=== PATIENT | male | born 1950 | race American Indian/Alaskan Native ===

== ENCOUNTER 2017-01-20 11:28 | Observation (INO) | payer MEDICARE, OTHER ==
--- NOTE | 2017-01-20 12:01 | ED PDOC ---
Arrival/HPI - General Chief Complaint: Abnormal Labs Time Seen by Provider: 01/20/17 11:30 Historian: Patient - History of Present Illness Narrative History of Present Illness (Text): 01/20/17 11:52 A 66 year old male whose past medical history includes, anemia, renal transplant , and blood transfusions, presents to the emergency department for medical clearance by his PMD for anemia. 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 The patient states that he is "mildly fatigued". The patient denies fevers, chills, headache, dizziness, cough, chest pain, abdominal pain, shortness, of breath, hematochezia, nausea, vomiting, diarrhea, or any other complaints. refuses rectal exam. 01/20/17 15:01 Time/Duration: Prior to Arrival Symptom Onset: Sudden Symptom Course: Unchanged Activities at Onset: Rest, Light Context: Home Past Medical History - Provider Review Nursing Documentation Reviewed: Yes - Cardiac Hx Cardiac Disorders: Yes Hx Hypertension: Yes - Pulmonary Hx Respiratory Disorders: No - Neurological Hx Neurological Disorder: No - HEENT Hx HEENT Disorder: Yes (wears glasses) - Renal Hx Renal Disorder: Yes Hx Dialysis: Yes (left arm fistula) Type of Dialysis Access: left arm fistula Date of Last Dialysis Treatment: 10/08/06 Other/Comment: Kidney transplant - Endocrine/Metabolic Hx Endocrine Disorders: Yes Hx Diabetes Mellitus Type 2: Yes - Hematological/Oncological Hx Blood Disorders: Yes Hx Anemia: Yes - Integumentary Hx Dermatological Disorder: No - Musculoskeletal/Rheumatological Hx Musculoskeletal Disorders: No - Gastrointestinal Hx Gastrointestinal Disorders: No - Genitourinary/Gynecological Hx Genitourinary Disorders: Yes Other/Comment: bilateral inguinal hernias (repaired) - Psychiatric Hx Psychophysiologic Disorder: No Hx Substance Use: No - Surgical History Hx Kidney Transplant: Yes Other/Comment: Aortic valve replacement Family/Social History - Physician Review Nursing Documentation Reviewed: Yes Family/Social History: No Known Family HX Smoking Status: Former Smoker Hx Alcohol Use: No Hx Substance Use: No Allergies/Home Meds Allergies/Adverse Reactions: Allergies No Known Allergies Allergy (Verified 01/20/17 11:38) Home Medications: Home Meds Medication Instructions Recorded Confirmed Cinacalcet [Sensipar] 30 mg PO DAILY 11/20/16 01/20/17 Clonidine HCl [Catapres] 0.3 mg PO BID 11/20/16 01/20/17 Cyanocobalamin (Vitamin B-12) 1,000 mcg PO DAILY 11/20/16 01/20/17 [Vitamin B-12] Epoetin Wilmar [Procrit] 40,000 units SQ Q30D 11/20/16 01/20/17 Ezetimibe [Zetia] 10 mg PO DAILY 11/20/16 01/20/17 Furosemide [Lasix] 40 mg PO BID 11/20/16 01/20/17 Glimepiride [amaRYL] 2 mg PO DAILY 11/20/16 01/20/17 Hydralazine HCl [Hydralazine HCl] 25 mg PO BID 11/20/16 01/20/17 Metoprolol Tartrate [Lopressor] 100 mg PO BID 11/20/16 01/20/17 Mycophenolate [Cellcept Cap] 500 mg PO BID 11/20/16 01/20/17 Pravastatin Sodium [Pravachol] 40 mg PO DAILY 11/20/16 01/20/17 Prednisone [Nga] 5 mg PO DAILY 11/20/16 01/20/17 Sulfamethoxazole/Trimethoprim 1 tab PO MWF 11/20/16 01/20/17 [Bactrim DS Tab] Tacrolimus [Prograf Cap] 1 mg PO QPM 11/20/16 01/20/17 Tacrolimus [Prograf Cap] 2 mg PO QAM 11/20/16 01/20/17 amLODIPine [Norvasc] 10 mg PO BID 11/20/16 01/20/17 humALOG 20 units SQ DAILY 11/20/16 01/20/17 Ferrous Gluconate [Fergon] 324 mg PO BID 01/20/17 01/20/17 Review of Systems - Physician Review All systems were reviewed & negative as marked: Yes - Review of Systems Constitutional: absent: Fevers, Night Sweats Respiratory: absent: SOB, Cough Cardiovascular: absent: Chest Pain Gastrointestinal: absent: Abdominal Pain, Diarrhea, Nausea, Vomiting, Hematochezia Neurological: absent: Headache, Dizziness Physical Exam Vital Signs Reviewed: Yes Vital Signs Temp Pulse Resp BP Pulse Ox 01/20/17 11:37 98.9 F 60 16 128/69 99 Temperature: Afebrile Blood Pressure: Normal Pulse: Regular Respiratory Rate: Normal Appearance: Positive for: Well-Appearing, Non-Toxic, Comfortable Pain Distress: None Mental Status: Positive for: Alert and Oriented X 3 - Systems Exam Head: Present: Atraumatic, Normocephalic Pupils: Present: PERRL Extroacular Muscles: Present: EOMI Conjunctiva: Present: Other (mild conjuctival pallor) Mouth: Present: Moist Mucous Membranes Neck: Present: Normal Range of Motion Respiratory/Chest: Present: Clear to Auscultation, Good Air Exchange. No: Respiratory Distress, Accessory Muscle Use Cardiovascular: Present: Regular Rate and Rhythm, Normal S1, S2. No: Murmurs Abdomen: Present: Normal Bowel Sounds. No: Tenderness, Distention, Peritoneal Signs Back: Present: Normal Inspection Upper Extremity: Present: Normal Inspection. No: Cyanosis, Edema Lower Extremity: Present: Normal Inspection. No: Edema Neurological: Present: GCS=15, CN II-XII Intact, Speech Normal Skin: No: Normal Color (mildy pale appearing skin) Psychiatric: Present: Alert, Oriented x 3, Normal Insight, Normal Concentration Medical Decision Making ED Course and Treatment: 01/20/17 12:03 Impression: A 66 year old male advised to come in by PMD for anemia and medical clearance. Plan: -- EKG -- Labs -- Reassess and disposition Prior Visits: Notes and results from previous visits were reviewed. Progress Notes: 01/20/17 12:06: EKG: Ordered, reviewed, and independently interpreted the EKG. Rate : 57 BPM Rhythm : Bradycardic Interpretation : Lateral T/Q- waves Comparison : No previous EKG for comparison. 01/20/17 15:[address] rebollar aware. rquest 2 units. pt declines rectal exam. ekg no previous. trop neg. stable for floor - Lab Interpretations Lab Results: 01/20/17 12:00 01/20/17 12:00 Lab Results 01/20/17 12:00: Blood Type O POSITIVE, Antibody Screen Negative, Crossmatch See Detail, BBK History Checked No verified bt 01/20/17 12:00: Sodium 142, Potassium 4.6, Chloride 103, Carbon Dioxide 24, Anion Gap 20, BUN 68 H, Creatinine 4.5 H, Est GFR ( Amer) 16, Est GFR ( Non-Af Amer) 13, Random Glucose 272 H, Calcium 8.2 L, Total Bilirubin 0.4, AST 44, ALT 24, Alkaline Phosphatase 88, Lactate Dehydrogenase 1612 H, Total Creatine Kinase 141, Troponin I 0.03, Total Protein 6.5, Albumin 4.3, Globulin 2.2, Albumin/Globulin Ratio 2.0 H 01/20/17 12:00: PT 11.3, INR 1.05, APTT 28.4 01/20/17 12:00: WBC 6.8, RBC 2.84 L, Hgb 6.9 L*, Hct 23.9 L, MCV 84.2, MCH 24.3 L, MCHC 28.9 L, RDW 19.7 H, Plt Count 179, Gran % 87.5 H, Lymph % (Auto) 7.7 L, [place] % (Auto) 4.3, Eos % (Auto) 0.4 L, Baso % (Auto) 0.1, Gran # 5.91, Lymph # 0.5 L, [place] # 0.3, Eos # 0.0, Baso # 0.01 I have reviewed the lab results: Yes - EKG Interpretation Interpreted by ED Physician: Yes Type: 12 lead EKG - Medication Orders Current Medication Orders: Amlodipine Besylate (Norvasc) 10 mg PO BID [place] Atorvastatin Calcium (Lipitor) 10 mg PO DIN [place] Cinacalcet (Sensipar) 30 mg PO DAILY [place] Clonidine HCl (Catapres) 0.3 mg PO BID [facility]1983 Cyanocobalamin (Vitamin B12 1000 Mcg Tab) 1,000 mcg PO DAILY [place] Darbepoetin Wilmar (Aranesp) 40,000 mcg SC Q30D [place] Ezetimibe (Zetia) 10 mg PO DAILY [place] Ferrous Gluconate (Fergon) 324 mg PO BID [place] Furosemide (Lasix) 40 mg PO BID [facility] Home Med (Home Med) 0 unit SC DAILY [place] Hydralazine HCl (Apresoline) 25 mg PO BID [place] Metoprolol Tartrate (Lopressor) 100 mg PO BID [place] Mycophenolate Mofetil (Cellcept Cap) 500 mg PO BID [place] Pantoprazole Sodium (Protonix Ec Tab) 20 mg PO 0600,1600 [place] Prednisone (Prednisone Tab) 5 mg PO DAILY [place] Tacrolimus (Prograf Cap) 1 mg PO QPM [place] Tacrolimus (Prograf Cap) 2 mg PO QAM [place] - Scribe Statement The provider has reviewed the documentation as recorded by the Scribe Natalie Foote Provider Scribe Attestation: All medical record entries made by the [place] were at my direction and personally dictated by me. I have reviewed the chart and agree that the record accurately reflects my personal performance of the history, physical exam, medical decision making, and the department course for this patient. I have also personally directed, reviewed, and agree with the discharge instructions and disposition. Disposition/Present on Arrival - Present on Arrival Any Indicators Present on Arrival: No History of DVT/PE: No History of Uncontrolled Diabetes: No Urinary Catheter: No History of Decub. Ulcer: No History Surgical Site Infection Following: None - Disposition Have Diagnosis and Disposition been Completed?: Yes Diagnosis: Anemia Disposition: HOSPITALIZED Disposition Time: 01:30 Condition: STABLE
[2017-01-20 12:07] LABS: ADD MANUAL DIFF? NO
[2017-01-20 12:13] LABS: BASO # 0.01 K/mm3 (0.0-2.0); BASO % 0.1 % (0.0-3.0); EOS % 0.4 % (1.5-5.0); GRAN # 5.91 (1.4-6.5); GRAN % 87.5 % (50.0-68.0); LYMPH # 0.5 (1.2-3.4); LYMPH % 7.7 % (22.0-35.0); MEAN CELL VOLUME 84.2 fl (80.0-105.0); MEAN CORPUSCULAR HEMOGLOBIN 24.3 pg (25.0-35.0); MEAN CORPUSCULAR HGB CONC 28.9 g/dl (31.0-37.0); MONO # 0.3 (0.1-0.6); MONO % 4.3 % (1.0-6.0); PLATELET COUNT 179 10^3/uL (120.0-450.0); RED CELL DISTRIBUTION WIDTH 19.7 % (11.5-14.5)
[2017-01-20 12:20] LABS: BILIRUBIN,TOTAL 0.4 mg/dL (0.2-1.3); CALCIUM 8.2 mg/dL (8.4-10.5); HEMATOCRIT 23.9 % (42.0-52.0); POTASSIUM 4.6 mmol/L (3.6-5.0); TOTAL PROTEIN 6.5 g/dL (5.8-8.3); WHITE BLOOD COUNT 6.8 10^3/ul (4.5-11.0)
[2017-01-20 12:25] LABS: INR 1.05 (0.93-1.08); PARTIAL THROMBOPLASTIN TIME 28.4 Seconds (23.7-30.8)
[2017-01-20 12:31] LABS: TROPONIN I 0.03 ng/mL
[2017-01-20 13:27] LABS: IRON 92 ug/dL (45-180)
[2017-01-20 13:39] VITALS: BMI 18.0
--- NOTE | 2017-01-20 14:02 | CARD ---
APPROVED REPORT EKG Measurement Heart [id number] VT 150P-11 [id number] <Conclusion> Sinus bradycardia Minimal voltage criteria for LVH, may be normal variant Possible Inferior infarct, age undetermined T wave abnormality, consider lateral ischemia Abnormal ECG
[2017-01-20] MEDS: Pantoprazole 20 mg EC Tab PO SCH (15:45)
[2017-01-20] MEDS ORDERED: Insulin Lispro (humaLOG) LOW Coverage SC SCH ×2 (16:30)
[2017-01-20 17:00] LABS: FOLATE 15.2 ng/mL
--- NOTE | 2017-01-21 04:47 | HP ---
HISTORY OF PRESENT ILLNESS: The patient is a 66-year-old male who has been followed up at [facility] in [place]. The patient had blood work done on 01/16/2017. The patient was notified on 01/17/2017 by the patient's doctor at [facility] of a low hemoglobin. The patient was advised to go to the emergency room or hospital for possible admission for blood transfusion. The patient waited until today to come to the hospital due to his 's illness. The patient states that he is asymptomatic without any complaints. The patient came to the emergency room as a walk-in. REVIEW OF SYSTEMS: The patient's 13-system review is negative for chest pain. Negative for shortness of breath. Negative for nausea, vomiting, or diarrhea. Positive for melena secondary to iron tablets. CODE STATUS: FULL CODE. LIVING WILL AND ADVANCE DIRECTIVE: None. ALLERGIES: NONE. HEIGHT: 5 feet 9 inches. WEIGHT: 120. BMI: 18. HOME MEDICATIONS: Ferrous gluconate 324 mg twice a day; Norvasc 10 mg twice a day; Prograf 2 mg in the morning and 1 mg in the night; Bactrim DS 1 tablet Saturday, Saturday, and Saturday; prednisone 5 mg daily; Pravachol 40 mg daily; CellCept 500 mg twice a day; metoprolol 100 mg twice a day; hydralazine 25 mg twice a day; Humalog 20 units subcutaneously daily via the insulin pump; Amaryl 2 mg daily; Lasix 40 mg twice a day; Zetia 10 mg daily; Procrit 40,000 units monthly; vitamin B12 1000 mcg p.o. daily; clonidine 0.3 mg twice a day; and Sensipar 30 mg daily. SOCIAL HISTORY: Former smoker. Negative for substance abuse. Negative for alcohol. FAMILY HISTORY: Not available. OCCUPATIONAL HISTORY: Disabled. PAST MEDICAL AND SURGICAL HISTORY: History of end-stage renal disease, history of renal dialysis dependent, history of renal transplant, history of aortic valve replacement, history of median sternotomy, history of iron deficiency, status post IV Venofer treatment, history of hypertension, history of dyslipidemia, history of insulin-requiring diabetes mellitus, history of vitamin B12 deficiency, and history of secondary hyperparathyroidism. Past medical history is also significant for history of anemia, history of multiple blood transfusion and IV Venofer infusion, history of left upper extremity AV fistula, history of renal transplant 10 years ago, and history of inguinal hernia surgery. The patient's past medical history is significant for anemia of chronic disease. Past medical history is also significant for chronic kidney disease stage IV, history of uncontrolled diabetes mellitus with hemoglobin A1c of 8.3 in September, history of iron deficiency, history of dyslipidemia, history of proteinuria, microscopic hematuria, history of bilateral lower extremity venous stasis, history of left upper extremity AV fistula, and history of right lower quadrant renal transplant. The patient's past medical history is significant for polycystic kidney disease, history of cholangitis, history of questionable diabetic ketoacidosis, status post renal transplant, history of autosomal dominant polycystic kidney disease, history of hyperosmolar nonketotic syndrome, history of hyperkalemia, history of bovine aortic valve replacement, history of cadaveric renal transplant 10 years ago, history of increase anion gap metabolic acidosis, history of hyponatremia, history of hyperkalemia, history of descending aortic aneurysm, history of post renal transplant diabetes mellitus, and history of possible noncompliance, history of intrahepatic biliary duct dilatation, history of hepatic cyst, history of descending thoracic aorta aneurysm dilatation and aneurysm dilatation of the infrarenal abdominal aorta, history of dissecting thoracic abdominal aneurysm, history of prostatomegaly, history of early dilated common bile duct, 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 PHYSICAL EXAMINATION: GENERAL: The patient is seen and examined in room 374, bed 1. The patient is seen lying in the bed. VITAL SIGNS: T-max 98.9, heart rate 57 to 60, blood pressure 128/69, respirations 18, and O2 sat 99% to 100% on room air. HEENT: Head is normocephalic and atraumatic. HEENT examination shows pale conjunctivae. Dry oral mucosa. NECK: No neck rigidity. CHEST: Kyphosis. Positive median sternotomy surgical scar noted. CARDIOVASCULAR: S1 and S2. Positive systolic murmur, left sternal border, right second intercostal space. ABDOMEN: Soft. Positive bowel sounds,Positive mid abdominal pulsation noted. GENITALIA: Male. RECTAL: Deferred. EXTREMITIES: Show 1+ pitting edema of the lower extremities. No calf tenderness. No Homans sign. VASCULAR: Unable to palpate lower extremity pulses. MUSCULOSKELETAL: Shows a body mass index of 18. Cranial nerves II-XII limited. Motor strength appears to be 5/5. Gait examination is not tested. PSYCHIATRIC: Negative. DIAGNOSTIC DATA: EKG shows sinus rhythm, Q-wave in III, and T-wave inversion in aVL, lead I, V5, and V6. The chest x-ray report is pending. CBC shows a hemoglobin and hematocrit 6.9 and 24, platelet 179, granulocytes of 87% segs. PT and PTT 11.3 and 28.4. Chemistry significant for BUN 68, creatinine 4.5, GFR 16, random glucose 272, calcium 8.2, iron 92, TIBC 302, saturation 30. LDH 1612. Troponin is negative at 0.03. Blood type O positive. The patient was seen in the emergency room by Dr. Willard. The patient was typed and cross matched. The patient was ordered transfusion of PRBC. The patient was seen in the emergency room. The patient was advised by the ER physician for need for hospitalization for packed red blood cell transfusion, which he agreed to. IMPRESSION: 1. Recurrent persistent anemia, microcytic to normocytic anemia, status post IV Venofer treatment. 2. Granulocytosis. 3. Chronic kidney disease stage IV. 4. Insulin-requiring diabetes mellitus with hyperglycemia. 5. Sinus bradycardia with age-indeterminate inferior infarct and lateral coronary ischemic changes. 6. History of descending aortic aneurysm and abdominal aortic aneurysm, status post aortic valve replacement. 7. Mild fatigue. 8. Anemia of chronic kidney disease, etiology undetermined. 9. History of insulin-dependent diabetes mellitus, history of hypertension, history of status post cadaveric renal transplant, history of dyslipidemia, history of hypertension, and history of secondary hyperparathyroidism. PLAN: At this time, the patient was admitted to [facility]. The patient has been ordered iron studies, B12, folate, serial labs ordered, tacrolimus level ordered, consultation with gastroenterology Dr. Cordova and nephrology Dr. Sandoval ordered, transfusion of 2 units of PRBC ordered. The patient has resumed on most of his home medications including hydralazine 25 mg twice a day, Aranesp 40 mcg monthly, clonidine 0.3 mg twice a day, CellCept or mycophenolate 500 mg twice a day, and ferrous gluconate 324 mg twice a day. The patient is to be continued on the insulin pump, which he is using from home and as the patient stated that the insulin pump has been run out until tomorrow morning, then the patient will be started on subcutaneous Humalog 20 units with breakfast and the patient will be started on low-dose sliding scale Humalog. Also, the patient's p.o. Lasix was changed to Lasix 40 IV daily, Lipitor 10 mg daily, Lopressor 100 mg twice a day, Norvasc 10 mg twice a day, prednisone 5 mg daily, Prograf 1 mg in the evening and 2 mg a.m., Protonix 20 twice a day, Sensipar 30 mg daily, vitamin B12 1000 mcg p.o. daily, and Zetia 10 mg daily. Chest x-ray report pending. The patient is on renal diet. The patient has been ordered fingerstick blood sugar. Stool for occult blood ordered. The patient will be ordered KRYSTAL stockings for DVT prophylaxis. The patient has been explained about the details of his medical condition, need for further diagnostic therapeutic interventions was explained and discussed with the patient in layman's language. All questions and concerns were answered to his satisfaction. The patient was advised need for gastroenterology evaluation, upper and lower endoscopy, and further investigation about the causes of anemia. At this time, the patient appears to be a little resistant to the diagnostic data which is explained to him and the clinical scenario which is explained to him and the patient has stated to the nurses and me that he is reluctant to stay beyond tomorrow. I have explained to the patient that his hospitalization may be extended until after tomorrow depending upon the patient's clinical condition, hemodynamic status, and recommendation from all the physicians involved in the care of the patient. Dictated and electronically signed, not read. Mart Knox MD [place]
[2017-01-21] MEDS: Pantoprazole 20 mg EC Tab PO SCH (06:25)
[2017-01-21] MEDS ORDERED: Insulin Lispro (humaLOG) LOW Coverage SC SCH (07:00)
[2017-01-21 07:09] LABS: ADD MANUAL DIFF? NO
[2017-01-21 07:18] LABS: BASO # 0.01 K/mm3 (0.0-2.0); BASO % 0.1 % (0.0-3.0); EOS # 0.1 (0.0-0.7); EOS % 1.5 % (1.5-5.0); GRAN # 5.24 (1.4-6.5); GRAN % 76.2 % (50.0-68.0); HEMATOCRIT 30.5 % (42.0-52.0); MEAN CORPUSCULAR HEMOGLOBIN 25.1 pg (25.0-35.0); MEAN CORPUSCULAR HGB CONC 29.5 g/dl (31.0-37.0); MONO # 0.6 (0.1-0.6); MONO % 8.2 % (1.0-6.0); PLATELET COUNT 155 10^3/uL (120.0-450.0); RED CELL DISTRIBUTION WIDTH 17.4 % (11.5-14.5); WHITE BLOOD COUNT 6.9 10^3/ul (4.5-11.0)
[2017-01-21] MEDS ORDERED: Insulin Lispro 1 UNITS/0.01 ML SC SCH ×2 (07:30→10:00)
[2017-01-21] MEDS: Insulin Lispro (humaLOG) LOW Coverage SC SCH ×2 (07:30→13:13)
[2017-01-21 07:41] LABS: ALB/GLOB RATIO 1.5 (1.1-1.8); BILIRUBIN,DIRECT 0.4 mg/dL (0.0-0.4); BILIRUBIN,TOTAL 0.4 mg/dL (0.2-1.3); CALCIUM 8.4 mg/dL (8.4-10.5); MAGNESIUM 1.7 mg/dL (1.7-2.2); POTASSIUM 3.8 mmol/L (3.6-5.0); TOTAL PROTEIN 5.8 g/dL (5.8-8.3)
--- NOTE | 2017-01-21 08:08 | RAD ---
HISTORY: HTN/AVR COMPARISON: No prior. TECHNIQUE: Chest PA and lateral FINDINGS: LUNGS: No active pulmonary disease. PLEURA: No significant pleural effusion identified. No pneumothorax apparent. CARDIOVASCULAR: No radiographic findings to suggest acute or significant cardiovascular disease. Incidental Finding(s): Postoperative changes related to sternotomy. aortic valve prosthesis identified. Normal. OSSEOUS STRUCTURES: No significant abnormalities. VISUALIZED UPPER ABDOMEN: Normal. OTHER FINDINGS: None. IMPRESSION: No active disease.
[2017-01-21 09:22] VITALS: PULSE 67; RESP 19; TEMP 99; O2SAT 98
[2017-01-21] MEDS ORDERED: INSULIN PUMP SC SCH (10:00)
--- NOTE | 2017-01-21 11:24 | CP.PCM.DIS ---
<IrmaLaine - Last Filed: 01/21/17 12:05> Provider - Provider Date of Admission: 01/20/17 12:44 Attending physician: Mart Knox MD Primary care physician: Dr. Knox Consults: GI: Dr. Garrido Nephro: Dr. Wheeler Time Spent in preparation of Discharge (in minutes): 35 Hospital Course - Lab Results Lab Results: Most Recent Lab Values WBC 6.9 10^3/ul (4.5-11.0) 01/21/17 07:07 RBC 3.59 10^6/uL (3.5-6.1) 01/21/17 07:07 Hgb 9.0 g/dL (14.0-18.0) L D 01/21/17 07:07 Hct 30.5 % (42.0-52.0) L 01/21/17 07:07 MCV 85.0 fl (80.0-105.0) 01/21/17 07:07 MCH 25.1 pg (25.0-35.0) 01/21/17 07:07 MCHC 29.5 g/dl (31.0-37.0) L 01/21/17 07:07 RDW 17.4 % (11.5-14.5) H 01/21/17 07:07 Plt Count 155 10^3/uL (120.0-450.0) 01/21/17 07:07 Gran % 76.2 % (50.0-68.0) H 01/21/17 07:07 Lymph % (Auto) 14.0 % (22.0-35.0) L 01/21/17 07:07 [place] % (Auto) 8.2 % (1.0-6.0) H 01/21/17 07:07 Eos % (Auto) 1.5 % (1.5-5.0) 01/21/17 07:07 Baso % (Auto) 0.1 % (0.0-3.0) 01/21/17 07:07 Gran # 5.24 (1.4-6.5) 01/21/17 07:07 Lymph # 1.0 (1.2-3.4) L 01/21/17 07:07 [place] # 0.6 (0.1-0.6) 01/21/17 07:07 Eos # 0.1 (0.0-0.7) 01/21/17 07:07 Baso # 0.01 K/mm3 (0.0-2.0) 01/21/17 07:07 PT 11.3 Seconds (9.9-11.8) 01/20/17 12:00 INR 1.05 (0.93-1.08) 01/20/17 12:00 APTT 28.4 Seconds (23.7-30.8) 01/20/17 12:00 Sodium 143 mmol/L (132-148) 01/21/17 07:07 Potassium 3.8 mmol/L (3.6-5.0) 01/21/17 07:07 Chloride 108 mmol/L (95-110) 01/21/17 07:07 Carbon Dioxide 22 mmol/L (21-33) 01/21/17 07:07 Anion Gap 17 (10-20) 01/21/17 07:07 BUN 64 mg/dL (7-21) H 01/21/17 07:07 Creatinine 4.0 mg/dL (0.5-1.4) H 01/21/17 07:07 Est GFR ( Amer) 18 01/21/17 07:07 Est GFR (Non-Af Amer) 15 01/21/17 07:07 POC Glucose (mg/dL) 64 mg/dL (65-110) L 01/21/17 07:16 Random Glucose 53 mg/dL (70-110) L 01/21/17 07:07 Calcium 8.4 mg/dL (8.4-10.5) 01/21/17 07:07 Magnesium 1.7 mg/dL (1.7-2.2) 01/21/17 07:07 Iron 92 ug/dL (45-180) 01/20/17 12:59 TIBC 302 ug/dL (261-462) 01/20/17 12:59 % Saturation 30 % (20-55) 01/20/17 12:59 Erythropoietin 67.1 mIU/mL (2.6-18.5) H 01/20/17 12:59 Ferritin 103.0 ng/mL 01/20/17 12:59 Total Bilirubin 0.4 mg/dL (0.2-1.3) 01/21/17 07:07 Direct Bilirubin 0.4 mg/dL (0.0-0.4) 01/21/17 07:07 AST 27 U/L (15-59) 01/21/17 07:07 ALT 23 U/L (7-56) 01/21/17 07:07 Alkaline Phosphatase 61 U/L (38-133) 01/21/17 07:07 Lactate Dehydrogenase 1612 U/L (333-699) H 01/20/17 12:00 Total Creatine Kinase 141 U/L (35-230) 01/20/17 12:00 Troponin I 0.03 ng/mL 01/20/17 12:00 Total Protein 5.8 g/dL (5.8-8.3) 01/21/17 07:07 Albumin 3.5 g/dL (3.0-4.8) 01/21/17 07:07 Globulin 2.3 gm/dL 01/21/17 07:07 Albumin/Globulin Ratio 1.5 (1.1-1.8) 01/21/17 07:07 Vitamin B12 > 1000 pg/mL (239-931) H 01/20/17 12:59 Folate 15.2 ng/mL 01/20/17 12:59 Blood Type O POSITIVE 01/20/17 12:00 Blood Type Confirm O POSITIVE 01/20/17 12:58 Antibody Screen Negative 01/20/17 12:00 Crossmatch See Detail 01/20/17 12:00 BBK History Checked No verified bt 01/20/17 12:00 - Hospital Course Hospital Course: This is a 66Y M with PMH HTN, Autosomal dominant polycystic kidney disease, prior ESRD (not on HD anymore), renal transplant, DM, anemia, aortic valve replacement admitted for anemia. Patient has had multiple blood transfusions as well as iron infusions in the past. He has not had a colonoscopy for more than 10 yrs. Patient had 2U PRBC transfused. Hgb became stable. Nephrology was consulted for CKD. GI was consulted for anemia. Patient refused inpatient colonoscopy as well as rectal exam and will follow up as outpatient. He will follow up with Dr. Cordova (GI), Dr. Wheeler (Nephrology) as well as Dr. Knox, PMD. As per GI, patient will have a colonoscopy this week with Dr. Cordova. Medications as per AUG. - Date & Time of H&P Date of H&P: 01/21/17 Time of H&P: 11:25 Discharge Exam - Head Exam Head Exam: NORMAL INSPECTION - Eye Exam Eye Exam: EOMI, Normal appearance, PERRL Pupil Exam: NORMAL ACCOMODATION - ENT Exam ENT Exam: Mucous Membranes Moist - Respiratory Exam Respiratory Exam: Clear to PA & Lateral, NORMAL BREATHING PATTERN, UNREMARKABLE. absent: Rales, Rhonchi, Wheezes - Cardiovascular Exam Cardiovascular Exam: REGULAR RHYTHM, +S1, +S2. absent: Gallop, Rubs, Systolic Murmur - GI/Abdominal Exam GI & Abdominal Exam: Normal Bowel Sounds, Soft, Unremarkable. absent: Firm, Mass, Rebound, Rigid - Rectal Exam Rectal Exam: Deferred (pt refused) - Extremities Exam Extremities exam: normal inspection - Neurological Exam Neurological exam: Alert, CN II-XII Intact, Oriented x3 - Psychiatric Exam Psychiatric exam: Normal Affect, Normal Mood - Skin Skin Exam: Dry, Intact, Normal Color, Warm Discharge Plan - Discharge Medications Prescriptions: Furosemide [Lasix] 20 mg PO BID #30 tab Furosemide [Lasix] 20 mg PO BID #30 tab - Follow Up Plan Condition: STABLE Disposition: HOME/ ROUTINE Instructions: Anemia (DC), Anemia (GEN) Additional Instructions: 1. Continue Home medications 2. Follow up colonoscopy with Dr. Cordova this week 3. Follow up with Dr. Wheeler (Nurse Examiner) this week 4. Follow up with Dr. Knox in 1 week. DISCHARGE HOME CLEARED BY GI AND NEPHROLOGY. FOLLOW UP < AND WITHIN 1 WEEK RESUME ALL HOME MEDS COPY OF RENAL NON DIALYSIS, MODERATE CARB DIET TO PATIENT UPON DISCHARGE. Referrals: Mart Knox MD [Family Provider] - 1 Week (DISCHARGE HOME CLEARED BY GI AND NEPHROLOGY. FOLLOW UP < AND WITHIN 1 WEEK RESUME ALL HOME MEDS COPY OF RENAL NON DIALYSIS, MODERATE CARB DIET TO PATIENT UPON DISCHARGE.) Dandy Wheeler MD [Staff Provider] - 1 Week (DISCHARGE HOME CLEARED BY GI AND NEPHROLOGY. FOLLOW UP < AND DR.MARIZA WITHIN 1 WEEK RESUME ALL HOME MEDS COPY OF RENAL NON DIALYSIS, MODERATE CARB DIET TO PATIENT UPON DISCHARGE.) Mac Cordova MD [Medical Doctor] - 1 Week (DISCHARGE HOME CLEARED BY GI AND NEPHROLOGY. FOLLOW UP < AND WITHIN 1 WEEK RESUME ALL HOME MEDS COPY OF RENAL NON DIALYSIS, MODERATE CARB DIET TO PATIENT UPON DISCHARGE.) <Mart Knox - Last Filed: 02/27/17 20:29> Provider - Provider Date of Admission: 01/20/17 12:44 Attending physician: Mart Knox MD Hospital Course - Lab Results Lab Results: Most Recent Lab Values WBC 6.9 10^3/ul (4.5-11.0) 01/21/17 07:07 RBC 3.59 10^6/uL (3.5-6.1) 01/21/17 07:07 Hgb 9.0 g/dL (14.0-18.0) L D 01/21/17 07:07 Hct 30.5 % (42.0-52.0) L 01/21/17 07:07 MCV 85.0 fl (80.0-105.0) 01/21/17 07:07 MCH 25.1 pg (25.0-35.0) 01/21/17 07:07 MCHC 29.5 g/dl (31.0-37.0) L 01/21/17 07:07 RDW 17.4 % (11.5-14.5) H 01/21/17 07:07 Plt Count 155 10^3/uL (120.0-450.0) 01/21/17 07:07 Gran % 76.2 % (50.0-68.0) H 01/21/17 07:07 Lymph % (Auto) 14.0 % (22.0-35.0) L 01/21/17 07:07 [place] % (Auto) 8.2 % (1.0-6.0) H 01/21/17 07:07 Eos % (Auto) 1.5 % (1.5-5.0) 01/21/17 07:07 Baso % (Auto) 0.1 % (0.0-3.0) 01/21/17 07:07 Gran # 5.24 (1.4-6.5) 01/21/17 07:07 Lymph # 1.0 (1.2-3.4) L 01/21/17 07:07 [place] # 0.6 (0.1-0.6) 01/21/17 07:07 Eos # 0.1 (0.0-0.7) 01/21/17 07:07 Baso # 0.01 K/mm3 (0.0-2.0) 01/21/17 07:07 PT 11.3 Seconds (9.9-11.8) 01/20/17 12:00 INR 1.05 (0.93-1.08) 01/20/17 12:00 APTT 28.4 Seconds (23.7-30.8) 01/20/17 12:00 Sodium 143 mmol/L (132-148) 01/21/17 07:07 Potassium 3.8 mmol/L (3.6-5.0) 01/21/17 07:07 Chloride 108 mmol/L (95-110) 01/21/17 07:07 Carbon Dioxide 22 mmol/L (21-33) 01/21/17 07:07 Anion Gap 17 (10-20) 01/21/17 07:07 BUN 64 mg/dL (7-21) H 01/21/17 07:07 Creatinine 4.0 mg/dL (0.5-1.4) H 01/21/17 07:07 Est GFR ( Amer) 18 01/21/17 07:07 Est GFR (Non-Af Amer) 15 01/21/17 07:07 POC Glucose (mg/dL) 64 mg/dL (65-110) L 01/21/17 07:16 Random Glucose 53 mg/dL (70-110) L 01/21/17 07:07 Calcium 8.4 mg/dL (8.4-10.5) 01/21/17 07:07 Magnesium 1.7 mg/dL (1.7-2.2) 01/21/17 07:07 Iron 92 ug/dL (45-180) 01/20/17 12:59 TIBC 302 ug/dL (261-462) 01/20/17 12:59 % Saturation 30 % (20-55) 01/20/17 12:59 Erythropoietin 67.1 mIU/mL (2.6-18.5) H 01/20/17 12:59 Ferritin 103.0 ng/mL 01/20/17 12:59 Total Bilirubin 0.4 mg/dL (0.2-1.3) 01/21/17 07:07 Direct Bilirubin 0.4 mg/dL (0.0-0.4) 01/21/17 07:07 AST 27 U/L (15-59) 01/21/17 07:07 ALT 23 U/L (7-56) 01/21/17 07:07 Alkaline Phosphatase 61 U/L (38-133) 01/21/17 07:07 Lactate Dehydrogenase 1612 U/L (333-699) H 01/20/17 12:00 Total Creatine Kinase 141 U/L (35-230) 01/20/17 12:00 Troponin I 0.03 ng/mL 01/20/17 12:00 Total Protein 5.8 g/dL (5.8-8.3) 01/21/17 07:07 Albumin 3.5 g/dL (3.0-4.8) 01/21/17 07:07 Globulin 2.3 gm/dL 01/21/17 07:07 Albumin/Globulin Ratio 1.5 (1.1-1.8) 01/21/17 07:07 Vitamin B12 > 1000 pg/mL (239-931) H 01/20/17 12:59 Folate 15.2 ng/mL 01/20/17 12:59 Tacrolimus (LC/MS/MS) 2.5 mcg/L (5.0-20.0) L 01/20/17 12:59 Blood Type O POSITIVE 01/20/17 12:00 Blood Type Confirm O POSITIVE 01/20/17 12:58 Antibody Screen Negative 01/20/17 12:00 Crossmatch See Detail 01/20/17 12:00 BBK History Checked No verified bt 01/20/17 12:00 Attending/Attestation - Attestation I have personally seen and examined this patient.: Yes I have fully participated in the care of the patient.: Yes I have reviewed all pertinent clinical information, including history, physical exam and plan: Yes
[2017-01-21] MEDS ORDERED: Darbepoetin Alfa 100 mcg/ml Inj SC ONE (11:58)
[2017-01-21 13:14] VITALS: BP 130/78
--- NOTE | 2017-01-21 13:47 | CP.PCM.CON ---
<Delores So - Last Filed: 01/21/17 13:47> History of Present Illness - History of Present Illness History of Present Illness: Seen and examined at the bedside earlier this morning. The chart was reviewed. Request for GI consult: Anemia , aortic valve replacement HPI: This is a 66-year-old male with a past medical history of polycystic kidney status post kidney transplant, chronic renal disease, aortic valve replacement, iron deficiency anemia, patient had outpatient blood work done on January 16, 2017 and notified of abnormal labs and advised to go to the ER by his primary doctor regarding further evaluation of low hemoglobin. the patient did not go for evaluation right away as his was in the hospital. The patient denies any nausea, vomiting, or abdominal pain. No reports of any melena or bright red blood per rectum. His last colonoscopy was greater than 10 years ago prior to his kidney transplant. No complaints of any acid reflux, shortness of breath or chest pain. On admission he came with hemoglobin of 6.9 , status post 2 units of packed RBCs. He did report having outpatient iron infusions. Past medical history: Aortic valve replacement, polycystic kidney, status post kidney transplant, chronic renal disease, iron deficiency anemia diabetes mellitus, dyslipidemia,abdominal aortic aneurysm with aortic dissection Surgical history: Kidney transplant, aortic valve replacement, bilateral inguinal hernia repair, last colonoscopy greater than 10 years ago Family history: Noncontributory at this time Allergies: No known drug allergies Social history: Former smoker, denies EtOH or substance abuse Medications: Reviewed as per MAR ROS: Systems reviewed with positive findings see HPI Past Patient History - Past Social History Smoking Status: Former Smoker - CARDIAC Hx Cardiac Disorders: Yes Hx Hypertension: Yes - PULMONARY Hx Respiratory Disorders: No - NEUROLOGICAL Hx Neurological Disorder: No - HEENT Hx HEENT Problems: Yes (wears glasses) - RENAL Hx Chronic Kidney Disease: Yes Hx Dialysis: Yes (left arm fistula) Type of Dialysis Access: left arm fistula Date of Last Dialysis Treatment: 10/08/06 Other/Comment: Kidney transplant - ENDOCRINE/METABOLIC Hx Endocrine Disorders: Yes Hx Diabetes Mellitus Type 2: Yes - HEMATOLOGICAL/ONCOLOGICAL Hx Blood Disorders: Yes Hx Anemia: Yes - INTEGUMENTARY Hx Dermatological Problems: No - MUSCULOSKELETAL/RHEUMATOLOGICAL Hx Musculoskeletal Disorders: No - GASTROINTESTINAL Hx Gastrointestinal Disorders: No - GENITOURINARY/GYNECOLOGICAL Hx Genitourinary Disorders: Yes Other/Comment: bilateral inguinal hernias (repaired) - PSYCHIATRIC Hx Psychophysiologic Disorder: No Hx Substance Use: No - SURGICAL HISTORY Hx Kidney Transplant: Yes Other/Comment: Aortic valve replacement Meds Home Medications: Home Medication List Medication Instructions Recorded Confirmed Type Cyanocobalamin [Vitamin B12 1000 1,000 mcg PO DAILY tab 01/21/17 Rx mcg Tab] Furosemide [Lasix] 20 mg PO BID #30 tab 01/21/17 Rx Furosemide [Lasix] 20 mg PO BID #30 tab 01/21/17 Rx Allergies/Adverse Reactions: Allergies Allergy/AdvReac Type Severity Reaction Status Date / Time No Known Allergies Allergy Verified 01/20/17 11:38 - Medications Medications: Current Medications Amlodipine Besylate (Norvasc) 10 mg PO BID [facility] Last Admin: 01/21/17 10:26 Dose: 10 mg Atorvastatin Calcium (Lipitor) 10 mg PO DIN [facility] Cinacalcet (Sensipar) 30 mg PO DAILY [facility] Last Admin: 01/21/17 10:27 Dose: 30 mg Clonidine HCl (Catapres) 0.3 mg PO BID [facility] Last Admin: 01/21/17 10:23 Dose: 0.3 mg Cyanocobalamin (Vitamin B12 1000 Mcg Tab) 1,000 mcg PO DAILY [facility] Last Admin: 01/21/17 10:27 Dose: 1,000 mcg Darbepoetin [place] (Aranesp) 40,000 mcg SC Q30D [facility] Ezetimibe (Zetia) 10 mg PO DAILY [facility] Last Admin: 01/21/17 10:27 Dose: 10 mg Ferrous Gluconate (Fergon) 324 mg PO BID [facility] Last Admin: 01/21/17 10:24 Dose: 324 mg Furosemide (Lasix) 20 mg PO BID [facility] Home Med (Home Med) 0 unit SC DAILY [facility] Hydralazine HCl (Apresoline) 25 mg PO BID [facility] Last Admin: 01/21/17 10:22 Dose: 25 mg Insulin Human Lispro (Humalog) 20 units SC ACB [facility] Insulin Human Lispro (Humalog Low) 0 units SC ACHS [facility] Metoprolol Tartrate (Lopressor) 100 mg PO BID [facility] Last Admin: 01/21/17 10:25 Dose: 100 mg Mycophenolate Mofetil (Cellcept Cap) 500 mg PO BID [facility] Last Admin: 01/21/17 10:24 Dose: 500 mg Pantoprazole Sodium (Protonix Ec Tab) 20 mg PO 0600,1600 [facility] Last Admin: 01/21/17 06:25 Dose: 20 mg Prednisone (Prednisone Tab) 5 mg PO DAILY [facility] Last Admin: 01/21/17 10:26 Dose: 5 mg Tacrolimus (Prograf Cap) 1 mg PO QPM [facility] Last Admin: 01/20/17 18:27 Dose: 1 mg Tacrolimus (Prograf Cap) 2 mg PO QAM [facility] Last Admin: 01/21/17 10:27 Dose: 2 mg Physical Exam - Constitutional Appears: No Acute Distress - Head Exam Head Exam: NORMOCEPHALIC - Eye Exam Eye Exam: Normal appearance. absent: Scleral icterus - ENT Exam ENT Exam: Mucous Membranes Moist - Neck Exam Neck exam: Positive for: Normal Inspection - Respiratory Exam Respiratory Exam: Clear to Auscultation Bilateral, NORMAL BREATHING PATTERN. absent: Respiratory Distress - Cardiovascular Exam Cardiovascular Exam: +S1, +S2 - GI/Abdominal Exam GI & Abdominal Exam: Normal Bowel Sounds, Soft. absent: Tenderness Additional comments: LUQ insulin pump - Rectal Exam Additional comments: refused - Extremities Exam Extremities exam: Positive for: pedal pulses present. Negative for: calf tenderness, pedal edema - Neurological Exam Neurological exam: Alert, Oriented x3 - Skin Skin Exam: Dry, Warm Results - Vital Signs Recent Vital Signs: Last Vital Signs Temp 99 F 01/21/17 08:00 Pulse 67 01/21/17 10:22 Resp 19 01/21/17 08:00 BP 138/71 01/21/17 10:26 Pulse Ox 98 01/21/17 08:00 - Labs Result Diagrams: 01/21/17 07:07 01/21/17 07:07 Labs: Laboratory Results - last 24 hr 01/20/17 01/20/17 01/20/17 12:58 12:59 12:59 WBC RBC Hgb Hct MCV MCH MCHC RDW Plt Count Gran % Lymph % (Auto) [place] % (Auto) Eos % (Auto) Baso % (Auto) Gran # Lymph # [place] # Eos # Baso # Sodium Potassium Chloride Carbon Dioxide Anion Gap BUN Creatinine Est GFR ( Amer) Est GFR (Non-Af Amer) POC Glucose (mg/dL) Random Glucose Calcium Magnesium Iron TIBC % Saturation Erythropoietin 67.1 H Ferritin 103.0 Total Bilirubin Direct Bilirubin AST ALT Alkaline Phosphatase Total Protein Albumin Globulin Albumin/Globulin Ratio Vitamin B12 > 1000 H Folate 15.2 Blood Type Confirm O POSITIVE 01/20/17 01/20/17 01/20/17 12:59 16:26 21:42 WBC RBC Hgb Hct MCV MCH MCHC RDW Plt Count Gran % Lymph % (Auto) [place] % (Auto) Eos % (Auto) Baso % (Auto) Gran # Lymph # [place] # Eos # Baso # Sodium Potassium Chloride Carbon Dioxide Anion Gap BUN Creatinine Est GFR ( Amer) Est GFR (Non-Af Amer) POC Glucose (mg/dL) 162 H 128 H Random Glucose Calcium Magnesium Iron 92 TIBC 302 % Saturation 30 Erythropoietin Ferritin Total Bilirubin Direct Bilirubin AST ALT Alkaline Phosphatase Total Protein Albumin Globulin Albumin/Globulin Ratio Vitamin B12 Folate Blood Type Confirm 01/21/17 01/21/17 01/21/17 07:07 07:07 07:16 WBC 6.9 RBC 3.59 Hgb 9.0 L D Hct 30.5 L MCV 85.0 MCH 25.1 MCHC 29.5 L RDW 17.4 H Plt Count 155 Gran % 76.2 H Lymph % (Auto) 14.0 L [place] % (Auto) 8.2 H Eos % (Auto) 1.5 Baso % (Auto) 0.1 Gran # 5.24 Lymph # 1.0 L [place] # 0.6 Eos # 0.1 Baso # 0.01 Sodium 143 Potassium 3.8 Chloride 108 Carbon Dioxide 22 Anion Gap 17 BUN 64 H Creatinine 4.0 H Est GFR ( Amer) 18 Est GFR (Non-Af Amer) 15 POC Glucose (mg/dL) 64 L Random Glucose 53 L Calcium 8.4 Magnesium 1.7 Iron TIBC % Saturation Erythropoietin Ferritin Total Bilirubin 0.4 Direct Bilirubin 0.4 AST 27 ALT 23 Alkaline Phosphatase 61 Total Protein 5.8 Albumin 3.5 Globulin 2.3 Albumin/Globulin Ratio 1.5 Vitamin B12 Folate Blood Type Confirm Assessment & Plan - Assessment and Plan (Free Text) Assessment: Assessment: Anemia,history of iron deficiency Chronic kidney disease History of polycystic kidney disease status post kidney transplant History of aortic valve replacement history of Abdominal aortic aneurysm Plan: Patient is on iron supplements and B12 supplement continue PPI he is on Protonix 20 twice a day Monitor H&H and for overt GI bleed Detailed discussion with patient regarding having GI workup for anemia done as inpt vs outpt, patient is adamant about having EGD and colonoscopy as an outpatient, his was just recently released from the hospital. Dr. Solis was present during the discussion. Will give patient outpatient date for EGD and colonoscopy. discussed with patient regarding history of abdominal aortic aneurysm, the patient states that in May 2016 he saw a doctor at the hospital by the name of Dr. Dewitt, he gave the number of [phone], he states he was supposed to follow up outpatient but multiple events occurred and he has not followed through yet. Thank you for this consult and for allowing us to participate in your patient's care, we will give further recommendations based upon clinical course. Seen and discussed with Dr. Cordova. <Mac Cordova V - Last Filed: 01/21/17 22:36> Results - Vital Signs Recent Vital Signs: Last Vital Signs Temp 99 F 01/21/17 08:00 Pulse 67 01/21/17 10:22 Resp 19 01/21/17 08:00 BP 130/78 01/21/17 10:30 Pulse Ox 98 01/21/17 08:00 - Labs Result Diagrams: 01/21/17 07:07 01/21/17 07:07 Labs: Laboratory Results - last 24 hr 01/20/17 01/20/17 01/21/17 12:59 12:59 07:07 WBC 6.9 RBC 3.59 Hgb 9.0 L D Hct 30.5 L MCV 85.0 MCH 25.1 MCHC 29.5 L RDW 17.4 H Plt Count 155 Gran % 76.2 H Lymph % (Auto) 14.0 L [place] % (Auto) 8.2 H Eos % (Auto) 1.5 Baso % (Auto) 0.1 Gran # 5.24 Lymph # 1.0 L [place] # 0.6 Eos # 0.1 Baso # 0.01 Sodium Potassium Chloride Carbon Dioxide Anion Gap BUN Creatinine Est GFR ( Amer) Est GFR (Non-Af Amer) POC Glucose (mg/dL) Random Glucose Calcium Magnesium Erythropoietin 67.1 H Total Bilirubin Direct Bilirubin AST ALT Alkaline Phosphatase Total Protein Albumin Globulin Albumin/Globulin Ratio Tacrolimus (LC/MS/MS) 2.5 L 01/21/17 01/21/17 07:07 07:16 WBC RBC Hgb Hct MCV MCH MCHC RDW Plt Count Gran % Lymph % (Auto) [place] % (Auto) Eos % (Auto) Baso % (Auto) Gran # Lymph # [place] # Eos # Baso # Sodium 143 Potassium 3.8 Chloride 108 Carbon Dioxide 22 Anion Gap 17 BUN 64 H Creatinine 4.0 H Est GFR ( Amer) 18 Est GFR (Non-Af Amer) 15 POC Glucose (mg/dL) 64 L Random Glucose 53 L Calcium 8.4 Magnesium 1.7 Erythropoietin Total Bilirubin 0.4 Direct Bilirubin 0.4 AST 27 ALT 23 Alkaline Phosphatase 61 Total Protein 5.8 Albumin 3.5 Globulin 2.3 Albumin/Globulin Ratio 1.5 Tacrolimus (LC/MS/MS) Attending/Attestation - Attestation I have personally seen and examined this patient.: Yes I have fully participated in the care of the patient.: Yes I have reviewed all pertinent clinical information: Yes Notes (Text): This patient was seen and evaluated here earlier, discussed with the resident. This 66-year-old patient with history of polycystic kidney status post renal transplant,, renal insufficiency. Past multifactorial anemia history of iron deficiency pattern has multiple infusions I and also on Procrit. Patient was admitted with severe anemia status post transfusion J consult was requested for evaluation for endocrine deficiency anemia. Patient also has history of abdominal aortic aneurysm patient was evaluated by Dr. Dewitt, vascular surgeon in the past. On examination abdomen soft transplant kidney palpable there is a pulsatile mass. I have discussed with the fish egg packer. He is trying to get his previous records regarding aneurysm. Patient would clearly benefit from endoscopy and colonoscopy however important to know the status of the abdominal aortic aneurysm prior o the colonoscopic evaluation. Would consider repeating imaging studies ultrasound to evaluate aneurysm if needed after reviewing the previous workup before the colonoscopy We'll also discuss with the Dr. Knox regarding this patient
--- NOTE | 2017-01-21 20:51 | CON ---
DATE: 01/21/2017 NEPHROLOGY CONSULTATION HISTORY OF PRESENT ILLNESS: A 66-year-old male with past medical history of hypertension, CKD stage IV/V, status post renal allograft (2006), post transplant diabetes, anemia, aortic valve replacement (2002), and abnormal aortic aneurysm presented after being found to have severe anemia by transplant baseball glove stuffer and referred to the ER. Nephrology service is being consulted for advanced CKD management. The patient has been receiving Aranesp 100 mcg monthly and has been loaded with IV iron recently; however, the patient was still found to have low hemoglobin. Denies any overt blood in stool, although, has not had a colonoscopy recently. The patient reports feeling lethargic. The patient was transfused 2 units PRBC yesterday and this morning reports energy level is improved on ambulation. The patient otherwise reports feeling well, tolerating diet. PAST MEDICAL HISTORY: As above. PAST SURGICAL HISTORY: Aortic valve replacement. FAMILY HISTORY: SOCIAL HISTORY: REVIEW OF SYSTEMS: CONSTITUTIONAL: Appetite well. HEENT: No change in vision. No difficulty swallowing. RESPIRATORY: No cough. No difficulty breathing. CARDIOVASCULAR: No chest pain, occasional palpitations present. GI: No nausea, vomiting or diarrhea. : Slow urinary stream, on Flomax. MUSCULOSKELETAL: No back pain. No knee pains. SKIN: No itching or rashes. HEMATOLOGIC: No bruising. PSYCHIATRIC: No depression. PHYSICAL EXAMINATION VITAL SIGNS: This morning, blood pressure 138/71, heart rate 67, respirations 19, temperature 99, O2 sat 98% on room air. GENERAL: No distress. Speaking comfortably in full sentences. Alert and oriented x3. HEENT: Moist mucus membranes. Nonicteric. No cervical lymphadenopathy. RESPIRATORY: Lungs clear to auscultation bilaterally. No rales. No rhonchi. No wheezes. CARDIOVASCULAR: Loud systolic murmur present. Regular rate and rhythm. GI: Abdomen soft. Large pulsatile mass palpated. : No bladder distention. NEUROLOGIC: No asterixis. SKIN: Warm. No cyanosis. EXTREMITIES: Moderate bilateral lower leg edema, unchanged. PSYCHIATRIC: Normal mood, normal affect. LABORATORY DATA: This morning, WBC 6.9, hemoglobin 9.0, hematocrit 30.5, platelets 155. Chemistry panel; sodium 143, potassium 3.8, chloride 108, bicarbonate 22, BUN 64, creatinine 4.0, glucose 53, calcium 8.4, magnesium 1.7, albumin 3.5. Iron studies from yesterday; iron saturation 30%, iron 92, PRBC 302. Chest x-ray from yesterday; clear, no overt infiltrate. ASSESSMENT AND PLAN: 1. Chronic kidney disease, stage IV/V, advanced renal insufficiency of transplanted kidney. Renal function is relatively stable of late. No indication to start dialysis at this point. Stable electrolyte and volume status. We will follow up as outpatient, avoiding excess diuretics in order to preserve renal function. 2. Status post renal allograft. The patient has been on immunosuppressive agents, tacrolimus 2 mg in a.m. and 1 mg in p.m., CellCept 500 mg twice daily, and prednisone 5 mg daily. We will continue the same. 3. Hypertension. Currently normotensive on amlodipine 10 mg b.i.d., clonidine 0.3 mg b.i.d., hydralazine 25 mg b.i.d., and metoprolol 100 mg b.i.d. On Lasix 20 mg b.i.d. at home. We will continue the same medications avoiding excessive diuresis as mentioned above. 4. Chronic kidney disease, mineral bone disease. On Sensipar 30 mg daily. Continue the same. 5. Anemia secondary to advanced chronic kidney disease as well as being iron deficient from iron studies seen previously. The patient needs colonoscopy; however, in the setting of having a large abdominal aortic aneurysm, which per outside records is 7.2 cm, we will discuss with patient's vascular surgeon as to whether this is safe colonoscopy to be done as outpatient. 6. Abdominal aortic aneurysm. The patient has a large pulsatile abdominal mass. We are supposed to have followup of the abdominal aortic aneurysm but have not done so. We will discuss with vascular surgeon. Dandy Wheeler MD
--- NOTE | 2017-01-22 12:00 | DS ---
LOCATION: The patient was seen in room 374, bed 1. HISTORY OF PRESENT ILLNESS: The patient is seen lying in the bed. The patient denies any chest pain and denies shortness of breath. Denies nausea, vomiting, diarrhea or constipation. Denies hemoptysis, hematemesis or melena. The patient received packed red blood cell transfusion which ordered without any adverse events. PHYSICAL EXAMINATION: VITAL SIGNS: The patient is afebrile in the last 24 hours. Heart rate is *------*. Blood pressure is 118/61, 129/74 and 138/71, respirations are 18, and O2 saturation is 98%. HEAD: Normocephalic and atraumatic. HEENT: Examination shows pinkish conjunctivae and anicteric sclerae. No oropharyngeal lesion. NECK: No neck rigidity. CHEST: Kyphosis. Positive medial sternotomy surgical scar. CARDIOVASCULAR: S1 and S2, positive systolic murmur in the left sternal border, right second intercostal space. LUNGS: Examination shows no rales, crackles or wheezing. ABDOMEN: Soft. Positive bowel sounds. No epigastric tenderness. No periumbilical tenderness. No guarding. No rigidity. No rebound tenderness. No costovertebral tenderness. GENITALIA: Male. RECTAL: Examination is deferred. EXTREMITIES: Shows trace positive swelling of the lower extremity right more than the left. VASCULAR: Palpable pulses. NEUROLOGIC: The patient is alert, awake, and oriented x3. MUSCULOSKELETAL: Shows a body mass index of 18. Cranial II through XII limited. Gait examination not tested. DIAGNOSTIC DATA: On 01/21/2017, WBC of 6.9, hemoglobin and hematocrit of 9 and 30.5, and platelets of 155 with granulocytes of 76%. Sodium of 143, potassium of 3.8, chloride of 108, CO2 of 22, and anion gap is 17. BUN is 64, creatinine is 4.0, and GFR is 18. Random glucose of 128 and 162. Iron is 92, TIBC is 302, saturation is 30, and erythropoietin is 67. Iron saturation is low and ferritin is 103. B12 is greater than 1000 and folate is 15.2. Chest x-ray shows postoperative changes of median sternotomy, aortic valve prosthesis noted. EKG done and shows sinus bradycardia, inferior wall MA age indeterminate, lateral coronary ischemic changes. FINAL IMPRESSION, PLAN AND DISCHARGE DIAGNOSES: 1. Recurrent, persistent microcytic to normocytic anemia. 2. Status post intravenous Venofer treatment as an outpatient. 3. Status post packed red blood cells transfusion x2. 4. Hypertension. 5. Granulocytosis. 6. Chronic kidney disease stage IV, status post cadaveric renal transplant. 7. Sinus bradycardia with left ventricular hypertrophy and hypertensive cardiovascular disease with age indeterminate inferior infarct and lateral coronary ischemic changes. 8. Status post bovine aortic valve replacement and prosthesis. 9. History of iron deficiency anemia. 10. Hypertension. 11. Status post renal transplant. 12. Dyslipidemia. 1. Recurrent persistent anemia, microcytic to normocytic anemia, status post IV Venofer treatment. 2. Granulocytosis. 3. Chronic kidney disease stage IV. 4. Insulin-requiring diabetes mellitus with hyperglycemia. 5. Sinus bradycardia with age-indeterminate inferior infarct and lateral coronary ischemic changes. 6. History of descending aortic aneurysm and abdominal aortic aneurysm, status post aortic valve replacement. 7. Mild fatigue. 8. Anemia of chronic kidney disease, etiology undetermined. 9. History of insulin-dependent diabetes mellitus, history of hypertension, history of status post cadaveric renal transplant, history of dyslipidemia, history of hypertension, and history of secondary hyperparathyroidism. PLAN: At this time, the patient is awaiting for gastroenterology and nephrology evaluation. The patient will be considered for discharge after cleared by GI and nephrology. The patient has been advised to followup with Dr. Knox, Dr. Wheeler, and Dr. Schulz within 1 week. The patient is advised to resume all home medications. The patient has been extensively explained about his diagnosis, need for outpatient close followup, need for complete and full gastroenterology workup including endoscopy, colonoscopy, and further diagnostic therapeutic intervention for investigation of the cause of anemia. The patient was also advised about outpatient cardiology followup to schedule elective noninvasive cardiac testing which was explained to him at the time of admission because of abnormal EKG. The patient's current medications are as follows; hydralazine 25 mg twice a day, Aranesp *------* once a month, clonidine 0.3 mg twice a day, Cellcept 500 mg twice a day, Fergon (ferrous gluconate) 324 mg twice a day, insulin pump which the patient takes everyday, Lasix decreased to 20 mg twice a day by Dr. Wheeler, Lipitor 10 mg daily, Lopressor 100 mg twice day, Norvasc 10 mg twice a day, prednisone 5 mg daily, Prograf 2 mg a.m. and 1 mg p.m., Protonix 20 mg twice a day, Sensipar 30 mg daily, vitamin B12 1000 mcg daily which I would recommend to hold, and Zetia 10 mg daily. In addition, the patient is to resume his Norvasc 10 mg twice day, Sensipar 30 mg daily, clonidine 0.3 twice a day, vitamin B12 1000 mcg was recommended to be held, Procrit [id number] monthly, Zetia 10 mg daily, Lasix decreased to 20 mg twice a day by Dr. Wheeler. Procrit [id number] subcutaneously monthly, Zetia 10 mg daily, Amaryl 2 mg daily, Humalog pump 20 units subcutaneously daily, hydralazine 25 twice a day, Lopressor 100 mg twice a day, Cellcept 500 mg twice a day, Pravachol 40 mg daily, prednisone 5 mg daily, Bactrim DS 1 tablet Saturday, Saturday and Saturday, and Prograf 2 mg morning and 1 mg p.m. The patient will be discharged home on above dictated medicines. The patient's discharge medications are as per updated ambulatory orders. The patient is to resume his Pravachol 40 mg daily, prednisone 5 mg daily, Prograf (tacrolimus) 1 mg p.m. and 2 mg a.m. Amaryl 2 mg daily and Humalog 20 units via the insulin pump. Time spent in the entire discharge process is more than 45 minutes. Dictated and electronically signed, not read. Mart Knox MD MTDD
[2017-02-19] MEDS ORDERED: Darbepoetin Alfa 100 mcg/ml Inj SC SCH (10:00)
== END 2017-01-21 13:15 | disposition home or self-care (01) ==
LOC: ED 11:28 → ERH 12:44 → 3RSO 13:53
PROVIDERS: ADMIT Internal Medicine; ATTEND Internal Medicine
DX: D50.9 Iron deficiency anemia, unspecified (principal); D63.1 Anemia in chronic kidney disease; E11.22 Type 2 diabetes mellitus with diabetic chronic kidney disease; E11.65 Type 2 diabetes mellitus with hyperglycemia; E78.5 Hyperlipidemia, unspecified; Q61.2 Polycystic kidney, adult type; N18.4 Chronic kidney disease, stage 4 (severe); I12.9 Hypertensive chronic kidney disease with stage 1 through stage 4 chronic kidney disease, or unspecified chronic kidney disease; Z94.0 Kidney transplant status; I87.8 Other specified disorders of veins; N25.81 Secondary hyperparathyroidism of renal origin; Z79.4 Long term (current) use of insulin; Z79.84 Long term (current) use of oral hypoglycemic drugs; Z79.899 Other long term (current) drug therapy; Z86.79 Personal history of other diseases of the circulatory system; Z87.891 Personal history of nicotine dependence; Z95.2 Presence of prosthetic heart valve; Z95.3 Presence of xenogenic heart valve; Z96.41 Presence of insulin pump (external) (internal); R00.1 Bradycardia, unspecified; I51.7 Cardiomegaly
CPT/HCPCS: 36415; 36430; 71020; 80053; 80197; 82248; 82550; 82607; 82668; 82728; 82746; 82948; 83540; 83550; 83615; 83735; 84484; 85025; 85610; 85730; 86850; 86900; 86920; 93005; 96372; 96374; 99283; G0378; J0881; J1940; J7507; J7517; P9016

== ENCOUNTER 2017-02-27 06:10 | Inpatient (IN) | payer MEDICARE, OTHER ==
[2017-02-27 06:19] VITALS: BMI 26.4
--- NOTE | 2017-02-27 06:24 | EDPD ---
HPI Stroke - General Time Seen by Provider: 02/27/17 06:11 Historian: EMS - History of Present Illness Narrative History of Present Illness (Free Text): 02/27/17 06:21 Pt. to ED BIBA for possible CVA.Pt. as per collateral information last seen by family last night before bed.Pt. was his normal self.This am upon awakening pt. was noted to be confused,non verbal with questionable right sided weakness.Pt. with significant PMHX, ESRD,renal transplant,anemia,HTN,Aortic aneurysm.Pt. upon arrival with noted aphasia,right sided hemiparesis.Code stroke was called. Onset:: Yesterday Timing: Persistent rTPA Inclusion/Exclusion - Refusal of Treatment Patient Refused Treatment: No - Inclusion Criteria for Altepase Patient is 18 years or Older: Yes The Clinical Diagnosis of Ischemic Stroke That is Causing a Potentially Disabling Neurological Deficit: Yes Time of Onset is Well Established to be Less Than 270 Minute Before Treatment Would Begin: No Risk/Benefit Discussed With Patient/Family Member Present: No - Exclusion Criteria for Altepase Uncontrolled Hypertension at Time of Treatment (Systolic BP above 185 or Diastolic BP above 110 mmHg): No Active Internal Bleeding: No Known Bleeding Diathesis Including but Not Limited to: Platelets Below 100,000/ mm,PTT Above 40 sec After Heparin Use, Current Use of Oral Anitcoagulant With INR Greater Than 1.7 or PT Greater Than 15 secs: No Evidence of an Intracranial Hemorrhage: No Evidence of Major Acute Infarct With Signs Greater Than 1/3 MCA Territory: No Suspicion of Subarachnoid Hemorrhage on Pretreatment Evaluation Even if CT Head Negative For Hemorrhage: No - Warning to TPA With Conditions Following Conditions Weighed Against Anticipated Benefit: No Past Medical History - Provider Review Nursing Documentation Reviewed: Yes - Cardiac Hx Cardiac Disorders: Yes Hx Hypertension: Yes - Pulmonary Hx Respiratory Disorders: No - Neurological Hx Neurological Disorder: No - HEENT Hx HEENT Disorder: Yes (wears glasses) - Renal Hx Renal Disorder: Yes Hx Dialysis: Yes (left arm fistula) Date of Last Dialysis Treatment: 10/08/06 Other/Comment: Kidney transplant - Endocrine/Metabolic Hx Endocrine Disorders: Yes Hx Diabetes Mellitus Type 2: Yes - Hematological/Oncological Hx Blood Disorders: Yes Hx Anemia: Yes - Integumentary Hx Dermatological Disorder: No - Musculoskeletal/Rheumatological Hx Musculoskeletal Disorders: No - Gastrointestinal Hx Gastrointestinal Disorders: No - Genitourinary/Gynecological Hx Genitourinary Disorders: Yes Other/Comment: bilateral inguinal hernias (repaired) - Psychiatric Hx Psychophysiologic Disorder: No Hx Substance Use: No - Surgical History Hx Kidney Transplant: Yes Other/Comment: Aortic valve replacement Family/Social History - Family/Social History Family History: Diabetes, Hypertension Allergies/Home Meds Allergies/Adverse Reactions: Allergies No Known Allergies Allergy (Verified 01/20/17 11:38) Home Medications: Home Meds Medication Instructions Recorded Confirmed Cinacalcet [Sensipar] 30 mg PO DAILY 11/20/16 01/20/17 Clonidine HCl [Catapres] 0.3 mg PO BID 11/20/16 01/20/17 Epoetin [place] [Procrit] 40,000 units SQ Q30D 11/20/16 01/20/17 Ezetimibe [Zetia] 10 mg PO DAILY 11/20/16 01/20/17 Glimepiride [amaRYL] 2 mg PO DAILY 11/20/16 01/20/17 Hydralazine HCl 25 mg PO BID 11/20/16 01/20/17 Metoprolol Tartrate [Lopressor] 100 mg PO BID 11/20/16 01/20/17 Mycophenolate [Cellcept Cap] 500 mg PO BID 11/20/16 01/20/17 Pravastatin Sodium [Pravachol] 40 mg PO DAILY 11/20/16 01/20/17 Prednisone [Nga] 5 mg PO DAILY 11/20/16 01/20/17 Sulfamethoxazole/Trimethoprim 1 tab PO MWF 11/20/16 01/20/17 [Bactrim DS Tab] Tacrolimus [Prograf Cap] 1 mg PO QPM 11/20/16 01/20/17 Tacrolimus [Prograf Cap] 2 mg PO QAM 11/20/16 01/20/17 amLODIPine [Norvasc] 10 mg PO BID 11/20/16 01/20/17 humALOG 20 units SQ DAILY 11/20/16 01/20/17 Ferrous Gluconate [Fergon] 324 mg PO BID 01/20/17 01/20/17 Review of Systems - Review of Systems Systems not reviewed;Unavailable: Altered Mental Status ED Stroke Physical Exam Vital Signs Reviewed: Yes Mental Status: Positive for: Confused - Systems Exam Head: Present: Atraumatic, Normocephalic Pupils: Present: PERRL Conjunctiva: Present: Normal Ears: Present: Normal Mouth: Present: Moist Mucous Membranes Pharnyx: Present: Normal Neck: Present: Normal Range of Motion Respiratory/Chest: Present: Clear to Auscultation Cardiovascular: Present: Regular Rate and Rhythm Abdomen: Present: Normal Bowel Sounds. No: Tenderness, Distention, Peritoneal Signs Upper Extremity: No: Cyanosis, Edema Neurologic: Present: Facial Droop, Other (aphasia/right hemiparesis) Skin: Present: Warm, Dry, Normal Color. No: Rashes Medical Decision Making ED Course and Treatment: 02/27/17 06:45 Pt. with noted low BS.D50 was administered with increased responsiveness.Pt.now more alert ,verbally responsive,able to move all extremities.Symptoms now appear a result of hypoglycemia.CT head was normal.Case was d/w .Pt. not a candidate for TPA. 02/27/17 06:59 Case endorsed to pending labs/CXR/reassess/final disposition - RAD Interpretation Radiology Orders: 02/27/17 06:19 HEAD W/O (CODE STROKE) [CT] Stat - Transfer of Care Patient signed out to Dr:: Jaki Pending Labs:: labs/CXR/reassess/final disposition NIHSS Scale([place]) 2 Time Performed: 06:50 - How Severe is the Stoke Baseline Level of Consciousness: 0=Alert LOC to Questions: 0=Both comments correct LOC to commands: 0=Obeys both correctly Best Gaze: 0=Normal Visual: 0=No visual loss Facial: 0=Normal Motor Arm - Left: 0=No drift Motor Arm - Right: 0=No drift Motor Leg - Left: 0=No drift Motor Leg - Right: 0=No drift Limb Ataxia: 0=Absent Sensory: 0=Normal Best Language: 0=No aphasia Dysarthia: 0=Normal articulation Extinction & Inattention (Neglect): 0=Normal, no object Score: 0 Risk Level: No Stroke Risk NIHSS Scale ([place]) Time Performed: 06:15 - How Severe is the Stoke Baseline Level of Consciousness: 0=Alert LOC to Questions: 2=Neither correct LOC to commands: 2=Neither correct Best Gaze: 0=Normal Visual: 0=No visual loss Facial: 0=Normal Motor Arm - Left: 1=Drift noted before 10 sec Motor Arm - Right: 1=Drift noted before 10 sec Motor Leg - Left: 1=Drift before 5 sec Motor Leg - Right: 1=Drift before 5 sec Limb Ataxia: 0=Absent Sensory: 0=Normal Best Language: 1=Mild to moderate aphasia Dysarthia: 2=Severe, near unintelligible or worse Extinction & Inattention (Neglect): 0=Normal, no object Score: 11 Risk Level: Mod Stroke Risk Disposition/Present on Arrival - Present on Arrival Any Indicators Present on Arrival: No History of DVT/PE: No History of Uncontrolled Diabetes: No Urinary Catheter: No History Surgical Site Infection Following: None - Disposition Have Diagnosis and Disposition been Completed?: No Diagnosis: Hypoglycemia Disposition Time: 07:00 Condition: STABLE
[2017-02-27] MEDS ORDERED: Dextrose 50% SYRINGE Inj (50 ml) IVP ONE (06:36)
--- NOTE | 2017-02-27 06:36 | CT ---
EXAM: CT Head Without Intravenous Contrast EXAM DATE/TIME: 02/27/2017 6:19 AM CLINICAL HISTORY: 66 years old, male; Signs and symptoms; Speech disturbance; Additional info: Possible CVA TECHNIQUE: Axial computed tomography images of the head/brain without intravenous contrast. All CT scans at this facility use one or more dose reduction techniques, viz.: automated exposure control; ma/kV adjustment per patient size (including targeted exams where dose is matched to indication; i.e. head); or iterative reconstruction technique. COMPARISON: No relevant prior studies available. FINDINGS: Brain: Mild cerebral atrophy. No hemorrhage. No significant white matter disease. No edema. Ventricles: Unremarkable. No ventriculomegaly. Bones/joints: Unremarkable. No acute fracture. Soft tissues: Unremarkable. Sinuses: Opacification left sphenoid sinus with some increased attenuation suggesting inspissated mucus. Small amount of fluid as well. Mastoid air cells: Unremarkable as visualized. No mastoid effusion. IMPRESSION: No evidence of acute cerebral hemorrhage or edema.
[2017-02-27 07:26] LABS: ALB/GLOB RATIO 1.2 (1.1-1.8); ALKALINE PHOSPHATASE 91 U/L (38-126); ALT/SGPT 61 U/L (7-56); AST/SGOT 111 U/L (17-59); BILIRUBIN,TOTAL 0.5 mg/dL (0.2-1.3); BLOOD UREA NITROGEN 115 mg/dL (7-21); CARBON DIOXIDE 15 mmol/L (21-33); CHLORIDE 103 mmol/L (98-107); CHOLESTEROL 85 mg/dL (130-200); GFR AFRICAN-AMERICAN 13; GLUCOSE,RANDOM 143 mg/dL (70-110); SODIUM 137 mmol/L (132-148); TOTAL PROTEIN 5.8 g/dL (5.8-8.3)
[2017-02-27 07:35] LABS: CALCIUM 6.3 mg/dL (8.4-10.5)
[2017-02-27 07:36] LABS: TROPONIN I 0.07 ng/mL
--- NOTE | 2017-02-27 07:37 | ED PDOC ---
Physical Exam Vital Signs Reviewed: Yes Vital Signs Temp Pulse Resp BP Pulse Ox 02/27/17 07:07 97.6 F 63 16 105/60 98 Temperature: Afebrile Blood Pressure: Normal Pulse: Regular Respiratory Rate: Normal Appearance: Positive for: Well-Appearing, Non-Toxic, Comfortable Pain Distress: None Mental Status: Positive for: Alert and Oriented X 3 Finger Stick Blood Glucose: 36 Medical Decision Making ED Course and Treatment: 02/27/17 07:34 Case signed out to me from Dr. Rocha pending chest xray, labs, reassessment and final disposition. Possible acute stroke. Patient is hypoglycemic, right now in no distress. No other complaints after given D 50. On reevaluation, no focal neurological deficits. Patient thinks he may have "overdone it on the pump yesterday." 02/27/17 08:04 Hemoglobin 6.4. Patient agrees to blood transfusion. 02/27/17 08:[address] Wheeler, who agrees for patient to be admitted to telemetry, under his service. 02/27/17 08:[address] Wheeler again, who states he will be on consult and asked patient to be admitted to hospitalist service. 02/27/17 08:[address] Goodson, who accepts patient to be admitted to telemetry. 02/27/17 08:[address] Goodson again, who states to admit patient to Dr. Knox's service. 02/27/17 08:[address] Knox in detail, who accepts patient to his service. I have discussed the results and plan with the patient, who expresses understanding. Patient given the opportunity to ask question, all questions were answered and there is agreement with the plan to be admitted to the hospital. - Critical Care Critical Care Minutes: 30 minutes - Lab Interpretations Lab Results: 02/27/17 07:26 02/27/17 07:00 Lab Results 02/27/17 07:26: WBC 16.2 H D, RBC 2.78 L, Hgb 6.4 L* D, Hct 21.0 L, MCV 75.5 L D , MCH 23.0 L, MCHC 30.5 L, RDW 17.5 H, Plt Count 233, Gran % 97.6 H, Lymph % ( Auto) 1.5 L, [place] % (Auto) 0.9 L, Eos % (Auto) 0.0 L, Baso % (Auto) 0.0, Gran # 15.85 H, Lymph # 0.2 L, [place] # 0.2, Eos # 0.0, Baso # 0.00, Neutrophils % ( Manual) 96 H, Lymphocytes % (Manual) 4 L, Monocytes % (Manual) TEST NOT PERFORMED, Toxic Granulation 1+, Platelet Evaluation Normal, Large Platelets Present, Polychromasia Slight, Hypochromasia 3+, Poikilocytosis (manual 1+, Anisocytosis (manual) 2+, Microcytosis (manual) 1+, Tear Drop Cells Slight, Ovalocytes Slight, Neva Cells 1+, Acanthocytes (Spur) Slight, Schistocytes Slight 02/27/17 07:26: Blood Type O POSITIVE, Antibody Screen Negative, BBK History Checked Patient has bt 02/27/17 07:26: PT 12.8 H, INR 1.19 H, APTT 38.7 H 02/27/17 07:00: Sodium 137, Potassium 4.0, Chloride 103, Carbon Dioxide 15 L, Anion Gap 23 H, BUN 115 H, Creatinine 5.4 H, Est GFR ( Amer) 13, Est GFR (Non-Af Amer) 11, Random Glucose 143 H, Calcium 6.3 L*, Total Bilirubin 0.5, AST 111 H, ALT 61 H, Alkaline Phosphatase 91, Troponin I 0.07 D, Total Protein 5.8, Albumin 3.1, Globulin 2.6, Albumin/Globulin Ratio 1.2, Triglycerides 69, Cholesterol 85 L, LDL Cholesterol Direct < 30, HDL Cholesterol 28 L 02/27/17 06:35: POC Glucose (mg/dL) 36 L* I have reviewed the lab results: Yes - RAD Interpretation Radiology Orders: 02/27/17 06:19 HEAD W/O (CODE STROKE) [CT] Stat 02/27/17 06:28 CHEST PORTABLE [RAD] Stat - Medication Orders Current Medication Orders: Cinacalcet (Sensipar) 30 mg PO DAILY [place] Cyanocobalamin (Vitamin B12 1000 Mcg Tab) 1,000 mcg PO DAILY [place] Dextrose (Dextrose 50% Inj) 50 ml IVP PRN PRN PRN Reason: Low blood sugar Ezetimibe (Zetia) 10 mg PO DAILY [place] Dextrose (Dextrose 10% In Water) 500 mls @ 100 mls/hr IV .Q5H [place] Last Admin: 02/27/17 07:10 Dose: 100 mls/hr eMAR Start Stop Document 02/27/17 07:10 STEPHAN (Rec: 02/27/17 07:10 [facility] [id number]) Intravenous Solution Start Date 02/27/17 Start Time 07:10 Insulin Human Lispro (Humalog Low) 0 units SC AC [place] PRN Reason: Protocol Mycophenolate Mofetil (Cellcept Cap) 500 mg PO BID [place] Pantoprazole Sodium (Protonix Ec Tab) 40 mg PO 0600,1600 [place] Last Admin: 02/27/17 09:20 Dose: 40 mg Prednisone (Prednisone Tab) 5 mg PO DAILY [place] Tacrolimus (Prograf Cap) 1 mg PO QPM [place] Tacrolimus (Prograf Cap) 2 mg PO QAM [place] Trimethoprim/Sulfamethoxazole (Bactrim Ds Tab) 1 tab PO Q48H [place] PRN Reason: Protocol Last Admin: 02/27/17 09:20 Dose: 1 tab Discontinued Medications Dextrose (Dextrose 50% Inj) 50 ml IVP ONCE ONE Stop: 02/27/17 06:37 Last Admin: 02/27/17 07:10 Dose: 50 ml IVP Administration Document 02/27/17 07:10 STEPHAN (Rec: 02/27/17 07:10 [facility] [id number]) Charges for Administration # of IVP Administrations 1 - Scribe Statement The provider has reviewed the documentation as recorded by the Lisa Long Provider Scribe Attestation: All medical record entries made by the Scribiliana were at my direction and personally dictated by me. I have reviewed the chart and agree that the record accurately reflects my personal performance of the history, physical exam, medical decision making, and the department course for this patient. I have also personally directed, reviewed, and agree with the discharge instructions and disposition. Disposition/Present on Arrival - Present on Arrival Any Indicators Present on Arrival: No History of DVT/PE: No History of Uncontrolled Diabetes: No Urinary Catheter: No History of Decub. Ulcer: No History Surgical Site Infection Following: None - Disposition Have Diagnosis and Disposition been Completed?: Yes Diagnosis: Hypoglycemia, Anemia Disposition: HOSPITALIZED Disposition Time: 08:30 Patient Plan: Admission Patient Problems: Current Active Problems Problem Status Onset Hypoglycemia Acute Condition: STABLE
[2017-02-27 07:43] LABS: GRAN # 15.85 (1.4-6.5); GRAN % 97.6 % (50.0-68.0); LYMPH # 0.2 (1.2-3.4); LYMPH % 1.5 % (22.0-35.0); MEAN CELL VOLUME 75.5 fl (80.0-105.0); MEAN CORPUSCULAR HGB CONC 30.5 g/dl (31.0-37.0); MONO # 0.2 (0.1-0.6); MONO % 0.9 % (1.0-6.0); PLATELET COUNT 233 10^3/uL (120.0-450.0); RED CELL DISTRIBUTION WIDTH 17.5 % (11.5-14.5); WHITE BLOOD COUNT 16.2 10^3/ul (4.5-11.0)
[2017-02-27 07:52] LABS: INR 1.19 (0.93-1.08); PARTIAL THROMBOPLASTIN TIME 38.7 Seconds (23.7-30.8)
[2017-02-27] MEDS ORDERED: Dextrose 50% SYRINGE Inj (50 ml) IVP PRN (08:58)
[2017-02-27] MEDS ORDERED: Tmp-Smz 800 mg-160 mg DS Tab PO SCH (09:00)
[2017-02-27 09:14] LABS: ANISOCYTOSIS 2+; HYPOCHROMIA 3+; MICROCYTOSIS 1+; NEUTROPHIL 96 % (50.0-70.0); PLATELET ESTIMATE NORMAL (NORMAL); POIKILOCYTOSIS 1+; POLYCHROMASIA SLIGHT
[2017-02-27 09:15] LABS: OVALOCYTES SLIGHT; TEAR DROP CELLS SLIGHT
[2017-02-27 09:16] LABS: BURR CELLS 1+; LARGE PLATELETS PRESENT; TOXIC GRANULATION 1+
[2017-02-27] MEDS: Pantoprazole 40 mg EC Tab PO SCH ×2 (09:20→16:11)
[2017-02-27 09:27] LABS: RETIC% 0.74 % (0.5-1.5)
--- NOTE | 2017-02-27 09:38 | RAD ---
HISTORY: POSSIBLE CVA COMPARISON: No prior. FINDINGS: LUNGS: No active pulmonary disease. PLEURA: No significant pleural effusion identified, no pneumothorax apparent. CARDIOVASCULAR: The descending thoracic aorta is markedly prominent as before -descending thoracic aortic aneurysm and/or marked tortuosity/ectasia considerations. . Aortic valvular prosthesis - similar appearing Intact sternotomy wires. Cardiomegaly-unchanged OSSEOUS STRUCTURES: Postop as above VISUALIZED UPPER ABDOMEN: Normal. OTHER FINDINGS: None. IMPRESSION: Markedly prominent descending thoracic aorta -unchanged. Descending thoracic aortic aneurysmand/or marked tortuosity/ectasia considerations -considerations. Cardiomegaly. All findings are similar appearing since 01/20/2017. If not already known, consider CT chest for further evaluation Postop changes -similar No interval change appreciated
[2017-02-27 11:08] LABS: IRON 12 ug/dL (45-180)
[2017-02-27] MEDS ORDERED: Barium Sulfate Susp 2.1% w/v, 2.0% w/w 450 mL Bottle PO ONE (11:44)
--- NOTE | 2017-02-27 11:54 | CP.PCM.CON ---
<Delores So - Last Filed: 02/27/17 11:35> History of Present Illness - History of Present Illness History of Present Illness: Seen and examined at the bedside this morning in the emergency room, the chart was reviewed. Request for GI consult is for anemia. HPI: This is a 66-year-old male with a past medical history of polycystic kidney disease status post kidney transplant, chronic renal failure, iron deficiency anemia on iron supplements, abdominal aortic aneurysm with aortic dissection, and aortic valve replacement was brought to the emergency room by EMS, the patient was found to beconfused upon awaking this morning, nonverbal and have right-sided weakness. In the ER "stroke was called. The patient did have a CAT scan of the head and there was no evidence of acute hemorrhage or edema. The patient is currently laying in bed with his son at the bedside reported that he recalls falling off the couch having his grandson assist him to pick him up. He ate a candy bar and gave himself some insulin, he states that he may have overmedicated himself. In the ER the insulin pump was removed. In review of his labs on admission, he was found to have a hemoglobin of 6.7. The patient denies any adriel bleeding, he states that his stool is already dark/black because he is on iron pills. He does endorse feeling tired. An reports that he has lower extremity edema. He was seen by our service in January/2017 for anemia as well the patient at that time was concerned about his who was just recently released from the hospital and adamant about having GI evaluation/EGD/colon as an outpatient. Patient reported that a week after his hospitalization he was having lower extremity swelling was sent by his implementation analyst for outpatient CT scan of abdomen and pelvis but did not make the appointment as he was having difficulty with walking. He has had no further follow-up since he was discharged. Denies any nausea, vomiting, or abdominal pain. Occasionally he may get acid reflux depending upon dietary intake, no change in bowel habits. His weight has been the same. Past medical history: Polycystic kidney disease, status post kidney transplant, aortic valve replacement, chronic renal disease, iron deficiency anemia, diabetes mellitus, abdominal aortic aneurysm with aortic dissection, dyslipidemia Surgical history: Kidney transplant, aortic valve replacement, bilateral inguinal hernia repair, colonoscopy more than 10 years ago Social history: Former smoker, denies EtOH or substance abuse Family history: Noncontributory to this time Allergies: No known drug allergies Medications: Reviewed as per MAR. ROS: Systems reviewed with positive findings see HPI Past Patient History - Infectious Disease Hx of Infectious Diseases: None - Past Social History Smoking Status: Former Smoker - CARDIAC Hx Cardiac Disorders: Yes Hx Hypertension: Yes - PULMONARY Hx Respiratory Disorders: No - NEUROLOGICAL Hx Neurological Disorder: No - HEENT Hx HEENT Problems: Yes (wears glasses) - RENAL Hx Chronic Kidney Disease: Yes Hx Dialysis: Yes (left arm fistula) Date of Last Dialysis Treatment: 10/08/06 Other/Comment: Kidney transplant - ENDOCRINE/METABOLIC Hx Endocrine Disorders: Yes Hx Diabetes Mellitus Type 2: Yes - HEMATOLOGICAL/ONCOLOGICAL Hx Blood Disorders: Yes Hx Anemia: Yes - INTEGUMENTARY Hx Dermatological Problems: No - MUSCULOSKELETAL/RHEUMATOLOGICAL Hx Musculoskeletal Disorders: No - GASTROINTESTINAL Hx Gastrointestinal Disorders: No - GENITOURINARY/GYNECOLOGICAL Hx Genitourinary Disorders: Yes Other/Comment: bilateral inguinal hernias (repaired) - PSYCHIATRIC Hx Psychophysiologic Disorder: No Hx Substance Use: No - SURGICAL HISTORY Hx Kidney Transplant: Yes Other/Comment: Aortic valve replacement - ANESTHESIA Hx Anesthesia: Yes Hx Anesthesia Reactions: No Hx Malignant Hyperthermia: No Meds Allergies/Adverse Reactions: Allergies Allergy/AdvReac Type Severity Reaction Status Date / Time No Known Allergies Allergy Verified 01/20/17 11:38 - Medications Medications: Current Medications Cinacalcet (Sensipar) 30 mg PO DAILY [facility] Cyanocobalamin (Vitamin B12 1000 Mcg Tab) 1,000 mcg PO DAILY [facility] Dextrose (Dextrose 50% Inj) 50 ml IVP PRN PRN PRN Reason: Low blood sugar Ezetimibe (Zetia) 10 mg PO DAILY [facility] Dextrose (Dextrose 10% In Water) 500 mls @ 100 mls/hr IV .Q5H [facility] Last Admin: 02/27/17 07:10 Dose: 100 mls/hr Insulin Human Lispro (Humalog Low) 0 units SC AC [facility] PRN Reason: Protocol Mycophenolate Mofetil (Cellcept Cap) 500 mg PO BID [facility] Pantoprazole Sodium (Protonix Ec Tab) 40 mg PO 0600,1600 [facility] Last Admin: 02/27/17 09:20 Dose: 40 mg Prednisone (Prednisone Tab) 5 mg PO DAILY [facility] Tacrolimus (Prograf Cap) 1 mg PO QPM [facility] Tacrolimus (Prograf Cap) 2 mg PO QAM [facility] Trimethoprim/Sulfamethoxazole (Bactrim Ds Tab) 1 tab PO Q48H [facility] PRN Reason: Protocol Last Admin: 02/27/17 09:20 Dose: 1 tab Physical Exam - Constitutional Appears: No Acute Distress, Cachectic - Head Exam Head Exam: NORMOCEPHALIC - Eye Exam Eye Exam: Normal appearance. absent: Scleral icterus - ENT Exam ENT Exam: Mucous Membranes Moist - Neck Exam Neck exam: Positive for: Normal Inspection - Respiratory Exam Respiratory Exam: Decreased Breath Sounds, NORMAL BREATHING PATTERN. absent: Rales, Wheezes, Respiratory Distress - Cardiovascular Exam Cardiovascular Exam: +S2 - GI/Abdominal Exam GI & Abdominal Exam: Distended, Normal Bowel Sounds, Soft. absent: Organomegaly , Pulsatile Mass, Tenderness - Extremities Exam Extremities exam: Positive for: pedal edema, pedal pulses present. Negative for : calf tenderness - Neurological Exam Neurological exam: Alert, Oriented x3 - Skin Skin Exam: Dry, Warm Results - Vital Signs Recent Vital Signs: Last Vital Signs Temp 97.6 F 02/27/17 07:07 Pulse 63 02/27/17 07:07 Resp 16 02/27/17 07:07 BP 105/60 02/27/17 07:07 Pulse Ox 98 02/27/17 07:07 - Labs Result Diagrams: 02/27/17 07:26 02/27/17 07:00 Labs: Laboratory Results - last 24 hr 02/27/17 02/27/17 02/27/17 08:33 08:54 10:20 POC Glucose (mg/dL) 80 Uric Acid 13.0 H Iron 12 L TIBC 237 L % Saturation 5 L Assessment & Plan - Assessment and Plan (Free Text) Assessment: Assessment: Anemia History of polycystic kidney, status post kidney transplant, Chronic kidney disease Iron deficiency anemia Aortic valve replacement Abdominal aortic aneurysm with aortic dissection Diabetes mellitus, hypoglycemic episode Plan: Pending blood transfusion follow-up iron studies, B12, folate, ferritin trend H& H and monitor for overt GI bleed continue Protonix twice a day Request for CT scan of abdomen and pelvis with only oral contrast Patient is on his Prograf On prednisone Spoke to the patient and his son at the bedside the patient would benefit from GI workup in view of acute anemia, patient would also benefit from vascular evaluation in view of abdominal aortic aneurysm with aortic dissection, patient saw vascular doctor in [facility], Dr. Dewitt. The patient has failed to follow-up, before undergoing procedures. Thank you for this consult and for allowing us to participate in your patient's care, further recommendations based upon clinical course. Seen and discussed with Dr. Cordova. <Mac Cordova V - Last Filed: 02/27/17 22:08> Meds - Medications Medications: Current Medications Cinacalcet (Sensipar) 30 mg PO DAILY [facility] Last Admin: 02/27/17 17:16 Dose: Not Given Cyanocobalamin (Vitamin B12 1000 Mcg Tab) 1,000 mcg PO DAILY [facility] Last Admin: 02/27/17 19:00 Dose: 1,000 mcg Dextrose (Dextrose 50% Inj) 50 ml IVP PRN PRN PRN Reason: Low blood sugar Ezetimibe (Zetia) 10 mg PO DAILY [facility] Last Admin: 02/27/17 19:00 Dose: 10 mg Dextrose/Sodium Chloride (Dextrose 5%/0.9% Ns 1000 Ml) 1,000 mls @ 100 mls/hr IV .Q10H [facility] Last Admin: 02/27/17 16:08 Dose: 100 mls/hr Insulin Human Lispro (Humalog Low) 0 units SC AC [facility] PRN Reason: Protocol Last Admin: 02/27/17 17:16 Dose: Not Given Metoprolol Tartrate (Lopressor) 25 mg PO BID [facility] Last Admin: 02/27/17 17:45 Dose: Not Given Mycophenolate Mofetil (Cellcept Cap) 500 mg PO BID [facility] Last Admin: 02/27/17 18:08 Dose: 500 mg Pantoprazole Sodium (Protonix Ec Tab) 40 mg PO 0600,1600 [facility] Last Admin: 02/27/17 16:11 Dose: 40 mg Prednisone (Prednisone Tab) 5 mg PO DAILY [facility] Last Admin: 02/27/17 16:11 Dose: 5 mg Tacrolimus (Prograf Cap) 1 mg PO QPM [facility] Last Admin: 02/27/17 18:09 Dose: 1 mg Tacrolimus (Prograf Cap) 2 mg PO QAM [facility] Last Admin: 02/27/17 16:11 Dose: Not Given Trimethoprim/Sulfamethoxazole (Bactrim Ds Tab) 1 tab PO Q48H [facility] PRN Reason: Protocol Last Admin: 02/27/17 09:20 Dose: 1 tab Results - Vital Signs Recent Vital Signs: Last Vital Signs Temp 101.4 F H 02/27/17 21:39 Pulse 60 02/27/17 17:45 Resp 20 02/27/17 16:00 BP 107/55 L 02/27/17 16:00 Pulse Ox 100 02/27/17 13:04 - Labs Result Diagrams: 02/27/17 20:30 02/27/17 07:00 Labs: Laboratory Results - last 24 hr 02/27/17 02/27/17 02/27/17 08:33 08:54 10:20 WBC RBC Hgb Hct MCV MCH MCHC RDW Plt Count Gran % Lymph % (Auto) Kane % (Auto) Eos % (Auto) Baso % (Auto) Gran # Lymph # Kane # Eos # Baso # pO2 VBG pH VBG pCO2 VBG HCO3 VBG Total CO2 VBG O2 Sat (Calc) VBG Base Excess VBG Potassium Sodium Chloride Glucose Lactate FiO2 POC Glucose (mg/dL) 80 Uric Acid 13.0 H Iron 12 L TIBC 237 L % Saturation 5 L Ferritin 302.0 Vitamin B12 > 1000 H Folate 15.2 Venous Blood Potassium 02/27/17 02/27/17 02/27/17 16:48 17:38 20:30 WBC 8.8 D RBC 2.48 L Hgb 6.0 L* Hct 18.6 L* MCV 75.0 L MCH 24.2 L MCHC 32.3 RDW 16.3 H Plt Count 174 Gran % 96.9 H Lymph % (Auto) 1.6 L Kane % (Auto) 1.5 Eos % (Auto) 0.0 L Baso % (Auto) 0.0 Gran # 8.51 H Lymph # 0.1 L Kane # 0.1 Eos # 0.0 Baso # 0.00 pO2 VBG pH VBG pCO2 VBG HCO3 VBG Total CO2 VBG O2 Sat (Calc) VBG Base Excess VBG Potassium Sodium Chloride Glucose Lactate FiO2 POC Glucose (mg/dL) 96 132 H Uric Acid Iron TIBC % Saturation Ferritin Vitamin B12 Folate Venous Blood Potassium 02/27/17 02/27/17 20:30 21:48 WBC RBC Hgb Hct MCV MCH MCHC RDW Plt Count Gran % Lymph % (Auto) Kane % (Auto) Eos % (Auto) Baso % (Auto) Gran # Lymph # Kane # Eos # Baso # pO2 47 VBG pH 7.38 VBG pCO2 25.0 L VBG HCO3 14.8 L VBG Total CO2 15.6 L VBG O2 Sat (Calc) 86.9 H VBG Base Excess -8.5 L VBG Potassium 3.4 L Sodium 131.0 L Chloride 104.0 Glucose 138 H Lactate 1.4 FiO2 21.0 POC Glucose (mg/dL) 145 H Uric Acid Iron TIBC % Saturation Ferritin Vitamin B12 Folate Venous Blood Potassium 3.4 L Attending/Attestation - Attestation I have personally seen and examined this patient.: Yes I have fully participated in the care of the patient.: Yes I have reviewed all pertinent clinical information: Yes Notes (Text): This is an addendum to GI progress report dictated by Delores So APN.The patient was seen and examined earlier. Medical records, lab studies, imagings were reviewed. Last 24 hours events reviewed. Agreed with the above treatment plan as outlined in Delores So APN's notes the with the addition of the following on examination comfortable , patient's sister was at bedside No complaints of abdominal pain abdomen soft no tenderness Will discuss with the vascular perior to considering any endoscopy evaluation extending follow-up of the hemoglobin and hematocrit
--- NOTE | 2017-02-27 12:04 | CP.PCM.HP ---
<Mook Mckeon - Last Filed: 02/27/17 13:51> History of Present Illness - History of Present Illness History of Present Illness: H&P. Dr. Knox Hx obtained from patient and previous chart review. 66yo M with PMHx including polycystic kidney disease s/p Renal transplant, HTN, CKD, Iron-deficiency Anemia, AAA w/ aortic dissection, here for evaluation of AMS. As per reports, patient was last seen normal by family last night. This morning he awoke with confusion and questionable right sided weakness. He was brought in by EMS for further evaluation. In the ED, he was hypoglycemic and upon correction, patient's clinical status improved. He states that he may have "taken too much insulin" at home. CT head in the ED negative for any acute intracranial hemorrhage. Patient reports that he was being evaluated for anemia in January and was recommended GI workup, however, patient needed to leave to take care of his who was recently discharged from another hospital around that time. Patient has not been able to follow up as out-patient with any of the referrals (GI/Vasc surgery or any out-patient imaging) since January. He states that he is willing to have all work-up completed during this hospital stay. He states that he had right leg swelling a few weeks ago, gradually getting worse and now reports bilateral LE swelling. He does report dark stools but attributes this to his oral iron intake, denies any new characteristics of his stool output. He states that he may have had some weight loss since he was last seen in the hospital, however, he is unable to quantify. He reports a hx of AAA for which he was seeing a vascular surgeon (Dr. Dewitt, May 2016) however, he has not followed up with him. He states that hde would like to be evaluated by a vascular surgeon during this hospital admission. He denies any adriel blood loss. Denies any N/V/D. No Abd pain. no CP/SOB. No Headaches. PMHx: Polycystic Kidney disease, HTN, DM, Chronic renal disease, Abdominal Aortic Aneurysm, HLD PSHx: Renal Transplant, Aortic Valve Replacement, Bilateral Inguinal Hernia Repair Family Hx: Denies Social Hx: Denies ETOH use, Denies illicit drugs, Former Tobacco use NKDA Present on Admission - Present on Admission Any Indicators Present on Admission: No Review of Systems - Review of Systems All systems: reviewed and no additional remarkable complaints except - Constitutional Constitutional: absent: Chills, Fever - Cardiovascular Cardiovascular: Leg Edema. absent: Chest Pain, Dyspnea - Respiratory Respiratory: absent: Dyspnea - Gastrointestinal Gastrointestinal: absent: Abdominal Pain, Constipation, Diarrhea, Hematemesis, Hematochezia, Nausea Past Patient History - Infectious Disease Hx of Infectious Diseases: None - Past Medical History & Family History Past Medical History?: Yes Past Family History: Reviewed and not pertinent - Past Social History Smoking Status: Former Smoker Alcohol: None Drugs: Denies - CARDIAC Hx Cardiac Disorders: Yes Hx Hypertension: Yes - PULMONARY Hx Respiratory Disorders: No - NEUROLOGICAL Hx Neurological Disorder: No - HEENT Hx HEENT Problems: Yes (wears glasses) - RENAL Hx Chronic Kidney Disease: Yes Hx Dialysis: Yes (left arm fistula) Date of Last Dialysis Treatment: 10/08/06 Other/Comment: Kidney transplant - ENDOCRINE/METABOLIC Hx Endocrine Disorders: Yes Hx Diabetes Mellitus Type 2: Yes - HEMATOLOGICAL/ONCOLOGICAL Hx Blood Disorders: Yes Hx Anemia: Yes - INTEGUMENTARY Hx Dermatological Problems: No - MUSCULOSKELETAL/RHEUMATOLOGICAL Hx Musculoskeletal Disorders: No - GASTROINTESTINAL Hx Gastrointestinal Disorders: No - GENITOURINARY/GYNECOLOGICAL Hx Genitourinary Disorders: Yes Other/Comment: bilateral inguinal hernias (repaired) - PSYCHIATRIC Hx Psychophysiologic Disorder: No Hx Substance Use: No - SURGICAL HISTORY Hx Kidney Transplant: Yes Other/Comment: Aortic valve replacement - ANESTHESIA Hx Anesthesia: Yes Hx Anesthesia Reactions: No Hx Malignant Hyperthermia: No Meds Allergies/Adverse Reactions: Allergies Allergy/AdvReac Type Severity Reaction Status Date / Time No Known Allergies Allergy Verified 01/20/17 11:38 Physical Exam - Constitutional Appears: No Acute Distress, Cachectic, Chronically Ill - Head Exam Head Exam: ATRAUMATIC, NORMAL INSPECTION, NORMOCEPHALIC - Eye Exam Eye Exam: EOMI, Scleral icterus - ENT Exam ENT Exam: Mucous Membranes Moist - Respiratory Exam Respiratory Exam: Clear to Auscultation Bilateral, NORMAL BREATHING PATTERN. absent: Respiratory Distress - Cardiovascular Exam Cardiovascular Exam: RRR. absent: JVD - GI/Abdominal Exam GI & Abdominal Exam: Soft. absent: Distended, Firm, Guarding, Tenderness - Extremities Exam Extremities exam: Positive for: pedal edema. Negative for: calf tenderness - Neurological Exam Neurological exam: Alert, CN II-XII Intact, Oriented x3 - Psychiatric Exam Psychiatric exam: Normal Affect, Normal Mood - Skin Skin Exam: Dry, Intact, Normal Color, Warm Results - Vital Signs Recent Vital Signs: Last Vital Signs Temp 97.6 F 02/27/17 07:07 Pulse 76 02/27/17 11:46 Resp 18 02/27/17 11:46 BP 107/65 02/27/17 11:46 Pulse Ox 100 02/27/17 11:46 - Labs Result Diagrams: 02/27/17 07:26 02/27/17 07:00 Labs: Laboratory Results - last 24 hr 02/27/17 02/27/17 02/27/17 08:33 08:54 10:20 POC Glucose (mg/dL) 80 Uric Acid 13.0 H Iron 12 L TIBC 237 L % Saturation 5 L Assessment & Plan - Assessment and Plan (Free Text) Assessment: 66yo M with PMHx of Chronic Iron deficiency Anemia, Polycystic Kidney Disease, AAA w/ dissection, HLD, DM, HTN, here with AMS. Found to be hypoglycemic, improved mentation after D50 given. Pt with Hb of 6.4, will transfuse. 1. Altered Mental Status likely secondary to hypoglycemia improved after D50 CT head - negative for acute intracranial process 2. Anemia hx of multiple blood transfusions and Venofer IV administrations Hb 6.4 Transfuse 2U pRBCs repeat CBC Vitals stable currently f/u CT Abd/Pelvis w/PO contrast f/u Iron studies GI consulted, Dr. Cordova, appreciate recs 3. Hx of AAA w/ dissection Aortic/Iliacs Duplex US - Chronic large aortic dissection involving the mesenteric vessels. Infra-renal Aorta is 6.9cm Pt with a hx of noncompliance with follow up with his out-patient vascular surgeon Vascular Surgery, Dr. Mcmullen consulted. Appreciate recs Differed CTA due to renal disease 4. Lower extremity swelling LE Duplex - Negative DVT study continue to monitor 5. Hx of CKD s/p renal transplant ~10 years ago Nephrology following, appreciate recs Creat 5.4 D5NS @60 Prograf Cellcept Prednisone Bactrim q48hrs continue to monitor 6. Hx of HLD continue home meds Zetia 7. Hx of IDDM Accuchecks ISS low dose HbA1c - 6.5 8. PPx Protonix SCDs Further recs as per Dr. Lisette Mckeon PGY1 <Mart Knox U - Last Filed: 02/27/17 20:30> Results - Vital Signs Recent Vital Signs: Last Vital Signs Temp 98 F 02/27/17 18:08 Pulse 77 02/27/17 16:00 Resp 20 02/27/17 16:00 BP 107/55 L 02/27/17 16:00 Pulse Ox 100 02/27/17 13:04 - Labs Result Diagrams: 02/27/17 07:26 02/27/17 07:00 Labs: Laboratory Results - last 24 hr 02/27/17 02/27/17 02/27/17 08:33 08:54 10:20 POC Glucose (mg/dL) 80 Uric Acid 13.0 H Iron 12 L TIBC 237 L % Saturation 5 L Ferritin 302.0 Vitamin B12 > 1000 H Folate 15.2 02/27/17 02/27/17 16:48 17:38 POC Glucose (mg/dL) 96 132 H Uric Acid Iron TIBC % Saturation Ferritin Vitamin B12 Folate Attending/Attestation - Attestation I have personally seen and examined this patient.: Yes I have fully participated in the care of the patient.: Yes I have reviewed all pertinent clinical information: Yes
[2017-02-27] MEDS ORDERED: Sodium Chloride 0.9% 1,000 ML IV SCH (12:15)
[2017-02-27] MEDS ORDERED: Dextrose 5%/0.9% NS 1,000 ML IV SCH (12:15)
--- NOTE | 2017-02-27 14:10 | US ---
PROCEDURE: 1. Duplex ultrasound of the abdominal aorta. HISTORY: Abdominal aortic aneurysm. PHYSICIAN(S): Carlos Fulton MD. FINDINGS: There is a large chronic thoracoabdominal dissection with aneurysmal dilatation present. The dissection involves the mesenteric vessels. The dilated infrarenal abdominal aorta measures up to 6.9 cm. IMPRESSION: 1. Large, chronic thoracoabdominal dissection with aneurysmal dilatation. The infrarenal abdominal aorta measures 6.9 cm in greatest sagittal dimension.
--- NOTE | 2017-02-27 14:11 | US ---
HISTORY: Leg pain and swelling. Evaluate for DVT PHYSICIAN(S): Carlos Fulton MD. TECHNIQUE: Duplex sonography and color-flow Doppler with graded compression were used to evaluate the deep venous systems of both lower extremities. FINDINGS: The visualized deep venous systems of both lower extremities are sonographically normal and compressible. Normal wave forms and augmentation are seen. There is no sonographic evidence for deep venous thrombosis in the visualized segments of both lower extremities. IMPRESSION: No sonographic evidence for deep venous thrombosis in the visualized segments of both lower extremities.
[2017-02-27] MEDS: Insulin Lispro (humaLOG) LOW Coverage SC SCH ×2 (15:51→17:16)
[2017-02-27] MEDS: Dextrose 5%/0.9% NS 1,000 ML IV SCH (16:08)
--- NOTE | 2017-02-27 16:18 | CP.PCM.CON ---
History of Present Illness - History of Present Illness History of Present Illness: 66 yo M w/ pmh of htn, CKD stage IV/V, s/p renal allograft (2006), post- transplant DM, recurrent anemia, s/p aortic valve replacement (2002) and unrepaired abdominal aortic aneurysm, sent to ED after being found to be confused at home; found to be hypoglycemic and severely anemic; nephrology service being consulted for advanced CKD management; Patient reports having been mostly non-ambulatory for the past 2 weeks due to severe leg pains, first starting in R lower leg and with associated increased swelling, and more recently involving L lower leg; he reports decreased energy level and inability to keep up with his medical f/u for this reason; Patient was admitted last month with symptomatic anemia and transfused; GI was consulted at the time and plan was to perform colonoscopy for possible AVM; however, extent of patient's unrepaired large AAA (~7 cm) came to light and so colonoscopy was considered to be relatively unsafe until more info could be obtained from patient's vascular surgeon (who he had not seen since 05/2016); Patient was seen in our office after d/c and given script for repeat CT abdomen to assess AAA and was told to make appointment with his vascular surgeon but now says that his above condition precluded him from doing either; Patient has been on aranesp 100 mcg monthly; he reports black stools but thinks this may be attributed to iron pills; otherwise, patient continued to take all the rest of his home meds including anti-htn meds/diuretics; Review of Systems - Constitutional Constitutional: Chills - EENT Eyes: Blurred Vision Nose/Mouth/Throat: absent: Nasal Discharge, Sore Throat - Cardiovascular Cardiovascular: Leg Edema. absent: Chest Pain, Palpitations - Respiratory Respiratory: absent: Cough - Gastrointestinal Gastrointestinal: absent: Diarrhea, Nausea, Vomiting - Genitourinary Genitourinary: absent: Difficulty Urinating - Musculoskeletal Musculoskeletal: As Per HPI - Neurological Neurological: absent: Dizziness Past Patient History - Infectious Disease Hx of Infectious Diseases: None - Past Medical History & Family History Past Medical History?: Yes Pertinent Family History: ADPKD - Past Social History Smoking Status: Former Smoker Alcohol: None Drugs: Denies - CARDIAC Hx Cardiac Disorders: Yes Hx Hypertension: Yes - PULMONARY Hx Respiratory Disorders: No - NEUROLOGICAL Hx Neurological Disorder: No - HEENT Hx HEENT Problems: Yes (wears glasses) - RENAL Hx Chronic Kidney Disease: Yes Hx Dialysis: Yes (left arm fistula) Date of Last Dialysis Treatment: 10/08/06 Other/Comment: Kidney transplant - ENDOCRINE/METABOLIC Hx Endocrine Disorders: Yes Hx Diabetes Mellitus Type 2: Yes - HEMATOLOGICAL/ONCOLOGICAL Hx Blood Disorders: Yes Hx Anemia: Yes - INTEGUMENTARY Hx Dermatological Problems: No - MUSCULOSKELETAL/RHEUMATOLOGICAL Hx Musculoskeletal Disorders: No - GASTROINTESTINAL Hx Gastrointestinal Disorders: No - GENITOURINARY/GYNECOLOGICAL Hx Genitourinary Disorders: Yes Other/Comment: bilateral inguinal hernias (repaired) - PSYCHIATRIC Hx Psychophysiologic Disorder: No Hx Substance Use: No - SURGICAL HISTORY Hx Kidney Transplant: Yes Other/Comment: Aortic valve replacement - ANESTHESIA Hx Anesthesia: Yes Hx Anesthesia Reactions: No Hx Malignant Hyperthermia: No Meds Allergies/Adverse Reactions: Allergies Allergy/AdvReac Type Severity Reaction Status Date / Time No Known Allergies Allergy Verified 01/20/17 11:38 - Medications Medications: Current Medications Cinacalcet (Sensipar) 30 mg PO DAILY [facility] Cyanocobalamin (Vitamin B12 1000 Mcg Tab) 1,000 mcg PO DAILY [facility] Dextrose (Dextrose 50% Inj) 50 ml IVP PRN PRN PRN Reason: Low blood sugar Ezetimibe (Zetia) 10 mg PO DAILY [facility] Dextrose/Sodium Chloride (Dextrose 5%/0.9% Ns 1000 Ml) 1,000 mls @ 100 mls/hr IV .Q10H [facility] Insulin Human Lispro (Humalog Low) 0 units SC AC [place] PRN Reason: Protocol Last Admin: 02/27/17 15:51 Dose: Not Given Mycophenolate Mofetil (Cellcept Cap) 500 mg PO BID [facility] Pantoprazole Sodium (Protonix Ec Tab) 40 mg PO 0600,1600 [facility] Last Admin: 02/27/17 09:20 Dose: 40 mg Prednisone (Prednisone Tab) 5 mg PO DAILY [facility] Tacrolimus (Prograf Cap) 1 mg PO QPM [place] Tacrolimus (Prograf Cap) 2 mg PO QAM [place] Trimethoprim/Sulfamethoxazole (Bactrim Ds Tab) 1 tab PO Q48H [facility] PRN Reason: Protocol Last Admin: 02/27/17 09:20 Dose: 1 tab Physical Exam - Constitutional Appears: Non-toxic, No Acute Distress - Head Exam Head Exam: NORMAL INSPECTION, NORMOCEPHALIC - Eye Exam Eye Exam: absent: Scleral icterus - ENT Exam ENT Exam: Mucous Membranes Moist - Neck Exam Neck exam: Negative for: Lymphadenopathy - Respiratory Exam Respiratory Exam: Clear to Auscultation Bilateral, NORMAL BREATHING PATTERN. absent: Rales, Rhonchi, Wheezes, Respiratory Distress - Cardiovascular Exam Cardiovascular Exam: RRR Additional comments: Loud systolic murmur, S2 click; - GI/Abdominal Exam GI & Abdominal Exam: Distended, Soft. absent: Tenderness Additional comments: Lower abd palpable pulsating mass just L of midline; - Extremities Exam Additional comments: Marked bilateral lower leg edema; - Neurological Exam Neurological exam: Alert, Oriented x3 - Psychiatric Exam Psychiatric exam: Normal Affect, Normal Mood - Skin Skin Exam: Normal Color, Warm Results - Vital Signs Recent Vital Signs: Last Vital Signs Temp 100.5 F H 02/27/17 15:36 Pulse 77 02/27/17 15:36 Resp 20 02/27/17 15:36 BP 93/47 L 02/27/17 15:36 Pulse Ox 100 02/27/17 13:04 - Labs Result Diagrams: 02/27/17 07:26 02/27/17 07:00 Labs: Laboratory Results - last 24 hr 02/27/17 02/27/17 02/27/17 08:33 08:54 10:20 POC Glucose (mg/dL) 80 Uric Acid 13.0 H Iron 12 L TIBC 237 L % Saturation 5 L - Imaging and Cardiology Chest x-ray Status: Image reviewed by me Additional comment: Lungs clear Assessment & Plan (1) Symptomatic anemia Assessment and Plan: Severely iron deficient, likely GI losses; also anemia of CKD; needs endoscopy but presence of large AAA confers increased risk and needs to be assessed; -Agree with prbc transfusion -Getting aranesp 100 mcg monthly; will give dose if not received recently -GI getting CT abd w/ PO contrast, will f/u Status: Acute (2) Renal transplant, status post Assessment and Plan: Allograft function progressively declining; should continue with same immunosuppression for now; -continue tacrolimus 2 mg in am, 1 mg in pm -continue cellcept 500 mg bid -continue prednisone 5 mg daily -on prophylaxis with DS bactrim 1 tab qMWF, continue -checking tacrolimus level Status: Acute (3) Chronic kidney disease (CKD), stage IV (severe) Assessment and Plan: Worsening renal function although current increase in serum creat from ~4 to 5 is likely hemodynamically mediated and should correct with volume repletion ( via prbc, IVF); significant increased anion gap metabolic acidosis not explained by CKD; -NS at 100 cc/hr -avoid nephrotoxic agents Status: Acute (4) Chronic kidney disease-mineral and bone disorder Assessment and Plan: Tertiary hyperparathyroidism post transplant, on cinacalcet; however, Ca now low ; PTH increased recently to >300 and was started on calcitriol 0.25 mcg qMWF; -Increase calcitriol to 0.25 mcg daily -Hold cinacalcet (can cause hypocalcemia) Status: Acute (5) AAA (abdominal aortic aneurysm) Assessment and Plan: As mentioned above, needs vascular eval as soon as possible; 7.[address] from 05/2016; Status: Acute (6) Hypertensive chronic kidney disease Assessment and Plan: Currently hypotensive in setting in setting of symptomatic anemia; -continue low dose metoprolol 25 mg bid to avoid B-fe withdrawal (was on 100 mg bid at home) -hold rest of anti-htn meds including diuretics -IVF as above -checking lactate level Status: Chronic (7) Hypoglycemia Assessment and Plan: Reports taking extra dose of humalog though effect shouldn't last all night; worsening renal function contributory; -continue dextrose containing IVF Status: Acute
[2017-02-27] MEDS ORDERED: DiphenhydrAMINE 50 mg/ml Inj IVP STA (16:32)
--- NOTE | 2017-02-27 17:04 | CT ---
PROCEDURE: CT Chest, Abdomen and Pelvis without intravenous contrast HISTORY: ANEMIA/WT.LOSS/AAA--PO CONTRAST ONLY COMPARISON: None. TECHNIQUE: Helical CT of the chest, abdomen and pelvis was performed following oral contrast administration only. Intravenous contrast not administered as per referring physician request. Radiation dose: Total exam DLP = 358.58 mGy-cm. This CT exam was performed using one or more of the following dose reduction techniques: Automated exposure control, adjustment of the mA and/or kV according to patient size, and/or use of iterative reconstruction technique. FINDINGS: CT CHEST WITHOUT CONTRAST: LUNGS: A 1.7 cm non solid, hazy but inhomogeneous nodule is appreciated abutting the pleura at the right upper lobe and image 52 series 4 with no additional potential pulmonary nodule identified bilaterally. Consider tissue diagnosis to confirm benign histology or possibly PET scan for additional characterization. The central airways are clear and trace bilateral basilar dependent atelectasis identified. MEDIASTINUM: Patient status post median sternotomy for aortic valve replacement and potential proximal ascending thoracic aortic procedure. There is a borderline ascending thoracic aortic aneurysm measuring 3.9 cm at the distal ascending segment with the thoracic aorta measuring 3.6 cm at the posterior portion of the arch. The proximal descending segment measures 3.5 cm greatest diameter with the distal descending segment measuring 4.3 cm. At the abdominal hiatus, the thoracic aorta measures 4.2 cm. The upper abdominal aorta reaches normal caliber of 3.0 cm. Cardiomegaly is noted. LYMPH NODES: Unremarkable. PLEURA: Unremarkable. No pneumothorax. No pleural or pericardial fluid. BONES: Unremarkable. OTHER FINDINGS: None. CT ABDOMEN AND PELVIS: LIVER: Lack images contrast limits the evaluation significantly. Multiple lucencies are suspected scattered throughout the liver which are quite small. The largest seen at the medial anterior dome measure 1.9 cm greatest dimension and 3 Hounsfield units compatible with a cyst. This may be related to the patient's polycystic kidney pattern. GALLBLADDER AND BILE DUCTS: Gallbladder appears distended but is otherwise unremarkable. PANCREAS: Unremarkable. No gross lesion or ductal dilatation. SPLEEN: Unremarkable. ADRENALS: Unremarkable. No mass. KIDNEYS AND URETERS: Innumerable cysts enlarged the bilateral kidneys suggesting polycystic kidney disease. No prominent obstructive uropathy. Note is made of a likely transplant kidney at the right hemipelvis which appears hydronephrotic moderately. VASCULATURE: A large infrarenal abdominal aortic aneurysm is identified measuring 8.1 x 7.8 x 12.1 cm (transverse by anteroposterior by superoinferior dimensions). Partially calcified associated mural plaque is favored over potential chronic dissection. Greatest aneurysm terminates immediately proximal bifurcation with aneurysmal bilateral common iliac arteries measure 1.5 cm greatest transverse dimension the right and 1.4 cm in the left. Internal and external iliac arteries are atherosclerotic but non aneurysmal. BOWEL: Scattered colonic diverticulosis is appreciate without definite diverticulitis. The pattern is most contrary at the sigmoid and proximal ascending/cecal segments. Opacified stomach and small bowel appear unremarkable grossly. APPENDIX: Not clearly identified. PERITONEUM: Unremarkable. No free fluid. No free air. LYMPH NODES: Unremarkable. No enlarged lymph nodes. BLADDER: Distended but otherwise unremarkable. REPRODUCTIVE: Unremarkable. BONES: No acute fracture. OTHER FINDINGS: Hazy density of the intraperitoneal as well as extrarenal fat may indicate anasarca. Cachectic body habitus is suggested as well. IMPRESSION: 1. 1.7 cm non solid nodule seen at the right upper lobe, pleural-based, potentially malignant. No significant lymphadenopathy lymphadenopathy. No pleural effusions or additional nodule/mass. Consider tissue diagnosis utilized CT-guided biopsy or potential PET-CT. 2. No acute infiltrate identified bilaterally. 3. Few small lucencies are scattered throughout the liver potentially related to apparent polycystic kidney disease. Lack images contrast limits evaluation. 4. Enlarged cystic kidneys identified bilateral suggesting polycystic kidney disease with the right pelvic transplant kidney identified which appears mildly hydronephrotic. 5. A descending thoracic aortic aneurysms appreciated measuring up to 4.2 cm greatest dimension terminating at the upper abdominal aorta. An infrarenal abdominal aortic aneurysm measures 8.7 x 7.8 x 12.1 cm terminating immediately proximal to the bifurcation. Calcified prominent intramural plaque is favored over dissection related to the abdominal aorta aneurysmal segment. Moderate bilateral common iliac artery aneurysms are identified. 6. Other lesser findings as discussed above.
[2017-02-27 17:29] LABS: FOLATE 15.2 ng/mL
[2017-02-27] MEDS ORDERED: DiphenhydrAMINE 50 mg/ml Inj ONE (18:56)
--- NOTE | 2017-02-27 19:09 | CP.PCM.CON ---
History of Present Illness - History of Present Illness History of Present Illness: 66M w/ PMHx of HTN, polycystic kidney disease, AAA, anemia, presented to the ED w/ altered mental status. Patient was found to be hypoglycemic on presentation. Patient's Hgb was found to be 6.7, 2 units of PRBcs were ordered and administered. Vascular surgery was consulted for abdominal ultrasound finding of AAA measuring 6.9cm. As per patient he has been aware of this finding but has not had the chance to follow up. Patient states he would like to be transferred over to [facility] once medically stable, as he will like to follow up with his vascular surgeon, Dr. Dewitt. The patient's family expressed the same feeling. At time of examination patient only complained of some left lower leg tenderness which he has been experiencing for a couple of weeks. Duplex U/S of lower extremity demonstrated no evidence of DVTs. Currently patient denies, headahces, chest pain/SOB, n/v/d, abdominal pain. PMHx:as stated above PSHx: Renal Transplant, Aortic Valve Replacement, Bilateral Inguinal Hernia Repair Social Hx: Denies ETOH use, Denies illicit drugs, Former Tobacco use Allergies: NKDA Review of Systems - Review of Systems Review of Systems: 12 pt ROS unremarkable, except as stated in HPI. Past Patient History - Infectious Disease Hx of Infectious Diseases: None - Past Medical History & Family History Past Medical History?: Yes - Past Social History Smoking Status: Former Smoker Alcohol: None Drugs: Denies - CARDIAC Hx Cardiac Disorders: Yes Hx Hypertension: Yes - PULMONARY Hx Respiratory Disorders: No - NEUROLOGICAL Hx Neurological Disorder: No - HEENT Hx HEENT Problems: Yes (wears glasses) - RENAL Hx Chronic Kidney Disease: Yes Hx Dialysis: Yes (left arm fistula) Date of Last Dialysis Treatment: 10/08/06 Other/Comment: Kidney transplant - ENDOCRINE/METABOLIC Hx Endocrine Disorders: Yes Hx Diabetes Mellitus Type 2: Yes - HEMATOLOGICAL/ONCOLOGICAL Hx Blood Disorders: Yes Hx Anemia: Yes - INTEGUMENTARY Hx Dermatological Problems: No - MUSCULOSKELETAL/RHEUMATOLOGICAL Hx Musculoskeletal Disorders: No - GASTROINTESTINAL Hx Gastrointestinal Disorders: No - GENITOURINARY/GYNECOLOGICAL Hx Genitourinary Disorders: Yes Other/Comment: bilateral inguinal hernias (repaired) - PSYCHIATRIC Hx Psychophysiologic Disorder: No Hx Substance Use: No - SURGICAL HISTORY Hx Kidney Transplant: Yes Other/Comment: Aortic valve replacement - ANESTHESIA Hx Anesthesia: Yes Hx Anesthesia Reactions: No Hx Malignant Hyperthermia: No Meds Allergies/Adverse Reactions: Allergies Allergy/AdvReac Type Severity Reaction Status Date / Time No Known Allergies Allergy Verified 01/20/17 11:38 - Medications Medications: Current Medications Cinacalcet (Sensipar) 30 mg PO DAILY [facility] Last Admin: 02/27/17 17:16 Dose: Not Given Cyanocobalamin (Vitamin B12 1000 Mcg Tab) 1,000 mcg PO DAILY [facility] Last Admin: 02/27/17 19:00 Dose: 1,000 mcg Dextrose (Dextrose 50% Inj) 50 ml IVP PRN PRN PRN Reason: Low blood sugar Ezetimibe (Zetia) 10 mg PO DAILY [facility] Last Admin: 02/27/17 19:00 Dose: 10 mg Dextrose/Sodium Chloride (Dextrose 5%/0.9% Ns 1000 Ml) 1,000 mls @ 100 mls/hr IV .Q10H [facility] Last Admin: 02/27/17 16:08 Dose: 100 mls/hr Insulin Human Lispro (Humalog Low) 0 units SC AC [facility] PRN Reason: Protocol Last Admin: 02/27/17 17:16 Dose: Not Given Mycophenolate Mofetil (Cellcept Cap) 500 mg PO BID [facility] Last Admin: 02/27/17 18:08 Dose: 500 mg Pantoprazole Sodium (Protonix Ec Tab) 40 mg PO 0600,1600 [facility] Last Admin: 02/27/17 16:11 Dose: 40 mg Prednisone (Prednisone Tab) 5 mg PO DAILY [facility] Last Admin: 02/27/17 16:11 Dose: 5 mg Tacrolimus (Prograf Cap) 1 mg PO QPM [facility] Last Admin: 02/27/17 18:09 Dose: 1 mg Tacrolimus (Prograf Cap) 2 mg PO QAM [facility] Last Admin: 02/27/17 16:11 Dose: Not Given Trimethoprim/Sulfamethoxazole (Bactrim Ds Tab) 1 tab PO Q48H [facility] PRN Reason: Protocol Last Admin: 02/27/17 09:20 Dose: 1 tab Physical Exam - Constitutional Appears: No Acute Distress - Head Exam Head Exam: NORMOCEPHALIC - Eye Exam Eye Exam: Normal appearance - ENT Exam ENT Exam: Mucous Membranes Moist - Respiratory Exam Respiratory Exam: NORMAL BREATHING PATTERN - Cardiovascular Exam Cardiovascular Exam: +S1, +S2 - GI/Abdominal Exam GI & Abdominal Exam: Pulsatile Mass, Soft. absent: Distended, Firm, Guarding, Rebound, Rigid, Tenderness - Extremities Exam Extremities exam: Positive for: pedal edema, tenderness, pedal pulses present Additional comments: +femoral pulses b/l +popliteal pulses b/l +Doppler PT/DP b/l - Neurological Exam Neurological exam: Alert - Psychiatric Exam Psychiatric exam: Normal Mood - Skin Skin Exam: Dry, Intact, Warm Results - Vital Signs Recent Vital Signs: Last Vital Signs Temp 98 F 02/27/17 18:08 Pulse 77 02/27/17 16:00 Resp 20 02/27/17 16:00 BP 107/55 L 02/27/17 16:00 Pulse Ox 100 02/27/17 13:04 - Labs Result Diagrams: 02/27/17 07:26 02/27/17 07:00 Labs: Laboratory Results - last 24 hr 02/27/17 02/27/17 02/27/17 08:33 08:54 10:20 POC Glucose (mg/dL) 80 Uric Acid 13.0 H Iron 12 L TIBC 237 L % Saturation 5 L Ferritin 302.0 Vitamin B12 > 1000 H Folate 15.2 02/27/17 02/27/17 16:48 17:38 POC Glucose (mg/dL) 96 132 H Uric Acid Iron TIBC % Saturation Ferritin Vitamin B12 Folate Assessment & Plan - Assessment and Plan (Free Text) Assessment: 66M w/ large, 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 However patient and patient's family have agreed that they will like the patient to be transferred to [facility] once medically stable. Patient states there he sees vascular surgeon, Dr. Dewitt, who is aware of his condition. -Monitor vitals -Further recs per Dr. Benedict Nye PGY-[address] Mcmullen
[2017-02-27 20:34] LABS: GRAN # 8.51 (1.4-6.5); GRAN % 96.9 % (50.0-68.0); LYMPH # 0.1 (1.2-3.4); LYMPH % 1.6 % (22.0-35.0); MEAN CORPUSCULAR HEMOGLOBIN 24.2 pg (25.0-35.0); MEAN CORPUSCULAR HGB CONC 32.3 g/dl (31.0-37.0); MONO # 0.1 (0.1-0.6); MONO % 1.5 % (1.0-6.0); PLATELET COUNT 174 10^3/uL (120.0-450.0); RED CELL DISTRIBUTION WIDTH 16.3 % (11.5-14.5); WHITE BLOOD COUNT 8.8 10^3/ul (4.5-11.0)
[2017-02-27 20:35] LABS: VENOUS BLOOD GAS BASE EXCESS -8.5 mmol/L (0.0-2.0); VENOUS BLOOD PH 7.38 (7.32-7.43)
[2017-02-27 20:53] LABS: HEMATOCRIT 18.6 % (42.0-52.0)
[2017-02-27] MEDS ORDERED: Cefepime IV 2 gm in NS 2 GM/100 ML BAG IVPB STA (20:56)
--- NOTE | 2017-02-27 23:14 | CARD ---
APPROVED REPORT EKG Measurement Heart [id number] <Conclusion> Normal sinus rhythm Left ventricular hypertrophy with QRS widening Nonspecific ST and T wave abnormality Abnormal ECG
[2017-02-27] MEDS ORDERED: Vancomycin 1gm in NS 250ml 1 GM/250 ML BAG IVPB STA (23:25)
[2017-02-28] MEDS: Pantoprazole 40 mg EC Tab PO SCH ×2 (06:04→19:32)
[2017-02-28] MEDS: Dextrose 5%/0.9% NS 1,000 ML IV SCH (06:06)
--- NOTE | 2017-02-28 06:56 | HP ---
HISTORY OF PRESENT ILLNESS: The patient is a 66-year-old male who was admitted under my service in 01/2017, came to the [facility] Emergency Room by [facility]. The patient presented with complaint of and neurological deafness. The patient's family called 911. The patient's BLS [facility] arrived at the patient's scene. The patient was found by the family lying on the floor with slurred speech and weakness. The patient came to the emergency room with above. According to the ER physician evaluation note, the patient was initially presented as a code stroke. The patient was brought into the [facility] for above. The patient was found to be hypoglycemic and required D50 dextrose treatment for hypoglycemia. CODE STATUS: Full code. LIVING WILL AND ADVANCED DIRECTIVE: None. ALLERGIES: NONE. HEIGHT: 6 feet 1 inch. WEIGHT: 200 pounds. BMI: 26.4. HOME MEDICATIONS: Norvasc 10 mg twice a day, Prograf 2 mg a.m., 1 mg p.m. Bactrim DS 1 tablet Saturday, Saturday, and Saturday, prednisone 5 mg daily, Pravachol 40 mg daily, CellCept 500 mg twice a day, Lopressor 100 mg twice a day, hydralazine 25 mg twice a day, Humalog 20 units subcu daily, Amaryl 2 mg daily, Lasix 20 mg twice a day, ferrous gluconate 324 mg twice a day, Zetia 10 mg daily, Procrit 40,000 monthly subcu, vitamin B12 1000 mcg daily, Catapres 0.3 mg twice a day, Sensipar 30 mg daily. SOCIAL HISTORY: Positive for former smoker. Denies alcohol. Denies substance abuse. FAMILY HISTORY: Not available. OCCUPATIONAL HISTORY: Not available. PAST MEDICAL HISTORY: The patient's past medical history is significant for insulin-requiring diabetes mellitus, history of chronic refractory recurrent anemia, history of polycystic kidney disease, history of renal transplant, history of dialysis, end-stage renal disease, hemodialysis treatment, status post renal transplant, history of hypertension, history of chronic kidney disease, history of polycystic kidney disease, history of iron deficiency anemia, history of abdominal aortic aneurysm with aortic dissection. The patient's past medical history is also significant for poor compliance, history of recurrent persistent normocytic to microcytic anemia, history of multiple IV Venofer treatment, history of packed red blood cell transfusion, history of chronic kidney disease stage IV, history of cadaveric renal transplant, history of bradycardia, history of left ventricular hypertrophy, hypertensive cardiovascular disease and age indeterminate inferior infarct and lateral coronary ischemic changes, history of bovine aortic valve replacement and prosthesis, history of iron deficiency anemia, history of hypertension, history of renal transplant, history of recurrent persistent microcytic to normocytic anemia, history of insulin-requiring diabetes mellitus, history of descending aortic aneurysm and abdominal aortic aneurysm, status post aortic valve replacement, history of secondary hyperparathyroidism. The patient's past medical history is significant for end-stage renal disease, history of renal dialysis dependent, history of renal transplant, history of aortic valve replacement, history of vitamin B12 deficiency, history of secondary hyperparathyroidism, history of anemia, history of multiple recurrent blood transfusions, history of left upper extremity AV fistula placement, history of inguinal herniorrhaphy, history of anemia of chronic disease, history of uncontrolled diabetes mellitus with hypo and hyperglycemia, history of iron deficiency, history of bilateral lower extremity venous stasis, history of polycystic kidney disease, history of autosomal dominant polycystic kidney disease, history of hyperkalemia, history of hyperosmolar nonketotic coma, history of cadaveric renal transplant, history of possible noncompliance, history of intrahepatic biliary and ductal dilatation, history of hepatic cyst, history of descending thoracic aortic aneurysm and dilatation and aneurysm dilatation of the infrarenal abdominal aorta, history of dissecting thoracic abdominal aneurysm, history of prostatomegaly, history of type B aortic dissection involving the descending aorta in 2007, history of hydropic gallbladder, history of distal abdominal aortic aneurysm with aortic dissection. The patient is seen in stretcher #[id number] in the emergency room. The patient is seen lying in the bed. PHYSICAL EXAMINATION GENERAL: The patient is seen lying in the bed. The patient appears to be chronically ill appearing. VITAL SIGNS: T-max is 97.8-99.5, heart rate 63 to 76 to 71, blood pressure is 111/53, 105/60, 107/65. HEENT: Head examination normocephalic and atraumatic. HEENT examination shows pale conjunctivae. Anicteric sclerae. No oropharyngeal lesion. No neck rigidity. CHEST: Examination showed median sternotomy surgical scar. LUNGS: Examination shows occasional rhonchi. CARDIOVASCULAR: S1, S2. Positive systolic murmur at the right second intercostal space, left second intercostal space, and left sternal border. ABDOMEN: Soft. Positive bowel sounds. GENITALIA: Male. RECTAL: Deferred. EXTREMITIES: Extremity shows 1+ to 2+ pitting edema of the lower extremity, questionable bilateral calf tenderness. MUSCULOSKELETAL: Examination shows a body mass index of 26.4. NEUROLOGIC: Cranial nerves II-XII limited. Gait examination is not tested. PSYCHIATRIC: Examination is negative for auditory or visual hallucination. Negative for anxiety and depression. Negative for suicidal or homicidal ideation. DIAGNOSTICS: WBC 6.2, hemoglobin and hematocrit 6.4 and 21, MCV 75, platelet 233, granulocytes 97% segs, reticulocyte count 0.74. PT/PTT 12.8/38.7, INR 1.19, lactic acid 1.4. Sodium 137, potassium 4.0, chloride 103, CO2 15, anion gap 23, BUN 15, creatinine 5.4, GFR 13, glucose 143, hemoglobin A1c 6.5, calcium 6.3, uric acid 13, AST 111, ALT 61, troponin 0.07, cholesterol 85, HDL 28, B12 greater than 1000, folate 15.2, iron 12, TIBC 237, saturation 5. The patient was seen in the emergency room with the medical staff services manager. Since the patient arrived via the [facility] ambulance, the patient was initially treated, was taken as a code stroke, for which the patient had a CT scan of the head, but later on, the patient was found to be hypoglycemic and patient was treated for hypoglycemia. The patient's CT scan of the head was reviewed. The patient's chest x-ray was reviewed. The patient's abdominal examination shows a midline pulsatile aorta. The patient's chest x-ray, which was done, was reviewed. The patient had an abdominal Doppler done, which was reviewed, had a venous Doppler of the lower extremity done, which was reviewed. The patient had a CAT scan of the abdomen and pelvis and chest done, which was reviewed. The patient's EKG done in the emergency room shows sinus rhythm, left ventricular hypertrophy, Q-wave in 3, S wave in V4, V5, V6. IMPRESSION: 1. Severe symptomatic hypoglycemia, mistaken as code stroke. 2. Episodic confusion. 3. Transient right-sided weakness. 4. Questionable dysarthria. 5. Weakness. 6. Hypotension. 7. Leukocytosis with granulocytosis. 8. Microcytic anemia. 9. Severe symptomatic anemia. 10. Increased anion gap metabolic acidosis. 11. History of end-stage renal disease, hemodialysis dependent, and polycystic kidney disease with chronic kidney disease stage IV. 12. History of insulin dependent requiring diabetes mellitus with hypoglycemia. 13. Uncontrolled insulin-requiring diabetes mellitus with hypoglycemia and hemoglobin A1c of 6.5. 14. Hypocalcemia. 15. Hyperuricemia. 16. Possible iron deficiency. 17. Transaminitis. 18. Cerebral cortical atrophy of the brain. 19. Left sphenoid sinus opacification suggestive emancipated mucus. 20. Cerebral cortical atrophy of the brain. 21. Aortic valve prosthesis. 22. Median sternotomy. 23. Cardiomegaly. 24. Moderately prominent descending thoracic aorta and descending thoracic aortic aneurysm. 25. Cardiomegaly. 26. Large chronic thoracoabdominal dissection with aneurysmal dilatation with dissection involving the mesenteric vessel and dilated infrarenal abdominal aortic aneurysm measuring 6.9 cm. 27. Bilateral lower extremity venous stasis. 28. Right upper lobe 1.7-cm inhomogeneous pulmonary nodule. 29. Bibasilar atelectasis. 30. Median sternotomy. 31. Status post aortic valve replacement. 32. Ascending thoracic aortic aneurysm measuring 3.9 cm and distal ascending thoracic and aortic aneurysm 3.7 cm in the posterior portion of the arch. 33. 3.5 cm proximal descending segment. 34. Thoracic aortic aneurysm 4.2 cm at abdominal hiatus. 35. Cardiomegaly. 36. Hepatic cyst. 37. Polycystic kidney. 38. Distended gallbladder. 39. Right hemipelvis cadaveric renal transplant with morbid hydronephrosis. 40. Large infrarenal abdominal aortic aneurysm measuring 8.1 x 7.8 x 12.1 cm with partially calcified mural plaque. 41. Colonic diverticulosis. 42. Anasarca. 43. Cachexia. 44. Hypertensive cardiovascular disease. 45. Severe symptomatic anemia. 46. Severe symptomatic hypoglycemia with transient dysarthria and confusion. 47. Large chronic thoracoabdominal aortic aneurysm dilatation and dissection and infrarenal abdominal aortic aneurysm. 48. Chronic kidney disease stage IV/V. 49. Status post renal allograft. 50. Post transplant diabetes. 51. Severe symptomatic microcytic anemia. 52. History of hypertension, history of dyslipidemia, history of iron deficiency, history of secondary hyperparathyroidism. PLAN: The patient is to be admitted to telemetry. The patient has been ordered serial lab, transfusion of PRBC ordered, blood cultures ordered. The patient's consultation is Gastroenterology, Nephrology, and Vascular Surgery. Current medications are Tylenol p.r.n. for fever, Sensipar 30 mg daily, vitamin B12 1000 mcg daily, the patient is on D5 normal saline at 100 cc an hour. The patient was given 2 IV push dextrose. The patient was started on Zetia 10 mg daily, Humalog low dose sliding scale coverage. The patient is on Lopressor. The patient is on CellCept 500 mg twice a day, Protonix 40 mg twice a day, prednisone 5 mg daily, Bactrim 1 tablet every 48 hours, Prograf 1 mg p.m. and 2 mg a.m. The patient has been ordered EKG. The patient has been ordered consistent carbohydrate diet. Transfusion of 2 units of PRBC has been ordered. At present, the patient and the patient's family and next of kin was explained about the overall the patient's [id number] prognosis secondary to multiple comorbidities above, was also explained to the patient by Nephrology, Vascular Surgery, and Gastroenterology. At present, the patient will be given blood transfusion till patient stabilize and then the patient has expressed his wishes to be transferred to [facility] for further management of his medical issues including abdominal aortic and thoracic aneurysm. Overall, the patient's prognosis is [id number]. CONDITION: Serious. Dictated and electronically signed, not read. Mart Knox MD
[2017-02-28 07:13] LABS: BASO # 0.01 K/mm3 (0.0-2.0); BASO % 0.1 % (0.0-3.0); GRAN # 10.35 (1.4-6.5); GRAN % 95.8 % (50.0-68.0); LYMPH # 0.2 (1.2-3.4); LYMPH % 1.6 % (22.0-35.0); MEAN CELL VOLUME 75.8 fl (80.0-105.0); MEAN CORPUSCULAR HEMOGLOBIN 23.2 pg (25.0-35.0); MEAN CORPUSCULAR HGB CONC 30.6 g/dl (31.0-37.0); MONO # 0.3 (0.1-0.6); MONO % 2.5 % (1.0-6.0); PLATELET COUNT 181 10^3/uL (120.0-450.0); RED CELL DISTRIBUTION WIDTH 17.2 % (11.5-14.5); WHITE BLOOD COUNT 10.8 10^3/ul (4.5-11.0)
[2017-02-28 07:37] LABS: HEMATOCRIT 22.2 % (42.0-52.0)
--- NOTE | 2017-02-28 07:44 | RAD ---
HISTORY: fever COMPARISON: Portable chest 02/27/2017. TECHNIQUE: Chest PA and lateral FINDINGS: LUNGS: Linear atelectasis identified at the right base. No definite infiltrate bilaterally. PLEURA: No significant pleural effusion identified. No pneumothorax apparent. CARDIOVASCULAR: Sternotomy wires and prosthetic cardiac valve again identified. Density posterior the heart again reflects descending thoracic aortic aneurysm better seen in separate chest abdomen and pelvis CT 02/27/2017. Cardiomegaly is stable. No pulmonary venous congestion. OSSEOUS STRUCTURES: No significant abnormalities. VISUALIZED UPPER ABDOMEN: Normal. OTHER FINDINGS: None. IMPRESSION: Limited linear atelectasis right lung base with descending thoracic aortic aneurysmal dilatation again appreciated. Cardiomegaly appears stable. No interval infiltrate or pleural effusion bilaterally.
[2017-02-28 08:22] LABS: ALB/GLOB RATIO 1.1 (1.1-1.8); BILIRUBIN,DIRECT 0.6 mg/dL (0.0-0.4); BILIRUBIN,TOTAL 0.6 mg/dL (0.2-1.3); MAGNESIUM 1.4 mg/dL (1.7-2.2); PHOSPHOROUS 6.4 mg/dL (2.5-4.5); TOTAL PROTEIN 5.6 g/dL (5.8-8.3)
[2017-02-28 08:32] LABS: CALCIUM 6.3 mg/dL (8.4-10.5)
[2017-02-28] MEDS ORDERED: Magnesium Sulfate 2 GM in Sodium Chloride 0.9% 100 ML IVPB ONE (08:40)
[2017-02-28] MEDS: Sodium Bicarbonate 8.4% 150 MEQ in Dextrose 5% In Water 1,000 ML IV SCH ×2 (08:45→19:29)
[2017-02-28] MEDS ORDERED: Cefepime IV 2 gm in NS 2 GM/100 ML BAG IVPB SCH (10:00)
[2017-02-28] MEDS: Insulin Lispro (humaLOG) LOW Coverage SC SCH ×3 (10:06→17:27)
[2017-02-28] MEDS ORDERED: Meropenem 500 MG in Sodium Chloride 0.9% 100 ML IVPB SCH (13:15)
--- NOTE | 2017-02-28 13:16 | CP.PCM.CON ---
History of Present Illness - History of Present Illness History of Present Illness: 66 year old male with PMH of polycystic kidney disease S/P renal transplant about 10 years ago, HTN, abdominal aortic aneurysm with history of aortic dissection, S/P aortic valve replacement, dyslipidemia, S/P bilateral inguinal hernia repair, came in to [facility] because he was found by his family confused and weak. In the ED, he was found to have hypoglycemia which was corrected with improved clinical picture. The patient states that he has been having chills and body aches for 2-3 days now, no rhinorrhea, no cough, no sore throat, no abdominal pain, no headache or dizziness, no chest pain, no SOB , no diarrhea. Rapid flu test is positive and blood cx are showing gram negative bacilli. Infectious Diseases consult is requested to further evaluate and manage. Review of Systems - Review of Systems All systems: reviewed and no additional remarkable complaints except (as per HPI ) Past Patient History - Infectious Disease Hx of Infectious Diseases: None - Past Medical History & Family History Past Medical History?: Yes - Past Social History Smoking Status: Former Smoker Alcohol: None Drugs: Denies - CARDIAC Hx Cardiac Disorders: Yes Hx Hypertension: Yes - PULMONARY Hx Respiratory Disorders: No - NEUROLOGICAL Hx Neurological Disorder: No - HEENT Hx HEENT Problems: Yes (wears glasses) - RENAL Hx Chronic Kidney Disease: Yes Hx Dialysis: Yes (left arm fistula) Date of Last Dialysis Treatment: 10/08/06 Other/Comment: Kidney transplant - ENDOCRINE/METABOLIC Hx Endocrine Disorders: Yes Hx Diabetes Mellitus Type 2: Yes - HEMATOLOGICAL/ONCOLOGICAL Hx Blood Disorders: Yes Hx Anemia: Yes - INTEGUMENTARY Hx Dermatological Problems: No - MUSCULOSKELETAL/RHEUMATOLOGICAL Hx Musculoskeletal Disorders: No - GASTROINTESTINAL Hx Gastrointestinal Disorders: No - GENITOURINARY/GYNECOLOGICAL Hx Genitourinary Disorders: Yes Other/Comment: bilateral inguinal hernias (repaired) - PSYCHIATRIC Hx Psychophysiologic Disorder: No Hx Substance Use: No - SURGICAL HISTORY Hx Kidney Transplant: Yes Other/Comment: Aortic valve replacement - ANESTHESIA Hx Anesthesia: Yes Hx Anesthesia Reactions: No Hx Malignant Hyperthermia: No Meds Allergies/Adverse Reactions: Allergies Allergy/AdvReac Type Severity Reaction Status Date / Time No Known Allergies Allergy Verified 01/20/17 11:38 - Medications Medications: Current Medications Cinacalcet (Sensipar) 30 mg PO DAILY [place] Last Admin: 02/27/17 17:16 Dose: Not Given Cyanocobalamin (Vitamin B12 1000 Mcg Tab) 1,000 mcg PO DAILY [facility] Last Admin: 02/27/17 19:00 Dose: 1,000 mcg Dextrose (Dextrose 50% Inj) 50 ml IVP PRN PRN PRN Reason: Low blood sugar Ezetimibe (Zetia) 10 mg PO DAILY [facility] Last Admin: 02/27/17 19:00 Dose: 10 mg Dextrose/Sodium Chloride (Dextrose 5%/0.9% Ns 1000 Ml) 1,000 mls @ 100 mls/hr IV .Q10H [facility] Last Admin: 02/27/17 16:08 Dose: 100 mls/hr Insulin Human Lispro (Humalog Low) 0 units SC AC [facility] PRN Reason: Protocol Last Admin: 02/27/17 17:16 Dose: Not Given Metoprolol Tartrate (Lopressor) 25 mg PO BID [facility] Last Admin: 02/27/17 17:45 Dose: Not Given Mycophenolate Mofetil (Cellcept Cap) 500 mg PO BID [facility] Last Admin: 02/27/17 18:08 Dose: 500 mg Pantoprazole Sodium (Protonix Ec Tab) 40 mg PO 0600,1600 [facility] Last Admin: 02/27/17 16:11 Dose: 40 mg Prednisone (Prednisone Tab) 5 mg PO DAILY [facility] Last Admin: 02/27/17 16:11 Dose: 5 mg Tacrolimus (Prograf Cap) 1 mg PO QPM [facility] Last Admin: 02/27/17 18:09 Dose: 1 mg Tacrolimus (Prograf Cap) 2 mg PO QAM [facility] Last Admin: 02/27/17 16:11 Dose: Not Given Trimethoprim/Sulfamethoxazole (Bactrim Ds Tab) 1 tab PO Q48H [facility] PRN Reason: Protocol Last Admin: 02/27/17 09:20 Dose: 1 tab Physical Exam - Constitutional Appears: Non-toxic, No Acute Distress - Head Exam Head Exam: NORMAL INSPECTION - Neck Exam Neck exam: Negative for: Lymphadenopathy, Meningismus - Respiratory Exam Respiratory Exam: Decreased Breath Sounds - Cardiovascular Exam Cardiovascular Exam: +S1, +S2 - GI/Abdominal Exam GI & Abdominal Exam: Soft. absent: Tenderness Results - Vital Signs Recent Vital Signs: Last Vital Signs Temp 101.4 F H 02/27/17 21:39 Pulse 60 02/27/17 17:45 Resp 20 02/27/17 16:00 BP 107/55 L 02/27/17 16:00 Pulse Ox 100 02/27/17 13:04 - Labs Result Diagrams: 02/28/17 06:55 02/28/17 06:55 Labs: Laboratory Results - last 24 hr 02/27/17 02/27/17 02/27/17 08:33 08:54 10:20 WBC RBC Hgb Hct MCV MCH MCHC RDW Plt Count Gran % Lymph % (Auto) [place] % (Auto) Eos % (Auto) Baso % (Auto) Gran # Lymph # [place] # Eos # Baso # pO2 VBG pH VBG pCO2 VBG HCO3 VBG Total CO2 VBG O2 Sat (Calc) VBG Base Excess VBG Potassium Sodium Chloride Glucose Lactate FiO2 POC Glucose (mg/dL) 80 Uric Acid 13.0 H Iron 12 L TIBC 237 L % Saturation 5 L Ferritin 302.0 Vitamin B12 > 1000 H Folate 15.2 Venous Blood Potassium 02/27/17 02/27/17 02/27/17 16:48 17:38 20:30 WBC 8.8 D RBC 2.48 L Hgb 6.0 L* Hct 18.6 L* MCV 75.0 L MCH 24.2 L MCHC 32.3 RDW 16.3 H Plt Count 174 Gran % 96.9 H Lymph % (Auto) 1.6 L [place] % (Auto) 1.5 Eos % (Auto) 0.0 L Baso % (Auto) 0.0 Gran # 8.51 H Lymph # 0.1 L [place] # 0.1 Eos # 0.0 Baso # 0.00 pO2 VBG pH VBG pCO2 VBG HCO3 VBG Total CO2 VBG O2 Sat (Calc) VBG Base Excess VBG Potassium Sodium Chloride Glucose Lactate FiO2 POC Glucose (mg/dL) 96 132 H Uric Acid Iron TIBC % Saturation Ferritin Vitamin B12 Folate Venous Blood Potassium 02/27/17 02/27/17 20:30 21:48 WBC RBC Hgb Hct MCV MCH MCHC RDW Plt Count Gran % Lymph % (Auto) [place] % (Auto) Eos % (Auto) Baso % (Auto) Gran # Lymph # [place] # Eos # Baso # pO2 47 VBG pH 7.38 VBG pCO2 25.0 L VBG HCO3 14.8 L VBG Total CO2 15.6 L VBG O2 Sat (Calc) 86.9 H VBG Base Excess -8.5 L VBG Potassium 3.4 L Sodium 131.0 L Chloride 104.0 Glucose 138 H Lactate 1.4 FiO2 21.0 POC Glucose (mg/dL) 145 H Uric Acid Iron TIBC % Saturation Ferritin Vitamin B12 Folate Venous Blood Potassium 3.4 L Assessment & Plan - Assessment and Plan (Free Text) Plan: Assessment Sepsis due to gram negative bacilli bacteremia, source to be determined, on top of systemic viral illness with Influenza polycystic kidney disease S/P renal transplant about 10 years ago HTN abdominal aortic aneurysm with history of aortic dissection S/P aortic valve replacement dyslipidemia S/P bilateral inguinal hernia repair Plan Started patient on Merrem and Tamiflu (renally-adjusted) pending identification and sensitivities of the gram negative bacilli in the blood; follow up urine cx ; reviewed CT scan of the abdomen and pelvis which showed distended gallbladder but Alk Phos is normal CT chest is showing right upper lobe mass - should get CT-guided biopsy when feasible Rapid flu test is positive will monitor clinically
--- NOTE | 2017-02-28 15:06 | CON ---
DATE: REASON FOR CONSULTATION: Abdominal aortic aneurysm. HISTORY OF PRESENT ILLNESS: The patient is a 66-year-old man, who was admitted for bilateral swollen leg to the point that he cannot walk. While in the emergency room, he was found to have a hemoglobin of 6, creatinine of 5.4, and BUN over 100. He was admitted. Of note in his past history, he was dialysis dependant since . He had received a cadaver kidney transplant in 2006, which according to him had been functioning until his leg started swelling. Also, he has type 1 aortic dissection in 2002 that was treated with an aortic valve graft. Since then his aorta has dilated up to the point that surgery was recommended in May. Dr. Wilkinson had been following the patient. Currently, the CAT scan in the emergency room showed aneurysm of 6.9 to 7.3 cm. PAST MEDICAL HISTORY: The patient has severe hypertension. He has medically induced diabetes after his kidney transplant. His renal failure was on the basis of hypertension. PHYSICAL EXAMINATION GENERAL: Cachectic black male in mild short of breath. HEENT: Negative. CHEST: Median sternotomy incision. ABDOMEN: Soft ,tender in the epigastrium on palpation and there is a pulsatile mass in the epigastrium. EXTREMITIES: He has 4+ pitting edema of his entire lower extremities bilaterally. Femoral pulses only palpable bilaterally. There is no palpable distal pulse. LABORATORY DATA: CAT scan show an aortic dissection with the thoracic aorta diameter 5 to 6 cm and the infrarenal portion at 6.9 to 7.3. It was performed without contrast due to the patient's creatinine. IMPRESSION: Aortic dissection, abdominal aortic aneurysm, symptomatic. The patient was discussed with Dr. Rashaun Wilkinson at [facility] and he has accepted the patient in transfer to [facility]. This was also discussed with Dr. Knox. Uzma Mcmullen MD
--- NOTE | 2017-02-28 15:34 | CP.PCM.PN ---
Subjective - Date & Time of Evaluation Date of Evaluation: 02/28/17 Time of Evaluation: 10:00 - Subjective Subjective: Vascular Surgery Progress note for Dr. Mcmullen PT S&E at bedside. Patient is on droplet precautions for influenza A. Patient has positive gram neg rods in the blood culture. Patient had a temperature of 103 F overnight. No other acute events overnight. Objective - Vital Signs/Intake and Output Vital Signs (last 24 hours): Temp Pulse Resp BP Pulse Ox 98.7 F 88 18 113/67 100 02/28/17 13:13 02/28/17 13:13 02/28/17 13:13 02/28/17 13:13 02/28/17 06:00 Intake and Output: 02/28/17 02/28/17 06:59 18:59 Intake Total 50 1775 Output Total 400 Balance -350 1775 - Medications Medications: Current Medications Acetaminophen (Tylenol 325 Mg Supp) 325 mg RC Q6H PRN PRN Reason: TEMP>=99.5F Acetaminophen (Tylenol 325mg Tab) 650 mg PO Q6H PRN PRN Reason: TEMP>=99.5F Last Admin: 02/28/17 08:22 Dose: 650 mg Calcitriol (Rocaltrol) 0.25 mcg PO DAILY [facility] Last Admin: 02/28/17 09:55 Dose: 0.25 mcg Calcium Carbonate (Caltrate) 1,200 mg PO BID [facility] Last Admin: 02/28/17 09:54 Dose: 1,200 mg Cinacalcet (Sensipar) 30 mg PO DAILY [facility] Last Admin: 02/27/17 17:16 Dose: Not Given Cyanocobalamin (Vitamin B12 1000 Mcg Tab) 1,000 mcg PO DAILY [facility] Last Admin: 02/28/17 09:55 Dose: 1,000 mcg Dextrose (Dextrose 50% Inj) 50 ml IVP PRN PRN PRN Reason: Low blood sugar Ezetimibe (Zetia) 10 mg PO DAILY [facility] Last Admin: 02/28/17 09:55 Dose: 10 mg Sodium Bicarbonate 150 meq/ (Dextrose) 1,150 mls @ 100 mls/hr IV .[id number] [facility] Last Admin: 02/28/17 08:45 Dose: 100 mls/hr Meropenem 500 mg/ Sodium (Chloride) 100 mls @ 100 mls/hr IVPB Q12 [facility] PRN Reason: Protocol Stop: 03/07/17 13:16 Last Admin: 02/28/17 14:26 Dose: 100 mls/hr Insulin Human Lispro (Humalog Low) 0 units SC AC [facility] PRN Reason: Protocol Last Admin: 02/28/17 11:08 Dose: 3 units Metoprolol Tartrate (Lopressor) 25 mg PO BID [facility] Last Admin: 02/28/17 10:00 Dose: Not Given Mycophenolate Mofetil (Cellcept Cap) 500 mg PO BID [facility] Last Admin: 02/28/17 09:54 Dose: 500 mg Ondansetron HCl (Zofran Inj) 4 mg IVP Q6H PRN PRN Reason: Nausea/Vomiting Oseltamivir Phosphate (Tamiflu Susp) 30 mg PO DAILY [facility] Stop: 03/05/17 10:01 Pantoprazole Sodium (Protonix Ec Tab) 40 mg PO 0600,1600 [facility] Last Admin: 02/28/17 06:04 Dose: 40 mg Prednisone (Prednisone Tab) 5 mg PO DAILY [facility] Last Admin: 02/28/17 09:55 Dose: 5 mg Tacrolimus (Prograf Cap) 1 mg PO QPM [facility] Last Admin: 02/27/17 18:09 Dose: 1 mg Tacrolimus (Prograf Cap) 2 mg PO QAM [facility] Last Admin: 02/28/17 09:54 Dose: 2 mg Trimethoprim/Sulfamethoxazole (Bactrim Ds Tab) 1 tab PO Q48H [facility] PRN Reason: Protocol Last Admin: 02/27/17 09:20 Dose: 1 tab - Labs Labs: 02/28/17 06:55 02/28/17 06:55 PT 12.8 Seconds (9.9-11.8) H 02/27/17 07:26 INR 1.19 (0.93-1.08) H 02/27/17 07:26 APTT 38.7 Seconds (23.7-30.8) H 02/27/17 07:26 - Constitutional Appears: Non-toxic, No Acute Distress - Head Exam Head Exam: NORMAL INSPECTION - Eye Exam Eye Exam: EOMI, Normal appearance - ENT Exam ENT Exam: Mucous Membranes Moist - Neck Exam Neck Exam: Full ROM, Normal Inspection - Respiratory Exam Respiratory Exam: Clear to Ausculation Bilateral, NORMAL BREATHING PATTERN. absent: Accessory Muscle Use, Respiratory Distress - Cardiovascular Exam Cardiovascular Exam: REGULAR RHYTHM. absent: Bradycardia, Tachycardia - GI/Abdominal Exam GI & Abdominal Exam: Soft, Pulsatile Mass. 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 Dewitt's service -F/u EKG -Transfuse PRBCs prn -BP control -Patient may require surgical intervention to repair AAA, endovascular vs open AAA. However patient and patient's family have agreed that they will like the patient to be transferred to [facility] once medically stable. Patient states there he sees vascular surgeon, Dr. Dewitt, who is aware of his condition. -Monitor vitals -Further recs per Dr. Benedict Esquivel, DO PGY1
--- NOTE | 2017-02-28 15:35 | CP.PCM.DIS ---
Provider - Provider Date of Admission: 02/27/17 08:30 Attending physician: Mart Knox MD Consults: GI: Art Nephrology: Liam Vascular Surgery: Bennie Mcmullen Time Spent in preparation of Discharge (in minutes): 45 Hospital Course - Lab Results Lab Results: Micro Results 02/27/17 09:55 Blood-Venous Blood Culture - Preliminary 02/27/17 10:15 Blood-Venous Blood Culture - Preliminary Gram Negative Brad 02/27/17 10:15 Blood-Venous Gram Stain - Final Most Recent Lab Values WBC 10.8 10^3/ul (4.5-11.0) D 02/28/17 06:55 RBC 2.93 10^6/uL (3.5-6.1) L 02/28/17 06:55 Hgb 6.8 g/dL (14.0-18.0) L* 02/28/17 06:55 Hct 22.2 % (42.0-52.0) L 02/28/17 06:55 MCV 75.8 fl (80.0-105.0) L 02/28/17 06:55 MCH 23.2 pg (25.0-35.0) L 02/28/17 06:55 MCHC 30.6 g/dl (31.0-37.0) L 02/28/17 06:55 RDW 17.2 % (11.5-14.5) H 02/28/17 06:55 Plt Count 181 10^3/uL (120.0-450.0) 02/28/17 06:55 Gran % 95.8 % (50.0-68.0) H 02/28/17 06:55 Lymph % (Auto) 1.6 % (22.0-35.0) L 02/28/17 06:55 [place]kin % (Auto) 2.5 % (1.0-6.0) 02/28/17 06:55 Eos % (Auto) 0.0 % (1.5-5.0) L 02/28/17 06:55 Baso % (Auto) 0.1 % (0.0-3.0) 02/28/17 06:55 Gran # 10.35 (1.4-6.5) H 02/28/17 06:55 Lymph # 0.2 (1.2-3.4) L 02/28/17 06:55 [place]kin # 0.3 (0.1-0.6) 02/28/17 06:55 Eos # 0.0 (0.0-0.7) 02/28/17 06:55 Baso # 0.01 K/mm3 (0.0-2.0) 02/28/17 06:55 Neutrophils % (Manual) 96 % (50.0-70.0) H 02/27/17 07:26 Lymphocytes % (Manual) 4 % (22.0-35.0) L 02/27/17 07:26 Monocytes % (Manual) TEST NOT PERFORMED 02/27/17 07:26 Toxic Granulation 1+ 02/27/17 07:26 Platelet Evaluation Normal (NORMAL) 02/27/17 07:26 Large Platelets Present 02/27/17 07:26 Polychromasia Slight 02/27/17 07:26 Hypochromasia 3+ 02/27/17 07:26 Poikilocytosis (manual 1+ 02/27/17 07:26 Anisocytosis (manual) 2+ 02/27/17 07:26 Microcytosis (manual) 1+ 02/27/17 07:26 Tear Drop Cells Slight 02/27/17 07:26 Ovalocytes Slight 02/27/17 07:26 Neva Cells 1+ 02/27/17 07:26 Acanthocytes (Spur) Slight 02/27/17 07:26 Schistocytes Slight 02/27/17 07:26 Retic Count 0.74 % (0.5-1.5) 02/27/17 08:30 PT 12.8 Seconds (9.9-11.8) H 02/27/17 07:26 INR 1.19 (0.93-1.08) H 02/27/17 07:26 APTT 38.7 Seconds (23.7-30.8) H 02/27/17 07:26 pO2 47 mm/Hg (30-55) 02/27/17 20:30 VBG pH 7.38 (7.32-7.43) 02/27/17 20:30 VBG pCO2 25.0 (40-60) L 02/27/17 20:30 VBG HCO3 14.8 mmol/l (21-28) L 02/27/17 20:30 VBG Total CO2 15.6 mmol.L (22-28) L 02/27/17 20:30 VBG O2 Sat (Calc) 86.9 % (40-65) H 02/27/17 20:30 VBG Base Excess -8.5 mmol/L (0.0-2.0) L 02/27/17 20:30 VBG Potassium 3.4 mmol/L (3.6-5.2) L 02/27/17 20:30 Sodium 131.0 mmol/L (132-148) L 02/27/17 20:30 Chloride 104.0 mmol/L (98-107) 02/27/17 20:30 Glucose 138 mg/dl (75-110) H 02/27/17 20:30 Lactate 1.4 mmol/L (0.7-2.1) 02/27/17 20:30 FiO2 21.0 % 02/27/17 20:30 Sodium 138 mmol/L (132-148) 02/28/17 06:55 Potassium 4.0 mmol/L (3.6-5.0) 02/28/17 06:55 Chloride 104 mmol/L (98-107) 02/28/17 06:55 Carbon Dioxide 14 mmol/L (21-33) L 02/28/17 06:55 Anion Gap 24 (10-20) H 02/28/17 06:55 BUN 104 mg/dL (7-21) H 02/28/17 06:55 Creatinine 5.3 mg/dL (0.5-1.4) H 02/28/17 06:55 Est GFR ( Amer) 13 02/28/17 06:55 Est GFR (Non-Af Amer) 11 02/28/17 06:55 POC Glucose (mg/dL) 268 mg/dL (65-110) H 02/28/17 11:05 Random Glucose 178 mg/dL (70-110) H 02/28/17 06:55 Hemoglobin A1c 6.5 % (4.2-6.5) D 02/27/17 07:26 Fructosamine 296 umol/L (190-270) H 02/27/17 10:20 Uric Acid 13.0 mg/dL (3.5-8.5) H 02/27/17 08:54 Calcium 6.3 mg/dL (8.4-10.5) L* 02/28/17 06:55 Phosphorus 6.4 mg/dL (2.5-4.5) H 02/28/17 06:55 Magnesium 1.4 mg/dL (1.7-2.2) L 02/28/17 06:55 Iron 12 ug/dL (45-180) L 02/27/17 10:20 TIBC 237 ug/dL (261-462) L 02/27/17 10:20 % Saturation 5 % (20-55) L 02/27/17 10:20 Erythropoietin 32.7 mIU/mL (2.6-18.5) H 02/27/17 10:20 Ferritin 302.0 ng/mL 02/27/17 08:54 Total Bilirubin 0.6 mg/dL (0.2-1.3) 02/28/17 06:55 Direct Bilirubin 0.6 mg/dL (0.0-0.4) H 02/28/17 06:55 AST 61 U/L (17-59) H D 02/28/17 06:55 ALT 51 U/L (7-56) 02/28/17 06:55 Alkaline Phosphatase 93 U/L (38-126) 02/28/17 06:55 Troponin I 0.07 ng/mL D 02/27/17 07:00 Total Protein 5.6 g/dL (5.8-8.3) L 02/28/17 06:55 Albumin 2.9 g/dL (3.0-4.8) L 02/28/17 06:55 Globulin 2.7 gm/dL 02/28/17 06:55 Albumin/Globulin Ratio 1.1 (1.1-1.8) 02/28/17 06:55 Triglycerides 69 mg/dL (35-160) 02/27/17 07:00 Cholesterol 85 mg/dL (130-200) L 02/27/17 07:00 LDL Cholesterol Direct < 30 mg/dL (0-129) 02/27/17 07:00 HDL Cholesterol 28 mg/dL (29-60) L 02/27/17 07:00 Vitamin B12 > 1000 pg/mL (239-931) H 02/27/17 08:54 Folate 15.2 ng/mL 02/27/17 08:54 Procalcitonin > 200.00 NG/ML (0.19-0.49) H 02/28/17 06:55 PTH Intact Whole Molec 796 pg/mL (14-64) H 02/27/17 10:20 Venous Blood Potassium 3.4 mmol/L (3.6-5.2) L 02/27/17 20:30 Influenza Typ A,B (EIA) Pos for influenza a (NEGATIVE) H 02/28/17 01:00 Blood Type O POSITIVE 02/27/17 07:26 Antibody Screen Negative 02/27/17 07:26 Crossmatch See Detail 02/27/17 07:26 BBK History Checked Patient has bt 02/27/17 07:26 - Hospital Course Hospital Course: 66yo M with PMHx of Polycystic kidney disease s/p renal transplant, HTN, CKD, Iron-deficiency anemia, AAA w/ aortic dissection here for evaluation of AMS. Patient was found to be hypoglycemic and his mentation improved after D50. It was noted that the patient was in the hospital one month ago with severe anemia , however patient left prior to completing work-up. He returns this admission with anemia with Hb of 6.4. PRBC transfusions were initiated. Patient became febrile, patient was found to positive for influenza and was placed on droplet precautions and oseltamavir started. Patient has a history of Renal transplant, creatinine elevated. Nephrology consulted. GI consult obtained, however, Colonoscopy with increased risk as patient has a history of AAA. Patient states that he was followed by Dr. Rashaun Dewitt, however, he has not followed up with him in over a year . Vascular surgery consult obtained. Aortic US - evidence of 6.9cm infrarenal aorta with evidence of chronic dissection involving the mesenteric vessels. Dr. Mcmullen initiated transfer of care to Dr. Rashaun Dewitt at [facility]. Discussed plan and findings with the patient who understands and agrees with plan. All questions and concerns addressed. Discharge Exam - Head Exam Head Exam: ATRAUMATIC, NORMAL INSPECTION, NORMOCEPHALIC - Eye Exam Eye Exam: EOMI, Scleral icterus - ENT Exam ENT Exam: Mucous Membranes Moist - Respiratory Exam Respiratory Exam: NORMAL BREATHING PATTERN. absent: Rales, Rhonchi, Wheezes, Respiratory Distress - Cardiovascular Exam Cardiovascular Exam: RRR. absent: JVD - GI/Abdominal Exam GI & Abdominal Exam: Soft. absent: Distended, Firm, Guarding, Rebound, Rigid - Neurological Exam Neurological exam: Alert, Oriented x3 - Skin Skin Exam: Dry, Pallor, Warm Discharge Plan - Follow Up Plan Condition: STABLE Disposition: OTHER INSTITUTION Additional Instructions: Patient transfer arranged by Dr. Bennie Mcmullen to [facility] under the care of Dr. Rashaun Dewitt: [phone] Patient to be transferred with CD of our imaging studies Transfer when bed available with nursing monitor Please send copy of Medical Record Chart with the patient
[2017-02-28] MEDS ORDERED: Oxycodone/Acetaminophen 5/325 mg Tab PO STA (15:59)
--- NOTE | 2017-02-28 16:23 | CP.PCM.PN ---
<Delores So - Last Filed: 02/28/17 16:28> Subjective - Date & Time of Evaluation Date of Evaluation: 02/28/17 Time of Evaluation: 11:25 - Subjective Subjective: Seen and examined at the bedside earlier this morning. Patient is on droplet precaution for influenza, he had fever of 103. The patient appears lethargic and weak but is awake. So far he has received 2 units of blood and his hemoglobin remains less than 7. Blood cultures positive gram rods. Ct scan chest/ A&P , aortic US and ext US reports reviewed. Objective - Vital Signs/Intake and Output Vital Signs (last 24 hours): Temp Pulse Resp BP Pulse Ox 98.6 F 88 18 113/67 100 02/28/17 15:20 02/28/17 15:20 02/28/17 15:20 02/28/17 15:20 02/28/17 06:00 Intake and Output: 02/28/17 02/28/17 06:59 18:59 Intake Total 50 1775 Output Total 400 Balance -350 1775 - Medications Medications: Current Medications Acetaminophen (Tylenol 325 Mg Supp) 325 mg RC Q6H PRN PRN Reason: TEMP>=99.5F Acetaminophen (Tylenol 325mg Tab) 650 mg PO Q6H PRN PRN Reason: TEMP>=99.5F Last Admin: 02/28/17 08:22 Dose: 650 mg Calcitriol (Rocaltrol) 0.25 mcg PO DAILY [facility] Last Admin: 02/28/17 09:55 Dose: 0.25 mcg Calcium Carbonate (Caltrate) 1,200 mg PO BID [facility] Last Admin: 02/28/17 09:54 Dose: 1,200 mg Cinacalcet (Sensipar) 30 mg PO DAILY [facility] Last Admin: 02/27/17 17:16 Dose: Not Given Cyanocobalamin (Vitamin B12 1000 Mcg Tab) 1,000 mcg PO DAILY [facility] Last Admin: 02/28/17 09:55 Dose: 1,000 mcg Dextrose (Dextrose 50% Inj) 50 ml IVP PRN PRN PRN Reason: Low blood sugar Ezetimibe (Zetia) 10 mg PO DAILY [facility] Last Admin: 02/28/17 09:55 Dose: 10 mg Sodium Bicarbonate 150 meq/ (Dextrose) 1,150 mls @ 100 mls/hr IV .[id number] [facility] Last Admin: 02/28/17 08:45 Dose: 100 mls/hr Meropenem 500 mg/ Sodium (Chloride) 100 mls @ 100 mls/hr IVPB Q12 [facility] PRN Reason: Protocol Stop: 03/07/17 13:16 Last Admin: 02/28/17 14:26 Dose: 100 mls/hr Insulin Human Lispro (Humalog Low) 0 units SC AC [facility] PRN Reason: Protocol Last Admin: 02/28/17 11:08 Dose: 3 units Metoprolol Tartrate (Lopressor) 25 mg PO BID [facility] Last Admin: 02/28/17 10:00 Dose: Not Given Mycophenolate Mofetil (Cellcept Cap) 500 mg PO BID [facility] Last Admin: 02/28/17 09:54 Dose: 500 mg Ondansetron HCl (Zofran Inj) 4 mg IVP Q6H PRN PRN Reason: Nausea/Vomiting Oseltamivir Phosphate (Tamiflu Susp) 30 mg PO DAILY [facility] Stop: 03/05/17 10:01 Oxycodone/Acetaminophen (Percocet 5/325 Mg Tab) 1 tab PO STAT [facility] Stop: 02/28/17 16:00 Pantoprazole Sodium (Protonix Ec Tab) 40 mg PO 0600,1600 [facility] Last Admin: 02/28/17 06:04 Dose: 40 mg Prednisone (Prednisone Tab) 5 mg PO DAILY [facility] Last Admin: 02/28/17 09:55 Dose: 5 mg Tacrolimus (Prograf Cap) 1 mg PO QPM [facility] Last Admin: 02/27/17 18:09 Dose: 1 mg Tacrolimus (Prograf Cap) 2 mg PO QAM [facility] Last Admin: 02/28/17 09:54 Dose: 2 mg Trimethoprim/Sulfamethoxazole (Bactrim Ds Tab) 1 tab PO Q48H [facility] PRN Reason: Protocol Last Admin: 02/27/17 09:20 Dose: 1 tab - Labs Labs: 02/28/17 06:55 02/28/17 06:55 PT 12.8 Seconds (9.9-11.8) H 02/27/17 07:26 INR 1.19 (0.93-1.08) H 02/27/17 07:26 APTT 38.7 Seconds (23.7-30.8) H 02/27/17 07:26 - Constitutional Appears: No Acute Distress, Cachectic - Eye Exam Eye Exam: Normal appearance. absent: Scleral icterus - ENT Exam ENT Exam: Mucous Membranes Moist - Neck Exam Neck Exam: Normal Inspection - Respiratory Exam Respiratory Exam: Decreased Breath Sounds, Rales, Rhonchi, NORMAL BREATHING PATTERN. absent: Respiratory Distress - Cardiovascular Exam Cardiovascular Exam: +S1, +S2 - GI/Abdominal Exam GI & Abdominal Exam: Distended, Soft, Tenderness, Normal Bowel Sounds. absent: Guarding, Pulsatile Mass, Rebound - Extremities Exam Extremities Exam: Pedal Edema. absent: Calf Tenderness - Neurological Exam Neurological Exam: Awake, Oriented x3 - Skin Skin Exam: Dry, Warm Assessment and Plan - Assessment and Plan (Free Text) Assessment: Assessment: Anemia Influenza History of polycystic kidney, status post kidney transplant, Chronic kidney disease Iron deficiency anemia Aortic valve replacement Abdominal aortic aneurysm with aortic dissection Diabetes mellitus, hypoglycemic episode Plan: monitor H&H and transfuse as necessary IV antibiotics as per ID On droplet precautions continueProtonix twice a day continue Prograf On prednisone diet as tolerated Patient was seen by vascular service, patient and family request transfer to [facility] for further evaluation by Dr. Dewitt. Seen and discussed with Dr. Cordova. <Mac Cordova V - Last Filed: 02/28/17 23:37> Objective - Vital Signs/Intake and Output Vital Signs (last 24 hours): Temp Pulse Resp BP Pulse Ox 98.7 F 90 18 112/57 L 98 02/28/17 17:52 02/28/17 17:52 02/28/17 17:52 02/28/17 17:52 02/28/17 17:06 Intake and Output: 02/28/17 03/01/17 18:59 06:59 Intake Total 2100 Balance 2100 - Medications Medications: Current Medications Acetaminophen (Tylenol 325 Mg Supp) 325 mg RC Q6H PRN PRN Reason: TEMP>=99.5F Acetaminophen (Tylenol 325mg Tab) 650 mg PO Q6H PRN PRN Reason: TEMP>=99.5F Last Admin: 02/28/17 08:22 Dose: 650 mg Calcitriol (Rocaltrol) 0.25 mcg PO DAILY [facility] Last Admin: 02/28/17 09:55 Dose: 0.25 mcg Calcium Carbonate (Caltrate) 1,200 mg PO BID [facility] Last Admin: 02/28/17 19:32 Dose: 1,200 mg Cinacalcet (Sensipar) 30 mg PO DAILY [facility] Last Admin: 02/27/17 17:16 Dose: Not Given Cyanocobalamin (Vitamin B12 1000 Mcg Tab) 1,000 mcg PO DAILY [facility] Last Admin: 02/28/17 09:55 Dose: 1,000 mcg Dextrose (Dextrose 50% Inj) 50 ml IVP PRN PRN PRN Reason: Low blood sugar Ezetimibe (Zetia) 10 mg PO DAILY [facility] Last Admin: 02/28/17 09:55 Dose: 10 mg Sodium Bicarbonate 150 meq/ (Dextrose) 1,150 mls @ 100 mls/hr IV .[id number] [facility] Last Admin: 02/28/17 19:29 Dose: 100 mls/hr Meropenem 500 mg/ Sodium (Chloride) 100 mls @ 100 mls/hr IVPB Q12 [facility] PRN Reason: Protocol Stop: 03/07/17 13:16 Last Admin: 02/28/17 14:26 Dose: 100 mls/hr Insulin Human Lispro (Humalog Low) 0 units SC ACHS [facility] PRN Reason: Protocol Last Admin: 02/28/17 22:28 Dose: 2 units Metoprolol Tartrate (Lopressor) 25 mg PO BID [facility] Last Admin: 02/28/17 19:32 Dose: 25 mg Mycophenolate Mofetil (Cellcept Cap) 500 mg PO BID [facility] Last Admin: 02/28/17 19:33 Dose: 500 mg Ondansetron HCl (Zofran Inj) 4 mg IVP Q6H PRN PRN Reason: Nausea/Vomiting Oseltamivir Phosphate (Tamiflu Susp) 30 mg PO DAILY [facility] Stop: 03/05/17 10:01 Pantoprazole Sodium (Protonix Ec Tab) 40 mg PO 0600,1600 [facility] Last Admin: 02/28/17 19:32 Dose: 40 mg Prednisone (Prednisone Tab) 5 mg PO DAILY [facility] Last Admin: 02/28/17 09:55 Dose: 5 mg Tacrolimus (Prograf Cap) 1 mg PO QPM [facility] Last Admin: 02/28/17 19:32 Dose: 1 mg Tacrolimus (Prograf Cap) 2 mg PO QAM [facility] Last Admin: 02/28/17 09:54 Dose: 2 mg Trimethoprim/Sulfamethoxazole (Bactrim Ds Tab) 1 tab PO Q48H [facility] PRN Reason: Protocol Last Admin: 02/27/17 09:20 Dose: 1 tab - Labs Labs: 02/28/17 06:55 02/28/17 06:55 PT 12.8 Seconds (9.9-11.8) H 02/27/17 07:26 INR 1.19 (0.93-1.08) H 02/27/17 07:26 APTT 38.7 Seconds (23.7-30.8) H 02/27/17 07:26 Attending/Attestation - Attestation I have personally seen and examined this patient.: Yes I have fully participated in the care of the patient.: Yes I have reviewed all pertinent clinical information, including history, physical exam and plan: Yes Notes (Text): This is an addendum to GI progress report dictated by Delores So APN.The patient was seen and examined earlier. Medical records, lab studies, imagings were reviewed. Last 24 hours events reviewed. Agreed with the above treatment plan as outlined in Delores So APN's notes the with the addition of the following On examination abdomen soft no tenderness Patient is due for transfer to his [facility]. Patient has a large infrarenal abdominal aortic aneurysm. Would need GI workup to further evaluate the anemia 02/28/17 17:35
--- NOTE | 2017-02-28 16:30 | PN ---
DATE: 02/28/2017 SUBJECTIVE: The patient is seen in room 271, bed 1. The patient is on droplet isolation because of influenza positive. Overnight nurses notes were reviewed. The patient developed fever and persisted to have fever of above 101. The patient's blood transfusion could not be given, second unit could not be given. PHYSICAL EXAMINATION VITAL SIGNS: Today morning, the patient's T-max is 101.4 down to 99.2 to 98.6. Telemetry shows sinus rhythm, sinus tachycardia. Blood pressure is 111/69, 90/55, 107/55, 96/51; respiration 18 to 20 and O2 sat 100%. HEAD: Normocephalic, atraumatic. HEENT: Examination shows pale conjunctivae. Anicteric sclerae. No oropharyngeal lesion. No neck rigidity. CHEST: Kyphosis. Positive median sternotomy surgical scar noted. CARDIOVASCULAR: S1, S2, regular rhythm. Positive systolic murmur, left sternal border, right second intercostal space. ABDOMEN: Soft. Positive midline pulsation, abdominal pulsation noted. GENITALIA: Male. RECTAL: Deferred. EXTREMITIES: Still show swelling and pitting edema of the lower extremities. KRYSTAL stockings are missing despite our orders. MUSCULOSKELETAL: Shows an elevated body mass index of 16.5. Gait examination could not be tested. DIAGNOSTICS: WBC is 10.8, hemoglobin and hematocrit 6.8 and 22.2, platelet 181. Sodium 138, potassium 4.0, chloride 104, CO2 of 14, anion gap 24, BUN 104, creatinine 5.3, GFR 13, glucose 242, 178, 145; calcium is 6.3, phosphorous 6.4, magnesium 1.4, AST 61, total protein 5.6, albumin 2.9, uric acid 13.0. Influenza A and B serologies are positive for influenza A. Blood cultures are negative. Chest x-ray and EKG reviewed. IMPRESSION: 1. High-grade fever. 2. Hypotension. 3. Tachycardia. 4. Positive influenza A. 5. Leukocytosis with granulocytosis. 6. Severe symptomatic microcytic anemia. 7. Hypertension. 8. Granulocytosis. 9. Acute kidney injury with underlying chronic kidney disease, stage 4/5. 10. Increased anion gap metabolic acidosis. 11. Uncontrolled type 1 insulin-requiring diabetes mellitus with hyperglycemia and hypoglycemia. 12. Hyperuricemia. 13. Hypocalcemia. 14. Hyperphosphatemia. 15. Hypomagnesemia. 16. Iron deficiency. 17. Transaminitis. 18. Protein malnutrition with hypoalbuminemia. 19. Secondary hyperparathyroidism with elevated PTH. 20. Status post packed red blood cell transfusion x1. 21. Descending thoracic aortic aneurysm. 22. Cardiomegaly. 23. Polycystic kidney disease. 24. Bilateral lower extremity venous stasis. 25. Left ventricular hypertrophy. 26. Questionable systemic inflammatory response syndrome versus sepsis. PLAN: At this time since the patient's fever has come down, the patient will be ordered transfusion of PRBC for a goal hemoglobin of around 9 to 10. Serial labs have been ordered. Blood cultures have been ordered. Current consultation gastroenterology. The patient has been consulted with hematology, nephrology, infectious disease, and vascular surgery. Procalcitonin level ordered. The patient is presently on Bactrim DS one tab q. 48; calcium gluconate 1000 mg x1 IV piggyback rider. The patient is started on Caltrate, calcium carbonate 1200 mg twice a day. The patient is on CellCept 500 twice a day. The patient is on D5W with 150 mEq of sodium bicarb at 100 mL an hour. The patient is on Humalog low-dose sliding scale coverage. The patient is on Lopressor 25 twice a day. The patient has been ordered magnesium sulfate, tried x1. The patient was given cefepime 2 g IV yesterday. The patient was on prednisone 5 mg daily, Prograf 2 mg in a.m. and 1 mg in p.m., Protonix 40 daily. The patient is on Rocaltrol 0.25 mcg p.o. daily; Sensipar 30 mg daily; Tamiflu 75 mg twice a day; Tylenol suppository p.o. p.r.n. for temperature greater than or equal to 99. The patient was given a dose of vancomycin 1 g yesterday. The patient is on vitamin B12, 1000 mcg daily; Zetia 10 mg daily; Zofran 4 mg IV q. 6 p.r.n. The patient has been ordered Aquino catheter insertion. The patient has been ordered KRYSTAL stockings. The patient has been ordered physical therapy, ambulation therapy, gait training. The patient has been ordered physical therapy out of bed. At present, the patient was explained about his situation with aneurysm and his overall guarded to poor prognosis which he acknowledged and understand. The patient also acknowledged and understand that his overall prognosis is guarded to poor and he is at high risk for surgical situation, and he is a high-risk surgical candidate. At present, the recommendation is to stabilize the patient's hemoglobin, hematocrit and the patient would like to follow up with Dr. Wilkinson [facility]. Dictated and electronically signed, not read. Signing off Mart Knox MD
[2017-02-28 17:06] VITALS: O2SAT 98
[2017-02-28] MEDS ORDERED: Darbepoetin Alfa 100 mcg/ml Inj SC ONE (17:08)
[2017-02-28 17:48] VITALS: BP 112/57
[2017-02-28 17:53] VITALS: PULSE 90; RESP 18; TEMP 98.7
--- NOTE | 2017-02-28 18:08 | PN ---
NEPHROLOGY FOLLOWUP NOTE SUBJECTIVE: A 66-year-old male with past medical history of polycystic kidney disease, status post donor kidney transplant (2006), now CKD stage IV/V, hypertension, post transplant diabetes, persistent anemia, admitted yesterday for symptomatic anemia and hypoglycemia. Nephrology following for advanced CKD care. The patient received 1 unit PRBC yesterday, found to have influenza positive, has not been eating well, still feels lethargic. PHYSICAL EXAMINATION: VITAL SIGNS: This morning blood pressure 98/51, heart rate 98, respirations 18, O2 sat 98.6. GENERAL: No distress, conversing coherently in full sentences. HEENT: Moist mucous membranes. Nonicteric. RESPIRATORY: Lungs clear to auscultation bilaterally. No rales, no rhonchi, no wheezes. HEART: Loud systolic murmur present. Regular rate and rhythm. No gallops. GASTROINTESTINAL: Abdomen soft, nontender, palpable pulsating mass present. GENITOURINARY: Aquino in place. EXTREMITIES: 2+ bilateral lower leg edema. SKIN: Warm. No cyanosis. PSYCHIATRIC: Normal mood. Normal affect. LABORATORY DATA: Today, CBC: WBC 10.8, hemoglobin 6.8, hematocrit 22.2, platelets 181. Chemistry panel: Sodium 138, potassium 4.0, chloride 104, bicarb 14, BUN 104, creatinine 5.3, glucose 178, calcium 6.3, phosphorus 6.4, magnesium 1.4, albumin 2.9. ABG last night, pH 7.38, PCO2 of 25, bicarb 14.8. CAT scan of abdomen, pelvis, and chest done yesterday revealing distended bladder and hydronephrosis of transplanted kidney. ASSESSMENT AND PLAN: 1. Acute kidney injury likely prerenal etiology secondary to chronic blood loss as well as mild hypotension; may also have a component of obstructive uropathy with hydronephrosis of transplanted kidney seen and distended bladder; Aquino placed last night and the patient has been on IV fluids since yesterday with mild improvement in renal function. Continue isotonic IV fluids. We will change to bicarb drip with D5W with 150 mEq of sodium bicarb running at 100 mL per hour. We will obtain ultrasound of transplanted kidney to look for improvement in hydronephrosis. 2. Status post renal allograft - the patient with advanced acute kidney injury of allograft, currently at late stage IV/V disease which is the natural course of renal transplant after 10 years; the patient has been on stable transplant immunosuppression regimen of tacrolimus 10 mg in a.m. and 1 mg in p.m., CellCept 500 mg b.i.d., and prednisone 5 mg daily. We will continue the same awaiting tacrolimus level. 3. Anemia, severe, symptomatic. Anemia is secondary to iron deficiency likely from GI losses as well as advanced chronic kidney disease. The patient has been on Aranesp 100 mcg monthly. We will give extra dose today. The patient getting PRBC transfusion second unit today. We will go for EGD tomorrow, should ideally have a colonoscopy; however, has a relative contraindication due to presence of large abdominal aortic aneurysm. 4. Metabolic acidosis. High anion gap acidosis likely due to advanced chronic kidney disease with lactic acidosis ruled out; the patient is having adequate respiratory compensation; we will start on bicarb drip as noted above before changing over to p.o. sodium bicarb tablets. 5. Chronic kidney disease mineral bone disease. The patient with hypocalcemia and hyperphosphatemia, has known tertiary hyperparathyroidism and has been Sensipar just currently on hold due to hypocalcemia. 6. This patient is mildly hypotensive. We are giving 1 g of IV calcium gluconate (should generally be avoided in the setting of hyperphosphatemia due to diuretic concern for calcium and phosphate complexing and deposition in soft tissue). We will also start on calcium carbonate 1200 mg b.i.d. and have increased home dose of calcitriol to 0.25 mcg daily. 7. Hypotension. The patient with influenza positive. Blood culture showing gram-negative tenisha in 1 bottle. Currently, is only on Tamiflu. We will speak to ID about giving gram-negative coverage, should be dosed for creatinine clearance less than 20 mL per minute. Dandy Wheeler MD
[2017-02-28] MEDS ORDERED: Insulin Lispro (humaLOG) LOW Coverage SC SCH (22:00)
[2017-03-01] MEDS ORDERED: Oseltamivir 6 MG/ML PO SCH ×2 (10:00)
[2017-03-01 19:20] LABS: GLYCOMARK(R) 6.3 mcg/mL (7.3-36.6)
--- NOTE | 2017-03-04 00:29 | DS ---
The patient was transferred and discharged to [facility] on 03/01/2017. The patient was seen and evaluated on 02/28/[address] Uzma Mcmullen, her recommendation was that the patient has an aortic dissection, abdominal aortic aneurysm symptomatic. The patient's case was discussed by Dr. Uzma Mcmullen with Dr. Rashaun Wilkinson at [facility], [place], who accepted the patient for transfer to [facility]. The patient's history was reviewed by Dr. Uzma Mcmullen. Extensively, the patient agreed for the transfer to [facility] and all details, all paperwork, all prerequisite for the transfers was completed by Dr. Mcmullen and medical record coder. FINAL IMPRESSION, PLAN AND DISCHARGE DIAGNOSES: 1. Aortic dissection with abdominal aortic aneurysm symptomatic. 2. Severe symptomatic anemia. 3. Bilateral lower extremity venous stasis. 4. Severe symptomatic anemia. 5. Acute kidney injury with underlying chronic kidney disease stage IV. 6. Status post cadaveric kidney transplant. 7. History of type 1 aortic dissection in 2002, treated with aortic valve graft. 8. Influenza. 9. History of polycystic kidney disease. 10. Abdominal aortic aneurysm with aortic dissection. 11. Uncontrolled insulin-requiring diabetes mellitus with hypoglycemia. 12. Sepsis secondary to gram-negative bacilli bacteremia, source undetermined. 13. Systemic viral illness with influenza. 14. Febrile illness and high-grade fever. 15. Leukocytosis with granulocytosis. 16. Refractory microcytic anemia. 17. Uncontrolled insulin-requiring diabetes mellitus with hypo and hyperglycemia. 18. Chronic kidney disease stage IV. 19. Hypocalcemia and hyperphosphatemia and hypomagnesemia. 20. Transaminitis. 21. Hyperprolactinemia with procalcitonin level of greater than 200. 22. Well-controlled insulin-requiring diabetes mellitus with hemoglobin A1c of 6.5. 23. Iron-deficiency anemia with decreased iron saturation. 24. Secondary hyperparathyroidism with elevated PTH of 796. 25. Escherichia coli bacteremia and sepsis. 26. Status post aortic valve replacement. 27. Descending thoracic aortic aneurysm. 28. Cardiomegaly. 29. Right upper lobe 1.7 cm nonsolid and homogeneous nodule. 30. Bibasilar atelectasis. 31. Aortic valve replacement with median sternotomy. 32. A 3.9 cm ascending thoracic aortic aneurysm at the distal ascending segment with 3.6 cm thoracic aorta. 33. Hepatic cyst with polycystic kidney disease. 34. Distended gallbladder. 35. Polycystic kidney disease. 36. 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 37. Large infrarenal abdominal aortic aneurysm measuring 8.1 x 7.8 x 12.1 cm with partially calcified mural plaque with possible chronic dissection. 38. Colonic diverticulosis. 39. Anasarca. 40. Cachexia. 41. Deconditioning. 42. Gait dysfunction. 43. Large chronic thoracoabdominal dissection with aneurysmal dilatation. 44. Status post renal allograft. 45. Severe symptomatic anemia. 46. Metabolic acidosis. 47. Status post hypotension. Plan at this time, the patient is being transferred to [facility] under Dr. Rashaun Wilkinson Service. The patient will continue on the medications as per the AUG. DISCHARGE MEDICATIONS: Bactrim DS 1 tablet Saturday, Saturday, Saturday, prednisone 5 mg daily, CellCept 500 mg twice a day, Prograf 1 mg in p.m. and 2 mg a.m., Norvasc 10 mg twice a day has been held, Pravachol 40 mg daily, Lopressor 100 mg twice a day, hydralazine 25 mg b.i.d. The patient is also being discharged on IV antibiotic as per infectious disease. The patient is on meropenem 500 mg IV q. 12. The patient has been on Tamiflu 30 mg daily as per infectious disease. The patient is on Zofran 4 IV q. 6 hours p.r.n., Caltrate 1200 mg twice a day, Rocaltrol 0.25 mcg daily, Tamiflu was changed from 75 b.i.d. to 30 mg daily, the patient has been given cefepime 2 g IV q. 24 hours. The patient is on D5W with bicarb 100 mL an hour. The patient was given magnesium supplementation. The patient was given vancomycin one dose. The patient's Lopressor was decreased to 25 mg twice a day. The patient is on insulin sliding scale, Zetia 10 mg, Sensipar 30 mg, Prograf 2 mg a.m., 1 mg p.m., prednisone 5 mg daily, CellCept 500 mg twice a day, Protonix 40 mg twice a day, Bactrim DS 1 tablet q. 48 hours. Time spent in the entire discharge process more than 40- minutes. The patient was transferred to [facility] under Dr. Rashaun Wilkinson service, arranged by Dr. Uzma Mcmullen. All medical records, all series of the images were sent with the patient. Dictated and electronically signed, not read. Signing off, Mart Knox MD
== END 2017-03-01 02:18 | disposition short-term general hospital (02) | DRG 871 ==
LOC: ED 06:10 → ERH 08:30 → 2RSO 17:04
PROVIDERS: ADMIT Internal Medicine; ATTEND Internal Medicine
PROC: 30233N1 Transfusion of Nonautologous Red Blood Cells into Peripheral Vein, Percutaneous Approach (ICD-10-PCS; principal; 2017-02-27)
DX: A41.51 Sepsis due to Escherichia coli [E. coli] (principal); I71.00 Dissection of unspecified site of aorta; R64 Cachexia; E46 Unspecified protein-calorie malnutrition; E87.2 Acidosis; N17.9 Acute kidney failure, unspecified; N18.4 Chronic kidney disease, stage 4 (severe); Q61.2 Polycystic kidney, adult type; J98.11 Atelectasis; Z94.0 Kidney transplant status; Z68.1 Body mass index [BMI] 19.9 or less, adult; N25.81 Secondary hyperparathyroidism of renal origin; E11.649 Type 2 diabetes mellitus with hypoglycemia without coma; D50.9 Iron deficiency anemia, unspecified; Z79.4 Long term (current) use of insulin; K57.30 Diverticulosis of large intestine without perforation or abscess without bleeding; I71.4 Abdominal aortic aneurysm, without rupture; I87.8 Other specified disorders of veins; I12.9 Hypertensive chronic kidney disease with stage 1 through stage 4 chronic kidney disease, or unspecified chronic kidney disease; E11.22 Type 2 diabetes mellitus with diabetic chronic kidney disease; J10.1 Influenza due to other identified influenza virus with other respiratory manifestations; I71.2 Thoracic aortic aneurysm, without rupture; E78.5 Hyperlipidemia, unspecified; E83.51 Hypocalcemia; E11.65 Type 2 diabetes mellitus with hyperglycemia; E83.39 Other disorders of phosphorus metabolism; E83.42 Hypomagnesemia; Z87.891 Personal history of nicotine dependence; Z95.3 Presence of xenogenic heart valve

== ENCOUNTER 2017-03-17 10:37 | Emergency (ER) | payer MEDICARE, OTHER ==
[2017-03-17 10:38] VITALS: BMI 26.4
[2017-03-17 10:44] VITALS: TEMP 98.1; O2SAT 100
--- NOTE | 2017-03-17 10:55 | ED PDOC ---
Arrival/HPI - General Chief Complaint: Altered Mental Status Time Seen by Provider: 03/17/17 10:41 Historian: Patient, EMS - History of Present Illness Narrative History of Present Illness (Text): 03/17/17 10:50 A 66 year old male, whose past medical history includes anemia, hypoglycemia, renal transplant, abdominal aortic aneurysm, diabetes mellitus, and hypertensive chronic kidney disease, presents to the emergency department via EMS after his partner called them because he found the patient confused and his blood sugar was at 51. The patient took oral tube of liquid glucose and no longer felt confused. The patient denies any fever, trauma, abdominal pain, or any other complaints at this time. Time/Duration: Prior to Arrival Symptom Onset: Sudden Symptom Course: Improving Activities at Onset: Rest, Light Context: Home Associated Symptoms (Text): 03/17/17 11:52 Patient with an altered mental status and confused this morning. Found in bed by his partner that way. He was diaphoretic. He was given a tube of oral glucose prior to arrival and has improved somewhat. He denies chest pain palpitations or dyspnea. He has an insulin pump. He reports that last night before he went to bed he was eating some cinnamon sugar alaina crackers. No abdominal pain nausea or vomiting. Past Medical History - Provider Review Nursing Documentation Reviewed: Yes - Infectious Disease Hx of Infectious Diseases: None - Cardiac Hx Cardiac Disorders: Yes Hx Hypertension: Yes - Pulmonary Hx Respiratory Disorders: No - Neurological Hx Neurological Disorder: No - HEENT Hx HEENT Disorder: Yes (wears glasses) - Renal Hx Renal Disorder: Yes Hx Dialysis: Yes (left arm fistula) Date of Last Dialysis Treatment: 10/08/06 Other/Comment: Kidney transplant - Endocrine/Metabolic Hx Endocrine Disorders: Yes Hx Diabetes Mellitus Type 2: Yes Other/Comment: PT has insulin pump left abdomen - Hematological/Oncological Hx Blood Disorders: Yes Hx Anemia: Yes - Integumentary Hx Dermatological Disorder: No - Musculoskeletal/Rheumatological Hx Musculoskeletal Disorders: No - Gastrointestinal Hx Gastrointestinal Disorders: No - Genitourinary/Gynecological Hx Genitourinary Disorders: Yes Other/Comment: bilateral inguinal hernias (repaired) - Psychiatric Hx Psychophysiologic Disorder: No Hx Substance Use: No - Surgical History Hx Kidney Transplant: Yes Other/Comment: Aortic valve replacement - Anesthesia Hx Anesthesia: Yes Hx Anesthesia Reactions: No Hx Malignant Hyperthermia: No Family/Social History - Physician Review Nursing Documentation Reviewed: Yes Family/Social History: Unknown Family HX Smoking Status: Former Smoker Hx Alcohol Use: No Hx Substance Use: No Allergies/Home Meds Allergies/Adverse Reactions: Allergies No Known Allergies Allergy (Verified 03/17/17 10:44) Home Medications: Home Meds Medication Instructions Recorded Confirmed Cinacalcet [Sensipar] 30 mg PO DAILY 11/20/16 03/17/17 Clonidine HCl [Catapres] 0.3 mg PO BID 11/20/16 03/17/17 Epoetin Wilmar [Procrit] 40,000 units SQ Q30D 11/20/16 03/17/17 Ezetimibe [Zetia] 10 mg PO DAILY 11/20/16 03/17/17 Glimepiride [amaRYL] 2 mg PO DAILY 11/20/16 03/17/17 Hydralazine HCl 25 mg PO BID 11/20/16 03/17/17 Metoprolol Tartrate [Lopressor] 100 mg PO BID 11/20/16 03/17/17 Mycophenolate [Cellcept Cap] 500 mg PO BID 11/20/16 03/17/17 Pravastatin Sodium [Pravachol] 40 mg PO DAILY 11/20/16 03/17/17 Prednisone [Nga] 5 mg PO DAILY 11/20/16 03/17/17 Sulfamethoxazole/Trimethoprim 1 tab PO MWF 11/20/16 03/17/17 [Bactrim DS Tab] Tacrolimus [Prograf Cap] 1 mg PO QPM 11/20/16 03/17/17 Tacrolimus [Prograf Cap] 2 mg PO QAM 11/20/16 03/17/17 amLODIPine [Norvasc] 10 mg PO BID 11/20/16 03/17/17 humALOG 20 units SQ DAILY 11/20/16 03/17/17 Ferrous Gluconate [Fergon] 324 mg PO BID 01/20/17 03/17/17 Review of Systems - Physician Review All systems were reviewed & negative as marked: Yes - Review of Systems Constitutional: Other (low blood sugar). absent: Fatigue, Fevers Respiratory: absent: SOB, Cough, Wheezing Cardiovascular: absent: Chest Pain, Palpitations, Syncope Gastrointestinal: absent: Abdominal Pain, Nausea, Vomiting Neurological: absent: Headache, Dizziness, Focal Weakness Physical Exam Vital Signs Reviewed: Yes Vital Signs Temp Pulse Resp BP Pulse Ox 03/17/17 10:59 98.1 F 65 16 110/65 100 03/17/17 10:39 98.1 F 61 20 100 Temperature: Afebrile Blood Pressure: Normal Pulse: Regular Respiratory Rate: Normal Appearance: Positive for: Non-Toxic, Ill-Appearing (chronically ill appearing), Cachectic Pain Distress: None Mental Status: Positive for: Alert and Oriented X 3 - Systems Exam Head: Present: Atraumatic, Normocephalic Pupils: Present: PERRL Extroacular Muscles: Present: EOMI Conjunctiva: Present: Normal Mouth: Present: Moist Mucous Membranes Pharnyx: No: ERYTHEMA, EXUDATE, TONSILS ENLARGED Neck: Present: Normal Range of Motion Respiratory/Chest: Present: Clear to Auscultation, Good Air Exchange. No: Respiratory Distress, Accessory Muscle Use Cardiovascular: Present: Murmurs (3/6 systolic ejection murmur) Abdomen: Present: Normal Bowel Sounds. No: Tenderness, Distention, Peritoneal Signs Upper Extremity: Present: Normal Inspection. No: Cyanosis, Edema Lower Extremity: Present: Edema (1+ bilaterally ) Neurological: Present: GCS=15, CN II-XII Intact, Speech Normal, Motor Func Grossly Intact Skin: Present: Warm, Dry, Normal Color. No: Rashes Psychiatric: Present: Alert, Oriented x 3, Normal Insight, Normal Concentration Medical Decision Making ED Course and Treatment: 03/17/17 10:50 Impression: A 66 year old male with low blood sugar Differential Diagnosis included but are not limited to: Plan: -- EKG -- Labs -- Diet as tolerated -- Reassess and disposition Progress Notes: 03/17/17 11:54 EKG shows normal sinus rhythm rate approximately 65 with poor R waves and Q waves inferiorly and no acute ST or T-wave changes 03/17/17 11:55 Son is here and reports that the patient is in his normal mental state. He is awake and alert. He ate a turkey sandwich. His repeat blood sugar is 91. He will be discharged home accompanied by son to follow up with his PMD. He already has an appointment scheduled in 2 days. - Lab Interpretations Lab Results: 03/17/17 10:55 03/17/17 10:55 Lab Results 03/17/17 10:55: Sodium 139, Potassium 5.1 H, Chloride 105, Carbon Dioxide 23, Anion Gap 16, BUN 44 H, Creatinine 3.0 H, Est GFR ( Amer) 26, Est GFR ( Non-Af Amer) 21, Random Glucose 47 L* D, Calcium 7.6 L, Total Bilirubin 0.4, AST 50, ALT 55, Alkaline Phosphatase 106, Lactate Dehydrogenase 1212 H, Total Creatine Kinase 60, Troponin I 0.01 D, Total Protein 6.0, Albumin 3.0, Globulin 2.9, Albumin/Globulin Ratio 1.0 L 03/17/17 10:55: WBC 7.0 D, RBC 3.30 L, Hgb 8.1 L, Hct 26.5 L, MCV 80.3 D, MCH 24.5 L, MCHC 30.6 L, RDW 16.4 H, Plt Count 271, MPV 9.7, Gran % 77.2 H, Lymph % (Auto) 11.0 L, [place] % (Auto) 11.2 H, Eos % (Auto) 0.3 L, Baso % (Auto) 0.3, Gran # 5.43, Lymph # 0.8 L, [place] # 0.8 H, Eos # 0.0, Baso # 0.02 - Scribe Statement The provider has reviewed the documentation as recorded by the Lisa Tavera Provider Scribe Attestation: All medical record entries made by the Scribe were at my direction and personally dictated by me. I have reviewed the chart and agree that the record accurately reflects my personal performance of the history, physical exam, medical decision making, and the department course for this patient. I have also personally directed, reviewed, and agree with the discharge instructions and disposition. Disposition/Present on Arrival - Present on Arrival Any Indicators Present on Arrival: No History of DVT/PE: No History of Uncontrolled Diabetes: Yes Urinary Catheter: Yes History of Decub. Ulcer: No History Surgical Site Infection Following: None - Disposition Have Diagnosis and Disposition been Completed?: Yes Diagnosis: Hypoglycemia, Anemia Disposition: HOME/ ROUTINE Disposition Time: 11:56 Patient Plan: Discharge Condition: IMPROVED Discharge Instructions (ExitCare): Diabetic Hypoglycemia (ED) Additional Instructions: Keep appointment already scheduled with PMD in 2 days. Follow up in the ER as needed. Take your meals as prescribed. Forms: [employer] (Armenian)
[2017-03-17 11:01] VITALS: BP 110/65; PULSE 65; RESP 16
[2017-03-17 11:05] LABS: BASO # 0.02 K/mm3 (0.0-2.0); BASO % 0.3 % (0.0-3.0); EOS % 0.3 % (1.5-5.0); GRAN # 5.43 (1.4-6.5); GRAN % 77.2 % (50.0-68.0); HEMATOCRIT 26.5 % (42.0-52.0); LYMPH # 0.8 (1.2-3.4); MEAN CELL VOLUME 80.3 fl (80.0-105.0); MEAN CORPUSCULAR HEMOGLOBIN 24.5 pg (25.0-35.0); MEAN CORPUSCULAR HGB CONC 30.6 g/dl (31.0-37.0); MEAN PLATELET VOLUME 9.7 fl (7.0-11.0); MONO # 0.8 (0.1-0.6); MONO % 11.2 % (1.0-6.0); RED CELL DISTRIBUTION WIDTH 16.4 % (11.5-14.5)
[2017-03-17 11:14] LABS: BILIRUBIN,TOTAL 0.4 mg/dL (0.2-1.3); CALCIUM 7.6 mg/dL (8.4-10.5); POTASSIUM 5.1 mmol/L (3.6-5.0)
[2017-03-17 11:32] LABS: TROPONIN I 0.01 ng/mL
--- NOTE | 2017-03-17 19:23 | CARD ---
APPROVED REPORT EKG Measurement Heart [id number] <Conclusion> Sinus rhythm with fusion complexes Possible Left atrial enlargement Rightward axis Septal infarct, age undetermined Inferior infarct, age undetermined Abnormal ECG
== END 2017-03-17 12:05 | disposition home or self-care (01) ==
LOC: ED 10:37
DX: E11.649 Type 2 diabetes mellitus with hypoglycemia without coma (principal); D64.9 Anemia, unspecified; I10 Essential (primary) hypertension; Z87.891 Personal history of nicotine dependence

== ENCOUNTER 2017-08-02 11:32 | Inpatient (IN) | payer MEDICARE ==
[2017-08-02 11:39] VITALS: BMI 19.2
--- NOTE | 2017-08-02 12:10 | ED PDOC ---
Arrival/HPI - General Chief Complaint: Abnormal Labs Time Seen by Provider: 08/02/17 11:53 Historian: Patient - History of Present Illness Narrative History of Present Illness (Text): 08/02/17 12:06 66 year old male, with past medical history of chronic iron deficiency anemia, hypoglycemia, renal transplant, abdominal aortic aneurysm, aortic valve replacement, diabetes and hypertensive chronic kidney disease, presents to the Emergency department complaining of low hemoglobin since yesterday. Patient reports blood work done s/p transplant check up yesterday, when he was reported to have low hemoglobin count and referred to the Emergency department for blood transfusion. Patient informs having transfusion in the past, last one being in February 2017. Patient inforsm fatugye and mild shortness of breath on exertion. Patient denies any blood thinners, dialysis, chest pain, fever, chills , nausea, vomiting, diarrhea, abdominal pain or any other complaints. Time/Duration: 24 hours Symptom Onset: Gradual Symptom Course: Unchanged Activities at Onset: Light Context: Home Past Medical History - Provider Review Nursing Documentation Reviewed: Yes - Infectious Disease Hx of Infectious Diseases: None - Cardiac Hx Cardiac Disorders: Yes Hx Hypertension: Yes - Pulmonary Hx Respiratory Disorders: No - Neurological Hx Neurological Disorder: No - HEENT Hx HEENT Disorder: Yes (wears glasses) - Renal Hx Renal Disorder: Yes Hx Dialysis: Yes (left arm fistula) Date of Last Dialysis Treatment: 10/08/06 Other/Comment: Kidney transplant - Endocrine/Metabolic Hx Endocrine Disorders: Yes Hx Diabetes Mellitus Type 1: Yes Hx Diabetes Mellitus Type 2: Yes Other/Comment: PT has insulin pump left abdomen - Hematological/Oncological Hx Blood Disorders: Yes Hx Anemia: Yes Hx Blood Transfusions: Yes - Integumentary Hx Dermatological Disorder: No - Musculoskeletal/Rheumatological Hx Musculoskeletal Disorders: No - Gastrointestinal Other/Comment: AAA - Genitourinary/Gynecological Hx Genitourinary Disorders: Yes Other/Comment: bilateral inguinal hernias (repaired) - Psychiatric Hx Psychophysiologic Disorder: No Hx Substance Use: No - Surgical History Hx Kidney Transplant: Yes Other/Comment: Aortic valve replacement - Anesthesia Hx Anesthesia: Yes Hx Anesthesia Reactions: No Hx Malignant Hyperthermia: No Family/Social History - Physician Review Nursing Documentation Reviewed: Yes Family/Social History: No Known Family HX Smoking Status: Former Smoker Hx Alcohol Use: No Hx Substance Use: No Allergies/Home Meds Allergies/Adverse Reactions: Allergies No Known Allergies Allergy (Verified 03/17/17 10:44) Home Medications: Home Meds Medication Instructions Recorded Confirmed Cinacalcet [Sensipar] 30 mg PO DAILY 11/20/16 08/02/17 Clonidine HCl [Catapres] 0.3 mg PO BID 11/20/16 08/02/17 Ezetimibe [Zetia] 10 mg PO DAILY 11/20/16 08/02/17 Glimepiride [amaRYL] 2 mg PO DAILY 11/20/16 08/02/17 Hydralazine HCl 25 mg PO BID 11/20/16 08/02/17 Metoprolol Tartrate [Lopressor] 100 mg PO BID 11/20/16 08/02/17 Mycophenolate [Cellcept Cap] 500 mg PO BID 11/20/16 08/02/17 Pravastatin Sodium [Pravachol] 40 mg PO DAILY 11/20/16 08/02/17 Prednisone [Nga] 5 mg PO DAILY 11/20/16 08/02/17 Sulfamethoxazole/Trimethoprim 1 tab PO MWF 11/20/16 08/02/17 [Bactrim DS Tab] Tacrolimus [Prograf Cap] 1 mg PO QPM 11/20/16 08/02/17 Tacrolimus [Prograf Cap] 2 mg PO QAM 11/20/16 08/02/17 amLODIPine [Norvasc] 10 mg PO BID 11/20/16 08/02/17 humALOG 20 units SQ DAILY 11/20/16 08/02/17 Ferrous Gluconate [Fergon] 324 mg PO BID 01/20/17 08/02/17 Review of Systems - Physician Review All systems were reviewed & negative as marked: Yes - Review of Systems Constitutional: Fatigue. absent: Fevers Eyes: Normal ENT: Normal Respiratory: SOB Cardiovascular: Normal. absent: Chest Pain Gastrointestinal: Normal. absent: Abdominal Pain, Diarrhea, Nausea, Vomiting Genitourinary Male: Normal Musculoskeletal: Normal Skin: Normal Neurological: Normal Endocrine: Normal Hemo/Lymphatic: Normal Psychiatric: Normal Physical Exam Vital Signs Reviewed: Yes Vital Signs Temp Pulse Resp BP Pulse Ox 08/02/17 15:56 97.8 F 68 16 151/87 H 08/02/17 15:11 97.6 F 68 22 141/80 08/02/17 14:51 97.7 F 73 18 134/76 08/02/17 14:46 97.7 F 73 16 137/77 98 08/02/17 13:40 68 18 137/71 100 08/02/17 11:42 98.0 F 72 18 139/75 100 Temperature: Afebrile Blood Pressure: Normal Pulse: Regular Respiratory Rate: Normal Appearance: Positive for: Non-Toxic, Comfortable, Other (frail) Pain Distress: None Mental Status: Positive for: Alert and Oriented X 3 - Systems Exam Head: Present: Atraumatic, Normocephalic Pupils: Present: PERRL Extroacular Muscles: Present: EOMI Conjunctiva: Present: Normal Mouth: Present: Moist Mucous Membranes Neck: Present: Normal Range of Motion. No: JVD Respiratory/Chest: Present: Clear to Auscultation, Good Air Exchange. No: Respiratory Distress, Accessory Muscle Use Cardiovascular: Present: Regular Rate and Rhythm (with loud systolic murmur), Normal S1, S2. No: Murmurs Abdomen: Present: Normal Bowel Sounds, Mass/Organomegaly (soft palpable mass on left lower quadrant). No: Tenderness, Distention, Peritoneal Signs Genitourinary Male: Present: Other (multiple GI evaluation in the past, all inconclusive.) Back: Present: Normal Inspection Upper Extremity: Present: Normal Inspection. No: Cyanosis, Edema Lower Extremity: Present: Normal Inspection. No: Edema Neurological: Present: GCS=15, CN II-XII Intact, Speech Normal Skin: Present: Warm, Dry, Normal Color. No: Rashes Psychiatric: Present: Alert, Oriented x 3, Normal Insight, Normal Concentration Medical Decision Making ED Course and Treatment: 08/02/17 12:12 Impression: 66 year old male presents to the Emergency department for low hemoglobin. Plan: -- EKG -- Labs -- Reassess and disposition Prior Visits: Notes and results from previous visits were reviewed. On 03/27/17 patient presented to the Emergency department for hypoglycemia. Patient was discharged home after treatment. Progress Notes: 08/02/17 12:13 - Lab Interpretations Lab Results: 08/02/17 12:10 08/02/17 12:10 Lab Results 08/02/17 12:50: Blood Type O POSITIVE, Antibody Screen Negative, Crossmatch See Detail, BBK History Checked Patient has bt 08/02/17 12:10: Sodium 144, Potassium 4.7, Chloride 110 H, Carbon Dioxide 19 L, Anion Gap 19, BUN 41 H, Creatinine 3.0 H, Est GFR ( Amer) 26, Est GFR ( Non-Af Amer) 21, Random Glucose 103, Calcium 8.3 L, Total Bilirubin 0.2, AST 31 , ALT 21, Alkaline Phosphatase 71, Total Protein 6.6, Albumin 4.0, Globulin 2.7 , Albumin/Globulin Ratio 1.5 08/02/17 12:10: PT 11.1, INR 0.97 08/02/17 12:10: WBC 3.7 L D, RBC 2.40 L, Hgb 5.5 L* D, Hct 19.4 L*, MCV 80.8, MCH 22.9 L, MCHC 28.4 L, RDW 22.3 H, Plt Count 222, Gran % 64.3, Lymph % (Auto) 22.1, [place] % (Auto) 10.9 H, Eos % (Auto) 2.2, Baso % (Auto) 0.5, Gran # 2.35, Lymph # (Auto) 0.8 L, [place] # (Auto) 0.4, Eos # (Auto) 0.1, Baso # (Auto) 0.02 - Medication Orders Current Medication Orders: Acetaminophen (Tylenol 325mg Tab) 650 mg PO Q6 PRN PRN Reason: Fever >100.4 F Amlodipine Besylate (Norvasc) 5 mg PO BID [facility] Atorvastatin Calcium (Lipitor) 20 mg PO DIN [facility] Cinacalcet (Sensipar) 30 mg PO DAILY [facility] Clonidine HCl (Catapres) 0.3 mg PO BID [facility] Ezetimibe (Zetia) 10 mg PO DAILY [facility] Ferrous Gluconate (Fergon) 324 mg PO BID [facility] Insulin Human Regular (Humulin R Low) 0 units SC ACHS [facility] PRN Reason: Protocol Metoprolol Tartrate (Lopressor) 100 mg PO BID [place] Mycophenolate Mofetil (Cellcept Cap) 500 mg PO BID [place] Pantoprazole Sodium (Protonix Ec Tab) 40 mg PO DAILY [facility] Tacrolimus (Prograf Cap) 1 mg PO QPM [place] Tacrolimus (Prograf Cap) 2 mg PO QAM [place] Discontinued Medications Amlodipine Besylate (Norvasc) 5 mg PO BID [facility] Non-Formulary Medication (Metoprolol Tartrate [Lopressor]) 100 mg PO BID [facility] Non-Formulary Medication (Pravastatin Sodium [Pravachol]) 40 mg PO DAILY [facility] - Scribe Statement The provider has reviewed the documentation as recorded by the Lisa Estrella. All medical record entries made by the Hankibe were at my direction and personally dictated by me. I have reviewed the chart and agree that the record accurately reflects my personal performance of the history, physical exam, medical decision making, and the department course for this patient. I have also personally directed, reviewed, and agree with the discharge instructions and disposition. Disposition/Present on Arrival - Present on Arrival Any Indicators Present on Arrival: No History of DVT/PE: No History of Uncontrolled Diabetes: Yes Urinary Catheter: Yes History of Decub. Ulcer: No History Surgical Site Infection Following: None - Disposition Have Diagnosis and Disposition been Completed?: Yes Diagnosis: Symptomatic anemia, Renal transplant, status post Disposition: HOSPITALIZED Disposition Time: 14:10 Patient Plan: Observation Patient Problems: Current Active Problems Problem Status Onset Renal transplant, status post Acute Symptomatic anemia Acute Condition: STABLE
[2017-08-02 12:31] LABS: BASO # 0.02 K/mm3 (0.0-2.0); BASO % 0.5 % (0.0-3.0); EOS # 0.1 (0.0-0.7); EOS % 2.2 % (1.5-5.0); GRAN # 2.35 (1.4-6.5); GRAN % 64.3 % (50.0-68.0); LYMPH # 0.8 (1.2-3.4); LYMPH % 22.1 % (22.0-35.0); MEAN CELL VOLUME 80.8 fl (80.0-105.0); MEAN CORPUSCULAR HEMOGLOBIN 22.9 pg (25.0-35.0); MEAN CORPUSCULAR HGB CONC 28.4 g/dl (31.0-37.0); MONO # 0.4 (0.1-0.6); MONO % 10.9 % (1.0-6.0); PLATELET COUNT 222 10^3/uL (120.0-450.0); RED CELL DISTRIBUTION WIDTH 22.3 % (11.5-14.5); WHITE BLOOD COUNT 3.7 10^3/ul (4.5-11.0)
[2017-08-02 12:35] LABS: ALB/GLOB RATIO 1.5 (1.1-1.8); CALCIUM 8.3 mg/dL (8.4-10.5); HEMOGLOBIN 5.5 g/dL (14.0-18.0)
[2017-08-02 12:38] LABS: INR 0.97 (0.93-1.08); PROTHROMBIN TIME 11.1 SECONDS (9.4-12.5)
--- NOTE | 2017-08-02 14:35 | CP.PCM.HP ---
<Mook Mckeon - Last Filed: 08/02/17 14:52> History of Present Illness - History of Present Illness History of Present Illness: Medicine H&P. Dr. Knox 66yo M with PMHx of Iron Deficiency Anemia, CKD s/p Renal Transplant in 2006, Abdominal Aortic Aneurysm, Aortic Valve Replacement, DM, HTN here for evaluation of anemia. Patient states that he was seen at a follow up renal transplant visit and obtained routine blood-work. He was asked to be evaluated in the ED when results returned and he was found to be anemic. Patient reports that he has been feeling fatigued for the past year and a half and he becomes short of breath with exertion. He denies any sings of bleeding, no hemetemesis, no melena, no hematochezia. He reports he has been evaluated by GI, in February 2017 for similar complaints, however, colonoscopy was deferred until he has AAA repair by Dr. Dewitt. He states that AAA repair is scheduled for August 28, 2017 at [facility]. He denies any CP or resting SOB. No Cough. No N/V /D. No Headaches. No F/C. Vascular Surgeon: Dr. Dewitt: [facility] Nephrology: Dr. Wheeler/ Dr. Unger Renal Transplant: Dr. Musa, [facility] PMHx: Iron Deficiency Anemia, Hx of Polycystic kidney disease, AAA, DM, HTN, ESRD PSHx: Renal Transplant 2006, Bilateral inguinal hernia repair, Left forearm AVF , Aortic Valve replacement Family Hx: denies Social Hx: Lives with family; Former light smoker; Denies ETOH, Denies illcit drugs NKDA Present on Admission - Present on Admission Any Indicators Present on Admission: No Review of Systems - Review of Systems All systems: reviewed and no additional remarkable complaints except - Constitutional Constitutional: Fatigue. absent: Chills, Fever - Cardiovascular Cardiovascular: absent: Chest Pain, Dyspnea - Respiratory Respiratory: Dyspnea on Exertion. absent: Dyspnea, Chest Congestion - Gastrointestinal Gastrointestinal: absent: Abdominal Pain, Hematemesis, Hematochezia, Melena, Nausea, Vomiting - Genitourinary Genitourinary: Hx /Renal Surgery. absent: Dysuria, Hematuria - Neurological Neurological: absent: Headaches Past Patient History - Infectious Disease Hx of Infectious Diseases: None - Past Medical History & Family History Past Medical History?: Yes - Past Social History Smoking Status: Former Smoker - CARDIAC Hx Cardiac Disorders: Yes Hx Hypertension: Yes - PULMONARY Hx Respiratory Disorders: No - NEUROLOGICAL Hx Neurological Disorder: No - HEENT Hx HEENT Problems: Yes (wears glasses) - RENAL Hx Chronic Kidney Disease: Yes Hx Dialysis: Yes (left arm fistula) Date of Last Dialysis Treatment: 10/08/06 Other/Comment: Kidney transplant - ENDOCRINE/METABOLIC Hx Endocrine Disorders: Yes Hx Diabetes Mellitus Type 1: Yes Hx Diabetes Mellitus Type 2: Yes Other/Comment: PT has insulin pump left abdomen - HEMATOLOGICAL/ONCOLOGICAL Hx Blood Disorders: Yes Hx Anemia: Yes Hx Blood Transfusions: Yes - INTEGUMENTARY Hx Dermatological Problems: No - MUSCULOSKELETAL/RHEUMATOLOGICAL Hx Musculoskeletal Disorders: No - GASTROINTESTINAL Other/Comment: AAA - GENITOURINARY/GYNECOLOGICAL Hx Genitourinary Disorders: Yes Other/Comment: bilateral inguinal hernias (repaired) - PSYCHIATRIC Hx Psychophysiologic Disorder: No Hx Substance Use: No - SURGICAL HISTORY Hx Kidney Transplant: Yes Other/Comment: Aortic valve replacement - ANESTHESIA Hx Anesthesia: Yes Hx Anesthesia Reactions: No Hx Malignant Hyperthermia: No Meds Allergies/Adverse Reactions: Allergies Allergy/AdvReac Type Severity Reaction Status Date / Time No Known Allergies Allergy Verified 03/17/17 10:44 Physical Exam - Constitutional Appears: Non-toxic, No Acute Distress, Older Than Stated Age, Chronically Ill - Head Exam Head Exam: ATRAUMATIC, NORMAL INSPECTION, NORMOCEPHALIC - Eye Exam Eye Exam: EOMI, Normal appearance. absent: Scleral icterus - ENT Exam ENT Exam: Mucous Membranes Moist - Respiratory Exam Respiratory Exam: Clear to Auscultation Bilateral, NORMAL BREATHING PATTERN. absent: Accessory Muscle Use, Wheezes - Cardiovascular Exam Cardiovascular Exam: Systolic Murmur. absent: JVD Additional comments: loud systolic murmur heard best at left upper sternum - GI/Abdominal Exam GI & Abdominal Exam: Distended, Guarding (voluntary guarding), Soft. absent: Firm, Rebound, Tenderness Additional comments: midline pulsitile mass palpated - Extremities Exam Extremities exam: Negative for: calf tenderness Additional comments: bilateral pitting pretibial edema - Neurological Exam Neurological exam: Alert, Oriented x3 - Psychiatric Exam Psychiatric exam: Normal Affect, Normal Mood - Skin Skin Exam: Dry, Intact, Pallor (slightly pale), Warm Results - Vital Signs Recent Vital Signs: Last Vital Signs Temp 98.0 F 08/02/17 11:42 Pulse 68 08/02/17 13:40 Resp 18 08/02/17 13:40 BP 137/71 08/02/17 13:40 Pulse Ox 100 08/02/17 13:40 - Labs Result Diagrams: 08/02/17 12:10 08/02/17 12:10 Assessment & Plan - Assessment and Plan (Free Text) Assessment: 66yo M with PMHx of Iron Deficiency Anemia, CKD s/p Renal Transplant in 2006, Abdominal Aortic Aneurysm, Aortic Valve Replacement, DM, HTN here for symptomatic anemia 1. Chronic Anemia - Hb 5.5 - Repeat Iron studies - Transfuse 2U PRBCs - f/u AM labs - Gastroenterology consult, Dr. Cordova - Hematology consult, Dr. Leigh 2. Hx of CKD s/p Renal Transplant - continue home meds - continue immunosuppressants - Nephrology consult, Dr. Wheeler 3. Hx of HTN - continue home meds 4. Hx of AAA, (Type B) - Pending repair by Dr. Dewitt, [facility] - BP control 5. Hx of DM - Accuchecks - Hold oral hypoglycemics - ISS 6. PPx - SCDs - Protonix Further recs as per Dr. Lisette Mckeon PGY1 <Ruddy Knox U - Last Filed: 08/03/17 09:16> Results - Vital Signs Recent Vital Signs: Last Vital Signs Temp 98.6 F 08/03/17 08:15 Pulse 74 08/03/17 08:15 Resp 20 08/03/17 08:15 BP 152/93 H 08/03/17 08:15 Pulse Ox 97 08/03/17 03:13 - Labs Result Diagrams: 08/02/17 12:10 08/02/17 12:10 Labs: Laboratory Results - last 24 hr 08/02/17 08/02/17 08/03/17 20:50 21:29 03:54 POC Glucose (mg/dL) 131 H 61 L Urine Color Yellow Urine Appearance Clear Urine pH 5.5 Ur Specific [place] 1.020 Urine Protein 100 H Urine Glucose (UA) Negative Urine Ketones Negative Urine Blood Trace-intact H Urine Nitrate Negative Urine Bilirubin Negative Urine Urobilinogen 0.2 Ur Leukocyte Esterase Negative Urine RBC 0 - 2 Urine WBC 0 - 2 Ur Epithelial Cells None Urine Bacteria Few 08/03/17 07:17 POC Glucose (mg/dL) 80 Urine Color Urine Appearance Urine pH Ur Specific [place] Urine Protein Urine Glucose (UA) Urine Ketones Urine Blood Urine Nitrate Urine Bilirubin Urine Urobilinogen Ur Leukocyte Esterase Urine RBC Urine WBC Ur Epithelial Cells Urine Bacteria Assessment & Plan - Assessment and Plan (Free Text) Assessment: Patient seen and examined vital signs lab data imaging studies all reports reviewed the history and physical examination above done by the resident reviewed. Assessment and Plan: Severe symptomatic anemia Leukopenia. 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 Severe symptomatic anemia History of multiple packed red blood cell transfusion Descending thoracic aortic aneurysm Left ventricular hypertrophy History of end-stage renal disease hemodialysis dependent secondary to polycystic kidney disease and chronic kidney disease stage IV 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 Hyperuricemia History of median sternotomy Descending thoracic aortic and descending thoracic aortic aneurysm Large chronic thoracoabdominal dissection with aneurysmal dilatation with dissection involving the mesenteric vessel and dilated infrarenal abdominal aortic aneurysm measuring 6.9 cm Right upper lobe 1.7 cm pulmonary nodule Ascending thoracic aortic aneurysm 3.9 cm and distal ascending thoracic aortic aneurysm 3.7 cm 3.5 cm proximal descending aneurysm Thoracic aortic aneurysm 4.2 cm at abdominal hiatus Right hemipelvis cadaveric renal transplant with moderate to severe hydronephrosis Large infrarenal abdominal aortic aneurysm measuring 8.1 x 7.8 x 12.1 cm with partially calcified pleural plaque Anasarca Hypertensive cardiovascular disease Gait dysfunction History of poor compliance History of polycystic kidney disease leading to end-stage renal disease hemodialysis dependent Left upper extremity AV fistula Coronary ischemic changes on the EKG Bovine aortic valve replacement and prosthesis Secondary hyperparathyroidism History of vitamin B12 deficiency History of hyperal hyper and hypoglycemia History of full polycystic kidney disease History of thoracic aortic and abdominal aortic aneurysm History of hydrops gallbladder Plan: Admit Type and crossmatch for PRBC Transfuse PRBC to a goal hemoglobin of about 9-10 g Nephrology consultation Hematology consultation Gastroenterology consultation Medications as per the [employer] C. Orders Out of bed to chair Physical therapy occupational therapy Ambulation therapy DVT prophylaxis GI prophylaxis Transitional care unit evaluation Patient further management dependent upon the patient's hemodynamic and clinical status and as per patient's diagnostic and therapeutic intervention and as per recommendations by gastroenterology and nephrology and hematology Patient explained of all above IN LAYMAN'S language all questions concerns answered. Patient advised close follow-up as an outpatient on a very close and regular basis for lab data monitoring which patient acknowledges understanding. The patient explained all risks, consequences secondary to his multiple comorbidities and medical condition and patient was explained that he has extremely high likelihood of developing more complication and which can seriously jeopardize his health DICTATED AND ELECTRONICALLY SIGNED NOT READ. RUDDY KONX MD
[2017-08-02 16:55] LABS: IRON 28 ug/dL (45-180)
[2017-08-02] MEDS ORDERED: Darbepoetin Alfa 100 mcg/ml Inj SC ONE (17:02)
[2017-08-02 17:04] LABS: % IRON SATURATION 8 % (20-55); TOTAL IRON BINDING CAPACITY 341 ug/dL (261-462)
[2017-08-02] MEDS ORDERED: Pneumococcal 23-Valent Vaccine IM ONE (18:30)
[2017-08-02] MEDS ORDERED: Influenza Vaccine 60 mcg/0.5 mL SYR (4YR UP) IM ONE (18:30)
--- NOTE | 2017-08-02 22:23 | CP.PCM.CON ---
History of Present Illness - History of Present Illness History of Present Illness: 66 yo M w/ pmh of htn, CKD stage IV, s/p renal allograft (2006), post- transplant DM, recurrent anemia, s/p aortic valve replacement (2002) and unrepaired abdominal aortic aneurysm, sent to ED by transplant line erector after being found to have profound anemia (hgb in 5's); nephrology service being consulted for advanced CKD management; Patient has not followed up with us since being admitted in 02/2017 with failure to thrive/lethargy; at that time, patient was transferred to [facility] for repair of large AAA (~8 cm at that time); however, per patient, procedure was never done due to his overall cachectic condition; he now reports having procedure date set for late next month; Patient during this period has remained mostly home bound; ability to ambulate has improved only slightly; he does report increased appetite and having gained a few pounds; Patient denies any overt blood per rectum/in stool, gets some black stool that he attributes to PO iron; colonoscopy was previously deferred due to large AAA; Review of Systems - Constitutional Constitutional: Lethargy. absent: Chills - EENT Eyes: absent: Change in Vision - Cardiovascular Cardiovascular: absent: Chest Pain, Palpitations - Respiratory Respiratory: absent: Cough, Dyspnea - Gastrointestinal Gastrointestinal: absent: Diarrhea, Nausea, Vomiting - Genitourinary Genitourinary: absent: Difficulty Urinating, Dysuria, Urinary Frequency - Musculoskeletal Musculoskeletal: absent: Arthralgias, Back Pain - Neurological Neurological: absent: Dizziness, Headaches - Psychiatric Psychiatric: absent: Abnormal Sleep Pattern Past Patient History - Infectious Disease Hx of Infectious Diseases: None - Past Medical History & Family History Past Medical History?: Yes - Past Social History Smoking Status: Former Smoker - CARDIAC Hx Cardiac Disorders: Yes Hx Hypertension: Yes Hx Peripheral Edema: Yes (ble +2 pitting) Other/Comment: aortic valve replacement 2002, pt has aaa pmd "watching it", is scheduled for a procedure at [facility] withini the next few months to "encase" aneurysm with dr culver, aneurysm "got larger" - PULMONARY Hx Respiratory Disorders: No - NEUROLOGICAL Hx Neurological Disorder: No - HEENT Hx HEENT Problems: Yes (wears glasses) - RENAL Hx Chronic Kidney Disease: Yes Hx Dialysis: Yes (left arm fistula) Other/Comment: Kidney transplant , last dialysis oct 08 2006 - ENDOCRINE/METABOLIC Hx Endocrine Disorders: Yes Hx Diabetes Mellitus Type 1: Yes Hx Diabetes Mellitus Type 2: Yes Other/Comment: PT has insulin pump left abdomen, pt developed diabetes about 1 or 2 years after kidney transplant, transplant was done 2007, from taking prednisone every day, pt has an insulin pump in left abd - HEMATOLOGICAL/ONCOLOGICAL Hx Blood Disorders: Yes (blood transfusions) Hx Anemia: Yes (iron deficiency) - INTEGUMENTARY Hx Dermatological Problems: Yes Other/Comment: multiple skin discolorations ble - MUSCULOSKELETAL/RHEUMATOLOGICAL Hx Falls: No - GASTROINTESTINAL Other/Comment: AAA - GENITOURINARY/GYNECOLOGICAL Hx Genitourinary Disorders: Yes Other/Comment: bilateral inguinal hernias (repaired) - PSYCHIATRIC Hx Substance Use: No - SURGICAL HISTORY Hx Kidney Transplant: Yes (last hd oct 08 2006) Other/Comment: Aortic valve replacement, left forearm fistula not is use since october 08, 2006 - ANESTHESIA Hx Anesthesia: Yes Hx Anesthesia Reactions: No Hx Malignant Hyperthermia: No Meds Allergies/Adverse Reactions: Allergies Allergy/AdvReac Type Severity Reaction Status Date / Time No Known Allergies Allergy Verified 03/17/17 10:44 - Medications Medications: Current Medications Acetaminophen (Tylenol 325mg Tab) 650 mg PO Q6 PRN PRN Reason: Fever >100.4 F Last Admin: 08/02/17 21:14 Dose: 650 mg Amlodipine Besylate (Norvasc) 5 mg PO BID [facility] Last Admin: 08/02/17 18:48 Dose: 5 mg Atorvastatin Calcium (Lipitor) 20 mg PO DIN [facility] Last Admin: 08/02/17 18:49 Dose: 20 mg Cinacalcet (Sensipar) 30 mg PO DAILY [facility] Clonidine HCl (Catapres) 0.3 mg PO BID [facility] Last Admin: 08/02/17 18:56 Dose: Not Given Ezetimibe (Zetia) 10 mg PO DAILY [facility] Insulin Human Regular (Humulin R Low) 0 units SC [facility] PRN Reason: Protocol Metoprolol Tartrate (Lopressor) 100 mg PO BID [facility] Last Admin: 08/02/17 18:49 Dose: 100 mg Mycophenolate Mofetil (Cellcept Cap) 500 mg PO BID [facility] Last Admin: 08/02/17 18:49 Dose: 500 mg Pantoprazole Sodium (Protonix Ec Tab) 40 mg PO DAILY [facility] Prednisone (Prednisone Tab) 5 mg PO DAILY [facility] Tacrolimus (Prograf Cap) 1 mg PO QPM [facility] Last Admin: 08/02/17 18:49 Dose: 1 mg Tacrolimus (Prograf Cap) 2 mg PO QAM [facility] Trimethoprim/Sulfamethoxazole (Bactrim Ds Tab) 1 tab PO MWF [facility] PRN Reason: Protocol Physical Exam - Constitutional Appears: Non-toxic, No Acute Distress - Eye Exam Eye Exam: absent: Scleral icterus - ENT Exam ENT Exam: Mucous Membranes Moist - Neck Exam Neck exam: Negative for: Lymphadenopathy - Respiratory Exam Respiratory Exam: Clear to Auscultation Bilateral. absent: Respiratory Distress - Cardiovascular Exam Cardiovascular Exam: RRR Additional comments: loud systolic murmur - GI/Abdominal Exam GI & Abdominal Exam: Pulsatile Mass, Soft. absent: Distended, Tenderness - Exam Exam: absent: Bladder Distension - Extremities Exam Additional comments: 2+ b/l lower leg edema - Neurological Exam Neurological exam: Alert, Oriented x3 - Psychiatric Exam Psychiatric exam: Normal Affect, Normal Mood - Skin Skin Exam: Normal Color, Warm Results - Vital Signs Recent Vital Signs: Last Vital Signs Temp 100.5 F H 08/02/17 21:14 Pulse 70 08/02/17 21:04 Resp 20 08/02/17 21:04 BP 139/81 08/02/17 21:04 Pulse Ox 98 08/02/17 14:46 - Labs Result Diagrams: 08/02/17 12:10 08/02/17 12:10 Labs: Laboratory Results - last 24 hr 08/02/17 21:29 POC Glucose (mg/dL) 131 H Assessment & Plan (1) Chronic kidney disease (CKD), stage IV (severe) Assessment and Plan: Serum creatinine actually the lowest it's been in several years (mid-4's last year, now 3.0); one possible explanation is severe muscle wasting rather than actual improvement in renal function; otherwise, relatively stable electrolyte and volume status but need to monitor carefully; -checking 24 hr urine for creatinine clearance; -start sodium bicarb 650 mg bid Status: Chronic (2) Renal transplant, status post Assessment and Plan: Relatively stable allograft function; has been on a stable regimen of tacrolimus 2 mg in am/1 mg in pm, cellcept 500 mg q12h and prednisone 5 mg daily ; continue same; checking tacrolimus trough level in am; Status: Chronic (3) Symptomatic anemia Assessment and Plan: Patient in need of colonoscopy but being deferred due to large AAA; getting prbc transfusion currently; patient should have been on EPO as outpatient CKD management but lost f/u; -giving dose of aranesp 100 mcg today; Status: Acute (4) AAA (abdominal aortic aneurysm) Assessment and Plan: ~8 cm per imaging last year; asymptomatic; to f/u with vascular surgery on d/c; Status: Acute (5) Chronic kidney disease-mineral and bone disorder Assessment and Plan: Secondary hyperparathyroidism; on sensipar 30 mg daily; continue; repeating PTH and vitamin D 25-OH levels; continue cholecalciferol for now; Status: Acute (6) Hypertensive chronic kidney disease Assessment and Plan: BP elevated; continue home meds for now; diuretics prn for now; Status: Chronic
--- NOTE | 2017-08-02 22:26 | CARD ---
APPROVED REPORT EKG Measurement Heart [id number] <Conclusion> Normal sinus rhythm Possible Left atrial enlargement Left ventricular hypertrophy with repolarization abnormality Cannot rule out Inferior infarct, age undetermined Abnormal ECG
[2017-08-02] MEDS: Insulin Reg-LOW-Coverage SC SCH (22:40)
[2017-08-02 22:41] LABS: PH,URINE 5.5 (4.7-8.0); URINE BILIRUBIN NEGATIVE (NEGATIVE); URINE BLOOD TRACE-INTACT (NEGATIVE); URINE GLUCOSE (UA) NEGATIVE (NEGATIVE); URINE LEUKOCYTE ESTERASE NEGATIVE Leu/uL (NEGATIVE); URINE NITRATE NEGATIVE (NEGATIVE); URINE PROTEIN 100 mg/dL (<30 mg/dL); URINE UROBILINOGEN 0.2 E.U./dL (<1 E.U./dL)
[2017-08-02 22:53] LABS: URINE APPEARANCE CLEAR (CLEAR); URINE COLOR YELLOW (YELLOW)
[2017-08-02 23:03] LABS: URINE BACTERIA FEW (NEG); URINE RBC 0 - 2 /hpf (0-2); URINE WBC 0 - 2 /hpf (0-6)
[2017-08-03] MEDS: Insulin Reg-LOW-Coverage SC SCH ×4 (08:06→21:38)
--- NOTE | 2017-08-03 08:59 | RAD ---
HISTORY: r/o CHF COMPARISON: 02/27/2017 FINDINGS: LUNGS: There is moderate pulmonary venous congestion. PLEURA: Question of small right pleural effusion, no pneumothorax apparent. CARDIOVASCULAR: The heart is normal in size. There is unfolding of the aorta. Status post CABG and aortic valve replacement. OSSEOUS STRUCTURES: No significant abnormalities. VISUALIZED UPPER ABDOMEN: Normal. OTHER FINDINGS: None. IMPRESSION: Moderate pulmonary venous congestion and suspect small right pleural effusion.
[2017-08-03] MEDS: Pantoprazole 40 mg EC Tab PO SCH (10:05)
[2017-08-03 13:06] LABS: BASO # 0.01 K/mm3 (0.0-2.0); BASO % 0.3 % (0.0-3.0); EOS # 0.1 (0.0-0.7); EOS % 3.7 % (1.5-5.0); GRAN # 2.55 (1.4-6.5); GRAN % 73.1 % (50.0-68.0); LYMPH # 0.5 (1.2-3.4); LYMPH % 13.2 % (22.0-35.0); MEAN CELL VOLUME 81.8 fl (80.0-105.0); MEAN CORPUSCULAR HEMOGLOBIN 25.2 pg (25.0-35.0); MEAN CORPUSCULAR HGB CONC 30.8 g/dl (31.0-37.0); MONO # 0.3 (0.1-0.6); MONO % 9.7 % (1.0-6.0); PLATELET COUNT 149 10^3/uL (120.0-450.0); RBC 4.24 10^6/uL (3.5-6.1); RED CELL DISTRIBUTION WIDTH 18.5 % (11.5-14.5); WHITE BLOOD COUNT 3.5 10^3/ul (4.5-11.0)
[2017-08-03 13:10] LABS: ALB/GLOB RATIO 1.5 (1.1-1.8); ALBUMIN 4.1 g/dL (3.0-4.8); BILIRUBIN,DIRECT 0.4 mg/dL (0.0-0.4); MAGNESIUM 1.7 mg/dL (1.7-2.2)
[2017-08-03 13:23] LABS: HEMOGLOBIN 10.7 g/dL (14.0-18.0)
--- NOTE | 2017-08-03 13:50 | PN ---
DATE: 08/03/2017 LOCATION: Patient is seen in room 574, bed 2. SUBJECTIVE: Patient is lying in the bed in the process of getting chest x-ray. PHYSICAL EXAMINATION: VITAL SIGNS: T-max 100.5, down to 98.2, blood pressure averaging 130 systolic, 140 systolic, 150 systolic and 143/83 today, respirations 20, O2 sat is 97-100%. INTAKE/OUTPUT: Reviewed. HEENT: Head: Normocephalic, atraumatic. HEENT examination shows pale conjunctivae. Patient appears to be chronically ill appearing with positive facial muscle wasting and cachectic appearing. Questionable soft carotid bruit. CHEST: Kyphosis. Positive median sternotomy surgical scar. Positive systolic murmur, left sternal border, left second intercostal space, left sternal border, right second intercostal space. ABDOMEN: Soft. Positive bowel sounds. Positive palpable mid abdominal pulsation. Positive right-sided surgical scar of cadaveric kidney transplant. Hepatosplenomegaly not appreciated. No guarding. No rigidity. No rebound tenderness. Positive midline pulsation noted. EXTREMITIES: Shows 2 to 3+ pitting edema of the ankles and the legs. Positive SCDs. VASCULAR: Vascular examination could not be palpated. MUSCULOSKELETAL: Shows a body mass index of 19. NEUROLOGICAL: Patient is alert, awake, responsive. He is able to move upper and lower extremity without assistance. Gait examination could not be tested because the patient is . DIAGNOSTIC DATA: From today is pending. Fingerstick blood sugar 80, 61, 130. Patient's chest x-ray and EKG reviewed. IMPRESSION AND PLAN: 1. Severe symptomatic anemia. 2. Severe chronic kidney disease stage IV. 3. Status post allograft renal transplant. 4. Abdominal aortic aneurysm. 5. Hypertensive chronic kidney disease. 6. Low grade fever. 7. Hypertension. 8. History of poor compliance. 9. Leukopenia and severely symptomatic anemia. 10. Chronic kidney disease stage IV. 11. Questionable iron deficiency. 12. Proteinuria, microscopic hematuria, bacteriuria. 13. Status post 4 units of packed red blood cells transfusion. 14. Systolic murmur. 15. History of aortic valve surgery. 16. Pleural effusion. 17. Median sternotomy surgical scar. 18. Aortic valve replacement. 19. Pulmonary vascular congestion and congestive heart failure with bilateral pleural effusion. 20. Hypertensive cardiovascular disease. 21. Status post renal allograft. 22. Post renal transplant diabetes mellitus. 23. History of aortic valve replacement. 24. Unrepaired large abdominal aortic aneurysm. 25. Recurrent symptomatic anemia. 26. Cachexia and failure to thrive. 27. History of hypertension, history of insulin-requiring diabetes mellitus. PLAN AT THIS TIME: Patient has been ordered serial labs. Patient has been ordered lipid panel, hemoglobin A1c, vitamin D 25-hydroxy level. Repeat CBC ordered. Gastroenterology consultation, Hematology consultation, Nephrology consultation ordered. Transitional Care Unit evaluation ordered. Diabetic education evaluation ordered. Patient was given Aranesp 100 mcg subcu x1 yesterday. Patient is on Bactrim DS 1 tablet Saturday, Saturday and Saturday. Patient is on clonidine 0.3 mg twice a day, CellCept, mycophenolate 500 mg twice a day, insulin regular low-dose sliding scale coverage a.c. and h.s. Patient received Lasix 20 mg prior to PRBC, Lipitor 20 mg daily, Lopressor 100 mg twice a day, Norvasc 5 mg daily, prednisone 5 mg daily, Prograf 1 mg p.m. and Prograf 2 mg a.m., Protonix 40 mg daily, Sensipar 30 mg daily, Tylenol 650 q.6 p.r.n., Zetia 10 mg daily. I have ordered an echo with Doppler for evaluation of CHF and murmur. Patient is on renal diet. Patient has been ordered out of bed, KRYSTAL stockings, SCDs. Occupational therapy, physical therapy ordered. We are awaiting for the repeat lab work from today. At present, we are awaiting Hematology/Oncology and Gastroenterology evaluation and Nephrology evaluation noted. ADDENDUM TO IMPRESSION: Secondary hyperparathyroidism. At present, the patient was also advised that the patient should have a close followup on a very regular basis, possibly once or twice a month in the office. According to the patient's history, the patient has not seen any doctor since the patient's last discharge from [facility], where the patient's aneurysm surgery was canceled due to overall patient's malnourished and deconditioned state and the patient has not seen any doctors in the last 5 months and 4 months and the patient just recently had his repeat blood work done with the transplant supervisor case loading. So, there appears to be an element of noncompliance, but the patient was reinforced about close outpatient followup on a regular basis. Patient was also explained extensively about the risk and consequences of not caring for himself which he acknowledged and understand. Patient was also explained about the consequences and complication of his underlying medical condition if not been addressed on a regular basis. Dictated and electronically signed, not read. Mart Knox MD
--- NOTE | 2017-08-03 18:06 | CARD ---
APPROVED REPORT EXAM: Two-dimensional and M-mode echocardiogram with Doppler and color Doppler. INDICATION Congestive Heart Failure 2D DIMENSIONS Left Atrium (2D)5.3 (1.6-4.0cm)IVSd2.0 (0.7-1.1cm) LVDd4.4 (3.9-5.9cm)PWd1.6 (0.7-1.1cm) LVDs2.9 (2.5-4.0cm)FS (%) 33.9 % LVEF (%)62.9 (>50%) M-Mode DIMENSIONS Aortic Root2.20 (2.2-3.7cm) Aortic Valve AoV Peak Qmhdtiho947.0cm/Graham Peak GR.60mmHg Mitral Valve MV E Fdzhnqmm748.0cm/sMV A Vakijhcj148.0cm/sE/A ratio0.9 TDI E/Lateral E'0.0E/Medial E'0.0 Tricuspid Valve TR Peak Mfidvoae791ml/sRAP [id number] Peak Gr.30mmHg [id number] LEFT VENTRICLE The left ventricle is normal size. There is moderate to severe concentric left ventricular hypertrophy. The left ventricular function is normal. The left ventricular ejection fraction is within the normal range. There is normal LV segmental wall motion. Transmitral Doppler flow pattern is Grade I-abnormal relaxation pattern. RIGHT VENTRICLE The right ventricle is normal size. There is normal right ventricular wall thickness. The right ventricular systolic function is normal. ATRIA The left atrium is moderately dilated. The right atrium is mildly dilated. AORTIC VALVE The aortic valve is not well visualized. No aortic regurgitation is present. There is moderate valvular aortic stenosis. MITRAL VALVE The mitral valve is mildly thickened. Mitral regurgitation is mild. There is no mitral valve stenosis. TRICUSPID VALVE There is mild tricuspid regurgitation. There is mild pulmonary hypertension. GREAT VESSELS The aortic root is normal in size. The IVC is normal in size and collapses >50% with inspiration. PERICARDIAL EFFUSION There is a trace circumferential pericardial effusion. <Conclusion> There is moderate to severe concentric left ventricular hypertrophy. The left ventricular function is normal. The left ventricular ejection fraction is within the normal range. There is normal LV segmental wall motion. Transmitral Doppler flow pattern is Grade I-abnormal relaxation pattern. There is moderate valvular aortic stenosis. Mitral regurgitation is mild. There is mild tricuspid regurgitation. There is mild pulmonary hypertension.
--- NOTE | 2017-08-03 20:28 | CP.PCM.PN ---
Subjective - Date & Time of Evaluation Date of Evaluation: 08/03/17 Time of Evaluation: 14:00 - Subjective Subjective: Reports feeling well; ambulating short distances; energy level improved; Objective - Vital Signs/Intake and Output Vital Signs (last 24 hours): Temp Pulse Resp BP Pulse Ox 97.9 F 70 18 140/82 98 08/03/17 15:57 08/03/17 17:18 08/03/17 15:57 08/03/17 17:18 08/03/17 15:57 Intake and Output: 08/03/17 08/04/17 18:59 06:59 Intake Total 520 Balance 520 - Medications Medications: Current Medications Acetaminophen (Tylenol 325mg Tab) 650 mg PO Q6 PRN PRN Reason: Fever >100.4 F Last Admin: 08/03/17 17:16 Dose: 650 mg Amlodipine Besylate (Norvasc) 5 mg PO BID [facility] Last Admin: 08/03/17 17:18 Dose: 5 mg Atorvastatin Calcium (Lipitor) 20 mg PO DIN [facility] Last Admin: 08/03/17 17:18 Dose: 20 mg Cinacalcet (Sensipar) 30 mg PO DAILY [facility] Last Admin: 08/03/17 10:05 Dose: 30 mg Clonidine HCl (Catapres) 0.3 mg PO BID [facility] Last Admin: 08/03/17 17:18 Dose: 0.3 mg Docusate Sodium (Colace) 100 mg PO TID [facility] Ezetimibe (Zetia) 10 mg PO DAILY [facility] Last Admin: 08/03/17 10:04 Dose: 10 mg Insulin Human Regular (Humulin R Low) 0 units SC [facility] PRN Reason: Protocol Last Admin: 08/03/17 17:19 Dose: Not Given Metoprolol Tartrate (Lopressor) 100 mg PO BID [facility] Last Admin: 08/03/17 17:17 Dose: 100 mg Mycophenolate Mofetil (Cellcept Cap) 500 mg PO BID [facility] Last Admin: 08/03/17 17:15 Dose: 500 mg Pantoprazole Sodium (Protonix Ec Tab) 40 mg PO DAILY [facility] Last Admin: 08/03/17 10:05 Dose: 40 mg Prednisone (Prednisone Tab) 5 mg PO DAILY [facility] Last Admin: 08/03/17 10:05 Dose: 5 mg Tacrolimus (Prograf Cap) 1 mg PO QPM [facility] Last Admin: 08/03/17 17:16 Dose: 1 mg Tacrolimus (Prograf Cap) 2 mg PO QAM [facility] Last Admin: 08/03/17 10:04 Dose: 2 mg Trimethoprim/Sulfamethoxazole (Bactrim Ds Tab) 1 tab PO MWF [facility] PRN Reason: Protocol - Labs Labs: 08/03/17 12:15 08/03/17 12:15 PT 11.1 SECONDS (9.4-12.5) 08/02/17 12:10 INR 0.97 (0.93-1.08) 08/02/17 12:10 - Constitutional Appears: Non-toxic, No Acute Distress - Eye Exam Eye Exam: absent: Scleral icterus - ENT Exam ENT Exam: Mucous Membranes Moist - Respiratory Exam Respiratory Exam: absent: Respiratory Distress Additional comments: mild basilar rales; - Cardiovascular Exam Cardiovascular Exam: RRR Additional comments: loud systolic murmur - Extremities Exam Additional comments: moderate lower leg edema; - Neurological Exam Neurological Exam: Alert, Awake - Psychiatric Exam Psychiatric exam: Normal Affect, Normal Mood. absent: Agitated - Skin Skin Exam: Warm. absent: Cyanosis Assessment and Plan (1) Chronic kidney disease (CKD), stage IV (severe) Assessment & Plan: Stable renal function; much improved albumin since last admission goes against protein calorie malnutrition from uremia; currently with relatively stable electrolyte status; has volume excess on exam and CXR but asymptomatic; -awaiting 24 hr urine collection for CrCl and protein; -lasix prn; Status: Chronic (2) Renal transplant, status post Assessment & Plan: Stable allograft function on long time regimen of tacrolimus 2 mg in am/1 mg in pm, MMF 500 mg bid and prednisone 5 mg daily; continue same; repeat tacrolimus level (needs to be drawn as trough level before getting am dose); Status: Chronic (3) Symptomatic anemia Assessment & Plan: Now s/p 4 u prbc; monitor; f/u with heme and GI; should continue with aranesp as outpatient; Status: Acute (4) AAA (abdominal aortic aneurysm) Status: Acute (5) Chronic kidney disease-mineral and bone disorder Assessment & Plan: Vit D 25-OH level replete; awaiting PTH level; continue sensipar 30 mg daily and cholecalciferol for now; Status: Acute (6) Hypertensive chronic kidney disease Assessment & Plan: BP improved after IV lasix dose earlier today; continue current regimen; Status: Chronic
--- NOTE | 2017-08-03 20:31 | CP.PCM.CON ---
History of Present Illness - History of Present Illness History of Present Illness: 66 year old male with a history of of polycystic kidney disease complicated by ESRD s/p renal transplant, CKD, AAA awaiting repair, chronic anemia on intermittent iron, admitted with anemia. The patient was found to have a low hgb and told to report to the hospital. His hgb was found to be 5.5 and he is s /p PRBC transfusion. He notes to chronic fatigue which has been slowly increasing. He does admit to black stools but notes this may be from his iron supplementation. He is awaiting colonoscopy once he completes his AAA repair. Past medical history: polycystic kidney disease, renal transplant, CKD, AAA, anemia Past surgical history: Renal transplant, Aortic valve replacement Family history: Denies hematologic and oncologic problems Social history: Denies tobacco, alcohol, and illicit drug use. Allergies: NKA Review of systems: All remaining review of systems including HEENT, cardiovascular, respiratory, gastrointestinal, genitourinary, musculoskeletal, dermatologic, neurologic, and psychiatric are negative unless mentioned in the HPI. Past Patient History - Infectious Disease Hx of Infectious Diseases: None - Past Medical History & Family History Past Medical History?: Yes - Past Social History Smoking Status: Former Smoker - CARDIAC Hx Cardiac Disorders: Yes Hx Hypertension: Yes Hx Peripheral Edema: Yes (ble +2 pitting) Other/Comment: aortic valve replacement 2002, pt has [facility] pmd "watching it", is scheduled for a procedure at [facility] withini the next few months to "encase" aneurysm with dr culver, aneurysm "got larger" - PULMONARY Hx Respiratory Disorders: No - NEUROLOGICAL Hx Neurological Disorder: No - HEENT Hx HEENT Problems: Yes (wears glasses) - RENAL Hx Chronic Kidney Disease: Yes Hx Dialysis: Yes (left arm fistula) Other/Comment: Kidney transplant , last dialysis oct 08 2006 - ENDOCRINE/METABOLIC Hx Endocrine Disorders: Yes Hx Diabetes Mellitus Type 1: Yes Hx Diabetes Mellitus Type 2: Yes Other/Comment: PT has insulin pump left abdomen, pt developed diabetes about 1 or 2 years after kidney transplant, transplant was done 2007, from taking prednisone every day, pt has an insulin pump in left abd - HEMATOLOGICAL/ONCOLOGICAL Hx Blood Disorders: Yes (blood transfusions) Hx Anemia: Yes (iron deficiency) - INTEGUMENTARY Hx Dermatological Problems: Yes Other/Comment: multiple skin discolorations ble - MUSCULOSKELETAL/RHEUMATOLOGICAL Hx Falls: No - GASTROINTESTINAL Other/Comment: AAA - GENITOURINARY/GYNECOLOGICAL Hx Genitourinary Disorders: Yes Other/Comment: bilateral inguinal hernias (repaired) - PSYCHIATRIC Hx Substance Use: No - SURGICAL HISTORY Hx Kidney Transplant: Yes (last hd oct 08 2006) Other/Comment: Aortic valve replacement, left forearm fistula not is use since october 08, 2006 - ANESTHESIA Hx Anesthesia: Yes Hx Anesthesia Reactions: No Hx Malignant Hyperthermia: No Meds Allergies/Adverse Reactions: Allergies Allergy/AdvReac Type Severity Reaction Status Date / Time No Known Allergies Allergy Verified 03/17/17 10:44 - Medications Medications: Current Medications Acetaminophen (Tylenol 325mg Tab) 650 mg PO Q6 PRN PRN Reason: Fever >100.4 F Last Admin: 08/03/17 17:16 Dose: 650 mg Amlodipine Besylate (Norvasc) 5 mg PO BID [facility] Last Admin: 08/03/17 17:18 Dose: 5 mg Atorvastatin Calcium (Lipitor) 20 mg PO DIN [facility] Last Admin: 08/03/17 17:18 Dose: 20 mg Cinacalcet (Sensipar) 30 mg PO DAILY [facility] Last Admin: 08/03/17 10:05 Dose: 30 mg Clonidine HCl (Catapres) 0.3 mg PO BID [facility] Last Admin: 08/03/17 17:18 Dose: 0.3 mg Docusate Sodium (Colace) 100 mg PO TID [facility] Ezetimibe (Zetia) 10 mg PO DAILY [facility] Last Admin: 08/03/17 10:04 Dose: 10 mg Insulin Human Regular (Humulin R Low) 0 units SC ACHS [facility] PRN Reason: Protocol Last Admin: 08/03/17 17:19 Dose: Not Given Metoprolol Tartrate (Lopressor) 100 mg PO BID [facility] Last Admin: 08/03/17 17:17 Dose: 100 mg Mycophenolate Mofetil (Cellcept Cap) 500 mg PO BID [facility] Last Admin: 08/03/17 17:15 Dose: 500 mg Pantoprazole Sodium (Protonix Ec Tab) 40 mg PO DAILY [facility] Last Admin: 08/03/17 10:05 Dose: 40 mg Prednisone (Prednisone Tab) 5 mg PO DAILY [facility] Last Admin: 08/03/17 10:05 Dose: 5 mg Tacrolimus (Prograf Cap) 1 mg PO QPM [facility] Last Admin: 08/03/17 17:16 Dose: 1 mg Tacrolimus (Prograf Cap) 2 mg PO QAM [facility] Last Admin: 08/03/17 10:04 Dose: 2 mg Trimethoprim/Sulfamethoxazole (Bactrim Ds Tab) 1 tab PO [facility] [place] PRN Reason: Protocol Physical Exam - Head Exam Head Exam: ATRAUMATIC - Eye Exam Eye Exam: Normal appearance - ENT Exam ENT Exam: Mucous Membranes Dry - Respiratory Exam Respiratory Exam: NORMAL BREATHING PATTERN - Cardiovascular Exam Cardiovascular Exam: +S1, +S2 - GI/Abdominal Exam GI & Abdominal Exam: Normal Bowel Sounds - Extremities Exam Extremities exam: Positive for: normal inspection - Neurological Exam Neurological exam: Oriented x3 - Psychiatric Exam Psychiatric exam: Normal Affect, Normal Mood - Skin Skin Exam: Warm Results - Vital Signs Recent Vital Signs: Last Vital Signs Temp 97.9 F 08/03/17 15:57 Pulse 70 08/03/17 17:18 Resp 18 08/03/17 15:57 BP 140/82 08/03/17 17:18 Pulse Ox 98 08/03/17 15:57 - Labs Result Diagrams: 08/03/17 12:15 08/03/17 12:15 Labs: Laboratory Results - last 24 hr 08/03/17 08/03/17 08/03/17 11:51 12:15 12:15 WBC 3.5 L RBC 4.24 Hgb 10.7 L D Hct 34.7 L MCV 81.8 MCH 25.2 MCHC 30.8 L RDW 18.5 H Plt Count 149 Gran % 73.1 H Lymph % (Auto) 13.2 L Bonner % (Auto) 9.7 H Eos % (Auto) 3.7 Baso % (Auto) 0.3 Gran # 2.55 Lymph # (Auto) 0.5 L Bonner # (Auto) 0.3 Eos # (Auto) 0.1 Baso # (Auto) 0.01 Sodium Potassium Chloride Carbon Dioxide Anion Gap BUN Creatinine Est GFR ( Amer) Est GFR (Non-Af Amer) POC Glucose (mg/dL) 72 Random Glucose Calcium Magnesium Total Bilirubin Direct Bilirubin AST ALT Alkaline Phosphatase Total Protein Albumin Globulin Albumin/Globulin Ratio 25-OH Vitamin D Total 41.7 08/03/17 08/03/17 12:15 16:04 WBC RBC Hgb Hct MCV MCH MCHC RDW Plt Count Gran % Lymph % (Auto) Bonner % (Auto) Eos % (Auto) Baso % (Auto) Gran # Lymph # (Auto) Bonner # (Auto) Eos # (Auto) Baso # (Auto) Sodium 146 Potassium 4.7 Chloride 112 H Carbon Dioxide 22 Anion Gap 17 BUN 39 H Creatinine 2.8 H Est GFR ( Amer) 28 Est GFR (Non-Af Amer) 23 POC Glucose (mg/dL) 192 H Random Glucose 82 Calcium 9.0 Magnesium 1.7 Total Bilirubin 0.4 Direct Bilirubin 0.4 AST 46 ALT 28 Alkaline Phosphatase 82 Total Protein 6.9 Albumin 4.1 Globulin 2.8 Albumin/Globulin Ratio 1.5 25-OH Vitamin D Total Assessment & Plan (1) Symptomatic anemia Assessment and Plan: iron deficiency anemia and anemia of CKD element of bone marrow suppression from immunosuppression s/p PRBC transfusion and Aranesp will start Venofer for GI w/u once AAA repaired Status: Acute (2) Leukopenia Assessment and Plan: secondary to immunosuppression no neutropenia Thank you for this interesting consult. Status: Acute
[2017-08-04 07:17] LABS: BASO # 0.03 K/mm3 (0.0-2.0); BASO % 0.9 % (0.0-3.0); EOS # 0.1 (0.0-0.7); GRAN # 2.01 (1.4-6.5); GRAN % 62.3 % (50.0-68.0); HEMOGLOBIN 10.2 g/dL (14.0-18.0); LYMPH # 0.5 (1.2-3.4); LYMPH % 16.7 % (22.0-35.0); MEAN CELL VOLUME 82.9 fl (80.0-105.0); MEAN CORPUSCULAR HEMOGLOBIN 24.9 pg (25.0-35.0); MEAN CORPUSCULAR HGB CONC 30.1 g/dl (31.0-37.0); MONO # 0.5 (0.1-0.6); MONO % 16.1 % (1.0-6.0); PLATELET COUNT 157 10^3/uL (120.0-450.0); RBC 4.09 10^6/uL (3.5-6.1); RED CELL DISTRIBUTION WIDTH 18.4 % (11.5-14.5); WHITE BLOOD COUNT 3.2 10^3/ul (4.5-11.0)
[2017-08-04 07:32] LABS: CALCIUM 9.1 mg/dL (8.4-10.5); MAGNESIUM 1.6 mg/dL (1.7-2.2)
[2017-08-04 07:33] LABS: ALB/GLOB RATIO 1.3 (1.1-1.8); ALBUMIN 3.5 g/dL (3.0-4.8); BILIRUBIN,DIRECT 0.4 mg/dL (0.0-0.4)
[2017-08-04 08:21] VITALS: RESP 16; TEMP 99.8; O2SAT 98
[2017-08-04] MEDS: Insulin Reg-LOW-Coverage SC SCH ×2 (08:25→11:42)
[2017-08-04] MEDS ORDERED: Magnesium Sulfate 2 GM in Sodium Chloride 0.9% 100 ML IVPB ONE (08:25)
[2017-08-04 08:40] LABS: FREE T4 0.96 ng/dL (0.78-2.19)
[2017-08-04 09:06] LABS: T4 7.6 ug/dL (5.5-11.0)
[2017-08-04] MEDS: Pantoprazole 40 mg EC Tab PO SCH (09:40)
[2017-08-04 10:09] VITALS: PULSE 67
[2017-08-04 12:19] LABS: HEPATITIS B SURFACE AG Negative (NEGATIVE)
[2017-08-04 12:26] LABS: HEPATITIS A IGM NEGATIVE (NEGATIVE); HEPATITIS B CORE AB NEGATIVE (NEGATIVE)
[2017-08-04 12:36] LABS: HEPATITIS C ANTIBODY NEGATIVE (NEGATIVE)
--- NOTE | 2017-08-04 15:03 | CP.PCM.PN ---
Subjective - Date & Time of Evaluation Date of Evaluation: 08/04/17 Time of Evaluation: 11:30 - Subjective Subjective: Patient reports feeling much more energetic; denies shortness of breath; Objective - Vital Signs/Intake and Output Vital Signs (last 24 hours): Temp Pulse Resp BP Pulse Ox 99.8 F H 67 16 164/94 H 98 08/04/17 08:20 08/04/17 10:02 08/04/17 08:20 08/04/17 11:54 08/04/17 08:20 Intake and Output: 08/04/17 08/04/17 06:59 18:59 Intake Total 900 Output Total 500 Balance 400 - Medications Medications: Current Medications Acetaminophen (Tylenol 325mg Tab) 650 mg PO Q6 PRN PRN Reason: Fever >100.4 F Last Admin: 08/03/17 17:16 Dose: 650 mg Amlodipine Besylate (Norvasc) 5 mg PO BID [facility] Last Admin: 08/04/17 10:02 Dose: 5 mg Atorvastatin Calcium (Lipitor) 20 mg PO DIN [facility] Last Admin: 08/03/17 17:18 Dose: 20 mg Cinacalcet (Sensipar) 30 mg PO DAILY [facility] Last Admin: 08/04/17 09:40 Dose: 30 mg Clonidine HCl (Catapres) 0.3 mg PO BID [facility] Last Admin: 08/04/17 10:02 Dose: 0.3 mg Docusate Sodium (Colace) 100 mg PO TID [facility] Last Admin: 08/04/17 13:29 Dose: Not Given Ezetimibe (Zetia) 10 mg PO DAILY [facility] Last Admin: 08/04/17 09:40 Dose: 10 mg Furosemide (Lasix) 40 mg PO DAILY [facility] Last Admin: 08/04/17 11:54 Dose: 40 mg Iron Sucrose 200 mg/ Sodium (Chloride) 110 mls @ 110 mls/hr IVPB DAILY [facility] Stop: 08/08/17 21:01 Last Admin: 08/04/17 11:41 Dose: 110 mls/hr Insulin Human Regular (Humulin R Low) 0 units SC ACHS [facility] PRN Reason: Protocol Last Admin: 08/04/17 11:42 Dose: 2 units Metoprolol Tartrate (Lopressor) 100 mg PO BID [facility] Last Admin: 08/04/17 10:02 Dose: 100 mg Mycophenolate Mofetil (Cellcept Cap) 500 mg PO BID [facility] Last Admin: 08/04/17 09:39 Dose: 500 mg Pantoprazole Sodium (Protonix Ec Tab) 40 mg PO DAILY [facility] Last Admin: 08/04/17 09:40 Dose: 40 mg Prednisone (Prednisone Tab) 5 mg PO DAILY [facility] Last Admin: 08/04/17 09:39 Dose: 5 mg Tacrolimus (Prograf Cap) 1 mg PO QPM [facility] Last Admin: 08/03/17 17:16 Dose: 1 mg Tacrolimus (Prograf Cap) 2 mg PO QAM [facility] Last Admin: 08/04/17 09:39 Dose: 2 mg Trimethoprim/Sulfamethoxazole (Bactrim Ds Tab) 1 tab PO MWF [facility] PRN Reason: Protocol - Labs Labs: 08/04/17 06:30 08/04/17 06:30 PT 11.1 SECONDS (9.4-12.5) 08/02/17 12:10 INR 0.97 (0.93-1.08) 08/02/17 12:10 - Constitutional Appears: Non-toxic, No Acute Distress - Eye Exam Eye Exam: absent: Scleral icterus - ENT Exam ENT Exam: Mucous Membranes Moist - Respiratory Exam Respiratory Exam: Clear to Ausculation Bilateral. absent: Respiratory Distress - Cardiovascular Exam Cardiovascular Exam: RRR Additional comments: loud systolic murmur - GI/Abdominal Exam GI & Abdominal Exam: Soft, Pulsatile Mass. absent: Distended, Tenderness - Extremities Exam Additional comments: moderate b/l lower leg edema; - Neurological Exam Neurological Exam: Alert, Awake - Psychiatric Exam Psychiatric exam: Normal Affect, Normal Mood. absent: Agitated - Skin Skin Exam: Warm. absent: Cyanosis Assessment and Plan (1) Chronic kidney disease (CKD), stage IV (severe) Assessment & Plan: Stable renal function; 24 hr urine sent for CrCl and protein, will f/u as outpatient; patient counseled for need for close f/u with PMD and nephro; I told him clearly that his severe anemia along with ensuing lethargy and deconditioning may have been avoided with adequate f/u; Status: Chronic (2) Renal transplant, status post Assessment & Plan: Stable allograft status; continuing same immunosuppression; will f/u tacrolimus trough level as outpatient; Status: Chronic (3) Symptomatic anemia Assessment & Plan: s/p aranesp, blood transfusion and IV iron, will f/u with heme; Status: Acute (4) AAA (abdominal aortic aneurysm) Status: Acute (5) Chronic kidney disease-mineral and bone disorder Assessment & Plan: Will f/u PTH level; continue same dose of sensipar and cholecalciferol for now; Status: Acute (6) Hypertensive chronic kidney disease Assessment & Plan: BP elevated; may benefit from standing diuretic dose; giving lasix 40 mg PO once today; told him to monitor home BP readings and report to us; Status: Chronic
[2017-08-04 15:09] VITALS: BP 160/90
[2017-08-04 17:31] LABS: URINE CREATININE 33.3 mg/dL
[2017-08-05] MEDS ORDERED: Tmp-Smz 800 mg-160 mg DS Tab PO SCH (10:00)
--- NOTE | 2017-08-05 12:19 | DS ---
LOCATION: The patient was seen lying in the bed in room 574, bed 2. Overnight nurses' notes were reviewed. The patient did not have any adverse events documented. The patient underwent echocardiogram. PHYSICAL EXAMINATION VITAL SIGNS: T-max is 98.8; pulse 67; blood pressure 164/94, 159/91, 152/94, 136/78; respirations are 16-20, O2 saturation is 98% to 96%. Output, only 500 mL. HEENT: Head examination: Normocephalic, atraumatic. HEENT examination shows pinkish pale conjunctivae. Anicteric sclerae. No oropharyngeal lesion. No jugular venous distention. CHEST: Kyphosis. Positive median sternotomy surgical scar. CARDIOVASCULAR: S1, S2. Regular rhythm. Positive systolic murmur, left sternal border, right second intercostal space and left second intercostal space. ABDOMEN: Soft. Positive midline pulsation. GENITALIA: Male. RECTAL: Deferred. EXTREMITIES: Show still pitting edema of the lower extremity and the ankle edema noted. The patient is refusing to wear KRYSTAL stockings and SCDs at all, but the patient refused to wear KRYSTAL stockings. MUSCULOSKELETAL: Examination shows a body mass index of 17.9. Gait examination not tested. VASCULAR: Unable to palpate lower extremity pulses. Positive AV fistula, left upper extremity. Positive thrill. DIAGNOSTICS: August 04, 2017: WBC 3.2, hemoglobin and hematocrit 10.2 and 34, platelet 157,000. Sodium 144, potassium 5.0, chloride 111, CO2 22, anion gap 16, BUN 38, creatinine 2.6, GFR 30. Fingerstick blood sugar 238, 172, 187, 306; calcium 9.1, phosphorus 3.4, magnesium 1.6. LFTs are normal. Thyroid panel: TSH 2.78, T4 of 7.6. Vitamin D 25-hydroxy 41. Cholesterol 139, triglycerides 130, LDL 68, HDL 40. RPR is negative. Hepatitis A, B, C serologies negative. The patient received four units of O+ blood type during this hospitalization. Echocardiogram report was reviewed and explained to the patient. FINAL IMPRESSION, PLAN AND DISCHARGE DIAGNOSES: 1. Severe symptomatic anemia, etiology undetermined, probably bone marrow failure. 2. Status post four units of O+ blood transfusion. 3. Hypertension. 4. Poor compliance and noncompliance. 5. Bilateral lower extremity venous stasis and pitting edema. 6. Anemia. 7. Transient granulocytosis. 8. Severe chronic kidney disease stage IV. 9. Insulin-requiring diabetes mellitus with hyperglycemia. 10. Hypomagnesemia. 11. Iron deficiency. 12. Proteinuria. 13. Microscopic hematuria. 14. Left upper extremity arteriovenous fistula. 15. Small right pleural effusion. 16. Status post median sternotomy and aortic valve replacement. 17. Pulmonary vascular congestion. 18. Left ventricular ejection fraction of 62%. 19. [id number] left ventricular hypertrophy with hypertensive cardiovascular disease. 20. Pulmonary arterial hypertension with right ventricular systolic pressure of 40 mmHg. 21. Grade 1 abnormal relaxation pattern. 22. Moderately dilated left atrium. 23. Moderate valvular aortic stenosis with peak aortic valve gradient of 60 mmHg and velocity of 387. 24. Mildly thickened mitral valve with mild mitral regurgitation. 25. Mild tricuspid regurgitation. 26. History of polycystic kidney disease. 27. History of end-stage renal disease, hemodialysis dependent in the past. 28. Severe symptomatic anemia with iron deficiency and anemia of chronic kidney disease with element of bone marrow suppression from immunosuppression. 29. Leukopenia secondary to immunosuppression. 30. Hypoalbuminemia. 31. Congestive heart failure. 32. Status post allograft renal transplant, on Prograf, prednisone and CellCept. 33. Thoracic and abdominal aortic aneurysm. 34. Hypertensive cardiovascular/kidney disease. 35. Hyperlipidemia. 36. Constipation. PLAN: At this time, recommendation from Hematology/Oncology and Nephrology were noted. The patient's hemoglobin and hematocrit has been stable for the last 48 hours. The patient will be considered for discharge home today. The patient will be discharged home with discharge followup with Dr. Knox within one week, Dr. Leigh within one week, Dr. Dandy Wheeler within one week, Dr. Cordova within one week. The patient will complete 24-hour urine collection at 03:00 p.m. today and after that, the patient will be discharged home. The patient has been given magnesium sulfate riders. The patient's current medications as of today are Bactrim DS 1 tablet Saturday, Saturday and Saturday; clonidine 0.3 mg twice a day; CellCept 500 mg twice a day; Colace 100 mg three times a day; Nexium; low-dose sliding scale coverage before meals and at bedtime; Venofer 200 mg IV daily, the patient has already received three doses; Lasix started by Dr. Wheeler with Lasix 40 mg p.o. daily; Lipitor 20 mg daily; Lopressor 100 mg twice a day; magnesium sulfate 2 g x1 dose; Norvasc 5 mg twice a day; prednisone 5 mg daily; Prograf 1 mg p.m. and Prograf 2 mg a.m.; Protonix 40 mg daily; Sensipar 30 mg daily; Tylenol 650 q.6 h. p.r.n.; Zetia 10 mg daily. The patient is on renal diet, out of bed, KRYSTAL stockings, SCDs, occupational therapy, physical therapy. The patient was seen by physical therapist. The patient is to be discharged today. DISCHARGE MEDICATIONS 1. Norvasc 5 mg twice a day or 10 mg once a day. 2. Sensipar 30 mg daily. 3. Clonidine 0.3 mg twice a day. 4. Colace 100 mg three times a day. 5. Zetia 10 mg daily. 6. Iron supplements 324 mg twice a day. 7. Lasix 40 mg p.o. daily. 8. Amaryl 2 mg daily. 9. Humalog 20 daily. 10. Hydralazine 25 mg twice a day. 11. Lopressor 100 mg twice a day. 12. CellCept 500 mg twice a day. 13. Protonix 40 mg daily. 14. Pravachol 40 mg daily. 15. Prednisone 5 mg daily. 16. Bactrim DS 1 tablet Saturday, Saturday and Saturday. 17. Prograf 1 mg p.m. and 2 mg a.m. The patient is to be discharged home with discharge followup with Dr. Knox within one week, Dr. Wheeler within one week, Dr. Leigh within one week, Dr. Cordova , within one week. The patient is also advised to follow up with Dr. Rashaun Wilkinson, vascular surgeon, within 1 week and transplant preform plate maker within one week. The patient was advised to be given a copy of the heart healthy, renal diet to the patient upon discharge. During this hospitalization, the patient was explained about the diagnostic test results and recommendation by all the physicians involved in the care of the patient on a daily basis. Time spent in the entire discharge process was more than 45 minutes. Dictated and electronically signed, not read. Mart MD [facility] # [id number]
== END 2017-08-04 16:55 | disposition home or self-care (01) | DRG 811 ==
LOC: ED 11:32 → ERH 14:08 → 5RSO 17:21 → OBSVTOIN 08-03 10:48
PROVIDERS: ADMIT Internal Medicine; ATTEND Internal Medicine
PROC: 30233N1 Transfusion of Nonautologous Red Blood Cells into Peripheral Vein, Percutaneous Approach (ICD-10-PCS; principal; 2017-08-02)
DX: D50.9 Iron deficiency anemia, unspecified (principal); N18.6 End stage renal disease; I13.0 Hypertensive heart and chronic kidney disease with heart failure and stage 1 through stage 4 chronic kidney disease, or unspecified chronic kidney disease; Q61.3 Polycystic kidney, unspecified; Z94.0 Kidney transplant status; N18.4 Chronic kidney disease, stage 4 (severe); N25.81 Secondary hyperparathyroidism of renal origin; R64 Cachexia; Z68.1 Body mass index [BMI] 19.9 or less, adult; D63.1 Anemia in chronic kidney disease; I50.9 Heart failure, unspecified; E11.22 Type 2 diabetes mellitus with diabetic chronic kidney disease; I08.1 Rheumatic disorders of both mitral and tricuspid valves; E88.09 Other disorders of plasma-protein metabolism, not elsewhere classified; I71.4 Abdominal aortic aneurysm, without rupture; E78.5 Hyperlipidemia, unspecified; D72.819 Decreased white blood cell count, unspecified; R31.29 Other microscopic hematuria; K57.30 Diverticulosis of large intestine without perforation or abscess without bleeding; E53.8 Deficiency of other specified B group vitamins; K59.00 Constipation, unspecified; Z87.891 Personal history of nicotine dependence; Z95.3 Presence of xenogenic heart valve; Z79.84 Long term (current) use of oral hypoglycemic drugs; Z79.899 Other long term (current) drug therapy; Z91.19 Patient's noncompliance with other medical treatment and regimen

== ENCOUNTER 2017-09-11 15:29 | Inpatient (IN) | payer MEDICARE, OTHER ==
--- NOTE | 2017-09-11 16:50 | ED PDOC ---
Arrival/HPI - General Chief Complaint: Abnormal Labs Time Seen by Provider: 09/11/17 15:52 Historian: Patient - History of Present Illness Narrative History of Present Illness (Text): 09/11/17 16:44 A 66 year old male, whose past medical history includes polycystic kidney disease s/p renal transplant, hypertension, CKD, iron-deficiency anemia, AAA w/ aortic dissection, sent into the emergency department by PMD for a low hemoglobin count. Patient had blood work done yesterday which showed a hemoglobin of 6. Patient was instructed to present to the emergency room for a blood transfusion. Patient has a history of 3 transfusions in the past. Patient notes mild fatigue and shortness of breath, which feel like his usual symptoms associated with a low hemoglobin. Patient denies any fever, chills, nausea, vomiting, diarrhea, constipation, abdominal pain, chest pain, cough, headache, dizziness or any other complaints. Patient reports 8 cm triple A will be incased next week at [facility] on 09/20/17. PMD: Dr. Knox Past Medical History - Provider Review Nursing Documentation Reviewed: Yes - Infectious Disease Hx of Infectious Diseases: None - Cardiac Hx Cardiac Disorders: Yes (CAD) Hx Hypertension: Yes Other/Comment: Aortic Valve Replacement, aortic abdominal aneurysm - Pulmonary Hx Respiratory Disorders: No - Neurological Hx Neurological Disorder: No - HEENT Hx HEENT Disorder: Yes (wears glasses) - Renal Hx Renal Disorder: Yes Hx Dialysis: Yes (left arm fistula) Other/Comment: Kidney transplant , last dialysis oct 08 2006 - Endocrine/Metabolic Hx Endocrine Disorders: Yes Hx Diabetes Mellitus Type 2: Yes - Hematological/Oncological Hx Blood Disorders: Yes (blood transfusions) Hx Anemia: Yes (iron deficiency) - Integumentary Hx Dermatological Disorder: Yes Other/Comment: multiple skin discolorations ble - Musculoskeletal/Rheumatological Hx Musculoskeletal Disorders: No - Gastrointestinal Hx Gastrointestinal Disorders: Yes Other/Comment: AAA - Genitourinary/Gynecological Hx Genitourinary Disorders: Yes Other/Comment: bilateral inguinal hernias (repaired) - Psychiatric Hx Psychophysiologic Disorder: No Hx Substance Use: No - Surgical History Hx Kidney Transplant: Yes (last hd oct 08 2006) Other/Comment: Aortic valve replacement, left forearm fistula not is use since october 08, 2006 - Anesthesia Hx Anesthesia: Yes Hx Anesthesia Reactions: No Hx Malignant Hyperthermia: No Family/Social History - Physician Review Nursing Documentation Reviewed: Yes Family/Social History: No Known Family HX Smoking Status: Former Smoker Hx Alcohol Use: No Hx Substance Use: No Allergies/Home Meds Allergies/Adverse Reactions: Allergies No Known Allergies Allergy (Verified 09/11/17 16:07) Review of Systems - Physician Review All systems were reviewed & negative as marked: Yes - Review of Systems Constitutional: Fatigue. absent: Fevers, Night Sweats Respiratory: SOB. absent: Cough Cardiovascular: absent: Chest Pain Gastrointestinal: absent: Abdominal Pain, Constipation, Diarrhea, Nausea, Vomiting Neurological: absent: Headache, Dizziness Physical Exam Vital Signs Reviewed: Yes Vital Signs Temp Pulse Resp BP Pulse Ox 09/11/17 21:15 98.1 F 63 17 140/61 09/11/17 20:45 98.4 F 62 17 136/73 09/11/17 20:15 98.5 F 63 17 134/74 09/11/17 19:36 98.6 F 65 18 140/76 09/11/17 19:18 98.2 F 66 17 128/71 09/11/17 19:16 98.2 F 66 17 100 09/11/17 18:11 68 18 137/69 99 09/11/17 16:06 97.9 F 70 18 139/68 99 Temperature: Afebrile Blood Pressure: Normal Pulse: Regular Respiratory Rate: Normal Appearance: Positive for: Well-Appearing, Non-Toxic, Comfortable Pain Distress: None Mental Status: Positive for: Alert and Oriented X 3 - Systems Exam Head: Present: Atraumatic, Normocephalic Pupils: Present: PERRL Extroacular Muscles: Present: EOMI Conjunctiva: Present: Normal Mouth: Present: Moist Mucous Membranes Neck: Present: Normal Range of Motion Respiratory/Chest: Present: Clear to Auscultation, Good Air Exchange. No: Respiratory Distress, Accessory Muscle Use Cardiovascular: Present: Murmurs (aortic murmur), Normal S1, S2 Abdomen: No: Tenderness, Distention, Peritoneal Signs, Mass/Organomegaly, Other (bruits) Back: Present: Normal Inspection Upper Extremity: Present: Normal Inspection. No: Cyanosis, Edema Lower Extremity: Present: Normal Inspection. No: Edema Neurological: Present: GCS=15, CN II-XII Intact, Speech Normal Skin: Present: Warm, Dry, Normal Color. No: Rashes Psychiatric: Present: Alert, Oriented x 3, Normal Insight, Normal Concentration Medical Decision Making ED Course and Treatment: 09/11/17 16:44 Impression: A 66 year old male with a hemoglobin level of 6. Patient sent in by PMD for blood transfusion. Plan: -- Labs -- Reassess and disposition Progress Notes: 09/11/17 18:42 Dr. Jaiver johnson, awaiting call back. - Lab Interpretations Lab Results: 09/11/17 17:15 09/11/17 17:15 Lab Results 09/11/17 18:38: POC Glucose (mg/dL) 100 09/11/17 17:50: POC Glucose (mg/dL) 60 L 09/11/17 17:15: Iron 54, TIBC 306, % Saturation 18 L 09/11/17 17:15: PT 11.2, INR 0.98 09/11/17 17:15: Blood Type O POSITIVE, Antibody Screen Negative, Crossmatch See Detail, BBK History Checked Patient has bt 09/11/17 17:15: Sodium 145, Potassium 4.3, Chloride 111 H, Carbon Dioxide 20 L, Anion Gap 18, BUN 49 H, Creatinine 3.4 H, Est GFR ( Amer) 22, Est GFR ( Non-Af Amer) 18, Random Glucose 62 L, Calcium 9.0, Total Bilirubin 0.2, AST 31, ALT 27, Alkaline Phosphatase 92, Total Protein 7.0, Albumin 4.0, Globulin 3.1, Albumin/Globulin Ratio 1.3 09/11/17 17:15: WBC 4.6 D, RBC 2.95 L, Hgb 7.1 L D, Hct 23.7 L, MCV 80.3, MCH 24.1 L, MCHC 30.0 L, RDW 17.5 H, Plt Count 201, Gran % 73.0 H, Lymph % (Auto) 17.1 L, [place] % (Auto) 6.6 H, Eos % (Auto) 2.9, Baso % (Auto) 0.4, Gran # 3.33, Lymph # (Auto) 0.8 L, [place] # (Auto) 0.3, Eos # (Auto) 0.1, Baso # (Auto) 0.02 - Medication Orders Current Medication Orders: Amlodipine Besylate (Norvasc) 10 mg PO DAILY [facility] Last Admin: 09/12/17 10:25 Dose: 10 mg MAR Blood Pressure Document 09/12/17 10:25 CANDIDO (Rec: 09/12/17 10:25 [id number] Blood Pressure Blood Pressure (100/60-150/90) 150/69 Atorvastatin Calcium (Lipitor) 10 mg PO DIN [facility] Last Admin: 09/12/17 18:02 Dose: 10 mg Cinacalcet (Sensipar) 30 mg PO DAILY [facility] Last Admin: 09/12/17 10:25 Dose: 30 mg Clonidine HCl (Catapres) 0.3 mg PO BID [facility] Last Admin: 09/12/17 18:03 Dose: 0.3 mg Docusate Sodium (Colace) 100 mg PO TID [facility] Last Admin: 09/12/17 18:03 Dose: Not Given Non-Admin Reason: Patient Refused Ezetimibe (Zetia) 10 mg PO DAILY [facility] Last Admin: 09/12/17 10:26 Dose: 10 mg Ferrous Gluconate (Fergon) 324 mg PO TID [facility] Last Admin: 09/12/17 18:03 Dose: 324 mg Furosemide (Lasix) 40 mg PO DAILY [facility] Last Admin: 09/12/17 10:26 Dose: 40 mg MAR Blood Pressure Document 09/12/17 10:26 CANDIDO (Rec: 09/12/17 10:26 [id number] Blood Pressure Blood Pressure (100/60-150/90) 150/69 Glimepiride (Amaryl) 2 mg PO BRK [facility] Last Admin: 09/12/17 12:37 Dose: Not Given Non-Admin Reason: Blood Sugar Parameter Iron Sucrose 200 mg/ Sodium (Chloride) 110 mls @ 110 mls/hr IVPB DAILY [facility] Stop: 09/17/17 10:01 Last Admin: 09/12/17 10:06 Dose: 110 mls/hr eMAR Start Stop Document 09/12/17 10:06 CANDIDO (Rec: 09/12/17 10:06 [id number]) Intravenous Solution Start Date 09/12/17 Start Time 10:06 Mycophenolate Mofetil (Cellcept Cap) 500 mg PO BID [facility] Last Admin: 09/12/17 18:02 Dose: 500 mg Pantoprazole Sodium (Protonix Ec Tab) 40 mg PO 0600 [facility] Last Admin: 09/12/17 14:34 Dose: 40 mg Prednisone (Prednisone Tab) 5 mg PO DAILY [facility] Last Admin: 09/12/17 10:25 Dose: 5 mg Tacrolimus (Prograf Cap) 1 mg PO QPM [facility] Last Admin: 09/12/17 18:03 Dose: 1 mg Tacrolimus (Prograf Cap) 2 mg PO QAM [facility] Last Admin: 09/12/17 10:26 Dose: 2 mg Discontinued Medications Darbepoetin Wilmar (Aranesp) 40 mcg SC ONCE ONE Stop: 09/12/17 18:02 Dextrose (Dextrose 50% Inj) 50 ml IVP ONCE ONE Stop: 09/11/17 22:49 Last Admin: 09/11/17 22:58 Dose: 50 ml IVP Administration Document 09/11/17 22:58 MAD (Rec: 09/11/17 22:58 [id number]) Charges for Administration # of IVP Administrations 1 Dextrose (Dextrose 50% Inj) 50 ml IVP STAT STA Stop: 09/12/17 05:58 Last Admin: 09/12/17 06:08 Dose: 50 ml Comments: fbg 49, 130 post infusion IVP Administration Document 09/12/17 06:08 MAD (Rec: 09/12/17 06:09 MAD [id number]) Charges for Administration # of IVP Administrations 1 - Scribe Statement The provider has reviewed the documentation as recorded by the Lisa Wright Provider Scribe Attestation: All medical record entries made by the Scribe were at my direction and personally dictated by me. I have reviewed the chart and agree that the record accurately reflects my personal performance of the history, physical exam, medical decision making, and the department course for this patient. I have also personally directed, reviewed, and agree with the discharge instructions and disposition. Disposition/Present on Arrival - Present on Arrival Any Indicators Present on Arrival: No History of DVT/PE: No History of Uncontrolled Diabetes: No Urinary Catheter: No History of Decub. Ulcer: No History Surgical Site Infection Following: None - Disposition Have Diagnosis and Disposition been Completed?: Yes Diagnosis: Symptomatic anemia Disposition: HOSPITALIZED Disposition Time: 22:00 Patient Plan: Admission Patient Problems: Current Active Problems Problem Status Onset Anemia Acute Condition: GOOD
[2017-09-11 17:33] LABS: BASO # 0.02 K/mm3 (0.0-2.0); BASO % 0.4 % (0.0-3.0); EOS # 0.1 (0.0-0.7); EOS % 2.9 % (1.5-5.0); GRAN # 3.33 (1.4-6.5); HEMOGLOBIN 7.1 g/dL (14.0-18.0); LYMPH # 0.8 (1.2-3.4); LYMPH % 17.1 % (22.0-35.0); MEAN CELL VOLUME 80.3 fl (80.0-105.0); MEAN CORPUSCULAR HEMOGLOBIN 24.1 pg (25.0-35.0); MONO # 0.3 (0.1-0.6); MONO % 6.6 % (1.0-6.0); PLATELET COUNT 201 10^3/uL (120.0-450.0); RBC 2.95 10^6/uL (3.5-6.1); RED CELL DISTRIBUTION WIDTH 17.5 % (11.5-14.5); WHITE BLOOD COUNT 4.6 10^3/ul (4.5-11.0)
[2017-09-11 17:40] LABS: INR 0.98 (0.93-1.08); PROTHROMBIN TIME 11.2 SECONDS (9.4-12.5)
[2017-09-11 17:46] LABS: ALB/GLOB RATIO 1.3 (1.1-1.8)
--- NOTE | 2017-09-11 21:44 | CP.PCM.HP ---
History of Present Illness - History of Present Illness History of Present Illness: (covering for Dr. Knox) 66 year old male with history of polycystic kidney disease s/p renal transplant in 2006, secondary diabetes, aortic valve replacement and abdominal aortic aneurysm who had bloodwork done by Dr. Knox. The blood work showed hemoglobin of 6.7. Patient says he is scheduled for AAA repair next week. Present on Admission - Present on Admission Any Indicators Present on Admission: No History of DVT/PE: No History of Uncontrolled Diabetes: No Urinary Catheter: No Decubitus Ulcer Present: No Review of Systems - Constitutional Constitutional: absent: Chills, Fever Past Patient History - Infectious Disease Hx of Infectious Diseases: None - Past Medical History & Family History Past Medical History?: Yes - Past Social History Smoking Status: Former Smoker - CARDIAC Hx Cardiac Disorders: Yes (CAD) Hx Hypertension: Yes Other/Comment: Aortic Valve Replacement, aortic abdominal aneurysm - PULMONARY Hx Respiratory Disorders: No - NEUROLOGICAL Hx Neurological Disorder: No - HEENT Hx HEENT Problems: Yes (wears glasses) - RENAL Hx Chronic Kidney Disease: Yes Hx Dialysis: Yes (left arm fistula) Other/Comment: Kidney transplant , last dialysis oct 08 2006 - ENDOCRINE/METABOLIC Hx Endocrine Disorders: Yes Hx Diabetes Mellitus Type 2: Yes - HEMATOLOGICAL/ONCOLOGICAL Hx Blood Disorders: Yes (blood transfusions) Hx Anemia: Yes (iron deficiency) - INTEGUMENTARY Hx Dermatological Problems: Yes Other/Comment: multiple skin discolorations ble - MUSCULOSKELETAL/RHEUMATOLOGICAL Hx Musculoskeletal Disorders: No - GASTROINTESTINAL Hx Gastrointestinal Disorders: Yes Other/Comment: AAA - GENITOURINARY/GYNECOLOGICAL Hx Genitourinary Disorders: Yes Other/Comment: bilateral inguinal hernias (repaired) - PSYCHIATRIC Hx Psychophysiologic Disorder: No Hx Substance Use: No - SURGICAL HISTORY Hx Kidney Transplant: Yes (last hd oct 08 2006) Other/Comment: Aortic valve replacement, left forearm fistula not is use since october 08, 2006 - ANESTHESIA Hx Anesthesia: Yes Hx Anesthesia Reactions: No Hx Malignant Hyperthermia: No Meds Allergies/Adverse Reactions: Allergies Allergy/AdvReac Type Severity Reaction Status Date / Time No Known Allergies Allergy Verified 09/11/17 16:07 Results - Vital Signs Recent Vital Signs: Last Vital Signs Temp 98.1 F 09/11/17 21:15 Pulse 63 09/11/17 21:15 Resp 17 09/11/17 21:15 BP 140/61 09/11/17 21:15 Pulse Ox 100 09/11/17 19:16 - Labs Result Diagrams: 09/11/17 17:15 09/11/17 17:15 Assessment & Plan - Assessment and Plan (Free Text) Assessment: Anemia Chronic kidney disease Polycystic kidney disease s/p renal transplant 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 Type and cross and transfuse packed red blood cells. continue to monitor hemoglobin and hematocrit. Check iron levels and TIBC. Will consult Dr. Leigh for anemia and thrombocytopenia. Review of previous admission shows that patient's platelet level was normal about one month ago.
[2017-09-11 22:47] LABS: IRON 54 ug/dL (45-180)
[2017-09-11] MEDS ORDERED: Dextrose 50% SYRINGE Inj (50 ml) IVP ONE (22:48)
[2017-09-11 22:57] LABS: % IRON SATURATION 18 % (20-55); TOTAL IRON BINDING CAPACITY 306 ug/dL (261-462)
--- NOTE | 2017-09-12 02:50 | CP.PCM.PN ---
Subjective - Date & Time of Evaluation Date of Evaluation: 09/12/17 Time of Evaluation: 02:49 - Subjective Subjective: Patient was seen at bedside. Because of FSBS of 55 mg %. One ampoule of 50 % D50 was given. FSBS was 177 mg % at 11:10PM . FSBS was 49 mg% at 5:50 AM, another ampoule of 50% D50 was given. FSBS wsa 130 mg % at 6.15AM. He is asymptomatic. Medical record was reviewed. 66 year old male is scheduled for AAA repair next week. Has PMH of polycystic kidney, AVR,anemia, DM ,S/P renal transplant, S/P AV fistula placement , AAA. Objective - Vital Signs/Intake and Output Vital Signs (last 24 hours): Temp Pulse Resp BP Pulse Ox 98.8 F 65 18 139/82 100 09/12/17 02:10 09/12/17 02:10 09/12/17 02:10 09/12/17 02:10 09/11/17 19:16 Intake and Output: 09/11/17 09/12/17 18:59 06:59 Intake Total 0 Balance 0 - Medications Medications: Current Medications Amlodipine Besylate (Norvasc) 10 mg PO DAILY [facility] Atorvastatin Calcium (Lipitor) 10 mg PO DIN [facility] Cinacalcet (Sensipar) 30 mg PO DAILY [facility] Clonidine HCl (Catapres) 0.3 mg PO BID [facility] Docusate Sodium (Colace) 100 mg PO TID [facility] Ezetimibe (Zetia) 10 mg PO DAILY [facility] Ferrous Gluconate (Fergon) 324 mg PO TID [facility] Furosemide (Lasix) 40 mg PO DAILY [facility] Glimepiride (Amaryl) 2 mg PO BRK [facility] Iron Sucrose 200 mg/ Sodium (Chloride) 110 mls @ 110 mls/hr IVPB DAILY [facility] Stop: 09/17/17 10:01 Mycophenolate Mofetil (Cellcept Cap) 500 mg PO BID [facility] Pantoprazole Sodium (Protonix Ec Tab) 40 mg PO 0600 [facility] Prednisone (Prednisone Tab) 5 mg PO DAILY [facility] Tacrolimus (Prograf Cap) 1 mg PO QPM [facility] Tacrolimus (Prograf Cap) 2 mg PO QAM [facility] - Labs Labs: PT 11.2 SECONDS (9.4-12.5) 09/11/17 17:15 INR 0.98 (0.93-1.08) 09/11/17 17:15 - Constitutional Appears: Well, No Acute Distress - Head Exam Head Exam: ATRAUMATIC, NORMAL INSPECTION, NORMOCEPHALIC - Eye Exam Eye Exam: Normal appearance - ENT Exam ENT Exam: Normal External Ear Exam - Neck Exam Neck Exam: Normal Inspection - Respiratory Exam Respiratory Exam: NORMAL BREATHING PATTERN - Cardiovascular Exam Cardiovascular Exam: absent: JVD - GI/Abdominal Exam GI & Abdominal Exam: absent: Distended - Rectal Exam Rectal Exam: Deferred - Exam Additional comments: Deferred. - Extremities Exam Extremities Exam: Normal Inspection - Back Exam Back Exam: NORMAL INSPECTION - Neurological Exam Neurological Exam: Alert, Awake - Psychiatric Exam Psychiatric exam: Normal Affect, Normal Mood - Skin Skin Exam: Normal Color Assessment and Plan - Assessment and Plan (Free Text) Assessment: Hypoglycemia. DM II. A/P AVR. Anemia. Polycystic kidney. S/P renal transplant.
[2017-09-12] MEDS ORDERED: Dextrose 50% SYRINGE Inj (50 ml) IVP STA (05:57)
[2017-09-12 07:12] LABS: BASO # 0.02 K/mm3 (0.0-2.0); BASO % 0.4 % (0.0-3.0); EOS # 0.2 (0.0-0.7); EOS % 4.7 % (1.5-5.0); GRAN # 3.55 (1.4-6.5); GRAN % 68.7 % (50.0-68.0); HEMOGLOBIN 7.9 g/dL (14.0-18.0); LYMPH # 0.7 (1.2-3.4); LYMPH % 13.4 % (22.0-35.0); MEAN CELL VOLUME 80.8 fl (80.0-105.0); MEAN CORPUSCULAR HEMOGLOBIN 24.8 pg (25.0-35.0); MEAN CORPUSCULAR HGB CONC 30.7 g/dl (31.0-37.0); MEAN PLATELET VOLUME 10.5 fl (7.0-11.0); MONO # 0.7 (0.1-0.6); MONO % 12.8 % (1.0-6.0); RBC 3.18 10^6/uL (3.5-6.1); WHITE BLOOD COUNT 5.2 10^3/ul (4.5-11.0)
[2017-09-12 07:19] LABS: ALB/GLOB RATIO 1.2 (1.1-1.8); ALBUMIN 3.2 g/dL (3.0-4.8); CALCIUM 8.1 mg/dL (8.4-10.5)
[2017-09-12 08:36] LABS: RED CELL DISTRIBUTION WIDTH 16.8 % (11.5-14.5)
[2017-09-12 12:50] LABS: FERRITIN 63.1 ng/mL
[2017-09-12 13:21] LABS: FOLATE 6.7 ng/mL
--- NOTE | 2017-09-12 13:52 | PN ---
DATE: LOCALOCATION: The patient is [facility] in [place]. SUBJECTIVE: The patient was admitted to the hospital for low hemoglobin. The patient had no acute symptoms; however, the patient is chronic renal patient with history of past renal transplant. The patient also has a history of aortic valve disease, has had aortic valve replaced in the past. The patient has history of abdominal aortic aneurysm, which is pending surgery next week. The patient's past history also consists of diabetes mellitus. He states that the diabetes after the patient was put on steroids for immunosuppression with left renal transplant. PHYSICAL EXAMINATION: VITAL SIGNS: The patient's vital signs this morning, the pulse is 66, blood pressure 140/83, respirations are 18, O2 sat is 97% on room air. HEENT: The patient's head is normocephalic. LUNGS: Clear. HEART: Normal sinus rhythm. S1, S2 present. ABDOMEN: Soft. No masses. CENTRAL NERVOUS SYSTEM: He is conscious, rational, and oriented. No focal deficits. LABORATORY DATA: The patient's lab work shows that hemoglobin is 7.9 today after 2 units of blood yesterday. The patient's chemistry shows that his blood sugar is 130 to 100. His other chemical parameters seem to be abnormal as far as the kidney functions are concerned. BUN is 49, creatinine is 3.3, GFR is above 23. The patient will receive 2 more units of blood and then the patient can be discharged. The patient will have to follow up with the surgeon who is pending to do the abdominal aortic aneurysm next Saturday. The patient's blood work will be reviewed after the second set of transfusion. MEDICATIONS: Consists of Amaryl 2 mg daily. The patient is on clonidine 0.3 mg b.i.d. for blood pressure. The patient is on mofetil. The patient is on Colace, ferrous gluconate. The patient is on Lasix 40 mg daily, Lipitor 10 mg daily, amlodipine 10 mg daily, prednisone 5 mg daily. The patient is on (tacrolimus) Prograf 2 mg p.o. daily once in the morning and 1 mg p.o. daily in the evening. The patient also is getting pantoprazole 40 mg daily. The patient gets Sensipar for renal insufficiency with hyperphosphatemia, Zetia 10 mg daily also. The patient is on a renal diet. He seemed to be comfortable after the transfusions are completed. The patient will be evaluated with CBC and then the patient will be discharged and he is advised to follow up with his physician at [facility] for the established date for his surgery. Sally Herrera MD
[2017-09-12] MEDS: Pantoprazole 40 mg EC Tab PO SCH (14:34)
[2017-09-12 17:03] VITALS: O2SAT 98
--- NOTE | 2017-09-12 17:11 | CP.PCM.CON ---
History of Present Illness - History of Present Illness History of Present Illness: 66 year old male with a history of of polycystic kidney disease complicated by ESRD s/p renal transplant, CKD, AAA for surgical repair next week, chronic anemia on intermittent iron, admitted with anemia. The patient was found to have a hgb of 6 and told to report to the hospital. In the ER, his hgb was found to be 7.1 and he is s/p PRBC transfusion. He notes to chronic fatigue which has been slowly increasing. He does admit to black stools but notes this may be from his iron supplementation. He is awaiting endoscopy once he completes his AAA repair. Past medical history: polycystic kidney disease, renal transplant, CKD, AAA, anemia Past surgical history: Renal transplant, Aortic valve replacement Family history: Denies hematologic and oncologic problems Social history: Denies tobacco, alcohol, and illicit drug use. Allergies: NKA Review of systems: All remaining review of systems including HEENT, cardiovascular, respiratory, gastrointestinal, genitourinary, musculoskeletal, dermatologic, neurologic, and psychiatric are negative unless mentioned in the HPI. Past Patient History - Infectious Disease Hx of Infectious Diseases: None - Past Medical History & Family History Past Medical History?: Yes - Past Social History Smoking Status: Former Smoker - CARDIAC Hx Cardiac Disorders: Yes (CAD) Hx Hypertension: Yes Other/Comment: Aortic Valve Replacement, aortic abdominal aneurysm - PULMONARY Hx Respiratory Disorders: No - NEUROLOGICAL Hx Neurological Disorder: No - HEENT Hx HEENT Problems: Yes (wears glasses) - RENAL Hx Chronic Kidney Disease: Yes Hx Dialysis: Yes (left arm fistula) Other/Comment: Kidney transplant , last dialysis oct 08 2006 - ENDOCRINE/METABOLIC Hx Endocrine Disorders: Yes Hx Diabetes Mellitus Type 2: Yes - HEMATOLOGICAL/ONCOLOGICAL Hx Blood Disorders: Yes (blood transfusions) Hx Anemia: Yes (iron deficiency) - INTEGUMENTARY Hx Dermatological Problems: Yes Other/Comment: multiple skin discolorations ble - MUSCULOSKELETAL/RHEUMATOLOGICAL Hx Musculoskeletal Disorders: No Hx Falls: No - GASTROINTESTINAL Hx Gastrointestinal Disorders: Yes Other/Comment: AAA - GENITOURINARY/GYNECOLOGICAL Hx Genitourinary Disorders: Yes Other/Comment: bilateral inguinal hernias (repaired) - PSYCHIATRIC Hx Psychophysiologic Disorder: No - SURGICAL HISTORY Hx Kidney Transplant: Yes (last hd oct 08 2006) Other/Comment: Aortic valve replacement, left forearm fistula not is use since october 08, 2006 - ANESTHESIA Hx Anesthesia: Yes Hx Anesthesia Reactions: No Hx Malignant Hyperthermia: No Meds Allergies/Adverse Reactions: Allergies Allergy/AdvReac Type Severity Reaction Status Date / Time No Known Allergies Allergy Verified 09/11/17 16:07 - Medications Medications: Current Medications Amlodipine Besylate (Norvasc) 10 mg PO DAILY [facility] Last Admin: 09/12/17 10:25 Dose: 10 mg Atorvastatin Calcium (Lipitor) 10 mg PO DIN [facility] Cinacalcet (Sensipar) 30 mg PO DAILY [facility] Last Admin: 09/12/17 10:25 Dose: 30 mg Clonidine HCl (Catapres) 0.3 mg PO BID [facility] Last Admin: 09/12/17 10:25 Dose: 0.3 mg Docusate Sodium (Colace) 100 mg PO TID [facility] Last Admin: 09/12/17 14:32 Dose: Not Given Ezetimibe (Zetia) 10 mg PO DAILY [facility] Last Admin: 09/12/17 10:26 Dose: 10 mg Ferrous Gluconate (Fergon) 324 mg PO TID [facility] Last Admin: 09/12/17 14:33 Dose: 324 mg Furosemide (Lasix) 40 mg PO DAILY [facility] Last Admin: 09/12/17 10:26 Dose: 40 mg Glimepiride (Amaryl) 2 mg PO BRK [facility] Last Admin: 09/12/17 12:37 Dose: Not Given Iron Sucrose 200 mg/ Sodium (Chloride) 110 mls @ 110 mls/hr IVPB DAILY [facility] Stop: 09/17/17 10:01 Last Admin: 09/12/17 10:06 Dose: 110 mls/hr Mycophenolate Mofetil (Cellcept Cap) 500 mg PO BID [facility] Last Admin: 09/12/17 10:26 Dose: 500 mg Pantoprazole Sodium (Protonix Ec Tab) 40 mg PO 0600 [facility] Last Admin: 09/12/17 14:34 Dose: 40 mg Prednisone (Prednisone Tab) 5 mg PO DAILY [facility] Last Admin: 09/12/17 10:25 Dose: 5 mg Tacrolimus (Prograf Cap) 1 mg PO QPM [facility] Tacrolimus (Prograf Cap) 2 mg PO QAM [facility] Last Admin: 09/12/17 10:26 Dose: 2 mg Physical Exam - Head Exam Head Exam: ATRAUMATIC - Eye Exam Eye Exam: Normal appearance - ENT Exam ENT Exam: Mucous Membranes Dry - Respiratory Exam Respiratory Exam: NORMAL BREATHING PATTERN - Cardiovascular Exam Cardiovascular Exam: +S1, +S2 - GI/Abdominal Exam GI & Abdominal Exam: Normal Bowel Sounds - Extremities Exam Extremities exam: Positive for: normal inspection - Neurological Exam Neurological exam: Oriented x3 - Psychiatric Exam Psychiatric exam: Normal Affect, Normal Mood - Skin Skin Exam: Warm Results - Vital Signs Recent Vital Signs: Last Vital Signs Temp 98.7 F 09/12/17 16:09 Pulse 68 09/12/17 16:09 Resp 18 09/12/17 16:09 BP 143/83 09/12/17 16:09 Pulse Ox 97 09/12/17 06:00 - Labs Result Diagrams: 09/12/17 06:30 09/12/17 06:30 Labs: Laboratory Results - last 24 hr 09/11/17 09/11/17 09/12/17 22:35 23:09 05:51 WBC RBC Hgb Hct MCV MCH MCHC RDW Plt Count MPV Gran % Lymph % (Auto) Petroleum % (Auto) Eos % (Auto) Baso % (Auto) Gran # Lymph # (Auto) Petroleum # (Auto) Eos # (Auto) Baso # (Auto) Retic Count Sodium Potassium Chloride Carbon Dioxide Anion Gap BUN Creatinine Est GFR ( Amer) Est GFR (Non-Af Amer) POC Glucose (mg/dL) 55 L 177 H 49 L Random Glucose Calcium Ferritin Total Bilirubin AST ALT Alkaline Phosphatase Total Protein Albumin Globulin Albumin/Globulin Ratio Vitamin B12 Folate 09/12/17 09/12/17 09/12/17 06:06 06:30 06:30 WBC 5.2 RBC 3.18 L Hgb 7.9 L Hct 25.7 L MCV 80.8 MCH 24.8 L MCHC 30.7 L RDW 16.8 H Plt Count 167 MPV 10.5 Gran % 68.7 H Lymph % (Auto) 13.4 L Petroleum % (Auto) 12.8 H Eos % (Auto) 4.7 Baso % (Auto) 0.4 Gran # 3.55 Lymph # (Auto) 0.7 L Petroleum # (Auto) 0.7 H Eos # (Auto) 0.2 Baso # (Auto) 0.02 Retic Count Sodium 143 Potassium 4.9 Chloride 112 H Carbon Dioxide 21 Anion Gap 14 BUN 49 H Creatinine 3.3 H Est GFR ( Amer) 23 Est GFR (Non-Af Amer) 19 POC Glucose (mg/dL) 130 H Random Glucose 103 Calcium 8.1 L Ferritin 63.1 Total Bilirubin 0.2 AST 42 ALT 33 Alkaline Phosphatase 74 Total Protein 5.9 Albumin 3.2 Globulin 2.7 Albumin/Globulin Ratio 1.2 Vitamin B12 749 Folate 6.7 09/12/17 09/12/17 09/12/17 06:30 06:54 11:20 WBC RBC Hgb Hct MCV MCH MCHC RDW Plt Count MPV Gran % Lymph % (Auto) Petroleum % (Auto) Eos % (Auto) Baso % (Auto) Gran # Lymph # (Auto) Petroleum # (Auto) Eos # (Auto) Baso # (Auto) Retic Count 2.25 H Sodium Potassium Chloride Carbon Dioxide Anion Gap BUN Creatinine Est GFR ( Amer) Est GFR (Non-Af Amer) POC Glucose (mg/dL) 100 68 Random Glucose Calcium Ferritin Total Bilirubin AST ALT Alkaline Phosphatase Total Protein Albumin Globulin Albumin/Globulin Ratio Vitamin B12 Folate 09/12/17 16:20 WBC RBC Hgb Hct MCV MCH MCHC RDW Plt Count MPV Gran % Lymph % (Auto) Petroleum % (Auto) Eos % (Auto) Baso % (Auto) Gran # Lymph # (Auto) Petroleum # (Auto) Eos # (Auto) Baso # (Auto) Retic Count Sodium Potassium Chloride Carbon Dioxide Anion Gap BUN Creatinine Est GFR ( Amer) Est GFR (Non-Af Amer) POC Glucose (mg/dL) 68 Random Glucose Calcium Ferritin Total Bilirubin AST ALT Alkaline Phosphatase Total Protein Albumin Globulin Albumin/Globulin Ratio Vitamin B12 Folate Assessment & Plan (1) Anemia Assessment and Plan: iron deficiency anemia and anemia of CKD element of bone marrow suppression from immunosuppresion medication agree with transfusion support will start on IV iron and give a dose of erythropoietin Thank you for this interesting consult. Status: Acute
[2017-09-12] MEDS ORDERED: Darbepoetin Alfa 40 mcg/ml Inj SC ONE (18:01)
[2017-09-13 06:53] VITALS: PULSE 82
[2017-09-13 07:25] LABS: BASO # 0.02 K/mm3 (0.0-2.0); BASO % 0.4 % (0.0-3.0); EOS # 0.2 (0.0-0.7); EOS % 3.4 % (1.5-5.0); GRAN # 3.89 (1.4-6.5); GRAN % 73.9 % (50.0-68.0); HEMOGLOBIN 10.9 g/dL (14.0-18.0); LYMPH # 0.5 (1.2-3.4); LYMPH % 9.9 % (22.0-35.0); MEAN CELL VOLUME 81.8 fl (80.0-105.0); MEAN CORPUSCULAR HEMOGLOBIN 25.7 pg (25.0-35.0); MEAN CORPUSCULAR HGB CONC 31.4 g/dl (31.0-37.0); MONO # 0.7 (0.1-0.6); MONO % 12.4 % (1.0-6.0); PLATELET COUNT 129 10^3/uL (120.0-450.0); RBC 4.24 10^6/uL (3.5-6.1); RED CELL DISTRIBUTION WIDTH 16.6 % (11.5-14.5); WHITE BLOOD COUNT 5.3 10^3/ul (4.5-11.0)
[2017-09-13 07:45] LABS: ALB/GLOB RATIO 1.2 (1.1-1.8); ALBUMIN 3.4 g/dL (3.0-4.8); CALCIUM 8.7 mg/dL (8.4-10.5)
--- NOTE | 2017-09-13 08:06 | CP.PCM.PN ---
Subjective - Date & Time of Evaluation Date of Evaluation: 09/13/17 Time of Evaluation: 07:30 - Subjective Subjective: (covering for Dr. Knox) Patient is seen this morning. He is feeling much better. Objective - Vital Signs/Intake and Output Vital Signs (last 24 hours): Temp Pulse Resp BP Pulse Ox 98.1 F 82 18 168/93 H 98 09/12/17 22:00 09/13/17 06:52 09/12/17 22:00 09/13/17 06:52 09/12/17 22:00 Intake and Output: 09/13/17 09/13/17 06:59 18:59 Intake Total 1775 Output Total 351 Balance 1424 - Medications Medications: Current Medications Amlodipine Besylate (Norvasc) 10 mg PO DAILY [facility] Last Admin: 09/12/17 10:25 Dose: 10 mg Atorvastatin Calcium (Lipitor) 10 mg PO DIN [facility] Last Admin: 09/12/17 18:02 Dose: 10 mg Cinacalcet (Sensipar) 30 mg PO DAILY [facility] Last Admin: 09/12/17 10:25 Dose: 30 mg Clonidine HCl (Catapres) 0.3 mg PO BID [facility] Last Admin: 09/13/17 06:52 Dose: 0.3 mg Docusate Sodium (Colace) 100 mg PO TID [facility] Last Admin: 09/12/17 18:03 Dose: Not Given Ezetimibe (Zetia) 10 mg PO DAILY [facility] Last Admin: 09/12/17 10:26 Dose: 10 mg Ferrous Gluconate (Fergon) 324 mg PO TID [facility] Last Admin: 09/12/17 18:03 Dose: 324 mg Furosemide (Lasix) 40 mg PO DAILY [facility] Last Admin: 09/12/17 10:26 Dose: 40 mg Glimepiride (Amaryl) 2 mg PO BRK [facility] Last Admin: 09/12/17 12:37 Dose: Not Given Iron Sucrose 200 mg/ Sodium (Chloride) 110 mls @ 110 mls/hr IVPB DAILY [facility] Stop: 09/17/17 10:01 Last Admin: 09/12/17 10:06 Dose: 110 mls/hr Mycophenolate Mofetil (Cellcept Cap) 500 mg PO BID [facility] Last Admin: 09/12/17 18:02 Dose: 500 mg Pantoprazole Sodium (Protonix Ec Tab) 40 mg PO 0600 [facility] Last Admin: 09/12/17 14:34 Dose: 40 mg Prednisone (Prednisone Tab) 5 mg PO DAILY [facility] Last Admin: 09/12/17 10:25 Dose: 5 mg Tacrolimus (Prograf Cap) 1 mg PO QPM [facility] Last Admin: 09/12/17 18:03 Dose: 1 mg Tacrolimus (Prograf Cap) 2 mg PO QAM [facility] Last Admin: 09/12/17 10:26 Dose: 2 mg - Labs Labs: 09/13/17 06:30 09/13/17 06:30 PT 11.2 SECONDS (9.4-12.5) 09/11/17 17:15 INR 0.98 (0.93-1.08) 09/11/17 17:15 - Constitutional Appears: No Acute Distress - Head Exam Head Exam: ATRAUMATIC, NORMOCEPHALIC - Respiratory Exam Respiratory Exam: Clear to Ausculation Bilateral, NORMAL BREATHING PATTERN - Cardiovascular Exam Cardiovascular Exam: +S1, +S2 - GI/Abdominal Exam GI & Abdominal Exam: Soft, Normal Bowel Sounds. absent: Tenderness - Neurological Exam Neurological Exam: Alert, Awake, Oriented x3 Assessment and Plan - Assessment and Plan (Free Text) Assessment: Symptomatic Anemia Polycystic kidney disease s/p renal transplant H/O AVR Abdominal Aortic Aneurysm Secondary Diabetes Plan: Patient is seen this morning and he is feeling better. His hemoglobin is now 10.9 after 4 units red blood cell transfusion. He has been seen by hematology, Dr. Leigh and given a dose of Aranesp and an iron infusion yesterday. Today, he will have another iron infusion. After iron infusion, he will go home. He will continue his home medications. Patient is scheduled for AAA repair next week at [facility]. After surgery, he will have endoscopy/colonoscopy. He will followup with Dr. Knox.
[2017-09-13 08:37] VITALS: RESP 16; TEMP 97.2
[2017-09-13] MEDS: Pantoprazole 40 mg EC Tab PO SCH (09:53)
[2017-09-13 10:02] VITALS: BP 149/86
--- NOTE | 2017-09-13 11:57 | CP.PCM.PN ---
Subjective - Date & Time of Evaluation Date of Evaluation: 09/13/17 Time of Evaluation: 11:30 - Subjective Subjective: No complaints. Objective - Vital Signs/Intake and Output Vital Signs (last 24 hours): Temp Pulse Resp BP Pulse Ox 97.2 F L 82 16 149/86 98 09/13/17 06:00 09/13/17 06:52 09/13/17 06:00 09/13/17 09:53 09/13/17 06:00 Intake and Output: 09/13/17 09/13/17 06:59 18:59 Intake Total 1775 Output Total 351 Balance 1424 - Medications Medications: Current Medications Amlodipine Besylate (Norvasc) 10 mg PO DAILY [facility] Last Admin: 09/13/17 09:53 Dose: 10 mg Atorvastatin Calcium (Lipitor) 10 mg PO DIN [facility] Last Admin: 09/12/17 18:02 Dose: 10 mg Cinacalcet (Sensipar) 30 mg PO DAILY [facility] Last Admin: 09/13/17 09:52 Dose: 30 mg Clonidine HCl (Catapres) 0.3 mg PO BID [facility] Last Admin: 09/13/17 10:02 Dose: Not Given Docusate Sodium (Colace) 100 mg PO TID [facility] Last Admin: 09/12/17 18:03 Dose: Not Given Ezetimibe (Zetia) 10 mg PO DAILY [facility] Last Admin: 09/13/17 09:53 Dose: 10 mg Ferrous Gluconate (Fergon) 324 mg PO TID [facility] Last Admin: 09/13/17 09:53 Dose: 324 mg Furosemide (Lasix) 40 mg PO DAILY [facility] Last Admin: 09/13/17 09:53 Dose: 40 mg Glimepiride (Amaryl) 2 mg PO BRK [facility] Last Admin: 09/13/17 11:25 Dose: Not Given Iron Sucrose 200 mg/ Sodium (Chloride) 110 mls @ 110 mls/hr IVPB DAILY [facility] Stop: 09/17/17 10:01 Last Admin: 09/13/17 09:52 Dose: 110 mls/hr Mycophenolate Mofetil (Cellcept Cap) 500 mg PO BID [facility] Last Admin: 09/13/17 09:52 Dose: 500 mg Pantoprazole Sodium (Protonix Ec Tab) 40 mg PO 0600 [facility] Last Admin: 09/13/17 09:53 Dose: 40 mg Prednisone (Prednisone Tab) 5 mg PO DAILY [facility] Last Admin: 09/13/17 09:53 Dose: 5 mg Tacrolimus (Prograf Cap) 1 mg PO QPM [facility] Last Admin: 09/12/17 18:03 Dose: 1 mg Tacrolimus (Prograf Cap) 2 mg PO QAM [facility] Last Admin: 09/13/17 09:52 Dose: 2 mg - Labs Labs: 09/13/17 06:30 09/13/17 06:30 PT 11.2 SECONDS (9.4-12.5) 09/11/17 17:15 INR 0.98 (0.93-1.08) 09/11/17 17:15 - Head Exam Head Exam: ATRAUMATIC - Eye Exam Eye Exam: Normal appearance - ENT Exam ENT Exam: Mucous Membranes Dry - Respiratory Exam Respiratory Exam: NORMAL BREATHING PATTERN - Cardiovascular Exam Cardiovascular Exam: +S1, +S2 - GI/Abdominal Exam GI & Abdominal Exam: Normal Bowel Sounds Assessment and Plan (1) Anemia Assessment & Plan: iron deficiency anemia, anemia of CKD on IV iron, s/p 1 dose of Aranesp element of bone marrow suppression from immunosuppression s/p PRBC transfusion Status: Acute (2) Thrombocytopenia Assessment & Plan: mild may be dilutional effect from transfusions bone marrow suppression from immunosuppression Status: Acute
--- NOTE | 2017-09-13 12:48 | PN ---
DATE: SUBJECTIVE: The patient is in [facility] in [place], room 565, bed 2. The patient was admitted to the hospital via the Emergency Room for very low hemoglobin level. The patient has significant past history of aortic valve surgery, coronary artery disease. The patient has a history of diabetes mellitus, hypertension, had renal transplant done some years ago. The patient is currently waiting to have AAA repaired, which measures about 8 cm, it is significantly enlarged in the abdominal site. PHYSICAL EXAMINATION VITAL SIGNS: This morning, the pulse is 82, blood pressure 168/93, the patient's respirations are 18, temperature 98.1. HEENT: Head is normocephalic. LUNGS: Clear. HEART: Normal sinus rhythm. S1 and S2 present. The patient has murmur, but his aortic valve has been replaced in the past. ABDOMEN: Soft. Liver and spleen not palpable. The patient has evidence of previous surgery to the kidney. CENTRAL NERVOUS SYSTEM: He is conscious, rational, and oriented and he is well aware of the fact that he is going to have surgery next Saturday on his aorta. LABORATORY DATA: His hemoglobin was low and the patient got four units of blood in the last two days and his current blood hemoglobin level today is 10.9. The patient's white count is within normal limits, platelet count 129,000. The patient's chemistry is within normal range, blood sugar is 93. The patient will be discharged today and will follow up at [facility] where the patient is going to have the care for his aneurysm of the aorta. This patient is Dr. Knox's patient and I am covering for him. We will send a copy of this information to Dr. Knox's service; when he returns, he will able to . Sally Herrera MD
[2017-09-16 19:06] LABS: ALBUMIN (PEP) 3.3 g/dL (3.8-4.8); ALPHA-1-GLOBULIN (PEP) 0.5 g/dL (0.2-0.3)
== END 2017-09-13 15:39 | disposition home or self-care (01) | DRG 812 ==
LOC: ED 15:29 → ERH 18:49 → 5RNO 21:45
PROVIDERS: ADMIT Internal Medicine; ATTEND Internal Medicine
PROC: 30233N1 Transfusion of Nonautologous Red Blood Cells into Peripheral Vein, Percutaneous Approach (ICD-10-PCS; principal; 2017-09-11)
DX: D50.9 Iron deficiency anemia, unspecified (principal); Q61.3 Polycystic kidney, unspecified; Z94.0 Kidney transplant status; I71.4 Abdominal aortic aneurysm, without rupture; D63.1 Anemia in chronic kidney disease; I12.9 Hypertensive chronic kidney disease with stage 1 through stage 4 chronic kidney disease, or unspecified chronic kidney disease; N18.9 Chronic kidney disease, unspecified; E09.649 Drug or chemical induced diabetes mellitus with hypoglycemia without coma; T38.0X5A Adverse effect of glucocorticoids and synthetic analogues, initial encounter; D69.6 Thrombocytopenia, unspecified; I25.10 Atherosclerotic heart disease of native coronary artery without angina pectoris; Z79.4 Long term (current) use of insulin; Z95.2 Presence of prosthetic heart valve; Z79.899 Other long term (current) drug therapy; Z87.891 Personal history of nicotine dependence

== ENCOUNTER 2018-03-03 08:48 | Inpatient (IN) | payer MEDICARE, OTHER ==
[2018-03-03 09:26] VITALS: BMI 16.2
--- NOTE | 2018-03-03 09:28 | ED PDOC ---
Arrival/HPI - General Time Seen by Provider: 03/03/18 09:13 Historian: Patient - History of Present Illness Narrative History of Present Illness (Text): 03/03/18 09:19 67yo male with pmhx of PCKD, anemia who present with complaint of generalized malaise, BURNS, decreased appetite for the past one week. States this symptoms are his usually symptoms when he becomes symptomatic from his anemia. Reports that his last blood transfusion was 3weeks ago (2units). He gets iron transfusion and Procrit from Dr. Leigh. States he has been dealing with anemia for the past two years and have had numerous test to find the cause,but couldn't get Colonoscopy because he have Aortic aneurysm. He denies chest pain, abdominal pain, nausea, vomiting, dizziness, any other complaint. Past Medical History - Provider Review Nursing Documentation Reviewed: Yes - Infectious Disease Hx of Infectious Diseases: None - Cardiac Hx Cardiac Disorders: Yes (CAD) Hx Hypertension: Yes Other/Comment: Aortic Valve Replacement, aortic abdominal aneurysm - Pulmonary Hx Respiratory Disorders: No - Neurological Hx Neurological Disorder: No - HEENT Hx HEENT Disorder: Yes (wears glasses) - Renal Hx Renal Disorder: Yes Hx Dialysis: Yes (left arm fistula) Other/Comment: Kidney transplant , last dialysis oct 08 2006 - Endocrine/Metabolic Hx Endocrine Disorders: Yes Hx Diabetes Mellitus Type 2: Yes - Hematological/Oncological Hx Blood Disorders: Yes (blood transfusions) Hx Anemia: Yes (iron deficiency) - Integumentary Hx Dermatological Disorder: Yes Other/Comment: multiple skin discolorations ble - Musculoskeletal/Rheumatological Hx Musculoskeletal Disorders: No - Gastrointestinal Hx Gastrointestinal Disorders: Yes Other/Comment: AAA - Genitourinary/Gynecological Hx Genitourinary Disorders: Yes Other/Comment: bilateral inguinal hernias (repaired) - Psychiatric Hx Psychophysiologic Disorder: No Hx Substance Use: No - Surgical History Hx Kidney Transplant: Yes (last hd oct 08 2006) Other/Comment: Aortic valve replacement, left forearm fistula not is use since october 08, 2006 - Anesthesia Hx Anesthesia: Yes Hx Anesthesia Reactions: No Hx Malignant Hyperthermia: No Family/Social History - Physician Review Nursing Documentation Reviewed: Yes Family/Social History: Unknown Family HX Smoking Status: Former Smoker Hx Alcohol Use: No Hx Substance Use: No Allergies/Home Meds Allergies/Adverse Reactions: Allergies No Known Allergies Allergy (Verified 03/03/18 09:25) Home Medications: Home Meds Medication Instructions Recorded Confirmed Cyproheptadine [Periactin] 4 mg PO BID 03/03/18 03/03/18 amLODIPine [Norvasc] 10 mg PO BID 03/03/18 03/03/18 Review of Systems - Physician Review All systems were reviewed & negative as marked: Yes - Review of Systems Constitutional: Fatigue Eyes: Normal ENT: Normal Respiratory: SOB Cardiovascular: Normal Gastrointestinal: Appetite Changes. absent: Abdominal Pain, Constipation, D iarrhea, Nausea, Vomiting Genitourinary Male: Normal Musculoskeletal: Normal Skin: Normal Neurological: Normal Endocrine: Normal Hemo/Lymphatic: Normal Psychiatric: Normal Physical Exam Vital Signs Reviewed: Yes Vital Signs Temp Pulse Pulse Resp BP Pulse Ox 03/03/18 19:10 90 46 H 100 03/03/18 19:00 89 42 H 79/53 L 100 03/03/18 18:50 91 H 29 H 100 03/03/18 18:40 89 49 H 100 03/03/18 18:30 89 36 H 100 03/03/18 18:20 92 H 32 H 100 03/03/18 18:14 92 H 47 H 88/55 L 100 03/03/18 18:12 100 03/03/18 18:09 97.7 F 90 90 22 91/57 L 03/03/18 18:00 76 18 86/57 L 100 03/03/18 17:59 90 18 89/55 L 100 03/03/18 16:34 78 18 84/52 L 100 03/03/18 15:33 87 18 82/51 L 100 03/03/18 13:02 90 18 91/57 L 100 03/03/18 12:40 76 18 97/58 L 99 03/03/18 11:01 78 18 91/56 L 99 03/03/18 09:25 97.7 F 83 20 83/59 L 99 Temperature: Afebrile Blood Pressure: Hypotensive Pulse: Regular Respiratory Rate: Normal Appearance: Positive for: Non-Toxic, Comfortable, Cachectic, Other (Appears older than the stated age) Pain Distress: None Mental Status: Positive for: Alert and Oriented X 3 - Systems Exam Head: Present: Atraumatic, Normocephalic Pupils: Present: PERRL Extroacular Muscles: Present: EOMI Conjunctiva: Present: Normal Mouth: Present: Moist Mucous Membranes Neck: Present: Normal Range of Motion Respiratory/Chest: Present: Clear to Auscultation, Good Air Exchange, Decreased Breath Sounds (at the bases), Other. No: Respiratory Distress, Accessory Muscle Use, Wheezes, Rales, Retracting, Rhonchi Cardiovascular: Present: Regular Rate and Rhythm, Normal S1, S2. No: Murmurs Abdomen: No: Tenderness, Distention, Peritoneal Signs Back: Present: Normal Inspection Upper Extremity: Present: Normal Inspection, Other (Fistula noted on left arm. Pt states is not used. He is currently not on dialysis.). No: Cyanosis, Edema Lower Extremity: Present: Normal Inspection. No: Edema Neurological: Present: GCS=15, CN II-XII Intact, Speech Normal Skin: Present: Warm, Dry, Normal Color. No: Rashes Psychiatric: Present: Alert, Oriented x 3, Normal Insight, Normal Concentration Medical Decision Making ED Course and Treatment: 03/03/18 09:56 67yo male in ED for malaise, BURNS, decreased appetite x one week. Labs Type and screen EKG CXR will reassess 03/03/18 11:08 EKG NSR @85bpm. NSTEMI 03/03/18 11:11 PT's lab reviewed and h/h 8.8 was noted. His last hg was 10.9. Pt is hyponatremic, hyperkalemic and BUN/Cr is prominently elevated. His Kidney function is worse than it has been. PT will need emergent dialysis. This is probably causing the pt current symptom. Case was BRODIE Knox and he accepted pt to his service. He requested Dr. Durham, pt's automation architect consult and he was paged. All result and plan was DW the pt and he agreed. 03/03/18 20:10 IMPRESSION: Stable findings with respect to thoracic aorta. New small bilateral pleural effusions with associated compressive atelectasis. Stable infiltrate right upper lobe. Stable infrarenal abdominal aortic aneurysm. Mean axial diameter 8.3 cm. Cephalocaudal dimension 13.1 cm. 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 Stable polycystic kidney disease. Additional benign and/or incidental findings described above. Secondary to the CT finding, lab culture was ordered and pt was started on Rocephin and Doxy for CAP Result was BRODIE Knox and he was made aware. He requested that pt be admitted to ICU secondary to his hypotension. Case was DW the quality improvement specialist Dr. Murray. He saw pt in ED and accepted pt to the unit. - Critical Care Critical Care Minutes: 45 minutes - Lab Interpretations Lab Results: 03/03/18 10:20 03/03/18 10:20 Lab Results 03/03/18 11:00: Blood Type O POSITIVE, Antibody Screen Negative, BBK History Checked Patient has bt 03/03/18 10:20: NT-Pro-B Natriuret Pep [id number] H 03/03/18 10:20: Sodium 129 L, Potassium 5.3 H, Chloride 95 L, Carbon Dioxide 14 L, Anion Gap 25 H, BUN 115 H, Creatinine 7.4 H* D, Est GFR ( Amer) 9, Est GFR (Non-Af Amer) 7, Random Glucose 291 H, Calcium 6.5 L*, Magnesium 1.8, Total Bilirubin 0.3, AST 21, ALT 17, Alkaline Phosphatase 78, Total Protein 5.7 L, Albumin 3.1, Globulin 2.6, Albumin/Globulin Ratio 1.2 03/03/18 10:20: PT 12.8 H, INR 1.11, APTT 27.9 03/03/18 10:20: WBC 6.3, RBC 3.86, Hgb 8.8 L D, Hct 27.3 L, MCV 70.7 L D, MCH 22.8 L, MCHC 32.2, RDW 19.2 H, Plt Count 207, Gran % 84.3 H, Lymph % (Auto) 12.1 L, [place] % (Auto) 3.0, Eos % (Auto) 0.6 L, Baso % (Auto) 0.0, Gran # 5.30, Lymph # (Auto) 0.8 L, [place] # (Auto) 0.2, Eos # (Auto) 0.0, Baso # (Auto) 0.00, Neutrophils % (Manual) 85 H, Band Neutrophils % 1, Lymphocytes % (Manual) 9 L, Monocytes % (Manual) 3, Eosinophils % (Manual) 2, Platelet Evaluation Normal, Poikilocytosis (manual 2+, Anisocytosis (manual) 1+, Microcytosis (manual) 1+, [place] Cells Slight, Acanthocytes (Spur) Slight, Schistocytes Moderate - RAD Interpretation Radiology Orders: 03/03/18 11:11 CHEST PORTABLE [RAD] Stat - Medication Orders Current Medication Orders: Acetaminophen (Tylenol 325mg Tab) 650 mg PO Q6 PRN PRN Reason: TEMP>=99.5F Acetaminophen (Tylenol 650 Mg Supp) 650 mg RC Q6H PRN PRN Reason: TEMP>=99.5F Acetaminophen (Tylenol 650 Mg Supp) 650 mg RC Q6H PRN PRN Reason: Headache Acetaminophen (Tylenol 325mg Tab) 650 mg PO Q6H PRN PRN Reason: Headache Atorvastatin Calcium (Lipitor) 20 mg PO DIN [facility] Last Admin: 03/03/18 17:58 Dose: 20 mg Benzonatate (Tessalon Perles) 200 mg PO TID [facility] Calcitriol (Rocaltrol) 0.5 mcg PO DAILY [facility] Last Admin: 03/03/18 19:11 Dose: 0.5 mcg Calcium Carbonate (Oscal) 1,000 mg PO Q6 [facility] Last Admin: 03/03/18 19:11 Dose: 1,000 mg Cinacalcet (Sensipar) 30 mg PO DAILY [facility] Docusate Sodium (Colace) 100 mg PO TID [facility] Ezetimibe (Zetia) 10 mg PO DAILY [facility] Ferrous Gluconate (Fergon) 324 mg PO BID [facility] Last Admin: 03/03/18 19:12 Dose: 324 mg Hydrocortisone Sodium Succinate (Solu-Cortef) 50 mg IVP Q6H [facility] Sodium Bicarbonate 75 meq/ (Sodium Chloride) 1,075 mls @ 75 mls/hr IV .[id number] [facility] Stop: 03/04/18 16:24 Last Admin: 03/03/18 15:42 Dose: 75 mls/hr eMAR Start Stop Document 03/03/18 15:42 EQ (Rec: 03/03/18 15:42 EQ [id number]) Intravenous Solution Start Date 03/03/18 Start Time 15:42 Vancomycin HCl (Vancomycin 1gm) 1 gm in 250 mls @ 167 mls/hr IVPB Q12H [place] PRN Reason: Protocol Last Admin: 03/03/18 19:08 Dose: 167 mls/hr eMAR Start Stop Document 03/03/18 19:08 MDU (Rec: 09/24/18 19:08 [place] [facility] [id number] Intravenous Solution Start Date 03/03/18 Start Time 19:08 End Date 03/03/18 End time 20:38 Total Infusion Time 90 Piperacillin Sod/Tazobactam Sod (Zosyn 3.375 In Ns 100ml) 100 mls @ 200 mls/hr IVPB Q8 [place] PRN Reason: Protocol Stop: 03/04/18 06:29 Doxycycline Hyclate 100 mg/ (Sodium Chloride) 100 mls @ 100 mls/hr IVPB Q12 [place] PRN Reason: Protocol Insulin Human Lispro (Humalog Med) 0 units SC AC [place] PRN Reason: Protocol Last Admin: 03/03/18 17:58 Dose: 5 unit MAR Blood Glucose Document 03/03/18 17:58 EQ (Rec: 03/03/18 17:58 EQ [id number]) Blood Glucose Finger Stick Blood Glucose (70-120) 259 Subcutaneous Administrations Document 03/03/18 17:58 EQ (Rec: 03/03/18 17:58 EQ [id number]) Injection Site MAR Injection Site Right Deltoid Charges for Administration # of Subcutaneous Administrations 1 Levalbuterol HCl (Xopenex) 0.63 mg IH [id number] [place] Ondansetron HCl (Zofran Inj) 4 mg IVP Q4H PRN PRN Reason: Nausea/Vomiting Pantoprazole Sodium (Protonix Ec Tab) 40 mg PO DAILY [place] Pantoprazole Sodium (Protonix Ec Tab) 40 mg PO 0600 [facility] Polyethylene Glycol (Miralax) 17 gm PO BID [place] Tacrolimus (Prograf Cap) 1 mg PO QPM [place] Last Admin: 03/03/18 19:12 Dose: 1 mg Tacrolimus (Prograf Cap) 2 mg PO QAM [facility] Discontinued Medications Hydrocortisone Sodium Succinate (Solu-Cortef) 100 mg IVP STAT STA Stop: 03/03/18 18:11 Last Admin: 03/03/18 18:59 Dose: 100 mg IVP Administration Document 03/03/18 18:59 MDU (Rec: 03/03/18 18:59 [place] [facility] [id number] Charges for Administration # of IVP Administrations 1 Doxycycline Hyclate 100 mg/ (Sodium Chloride) 100 mls @ 100 mls/hr IVPB Q12 STA PRN Reason: Protocol Stop: 03/03/18 14:37 Last Admin: 03/03/18 15:42 Dose: 100 mls/hr eMAR Start Stop Document 03/03/18 15:42 EQ (Rec: 03/03/18 15:42 EQ [id number]) Intravenous Solution Start Date 03/03/18 Start Time 15:42 Ceftriaxone Sodium (Rocephin 1 Gram Ivpb) 1 gm in 100 mls @ 200 mls/hr IVPB STAT STA PRN Reason: Protocol Stop: 03/03/18 14:04 Last Admin: 03/03/18 14:37 Dose: 200 mls/hr eMAR Start Stop Document 03/03/18 14:37 EQ (Rec: 03/03/18 14:37 EQ [id number]) Intravenous Solution Start Date 03/03/18 Start Time 14:37 Sodium Chloride (Sodium Chloride 0.9%) 500 mls @ 999 mls/hr IV .Q31M STA Stop: 03/03/18 19:10 Morphine Sulfate (Morphine) 1 mg IVP ONCE ONE Stop: 03/03/18 18:51 Non-Formulary Medication (Humalog) 20 units SQ DAILY [place] Non-Formulary Medication (Pravastatin Sodium [Pravachol]) 40 mg PO DAILY [place] Non-Formulary Medication (Prednisone [Nga]) 5 mg PO DAILY [place] Pneumococcal Polyvalent Vaccine (Pneumovax 23 Vaccine) 0.5 ml IM .ONCE ONE Stop: 03/03/18 18:31 Disposition/Present on Arrival - Present on Arrival Any Indicators Present on Arrival: No History of DVT/PE: No History of Uncontrolled Diabetes: No Urinary Catheter: No History Surgical Site Infection Following: None - Disposition Have Diagnosis and Disposition been Completed?: Yes Diagnosis: Anemia, Chronic kidney disease (CKD), stage IV (severe), Hyponatremia, Acute hyperkalemia, Pneumonia, Pleural effusion Disposition: HOSPITALIZED Disposition Time: 11:05 Patient Plan: Admission Patient Problems: Current Active Problems Problem Status Onset Acute hyperkalemia Acute Anemia Acute Hyponatremia Acute Pleural effusion Acute Pneumonia Acute Chronic kidney disease (CKD), stage IV (severe) Chronic Condition: GUARDED
[2018-03-03 10:38] LABS: EOS % 0.6 % (1.5-5.0); GRAN % 84.3 % (50.0-68.0); HEMOGLOBIN 8.8 g/dL (14.0-18.0); LYMPH # 0.8 (1.2-3.4); LYMPH % 12.1 % (22.0-35.0); MEAN CELL VOLUME 70.7 fl (80.0-105.0); MEAN CORPUSCULAR HEMOGLOBIN 22.8 pg (25.0-35.0); MEAN CORPUSCULAR HGB CONC 32.2 g/dl (31.0-37.0); MONO # 0.2 (0.1-0.6); PLATELET COUNT 207 10^3/uL (120.0-450.0); RBC 3.86 10^6/uL (3.5-6.1); RED CELL DISTRIBUTION WIDTH 19.2 % (11.5-14.5); WHITE BLOOD COUNT 6.3 10^3/ul (4.5-11.0)
[2018-03-03 10:46] LABS: INR 1.11; PARTIAL THROMBOPLASTIN TIME 27.9 Seconds (25.1-36.5); PROTHROMBIN TIME 12.8 SECONDS (9.4-12.5)
[2018-03-03 10:57] LABS: ALB/GLOB RATIO 1.2 (1.1-1.8); ALBUMIN 3.1 g/dL (3.0-4.8); CALCIUM 6.5 mg/dL (8.4-10.5)
[2018-03-03 11:44] LABS: BAND 1 % (0-2); EOSINOPHIL 2 % (0.0-3.0); LYMPHOCYTE 9 % (22.0-35.0); MONOCYTE 3 % (1.0-6.0); NEUTROPHIL 85 % (50.0-70.0)
[2018-03-03 11:45] LABS: ACANTHROCYTES SLIGHT; ANISOCYTOSIS 1+; BURR CELLS SLIGHT; MICROCYTOSIS 1+; PLATELET ESTIMATE NORMAL (NORMAL); POIKILOCYTOSIS 2+
[2018-03-03 11:46] LABS: SCHISTOCYTES MODERATE
[2018-03-03] MEDS ORDERED: Iohexol 240 (50 ml) ONE (12:12)
--- NOTE | 2018-03-03 12:41 | RAD ---
Date of service: 03/03/2018 HISTORY: admission COMPARISON: 08/03/2017 FINDINGS: LUNGS: New left lower lobe infiltrate. PLEURA: Bilateral pleural effusions left larger than right. CARDIOVASCULAR: No radiographic findings to suggest acute or significant cardiovascular disease. Incidental Finding(s): Postoperative changes related to sternotomy. OSSEOUS STRUCTURES: No significant abnormalities. VISUALIZED UPPER ABDOMEN: Normal. OTHER FINDINGS: None. IMPRESSION: New, large left lower lobe infiltrate. Bilateral pleural effusions left larger than right.
--- NOTE | 2018-03-03 13:02 | CARD ---
APPROVED REPORT Date of service: 03/03/2018 EKG Measurement Heart [id number] <Conclusion> Normal sinus rhythm Left atrial enlargement Low voltage QRS limb leads Possible Inferior infarct, old Improved repolarization changes c/w prior ECG 08/02/17
[2018-03-03] MEDS ORDERED: cefTRIAXone 1 gm 1 GM/100 ML BAG IVPB STA (13:35)
--- NOTE | 2018-03-03 13:51 | US ---
Date of service: 03/03/2018 PROCEDURE: Ultrasound of the Kidneys HISTORY: tranplanted kidney failing COMPARISON: 02/16/2014.. TECHNIQUE: Sonogram of the kidneys. FINDINGS: RIGHT KIDNEY: Measures: 6.6 x 13.7 cm. Enlarged kidney, multiple cysts. No stone, solid mass lesion or hydronephrosis visualized. LEFT KIDNEY: Measures: 7.7 x 15.0 cm. Enlarged left kidney multiple cysts No stone, solid mass lesion or hydronephrosis visualized. TRANSPLANTED KIDNEY: Moderate hydronephrosis, new finding compared to the prior study. Transplant kidney measures 7.1 x 10.6 cm. IMPRESSION: New hydronephrosis transplanted kidney. Otherwise unremarkable. [place] kidneys display findings consistent with polycystic kidney disease. Similar findings identified the prior study
--- NOTE | 2018-03-03 14:30 | CT ---
Date of service: 03/03/2018 PROCEDURE: CT Chest, Abdomen and Pelvis without intravenous contrast HISTORY: h/o aortic aneurysm COMPARISON: 02/27/2017 CT thorax abdomen and pelvis. TECHNIQUE: Radiation dose: Total exam DLP = 297.98 mGy-cm. This CT exam was performed using one or more of the following dose reduction techniques: Automated exposure control, adjustment of the mA and/or kV according to patient size, and/or use of iterative reconstruction technique. FINDINGS: CT CHEST WITHOUT CONTRAST: LUNGS: Persistent infiltrate anterior segment right upper lobe the area of interest measures 1.6 x 1.8 cm not significantly changed. No additional pulmonary nodules or masses. Compressive atelectasis both lower lobes related to new small bilateral pleural effusions. MEDIASTINUM: Top-normal ascending thoracic aorta. Findings related to aortic valve replacement and proximal graft identified. These are stable. Stable dilatation of the descending aorta maximum diameter 3.9 x 4.3 cm. LYMPH NODES: Unremarkable. PLEURA: New, small bilateral pleural effusions left larger than right. BONES: Unremarkable. OTHER FINDINGS: Dilated fluid-filled thoracic esophagus. CT ABDOMEN AND PELVIS: LIVER: Stable hepatic cysts/masses. GALLBLADDER AND BILE DUCTS: Distended gallbladder without gallstones. PANCREAS: Unremarkable. No gross lesion or ductal dilatation. SPLEEN: Unremarkable. ADRENALS: Unremarkable. No mass. KIDNEYS AND URETERS: Stable findings consistent with polycystic kidney disease. VASCULATURE: Stable appearance, configuration of infrarenal abdominal aortic aneurysm 8.3 cm in diameter. 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 BOWEL: Diverticulosis without an acute inflammatory component or other associated pathologic process. APPENDIX: Normal appendix. PERITONEUM: Unremarkable. No free fluid. No free air. LYMPH NODES: Unremarkable. No enlarged lymph nodes. BLADDER: Unremarkable. REPRODUCTIVE: Unremarkable. BONES: No acute fracture. OTHER FINDINGS: Hydronephrosis affecting the transplanted kidney in the right renal fossa similar finding identified on the prior study. IMPRESSION: Stable findings with respect to thoracic aorta. New small bilateral pleural effusions with associated compressive atelectasis. Stable infiltrate right upper lobe. Stable infrarenal abdominal aortic aneurysm. Mean axial diameter 8.3 cm. Cephalocaudal dimension 13.1 cm. 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 Stable polycystic kidney disease. Additional benign and/or incidental findings described above.
[2018-03-03 14:31] LABS: VENOUS BLOOD GAS BASE EXCESS -11.1 mmol/L (0.0-2.0); VENOUS BLOOD GAS PO2 45 mm/Hg (30-55); VENOUS BLOOD PH 7.22 (7.32-7.43)
--- NOTE | 2018-03-03 16:24 | HP ---
CHIEF COMPLAINT: Presented with increased weakness. HISTORY OF PRESENT ILLNESS: The patient is a 67-year-old male, presented to the emergency room complaining of increased weakness, decreased p.o. intake with some shortness of breath. The patient apparently had a transfusion of PRBC done on 02/20/[address] Leigh. The patient presented to the emergency room with the above complaints. According to the ER medical staff, the patient complained of generalized weakness, fatigue, dyspnea on exertion, poor appetite for last 1 week. The patient states that despite his transfusion, his symptoms are getting worse. REVIEW OF SYSTEMS: The patient's 13-system review was pertinent positive for above. CODE STATUS: Full code. LIVING WILL ADVANCE DIRECTIVE: None. ALLERGIES: NONE. HEIGHT: 5 feet 9. WEIGHT: 110. BMI: 16. HOME MEDICATIONS: Prograf 2 mg a.m. and 1 mg p.m.; Bactrim DS Saturday, Saturday and Saturday; prednisone 5 mg daily; Pravachol 40 mg daily; Protonix 40 mg daily; CellCept 500 mg twice a day; metoprolol 100 mg twice a day; hydralazine 25 mg twice a day; Humalog 20 units daily with continuous pump; ferrous sulfate 324 twice a day; Zetia 10 mg daily; clonidine 0.3 twice a day; Sensipar 30 mg daily; Norvasc 5 mg b.i.d.; Lasix 40 mg daily. SOCIAL HISTORY: Former smoker. Denies drug use. Denies communicable transmissible disease. Denies any alcohol or substance abuse. FAMILY HISTORY: Not available at present. PAST MEDICAL HISTORY: The patient's past medical history is significant for aortic valve replacement, history of chronic anemia, history of arteriovenous malformation, history of chronic gastrointestinal bleeding, history of thoracic and abdominal aortic aneurysm, history of renal transplant, history of hyperlipidemia, history of hypertension, history of insulin-requiring diabetes mellitus, history of secondary hyperparathyroidism, history of prolonged iron-deficiency anemia, history of questionable poor compliance, history of multiple hospitalization to 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, history of multiple packed red blood cell transfusion, history of bilateral lower extremity venous stasis, history of chronic kidney disease, history of iron deficiency, history of left upper extremity AV fistula, history of hypertensive cardiovascular disease, history of pulmonary hypertension with right ventricular systolic pressure of 40 mmHg, history of moderate valvular aortic stenosis, history of mild tricuspid regurgitation, history of polycystic kidney disease, history of previously requiring hemodialysis, end-stage renal disease, history of congestive heart failure, history of allograft renal transplant, history of constipation,history of cachexia, history of failure to thrive. The patient's past medical history is also significant for poor compliance, history of aortic dissection, history of cadaveric kidney transplant, history of sepsis secondary to gram-negative bacilli bacteremia, history of systemic viral influenza, history of E. 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 PHYSICAL EXAMINATION: GENERAL: The patient was seen in stretcher #13. The patient is seen lying in the bed. The patient is comfortable, awake, responsive. Does not appear to be any distress. VITAL SIGNS: T-max 97; telemetry shows heart rate 78 and 83; blood pressure 83/59, 91/56; respirations 18; O2 sat 99%. The patient is seen lying in the stretcher. HEENT: Head examination normocephalic, atraumatic. HEENT examination shows pale conjunctivae. Anicteric sclerae. No oropharyngeal lesion. No neck rigidity. CHEST: Median sternotomy surgical scar. LUNGS: Shows decreased breath sound. No audible rales, crackles or wheezing. CARDIOVASCULAR: S1, S2. Positive systolic murmur, left sternal border, left second intercostal space, right second intercostal space. ABDOMEN: Shows slightly protuberant. Positive midline abdominal pulsation. GENITALIA: Male. EXTREMITY: Shows positive pitting edema of the lower extremity. Positive ankle swelling. MUSCULOSKELETAL: Shows a body mass index of 16.2. Gait examination is not tested. PSYCHIATRIC: Not applicable. DIAGNOSTIC DATA: Reviewed. EKG shows sinus rhythm with artifact low voltage in the limb leads. Chest x-ray was reviewed, which shows median sternotomy surgical scar. The patient was seen and evaluated in the emergency room by and the patient was advised to be admitted. The patient was immediately consulted with the cloud engagement partner, Dr. Wheeler by the ER staff for worsening renal failure and hypotension. IMPRESSION AND PLAN: 1. Severe symptomatic hypotension. 2. Severe symptomatic anemia with symptoms of fatigue, tiredness, shortness of breath and dyspnea on exertion. 3. Worsening renal failure with worsening chronic kidney disease. 4. Hyponatremia. 5. Hyperkalemia. 6. Anemia of chronic kidney disease with iron-deficiency anemia. 7. Granulocytosis. 8. Lymphocytopenia. 9. Hyponatremia. 10. Non-hemolyzed hyperkalemia. 11. Increased anion gap metabolic acidosis. 12. History of end-stage renal disease, hemodialysis dependent in the past with status post renal transplant. 13. Insulin-requiring diabetes mellitus with hyperglycemia. 14. Hypocalcemia. Plan at this time, the patient will be admitted to telemetry. The patient has been ordered repeat CMP, phosphorus, vitamin D, PTH, CBC in a.m. The patient has been ordered VBG. Consultation, Nephrology, Gastroenterology, Hematology/Oncology, TCU evaluation ordered. The patient is started on half normal saline with bicarb 75 mEq at 75 mL an hour. The patient's antihypertensive medicines have been stopped. The patient is resumed on CellCept 500 mg twice a day, [place] 324 twice a day, Humalog 20 units subcu daily, Lipitor 20 mg daily, prednisone 5 mg daily, tacrolimus 1 mg p.m. and 2 mg a.m., Protonix 40 mg daily. Insulin 20 units will be discontinued. The patient will be put on sliding scale coverage. The patient has been ordered gastrointestinal, deep venous thrombosis prophylaxis, Protonix 40 daily, Sensipar 30 mg daily, Zetia 10 mg daily. Renal ultrasound ordered by Nephrology. The patient is awaiting for a CAT scan of abdomen and pelvis p.o. contrast only. The patient has been ordered elevation of the lower extremity affected area, fingerstick blood sugar before meals and at bedtime. The patient will be started on sliding scale insulin coverage at low-dose Humalog. The patient was explained about the details of his medical condition, need for hospitalization, need for further diagnostic therapeutic intervention. The patient was also extensively explained about overall guarded prognosis because of the patient's worsening clinical condition and decompensated state. In addition, the patient has also not been able to schedule his aneurysm surgery with Dr. Rashaun Wilkinson for almost a year, which I have advised to him on multiple occasions. At present, the patient was seen in the emergency room in the bed #13. The patient is awaiting further evaluation and recommendation by all the subspecialty. The patient's further management will be dependent upon the patient's clinical condition, hemodynamic status and as per the patient's response to therapeutic intervention, as per the patient's diagnostic test results and as per recommendation by all the physicians involved in the care of the patient. Dictated and electronically signed, not read. Mart Knox MD
[2018-03-03] MEDS ORDERED: Insulin Regular 1 UNITS/0.01 ML ML ONE (17:58)
[2018-03-03] MEDS: Insulin Lispro (humaLOG) MEDIUM Coverage SC SCH (17:58)
[2018-03-03] MEDS ORDERED: Vancomycin 1gm in NS 250ml 1 GM/250 ML BAG IVPB SCH (18:00)
--- NOTE | 2018-03-03 18:27 | CP.PCM.CON ---
<Yamilka Lowery - Last Filed: 03/03/18 18:41> History of Present Illness - History of Present Illness History of Present Illness: Yamilka Lowery, PGY-1, CCU Consult Note for Dr. Murray CC: weakness and shortness of breath HPI: 67 year old male with past medical history of aortic valve replacement, anemia, renal transplant in 2006, hyperlipidemia, hypertension, insulin dependent diabetes, secondary hyperparathyroidism, polycystic kidney disease, chronic kidney disease, pulmonary hypertension, diastolic congestive heart failure with last EF of 62.9%, cachexia, and aortic dissection is a poor historian and presents with weakness and shortness of the breath for 3 weeks. Patient reports that he was last transfused 2 units of PRBCs on 02/20, but has continued to feel symptoms of weakness and shortness of breath. Patient reports feeling short of breath even with walking less than 10 steps. Patient also reports back pain, chest soreness, lack of appetite for the last 3 weeks as well. Patient reports back pain as a dull pain that does not radiate. Patient reports chest pain as a soreness that does not radiate. Patient reports black stool since being started on iron on 01/20. Patient denies headache, dizziness, fever, heart palpitations, wheezing, cough, nausea, vomiting, constipation, diarrhea, dysuria, hematuria. [id number] is negative except for what was listed above. PMH: as listed above PSH: aortic valve replacement, renal transplant in 2006, AAA repair Allergies: NKDA SHx: former smoker and drinker. Patient reports smoking and drinking at age 16. Smoked 1-2 cigarettes a day for 30 years. Patient is unsure how much alcohol he had for 30 years. Patient denies recreational drug use. Review of Systems - Constitutional Constitutional: absent: Anorexia, Chills, Fever, Headache - EENT Eyes: absent: Blurred Vision Ears: absent: Decreased Hearing Nose/Mouth/Throat: absent: Sore Throat - Cardiovascular Cardiovascular: Chest Pain (soreness), Edema. absent: Diaphoresis, Palpitations - Respiratory Respiratory: Dyspnea. absent: Cough, Wheezing - Gastrointestinal Gastrointestinal: absent: Abdominal Pain, Constipation, Diarrhea, Nausea, Vomiting - Genitourinary Genitourinary: absent: Dysuria, Nocturia - Musculoskeletal Musculoskeletal: Muscle Weakness - Integumentary Integumentary: absent: Rash - Neurological Neurological: absent: Abnormal Gait, Headaches Past Patient History - Infectious Disease Hx of Infectious Diseases: None - Past Medical History & Family History Past Medical History?: Yes - Past Social History Smoking Status: Former Smoker - CARDIAC Hx Cardiac Disorders: Yes (CAD) Hx Hypertension: Yes Hx Peripheral Edema: Yes (+1 pitting ble) Other/Comment: Aortic Valve Replacement at [facility], aortic abdominal aneurysm unable to do sx at present time - PULMONARY Hx Respiratory Disorders: No - NEUROLOGICAL Hx Neurological Disorder: No - HEENT Hx HEENT Problems: Yes (wears glasses) - RENAL Hx Chronic Kidney Disease: Yes (stage iv) Hx Dialysis: Yes (left arm fistula) Other/Comment: Kidney transplant at [facility] in [facility], [place], last dialysis oct 08 2006, hypertensive chronic kidney disease - ENDOCRINE/METABOLIC Hx Endocrine Disorders: Yes Hx Diabetes Mellitus Type 2: Yes - HEMATOLOGICAL/ONCOLOGICAL Hx Blood Disorders: Yes (blood transfusions most recent 3 wks ago) Hx Anemia: Yes (iron deficiency) Other/Comment: dx with anemia 2 yrs ago unable to get a colonoscopy due to aaa, may try new procedure in [place] as per pt, receives iron infusions from pt's dr, dr scales in [place] - INTEGUMENTARY Hx Dermatological Problems: Yes Other/Comment: multiple skin discolorations ble, pt refusing for me to removd his anti embolism stockings/shoes and socks to assess feet, pt stated "I'm embarrassed. I plan to see foot dr within a few weeks but I have had other health problems." pt stated. - MUSCULOSKELETAL/RHEUMATOLOGICAL Hx Musculoskeletal Disorders: Yes Hx Unsteady Gait: Yes - GASTROINTESTINAL Hx Gastrointestinal Disorders: Yes (poor appetite weight loss) Other/Comment: AAA, chronic hiccups - GENITOURINARY/GYNECOLOGICAL Hx Genitourinary Disorders: Yes Other/Comment: bilateral inguinal hernias (repaired) - PSYCHIATRIC Hx Psychophysiologic Disorder: No - SURGICAL HISTORY Hx Surgeries: Yes Hx Kidney Transplant: Yes (last hd oct 08 2006) Other/Comment: Aortic valve replacement, left forearm fistula not is use since october 08, 2006 - ANESTHESIA Hx Anesthesia: Yes Hx Anesthesia Reactions: No Hx Malignant Hyperthermia: No Meds Allergies/Adverse Reactions: Allergies Allergy/AdvReac Type Severity Reaction Status Date / Time No Known Allergies Allergy Verified 03/03/18 09:25 - Medications Medications: Current Medications Atorvastatin Calcium (Lipitor) 20 mg PO DIN [facility] Last Admin: 03/03/18 17:58 Dose: 20 mg Calcitriol (Rocaltrol) 0.5 mcg PO DAILY [facility] Cinacalcet (Sensipar) 30 mg PO DAILY [facility] Ezetimibe (Zetia) 10 mg PO DAILY [facility] Ferrous Gluconate (Fergon) 324 mg PO BID [facility] Hydrocortisone Sodium Succinate (Solu-Cortef) 50 mg IVP Q6H [facility] Sodium Bicarbonate 75 meq/ (Sodium Chloride) 1,075 mls @ 75 mls/hr IV .[id number] [facility] Stop: 03/04/18 16:24 Last Admin: 03/03/18 15:42 Dose: 75 mls/hr Vancomycin HCl (Vancomycin 1gm) 1 gm in 250 mls @ 167 mls/hr IVPB Q12H [facility] PRN Reason: Protocol Piperacillin Sod/Tazobactam Sod (Zosyn 3.375 In Ns 100ml) 100 mls @ 200 mls/hr IVPB Q8 [place] PRN Reason: Protocol Stop: 03/04/18 06:29 Insulin Human Lispro (Humalog Med) 0 units SC AC [facility] PRN Reason: Protocol Last Admin: 03/03/18 17:58 Dose: 5 unit Pantoprazole Sodium (Protonix Ec Tab) 40 mg PO DAILY [facility] Tacrolimus (Prograf Cap) 1 mg PO QPM [facility] Tacrolimus (Prograf Cap) 2 mg PO QAM [facility] Physical Exam - Constitutional Appears: Well, No Acute Distress, Unkempt, Cachectic - Head Exam Head Exam: ATRAUMATIC, NORMAL INSPECTION, NORMOCEPHALIC - Eye Exam Eye Exam: EOMI, PERRL - Neck Exam Neck exam: Positive for: Normal Inspection. Negative for: Lymphadenopathy - Respiratory Exam Respiratory Exam: Clear to Auscultation Bilateral, NORMAL BREATHING PATTERN - Cardiovascular Exam Cardiovascular Exam: REGULAR RHYTHM, RRR, Systolic Murmur - GI/Abdominal Exam GI & Abdominal Exam: Distended, Firm, Hypoactive Bowel Sounds - Extremities Exam Extremities exam: Positive for: full ROM, normal inspection, pedal edema (+2) Additional comments: AV fistula in left arm - Back Exam Back exam: absent: CVA tenderness (L) (pain noted in this area but not true CVA tenderness), CVA tenderness (R) (pain noted in this area but not true CVA tenderness) - Neurological Exam Neurological exam: Alert, CN II-XII Intact, Oriented x3 - Skin Skin Exam: Dry, Intact, Normal Color Results - Vital Signs Recent Vital Signs: Last Vital Signs Temp 97.7 F 03/03/18 09:25 Pulse 76 03/03/18 18:00 Resp 18 03/03/18 18:00 BP 86/57 L 03/03/18 18:00 Pulse Ox 100 03/03/18 18:00 - Labs Result Diagrams: 03/03/18 10:20 03/03/18 10:20 Labs: Laboratory Results - last 24 hr 03/03/18 03/03/18 14:25 17:28 pO2 45 VBG pH 7.22 L VBG pCO2 39.0 L VBG HCO3 16.0 L VBG Total CO2 17.2 L VBG O2 Sat (Calc) 81.1 H VBG Base Excess -11.1 L VBG Potassium 4.7 Sodium 126.0 L Chloride 95.0 L Glucose 296 H Lactate 2.3 H FiO2 21.0 POC Glucose (mg/dL) 269 H Venous Blood Potassium 4.7 - Impressions Impression: Normal sinus rhythm, left atrial enlargement HR: 85 QRS: 174 QRS: 104 QTc: 456 Assessment & Plan - Assessment and Plan (Free Text) Assessment: 67 year old male with past medical history of aortic valve replacement, anemia, renal transplant in 2006, hyperlipidemia, hypertension, insulin dependent diabetes, secondary hyperparathyroidism, polycystic kidney disease, chronic kidney disease, pulmonary hypertension, diastolic congestive heart failure with last EF of 62.9%, cachexia, and aortic dissection is a poor historian and presents with weakness and shortness of the breath for 3 weeks. Plan: Neuro: -AAOx3, no FND, moving extremities past midline. -Monitor neuro status. -Reorient patient as necessary. Cardio: -Patient with history of diastolic CHF, aortic valve replacement, hypertension, hyperlipidemia, anemia -RRR, hypotensive at 86/57 from 91/57, +2 pitting edema in bilateral lower ext remities -Meza CT: infrarenal abdominal aortic aneurysm stable -EKG: normal sinus rhythm with HR: 85 -Hgb: 8.8. Patient last had 2 U of PRBC transfused on 02/20/18. Continue to monitor. -Obtain FOBT. -Ferrous gluconate 324 mg TID -NS with bicarbonate drip started at 75 mL/hr. 500 cc bolus of NS given. -Consider midodrine if blood pressure does not improve. -Maintain MAP>65. -Monitor for S/S, HD compromise. Pulm: -Patient is short of breath on minimal exertion. CTA B/L -CXR: large left lower lobe infiltrate. Bilateral pleural effusions with left larger than right. -Patient started on vancomycin and zosyn due to suspicion of possible pneumonia. -Patient is stating well on nasal cannula. -Maintain O2 saturation>95%. -Continue O2 NC PRN GI: -Diabetic consistent carbohydrate diet started -Protonix 40 daily /Nephro: -Patient has history of renal transplant -BUN/Cr: 115/7.4 -Renal transplant: hydronephrosis of right transplant kidney, stable PCKD -UA and UC ordered -Patient is currently on tacrolimus and hydrocortisone for immunosuppression. Cellcept held. -Calcitriol and calcium carbonate for hypocalcemia, NS 500 cc bolus and NS with bicarbonate for hyponatremia, NS with bicarbonate for low bicarbonate level. -CMP, Mg, PO4 at 22:00. CMP, Mg, PO4 Q8 after 22:00 to monitor electrolytes. -Dr. Wheeler, consulted for nephrology. Follow recommendations. -As per nephrology, there is no need for hemodialysis at this time. Endocrinology: -Last random glucose level: 291 -Patient started on medium dose sliding scale insulin. -Obtain and maintain euglycemia. Heme/Onc: -Patient anemia at 8.8. -FOBT ordered. -Continue monitoring H/H -Ferrous gluconate started ID: -Afebrile, no leukocytosis -CXR: large left lower lobe infiltrate. Bilateral pleural effusions with left la rger than right. -Last VBG lactate: 2.3 -BCx -UCx -Procalcitonin -Continue to monitor lactate. -Patient started empirically with vancomycin and zosyn. -Monitor for signs and symptoms of infection. DVT prophylaxis: SCD GI prophylaxis: pantoprazole 40 mg daily - Date & Time Date: 03/03/18 Time: 18:33 <Serenity Murray - Last Filed: 03/04/18 16:59> Meds - Medications Medications: Current Medications Acetaminophen (Tylenol 325mg Tab) 650 mg PO Q6 PRN PRN Reason: TEMP>=99.5F Acetaminophen (Tylenol 650 Mg Supp) 650 mg RC Q6H PRN PRN Reason: TEMP>=99.5F Acetaminophen (Tylenol 650 Mg Supp) 650 mg RC Q6H PRN PRN Reason: Headache Acetaminophen (Tylenol 325mg Tab) 650 mg PO Q6H PRN PRN Reason: Headache Atorvastatin Calcium (Lipitor) 20 mg PO DIN [facility] Last Admin: 03/03/18 17:58 Dose: 20 mg Benzonatate (Tessalon Perles) 200 mg PO TID [facility] Last Admin: 03/04/18 13:52 Dose: 200 mg Calcitriol (Rocaltrol) 0.5 mcg PO DAILY [facility] Last Admin: 03/04/18 14:10 Dose: 0.5 mcg Calcium Acetate (Phoslo) 667 mg PO WM [facility] Last Admin: 03/04/18 14:21 Dose: 667 mg Calcium Carbonate (Oscal) 500 mg PO BID [facility] Cinacalcet (Sensipar) 30 mg PO DAILY [facility] Docusate Sodium (Colace) 100 mg PO TID [facility] Last Admin: 03/04/18 14:23 Dose: 100 mg Ezetimibe (Zetia) 10 mg PO DAILY [facility] Last Admin: 03/04/18 14:04 Dose: 10 mg Ferrous Gluconate (Fergon) 324 mg PO BID [facility] Last Admin: 03/04/18 14:22 Dose: 324 mg Hydrocortisone Sodium Succinate (Solu-Cortef) 50 mg IVP Q6H [facility] Last Admin: 03/04/18 13:50 Dose: 50 mg Doxycycline Hyclate 100 mg/ (Sodium Chloride) 100 mls @ 100 mls/hr IVPB Q12 [facility]; Protocol Last Admin: 03/04/18 13:40 Dose: 100 mls/hr Meropenem 500 mg/ Sodium (Chloride) 50 mls @ 100 mls/hr IVPB Q24H [facility]; Protocol Stop: 03/10/18 22:46 Last Admin: 03/03/18 23:19 Dose: 100 mls/hr Insulin Human Lispro (Humalog High) 0 units SC ACHS [facility]; Protocol Last Admin: 03/04/18 13:38 Dose: 2 u Levalbuterol HCl (Xopenex) 0.63 mg IH [id number] [facility] Last Admin: 03/04/18 13:12 Dose: 0.63 mg Midodrine (Proamatine) 5 mg PO TID [facility] Last Admin: 03/04/18 14:20 Dose: 5 mg Ondansetron HCl (Zofran Inj) 4 mg IVP Q4H PRN PRN Reason: Nausea/Vomiting Pantoprazole Sodium (Protonix Ec Tab) 40 mg PO 0600 [facility] Last Admin: 03/04/18 06:38 Dose: 40 mg Polyethylene Glycol (Miralax) 17 gm PO BID [facility] Last Admin: 03/04/18 14:33 Dose: Not Given Tacrolimus (Prograf Cap) 1 mg PO QPM [facility] Last Admin: 03/03/18 19:12 Dose: 1 mg Tacrolimus (Prograf Cap) 2 mg PO QAM [facility] Last Admin: 03/04/18 14:19 Dose: 2 mg Results - Vital Signs Recent Vital Signs: Last Vital Signs Temp 97.8 F 03/04/18 06:00 Pulse 94 H 03/04/18 14:00 Resp 41 H 03/04/18 07:40 BP 109/49 L 03/04/18 07:00 Pulse Ox 100 03/04/18 07:40 - Labs Result Diagrams: 03/04/18 06:40 03/04/18 10:00 Labs: Laboratory Results - last 24 hr 03/03/18 03/03/18 03/03/18 10:20 10:30 10:30 WBC RBC Hgb Hct MCV MCH MCHC RDW Plt Count Gran % Lymph % (Auto) Calvert % (Auto) Eos % (Auto) Baso % (Auto) Gran # Lymph # (Auto) Calvert # (Auto) Eos # (Auto) Baso # (Auto) pCO2 pO2 HCO3 ABG pH ABG Total CO2 ABG O2 Saturation ABG O2 Content ABG Base Excess ABG Hemoglobin ABG Carboxyhemoglobin POC ABG HHb (Measured) ABG Methemoglobin ABG O2 Capacity VBG pH VBG pCO2 VBG HCO3 VBG Total CO2 VBG O2 Sat (Calc) VBG Base Excess VBG Potassium Hgb O2 Saturation Sodium Chloride Glucose Lactate FiO2 Potassium Carbon Dioxide Anion Gap BUN Creatinine Est GFR ( Amer) Est GFR (Non-Af Amer) POC Glucose (mg/dL) Random Glucose Hemoglobin A1c Lactic Acid Calcium Phosphorus Magnesium Total Bilirubin Direct Bilirubin AST ALT Alkaline Phosphatase NT-Pro-B Natriuret Pep 05906 H Total Protein Albumin Globulin Albumin/Globulin Ratio 25-OH Vitamin D Total Procalcitonin PTH Intact Whole Molec 469 H Venous Blood Potassium Random Vancomycin Tacrolimus (LC/MS/MS) 15.5 Hep Bs Antigen Hep B Core IgM Ab 03/03/18 03/03/18 03/03/18 17:28 20:13 20:13 WBC RBC Hgb Hct MCV MCH MCHC RDW Plt Count Gran % Lymph % (Auto) Calvert % (Auto) Eos % (Auto) Baso % (Auto) Gran # Lymph # (Auto) Calvert # (Auto) Eos # (Auto) Baso # (Auto) pCO2 pO2 36 HCO3 ABG pH ABG Total CO2 ABG O2 Saturation ABG O2 Content ABG Base Excess ABG Hemoglobin ABG Carboxyhemoglobin POC ABG HHb (Measured) ABG Methemoglobin ABG O2 Capacity VBG pH 7.27 L VBG pCO2 32.0 L VBG HCO3 14.7 L VBG Total CO2 15.7 L VBG O2 Sat (Calc) 76.6 H VBG Base Excess -11.0 L VBG Potassium 4.2 Hgb O2 Saturation Sodium 129.0 L 129 L Chloride 99.0 98 Glucose 168 H Lactate 1.6 FiO2 21.0 Potassium 4.1 Carbon Dioxide 14 L Anion Gap 22 H BUN 113 H Creatinine 6.9 H Est GFR ( Amer) 10 Est GFR (Non-Af Amer) 8 POC Glucose (mg/dL) 269 H Random Glucose 156 H Hemoglobin A1c Lactic Acid Calcium 6.1 L* Phosphorus 5.8 H Magnesium 1.6 L Total Bilirubin 0.1 L Direct Bilirubin AST 17 ALT 17 Alkaline Phosphatase 70 NT-Pro-B Natriuret Pep Total Protein 5.0 L Albumin 2.6 L Globulin 2.4 Albumin/Globulin Ratio 1.1 25-OH Vitamin D Total Procalcitonin PTH Intact Whole Molec Venous Blood Potassium 4.2 Random Vancomycin Tacrolimus (LC/MS/MS) Hep Bs Antigen Hep B Core IgM Ab 03/03/18 03/03/18 03/04/18 20:13 20:13 02:30 WBC RBC Hgb Hct MCV MCH MCHC RDW Plt Count Gran % Lymph % (Auto) Calvert % (Auto) Eos % (Auto) Baso % (Auto) Gran # Lymph # (Auto) Calvert # (Auto) Eos # (Auto) Baso # (Auto) pCO2 pO2 HCO3 ABG pH ABG Total CO2 ABG O2 Saturation ABG O2 Content ABG Base Excess ABG Hemoglobin ABG Carboxyhemoglobin POC ABG HHb (Measured) ABG Methemoglobin ABG O2 Capacity VBG pH VBG pCO2 VBG HCO3 VBG Total CO2 VBG O2 Sat (Calc) VBG Base Excess VBG Potassium Hgb O2 Saturation Sodium Chloride Glucose Lactate FiO2 Potassium Carbon Dioxide Anion Gap BUN Creatinine Est GFR ( Amer) Est GFR (Non-Af Amer) POC Glucose (mg/dL) 284 H Random Glucose Hemoglobin A1c Lactic Acid Calcium Phosphorus Magnesium Total Bilirubin Direct Bilirubin AST ALT Alkaline Phosphatase NT-Pro-B Natriuret Pep Total Protein Albumin Globulin Albumin/Globulin Ratio 25-OH Vitamin D Total Procalcitonin 150.03 H PTH Intact Whole Molec Venous Blood Potassium Random Vancomycin 24.4 Tacrolimus (LC/MS/MS) Hep Bs Antigen Hep B Core IgM Ab 03/04/18 03/04/18 03/04/18 06:30 06:40 06:40 WBC 4.3 L D RBC 3.80 Hgb 8.7 L Hct 27.1 L MCV 71.3 L MCH 22.9 L MCHC 32.1 RDW 19.3 H Plt Count 147 Gran % 95.6 H Lymph % (Auto) 3.0 L Calvert % (Auto) 1.4 Eos % (Auto) 0.0 L Baso % (Auto) 0.0 Gran # 4.13 Lymph # (Auto) 0.1 L Calvert # (Auto) 0.1 Eos # (Auto) 0.0 Baso # (Auto) 0.00 pCO2 pO2 HCO3 ABG pH ABG Total CO2 ABG O2 Saturation ABG O2 Content ABG Base Excess ABG Hemoglobin ABG Carboxyhemoglobin POC ABG HHb (Measured) ABG Methemoglobin ABG O2 Capacity VBG pH VBG pCO2 VBG HCO3 VBG Total CO2 VBG O2 Sat (Calc) VBG Base Excess VBG Potassium Hgb O2 Saturation Sodium 131 L Chloride 94 L Glucose Lactate FiO2 Potassium 5.3 H Carbon Dioxide 11 L Anion Gap 31 H BUN 119 H Creatinine 6.6 H Est GFR ( Amer) 10 Est GFR (Non-Af Amer) 8 POC Glucose (mg/dL) Random Glucose 288 H Hemoglobin A1c Lactic Acid Calcium 7.5 L Phosphorus 6.9 H Magnesium 2.1 Total Bilirubin 0.4 Direct Bilirubin 0.4 AST 26 ALT 13 Alkaline Phosphatase 87 NT-Pro-B Natriuret Pep Total Protein 5.9 Albumin 3.5 Globulin 2.4 Albumin/Globulin Ratio 1.5 25-OH Vitamin D Total Procalcitonin PTH Intact Whole Molec Venous Blood Potassium Random Vancomycin Tacrolimus (LC/MS/MS) Hep Bs Antigen Negative Hep B Core IgM Ab Negative 03/04/18 03/04/18 03/04/18 06:40 06:40 08:05 WBC RBC Hgb Hct MCV MCH MCHC RDW Plt Count Gran % Lymph % (Auto) Calvert % (Auto) Eos % (Auto) Baso % (Auto) Gran # Lymph # (Auto) Calvert # (Auto) Eos # (Auto) Baso # (Auto) pCO2 19 L* pO2 120.0 H HCO3 9.1 L* ABG pH 7.29 L ABG Total CO2 9.7 L ABG O2 Saturation 98.0 ABG O2 Content 10.8 L ABG Base Excess -15.8 L ABG Hemoglobin 7.8 L ABG Carboxyhemoglobin 0.7 POC ABG HHb (Measured) 2.0 ABG Methemoglobin 1.1 ABG O2 Capacity 11.0 L VBG pH VBG pCO2 VBG HCO3 VBG Total CO2 VBG O2 Sat (Calc) VBG Base Excess VBG Potassium Hgb O2 Saturation 96.1 Sodium Chloride Glucose Lactate FiO2 28.0 Potassium Carbon Dioxide Anion Gap BUN Creatinine Est GFR ( Amer) Est GFR (Non-Af Amer) POC Glucose (mg/dL) Random Glucose Hemoglobin A1c 10.4 H D Lactic Acid Calcium Phosphorus Magnesium Total Bilirubin Direct Bilirubin AST ALT Alkaline Phosphatase NT-Pro-B Natriuret Pep Total Protein Albumin Globulin Albumin/Globulin Ratio 25-OH Vitamin D Total 35.6 Procalcitonin PTH Intact Whole Molec Venous Blood Potassium Random Vancomycin Tacrolimus (LC/MS/MS) Hep Bs Antigen Hep B Core IgM Ab 03/04/18 03/04/18 03/04/18 08:05 10:00 12:32 WBC RBC Hgb Hct MCV MCH MCHC RDW Plt Count Gran % Lymph % (Auto) Calvert % (Auto) Eos % (Auto) Baso % (Auto) Gran # Lymph # (Auto) Calvert # (Auto) Eos # (Auto) Baso # (Auto) pCO2 pO2 HCO3 ABG pH ABG Total CO2 ABG O2 Saturation ABG O2 Content ABG Base Excess ABG Hemoglobin ABG Carboxyhemoglobin POC ABG HHb (Measured) ABG Methemoglobin ABG O2 Capacity VBG pH VBG pCO2 VBG HCO3 VBG Total CO2 VBG O2 Sat (Calc) VBG Base Excess VBG Potassium Hgb O2 Saturation Sodium 132 Chloride 94 L Glucose Lactate FiO2 Potassium 4.2 Carbon Dioxide 10 L Anion Gap 32 H BUN 116 H Creatinine 7.1 H Est GFR ( Amer) 9 Est GFR (Non-Af Amer) 8 POC Glucose (mg/dL) 332 H 159 H Random Glucose 304 H* Hemoglobin A1c Lactic Acid Calcium 7.5 L Phosphorus 6.9 H Magnesium 2.0 Total Bilirubin Direct Bilirubin AST ALT Alkaline Phosphatase NT-Pro-B Natriuret Pep Total Protein Albumin Globulin Albumin/Globulin Ratio 25-OH Vitamin D Total Procalcitonin PTH Intact Whole Molec Venous Blood Potassium Random Vancomycin Tacrolimus (LC/MS/MS) Hep Bs Antigen Hep B Core IgM Ab 03/04/18 12:45 WBC RBC Hgb Hct MCV MCH MCHC RDW Plt Count Gran % Lymph % (Auto) Calvert % (Auto) Eos % (Auto) Baso % (Auto) Gran # Lymph # (Auto) Calvert # (Auto) Eos # (Auto) Baso # (Auto) pCO2 pO2 HCO3 ABG pH ABG Total CO2 ABG O2 Saturation ABG O2 Content ABG Base Excess ABG Hemoglobin ABG Carboxyhemoglobin POC ABG HHb (Measured) ABG Methemoglobin ABG O2 Capacity VBG pH VBG pCO2 VBG HCO3 VBG Total CO2 VBG O2 Sat (Calc) VBG Base Excess VBG Potassium Hgb O2 Saturation Sodium Chloride Glucose Lactate FiO2 Potassium Carbon Dioxide Anion Gap BUN Creatinine Est GFR ( Amer) Est GFR (Non-Af Amer) POC Glucose (mg/dL) Random Glucose Hemoglobin A1c Lactic Acid 0.7 Calcium Phosphorus Magnesium Total Bilirubin Direct Bilirubin AST ALT Alkaline Phosphatase NT-Pro-B Natriuret Pep Total Protein Albumin Globulin Albumin/Globulin Ratio 25-OH Vitamin D Total Procalcitonin PTH Intact Whole Molec Venous Blood Potassium Random Vancomycin Tacrolimus (LC/MS/MS) Hep Bs Antigen Hep B Core IgM Ab Addendum Addendum: 03/03/18 17:59 ICU Attending Addendum: Patient seen and examined. Case reviewed on round with housestaff. Agree with resident note above with the following additions/exceptions: 67M with CKD, PCKD s/p renal transplant admitted with hypotension. He has PCKD s/p right renal transplant about 10 years ago however transplant has been failing and planning to start HD soon. Has AV fistula in place which has not been used. C/o lethargy, weakness and poor PO intake. Cough but no sputum. No fevers at home except one episode of chill 4 days ago. Given his hypotension in the ED and poor PO intake as well as hypoNa, I suspect he is dehydrated. Volume resuscitation as per [place] who has already ordered fluids for him. Will monitor for volume overload given his CKD. Strickt I&O and monitor for any urine output. Other causes include sepsis possible from PNA. He is on bactrim m/w/f at home as well as pred. There may be a component of relative adrenal insufficiency. Abx given in ED, broaded to vanc/zosyn, order ID consult. Will give stress dose steroids as well (HC 100 IV stat then 50 Q6h) f/u blood sputum and urine cultures f/u chem given hypoNa and elevated K hold home anti-hypertensives repeat Chem - trend K, if elevated tx with insulin/gluc and calcium if needed rest of care above Serenity Murray MD Crime Scene Technician Crtical Care TIme: 31 mins
[2018-03-03] MEDS ORDERED: Influenza Vaccine 60 mcg/0.5 mL SYR (4YR UP) IM ONE (18:30)
[2018-03-03] MEDS ORDERED: Pneumococcal 23-Valent Vaccine IM ONE (18:30)
[2018-03-03] MEDS ORDERED: Sodium Chloride 0.9% 500 ML IV STA (18:40)
[2018-03-03] MEDS ORDERED: Morphine 2 mg/ml ISec IVP ONE ×2 (18:50→22:45)
--- NOTE | 2018-03-03 20:09 | CP.PCM.HP ---
<Rafael Faye Manny - Last Filed: 03/03/18 21:01> History of Present Illness - History of Present Illness History of Present Illness: PGY-[address] Knox Mr Goodwin is a 67 year old male with a PMHx of polycystic kidney disease s/p kidney transplant in 2006, insulin dependent diabetes, aortic valve replacement, anemia, hyperlipidemia, hypertension, secondary hyperparathyroidism, chronic kidney disease, pulmonary hypertension, diastolic congestive heart failure, cachexia, and abdominal aortic aneurysm, who presents for fatigue and weakness for the past 7 days. Patient also reports back pain, chest soreness, lack of appetite for the last 3 weeks as well. Patient reports black stool since being started on iron. He has had multiple blood transfusions in the past for anemia. He was scheduled for a repair of his AAA (Dr Dewitt) in 09/2017 however the surgery was cancelled due to abnormal lab values. He was supposed to get a colonoscopy after the repair of his AAA however the AAA repair was cancelled. He follows up with heme/onc Dr Leigh outpatient and food and beverage lead Dr Wall. PMD: Dr Knox Heme/Onc: Dr Leigh Creel Selector: Dr Wheeler Vascular Surgeon: Dr. Dewitt: [facility] PMHx: polycystic kidney disease s/p kidney transplant in 2006, insulin dependent diabetes, aortic valve replacement, anemia, hyperlipidemia, hypertension, secondary hyperparathyroidism, chronic kidney disease, pulmonary hypertension, diastolic congestive heart failure, cachexia, and abdominal aortic aneurysm PMHx: aortic valve replacement, renal transplant in 2006, Bilateral inguinal hernia repair, Left forearm AVF All: NKA Home Meds: as EMR SocialHx: 2 pack year smoking hx - quit 35 years ago; denies alcohol or illicit drug use FamHx: Mother with Polycystic Kidney Disease, Grandfather with Polycystic Kidney Disease, Sister with Polycystic Kidney Disease Present on Admission - Present on Admission Any Indicators Present on Admission: No Review of Systems - Constitutional Constitutional: absent: Chills, Fever - EENT Eyes: absent: Blurred Vision - Cardiovascular Cardiovascular: Chest Pain, Dyspnea on Exertion, Lightheadedness. absent: Chest Pain with Activity, Diaphoresis, Palpitations - Respiratory Respiratory: absent: Cough - Gastrointestinal Gastrointestinal: absent: Abdominal Pain - Genitourinary Genitourinary: absent: Dysuria - Hematologic/Lymphatic Hematologic: absent: Easy Bleeding Past Patient History - Infectious Disease Hx of Infectious Diseases: None - Past Medical History & Family History Past Medical History?: Yes - Past Social History Smoking Status: Former Smoker - CARDIAC Hx Cardiac Disorders: Yes (CAD) Hx Hypertension: Yes Hx Peripheral Edema: Yes (+1 pitting ble) Other/Comment: Aortic Valve Replacement at [facility], aortic abdominal aneurysm unable to do sx at present time - PULMONARY Hx Respiratory Disorders: No - NEUROLOGICAL Hx Neurological Disorder: No - HEENT Hx HEENT Problems: Yes (wears glasses) - RENAL Hx Chronic Kidney Disease: Yes (stage iv) Hx Dialysis: Yes (left arm fistula) Other/Comment: Kidney transplant at [facility] in [place] [facility], last dialysis oct 08 2006, hypertensive chronic kidney disease - ENDOCRINE/METABOLIC Hx Endocrine Disorders: Yes Hx Diabetes Mellitus Type 2: Yes - HEMATOLOGICAL/ONCOLOGICAL Hx Blood Disorders: Yes (blood transfusions most recent 3 wks ago) Hx Anemia: Yes (iron deficiency) Other/Comment: dx with anemia 2 yrs ago unable to get a colonoscopy due to aaa, may try new procedure in [place] as per pt, receives iron infusions from pt's dr, dr leigh in [place] - INTEGUMENTARY Hx Dermatological Problems: Yes Other/Comment: multiple skin discolorations ble, pt refusing for me to removd his anti embolism stockings/shoes and socks to assess feet, pt stated "I'm embarrassed. I plan to see foot dr within a few weeks but I have had other he alth problems." pt stated. - MUSCULOSKELETAL/RHEUMATOLOGICAL Hx Musculoskeletal Disorders: Yes Hx Unsteady Gait: Yes - GASTROINTESTINAL Hx Gastrointestinal Disorders: Yes (poor appetite weight loss) Other/Comment: AAA, chronic hiccups - GENITOURINARY/GYNECOLOGICAL Hx Genitourinary Disorders: Yes Other/Comment: bilateral inguinal hernias (repaired) - PSYCHIATRIC Hx Psychophysiologic Disorder: No - SURGICAL HISTORY Hx Surgeries: Yes Hx Kidney Transplant: Yes (last hd oct 08 2006) Other/Comment: Aortic valve replacement, left forearm fistula not is use since october 08, 2006 - ANESTHESIA Hx Anesthesia: Yes Hx Anesthesia Reactions: No Hx Malignant Hyperthermia: No Meds Allergies/Adverse Reactions: Allergies Allergy/AdvReac Type Severity Reaction Status Date / Time No Known Allergies Allergy Verified 03/03/18 09:25 Physical Exam - Constitutional Appears: Cachectic - Head Exam Head Exam: ATRAUMATIC, NORMAL INSPECTION - Eye Exam Eye Exam: EOMI, Normal appearance, PERRL. absent: Scleral icterus - ENT Exam ENT Exam: Mucous Membranes Moist - Respiratory Exam Respiratory Exam: Chest Wall Tenderness, Clear to Auscultation Bilateral. absent: Rales, Rhonchi, Wheezes - Cardiovascular Exam Cardiovascular Exam: REGULAR RHYTHM, +S1, +S2, Systolic Murmur. absent: Tachycardia - GI/Abdominal Exam GI & Abdominal Exam: Normal Bowel Sounds, Soft. absent: Distended, Firm, Guarding, Tenderness - Extremities Exam Extremities exam: Positive for: full ROM, normal inspection. Negative for: calf tenderness - Neurological Exam Neurological exam: Alert, CN II-XII Intact, Oriented x3, Reflexes Normal - Skin Skin Exam: Normal Color, Warm Results - Vital Signs Recent Vital Signs: Last Vital Signs Temp 97.7 F 03/03/18 18:09 Pulse 90 03/03/18 19:10 Resp 46 H 03/03/18 19:10 BP 79/53 L 03/03/18 19:00 Pulse Ox 100 03/03/18 19:10 - Labs Result Diagrams: 03/03/18 10:20 03/03/18 20:13 Labs: Laboratory Results - last 24 hr 03/03/18 03/03/18 14:25 17:28 pO2 45 VBG pH 7.22 L VBG pCO2 39.0 L VBG HCO3 16.0 L VBG Total CO2 17.2 L VBG O2 Sat (Calc) 81.1 H VBG Base Excess -11.1 L VBG Potassium 4.7 Sodium 126.0 L Chloride 95.0 L Glucose 296 H Lactate 2.3 H FiO2 21.0 POC Glucose (mg/dL) 269 H Venous Blood Potassium 4.7 Assessment & Plan - Assessment and Plan (Free Text) Plan: Mr Goodwin is a 67 year old male with a PMHx of polycystic kidney disease s/p kidney transplant in 2006, insulin dependent diabetes, aortic valve replacement, anemia, hyperlipidemia, hypertension, secondary hyperparathyroidism, chronic kidney disease, pulmonary hypertension, diastolic congestive heart failure, cachexia, and abdominal aortic aneurysm, who presents for fatigue and weakness for the past 7 days: Chronic Kidney Disease Stage V -Nephrology consult, Dr Wheeler * No need for emergent hemodialysis at this time -Renal Ultrasound: * New hydronephrosis transplanted kidney. Otherwise unremarkable. [place] kidneys display findings consistent with polycystic kidney disease. Addendum: Although the hydronephrosis within the transplant kidney is a new finding compared to the prior ultrasound performed 02/16/2014 it was present with similar degree on the prior CT scan 02/27/2017 compared to the current CT scan. Therefore I do not believe this represents acute obstructive uropathy. Hypotension -Monitor in ICU -1/2NS with sodium bicarb 75meq @ 75mls/hr -Hold all home antihypertensives Symptomatic Anemia -Hgb 8.8 on admission -Consult GI, Dr Cordova * GI bleed vs anemia of CKD vs both -Type and screen -Ferrous Gluconate 324mg po bid (home med) -F/U FOBT Status Post Renal Transplant -Heme/Onc consult, Dr Leigh -F/U tacrolimus level -Tacrolimus 2mg po Qam, 1mg po Qpm Hydronephrotic Transplanted Kidney -CT chest/abd/pelvis: * Hydronephrotic transplanted kidney in the right hemipelvis. Stable polycystic kidney disease. Chronic Kidney Disease - Mineral and Bone Disorder -F/U PTH intact -Calcitriol 0.5mcg po qd -Calcium carbonate 1000mg po q6h Small Bilateral Pleural Effusions -CT chest/abd/pelvis w/o contrast: * New small bilateral pleural effusions with associated compressive atelectasis. -Possibly 2/2 acute on chronic CHF Stable Infiltrate Right Upper Lobe -CT chest/abd/pelvis w/o contrast: * Stable infiltrate right upper lobe. -Infectious Disease consult, Dr Squires -F/U Blood Cx, Urine Cx, F/U Procalcitonin -CPT, incentive spirometer q2h, nasal cannula 2L prn -Benzonatate 200mg po tid -Doxycycline 100mg ivpb q12h -Vancomycin 1g ivpb q12h -Zosyn 3.375g ivpb q8h -Levalbuterol 0.63mg IH Q6H Acute on Chronic CHF -ProBNP -Echo 07/2017 showed LVH, grade 1 abnormal relaxation patter, normal EF -Will not give diuretics 2/2 to hypotension -Is/Os, maintain head of bed 30 degrees, daily weights Abdominal Aortic Aneurysm -CT chest/abd/pelvis w/o contrast: * Stable infrarenal abdominal aortic aneurysm. Mean axial diameter 8.3 cm. Cephalocaudal dimension 13.1 cm. -Patient was to have repair this past year which was cancelled due to lab abnormalities - it seems patient never followed-up Metabolic Acidosis -Ph 7.27 on vbg on admission -1/2NS with sodium bicarb 75meq @ 75mls/hr Elevated Lactate on VBG, Resolved -F/U Blood Cx, Urine Cx IDDM2 -RISS medium dose SC AC -Accuchecks ACHS HLD -Atorvastatin 20mg po din -Ezetimibe 10mg po qd (home med) Prophylaxis -Protonix 40mg po qd -Consistent carb diet -SCDs -OT, PT, ST <Lisette,Mart U - Last Filed: 03/11/18 22:14> Results - Vital Signs Recent Vital Signs: Last Vital Signs Temp 98.9 F 03/10/18 08:00 Pulse 81 03/10/18 16:00 Resp 32 H 03/10/18 16:00 BP 120/72 03/10/18 16:00 Pulse Ox 92 L 03/10/18 16:00 - Labs Result Diagrams: 03/10/18 06:50 03/10/18 06:50 Labs: Laboratory Results - last 24 hr 03/10/18 06:50 PTH w/Ion &Tot Calcium 256 H Attending/Attestation - Attestation I have personally seen and examined this patient.: Yes I have fully participated in the care of the patient.: Yes I have reviewed all pertinent clinical information: Yes Notes (Text): Please see/read my dictated notes.
[2018-03-03 20:17] LABS: VENOUS BLOOD GAS PO2 36 mm/Hg (30-55); VENOUS BLOOD PH 7.27 (7.32-7.43)
[2018-03-03] MEDS: Levalbuterol 0.63 MG/3 ML Inhal Soln UD IH SCH (20:22)
[2018-03-03 20:39] LABS: ALB/GLOB RATIO 1.1 (1.1-1.8); ALBUMIN 2.6 g/dL (3.0-4.8); CALCIUM 6.1 mg/dL (8.4-10.5)
[2018-03-03] MEDS ORDERED: Piperacillin/Tazobact 3.375 gm 100 ML IVPB SCH (22:00)
[2018-03-03] MEDS ORDERED: Magnesium Sulfate 1 gm in D5W 1 GM/100 ML BAG IVPB ONE (23:03)
[2018-03-03] MEDS: Meropenem 500 MG in Sodium Chloride 0.9% 50 ML IVPB SCH (23:19)
[2018-03-04] MEDS: Albumin Human 25% (25 gm/100 ml) IV SCH ×3 (00:26→18:17)
[2018-03-04] MEDS: Levalbuterol 0.63 MG/3 ML Inhal Soln UD IH SCH ×4 (01:47→19:50)
--- NOTE | 2018-03-04 05:33 | CON ---
DATE: 03/03/2018 LOCATION: [facility]. NEPHROLOGY CONSULTATION HISTORY OF PRESENT ILLNESS: A 67-year-old male with past medical history of hypertension, CKD stage IV, status post renal allograft (2006), post-transplant, diabetes mellitus, recurrent anemia, status post aortic valve replacement (2002), an unrepaired abdominal aortic aneurysm, presented to ED with worsening lethargy. Nephrology is being consulted for acute renal failure. The patient again has not followed up with us since his previous admission in 07/2017 with symptomatic anemia. 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 The patient reports that for the past 1 plus week, he has been having decreased appetite with some nausea and bland taste in mouth. The patient denies any pruritus; has some shortness of breath. Denies any leg swelling. The patient has been urinating less lately. The patient was supposed to follow up with Vascular Surgery as well for repair of his large 8-cm abdominal aortic aneurysm. He says that the procedure was put off due to the patient's uncontrolled blood sugar. Colonoscopy was previously deferred as well due to large AAA. PAST MEDICAL HISTORY: As above. SOCIAL HISTORY: Former smoker. FAMILY HISTORY: Polycystic kidney disease, autosomal dominant. REVIEW OF SYSTEMS: CONSTITUTIONAL: As per HPI. HEENT: Denies any dysphagia or odynophagia. RESPIRATORY: Some dyspnea. CARDIOVASCULAR: Denies any overt chest pain, but reports some soreness of his chest and back. GI: The patient with nausea, reports spitting up, but no overt vomiting. : No diarrhea, but has been having soft stools. EXTREMITIES: Denies leg swelling. SKIN: Denies any pruritus. NEURO: Has been feeling lethargic, increased weakness. PHYSICAL EXAMINATION: VITAL SIGNS: Blood pressure 86/57, heart rate 76, respirations 18, temperature 97.7, O2 sat of 100% on 2 liters via nasal cannula. GENERAL: No distress. Conversing coherently in full sentences. HEENT: Moist mucous membranes. Nonicteric. RESPIRATORY: Decreased breath sounds at bases, otherwise clear to auscultation bilaterally. No rales or rhonchi. No wheezes. CARDIOVASCULAR: Heart sounds: Loud systolic murmur. Regular rate and rhythm. No rubs, no gallops. GI: Abdomen soft, large palpable mass present. : No bladder distention. SKIN: Warm. No cyanosis. MUSCULOSKELETAL: Left arm AV fistula with good thrill. PSYCHIATRIC: Normal mood, normal affect. NEURO: Slight tremor of outstretched hands noted. No overt asterixis. LABORATORY DATA: CBC: WBC 6.3, hemoglobin 8.8, hematocrit 27.3, platelets 207. Chemistry panel: Sodium 129, potassium 5.3, chloride 95, bicarb 14, BUN 115, creatinine 7.4, glucose 291, calcium 6.5, magnesium 1.8, albumin 3.1. ProBNP 20,300. ABG: pH 7.22, pCO2 of 39, lactate 2.3. Chest x-ray directly visualized showing right-sided pleural effusion. Renal ultrasound images reviewed showing some hydronephrosis of transplanted kidney. ASSESSMENT AND PLAN: 1. Acute renal failure, acute kidney injury, on chronic kidney disease for patient with failing transplanted renal allograft; however, baseline serum creatinine was approximately 4.0 just 3 months ago; suspect prerenal etiology of acute kidney injury likely in the setting of severe sepsis with patient mildly hypotensive. The patient with marked electrolyte abnormalities with mild hyperkalemia and increased anion gap metabolic acidosis; however, no urgent indication to initiate hemodialysis at this time, especially since aggressive dialysis may cause dialysis disequilibrium in a chronically uremic patient. For now, we will place the patient on gentle IV fluids with half normal saline with 75 mEq of sodium bicarb running at 75 mL per hour. Repeat chemistry panel this evening. Avoid nephrotoxic agents. If no improvement by tomorrow, We will initiate hemodialysis. 2. Transplanted kidney, hydronephrosis. Discussed with radiologist today. Findings are relatively stable when compared to previous imaging studies, does not explain worsening renal function. We will obtain Urology consult, so that the patient can follow up as outpatient. 3. Hypocalcemia in the setting of worsening renal function. QTC is not particularly prolonged. We will give p.o. calcitriol 0.5 mcg daily as well as supplement p.o. calcium carbonate. We will hold cinacalcet as this contributes to hypocalcemia. Check phos. 4. Sepsis. The patient with possible pneumonia, currently hypotensive, just started getting intravenous fluids. So, we will see how he responds. The patient is being given vancomycin and Zosyn; should dose vancomycin 1 g daily, but check random level tomorrow morning before re-dosing. Zosyn dose should be 2.25 g every 8 hours for creatinine clearance less than 20. 5. Immunosuppression. The patient is on tacrolimus 2 mg in a.m. and 1 mg in p.m. as well as CellCept and prednisone. We will hold CellCept for now in the setting of severe sepsis. Checking tacrolimus level. 6. Abdominal aortic aneurysm of over 8 cm, unclear whether the patient has been regularly following up with vascular surgery. He is in impending surgical emergency, but imaging today shows that the size of aneurysm is stable, needs close followup with vascular surgery. 7. Anemia, likely due to chronic kidney disease, has been getting intravenous iron and EPO. We will check iron studies. Thank you for this referral. We will be following up closely. Dandy Wheeler MD
[2018-03-04] MEDS: Pantoprazole 40 mg EC Tab PO SCH (06:38)
[2018-03-04 07:39] LABS: GRAN # 4.13 (1.4-6.5); GRAN % 95.6 % (50.0-68.0); HEMOGLOBIN 8.7 g/dL (14.0-18.0); LYMPH # 0.1 (1.2-3.4); MEAN CELL VOLUME 71.3 fl (80.0-105.0); MEAN CORPUSCULAR HEMOGLOBIN 22.9 pg (25.0-35.0); MEAN CORPUSCULAR HGB CONC 32.1 g/dl (31.0-37.0); MONO # 0.1 (0.1-0.6); MONO % 1.4 % (1.0-6.0); PLATELET COUNT 147 10^3/uL (120.0-450.0); RED CELL DISTRIBUTION WIDTH 19.3 % (11.5-14.5); WHITE BLOOD COUNT 4.3 10^3/ul (4.5-11.0)
--- NOTE | 2018-03-04 07:45 | CP.PCM.CON ---
<MooknellyDave - Last Filed: 03/04/18 17:38> History of Present Illness - History of Present Illness History of Present Illness: GI Fellow PGY4, consult note. Carlo Goodwin is a 67M with extensive medical history presenting with hypotension. We were consulted for chronic anemia. Patient has not had AAA procedure and therefore could not have colonoscopy. He denies black stool, vomiting, bleeding, abdominal pain. He admits some weight loss but cannot quantify. 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 Denies EtOH. 12pt ROS completed and neg except for above. Past Patient History - Infectious Disease Hx of Infectious Diseases: None - Past Medical History & Family History Past Medical History?: Yes - Past Social History Smoking Status: Former Smoker - CARDIAC Hx Cardiac Disorders: Yes (CAD) Hx Hypertension: Yes Hx Peripheral Edema: Yes (+1 pitting ble) Other/Comment: Aortic Valve Replacement at [facility], aortic abdominal aneurysm unable to do sx at present time - PULMONARY Hx Respiratory Disorders: No - NEUROLOGICAL Hx Neurological Disorder: No - HEENT Hx HEENT Problems: Yes (wears glasses) - RENAL Hx Chronic Kidney Disease: Yes (stage iv) Hx Dialysis: Yes (left arm fistula) Other/Comment: Kidney transplant at [facility] in [facility], last dialysis oct 08 2006, hypertensive chronic kidney disease - ENDOCRINE/METABOLIC Hx Endocrine Disorders: Yes Hx Diabetes Mellitus Type 2: Yes - HEMATOLOGICAL/ONCOLOGICAL Hx Blood Disorders: Yes (blood transfusions most recent 3 wks ago) Hx Anemia: Yes (iron deficiency) Other/Comment: dx with anemia 2 yrs ago unable to get a colonoscopy due to aaa, may try new procedure in [place] as per pt, receives iron infusions from pt's , dr scales in [place] - INTEGUMENTARY Hx Dermatological Problems: Yes Other/Comment: multiple skin discolorations ble, pt refusing for me to removd his anti embolism stockings/shoes and socks to assess feet, pt stated "I'm embarrassed. I plan to see foot dr within a few weeks but I have had other health problems." pt stated. - MUSCULOSKELETAL/RHEUMATOLOGICAL Hx Musculoskeletal Disorders: Yes Hx Unsteady Gait: Yes - GASTROINTESTINAL Hx Gastrointestinal Disorders: Yes (poor appetite weight loss) Other/Comment: AAA, chronic hiccups - GENITOURINARY/GYNECOLOGICAL Hx Genitourinary Disorders: Yes Other/Comment: bilateral inguinal hernias (repaired) - PSYCHIATRIC Hx Psychophysiologic Disorder: No - SURGICAL HISTORY Hx Surgeries: Yes Hx Kidney Transplant: Yes (last hd oct 08 2006) Other/Comment: Aortic valve replacement, left forearm fistula not is use since m 2006 - ANESTHESIA Hx Anesthesia: Yes Hx Anesthesia Reactions: No Hx Malignant Hyperthermia: No Meds Allergies/Adverse Reactions: Allergies Allergy/AdvReac Type Severity Reaction Status Date / Time No Known Allergies Allergy Verified 03/03/18 09:25 - Medications Medications: Current Medications Acetaminophen (Tylenol 325mg Tab) 650 mg PO Q6 PRN PRN Reason: TEMP>=99.5F Acetaminophen (Tylenol 650 Mg Supp) 650 mg RC Q6H PRN PRN Reason: TEMP>=99.5F Acetaminophen (Tylenol 650 Mg Supp) 650 mg RC Q6H PRN PRN Reason: Headache Acetaminophen (Tylenol 325mg Tab) 650 mg PO Q6H PRN PRN Reason: Headache Albumin Human (Albumin Human 25% (25 Gm/100 Ml)) 25 gm IV Q8H [facility] Stop: 03/04/18 15:46 Last Admin: 03/04/18 00:26 Dose: 25 gm Atorvastatin Calcium (Lipitor) 20 mg PO DIN [facility] Last Admin: 03/03/18 17:58 Dose: 20 mg Benzonatate (Tessalon Perles) 200 mg PO TID [facility] Calcitriol (Rocaltrol) 0.5 mcg PO DAILY [facility] Last Admin: 03/03/18 19:11 Dose: 0.5 mcg Calcium Carbonate (Oscal) 1,000 mg PO Q6 [facility] Last Admin: 03/04/18 06:38 Dose: 1,000 mg Cinacalcet (Sensipar) 30 mg PO DAILY [facility] Docusate Sodium (Colace) 100 mg PO TID [facility] Ezetimibe (Zetia) 10 mg PO DAILY [facility] Ferrous Gluconate (Fergon) 324 mg PO BID [facility] Last Admin: 03/03/18 19:12 Dose: 324 mg Hydrocortisone Sodium Succinate (Solu-Cortef) 50 mg IVP Q6H [facility] Last Admin: 03/04/18 06:37 Dose: 50 mg Sodium Bicarbonate 75 meq/ (Sodium Chloride) 1,075 mls @ 75 mls/hr IV .[id number] [facility] Stop: 03/04/18 16:24 Last Admin: 03/04/18 06:38 Dose: 75 mls/hr Doxycycline Hyclate 100 mg/ (Sodium Chloride) 100 mls @ 100 mls/hr IVPB Q12 [facility]; Protocol Last Admin: 03/03/18 22:58 Dose: 100 mls/hr Meropenem 500 mg/ Sodium (Chloride) 50 mls @ 100 mls/hr IVPB Q24H [facility]; Protocol Stop: 03/10/18 22:46 Last Admin: 03/03/18 23:19 Dose: 100 mls/hr Insulin Human Lispro (Humalog Med) 0 units SC AC [facility]; Protocol Last Admin: 03/03/18 17:58 Dose: 5 unit Levalbuterol HCl (Xopenex) 0.63 mg IH [id number] [facility] Last Admin: 03/04/18 07:02 Dose: 0.63 mg Midodrine (Proamatine) 5 mg PO TID [facility] Last Admin: 03/04/18 01:38 Dose: 5 mg Ondansetron HCl (Zofran Inj) 4 mg IVP Q4H PRN PRN Reason: Nausea/Vomiting Pantoprazole Sodium (Protonix Ec Tab) 40 mg PO DAILY [facility] Pantoprazole Sodium (Protonix Ec Tab) 40 mg PO 0600 [facility] Last Admin: 03/04/18 06:38 Dose: 40 mg Polyethylene Glycol (Miralax) 17 gm PO BID [facility] Tacrolimus (Prograf Cap) 1 mg PO QPM [facility] Last Admin: 03/03/18 19:12 Dose: 1 mg Tacrolimus (Prograf Cap) 2 mg PO QAM [facility] Physical Exam - Constitutional Appears: No Acute Distress, Cachectic, Chronically Ill - Head Exam Head Exam: NORMAL INSPECTION - Eye Exam Eye Exam: EOMI, Normal appearance - ENT Exam ENT Exam: Mucous Membranes Moist - Respiratory Exam Respiratory Exam: Clear to Auscultation Bilateral, NORMAL BREATHING PATTERN - Cardiovascular Exam Cardiovascular Exam: REGULAR RHYTHM, +S1, +S2 - GI/Abdominal Exam GI & Abdominal Exam: Distended, Normal Bowel Sounds, Soft. absent: Organomegaly, Tenderness - Rectal Exam Rectal Exam: NORMAL INSPECTION. absent: Black Stool, Bloody Stool - Neurological Exam Neurological exam: Alert, Oriented x3 - Psychiatric Exam Psychiatric exam: Normal Affect, Normal Mood - Skin Skin Exam: Dry, Normal Color Results - Vital Signs Recent Vital Signs: Last Vital Signs Temp 97.8 F 03/04/18 06:00 Pulse 93 H 03/04/18 06:20 Resp 30 H 03/04/18 06:20 BP 99/57 L 03/04/18 06:00 Pulse Ox 100 03/04/18 06:20 - Labs Result Diagrams: 03/04/18 06:40 03/04/18 10:00 Labs: Laboratory Results - last 24 hr 03/03/18 03/03/18 03/03/18 10:20 10:20 10:20 WBC 6.3 RBC 3.86 Hgb 8.8 L D Hct 27.3 L MCV 70.7 L D MCH 22.8 L MCHC 32.2 RDW 19.2 H Plt Count 207 Gran % 84.3 H Lymph % (Auto) 12.1 L [place] % (Auto) 3.0 Eos % (Auto) 0.6 L Baso % (Auto) 0.0 Gran # 5.30 Lymph # (Auto) 0.8 L [place] # (Auto) 0.2 Eos # (Auto) 0.0 Baso # (Auto) 0.00 Neutrophils % (Manual) 85 H Band Neutrophils % 1 Lymphocytes % (Manual) 9 L Monocytes % (Manual) 3 Eosinophils % (Manual) 2 Platelet Evaluation Normal Poikilocytosis (manual 2+ Anisocytosis (manual) 1+ Microcytosis (manual) 1+ [place] Cells Slight Acanthocytes (Spur) Slight Schistocytes Moderate PT 12.8 H INR 1.11 APTT 27.9 pO2 VBG pH VBG pCO2 VBG HCO3 VBG Total CO2 VBG O2 Sat (Calc) VBG Base Excess VBG Potassium Glucose Lactate FiO2 Sodium 129 L Potassium 5.3 H Chloride 95 L Carbon Dioxide 14 L Anion Gap 25 H BUN 115 H Creatinine 7.4 H* D Est GFR ( Amer) 9 Est GFR (Non-Af Amer) 7 POC Glucose (mg/dL) Random Glucose 291 H Calcium 6.5 L* Phosphorus Magnesium 1.8 Total Bilirubin 0.3 AST 21 ALT 17 Alkaline Phosphatase 78 NT-Pro-B Natriuret Pep Total Protein 5.7 L Albumin 3.1 Globulin 2.6 Albumin/Globulin Ratio 1.2 Venous Blood Potassium Random Vancomycin Blood Type Antibody Screen BBK History Checked 03/03/18 03/03/18 03/03/18 10:20 11:00 14:25 WBC RBC Hgb Hct MCV MCH MCHC RDW Plt Count Gran % Lymph % (Auto) [place] % (Auto) Eos % (Auto) Baso % (Auto) Gran # Lymph # (Auto) [place] # (Auto) Eos # (Auto) Baso # (Auto) Neutrophils % (Manual) Band Neutrophils % Lymphocytes % (Manual) Monocytes % (Manual) Eosinophils % (Manual) Platelet Evaluation Poikilocytosis (manual Anisocytosis (manual) Microcytosis (manual) [place] Cells Acanthocytes (Spur) Schistocytes PT INR APTT pO2 45 VBG pH 7.22 L VBG pCO2 39.0 L VBG HCO3 16.0 L VBG Total CO2 17.2 L VBG O2 Sat (Calc) 81.1 H VBG Base Excess -11.1 L VBG Potassium 4.7 Glucose 296 H Lactate 2.3 H FiO2 21.0 Sodium 126.0 L Potassium Chloride 95.0 L Carbon Dioxide Anion Gap BUN Creatinine Est GFR ( Amer) Est GFR (Non-Af Amer) POC Glucose (mg/dL) Random Glucose Calcium Phosphorus Magnesium Total Bilirubin AST ALT Alkaline Phosphatase NT-Pro-B Natriuret Pep 97741 H Total Protein Albumin Globulin Albumin/Globulin Ratio Venous Blood Potassium 4.7 Random Vancomycin Blood Type O POSITIVE Antibody Screen Negative BBK History Checked Patient has bt 03/03/18 03/03/18 03/03/18 17:28 20:13 20:13 WBC RBC Hgb Hct MCV MCH MCHC RDW Plt Count Gran % Lymph % (Auto) [place] % (Auto) Eos % (Auto) Baso % (Auto) Gran # Lymph # (Auto) [place] # (Auto) Eos # (Auto) Baso # (Auto) Neutrophils % (Manual) Band Neutrophils % Lymphocytes % (Manual) Monocytes % (Manual) Eosinophils % (Manual) Platelet Evaluation Poikilocytosis (manual Anisocytosis (manual) Microcytosis (manual) [place] Cells Acanthocytes (Spur) Schistocytes PT INR APTT pO2 36 VBG pH 7.27 L VBG pCO2 32.0 L VBG HCO3 14.7 L VBG Total CO2 15.7 L VBG O2 Sat (Calc) 76.6 H VBG Base Excess -11.0 L VBG Potassium 4.2 Glucose 168 H Lactate 1.6 FiO2 21.0 Sodium 129.0 L 129 L Potassium 4.1 Chloride 99.0 98 Carbon Dioxide 14 L Anion Gap 22 H BUN 113 H Creatinine 6.9 H Est GFR ( Amer) 10 Est GFR (Non-Af Amer) 8 POC Glucose (mg/dL) 269 H Random Glucose 156 H Calcium 6.1 L* Phosphorus 5.8 H Magnesium 1.6 L Total Bilirubin 0.1 L AST 17 ALT 17 Alkaline Phosphatase 70 NT-Pro-B Natriuret Pep Total Protein 5.0 L Albumin 2.6 L Globulin 2.4 Albumin/Globulin Ratio 1.1 Venous Blood Potassium 4.2 Random Vancomycin Blood Type Antibody Screen BBK History Checked 03/03/18 03/04/18 20:13 06:40 WBC 4.3 L D RBC 3.80 Hgb 8.7 L Hct 27.1 L MCV 71.3 L MCH 22.9 L MCHC 32.1 RDW 19.3 H Plt Count 147 Gran % 95.6 H Lymph % (Auto) 3.0 L [place] % (Auto) 1.4 Eos % (Auto) 0.0 L Baso % (Auto) 0.0 Gran # 4.13 Lymph # (Auto) 0.1 L [place] # (Auto) 0.1 Eos # (Auto) 0.0 Baso # (Auto) 0.00 Neutrophils % (Manual) Band Neutrophils % Lymphocytes % (Manual) Monocytes % (Manual) Eosinophils % (Manual) Platelet Evaluation Poikilocytosis (manual Anisocytosis (manual) Microcytosis (manual) [place] Cells Acanthocytes (Spur) Schistocytes PT INR APTT pO2 VBG pH VBG pCO2 VBG HCO3 VBG Total CO2 VBG O2 Sat (Calc) VBG Base Excess VBG Potassium Glucose Lactate FiO2 Sodium Potassium Chloride Carbon Dioxide Anion Gap BUN Creatinine Est GFR ( Amer) Est GFR (Non-Af Amer) POC Glucose (mg/dL) Random Glucose Calcium Phosphorus Magnesium Total Bilirubin AST ALT Alkaline Phosphatase NT-Pro-B Natriuret Pep Total Protein Albumin Globulin Albumin/Globulin Ratio Venous Blood Potassium Random Vancomycin 24.4 Blood Type Antibody Screen BBK History Checked Assessment & Plan - Assessment and Plan (Free Text) Assessment: #Chronic Anemia #Hypotension #PCKD s/p transplant 2016 #AAA ~8cm #T2DM #AVR #HTN #Pulmonary HTN #CHF PLAN: -Continue care per ICU -Now on Dialysis -No signs of GI bleeding -Recommend Colonoscopy as outpatient after AAA addressed -Request records regarding last colonscopy - Date & Time Date: 03/04/18 Time: 17:38 <Mac Cordova V - Last Filed: 03/04/18 22:08> Meds - Medications Medications: Current Medications Acetaminophen (Tylenol 325mg Tab) 650 mg PO Q6 PRN PRN Reason: TEMP>=99.5F Acetaminophen (Tylenol 650 Mg Supp) 650 mg RC Q6H PRN PRN Reason: TEMP>=99.5F Acetaminophen (Tylenol 650 Mg Supp) 650 mg RC Q6H PRN PRN Reason: Headache Acetaminophen (Tylenol 325mg Tab) 650 mg PO Q6H PRN PRN Reason: Headache Atorvastatin Calcium (Lipitor) 20 mg PO DIN [facility] Last Admin: 03/04/18 18:30 Dose: 20 mg Benzonatate (Tessalon Perles) 200 mg PO TID [facility] Last Admin: 03/04/18 18:41 Dose: 200 mg Calcitriol (Rocaltrol) 0.5 mcg PO DAILY [facility] Last Admin: 03/04/18 14:10 Dose: 0.5 mcg Calcium Acetate (Phoslo) 667 mg PO WM [facility] Last Admin: 03/04/18 18:31 Dose: 667 mg Calcium Carbonate (Oscal) 500 mg PO BID [facility] Last Admin: 03/04/18 18:31 Dose: 500 mg Cinacalcet (Sensipar) 30 mg PO DAILY [facility] Docusate Sodium (Colace) 100 mg PO TID [facility] Last Admin: 03/04/18 18:27 Dose: 100 mg Ezetimibe (Zetia) 10 mg PO DAILY [facility] Last Admin: 03/04/18 14:04 Dose: 10 mg Ferrous Gluconate (Fergon) 324 mg PO BID [facility] Last Admin: 03/04/18 18:28 Dose: 324 mg Hydrocortisone Sodium Succinate (Solu-Cortef) 50 mg IVP Q6H [facility] Last Admin: 03/04/18 18:39 Dose: 50 mg Doxycycline Hyclate 100 mg/ (Sodium Chloride) 100 mls @ 100 mls/hr IVPB Q12 [facility]; Protocol Last Admin: 03/04/18 21:03 Dose: 100 mls/hr Meropenem 500 mg/ Sodium (Chloride) 50 mls @ 100 mls/hr IVPB Q24H [facility]; Protocol Stop: 03/10/18 22:46 Last Admin: 03/03/18 23:19 Dose: 100 mls/hr Insulin Human Lispro (Humalog High) 0 units SC ACHS [facility]; Protocol Last Admin: 03/04/18 21:46 Dose: Not Given Levalbuterol HCl (Xopenex) 0.63 mg IH [id number] [facility] Last Admin: 03/04/18 19:50 Dose: 0.63 mg Midodrine (Proamatine) 5 mg PO TID [facility] Last Admin: 03/04/18 18:32 Dose: 5 mg Ondansetron HCl (Zofran Inj) 4 mg IVP Q4H PRN PRN Reason: Nausea/Vomiting Pantoprazole Sodium (Protonix Ec Tab) 40 mg PO 0600 [facility] Last Admin: 03/04/18 06:38 Dose: 40 mg Polyethylene Glycol (Miralax) 17 gm PO BID [facility] Last Admin: 03/04/18 14:33 Dose: Not Given Tacrolimus (Prograf Cap) 1 mg PO QPM [facility] Last Admin: 03/04/18 18:33 Dose: 1 mg Tacrolimus (Prograf Cap) 2 mg PO QAM [facility] Last Admin: 03/04/18 14:19 Dose: 2 mg Results - Vital Signs Recent Vital Signs: Last Vital Signs Temp 97.8 F 03/04/18 06:00 Pulse 98 H 03/04/18 19:00 Resp 41 H 03/04/18 07:40 BP 109/49 L 03/04/18 07:00 Pulse Ox 100 03/04/18 07:40 - Labs Result Diagrams: 03/04/18 06:40 03/04/18 10:00 Labs: Laboratory Results - last 24 hr 03/03/18 03/03/18 03/03/18 10:30 10:30 20:13 WBC RBC Hgb Hct MCV MCH MCHC RDW Plt Count Gran % Lymph % (Auto) [place] % (Auto) Eos % (Auto) Baso % (Auto) Gran # Lymph # (Auto) [place] # (Auto) Eos # (Auto) Baso # (Auto) pCO2 pO2 HCO3 ABG pH ABG Total CO2 ABG O2 Saturation ABG O2 Content ABG Base Excess ABG Hemoglobin ABG Carboxyhemoglobin POC ABG HHb (Measured) ABG Methemoglobin ABG O2 Capacity Hgb O2 Saturation FiO2 Sodium Potassium Chloride Carbon Dioxide Anion Gap BUN Creatinine Est GFR ( Amer) Est GFR (Non-Af Amer) POC Glucose (mg/dL) Random Glucose Hemoglobin A1c Lactic Acid Calcium Phosphorus Magnesium Total Bilirubin Direct Bilirubin AST ALT Alkaline Phosphatase Total Protein Albumin Globulin Albumin/Globulin Ratio 25-OH Vitamin D Total Procalcitonin 150.03 H PTH Intact Whole Molec 469 H Tacrolimus (LC/MS/MS) 15.5 Hep Bs Antigen Hep Bs Antibody Hep B Core IgM Ab 03/04/18 03/04/18 03/04/18 02:30 06:30 06:40 WBC 4.3 L D RBC 3.80 Hgb 8.7 L Hct 27.1 L MCV 71.3 L MCH 22.9 L MCHC 32.1 RDW 19.3 H Plt Count 147 Gran % 95.6 H Lymph % (Auto) 3.0 L [place] % (Auto) 1.4 Eos % (Auto) 0.0 L Baso % (Auto) 0.0 Gran # 4.13 Lymph # (Auto) 0.1 L [place] # (Auto) 0.1 Eos # (Auto) 0.0 Baso # (Auto) 0.00 pCO2 pO2 HCO3 ABG pH ABG Total CO2 ABG O2 Saturation ABG O2 Content ABG Base Excess ABG Hemoglobin ABG Carboxyhemoglobin POC ABG HHb (Measured) ABG Methemoglobin ABG O2 Capacity Hgb O2 Saturation FiO2 Sodium Potassium Chloride Carbon Dioxide Anion Gap BUN Creatinine Est GFR ( Amer) Est GFR (Non-Af Amer) POC Glucose (mg/dL) 284 H Random Glucose Hemoglobin A1c Lactic Acid Calcium Phosphorus Magnesium Total Bilirubin Direct Bilirubin AST ALT Alkaline Phosphatase Total Protein Albumin Globulin Albumin/Globulin Ratio 25-OH Vitamin D Total Procalcitonin PTH Intact Whole Molec Tacrolimus (LC/MS/MS) Hep Bs Antigen Negative Hep Bs Antibody Hep B Core IgM Ab Negative 03/04/18 03/04/18 03/04/18 06:40 06:40 06:40 WBC RBC Hgb Hct MCV MCH MCHC RDW Plt Count Gran % Lymph % (Auto) [place] % (Auto) Eos % (Auto) Baso % (Auto) Gran # Lymph # (Auto) [place] # (Auto) Eos # (Auto) Baso # (Auto) pCO2 pO2 HCO3 ABG pH ABG Total CO2 ABG O2 Saturation ABG O2 Content ABG Base Excess ABG Hemoglobin ABG Carboxyhemoglobin POC ABG HHb (Measured) ABG Methemoglobin ABG O2 Capacity Hgb O2 Saturation FiO2 Sodium 131 L Potassium 5.3 H Chloride 94 L Carbon Dioxide 11 L Anion Gap 31 H BUN 119 H Creatinine 6.6 H Est GFR ( Amer) 10 Est GFR (Non-Af Amer) 8 POC Glucose (mg/dL) Random Glucose 288 H Hemoglobin A1c 10.4 H D Lactic Acid Calcium 7.5 L Phosphorus 6.9 H Magnesium 2.1 Total Bilirubin 0.4 Direct Bilirubin 0.4 AST 26 ALT 13 Alkaline Phosphatase 87 Total Protein 5.9 Albumin 3.5 Globulin 2.4 Albumin/Globulin Ratio 1.5 25-OH Vitamin D Total 35.6 Procalcitonin PTH Intact Whole Molec Tacrolimus (LC/MS/MS) Hep Bs Antigen Hep Bs Antibody Hep B Core IgM Ab 03/04/18 03/04/18 03/04/18 08:05 08:05 08:30 WBC RBC Hgb Hct MCV MCH MCHC RDW Plt Count Gran % Lymph % (Auto) [place] % (Auto) Eos % (Auto) Baso % (Auto) Gran # Lymph # (Auto) [place] # (Auto) Eos # (Auto) Baso # (Auto) pCO2 19 L* pO2 120.0 H HCO3 9.1 L* ABG pH 7.29 L ABG Total CO2 9.7 L ABG O2 Saturation 98.0 ABG O2 Content 10.8 L ABG Base Excess -15.8 L ABG Hemoglobin 7.8 L ABG Carboxyhemoglobin 0.7 POC ABG HHb (Measured) 2.0 ABG Methemoglobin 1.1 ABG O2 Capacity 11.0 L Hgb O2 Saturation 96.1 FiO2 28.0 Sodium Potassium Chloride Carbon Dioxide Anion Gap BUN Creatinine Est GFR ( Amer) Est GFR (Non-Af Amer) POC Glucose (mg/dL) 332 H Random Glucose Hemoglobin A1c Lactic Acid Calcium Phosphorus Magnesium Total Bilirubin Direct Bilirubin AST ALT Alkaline Phosphatase Total Protein Albumin Globulin Albumin/Globulin Ratio 25-OH Vitamin D Total Procalcitonin PTH Intact Whole Molec Tacrolimus (LC/MS/MS) Hep Bs Antigen Hep Bs Antibody Indeterminate Hep B Core IgM Ab 03/04/18 03/04/18 03/04/18 10:00 12:32 12:45 WBC RBC Hgb Hct MCV MCH MCHC RDW Plt Count Gran % Lymph % (Auto) [place] % (Auto) Eos % (Auto) Baso % (Auto) Gran # Lymph # (Auto) [place] # (Auto) Eos # (Auto) Baso # (Auto) pCO2 pO2 HCO3 ABG pH ABG Total CO2 ABG O2 Saturation ABG O2 Content ABG Base Excess ABG Hemoglobin ABG Carboxyhemoglobin POC ABG HHb (Measured) ABG Methemoglobin ABG O2 Capacity Hgb O2 Saturation FiO2 Sodium 132 Potassium 4.2 Chloride 94 L Carbon Dioxide 10 L Anion Gap 32 H BUN 116 H Creatinine 7.1 H Est GFR ( Amer) 9 Est GFR (Non-Af Amer) 8 POC Glucose (mg/dL) 159 H Random Glucose 304 H* Hemoglobin A1c Lactic Acid 0.7 Calcium 7.5 L Phosphorus 6.9 H Magnesium 2.0 Total Bilirubin Direct Bilirubin AST ALT Alkaline Phosphatase Total Protein Albumin Globulin Albumin/Globulin Ratio 25-OH Vitamin D Total Procalcitonin PTH Intact Whole Molec Tacrolimus (LC/MS/MS) Hep Bs Antigen Hep Bs Antibody Hep B Core IgM Ab 03/04/18 03/04/18 17:16 21:33 WBC RBC Hgb Hct MCV MCH MCHC RDW Plt Count Gran % Lymph % (Auto) [place] % (Auto) Eos % (Auto) Baso % (Auto) Gran # Lymph # (Auto) [place] # (Auto) Eos # (Auto) Baso # (Auto) pCO2 pO2 HCO3 ABG pH ABG Total CO2 ABG O2 Saturation ABG O2 Content ABG Base Excess ABG Hemoglobin ABG Carboxyhemoglobin POC ABG HHb (Measured) ABG Methemoglobin ABG O2 Capacity Hgb O2 Saturation FiO2 Sodium Potassium Chloride Carbon Dioxide Anion Gap BUN Creatinine Est GFR ( Amer) Est GFR (Non-Af Amer) POC Glucose (mg/dL) 220 H 185 H Random Glucose Hemoglobin A1c Lactic Acid Calcium Phosphorus Magnesium Total Bilirubin Direct Bilirubin AST ALT Alkaline Phosphatase Total Protein Albumin Globulin Albumin/Globulin Ratio 25-OH Vitamin D Total Procalcitonin PTH Intact Whole Molec Tacrolimus (LC/MS/MS) Hep Bs Antigen Hep Bs Antibody Hep B Core IgM Ab Attending/Attestation - Attestation I have personally seen and examined this patient.: Yes I have fully participated in the care of the patient.: Yes I have reviewed all pertinent clinical information: Yes Notes (Text): This is an addendum to GI consult report dictated by the GI Fellow.The patient was seen and examined earlier. Medical records, lab studies, imagings were reviewed. Last 24 hours events reviewed. Agreed with the above treatment plan as outlined in GI Fellow 's notes with the addition of the following This patient has a large AAA being evaluated by IR/Vascular surgery Very high risk for colonoscopy in view of this very large AAA measuring 8.3 cm History of anemia probably multi factorial Chronic kidney disease Patient had EGD done in March 2017 in [facility] Recommend 1. To get copies of his previous EGD reports 2. Empiric PPI therapy - consider reducing the dose to 20mg in view of renal failure 3. Followup HCT 4. Virtual colonoscopy, but patient was given detailed information to have the test done as an outpatient patient did not comply with recommendation 5. In view of this large aneurism, even if the polyp is found, therapeutic intervention will be a challenge and involve a high risk for AAA rupture Discussed with ICU team 03/04/18 22:01
[2018-03-04 07:53] LABS: ALB/GLOB RATIO 1.5 (1.1-1.8); ALBUMIN 3.5 g/dL (3.0-4.8); BILIRUBIN,DIRECT 0.4 mg/dL (0.0-0.4); CALCIUM 7.5 mg/dL (8.4-10.5)
[2018-03-04 08:21] LABS: ARTERIAL BLOOD GAS HEMOGLOBIN 7.8 g/dL (11.7-17.4); ARTERIAL BLOOD GAS O2 CONTENT 10.8 ML/dl (15-23); ARTERIAL BLOOD GAS PH 7.29 (7.35-7.45); ARTERIAL BLOOD GAS TCO2 9.7 mmol.L (22-28)
[2018-03-04 08:23] LABS: ARTERIAL BLOOD GAS HCO3 9.1 mmol/L (21-28); ARTERIAL BLOOD GAS PCO2 19 mm/Hg (35-45)
[2018-03-04] MEDS: Insulin Lispro (humaLOG) MEDIUM Coverage SC SCH (08:32)
--- NOTE | 2018-03-04 09:22 | CP.CCUPN ---
<Yamilka Lowery - Last Filed: 03/04/18 11:11> CCU Subjective - Physician Review Events Since Last Encounter (Free Text): 0 03/04/18 09:19 Subjective (Free Text): Yamilka Lowery, PGY-1, CCU Progress Note for Dr. Murray Patient seen and examined at bedside. No overnight events reported. Patient reports weakness and improved shortness of breath with xopenex treatment. Patient denies, headache, dizziness, fever, chest pain, back pain, heart palpitations, wheezing, cough, nausea, vomiting, constipation, diarrhea, dysuria, hematuria. Critical Care Time Spent (in minutes): 60 CCU Objective - Vital Signs / Intake & Output Vital Signs (Last 4 hours): Vital Signs Temp Pulse Resp BP Pulse Ox 03/04/18 07:40 94 H 41 H 100 03/04/18 07:30 97 H 30 H 100 03/04/18 07:20 95 H 27 H 100 03/04/18 07:10 95 H 28 H 100 03/04/18 07:00 95 H 41 H 109/49 L 100 03/04/18 06:50 96 H 36 H 100 03/04/18 06:40 95 H 30 H 100 03/04/18 06:30 97 H 27 H 100 03/04/18 06:20 93 H 30 H 100 03/04/18 06:10 94 H 33 H 100 03/04/18 06:00 97.8 F 92 H 27 H 99/57 L 100 03/04/18 05:50 96 H 36 H 100 03/04/18 05:40 99 H 34 H 100 03/04/18 05:30 96 H 32 H 100 03/04/18 05:20 93 H 28 H 100 Intake and Output (Last 8hrs): Intake & Output 03/03/18 03/04/18 03/04/18 22:59 06:59 14:59 Intake Total 1750 Output Total 0 Balance 1750 Weight 110 lb 111 lb 9.6 oz Intake: IV 1650 Right Forearm 750 Right Wrist 900 Oral 100 Output: Urine 0 Urine, Voided 0 Other: Voiding Method Urinal # Voids Urine, Voided 1 # Bowel Movements 1 - Physical Exam Head: Positive for: Atraumatic, Normocephalic Pupils: Positive for: PERRL Extroacular Muscles: Positive for: EOMI Conjunctiva: Positive for: Normal Mouth: Positive for: Moist Mucous Membranes Neck: Positive for: Normal Range of Motion Respiratory/Chest: Positive for: Clear to Auscultation, Good Air Exchange, Respiratory Distress, Decreased Breath Sounds (at the bases), Other. Negative for: Accessory Muscle Use, Wheezes, Rales, Retracting, Rhonchi Cardiovascular: Positive for: Regular Rate and Rhythm, Murmurs (systolic ejection murmur), Normal S1, S2 Abdomen: Positive for: Distention (firm). 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 Pt states is not used. He is currently not on dialysis.). Negative for: Cyanosis, Edema Lower Extremity: Positive for: Normal Inspection. Negative for: Edema Neurological: Positive for: GCS=15, CN II-XII Intact, Speech Normal, Motor Func Grossly Intact, Other (MSK +3/5 throughout) Skin: Positive for: Warm, Dry, Normal Color. Negative for: Rashes Psychiatric: Positive for: Alert, Oriented x 3, Normal Insight, Normal Concentration - Medications Active Medications: Active Medications Generic Name Dose Route Start Last Admin Trade Name Freq PRN Reason Stop Dose Admin Acetaminophen 650 mg 03/03/18 19:21 Tylenol 325mg Tab PO Q6 PRN TEMP>=99.5F Acetaminophen 650 mg 03/03/18 19:21 Tylenol 650 Mg Supp RC Q6H PRN TEMP>=99.5F Acetaminophen 650 mg 03/03/18 19:28 Tylenol 650 Mg Supp RC Q6H PRN Headache Acetaminophen 650 mg 03/03/18 19:29 Tylenol 325mg Tab PO Q6H PRN Headache Albumin Human 25 gm 03/03/18 23:45 03/04/18 00:26 Albumin Human 25% (25 Gm/100 Ml) IV 03/04/18 15:46 25 gm Q8H [place] Administration Atorvastatin Calcium 20 mg 03/03/18 17:00 03/03/18 17:58 Lipitor PO 20 mg DIN [place] Administration Benzonatate 200 mg 03/04/18 10:00 Tessalon Perles PO TID [place] Calcitriol 0.5 mcg 03/03/18 15:30 03/03/18 19:11 Rocaltrol PO 0.5 mcg DAILY [place] Administration Calcium Carbonate 1,000 mg 03/03/18 18:45 03/04/18 06:38 Oscal PO 1,000 mg Q6 [place] Administration Cinacalcet 30 mg 03/04/18 10:00 Sensipar PO DAILY [facility] Docusate Sodium 100 mg 03/04/18 10:00 Colace PO TID [place] Ezetimibe 10 mg 03/04/18 10:00 Zetia PO DAILY [facility] Ferrous Gluconate 324 mg 03/03/18 18:00 03/03/18 19:12 Fergon PO 324 mg BID [place] Administration Hydrocortisone Sodium Succinate 50 mg 03/03/18 18:15 03/04/18 06:37 Solu-Cortef IVP 50 mg Q6H [place] Administration Sodium Bicarbonate 75 meq/ 1,075 mls @ 75 mls/hr 03/03/18 11:45 03/04/18 06:38 Sodium Chloride IV 03/04/18 16:24 75 mls/hr .[id number] [place] Administration Doxycycline Hyclate 100 mg/ 100 mls @ 100 mls/hr 03/03/18 22:00 03/03/18 22:58 Sodium Chloride IVPB 100 mls/hr Q12 [place] Administration Protocol Meropenem 500 mg/ Sodium 50 mls @ 100 mls/hr 03/03/18 22:45 03/03/18 23:19 Chloride IVPB 03/10/18 22:46 100 mls/hr Q24H [place] Administration Protocol Insulin Human Lispro 0 units 03/04/18 11:30 Humalog High SC ACHS [facility] Protocol Levalbuterol HCl 0.63 mg 03/03/18 20:00 03/04/18 07:02 Xopenex IH 0.63 mg [id number] [place] Administration Midodrine 5 mg 03/03/18 23:45 03/04/18 01:38 Proamatine PO 5 mg TID [place] Administration Ondansetron HCl 4 mg 03/03/18 19:21 Zofran Inj IVP Q4H PRN Nausea/Vomiting Pantoprazole Sodium 40 mg 03/04/18 06:00 03/04/18 06:38 Protonix Ec Tab PO 40 mg 0600 [place] Administration Polyethylene Glycol 17 gm 03/04/18 10:00 Miralax PO BID [place] Tacrolimus 1 mg 03/03/18 18:00 03/03/18 19:12 Prograf Cap PO 1 mg QPM [place] Administration Tacrolimus 2 mg 03/04/18 10:00 Prograf Cap PO QAM [place] - Patient Studies Lab Studies: Lab Studies 03/04/18 03/04/18 03/04/18 Range/Units 08:05 08:05 06:40 WBC (4.5-11.0) 10^3/ul RBC (3.5-6.1) 10^6/uL Hgb (14.0-18.0) g/dL Hct (42.0-52.0) % MCV (80.0-105.0) fl MCH (25.0-35.0) pg MCHC (31.0-37.0) g/dl RDW (11.5-14.5) % Plt Count (120.0-450.0) 10^3/uL Gran % (50.0-68.0) % Lymph % (Auto) (22.0-35.0) % [place] % (Auto) (1.0-6.0) % Eos % (Auto) (1.5-5.0) % Baso % (Auto) (0.0-3.0) % Gran # (1.4-6.5) Lymph # (Auto) (1.2-3.4) [place] # (Auto) (0.1-0.6) Eos # (Auto) (0.0-0.7) Baso # (Auto) (0.0-2.0) K/mm3 Neutrophils % (Manual) (50.0-70.0) % Band Neutrophils % (0-2) % Lymphocytes % (Manual) (22.0-35.0) % Monocytes % (Manual) (1.0-6.0) % Eosinophils % (Manual) (0.0-3.0) % Platelet Evaluation (NORMAL) Poikilocytosis (manual Anisocytosis (manual) Microcytosis (manual) [place] Cells Acanthocytes (Spur) Schistocytes PT (9.4-12.5) SECONDS INR APTT (25.1-36.5) Seconds pCO2 19 L* (35-45) mm/Hg pO2 120.0 H (30-55) mm/Hg HCO3 9.1 L* (21-28) mmol/L ABG pH 7.29 L (7.35-7.45) ABG Total CO2 9.7 L (22-28) mmol.L ABG O2 Saturation 98.0 (95-98) % ABG O2 Content 10.8 L (15-23) ML/dl ABG Base Excess -15.8 L (-2.0-3.0) mmol/L ABG Hemoglobin 7.8 L (11.7-17.4) g/dL ABG Carboxyhemoglobin 0.7 (0.5-1.5) % POC ABG HHb (Measured) 2.0 (0-5) % ABG Methemoglobin 1.1 (0.0-3.0) % ABG O2 Capacity 11.0 L (16-24) mL/dl VBG pH (7.32-7.43) VBG pCO2 (40-60) VBG HCO3 (21-28) mmol/l VBG Total CO2 (22-28) mmol.L VBG O2 Sat (Calc) (40-65) % VBG Base Excess (0.0-2.0) mmol/L VBG Potassium (3.6-5.2) mmol/L Hgb O2 Saturation 96.1 (95.0-98.0) % Glucose (75-110) mg/dl Lactate (0.7-2.1) mmol/L FiO2 28.0 % Sodium 131 L (132-148) mmol/L Potassium 5.3 H (3.6-5.0) mmol/L Chloride 94 L (98-107) mmol/L Carbon Dioxide 11 L (21-33) mmol/L Anion Gap 31 H (10-20) BUN 119 H (7-21) mg/dL Creatinine 6.6 H (0.8-1.5) mg/dl Est GFR ( Amer) 10 Est GFR (Non-Af Amer) 8 POC Glucose (mg/dL) 332 H (65-110) mg/dL Random Glucose 288 H (70-110) mg/dL Calcium 7.5 L (8.4-10.5) mg/dL Phosphorus 6.9 H (2.5-4.5) mg/dL Magnesium 2.1 (1.7-2.2) mg/dL Total Bilirubin 0.4 (0.2-1.3) mg/dL Direct Bilirubin 0.4 (0.0-0.4) mg/dL AST 26 (17-59) U/L ALT 13 (7-56) U/L Alkaline Phosphatase 87 (38-126) U/L NT-Pro-B Natriuret Pep (0-450) pg/mL Total Protein 5.9 (5.8-8.3) g/dL Albumin 3.5 (3.0-4.8) g/dL Globulin 2.4 gm/dL Albumin/Globulin Ratio 1.5 (1.1-1.8) Venous Blood Potassium (3.6-5.2) mmol/L Random Vancomycin (20-40) ug/mL Blood Type Antibody Screen BBK History Checked 03/04/18 03/04/18 03/03/18 Range/Units 06:40 02:30 20:13 WBC 4.3 L D (4.5-11.0) 10^3/ul RBC 3.80 (3.5-6.1) 10^6/uL Hgb 8.7 L (14.0-18.0) g/dL Hct 27.1 L (42.0-52.0) % MCV 71.3 L (80.0-105.0) fl MCH 22.9 L (25.0-35.0) pg MCHC 32.1 (31.0-37.0) g/dl RDW 19.3 H (11.5-14.5) % Plt Count 147 (120.0-450.0) 10^3/uL Gran % 95.6 H (50.0-68.0) % Lymph % (Auto) 3.0 L (22.0-35.0) % [place] % (Auto) 1.4 (1.0-6.0) % Eos % (Auto) 0.0 L (1.5-5.0) % Baso % (Auto) 0.0 (0.0-3.0) % Gran # 4.13 (1.4-6.5) Lymph # (Auto) 0.1 L (1.2-3.4) [place] # (Auto) 0.1 (0.1-0.6) Eos # (Auto) 0.0 (0.0-0.7) Baso # (Auto) 0.00 (0.0-2.0) K/mm3 Neutrophils % (Manual) (50.0-70.0) % Band Neutrophils % (0-2) % Lymphocytes % (Manual) (22.0-35.0) % Monocytes % (Manual) (1.0-6.0) % Eosinophils % (Manual) (0.0-3.0) % Platelet Evaluation (NORMAL) Poikilocytosis (manual Anisocytosis (manual) Microcytosis (manual) [place] Cells Acanthocytes (Spur) Schistocytes PT (9.4-12.5) SECONDS INR APTT (25.1-36.5) Seconds pCO2 (35-45) mm/Hg pO2 (30-55) mm/Hg HCO3 (21-28) mmol/L ABG pH (7.35-7.45) ABG Total CO2 (22-28) mmol.L ABG O2 Saturation (95-98) % ABG O2 Content (15-23) ML/dl ABG Base Excess (-2.0-3.0) mmol/L ABG Hemoglobin (11.7-17.4) g/dL ABG Carboxyhemoglobin (0.5-1.5) % POC ABG HHb (Measured) (0-5) % ABG Methemoglobin (0.0-3.0) % ABG O2 Capacity (16-24) mL/dl VBG pH (7.32-7.43) VBG pCO2 (40-60) VBG HCO3 (21-28) mmol/l VBG Total CO2 (22-28) mmol.L VBG O2 Sat (Calc) (40-65) % VBG Base Excess (0.0-2.0) mmol/L VBG Potassium (3.6-5.2) mmol/L Hgb O2 Saturation (95.0-98.0) % Glucose (75-110) mg/dl Lactate (0.7-2.1) mmol/L FiO2 % Sodium (132-148) mmol/L Potassium (3.6-5.0) mmol/L Chloride (98-107) mmol/L Carbon Dioxide (21-33) mmol/L Anion Gap (10-20) BUN (7-21) mg/dL Creatinine (0.8-1.5) mg/dl Est GFR ( Amer) Est GFR (Non-Af Amer) POC Glucose (mg/dL) 284 H (65-110) mg/dL Random Glucose (70-110) mg/dL Calcium (8.4-10.5) mg/dL Phosphorus (2.5-4.5) mg/dL Magnesium (1.7-2.2) mg/dL Total Bilirubin (0.2-1.3) mg/dL Direct Bilirubin (0.0-0.4) mg/dL AST (17-59) U/L ALT (7-56) U/L Alkaline Phosphatase (38-126) U/L NT-Pro-B Natriuret Pep (0-450) pg/mL Total Protein (5.8-8.3) g/dL Albumin (3.0-4.8) g/dL Globulin gm/dL Albumin/Globulin Ratio (1.1-1.8) Venous Blood Potassium (3.6-5.2) mmol/L Random Vancomycin 24.4 (20-40) ug/mL Blood Type Antibody Screen BBK History Checked 03/03/18 03/03/18 03/03/18 Range/Units 20:13 20:13 17:28 WBC (4.5-11.0) 10^3/ul RBC (3.5-6.1) 10^6/uL Hgb (14.0-18.0) g/dL Hct (42.0-52.0) % MCV (80.0-105.0) fl MCH (25.0-35.0) pg MCHC (31.0-37.0) g/dl RDW (11.5-14.5) % Plt Count (120.0-450.0) 10^3/uL Gran % (50.0-68.0) % Lymph % (Auto) (22.0-35.0) % [place] % (Auto) (1.0-6.0) % Eos % (Auto) (1.5-5.0) % Baso % (Auto) (0.0-3.0) % Gran # (1.4-6.5) Lymph # (Auto) (1.2-3.4) [place] # (Auto) (0.1-0.6) Eos # (Auto) (0.0-0.7) Baso # (Auto) (0.0-2.0) K/mm3 Neutrophils % (Manual) (50.0-70.0) % Band Neutrophils % (0-2) % Lymphocytes % (Manual) (22.0-35.0) % Monocytes % (Manual) (1.0-6.0) % Eosinophils % (Manual) (0.0-3.0) % Platelet Evaluation (NORMAL) Poikilocytosis (manual Anisocytosis (manual) Microcytosis (manual) [place] Cells Acanthocytes (Spur) Schistocytes PT (9.4-12.5) SECONDS INR APTT (25.1-36.5) Seconds pCO2 (35-45) mm/Hg pO2 36 (30-55) mm/Hg HCO3 (21-28) mmol/L ABG pH (7.35-7.45) ABG Total CO2 (22-28) mmol.L ABG O2 Saturation (95-98) % ABG O2 Content (15-23) ML/dl ABG Base Excess (-2.0-3.0) mmol/L ABG Hemoglobin (11.7-17.4) g/dL ABG Carboxyhemoglobin (0.5-1.5) % POC ABG HHb (Measured) (0-5) % ABG Methemoglobin (0.0-3.0) % ABG O2 Capacity (16-24) mL/dl VBG pH 7.27 L (7.32-7.43) VBG pCO2 32.0 L (40-60) VBG HCO3 14.7 L (21-28) mmol/l VBG Total CO2 15.7 L (22-28) mmol.L VBG O2 Sat (Calc) 76.6 H (40-65) % VBG Base Excess -11.0 L (0.0-2.0) mmol/L VBG Potassium 4.2 (3.6-5.2) mmol/L Hgb O2 Saturation (95.0-98.0) % Glucose 168 H (75-110) mg/dl Lactate 1.6 (0.7-2.1) mmol/L FiO2 21.0 % Sodium 129 L 129.0 L (132-148) mmol/L Potassium 4.1 (3.6-5.0) mmol/L Chloride 98 99.0 (98-107) mmol/L Carbon Dioxide 14 L (21-33) mmol/L Anion Gap 22 H (10-20) BUN 113 H (7-21) mg/dL Creatinine 6.9 H (0.8-1.5) mg/dl Est GFR ( Amer) 10 Est GFR (Non-Af Amer) 8 POC Glucose (mg/dL) 269 H (65-110) mg/dL Random Glucose 156 H (70-110) mg/dL Calcium 6.1 L* (8.4-10.5) mg/dL Phosphorus 5.8 H (2.5-4.5) mg/dL Magnesium 1.6 L (1.7-2.2) mg/dL Total Bilirubin 0.1 L (0.2-1.3) mg/dL Direct Bilirubin (0.0-0.4) mg/dL AST 17 (17-59) U/L ALT 17 (7-56) U/L Alkaline Phosphatase 70 (38-126) U/L NT-Pro-B Natriuret Pep (0-450) pg/mL Total Protein 5.0 L (5.8-8.3) g/dL Albumin 2.6 L (3.0-4.8) g/dL Globulin 2.4 gm/dL Albumin/Globulin Ratio 1.1 (1.1-1.8) Venous Blood Potassium 4.2 (3.6-5.2) mmol/L Random Vancomycin (20-40) ug/mL Blood Type Antibody Screen BBK History Checked 03/03/18 03/03/18 03/03/18 Range/Units 14:25 11:00 10:20 WBC (4.5-11.0) 10^3/ul RBC (3.5-6.1) 10^6/uL Hgb (14.0-18.0) g/dL Hct (42.0-52.0) % MCV (80.0-105.0) fl MCH (25.0-35.0) pg MCHC (31.0-37.0) g/dl RDW (11.5-14.5) % Plt Count (120.0-450.0) 10^3/uL Gran % (50.0-68.0) % Lymph % (Auto) (22.0-35.0) % [place] % (Auto) (1.0-6.0) % Eos % (Auto) (1.5-5.0) % Baso % (Auto) (0.0-3.0) % Gran # (1.4-6.5) Lymph # (Auto) (1.2-3.4) [place] # (Auto) (0.1-0.6) Eos # (Auto) (0.0-0.7) Baso # (Auto) (0.0-2.0) K/mm3 Neutrophils % (Manual) (50.0-70.0) % Band Neutrophils % (0-2) % Lymphocytes % (Manual) (22.0-35.0) % Monocytes % (Manual) (1.0-6.0) % Eosinophils % (Manual) (0.0-3.0) % Platelet Evaluation (NORMAL) Poikilocytosis (manual Anisocytosis (manual) Microcytosis (manual) [place] Cells Acanthocytes (Spur) Schistocytes PT (9.4-12.5) SECONDS INR APTT (25.1-36.5) Seconds pCO2 (35-45) mm/Hg pO2 45 (30-55) mm/Hg HCO3 (21-28) mmol/L ABG pH (7.35-7.45) ABG Total CO2 (22-28) mmol.L ABG O2 Saturation (95-98) % ABG O2 Content (15-23) ML/dl ABG Base Excess (-2.0-3.0) mmol/L ABG Hemoglobin (11.7-17.4) g/dL ABG Carboxyhemoglobin (0.5-1.5) % POC ABG HHb (Measured) (0-5) % ABG Methemoglobin (0.0-3.0) % ABG O2 Capacity (16-24) mL/dl VBG pH 7.22 L (7.32-7.43) VBG pCO2 39.0 L (40-60) VBG HCO3 16.0 L (21-28) mmol/l VBG Total CO2 17.2 L (22-28) mmol.L VBG O2 Sat (Calc) 81.1 H (40-65) % VBG Base Excess -11.1 L (0.0-2.0) mmol/L VBG Potassium 4.7 (3.6-5.2) mmol/L Hgb O2 Saturation (95.0-98.0) % Glucose 296 H (75-110) mg/dl Lactate 2.3 H (0.7-2.1) mmol/L FiO2 21.0 % Sodium 126.0 L (132-148) mmol/L Potassium (3.6-5.0) mmol/L Chloride 95.0 L (98-107) mmol/L Carbon Dioxide (21-33) mmol/L Anion Gap (10-20) BUN (7-21) mg/dL Creatinine (0.8-1.5) mg/dl Est GFR ( Amer) Est GFR (Non-Af Amer) POC Glucose (mg/dL) (65-110) mg/dL Random Glucose (70-110) mg/dL Calcium (8.4-10.5) mg/dL Phosphorus (2.5-4.5) mg/dL Magnesium (1.7-2.2) mg/dL Total Bilirubin (0.2-1.3) mg/dL Direct Bilirubin (0.0-0.4) mg/dL AST (17-59) U/L ALT (7-56) U/L Alkaline Phosphatase (38-126) U/L NT-Pro-B Natriuret Pep 52821 H (0-450) pg/mL Total Protein (5.8-8.3) g/dL Albumin (3.0-4.8) g/dL Globulin gm/dL Albumin/Globulin Ratio (1.1-1.8) Venous Blood Potassium 4.7 (3.6-5.2) mmol/L Random Vancomycin (20-40) ug/mL Blood Type O POSITIVE Antibody Screen Negative BBK History Checked Patient has bt 03/03/18 03/03/18 03/03/18 Range/Units 10:20 10:20 10:20 WBC 6.3 (4.5-11.0) 10^3/ul RBC 3.86 (3.5-6.1) 10^6/uL Hgb 8.8 L D (14.0-18.0) g/dL Hct 27.3 L (42.0-52.0) % MCV 70.7 L D (80.0-105.0) fl MCH 22.8 L (25.0-35.0) pg MCHC 32.2 (31.0-37.0) g/dl RDW 19.2 H (11.5-14.5) % Plt Count 207 (120.0-450.0) 10^3/uL Gran % 84.3 H (50.0-68.0) % Lymph % (Auto) 12.1 L (22.0-35.0) % [place] % (Auto) 3.0 (1.0-6.0) % Eos % (Auto) 0.6 L (1.5-5.0) % Baso % (Auto) 0.0 (0.0-3.0) % Gran # 5.30 (1.4-6.5) Lymph # (Auto) 0.8 L (1.2-3.4) [place] # (Auto) 0.2 (0.1-0.6) Eos # (Auto) 0.0 (0.0-0.7) Baso # (Auto) 0.00 (0.0-2.0) K/mm3 Neutrophils % (Manual) 85 H (50.0-70.0) % Band Neutrophils % 1 (0-2) % Lymphocytes % (Manual) 9 L (22.0-35.0) % Monocytes % (Manual) 3 (1.0-6.0) % Eosinophils % (Manual) 2 (0.0-3.0) % Platelet Evaluation Normal (NORMAL) Poikilocytosis (manual 2+ Anisocytosis (manual) 1+ Microcytosis (manual) 1+ [place] Cells Slight Acanthocytes (Spur) Slight Schistocytes Moderate PT 12.8 H (9.4-12.5) SECONDS INR 1.11 APTT 27.9 (25.1-36.5) Seconds pCO2 (35-45) mm/Hg pO2 (30-55) mm/Hg HCO3 (21-28) mmol/L ABG pH (7.35-7.45) ABG Total CO2 (22-28) mmol.L ABG O2 Saturation (95-98) % ABG O2 Content (15-23) ML/dl ABG Base Excess (-2.0-3.0) mmol/L ABG Hemoglobin (11.7-17.4) g/dL ABG Carboxyhemoglobin (0.5-1.5) % POC ABG HHb (Measured) (0-5) % ABG Methemoglobin (0.0-3.0) % ABG O2 Capacity (16-24) mL/dl VBG pH (7.32-7.43) VBG pCO2 (40-60) VBG HCO3 (21-28) mmol/l VBG Total CO2 (22-28) mmol.L VBG O2 Sat (Calc) (40-65) % VBG Base Excess (0.0-2.0) mmol/L VBG Potassium (3.6-5.2) mmol/L Hgb O2 Saturation (95.0-98.0) % Glucose (75-110) mg/dl Lactate (0.7-2.1) mmol/L FiO2 % Sodium 129 L (132-148) mmol/L Potassium 5.3 H (3.6-5.0) mmol/L Chloride 95 L (98-107) mmol/L Carbon Dioxide 14 L (21-33) mmol/L Anion Gap 25 H (10-20) BUN 115 H (7-21) mg/dL Creatinine 7.4 H* D (0.8-1.5) mg/dl Est GFR ( Amer) 9 Est GFR (Non-Af Amer) 7 POC Glucose (mg/dL) (65-110) mg/dL Random Glucose 291 H (70-110) mg/dL Calcium 6.5 L* (8.4-10.5) mg/dL Phosphorus (2.5-4.5) mg/dL Magnesium 1.8 (1.7-2.2) mg/dL Total Bilirubin 0.3 (0.2-1.3) mg/dL Direct Bilirubin (0.0-0.4) mg/dL AST 21 (17-59) U/L ALT 17 (7-56) U/L Alkaline Phosphatase 78 (38-126) U/L NT-Pro-B Natriuret Pep (0-450) pg/mL Total Protein 5.7 L (5.8-8.3) g/dL Albumin 3.1 (3.0-4.8) g/dL Globulin 2.6 gm/dL Albumin/Globulin Ratio 1.2 (1.1-1.8) Venous Blood Potassium (3.6-5.2) mmol/L Random Vancomycin (20-40) ug/mL Blood Type Antibody Screen BBK History Checked Laboratory Results - last 24 hr 03/03/18 03/03/18 03/03/18 10:20 10:20 10:20 WBC 6.3 RBC 3.86 Hgb 8.8 L D Hct 27.3 L MCV 70.7 L D MCH 22.8 L MCHC 32.2 RDW 19.2 H Plt Count 207 Gran % 84.3 H Lymph % (Auto) 12.1 L [place] % (Auto) 3.0 Eos % (Auto) 0.6 L Baso % (Auto) 0.0 Gran # 5.30 Lymph # (Auto) 0.8 L [place] # (Auto) 0.2 Eos # (Auto) 0.0 Baso # (Auto) 0.00 Neutrophils % (Manual) 85 H Band Neutrophils % 1 Lymphocytes % (Manual) 9 L Monocytes % (Manual) 3 Eosinophils % (Manual) 2 Platelet Evaluation Normal Poikilocytosis (manual 2+ Anisocytosis (manual) 1+ Microcytosis (manual) 1+ [place] Cells Slight Acanthocytes (Spur) Slight Schistocytes Moderate PT 12.8 H INR 1.11 APTT 27.9 pCO2 pO2 HCO3 ABG pH ABG Total CO2 ABG O2 Saturation ABG O2 Content ABG Base Excess ABG Hemoglobin ABG Carboxyhemoglobin POC ABG HHb (Measured) ABG Methemoglobin ABG O2 Capacity VBG pH VBG pCO2 VBG HCO3 VBG Total CO2 VBG O2 Sat (Calc) VBG Base Excess VBG Potassium Hgb O2 Saturation Glucose Lactate FiO2 Sodium 129 L Potassium 5.3 H Chloride 95 L Carbon Dioxide 14 L Anion Gap 25 H BUN 115 H Creatinine 7.4 H* D Est GFR ( Amer) 9 Est GFR (Non-Af Amer) 7 POC Glucose (mg/dL) Random Glucose 291 H Calcium 6.5 L* Phosphorus Magnesium 1.8 Total Bilirubin 0.3 Direct Bilirubin AST 21 ALT 17 Alkaline Phosphatase 78 NT-Pro-B Natriuret Pep Total Protein 5.7 L Albumin 3.1 Globulin 2.6 Albumin/Globulin Ratio 1.2 Venous Blood Potassium Random Vancomycin Blood Type Antibody Screen BBK History Checked 03/03/18 03/03/18 03/03/18 10:20 11:00 14:25 WBC RBC Hgb Hct MCV MCH MCHC RDW Plt Count Gran % Lymph % (Auto) [place] % (Auto) Eos % (Auto) Baso % (Auto) Gran # Lymph # (Auto) [place] # (Auto) Eos # (Auto) Baso # (Auto) Neutrophils % (Manual) Band Neutrophils % Lymphocytes % (Manual) Monocytes % (Manual) Eosinophils % (Manual) Platelet Evaluation Poikilocytosis (manual Anisocytosis (manual) Microcytosis (manual) [place] Cells Acanthocytes (Spur) Schistocytes PT INR APTT pCO2 pO2 45 HCO3 ABG pH ABG Total CO2 ABG O2 Saturation ABG O2 Content ABG Base Excess ABG Hemoglobin ABG Carboxyhemoglobin POC ABG HHb (Measured) ABG Methemoglobin ABG O2 Capacity VBG pH 7.22 L VBG pCO2 39.0 L VBG HCO3 16.0 L VBG Total CO2 17.2 L VBG O2 Sat (Calc) 81.1 H VBG Base Excess -11.1 L VBG Potassium 4.7 Hgb O2 Saturation Glucose 296 H Lactate 2.3 H FiO2 21.0 Sodium 126.0 L Potassium Chloride 95.0 L Carbon Dioxide Anion Gap BUN Creatinine Est GFR ( Amer) Est GFR (Non-Af Amer) POC Glucose (mg/dL) Random Glucose Calcium Phosphorus Magnesium Total Bilirubin Direct Bilirubin AST ALT Alkaline Phosphatase NT-Pro-B Natriuret Pep 87270 H Total Protein Albumin Globulin Albumin/Globulin Ratio Venous Blood Potassium 4.7 Random Vancomycin Blood Type O POSITIVE Antibody Screen Negative BBK History Checked Patient has bt 03/03/18 03/03/18 03/03/18 17:28 20:13 20:13 WBC RBC Hgb Hct MCV MCH MCHC RDW Plt Count Gran % Lymph % (Auto) [place] % (Auto) Eos % (Auto) Baso % (Auto) Gran # Lymph # (Auto) [place] # (Auto) Eos # (Auto) Baso # (Auto) Neutrophils % (Manual) Band Neutrophils % Lymphocytes % (Manual) Monocytes % (Manual) Eosinophils % (Manual) Platelet Evaluation Poikilocytosis (manual Anisocytosis (manual) Microcytosis (manual) [place] Cells Acanthocytes (Spur) Schistocytes PT INR APTT pCO2 pO2 36 HCO3 ABG pH ABG Total CO2 ABG O2 Saturation ABG O2 Content ABG Base Excess ABG Hemoglobin ABG Carboxyhemoglobin POC ABG HHb (Measured) ABG Methemoglobin ABG O2 Capacity VBG pH 7.27 L VBG pCO2 32.0 L VBG HCO3 14.7 L VBG Total CO2 15.7 L VBG O2 Sat (Calc) 76.6 H VBG Base Excess -11.0 L VBG Potassium 4.2 Hgb O2 Saturation Glucose 168 H Lactate 1.6 FiO2 21.0 Sodium 129.0 L 129 L Potassium 4.1 Chloride 99.0 98 Carbon Dioxide 14 L Anion Gap 22 H BUN 113 H Creatinine 6.9 H Est GFR ( Amer) 10 Est GFR (Non-Af Amer) 8 POC Glucose (mg/dL) 269 H Random Glucose 156 H Calcium 6.1 L* Phosphorus 5.8 H Magnesium 1.6 L Total Bilirubin 0.1 L Direct Bilirubin AST 17 ALT 17 Alkaline Phosphatase 70 NT-Pro-B Natriuret Pep Total Protein 5.0 L Albumin 2.6 L Globulin 2.4 Albumin/Globulin Ratio 1.1 Venous Blood Potassium 4.2 Random Vancomycin Blood Type Antibody Screen BBK History Checked 03/03/18 03/04/18 03/04/18 20:13 02:30 06:40 WBC 4.3 L D RBC 3.80 Hgb 8.7 L Hct 27.1 L MCV 71.3 L MCH 22.9 L MCHC 32.1 RDW 19.3 H Plt Count 147 Gran % 95.6 H Lymph % (Auto) 3.0 L [place] % (Auto) 1.4 Eos % (Auto) 0.0 L Baso % (Auto) 0.0 Gran # 4.13 Lymph # (Auto) 0.1 L [place] # (Auto) 0.1 Eos # (Auto) 0.0 Baso # (Auto) 0.00 Neutrophils % (Manual) Band Neutrophils % Lymphocytes % (Manual) Monocytes % (Manual) Eosinophils % (Manual) Platelet Evaluation Poikilocytosis (manual Anisocytosis (manual) Microcytosis (manual) [place] Cells Acanthocytes (Spur) Schistocytes PT INR APTT pCO2 pO2 HCO3 ABG pH ABG Total CO2 ABG O2 Saturation ABG O2 Content ABG Base Excess ABG Hemoglobin ABG Carboxyhemoglobin POC ABG HHb (Measured) ABG Methemoglobin ABG O2 Capacity VBG pH VBG pCO2 VBG HCO3 VBG Total CO2 VBG O2 Sat (Calc) VBG Base Excess VBG Potassium Hgb O2 Saturation Glucose Lactate FiO2 Sodium Potassium Chloride Carbon Dioxide Anion Gap BUN Creatinine Est GFR ( Amer) Est GFR (Non-Af Amer) POC Glucose (mg/dL) 284 H Random Glucose Calcium Phosphorus Magnesium Total Bilirubin Direct Bilirubin AST ALT Alkaline Phosphatase NT-Pro-B Natriuret Pep Total Protein Albumin Globulin Albumin/Globulin Ratio Venous Blood Potassium Random Vancomycin 24.4 Blood Type Antibody Screen BBK History Checked 03/04/18 03/04/18 03/04/18 06:40 08:05 08:05 WBC RBC Hgb Hct MCV MCH MCHC RDW Plt Count Gran % Lymph % (Auto) [place] % (Auto) Eos % (Auto) Baso % (Auto) Gran # Lymph # (Auto) [place] # (Auto) Eos # (Auto) Baso # (Auto) Neutrophils % (Manual) Band Neutrophils % Lymphocytes % (Manual) Monocytes % (Manual) Eosinophils % (Manual) Platelet Evaluation Poikilocytosis (manual Anisocytosis (manual) Microcytosis (manual) [place] Cells Acanthocytes (Sp[place]) Schistocytes PT INR APTT pCO2 19 L* pO2 120.0 H HCO3 9.1 L* ABG pH 7.29 L ABG Total CO2 9.7 L ABG O2 Saturation 98.0 ABG O2 Content 10.8 L ABG Base Excess -15.8 L ABG Hemoglobin 7.8 L ABG Carboxyhemoglobin 0.7 POC ABG HHb (Measured) 2.0 ABG Methemoglobin 1.1 ABG O2 Capacity 11.0 L VBG pH VBG pCO2 VBG HCO3 VBG Total CO2 VBG O2 Sat (Calc) VBG Base Excess VBG Potassium Hgb O2 Saturation 96.1 Glucose Lactate FiO2 28.0 Sodium 131 L Potassium 5.3 H Chloride 94 L Carbon Dioxide 11 L Anion Gap 31 H BUN 119 H Creatinine 6.6 H Est GFR ( Amer) 10 Est GFR (Non-Af Amer) 8 POC Glucose (mg/dL) 332 H Random Glucose 288 H Calcium 7.5 L Phosphorus 6.9 H Magnesium 2.1 Total Bilirubin 0.4 Direct Bilirubin 0.4 AST 26 ALT 13 Alkaline Phosphatase 87 NT-Pro-B Natriuret Pep Total Protein 5.9 Albumin 3.5 Globulin 2.4 Albumin/Globulin Ratio 1.5 Venous Blood Potassium Random Vancomycin Blood Type Antibody Screen BBK History Checked EKG/Cardiology Studies: Cardiology / EKG Studies 03/03/18 09:57 EKG [ELECTROCARDIOGRAM] Stat Comment: Reason For Exam: r/o dysrythmia 03/04/18 08:00 EKG [ELECTROCARDIOGRAM] Routine Comment: Reason For Exam: hyperK; r/o dysarythmia Fingerstick Blood Sugar Results: 332 Review of Systems - Constitutional Constitutional: absent: Fever, Chills - EENT Eyes: absent: Blurred Vision Ears: absent: Decreased Hearing Nose/Mouth/Throat: absent: Epistaxis, Sore Throat - Cardiovascular Cardiovascular: Dyspnea on Exertion. absent: Chest Pain, Palpitations - Respiratory Respiratory: Dyspnea. absent: Cough, Wheezing - Gastrointestinal Gastrointestinal: absent: Abdominal Pain, Constipation, Diarrhea, Nausea, Vomiting - Genitourinary Genitourinary: absent: Change in Urinary Stream, Difficulty Urinating, Dysuria, Hematuria - Musculoskeletal Musculoskeletal: Muscle Weakness - Integumentary Integumentary: absent: Rash - Neurological Neurological: Weakness. absent: Dizziness, Headaches, Vertigo - Psychiatric Psychiatric: absent: Anxiety, Depression Critical Care Progress Note - Ventilator Checklist Head of Bed 30 Degrees: Yes - Extremities/Vascular Does the Patient have a Central Venous Catheter?: No Does the Patient have a Aquino Catheter?: No - Prophylaxis GI Prophylaxis GI: PPI - Prophylaxis DVT Prophylaxis DVT: SCDs - Nutrition Nutrition: Nutrition Category Date Time Status Diabetic [Consistent Carbohydrate] [DIET] Diets 03/03/18 Dinner Ordered Assessment/Plan - Assessment and Plan (Free Text) Assessment: 67 year old male with past medical history of aortic valve replacement, anemia, renal transplant in 2006, hyperlipidemia, hypertension, insulin dependent diabetes, secondary hyperparathyroidism, polycystic kidney disease, chronic kidney disease, pulmonary hypertension, diastolic congestive heart failure with last EF of 62.9%, cachexia, and aortic dissection is a poor historian and presents with weakness and shortness of the breath for 3 weeks. Plan: Neuro: -AAOx3, no FND, moving extremities past midline. -Monitor neuro status. -Reorient patient as necessary. Cardio: -RRR, hypotensive, systolic ejection murmur, tachypneic, firm and distended abdomen, +2 pitting edema in bilateral lower extremities -Patient's hypotension likely due to hypovolemia but cannot rule out cardiogenic or septic causes. -MAP: 72 -CXR from 03/03: shows bilateral pleural effusion more on the left than on the right -Midodrine 5 mg TID -500 cc NS given last night, NS with bicarbonate given at 75 cc/hr. One more 500 cc NS bolus will be given. -Continue vancomycin and zosyn. -Maintain MAP>65. -Monitor for S/S, HD compromise. Pulm: -Patient tachypneic and in mild respiratory distress. CTA B/L -Patient is stating well on 2L NC. -ABG: pH: 7.29, pCO2: 19, pO2: 120, lactate: 1.3. -Tachypneia likely due to compensation for metabolic acidosis from severe uremia. -Xopenex treatments given Q6 as needed. Patient received one treatment last night. -Repeat CXR for reevaluation of bilateral lower lobe infiltrates -Maintain O2 saturation>95%. GI: -Tolerating diabetic diet well. -Protonix 40 mg daily /Nephro: -BUN/Cr: 119/6.6. Creatinine improved from 7.4 yesterday. BUN worsened from 115 yesterday. -UA -As per nephrology, patient for dialysis today and tomorrow. -Na: 131 from 129. Patient is to receive 500 cc bolus of NS. Patient is receiving NS with bicarbonate at 75 cc/hr. Recheck after dialysis. -K: 5.3. Recheck after dialysis. Patient had no EKG changes yesterday. Continue to monitor. -HCO3: 11 from 14 yesterday. Uremia is worsening due to CKD. Patient is receiv ing NS with bicarbonate at 75 cc/hr. Recheck after dialysis. -Calcium improved with calcitriol and calcium carbonate to 7.5 from 6.5 yesterday. Recheck after dialysis. -Phosphate increased to 6.9 from 5.8. Recheck after dialysis. Consider restarting cinacalet after dialysis. -Continue to renally dose vancomycin. Random vancomycin level was 24.4. Recheck vancomycin level tomorrow in the AM. -Patient currently on immunosuppresion with tacrolimus, hydrocortisone for renal transplant. Cellcept held. -Maintain euvolemia. -Strict I and Os. Check daily weights -Dr. Wheeler, nephrology consulted for further recommendations. Endocrinology: -Random glucose at 288. Glucose elevated likely due to hydrocortisone. -Patient changed to high dose sliding scale insulin. -Maintain euglycemia. Heme/Onc: -Anemic: 8.7 from 8.8 with MCV of 71.3 -FOBT -Continue ferrous gluconate 324 mg BID. -Continue monitoring H/H ID: -Afebrile, mild leukopenia -Lactate: 1.3 from 2.3 yesterday -BCx -UCx -Procalcitonin -Monitor for signs and symptoms of infection. DVT ppx: SCD GI ppx: protonix Patient seen and examined with Dr. Murray. - Date & Time Date: 03/04/18 Time: 09:28 <Serenity Murray - Last Filed: 03/04/18 17:05> CCU Objective - Vital Signs / Intake & Output Vital Signs (Last 4 hours): Vital Signs Pulse 03/04/18 14:00 94 H Intake and Output (Last 8hrs): Intake & Output 03/04/18 03/04/18 03/04/18 06:59 14:59 22:59 Intake Total 1750 Output Total 0 Balance 1750 Weight 50.621 kg Intake: IV 1650 Right Forearm 750 Right Wrist 900 Oral 100 Output: Urine 0 Urine, Voided 0 Other: # Voids Urine, Voided 1 # Bowel Movements 1 - Medications Active Medications: Active Medications Generic Name Dose Route Start Last Admin Trade Name Freq PRN Reason Stop Dose Admin Acetaminophen 650 mg 03/03/18 19:21 Tylenol 325mg Tab PO Q6 PRN TEMP>=99.5F Acetaminophen 650 mg 03/03/18 19:21 Tylenol 650 Mg Supp RC Q6H PRN TEMP>=99.5F Acetaminophen 650 mg 03/03/18 19:28 Tylenol 650 Mg Supp RC Q6H PRN Headache Acetaminophen 650 mg 03/03/18 19:29 Tylenol 325mg Tab PO Q6H PRN Headache Atorvastatin Calcium 20 mg 03/03/18 17:00 03/03/18 17:58 Lipitor PO 20 mg DIN TAWANA Administration Benzonatate 200 mg 03/04/18 10:00 03/04/18 13:52 Tessalon Perles PO 200 mg TID TAWANA Administration Calcitriol 0.5 mcg 03/03/18 15:30 03/04/18 14:10 Rocaltrol PO 0.5 mcg DAILY TAWANA Administration Calcium Acetate 667 mg 03/04/18 12:00 03/04/18 14:21 Phoslo PO 667 mg WM TAWANA Administration Calcium Carbonate 500 mg 03/04/18 18:00 Oscal PO BID TAWANA Cinacalcet 30 mg 03/04/18 10:00 Sensipar PO DAILY TAWANA Docusate Sodium 100 mg 03/04/18 10:00 03/04/18 14:23 Colace PO 100 mg TID TAWANA Administration Ezetimibe 10 mg 03/04/18 10:00 03/04/18 14:04 Zetia PO 10 mg DAILY TAWANA Administration Ferrous Gluconate 324 mg 03/03/18 18:00 03/04/18 14:22 Fergon PO 324 mg BID TAWANA Administration Hydrocortisone Sodium Succinate 50 mg 03/03/18 18:15 03/04/18 13:50 Solu-Cortef IVP 50 mg Q6H TAWANA Administration Doxycycline Hyclate 100 mg/ 100 mls @ 100 mls/hr 03/03/18 22:00 03/04/18 13:40 Sodium Chloride IVPB 100 mls/hr Q12 TAWANA Administration Protocol Meropenem 500 mg/ Sodium 50 mls @ 100 mls/hr 03/03/18 22:45 03/03/18 23:19 Chloride IVPB 03/10/18 22:46 100 mls/hr Q24H TAWANA Administration Protocol Insulin Human Lispro 0 units 03/04/18 11:30 03/04/18 13:38 Humalog High SC 2 u ACHS TAWANA Administration Protocol Levalbuterol HCl 0.63 mg 03/03/18 20:00 03/04/18 13:12 Xopenex IH 0.63 mg [id number] TAWANA Administration Midodrine 5 mg 03/03/18 23:45 03/04/18 14:20 Proamatine PO 5 mg TID TAWANA Administration Ondansetron HCl 4 mg 03/03/18 19:21 Zofran Inj IVP Q4H PRN Nausea/Vomiting Pantoprazole Sodium 40 mg 03/04/18 06:00 03/04/18 06:38 Protonix Ec Tab PO 40 mg 0600 TAWANA Administration Polyethylene Glycol 17 gm 03/04/18 10:00 03/04/18 14:33 Miralax PO Not Given BID TAWANA Tacrolimus 1 mg 03/03/18 18:00 03/03/18 19:12 Prograf Cap PO 1 mg QPM TAWANA Administration Tacrolimus 2 mg 03/04/18 10:00 03/04/18 14:19 Prograf Cap PO 2 mg QAM TAWANA Administration - Patient Studies Lab Studies: Microbiology Studies 03/03/18 15:25 Blood Culture - Preliminary Blood-Venous NO GROWTH AFTER 24 HOURS 03/03/18 14:27 Blood Culture - Preliminary Blood-Venous NO GROWTH AFTER 24 HOURS Lab Studies 03/04/18 03/04/18 03/04/18 Range/Units 12:45 12:32 10:00 WBC (4.5-11.0) 10^3/ul RBC (3.5-6.1) 10^6/uL Hgb (14.0-18.0) g/dL Hct (42.0-52.0) % MCV (80.0-105.0) fl MCH (25.0-35.0) pg MCHC (31.0-37.0) g/dl RDW (11.5-14.5) % Plt Count (120.0-450.0) 10^3/uL Gran % (50.0-68.0) % Lymph % (Auto) (22.0-35.0) % [place] % (Auto) (1.0-6.0) % Eos % (Auto) (1.5-5.0) % Baso % (Auto) (0.0-3.0) % Gran # (1.4-6.5) Lymph # (Auto) (1.2-3.4) [place] # (Auto) (0.1-0.6) Eos # (Auto) (0.0-0.7) Baso # (Auto) (0.0-2.0) K/mm3 pCO2 (35-45) mm/Hg pO2 (30-55) mm/Hg HCO3 (21-28) mmol/L ABG pH (7.35-7.45) ABG Total CO2 (22-28) mmol.L ABG O2 Saturation (95-98) % ABG O2 Content (15-23) ML/dl ABG Base Excess (-2.0-3.0) mmol/L ABG Hemoglobin (11.7-17.4) g/dL ABG Carboxyhemoglobin (0.5-1.5) % POC ABG HHb (Measured) (0-5) % ABG Methemoglobin (0.0-3.0) % ABG O2 Capacity (16-24) mL/dl VBG pH (7.32-7.43) VBG pCO2 (40-60) VBG HCO3 (21-28) mmol/l VBG Total CO2 (22-28) mmol.L VBG O2 Sat (Calc) (40-65) % VBG Base Excess (0.0-2.0) mmol/L VBG Potassium (3.6-5.2) mmol/L Hgb O2 Saturation (95.0-98.0) % Sodium 132 (132-148) mmol/L Chloride 94 L (98-107) mmol/L Glucose (75-110) mg/dl Lactate (0.7-2.1) mmol/L FiO2 % Potassium 4.2 (3.6-5.0) mmol/L Carbon Dioxide 10 L (21-33) mmol/L Anion Gap 32 H (10-20) BUN 116 H (7-21) mg/dL Creatinine 7.1 H (0.8-1.5) mg/dl Est GFR ( Amer) 9 Est GFR (Non-Af Amer) 8 POC Glucose (mg/dL) 159 H (65-110) mg/dL Random Glucose 304 H* (70-110) mg/dL Hemoglobin A1c (4.2-6.5) % Lactic Acid 0.7 (0.7-2.1) mmol/L Calcium 7.5 L (8.4-10.5) mg/dL Phosphorus 6.9 H (2.5-4.5) mg/dL Magnesium 2.0 (1.7-2.2) mg/dL Total Bilirubin (0.2-1.3) mg/dL Direct Bilirubin (0.0-0.4) mg/dL AST (17-59) U/L ALT (7-56) U/L Alkaline Phosphatase (38-126) U/L NT-Pro-B Natriuret Pep (0-450) pg/mL Total Protein (5.8-8.3) g/dL Albumin (3.0-4.8) g/dL Globulin gm/dL Albumin/Globulin Ratio (1.1-1.8) 25-OH Vitamin D Total (30.0-100.0) NG/ML Procalcitonin (0.19-0.49) NG/ML PTH Intact Whole Molec (14-64) pg/mL Venous Blood Potassium (3.6-5.2) mmol/L Random Vancomycin (20-40) ug/mL Tacrolimus (LC/MS/MS) (5.0-20.0) mcg/L Hep Bs Antigen (NEGATIVE) Hep B Core IgM Ab (NEGATIVE) 03/04/18 03/04/18 03/04/18 Range/Units 08:05 08:05 06:40 WBC (4.5-11.0) 10^3/ul RBC (3.5-6.1) 10^6/uL Hgb (14.0-18.0) g/dL Hct (42.0-52.0) % MCV (80.0-105.0) fl MCH (25.0-35.0) pg MCHC (31.0-37.0) g/dl RDW (11.5-14.5) % Plt Count (120.0-450.0) 10^3/uL Gran % (50.0-68.0) % Lymph % (Auto) (22.0-35.0) % [place] % (Auto) (1.0-6.0) % Eos % (Auto) (1.5-5.0) % Baso % (Auto) (0.0-3.0) % Gran # (1.4-6.5) Lymph # (Auto) (1.2-3.4) [place] # (Auto) (0.1-0.6) Eos # (Auto) (0.0-0.7) Baso # (Auto) (0.0-2.0) K/mm3 pCO2 19 L* (35-45) mm/Hg pO2 120.0 H (30-55) mm/Hg HCO3 9.1 L* (21-28) mmol/L ABG pH 7.29 L (7.35-7.45) ABG Total CO2 9.7 L (22-28) mmol.L ABG O2 Saturation 98.0 (95-98) % ABG O2 Content 10.8 L (15-23) ML/dl ABG Base Excess -15.8 L (-2.0-3.0) mmol/L ABG Hemoglobin 7.8 L (11.7-17.4) g/dL ABG Carboxyhemoglobin 0.7 (0.5-1.5) % POC ABG HHb (Measured) 2.0 (0-5) % ABG Methemoglobin 1.1 (0.0-3.0) % ABG O2 Capacity 11.0 L (16-24) mL/dl VBG pH (7.32-7.43) VBG pCO2 (40-60) VBG HCO3 (21-28) mmol/l VBG Total CO2 (22-28) mmol.L VBG O2 Sat (Calc) (40-65) % VBG Base Excess (0.0-2.0) mmol/L VBG Potassium (3.6-5.2) mmol/L Hgb O2 Saturation 96.1 (95.0-98.0) % Sodium (132-148) mmol/L Chloride (98-107) mmol/L Glucose (75-110) mg/dl Lactate (0.7-2.1) mmol/L FiO2 28.0 % Potassium (3.6-5.0) mmol/L Carbon Dioxide (21-33) mmol/L Anion Gap (10-20) BUN (7-21) mg/dL Creatinine (0.8-1.5) mg/dl Est GFR ( Amer) Est GFR (Non-Af Amer) POC Glucose (mg/dL) 332 H (65-110) mg/dL Random Glucose (70-110) mg/dL Hemoglobin A1c (4.2-6.5) % Lactic Acid (0.7-2.1) mmol/L Calcium (8.4-10.5) mg/dL Phosphorus (2.5-4.5) mg/dL Magnesium (1.7-2.2) mg/dL Total Bilirubin (0.2-1.3) mg/dL Direct Bilirubin (0.0-0.4) mg/dL AST (17-59) U/L ALT (7-56) U/L Alkaline Phosphatase (38-126) U/L NT-Pro-B Natriuret Pep (0-450) pg/mL Total Protein (5.8-8.3) g/dL Albumin (3.0-4.8) g/dL Globulin gm/dL Albumin/Globulin Ratio (1.1-1.8) 25-OH Vitamin D Total 35.6 (30.0-100.0) NG/ML Procalcitonin (0.19-0.49) NG/ML PTH Intact Whole Molec (14-64) pg/mL Venous Blood Potassium (3.6-5.2) mmol/L Random Vancomycin (20-40) ug/mL Tacrolimus (LC/MS/MS) (5.0-20.0) mcg/L Hep Bs Antigen (NEGATIVE) Hep B Core IgM Ab (NEGATIVE) 03/04/18 03/04/18 03/04/18 Range/Units 06:40 06:40 06:40 WBC 4.3 L D (4.5-11.0) 10^3/ul RBC 3.80 (3.5-6.1) 10^6/uL Hgb 8.7 L (14.0-18.0) g/dL Hct 27.1 L (42.0-52.0) % MCV 71.3 L (80.0-105.0) fl MCH 22.9 L (25.0-35.0) pg MCHC 32.1 (31.0-37.0) g/dl RDW 19.3 H (11.5-14.5) % Plt Count 147 (120.0-450.0) 10^3/uL Gran % 95.6 H (50.0-68.0) % Lymph % (Auto) 3.0 L (22.0-35.0) % [place] % (Auto) 1.4 (1.0-6.0) % Eos % (Auto) 0.0 L (1.5-5.0) % Baso % (Auto) 0.0 (0.0-3.0) % Gran # 4.13 (1.4-6.5) Lymph # (Auto) 0.1 L (1.2-3.4) [place] # (Auto) 0.1 (0.1-0.6) Eos # (Auto) 0.0 (0.0-0.7) Baso # (Auto) 0.00 (0.0-2.0) K/mm3 pCO2 (35-45) mm/Hg pO2 (30-55) mm/Hg HCO3 (21-28) mmol/L ABG pH (7.35-7.45) ABG Total CO2 (22-28) mmol.L ABG O2 Saturation (95-98) % ABG O2 Content (15-23) ML/dl ABG Base Excess (-2.0-3.0) mmol/L ABG Hemoglobin (11.7-17.4) g/dL ABG Carboxyhemoglobin (0.5-1.5) % POC ABG HHb (Measured) (0-5) % ABG Methemoglobin (0.0-3.0) % ABG O2 Capacity (16-24) mL/dl VBG pH (7.32-7.43) VBG pCO2 (40-60) VBG HCO3 (21-28) mmol/l VBG Total CO2 (22-28) mmol.L VBG O2 Sat (Calc) (40-65) % VBG Base Excess (0.0-2.0) mmol/L VBG Potassium (3.6-5.2) mmol/L Hgb O2 Saturation (95.0-98.0) % Sodium 131 L (132-148) mmol/L Chloride 94 L (98-107) mmol/L Glucose (75-110) mg/dl Lactate (0.7-2.1) mmol/L FiO2 % Potassium 5.3 H (3.6-5.0) mmol/L Carbon Dioxide 11 L (21-33) mmol/L Anion Gap 31 H (10-20) BUN 119 H (7-21) mg/dL Creatinine 6.6 H (0.8-1.5) mg/dl Est GFR ( Amer) 10 Est GFR (Non-Af Amer) 8 POC Glucose (mg/dL) (65-110) mg/dL Random Glucose 288 H (70-110) mg/dL Hemoglobin A1c 10.4 H D (4.2-6.5) % Lactic Acid (0.7-2.1) mmol/L Calcium 7.5 L (8.4-10.5) mg/dL Phosphorus 6.9 H (2.5-4.5) mg/dL Magnesium 2.1 (1.7-2.2) mg/dL Total Bilirubin 0.4 (0.2-1.3) mg/dL Direct Bilirubin 0.4 (0.0-0.4) mg/dL AST 26 (17-59) U/L ALT 13 (7-56) U/L Alkaline Phosphatase 87 (38-126) U/L NT-Pro-B Natriuret Pep (0-450) pg/mL Total Protein 5.9 (5.8-8.3) g/dL Albumin 3.5 (3.0-4.8) g/dL Globulin 2.4 gm/dL Albumin/Globulin Ratio 1.5 (1.1-1.8) 25-OH Vitamin D Total (30.0-100.0) NG/ML Procalcitonin (0.19-0.49) NG/ML PTH Intact Whole Molec (14-64) pg/mL Venous Blood Potassium (3.6-5.2) mmol/L Random Vancomycin (20-40) ug/mL Tacrolimus (LC/MS/MS) (5.0-20.0) mcg/L Hep Bs Antigen (NEGATIVE) Hep B Core IgM Ab (NEGATIVE) 03/04/18 03/04/18 03/03/18 Range/Units 06:30 02:30 20:13 WBC (4.5-11.0) 10^3/ul RBC (3.5-6.1) 10^6/uL Hgb (14.0-18.0) g/dL Hct (42.0-52.0) % MCV (80.0-105.0) fl MCH (25.0-35.0) pg MCHC (31.0-37.0) g/dl RDW (11.5-14.5) % Plt Count (120.0-450.0) 10^3/uL Gran % (50.0-68.0) % Lymph % (Auto) (22.0-35.0) % [place] % (Auto) (1.0-6.0) % Eos % (Auto) (1.5-5.0) % Baso % (Auto) (0.0-3.0) % Gran # (1.4-6.5) Lymph # (Auto) (1.2-3.4) [place] # (Auto) (0.1-0.6) Eos # (Auto) (0.0-0.7) Baso # (Auto) (0.0-2.0) K/mm3 pCO2 (35-45) mm/Hg pO2 (30-55) mm/Hg HCO3 (21-28) mmol/L ABG pH (7.35-7.45) ABG Total CO2 (22-28) mmol.L ABG O2 Saturation (95-98) % ABG O2 Content (15-23) ML/dl ABG Base Excess (-2.0-3.0) mmol/L ABG Hemoglobin (11.7-17.4) g/dL ABG Carboxyhemoglobin (0.5-1.5) % POC ABG HHb (Measured) (0-5) % ABG Methemoglobin (0.0-3.0) % ABG O2 Capacity (16-24) mL/dl VBG pH (7.32-7.43) VBG pCO2 (40-60) VBG HCO3 (21-28) mmol/l VBG Total CO2 (22-28) mmol.L VBG O2 Sat (Calc) (40-65) % VBG Base Excess (0.0-2.0) mmol/L VBG Potassium (3.6-5.2) mmol/L Hgb O2 Saturation (95.0-98.0) % Sodium (132-148) mmol/L Chloride (98-107) mmol/L Glucose (75-110) mg/dl Lactate (0.7-2.1) mmol/L FiO2 % Potassium (3.6-5.0) mmol/L Carbon Dioxide (21-33) mmol/L Anion Gap (10-20) BUN (7-21) mg/dL Creatinine (0.8-1.5) mg/dl Est GFR ( Amer) Est GFR (Non-Af Amer) POC Glucose (mg/dL) 284 H (65-110) mg/dL Random Glucose (70-110) mg/dL Hemoglobin A1c (4.2-6.5) % Lactic Acid (0.7-2.1) mmol/L Calcium (8.4-10.5) mg/dL Phosphorus (2.5-4.5) mg/dL Magnesium (1.7-2.2) mg/dL Total Bilirubin (0.2-1.3) mg/dL Direct Bilirubin (0.0-0.4) mg/dL AST (17-59) U/L ALT (7-56) U/L Alkaline Phosphatase (38-126) U/L NT-Pro-B Natriuret Pep (0-450) pg/mL Total Protein (5.8-8.3) g/dL Albumin (3.0-4.8) g/dL Globulin gm/dL Albumin/Globulin Ratio (1.1-1.8) 25-OH Vitamin D Total (30.0-100.0) NG/ML Procalcitonin (0.19-0.49) NG/ML PTH Intact Whole Molec (14-64) pg/mL Venous Blood Potassium (3.6-5.2) mmol/L Random Vancomycin 24.4 (20-40) ug/mL Tacrolimus (LC/MS/MS) (5.0-20.0) mcg/L Hep Bs Antigen Negative (NEGATIVE) Hep B Core IgM Ab Negative (NEGATIVE) 03/03/18 03/03/18 03/03/18 Range/Units 20:13 20:13 20:13 WBC (4.5-11.0) 10^3/ul RBC (3.5-6.1) 10^6/uL Hgb (14.0-18.0) g/dL Hct (42.0-52.0) % MCV (80.0-105.0) fl MCH (25.0-35.0) pg MCHC (31.0-37.0) g/dl RDW (11.5-14.5) % Plt Count (120.0-450.0) 10^3/uL Gran % (50.0-68.0) % Lymph % (Auto) (22.0-35.0) % [place] % (Auto) (1.0-6.0) % Eos % (Auto) (1.5-5.0) % Baso % (Auto) (0.0-3.0) % Gran # (1.4-6.5) Lymph # (Auto) (1.2-3.4) [place] # (Auto) (0.1-0.6) Eos # (Auto) (0.0-0.7) Baso # (Auto) (0.0-2.0) K/mm3 pCO2 (35-45) mm/Hg pO2 36 (30-55) mm/Hg HCO3 (21-28) mmol/L ABG pH (7.35-7.45) ABG Total CO2 (22-28) mmol.L ABG O2 Saturation (95-98) % ABG O2 Content (15-23) ML/dl ABG Base Excess (-2.0-3.0) mmol/L ABG Hemoglobin (11.7-17.4) g/dL ABG Carboxyhemoglobin (0.5-1.5) % POC ABG HHb (Measured) (0-5) % ABG Methemoglobin (0.0-3.0) % ABG O2 Capacity (16-24) mL/dl VBG pH 7.27 L (7.32-7.43) VBG pCO2 32.0 L (40-60) VBG HCO3 14.7 L (21-28) mmol/l VBG Total CO2 15.7 L (22-28) mmol.L VBG O2 Sat (Calc) 76.6 H (40-65) % VBG Base Excess -11.0 L (0.0-2.0) mmol/L VBG Potassium 4.2 (3.6-5.2) mmol/L Hgb O2 Saturation (95.0-98.0) % Sodium 129 L 129.0 L (132-148) mmol/L Chloride 98 99.0 (98-107) mmol/L Glucose 168 H (75-110) mg/dl Lactate 1.6 (0.7-2.1) mmol/L FiO2 21.0 % Potassium 4.1 (3.6-5.0) mmol/L Carbon Dioxide 14 L (21-33) mmol/L Anion Gap 22 H (10-20) BUN 113 H (7-21) mg/dL Creatinine 6.9 H (0.8-1.5) mg/dl Est GFR ( Amer) 10 Est GFR (Non-Af Amer) 8 POC Glucose (mg/dL) (65-110) mg/dL Random Glucose 156 H (70-110) mg/dL Hemoglobin A1c (4.2-6.5) % Lactic Acid (0.7-2.1) mmol/L Calcium 6.1 L* (8.4-10.5) mg/dL Phosphorus 5.8 H (2.5-4.5) mg/dL Magnesium 1.6 L (1.7-2.2) mg/dL Total Bilirubin 0.1 L (0.2-1.3) mg/dL Direct Bilirubin (0.0-0.4) mg/dL AST 17 (17-59) U/L ALT 17 (7-56) U/L Alkaline Phosphatase 70 (38-126) U/L NT-Pro-B Natriuret Pep (0-450) pg/mL Total Protein 5.0 L (5.8-8.3) g/dL Albumin 2.6 L (3.0-4.8) g/dL Globulin 2.4 gm/dL Albumin/Globulin Ratio 1.1 (1.1-1.8) 25-OH Vitamin D Total (30.0-100.0) NG/ML Procalcitonin 150.03 H (0.19-0.49) NG/ML PTH Intact Whole Molec (14-64) pg/mL Venous Blood Potassium 4.2 (3.6-5.2) mmol/L Random Vancomycin (20-40) ug/mL Tacrolimus (LC/MS/MS) (5.0-20.0) mcg/L Hep Bs Antigen (NEGATIVE) Hep B Core IgM Ab (NEGATIVE) 03/03/18 03/03/18 03/03/18 Range/Units 17:28 10:30 10:30 WBC (4.5-11.0) 10^3/ul RBC (3.5-6.1) 10^6/uL Hgb (14.0-18.0) g/dL Hct (42.0-52.0) % MCV (80.0-105.0) fl MCH (25.0-35.0) pg MCHC (31.0-37.0) g/dl RDW (11.5-14.5) % Plt Count (120.0-450.0) 10^3/uL Gran % (50.0-68.0) % Lymph % (Auto) (22.0-35.0) % [place] % (Auto) (1.0-6.0) % Eos % (Auto) (1.5-5.0) % Baso % (Auto) (0.0-3.0) % Gran # (1.4-6.5) Lymph # (Auto) (1.2-3.4) [place] # (Auto) (0.1-0.6) Eos # (Auto) (0.0-0.7) Baso # (Auto) (0.0-2.0) K/mm3 pCO2 (35-45) mm/Hg pO2 (30-55) mm/Hg HCO3 (21-28) mmol/L ABG pH (7.35-7.45) ABG Total CO2 (22-28) mmol.L ABG O2 Saturation (95-98) % ABG O2 Content (15-23) ML/dl ABG Base Excess (-2.0-3.0) mmol/L ABG Hemoglobin (11.7-17.4) g/dL ABG Carboxyhemoglobin (0.5-1.5) % POC ABG HHb (Measured) (0-5) % ABG Methemoglobin (0.0-3.0) % ABG O2 Capacity (16-24) mL/dl VBG pH (7.32-7.43) VBG pCO2 (40-60) VBG HCO3 (21-28) mmol/l VBG Total CO2 (22-28) mmol.L VBG O2 Sat (Calc) (40-65) % VBG Base Excess (0.0-2.0) mmol/L VBG Potassium (3.6-5.2) mmol/L Hgb O2 Saturation (95.0-98.0) % Sodium (132-148) mmol/L Chloride (98-107) mmol/L Glucose (75-110) mg/dl Lactate (0.7-2.1) mmol/L FiO2 % Potassium (3.6-5.0) mmol/L Carbon Dioxide (21-33) mmol/L Anion Gap (10-20) BUN (7-21) mg/dL Creatinine (0.8-1.5) mg/dl Est GFR ( Amer) Est GFR (Non-Af Amer) POC Glucose (mg/dL) 269 H (65-110) mg/dL Random Glucose (70-110) mg/dL Hemoglobin A1c (4.2-6.5) % Lactic Acid (0.7-2.1) mmol/L Calcium (8.4-10.5) mg/dL Phosphorus (2.5-4.5) mg/dL Magnesium (1.7-2.2) mg/dL Total Bilirubin (0.2-1.3) mg/dL Direct Bilirubin (0.0-0.4) mg/dL AST (17-59) U/L ALT (7-56) U/L Alkaline Phosphatase (38-126) U/L NT-Pro-B Natriuret Pep (0-450) pg/mL Total Protein (5.8-8.3) g/dL Albumin (3.0-4.8) g/dL Globulin gm/dL Albumin/Globulin Ratio (1.1-1.8) 25-OH Vitamin D Total (30.0-100.0) NG/ML Procalcitonin (0.19-0.49) NG/ML PTH Intact Whole Molec 469 H (14-64) pg/mL Venous Blood Potassium (3.6-5.2) mmol/L Random Vancomycin (20-40) ug/mL Tacrolimus (LC/MS/MS) 15.5 (5.0-20.0) mcg/L Hep Bs Antigen (NEGATIVE) Hep B Core IgM Ab (NEGATIVE) 03/03/18 Range/Units 10:20 WBC (4.5-11.0) 10^3/ul RBC (3.5-6.1) 10^6/uL Hgb (14.0-18.0) g/dL Hct (42.0-52.0) % MCV (80.0-105.0) fl MCH (25.0-35.0) pg MCHC (31.0-37.0) g/dl RDW (11.5-14.5) % Plt Count (120.0-450.0) 10^3/uL Gran % (50.0-68.0) % Lymph % (Auto) (22.0-35.0) % [place] % (Auto) (1.0-6.0) % Eos % (Auto) (1.5-5.0) % Baso % (Auto) (0.0-3.0) % Gran # (1.4-6.5) Lymph # (Auto) (1.2-3.4) [place] # (Auto) (0.1-0.6) Eos # (Auto) (0.0-0.7) Baso # (Auto) (0.0-2.0) K/mm3 pCO2 (35-45) mm/Hg pO2 (30-55) mm/Hg HCO3 (21-28) mmol/L ABG pH (7.35-7.45) ABG Total CO2 (22-28) mmol.L ABG O2 Saturation (95-98) % ABG O2 Content (15-23) ML/dl ABG Base Excess (-2.0-3.0) mmol/L ABG Hemoglobin (11.7-17.4) g/dL ABG Carboxyhemoglobin (0.5-1.5) % POC ABG HHb (Measured) (0-5) % ABG Methemoglobin (0.0-3.0) % ABG O2 Capacity (16-24) mL/dl VBG pH (7.32-7.43) VBG pCO2 (40-60) VBG HCO3 (21-28) mmol/l VBG Total CO2 (22-28) mmol.L VBG O2 Sat (Calc) (40-65) % VBG Base Excess (0.0-2.0) mmol/L VBG Potassium (3.6-5.2) mmol/L Hgb O2 Saturation (95.0-98.0) % Sodium (132-148) mmol/L Chloride (98-107) mmol/L Glucose (75-110) mg/dl Lactate (0.7-2.1) mmol/L FiO2 % Potassium (3.6-5.0) mmol/L Carbon Dioxide (21-33) mmol/L Anion Gap (10-20) BUN (7-21) mg/dL Creatinine (0.8-1.5) mg/dl Est GFR ( Amer) Est GFR (Non-Af Amer) POC Glucose (mg/dL) (65-110) mg/dL Random Glucose (70-110) mg/dL Hemoglobin A1c (4.2-6.5) % Lactic Acid (0.7-2.1) mmol/L Calcium (8.4-10.5) mg/dL Phosphorus (2.5-4.5) mg/dL Magnesium (1.7-2.2) mg/dL Total Bilirubin (0.2-1.3) mg/dL Direct Bilirubin (0.0-0.4) mg/dL AST (17-59) U/L ALT (7-56) U/L Alkaline Phosphatase (38-126) U/L NT-Pro-B Natriuret Pep [id number] H (0-450) pg/mL Total Protein (5.8-8.3) g/dL Albumin (3.0-4.8) g/dL Globulin gm/dL Albumin/Globulin Ratio (1.1-1.8) 25-OH Vitamin D Total (30.0-100.0) NG/ML Procalcitonin (0.19-0.49) NG/ML PTH Intact Whole Molec (14-64) pg/mL Venous Blood Potassium (3.6-5.2) mmol/L Random Vancomycin (20-40) ug/mL Tacrolimus (LC/MS/MS) (5.0-20.0) mcg/L Hep Bs Antigen (NEGATIVE) Hep B Core IgM Ab (NEGATIVE) Laboratory Results - last 24 hr 03/03/18 03/03/18 03/03/18 10:20 10:30 10:30 WBC RBC Hgb Hct MCV MCH MCHC RDW Plt Count Gran % Lymph % (Auto) [place] % (Auto) Eos % (Auto) Baso % (Auto) Gran # Lymph # (Auto) [place] # (Auto) Eos # (Auto) Baso # (Auto) pCO2 pO2 HCO3 ABG pH ABG Total CO2 ABG O2 Saturation ABG O2 Content ABG Base Excess ABG Hemoglobin ABG Carboxyhemoglobin POC ABG HHb (Measured) ABG Methemoglobin ABG O2 Capacity VBG pH VBG pCO2 VBG HCO3 VBG Total CO2 VBG O2 Sat (Calc) VBG Base Excess VBG Potassium Hgb O2 Saturation Sodium Chloride Glucose Lactate FiO2 Potassium Carbon Dioxide Anion Gap BUN Creatinine Est GFR ( Amer) Est GFR (Non-Af Amer) POC Glucose (mg/dL) Random Glucose Hemoglobin A1c Lactic Acid Calcium Phosphorus Magnesium Total Bilirubin Direct Bilirubin AST ALT Alkaline Phosphatase NT-Pro-B Natriuret Pep [id number] H Total Protein Albumin Globulin Albumin/Globulin Ratio 25-OH Vitamin D Total Procalcitonin PTH Intact Whole [facility] 469 H Venous Blood Potassium Random Vancomycin Tacrolimus (LC/MS/MS) 15.5 Hep Bs Antigen Hep B Core IgM Ab 03/03/18 03/03/18 03/03/18 17:28 20:13 20:13 WBC RBC Hgb Hct MCV MCH MCHC RDW Plt Count Gran % Lymph % (Auto) [place] % (Auto) Eos % (Auto) Baso % (Auto) Gran # Lymph # (Auto) [place] # (Auto) Eos # (Auto) Baso # (Auto) pCO2 pO2 36 HCO3 ABG pH ABG Total CO2 ABG O2 Saturation ABG O2 Content ABG Base Excess ABG Hemoglobin ABG Carboxyhemoglobin POC ABG HHb (Measured) ABG Methemoglobin ABG O2 Capacity VBG pH 7.27 L VBG pCO2 32.0 L VBG HCO3 14.7 L VBG Total CO2 15.7 L VBG O2 Sat (Calc) 76.6 H VBG Base Excess -11.0 L VBG Potassium 4.2 Hgb O2 Saturation Sodium 129.0 L 129 L Chloride 99.0 98 Glucose 168 H Lactate 1.6 FiO2 21.0 Potassium 4.1 Carbon Dioxide 14 L Anion Gap 22 H BUN 113 H Creatinine 6.9 H Est GFR ( Amer) 10 Est GFR (Non-Af Amer) 8 POC Glucose (mg/dL) 269 H Random Glucose 156 H Hemoglobin A1c Lactic Acid Calcium 6.1 L* Phosphorus 5.8 H Magnesium 1.6 L Total Bilirubin 0.1 L Direct Bilirubin AST 17 ALT 17 Alkaline Phosphatase 70 NT-Pro-B Natriuret Pep Total Protein 5.0 L Albumin 2.6 L Globulin 2.4 Albumin/Globulin Ratio 1.1 25-OH Vitamin D Total Procalcitonin PTH Intact Whole Molec Venous Blood Potassium 4.2 Random Vancomycin Tacrolimus (LC/MS/MS) Hep Bs Antigen Hep B Core IgM Ab 03/03/18 03/03/18 03/04/18 20:13 20:13 02:30 WBC RBC Hgb Hct MCV MCH MCHC RDW Plt Count Gran % Lymph % (Auto) [place] % (Auto) Eos % (Auto) Baso % (Auto) Gran # Lymph # (Auto) [place] # (Auto) Eos # (Auto) Baso # (Auto) pCO2 pO2 HCO3 ABG pH ABG Total CO2 ABG O2 Saturation ABG O2 Content ABG Base Excess ABG Hemoglobin ABG Carboxyhemoglobin POC ABG HHb (Measured) ABG Methemoglobin ABG O2 Capacity VBG pH VBG pCO2 VBG HCO3 VBG Total CO2 VBG O2 Sat (Calc) VBG Base Excess VBG Potassium Hgb O2 Saturation Sodium Chloride Glucose Lactate FiO2 Potassium Carbon Dioxide Anion Gap BUN Creatinine Est GFR ( Amer) Est GFR (Non-Af Amer) POC Glucose (mg/dL) 284 H Random Glucose Hemoglobin A1c Lactic Acid Calcium Phosphorus Magnesium Total Bilirubin Direct Bilirubin AST ALT Alkaline Phosphatase NT-Pro-B Natriuret Pep Total Protein Albumin Globulin Albumin/Globulin Ratio 25-OH Vitamin D Total Procalcitonin 150.03 H PTH Intact Whole Molec Venous Blood Potassium Random Vancomycin 24.4 Tacrolimus (LC/MS/MS) Hep Bs Antigen Hep B Core IgM Ab 03/04/18 03/04/18 03/04/18 06:30 06:40 06:40 WBC 4.3 L D RBC 3.80 Hgb 8.7 L Hct 27.1 L MCV 71.3 L MCH 22.9 L MCHC 32.1 RDW 19.3 H Plt Count 147 Gran % 95.6 H Lymph % (Auto) 3.0 L [place] % (Auto) 1.4 Eos % (Auto) 0.0 L Baso % (Auto) 0.0 Gran # 4.13 Lymph # (Auto) 0.1 L [place] # (Auto) 0.1 Eos # (Auto) 0.0 Baso # (Auto) 0.00 pCO2 pO2 HCO3 ABG pH ABG Total CO2 ABG O2 Saturation ABG O2 Content ABG Base Excess ABG Hemoglobin ABG Carboxyhemoglobin POC ABG HHb (Measured) ABG Methemoglobin ABG O2 Capacity VBG pH VBG pCO2 VBG HCO3 VBG Total CO2 VBG O2 Sat (Calc) VBG Base Excess VBG Potassium Hgb O2 Saturation Sodium 131 L Chloride 94 L Glucose Lactate FiO2 Potassium 5.3 H Carbon Dioxide 11 L Anion Gap 31 H BUN 119 H Creatinine 6.6 H Est GFR ( Amer) 10 Est GFR (Non-Af Amer) 8 POC Glucose (mg/dL) Random Glucose 288 H Hemoglobin A1c Lactic Acid Calcium 7.5 L Phosphorus 6.9 H Magnesium 2.1 Total Bilirubin 0.4 Direct Bilirubin 0.4 AST 26 ALT 13 Alkaline Phosphatase 87 NT-Pro-B Natriuret Pep Total Protein 5.9 Albumin 3.5 Globulin 2.4 Albumin/Globulin Ratio 1.5 25-OH Vitamin D Total Procalcitonin PTH Intact Whole Molec Venous Blood Potassium Random Vancomycin Tacrolimus (LC/MS/MS) Hep Bs Antigen Negative Hep B Core IgM Ab Negative 03/04/18 03/04/18 03/04/18 06:40 06:40 08:05 WBC RBC Hgb Hct MCV MCH MCHC RDW Plt Count Gran % Lymph % (Auto) [place] % (Auto) Eos % (Auto) Baso % (Auto) Gran # Lymph # (Auto) [place] # (Auto) Eos # (Auto) Baso # (Auto) pCO2 19 L* pO2 120.0 H HCO3 9.1 L* ABG pH 7.29 L ABG Total CO2 9.7 L ABG O2 Saturation 98.0 ABG O2 Content 10.8 L ABG Base Excess -15.8 L ABG Hemoglobin 7.8 L ABG Carboxyhemoglobin 0.7 POC ABG HHb (Measured) 2.0 ABG Methemoglobin 1.1 ABG O2 Capacity 11.0 L VBG pH VBG pCO2 VBG HCO3 VBG Total CO2 VBG O2 Sat (Calc) VBG Base Excess VBG Potassium Hgb O2 Saturation 96.1 Sodium Chloride Glucose Lactate FiO2 28.0 Potassium Carbon Dioxide Anion Gap BUN Creatinine Est GFR ( Amer) Est GFR (Non-Af Amer) POC Glucose (mg/dL) Random Glucose Hemoglobin A1c 10.4 H D Lactic Acid Calcium Phosphorus Magnesium Total Bilirubin Direct Bilirubin AST ALT Alkaline Phosphatase NT-Pro-B Natriuret Pep Total Protein Albumin Globulin Albumin/Globulin Ratio 25-OH Vitamin D Total 35.6 Procalcitonin PTH Intact Whole Molec Venous Blood Potassium Random Vancomycin Tacrolimus (LC/MS/MS) Hep Bs Antigen Hep B Core IgM Ab 03/04/18 03/04/18 03/04/18 08:05 10:00 12:32 WBC RBC Hgb Hct MCV MCH MCHC RDW Plt Count Gran % Lymph % (Auto) [place] % (Auto) Eos % (Auto) Baso % (Auto) Gran # Lymph # (Auto) [place] # (Auto) Eos # (Auto) Baso # (Auto) pCO2 pO2 HCO3 ABG pH ABG Total CO2 ABG O2 Saturation ABG O2 Content ABG Base Excess ABG Hemoglobin ABG Carboxyhemoglobin POC ABG HHb (Measured) ABG Methemoglobin ABG O2 Capacity VBG pH VBG pCO2 VBG HCO3 VBG Total CO2 VBG O2 Sat (Calc) VBG Base Excess VBG Potassium Hgb O2 Saturation Sodium 132 Chloride 94 L Glucose Lactate FiO2 Potassium 4.2 Carbon Dioxide 10 L Anion Gap 32 H BUN 116 H Creatinine 7.1 H Est GFR ( Amer) 9 Est GFR (Non-Af Amer) 8 POC Glucose (mg/dL) 332 H 159 H Random Glucose 304 H* Hemoglobin A1c Lactic Acid Calcium 7.5 L Phosphorus 6.9 H Magnesium 2.0 Total Bilirubin Direct Bilirubin AST ALT Alkaline Phosphatase NT-Pro-B Natriuret Pep Total Protein Albumin Globulin Albumin/Globulin Ratio 25-OH Vitamin D Total Procalcitonin PTH Intact Whole [place] Venous Blood Potassium Random Vancomycin Tacrolimus (LC/MS/MS) Hep Bs Antigen Hep B Core IgM Ab 03/04/18 12:45 WBC RBC Hgb Hct MCV MCH MCHC RDW Plt Count Gran % Lymph % (Auto) [place] % (Auto) Eos % (Auto) Baso % (Auto) Gran # Lymph # (Auto) [place] # (Auto) Eos # (Auto) Baso # (Auto) pCO2 pO2 HCO3 ABG pH ABG Total CO2 ABG O2 Saturation ABG O2 Content ABG Base Excess ABG Hemoglobin ABG Carboxyhemoglobin POC ABG HHb (Measured) ABG Methemoglobin ABG O2 Capacity VBG pH VBG pCO2 VBG HCO3 VBG Total CO2 VBG O2 Sat (Calc) VBG Base Excess VBG Potassium Hgb O2 Saturation Sodium Chloride Glucose Lactate FiO2 Potassium Carbon Dioxide Anion Gap BUN Creatinine Est GFR ( Amer) Est GFR (Non-Af Amer) POC Glucose (mg/dL) Random Glucose Hemoglobin A1c Lactic Acid 0.7 Calcium Phosphorus Magnesium Total Bilirubin Direct Bilirubin AST ALT Alkaline Phosphatase NT-Pro-B Natriuret Pep Total Protein Albumin Globulin Albumin/Globulin Ratio 25-OH Vitamin D Total Procalcitonin PTH Intact Whole Molec Venous Blood Potassium Random Vancomycin Tacrolimus (LC/MS/MS) Hep Bs Antigen Hep B Core IgM Ab EKG/Cardiology Studies: Cardiology / EKG Studies 03/04/18 08:00 EKG [ELECTROCARDIOGRAM] Routine Comment: Reason For Exam: hyperK; r/o dysarythmia Critical Care Progress Note - Nutrition Nutrition: Nutrition Category Date Time Status Diabetic [Consistent Carbohydrate] [DIET] Diets 03/03/18 Dinner Ordered Addendum Addendum: 03/04/18 17:00 ICU Attending Addendum: Patient seen and examined. Case reviewed on round with housestaff. Agree with resident note above with the following additions/exceptions: 67M with CKD, PCKD s/p renal transplant admitted with hypotension dehydratoin vs sepsis Clinically improved with gentle fluid resusciation yesterday still acidemic likely from renal failure plan for HD today via fistula for the first time for acedemia keep fluid even f/u lytes post HD nephro on board Can taper steroids tomorrow, given stress dose (on Pred 5mg daily at home) Abx as per ID on merrem and doxy f/u blood sputum and urine cultures hold home anti-hypertensives CT shows large 8.3 infrarenal AAA which is chronic. He also has hx of aortic dissection. Reviewed imaging with Dr. Fulton (IR) who was familiar with this patient and will contact vascular surgeon from [facility] to help arrange f ollow-up to address AAA. In addition, now that he is on HD, less obstacles to imaging/contrast procedure. rest of care above Serenity Murray MD Customer Experience Analyst Crtical Care TIme: 30 mins
[2018-03-04] MEDS ORDERED: Pantoprazole 40 mg EC Tab PO SCH (10:00)
[2018-03-04] MEDS ORDERED: HUMALOG SQ SCH (10:00)
[2018-03-04] MEDS ORDERED: Insulin Lispro 1 UNITS/0.01 ML SC SCH (10:00)
--- NOTE | 2018-03-04 10:02 | CARD ---
APPROVED REPORT Date of service: 03/04/2018 EKG Measurement Heart [id number] <Conclusion> Normal sinus rhythm LAE Low voltage limb leads LAD Possible IMI, old STTW changes c/w ischemia
[2018-03-04 10:47] LABS: CALCIUM 7.5 mg/dL (8.4-10.5)
[2018-03-04] MEDS ORDERED: Sodium Chloride 0.9% 500 ML IV STA (11:06)
[2018-03-04] MEDS: Insulin Lispro (HUMAlog) HIGH Coverage SC SCH ×3 (13:38→21:46)
[2018-03-04] MEDS: POLYETHYLENE GLYCOL 3350 17 GM/Dose PACKET PO SCH ×2 (14:33→18:30)
[2018-03-04 16:07] LABS: HEPATITIS B SURFACE AG Negative (NEGATIVE)
[2018-03-04 16:12] LABS: HEPATITIS B CORE AB NEGATIVE (NEGATIVE)
--- NOTE | 2018-03-04 18:09 | CP.PCM.CON ---
History of Present Illness - History of Present Illness History of Present Illness: 67 year old male with PMH of polycystic kidney disease with chronic renal failure S/P renal transplant in 2006, DM, S/P aortic valve replacement, chronic anemia, dyslipidemia, HTN, chronic renal failure, pulmonary HTN, abdominal aortic aneurysm, came in to [facility] complaining of nausea and increasing fatigue for the past week. He feels weak and tired, denies fever or chills, has some nausea but no vomiting, no abdominal pain, no headache or dizziness, has dry cough, no colds, no diarrhea, no dysuria. CT C/A/P is showing is showing persistent right upper lobe infiltrate. Infectious Diseases consult is requested to further evaluate and manage. Review of Systems - Review of Systems All systems: reviewed and no additional remarkable complaints except (as per HPI) Past Patient History - Infectious Disease Hx of Infectious Diseases: None - Past Medical History & Family History Past Medical History?: Yes - Past Social History Smoking Status: Former Smoker - CARDIAC Hx Cardiac Disorders: Yes (CAD) Hx Hypertension: Yes Hx Peripheral Edema: Yes (+1 pitting ble) Other/Comment: Aortic Valve Replacement at [facility], aortic abdominal aneurysm unable to do sx at present time - PULMONARY Hx Respiratory Disorders: No - NEUROLOGICAL Hx Neurological Disorder: No - HEENT Hx HEENT Problems: Yes (wears glasses) - RENAL Hx Chronic Kidney Disease: Yes (stage iv) Hx Dialysis: Yes (left arm fistula) Other/Comment: Kidney transplant at [facility] in [facility], last dialysis oct 08 2006, hypertensive chronic kidney disease - ENDOCRINE/METABOLIC Hx Endocrine Disorders: Yes Hx Diabetes Mellitus Type 2: Yes - HEMATOLOGICAL/ONCOLOGICAL Hx Blood Disorders: Yes (blood transfusions most recent 3 wks ago) Hx Anemia: Yes (iron deficiency) Other/Comment: dx with anemia 2 yrs ago unable to get a colonoscopy due to aaa, may try new procedure in [place] as per pt, receives iron infusions from pt's dr yordy pope in [place] - INTEGUMENTARY Hx Dermatological Problems: Yes Other/Comment: multiple skin discolorations ble, pt refusing for me to removd his anti embolism stockings/shoes and socks to assess feet, pt stated "I'm embarrassed. I plan to see foot dr within a few weeks but I have had other health problems." pt stated. - MUSCULOSKELETAL/RHEUMATOLOGICAL Hx Musculoskeletal Disorders: Yes Hx Unsteady Gait: Yes - GASTROINTESTINAL Hx Gastrointestinal Disorders: Yes (poor appetite weight loss) Other/Comment: AAA, chronic hiccups - GENITOURINARY/GYNECOLOGICAL Hx Genitourinary Disorders: Yes Other/Comment: bilateral inguinal hernias (repaired) - PSYCHIATRIC Hx Psychophysiologic Disorder: No - SURGICAL HISTORY Hx Surgeries: Yes Hx Kidney Transplant: Yes (last hd oct 08 2006) Other/Comment: Aortic valve replacement, left forearm fistula not is use since october 08, 2006 - ANESTHESIA Hx Anesthesia: Yes Hx Anesthesia Reactions: No Hx Malignant Hyperthermia: No Meds Allergies/Adverse Reactions: Allergies Allergy/AdvReac Type Severity Reaction Status Date / Time No Known Allergies Allergy Verified 03/03/18 09:25 - Medications Medications: Current Medications Acetaminophen (Tylenol 325mg Tab) 650 mg PO Q6 PRN PRN Reason: TEMP>=99.5F Acetaminophen (Tylenol 650 Mg Supp) 650 mg RC Q6H PRN PRN Reason: TEMP>=99.5F Acetaminophen (Tylenol 650 Mg Supp) 650 mg RC Q6H PRN PRN Reason: Headache Acetaminophen (Tylenol 325mg Tab) 650 mg PO Q6H PRN PRN Reason: Headache Atorvastatin Calcium (Lipitor) 20 mg PO DIN [facility] Last Admin: 03/03/18 17:58 Dose: 20 mg Benzonatate (Tessalon Perles) 200 mg PO TID [facility] Calcitriol (Rocaltrol) 0.5 mcg PO DAILY [facility] Last Admin: 03/03/18 19:11 Dose: 0.5 mcg Calcium Carbonate (Oscal) 1,000 mg PO Q6 [facility] Last Admin: 03/03/18 19:11 Dose: 1,000 mg Cinacalcet (Sensipar) 30 mg PO DAILY [facility] Docusate Sodium (Colace) 100 mg PO TID [facility] Ezetimibe (Zetia) 10 mg PO DAILY [facility] Ferrous Gluconate (Fergon) 324 mg PO BID [facility] Last Admin: 03/03/18 19:12 Dose: 324 mg Hydrocortisone Sodium Succinate (Solu-Cortef) 50 mg IVP Q6H [facility] Sodium Bicarbonate 75 meq/ (Sodium Chloride) 1,075 mls @ 75 mls/hr IV [id number] [facility] Stop: 03/04/18 16:24 Last Admin: 03/03/18 15:42 Dose: 75 mls/hr Doxycycline Hyclate 100 mg/ (Sodium Chloride) 100 mls @ 100 mls/hr IVPB Q12 [place] PRN Reason: Protocol Meropenem 500 mg/ Sodium (Chloride) 50 mls @ 100 mls/hr IVPB Q24H [place] PRN Reason: Protocol Stop: 03/10/18 22:46 Insulin Human Lispro (Humalog Med) 0 units SC AC [place] PRN Reason: Protocol Last Admin: 03/03/18 17:58 Dose: 5 unit Levalbuterol HCl (Xopenex) 0.63 mg IH [id number] [facility] Last Admin: 03/03/18 20:22 Dose: 0.63 mg Ondansetron HCl (Zofran Inj) 4 mg IVP Q4H PRN PRN Reason: Nausea/Vomiting Pantoprazole Sodium (Protonix Ec Tab) 40 mg PO DAILY [facility] Pantoprazole Sodium (Protonix Ec Tab) 40 mg PO 0600 [facility] Polyethylene Glycol (Miralax) 17 gm PO BID [facility] Tacrolimus (Prograf Cap) 1 mg PO QPM [facility] Last Admin: 03/03/18 19:12 Dose: 1 mg Tacrolimus (Prograf Cap) 2 mg PO QAM [facility] Physical Exam - Constitutional Appears: Cachectic, Chronically Ill - Head Exam Head Exam: NORMAL INSPECTION - Neck Exam Neck exam: Negative for: Meningismus - Respiratory Exam Respiratory Exam: Decreased Breath Sounds - Cardiovascular Exam Cardiovascular Exam: +S1, +S2 - GI/Abdominal Exam GI & Abdominal Exam: Soft. absent: Tenderness Results - Vital Signs Recent Vital Signs: Last Vital Signs Temp 97.7 F 03/03/18 18:09 Pulse 87 03/03/18 20:17 Resp 46 H 03/03/18 19:10 BP 79/53 L 03/03/18 19:00 Pulse Ox 100 03/03/18 19:10 - Labs Result Diagrams: 03/04/18 06:40 03/04/18 10:00 Labs: Laboratory Results - last 24 hr 03/03/18 03/03/18 03/03/18 14:25 17:28 20:13 pO2 45 36 VBG pH 7.22 L 7.27 L VBG pCO2 39.0 L 32.0 L VBG HCO3 16.0 L 14.7 L VBG Total CO2 17.2 L 15.7 L VBG O2 Sat (Calc) 81.1 H 76.6 H VBG Base Excess -11.1 L -11.0 L VBG Potassium 4.7 4.2 Sodium 126.0 L 129.0 L Chloride 95.0 L 99.0 Glucose 296 H 168 H Lactate 2.3 H 1.6 FiO2 21.0 21.0 Potassium Carbon Dioxide Anion Gap BUN Creatinine Est GFR ( Amer) Est GFR (Non-Af Amer) POC Glucose (mg/dL) 269 H Random Glucose Calcium Phosphorus Magnesium Total Bilirubin AST ALT Alkaline Phosphatase Total Protein Albumin Globulin Albumin/Globulin Ratio Venous Blood Potassium 4.7 4.2 Random Vancomycin 03/03/18 03/03/18 20:13 20:13 pO2 VBG pH VBG pCO2 VBG HCO3 VBG Total CO2 VBG O2 Sat (Calc) VBG Base Excess VBG Potassium Sodium 129 L Chloride 98 Glucose Lactate FiO2 Potassium 4.1 Carbon Dioxide 14 L Anion Gap 22 H BUN 113 H Creatinine 6.9 H Est GFR ( Amer) 10 Est GFR (Non-Af Amer) 8 POC Glucose (mg/dL) Random Glucose 156 H Calcium 6.1 L* Phosphorus 5.8 H Magnesium 1.6 L Total Bilirubin 0.1 L AST 17 ALT 17 Alkaline Phosphatase 70 Total Protein 5.0 L Albumin 2.6 L Globulin 2.4 Albumin/Globulin Ratio 1.1 Venous Blood Potassium Random Vancomycin 24.4 Assessment & Plan - Assessment and Plan (Free Text) Plan: Assessment systemic inflammatory response syndrome, consider due to worsening renal failure with uremia, R/O sepsis due to right sided HCAP history of sepsis due to gram negative bacilli bacteremia on top of systemic viral illness with Influenza polycystic kidney disease S/P renal transplant in 2006 HTN abdominal aortic aneurysm with history of aortic dissection S/P aortic valve replacement dyslipidemia S/P bilateral inguinal hernia repair Plan Started patient on Merrem and Doxycycline pending blood, sputum cx, PCT; reviewed CT C/A/P showing right sided infiltrate patient will probably need dialysis will monitor clinically
--- NOTE | 2018-03-04 19:44 | CP.PCM.PN ---
Subjective - Date & Time of Evaluation Date of Evaluation: 03/04/18 Time of Evaluation: 10:00 - Subjective Subjective: Patient with dyspnea overnight; feeling cold; tolerating diet without nausea; Objective - Vital Signs/Intake and Output Vital Signs (last 24 hours): Temp Pulse Resp BP Pulse Ox 97.8 F 94 H 41 H 109/49 L 100 03/04/18 06:00 03/04/18 14:00 03/04/18 07:40 03/04/18 07:00 03/04/18 07:40 - Medications Medications: Current Medications Acetaminophen (Tylenol 325mg Tab) 650 mg PO Q6 PRN PRN Reason: TEMP>=99.5F Acetaminophen (Tylenol 650 Mg Supp) 650 mg RC Q6H PRN PRN Reason: TEMP>=99.5F Acetaminophen (Tylenol 650 Mg Supp) 650 mg RC Q6H PRN PRN Reason: Headache Acetaminophen (Tylenol 325mg Tab) 650 mg PO Q6H PRN PRN Reason: Headache Atorvastatin Calcium (Lipitor) 20 mg PO DIN [facility] Last Admin: 03/04/18 18:30 Dose: 20 mg Benzonatate (Tessalon Perles) 200 mg PO TID [facility] Last Admin: 03/04/18 18:41 Dose: 200 mg Calcitriol (Rocaltrol) 0.5 mcg PO DAILY [facility] Last Admin: 03/04/18 14:10 Dose: 0.5 mcg Calcium Acetate (Phoslo) 667 mg PO WM [facility] Last Admin: 03/04/18 18:31 Dose: 667 mg Calcium Carbonate (Oscal) 500 mg PO BID [facility] Last Admin: 03/04/18 18:31 Dose: 500 mg Cinacalcet (Sensipar) 30 mg PO DAILY [facility] Docusate Sodium (Colace) 100 mg PO TID [facility] Last Admin: 03/04/18 18:27 Dose: 100 mg Ezetimibe (Zetia) 10 mg PO DAILY [facility] Last Admin: 03/04/18 14:04 Dose: 10 mg Ferrous Gluconate (Fergon) 324 mg PO BID [facility] Last Admin: 03/04/18 18:28 Dose: 324 mg Hydrocortisone Sodium Succinate (Solu-Cortef) 50 mg IVP Q6H [facility] Last Admin: 03/04/18 18:39 Dose: 50 mg Doxycycline Hyclate 100 mg/ (Sodium Chloride) 100 mls @ 100 mls/hr IVPB Q12 [facility]; Protocol Last Admin: 03/04/18 13:40 Dose: 100 mls/hr Meropenem 500 mg/ Sodium (Chloride) 50 mls @ 100 mls/hr IVPB Q24H [facility]; Protocol Stop: 03/10/18 22:46 Last Admin: 03/03/18 23:19 Dose: 100 mls/hr Insulin Human Lispro (Humalog High) 0 units SC ACHS [facility]; Protocol Last Admin: 03/04/18 18:29 Dose: 2 u Levalbuterol HCl (Xopenex) 0.63 mg IH [id number] [facility] Last Admin: 03/04/18 13:12 Dose: 0.63 mg Midodrine (Proamatine) 5 mg PO TID [facility] Last Admin: 03/04/18 18:32 Dose: 5 mg Ondansetron HCl (Zofran Inj) 4 mg IVP Q4H PRN PRN Reason: Nausea/Vomiting Pantoprazole Sodium (Protonix Ec Tab) 40 mg PO 0600 [facility] Last Admin: 03/04/18 06:38 Dose: 40 mg Polyethylene Glycol (Miralax) 17 gm PO BID [facility] Last Admin: 03/04/18 14:33 Dose: Not Given Tacrolimus (Prograf Cap) 1 mg PO QPM [facility] Last Admin: 03/04/18 18:33 Dose: 1 mg Tacrolimus (Prograf Cap) 2 mg PO QAM [facility] Last Admin: 03/04/18 14:19 Dose: 2 mg - Labs Labs: 03/04/18 06:40 03/04/18 10:00 PT 12.8 SECONDS (9.4-12.5) H 03/03/18 10:20 INR 1.11 03/03/18 10:20 APTT 27.9 Seconds (25.1-36.5) 03/03/18 10:20 - Constitutional Appears: Non-toxic, No Acute Distress - Eye Exam Eye Exam: absent: Scleral icterus - Respiratory Exam Respiratory Exam: absent: Respiratory Distress Additional comments: rales present; - Cardiovascular Exam Cardiovascular Exam: RRR, Murmur. absent: Gallop, Rubs - GI/Abdominal Exam GI & Abdominal Exam: Distended, Soft. absent: Tenderness - Extremities Exam Additional comments: moderate bilateral leg edema; - Neurological Exam Neurological Exam: Alert, Awake - Psychiatric Exam Psychiatric exam: Normal Mood. absent: Agitated - Skin Skin Exam: Warm. absent: Cyanosis Assessment and Plan (1) Acute kidney injury Assessment & Plan: MYRNA on CKD IV; likely ATN in the setting of severe sepsis; no improvement with volume expansion; initiating HD today in the setting of worsening metabolic acidosis with tachypnea and impending need for intubation as well as persistent mild hyperkalemia; -2hr HD session using low blood flow to prevent dialysis dysequilibrium, high bicarb dialysate, keeping positive net fluid balance; next HD session for tomorrow; Status: Acute (2) Severe sepsis Assessment & Plan: Likely due to PNA; still mildly hypotensive; on meropenem dosed for HD and doxycycline; not removing volume on HD; Status: Acute (3) Anemia of renal disease Assessment & Plan: Hgb relatively stable; continue EPO per hematology; Status: Acute (4) Immunosuppression Assessment & Plan: On tacrolimus 2 mg in am and 1 mg in pm as well as prednisone 5 mg daily, continue; holding MMF in the setting of severe sepsis, will restart once improved; Status: Acute (5) Chronic kidney disease (CKD), stage IV (severe) Assessment & Plan: Failing renal allograft; baseline serum creatinine 3-4, however, may not recover to baseline following current ATN insult; will continue on HD (as MYRNA rather then ESRD) until signs of renal recovery; avoid nephrotoxic agents; Status: Chronic (6) AAA (abdominal aortic aneurysm) Assessment & Plan: Stable but concern for spontaneous rupture, f/u as outpatient; Status: Chronic (7) Chronic kidney disease-mineral and bone disorder Status: Acute (8) Renal transplant, status post Status: Chronic - Assessment and Plan (Free Text) Assessment: Thank you for this referral, we will be following up closely.
--- NOTE | 2018-03-04 21:26 | CP.PCM.PN ---
<Rafael Faye R - Last Filed: 03/04/18 21:23> Subjective - Date & Time of Evaluation Date of Evaluation: 03/04/18 Time of Evaluation: 09:00 - Subjective Subjective: PGY-[address] Knox No acute events noted overnight. Patient was seen being dialyzed. He was comfortable, he stated he felt better since arriving to the hospital. He denied headache, dizziness, fever, chest pain, back pain, heart palpitations, wheezing, cough, nausea, vomiting, constipation, diarrhea, dysuria, hematuria. Objective - Vital Signs/Intake and Output Vital Signs (last 24 hours): Temp Pulse Resp BP Pulse Ox 97.8 F 98 H 41 H 109/49 L 100 03/04/18 06:00 03/04/18 19:00 03/04/18 07:40 03/04/18 07:00 03/04/18 07:40 Intake and Output: 03/04/18 03/05/18 18:59 06:59 Output Total 300 Balance -300 - Medications Medications: Current Medications Acetaminophen (Tylenol 325mg Tab) 650 mg PO Q6 PRN PRN Reason: TEMP>=99.5F Acetaminophen (Tylenol 650 Mg Supp) 650 mg RC Q6H PRN PRN Reason: TEMP>=99.5F Acetaminophen (Tylenol 650 Mg Supp) 650 mg RC Q6H PRN PRN Reason: Headache Acetaminophen (Tylenol 325mg Tab) 650 mg PO Q6H PRN PRN Reason: Headache Atorvastatin Calcium (Lipitor) 20 mg PO DIN [facility] Last Admin: 03/04/18 18:30 Dose: 20 mg Benzonatate (Tessalon Perles) 200 mg PO TID [facility] Last Admin: 03/04/18 18:41 Dose: 200 mg Calcitriol (Rocaltrol) 0.5 mcg PO DAILY [facility] Last Admin: 03/04/18 14:10 Dose: 0.5 mcg Calcium Acetate (Phoslo) 667 mg PO WM [facility] Last Admin: 03/04/18 18:31 Dose: 667 mg Calcium Carbonate (Oscal) 500 mg PO BID [facility] Last Admin: 03/04/18 18:31 Dose: 500 mg Cinacalcet (Sensipar) 30 mg PO DAILY [facility] Docusate Sodium (Colace) 100 mg PO TID [facility] Last Admin: 03/04/18 18:27 Dose: 100 mg Ezetimibe (Zetia) 10 mg PO DAILY [facility] Last Admin: 03/04/18 14:04 Dose: 10 mg Ferrous Gluconate (Fergon) 324 mg PO BID [facility] Last Admin: 03/04/18 18:28 Dose: 324 mg Hydrocortisone Sodium Succinate (Solu-Cortef) 50 mg IVP Q6H [facility] Last Admin: 03/04/18 18:39 Dose: 50 mg Doxycycline Hyclate 100 mg/ (Sodium Chloride) 100 mls @ 100 mls/hr IVPB Q12 [facility]; Protocol Last Admin: 03/04/18 21:03 Dose: 100 mls/hr Meropenem 500 mg/ Sodium (Chloride) 50 mls @ 100 mls/hr IVPB Q24H [facility]; Protocol Stop: 03/10/18 22:46 Last Admin: 03/03/18 23:19 Dose: 100 mls/hr Insulin Human Lispro (Humalog High) 0 units SC ACHS [facility]; Protocol Last Admin: 03/04/18 18:29 Dose: 2 u Levalbuterol HCl (Xopenex) 0.63 mg IH [id number] [facility] Last Admin: 03/04/18 19:50 Dose: 0.63 mg Midodrine (Proamatine) 5 mg PO TID [facility] Last Admin: 03/04/18 18:32 Dose: 5 mg Ondansetron HCl (Zofran Inj) 4 mg IVP Q4H PRN PRN Reason: Nausea/Vomiting Pantoprazole Sodium (Protonix Ec Tab) 40 mg PO 0600 [facility] Last Admin: 03/04/18 06:38 Dose: 40 mg Polyethylene Glycol (Miralax) 17 gm PO BID [facility] Last Admin: 03/04/18 14:33 Dose: Not Given Tacrolimus (Prograf Cap) 1 mg PO QPM [facility] Last Admin: 03/04/18 18:33 Dose: 1 mg Tacrolimus (Prograf Cap) 2 mg PO QAM [facility] Last Admin: 03/04/18 14:19 Dose: 2 mg - Labs Labs: 03/04/18 06:40 03/04/18 10:00 PT 12.8 SECONDS (9.4-12.5) H 03/03/18 10:20 INR 1.11 03/03/18 10:20 APTT 27.9 Seconds (25.1-36.5) 03/03/18 10:20 - Additional Findings Additional findings: - Constitutional Appears: Cachectic - Head Exam Head Exam: ATRAUMATIC, NORMAL INSPECTION - Eye Exam Eye Exam: EOMI, Normal appearance, PERRL. absent: Scleral icterus - ENT Exam ENT Exam: Mucous Membranes Moist - Respiratory Exam Respiratory Exam: Chest Wall Tenderness, Clear to Auscultation Bilateral. absen t: Rales, Rhonchi, Wheezes - Cardiovascular Exam Cardiovascular Exam: REGULAR RHYTHM, +S1, +S2, Systolic Murmur. absent: Tachycardia - GI/Abdominal Exam GI & Abdominal Exam: Normal Bowel Sounds, Soft. absent: Distended, Firm, Guarding, Tenderness - Extremities Exam Extremities exam: Positive for: full ROM, normal inspection. Negative for: calf tenderness - Neurological Exam Neurological exam: Alert, CN II-XII Intact, Oriented x3, Reflexes Normal - Skin Skin Exam: Normal Color, Warm Assessment and Plan - Assessment and Plan (Free Text) Plan: Mr Goodwin is a 67 year old male with a PMHx of polycystic kidney disease s/p kidney transplant in 2006, insulin dependent diabetes, aortic valve replacement, anemia, hyperlipidemia, hypertension, secondary hyperparathyroidism, chronic kidney disease, pulmonary hypertension, diastolic congestive heart failure, cachexia, and abdominal aortic aneurysm, who presents for fatigue and weakness for the past 7 days: Chronic Kidney Disease Stage V -Failing transplanted kidney -Nephrology consult, Dr Wheeler * Patient dialyzed today - filtration only, no fluid was taken off as patient hypotensive -Renal Ultrasound: * Although the hydronephrosis within the transplant kidney is a new finding compared to the prior ultrasound performed 02/16/2014 it was present with s imilar degree on the prior CT scan 02/27/2017 compared to the current CT scan. Therefore I do not believe this represents acute obstructive uropathy. Severe Sepsis Stable Infiltrate Right Upper Lobe -Suspecting pneumonia at this point -CT chest/abd/pelvis w/o contrast: * Stable infiltrate right upper lobe. -Procalcitonin 150 -Infectious Disease consult, Dr Squires -Blood Cx 03/03 negative to date -F/U Urine Cx -CPT, incentive spirometer q2h, nasal cannula 2L prn -Benzonatate 200mg po tid -Doxycycline 100mg ivpb q12h -Meropenem 500mg ivpb q24h -Levalbuterol 0.63mg IH Q6H Hypotension -2/2 to severe sepsis -Monitor in ICU -1/2NS with sodium bicarb 75meq @ 75mls/hr -Midodrine 5mg po tid -Hold all home antihypertensives Symptomatic Anemia -Hgb 8.8 on admission -GI bleed vs anemia of CKD -Consult GI, Dr Cordova, for questionable GI bleed * Recommend Colonoscopy as outpatient after AAA addressed -Type and screen -Ferrous Gluconate 324mg po bid (home med) -F/U FOBT Status Post Renal Transplant -Heme/Onc consult, Dr Leigh -Tacrolimus level 15.5 -Tacrolimus 2mg po Qam, 1mg po Qpm Hydronephrotic Transplanted Kidney -CT chest/abd/pelvis: * 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 Stable polycystic kidney disease. Chronic Kidney Disease - Mineral and Bone Disorder -PTH intact 469 -Calcitriol 0.5mcg po qd -Calcium carbonate 1000mg po q6h -Phoslo 667mg po wm -Cinacalcet 30mg po qd Small Bilateral Pleural Effusions -CT chest/abd/pelvis w/o contrast: * New small bilateral pleural effusions with associated compressive atelectasis. -Possibly 2/2 acute on chronic CHF Acute on Chronic CHF -ProBNP -Echo 07/2017 showed LVH, grade 1 abnormal relaxation patter, normal EF -Will not give diuretics 2/2 to hypotension -Is/Os, maintain head of bed 30 degrees, daily weights Abdominal Aortic Aneurysm -CT chest/abd/pelvis w/o contrast: * Stable infrarenal abdominal aortic aneurysm. Mean axial diameter 8.3 cm. Cephalocaudal dimension 13.1 cm. -Patient was to have repair this past year which was cancelled due to lab abnormalities - it seems patient never followed-up Metabolic Acidosis -2/2 uremia -Ph 7.27 on vbg on admission -1/2NS with sodium bicarb 75meq @ 75mls/hr Elevated Lactate on VBG, Resolved -F/U Urine Cx -Blood Cx 03/03 negative to date IDDM2 -HgbA1c 10.4 -RISS high dose SC AC; high dose necessary due to being on steroids -Accuchecks ACHS -Podiatry consult, Dr Aragon, for diabetic foot care HLD -Atorvastatin 20mg po din -Ezetimibe 10mg po qd (home med) Prophylaxis -Protonix 40mg po qd -Consistent carb diet -SCDs -OT, PT, ST <Mart Knox U - Last Filed: 03/11/18 22:14> Objective - Vital Signs/Intake and Output Vital Signs (last 24 hours): Temp Pulse Resp BP Pulse Ox 98.9 F 81 32 H 120/72 92 L 03/10/18 08:00 03/10/18 16:00 03/10/18 16:00 03/10/18 16:00 03/10/18 16:00 - Labs Labs: 03/10/18 06:50 03/10/18 06:50 PT 12.8 SECONDS (9.4-12.5) H 03/03/18 10:20 INR 1.11 03/03/18 10:20 APTT 27.9 Seconds (25.1-36.5) 03/03/18 10:20 Attending/Attestation - Attestation I have personally seen and examined this patient.: Yes I have fully participated in the care of the patient.: Yes I have reviewed all pertinent clinical information, including history, physical exam and plan: Yes Notes (Text): Please see/read my dictated notes.
[2018-03-04] MEDS: Meropenem 500 MG in Sodium Chloride 0.9% 50 ML IVPB SCH (22:00)
[2018-03-05 00:47] LABS: PH,URINE 5.5 (4.7-8.0); URINE BILIRUBIN NEGATIVE (NEGATIVE); URINE BLOOD NEGATIVE (NEGATIVE); URINE GLUCOSE (UA) NEGATIVE (NEGATIVE); URINE LEUKOCYTE ESTERASE NEGATIVE Leu/uL (NEGATIVE); URINE PROTEIN 30 mg/dL (<30 mg/dL); URINE UROBILINOGEN 0.2 E.U./dL (<1 E.U./dL)
[2018-03-05 01:00] LABS: URINE APPEARANCE CLEAR (CLEAR); URINE COLOR YELLOW (YELLOW)
[2018-03-05 01:47] LABS: URINE AMORPHOUS SEDIMENT FEW; URINE BACTERIA SMALL (NEG); URINE EPITHELIAL CELLS 0 - 2 /hpf (0-5); URINE RBC 0 - 2 /hpf (0-2); URINE WBC 0 - 2 /hpf (0-6)
[2018-03-05] MEDS: Levalbuterol 0.63 MG/3 ML Inhal Soln UD IH SCH ×4 (02:40→20:05)
[2018-03-05] MEDS: Pantoprazole 40 mg EC Tab PO SCH (05:14)
[2018-03-05 06:41] LABS: GRAN # 5.33 (1.4-6.5); GRAN % 95.2 % (50.0-68.0); LYMPH # 0.2 (1.2-3.4); LYMPH % 3.4 % (22.0-35.0); MEAN CELL VOLUME 70.5 fl (80.0-105.0); MEAN CORPUSCULAR HEMOGLOBIN 22.8 pg (25.0-35.0); MEAN CORPUSCULAR HGB CONC 32.3 g/dl (31.0-37.0); MONO # 0.1 (0.1-0.6); MONO % 1.4 % (1.0-6.0); PLATELET COUNT 219 10^3/uL (120.0-450.0); RBC 2.81 10^6/uL (3.5-6.1); RED CELL DISTRIBUTION WIDTH 19.6 % (11.5-14.5); WHITE BLOOD COUNT 5.6 10^3/ul (4.5-11.0)
[2018-03-05 06:44] LABS: ALB/GLOB RATIO 1.6 (1.1-1.8); ALBUMIN 3.3 g/dL (3.0-4.8); BILIRUBIN,DIRECT 0.3 mg/dL (0.0-0.4); CALCIUM 7.8 mg/dL (8.4-10.5)
[2018-03-05 06:55] LABS: HEMOGLOBIN 6.4 g/dL (14.0-18.0)
[2018-03-05 07:48] LABS: MEAN CELL VOLUME 70.6 fl (80.0-105.0); MEAN CORPUSCULAR HEMOGLOBIN 22.9 pg (25.0-35.0); MEAN CORPUSCULAR HGB CONC 32.4 g/dl (31.0-37.0); PLATELET COUNT 202 10^3/uL (120.0-450.0); RBC 3.06 10^6/uL (3.5-6.1); RED CELL DISTRIBUTION WIDTH 19.7 % (11.5-14.5); WHITE BLOOD COUNT 6.1 10^3/ul (4.5-11.0)
--- NOTE | 2018-03-05 07:50 | CP.CCUPN ---
<Yamilka Lowery - Last Filed: 03/05/18 08:38> CCU Subjective - Physician Review Subjective (Free Text): Yamilka Lowery, PGY-1, CCU Progress Note for Dr. Flores Patient seen and examined at bedside. No overnight events reported. Patient reports improved weakness, worsening shortness of breath, and constipation. Patient denies headache, dizziness, fever, chest pain, back pain, heart palpitations, wheezing, cough, nausea, vomiting, diarrhea, dysuria, hematuria, numbness, and tingling. Critical Care Time Spent (in minutes): 60 CCU Objective - Vital Signs / Intake & Output Vital Signs (Last 4 hours): Vital Signs Pulse Resp BP Pulse Ox 03/05/18 06:30 102 H 57 H 03/05/18 06:20 98 H 62 H 03/05/18 06:10 99 H 67 H 03/05/18 06:00 100 H 38 H 129/63 03/05/18 05:50 99 H 32 H 03/05/18 05:41 111 H 49 H 03/05/18 05:40 109 H 95 H 03/05/18 05:30 102 H 32 H 129/67 100 03/05/18 05:20 105 H 65 H 100 03/05/18 05:15 102 H 36 H 122/68 100 03/05/18 05:10 101 H 29 H 100 03/05/18 05:00 101 H 53 H 129/70 100 03/05/18 04:50 100 H 31 H 100 03/05/18 04:45 102 H 28 H 130/71 100 03/05/18 04:40 100 H 26 H 100 03/05/18 04:30 102 H 132/75 100 03/05/18 04:20 101 H 30 H 100 03/05/18 04:15 101 H 26 H 128/63 100 03/05/18 04:10 101 H 32 H 100 03/05/18 04:00 102 H 27 H 129/69 100 03/05/18 03:50 101 H 28 H 100 Intake and Output (Last 8hrs): Intake & Output 03/04/18 03/05/18 03/05/18 22:59 06:59 14:59 Intake Total 400 Output Total 300 500 Balance -300 -100 Intake: IV 250 Right Upper arm 250 Oral 150 Output: Urine 300 500 Urine, Voided 300 500 Other 0 Other: # Voids Urine, Voided 1 3 - Physical Exam Head: Positive for: Atraumatic, Normocephalic Pupils: Positive for: PERRL Extroacular Muscles: Positive for: EOMI Conjunctiva: Positive for: Normal Mouth: Positive for: Moist Mucous Membranes Neck: Positive for: Normal Range of Motion Respiratory/Chest: Positive for: Clear to Auscultation, Good Air Exchange, Respiratory Distress, Decreased Breath Sounds (at the bases), Other. Negative for: Accessory Muscle Use, Wheezes, Rales, Retracting, Rhonchi Cardiovascular: Positive for: Regular Rate and Rhythm, Murmurs (3/5 systolic ej ection murmur in RUSB), Normal S1, S2 Abdomen: Positive for: Distention (firm). 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 Pt states is not used. He is currently not on dialysis.). Negative for: Cyanosis, Edema Lower Extremity: Positive for: Normal Inspection. Negative for: Edema Neurological: Positive for: GCS=15, CN II-XII Intact, Speech Normal, Motor Func Grossly Intact, Other (MSK +4/5 throughout) Skin: Positive for: Warm, Dry, Pale. Negative for: Rashes Psychiatric: Positive for: Alert, Oriented x 3, Normal Insight, Normal Concentration - Medications Active Medications: Active Medications Generic Name Dose Route Start Last Admin Trade Name Freq PRN Reason Stop Dose Admin Acetaminophen 650 mg 03/03/18 19:21 Tylenol 325mg Tab PO Q6 PRN TEMP>=99.5F Acetaminophen 650 mg 03/03/18 19:21 Tylenol 650 Mg Supp RC Q6H PRN TEMP>=99.5F Acetaminophen 650 mg 03/03/18 19:28 Tylenol 650 Mg Supp RC Q6H PRN Headache Acetaminophen 650 mg 03/03/18 19:29 Tylenol 325mg Tab PO Q6H PRN Headache Atorvastatin Calcium 20 mg 03/03/18 17:00 03/04/18 18:30 Lipitor PO 20 mg DIN TA[place]NA Administration Benzonatate 200 mg 03/04/18 10:00 03/04/18 18:41 Tessalon Perles PO 200 mg TID TA[place]NA Administration Calcitriol 0.5 mcg 03/03/18 15:30 03/04/18 14:10 Rocaltrol PO 0.5 mcg DAILY TA[place] Administration Calcium Acetate 667 mg 03/04/18 12:00 03/04/18 18:31 Phoslo PO 667 mg WM [place] Administration Calcium Carbonate 500 mg 03/04/18 18:00 03/04/18 18:31 Oscal PO 500 mg BID TA[place]NA Administration Cinacalcet 30 mg 03/04/18 10:00 Sensipar PO DAILY [place] Docusate Sodium 100 mg 03/04/18 10:00 03/04/18 18:27 Colace PO 100 mg TID [place] Administration Ezetimibe 10 mg 03/04/18 10:00 03/04/18 14:04 Zetia PO 10 mg DAILY TA[place]NA Administration Ferrous Gluconate 324 mg 03/03/18 18:00 03/04/18 18:28 Fergon PO 324 mg BID TA[place]NA Administration Hydrocortisone Sodium Succinate 50 mg 03/03/18 18:15 03/05/18 05:14 Solu-Cortef IVP 50 mg Q6H TA[place]NA Administration Doxycycline Hyclate 100 mg/ 100 mls @ 100 mls/hr 03/03/18 22:00 03/04/18 21:03 Sodium Chloride IVPB 100 mls/hr Q12 TA[place]NA Administration Protocol Meropenem 500 mg/ Sodium 50 mls @ 100 mls/hr 03/03/18 22:45 03/04/18 22:00 Chloride IVPB 03/10/18 22:46 100 mls/hr Q24H [place]NA Administration Protocol Insulin Human Lispro 0 units 03/04/18 11:30 03/04/18 21:46 Humalog High SC Not Given ACHS TA[place]NA Protocol Levalbuterol HCl 0.63 mg 03/03/18 20:00 03/05/18 07:00 Xopenex IH 0.63 mg [id number] [place]NA Administration Midodrine 5 mg 03/03/18 23:45 03/04/18 18:32 Proamatine PO 5 mg TID [place] Administration Ondansetron HCl 4 mg 03/03/18 19:21 Zofran Inj IVP Q4H PRN Nausea/Vomiting Pantoprazole Sodium 40 mg 03/04/18 06:00 03/05/18 05:14 Protonix Ec Tab PO 40 mg 0600 TA[place]NA Administration Polyethylene Glycol 17 gm 03/04/18 10:00 03/04/18 14:33 Miralax PO Not Given BID TA[place]NA Tacrolimus 1 mg 03/03/18 18:00 03/04/18 18:33 Prograf Cap PO 1 mg QPM TA[place] Administration Tacrolimus 2 mg 03/04/18 10:00 03/04/18 14:19 Prograf Cap PO 2 mg QAM TA[place]NA Administration - Patient Studies Lab Studies: Microbiology Studies 03/03/18 20:18 Blood Culture - Preliminary Blood NO GROWTH AFTER 24 HOURS 03/03/18 20:18 Blood Culture - Preliminary Blood NO GROWTH AFTER 24 HOURS 03/03/18 15:25 Blood Culture - Preliminary Blood-Venous NO GROWTH AFTER 24 HOURS 03/03/18 14:27 Blood Culture - Preliminary Blood-Venous NO GROWTH AFTER 24 HOURS Lab Studies 03/05/18 03/05/18 03/05/18 Range/Units 05:50 05:50 05:30 WBC 5.6 D (4.5-11.0) 10^3/ul RBC 2.81 L (3.5-6.1) 10^6/uL Hgb 6.4 L* D (14.0-18.0) g/dL Hct 19.8 L* (42.0-52.0) % MCV 70.5 L (80.0-105.0) fl MCH 22.8 L (25.0-35.0) pg MCHC 32.3 (31.0-37.0) g/dl RDW 19.6 H (11.5-14.5) % Plt Count 219 (120.0-450.0) 10^3/uL Gran % 95.2 H (50.0-68.0) % Lymph % (Auto) 3.4 L (22.0-35.0) % [place] % (Auto) 1.4 (1.0-6.0) % Eos % (Auto) 0.0 L (1.5-5.0) % Baso % (Auto) 0.0 (0.0-3.0) % Gran # 5.33 (1.4-6.5) Lymph # (Auto) 0.2 L (1.2-3.4) [place] # (Auto) 0.1 (0.1-0.6) Eos # (Auto) 0.0 (0.0-0.7) Baso # (Auto) 0.00 (0.0-2.0) K/mm3 pCO2 (35-45) mm/Hg pO2 (80-100) mm/Hg HCO3 (21-28) mmol/L ABG pH (7.35-7.45) ABG Total CO2 (22-28) mmol.L ABG O2 Saturation (95-98) % ABG O2 Content (15-23) ML/dl ABG Base Excess (-2.0-3.0) mmol/L ABG Hemoglobin (11.7-17.4) g/dL ABG Carboxyhemoglobin (0.5-1.5) % POC ABG HHb (Measured) (0-5) % ABG Methemoglobin (0.0-3.0) % ABG O2 Capacity (16-24) mL/dl Hgb O2 Saturation (95.0-98.0) % FiO2 % Sodium 136 (132-148) mmol/L Potassium 4.5 (3.6-5.0) mmol/L Chloride 96 L (98-107) mmol/L Carbon Dioxide 13 L (21-33) mmol/L Anion Gap 31 H (10-20) BUN 87 H (7-21) mg/dL Creatinine 5.2 H (0.8-1.5) mg/dl Est GFR ( Amer) 14 Est GFR (Non-Af Amer) 11 POC Glucose (mg/dL) (65-110) mg/dL Random Glucose 277 H (70-110) mg/dL Hemoglobin A1c (4.2-6.5) % Lactic Acid (0.7-2.1) mmol/L Calcium 7.8 L (8.4-10.5) mg/dL Phosphorus 5.7 H (2.5-4.5) mg/dL Magnesium 2.1 (1.7-2.2) mg/dL Total Bilirubin 0.3 (0.2-1.3) mg/dL Direct Bilirubin 0.3 (0.0-0.4) mg/dL AST 24 (17-59) U/L ALT 22 (7-56) U/L Alkaline Phosphatase 74 (38-126) U/L Total Protein 5.4 L (5.8-8.3) g/dL Albumin 3.3 (3.0-4.8) g/dL Globulin 2.1 gm/dL Albumin/Globulin Ratio 1.6 (1.1-1.8) 25-OH Vitamin D Total (30.0-100.0) NG/ML Procalcitonin (0.19-0.49) NG/ML PTH Intact Whole Molec (14-64) pg/mL Urine Color (YELLOW) Urine Appearance (CLEAR) Urine pH (4.7-8.0) Ur Specific [place] (1.005-1.035) Urine Protein (<30 mg/dL) mg/dL Urine Glucose (UA) (NEGATIVE) mg/dL Urine Ketones (NEGATIVE) mg/dL Urine Blood (NEGATIVE) Urine Nitrate (NEGATIVE) Urine Bilirubin (NEGATIVE) Urine Urobilinogen (<1 E.U./dL) E.U./dL Ur Leukocyte Esterase (NEGATIVE) Jackie/uL Urine RBC (0-2) /hpf Urine WBC (0-6) /hpf Ur Epithelial Cells (0-5) /hpf Amorphous Sediment Urine Bacteria (NEG) Tacrolimus (LC/MS/MS) (5.0-20.0) mcg/L Hep Bs Antigen (NEGATIVE) Hep Bs Antibody (NEGATIVE) Hep B Core IgM Ab (NEGATIVE) 03/04/18 03/04/18 03/04/18 Range/Units 23:41 21:33 17:16 WBC (4.5-11.0) 10^3/ul RBC (3.5-6.1) 10^6/uL Hgb (14.0-18.0) g/dL Hct (42.0-52.0) % MCV (80.0-105.0) fl MCH (25.0-35.0) pg MCHC (31.0-37.0) g/dl RDW (11.5-14.5) % Plt Count (120.0-450.0) 10^3/uL Gran % (50.0-68.0) % Lymph % (Auto) (22.0-35.0) % [place] % (Auto) (1.0-6.0) % Eos % (Auto) (1.5-5.0) % Baso % (Auto) (0.0-3.0) % Gran # (1.4-6.5) Lymph # (Auto) (1.2-3.4) [place] # (Auto) (0.1-0.6) Eos # (Auto) (0.0-0.7) Baso # (Auto) (0.0-2.0) K/mm3 pCO2 (35-45) mm/Hg pO2 (80-100) mm/Hg HCO3 (21-28) mmol/L ABG pH (7.35-7.45) ABG Total CO2 (22-28) mmol.L ABG O2 Saturation (95-98) % ABG O2 Content (15-23) ML/dl ABG Base Excess (-2.0-3.0) mmol/L ABG Hemoglobin (11.7-17.4) g/dL ABG Carboxyhemoglobin (0.5-1.5) % POC ABG HHb (Measured) (0-5) % ABG Methemoglobin (0.0-3.0) % ABG O2 Capacity (16-24) mL/dl Hgb O2 Saturation (95.0-98.0) % FiO2 % Sodium (132-148) mmol/L Potassium (3.6-5.0) mmol/L Chloride (98-107) mmol/L Carbon Dioxide (21-33) mmol/L Anion Gap (10-20) BUN (7-21) mg/dL Creatinine (0.8-1.5) mg/dl Est GFR ( Amer) Est GFR (Non-Af Amer) POC Glucose (mg/dL) 185 H 220 H (65-110) mg/dL Random Glucose (70-110) mg/dL Hemoglobin A1c (4.2-6.5) % Lactic Acid (0.7-2.1) mmol/L Calcium (8.4-10.5) mg/dL Phosphorus (2.5-4.5) mg/dL Magnesium (1.7-2.2) mg/dL Total Bilirubin (0.2-1.3) mg/dL Direct Bilirubin (0.0-0.4) mg/dL AST (17-59) U/L ALT (7-56) U/L Alkaline Phosphatase (38-126) U/L Total Protein (5.8-8.3) g/dL Albumin (3.0-4.8) g/dL Globulin gm/dL Albumin/Globulin Ratio (1.1-1.8) 25-OH Vitamin D Total (30.0-100.0) NG/ML Procalcitonin (0.19-0.49) NG/ML PTH Intact Whole Molec (14-64) pg/mL Urine Color Yellow (YELLOW) Urine Appearance Clear (CLEAR) Urine pH 5.5 (4.7-8.0) Ur Specific [place] 1.020 (1.005-1.035) Urine Protein 30 H (<30 mg/dL) mg/dL Urine Glucose (UA) Negative (NEGATIVE) mg/dL Urine Ketones Negative (NEGATIVE) mg/dL Urine Blood Negative (NEGATIVE) Urine Nitrate Negative (NEGATIVE) Urine Bilirubin Negative (NEGATIVE) Urine Urobilinogen 0.2 (<1 E.U./dL) E.U./dL Ur Leukocyte Esterase Negative (NEGATIVE) Jackie/uL Urine RBC 0 - 2 (0-2) /hpf Urine WBC 0 - 2 (0-6) /hpf Ur Epithelial Cells 0 - 2 (0-5) /hpf Amorphous Sediment Few Urine Bacteria Small (NEG) Tacrolimus (LC/MS/MS) (5.0-20.0) mcg/L Hep Bs Antigen (NEGATIVE) Hep Bs Antibody (NEGATIVE) Hep B Core IgM Ab (NEGATIVE) 03/04/18 03/04/18 03/04/18 Range/Units 12:45 12:32 10:00 WBC (4.5-11.0) 10^3/ul RBC (3.5-6.1) 10^6/uL Hgb (14.0-18.0) g/dL Hct (42.0-52.0) % MCV (80.0-105.0) fl MCH (25.0-35.0) pg MCHC (31.0-37.0) g/dl RDW (11.5-14.5) % Plt Count (120.0-450.0) 10^3/uL Gran % (50.0-68.0) % Lymph % (Auto) (22.0-35.0) % [place] % (Auto) (1.0-6.0) % Eos % (Auto) (1.5-5.0) % Baso % (Auto) (0.0-3.0) % Gran # (1.4-6.5) Lymph # (Auto) (1.2-3.4) [place] # (Auto) (0.1-0.6) Eos # (Auto) (0.0-0.7) Baso # (Auto) (0.0-2.0) K/mm3 pCO2 (35-45) mm/Hg pO2 (80-100) mm/Hg HCO3 (21-28) mmol/L ABG pH (7.35-7.45) ABG Total CO2 (22-28) mmol.L ABG O2 Saturation (95-98) % ABG O2 Content (15-23) ML/dl ABG Base Excess (-2.0-3.0) mmol/L ABG Hemoglobin (11.7-17.4) g/dL ABG Carboxyhemoglobin (0.5-1.5) % POC ABG HHb (Measured) (0-5) % ABG Methemoglobin (0.0-3.0) % ABG O2 Capacity (16-24) mL/dl Hgb O2 Saturation (95.0-98.0) % FiO2 % Sodium 132 (132-148) mmol/L Potassium 4.2 (3.6-5.0) mmol/L Chloride 94 L (98-107) mmol/L Carbon Dioxide 10 L (21-33) mmol/L Anion Gap 32 H (10-20) BUN 116 H (7-21) mg/dL Creatinine 7.1 H (0.8-1.5) mg/dl Est GFR ( Amer) 9 Est GFR (Non-Af Amer) 8 POC Glucose (mg/dL) 159 H (65-110) mg/dL Random Glucose 304 H* (70-110) mg/dL Hemoglobin A1c (4.2-6.5) % Lactic Acid 0.7 (0.7-2.1) mmol/L Calcium 7.5 L (8.4-10.5) mg/dL Phosphorus 6.9 H (2.5-4.5) mg/dL Magnesium 2.0 (1.7-2.2) mg/dL Total Bilirubin (0.2-1.3) mg/dL Direct Bilirubin (0.0-0.4) mg/dL AST (17-59) U/L ALT (7-56) U/L Alkaline Phosphatase (38-126) U/L Total Protein (5.8-8.3) g/dL Albumin (3.0-4.8) g/dL Globulin gm/dL Albumin/Globulin Ratio (1.1-1.8) 25-OH Vitamin D Total (30.0-100.0) NG/ML Procalcitonin (0.19-0.49) NG/ML PTH Intact Whole Molec (14-64) pg/mL Urine Color (YELLOW) Urine Appearance (CLEAR) Urine pH (4.7-8.0) Ur Specific [place] (1.005-1.035) Urine Protein (<30 mg/dL) mg/dL Urine Glucose (UA) (NEGATIVE) mg/dL Urine Ketones (NEGATIVE) mg/dL Urine Blood (NEGATIVE) Urine Nitrate (NEGATIVE) Urine Bilirubin (NEGATIVE) Urine Urobilinogen (<1 E.U./dL) E.U./dL Ur Leukocyte Esterase (NEGATIVE) Jackie/uL Urine RBC (0-2) /hpf Urine WBC (0-6) /hpf Ur Epithelial Cells (0-5) /hpf Amorphous Sediment Urine Bacteria (NEG) Tacrolimus (LC/MS/MS) (5.0-20.0) mcg/L Hep Bs Antigen (NEGATIVE) Hep Bs Antibody (NEGATIVE) Hep B Core IgM Ab (NEGATIVE) 03/04/18 03/04/18 03/04/18 Range/Units 08:30 08:05 08:05 WBC (4.5-11.0) 10^3/ul RBC (3.5-6.1) 10^6/uL Hgb (14.0-18.0) g/dL Hct (42.0-52.0) % MCV (80.0-105.0) fl MCH (25.0-35.0) pg MCHC (31.0-37.0) g/dl RDW (11.5-14.5) % Plt Count (120.0-450.0) 10^3/uL Gran % (50.0-68.0) % Lymph % (Auto) (22.0-35.0) % [place] % (Auto) (1.0-6.0) % Eos % (Auto) (1.5-5.0) % Baso % (Auto) (0.0-3.0) % Gran # (1.4-6.5) Lymph # (Auto) (1.2-3.4) [place] # (Auto) (0.1-0.6) Eos # (Auto) (0.0-0.7) Baso # (Auto) (0.0-2.0) K/mm3 pCO2 19 L* (35-45) mm/Hg pO2 120.0 H (80-100) mm/Hg HCO3 9.1 L* (21-28) mmol/L ABG pH 7.29 L (7.35-7.45) ABG Total CO2 9.7 L (22-28) mmol.L ABG O2 Saturation 98.0 (95-98) % ABG O2 Content 10.8 L (15-23) ML/dl ABG Base Excess -15.8 L (-2.0-3.0) mmol/L ABG Hemoglobin 7.8 L (11.7-17.4) g/dL ABG Carboxyhemoglobin 0.7 (0.5-1.5) % POC ABG HHb (Measured) 2.0 (0-5) % ABG Methemoglobin 1.1 (0.0-3.0) % ABG O2 Capacity 11.0 L (16-24) mL/dl Hgb O2 Saturation 96.1 (95.0-98.0) % FiO2 28.0 % Sodium (132-148) mmol/L Potassium (3.6-5.0) mmol/L Chloride (98-107) mmol/L Carbon Dioxide (21-33) mmol/L Anion Gap (10-20) BUN (7-21) mg/dL Creatinine (0.8-1.5) mg/dl Est GFR ( Amer) Est GFR (Non-Af Amer) POC Glucose (mg/dL) 332 H (65-110) mg/dL Random Glucose (70-110) mg/dL Hemoglobin A1c (4.2-6.5) % Lactic Acid (0.7-2.1) mmol/L Calcium (8.4-10.5) mg/dL Phosphorus (2.5-4.5) mg/dL Magnesium (1.7-2.2) mg/dL Total Bilirubin (0.2-1.3) mg/dL Direct Bilirubin (0.0-0.4) mg/dL AST (17-59) U/L ALT (7-56) U/L Alkaline Phosphatase (38-126) U/L Total Protein (5.8-8.3) g/dL Albumin (3.0-4.8) g/dL Globulin gm/dL Albumin/Globulin Ratio (1.1-1.8) 25-OH Vitamin D Total (30.0-100.0) NG/ML Procalcitonin (0.19-0.49) NG/ML PTH Intact Whole Molec (14-64) pg/mL Urine Color (YELLOW) Urine Appearance (CLEAR) Urine pH (4.7-8.0) Ur Specific [place] (1.005-1.035) Urine Protein (<30 mg/dL) mg/dL Urine Glucose (UA) (NEGATIVE) mg/dL Urine Ketones (NEGATIVE) mg/dL Urine Blood (NEGATIVE) Urine Nitrate (NEGATIVE) Urine Bilirubin (NEGATIVE) Urine Urobilinogen (<1 E.U./dL) E.U./dL Ur Leukocyte Esterase (NEGATIVE) Jackie/uL Urine RBC (0-2) /hpf Urine WBC (0-6) /hpf Ur Epithelial Cells (0-5) /hpf Amorphous Sediment Urine Bacteria (NEG) Tacrolimus (LC/MS/MS) (5.0-20.0) mcg/L Hep Bs Antigen (NEGATIVE) Hep Bs Antibody Indeterminate (NEGATIVE) Hep B Core IgM Ab (NEGATIVE) 03/04/18 03/04/18 03/04/18 Range/Units 06:40 06:40 06:40 WBC (4.5-11.0) 10^3/ul RBC (3.5-6.1) 10^6/uL Hgb (14.0-18.0) g/dL Hct (42.0-52.0) % MCV (80.0-105.0) fl MCH (25.0-35.0) pg MCHC (31.0-37.0) g/dl RDW (11.5-14.5) % Plt Count (120.0-450.0) 10^3/uL Gran % (50.0-68.0) % Lymph % (Auto) (22.0-35.0) % [place] % (Auto) (1.0-6.0) % Eos % (Auto) (1.5-5.0) % Baso % (Auto) (0.0-3.0) % Gran # (1.4-6.5) Lymph # (Auto) (1.2-3.4) [place] # (Auto) (0.1-0.6) Eos # (Auto) (0.0-0.7) Baso # (Auto) (0.0-2.0) K/mm3 pCO2 (35-45) mm/Hg pO2 (80-100) mm/Hg HCO3 (21-28) mmol/L ABG pH (7.35-7.45) ABG Total CO2 (22-28) mmol.L ABG O2 Saturation (95-98) % ABG O2 Content (15-23) ML/dl ABG Base Excess (-2.0-3.0) mmol/L ABG Hemoglobin (11.7-17.4) g/dL ABG Carboxyhemoglobin (0.5-1.5) % POC ABG HHb (Measured) (0-5) % ABG Methemoglobin (0.0-3.0) % ABG O2 Capacity (16-24) mL/dl Hgb O2 Saturation (95.0-98.0) % FiO2 % Sodium 131 L (132-148) mmol/L Potassium 5.3 H (3.6-5.0) mmol/L Chloride 94 L (98-107) mmol/L Carbon Dioxide 11 L (21-33) mmol/L Anion Gap 31 H (10-20) BUN 119 H (7-21) mg/dL Creatinine 6.6 H (0.8-1.5) mg/dl Est GFR ( Amer) 10 Est GFR (Non-Af Amer) 8 POC Glucose (mg/dL) (65-110) mg/dL Random Glucose 288 H (70-110) mg/dL Hemoglobin A1c 10.4 H D (4.2-6.5) % Lactic Acid (0.7-2.1) mmol/L Calcium 7.5 L (8.4-10.5) mg/dL Phosphorus 6.9 H (2.5-4.5) mg/dL Magnesium 2.1 (1.7-2.2) mg/dL Total Bilirubin 0.4 (0.2-1.3) mg/dL Direct Bilirubin 0.4 (0.0-0.4) mg/dL AST 26 (17-59) U/L ALT 13 (7-56) U/L Alkaline Phosphatase 87 (38-126) U/L Total Protein 5.9 (5.8-8.3) g/dL Albumin 3.5 (3.0-4.8) g/dL Globulin 2.4 gm/dL Albumin/Globulin Ratio 1.5 (1.1-1.8) 25-OH Vitamin D Total 35.6 (30.0-100.0) NG/ML Procalcitonin (0.19-0.49) NG/ML PTH Intact Whole Molec (14-64) pg/mL Urine Color (YELLOW) Urine Appearance (CLEAR) Urine pH (4.7-8.0) Ur Specific [place] (1.005-1.035) Urine Protein (<30 mg/dL) mg/dL Urine Glucose (UA) (NEGATIVE) mg/dL Urine Ketones (NEGATIVE) mg/dL Urine Blood (NEGATIVE) Urine Nitrate (NEGATIVE) Urine Bilirubin (NEGATIVE) Urine Urobilinogen (<1 E.U./dL) E.U./dL Ur Leukocyte Esterase (NEGATIVE) Jackie/uL Urine RBC (0-2) /hpf Urine WBC (0-6) /hpf Ur Epithelial Cells (0-5) /hpf Amorphous Sediment Urine Bacteria (NEG) Tacrolimus (LC/MS/MS) (5.0-20.0) mcg/L Hep Bs Antigen (NEGATIVE) Hep Bs Antibody (NEGATIVE) Hep B Core IgM Ab (NEGATIVE) 03/04/18 03/04/18 03/03/18 Range/Units 06:30 02:30 20:13 WBC (4.5-11.0) 10^3/ul RBC (3.5-6.1) 10^6/uL Hgb (14.0-18.0) g/dL Hct (42.0-52.0) % MCV (80.0-105.0) fl MCH (25.0-35.0) pg MCHC (31.0-37.0) g/dl RDW (11.5-14.5) % Plt Count (120.0-450.0) 10^3/uL Gran % (50.0-68.0) % Lymph % (Auto) (22.0-35.0) % [place] % (Auto) (1.0-6.0) % Eos % (Auto) (1.5-5.0) % Baso % (Auto) (0.0-3.0) % Gran # (1.4-6.5) Lymph # (Auto) (1.2-3.4) [place] # (Auto) (0.1-0.6) Eos # (Auto) (0.0-0.7) Baso # (Auto) (0.0-2.0) K/mm3 pCO2 (35-45) mm/Hg pO2 (80-100) mm/Hg HCO3 (21-28) mmol/L ABG pH (7.35-7.45) ABG Total CO2 (22-28) mmol.L ABG O2 Saturation (95-98) % ABG O2 Content (15-23) ML/dl ABG Base Excess (-2.0-3.0) mmol/L ABG Hemoglobin (11.7-17.4) g/dL ABG Carboxyhemoglobin (0.5-1.5) % POC ABG HHb (Measured) (0-5) % ABG Methemoglobin (0.0-3.0) % ABG O2 Capacity (16-24) mL/dl Hgb O2 Saturation (95.0-98.0) % FiO2 % Sodium (132-148) mmol/L Potassium (3.6-5.0) mmol/L Chloride (98-107) mmol/L Carbon Dioxide (21-33) mmol/L Anion Gap (10-20) BUN (7-21) mg/dL Creatinine (0.8-1.5) mg/dl Est GFR ( Amer) Est GFR (Non-Af Amer) POC Glucose (mg/dL) 284 H (65-110) mg/dL Random Glucose (70-110) mg/dL Hemoglobin A1c (4.2-6.5) % Lactic Acid (0.7-2.1) mmol/L Calcium (8.4-10.5) mg/dL Phosphorus (2.5-4.5) mg/dL Magnesium (1.7-2.2) mg/dL Total Bilirubin (0.2-1.3) mg/dL Direct Bilirubin (0.0-0.4) mg/dL AST (17-59) U/L ALT (7-56) U/L Alkaline Phosphatase (38-126) U/L Total Protein (5.8-8.3) g/dL Albumin (3.0-4.8) g/dL Globulin gm/dL Albumin/Globulin Ratio (1.1-1.8) 25-OH Vitamin D Total (30.0-100.0) NG/ML Procalcitonin 150.03 H (0.19-0.49) NG/ML PTH Intact Whole Molec (14-64) pg/mL Urine Color (YELLOW) Urine Appearance (CLEAR) Urine pH (4.7-8.0) Ur Specific [place] (1.005-1.035) Urine Protein (<30 mg/dL) mg/dL Urine Glucose (UA) (NEGATIVE) mg/dL Urine Ketones (NEGATIVE) mg/dL Urine Blood (NEGATIVE) Urine Nitrate (NEGATIVE) Urine Bilirubin (NEGATIVE) Urine Urobilinogen (<1 E.U./dL) E.U./dL Ur Leukocyte Esterase (NEGATIVE) Jackie/uL Urine RBC (0-2) /hpf Urine WBC (0-6) /hpf Ur Epithelial Cells (0-5) /hpf Amorphous Sediment Urine Bacteria (NEG) Tacrolimus (LC/MS/MS) (5.0-20.0) mcg/L Hep Bs Antigen Negative (NEGATIVE) Hep Bs Antibody (NEGATIVE) Hep B Core IgM Ab Negative (NEGATIVE) 03/03/18 03/03/18 Range/Units 10:30 10:30 WBC (4.5-11.0) 10^3/ul RBC (3.5-6.1) 10^6/uL Hgb (14.0-18.0) g/dL Hct (42.0-52.0) % MCV (80.0-105.0) fl MCH (25.0-35.0) pg MCHC (31.0-37.0) g/dl RDW (11.5-14.5) % Plt Count (120.0-450.0) 10^3/uL Gran % (50.0-68.0) % Lymph % (Auto) (22.0-35.0) % [place] % (Auto) (1.0-6.0) % Eos % (Auto) (1.5-5.0) % Baso % (Auto) (0.0-3.0) % Gran # (1.4-6.5) Lymph # (Auto) (1.2-3.4) [place] # (Auto) (0.1-0.6) Eos # (Auto) (0.0-0.7) Baso # (Auto) (0.0-2.0) K/mm3 pCO2 (35-45) mm/Hg pO2 (80-100) mm/Hg HCO3 (21-28) mmol/L ABG pH (7.35-7.45) ABG Total CO2 (22-28) mmol.L ABG O2 Saturation (95-98) % ABG O2 Content (15-23) ML/dl ABG Base Excess (-2.0-3.0) mmol/L ABG Hemoglobin (11.7-17.4) g/dL ABG Carboxyhemoglobin (0.5-1.5) % POC ABG HHb (Measured) (0-5) % ABG Methemoglobin (0.0-3.0) % ABG O2 Capacity (16-24) mL/dl Hgb O2 Saturation (95.0-98.0) % FiO2 % Sodium (132-148) mmol/L Potassium (3.6-5.0) mmol/L Chloride (98-107) mmol/L Carbon Dioxide (21-33) mmol/L Anion Gap (10-20) BUN (7-21) mg/dL Creatinine (0.8-1.5) mg/dl Est GFR ( Amer) Est GFR (Non-Af Amer) POC Glucose (mg/dL) (65-110) mg/dL Random Glucose (70-110) mg/dL Hemoglobin A1c (4.2-6.5) % Lactic Acid (0.7-2.1) mmol/L Calcium (8.4-10.5) mg/dL Phosphorus (2.5-4.5) mg/dL Magnesium (1.7-2.2) mg/dL Total Bilirubin (0.2-1.3) mg/dL Direct Bilirubin (0.0-0.4) mg/dL AST (17-59) U/L ALT (7-56) U/L Alkaline Phosphatase (38-126) U/L Total Protein (5.8-8.3) g/dL Albumin (3.0-4.8) g/dL Globulin gm/dL Albumin/Globulin Ratio (1.1-1.8) 25-OH Vitamin D Total (30.0-100.0) NG/ML Procalcitonin (0.19-0.49) NG/ML PTH Intact Whole Molec 469 H (14-64) pg/mL Urine Color (YELLOW) Urine Appearance (CLEAR) Urine pH (4.7-8.0) Ur Specific [place] (1.005-1.035) Urine Protein (<30 mg/dL) mg/dL Urine Glucose (UA) (NEGATIVE) mg/dL Urine Ketones (NEGATIVE) mg/dL Urine Blood (NEGATIVE) Urine Nitrate (NEGATIVE) Urine Bilirubin (NEGATIVE) Urine Urobilinogen (<1 E.U./dL) E.U./dL Ur Leukocyte Esterase (NEGATIVE) Jackie/uL Urine RBC (0-2) /hpf Urine WBC (0-6) /hpf Ur Epithelial Cells (0-5) /hpf Amorphous Sediment Urine Bacteria (NEG) Tacrolimus (LC/MS/MS) 15.5 (5.0-20.0) mcg/L Hep Bs Antigen (NEGATIVE) Hep Bs Antibody (NEGATIVE) Hep B Core IgM Ab (NEGATIVE) Laboratory Results - last 24 hr 03/03/18 03/03/18 03/03/18 10:30 10:30 20:13 WBC RBC Hgb Hct MCV MCH MCHC RDW Plt Count Gran % Lymph % (Auto) [place] % (Auto) Eos % (Auto) Baso % (Auto) Gran # Lymph # (Auto) [place] # (Auto) Eos # (Auto) Baso # (Auto) pCO2 pO2 HCO3 ABG pH ABG Total CO2 ABG O2 Saturation ABG O2 Content ABG Base Excess ABG Hemoglobin ABG Carboxyhemoglobin POC ABG HHb (Measured) ABG Methemoglobin ABG O2 Capacity Hgb O2 Saturation FiO2 Sodium Potassium Chloride Carbon Dioxide Anion Gap BUN Creatinine Est GFR ( Amer) Est GFR (Non-Af Amer) POC Glucose (mg/dL) Random Glucose Hemoglobin A1c Lactic Acid Calcium Phosphorus Magnesium Total Bilirubin Direct Bilirubin AST ALT Alkaline Phosphatase Total Protein Albumin Globulin Albumin/Globulin Ratio 25-OH Vitamin D Total Procalcitonin 150.03 H PTH Intact Whole Molec 469 H Urine Color Urine Appearance Urine pH Ur Specific [place] Urine Protein Urine Glucose (UA) Urine Ketones Urine Blood Urine Nitrate Urine Bilirubin Urine Urobilinogen Ur Leukocyte Esterase Urine RBC Urine WBC Ur Epithelial Cells Amorphous Sediment Urine Bacteria Tacrolimus (LC/MS/MS) 15.5 Hep Bs Antigen Hep Bs Antibody Hep B Core IgM Ab 03/04/18 03/04/18 03/04/18 02:30 06:30 06:40 WBC RBC Hgb Hct MCV MCH MCHC RDW Plt Count Gran % Lymph % (Auto) [place] % (Auto) Eos % (Auto) Baso % (Auto) Gran # Lymph # (Auto) [place] # (Auto) Eos # (Auto) Baso # (Auto) pCO2 pO2 HCO3 ABG pH ABG Total CO2 ABG O2 Saturation ABG O2 Content ABG Base Excess ABG Hemoglobin ABG Carboxyhemoglobin POC ABG HHb (Measured) ABG Methemoglobin ABG O2 Capacity Hgb O2 Saturation FiO2 Sodium 131 L Potassium 5.3 H Chloride 94 L Carbon Dioxide 11 L Anion Gap 31 H BUN 119 H Creatinine 6.6 H Est GFR ( Amer) 10 Est GFR (Non-Af Amer) 8 POC Glucose (mg/dL) 284 H Random Glucose 288 H Hemoglobin A1c Lactic Acid Calcium 7.5 L Phosphorus 6.9 H Magnesium 2.1 Total Bilirubin 0.4 Direct Bilirubin 0.4 AST 26 ALT 13 Alkaline Phosphatase 87 Total Protein 5.9 Albumin 3.5 Globulin 2.4 Albumin/Globulin Ratio 1.5 25-OH Vitamin D Total Procalcitonin PTH Intact Whole Molec Urine Color Urine Appearance Urine pH Ur Specific [place] Urine Protein Urine Glucose (UA) Urine Ketones Urine Blood Urine Nitrate Urine Bilirubin Urine Urobilinogen Ur Leukocyte Esterase Urine RBC Urine WBC Ur Epithelial Cells Amorphous Sediment Urine Bacteria Tacrolimus (LC/MS/MS) Hep Bs Antigen Negative Hep Bs Antibody Hep B Core IgM Ab Negative 03/04/18 03/04/18 03/04/18 06:40 06:40 08:05 WBC RBC Hgb Hct MCV MCH MCHC RDW Plt Count Gran % Lymph % (Auto) [place] % (Auto) Eos % (Auto) Baso % (Auto) Gran # Lymph # (Auto) [place] # (Auto) Eos # (Auto) Baso # (Auto) pCO2 19 L* pO2 120.0 H HCO3 9.1 L* ABG pH 7.29 L ABG Total CO2 9.7 L ABG O2 Saturation 98.0 ABG O2 Content 10.8 L ABG Base Excess -15.8 L ABG Hemoglobin 7.8 L ABG Carboxyhemoglobin 0.7 POC ABG HHb (Measured) 2.0 ABG Methemoglobin 1.1 ABG O2 Capacity 11.0 L Hgb O2 Saturation 96.1 FiO2 28.0 Sodium Potassium Chloride Carbon Dioxide Anion Gap BUN Creatinine Est GFR ( Amer) Est GFR (Non-Af Amer) POC Glucose (mg/dL) Random Glucose Hemoglobin A1c 10.4 H D Lactic Acid Calcium Phosphorus Magnesium Total Bilirubin Direct Bilirubin AST ALT Alkaline Phosphatase Total Protein Albumin Globulin Albumin/Globulin Ratio 25-OH Vitamin D Total 35.6 Procalcitonin PTH Intact Whole Molec Urine Color Urine Appearance Urine pH Ur Specific [place] Urine Protein Urine Glucose (UA) Urine Ketones Urine Blood Urine Nitrate Urine Bilirubin Urine Urobilinogen Ur Leukocyte Esterase Urine RBC Urine WBC Ur Epithelial Cells Amorphous Sediment Urine Bacteria Tacrolimus (LC/MS/MS) Hep Bs Antigen Hep Bs Antibody Hep B Core IgM Ab 03/04/18 03/04/18 03/04/18 08:05 08:30 10:00 WBC RBC Hgb Hct MCV MCH MCHC RDW Plt Count Gran % Lymph % (Auto) [place] % (Auto) Eos % (Auto) Baso % (Auto) Gran # Lymph # (Auto) [place] # (Auto) Eos # (Auto) Baso # (Auto) pCO2 pO2 HCO3 ABG pH ABG Total CO2 ABG O2 Saturation ABG O2 Content ABG Base Excess ABG Hemoglobin ABG Carboxyhemoglobin POC ABG HHb (Measured) ABG Methemoglobin ABG O2 Capacity Hgb O2 Saturation FiO2 Sodium 132 Potassium 4.2 Chloride 94 L Carbon Dioxide 10 L Anion Gap 32 H BUN 116 H Creatinine 7.1 H Est GFR ( Amer) 9 Est GFR (Non-Af Amer) 8 POC Glucose (mg/dL) 332 H Random Glucose 304 H* Hemoglobin A1c Lactic Acid Calcium 7.5 L Phosphorus 6.9 H Magnesium 2.0 Total Bilirubin Direct Bilirubin AST ALT Alkaline Phosphatase Total Protein Albumin Globulin Albumin/Globulin Ratio 25-OH Vitamin D Total Procalcitonin PTH Intact Whole [place]ole[place] Urine Color Urine Appearance Urine pH Ur Specific [place] Urine Protein Urine Glucose (UA) Urine Ketones Urine Blood Urine Nitrate Urine Bilirubin Urine Urobilinogen Ur Leukocyte Esterase Urine RBC Urine WBC Ur Epithelial Cells Amorphous Sediment Urine Bacteria Tacrolimus (LC/MS/MS) Hep Bs Antigen Hep Bs Antibody Indeterminate Hep B Core IgM Ab 03/04/18 03/04/18 03/04/18 12:32 12:45 17:16 WBC RBC Hgb Hct MCV MCH MCHC RDW Plt Count Gran % Lymph % (Auto) [place] % (Auto) Eos % (Auto) Baso % (Auto) Gran # Lymph # (Auto) [place] # (Auto) Eos # (Auto) Baso # (Auto) pCO2 pO2 HCO3 ABG pH ABG Total CO2 ABG O2 Saturation ABG O2 Content ABG Base Excess ABG Hemoglobin ABG Carboxyhemoglobin POC ABG HHb (Measured) ABG Methemoglobin ABG O2 Capacity Hgb O2 Saturation FiO2 Sodium Potassium Chloride Carbon Dioxide Anion Gap BUN Creatinine Est GFR ( Amer) Est GFR (Non-Af Amer) POC Glucose (mg/dL) 159 H 220 H Random Glucose Hemoglobin A1c Lactic Acid 0.7 Calcium Phosphorus Magnesium Total Bilirubin Direct Bilirubin AST ALT Alkaline Phosphatase Total Protein Albumin Globulin Albumin/Globulin Ratio 25-OH Vitamin D Total Procalcitonin PTH Intact Whole [place] Urine Color Urine Appearance Urine pH Ur Specific [place] Urine Protein Urine Glucose (UA) Urine Ketones Urine Blood Urine Nitrate Urine Bilirubin Urine Urobilinogen Ur Leukocyte Esterase Urine RBC Urine WBC Ur Epithelial Cells Amorphous Sediment Urine Bacteria Tacrolimus (LC/MS/MS) Hep Bs Antigen Hep Bs Antibody Hep B Core IgM Ab 03/04/18 03/04/18 03/05/18 21:33 23:41 05:30 WBC RBC Hgb Hct MCV MCH MCHC RDW Plt Count Gran % Lymph % (Auto) [place] % (Auto) Eos % (Auto) Baso % (Auto) Gran # Lymph # (Auto) [place] # (Auto) Eos # (Auto) Baso # (Auto) pCO2 pO2 HCO3 ABG pH ABG Total CO2 ABG O2 Saturation ABG O2 Content ABG Base Excess ABG Hemoglobin ABG Carboxyhemoglobin POC ABG HHb (Measured) ABG Methemoglobin ABG O2 Capacity Hgb O2 Saturation FiO2 Sodium Potassium Chloride Carbon Dioxide Anion Gap BUN Creatinine Est GFR ( Amer) Est GFR (Non-Af Amer) POC Glucose (mg/dL) 185 H Random Glucose Hemoglobin A1c Lactic Acid Calcium Phosphorus 5.7 H Magnesium Total Bilirubin Direct Bilirubin AST ALT Alkaline Phosphatase Total Protein Albumin Globulin Albumin/Globulin Ratio 25-OH Vitamin D Total Procalcitonin PTH Intact Whole [place]olec Urine Color Yellow Urine Appearance Clear Urine pH 5.5 Ur Specific [place] 1.020 Urine Protein 30 H Urine Glucose (UA) Negative Urine Ketones Negative Urine Blood Negative Urine Nitrate Negative Urine Bilirubin Negative Urine Urobilinogen 0.2 Ur Leukocyte Esterase Negative Urine RBC 0 - 2 Urine WBC 0 - 2 Ur Epithelial Cells 0 - 2 Amorphous Sediment Few Urine Bacteria Small Tacrolimus (LC/MS/MS) Hep Bs Antigen Hep Bs Antibody Hep B Core IgM Ab 03/05/18 03/05/18 05:50 05:50 WBC 5.6 D RBC 2.81 L Hgb 6.4 L* D Hct 19.8 L* MCV 70.5 L MCH 22.8 L MCHC 32.3 RDW 19.6 H Plt Count 219 Gran % 95.2 H Lymph % (Auto) 3.4 L [place] % (Auto) 1.4 Eos % (Auto) 0.0 L Baso % (Auto) 0.0 Gran # 5.33 Lymph # (Auto) 0.2 L [place] # (Auto) 0.1 Eos # (Auto) 0.0 Baso # (Auto) 0.00 pCO2 pO2 HCO3 ABG pH ABG Total CO2 ABG O2 Saturation ABG O2 Content ABG Base Excess ABG Hemoglobin ABG Carboxyhemoglobin POC ABG HHb (Measured) ABG Methemoglobin ABG O2 Capacity Hgb O2 Saturation FiO2 Sodium 136 Potassium 4.5 Chloride 96 L Carbon Dioxide 13 L Anion Gap 31 H BUN 87 H Creatinine 5.2 H Est GFR ( Amer) 14 Est GFR (Non-Af Amer) 11 POC Glucose (mg/dL) Random Glucose 277 H Hemoglobin A1c Lactic Acid Calcium 7.8 L Phosphorus Magnesium 2.1 Total Bilirubin 0.3 Direct Bilirubin 0.3 AST 24 ALT 22 Alkaline Phosphatase 74 Total Protein 5.4 L Albumin 3.3 Globulin 2.1 Albumin/Globulin Ratio 1.6 25-OH Vitamin D Total Procalcitonin PTH Intact Whole [place] Urine Color Urine Appearance Urine pH Ur Specific [place] Urine Protein Urine Glucose (UA) Urine Ketones Urine Blood Urine Nitrate Urine Bilirubin Urine Urobilinogen Ur Leukocyte Esterase Urine RBC Urine WBC Ur Epithelial Cells Amorphous Sediment Urine Bacteria Tacrolimus (LC/MS/MS) Hep Bs Antigen Hep Bs Antibody Hep B Core IgM Ab EKG/Cardiology Studies: Cardiology / EKG Studies 03/04/18 08:00 EKG [ELECTROCARDIOGRAM] Routine Comment: Reason For Exam: hyperK; r/o dysarythmia Fingerstick Blood Sugar Results: 185 Review of Systems - Constitutional Constitutional: absent: Fever, Chills - EENT Eyes: absent: Change in Vision, Diplopia Nose/Mouth/Throat: absent: Epistaxis, Sore Throat - Cardiovascular Cardiovascular: Dyspnea on Exertion, Orthopnea, Paroxysmal Nocturnal Dyspnea. absent: Chest Pain, Chest Pain at Rest, Palpitations - Respiratory Respiratory: Dyspnea on Exertion. absent: Cough, Dyspnea - Gastrointestinal Gastrointestinal: Constipation. absent: Abdominal Pain, Diarrhea, Nausea, Vomiting - Genitourinary Genitourinary: absent: Change in Urinary Stream, Difficulty Urinating, Dysuria, Hematuria - Musculoskeletal Musculoskeletal: Myalgias. absent: Back Pain, Tingling - Integumentary Integumentary: absent: Rash - Neurological Neurological: absent: Confusion, Dizziness, Numbness, Headaches, Loss of Vision, Tingling Critical Care Progress Note - Ventilator Checklist Head of Bed 30 Degrees: Yes - Extremities/Vascular Does the Patient have a Central Venous Catheter?: No Does the Patient have a Aquino Catheter?: No - Nutrition Nutrition: Nutrition Category Date Time Status Diabetic [Consistent Carbohydrate] [DIET] Diets 03/03/18 Dinner Ordered Assessment/Plan - Assessment and Plan (Free Text) Assessment: 67 year old male with past medical history of aortic valve replacement, anemia, renal transplant in 2006, hyperlipidemia, hypertension, insulin dependent diabetes, secondary hyperparathyroidism, polycystic kidney disease, chronic kidney disease, pulmonary hypertension, diastolic congestive heart failure with last EF of 62.9%, cachexia, and aortic dissection is a poor historian and presents with weakness and shortness of the breath for 3 weeks. Plan: Neuro: -AAOx3, no FND, moving extremities past midline. -Monitor neuro status. -Reorient patient as necessary. Cardio: -RRR, hypotensive, systolic ejection murmur, tachypneic, firm and distended abdomen, +3 pitting edema in bilateral lower extremities -Patient's hypotension likely due to hypovolemia but cannot rule out cardiogenic or septic causes. -MAP: 87 -CXR from 03/03: shows bilateral pleural effusion more on the left than on the right -Midodrine 5 mg TID -500 cc NS given yesterday, NS with bicarbonate given at 75 cc/hr. -Continue doxycycline and merrem. -Patient has stable infrarenal AAA at 8 cm and history of aortic dissection. Dr. Murray and I had a discussion with Dr. Carlos Fulton regarding this case, who recommended that patient be evaluated outpatient by Dr. Dewitt. vascular surgery, who was supposed to perform intervention for the infrarenal AAA but patient had electrolyte abnormalities and intervention was held off. Dr. Dewitt will be contacted to arrange for AAA follow up. -Due to patient's distended abdomen and bilateral lower extremity [place] [address], will also consider echocardiogram. -Maintain MAP>65. -Monitor for S/S, HD compromise. Pulm: -Patient tachypneic and in mild respiratory distress. CTA B/L -Patient is stating well on 2L NC. -ABG from 03/04: pH: 7.29, pCO2: 19, pO2: 120, lactate: 1.3. -Tachypneia likely due to compensation for metabolic acidosis from severe uremia. -Xopenex treatments given Q6 as needed -Repeat CXR for reevaluation of bilateral lower lobe infiltrates -Maintain O2 saturation>95%. GI: -Tolerating diabetic diet. -Protonix 40 mg daily -GI recommends no endoscopy during this visit due to risk from 8 cm AAA. Results from 2017 EGD procedure shows hiatal hernia, nonbleeding erythematous mucosa. No ulcers. -GI, Dr. Cordova was consulted for possible GI bleed. /Nephro: -MYRNA on CKD stage 4. -Patient received hemodialysis yesterday and will receive hemodialysis today. HD session used low blood flow to prevent dialysis disequilibrium, high bicarb diasylate, and keeping a positive net fluid balance. -BUN/Cr: 87/5.2 Creatinine improved from 6.6 yesterday following dialysis. BUN improved from 119 yesterday following dialysis. -UA: negative leukocyte esterase and nitrates. 0-2 RBC, 0-2 WBC, small bacteria -As per nephrology, patient for dialysis today again. -Na: 136 from 131. Patient received 500 cc bolus of NS. Patient is receiving NS with bicarbonate at 75 cc/hr. Recheck after dialysis. -K: 4.5. Hyperkalemia resolved. Patient had no EKG changes yesterday. Continue to monitor. -HCO3: 13 from 11 yesterday. Uremia is worsening due to CKD. Patient is receiving NS with bicarbonate at 75 cc/hr. Recheck after dialysis. -Calcium improving with calcitriol, calcium acetate, and calcium carbonate to 7.8 from 7.5 yesterday. Recheck after dialysis. -Phosphate unchecked today. Recheck after dialysis. Consider restarting cinacalet after dialysis. -PTH elevated at 469 likely 2/2 to chronic kidney disease. Continue to monitor. -Continue doxycycline and merrem. -Patient currently on immunosuppresion with tacrolimus, hydrocortisone for renal transplant. Cellcept held. -Maintain euvolemia. Making good urine output (800 mL). -Strict I and Os. Check daily weights -Dr. Wheeler, nephrology consulted for further recommendations. Endocrinology: -Random glucose at 277. Glucose elevated likely due to hydrocortisone. Hydrocortisone will start to be tapered. -HgbA1c: 10.4 -Continue patient on high dose sliding scale insulin. -Maintain euglycemia. Heme/Onc: -Anemic: 6.4 from 8.7 with MCV of 70.5 -FOBT -Continue ferrous gluconate 324 mg BID. -Anemia likely due to chronic kidney disease. Nephrology recommends erythropoietin to be started. -Patient will be transfused 1 U of PRBCs during dialysis today. Consent received and signed. Patient's last transfusion was 02/20/18. -Continue monitoring H/H -GI was consulted who wanted endoscopy results from 02/2017. Results showed hiatal hernia, nonbleeding erythematous mucosa. No ulcers. ID: -Afebrile, leukopenia resolved -Lactate: 1.3 yesterday from 2.3 -BCx: no growth in 24 hours -UCx -Sputum culture -Procalcitonin -Continue with doxycycline and merrem as emperic therapy. -Monitor for signs and symptoms of infection. -ID consulted for recommendations. Follow recommendations. DVT ppx: SCD GI ppx: protonix Patient seen and examined with Dr. Flores. - Date & Time Date: 03/05/18 Time: 07:55 <Marin Flores - Last Filed: 03/05/18 11:50> CCU Objective - Vital Signs / Intake & Output Intake and Output (Last 8hrs): Intake & Output 03/04/18 03/05/18 03/05/18 22:59 06:59 14:59 Intake Total 400 Output Total 300 500 Balance -300 -100 Intake: IV 250 Right Upper arm 250 Oral 150 Output: Urine 300 500 Urine, Voided 300 500 Other 0 Other: # Voids Urine, Voided 1 3 - Medications Active Medications: Active Medications Generic Name Dose Route Start Last Admin Trade Name Freq PRN Reason Stop Dose Admin Acetaminophen 650 mg 03/03/18 19:21 Tylenol 325mg Tab PO Q6 PRN TEMP>=99.5F Acetaminophen 650 mg 03/03/18 19:21 Tylenol 650 Mg Supp RC Q6H PRN TEMP>=99.5F Acetaminophen 650 mg 03/03/18 19:28 Tylenol 650 Mg Supp RC Q6H PRN Headache Acetaminophen 650 mg 03/03/18 19:29 Tylenol 325mg Tab PO Q6H PRN Headache Atorvastatin Calcium 20 mg 03/03/18 17:00 03/04/18 18:30 Lipitor PO 20 mg DIN [place] Administration Benzonatate 200 mg 03/04/18 10:00 03/05/18 10:43 Tessalon Perles PO 200 mg TID [place] Administration Calcitriol 0.5 mcg 03/03/18 15:30 03/05/18 10:44 Rocaltrol PO 0.5 mcg DAILY [place] Administration Calcium Acetate 667 mg 03/04/18 12:00 03/05/18 08:55 Phoslo PO 667 mg WM [place] Administration Calcium Carbonate 500 mg 03/04/18 18:00 03/05/18 10:51 Oscal PO 500 mg BID [place] Administration Cinacalcet 30 mg 03/04/18 10:00 Sensipar PO DAILY [place] Docusate Sodium 100 mg 03/04/18 10:00 03/05/18 10:40 Colace PO 100 mg TID [place] Administration Ezetimibe 10 mg 03/04/18 10:00 03/05/18 10:41 Zetia PO 10 mg DAILY [place] Administration Ferrous Gluconate 324 mg 03/03/18 18:00 03/05/18 10:40 Fergon PO 324 mg BID [place] Administration Hydrocortisone Sodium Succinate 50 mg 03/03/18 18:15 03/05/18 05:14 Solu-Cortef IVP 50 mg Q6H [place] Administration Doxycycline Hyclate 100 mg/ 100 mls @ 100 mls/hr 03/03/18 22:00 03/05/18 10:42 Sodium Chloride IVPB 100 mls/hr Q12 [place] Administration Protocol Meropenem 500 mg/ Sodium 50 mls @ 100 mls/hr 03/03/18 22:45 03/04/18 22:00 Chloride IVPB 03/10/18 22:46 100 mls/hr Q24H [place] Administration Protocol Sodium Bicarbonate 75 meq/ 1,075 mls @ 75 mls/hr 03/05/18 10:00 Sodium Chloride IV .[id number] [place] Insulin Human Lispro 0 units 03/04/18 11:30 03/05/18 08:55 Humalog High SC 7 u ACHS [place] Administration Protocol Levalbuterol HCl 0.63 mg 03/03/18 20:00 03/05/18 07:00 Xopenex IH 0.63 mg [id number] [place] Administration Midodrine 5 mg 03/03/18 23:45 03/05/18 10:52 Proamatine PO 5 mg TID [place] Administration Ondansetron HCl 4 mg 03/03/18 19:21 Zofran Inj IVP Q4H PRN Nausea/Vomiting Pantoprazole Sodium 40 mg 03/04/18 06:00 03/05/18 05:14 Protonix Ec Tab PO 40 mg 0600 [place] Administration Polyethylene Glycol 17 gm 03/04/18 10:00 03/05/18 10:50 Miralax PO 17 gm BID [place] Administration Tacrolimus 1 mg 03/03/18 18:00 03/04/18 18:33 Prograf Cap PO 1 mg QPM [place] Administration Tacrolimus 2 mg 03/04/18 10:00 03/05/18 10:46 Prograf Cap PO 2 mg QAM [place] Administration - Patient Studies Lab Studies: Microbiology Studies 03/03/18 20:18 Blood Culture - Preliminary Blood NO GROWTH AFTER 24 HOURS 03/03/18 20:18 Blood Culture - Preliminary Blood NO GROWTH AFTER 24 HOURS 03/03/18 15:25 Blood Culture - Preliminary Blood-Venous NO GROWTH AFTER 24 HOURS 03/03/18 14:27 Blood Culture - Preliminary Blood-Venous NO GROWTH AFTER 24 HOURS Lab Studies 09/03/05/18 03/05/18 Range/Units 11:00 07:35 07:30 WBC 6.1 (4.5-11.0) 10^3/ul RBC 3.06 L (3.5-6.1) 10^6/uL Hgb 7.0 L (14.0-18.0) g/dL Hct 21.6 L (42.0-52.0) % MCV 70.6 L (80.0-105.0) fl MCH 22.9 L (25.0-35.0) pg MCHC 32.4 (31.0-37.0) g/dl RDW 19.7 H (11.5-14.5) % Plt Count 202 (120.0-450.0) 10^3/uL Gran % (50.0-68.0) % Lymph % (Auto) (22.0-35.0) % [place] % (Auto) (1.0-6.0) % Eos % (Auto) (1.5-5.0) % Baso % (Auto) (0.0-3.0) % Gran # (1.4-6.5) Lymph # (Auto) (1.2-3.4) [place] # (Auto) (0.1-0.6) Eos # (Auto) (0.0-0.7) Baso # (Auto) (0.0-2.0) K/mm3 Sodium (132-148) mmol/L Potassium (3.6-5.0) mmol/L Chloride (98-107) mmol/L Carbon Dioxide (21-33) mmol/L Anion Gap (10-20) BUN (7-21) mg/dL Creatinine (0.8-1.5) mg/dl Est GFR ( Amer) Est GFR (Non-Af Amer) POC Glucose (mg/dL) (65-110) mg/dL Random Glucose (70-110) mg/dL Hemoglobin A1c (4.2-6.5) % Serum Osmolality 327 H (272-300) mosm/kg Lactic Acid 0.9 (0.7-2.1) mmol/L Calcium (8.4-10.5) mg/dL Phosphorus (2.5-4.5) mg/dL Magnesium (1.7-2.2) mg/dL Total Bilirubin (0.2-1.3) mg/dL Direct Bilirubin (0.0-0.4) mg/dL AST (17-59) U/L ALT (7-56) U/L Alkaline Phosphatase (38-126) U/L NT-Pro-B Natriuret Pep (0-450) pg/mL Total Protein (5.8-8.3) g/dL Albumin (3.0-4.8) g/dL Globulin gm/dL Albumin/Globulin Ratio (1.1-1.8) 25-OH Vitamin D Total (30.0-100.0) NG/ML Procalcitonin (0.19-0.49) NG/ML PTH Intact Whole Molec (14-64) pg/mL Urine Color (YELLOW) Urine Appearance (CLEAR) Urine pH (4.7-8.0) Ur Specific [place] (1.005-1.035) Urine Protein (<30 mg/dL) mg/dL Urine Glucose (UA) (NEGATIVE) mg/dL Urine Ketones (NEGATIVE) mg/dL Urine Blood (NEGATIVE) Urine Nitrate (NEGATIVE) Urine Bilirubin (NEGATIVE) Urine Urobilinogen (<1 E.U./dL) E.U./dL Ur Leukocyte Esterase (NEGATIVE) Jackie/uL Urine RBC (0-2) /hpf Urine WBC (0-6) /hpf Ur Epithelial Cells (0-5) /hpf Amorphous Sediment Urine Bacteria (NEG) Random Vancomycin (20-40) ug/mL Tacrolimus (LC/MS/MS) (5.0-20.0) mcg/L Hep Bs Antigen (NEGATIVE) Hep Bs Antibody (NEGATIVE) Hep B Core IgM Ab (NEGATIVE) Blood Type Antibody Screen Crossmatch BBK History Checked 03/05/18 03/05/18 03/05/18 Range/Units 07:30 05:50 05:50 WBC 5.6 D (4.5-11.0) 10^3/ul RBC 2.81 L (3.5-6.1) 10^6/uL Hgb 6.4 L* D (14.0-18.0) g/dL Hct 19.8 L* (42.0-52.0) % MCV 70.5 L (80.0-105.0) fl MCH 22.8 L (25.0-35.0) pg MCHC 32.3 (31.0-37.0) g/dl RDW 19.6 H (11.5-14.5) % Plt Count 219 (120.0-450.0) 10^3/uL Gran % 95.2 H (50.0-68.0) % Lymph % (Auto) 3.4 L (22.0-35.0) % [place] % (Auto) 1.4 (1.0-6.0) % Eos % (Auto) 0.0 L (1.5-5.0) % Baso % (Auto) 0.0 (0.0-3.0) % Gran # 5.33 (1.4-6.5) Lymph # (Auto) 0.2 L (1.2-3.4) [place] # (Auto) 0.1 (0.1-0.6) Eos # (Auto) 0.0 (0.0-0.7) Baso # (Auto) 0.00 (0.0-2.0) K/mm3 Sodium 136 (132-148) mmol/L Potassium 4.5 (3.6-5.0) mmol/L Chloride 96 L (98-107) mmol/L Carbon Dioxide 13 L (21-33) mmol/L Anion Gap 31 H (10-20) BUN 87 H (7-21) mg/dL Creatinine 5.2 H (0.8-1.5) mg/dl Est GFR ( Amer) 14 Est GFR (Non-Af Amer) 11 POC Glucose (mg/dL) (65-110) mg/dL Random Glucose 277 H (70-110) mg/dL Hemoglobin A1c (4.2-6.5) % Serum Osmolality (272-300) mosm/kg Lactic Acid (0.7-2.1) mmol/L Calcium 7.8 L (8.4-10.5) mg/dL Phosphorus (2.5-4.5) mg/dL Magnesium 2.1 (1.7-2.2) mg/dL Total Bilirubin 0.3 (0.2-1.3) mg/dL Direct Bilirubin 0.3 (0.0-0.4) mg/dL AST 24 (17-59) U/L ALT 22 (7-56) U/L Alkaline Phosphatase 74 (38-126) U/L NT-Pro-B Natriuret Pep (0-450) pg/mL Total Protein 5.4 L (5.8-8.3) g/dL Albumin 3.3 (3.0-4.8) g/dL Globulin 2.1 gm/dL Albumin/Globulin Ratio 1.6 (1.1-1.8) 25-OH Vitamin D Total (30.0-100.0) NG/ML Procalcitonin (0.19-0.49) NG/ML PTH Intact Whole Molec (14-64) pg/mL Urine Color (YELLOW) Urine Appearance (CLEAR) Urine pH (4.7-8.0) Ur Specific [place] (1.005-1.035) Urine Protein (<30 mg/dL) mg/dL Urine Glucose (UA) (NEGATIVE) mg/dL Urine Ketones (NEGATIVE) mg/dL Urine Blood (NEGATIVE) Urine Nitrate (NEGATIVE) Urine Bilirubin (NEGATIVE) Urine Urobilinogen (<1 E.U./dL) E.U./dL Ur Leukocyte Esterase (NEGATIVE) Jackie/uL Urine RBC (0-2) /hpf Urine WBC (0-6) /hpf Ur Epithelial Cells (0-5) /hpf Amorphous Sediment Urine Bacteria (NEG) Random Vancomycin 11.2 L (20-40) ug/mL Tacrolimus (LC/MS/MS) (5.0-20.0) mcg/L Hep Bs Antigen (NEGATIVE) Hep Bs Antibody (NEGATIVE) Hep B Core IgM Ab (NEGATIVE) Blood Type Antibody Screen Crossmatch BBK History Checked 03/05/18 03/05/18 03/04/18 Range/Units 05:30 05:30 23:41 WBC (4.5-11.0) 10^3/ul RBC (3.5-6.1) 10^6/uL Hgb (14.0-18.0) g/dL Hct (42.0-52.0) % MCV (80.0-105.0) fl MCH (25.0-35.0) pg MCHC (31.0-37.0) g/dl RDW (11.5-14.5) % Plt Count (120.0-450.0) 10^3/uL Gran % (50.0-68.0) % Lymph % (Auto) (22.0-35.0) % [place] % (Auto) (1.0-6.0) % Eos % (Auto) (1.5-5.0) % Baso % (Auto) (0.0-3.0) % Gran # (1.4-6.5) Lymph # (Auto) (1.2-3.4) [place] # (Auto) (0.1-0.6) Eos # (Auto) (0.0-0.7) Baso # (Auto) (0.0-2.0) K/mm3 Sodium (132-148) mmol/L Potassium (3.6-5.0) mmol/L Chloride (98-107) mmol/L Carbon Dioxide (21-33) mmol/L Anion Gap (10-20) BUN (7-21) mg/dL Creatinine (0.8-1.5) mg/dl Est GFR ( Amer) Est GFR (Non-Af Amer) POC Glucose (mg/dL) (65-110) mg/dL Random Glucose (70-110) mg/dL Hemoglobin A1c (4.2-6.5) % Serum Osmolality (272-300) mosm/kg Lactic Acid (0.7-2.1) mmol/L Calcium (8.4-10.5) mg/dL Phosphorus 5.7 H (2.5-4.5) mg/dL Magnesium (1.7-2.2) mg/dL Total Bilirubin (0.2-1.3) mg/dL Direct Bilirubin (0.0-0.4) mg/dL AST (17-59) U/L ALT (7-56) U/L Alkaline Phosphatase (38-126) U/L NT-Pro-B Natriuret Pep 59325 H (0-450) pg/mL Total Protein (5.8-8.3) g/dL Albumin (3.0-4.8) g/dL Globulin gm/dL Albumin/Globulin Ratio (1.1-1.8) 25-OH Vitamin D Total (30.0-100.0) NG/ML Procalcitonin (0.19-0.49) NG/ML PTH Intact Whole Molec (14-64) pg/mL Urine Color Yellow (YELLOW) Urine Appearance Clear (CLEAR) Urine pH 5.5 (4.7-8.0) Ur Specific [place] 1.020 (1.005-1.035) Urine Protein 30 H (<30 mg/dL) mg/dL Urine Glucose (UA) Negative (NEGATIVE) mg/dL Urine Ketones Negative (NEGATIVE) mg/dL Urine Blood Negative (NEGATIVE) Urine Nitrate Negative (NEGATIVE) Urine Bilirubin Negative (NEGATIVE) Urine Urobilinogen 0.2 (<1 E.U./dL) E.U./dL Ur Leukocyte Esterase Negative (NEGATIVE) Jackie/uL Urine RBC 0 - 2 (0-2) /hpf Urine WBC 0 - 2 (0-6) /hpf Ur Epithelial Cells 0 - 2 (0-5) /hpf Amorphous Sediment Few Urine Bacteria Small (NEG) Random Vancomycin (20-40) ug/mL Tacrolimus (LC/MS/MS) (5.0-20.0) mcg/L Hep Bs Antigen (NEGATIVE) Hep Bs Antibody (NEGATIVE) Hep B Core IgM Ab (NEGATIVE) Blood Type Antibody Screen Crossmatch BBK History Checked 03/04/18 03/04/18 03/04/18 Range/Units 21:33 17:16 12:45 WBC (4.5-11.0) 10^3/ul RBC (3.5-6.1) 10^6/uL Hgb (14.0-18.0) g/dL Hct (42.0-52.0) % MCV (80.0-105.0) fl MCH (25.0-35.0) pg MCHC (31.0-37.0) g/dl RDW (11.5-14.5) % Plt Count (120.0-450.0) 10^3/uL Gran % (50.0-68.0) % Lymph % (Auto) (22.0-35.0) % [place] % (Auto) (1.0-6.0) % Eos % (Auto) (1.5-5.0) % Baso % (Auto) (0.0-3.0) % Gran # (1.4-6.5) Lymph # (Auto) (1.2-3.4) [place] # (Auto) (0.1-0.6) Eos # (Auto) (0.0-0.7) Baso # (Auto) (0.0-2.0) K/mm3 Sodium (132-148) mmol/L Potassium (3.6-5.0) mmol/L Chloride (98-107) mmol/L Carbon Dioxide (21-33) mmol/L Anion Gap (10-20) BUN (7-21) mg/dL Creatinine (0.8-1.5) mg/dl Est GFR ( Amer) Est GFR (Non-Af Amer) POC Glucose (mg/dL) 185 H 220 H (65-110) mg/dL Random Glucose (70-110) mg/dL Hemoglobin A1c (4.2-6.5) % Serum Osmolality (272-300) mosm/kg Lactic Acid 0.7 (0.7-2.1) mmol/L Calcium (8.4-10.5) mg/dL Phosphorus (2.5-4.5) mg/dL Magnesium (1.7-2.2) mg/dL Total Bilirubin (0.2-1.3) mg/dL Direct Bilirubin (0.0-0.4) mg/dL AST (17-59) U/L ALT (7-56) U/L Alkaline Phosphatase (38-126) U/L NT-Pro-B Natriuret Pep (0-450) pg/mL Total Protein (5.8-8.3) g/dL Albumin (3.0-4.8) g/dL Globulin gm/dL Albumin/Globulin Ratio (1.1-1.8) 25-OH Vitamin D Total (30.0-100.0) NG/ML Procalcitonin (0.19-0.49) NG/ML PTH Intact Whole [place] (14-64) pg/mL Urine Color (YELLOW) Urine Appearance (CLEAR) Urine pH (4.7-8.0) Ur Specific [place] (1.005-1.035) Urine Protein (<30 mg/dL) mg/dL Urine Glucose (UA) (NEGATIVE) mg/dL Urine Ketones (NEGATIVE) mg/dL Urine Blood (NEGATIVE) Urine Nitrate (NEGATIVE) Urine Bilirubin (NEGATIVE) Urine Urobilinogen (<1 E.U./dL) E.U./dL Ur Leukocyte Esterase (NEGATIVE) Jackie/uL Urine RBC (0-2) /hpf Urine WBC (0-6) /hpf Ur Epithelial Cells (0-5) /hpf Amorphous Sediment Urine Bacteria (NEG) Random Vancomycin (20-40) ug/mL Tacrolimus (LC/MS/MS) (5.0-20.0) mcg/L Hep Bs Antigen (NEGATIVE) Hep Bs Antibody (NEGATIVE) Hep B Core IgM Ab (NEGATIVE) Blood Type Antibody Screen Crossmatch BBK History Checked 03/04/18 03/04/18 03/04/18 Range/Units 12:32 08:30 06:40 WBC (4.5-11.0) 10^3/ul RBC (3.5-6.1) 10^6/uL Hgb (14.0-18.0) g/dL Hct (42.0-52.0) % MCV (80.0-105.0) fl MCH (25.0-35.0) pg MCHC (31.0-37.0) g/dl RDW (11.5-14.5) % Plt Count (120.0-450.0) 10^3/uL Gran % (50.0-68.0) % Lymph % (Auto) (22.0-35.0) % [place] % (Auto) (1.0-6.0) % Eos % (Auto) (1.5-5.0) % Baso % (Auto) (0.0-3.0) % Gran # (1.4-6.5) Lymph # (Auto) (1.2-3.4) [place] # (Auto) (0.1-0.6) Eos # (Auto) (0.0-0.7) Baso # (Auto) (0.0-2.0) K/mm3 Sodium (132-148) mmol/L Potassium (3.6-5.0) mmol/L Chloride (98-107) mmol/L Carbon Dioxide (21-33) mmol/L Anion Gap (10-20) BUN (7-21) mg/dL Creatinine (0.8-1.5) mg/dl Est GFR ( Amer) Est GFR (Non-Af Amer) POC Glucose (mg/dL) 159 H (65-110) mg/dL Random Glucose (70-110) mg/dL Hemoglobin A1c (4.2-6.5) % Serum Osmolality (272-300) mosm/kg Lactic Acid (0.7-2.1) mmol/L Calcium (8.4-10.5) mg/dL Phosphorus (2.5-4.5) mg/dL Magnesium (1.7-2.2) mg/dL Total Bilirubin (0.2-1.3) mg/dL Direct Bilirubin (0.0-0.4) mg/dL AST (17-59) U/L ALT (7-56) U/L Alkaline Phosphatase (38-126) U/L NT-Pro-B Natriuret Pep (0-450) pg/mL Total Protein (5.8-8.3) g/dL Albumin (3.0-4.8) g/dL Globulin gm/dL Albumin/Globulin Ratio (1.1-1.8) 25-OH Vitamin D Total 35.6 (30.0-100.0) NG/ML Procalcitonin (0.19-0.49) NG/ML PTH Intact Whole Molec (14-64) pg/mL Urine Color (YELLOW) Urine Appearance (CLEAR) Urine pH (4.7-8.0) Ur Specific [place] (1.005-1.035) Urine Protein (<30 mg/dL) mg/dL Urine Glucose (UA) (NEGATIVE) mg/dL Urine Ketones (NEGATIVE) mg/dL Urine Blood (NEGATIVE) Urine Nitrate (NEGATIVE) Urine Bilirubin (NEGATIVE) Urine Urobilinogen (<1 E.U./dL) E.U./dL Ur Leukocyte Esterase (NEGATIVE) Jackie/uL Urine RBC (0-2) /hpf Urine WBC (0-6) /hpf Ur Epithelial Cells (0-5) /hpf Amorphous Sediment Urine Bacteria (NEG) Random Vancomycin (20-40) ug/mL Tacrolimus (LC/MS/MS) (5.0-20.0) mcg/L Hep Bs Antigen (NEGATIVE) Hep Bs Antibody Indeterminate (NEGATIVE) Hep B Core IgM Ab (NEGATIVE) Blood Type Antibody Screen Crossmatch BBK History Checked 03/04/18 03/04/18 03/03/18 Range/Units 06:40 06:30 20:13 WBC (4.5-11.0) 10^3/ul RBC (3.5-6.1) 10^6/uL Hgb (14.0-18.0) g/dL Hct (42.0-52.0) % MCV (80.0-105.0) fl MCH (25.0-35.0) pg MCHC (31.0-37.0) g/dl RDW (11.5-14.5) % Plt Count (120.0-450.0) 10^3/uL Gran % (50.0-68.0) % Lymph % (Auto) (22.0-35.0) % [place] % (Auto) (1.0-6.0) % Eos % (Auto) (1.5-5.0) % Baso % (Auto) (0.0-3.0) % Gran # (1.4-6.5) Lymph # (Auto) (1.2-3.4) [place] # (Auto) (0.1-0.6) Eos # (Auto) (0.0-0.7) Baso # (Auto) (0.0-2.0) K/mm3 Sodium (132-148) mmol/L Potassium (3.6-5.0) mmol/L Chloride (98-107) mmol/L Carbon Dioxide (21-33) mmol/L Anion Gap (10-20) BUN (7-21) mg/dL Creatinine (0.8-1.5) mg/dl Est GFR ( Amer) Est GFR (Non-Af Amer) POC Glucose (mg/dL) (65-110) mg/dL Random Glucose (70-110) mg/dL Hemoglobin A1c 10.4 H D (4.2-6.5) % Serum Osmolality (272-300) mosm/kg Lactic Acid (0.7-2.1) mmol/L Calcium (8.4-10.5) mg/dL Phosphorus (2.5-4.5) mg/dL Magnesium (1.7-2.2) mg/dL Total Bilirubin (0.2-1.3) mg/dL Direct Bilirubin (0.0-0.4) mg/dL AST (17-59) U/L ALT (7-56) U/L Alkaline Phosphatase (38-126) U/L NT-Pro-B Natriuret Pep (0-450) pg/mL Total Protein (5.8-8.3) g/dL Albumin (3.0-4.8) g/dL Globulin gm/dL Albumin/Globulin Ratio (1.1-1.8) 25-OH Vitamin D Total (30.0-100.0) NG/ML Procalcitonin 150.03 H (0.19-0.49) NG/ML PTH Intact Whole Molec (14-64) pg/mL Urine Color (YELLOW) Urine Appearance (CLEAR) Urine pH (4.7-8.0) Ur Specific [place] (1.005-1.035) Urine Protein (<30 mg/dL) mg/dL Urine Glucose (UA) (NEGATIVE) mg/dL Urine Ketones (NEGATIVE) mg/dL Urine Blood (NEGATIVE) Urine Nitrate (NEGATIVE) Urine Bilirubin (NEGATIVE) Urine Urobilinogen (<1 E.U./dL) E.U./dL Ur Leukocyte Esterase (NEGATIVE) Jackie/uL Urine RBC (0-2) /hpf Urine WBC (0-6) /hpf Ur Epithelial Cells (0-5) /hpf Amorphous Sediment Urine Bacteria (NEG) Random Vancomycin (20-40) ug/mL Tacrolimus (LC/MS/MS) (5.0-20.0) mcg/L Hep Bs Antigen Negative (NEGATIVE) Hep Bs Antibody (NEGATIVE) Hep B Core IgM Ab Negative (NEGATIVE) Blood Type Antibody Screen Crossmatch BBK History Checked 03/03/18 03/03/18 03/03/18 Range/Units 11:00 10:30 10:30 WBC (4.5-11.0) 10^3/ul RBC (3.5-6.1) 10^6/uL Hgb (14.0-18.0) g/dL Hct (42.0-52.0) % MCV (80.0-105.0) fl MCH (25.0-35.0) pg MCHC (31.0-37.0) g/dl RDW (11.5-14.5) % Plt Count (120.0-450.0) 10^3/uL Gran % (50.0-68.0) % Lymph % (Auto) (22.0-35.0) % [place] % (Auto) (1.0-6.0) % Eos % (Auto) (1.5-5.0) % Baso % (Auto) (0.0-3.0) % Gran # (1.4-6.5) Lymph # (Auto) (1.2-3.4) [place] # (Auto) (0.1-0.6) Eos # (Auto) (0.0-0.7) Baso # (Auto) (0.0-2.0) K/mm3 Sodium (132-148) mmol/L Potassium (3.6-5.0) mmol/L Chloride (98-107) mmol/L Carbon Dioxide (21-33) mmol/L Anion Gap (10-20) BUN (7-21) mg/dL Creatinine (0.8-1.5) mg/dl Est GFR ( Amer) Est GFR (Non-Af Amer) POC Glucose (mg/dL) (65-110) mg/dL Random Glucose (70-110) mg/dL Hemoglobin A1c (4.2-6.5) % Serum Osmolality (272-300) mosm/kg Lactic Acid (0.7-2.1) mmol/L Calcium (8.4-10.5) mg/dL Phosphorus (2.5-4.5) mg/dL Magnesium (1.7-2.2) mg/dL Total Bilirubin (0.2-1.3) mg/dL Direct Bilirubin (0.0-0.4) mg/dL AST (17-59) U/L ALT (7-56) U/L Alkaline Phosphatase (38-126) U/L NT-Pro-B Natriuret Pep (0-450) pg/mL Total Protein (5.8-8.3) g/dL Albumin (3.0-4.8) g/dL Globulin gm/dL Albumin/Globulin Ratio (1.1-1.8) 25-OH Vitamin D Total (30.0-100.0) NG/ML Procalcitonin (0.19-0.49) NG/ML PTH Intact Whole Molec 469 H (14-64) pg/mL Urine Color (YELLOW) Urine Appearance (CLEAR) Urine pH (4.7-8.0) Ur Specific [place] (1.005-1.035) Urine Protein (<30 mg/dL) mg/dL Urine Glucose (UA) (NEGATIVE) mg/dL Urine Ketones (NEGATIVE) mg/dL Urine Blood (NEGATIVE) Urine Nitrate (NEGATIVE) Urine Bilirubin (NEGATIVE) Urine Urobilinogen (<1 E.U./dL) E.U./dL Ur Leukocyte Esterase (NEGATIVE) Jackie/uL Urine RBC (0-2) /hpf Urine WBC (0-6) /hpf Ur Epithelial Cells (0-5) /hpf Amorphous Sediment Urine Bacteria (NEG) Random Vancomycin (20-40) ug/mL Tacrolimus (LC/MS/MS) 15.5 (5.0-20.0) mcg/L Hep Bs Antigen (NEGATIVE) Hep Bs Antibody (NEGATIVE) Hep B Core IgM Ab (NEGATIVE) Blood Type O POSITIVE Antibody Screen Negative Crossmatch See Detail BBK History Checked Patient has bt Laboratory Results - last 24 hr 03/03/18 03/03/18 03/03/18 10:30 10:30 11:00 WBC RBC Hgb Hct MCV MCH MCHC RDW Plt Count Gran % Lymph % (Auto) [place] % (Auto) Eos % (Auto) Baso % (Auto) Gran # Lymph # (Auto) [place] # (Auto) Eos # (Auto) Baso # (Auto) Sodium Potassium Chloride Carbon Dioxide Anion Gap BUN Creatinine Est GFR ( Amer) Est GFR (Non-Af Amer) POC Glucose (mg/dL) Random Glucose Hemoglobin A1c Serum Osmolality Lactic Acid Calcium Phosphorus Magnesium Total Bilirubin Direct Bilirubin AST ALT Alkaline Phosphatase NT-Pro-B Natriuret Pep Total Protein Albumin Globulin Albumin/Globulin Ratio 25-OH Vitamin D Total Procalcitonin PTH Intact Whole Molec 469 H Urine Color Urine Appearance Urine pH Ur Specific [place] Urine Protein Urine Glucose (UA) Urine Ketones Urine Blood Urine Nitrate Urine Bilirubin Urine Urobilinogen Ur Leukocyte Esterase Urine RBC Urine WBC Ur Epithelial Cells Amorphous Sediment Urine Bacteria Random Vancomycin Tacrolimus (LC/MS/MS) 15.5 Hep Bs Antigen Hep Bs Antibody Hep B Core IgM Ab Blood Type O POSITIVE Antibody Screen Negative Crossmatch See Detail BBK History Checked Patient has bt 03/03/18 03/04/18 03/04/18 20:13 06:30 06:40 WBC RBC Hgb Hct MCV MCH MCHC RDW Plt Count Gran % Lymph % (Auto) [place] % (Auto) Eos % (Auto) Baso % (Auto) Gran # Lymph # (Auto) [place] # (Auto) Eos # (Auto) Baso # (Auto) Sodium Potassium Chloride Carbon Dioxide Anion Gap BUN Creatinine Est GFR ( Amer) Est GFR (Non-Af Amer) POC Glucose (mg/dL) Random Glucose Hemoglobin A1c 10.4 H D Serum Osmolality Lactic Acid Calcium Phosphorus Magnesium Total Bilirubin Direct Bilirubin AST ALT Alkaline Phosphatase NT-Pro-B Natriuret Pep Total Protein Albumin Globulin Albumin/Globulin Ratio 25-OH Vitamin D Total Procalcitonin 150.03 H PTH Intact Whole Molec Urine Color Urine Appearance Urine pH Ur Specific [place] Urine Protein Urine Glucose (UA) Urine Ketones Urine Blood Urine Nitrate Urine Bilirubin Urine Urobilinogen Ur Leukocyte Esterase Urine RBC Urine WBC Ur Epithelial Cells Amorphous Sediment Urine Bacteria Random Vancomycin Tacrolimus (LC/MS/MS) Hep Bs Antigen Negative Hep Bs Antibody Hep B Core IgM Ab Negative Blood Type Antibody Screen Crossmatch BBK History Checked 03/04/18 03/04/18 03/04/18 06:40 08:30 12:32 WBC RBC Hgb Hct MCV MCH MCHC RDW Plt Count Gran % Lymph % (Auto) [place] % (Auto) Eos % (Auto) Baso % (Auto) Gran # Lymph # (Auto) [place] # (Auto) Eos # (Auto) Baso # (Auto) Sodium Potassium Chloride Carbon Dioxide Anion Gap BUN Creatinine Est GFR ( Amer) Est GFR (Non-Af Amer) POC Glucose (mg/dL) 159 H Random Glucose Hemoglobin A1c Serum Osmolality Lactic Acid Calcium Phosphorus Magnesium Total Bilirubin Direct Bilirubin AST ALT Alkaline Phosphatase NT-Pro-B Natriuret Pep Total Protein Albumin Globulin Albumin/Globulin Ratio 25-OH Vitamin D Total 35.6 Procalcitonin PTH Intact Whole Molec Urine Color Urine Appearance Urine pH Ur Specific [place] Urine Protein Urine Glucose (UA) Urine Ketones Urine Blood Urine Nitrate Urine Bilirubin Urine Urobilinogen Ur Leukocyte Esterase Urine RBC Urine WBC Ur Epithelial Cells Amorphous Sediment Urine Bacteria Random Vancomycin Tacrolimus (LC/MS/MS) Hep Bs Antigen Hep Bs Antibody Indeterminate Hep B Core IgM Ab Blood Type Antibody Screen Crossmatch BBK History Checked 03/04/18 03/04/18 03/04/18 12:45 17:16 21:33 WBC RBC Hgb Hct MCV MCH MCHC RDW Plt Count Gran % Lymph % (Auto) [place] % (Auto) Eos % (Auto) Baso % (Auto) Gran # Lymph # (Auto) [place] # (Auto) Eos # (Auto) Baso # (Auto) Sodium Potassium Chloride Carbon Dioxide Anion Gap BUN Creatinine Est GFR ( Amer) Est GFR (Non-Af Amer) POC Glucose (mg/dL) 220 H 185 H Random Glucose Hemoglobin A1c Serum Osmolality Lactic Acid 0.7 Calcium Phosphorus Magnesium Total Bilirubin Direct Bilirubin AST ALT Alkaline Phosphatase NT-Pro-B Natriuret Pep Total Protein Albumin Globulin Albumin/Globulin Ratio 25-OH Vitamin D Total Procalcitonin PTH Intact Whole [place]ole[place] Urine Color Urine Appearance Urine pH Ur Specific [place] Urine Protein Urine Glucose (UA) Urine Ketones Urine Blood Urine Nitrate Urine Bilirubin Urine Urobilinogen Ur Leukocyte Esterase Urine RBC Urine WBC Ur Epithelial Cells Amorphous Sediment Urine Bacteria Random Vancomycin Tacrolimus (LC/MS/MS) Hep Bs Antigen Hep Bs Antibody Hep B Core IgM Ab Blood Type Antibody Screen Crossmatch BBK History Checked 03/04/18 03/05/18 03/05/18 23:41 05:30 05:30 WBC RBC Hgb Hct MCV MCH MCHC RDW Plt Count Gran % Lymph % (Auto) [place] % (Auto) Eos % (Auto) Baso % (Auto) Gran # Lymph # (Auto) [place] # (Auto) Eos # (Auto) Baso # (Auto) Sodium Potassium Chloride Carbon Dioxide Anion Gap BUN Creatinine Est GFR ( Amer) Est GFR (Non-Af Amer) POC Glucose (mg/dL) Random Glucose Hemoglobin A1c Serum Osmolality Lactic Acid Calcium Phosphorus 5.7 H Magnesium Total Bilirubin Direct Bilirubin AST ALT Alkaline Phosphatase NT-Pro-B Natriuret Pep 13163 H Total Protein Albumin Globulin Albumin/Globulin Ratio 25-OH Vitamin D Total Procalcitonin PTH Intact Whole [place]olec Urine Color Yellow Urine Appearance Clear Urine pH 5.5 Ur Specific [place] 1.020 Urine Protein 30 H Urine Glucose (UA) Negative Urine Ketones Negative Urine Blood Negative Urine Nitrate Negative Urine Bilirubin Negative Urine Urobilinogen 0.2 Ur Leukocyte Esterase Negative Urine RBC 0 - 2 Urine WBC 0 - 2 Ur Epithelial Cells 0 - 2 Amorphous Sediment Few Urine Bacteria Small Random Vancomycin Tacrolimus (LC/MS/MS) Hep Bs Antigen Hep Bs Antibody Hep B Core IgM Ab Blood Type Antibody Screen Crossmatch BBK History Checked 03/05/18 03/05/18 03/05/18 05:50 05:50 07:30 WBC 5.6 D RBC 2.81 L Hgb 6.4 L* D Hct 19.8 L* MCV 70.5 L MCH 22.8 L MCHC 32.3 RDW 19.6 H Plt Count 219 Gran % 95.2 H Lymph % (Auto) 3.4 L [place] % (Auto) 1.4 Eos % (Auto) 0.0 L Baso % (Auto) 0.0 Gran # 5.33 Lymph # (Auto) 0.2 L [place] # (Auto) 0.1 Eos # (Auto) 0.0 Baso # (Auto) 0.00 Sodium 136 Potassium 4.5 Chloride 96 L Carbon Dioxide 13 L Anion Gap 31 H BUN 87 H Creatinine 5.2 H Est GFR ( Amer) 14 Est GFR (Non-Af Amer) 11 POC Glucose (mg/dL) Random Glucose 277 H Hemoglobin A1c Serum Osmolality Lactic Acid Calcium 7.8 L Phosphorus Magnesium 2.1 Total Bilirubin 0.3 Direct Bilirubin 0.3 AST 24 ALT 22 Alkaline Phosphatase 74 NT-Pro-B Natriuret Pep Total Protein 5.4 L Albumin 3.3 Globulin 2.1 Albumin/Globulin Ratio 1.6 25-OH Vitamin D Total Procalcitonin PTH Intact Whole [place] Urine Color Urine Appearance Urine pH Ur Specific [place] Urine Protein Urine Glucose (UA) Urine Ketones Urine Blood Urine Nitrate Urine Bilirubin Urine Urobilinogen Ur Leukocyte Esterase Urine RBC Urine WBC Ur Epithelial Cells Amorphous Sediment Urine Bacteria Random Vancomycin 11.2 L Tacrolimus (LC/MS/MS) Hep Bs Antigen Hep Bs Antibody Hep B Core IgM Ab Blood Type Antibody Screen Crossmatch BBK History Checked 03/05/18 03/05/18 03/05/18 07:30 07:35 11:00 WBC 6.1 RBC 3.06 L Hgb 7.0 L Hct 21.6 L MCV 70.6 L MCH 22.9 L MCHC 32.4 RDW 19.7 H Plt Count 202 Gran % Lymph % (Auto) [place] % (Auto) Eos % (Auto) Baso % (Auto) Gran # Lymph # (Auto) [place] # (Auto) Eos # (Auto) Baso # (Auto) Sodium Potassium Chloride Carbon Dioxide Anion Gap BUN Creatinine Est GFR ( Amer) Est GFR (Non-Af Amer) POC Glucose (mg/dL) Random Glucose Hemoglobin A1c Serum Osmolality 327 H Lactic Acid 0.9 Calcium Phosphorus Magnesium Total Bilirubin Direct Bilirubin AST ALT Alkaline Phosphatase NT-Pro-B Natriuret Pep Total Protein Albumin Globulin Albumin/Globulin Ratio 25-OH Vitamin D Total Procalcitonin PTH Intact Whole [place] Urine Color Urine Appearance Urine pH Ur Specific [place] Urine Protein Urine Glucose (UA) Urine Ketones Urine Blood Urine Nitrate Urine Bilirubin Urine Urobilinogen Ur Leukocyte Esterase Urine RBC Urine WBC Ur Epithelial Cells Amorphous Sediment Urine Bacteria Random Vancomycin Tacrolimus (LC/MS/MS) Hep Bs Antigen Hep Bs Antibody Hep B Core IgM Ab Blood Type Antibody Screen Crossmatch BBK History Checked Critical Care Progress Note - Nutrition Nutrition: Nutrition Category Date Time Status Diabetic [Consistent Carbohydrate] [DIET] Diets 03/03/18 Dinner Ordered Assessment/Plan - Assessment and Plan (Free Text) Plan: Patient seen and examined on rounds with resident, agree with note with following additions/exceptions: Patient is 67 yo male w/PMHx of aortic valve replacement, anemia, renal transplant in 2006, hyperlipidemia, hypertension, insulin dependent diabetes, secondary hyperparathyroidism, polycystic kidney disease, chronic kidney disease, pulmonary hypertension admitted with metboalic acidosis 2/2 worsening renal failure, severe sepsis, initiated on HD on this admission. Currently afebrile, HD stable, comfortable in NAD Labs, imaging, chart reviewed HH 7.0 today, no overt signs of bleeding, will receive 1u PRBC with HD HD today as per renal ESRD n HD Anemia Hx renal transplant HTN IDDM Pulm HTN Recommend: - supp o2 as needed, duonebs PRN, - Broad spectrum abx as per ID, follow up cultures - hold BP meds - HD as per renal - transfuse 1u PRBC - check FOBT - GI eval - check Iron, TIBC, Ferritin, Folate, VitB12 levels - NPO - PPI - monitor electrolytes - D5W with 3amps Bicarb - GI ppx - DVT ppx, SCDs - monitor in MICU critical care time 35 minutes
--- NOTE | 2018-03-05 07:56 | CP.PCM.PN ---
<Domenico Cobb - Last Filed: 03/05/18 12:41> Subjective - Date & Time of Evaluation Date of Evaluation: 03/05/18 Time of Evaluation: 07:20 - Subjective Subjective: Domenico Cobb DO, PGY-2: Nephrology Progress Note for Dr. Wheeler Patient was seen and examined at bedside. He reports feeling progressively better with dialysis. He reports not feeling as much dyspnea, alteration in taste, nausea, or vomiting. Hemoglobin was noted to be 6.4, repeat hemoglobin was 7.0. Case was discussed with ICU team. Plan is to transfuse 2 units of PRBCs during dialysis. Otherwise, nurse reports patient is not eating and still has labored breathing, evident during the encounter. Objective - Vital Signs/Intake and Output Vital Signs (last 24 hours): Temp Pulse Resp BP Pulse Ox 98.6 F 102 H 57 H 129/63 100 03/04/18 23:59 03/05/18 06:30 03/05/18 06:30 03/05/18 06:00 03/05/18 05:30 Intake and Output: 03/05/18 03/05/18 06:59 18:59 Intake Total 400 Output Total 500 Balance -100 - Medications Medications: Current Medications Acetaminophen (Tylenol 325mg Tab) 650 mg PO Q6 PRN PRN Reason: TEMP>=99.5F Acetaminophen (Tylenol 650 Mg Supp) 650 mg RC Q6H PRN PRN Reason: TEMP>=99.5F Acetaminophen (Tylenol 650 Mg Supp) 650 mg RC Q6H PRN PRN Reason: Headache Acetaminophen (Tylenol 325mg Tab) 650 mg PO Q6H PRN PRN Reason: Headache Atorvastatin Calcium (Lipitor) 20 mg PO DIN [facility] Last Admin: 03/04/18 18:30 Dose: 20 mg Benzonatate (Tessalon Perles) 200 mg PO TID [facility] Last Admin: 03/04/18 18:41 Dose: 200 mg Calcitriol (Rocaltrol) 0.5 mcg PO DAILY [facility] Last Admin: 03/04/18 14:10 Dose: 0.5 mcg Calcium Acetate (Phoslo) 667 mg PO WM [facility] Last Admin: 03/04/18 18:31 Dose: 667 mg Calcium Carbonate (Oscal) 500 mg PO BID [facility] Last Admin: 09/25/18 18:31 Dose: 500 mg Cinacalcet (Sensipar) 30 mg PO DAILY [facility] Docusate Sodium (Colace) 100 mg PO TID [facility] Last Admin: 03/04/18 18:27 Dose: 100 mg Ezetimibe (Zetia) 10 mg PO DAILY [facility] Last Admin: 03/04/18 14:04 Dose: 10 mg Ferrous Gluconate (Fergon) 324 mg PO BID [facility] Last Admin: 03/04/18 18:28 Dose: 324 mg Hydrocortisone Sodium Succinate (Solu-Cortef) 50 mg IVP Q6H [facility] Last Admin: 03/05/18 05:14 Dose: 50 mg Doxycycline Hyclate 100 mg/ (Sodium Chloride) 100 mls @ 100 mls/hr IVPB Q12 [facility]; Protocol Last Admin: 03/04/18 21:03 Dose: 100 mls/hr Meropenem 500 mg/ Sodium (Chloride) 50 mls @ 100 mls/hr IVPB Q24H [facility]; Protocol Stop: 03/10/18 22:46 Last Admin: 03/04/18 22:00 Dose: 100 mls/hr Insulin Human Lispro (Humalog High) 0 units SC ACHS [facility]; Protocol Last Admin: 03/04/18 21:46 Dose: Not Given Levalbuterol HCl (Xopenex) 0.63 mg IH [id number] [facility] Last Admin: 03/05/18 07:00 Dose: 0.63 mg Midodrine (Proamatine) 5 mg PO TID [facility] Last Admin: 03/04/18 18:32 Dose: 5 mg Ondansetron HCl (Zofran Inj) 4 mg IVP Q4H PRN PRN Reason: Nausea/Vomiting Pantoprazole Sodium (Protonix Ec Tab) 40 mg PO 0600 [facility] Last Admin: 03/05/18 05:14 Dose: 40 mg Polyethylene Glycol (Miralax) 17 gm PO BID [facility] Last Admin: 03/04/18 14:33 Dose: Not Given Tacrolimus (Prograf Cap) 1 mg PO QPM [facility] Last Admin: 03/04/18 18:33 Dose: 1 mg Tacrolimus (Prograf Cap) 2 mg PO QAM [facility] Last Admin: 03/04/18 14:19 Dose: 2 mg - Labs Labs: 03/05/18 05:50 03/05/18 05:50 PT 12.8 SECONDS (9.4-12.5) H 03/03/18 10:20 INR 1.11 03/03/18 10:20 APTT 27.9 Seconds (25.1-36.5) 03/03/18 10:20 - Constitutional Appears: Non-toxic, Cachectic - Head Exam Head Exam: ATRAUMATIC, NORMOCEPHALIC - Eye Exam Eye Exam: EOMI, Normal appearance - ENT Exam ENT Exam: Mucous Membranes Dry - Neck Exam Additional comments: JVD noted - Respiratory Exam Respiratory Exam: Accessory Muscle Use Additional comments: RR 32 - Cardiovascular Exam Cardiovascular Exam: Tachycardia, +S1, +S2 Additional comments: 3/6 CRISTINE loudest in right 2nd intercostal space - GI/Abdominal Exam GI & Abdominal Exam: Soft, Normal Bowel Sounds - Extremities Exam Extremities Exam: absent: Calf Tenderness Additional comments: 2/4 Lower extremity pitting edema - Back Exam Additional comments: left AVF has palpable thrill - Neurological Exam Neurological Exam: Alert, Awake, Oriented x3 - Psychiatric Exam Psychiatric exam: Normal Affect, Normal Mood - Skin Skin Exam: Dry, Intact, Normal Color, Warm Assessment and Plan (1) Acute kidney injury Assessment & Plan: MYRNA on CKD with improvement in metabolic acidosis Continue with HD session using low blood flow to prevent dialysis dysequilibrium, high bicarb dialysate Status: Acute (2) Anemia of renal disease Status: Acute (3) Immunosuppression Status: Acute (4) Severe sepsis Status: Acute (5) Chronic kidney disease (CKD), stage IV (severe) Status: Chronic (6) Chronic kidney disease-mineral and bone disorder Status: Acute (7) AAA (abdominal aortic aneurysm) Status: Chronic (8) Renal transplant, status post Status: Chronic - Assessment and Plan (Free Text) Assessment: 67 year old male with a past medical history of renal transplant in 2006 (on Tacrolimus and Cellcept), Aortic valve replacement in 2002, anemia AAA, CKD IV with MYRNA who presented with over one week of decreased appetite, dygeusia, nausea, decreased urinary output and was found to have an MYRNA, electrolyte abnormalities, metabolic acidosis, persistent hypotension warranting low blood flow dialysis with positive net fluid balance to prevent dialysis dysequilibrium. High bicarbonate dialysate will also be utilized to neutralize metabolic acidosis. We will continue Phosphate binder though the serum phosphorus is below 6 mg/dL. Continue with current medications. Patient to undergo 2nd session of HD for three hours and will receive PRBCs (deferred to ICU team and primary). D-Lactic Acidosis ordered given patient has an unexplained high anion gap. We will continue to follow the patient closely. Case was reviewed and discussed with attending physician, Dr. Wheeler <Dandy Wheeler - Last Filed: 03/06/18 01:44> Objective - Vital Signs/Intake and Output Vital Signs (last 24 hours): Temp Pulse Resp BP Pulse Ox 98.1 F 120 H 28 H 130/66 100 03/06/18 00:00 03/06/18 00:31 03/06/18 00:31 03/06/18 00:31 03/06/18 00:31 Intake and Output: 03/05/18 03/06/18 18:59 06:59 Intake Total 1100 Output Total 900 Balance 200 - Medications Medications: Current Medications Acetaminophen (Tylenol 325mg Tab) 650 mg PO Q6 PRN PRN Reason: TEMP>=99.5F Acetaminophen (Tylenol 650 Mg Supp) 650 mg RC Q6H PRN PRN Reason: TEMP>=99.5F Acetaminophen (Tylenol 650 Mg Supp) 650 mg RC Q6H PRN PRN Reason: Headache Acetaminophen (Tylenol 325mg Tab) 650 mg PO Q6H PRN PRN Reason: Headache Atorvastatin Calcium (Lipitor) 20 mg PO DIN [facility] Last Admin: 03/05/18 20:08 Dose: 20 mg Benzonatate (Tessalon Perles) 200 mg PO TID [facility] Last Admin: 03/05/18 20:02 Dose: 200 mg Calcitriol (Rocaltrol) 0.5 mcg PO DAILY [facility] Last Admin: 03/05/18 10:44 Dose: 0.5 mcg Calcium Acetate (Phoslo) 667 mg PO WM [facility] Last Admin: 03/05/18 20:08 Dose: 667 mg Calcium Carbonate (Oscal) 500 mg PO BID [facility] Last Admin: 03/05/18 20:08 Dose: 500 mg Cinacalcet (Sensipar) 30 mg PO DAILY [facility] Docusate Sodium (Colace) 100 mg PO TID [facility] Last Admin: 03/05/18 20:02 Dose: 100 mg Ezetimibe (Zetia) 10 mg PO DAILY [facility] Last Admin: 03/05/18 10:41 Dose: 10 mg Ferrous Gluconate (Fergon) 324 mg PO BID [facility] Last Admin: 03/05/18 20:08 Dose: 324 mg Hydrocortisone Sodium Succinate (Solu-Cortef) 50 mg IVP Q6H [facility] Last Admin: 03/06/18 00:52 Dose: 50 mg Doxycycline Hyclate 100 mg/ (Sodium Chloride) 100 mls @ 100 mls/hr IVPB Q12 [facility]; Protocol Last Admin: 03/05/18 22:01 Dose: 100 mls/hr Meropenem 500 mg/ Sodium (Chloride) 50 mls @ 100 mls/hr IVPB Q24H [facility]; Protocol Stop: 03/10/18 22:46 Last Admin: 03/05/18 21:59 Dose: 100 mls/hr Sodium Bicarbonate 150 meq/ (Dextrose) 1,150 mls @ 75 mls/hr IV .[id number] [facility] Insulin Human Lispro (Humalog High) 0 units SC ACHS [facility]; Protocol Last Admin: 03/05/18 22:52 Dose: 4 u Levalbuterol HCl (Xopenex) 0.63 mg IH [id number] [facility] Last Admin: 03/05/18 20:05 Dose: 0.63 mg Midodrine (Proamatine) 5 mg PO TID [facility] Last Admin: 03/05/18 20:02 Dose: 5 mg Ondansetron HCl (Zofran Inj) 4 mg IVP Q4H PRN PRN Reason: Nausea/Vomiting Pantoprazole Sodium (Protonix Ec Tab) 40 mg PO 0600 [facility] Last Admin: 03/05/18 05:14 Dose: 40 mg Polyethylene Glycol (Miralax) 17 gm PO BID [facility] Last Admin: 03/05/18 20:07 Dose: 17 gm Tacrolimus (Prograf Cap) 1 mg PO QPM [facility] Last Admin: 03/05/18 20:08 Dose: 1 mg Tacrolimus (Prograf Cap) 2 mg PO QAM [facility] Last Admin: 03/05/18 10:46 Dose: 2 mg - Labs Labs: 03/05/18 07:35 03/05/18 05:50 PT 12.8 SECONDS (9.4-12.5) H 03/03/18 10:20 INR 1.11 03/03/18 10:20 APTT 27.9 Seconds (25.1-36.5) 09/24/18 10:20 Assessment and Plan (1) Acute kidney injury Status: Acute (2) Severe sepsis Status: Acute (3) Anemia of renal disease Status: Acute (4) Immunosuppression Status: Acute (5) Chronic kidney disease (CKD), stage IV (severe) Status: Chronic (6) AAA (abdominal aortic aneurysm) Status: Chronic (7) Chronic kidney disease-mineral and bone disorder Status: Acute (8) Renal transplant, status post Status: Chronic Attending/Attestation - Attestation I have personally seen and examined this patient.: Yes I have fully participated in the care of the patient.: Yes I have reviewed all pertinent clinical information, including history, physical exam and plan: Yes Notes (Text): Patient seen and examined; I agree with the resident's note as above with the following additions/edits: 67 yo M w/ htn, dm, s/p renal allograft, unrepaired large infra-renal AAA, admitted with severe sepsis and acute renal failure; Failing allograft with baseline serum creatinine in 3-4 range; now with MYRNA, likely ATN in the setting of sepsis/hypotension; initiated on HD yesterday (primarily for control of metabolic acidosis) via old L forearm AVF; second session today with increased blood flow and longer treatment time for better clearance; next session for tomorrow, at full blood flow over 3.5 hrs; Will not yet deem patient ESRD as he may recover renal function to baseline; Still with persistent high anion-gap metabolic acidosis; no osmolol gap; lactic acid level normalized; renal failure itself can be the only culprit but this degree of acidosis is unusual; will continue on high bicarb dialysate on HD; Persistent anemia, likely due to CKD but has been in need of colonoscopy (not done due to large AAA); getting 1 u prbc transfusion on HD today; giving aranesp 100 mcg after discussion with heme; On tacrolimus 2 mg in am, 1 mg in pm, as well as prednisone 5 mg daily as part of immunosuppression regimen for renal allograft; holding MMF due to severe sepsis, will restart once patient well stabilized; CKD Mineral Bone Disorder; PTH elevated but within goal for this degree of renal failure; giving calcitriol 0.5 mcg daily; holding sensipar for now, especially with patient hypocalcemic; continue phoslo 1 tab w/ meals; On meropenem 500 mg q24h, dosed for HD, continue to dose post-HD; no need for renal dose adjustment for doxy; Thank you for this referral, we will continue to follow closely.
--- NOTE | 2018-03-05 08:54 | RAD ---
Date of service: 03/05/2018 HISTORY: tachypnea COMPARISON: Portable chest 03/03/2018. FINDINGS: LUNGS: Underlying airspace disease is not excluded the left base. PLEURA: Bilateral pleural effusions persist. No pneumothorax bilaterally. Right hemidiaphragm elevation reiterated. CARDIOVASCULAR: Stable mild cardiomegaly. No pulmonary vascular congestion appears sternotomy wires and prosthetic cardiac valve reiterated. OSSEOUS STRUCTURES: No significant abnormalities. VISUALIZED UPPER ABDOMEN: Normal. OTHER FINDINGS: None. IMPRESSION: Mild bilateral pleural effusions persist. No pulmonary vascular congestion. Underlying infiltrate not excluded at the left base.
[2018-03-05] MEDS: Insulin Lispro (HUMAlog) HIGH Coverage SC SCH ×3 (08:55→22:52)
--- NOTE | 2018-03-05 09:10 | PN ---
DATE: 03/04/2018 SUBJECTIVE: The patient is seen in ICU, bed 2. The patient is presently getting dialyzed as per Dr. Wheeler's recommendation.. The patient was seen and examined in ICU, bed 2. The patient is awake, responsive. The patient is seen lying in the bed. The patient's overnight nurse's notes were reviewed. Overnight, the patient's blood pressure stayed low. PHYSICAL EXAMINATION: VITAL SIGNS: T-max is 97.8, heart rate 94, 97, last documented blood pressure 109/49, 99/57, 95/58, 107/60, respirations 30-28, O2 sat 100%. GENERAL: The patient is seen lying in the bed. HEENT: Head: Normocephalic, atraumatic. HEENT examination shows pinkish pale conjunctivae. Anicteric sclerae. No oropharyngeal lesion. NECK: No neck rigidity. CHEST: Kyphosis. Positive median sternotomy surgical scar. CARDIOVASCULAR: S1 and S2. Positive systolic murmur, left sternal border, right second intercostal space, left second intercostal space. ABDOMEN: Soft. Positive midline pulsation. GENITALIA: Male. EXTREMITIES: Positive left upper extremity AV fistula. Shows positive pitting edema. Positive poor foot hygiene. MUSCULOSKELETAL: Shows a body mass index of 16. NEUROLOGICAL: The patient is alert, awake, oriented x3. He is able to move extremity without assistance. Gait examination not tested. The patient is lying in the bed. DIAGNOSTICS: On 03/04/2018, WBC 4.3, hemoglobin and hematocrit 8.7 and 27.1, MCV 71, platelets 147, granulocyte 95% segs. The patient had an ABG done which shows pH of 7.29, pCO2 19, pO2 120, bicarb of 9.1, O2 sat is 98%. The patient's chemistry from this morning. The patient had multiple chemistries done today. Most latest chemistry shows a sodium of 132, potassium 4.2, chloride 94, CO2 10, anion gap 32, BUN is 116, creatinine 7.1, glucose 304, hemoglobin A1c 10.4, calcium 7.5, phosphorus 6.9. Earlier sodium was 131, potassium 5.3, yesterday, the patient's sodium was 129. Calcium was 6.1. Procalcitonin level is 150. Vitamin D is 35. Hepatitis B surface antigen, B core IM negative. Blood cultures no growth. IMPRESSION: 1. Hypotensive shock versus questionable septic shock with hyperprocalcitoninemia. 2. History of polycystic kidney disease, history of renal transplant. 3. Lactic acidosis. 4. Increased anion gap metabolic acidosis. 5. Tachycardia. 6. Tachypnea. 7. Leukopenia, anemia. 8. Granulocytosis. 9. Lactic acidosis. 10. Increased anion gap metabolic acidosis. 11. Severe metabolic acidosis. 12. Hyponatremia. 13. Status post hyperkalemia. 14. Hemodialysis requiring renal failure. 15. Hypocalcemia. 16. Hyperphosphatemia. 17. Hypomagnesemia. 18. Protein malnutrition. 19. Hypoalbuminemia. 20. Secondary hyperparathyroidism with elevated PTH of 469. 21. Hyperprocalcitoninemia. 22. Right upper lobe pneumonia. 23. Bibasilar atelectasis and bilateral pleural effusion. 24. Status post aortic valve replacement. 25. Status post aortic valve replacement with proximal aortic valve graft. 26. Descending aortic aneurysm. 27. Bilateral pleural effusion, left more than the right. 28. Dilated esophagus. 29. Multiple hepatic cyst and masses. 30. Gallbladder distention. 31. Polycystic kidney disease. 32. An 8.3-cm infrarenal abdominal aortic aneurysm. 33. Chronic infrarenal abdominal aortic dissection at and below the level of the renal arteries. 34. Diverticulosis of the colon. 35. Hydronephrosis of the transplanted kidney. 36. Polycystic kidney disease. 37. Left axis deviation. 38. Coronary ischemic changes. 39. 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 40. Acute renal failure with acute kidney injury with underlying chronic kidney disease and possible failing transplanted renal allograft. 41. Questionable and possible septic versus hypovolemic and hypotensive shock. 42. High anion gap metabolic acidosis. 1. Severe symptomatic hypotension. 2. Severe symptomatic anemia with symptoms of fatigue, tiredness, shortness of breath and dyspnea on exertion. 3. Worsening renal failure with worsening chronic kidney disease. 4. Hyponatremia. 5. Hyperkalemia. 6. Anemia of chronic kidney disease with iron-deficiency anemia. 7. Granulocytosis. 8. Lymphocytopenia. 9. Hyponatremia. 10. Non-hemolyzed hyperkalemia. 11. Increased anion gap metabolic acidosis. 12. History of end-stage renal disease, hemodialysis dependent in the past with status post renal transplant. 13. Insulin-requiring diabetes mellitus with hyperglycemia. 14. Hypocalcemia. PLAN AT THIS TIME: The patient is to be started on dialysis as per Nephrology. The patient has been ordered serial labs. The patient's lactic acid is pending. The patient's blood cultures have been received. CURRENT CONSULTATION: Nephrology, Gastroenterology, Hematology/Oncology, Infectious Disease, Interventional Radiology for a PICC line, Urology, Podiatry. CURRENT MEDICATIONS: The patient received calcium gluconate 1 ampule, Colace 100 three times a day, doxycycline 100 mg IV every 12, Fergon 324 twice a day, Humalog high-dose sliding scale coverage before meals and at bedtime, Lipitor 20 mg daily, meropenem 500 IV every 24, MiraLax 17 g twice a day, Os-Krystian 500 twice a day ordered and PhosLo 667 mg with meals ordered by Dr. Wheeler, ProAmatine 5 mg three times a day, Prograf 2 mg in a.m. and 1 mg in p.m., Protonix 40 daily, Rocaltrol 0.5 mcg daily, Sensipar 30 mg daily. The patient has been ordered Solu-Cortef 100 mg x1 dose yesterday and Solu-Cortef 50 mg IV every 6, Tessalon 200 three times a day, Tylenol p.r.n., Xopenex nebulizer 0.63 mg every 6 hours, Zetia 10 mg daily, Zofran 4 IV every 4. Chest PT, incentive spirometry, oxygen, KRYSTAL stockings, SCDs have been ordered. Time spent in the entire management more than 35 minutes. Overall prognosis is guarded to poor. Dictated and electronically signed, not read. Mart Knox MD [id number]
--- NOTE | 2018-03-05 09:24 | CP.PCM.CON ---
<NevaSean - Last Filed: 03/05/18 09:13> History of Present Illness - History of Present Illness History of Present Illness: Podiatry consult notes for attending Dr. Aragon: 67 y/o female patient with PMH of Renal failure aortic valve replacement, anemia, renal transplant in 2006, hyperlipidemia, hypertension, insulin dependent diabetes, secondary hyperparathyroidism, polycystic kidney disease, chronic kidney disease, pulmonary hypertension, diastolic congestive heart failure, cachexia, and aortic dissection seen and evaluated at the bed side for b/l dry feet and thickened, elongated and dystrophic toe nails. Patient states that his toe nails are not painful. Patient states that he can't reach his feet to take care of it because of his medical condition. Patient denies any current F/N/V/C. Patient has SOB currently due to his hear failure and renal failure. Patient denies any other pedal complaint at this time. PMH: aortic valve replacement, anemia, renal transplant in 2007, hyperlipidemia, hypertension, insulin dependent diabetes, secondary hyperparathyroidism, perez ycystic kidney disease, chronic kidney disease, pulmonary hypertension, diastolic congestive heart failure, cachexia, and aortic dissection, Renal failure. PSH: aortic valve replacement, renal transplant in 2006, AAA repair Allergies: NKDA Social Hx: former smoker and ETOH drinker (Patient used to smoked 1-2 cigarettes a day for 30 years). Patient denies recreational drug use. Review of Systems - Review of Systems Review of Systems: As per HPI Past Patient History - Infectious Disease Hx of Infectious Diseases: None - Past Medical History & Family History Past Medical History?: Yes - Past Social History Smoking Status: Former Smoker - CARDIAC Hx Cardiac Disorders: Yes (CAD) Hx Hypertension: Yes Hx Peripheral Edema: Yes (+1 pitting ble) Other/Comment: Aortic Valve Replacement at [facility], aortic abdominal aneurysm unable to do sx at present time - PULMONARY Hx Respiratory Disorders: No - NEUROLOGICAL Hx Neurological Disorder: No - HEENT Hx HEENT Problems: Yes (wears glasses) - RENAL Hx Chronic Kidney Disease: Yes (stage iv) Hx Dialysis: Yes (left arm fistula) Other/Comment: Kidney transplant at [facility] in [facility], last dialysis oct 08 2006, hypertensive chronic kidney disease - ENDOCRINE/METABOLIC Hx Endocrine Disorders: Yes Hx Diabetes Mellitus Type 2: Yes - HEMATOLOGICAL/ONCOLOGICAL Hx Blood Disorders: Yes (blood transfusions most recent 3 wks ago) Hx Anemia: Yes (iron deficiency) Other/Comment: dx with anemia 2 yrs ago unable to get a colonoscopy due to aaa, may try new procedure in [place] as per pt, receives iron infusions from pt's , dr scales in [place] - INTEGUMENTARY Hx Dermatological Problems: Yes Other/Comment: multiple skin discolorations ble, pt refusing for me to removd his anti embolism stockings/shoes and socks to assess feet, pt stated "I'm embarrassed. I plan to see foot dr within a few weeks but I have had other health problems." pt stated. - MUSCULOSKELETAL/RHEUMATOLOGICAL Hx Musculoskeletal Disorders: Yes Hx Unsteady Gait: Yes - GASTROINTESTINAL Hx Gastrointestinal Disorders: Yes (poor appetite weight loss) Other/Comment: AAA, chronic hiccups - GENITOURINARY/GYNECOLOGICAL Hx Genitourinary Disorders: Yes Other/Comment: bilateral inguinal hernias (repaired) - PSYCHIATRIC Hx Psychophysiologic Disorder: No - SURGICAL HISTORY Hx Surgeries: Yes Hx Kidney Transplant: Yes (last hd oct 08 2006) Other/Comment: Aortic valve replacement, left forearm fistula not is use since october 08, 2006 - ANESTHESIA Hx Anesthesia: Yes Hx Anesthesia Reactions: No Hx Malignant Hyperthermia: No Meds Allergies/Adverse Reactions: Allergies Allergy/AdvReac Type Severity Reaction Status Date / Time No Known Allergies Allergy Verified 03/03/18 09:25 - Medications Medications: Current Medications Acetaminophen (Tylenol 325mg Tab) 650 mg PO Q6 PRN PRN Reason: TEMP>=99.5F Acetaminophen (Tylenol 650 Mg Supp) 650 mg RC Q6H PRN PRN Reason: TEMP>=99.5F Acetaminophen (Tylenol 650 Mg Supp) 650 mg RC Q6H PRN PRN Reason: Headache Acetaminophen (Tylenol 325mg Tab) 650 mg PO Q6H PRN PRN Reason: Headache Atorvastatin Calcium (Lipitor) 20 mg PO DIN [facility] Last Admin: 03/04/18 18:30 Dose: 20 mg Benzonatate (Tessalon Perles) 200 mg PO TID [facility] Last Admin: 03/04/18 18:41 Dose: 200 mg Calcitriol (Rocaltrol) 0.5 mcg PO DAILY [facility] Last Admin: 03/04/18 14:10 Dose: 0.5 mcg Calcium Acetate (Phoslo) 667 mg PO WM [facility] Last Admin: 03/05/18 08:55 Dose: 667 mg Calcium Carbonate (Oscal) 500 mg PO BID [facility] Last Admin: 03/04/18 18:31 Dose: 500 mg Cinacalcet (Sensipar) 30 mg PO DAILY [facility] Docusate Sodium (Colace) 100 mg PO TID [facility] Last Admin: 03/04/18 18:27 Dose: 100 mg Ezetimibe (Zetia) 10 mg PO DAILY [facility] Last Admin: 03/04/18 14:04 Dose: 10 mg Ferrous Gluconate (Fergon) 324 mg PO BID [facility] Last Admin: 03/04/18 18:28 Dose: 324 mg Hydrocortisone Sodium Succinate (Solu-Cortef) 50 mg IVP Q6H [facility] Last Admin: 03/05/18 05:14 Dose: 50 mg Doxycycline Hyclate 100 mg/ (Sodium Chloride) 100 mls @ 100 mls/hr IVPB Q12 [facility]; Protocol Last Admin: 03/04/18 21:03 Dose: 100 mls/hr Meropenem 500 mg/ Sodium (Chloride) 50 mls @ 100 mls/hr IVPB Q24H [facility]; Protocol Stop: 03/10/18 22:46 Last Admin: 03/04/18 22:00 Dose: 100 mls/hr Insulin Human Lispro (Humalog High) 0 units SC ACHS [facility]; Protocol Last Admin: 03/05/18 08:55 Dose: 7 u Levalbuterol HCl (Xopenex) 0.63 mg IH [id number] [facility] Last Admin: 03/05/18 07:00 Dose: 0.63 mg Midodrine (Proamatine) 5 mg PO TID [facility] Last Admin: 03/04/18 18:32 Dose: 5 mg Ondansetron HCl (Zofran Inj) 4 mg IVP Q4H PRN PRN Reason: Nausea/Vomiting Pantoprazole Sodium (Protonix Ec Tab) 40 mg PO 0600 [facility] Last Admin: 03/05/18 05:14 Dose: 40 mg Polyethylene Glycol (Miralax) 17 gm PO BID [facility] Last Admin: 03/04/18 14:33 Dose: Not Given Tacrolimus (Prograf Cap) 1 mg PO QPM [facility] Last Admin: 03/04/18 18:33 Dose: 1 mg Tacrolimus (Prograf Cap) 2 mg PO QAM [facility] Last Admin: 03/04/18 14:19 Dose: 2 mg Physical Exam - Constitutional Appears: Non-toxic - Head Exam Head Exam: ATRAUMATIC, NORMOCEPHALIC - Extremities Exam Additional comments: B/l LE focused exam: Vasc: DP/PT 1/4 B/l. Cap refill < 3 sec in all digits. Temp gradient warm to cool b/l from proximal to distal. Bilateral +2 pitting edema extending up to the tibial tuberosity. Neuro: Gross sensation is intact b/l. Protective sensation diminished b/l. Derm: No open lesion. No clinical signs of infections. Toe nails elongated, dystrophic, discolored, horn shaped and thickened X 10. Extensive dryness of the feet b/l. MSK: Mild pain o palpating the nail folds. Muscle power 4/5 in all groups. - Neurological Exam Neurological exam: Alert, Oriented x3 - Psychiatric Exam Psychiatric exam: Normal Affect Results - Vital Signs Recent Vital Signs: Last Vital Signs Temp 98.6 F 03/04/18 23:59 Pulse 102 H 03/05/18 06:30 Resp 57 H 03/05/18 06:30 BP 129/63 03/05/18 06:00 Pulse Ox 100 03/05/18 05:30 - Labs Result Diagrams: 03/05/18 07:35 03/05/18 05:50 Labs: Laboratory Results - last 24 hr 03/03/18 03/03/18 03/03/18 10:30 10:30 11:00 WBC RBC Hgb Hct MCV MCH MCHC RDW Plt Count Gran % Lymph % (Auto) [place] % (Auto) Eos % (Auto) Baso % (Auto) Gran # Lymph # (Auto) [place] # (Auto) Eos # (Auto) Baso # (Auto) Sodium Potassium Chloride Carbon Dioxide Anion Gap BUN Creatinine Est GFR ( Amer) Est GFR (Non-Af Amer) POC Glucose (mg/dL) Random Glucose Hemoglobin A1c Lactic Acid Calcium Phosphorus Magnesium Total Bilirubin Direct Bilirubin AST ALT Alkaline Phosphatase Total Protein Albumin Globulin Albumin/Globulin Ratio 25-OH Vitamin D Total Procalcitonin PTH Intact Whole Molec 469 H Urine Color Urine Appearance Urine pH Ur Specific [place] Urine Protein Urine Glucose (UA) Urine Ketones Urine Blood Urine Nitrate Urine Bilirubin Urine Urobilinogen Ur Leukocyte Esterase Urine RBC Urine WBC Ur Epithelial Cells Amorphous Sediment Urine Bacteria Random Vancomycin Tacrolimus (LC/MS/MS) 15.5 Hep Bs Antigen Hep Bs Antibody Hep B Core IgM Ab Blood Type O POSITIVE Antibody Screen Negative Crossmatch See Detail BBK History Checked Patient has bt 03/03/18 03/04/18 03/04/18 20:13 06:30 06:40 WBC RBC Hgb Hct MCV MCH MCHC RDW Plt Count Gran % Lymph % (Auto) [place] % (Auto) Eos % (Auto) Baso % (Auto) Gran # Lymph # (Auto) [place] # (Auto) Eos # (Auto) Baso # (Auto) Sodium Potassium Chloride Carbon Dioxide Anion Gap BUN Creatinine Est GFR ( Amer) Est GFR (Non-Af Amer) POC Glucose (mg/dL) Random Glucose Hemoglobin A1c 10.4 H D Lactic Acid Calcium Phosphorus Magnesium Total Bilirubin Direct Bilirubin AST ALT Alkaline Phosphatase Total Protein Albumin Globulin Albumin/Globulin Ratio 25-OH Vitamin D Total Procalcitonin 150.03 H PTH Intact Whole Molec Urine Color Urine Appearance Urine pH Ur Specific [place] Urine Protein Urine Glucose (UA) Urine Ketones Urine Blood Urine Nitrate Urine Bilirubin Urine Urobilinogen Ur Leukocyte Esterase Urine RBC Urine WBC Ur Epithelial Cells Amorphous Sediment Urine Bacteria Random Vancomycin Tacrolimus (LC/MS/MS) Hep Bs Antigen Negative Hep Bs Antibody Hep B Core IgM Ab Negative Blood Type Antibody Screen Crossmatch BBK History Checked 03/04/18 03/04/18 03/04/18 06:40 08:30 10:00 WBC RBC Hgb Hct MCV MCH MCHC RDW Plt Count Gran % Lymph % (Auto) [place] % (Auto) Eos % (Auto) Baso % (Auto) Gran # Lymph # (Auto) [place] # (Auto) Eos # (Auto) Baso # (Auto) Sodium 132 Potassium 4.2 Chloride 94 L Carbon Dioxide 10 L Anion Gap 32 H BUN 116 H Creatinine 7.1 H Est GFR ( Amer) 9 Est GFR (Non-Af Amer) 8 POC Glucose (mg/dL) Random Glucose 304 H* Hemoglobin A1c Lactic Acid Calcium 7.5 L Phosphorus 6.9 H Magnesium 2.0 Total Bilirubin Direct Bilirubin AST ALT Alkaline Phosphatase Total Protein Albumin Globulin Albumin/Globulin Ratio 25-OH Vitamin D Total 35.6 Procalcitonin PTH Intact Whole Molec Urine Color Urine Appearance Urine pH Ur Specific [place] Urine Protein Urine Glucose (UA) Urine Ketones Urine Blood Urine Nitrate Urine Bilirubin Urine Urobilinogen Ur Leukocyte Esterase Urine RBC Urine WBC Ur Epithelial Cells Amorphous Sediment Urine Bacteria Random Vancomycin Tacrolimus (LC/MS/MS) Hep Bs Antigen Hep Bs Antibody Indeterminate Hep B Core IgM Ab Blood Type Antibody Screen Crossmatch BBK History Checked 03/04/18 03/04/18 03/04/18 12:32 12:45 17:16 WBC RBC Hgb Hct MCV MCH MCHC RDW Plt Count Gran % Lymph % (Auto) [place] % (Auto) Eos % (Auto) Baso % (Auto) Gran # Lymph # (Auto) [place] # (Auto) Eos # (Auto) Baso # (Auto) Sodium Potassium Chloride Carbon Dioxide Anion Gap BUN Creatinine Est GFR ( Amer) Est GFR (Non-Af Amer) POC Glucose (mg/dL) 159 H 220 H Random Glucose Hemoglobin A1c Lactic Acid 0.7 Calcium Phosphorus Magnesium Total Bilirubin Direct Bilirubin AST ALT Alkaline Phosphatase Total Protein Albumin Globulin Albumin/Globulin Ratio 25-OH Vitamin D Total Procalcitonin PTH Intact Whole Molec Urine Color Urine Appearance Urine pH Ur Specific [place] Urine Protein Urine Glucose (UA) Urine Ketones Urine Blood Urine Nitrate Urine Bilirubin Urine Urobilinogen Ur Leukocyte Esterase Urine RBC Urine WBC Ur Epithelial Cells Amorphous Sediment Urine Bacteria Random Vancomycin Tacrolimus (LC/MS/MS) Hep Bs Antigen Hep Bs Antibody Hep B Core IgM Ab Blood Type Antibody Screen Crossmatch BBK History Checked 03/04/18 03/04/18 03/05/18 21:33 23:41 05:30 WBC RBC Hgb Hct MCV MCH MCHC RDW Plt Count Gran % Lymph % (Auto) [place] % (Auto) Eos % (Auto) Baso % (Auto) Gran # Lymph # (Auto) [place] # (Auto) Eos # (Auto) Baso # (Auto) Sodium Potassium Chloride Carbon Dioxide Anion Gap BUN Creatinine Est GFR ( Amer) Est GFR (Non-Af Amer) POC Glucose (mg/dL) 185 H Random Glucose Hemoglobin A1c Lactic Acid Calcium Phosphorus 5.7 H Magnesium Total Bilirubin Direct Bilirubin AST ALT Alkaline Phosphatase Total Protein Albumin Globulin Albumin/Globulin Ratio 25-OH Vitamin D Total Procalcitonin PTH Intact Whole [place]olec Urine Color Yellow Urine Appearance Clear Urine pH 5.5 Ur Specific [place] 1.020 Urine Protein 30 H Urine Glucose (UA) Negative Urine Ketones Negative Urine Blood Negative Urine Nitrate Negative Urine Bilirubin Negative Urine Urobilinogen 0.2 Ur Leukocyte Esterase Negative Urine RBC 0 - 2 Urine WBC 0 - 2 Ur Epithelial Cells 0 - 2 Amorphous Sediment Few Urine Bacteria Small Random Vancomycin Tacrolimus (LC/MS/MS) Hep Bs Antigen Hep Bs Antibody Hep B Core IgM Ab Blood Type Antibody Screen Crossmatch BBK History Checked 03/05/18 03/05/18 03/05/18 05:50 05:50 07:30 WBC 5.6 D RBC 2.81 L Hgb 6.4 L* D Hct 19.8 L* MCV 70.5 L MCH 22.8 L MCHC 32.3 RDW 19.6 H Plt Count 219 Gran % 95.2 H Lymph % (Auto) 3.4 L [place] % (Auto) 1.4 Eos % (Auto) 0.0 L Baso % (Auto) 0.0 Gran # 5.33 Lymph # (Auto) 0.2 L [place] # (Auto) 0.1 Eos # (Auto) 0.0 Baso # (Auto) 0.00 Sodium 136 Potassium 4.5 Chloride 96 L Carbon Dioxide 13 L Anion Gap 31 H BUN 87 H Creatinine 5.2 H Est GFR ( Amer) 14 Est GFR (Non-Af Amer) 11 POC Glucose (mg/dL) Random Glucose 277 H Hemoglobin A1c Lactic Acid Calcium 7.8 L Phosphorus Magnesium 2.1 Total Bilirubin 0.3 Direct Bilirubin 0.3 AST 24 ALT 22 Alkaline Phosphatase 74 Total Protein 5.4 L Albumin 3.3 Globulin 2.1 Albumin/Globulin Ratio 1.6 25-OH Vitamin D Total Procalcitonin PTH Intact Whole [place]c Urine Color Urine Appearance Urine pH Ur Specific [place] Urine Protein Urine Glucose (UA) Urine Ketones Urine Blood Urine Nitrate Urine Bilirubin Urine Urobilinogen Ur Leukocyte Esterase Urine RBC Urine WBC Ur Epithelial Cells Amorphous Sediment Urine Bacteria Random Vancomycin 11.2 L Tacrolimus (LC/MS/MS) Hep Bs Antigen Hep Bs Antibody Hep B Core IgM Ab Blood Type Antibody Screen Crossmatch BBK History Checked 03/05/18 07:35 WBC 6.1 RBC 3.06 L Hgb 7.0 L Hct 21.6 L MCV 70.6 L MCH 22.9 L MCHC 32.4 RDW 19.7 H Plt Count 202 Gran % Lymph % (Auto) [place] % (Auto) Eos % (Auto) Baso % (Auto) Gran # Lymph # (Auto) [place] # (Auto) Eos # (Auto) Baso # (Auto) Sodium Potassium Chloride Carbon Dioxide Anion Gap BUN Creatinine Est GFR ( Amer) Est GFR (Non-Af Amer) POC Glucose (mg/dL) Random Glucose Hemoglobin A1c Lactic Acid Calcium Phosphorus Magnesium Total Bilirubin Direct Bilirubin AST ALT Alkaline Phosphatase Total Protein Albumin Globulin Albumin/Globulin Ratio 25-OH Vitamin D Total Procalcitonin PTH Intact Whole [place]olec Urine Color Urine Appearance Urine pH Ur Specific [place] Urine Protein Urine Glucose (UA) Urine Ketones Urine Blood Urine Nitrate Urine Bilirubin Urine Urobilinogen Ur Leukocyte Esterase Urine RBC Urine WBC Ur Epithelial Cells Amorphous Sediment Urine Bacteria Random Vancomycin Tacrolimus (LC/MS/MS) Hep Bs Antigen Hep Bs Antibody Hep B Core IgM Ab Blood Type Antibody Screen Crossmatch BBK History Checked Assessment & Plan - Assessment and Plan (Free Text) Assessment: 67 y/o M patient seen and evaluated at the bedside for mycotic elongated toe nails and dry feet. Plan: Patient seen and evaluated at the bedside Plan discussed with attending Dr. Aragon Chart, labs and vitals reviewed; Patient is afebrile , No Leukocytosis Toe nails debrided using sterile nail nipper X 10 Patient tolerated the nail debridement well with no complications Thank you for consulting podiatry service. - Date & Time Date: 03/05/18 Time: 09:14 <Greta Aragon - Last Filed: 03/05/18 13:19> Meds - Medications Medications: Current Medications Acetaminophen (Tylenol 325mg Tab) 650 mg PO Q6 PRN PRN Reason: TEMP>=99.5F Acetaminophen (Tylenol 650 Mg Supp) 650 mg RC Q6H PRN PRN Reason: TEMP>=99.5F Acetaminophen (Tylenol 650 Mg Supp) 650 mg RC Q6H PRN PRN Reason: Headache Acetaminophen (Tylenol 325mg Tab) 650 mg PO Q6H PRN PRN Reason: Headache Atorvastatin Calcium (Lipitor) 20 mg PO DIN [facility] Last Admin: 03/04/18 18:30 Dose: 20 mg Benzonatate (Tessalon Perles) 200 mg PO TID [facility] Last Admin: 03/05/18 10:43 Dose: 200 mg Calcitriol (Rocaltrol) 0.5 mcg PO DAILY [facility] Last Admin: 03/05/18 10:44 Dose: 0.5 mcg Calcium Acetate (Phoslo) 667 mg PO WM [facility] Last Admin: 03/05/18 08:55 Dose: 667 mg Calcium Carbonate (Oscal) 500 mg PO BID [facility] Last Admin: 03/05/18 10:51 Dose: 500 mg Cinacalcet (Sensipar) 30 mg PO DAILY [facility] Docusate Sodium (Colace) 100 mg PO TID [facility] Last Admin: 03/05/18 10:40 Dose: 100 mg Ezetimibe (Zetia) 10 mg PO DAILY [facility] Last Admin: 03/05/18 10:41 Dose: 10 mg Ferrous Gluconate (Fergon) 324 mg PO BID [facility] Last Admin: 03/05/18 10:40 Dose: 324 mg Hydrocortisone Sodium Succinate (Solu-Cortef) 50 mg IVP Q6H [facility] Last Admin: 03/05/18 05:14 Dose: 50 mg Doxycycline Hyclate 100 mg/ (Sodium Chloride) 100 mls @ 100 mls/hr IVPB Q12 [facility]; Protocol Last Admin: 03/05/18 10:42 Dose: 100 mls/hr Meropenem 500 mg/ Sodium (Chloride) 50 mls @ 100 mls/hr IVPB Q24H [facility]; Protocol Stop: 03/10/18 22:46 Last Admin: 03/04/18 22:00 Dose: 100 mls/hr Sodium Bicarbonate 150 meq/ (Dextrose) 1,150 mls @ 75 mls/hr IV .[id number] [facility] Insulin Human Lispro (Humalog High) 0 units SC ACHS [facility]; Protocol Last Admin: 03/05/18 08:55 Dose: 7 u Levalbuterol HCl (Xopenex) 0.63 mg IH [id number] [facility] Last Admin: 03/05/18 13:02 Dose: 0.63 mg Midodrine (Proamatine) 5 mg PO TID [facility] Last Admin: 03/05/18 10:52 Dose: 5 mg Ondansetron HCl (Zofran Inj) 4 mg IVP Q4H PRN PRN Reason: Nausea/Vomiting Pantoprazole Sodium (Protonix Ec Tab) 40 mg PO 0600 [facility] Last Admin: 03/05/18 05:14 Dose: 40 mg Polyethylene Glycol (Miralax) 17 gm PO BID [facility] Last Admin: 03/05/18 10:50 Dose: 17 gm Tacrolimus (Prograf Cap) 1 mg PO QPM [facility] Last Admin: 03/04/18 18:33 Dose: 1 mg Tacrolimus (Prograf Cap) 2 mg PO QAM [facility] Last Admin: 03/05/18 10:46 Dose: 2 mg Results - Vital Signs Recent Vital Signs: Last Vital Signs Temp 98.6 F 03/04/18 23:59 Pulse 102 H 03/05/18 06:30 Resp 57 H 03/05/18 06:30 BP 129/63 03/05/18 06:00 Pulse Ox 100 03/05/18 05:30 - Labs Result Diagrams: 03/05/18 07:35 03/05/18 05:50 Labs: Laboratory Results - last 24 hr 03/03/18 03/03/18 03/03/18 10:30 10:30 11:00 WBC RBC Hgb Hct MCV MCH MCHC RDW Plt Count Gran % Lymph % (Auto) [place] % (Auto) Eos % (Auto) Baso % (Auto) Gran # Lymph # (Auto) [place] # (Auto) Eos # (Auto) Baso # (Auto) Sodium Potassium Chloride Carbon Dioxide Anion Gap BUN Creatinine Est GFR ( Amer) Est GFR (Non-Af Amer) POC Glucose (mg/dL) Random Glucose Serum Osmolality Lactic Acid Calcium Phosphorus Magnesium Total Bilirubin Direct Bilirubin AST ALT Alkaline Phosphatase NT-Pro-B Natriuret Pep Total Protein Albumin Globulin Albumin/Globulin Ratio Procalcitonin PTH Intact Whole [place]olec 469 H Urine Color Urine Appearance Urine pH Ur Specific [place] Urine Protein Urine Glucose (UA) Urine Ketones Urine Blood Urine Nitrate Urine Bilirubin Urine Urobilinogen Ur Leukocyte Esterase Urine RBC Urine WBC Ur Epithelial Cells Amorphous Sediment Urine Bacteria Random Vancomycin Tacrolimus (LC/MS/MS) 15.5 Hep Bs Antigen Hep Bs Antibody Hep B Core IgM Ab Blood Type O POSITIVE Antibody Screen Negative Crossmatch See Detail BBK History Checked Patient has bt 03/03/18 03/04/18 03/04/18 20:13 06:30 08:30 WBC RBC Hgb Hct MCV MCH MCHC RDW Plt Count Gran % Lymph % (Auto) [place] % (Auto) Eos % (Auto) Baso % (Auto) Gran # Lymph # (Auto) [place] # (Auto) Eos # (Auto) Baso # (Auto) Sodium Potassium Chloride Carbon Dioxide Anion Gap BUN Creatinine Est GFR ( Amer) Est GFR (Non-Af Amer) POC Glucose (mg/dL) Random Glucose Serum Osmolality Lactic Acid Calcium Phosphorus Magnesium Total Bilirubin Direct Bilirubin AST ALT Alkaline Phosphatase NT-Pro-B Natriuret Pep Total Protein Albumin Globulin Albumin/Globulin Ratio Procalcitonin 150.03 H PTH Intact Whole Molec Urine Color Urine Appearance Urine pH Ur Specific [place] Urine Protein Urine Glucose (UA) Urine Ketones Urine Blood Urine Nitrate Urine Bilirubin Urine Urobilinogen Ur Leukocyte Esterase Urine RBC Urine WBC Ur Epithelial Cells Amorphous Sediment Urine Bacteria Random Vancomycin Tacrolimus (LC/MS/MS) Hep Bs Antigen Negative Hep Bs Antibody Indeterminate Hep B Core IgM Ab Negative Blood Type Antibody Screen Crossmatch BBK History Checked 03/04/18 03/04/18 03/04/18 17:16 21:33 23:41 WBC RBC Hgb Hct MCV MCH MCHC RDW Plt Count Gran % Lymph % (Auto) [place] % (Auto) Eos % (Auto) Baso % (Auto) Gran # Lymph # (Auto) [place] # (Auto) Eos # (Auto) Baso # (Auto) Sodium Potassium Chloride Carbon Dioxide Anion Gap BUN Creatinine Est GFR ( Amer) Est GFR (Non-Af Amer) POC Glucose (mg/dL) 220 H 185 H Random Glucose Serum Osmolality Lactic Acid Calcium Phosphorus Magnesium Total Bilirubin Direct Bilirubin AST ALT Alkaline Phosphatase NT-Pro-B Natriuret Pep Total Protein Albumin Globulin Albumin/Globulin Ratio Procalcitonin PTH Intact Whole Molec Urine Color Yellow Urine Appearance Clear Urine pH 5.5 Ur Specific [place] 1.020 Urine Protein 30 H Urine Glucose (UA) Negative Urine Ketones Negative Urine Blood Negative Urine Nitrate Negative Urine Bilirubin Negative Urine Urobilinogen 0.2 Ur Leukocyte Esterase Negative Urine RBC 0 - 2 Urine WBC 0 - 2 Ur Epithelial Cells 0 - 2 Amorphous Sediment Few Urine Bacteria Small Random Vancomycin Tacrolimus (LC/MS/MS) Hep Bs Antigen Hep Bs Antibody Hep B Core IgM Ab Blood Type Antibody Screen Crossmatch BBK History Checked 03/05/18 03/05/18 03/05/18 05:30 05:30 05:50 WBC RBC Hgb Hct MCV MCH MCHC RDW Plt Count Gran % Lymph % (Auto) [place] % (Auto) Eos % (Auto) Baso % (Auto) Gran # Lymph # (Auto) [place] # (Auto) Eos # (Auto) Baso # (Auto) Sodium Potassium Chloride Carbon Dioxide Anion Gap BUN Creatinine Est GFR ( Amer) Est GFR (Non-Af Amer) POC Glucose (mg/dL) Random Glucose Serum Osmolality Lactic Acid Calcium Phosphorus 5.7 H Magnesium Total Bilirubin Direct Bilirubin AST ALT Alkaline Phosphatase NT-Pro-B Natriuret Pep 57740 H Total Protein Albumin Globulin Albumin/Globulin Ratio Procalcitonin 64.33 H PTH Intact Whole Molec Urine Color Urine Appearance Urine pH Ur Specific [place] Urine Protein Urine Glucose (UA) Urine Ketones Urine Blood Urine Nitrate Urine Bilirubin Urine Urobilinogen Ur Leukocyte Esterase Urine RBC Urine WBC Ur Epithelial Cells Amorphous Sediment Urine Bacteria Random Vancomycin Tacrolimus (LC/MS/MS) Hep Bs Antigen Hep Bs Antibody Hep B Core IgM Ab Blood Type Antibody Screen Crossmatch BBK History Checked 03/05/18 03/05/18 03/05/18 05:50 05:50 07:30 WBC 5.6 D RBC 2.81 L Hgb 6.4 L* D Hct 19.8 L* MCV 70.5 L MCH 22.8 L MCHC 32.3 RDW 19.6 H Plt Count 219 Gran % 95.2 H Lymph % (Auto) 3.4 L [place] % (Auto) 1.4 Eos % (Auto) 0.0 L Baso % (Auto) 0.0 Gran # 5.33 Lymph # (Auto) 0.2 L [place] # (Auto) 0.1 Eos # (Auto) 0.0 Baso # (Auto) 0.00 Sodium 136 Potassium 4.5 Chloride 96 L Carbon Dioxide 13 L Anion Gap 31 H BUN 87 H Creatinine 5.2 H Est GFR ( Amer) 14 Est GFR (Non-Af Amer) 11 POC Glucose (mg/dL) Random Glucose 277 H Serum Osmolality Lactic Acid Calcium 7.8 L Phosphorus Magnesium 2.1 Total Bilirubin 0.3 Direct Bilirubin 0.3 AST 24 ALT 22 Alkaline Phosphatase 74 NT-Pro-B Natriuret Pep Total Protein 5.4 L Albumin 3.3 Globulin 2.1 Albumin/Globulin Ratio 1.6 Procalcitonin PTH Intact Whole Molec Urine Color Urine Appearance Urine pH Ur Specific [place] Urine Protein Urine Glucose (UA) Urine Ketones Urine Blood Urine Nitrate Urine Bilirubin Urine Urobilinogen Ur Leukocyte Esterase Urine RBC Urine WBC Ur Epithelial Cells Amorphous Sediment Urine Bacteria Random Vancomycin 11.2 L Tacrolimus (LC/MS/MS) Hep Bs Antigen Hep Bs Antibody Hep B Core IgM Ab Blood Type Antibody Screen Crossmatch BBK History Checked 03/05/18 03/05/18 03/05/18 07:30 07:35 11:00 WBC 6.1 RBC 3.06 L Hgb 7.0 L Hct 21.6 L MCV 70.6 L MCH 22.9 L MCHC 32.4 RDW 19.7 H Plt Count 202 Gran % Lymph % (Auto) [place] % (Auto) Eos % (Auto) Baso % (Auto) Gran # Lymph # (Auto) [place] # (Auto) Eos # (Auto) Baso # (Auto) Sodium Potassium Chloride Carbon Dioxide Anion Gap BUN Creatinine Est GFR ( Amer) Est GFR (Non-Af Amer) POC Glucose (mg/dL) Random Glucose Serum Osmolality 327 H Lactic Acid 0.9 Calcium Phosphorus Magnesium Total Bilirubin Direct Bilirubin AST ALT Alkaline Phosphatase NT-Pro-B Natriuret Pep Total Protein Albumin Globulin Albumin/Globulin Ratio Procalcitonin PTH Intact Whole Molec Urine Color Urine Appearance Urine pH Ur Specific [place] Urine Protein Urine Glucose (UA) Urine Ketones Urine Blood Urine Nitrate Urine Bilirubin Urine Urobilinogen Ur Leukocyte Esterase Urine RBC Urine WBC Ur Epithelial Cells Amorphous Sediment Urine Bacteria Random Vancomycin Tacrolimus (LC/MS/MS) Hep Bs Antigen Hep Bs Antibody Hep B Core IgM Ab Blood Type Antibody Screen Crossmatch BBK History Checked Attending/Attestation - Attestation I have personally seen and examined this patient.: Yes I have fully participated in the care of the patient.: Yes I have reviewed all pertinent clinical information: Yes
--- NOTE | 2018-03-05 09:30 | CP.PCM.PN ---
<Rafael Faye R - Last Filed: 03/05/18 09:27> Subjective - Date & Time of Evaluation Date of Evaluation: 03/05/18 Time of Evaluation: : - Subjective Subjective: PGY-2 medicine progress note for Dr Knox No acute events noted overnight. Patient was tachypnic but speaking in complete sentences and appeared relatively comfortable. He stated he overall slept well last night. He was about to eat breakfast but was made NPO before he could start his breakfast. Otherwise did not offer any other complaints. Objective - Vital Signs/Intake and Output Vital Signs (last 24 hours): Temp Pulse Resp BP Pulse Ox 98.6 F 102 H 57 H 129/63 100 03/04/18 23:59 03/05/18 06:30 03/05/18 06:30 03/05/18 06:00 03/05/18 05:30 Intake and Output: 03/05/18 03/05/18 06:59 18:59 Intake Total 400 Output Total 500 Balance -100 - Medications Medications: Current Medications Acetaminophen (Tylenol 325mg Tab) 650 mg PO Q6 PRN PRN Reason: TEMP>=99.5F Acetaminophen (Tylenol 650 Mg Supp) 650 mg RC Q6H PRN PRN Reason: TEMP>=99.5F Acetaminophen (Tylenol 650 Mg Supp) 650 mg RC Q6H PRN PRN Reason: Headache Acetaminophen (Tylenol 325mg Tab) 650 mg PO Q6H PRN PRN Reason: Headache Atorvastatin Calcium (Lipitor) 20 mg PO DIN [facility] Last Admin: 03/04/18 18:30 Dose: 20 mg Benzonatate (Tessalon Perles) 200 mg PO TID [facility] Last Admin: 03/04/18 18:41 Dose: 200 mg Calcitriol (Rocaltrol) 0.5 mcg PO DAILY [facility] Last Admin: 03/04/18 14:10 Dose: 0.5 mcg Calcium Acetate (Phoslo) 667 mg PO WM [facility] Last Admin: 03/05/18 08:55 Dose: 667 mg Calcium Carbonate (Oscal) 500 mg PO BID [facility] Last Admin: 03/04/18 18:31 Dose: 500 mg Cinacalcet (Sensipar) 30 mg PO DAILY [facility] Docusate Sodium (Colace) 100 mg PO TID [facility] Last Admin: 03/04/18 18:27 Dose: 100 mg Ezetimibe (Zetia) 10 mg PO DAILY [facility] Last Admin: 03/04/18 14:04 Dose: 10 mg Ferrous Gluconate (Fergon) 324 mg PO BID [facility] Last Admin: 03/04/18 18:28 Dose: 324 mg Hydrocortisone Sodium Succinate (Solu-Cortef) 50 mg IVP Q6H [facility] Last Admin: 03/05/18 05:14 Dose: 50 mg Doxycycline Hyclate 100 mg/ (Sodium Chloride) 100 mls @ 100 mls/hr IVPB Q12 [facility]; Protocol Last Admin: 03/04/18 21:03 Dose: 100 mls/hr Meropenem 500 mg/ Sodium (Chloride) 50 mls @ 100 mls/hr IVPB Q24H [facility]; Protocol Stop: 03/10/18 22:46 Last Admin: 03/04/18 22:00 Dose: 100 mls/hr Insulin Human Lispro (Humalog High) 0 units SC ACHS [facility]; Protocol Last Admin: 03/05/18 08:55 Dose: 7 u Levalbuterol HCl (Xopenex) 0.63 mg IH [id number] [facility] Last Admin: 03/05/18 07:00 Dose: 0.63 mg Midodrine (Proamatine) 5 mg PO TID [facility] Last Admin: 03/04/18 18:32 Dose: 5 mg Ondansetron HCl (Zofran Inj) 4 mg IVP Q4H PRN PRN Reason: Nausea/Vomiting Pantoprazole Sodium (Protonix Ec Tab) 40 mg PO 0600 [facility] Last Admin: 03/05/18 05:14 Dose: 40 mg Polyethylene Glycol (Miralax) 17 gm PO BID [facility] Last Admin: 03/04/18 14:33 Dose: Not Given Tacrolimus (Prograf Cap) 1 mg PO QPM [facility] Last Admin: 03/04/18 18:33 Dose: 1 mg Tacrolimus (Prograf Cap) 2 mg PO QAM [facility] Last Admin: 03/04/18 14:19 Dose: 2 mg - Labs Labs: 03/05/18 07:35 03/05/18 05:50 PT 12.8 SECONDS (9.4-12.5) H 03/03/18 10:20 INR 1.11 03/03/18 10:20 APTT 27.9 Seconds (25.1-36.5) 03/03/18 10:20 - Additional Findings Additional findings: - Constitutional Appears: Cachectic - Head Exam Head Exam: ATRAUMATIC, NORMAL INSPECTION - Eye Exam Eye Exam: EOMI, Normal appearance, PERRL. absent: Scleral icterus - ENT Exam ENT Exam: Mucous Membranes Moist - Respiratory Exam Respiratory Exam: Chest Wall Tenderness, Clear to Auscultation Bilateral. absent: Rales, Rhonchi, Wheezes - Cardiovascular Exam Cardiovascular Exam: REGULAR RHYTHM, +S1, +S2, Systolic Murmur. absent: Tachycardia - GI/Abdominal Exam GI & Abdominal Exam: Normal Bowel Sounds, Soft. absent: Distended, Firm, Guarding, Tenderness - Extremities Exam Extremities exam: Positive for: full ROM, normal inspection. Negative for: calf tenderness - Neurological Exam Neurological exam: Alert, CN II-XII Intact, Oriented x3, Reflexes Normal - Skin Skin Exam: Normal Color, Warm, hyperpigmentosis on dorsal surface of feet bilaterally Assessment and Plan - Assessment and Plan (Free Text) Plan: Mr Goodwin is a 67 year old male with a PMHx of polycystic kidney disease s/p kidney transplant in 2006, insulin dependent diabetes, aortic valve replacement, anemia, hyperlipidemia, hypertension, secondary hyperparathyroidism, chronic kidney disease, pulmonary hypertension, diastolic congestive heart failure, cachexia, and abdominal aortic aneurysm, who presents for fatigue and weakness for the past 7 days: MYRNA on CKD Chronic Kidney Disease Stage IV Failing Transplanted Kidney -Failing transplanted kidney and superimposed ATN in setting of severe sepsis -Nephrology consult, Dr Wheeler * Patient dialyzed 03/04 - 2hr HD session using low blood flow to prevent dialysis dysequilibrium, high bicarb dialysate, keeping positive net fluid balance; Plan to do the same 03/05 * Plan to transfuse 2u pRBCs during dialysis for acute drop in Hgb -Renal Ultrasound: * Although the hydronephrosis within the transplant kidney is a new finding compared to the prior ultrasound performed 02/16/2014 it was present with similar degree on the prior CT scan 02/27/2017 compared to the current CT scan. Therefore I do not believe this represents acute obstructive uropathy. 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 Stable polycystic kidney disease. Severe Sepsis Stable Infiltrate Right Upper Lobe -Suspecting pneumonia at this point -CT chest/abd/pelvis w/o contrast: * Stable infiltrate right upper lobe. -Procalcitonin elevated 150 -Infectious Disease consult, Dr Squires -Blood Cx 03/03 negative to date -F/U Urine Cx -CPT, incentive spirometer q2h, nasal cannula 2L prn -Benzonatate 200mg po tid -Doxycycline 100mg ivpb q12h -Meropenem 500mg ivpb q24h (renal dose) -Levalbuterol 0.63mg IH Q6H Symptomatic Anemia -Hgb 8.8 on admission * Hgb dropped to 6.4 * Transfuse 2u pRBCs during dialysis 03/05 -GI bleed vs anemia of CKD -Consult GI, Dr Cordova, for questionable GI bleed * Recommending Colonoscopy as outpatient after AAA addressed -Ferrous Gluconate 324mg po bid (home med) -F/U FOBT Hypotension -2/2 to severe sepsis -Monitor in ICU -1/2NS with sodium bicarb 75meq @ 75mls/hr -Midodrine 5mg po tid -Hold all home antihypertensives Status Post Renal Transplant -Heme/Onc consult, Dr Leigh -Tacrolimus level 15.5 -Tacrolimus 2mg po Qam, 1mg po Qpm -Holding MMF in the setting of severe sepsis, will restart once improved Abdominal Aortic Aneurysm -Stable but concern for spontaneous rupture -CT chest/abd/pelvis w/o contrast: * Stable infrarenal abdominal aortic aneurysm. Mean axial diameter 8.3 cm. Cephalocaudal dimension 13.1 cm. -Patient was to have repair this past year which was cancelled due to lab abnormalities - it seems patient never followed-up -GI recommending repair prior to colonoscopy Chronic Kidney Disease - Mineral and Bone Disorder -PTH intact 469, Phosphorus 5.4 on admission, Corrected Ca 7.1 on admission -Calcitriol 0.5mcg po qd -Calcium carbonate 1000mg po q6h -Phoslo 667mg po wm -Cinacalcet 30mg po qd Acute on Chronic CHF -ProBNP -Echo 07/2017 showed LVH, grade 1 abnormal relaxation patter, normal EF -Will not give diuretics 2/2 to hypotension -Is/Os, maintain head of bed 30 degrees, daily weights Small Bilateral Pleural Effusions -CT chest/abd/pelvis w/o contrast: * New small bilateral pleural effusions with associated compressive atelectasis. -Possibly 2/2 acute on chronic CHF Metabolic Acidosis -2/2 uremia -Ph 7.27 on vbg on admission -1/2NS with sodium bicarb 75meq @ 75mls/hr Elevated Lactate on VBG, Resolved -F/U Urine Cx -Blood Cx 03/03 negative to date IDDM2 -HgbA1c 10.4 -RISS high dose SC AC; high dose necessary due to being on steroids -Accuchecks ACHS -Podiatry consult, Dr Aragon, for diabetic foot care HLD -Atorvastatin 20mg po din -Ezetimibe 10mg po qd (home med) Mycotic Elongated Toenails -Podiatry consult, Dr Aragon * Toenails debrided use sterile nail nipper Prophylaxis -Protonix 40mg po qd -Consistent carb diet -SCDs -OT, PT, ST <LisetteYosim U - Last Filed: 03/11/18 22:13> Objective - Vital Signs/Intake and Output Vital Signs (last 24 hours): Temp Pulse Resp BP Pulse Ox 98.9 F 81 32 H 120/72 92 L 03/10/18 08:00 03/10/18 16:00 03/10/18 16:00 03/10/18 16:00 03/10/18 16:00 - Labs Labs: 03/10/18 06:50 03/10/18 06:50 PT 12.8 SECONDS (9.4-12.5) H 03/03/18 10:20 INR 1.11 03/03/18 10:20 APTT 27.9 Seconds (25.1-36.5) 03/03/18 10:20 Attending/Attestation - Attestation I have personally seen and examined this patient.: Yes I have fully participated in the care of the patient.: Yes I have reviewed all pertinent clinical information, including history, physical exam and plan: Yes Notes (Text): Please see/read my dictated notes.
[2018-03-05] MEDS: POLYETHYLENE GLYCOL 3350 17 GM/Dose PACKET PO SCH ×2 (10:50→20:07)
--- NOTE | 2018-03-05 11:16 | CP.PCM.CON ---
History of Present Illness - History of Present Illness History of Present Illness: 67 year old male with a history of of polycystic kidney disease complicated by ESRD s/p renal transplant, CKD, AAA awaiting repair, chronic anemia on intermittent iron and Procrit, presenting with worsening fatigue, found to be septic from pneumonia, MYRNA initiated in HD, with progressive anemia. The patient is well known to me and has been on intermittent iron and Procrit supplementation to maintain his hgb. He did have a drop in his hgb with fatigue about 2 weeks ago but patient refused hospitalization. He was set up for outp atient transfusion at [facility] and received 2U. He notes to improvement in his symptoms but again began to feel fatigued about 1 week ago. He notes his son became concerned and brought him to the hospital. He is currently receiving antibiotics and hemodialysis and notes to feeling much better. He does admit to black stools intermittent but notes this may be from his iron supplementation. He is awaiting endoscopy once he completes his AAA repair. Past medical history: polycystic kidney disease, renal transplant, CKD, AAA, anemia Past surgical history: Renal transplant, Aortic valve replacement Family history: Denies hematologic and oncologic problems Social history: Denies tobacco, alcohol, and illicit drug use. Allergies: NKA Review of systems: All remaining review of systems including HEENT, cardiovascular, respiratory, gastrointestinal, genitourinary, musculoskeletal, dermatologic, neurologic, and psychiatric are negative unless mentioned in the HPI. Past Patient History - Infectious Disease Hx of Infectious Diseases: None - Past Medical History & Family History Past Medical History?: Yes - Past Social History Smoking Status: Former Smoker - CARDIAC Hx Cardiac Disorders: Yes (CAD) Hx Hypertension: Yes Hx Peripheral Edema: Yes (+1 pitting ble) Other/Comment: Aortic Valve Replacement at [facility], aortic abdominal aneurysm unable to do sx at present time - PULMONARY Hx Respiratory Disorders: No - NEUROLOGICAL Hx Neurological Disorder: No - HEENT Hx HEENT Problems: Yes (wears glasses) - RENAL Hx Chronic Kidney Disease: Yes (stage iv) Hx Dialysis: Yes (left arm fistula) Other/Comment: Kidney transplant at [facility], last dialysis oct 08 2006, hypertensive chronic kidney disease - ENDOCRINE/METABOLIC Hx Endocrine Disorders: Yes Hx Diabetes Mellitus Type 2: Yes - HEMATOLOGICAL/ONCOLOGICAL Hx Blood Disorders: Yes (blood transfusions most recent 3 wks ago) Hx Anemia: Yes (iron deficiency) Other/Comment: dx with anemia 2 yrs ago unable to get a colonoscopy due to aaa, may try new procedure in [place] as per pt, receives iron infusions from pt's , dr scales in [place] - INTEGUMENTARY Hx Dermatological Problems: Yes Other/Comment: multiple skin discolorations ble, pt refusing for me to removd his anti embolism stockings/shoes and socks to assess feet, pt stated "I'm embarrassed. I plan to see foot dr within a few weeks but I have had other health problems." pt stated. - MUSCULOSKELETAL/RHEUMATOLOGICAL Hx Musculoskeletal Disorders: Yes Hx Unsteady Gait: Yes - GASTROINTESTINAL Hx Gastrointestinal Disorders: Yes (poor appetite weight loss) Other/Comment: AAA, chronic hiccups - GENITOURINARY/GYNECOLOGICAL Hx Genitourinary Disorders: Yes Other/Comment: bilateral inguinal hernias (repaired) - PSYCHIATRIC Hx Psychophysiologic Disorder: No - SURGICAL HISTORY Hx Surgeries: Yes Hx Kidney Transplant: Yes (last hd oct 08 2006) Other/Comment: Aortic valve replacement, left forearm fistula not is use since october 08, 2006 - ANESTHESIA Hx Anesthesia: Yes Hx Anesthesia Reactions: No Hx Malignant Hyperthermia: No Meds Allergies/Adverse Reactions: Allergies Allergy/AdvReac Type Severity Reaction Status Date / Time No Known Allergies Allergy Verified 03/03/18 09:25 - Medications Medications: Current Medications Acetaminophen (Tylenol 325mg Tab) 650 mg PO Q6 PRN PRN Reason: TEMP>=99.5F Acetaminophen (Tylenol 650 Mg Supp) 650 mg RC Q6H PRN PRN Reason: TEMP>=99.5F Acetaminophen (Tylenol 650 Mg Supp) 650 mg RC Q6H PRN PRN Reason: Headache Acetaminophen (Tylenol 325mg Tab) 650 mg PO Q6H PRN PRN Reason: Headache Atorvastatin Calcium (Lipitor) 20 mg PO DIN [facility] Last Admin: 03/04/18 18:30 Dose: 20 mg Benzonatate (Tessalon Perles) 200 mg PO TID [facility] Last Admin: 03/05/18 10:43 Dose: 200 mg Calcitriol (Rocaltrol) 0.5 mcg PO DAILY [facility] Last Admin: 03/05/18 10:44 Dose: 0.5 mcg Calcium Acetate (Phoslo) 667 mg PO WM [facility] Last Admin: 03/05/18 08:55 Dose: 667 mg Calcium Carbonate (Oscal) 500 mg PO BID [facility] Last Admin: 03/05/18 10:51 Dose: 500 mg Cinacalcet (Sensipar) 30 mg PO DAILY [facility] Docusate Sodium (Colace) 100 mg PO TID [facility] Last Admin: 03/05/18 10:40 Dose: 100 mg Ezetimibe (Zetia) 10 mg PO DAILY [facility] Last Admin: 03/05/18 10:41 Dose: 10 mg Ferrous Gluconate (Fergon) 324 mg PO BID [facility] Last Admin: 03/05/18 10:40 Dose: 324 mg Hydrocortisone Sodium Succinate (Solu-Cortef) 50 mg IVP Q6H [facility] Last Admin: 03/05/18 05:14 Dose: 50 mg Doxycycline Hyclate 100 mg/ (Sodium Chloride) 100 mls @ 100 mls/hr IVPB Q12 [facility]; Protocol Last Admin: 03/05/18 10:42 Dose: 100 mls/hr Meropenem 500 mg/ Sodium (Chloride) 50 mls @ 100 mls/hr IVPB Q24H [facility]; Protocol Stop: 03/10/18 22:46 Last Admin: 03/04/18 22:00 Dose: 100 mls/hr Sodium Bicarbonate 75 meq/ (Sodium Chloride) 1,075 mls @ 75 mls/hr IV .[id number] [facility] Insulin Human Lispro (Humalog High) 0 units SC ACHS [facility]; Protocol Last Admin: 03/05/18 08:55 Dose: 7 u Levalbuterol HCl (Xopenex) 0.63 mg IH [id number] [facility] Last Admin: 03/05/18 07:00 Dose: 0.63 mg Midodrine (Proamatine) 5 mg PO TID [facility] Last Admin: 03/05/18 10:52 Dose: 5 mg Ondansetron HCl (Zofran Inj) 4 mg IVP Q4H PRN PRN Reason: Nausea/Vomiting Pantoprazole Sodium (Protonix Ec Tab) 40 mg PO 0600 [facility] Last Admin: 03/05/18 05:14 Dose: 40 mg Polyethylene Glycol (Miralax) 17 gm PO BID [facility] Last Admin: 03/05/18 10:50 Dose: 17 gm Tacrolimus (Prograf Cap) 1 mg PO QPM [facility] Last Admin: 03/04/18 18:33 Dose: 1 mg Tacrolimus (Prograf Cap) 2 mg PO QAM [facility] Last Admin: 03/05/18 10:46 Dose: 2 mg Physical Exam - Head Exam Head Exam: ATRAUMATIC - Eye Exam Eye Exam: Normal appearance - ENT Exam ENT Exam: Mucous Membranes Dry - Respiratory Exam Respiratory Exam: NORMAL BREATHING PATTERN - Cardiovascular Exam Cardiovascular Exam: +S1, +S2 - GI/Abdominal Exam GI & Abdominal Exam: Normal Bowel Sounds - Extremities Exam Extremities exam: Positive for: normal inspection - Neurological Exam Neurological exam: Oriented x3 - Psychiatric Exam Psychiatric exam: Normal Affect, Normal Mood - Skin Skin Exam: Warm Results - Vital Signs Recent Vital Signs: Last Vital Signs Temp 98.6 F 03/04/18 23:59 Pulse 102 H 03/05/18 06:30 Resp 57 H 03/05/18 06:30 BP 129/63 03/05/18 06:00 Pulse Ox 100 03/05/18 05:30 - Labs Result Diagrams: 03/05/18 07:35 03/05/18 05:50 Labs: Laboratory Results - last 24 hr 03/03/18 03/03/18 03/03/18 10:30 10:30 11:00 WBC RBC Hgb Hct MCV MCH MCHC RDW Plt Count Gran % Lymph % (Auto) [place] % (Auto) Eos % (Auto) Baso % (Auto) Gran # Lymph # (Auto) [place] # (Auto) Eos # (Auto) Baso # (Auto) Sodium Potassium Chloride Carbon Dioxide Anion Gap BUN Creatinine Est GFR ( Amer) Est GFR (Non-Af Amer) POC Glucose (mg/dL) Random Glucose Hemoglobin A1c Serum Osmolality Lactic Acid Calcium Phosphorus Magnesium Total Bilirubin Direct Bilirubin AST ALT Alkaline Phosphatase NT-Pro-B Natriuret Pep Total Protein Albumin Globulin Albumin/Globulin Ratio 25-OH Vitamin D Total Procalcitonin PTH Intact Whole Molec 469 H Urine Color Urine Appearance Urine pH Ur Specific [place] Urine Protein Urine Glucose (UA) Urine Ketones Urine Blood Urine Nitrate Urine Bilirubin Urine Urobilinogen Ur Leukocyte Esterase Urine RBC Urine WBC Ur Epithelial Cells Amorphous Sediment Urine Bacteria Random Vancomycin Tacrolimus (LC/MS/MS) 15.5 Hep Bs Antigen Hep Bs Antibody Hep B Core IgM Ab Blood Type O POSITIVE Antibody Screen Negative Crossmatch See Detail BBK History Checked Patient has bt 03/03/18 03/04/18 03/04/18 20:13 06:30 06:40 WBC RBC Hgb Hct MCV MCH MCHC RDW Plt Count Gran % Lymph % (Auto) [place] % (Auto) Eos % (Auto) Baso % (Auto) Gran # Lymph # (Auto) [place] # (Auto) Eos # (Auto) Baso # (Auto) Sodium Potassium Chloride Carbon Dioxide Anion Gap BUN Creatinine Est GFR ( Amer) Est GFR (Non-Af Amer) POC Glucose (mg/dL) Random Glucose Hemoglobin A1c 10.4 H D Serum Osmolality Lactic Acid Calcium Phosphorus Magnesium Total Bilirubin Direct Bilirubin AST ALT Alkaline Phosphatase NT-Pro-B Natriuret Pep Total Protein Albumin Globulin Albumin/Globulin Ratio 25-OH Vitamin D Total Procalcitonin 150.03 H PTH Intact Whole Molec Urine Color Urine Appearance Urine pH Ur Specific [place] Urine Protein Urine Glucose (UA) Urine Ketones Urine Blood Urine Nitrate Urine Bilirubin Urine Urobilinogen Ur Leukocyte Esterase Urine RBC Urine WBC Ur Epithelial Cells Amorphous Sediment Urine Bacteria Random Vancomycin Tacrolimus (LC/MS/MS) Hep Bs Antigen Negative Hep Bs Antibody Hep B Core IgM Ab Negative Blood Type Antibody Screen Crossmatch BBK History Checked 03/04/18 03/04/18 03/04/18 06:40 08:30 12:32 WBC RBC Hgb Hct MCV MCH MCHC RDW Plt Count Gran % Lymph % (Auto) [place] % (Auto) Eos % (Auto) Baso % (Auto) Gran # Lymph # (Auto) [place] # (Auto) Eos # (Auto) Baso # (Auto) Sodium Potassium Chloride Carbon Dioxide Anion Gap BUN Creatinine Est GFR ( Amer) Est GFR (Non-Af Amer) POC Glucose (mg/dL) 159 H Random Glucose Hemoglobin A1c Serum Osmolality Lactic Acid Calcium Phosphorus Magnesium Total Bilirubin Direct Bilirubin AST ALT Alkaline Phosphatase NT-Pro-B Natriuret Pep Total Protein Albumin Globulin Albumin/Globulin Ratio 25-OH Vitamin D Total 35.6 Procalcitonin PTH Intact Whole Molec Urine Color Urine Appearance Urine pH Ur Specific [place] Urine Protein Urine Glucose (UA) Urine Ketones Urine Blood Urine Nitrate Urine Bilirubin Urine Urobilinogen Ur Leukocyte Esterase Urine RBC Urine WBC Ur Epithelial Cells Amorphous Sediment Urine Bacteria Random Vancomycin Tacrolimus (LC/MS/MS) Hep Bs Antigen Hep Bs Antibody Indeterminate Hep B Core IgM Ab Blood Type Antibody Screen Crossmatch BBK History Checked 03/04/18 03/04/18 03/04/18 12:45 17:16 21:33 WBC RBC Hgb Hct MCV MCH MCHC RDW Plt Count Gran % Lymph % (Auto) [place] % (Auto) Eos % (Auto) Baso % (Auto) Gran # Lymph # (Auto) [place] # (Auto) Eos # (Auto) Baso # (Auto) Sodium Potassium Chloride Carbon Dioxide Anion Gap BUN Creatinine Est GFR ( Amer) Est GFR (Non-Af Amer) POC Glucose (mg/dL) 220 H 185 H Random Glucose Hemoglobin A1c Serum Osmolality Lactic Acid 0.7 Calcium Phosphorus Magnesium Total Bilirubin Direct Bilirubin AST ALT Alkaline Phosphatase NT-Pro-B Natriuret Pep Total Protein Albumin Globulin Albumin/Globulin Ratio 25-OH Vitamin D Total Procalcitonin PTH Intact Whole Molec Urine Color Urine Appearance Urine pH Ur Specific [place] Urine Protein Urine Glucose (UA) Urine Ketones Urine Blood Urine Nitrate Urine Bilirubin Urine Urobilinogen Ur Leukocyte Esterase Urine RBC Urine WBC Ur Epithelial Cells Amorphous Sediment Urine Bacteria Random Vancomycin Tacrolimus (LC/MS/MS) Hep Bs Antigen Hep Bs Antibody Hep B Core IgM Ab Blood Type Antibody Screen Crossmatch BBK History Checked 03/04/18 03/05/18 03/05/18 23:41 05:30 05:30 WBC RBC Hgb Hct MCV MCH MCHC RDW Plt Count Gran % Lymph % (Auto) [place] % (Auto) Eos % (Auto) Baso % (Auto) Gran # Lymph # (Auto) [place] # (Auto) Eos # (Auto) Baso # (Auto) Sodium Potassium Chloride Carbon Dioxide Anion Gap BUN Creatinine Est GFR ( Amer) Est GFR (Non-Af Amer) POC Glucose (mg/dL) Random Glucose Hemoglobin A1c Serum Osmolality Lactic Acid Calcium Phosphorus 5.7 H Magnesium Total Bilirubin Direct Bilirubin AST ALT Alkaline Phosphatase NT-Pro-B Natriuret Pep 99802 H Total Protein Albumin Globulin Albumin/Globulin Ratio 25-OH Vitamin D Total Procalcitonin PTH Intact Whole Molec Urine Color Yellow Urine Appearance Clear Urine pH 5.5 Ur Specific [place] 1.020 Urine Protein 30 H Urine Glucose (UA) Negative Urine Ketones Negative Urine Blood Negative Urine Nitrate Negative Urine Bilirubin Negative Urine Urobilinogen 0.2 Ur Leukocyte Esterase Negative Urine RBC 0 - 2 Urine WBC 0 - 2 Ur Epithelial Cells 0 - 2 Amorphous Sediment Few Urine Bacteria Small Random Vancomycin Tacrolimus (LC/MS/MS) Hep Bs Antigen Hep Bs Antibody Hep B Core IgM Ab Blood Type Antibody Screen Crossmatch BBK History Checked 03/05/18 03/05/18 03/05/18 05:50 05:50 07:30 WBC 5.6 D RBC 2.81 L Hgb 6.4 L* D Hct 19.8 L* MCV 70.5 L MCH 22.8 L MCHC 32.3 RDW 19.6 H Plt Count 219 Gran % 95.2 H Lymph % (Auto) 3.4 L [place] % (Auto) 1.4 Eos % (Auto) 0.0 L Baso % (Auto) 0.0 Gran # 5.33 Lymph # (Auto) 0.2 L [place] # (Auto) 0.1 Eos # (Auto) 0.0 Baso # (Auto) 0.00 Sodium 136 Potassium 4.5 Chloride 96 L Carbon Dioxide 13 L Anion Gap 31 H BUN 87 H Creatinine 5.2 H Est GFR ( Amer) 14 Est GFR (Non-Af Amer) 11 POC Glucose (mg/dL) Random Glucose 277 H Hemoglobin A1c Serum Osmolality Lactic Acid Calcium 7.8 L Phosphorus Magnesium 2.1 Total Bilirubin 0.3 Direct Bilirubin 0.3 AST 24 ALT 22 Alkaline Phosphatase 74 NT-Pro-B Natriuret Pep Total Protein 5.4 L Albumin 3.3 Globulin 2.1 Albumin/Globulin Ratio 1.6 25-OH Vitamin D Total Procalcitonin PTH Intact Whole Molec Urine Color Urine Appearance Urine pH Ur Specific [place] Urine Protein Urine Glucose (UA) Urine Ketones Urine Blood Urine Nitrate Urine Bilirubin Urine Urobilinogen Ur Leukocyte Esterase Urine RBC Urine WBC Ur Epithelial Cells Amorphous Sediment Urine Bacteria Random Vancomycin 11.2 L Tacrolimus (LC/MS/MS) Hep Bs Antigen Hep Bs Antibody Hep B Core IgM Ab Blood Type Antibody Screen Crossmatch BBK History Checked 03/05/18 03/05/18 07:30 07:35 WBC 6.1 RBC 3.06 L Hgb 7.0 L Hct 21.6 L MCV 70.6 L MCH 22.9 L MCHC 32.4 RDW 19.7 H Plt Count 202 Gran % Lymph % (Auto) [place] % (Auto) Eos % (Auto) Baso % (Auto) Gran # Lymph # (Auto) [place] # (Auto) Eos # (Auto) Baso # (Auto) Sodium Potassium Chloride Carbon Dioxide Anion Gap BUN Creatinine Est GFR ( Amer) Est GFR (Non-Af Amer) POC Glucose (mg/dL) Random Glucose Hemoglobin A1c Serum Osmolality 327 H Lactic Acid Calcium Phosphorus Magnesium Total Bilirubin Direct Bilirubin AST ALT Alkaline Phosphatase NT-Pro-B Natriuret Pep Total Protein Albumin Globulin Albumin/Globulin Ratio 25-OH Vitamin D Total Procalcitonin PTH Intact Whole Molec Urine Color Urine Appearance Urine pH Ur Specific [place] Urine Protein Urine Glucose (UA) Urine Ketones Urine Blood Urine Nitrate Urine Bilirubin Urine Urobilinogen Ur Leukocyte Esterase Urine RBC Urine WBC Ur Epithelial Cells Amorphous Sediment Urine Bacteria Random Vancomycin Tacrolimus (LC/MS/MS) Hep Bs Antigen Hep Bs Antibody Hep B Core IgM Ab Blood Type Antibody Screen Crossmatch BBK History Checked Assessment & Plan (1) Anemia Assessment and Plan: iron deficiency from likely chronic GI blood loss; GI evaluation when clinically stable anemia of CKD on Procrit on PO iron; will hold off on IV supplementation given sepsis element of bone marrow supression from immunosuppression transfusion support PRN Thank you for this interesting consult. Status: Acute
[2018-03-05] MEDS ORDERED: Sodium Bicarbonate 8.4% 150 MEQ in Dextrose 5% In Water 1,000 ML IV SCH ×2 (12:30)
--- NOTE | 2018-03-05 12:50 | CP.PCM.PN ---
<Dave Sifuentes - Last Filed: 03/05/18 12:52> Subjective - Date & Time of Evaluation Date of Evaluation: 03/05/18 Time of Evaluation: 12:47 - Subjective Subjective: Patient had HD yesterday and will again today. Hb dropped from 8.5 to 6.4. I discussed with nursing and patient. There is no signs of bleeding from the GI tract. Nurse reports patient gets blood transfusions every few weeks. Objective - Vital Signs/Intake and Output Vital Signs (last 24 hours): Temp Pulse Resp BP Pulse Ox 98.6 F 102 H 57 H 129/63 100 03/04/18 23:59 03/05/18 06:30 03/05/18 06:30 03/05/18 06:00 03/05/18 05:30 Intake and Output: 03/05/18 03/05/18 06:59 18:59 Intake Total 400 Output Total 500 Balance -100 - Medications Medications: Current Medications Acetaminophen (Tylenol 325mg Tab) 650 mg PO Q6 PRN PRN Reason: TEMP>=99.5F Acetaminophen (Tylenol 650 Mg Supp) 650 mg RC Q6H PRN PRN Reason: TEMP>=99.5F Acetaminophen (Tylenol 650 Mg Supp) 650 mg RC Q6H PRN PRN Reason: Headache Acetaminophen (Tylenol 325mg Tab) 650 mg PO Q6H PRN PRN Reason: Headache Atorvastatin Calcium (Lipitor) 20 mg PO DIN [facility] Last Admin: 03/04/18 18:30 Dose: 20 mg Benzonatate (Tessalon Perles) 200 mg PO TID [facility] Last Admin: 03/05/18 10:43 Dose: 200 mg Calcitriol (Rocaltrol) 0.5 mcg PO DAILY [facility] Last Admin: 03/05/18 10:44 Dose: 0.5 mcg Calcium Acetate (Phoslo) 667 mg PO WM [facility] Last Admin: 03/05/18 08:55 Dose: 667 mg Calcium Carbonate (Oscal) 500 mg PO BID [facility] Last Admin: 03/05/18 10:51 Dose: 500 mg Cinacalcet (Sensipar) 30 mg PO DAILY [facility] Docusate Sodium (Colace) 100 mg PO TID [facility] Last Admin: 03/05/18 10:40 Dose: 100 mg Ezetimibe (Zetia) 10 mg PO DAILY [facility] Last Admin: 03/05/18 10:41 Dose: 10 mg Ferrous Gluconate (Fergon) 324 mg PO BID [facility] Last Admin: 03/05/18 10:40 Dose: 324 mg Hydrocortisone Sodium Succinate (Solu-Cortef) 50 mg IVP Q6H [facility] Last Admin: 03/05/18 05:14 Dose: 50 mg Doxycycline Hyclate 100 mg/ (Sodium Chloride) 100 mls @ 100 mls/hr IVPB Q12 [facility]; Protocol Last Admin: 03/05/18 10:42 Dose: 100 mls/hr Meropenem 500 mg/ Sodium (Chloride) 50 mls @ 100 mls/hr IVPB Q24H [facility]; Protocol Stop: 03/10/18 22:46 Last Admin: 03/04/18 22:00 Dose: 100 mls/hr Sodium Bicarbonate 150 meq/ (Dextrose) 1,150 mls @ 75 mls/hr IV .[id number] [facility] Insulin Human Lispro (Humalog High) 0 units SC ACHS [facility]; Protocol Last Admin: 03/05/18 08:55 Dose: 7 u Levalbuterol HCl (Xopenex) 0.63 mg IH [id number] [facility] Last Admin: 03/05/18 07:00 Dose: 0.63 mg Midodrine (Proamatine) 5 mg PO TID [facility] Last Admin: 03/05/18 10:52 Dose: 5 mg Ondansetron HCl (Zofran Inj) 4 mg IVP Q4H PRN PRN Reason: Nausea/Vomiting Pantoprazole Sodium (Protonix Ec Tab) 40 mg PO 0600 [facility] Last Admin: 03/05/18 05:14 Dose: 40 mg Polyethylene Glycol (Miralax) 17 gm PO BID [facility] Last Admin: 03/05/18 10:50 Dose: 17 gm Tacrolimus (Prograf Cap) 1 mg PO QPM [facility] Last Admin: 03/04/18 18:33 Dose: 1 mg Tacrolimus (Prograf Cap) 2 mg PO QAM [facility] Last Admin: 03/05/18 10:46 Dose: 2 mg - Labs Labs: 03/05/18 07:35 03/05/18 05:50 PT 12.8 SECONDS (9.4-12.5) H 03/03/18 10:20 INR 1.11 03/03/18 10:20 APTT 27.9 Seconds (25.1-36.5) 03/03/18 10:20 - Constitutional Appears: Non-toxic, No Acute Distress, Cachectic, Chronically Ill - Head Exam Head Exam: NORMAL INSPECTION - Eye Exam Eye Exam: EOMI, Normal appearance - ENT Exam ENT Exam: Mucous Membranes Moist - Respiratory Exam Respiratory Exam: Clear to Ausculation Bilateral, NORMAL BREATHING PATTERN - Cardiovascular Exam Cardiovascular Exam: REGULAR RHYTHM, +S1, +S2 - GI/Abdominal Exam GI & Abdominal Exam: Distended, Soft, Normal Bowel Sounds. absent: Tenderness - Extremities Exam Extremities Exam: Normal Inspection - Neurological Exam Neurological Exam: Alert, Awake, Oriented x3 - Psychiatric Exam Psychiatric exam: Normal Affect, Normal Mood - Skin Skin Exam: Dry, Normal Color Assessment and Plan - Assessment and Plan (Free Text) Assessment: #Chronic Anemia #Hypotension #PCKD s/p transplant 2016 #AAA ~8cm #T2DM #AVR #HTN #Pulmonary HTN #CHF PLAN: -Continue care per ICU and medical team -Now on Dialysis -Continue to transfuse blood for Hb less than 7. -No signs of GI bleeding -Recommend Colonoscopy as outpatient after AAA addressed -EGD in [facility] 2016 was mostly unremarkable. <Mac Cordova V - Last Filed: 03/05/18 21:47> Objective - Vital Signs/Intake and Output Vital Signs (last 24 hours): Temp Pulse Resp BP Pulse Ox 99.2 F 124 H 57 H 129/63 100 03/05/18 18:00 03/05/18 20:25 03/05/18 06:30 03/05/18 06:00 03/05/18 05:30 Intake and Output: 03/05/18 03/06/18 18:59 06:59 Intake Total 1100 Output Total 900 Balance 200 - Medications Medications: Current Medications Acetaminophen (Tylenol 325mg Tab) 650 mg PO Q6 PRN PRN Reason: TEMP>=99.5F Acetaminophen (Tylenol 650 Mg Supp) 650 mg RC Q6H PRN PRN Reason: TEMP>=99.5F Acetaminophen (Tylenol 650 Mg Supp) 650 mg RC Q6H PRN PRN Reason: Headache Acetaminophen (Tylenol 325mg Tab) 650 mg PO Q6H PRN PRN Reason: Headache Atorvastatin Calcium (Lipitor) 20 mg PO DIN [facility] Last Admin: 03/05/18 20:08 Dose: 20 mg Benzonatate (Tessalon Perles) 200 mg PO TID [facility] Last Admin: 03/05/18 20:02 Dose: 200 mg Calcitriol (Rocaltrol) 0.5 mcg PO DAILY [facility] Last Admin: 03/05/18 10:44 Dose: 0.5 mcg Calcium Acetate (Phoslo) 667 mg PO WM [facility] Last Admin: 03/05/18 20:08 Dose: 667 mg Calcium Carbonate (Oscal) 500 mg PO BID [facility] Last Admin: 03/05/18 20:08 Dose: 500 mg Cinacalcet (Sensipar) 30 mg PO DAILY [facility] Docusate Sodium (Colace) 100 mg PO TID [facility] Last Admin: 03/05/18 20:02 Dose: 100 mg Ezetimibe (Zetia) 10 mg PO DAILY [facility] Last Admin: 03/05/18 10:41 Dose: 10 mg Ferrous Gluconate (Fergon) 324 mg PO BID [facility] Last Admin: 03/05/18 20:08 Dose: 324 mg Hydrocortisone Sodium Succinate (Solu-Cortef) 50 mg IVP Q6H [facility] Last Admin: 03/05/18 20:01 Dose: 50 mg Doxycycline Hyclate 100 mg/ (Sodium Chloride) 100 mls @ 100 mls/hr IVPB Q12 [facility]; Protocol Last Admin: 03/05/18 10:42 Dose: 100 mls/hr Meropenem 500 mg/ Sodium (Chloride) 50 mls @ 100 mls/hr IVPB Q24H [facility]; Protocol Stop: 03/10/18 22:46 Last Admin: 03/04/18 22:00 Dose: 100 mls/hr Sodium Bicarbonate 150 meq/ (Dextrose) 1,150 mls @ 75 mls/hr IV .[id number] [facility] Insulin Human Lispro (Humalog High) 0 units SC ACHS [facility]; Protocol Last Admin: 03/05/18 16:22 Dose: 7 u Levalbuterol HCl (Xopenex) 0.63 mg IH [id number] [facility] Last Admin: 03/05/18 13:02 Dose: 0.63 mg Midodrine (Proamatine) 5 mg PO TID [facility] Last Admin: 03/05/18 20:02 Dose: 5 mg Ondansetron HCl (Zofran Inj) 4 mg IVP Q4H PRN PRN Reason: Nausea/Vomiting Pantoprazole Sodium (Protonix Ec Tab) 40 mg PO 0600 [facility] Last Admin: 03/05/18 05:14 Dose: 40 mg Polyethylene Glycol (Miralax) 17 gm PO BID [facility] Last Admin: 03/05/18 20:07 Dose: 17 gm Tacrolimus (Prograf Cap) 1 mg PO QPM [facility] Last Admin: 03/05/18 20:08 Dose: 1 mg Tacrolimus (Prograf Cap) 2 mg PO QAM [facility] Last Admin: 03/05/18 10:46 Dose: 2 mg - Labs Labs: 03/05/18 07:35 03/05/18 05:50 PT 12.8 SECONDS (9.4-12.5) H 03/03/18 10:20 INR 1.11 03/03/18 10:20 APTT 27.9 Seconds (25.1-36.5) 03/03/18 10:20 Attending/Attestation - Attestation I have personally seen and examined this patient.: Yes I have fully participated in the care of the patient.: Yes I have reviewed all pertinent clinical information, including history, physical exam and plan: Yes Notes (Text): This is an addendum to GI progress report dictated by the GI Fellow.The patient was seen and examined earlier. Medical records, lab studies, imagings were reviewed. Last 24 hours events reviewed. Agreed with the above treatment plan as outlined in GI Fellow 's notes with the addition of the following Hb dropped to 6.4 repeat 7 grams No active bleeding obvious Patient is being followed by arc trimmer Dr. Leigh. His notes reviewed and appreciated Would avoid endoscopic procedures in view of the very large AAA 03/05/18 21:42
[2018-03-05] MEDS ORDERED: Darbepoetin Alfa 100 mcg/ml Inj IVP ONE (14:10)
--- NOTE | 2018-03-05 15:58 | PN ---
DATE: 03/05/2018 SUBJECTIVE: The patient is seen lying in the bed in CCU, bed 2. The patient is alert, awake, responsive, lying in bed. Does not appear to be in any distress. Overnight nurse's notes were reviewed. The patient tolerated the dialysis yesterday. PHYSICAL EXAMINATION: VITAL SIGNS: T-max afebrile; telemetry shows sinus tachycardia; blood pressure 129/63, 129/67, 130/71; respiration 32, 34; O2 sat 100%. GENERAL: The patient is seen lying in the bed. HEENT: The patient's head examination normocephalic, atraumatic. HEENT examination shows pale conjunctivae. Anicteric sclerae. No oropharyngeal lesion. No neck rigidity. CHEST: Kyphosis. LUNGS: Shows questionable rhonchi bilaterally. No rales, crackles or wheezing. CARDIOVASCULAR: S1, S2. Tachycardic rhythm. Positive systolic murmur, left sternal border, left second intercostal space, right second intercostal space. ABDOMEN: Soft. Positive midline pulsation. GENITALIA: Male. Positive left upper extremity AV fistula. Positive thrill. EXTREMITIES: Lower extremity shows trace swelling of the lower extremity. Positive poor foot hygiene noted. MUSCULOSKELETAL: Shows a body mass index of 16. Gait examination is not tested. DIAGNOSTICS: From 03/05/2018, WBC 5.6 and 6.1, hemoglobin and hematocrit 6.4 and 19.8 and 7 and 21.6, platelet 219 and 202, granulocytes 95% segs. Sodium 136, potassium 4.5, chloride 96, CO2 of 13, anion gap 31, BUN 87, creatinine 5.2, GFR 14, glucose 277, hemoglobin A1c is 10.4, serum osmolality 327, lactic acid 0.9, calcium 7.8, phosphorus 5.7. LFTs are normal. BNP 17,400. Procalcitonin level is 64.4, down from 150.03. Microbiology: Cultures are all negative. The patient had a chest x-ray done, which shows bilateral pleural effusions, elevated right hemidiaphragm, questionable left lower lobe pneumonia. IMPRESSION AND PLAN: 1. Systemic inflammatory response syndrome secondary to uremia and acute renal failure. 2. Hypotension. 3. Tachycardia. 4. Tachypnea. 5. Leukopenia. 6. Anemia. 7. Granulocytosis. 8. Increased anion gap metabolic acidosis and lactic acidosis. 9. Severe metabolic acidosis. 10. Questionable uncontrolled type 1 diabetes mellitus with hemoglobin A1c of 10.4. 11. Secondary hyperparathyroidism with elevated PTH level. 12. Hyperprocalcitoninemia. 13. Non-hemolyzed hyperkalemia. 14. Hyponatremia. 15. Hyperglycemia. 16. Hyperphosphatemia. 17. Proteinuria. 18. Bacteriuria. 19. Questionable left lower lobe pneumonia. 20. Bilateral pleural effusion. 21. Cardiomegaly. 22. Aortic valve replacement. 23. Left axis deviation. 24. History of polycystic kidney disease. 25. Abdominal aortic aneurysm. 26. Mycotic elongated toenails and xerostomia. 27. Status post bilateral feet toenail debridement. 28. Pulmonary hypertension. 29. Possible questionable sepsis versus systemic inflammatory response syndrome. 30. Status post renal transplant, on immunosuppression. 31. Insulin-requiring diabetes mellitus. 32. Deconditioning. 33. Hypocalcemia. 1. Hypotensive shock versus questionable septic shock with hyperprocalcitoninemia. 2. History of polycystic kidney disease, history of renal transplant. 3. Lactic acidosis. 4. Increased anion gap metabolic acidosis. 5. Tachycardia. 6. Tachypnea. 7. Leukopenia, anemia. 8. Granulocytosis. 9. Lactic acidosis. 10. Increased anion gap metabolic acidosis. 11. Severe metabolic acidosis. 12. Hyponatremia. 13. Status post hyperkalemia. 14. Hemodialysis requiring renal failure. 15. Hypocalcemia. 16. Hyperphosphatemia. 17. Hypomagnesemia. 18. Protein malnutrition. 19. Hypoalbuminemia. 20. Secondary hyperparathyroidism with elevated PTH of 469. 21. Hyperprocalcitoninemia. 22. Right upper lobe pneumonia. 23. Bibasilar atelectasis and bilateral pleural effusion. 24. Status post aortic valve replacement. 25. Status post aortic valve replacement with proximal aortic valve graft. 26. Descending aortic aneurysm. 27. Bilateral pleural effusion, left more than the right. 28. Dilated esophagus. 29. Multiple hepatic cyst and masses. 30. Gallbladder distention. 31. Polycystic kidney disease. 32. An 8.3-cm infrarenal abdominal aortic aneurysm. 33. Chronic infrarenal abdominal aortic dissection at and below the level of the renal arteries. 34. Diverticulosis of the colon. 35. Hydronephrosis of the transplanted kidney. 36. Polycystic kidney disease. 37. Left axis deviation. 38. Coronary ischemic changes. 39. 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 40. Acute renal failure with acute kidney injury with underlying chronic kidney disease and possible failing transplanted renal allograft. 41. Questionable and possible septic versus hypovolemic and hypotensive shock. 42. High anion gap metabolic acidosis. 1. Severe symptomatic hypotension. 2. Severe symptomatic anemia with symptoms of fatigue, tiredness, shortness of breath and dyspnea on exertion. 3. Worsening renal failure with worsening chronic kidney disease. 4. Hyponatremia. 5. Hyperkalemia. 6. Anemia of chronic kidney disease with iron-deficiency anemia. 7. Granulocytosis. 8. Lymphocytopenia. 9. Hyponatremia. 10. Non-hemolyzed hyperkalemia. 11. Increased anion gap metabolic acidosis. 12. History of end-stage renal disease, hemodialysis dependent in the past with status post renal transplant. 13. Insulin-requiring diabetes mellitus with hyperglycemia. 14. Hypocalcemia. Plan at this time, the patient is to be continued on ICU. The patient has been ordered transfusion of 1 unit of PRBC on dialysis. The patient has been ordered Vibramycin 100 IV every 12; Fergon 324 twice a day; Humalog high-dose sliding scale coverage before meals and at bedtime; Lipitor 20 mg daily; meropenem 500 mg IV every 24; MiraLax 17 g twice a day; Os-Krystian 500 twice a day; PhosLo 667 mg with meals; midodrine 5 mg three times a day; Prograf 1 mg p.m. and Prograf 2 mg a.m.; Protonix 40 mg daily; Rocaltrol 0.5 mcg p.o. daily; Sensipar 30 mg daily; hydrocortisone 50 mg IV every 6, which needs to be tapered by the phlebotomist; Tessalon Perles 200 three times a day; Tylenol p.r.n.; Xopenex nebulizer 0.63 mg every 6 hours; Zetia 10 mg daily; Zofran 4 mg IV every 4 p.r.n. Incentive spirometry, oxygen nasal cannula. Echocardiogram ordered by cardiology. The patient has been requested to be seen by Dr. Carlos Shane. The patient at present has further management will be dependent upon the patient's clinical condition, hemodynamic status and as per the patient's response to therapeutic intervention, as per the patient's diagnostic test results and as per recommendation by all the physicians involved in the care of the patient. The patient's overall prognosis is guarded to poor. Dictated and electronically signed, not read. Mart Knox MD MTDJeet
--- NOTE | 2018-03-05 16:31 | PN ---
DATE: 03/05/2018 SUBJECTIVE: The patient was seen earlier today in room 129, bed 2. The patient has uneventful night as the nurse caring for the patient overnight. The patient was seen earlier this morning. No fevers and no chills reported. PHYSICAL EXAMINATION VITAL SIGNS: Temperature is 98, blood pressure is 129/63, respiratory rate of 30 with O2 saturation is noted of 100% saturation in a patient with nasal cannula. HEENT: Unremarkable. NECK: Supple. LUNGS: Decreased breath sounds. HEART: Normal S1 and S2. ABDOMEN: Soft. Nontender. LABORATORY EXAMINATION: Reveals a white count of 6.1, hemoglobin of 7, and platelets of 202. Coagulation is noted. Chemistries are reviewed. BUN of 87, creatinine of 5.7. Procalcitonin is 64. Urinalysis is noted. level is reviewed. Random vancomycin level of 11. Serology is noted. Microbiology reveals the patient's blood cultures are negative, nares are negative. Review of orders reveals the patient to be on doxycycline and meropenem. ASSESSMENT AND PLAN: A 67-year-old male seen in 129, bed 2 with a history of polycystic kidney disease; chronic renal failure, status post transplant in 2006; diabetes; status post aortic valve replacement; chronic anemia; dyslipidemia; hypertension; pulmonary hypertension; abdominal aortic aneurysm; who was admitted with increasing nausea and fatigue and thus far the cultures are negative. The patient with systemic inflammatory response syndrome, worsening renal failure, and must rule out sepsis secondary to healthcare associated pneumonia, on meropenem and doxycycline day #2. Pending panculture results. The patient also had a repeat chest x-ray this morning, which showed underlying airspace diseases not excluded and bilateral effusion. However, the patient did have a CAT scan on admission on the . The patient had a CAT scan of the abdomen and pelvis, which was read by Dr. Byron Zhou, which revealed stable infiltrate in the right upper lobe, atelectasis. We will follow with you. Bishop Squires MD
--- NOTE | 2018-03-05 21:24 | CP.PCM.PN ---
Subjective - Date & Time of Evaluation Date of Evaluation: 03/05/18 Time of Evaluation: 16:00 - Subjective Subjective: Feels more short of breath. Objective - Vital Signs/Intake and Output Vital Signs (last 24 hours): Temp Pulse Resp BP Pulse Ox 99.2 F 124 H 57 H 129/63 100 03/05/18 18:00 03/05/18 20:25 03/05/18 06:30 03/05/18 06:00 03/05/18 05:30 Intake and Output: 03/05/18 03/06/18 18:59 06:59 Intake Total 1100 Output Total 900 Balance 200 - Medications Medications: Current Medications Acetaminophen (Tylenol 325mg Tab) 650 mg PO Q6 PRN PRN Reason: TEMP>=99.5F Acetaminophen (Tylenol 650 Mg Supp) 650 mg RC Q6H PRN PRN Reason: TEMP>=99.5F Acetaminophen (Tylenol 650 Mg Supp) 650 mg RC Q6H PRN PRN Reason: Headache Acetaminophen (Tylenol 325mg Tab) 650 mg PO Q6H PRN PRN Reason: Headache Atorvastatin Calcium (Lipitor) 20 mg PO DIN [facility] Last Admin: 03/05/18 20:08 Dose: 20 mg Benzonatate (Tessalon Perles) 200 mg PO TID [facility] Last Admin: 03/05/18 20:02 Dose: 200 mg Calcitriol (Rocaltrol) 0.5 mcg PO DAILY [facility] Last Admin: 03/05/18 10:44 Dose: 0.5 mcg Calcium Acetate (Phoslo) 667 mg PO WM [facility] Last Admin: 03/05/18 20:08 Dose: 667 mg Calcium Carbonate (Oscal) 500 mg PO BID [facility] Last Admin: 03/05/18 20:08 Dose: 500 mg Cinacalcet (Sensipar) 30 mg PO DAILY [facility] Docusate Sodium (Colace) 100 mg PO TID [facility] Last Admin: 03/05/18 20:02 Dose: 100 mg Ezetimibe (Zetia) 10 mg PO DAILY [facility] Last Admin: 03/05/18 10:41 Dose: 10 mg Ferrous Gluconate (Fergon) 324 mg PO BID [facility] Last Admin: 03/05/18 20:08 Dose: 324 mg Hydrocortisone Sodium Succinate (Solu-Cortef) 50 mg IVP Q6H [facility] Last Admin: 03/05/18 20:01 Dose: 50 mg Doxycycline Hyclate 100 mg/ (Sodium Chloride) 100 mls @ 100 mls/hr IVPB Q12 [facility]; Protocol Last Admin: 03/05/18 10:42 Dose: 100 mls/hr Meropenem 500 mg/ Sodium (Chloride) 50 mls @ 100 mls/hr IVPB Q24H [facility]; Protocol Stop: 03/10/18 22:46 Last Admin: 03/04/18 22:00 Dose: 100 mls/hr Sodium Bicarbonate 150 meq/ (Dextrose) 1,150 mls @ 75 mls/hr IV .[id number] [facility] Insulin Human Lispro (Humalog High) 0 units SC ACHS [facility]; Protocol Last Admin: 03/05/18 16:22 Dose: 7 u Levalbuterol HCl (Xopenex) 0.63 mg IH [id number] [facility] Last Admin: 03/05/18 13:02 Dose: 0.63 mg Midodrine (Proamatine) 5 mg PO TID [facility] Last Admin: 03/05/18 20:02 Dose: 5 mg Ondansetron HCl (Zofran Inj) 4 mg IVP Q4H PRN PRN Reason: Nausea/Vomiting Pantoprazole Sodium (Protonix Ec Tab) 40 mg PO 0600 [facility] Last Admin: 03/05/18 05:14 Dose: 40 mg Polyethylene Glycol (Miralax) 17 gm PO BID [facility] Last Admin: 03/05/18 20:07 Dose: 17 gm Tacrolimus (Prograf Cap) 1 mg PO QPM [facility] Last Admin: 03/05/18 20:08 Dose: 1 mg Tacrolimus (Prograf Cap) 2 mg PO QAM [facility] Last Admin: 03/05/18 10:46 Dose: 2 mg - Labs Labs: 03/05/18 07:35 03/05/18 05:50 PT 12.8 SECONDS (9.4-12.5) H 03/03/18 10:20 INR 1.11 03/03/18 10:20 APTT 27.9 Seconds (25.1-36.5) 03/03/18 10:20 - Head Exam Head Exam: ATRAUMATIC - Eye Exam Eye Exam: Normal appearance - ENT Exam ENT Exam: Mucous Membranes Dry - Respiratory Exam Respiratory Exam: NORMAL BREATHING PATTERN - Cardiovascular Exam Cardiovascular Exam: +S1, +S2 - GI/Abdominal Exam GI & Abdominal Exam: Normal Bowel Sounds Assessment and Plan (1) Anemia Assessment & Plan: hypoproliferative erythroid response okay to use MARK for anemia of CKD on PO iron, avoid IV iron given sepsis anemia of chronic disease given infection transfusion support - 1unit today Status: Acute
[2018-03-05] MEDS: Meropenem 500 MG in Sodium Chloride 0.9% 50 ML IVPB SCH (21:59)
[2018-03-06] MEDS: Levalbuterol 0.63 MG/3 ML Inhal Soln UD IH SCH ×4 (01:54→20:01)
[2018-03-06] MEDS: Pantoprazole 40 mg EC Tab PO SCH (07:39)
--- NOTE | 2018-03-06 07:51 | CP.CCUPN ---
<Yamilka Lowery - Last Filed: 03/06/18 10:35> CCU Subjective - Physician Review Subjective (Free Text): Yamilka Lowery, PGY-1, CCU Progress Note for Dr. Flores Patient seen and examined at bedside. Patient was confused to place overnight and slightly agitated regarding wanting to return home but was reoriented. Patient continues to report wanting to return home but is compliant at this time. Patient reports improved weakness, much improved shortness of breath. Patient denies headache, dizziness, fever, chest pain, back pain, heart palpitations, wheezing, cough, nausea, vomiting, constipation, diarrhea, dysuria, hematuria, numbness, and tingling. Critical Care Time Spent (in minutes): 60 CCU Objective - Vital Signs / Intake & Output Vital Signs (Last 4 hours): Vital Signs Temp Pulse Resp BP Pulse Ox 03/06/18 06:50 119 H 37 H 100 03/06/18 06:40 120 H 42 H 100 03/06/18 06:30 118 H 34 H 100 03/06/18 06:20 120 H 45 H 100 03/06/18 06:10 117 H 23 100 03/06/18 06:00 120 H 47 H 131/75 100 03/06/18 05:50 117 H 31 H 100 03/06/18 05:42 98.5 F 03/06/18 05:40 119 H 31 H 100 03/06/18 05:30 123 H 31 H 100 03/06/18 05:20 116 H 30 H 100 03/06/18 05:10 116 H 29 H 100 03/06/18 05:00 116 H 25 H 132/80 100 03/06/18 04:53 119 H 99 03/06/18 04:40 127 H 37 H 99 03/06/18 04:39 117 H 03/06/18 04:30 118 H 24 03/06/18 04:20 119 H 33 H 03/06/18 04:10 120 H 03/06/18 04:00 123 H 128/72 03/06/18 03:50 120 H 27 H Intake and Output (Last 8hrs): Intake & Output 03/05/18 03/06/18 03/06/18 22:59 06:59 14:59 Intake Total 1100 1020 Output Total 900 0 Balance 200 1020 Weight 53 lb 9.6 oz Intake: IV 650 900 Right Upper arm 650 900 Oral 350 120 Other 100 Output: Urine 500 0 Urine, Voided 500 0 Urine/Stool Mix 400 Emesis 0 Other 0 0 Other: # Voids Urine, Voided 3 # Bowel Movements 1 1 - Physical Exam Head: Positive for: Atraumatic, Normocephalic Pupils: Positive for: PERRL Extroacular Muscles: Positive for: EOMI Conjunctiva: Positive for: Normal Mouth: Positive for: Moist Mucous Membranes Neck: Positive for: Normal Range of Motion Respiratory/Chest: Positive for: Clear to Auscultation, Good Air Exchange, Decreased Breath Sounds (at the bases). Negative for: Accessory Muscle Use, Wheezes, Rales, Retracting, Rhonchi Cardiovascular: Positive for: Regular Rate and Rhythm, Murmurs (3/5 systolic ejection murmur in RUSB), Normal S1, S2 Abdomen: Positive for: Distention (firm). 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 Pt states is not used. He is currently not on dialysis.). Negative for: Cyanosis, Edema Lower Extremity: Positive for: Normal Inspection. Negative for: Edema Neurological: Positive for: GCS=15, CN II-XII Intact, Speech Normal, Motor Func Grossly Intact, Other (MSK +4/5 throughout) Skin: Positive for: Warm, Dry, Pale. Negative for: Rashes Psychiatric: Positive for: Alert, Oriented x 3, Normal Insight, Normal Concentration - Medications Active Medications: Active Medications Generic Name Dose Route Start Last Admin Trade Name Freq PRN Reason Stop Dose Admin Acetaminophen 650 mg 03/03/18 19:21 Tylenol 325mg Tab PO Q6 PRN TEMP>=99.5F Acetaminophen 650 mg 03/03/18 19:21 Tylenol 650 Mg Supp RC Q6H PRN TEMP>=99.5F Acetaminophen 650 mg 03/03/18 19:28 Tylenol 650 Mg Supp RC Q6H PRN Headache Acetaminophen 650 mg 03/03/18 19:29 Tylenol 325mg Tab PO Q6H PRN Headache Atorvastatin Calcium 20 mg 03/03/18 17:00 03/05/18 20:08 Lipitor PO 20 mg DIN TAWANA Administration Benzonatate 200 mg 03/04/18 10:00 03/05/18 20:02 Tessalon Perles PO 200 mg TID TAWANA Administration Calcitriol 0.5 mcg 03/03/18 15:30 03/05/18 10:44 Rocaltrol PO 0.5 mcg DAILY [facility] Administration Calcium Acetate 667 mg 03/04/18 12:00 03/05/18 20:08 Phoslo PO 667 mg WM [facility] Administration Calcium Carbonate 500 mg 03/04/18 18:00 03/05/18 20:08 Oscal PO 500 mg BID [facility]NA Administration Cinacalcet 30 mg 03/04/18 10:00 Sensipar PO DAILY [facility] Docusate Sodium 100 mg 03/04/18 10:00 03/05/18 20:02 Colace PO 100 mg TID [facility]NA Administration Ezetimibe 10 mg 03/04/18 10:00 03/05/18 10:41 Zetia PO 10 mg DAILY [facility] Administration Ferrous Gluconate 324 mg 03/03/18 18:00 03/05/18 20:08 Fergon PO 324 mg BID [facility] Administration Hydrocortisone Sodium Succinate 50 mg 03/03/18 18:15 03/06/18 07:39 Solu-Cortef IVP 50 mg Q6H [facility] Administration Doxycycline Hyclate 100 mg/ 100 mls @ 100 mls/hr 03/03/18 22:00 03/05/18 22:01 Sodium Chloride IVPB 100 mls/hr Q12 [facility] Administration Protocol Meropenem 500 mg/ Sodium 50 mls @ 100 mls/hr 03/03/18 22:45 03/05/18 21:59 Chloride IVPB 03/10/18 22:46 100 mls/hr Q24H [facility] Administration Protocol Sodium Bicarbonate 150 meq/ 1,150 mls @ 75 mls/hr 03/05/18 12:30 03/06/18 07:41 Dextrose IV 75 mls/hr .[id number] [facility] Administration Insulin Human Lispro 0 units 03/04/18 11:30 03/05/18 22:52 Humalog High SC 4 u ACHS [facility] Administration Protocol Levalbuterol HCl 0.63 mg 03/03/18 20:00 03/06/18 07:17 Xopenex IH 0.63 mg [id number] [facility] Administration Midodrine 5 mg 03/03/18 23:45 03/05/18 20:02 Proamatine PO 5 mg TID [facility] Administration Ondansetron HCl 4 mg 03/03/18 19:21 Zofran Inj IVP Q4H PRN Nausea/Vomiting Pantoprazole Sodium 40 mg 03/04/18 06:00 03/06/18 07:39 Protonix Ec Tab PO 40 mg 0600 [facility] Administration Polyethylene Glycol 17 gm 03/04/18 10:00 03/05/18 20:07 Miralax PO 17 gm BID [facility] Administration Tacrolimus 1 mg 03/03/18 18:00 03/05/18 20:08 Prograf Cap PO 1 mg QPM [facility] Administration Tacrolimus 2 mg 03/04/18 10:00 03/05/18 10:46 Prograf Cap PO 2 mg QAM [facility] Administration - Patient Studies Lab Studies: Microbiology Studies 03/03/18 20:18 Blood Culture - Preliminary Blood NO GROWTH AFTER 48 HOURS 03/03/18 20:18 Blood Culture - Preliminary Blood NO GROWTH AFTER 48 HOURS 03/03/18 15:25 Blood Culture - Preliminary Blood-Venous NO GROWTH AFTER 48 HOURS 03/03/18 14:27 Blood Culture - Preliminary Blood-Venous NO GROWTH AFTER 48 HOURS 03/03/18 19:00 MRSA Culture (Admit) - Final Naris MRSA NOT DETECTED Lab Studies 03/06/18 03/05/18 03/05/18 Range/Units 07:11 21:36 16:17 WBC (4.5-11.0) 10^3/ul RBC (3.5-6.1) 10^6/uL Hgb (14.0-18.0) g/dL Hct (42.0-52.0) % MCV (80.0-105.0) fl MCH (25.0-35.0) pg MCHC (31.0-37.0) g/dl RDW (11.5-14.5) % Plt Count (120.0-450.0) 10^3/uL Retic Count 1.18 (0.5-1.5) % POC Glucose (mg/dL) 338 H 219 H (65-110) mg/dL Serum Osmolality (272-300) mosm/kg Lactic Acid (0.7-2.1) mmol/L NT-Pro-B Natriuret Pep (0-450) pg/mL Procalcitonin (0.19-0.49) NG/ML Random Vancomycin (20-40) ug/mL Blood Type Antibody Screen Crossmatch BBK History Checked 03/05/18 03/05/18 03/05/18 Range/Units 11:49 11:00 07:35 WBC 6.1 (4.5-11.0) 10^3/ul RBC 3.06 L (3.5-6.1) 10^6/uL Hgb 7.0 L (14.0-18.0) g/dL Hct 21.6 L (42.0-52.0) % MCV 70.6 L (80.0-105.0) fl MCH 22.9 L (25.0-35.0) pg MCHC 32.4 (31.0-37.0) g/dl RDW 19.7 H (11.5-14.5) % Plt Count 202 (120.0-450.0) 10^3/uL Retic Count (0.5-1.5) % POC Glucose (mg/dL) 286 H (65-110) mg/dL Serum Osmolality (272-300) mosm/kg Lactic Acid 0.9 (0.7-2.1) mmol/L NT-Pro-B Natriuret Pep (0-450) pg/mL Procalcitonin (0.19-0.49) NG/ML Random Vancomycin (20-40) ug/mL Blood Type Antibody Screen Crossmatch BBK History Checked 03/05/18 03/05/18 03/05/18 Range/Units 07:30 07:30 05:50 WBC (4.5-11.0) 10^3/ul RBC (3.5-6.1) 10^6/uL Hgb (14.0-18.0) g/dL Hct (42.0-52.0) % MCV (80.0-105.0) fl MCH (25.0-35.0) pg MCHC (31.0-37.0) g/dl RDW (11.5-14.5) % Plt Count (120.0-450.0) 10^3/uL Retic Count (0.5-1.5) % POC Glucose (mg/dL) (65-110) mg/dL Serum Osmolality 327 H (272-300) mosm/kg Lactic Acid (0.7-2.1) mmol/L NT-Pro-B Natriuret Pep (0-450) pg/mL Procalcitonin 64.33 H (0.19-0.49) NG/ML Random Vancomycin 11.2 L (20-40) ug/mL Blood Type Antibody Screen Crossmatch BBK History Checked 03/05/18 03/03/18 Range/Units 05:30 11:00 WBC (4.5-11.0) 10^3/ul RBC (3.5-6.1) 10^6/uL Hgb (14.0-18.0) g/dL Hct (42.0-52.0) % MCV (80.0-105.0) fl MCH (25.0-35.0) pg MCHC (31.0-37.0) g/dl RDW (11.5-14.5) % Plt Count (120.0-450.0) 10^3/uL Retic Count (0.5-1.5) % POC Glucose (mg/dL) (65-110) mg/dL Serum Osmolality (272-300) mosm/kg Lactic Acid (0.7-2.1) mmol/L NT-Pro-B Natriuret Pep 84671 H (0-450) pg/mL Procalcitonin (0.19-0.49) NG/ML Random Vancomycin (20-40) ug/mL Blood Type O POSITIVE Antibody Screen Negative Crossmatch See Detail BBK History Checked Patient has bt Laboratory Results - last 24 hr 03/03/18 03/05/18 03/05/18 11:00 05:30 05:50 WBC RBC Hgb Hct MCV MCH MCHC RDW Plt Count Retic Count POC Glucose (mg/dL) Serum Osmolality Lactic Acid NT-Pro-B Natriuret Pep 83893 H Procalcitonin 64.33 H Random Vancomycin Blood Type O POSITIVE Antibody Screen Negative Crossmatch See Detail BBK History Checked Patient has bt 03/05/18 03/05/18 03/05/18 07:30 07:30 07:35 WBC 6.1 RBC 3.06 L Hgb 7.0 L Hct 21.6 L MCV 70.6 L MCH 22.9 L MCHC 32.4 RDW 19.7 H Plt Count 202 Retic Count POC Glucose (mg/dL) Serum Osmolality 327 H Lactic Acid NT-Pro-B Natriuret Pep Procalcitonin Random Vancomycin 11.2 L Blood Type Antibody Screen Crossmatch BBK History Checked 03/05/18 03/05/18 03/05/18 11:00 11:49 16:17 WBC RBC Hgb Hct MCV MCH MCHC RDW Plt Count Retic Count 1.18 POC Glucose (mg/dL) 286 H Serum Osmolality Lactic Acid 0.9 NT-Pro-B Natriuret Pep Procalcitonin Random Vancomycin Blood Type Antibody Screen Crossmatch BBK History Checked 03/05/18 03/06/18 21:36 07:11 WBC RBC Hgb Hct MCV MCH MCHC RDW Plt Count Retic Count POC Glucose (mg/dL) 219 H 338 H Serum Osmolality Lactic Acid NT-Pro-B Natriuret Pep Procalcitonin Random Vancomycin Blood Type Antibody Screen Crossmatch BBK History Checked Fingerstick Blood Sugar Results: 216 Review of Systems - Constitutional Constitutional: Weakness. absent: Fever, Chills - EENT Eyes: absent: Blind Spots, Dry Eye Ears: absent: Decreased Hearing Nose/Mouth/Throat: absent: Dysphagia - Cardiovascular Cardiovascular: Dyspnea (improved), Orthopnea, Paroxysmal Nocturnal Dyspnea. absent: Chest Pain, Chest Pain at Rest, Chest Pain with Activity - Respiratory Respiratory: Dyspnea, Dyspnea on Exertion. absent: Cough, Wheezing - Gastrointestinal Gastrointestinal: absent: Abdominal Pain, Constipation, Diarrhea, Nausea, Vomiting - Genitourinary Genitourinary: absent: Change in Urinary Stream, Dysuria, Hematuria - Musculoskeletal Musculoskeletal: absent: Arthralgias, Myalgias - Integumentary Integumentary: absent: Rash - Neurological Neurological: absent: Dizziness, Numbness, Tingling, Weakness - Psychiatric Psychiatric: absent: Anxiety, Depression Critical Care Progress Note - Ventilator Checklist Head of Bed 30 Degrees: Yes - Extremities/Vascular Does the Patient have a Central Venous Catheter?: No Does the Patient need a Central Venous Catheter?: No Does the Patient have a Aquino Catheter?: No Does the Patient need a Aquino Catheter?: No - Nutrition Nutrition: Nutrition Category Date Time Status Diabetic [Consistent Carbohydrate] [DIET] Diets 03/03/18 Dinner Ordered Assessment/Plan - Assessment and Plan (Free Text) Assessment: 67 year old male with past medical history of aortic valve replacement, anemia, renal transplant in 2007, hyperlipidemia, hypertension, insulin dependent diabet es, secondary hyperparathyroidism, polycystic kidney disease, chronic kidney disease, pulmonary hypertension, diastolic congestive heart failure with last EF of 62.9%, cachexia, and aortic dissection is a poor historian and presents with weakness and shortness of the breath for 3 weeks. Plan: Neuro: -AAOx3, no FND, moving extremities past midline. -Monitor neuro status. -Reorient patient as necessary. Cardio: -RRR, hypotension resolved, tachycardia, systolic ejection murmur, tachypneic, firm and distended abdomen, +2 pitting edema in bilateral lower extremities -Patient's hypotension likely due to hypovolemia but cannot rule out cardiogenic or septic causes. -MAP: 95 -Due to patient's distended abdomen and bilateral lower extremity [place] [address], echocardiogram was ordered. -Echocardiogram shows LVEF of 60-65%, right atrium mildly dilated, aortic valve calcification with adequate opening, mild to moderate tricuspid and mitral regurgitation, severe pulmonary hypertension, aortic root dilatation. -CXR from 03/05: improved bilateral pleural effusion -Bicarbonate drip stopped -Continue doxycycline and merrem day 3. -Patient has stable infrarenal AAA at 8 cm and history of aortic dissection. Dr. Murray and I had a discussion with Dr. Carlos Fulton regarding this case, who recommended that patient be evaluated outpatient by Dr. Dewitt, Vascular surgery, who was supposed to perform intervention for the infrarenal AAA but patient had electrolyte abnormalities and intervention was held off. Dr. Dewitt will be contacted to arrange for AAA follow up. -Dr. Shane, Cardiology, was consulted for this case. Dr. Shane recommends cardiac catherization for tomorrow. -Cardiology recommends no beta fe for controlling patient's heart rate and recommends patient stay in ICU overnight. -Maintain MAP>65. -Monitor for S/S, HD compromise. Pulm: -Patient tachypnea improved. CTA B/L -Patient is stating well on 2L NC. -ABG from 03/04: pH: 7.29, pCO2: 19, pO2: 120, lactate: 1.3. -Tachypnea was likely due to compensation for metabolic acidosis from severe uremia. -Xopenex treatments given Q6 as needed -Improved bilateral pleural effusions on repeat chest x ray. -Bilateral upper and lower extremity duplex ultrasounds ordered to rule out DVT due to right palmar edema. -Maintain O2 saturation>95%. GI: -Tolerating diabetic diet. -Protonix 40 mg daily -GI recommends no endoscopy during this visit due to risk from 8 cm AAA. Results from 2017 EGD procedure shows hiatal hernia, nonbleeding erythematous mucosa. No ulcers. Patient for possible CT enterography. -GI, Dr. Cordova was consulted for possible GI bleed. /Nephro: -MYRNA on CKD stage 4. -Patient received hemodialysis yesterday and will receive hemodialysis today. HD session used low blood flow to prevent dialysis disequilibrium, high bicarb diasylate, and keeping a positive net fluid balance. -BUN/Cr: 48/2.9. Creatinine improved from 5.2 yesterday following dialysis. BUN improved from 87 yesterday following dialysis. -UA: negative leukocyte esterase and nitrates. 0-2 RBC, 0-2 WBC, small bacteria -As per nephrology, patient for dialysis today again. Patient will be started on dialysis 3 times a week. -Na: 136 from 136. Hyponatremia resolved. -K: 3.2. Patient mildly hypokalemia. Patient given 40 mg of KDUR. -HCO3: 26 from 13 yesterday. Uremia improving with dialysis. -Calcium improved with calcitriol, calcium acetate, and calcium carbonate to 8.4 from 7.8 yesterday. -Phosphate is 3.6 today. Hyperphosphatemia resolved. -PTH elevated at 469 likely 2/2 to chronic kidney disease. -Continue doxycycline and merrem day 3. -Patient currently on immunosuppresion with tacrolimus, hydrocortisone for renal transplant. Cellcept held. -Maintain euvolemia. Making good urine output (500 mL). -Strict I and Os. Check daily weights -Dr. Wheeler, nephrology consulted for further recommendations. Endocrinology: -Random glucose at 326. Glucose elevated likely due to hydrocortisone. Hydrocortisone will start to be tapered to 25 mg Q12 today. -HgbA1c: 10.4 -Continue patient on high dose sliding scale insulin. -Obtain and maintain euglycemia. Heme/Onc: -Anemic: 7.9 from 6.4 with MCV of 73.5 -FOBT -Continue ferrous gluconate 324 mg BID. -Anemia likely due to chronic kidney disease. -One dose of MARK given yesterday. -Patient was transfused 1 U of PRBCs during dialysis yesterday. Consent received and signed. Patient's last transfusion was 02/20/18. -Continue monitoring H/H -GI was consulted who wanted endoscopy results from 02/2017. Results showed hiatal hernia, nonbleeding erythematous mucosa. No ulcers. ID: -Afebrile, leukopenia resolved -Serum lactic acid: 0.9 from 0.7. -BCx: no growth in 48 hours -UCx -Sputum culture -Procalcitonin: 64.33 from 150 -Continue with doxycycline and merrem day 3 as emperic therapy. -Monitor for signs and symptoms of infection. -ID consulted for recommendations. Follow recommendations. DVT ppx: SCD GI ppx: protonix Patient seen and examined with Dr. Flores. - Date & Time Date: 03/06/18 Time: 10:35 <Marin Flores - Last Filed: 03/06/18 12:28> CCU Objective - Vital Signs / Intake & Output Vital Signs (Last 4 hours): Vital Signs Pulse Resp BP Pulse Ox 03/06/18 12:13 129 H 49 H 03/06/18 12:12 127 H 28 H 03/06/18 12:11 128 H 03/06/18 12:10 127 H 28 H 03/06/18 12:09 125 H 37 H 03/06/18 12:08 124 H 42 H 03/06/18 12:07 128 H 47 H 03/06/18 12:00 118 H 41 H 128/80 100 03/06/18 11:45 120 H 40 H 126/82 100 03/06/18 11:30 119 H 43 H 124/77 100 03/06/18 11:15 122 H 118/78 100 03/06/18 11:00 120 H 33 H 125/71 100 03/06/18 10:45 127 H 28 H 116/70 100 03/06/18 10:31 121 H 37 H 130/79 100 03/06/18 10:15 121 H 33 H 117/80 100 03/06/18 10:00 120 H 31 H 126/81 100 03/06/18 09:45 115 H 42 H 142/86 03/06/18 09:31 119 H 37 H 120/79 100 03/06/18 09:00 122 H 42 H 130/83 100 Intake and Output (Last 8hrs): Intake & Output 03/05/18 03/06/18 03/06/18 22:59 06:59 14:59 Intake Total 1100 1020 Output Total 900 0 Balance 200 1020 Weight 53 lb 9.6 oz Intake: IV 650 900 Right Upper arm 650 900 Oral 350 120 Other 100 Output: Urine 500 0 Urine, Voided 500 0 Urine/Stool Mix 400 Emesis 0 Other 0 0 Other: # Voids Urine, Voided 3 # Bowel Movements 1 1 - Medications Active Medications: Active Medications Generic Name Dose Route Start Last Admin Trade Name Freq PRN Reason Stop Dose Admin Acetaminophen 650 mg 03/03/18 19:21 Tylenol 325mg Tab PO Q6 PRN TEMP>=99.5F Acetaminophen 650 mg 03/03/18 19:21 Tylenol 650 Mg Supp RC Q6H PRN TEMP>=99.5F Acetaminophen 650 mg 03/03/18 19:28 Tylenol 650 Mg Supp RC Q6H PRN Headache Acetaminophen 650 mg 03/03/18 19:29 Tylenol 325mg Tab PO Q6H PRN Headache Atorvastatin Calcium 20 mg 03/03/18 17:00 03/05/18 20:08 Lipitor PO 20 mg DIN TAWANA Administration Benzonatate 200 mg 03/04/18 10:00 03/05/18 20:02 Tessalon Perles PO 200 mg TID TAWANA Administration Calcitriol 0.5 mcg 03/03/18 15:30 03/05/18 10:44 Rocaltrol PO 0.5 mcg DAILY [facility] Administration Calcium Acetate 667 mg 03/04/18 12:00 03/06/18 07:30 Phoslo PO 667 mg WM [facility] Administration Calcium Carbonate 500 mg 03/04/18 18:00 03/05/18 20:08 Oscal PO 500 mg BID [facility]NA Administration Cinacalcet 30 mg 03/04/18 10:00 Sensipar PO DAILY [facility] Docusate Sodium 100 mg 03/04/18 10:00 03/05/18 20:02 Colace PO 100 mg TID TAWANA Administration Ezetimibe 10 mg 03/04/18 10:00 03/06/18 09:43 Zetia PO Not Given DAILY [facility] Ferrous Gluconate 324 mg 03/03/18 18:00 03/05/18 20:08 Fergon PO 324 mg BID TA[facility] Administration Hydrocortisone Sodium Succinate 25 mg 03/06/18 10:00 Solu-Cortef IVP Q12 [facility] Doxycycline Hyclate 100 mg/ 100 mls @ 100 mls/hr 03/03/18 22:00 03/05/18 22:01 Sodium Chloride IVPB 100 mls/hr Q12 TAWANA Administration Protocol Meropenem 500 mg/ Sodium 50 mls @ 100 mls/hr 03/03/18 22:45 03/05/18 21:59 Chloride IVPB 03/10/18 22:46 100 mls/hr Q24H [facility] Administration Protocol Insulin Human Lispro 0 units 03/04/18 11:30 03/06/18 12:21 Humalog High SC Not Given ACHS [facility] Protocol Lactic Acid 0 gm 03/06/18 11:00 Lac-Hydrin 12% Lotion (225 G) EXT TID [facility]WANA Levalbuterol HCl 0.63 mg 03/03/18 20:00 03/06/18 07:17 Xopenex IH 0.63 mg [id number] TAWANA Administration Metoprolol Tartrate 25 mg 03/06/18 10:45 Lopressor PO BID [facility]NA Midodrine 5 mg 03/03/18 23:45 03/05/18 20:02 Proamatine PO 5 mg TID TAWANA Administration Ondansetron HCl 4 mg 03/03/18 19:21 Zofran Inj IVP Q4H PRN Nausea/Vomiting Pantoprazole Sodium 40 mg 03/04/18 06:00 03/06/18 07:39 Protonix Ec Tab PO 40 mg 0600 [facility] Administration Polyethylene Glycol 17 gm 03/04/18 10:00 03/05/18 20:07 Miralax PO 17 gm BID [facility] Administration Tacrolimus 1 mg 03/03/18 18:00 03/05/18 20:08 Prograf Cap PO 1 mg QPM [facility] Administration Tacrolimus 2 mg 03/04/18 10:00 03/05/18 10:46 Prograf Cap PO 2 mg QAM [facility] Administration - Patient Studies Lab Studies: Microbiology Studies 03/03/18 20:18 Blood Culture - Preliminary Blood NO GROWTH AFTER 48 HOURS 03/03/18 20:18 Blood Culture - Preliminary Blood NO GROWTH AFTER 48 HOURS 03/03/18 15:25 Blood Culture - Preliminary Blood-Venous NO GROWTH AFTER 48 HOURS 03/03/18 14:27 Blood Culture - Preliminary Blood-Venous NO GROWTH AFTER 48 HOURS 03/03/18 19:00 MRSA Culture (Admit) - Final Naris MRSA NOT DETECTED Lab Studies 03/06/18 03/06/18 03/06/18 Range/Units 09:50 09:50 08:00 WBC (4.5-11.0) 10^3/ul RBC (3.5-6.1) 10^6/uL Hgb (14.0-18.0) g/dL Hct (42.0-52.0) % MCV (80.0-105.0) fl MCH (25.0-35.0) pg MCHC (31.0-37.0) g/dl RDW (11.5-14.5) % Plt Count (120.0-450.0) 10^3/uL Gran % (50.0-68.0) % Lymph % (Auto) (22.0-35.0) % Mcnairy % (Auto) (1.0-6.0) % Eos % (Auto) (1.5-5.0) % Baso % (Auto) (0.0-3.0) % Gran # (1.4-6.5) Lymph # (Auto) (1.2-3.4) Mcnairy # (Auto) (0.1-0.6) Eos # (Auto) (0.0-0.7) Baso # (Auto) (0.0-2.0) K/mm3 Retic Count (0.5-1.5) % Sodium 136 (132-148) mmol/L Potassium 3.2 L (3.6-5.0) mmol/L Chloride 93 L (98-107) mmol/L Carbon Dioxide 26 (21-33) mmol/L Anion Gap 21 H (10-20) BUN 48 H (7-21) mg/dL Creatinine 2.9 H (0.8-1.5) mg/dl Est GFR ( Amer) 27 Est GFR (Non-Af Amer) 22 POC Glucose (mg/dL) (65-110) mg/dL Random Glucose 326 H* (70-110) mg/dL Calcium 8.4 (8.4-10.5) mg/dL Phosphorus 3.6 (2.5-4.5) mg/dL Magnesium 1.9 (1.7-2.2) mg/dL Iron 21 L (45-180) ug/dL TIBC 208 L (261-462) ug/dL % Saturation 10 L (20-55) % Total Bilirubin 0.5 (0.2-1.3) mg/dL Direct Bilirubin 0.5 H (0.0-0.4) mg/dL AST 24 (17-59) U/L ALT 26 (7-56) U/L Alkaline Phosphatase 81 (38-126) U/L Lactate Dehydrogenase 1250 H (333-699) U/L NT-Pro-B Natriuret Pep (0-450) pg/mL Total Protein 5.1 L (5.8-8.3) g/dL Albumin 3.0 (3.0-4.8) g/dL Globulin 2.1 gm/dL Albumin/Globulin Ratio 1.4 (1.1-1.8) Blood Type Antibody Screen Crossmatch BBK History Checked 03/06/18 03/06/18 03/06/18 Range/Units 08:00 07:11 07:08 WBC 4.7 D (4.5-11.0) 10^3/ul RBC 3.36 L (3.5-6.1) 10^6/uL Hgb 7.9 L (14.0-18.0) g/dL Hct 24.7 L (42.0-52.0) % MCV 73.5 L (80.0-105.0) fl MCH 23.5 L (25.0-35.0) pg MCHC 32.0 (31.0-37.0) g/dl RDW 19.1 H (11.5-14.5) % Plt Count 167 (120.0-450.0) 10^3/uL Gran % 90.7 H (50.0-68.0) % Lymph % (Auto) 7.0 L (22.0-35.0) % Mcnairy % (Auto) 2.3 (1.0-6.0) % Eos % (Auto) 0.0 L (1.5-5.0) % Baso % (Auto) 0.0 (0.0-3.0) % Gran # 4.30 (1.4-6.5) Lymph # (Auto) 0.3 L (1.2-3.4) Mcnairy # (Auto) 0.1 (0.1-0.6) Eos # (Auto) 0.0 (0.0-0.7) Baso # (Auto) 0.00 (0.0-2.0) K/mm3 Retic Count (0.5-1.5) % Sodium (132-148) mmol/L Potassium (3.6-5.0) mmol/L Chloride (98-107) mmol/L Carbon Dioxide (21-33) mmol/L Anion Gap (10-20) BUN (7-21) mg/dL Creatinine (0.8-1.5) mg/dl Est GFR ( Amer) Est GFR (Non-Af Amer) POC Glucose (mg/dL) 338 H (65-110) mg/dL Random Glucose (70-110) mg/dL Calcium (8.4-10.5) mg/dL Phosphorus (2.5-4.5) mg/dL Magnesium (1.7-2.2) mg/dL Iron (45-180) ug/dL TIBC (261-462) ug/dL % Saturation (20-55) % Total Bilirubin (0.2-1.3) mg/dL Direct Bilirubin (0.0-0.4) mg/dL AST (17-59) U/L ALT (7-56) U/L Alkaline Phosphatase (38-126) U/L Lactate Dehydrogenase (333-699) U/L NT-Pro-B Natriuret Pep 87813 H (0-450) pg/mL Total Protein (5.8-8.3) g/dL Albumin (3.0-4.8) g/dL Globulin gm/dL Albumin/Globulin Ratio (1.1-1.8) Blood Type Antibody Screen Crossmatch BBK History Checked 03/05/18 03/05/18 03/05/18 Range/Units 21:36 16:17 11:49 WBC (4.5-11.0) 10^3/ul RBC (3.5-6.1) 10^6/uL Hgb (14.0-18.0) g/dL Hct (42.0-52.0) % MCV (80.0-105.0) fl MCH (25.0-35.0) pg MCHC (31.0-37.0) g/dl RDW (11.5-14.5) % Plt Count (120.0-450.0) 10^3/uL Gran % (50.0-68.0) % Lymph % (Auto) (22.0-35.0) % Mcnairy % (Auto) (1.0-6.0) % Eos % (Auto) (1.5-5.0) % Baso % (Auto) (0.0-3.0) % Gran # (1.4-6.5) Lymph # (Auto) (1.2-3.4) Mcnairy # (Auto) (0.1-0.6) Eos # (Auto) (0.0-0.7) Baso # (Auto) (0.0-2.0) K/mm3 Retic Count 1.18 (0.5-1.5) % Sodium (132-148) mmol/L Potassium (3.6-5.0) mmol/L Chloride (98-107) mmol/L Carbon Dioxide (21-33) mmol/L Anion Gap (10-20) BUN (7-21) mg/dL Creatinine (0.8-1.5) mg/dl Est GFR ( Amer) Est GFR (Non-Af Amer) POC Glucose (mg/dL) 219 H 286 H (65-110) mg/dL Random Glucose (70-110) mg/dL Calcium (8.4-10.5) mg/dL Phosphorus (2.5-4.5) mg/dL Magnesium (1.7-2.2) mg/dL Iron (45-180) ug/dL TIBC (261-462) ug/dL % Saturation (20-55) % Total Bilirubin (0.2-1.3) mg/dL Direct Bilirubin (0.0-0.4) mg/dL AST (17-59) U/L ALT (7-56) U/L Alkaline Phosphatase (38-126) U/L Lactate Dehydrogenase (333-699) U/L NT-Pro-B Natriuret Pep (0-450) pg/mL Total Protein (5.8-8.3) g/dL Albumin (3.0-4.8) g/dL Globulin gm/dL Albumin/Globulin Ratio (1.1-1.8) Blood Type Antibody Screen Crossmatch BBK History Checked 03/03/18 Range/Units 11:00 WBC (4.5-11.0) 10^3/ul RBC (3.5-6.1) 10^6/uL Hgb (14.0-18.0) g/dL Hct (42.0-52.0) % MCV (80.0-105.0) fl MCH (25.0-35.0) pg MCHC (31.0-37.0) g/dl RDW (11.5-14.5) % Plt Count (120.0-450.0) 10^3/uL Gran % (50.0-68.0) % Lymph % (Auto) (22.0-35.0) % Mcnairy % (Auto) (1.0-6.0) % Eos % (Auto) (1.5-5.0) % Baso % (Auto) (0.0-3.0) % Gran # (1.4-6.5) Lymph # (Auto) (1.2-3.4) Mcnairy # (Auto) (0.1-0.6) Eos # (Auto) (0.0-0.7) Baso # (Auto) (0.0-2.0) K/mm3 Retic Count (0.5-1.5) % Sodium (132-148) mmol/L Potassium (3.6-5.0) mmol/L Chloride (98-107) mmol/L Carbon Dioxide (21-33) mmol/L Anion Gap (10-20) BUN (7-21) mg/dL Creatinine (0.8-1.5) mg/dl Est GFR ( Amer) Est GFR (Non-Af Amer) POC Glucose (mg/dL) (65-110) mg/dL Random Glucose (70-110) mg/dL Calcium (8.4-10.5) mg/dL Phosphorus (2.5-4.5) mg/dL Magnesium (1.7-2.2) mg/dL Iron (45-180) ug/dL TIBC (261-462) ug/dL % Saturation (20-55) % Total Bilirubin (0.2-1.3) mg/dL Direct Bilirubin (0.0-0.4) mg/dL AST (17-59) U/L ALT (7-56) U/L Alkaline Phosphatase (38-126) U/L Lactate Dehydrogenase (333-699) U/L NT-Pro-B Natriuret Pep (0-450) pg/mL Total Protein (5.8-8.3) g/dL Albumin (3.0-4.8) g/dL Globulin gm/dL Albumin/Globulin Ratio (1.1-1.8) Blood Type O POSITIVE Antibody Screen Negative Crossmatch See Detail BBK History Checked Patient has bt Laboratory Results - last 24 hr 03/03/18 03/05/18 03/05/18 11:00 11:49 16:17 WBC RBC Hgb Hct MCV MCH MCHC RDW Plt Count Gran % Lymph % (Auto) Mcnairy % (Auto) Eos % (Auto) Baso % (Auto) Gran # Lymph # (Auto) Mcnairy # (Auto) Eos # (Auto) Baso # (Auto) Retic Count 1.18 Sodium Potassium Chloride Carbon Dioxide Anion Gap BUN Creatinine Est GFR ( Amer) Est GFR (Non-Af Amer) POC Glucose (mg/dL) 286 H Random Glucose Calcium Phosphorus Magnesium Iron TIBC % Saturation Total Bilirubin Direct Bilirubin AST ALT Alkaline Phosphatase Lactate Dehydrogenase NT-Pro-B Natriuret Pep Total Protein Albumin Globulin Albumin/Globulin Ratio Blood Type O POSITIVE Antibody Screen Negative Crossmatch See Detail BBK History Checked Patient has bt 03/05/18 03/06/18 03/06/18 21:36 07:08 07:11 WBC RBC Hgb Hct MCV MCH MCHC RDW Plt Count Gran % Lymph % (Auto) Mcnairy % (Auto) Eos % (Auto) Baso % (Auto) Gran # Lymph # (Auto) Mcnairy # (Auto) Eos # (Auto) Baso # (Auto) Retic Count Sodium Potassium Chloride Carbon Dioxide Anion Gap BUN Creatinine Est GFR ( Amer) Est GFR (Non-Af Amer) POC Glucose (mg/dL) 219 H 338 H Random Glucose Calcium Phosphorus Magnesium Iron TIBC % Saturation Total Bilirubin Direct Bilirubin AST ALT Alkaline Phosphatase Lactate Dehydrogenase NT-Pro-B Natriuret Pep 80427 H Total Protein Albumin Globulin Albumin/Globulin Ratio Blood Type Antibody Screen Crossmatch BBK History Checked 03/06/18 03/06/18 03/06/18 08:00 08:00 09:50 WBC 4.7 D RBC 3.36 L Hgb 7.9 L Hct 24.7 L MCV 73.5 L MCH 23.5 L MCHC 32.0 RDW 19.1 H Plt Count 167 Gran % 90.7 H Lymph % (Auto) 7.0 L Mcnairy % (Auto) 2.3 Eos % (Auto) 0.0 L Baso % (Auto) 0.0 Gran # 4.30 Lymph # (Auto) 0.3 L Mcnairy # (Auto) 0.1 Eos # (Auto) 0.0 Baso # (Auto) 0.00 Retic Count Sodium 136 Potassium 3.2 L Chloride 93 L Carbon Dioxide 26 Anion Gap 21 H BUN 48 H Creatinine 2.9 H Est GFR ( Amer) 27 Est GFR (Non-Af Amer) 22 POC Glucose (mg/dL) Random Glucose 326 H* Calcium 8.4 Phosphorus 3.6 Magnesium 1.9 Iron 21 L TIBC 208 L % Saturation 10 L Total Bilirubin 0.5 Direct Bilirubin 0.5 H AST 24 ALT 26 Alkaline Phosphatase 81 Lactate Dehydrogenase NT-Pro-B Natriuret Pep Total Protein 5.1 L Albumin 3.0 Globulin 2.1 Albumin/Globulin Ratio 1.4 Blood Type Antibody Screen Crossmatch BBK History Checked 03/06/18 09:50 WBC RBC Hgb Hct MCV MCH MCHC RDW Plt Count Gran % Lymph % (Auto) Mcnairy % (Auto) Eos % (Auto) Baso % (Auto) Gran # Lymph # (Auto) Mcnairy # (Auto) Eos # (Auto) Baso # (Auto) Retic Count Sodium Potassium Chloride Carbon Dioxide Anion Gap BUN Creatinine Est GFR ( Amer) Est GFR (Non-Af Amer) POC Glucose (mg/dL) Random Glucose Calcium Phosphorus Magnesium Iron TIBC % Saturation Total Bilirubin Direct Bilirubin AST ALT Alkaline Phosphatase Lactate Dehydrogenase 1250 H NT-Pro-B Natriuret Pep Total Protein Albumin Globulin Albumin/Globulin Ratio Blood Type Antibody Screen Crossmatch BBK History Checked Critical Care Progress Note - Nutrition Nutrition: Nutrition Category Date Time Status Diabetic [Consistent Carbohydrate] [DIET] Diets 03/03/18 Dinner Ordered Assessment/Plan - Assessment and Plan (Free Text) Plan: Patient seen and examined on rounds with resident, agree with note with following additions/exceptions: Patient is 67 yo male w/PMHx of aortic valve replacement, anemia, renal transplant in 2006, hyperlipidemia, hypertension, insulin dependent diabetes, secondary hyperparathyroidism, polycystic kidney disease, chronic kidney disease, pulmonary hypertension admitted with metboalic acidosis 2/2 worsening renal failure, severe sepsis, initiated on HD on this admission. Currently afebrile, HD stable, comfortable in NAD Labs, imaging, chart reviewed HH stable today, no overt signs of bleeding, GI following ESRD n HD Anemia Hx renal transplant HTN IDDM Pulm HTN Recommend: - supp o2 as needed, duonebs PRN, - Broad spectrum abx as per ID, follow up cultures - hold BP meds - HD as per renal - monitor CBC - GI follow up - check Iron, TIBC, Ferritin, Folate, VitB12 levels - taper Solucortef 25mg Q12hr - FS control - resume diet - monitor electrolytes - DC bicarb drip - follow up cardio - outpatient follow up for AAA as per discussion with IR - GI ppx - DVT ppx, SCDs - monitor in MICU
[2018-03-06 08:17] LABS: GRAN % 90.7 % (50.0-68.0); HEMOGLOBIN 7.9 g/dL (14.0-18.0); LYMPH # 0.3 (1.2-3.4); MEAN CELL VOLUME 73.5 fl (80.0-105.0); MEAN CORPUSCULAR HEMOGLOBIN 23.5 pg (25.0-35.0); MONO # 0.1 (0.1-0.6); MONO % 2.3 % (1.0-6.0); PLATELET COUNT 167 10^3/uL (120.0-450.0); RBC 3.36 10^6/uL (3.5-6.1); RED CELL DISTRIBUTION WIDTH 19.1 % (11.5-14.5); WHITE BLOOD COUNT 4.7 10^3/ul (4.5-11.0)
[2018-03-06 08:42] LABS: ALB/GLOB RATIO 1.4 (1.1-1.8); BILIRUBIN,DIRECT 0.5 mg/dL (0.0-0.4); CALCIUM 8.4 mg/dL (8.4-10.5)
[2018-03-06] MEDS ORDERED: Potassium Chloride 20 mEq ER Tab PO ONE (09:17)
[2018-03-06] MEDS: Insulin Lispro (HUMAlog) HIGH Coverage SC SCH ×5 (09:22→22:09)
--- NOTE | 2018-03-06 09:44 | RAD ---
Date of service: 03/06/2018 HISTORY: tachypnea COMPARISON: Portable chest 03/05/2018. FINDINGS: LUNGS: Stable bilateral pleural effusions are identified, right greater than left. Underlying airspace disease is not excluded bilaterally, particularly the left retrocardiac space. Right hemidiaphragm remains elevated. Cardiac silhouette is stable including prosthetic cardiac valve and sternotomy wires. No pneumothorax bilaterally. PLEURA: As above. CARDIOVASCULAR: As above. OSSEOUS STRUCTURES: No significant abnormalities. VISUALIZED UPPER ABDOMEN: Normal. OTHER FINDINGS: Midline right PICC identified terminating at the right axilla. IMPRESSION: Stable bilateral pleural effusions, elevated right hemidiaphragm and potential underlying airspace disease left base as discussed above. No pulmonary vascular congestion or other significant interval change.
[2018-03-06 10:11] LABS: IRON 21 ug/dL (45-180)
[2018-03-06 10:20] LABS: % IRON SATURATION 10 % (20-55); TOTAL IRON BINDING CAPACITY 208 ug/dL (261-462)
--- NOTE | 2018-03-06 10:22 | CP.PCM.PN ---
Addendum entered by Mac Cordova MD 03/08/18 18:18: This is a delayed addendum: Awaiting for the vascular surgical evaluation for the large AAA Aortic stenosis being evaluated by cardiology Continue antibiotics as per ID as per SIRS HCT stable conservation management No endoscopic intervention planned Recommend low dose PPI therapy Will sign off and re-consult as needed Thank you very much for allowing us to participate in the care of the patient Original Note: <Dave Sifuentes - Last Filed: 03/06/18 10:18> Subjective - Date & Time of Evaluation Date of Evaluation: 03/06/18 Time of Evaluation: 10:18 - Subjective Subjective: Patient looks improved today, less SOB, tired. Patient denies vomiting, bleeding. Admits brown stool. Discussed with nursing, no GI concerns presently. Objective - Vital Signs/Intake and Output Vital Signs (last 24 hours): Temp Pulse Resp BP Pulse Ox 98.5 F 119 H 37 H 131/75 100 03/06/18 05:42 03/06/18 06:50 03/06/18 06:50 03/06/18 06:00 03/06/18 06:50 Intake and Output: 03/06/18 03/06/18 06:59 18:59 Intake Total 1020 Output Total 0 Balance 1020 - Medications Medications: Current Medications Acetaminophen (Tylenol 325mg Tab) 650 mg PO Q6 PRN PRN Reason: TEMP>=99.5F Acetaminophen (Tylenol 650 Mg Supp) 650 mg RC Q6H PRN PRN Reason: TEMP>=99.5F Acetaminophen (Tylenol 650 Mg Supp) 650 mg RC Q6H PRN PRN Reason: Headache Acetaminophen (Tylenol 325mg Tab) 650 mg PO Q6H PRN PRN Reason: Headache Atorvastatin Calcium (Lipitor) 20 mg PO DIN [facility] Last Admin: 03/05/18 20:08 Dose: 20 mg Benzonatate (Tessalon Perles) 200 mg PO TID [facility] Last Admin: 03/05/18 20:02 Dose: 200 mg Calcitriol (Rocaltrol) 0.5 mcg PO DAILY [facility] Last Admin: 03/05/18 10:44 Dose: 0.5 mcg Calcium Acetate (Phoslo) 667 mg PO WM [facility] Last Admin: 03/06/18 07:30 Dose: 667 mg Calcium Carbonate (Oscal) 500 mg PO BID [facility] Last Admin: 03/05/18 20:08 Dose: 500 mg Cinacalcet (Sensipar) 30 mg PO DAILY [facility] Docusate Sodium (Colace) 100 mg PO TID [facility] Last Admin: 03/05/18 20:02 Dose: 100 mg Ezetimibe (Zetia) 10 mg PO DAILY [facility] Last Admin: 03/06/18 09:43 Dose: Not Given Ferrous Gluconate (Fergon) 324 mg PO BID [facility] Last Admin: 03/05/18 20:08 Dose: 324 mg Hydrocortisone Sodium Succinate (Solu-Cortef) 25 mg IVP Q12 [facility] Doxycycline Hyclate 100 mg/ (Sodium Chloride) 100 mls @ 100 mls/hr IVPB Q12 [facility]; Protocol Last Admin: 03/05/18 22:01 Dose: 100 mls/hr Meropenem 500 mg/ Sodium (Chloride) 50 mls @ 100 mls/hr IVPB Q24H [facility]; Protocol Stop: 03/10/18 22:46 Last Admin: 03/05/18 21:59 Dose: 100 mls/hr Insulin Human Lispro (Humalog High) 0 units SC ACHS [facility]; Protocol Last Admin: 03/06/18 09:22 Dose: 10 u Levalbuterol HCl (Xopenex) 0.63 mg IH [id number] [facility] Last Admin: 03/06/18 07:17 Dose: 0.63 mg Midodrine (Proamatine) 5 mg PO TID [facility] Last Admin: 03/05/18 20:02 Dose: 5 mg Ondansetron HCl (Zofran Inj) 4 mg IVP Q4H PRN PRN Reason: Nausea/Vomiting Pantoprazole Sodium (Protonix Ec Tab) 40 mg PO 0600 [facility] Last Admin: 03/06/18 07:39 Dose: 40 mg Polyethylene Glycol (Miralax) 17 gm PO BID [facility] Last Admin: 03/05/18 20:07 Dose: 17 gm Tacrolimus (Prograf Cap) 1 mg PO QPM [facility] Last Admin: 03/05/18 20:08 Dose: 1 mg Tacrolimus (Prograf Cap) 2 mg PO QAM [facility] Last Admin: 03/05/18 10:46 Dose: 2 mg - Labs Labs: 03/06/18 08:00 03/06/18 08:00 PT 12.8 SECONDS (9.4-12.5) H 03/03/18 10:20 INR 1.11 03/03/18 10:20 APTT 27.9 Seconds (25.1-36.5) 03/03/18 10:20 - Constitutional Appears: Non-toxic, No Acute Distress, Cachectic, Chronically Ill - Head Exam Head Exam: NORMAL INSPECTION - Eye Exam Eye Exam: EOMI, Normal appearance - ENT Exam ENT Exam: Mucous Membranes Moist - Respiratory Exam Respiratory Exam: Clear to Ausculation Bilateral, NORMAL BREATHING PATTERN - Cardiovascular Exam Cardiovascular Exam: REGULAR RHYTHM, +S1, +S2 - GI/Abdominal Exam GI & Abdominal Exam: Soft, Normal Bowel Sounds. absent: Tenderness - Neurological Exam Neurological Exam: Alert, Awake, Oriented x3 - Psychiatric Exam Psychiatric exam: Normal Affect, Normal Mood - Skin Skin Exam: Dry, Normal Color Assessment and Plan - Assessment and Plan (Free Text) Assessment: #Chronic Anemia #Hypotension #PCKD s/p transplant 2017 #AAA ~8cm #T2DM #AVR #HTN #Pulmonary HTN #CHF PLAN: -s/p 1 unit pRBCs -Continue care per ICU and medical team -Now on Dialysis -Continue to transfuse blood for Hb less than 7. Reportedly receives blood fr equently for recurrent anemia. -No signs of GI bleeding at this time. Rectal exam on admission showed light brown stool. -Recommend Colonoscopy as outpatient after AAA addressed -EGD in [facility] 2016 was mostly unremarkable, minimal gastritis. <Art,Kovil V - Last Filed: 03/06/18 22:54> Objective - Vital Signs/Intake and Output Vital Signs (last 24 hours): Temp Pulse Resp BP Pulse Ox 99.1 F 103 H 29 H 166/92 H 100 03/06/18 21:24 03/06/18 21:24 03/06/18 21:24 03/06/18 21:24 03/06/18 19:00 Intake and Output: 03/06/18 03/07/18 18:59 06:59 Intake Total 0 1095 Output Total 770 Balance 0 325 - Medications Medications: Current Medications Acetaminophen (Tylenol 325mg Tab) 650 mg PO Q6 PRN PRN Reason: TEMP>=99.5F Acetaminophen (Tylenol 650 Mg Supp) 650 mg RC Q6H PRN PRN Reason: TEMP>=99.5F Acetaminophen (Tylenol 650 Mg Supp) 650 mg RC Q6H PRN PRN Reason: Headache Acetaminophen (Tylenol 325mg Tab) 650 mg PO Q6H PRN PRN Reason: Headache Atorvastatin Calcium (Lipitor) 20 mg PO DIN [facility] Last Admin: 03/06/18 18:10 Dose: 20 mg Benzonatate (Tessalon Perles) 200 mg PO TID [facility] Last Admin: 03/06/18 18:03 Dose: Not Given Calcitriol (Rocaltrol) 0.5 mcg PO DAILY [facility] Last Admin: 03/06/18 14:31 Dose: Not Given Calcium Acetate (Phoslo) 667 mg PO WM [facility] Last Admin: 03/06/18 18:11 Dose: 667 mg Calcium Carbonate (Oscal) 500 mg PO BID [facility] Last Admin: 03/06/18 18:09 Dose: 500 mg Cinacalcet (Sensipar) 30 mg PO DAILY [facility] Docusate Sodium (Colace) 100 mg PO TID [facility] Last Admin: 03/06/18 18:01 Dose: Not Given Ezetimibe (Zetia) 10 mg PO DAILY [facility] Last Admin: 03/06/18 09:43 Dose: Not Given Ferrous Gluconate (Fergon) 324 mg PO BID [facility] Last Admin: 03/06/18 18:10 Dose: 324 mg Hydrocortisone Sodium Succinate (Solu-Cortef) 25 mg IVP Q12 [facility] Last Admin: 03/06/18 22:11 Dose: 25 mg Doxycycline Hyclate 100 mg/ (Sodium Chloride) 100 mls @ 100 mls/hr IVPB Q12 [facility]; Protocol Last Admin: 03/06/18 22:20 Dose: 100 mls/hr Meropenem 500 mg/ Sodium (Chloride) 50 mls @ 100 mls/hr IVPB Q24H [facility]; Protocol Stop: 03/10/18 22:46 Last Admin: 03/05/18 21:59 Dose: 100 mls/hr Insulin Human Lispro (Humalog High) 0 units SC ACHS [facility]; Protocol Last Admin: 03/06/18 22:09 Dose: Not Given Lactic Acid (Lac-Hydrin 12% Lotion (225 G)) 0 gm EXT TID [facility] Last Admin: 03/06/18 18:08 Dose: 1 applic Levalbuterol HCl (Xopenex) 0.63 mg IH [id number] [facility] Last Admin: 03/06/18 20:01 Dose: 0.63 mg Metoprolol Tartrate (Lopressor) 25 mg PO BID [facility] Last Admin: 03/06/18 18:10 Dose: 25 mg Midodrine (Proamatine) 5 mg PO TID [facility] Last Admin: 03/06/18 18:03 Dose: Not Given Ondansetron HCl (Zofran Inj) 4 mg IVP Q4H PRN PRN Reason: Nausea/Vomiting Pantoprazole Sodium (Protonix Ec Tab) 40 mg PO 0600 [facility] Last Admin: 03/06/18 07:39 Dose: 40 mg Polyethylene Glycol (Miralax) 17 gm PO BID [facility] Last Admin: 03/06/18 18:02 Dose: Not Given Tacrolimus (Prograf Cap) 1 mg PO QPM [facility] Last Admin: 03/06/18 18:09 Dose: 1 mg Tacrolimus (Prograf Cap) 2 mg PO QAM [facility] Last Admin: 03/06/18 14:30 Dose: 2 mg - Labs Labs: 03/06/18 16:30 03/06/18 18:39 PT 12.8 SECONDS (9.4-12.5) H 03/03/18 10:20 INR 1.11 03/03/18 10:20 APTT 27.9 Seconds (25.1-36.5) 03/03/18 10:20 Attending/Attestation - Attestation I have personally seen and examined this patient.: Yes I have fully participated in the care of the patient.: Yes I have reviewed all pertinent clinical information, including history, physical exam and plan: Yes Notes (Text): This is an addendum to GI progress report dictated by the GI Fellow.The patient was seen and examined earlier. Medical records, lab studies, imagings were reviewed. Last 24 hours events reviewed. Agreed with the above treatment plan as outlined in GI Fellow 's notes with the addition of the following Hb in AM was 7.6 Status post 1 unit packed RBC Discussed with ICU resident Previous EGD report reviewed Unless active bleeding would not recommend colonoscopy at this point Awaiting for large AAA 03/06/18 22:52
--- NOTE | 2018-03-06 11:24 | PN ---
DATE: 03/06/2018 SUBJECTIVE: The patient was seen lying in the bed in ICU, bed 2. The patient is awake, responsive. Overnight nurse's notes were reviewed. The patient was found to have episodic confusion according to the nurses. PHYSICAL EXAMINATION: VITAL SIGNS: T-max is 98.2-99.2. Telemetry shows sinus tachycardia, heart rate in the low 110s-120s. Blood pressure 131/75, 128/75, 131/82, 146/71; respirations 20, 23, 47; O2 sat 99-100%. HEENT: Head examination normocephalic, atraumatic. HEENT examination shows pale conjunctivae. Anicteric sclerae. No oropharyngeal lesion. No neck rigidity. CHEST: Showed median sternotomy surgical scar positive. LUNGS: Shows questionable decreased breath sound at the bases. CARDIOVASCULAR: S1, S2. Tachycardic rhythm. Positive systolic murmur, left sternal border, left second intercostal space, right second intercostal space. ABDOMEN: Soft, slightly protuberant. Positive pulsation in the mid abdomen noted. GENITALIA: Male. EXTREMITIES: Positive left upper extremity AV fistula. Positive swelling of the lower extremity noted. Positive poor foot hygiene noted. Gait examination is not tested. MUSCULOSKELETAL: Body mass index is incorrectly documented at 7.9 kg. DIAGNOSTICS: On 03/06/2018, hemoglobin and hematocrit 7.9 and 24.7, platelet 167. Granulocytes 91% segs. Sodium 136, potassium of 3.2, chloride 93, CO2 of 26, anion gap 21, BUN 48, creatinine 2.9, GFR 27, glucose 326, calcium 8.4, phosphorus 3.6, magnesium 1.9, iron 21, TIBC 208, saturation 10, LDH is 1250. Chest x-ray was done today, which shows bilateral pleural effusion, elevated right hemidiaphragm, left lower lobe possible pneumonia infiltrate. IMPRESSION AND PLAN: 1. Systemic inflammatory response syndrome. 2. Low-grade fever. 3. Sinus tachycardia. 4. Hypertension. 5. Tachypnea. 6. Tachycardia. 7. Hypertension. 8. Leukopenia. 9. Microcytic anemia with decreasing hemoglobin and hematocrit. 10. Granulocytosis. 11. Increased anion gap metabolic acidosis and lactic acidosis. 12. Status post non-hemolyzed hyperkalemia, now hypokalemia. 13. Insulin-requiring diabetes mellitus with hemoglobin A1c of 10.4. 14. Questionable iron deficiency. 15. Intermittent hemodialysis-requiring renal failure. 16. Increased anion gap metabolic acidosis. 17. Possible diastolic congestive heart failure with elevated BNP. 18. Hyperprocalcitoninemia. 19. Protein malnutrition. 20. Hypoalbuminemia. 21. Bilateral lower extremity venous stasis. 22. Secondary hyperparathyroidism with elevated PTH level of greater than 469. 23. Status post 1 unit PRBC transfusion. 24. Status post right upper extremity midline placement. 25. Bilateral pleural effusion, right more than the left. 26. Questionable left lower lobe pneumonia with elevated right hemidiaphragm. 27. Status post aortic valve replacement. 28. Pulmonary vascular congestion. 29. Hypoproliferative erythroid response. 30. Anemia of chronic disease. 31. Mycotic elongated toenails, status post debridement. 32. Poor hygienic status. 33. Acute kidney injury with underlying chronic kidney disease, status post renal transplant and history of intermittent history of end-stage renal disease, hemodialysis dependent in the past. 1. Systemic inflammatory response syndrome secondary to uremia and acute renal failure. 2. Hypotension. 3. Tachycardia. 4. Tachypnea. 5. Leukopenia. 6. Anemia. 7. Granulocytosis. 8. Increased anion gap metabolic acidosis and lactic acidosis. 9. Severe metabolic acidosis. 10. Questionable uncontrolled type 1 diabetes mellitus with hemoglobin A1c of 10.4. 11. Secondary hyperparathyroidism with elevated PTH level. 12. Hyperprocalcitoninemia. 13. Non-hemolyzed hyperkalemia. 14. Hyponatremia. 15. Hyperglycemia. 16. Hyperphosphatemia. 17. Proteinuria. 18. Bacteriuria. 19. Questionable left lower lobe pneumonia. 20. Bilateral pleural effusion. 21. Cardiomegaly. 22. Aortic valve replacement. 23. Left axis deviation. 24. History of polycystic kidney disease. 25. Abdominal aortic aneurysm. 26. Mycotic elongated toenails and xerostomia. 27. Status post bilateral feet toenail debridement. 28. Pulmonary hypertension. 29. Possible questionable sepsis versus systemic inflammatory response syndrome. 30. Status post renal transplant, on immunosuppression. 31. Insulin-requiring diabetes mellitus. 32. Deconditioning. 33. Hypocalcemia. 1. Hypotensive shock versus questionable septic shock with hyperprocalcitoninemia. 2. History of polycystic kidney disease, history of renal transplant. 3. Lactic acidosis. 4. Increased anion gap metabolic acidosis. 5. Tachycardia. 6. Tachypnea. 7. Leukopenia, anemia. 8. Granulocytosis. 9. Lactic acidosis. 10. Increased anion gap metabolic acidosis. 11. Severe metabolic acidosis. 12. Hyponatremia. 13. Status post hyperkalemia. 14. Hemodialysis requiring renal failure. 15. Hypocalcemia. 16. Hyperphosphatemia. 17. Hypomagnesemia. 18. Protein malnutrition. 19. Hypoalbuminemia. 20. Secondary hyperparathyroidism with elevated PTH of 469. 21. Hyperprocalcitoninemia. 22. Right upper lobe pneumonia. 23. Bibasilar atelectasis and bilateral pleural effusion. 24. Status post aortic valve replacement. 25. Status post aortic valve replacement with proximal aortic valve graft. 26. Descending aortic aneurysm. 27. Bilateral pleural effusion, left more than the right. 28. Dilated esophagus. 29. Multiple hepatic cyst and masses. 30. Gallbladder distention. 31. Polycystic kidney disease. 32. An 8.3-cm infrarenal abdominal aortic aneurysm. 33. Chronic infrarenal abdominal aortic dissection at and below the level of the renal arteries. 34. Diverticulosis of the colon. 35. Hydronephrosis of the transplanted kidney. 36. Polycystic kidney disease. 37. Left axis deviation. 38. Coronary ischemic changes. 39. 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 40. Acute renal failure with acute kidney injury with underlying chronic kidney disease and possible failing transplanted renal allograft. 41. Questionable and possible septic versus hypovolemic and hypotensive shock. 42. High anion gap metabolic acidosis. 1. Severe symptomatic hypotension. 2. Severe symptomatic anemia with symptoms of fatigue, tiredness, shortness of breath and dyspnea on exertion. 3. Worsening renal failure with worsening chronic kidney disease. 4. Hyponatremia. 5. Hyperkalemia. 6. Anemia of chronic kidney disease with iron-deficiency anemia. 7. Granulocytosis. 8. Lymphocytopenia. 9. Hyponatremia. 10. Non-hemolyzed hyperkalemia. 11. Increased anion gap metabolic acidosis. 12. History of end-stage renal disease, hemodialysis dependent in the past with status post renal transplant. 13. Insulin-requiring diabetes mellitus with hyperglycemia. 14. Hypocalcemia. Plan at this time, the patient has been ordered serial labs. Fructosamine GlycoMark pending. The patient's CBC has been ordered. The patient has been ordered transfusion of 1 unit of PRBC. The patient has been ordered one more unit of PRBC. Current consultation: Nephrology, Cardiology. The patient's echocardiogram result is pending. The patient has received Aranesp 100 mcg, Colace 100 three times a day, Vibramycin 100 mg every 12 IV, Fergon 324 twice a day, insulin high-dose sliding scale coverage. The patient was ordered a dose of potassium by the medical screener 40 mEq. The patient is started on Lac-Hydrin lotion three times a day, Lipitor 20 mg daily, Lopressor started at 25 twice a day, meropenem 500 IV every 12, MiraLax 17 g twice a day, Os-Krystian 500 twice a day, PhosLo 667 mg with meals, ProAmatine 5 mg three times a day, Prograf 1 mg p.m. and 2 mg a.m., Protonix 40 daily, Rocaltrol 0.5 mcg daily, Sensipar 30 mg daily. The patient is on hydrocortisone now, taper down to 25 mg IV every 12; Tessalon Perles 200 three times a day; Tylenol p.r.n.; Xopenex nebulizer 0.63 mg every 6 hours; Zetia 10 mg daily; Zofran 4 mg IV every four p.r.n. The patient has been ordered out of bed, chest physical therapy, incentive spirometry, fingerstick blood sugar, transfusion of one more unit of PRBC ordered today to keep hemoglobin around 8 and 8.5 g. The patient was seen by Hematology/Oncology yesterday. Their recommendations were noted. Hematology advises avoid iron infusion, transfusion support p.r.n. The patient's case discussed with Dr. Carlos Shane. Depending upon the patient's echocardiogram report, the patient may need further cardiac intervention depending upon the patient's cardiology evaluation by Dr. Shane and the echocardiogram report, which will be informed and updated to the patient by Dr. Carlos Shane. Time spent in the management 35 minutes or more. Dictated and electronically signed, not read. Mart Knox MD [facility]
--- NOTE | 2018-03-06 12:23 | CON ---
DATE: 03/05/2018 HISTORY OF PRESENT ILLNESS: The patient is a 67-year-old male who was admitted for general malaise and hypotension. The patient has been found to be borderline hypotensive. His transplanted kidneys have progressed and has failed. He complains of dyspnea as well as general malaise. The patient's past medical history includes history of end-stage renal disease treated with kidney transplantation. He is currently back on dialysis because of renal failure. In addition, the patient is status post aortic valve replacement more than 10 years ago at [facility]. He denies chest pain. His dyspnea is chronic. His past medical history besides what was mentioned above, also includes hypertension, hypercholesterolemia and diabetes mellitus. SOCIAL HISTORY: Denies smoking. REVIEW OF SYSTEMS: A 14-point review of systems is reviewed in detail. There are no additional symptoms other than what was mentioned above. PHYSICAL EXAMINATION: VITAL SIGNS: On physical exam, the blood pressure is 131/75, the heart rate is 100-110. NECK: Negative JVD. LUNGS: 2/6 systolic ejection murmur. EXTREMITIES: Without murmurs. His EKG shows abnormal ST-T changes. Hemoglobin is 7.9. Chemistries, BUN and creatinine is 21 and 2.9, potassium is 3.2. The glucose is 326. Echocardiogram reveals critical prosthetic valve stenosis with peak gradient of over [address] scan of the abdomen reveals an 8 cm abdominal aneurysm, which is unchanged from his previous. IMPRESSION: 1. Critical aortic stenosis of a bioprosthetic valve. 2. End-stage renal disease with failure of his transplanted kidneys which is now requiring dialysis. 3. Chronic abdominal aneurysm up to 8 cm. 4. Diabetes mellitus. 5. Hypertension. 6. Hypercholesterolemia. 7. Anemia. Given these findings, we cannot consider vascular repair of his abdominal aneurysm yet until his aortic valve stenosis is addressed. I have discussed with the patient about the potential for valve and transcatheter aortic valve replacement . If the patient is agreeable to proceed in that direction, we will need to rule out coronary disease with cardiac catheterization in the morning prior to proceeding. I have discussed the risks with the patient in detail. We will offer him the option. Carlos Shane MD [facility] # [id number]
[2018-03-06] MEDS: POLYETHYLENE GLYCOL 3350 17 GM/Dose PACKET PO SCH ×2 (13:35→18:02)
[2018-03-06] MEDS: Ammonium Lactate 12% Lotion (225 g) EXT SCH ×2 (14:27→18:08)
--- NOTE | 2018-03-06 15:29 | CP.PCM.PN ---
<Rafael Faye R - Last Filed: 03/06/18 15:16> Subjective - Date & Time of Evaluation Date of Evaluation: 03/06/18 Time of Evaluation: 10:00 - Subjective Subjective: PGY-[address] Knox No acute events noted overnight. Per nursing note patient was confused at times last night. However to functional tester typewriters patient was AAOx3. Stated he was doing okay overall. Asked when he could go home. Denied discomfort. Scheduled for 3rd round of HD later today. Objective - Vital Signs/Intake and Output Vital Signs (last 24 hours): Temp Pulse Resp BP Pulse Ox 98.5 F 116 H 49 H 149/85 100 03/06/18 05:42 03/06/18 14:29 03/06/18 12:13 03/06/18 14:29 03/06/18 12:00 Intake and Output: 03/06/18 03/06/18 06:59 18:59 Intake Total 1020 Output Total 0 Balance 1020 - Medications Medications: Current Medications Acetaminophen (Tylenol 325mg Tab) 650 mg PO Q6 PRN PRN Reason: TEMP>=99.5F Acetaminophen (Tylenol 650 Mg Supp) 650 mg RC Q6H PRN PRN Reason: TEMP>=99.5F Acetaminophen (Tylenol 650 Mg Supp) 650 mg RC Q6H PRN PRN Reason: Headache Acetaminophen (Tylenol 325mg Tab) 650 mg PO Q6H PRN PRN Reason: Headache Atorvastatin Calcium (Lipitor) 20 mg PO DIN [facility] Last Admin: 03/05/18 20:08 Dose: 20 mg Benzonatate (Tessalon Perles) 200 mg PO TID [facility] Last Admin: 03/06/18 14:31 Dose: Not Given Calcitriol (Rocaltrol) 0.5 mcg PO DAILY [facility] Last Admin: 03/06/18 14:31 Dose: Not Given Calcium Acetate (Phoslo) 667 mg PO WM [facility] Last Admin: 03/06/18 12:25 Dose: 667 mg Calcium Carbonate (Oscal) 500 mg PO BID [facility] Last Admin: 03/06/18 14:30 Dose: Not Given Cinacalcet (Sensipar) 30 mg PO DAILY [facility] Docusate Sodium (Colace) 100 mg PO TID [facility] Last Admin: 03/06/18 14:36 Dose: Not Given Ezetimibe (Zetia) 10 mg PO DAILY [facility] Last Admin: 03/06/18 09:43 Dose: Not Given Ferrous Gluconate (Fergon) 324 mg PO BID [facility] Last Admin: 03/06/18 14:29 Dose: Not Given Hydrocortisone Sodium Succinate (Solu-Cortef) 25 mg IVP Q12 [facility] Last Admin: 03/06/18 14:01 Dose: 25 mg Doxycycline Hyclate 100 mg/ (Sodium Chloride) 100 mls @ 100 mls/hr IVPB Q12 [facility]; Protocol Last Admin: 03/06/18 14:36 Dose: 100 mls/hr Meropenem 500 mg/ Sodium (Chloride) 50 mls @ 100 mls/hr IVPB Q24H [facility]; Protocol Stop: 03/10/18 22:46 Last Admin: 03/05/18 21:59 Dose: 100 mls/hr Insulin Human Lispro (Humalog High) 0 units SC ACHS [facility]; Protocol Last Admin: 03/06/18 12:21 Dose: Not Given Lactic Acid (Lac-Hydrin 12% Lotion (225 G)) 0 gm EXT TID [facility] Last Admin: 03/06/18 14:27 Dose: 1 dose Levalbuterol HCl (Xopenex) 0.63 mg IH [id number] [facility] Last Admin: 03/06/18 13:14 Dose: Not Given Metoprolol Tartrate (Lopressor) 25 mg PO BID [facility] Last Admin: 03/06/18 14:29 Dose: 25 mg Midodrine (Proamatine) 5 mg PO TID [facility] Last Admin: 03/06/18 14:30 Dose: Not Given Ondansetron HCl (Zofran Inj) 4 mg IVP Q4H PRN PRN Reason: Nausea/Vomiting Pantoprazole Sodium (Protonix Ec Tab) 40 mg PO 0600 [facility] Last Admin: 03/06/18 07:39 Dose: 40 mg Polyethylene Glycol (Miralax) 17 gm PO BID [facility] Last Admin: 03/06/18 13:35 Dose: Not Given Tacrolimus (Prograf Cap) 1 mg PO QPM [facility] Last Admin: 03/05/18 20:08 Dose: 1 mg Tacrolimus (Prograf Cap) 2 mg PO QAM [facility] Last Admin: 03/06/18 14:30 Dose: 2 mg - Labs Labs: 03/06/18 08:00 03/06/18 08:00 PT 12.8 SECONDS (9.4-12.5) H 03/03/18 10:20 INR 1.11 03/03/18 10:20 APTT 27.9 Seconds (25.1-36.5) 03/03/18 10:20 - Additional Findings Additional findings: - Constitutional Appears: Cachectic - Head Exam Head Exam: ATRAUMATIC, NORMAL INSPECTION - Eye Exam Eye Exam: EOMI, Normal appearance, PERRL. absent: Scleral icterus - ENT Exam ENT Exam: Mucous Membranes Moist - Respiratory Exam Respiratory Exam: Chest Wall Tenderness, Clear to Auscultation Bilateral. absent: Rales, Rhonchi, Wheezes - Cardiovascular Exam Cardiovascular Exam: REGULAR RHYTHM, +S1, +S2, Systolic Murmur. absent: Tachycardia - GI/Abdominal Exam GI & Abdominal Exam: Normal Bowel Sounds, Soft. absent: Distended, Firm, Guarding, Tenderness - Extremities Exam Extremities exam: Positive for: full ROM, normal inspection. Negative for: calf tenderness - Neurological Exam Neurological exam: Alert, CN II-XII Intact, Oriented x3, Reflexes Normal - Skin Skin Exam: Normal Color, Warm, hyperpigmentosis on dorsal surface of feet bilaterally Assessment and Plan - Assessment and Plan (Free Text) Plan: Mr Goodwin is a 67 year old male with a PMHx of polycystic kidney disease s/p kidney transplant in 2006, insulin dependent diabetes, aortic valve replacement, anemia, hyperlipidemia, hypertension, secondary hyperparathyroidism, chronic kidney disease, pulmonary hypertension, diastolic congestive heart failure, cachexia, and abdominal aortic aneurysm, who presents for fatigue and weakness for the past 7 days: MYRNA on CKD Chronic Kidney Disease Stage IV Failing Transplanted Kidney -Failing transplanted kidney and superimposed ATN in setting of severe sepsis -Nephrology consult, Dr Wheeler * Patient dialyzed 03/04 - 2hr HD session using low blood flow to prevent dialysis dysequilibrium, high bicarb dialysate, keeping positive net fluid balance; Plan to do the same 03/05 * Plan to transfuse 2u pRBCs during dialysis for acute drop in Hgb -Renal Ultrasound: * Although the hydronephrosis within the transplant kidney is a new finding compared to the prior ultrasound performed 02/16/2014 it was present with similar degree on the prior CT scan 02/27/2017 compared to the current CT scan. Therefore I do not believe this represents acute obstructive uropathy. 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 Stable polycystic kidney disease. Severe Sepsis Stable Infiltrate Right Upper Lobe -Suspecting pneumonia at this point -CT chest/abd/pelvis w/o contrast: * Stable infiltrate right upper lobe. -Procalcitonin elevated 150, downtrending -Infectious Disease consult, Dr Squires -Blood Cx 03/03 negative to date -F/U Urine Cx -CPT, incentive spirometer q2h, nasal cannula 2L prn -Benzonatate 200mg po tid -Doxycycline 100mg ivpb q12h -Meropenem 500mg ivpb q24h (renal dose) -Levalbuterol 0.63mg IH Q6H Symptomatic Anemia -Hgb 8.8 on admission * Hgb dropped to 6.4 * Transfuse 2u pRBCs during dialysis 03/05 -GI bleed vs anemia of CKD -Consult GI, Dr Cordova, for questionable GI bleed * Recommending Colonoscopy as outpatient after AAA addressed * EGD in [facility] was mostly unremarkable -Avoid IV iron due to sepsis -Aranesp given once 100mcg ivp 03/05 -Ferrous Gluconate 324mg po bid (home med) -F/U FOBT Hypotension -2/2 to severe sepsis -Monitor in ICU -1/2NS with sodium bicarb 75meq @ 75mls/hr -Midodrine 5mg po tid -Hold all home antihypertensives Status Post Renal Transplant -Heme/Onc consult, Dr Leigh -Tacrolimus level 15.5 -Tacrolimus 2mg po Qam, 1mg po Qpm -Holding MMF in the setting of severe sepsis, will restart once improved Abdominal Aortic Aneurysm -Stable but concern for spontaneous rupture -CT chest/abd/pelvis w/o contrast: * Stable infrarenal abdominal aortic aneurysm. Mean axial diameter 8.3 cm. Cephalocaudal dimension 13.1 cm. -Patient was to have repair this past year which was cancelled due to lab abnormalities - it seems patient never followed-up -GI recommending repair prior to colonoscopy Critical Aortic Stenosis of Bioprosthetic Valve -Echo showed critical aortic stenosis, pending official report -Consult cardio, Dr Shane * Cannot consider vascular repair of his AAA until his aortic valve stenosis is addressed Chronic Kidney Disease - Mineral and Bone Disorder -PTH intact 469, Phosphorus 5.4 on admission, Corrected Ca 7.1 on admission -Calcitriol 0.5mcg po qd -Calcium carbonate 1000mg po q6h -Phoslo 667mg po wm -Cinacalcet 30mg po qd Acute on Chronic CHF -ProBNP -Echo 07/2017 showed LVH, grade 1 abnormal relaxation patter, normal EF -Metoprolol tartrate 25mg po bid -Will not give diuretics 2/2 to hypotension -Is/Os, maintain head of bed 30 degrees, daily weights Small Bilateral Pleural Effusions -CT chest/abd/pelvis w/o contrast: * New small bilateral pleural effusions with associated compressive atelectasis. -Possibly 2/2 acute on chronic CHF Metabolic Acidosis -2/2 uremia -Ph 7.27 on vbg on admission -1/2NS with sodium bicarb 75meq @ 75mls/hr Elevated Lactate on VBG, Resolved -F/U Urine Cx -Blood Cx 03/03 negative to date IDDM2 -HgbA1c 10.4 -RISS high dose SC AC; high dose necessary due to being on steroids -Accuchecks ACHS HLD -Atorvastatin 20mg po din -Ezetimibe 10mg po qd (home med) Mycotic Elongated Toenails -Podiatry consult, Dr Aragon * Toenails debrided use sterile nail nipper Prophylaxis -Protonix 40mg po qd -Consistent carb diet -SCDs -OT, PT, ST <Lisette,Mart U - Last Filed: 03/11/18 22:13> Objective - Vital Signs/Intake and Output Vital Signs (last 24 hours): Temp Pulse Resp BP Pulse Ox 98.9 F 81 32 H 120/72 92 L 03/10/18 08:00 03/10/18 16:00 03/10/18 16:00 03/10/18 16:00 03/10/18 16:00 - Labs Labs: 03/10/18 06:50 03/10/18 06:50 PT 12.8 SECONDS (9.4-12.5) H 03/03/18 10:20 INR 1.11 03/03/18 10:20 APTT 27.9 Seconds (25.1-36.5) 03/03/18 10:20 Attending/Attestation - Attestation I have personally seen and examined this patient.: Yes I have fully participated in the care of the patient.: Yes I have reviewed all pertinent clinical information, including history, physical exam and plan: Yes Notes (Text): Please see/read my dictated notes.
--- NOTE | 2018-03-06 16:25 | US ---
HISTORY: Arm pain and swelling. Evaluate for deep venous thrombosis. PHYSICIAN(S): Carlos Fulton MD. FINDINGS: The visualized internal jugular veins are sonographically normal and compressible. No evidence of obstruction or thrombus this is seen. The visualized segments of the subclavian veins are patent with normal waveforms. No sonographic evidence of obstruction or thrombosis is seen. The visualized deep venous systems of both upper extremities proximally are sonographically normal and compressible. A central catheter is appreciated in the right upper extremity without significant associated thrombus IMPRESSION: 1. No sonographic evidence for deep venous thrombosis in the visualized segments of both upper strategies.
[2018-03-06 16:57] LABS: HEMOGLOBIN 7.6 g/dL (14.0-18.0); MEAN CELL VOLUME 74.4 fl (80.0-105.0); MEAN CORPUSCULAR HEMOGLOBIN 23.5 pg (25.0-35.0); MEAN CORPUSCULAR HGB CONC 31.5 g/dl (31.0-37.0); PLATELET COUNT 134 10^3/uL (120.0-450.0); RBC 3.24 10^6/uL (3.5-6.1); WHITE BLOOD COUNT 5.1 10^3/ul (4.5-11.0)
--- NOTE | 2018-03-06 17:13 | CARD ---
APPROVED REPORT Date of service: 03/05/2018 EXAM: Two-dimensional and M-mode echocardiogram with Doppler and color Doppler. INDICATION Dyspnea Congestive Heart Failure 2D DIMENSIONS IVSd1.5 (0.7-1.1cm)LVDd3.7 (3.9-5.9cm) PWd1.6 (0.7-1.1cm)LVDs2.5 (2.5-4.0cm) FS (%) 33.4 %LVEF (%)63.1 (>50%) M-Mode DIMENSIONS Aortic Root3.30 (2.2-3.7cm) Aortic Valve AoV Peak Xgnebeyz796.0cm/sAoV VTI79.4cmAO Peak GR.93mmHg LVOT Peak Gmjllxmi251.0cm/sLVOT VTI20.50cmAO Mean GR.45mmHg Mitral Valve MV E Ntvzvmza00.1cm/sMV A Beeuukqs722.0cm/sE/A ratio0.6 TDI Lateral E' Peak V7.12cm/sMedial E' Peak V4.97cm/sE/Lateral E'11.8 E/Medial E'16.9 Pulmonary Valve PV Peak Rmieonkh087.0cm/sPV Peak Grad.12mmHg Tricuspid Valve TR Peak Qxdayhum163ig/sRAP [id number] Peak Gr.21mmHg [id number] LEFT VENTRICLE The left ventricle is normal size. There is moderate concentric left ventricular hypertrophy. The left ventricular function is normal. The left ventricular ejection fraction is within the normal range. There is normal LV segmental wall motion. Transmitral Doppler flow pattern is Grade I-abnormal relaxation pattern. RIGHT VENTRICLE The right ventricle is normal size. There is normal right ventricular wall thickness. The right ventricular systolic function is normal. ATRIA The left atrium size is normal. The right atrium size is normal. AORTIC VALVE There is severe bioprosthetic aortic valve stenosis. The bioprosthetic aortic valve is not well visualized MITRAL VALVE The mitral valve is moderately thickened. There is no mitral valve regurgitation noted. There is no mitral valve stenosis. TRICUSPID VALVE The tricuspid valve is normal in structure. There is mild tricuspid regurgitation. PULMONIC VALVE There is mild pulmonic valvular regurgitation. GREAT VESSELS The aortic root is normal in size. PERICARDIAL EFFUSION There is moderate pleural effusion. There is a small circumferential pericardial effusion. <Conclusion> The left ventricle is normal size. There is moderate concentric left ventricular hypertrophy. The left ventricular function is normal. The left ventricular ejection fraction is within the normal range. There is normal LV segmental wall motion. Transmitral Doppler flow pattern is Grade I-abnormal relaxation pattern. There is severe bioprosthetic aortic valve stenosis.
[2018-03-06 18:52] LABS: CALCIUM 8.4 mg/dL (8.4-10.5)
[2018-03-06] MEDS: Meropenem 500 MG in Sodium Chloride 0.9% 50 ML IVPB SCH (23:14)
--- NOTE | 2018-03-06 23:25 | PN ---
DATE: 03/06/2018 SUBJECTIVE: The patient was seen earlier this morning in room 129, bed 2. The patient is comfortable, in no acute distress. No fevers. PHYSICAL EXAMINATION: VITAL SIGNS: Temperature is 98, blood pressure is 150/90, respiratory rate of 23, heart rate of 102. HEENT: Unremarkable. NECK: Supple. LUNGS: Decreased breath sounds. HEART: Normal S1 and S2. ABDOMEN: Soft. Nontender. LABORATORY EXAMINATION: Reveals a white count of 5.1, hemoglobin of 7. Chemistries reveals BUN of 48, creatinine of 2.9. Urinalysis is noted. Random vancomycin level is noted. Microbiology reveals the blood cultures are negative, repeat cultures are negative. Nares MRSA is negative. The patient had a chest x-ray today, underlying airspace disease is not excluded, effusions. ASSESSMENT AND PLAN: A 67-year-old male in room 129, bed 2 with a history of polycystic kidney disease; chronic renal failure, status post transplant in 2006; diabetes mellitus; aortic valve replacement; chronic anemia; dyslipidemia; hypertension; pulmonary hypertension; abdominal aortic aneurysm; admitted with increasing nausea, fatigue and systemic inflammatory response syndrome, on meropenem and doxycycline day #3, healthcare associated pneumonia. Review of orders reveals the patient's doxycycline and meropenem to be active, 4 to 7 days. We will follow closely with you. Bishop Squires MD
[2018-03-07 01:15] LABS: GRAN # 5.04 (1.4-6.5); GRAN % 90.6 % (50.0-68.0); LYMPH # 0.2 (1.2-3.4); MEAN CORPUSCULAR HEMOGLOBIN 24.7 pg (25.0-35.0); MEAN CORPUSCULAR HGB CONC 31.5 g/dl (31.0-37.0); MONO # 0.3 (0.1-0.6); MONO % 5.4 % (1.0-6.0); PLATELET COUNT 135 10^3/uL (120.0-450.0); RBC 4.01 10^6/uL (3.5-6.1); RED CELL DISTRIBUTION WIDTH 18.3 % (11.5-14.5); WHITE BLOOD COUNT 5.6 10^3/ul (4.5-11.0)
[2018-03-07 01:17] LABS: HEMOGLOBIN 9.9 g/dL (14.0-18.0)
[2018-03-07 01:18] LABS: MEAN CELL VOLUME 78.3 fl (80.0-105.0)
[2018-03-07 02:37] LABS: BAND 4 % (0-2); HYPOCHROMIA 1+; LYMPHOCYTE 3 % (22.0-35.0); MONOCYTE 2 % (1.0-6.0); NEUTROPHIL 91 % (50.0-70.0); PLATELET ESTIMATE NORMAL (NORMAL)
[2018-03-07 02:38] LABS: ANISOCYTOSIS 1+
[2018-03-07 02:39] LABS: HELMET CELLS 1+
[2018-03-07 02:40] LABS: SCHISTOCYTES MODERATE
[2018-03-07] MEDS: Levalbuterol 0.63 MG/3 ML Inhal Soln UD IH SCH ×5 (02:44→20:00)
[2018-03-07] MEDS: Pantoprazole 40 mg EC Tab PO SCH (05:41)
--- NOTE | 2018-03-07 06:19 | CP.PCM.PN ---
Subjective - Date & Time of Evaluation Date of Evaluation: 03/06/18 Time of Evaluation: 10:00 - Subjective Subjective: Patient's tachypnea improved; tolerating diet but not eating much; Objective - Vital Signs/Intake and Output Vital Signs (last 24 hours): Temp Pulse Resp BP Pulse Ox 99.3 F 108 H 36 H 171/86 H 99 03/06/18 23:30 03/07/18 02:00 03/07/18 01:15 03/07/18 01:15 03/07/18 01:15 Intake and Output: 03/06/18 03/07/18 18:59 06:59 Intake Total 0 1095 Output Total 770 Balance 0 325 - Medications Medications: Current Medications Acetaminophen (Tylenol 325mg Tab) 650 mg PO Q6 PRN PRN Reason: TEMP>=99.5F Acetaminophen (Tylenol 650 Mg Supp) 650 mg RC Q6H PRN PRN Reason: TEMP>=99.5F Acetaminophen (Tylenol 650 Mg Supp) 650 mg RC Q6H PRN PRN Reason: Headache Acetaminophen (Tylenol 325mg Tab) 650 mg PO Q6H PRN PRN Reason: Headache Atorvastatin Calcium (Lipitor) 20 mg PO DIN [facility] Last Admin: 03/06/18 18:10 Dose: 20 mg Benzonatate (Tessalon Perles) 200 mg PO TID [facility] Last Admin: 03/06/18 18:03 Dose: Not Given Calcitriol (Rocaltrol) 0.5 mcg PO DAILY [facility] Last Admin: 03/06/18 14:31 Dose: Not Given Calcium Acetate (Phoslo) 667 mg PO WM [facility] Last Admin: 03/06/18 18:11 Dose: 667 mg Calcium Carbonate (Oscal) 500 mg PO BID [facility] Last Admin: 03/06/18 18:09 Dose: 500 mg Cinacalcet (Sensipar) 30 mg PO DAILY [facility] Docusate Sodium (Colace) 100 mg PO TID [facility] Last Admin: 03/06/18 18:01 Dose: Not Given Ezetimibe (Zetia) 10 mg PO DAILY [facility] Last Admin: 03/06/18 09:43 Dose: Not Given Ferrous Gluconate (Fergon) 324 mg PO BID [facility] Last Admin: 03/06/18 18:10 Dose: 324 mg Hydrocortisone Sodium Succinate (Solu-Cortef) 25 mg IVP Q12 [facility] Last Admin: 03/06/18 22:11 Dose: 25 mg Doxycycline Hyclate 100 mg/ (Sodium Chloride) 100 mls @ 100 mls/hr IVPB Q12 [facility]; Protocol Last Admin: 03/06/18 22:20 Dose: 100 mls/hr Meropenem 500 mg/ Sodium (Chloride) 50 mls @ 100 mls/hr IVPB Q24H [facility]; Protocol Stop: 03/10/18 22:46 Last Admin: 03/06/18 23:14 Dose: 100 mls/hr Insulin Human Lispro (Humalog High) 0 units SC ACHS [facility]; Protocol Last Admin: 03/06/18 22:09 Dose: Not Given Lactic Acid (Lac-Hydrin 12% Lotion (225 G)) 0 gm EXT TID [facility] Last Admin: 03/06/18 18:08 Dose: 1 applic Levalbuterol HCl (Xopenex) 0.63 mg IH [id number] [facility] Last Admin: 03/07/18 02:47 Dose: Not Given Metoprolol Tartrate (Lopressor) 25 mg PO BID [facility] Last Admin: 03/06/18 18:10 Dose: 25 mg Midodrine (Proamatine) 5 mg PO TID [facility] Last Admin: 03/06/18 18:03 Dose: Not Given Ondansetron HCl (Zofran Inj) 4 mg IVP Q4H PRN PRN Reason: Nausea/Vomiting Pantoprazole Sodium (Protonix Ec Tab) 40 mg PO 0600 [facility] Last Admin: 03/07/18 05:41 Dose: 40 mg Polyethylene Glycol (Miralax) 17 gm PO BID [facility] Last Admin: 03/06/18 18:02 Dose: Not Given Tacrolimus (Prograf Cap) 1 mg PO QPM [facility] Last Admin: 03/06/18 18:09 Dose: 1 mg Tacrolimus (Prograf Cap) 2 mg PO QAM [facility] Last Admin: 03/06/18 14:30 Dose: 2 mg - Labs Labs: 03/07/18 00:50 03/06/18 18:39 PT 12.8 SECONDS (9.4-12.5) H 03/03/18 10:20 INR 1.11 03/03/18 10:20 APTT 27.9 Seconds (25.1-36.5) 03/03/18 10:20 - Constitutional Appears: Non-toxic, No Acute Distress - Eye Exam Eye Exam: absent: Scleral icterus - Respiratory Exam Respiratory Exam: Clear to Ausculation Bilateral. absent: Respiratory Distress - Cardiovascular Exam Cardiovascular Exam: Tachycardia, Murmur Additional comments: loud systolic murmur - GI/Abdominal Exam GI & Abdominal Exam: Soft, Pulsatile Mass. absent: Distended, Tenderness - Extremities Exam Additional comments: moderate leg edema; L forearm edema - Neurological Exam Neurological Exam: Alert, Awake - Skin Skin Exam: Warm. absent: Cyanosis Assessment and Plan (1) Acute kidney injury Assessment & Plan: MYRNA on CKD IV of transplanted kidney; ATN in the setting of sepsis, borderline oliguria; stable volume and electrolyte status; metabolic acidosis corrected, anion gap improved; giving full HD treatment today for first time with 500 cc UF goal; -avoid nephrotoxic agents as much as possible Status: Acute (2) Severe sepsis Assessment & Plan: Hemodynamically much improved; on doxy and meropenem (dosed for HD), continue per ID; Status: Acute (3) Anemia of renal disease Assessment & Plan: Mild drop in hgb; has been getting prbc transfusion intermittently, continue as needed prn in this patient with multiple co-morbidities and high risk for overall decompensation; aranesp given yesterday; Status: Acute (4) Immunosuppression Assessment & Plan: On tacrolimus 2 mg in am and 1 mg in pm, prednisone 5 mg daily, continue; will restart MMF now that sepsis is improved; Status: Acute (5) Chronic kidney disease (CKD), stage IV (severe) Assessment & Plan: MYRNA on CKD IV; unclear at this point whether patient will be able to return to his baseline renal function or remain dialysis dependent; Status: Chronic (6) AAA (abdominal aortic aneurysm) Status: Chronic (7) Chronic kidney disease-mineral and bone disorder Status: Acute (8) Renal transplant, status post Status: Chronic (9) Aortic stenosis Assessment & Plan: Critical per cardio, possibly needing TAVR; for cardiac cath tomorrow to rule out CAD; ideally should give IVF for contrast prophylaxis but patient is borderline oliguric and has already received enough IVF; Status: Acute
[2018-03-07 06:29] LABS: GRAN # 4.72 (1.4-6.5); GRAN % 88.9 % (50.0-68.0); HEMOGLOBIN 9.9 g/dL (14.0-18.0); LYMPH # 0.3 (1.2-3.4); LYMPH % 5.3 % (22.0-35.0); MEAN CELL VOLUME 78.7 fl (80.0-105.0); MEAN CORPUSCULAR HEMOGLOBIN 24.5 pg (25.0-35.0); MEAN CORPUSCULAR HGB CONC 31.1 g/dl (31.0-37.0); MONO # 0.3 (0.1-0.6); MONO % 5.8 % (1.0-6.0); PLATELET COUNT 135 10^3/uL (120.0-450.0); RBC 4.04 10^6/uL (3.5-6.1); RED CELL DISTRIBUTION WIDTH 18.4 % (11.5-14.5); WHITE BLOOD COUNT 5.3 10^3/ul (4.5-11.0)
[2018-03-07 06:55] LABS: ALB/GLOB RATIO 1.3 (1.1-1.8); ALBUMIN 3.1 g/dL (3.0-4.8); BILIRUBIN,DIRECT 0.5 mg/dL (0.0-0.4); CALCIUM 8.9 mg/dL (8.4-10.5)
[2018-03-07] MEDS ORDERED: Iodixanol 320 MG/ML 200 ML BOTTLE IV ONE (07:47)
[2018-03-07] MEDS ORDERED: Iodixanol 320 MG/ML 100 ML BOTTLE IV ONE (07:47)
[2018-03-07] MEDS ORDERED: Lidocaine PF 2% (5 ml) Inj (For Cardiac Arrhy) ONE (07:47)
[2018-03-07] MEDS ORDERED: Heparin 2,000 ML IV ONE (07:47)
[2018-03-07] MEDS: Insulin Lispro (HUMAlog) HIGH Coverage SC SCH ×4 (08:17→22:45)
[2018-03-07] MEDS ORDERED: Midazolam 2 MG/2 ML VIAL ONE ×2 (10:05→10:42)
--- NOTE | 2018-03-07 10:10 | CP.CCUPN ---
<Yamilka Lowery - Last Filed: 03/07/18 11:35> CCU Subjective - Physician Review Subjective (Free Text): Yamilka Lowery, PGY-1, CCU Progress Note for Dr. Flores Patient seen and examined at bedside. Patient was confused to place overnight and slightly agitated regarding wanting to return home but was reoriented. Patient continues to report wanting to return home but is compliant at this time. Patient reports improved weakness, much improved shortness of breath. Patient denies headache, dizziness, fever, chest pain, back pain, heart palpitations, wheezing, cough, nausea, vomiting, constipation, diarrhea, dysuria, hematuria, numbness, and tingling. Critical Care Time Spent (in minutes): 60 CCU Objective - Vital Signs / Intake & Output Intake and Output (Last 8hrs): Intake & Output 03/06/18 03/07/18 03/07/18 22:59 06:59 14:59 Intake Total 1095 270 Output Total 770 200 Balance 325 70 Weight 115 lb 3 oz Intake: IV 250 150 Right Upper arm 250 150 Oral 500 120 Blood Product 325 Red Blood Cells Cp2d As3 325 Lr Unit [id number] Other 20 Red Blood Cells Cp2d As3 20 Lr Unit [id number] Output: Urine 70 200 Urine, Voided 70 200 Stool 200 0 Emesis 0 Other 500 - Physical Exam Head: Positive for: Atraumatic, Normocephalic Pupils: Positive for: PERRL Extroacular Muscles: Positive for: EOMI Conjunctiva: Positive for: Normal Mouth: Positive for: Moist Mucous Membranes Neck: Positive for: Normal Range of Motion Respiratory/Chest: Positive for: Clear to Auscultation, Good Air Exchange, Decreased Breath Sounds (at the bases). Negative for: Accessory Muscle Use, Wheezes, Rales, Retracting, Rhonchi Cardiovascular: Positive for: Regular Rate and Rhythm, Murmurs (3/5 systolic ejection murmur in RUSB), Normal S1, S2 Abdomen: Positive for: Distention (firm). 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 Pt states is not used. He is currently not on dialysis. Right arm swelling). Negative for: Cyanosis, Edema Lower Extremity: Positive for: Normal Inspection, Other (+2 pitting edema). Negative for: Edema Neurological: Positive for: GCS=15, CN II-XII Intact, Speech Normal, Motor Func Grossly Intact, Other (MSK +4/5 throughout) Skin: Positive for: Warm, Dry, Normal Color. Negative for: Rashes Psychiatric: Positive for: Alert, Oriented x 3, Normal Insight, Normal Concentration - Medications Active Medications: Active Medications Generic Name Dose Route Start Last Admin Trade Name Freq PRN Reason Stop Dose Admin Acetaminophen 650 mg 03/03/18 19:21 Tylenol 325mg Tab PO Q6 PRN TEMP>=99.5F Acetaminophen 650 mg 03/03/18 19:21 Tylenol 650 Mg Supp RC Q6H PRN TEMP>=99.5F Acetaminophen 650 mg 03/03/18 19:28 Tylenol 650 Mg Supp RC Q6H PRN Headache Acetaminophen 650 mg 03/03/18 19:29 Tylenol 325mg Tab PO Q6H PRN Headache Atorvastatin Calcium 20 mg 03/03/18 17:00 03/06/18 18:10 Lipitor PO 20 mg DIN [facility] Administration Benzonatate 200 mg 03/04/18 10:00 03/06/18 18:03 Tessalon Perles PO Not Given TID [facility] Calcitriol 0.5 mcg 03/03/18 15:30 03/06/18 14:31 Rocaltrol PO Not Given DAILY [facility] Calcium Acetate 667 mg 03/04/18 12:00 03/07/18 08:17 Phoslo PO Not Given WM [facility] Calcium Carbonate 500 mg 03/04/18 18:00 03/06/18 18:09 Oscal PO 500 mg BID [facility] Administration Cinacalcet 30 mg 03/04/18 10:00 Sensipar PO DAILY [facility] Docusate Sodium 100 mg 03/04/18 10:00 03/06/18 18:01 Colace PO Not Given TID [facility] Ezetimibe 10 mg 03/04/18 10:00 03/06/18 09:43 Zetia PO Not Given DAILY [facility] Ferrous Gluconate 324 mg 03/03/18 18:00 03/06/18 18:10 Fergon PO 324 mg BID [facility] Administration Hydrocortisone Sodium Succinate 25 mg 03/07/18 10:15 Solu-Cortef IVP DAILY [facility] Doxycycline Hyclate 100 mg/ 100 mls @ 100 mls/hr 03/03/18 22:00 03/06/18 22:20 Sodium Chloride IVPB 100 mls/hr Q12 [facility] Administration Protocol Meropenem 500 mg/ Sodium 50 mls @ 100 mls/hr 03/03/18 22:45 03/06/18 23:14 Chloride IVPB 03/10/18 22:46 100 mls/hr Q24H [facility] Administration Protocol Insulin Human Lispro 0 units 03/04/18 11:30 03/07/18 08:17 Humalog High SC Not Given ACHS [facility] Protocol Lactic Acid 0 gm 03/06/18 11:00 03/06/18 18:08 Lac-Hydrin 12% Lotion (225 G) EXT 1 applic TID [facility] Administration Levalbuterol HCl 0.63 mg 03/03/18 20:00 03/07/18 07:48 Xopenex IH 0.63 mg [id number] [facility] Administration Metoprolol Tartrate 50 mg 03/07/18 09:00 Lopressor PO BID [facility] Midodrine 5 mg 03/03/18 23:45 03/06/18 18:03 Proamatine PO Not Given TID [facility] Ondansetron HCl 4 mg 03/03/18 19:21 Zofran Inj IVP Q4H PRN Nausea/Vomiting Pantoprazole Sodium 40 mg 03/04/18 06:00 03/07/18 05:41 Protonix Ec Tab PO 40 mg 0600 [facility] Administration Polyethylene Glycol 17 gm 03/04/18 10:00 03/06/18 18:02 Miralax PO Not Given BID [facility] Tacrolimus 1 mg 03/03/18 18:00 03/06/18 18:09 Prograf Cap PO 1 mg QPM [facility] Administration Tacrolimus 2 mg 03/04/18 10:00 03/06/18 14:30 Prograf Cap PO 2 mg QAM [facility] Administration - Patient Studies Lab Studies: Microbiology Studies 03/03/18 20:18 Blood Culture - Preliminary Blood NO GROWTH AFTER 3 DAYS 03/03/18 20:18 Blood Culture - Preliminary Blood NO GROWTH AFTER 3 DAYS 03/05/18 01:00 Urine Culture - Final Urine,Clean Catch No Growth (<1,000 CFU/ML) 03/03/18 15:25 Blood Culture - Preliminary Blood-Venous NO GROWTH AFTER 3 DAYS 03/03/18 14:27 Blood Culture - Preliminary Blood-Venous NO GROWTH AFTER 3 DAYS Lab Studies 03/07/18 03/07/18 03/07/18 Range/Units 07:58 05:30 05:30 WBC 5.3 (4.5-11.0) 10^3/ul RBC 4.04 (3.5-6.1) 10^6/uL Hgb 9.9 L (14.0-18.0) g/dL Hct 31.8 L (42.0-52.0) % MCV 78.7 L (80.0-105.0) fl MCH 24.5 L (25.0-35.0) pg MCHC 31.1 (31.0-37.0) g/dl RDW 18.4 H (11.5-14.5) % Plt Count 135 (120.0-450.0) 10^3/uL Gran % 88.9 H (50.0-68.0) % Lymph % (Auto) 5.3 L (22.0-35.0) % [place] % (Auto) 5.8 (1.0-6.0) % Eos % (Auto) 0.0 L (1.5-5.0) % Baso % (Auto) 0.0 (0.0-3.0) % Gran # 4.72 (1.4-6.5) Lymph # (Auto) 0.3 L (1.2-3.4) [place] # (Auto) 0.3 (0.1-0.6) Eos # (Auto) 0.0 (0.0-0.7) Baso # (Auto) 0.00 (0.0-2.0) K/mm3 Neutrophils % (Manual) (50.0-70.0) % Band Neutrophils % (0-2) % Lymphocytes % (Manual) (22.0-35.0) % Monocytes % (Manual) (1.0-6.0) % Platelet Evaluation (NORMAL) Hypochromasia Anisocytosis (manual) Helmet Cells Schistocytes Haptoglobin (30.0-200.0) mg/dL Sodium 139 (132-148) mmol/L Potassium 4.3 (3.6-5.0) mmol/L Chloride 99 (98-107) mmol/L Carbon Dioxide 28 (21-33) mmol/L Anion Gap 16 (10-20) BUN 26 H (7-21) mg/dL Creatinine 1.9 H (0.8-1.5) mg/dl Est GFR ( Amer) 43 Est GFR (Non-Af Amer) 36 POC Glucose (mg/dL) 261 H (65-110) mg/dL Random Glucose 264 H (70-110) mg/dL Fructosamine (190-270) umol/L Calcium 8.9 (8.4-10.5) mg/dL Phosphorus 2.8 (2.5-4.5) mg/dL Magnesium 2.0 (1.7-2.2) mg/dL Iron (45-180) ug/dL TIBC (261-462) ug/dL % Saturation (20-55) % Ferritin ng/mL Total Bilirubin 0.5 (0.2-1.3) mg/dL Direct Bilirubin 0.5 H (0.0-0.4) mg/dL AST 30 (17-59) U/L ALT 27 (7-56) U/L Alkaline Phosphatase 85 (38-126) U/L Lactate Dehydrogenase (333-699) U/L NT-Pro-B Natriuret Pep (0-450) pg/mL Total Protein 5.4 L (5.8-8.3) g/dL Albumin 3.1 (3.0-4.8) g/dL Globulin 2.3 gm/dL Albumin/Globulin Ratio 1.3 (1.1-1.8) Vitamin B12 (239-931) pg/mL Folate ng/mL Blood Type Antibody Screen Crossmatch BBK History Checked 03/07/18 03/06/18 03/06/18 Range/Units 00:50 20:58 18:39 WBC 5.6 (4.5-11.0) 10^3/ul RBC 4.01 (3.5-6.1) 10^6/uL Hgb 9.9 L D (14.0-18.0) g/dL Hct 31.4 L (42.0-52.0) % MCV 78.3 L D (80.0-105.0) fl MCH 24.7 L (25.0-35.0) pg MCHC 31.5 (31.0-37.0) g/dl RDW 18.3 H (11.5-14.5) % Plt Count 135 (120.0-450.0) 10^3/uL Gran % 90.6 H (50.0-68.0) % Lymph % (Auto) 4.0 L (22.0-35.0) % [place] % (Auto) 5.4 (1.0-6.0) % Eos % (Auto) 0.0 L (1.5-5.0) % Baso % (Auto) 0.0 (0.0-3.0) % Gran # 5.04 (1.4-6.5) Lymph # (Auto) 0.2 L (1.2-3.4) [place] # (Auto) 0.3 (0.1-0.6) Eos # (Auto) 0.0 (0.0-0.7) Baso # (Auto) 0.00 (0.0-2.0) K/mm3 Neutrophils % (Manual) 91 H (50.0-70.0) % Band Neutrophils % 4 H (0-2) % Lymphocytes % (Manual) 3 L (22.0-35.0) % Monocytes % (Manual) 2 (1.0-6.0) % Platelet Evaluation Normal (NORMAL) Hypochromasia 1+ Anisocytosis (manual) 1+ Helmet Cells 1+ Schistocytes Moderate Haptoglobin (30.0-200.0) mg/dL Sodium 139 (132-148) mmol/L Potassium 4.8 (3.6-5.0) mmol/L Chloride 99 (98-107) mmol/L Carbon Dioxide 33 (21-33) mmol/L Anion Gap 12 (10-20) BUN 19 (7-21) mg/dL Creatinine 1.6 H (0.8-1.5) mg/dl Est GFR ( Amer) 53 Est GFR (Non-Af Amer) 44 POC Glucose (mg/dL) 116 H (65-110) mg/dL Random Glucose 166 H (70-110) mg/dL Fructosamine (190-270) umol/L Calcium 8.4 (8.4-10.5) mg/dL Phosphorus (2.5-4.5) mg/dL Magnesium (1.7-2.2) mg/dL Iron (45-180) ug/dL TIBC (261-462) ug/dL % Saturation (20-55) % Ferritin ng/mL Total Bilirubin (0.2-1.3) mg/dL Direct Bilirubin (0.0-0.4) mg/dL AST (17-59) U/L ALT (7-56) U/L Alkaline Phosphatase (38-126) U/L Lactate Dehydrogenase (333-699) U/L NT-Pro-B Natriuret Pep (0-450) pg/mL Total Protein (5.8-8.3) g/dL Albumin (3.0-4.8) g/dL Globulin gm/dL Albumin/Globulin Ratio (1.1-1.8) Vitamin B12 (239-931) pg/mL Folate ng/mL Blood Type Antibody Screen Crossmatch BBK History Checked 03/06/18 03/06/18 03/06/18 Range/Units 16:47 16:30 16:18 WBC 5.1 (4.5-11.0) 10^3/ul RBC 3.24 L (3.5-6.1) 10^6/uL Hgb 7.6 L (14.0-18.0) g/dL Hct 24.1 L (42.0-52.0) % MCV 74.4 L (80.0-105.0) fl MCH 23.5 L (25.0-35.0) pg MCHC 31.5 (31.0-37.0) g/dl RDW 19.0 H (11.5-14.5) % Plt Count 134 (120.0-450.0) 10^3/uL Gran % (50.0-68.0) % Lymph % (Auto) (22.0-35.0) % [place] % (Auto) (1.0-6.0) % Eos % (Auto) (1.5-5.0) % Baso % (Auto) (0.0-3.0) % Gran # (1.4-6.5) Lymph # (Auto) (1.2-3.4) [place] # (Auto) (0.1-0.6) Eos # (Auto) (0.0-0.7) Baso # (Auto) (0.0-2.0) K/mm3 Neutrophils % (Manual) (50.0-70.0) % Band Neutrophils % (0-2) % Lymphocytes % (Manual) (22.0-35.0) % Monocytes % (Manual) (1.0-6.0) % Platelet Evaluation (NORMAL) Hypochromasia Anisocytosis (manual) Helmet Cells Schistocytes Haptoglobin (30.0-200.0) mg/dL Sodium (132-148) mmol/L Potassium (3.6-5.0) mmol/L Chloride (98-107) mmol/L Carbon Dioxide (21-33) mmol/L Anion Gap (10-20) BUN (7-21) mg/dL Creatinine (0.8-1.5) mg/dl Est GFR ( Amer) Est GFR (Non-Af Amer) POC Glucose (mg/dL) 152 H (65-110) mg/dL Random Glucose (70-110) mg/dL Fructosamine (190-270) umol/L Calcium (8.4-10.5) mg/dL Phosphorus (2.5-4.5) mg/dL Magnesium (1.7-2.2) mg/dL Iron (45-180) ug/dL TIBC (261-462) ug/dL % Saturation (20-55) % Ferritin ng/mL Total Bilirubin (0.2-1.3) mg/dL Direct Bilirubin (0.0-0.4) mg/dL AST (17-59) U/L ALT (7-56) U/L Alkaline Phosphatase (38-126) U/L Lactate Dehydrogenase (333-699) U/L NT-Pro-B Natriuret Pep (0-450) pg/mL Total Protein (5.8-8.3) g/dL Albumin (3.0-4.8) g/dL Globulin gm/dL Albumin/Globulin Ratio (1.1-1.8) Vitamin B12 (239-931) pg/mL Folate ng/mL Blood Type O POSITIVE Antibody Screen Negative Crossmatch See Detail BBK History Checked Patient has bt 03/06/18 03/06/18 03/06/18 Range/Units 11:34 09:50 09:50 WBC (4.5-11.0) 10^3/ul RBC (3.5-6.1) 10^6/uL Hgb (14.0-18.0) g/dL Hct (42.0-52.0) % MCV (80.0-105.0) fl MCH (25.0-35.0) pg MCHC (31.0-37.0) g/dl RDW (11.5-14.5) % Plt Count (120.0-450.0) 10^3/uL Gran % (50.0-68.0) % Lymph % (Auto) (22.0-35.0) % [place] % (Auto) (1.0-6.0) % Eos % (Auto) (1.5-5.0) % Baso % (Auto) (0.0-3.0) % Gran # (1.4-6.5) Lymph # (Auto) (1.2-3.4) [place] # (Auto) (0.1-0.6) Eos # (Auto) (0.0-0.7) Baso # (Auto) (0.0-2.0) K/mm3 Neutrophils % (Manual) (50.0-70.0) % Band Neutrophils % (0-2) % Lymphocytes % (Manual) (22.0-35.0) % Monocytes % (Manual) (1.0-6.0) % Platelet Evaluation (NORMAL) Hypochromasia Anisocytosis (manual) Helmet Cells Schistocytes Haptoglobin 126.6 (30.0-200.0) mg/dL Sodium (132-148) mmol/L Potassium (3.6-5.0) mmol/L Chloride (98-107) mmol/L Carbon Dioxide (21-33) mmol/L Anion Gap (10-20) BUN (7-21) mg/dL Creatinine (0.8-1.5) mg/dl Est GFR ( Amer) Est GFR (Non-Af Amer) POC Glucose (mg/dL) 102 (65-110) mg/dL Random Glucose (70-110) mg/dL Fructosamine (190-270) umol/L Calcium (8.4-10.5) mg/dL Phosphorus (2.5-4.5) mg/dL Magnesium (1.7-2.2) mg/dL Iron (45-180) ug/dL TIBC (261-462) ug/dL % Saturation (20-55) % Ferritin 133.0 ng/mL Total Bilirubin (0.2-1.3) mg/dL Direct Bilirubin (0.0-0.4) mg/dL AST (17-59) U/L ALT (7-56) U/L Alkaline Phosphatase (38-126) U/L Lactate Dehydrogenase 1250 H (333-699) U/L NT-Pro-B Natriuret Pep (0-450) pg/mL Total Protein (5.8-8.3) g/dL Albumin (3.0-4.8) g/dL Globulin gm/dL Albumin/Globulin Ratio (1.1-1.8) Vitamin B12 > 1000 H (239-931) pg/mL Folate 10.0 ng/mL Blood Type Antibody Screen Crossmatch BBK History Checked 03/06/18 03/06/18 03/06/18 Range/Units 09:50 09:50 07:08 WBC (4.5-11.0) 10^3/ul RBC (3.5-6.1) 10^6/uL Hgb (14.0-18.0) g/dL Hct (42.0-52.0) % MCV (80.0-105.0) fl MCH (25.0-35.0) pg MCHC (31.0-37.0) g/dl RDW (11.5-14.5) % Plt Count (120.0-450.0) 10^3/uL Gran % (50.0-68.0) % Lymph % (Auto) (22.0-35.0) % [place] % (Auto) (1.0-6.0) % Eos % (Auto) (1.5-5.0) % Baso % (Auto) (0.0-3.0) % Gran # (1.4-6.5) Lymph # (Auto) (1.2-3.4) [place] # (Auto) (0.1-0.6) Eos # (Auto) (0.0-0.7) Baso # (Auto) (0.0-2.0) K/mm3 Neutrophils % (Manual) (50.0-70.0) % Band Neutrophils % (0-2) % Lymphocytes % (Manual) (22.0-35.0) % Monocytes % (Manual) (1.0-6.0) % Platelet Evaluation (NORMAL) Hypochromasia Anisocytosis (manual) Helmet Cells Schistocytes Haptoglobin (30.0-200.0) mg/dL Sodium (132-148) mmol/L Potassium (3.6-5.0) mmol/L Chloride (98-107) mmol/L Carbon Dioxide (21-33) mmol/L Anion Gap (10-20) BUN (7-21) mg/dL Creatinine (0.8-1.5) mg/dl Est GFR ( Amer) Est GFR (Non-Af Amer) POC Glucose (mg/dL) (65-110) mg/dL Random Glucose (70-110) mg/dL Fructosamine 492 H (190-270) umol/L Calcium (8.4-10.5) mg/dL Phosphorus (2.5-4.5) mg/dL Magnesium (1.7-2.2) mg/dL Iron 21 L (45-180) ug/dL TIBC 208 L (261-462) ug/dL % Saturation 10 L (20-55) % Ferritin ng/mL Total Bilirubin (0.2-1.3) mg/dL Direct Bilirubin (0.0-0.4) mg/dL AST (17-59) U/L ALT (7-56) U/L Alkaline Phosphatase (38-126) U/L Lactate Dehydrogenase (333-699) U/L NT-Pro-B Natriuret Pep 17925 H (0-450) pg/mL Total Protein (5.8-8.3) g/dL Albumin (3.0-4.8) g/dL Globulin gm/dL Albumin/Globulin Ratio (1.1-1.8) Vitamin B12 (239-931) pg/mL Folate ng/mL Blood Type Antibody Screen Crossmatch BBK History Checked 03/03/18 Range/Units 11:00 WBC (4.5-11.0) 10^3/ul RBC (3.5-6.1) 10^6/uL Hgb (14.0-18.0) g/dL Hct (42.0-52.0) % MCV (80.0-105.0) fl MCH (25.0-35.0) pg MCHC (31.0-37.0) g/dl RDW (11.5-14.5) % Plt Count (120.0-450.0) 10^3/uL Gran % (50.0-68.0) % Lymph % (Auto) (22.0-35.0) % [place] % (Auto) (1.0-6.0) % Eos % (Auto) (1.5-5.0) % Baso % (Auto) (0.0-3.0) % Gran # (1.4-6.5) Lymph # (Auto) (1.2-3.4) [place] # (Auto) (0.1-0.6) Eos # (Auto) (0.0-0.7) Baso # (Auto) (0.0-2.0) K/mm3 Neutrophils % (Manual) (50.0-70.0) % Band Neutrophils % (0-2) % Lymphocytes % (Manual) (22.0-35.0) % Monocytes % (Manual) (1.0-6.0) % Platelet Evaluation (NORMAL) Hypochromasia Anisocytosis (manual) Helmet Cells Schistocytes Haptoglobin (30.0-200.0) mg/dL Sodium (132-148) mmol/L Potassium (3.6-5.0) mmol/L Chloride (98-107) mmol/L Carbon Dioxide (21-33) mmol/L Anion Gap (10-20) BUN (7-21) mg/dL Creatinine (0.8-1.5) mg/dl Est GFR ( Amer) Est GFR (Non-Af Amer) POC Glucose (mg/dL) (65-110) mg/dL Random Glucose (70-110) mg/dL Fructosamine (190-270) umol/L Calcium (8.4-10.5) mg/dL Phosphorus (2.5-4.5) mg/dL Magnesium (1.7-2.2) mg/dL Iron (45-180) ug/dL TIBC (261-462) ug/dL % Saturation (20-55) % Ferritin ng/mL Total Bilirubin (0.2-1.3) mg/dL Direct Bilirubin (0.0-0.4) mg/dL AST (17-59) U/L ALT (7-56) U/L Alkaline Phosphatase (38-126) U/L Lactate Dehydrogenase (333-699) U/L NT-Pro-B Natriuret Pep (0-450) pg/mL Total Protein (5.8-8.3) g/dL Albumin (3.0-4.8) g/dL Globulin gm/dL Albumin/Globulin Ratio (1.1-1.8) Vitamin B12 (239-931) pg/mL Folate ng/mL Blood Type O POSITIVE Antibody Screen Negative Crossmatch See Detail BBK History Checked Patient has bt Laboratory Results - last 24 hr 03/03/18 03/06/18 03/06/18 11:00 07:08 09:50 WBC RBC Hgb Hct MCV MCH MCHC RDW Plt Count Gran % Lymph % (Auto) [place] % (Auto) Eos % (Auto) Baso % (Auto) Gran # Lymph # (Auto) [place] # (Auto) Eos # (Auto) Baso # (Auto) Neutrophils % (Manual) Band Neutrophils % Lymphocytes % (Manual) Monocytes % (Manual) Platelet Evaluation Hypochromasia Anisocytosis (manual) Helmet Cells Schistocytes Haptoglobin Sodium Potassium Chloride Carbon Dioxide Anion Gap BUN Creatinine Est GFR ( Amer) Est GFR (Non-Af Amer) POC Glucose (mg/dL) Random Glucose Fructosamine 492 H Calcium Phosphorus Magnesium Iron TIBC % Saturation Ferritin Total Bilirubin Direct Bilirubin AST ALT Alkaline Phosphatase Lactate Dehydrogenase NT-Pro-B Natriuret Pep 80659 H Total Protein Albumin Globulin Albumin/Globulin Ratio Vitamin B12 Folate Blood Type O POSITIVE Antibody Screen Negative Crossmatch See Detail BBK History Checked Patient has bt 03/06/18 03/06/18 03/06/18 09:50 09:50 09:50 WBC RBC Hgb Hct MCV MCH MCHC RDW Plt Count Gran % Lymph % (Auto) [place] % (Auto) Eos % (Auto) Baso % (Auto) Gran # Lymph # (Auto) [place] # (Auto) Eos # (Auto) Baso # (Auto) Neutrophils % (Manual) Band Neutrophils % Lymphocytes % (Manual) Monocytes % (Manual) Platelet Evaluation Hypochromasia Anisocytosis (manual) Helmet Cells Schistocytes Haptoglobin 126.6 Sodium Potassium Chloride Carbon Dioxide Anion Gap BUN Creatinine Est GFR ( Amer) Est GFR (Non-Af Amer) POC Glucose (mg/dL) Random Glucose Fructosamine Calcium Phosphorus Magnesium Iron 21 L TIBC 208 L % Saturation 10 L Ferritin 133.0 Total Bilirubin Direct Bilirubin AST ALT Alkaline Phosphatase Lactate Dehydrogenase 1250 H NT-Pro-B Natriuret Pep Total Protein Albumin Globulin Albumin/Globulin Ratio Vitamin B12 > 1000 H Folate 10.0 Blood Type Antibody Screen Crossmatch BBK History Checked 03/06/18 03/06/18 03/06/18 11:34 16:18 16:30 WBC 5.1 RBC 3.24 L Hgb 7.6 L Hct 24.1 L MCV 74.4 L MCH 23.5 L MCHC 31.5 RDW 19.0 H Plt Count 134 Gran % Lymph % (Auto) [place] % (Auto) Eos % (Auto) Baso % (Auto) Gran # Lymph # (Auto) [place] # (Auto) Eos # (Auto) Baso # (Auto) Neutrophils % (Manual) Band Neutrophils % Lymphocytes % (Manual) Monocytes % (Manual) Platelet Evaluation Hypochromasia Anisocytosis (manual) Helmet Cells Schistocytes Haptoglobin Sodium Potassium Chloride Carbon Dioxide Anion Gap BUN Creatinine Est GFR ( Amer) Est GFR (Non-Af Amer) POC Glucose (mg/dL) 102 152 H Random Glucose Fructosamine Calcium Phosphorus Magnesium Iron TIBC % Saturation Ferritin Total Bilirubin Direct Bilirubin AST ALT Alkaline Phosphatase Lactate Dehydrogenase NT-Pro-B Natriuret Pep Total Protein Albumin Globulin Albumin/Globulin Ratio Vitamin B12 Folate Blood Type Antibody Screen Crossmatch BBK History Checked 03/06/18 03/06/18 03/06/18 16:47 18:39 20:58 WBC RBC Hgb Hct MCV MCH MCHC RDW Plt Count Gran % Lymph % (Auto) [place] % (Auto) Eos % (Auto) Baso % (Auto) Gran # Lymph # (Auto) [place] # (Auto) Eos # (Auto) Baso # (Auto) Neutrophils % (Manual) Band Neutrophils % Lymphocytes % (Manual) Monocytes % (Manual) Platelet Evaluation Hypochromasia Anisocytosis (manual) Helmet Cells Schistocytes Haptoglobin Sodium 139 Potassium 4.8 Chloride 99 Carbon Dioxide 33 Anion Gap 12 BUN 19 Creatinine 1.6 H Est GFR ( Amer) 53 Est GFR (Non-Af Amer) 44 POC Glucose (mg/dL) 116 H Random Glucose 166 H Fructosamine Calcium 8.4 Phosphorus Magnesium Iron TIBC % Saturation Ferritin Total Bilirubin Direct Bilirubin AST ALT Alkaline Phosphatase Lactate Dehydrogenase NT-Pro-B Natriuret Pep Total Protein Albumin Globulin Albumin/Globulin Ratio Vitamin B12 Folate Blood Type O POSITIVE Antibody Screen Negative Crossmatch See Detail BBK History Checked Patient has bt 03/07/18 03/07/18 03/07/18 00:50 05:30 05:30 WBC 5.6 5.3 RBC 4.01 4.04 Hgb 9.9 L D 9.9 L Hct 31.4 L 31.8 L MCV 78.3 L D 78.7 L MCH 24.7 L 24.5 L MCHC 31.5 31.1 RDW 18.3 H 18.4 H Plt Count 135 135 Gran % 90.6 H 88.9 H Lymph % (Auto) 4.0 L 5.3 L [place] % (Auto) 5.4 5.8 Eos % (Auto) 0.0 L 0.0 L Baso % (Auto) 0.0 0.0 Gran # 5.04 4.72 Lymph # (Auto) 0.2 L 0.3 L [place] # (Auto) 0.3 0.3 Eos # (Auto) 0.0 0.0 Baso # (Auto) 0.00 0.00 Neutrophils % (Manual) 91 H Band Neutrophils % 4 H Lymphocytes % (Manual) 3 L Monocytes % (Manual) 2 Platelet Evaluation Normal Hypochromasia 1+ Anisocytosis (manual) 1+ Helmet Cells 1+ Schistocytes Moderate Haptoglobin Sodium 139 Potassium 4.3 Chloride 99 Carbon Dioxide 28 Anion Gap 16 BUN 26 H Creatinine 1.9 H Est GFR ( Amer) 43 Est GFR (Non-Af Amer) 36 POC Glucose (mg/dL) Random Glucose 264 H Fructosamine Calcium 8.9 Phosphorus 2.8 Magnesium 2.0 Iron TIBC % Saturation Ferritin Total Bilirubin 0.5 Direct Bilirubin 0.5 H AST 30 ALT 27 Alkaline Phosphatase 85 Lactate Dehydrogenase NT-Pro-B Natriuret Pep Total Protein 5.4 L Albumin 3.1 Globulin 2.3 Albumin/Globulin Ratio 1.3 Vitamin B12 Folate Blood Type Antibody Screen Crossmatch BBK History Checked 03/07/18 07:58 WBC RBC Hgb Hct MCV MCH MCHC RDW Plt Count Gran % Lymph % (Auto) [place] % (Auto) Eos % (Auto) Baso % (Auto) Gran # Lymph # (Auto) [place] # (Auto) Eos # (Auto) Baso # (Auto) Neutrophils % (Manual) Band Neutrophils % Lymphocytes % (Manual) Monocytes % (Manual) Platelet Evaluation Hypochromasia Anisocytosis (manual) Helmet Cells Schistocytes Haptoglobin Sodium Potassium Chloride Carbon Dioxide Anion Gap BUN Creatinine Est GFR ( Amer) Est GFR (Non-Af Amer) POC Glucose (mg/dL) 261 H Random Glucose Fructosamine Calcium Phosphorus Magnesium Iron TIBC % Saturation Ferritin Total Bilirubin Direct Bilirubin AST ALT Alkaline Phosphatase Lactate Dehydrogenase NT-Pro-B Natriuret Pep Total Protein Albumin Globulin Albumin/Globulin Ratio Vitamin B12 Folate Blood Type Antibody Screen Crossmatch BBK History Checked Fingerstick Blood Sugar Results: 261 Review of Systems - Constitutional Constitutional: absent: Fever, Chills, Weakness - EENT Eyes: absent: Blurred Vision Ears: absent: Decreased Hearing, Tinnitus Nose/Mouth/Throat: absent: Sore Throat - Cardiovascular Cardiovascular: Dyspnea on Exertion. absent: Chest Pain, Chest Pain at Rest, Chest Pain with Activity - Respiratory Respiratory: Dyspnea on Exertion. absent: Cough, Dyspnea, Hemoptysis, Wheezing - Gastrointestinal Gastrointestinal: absent: Abdominal Pain, Constipation, Diarrhea, Nausea, Vomiting - Genitourinary Genitourinary: absent: Dysuria, Hematuria - Musculoskeletal Musculoskeletal: absent: Arthralgias, Myalgias - Integumentary Integumentary: absent: Rash - Neurological Neurological: absent: Dizziness, Numbness, Tingling, Weakness - Psychiatric Psychiatric: absent: Anxiety, Depression Critical Care Progress Note - Ventilator Checklist Head of Bed 30 Degrees: Yes - Extremities/Vascular Does the Patient have a Central Venous Catheter?: No Does the Patient have a Aquino Catheter?: No Does the Patient need a Aquino Catheter?: No - Nutrition Nutrition: Nutrition Category Date Time Status Diabetic [Consistent Carbohydrate] [DIET] Diets 03/03/18 Dinner Ordered Assessment/Plan - Assessment and Plan (Free Text) Assessment: 67 year old male with past medical history of aortic valve replacement, anemia, renal transplant in 2006, hyperlipidemia, hypertension, insulin dependent diabetes, secondary hyperparathyroidism, polycystic kidney disease, chronic kidney disease, pulmonary hypertension, diastolic congestive heart failure with last EF of 62.9%, cachexia, and aortic dissection is a poor historian and presents with weakness and shortness of the breath for 3 weeks. Plan: Neuro: -AAOx3, no FND, moving extremities past midline. -Monitor neuro status. Patient mild disorientation at nighttime. -Reorient patient as necessary. Cardio: -RRR, hypotension resolved, tachycardia, systolic ejection murmur, tachypneic, firm and distended abdomen, +2 pitting edema in bilateral lower extremities -Patient's hypotension likely due to hypovolemia but cannot rule out cardiogenic or septic causes. -MAP: 117 -Due to patient's distended abdomen and bilateral lower [place] [address], echocardiogram was ordered. -Echocardiogram showed LVEF of 60-65%, right atrium mildly dilated, aortic valve calcification with adequate opening, mild to moderate tricuspid and mitral regurgitation, severe pulmonary hypertension, aortic root dilatation. 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 Dr. Murray and I had a discussion with Dr. Carlos Fulton regarding this case, who recommended that patient be evaluated outpatient by Dr. Dewitt, Vascular surgery, who was supposed to perform intervention for the infrarenal AAA but patient had electrolyte abnormalities and intervention was held off. Dr. Dewitt will be contacted to arrange for AAA follow up. -Continue doxycycline and merrem day 4 of 7. -Metoprolol tartrate 50 mg BID started today for control of heart rate and blood pressure. -Midodrine 5 mg TID -Dr. Shane, Cardiology, was consulted for this case. Patient had cardiac catherization today. No active coronary artery disease appreciated. Patient will be transferred to [facility] for TAVR. -Maintain MAP>65. -Monitor for S/S, HD compromise. Pulm: -Patient tachypnea improved. CTA B/L -Patient is stating well on 2L NC. -ABG from 03/04: pH: 7.29, pCO2: 19, pO2: 120, lactate: 1.3. -Tachypnea was likely due to compensation for metabolic acidosis from severe uremia. -Xopenex treatments given Q6 as needed -Improved bilateral pleural effusions on repeat chest x ray. -Bilateral upper and lower extremity duplex ultrasounds show no evidence of DVT. -Maintain O2 saturation>95%. GI: -Tolerating diabetic diet. -Protonix 40 mg daily -GI recommends no endoscopy during this visit due to risk from 8 cm AAA. Results from 2017 EGD procedure shows hiatal hernia, nonbleeding erythematous mucosa. No ulcers. Patient for possible CT enterography. -GI, Dr. Cordova was consulted for possible GI bleed. /Nephro: -MYRNA on CKD stage 4. -Patient received hemodialysis yesterday. HD session used low blood flow to prevent dialysis disequilibrium, high bicarb diasylate, and keeping a positive net fluid balance. -BUN/Cr: 26/1.9. Creatinine improved from 2.9 yesterday following dialysis. BUN improved from 48 yesterday following dialysis. -UA: negative leukocyte esterase and nitrates. 0-2 RBC, 0-2 WBC, small bacteria -Na: 139 from 136. Hyponatremia resolved. -K: 4.3 -HCO3: 28 from 13 yesterday. Bicarbonate drip was stopped yesterday -Calcium improved with calcitriol, calcium acetate, and calcium carbonate to 8.9 from 8.4 yesterday. -Phosphate is 2.8 today. Hyperphosphatemia resolved. -PTH elevated at 469 likely 2/2 to chronic kidney disease. -Continue doxycycline and merrem day 4 of 7. -Patient currently on immunosuppresion with tacrolimus, hydrocortisone for renal transplant. Cellcept held. -Maintain euvolemia. Making good urine output (270 mL since midnight). -Strict I and Os. Check daily weights -Dr. Wheeler, nephrology consulted for further recommendations. Endocrinology: -Random glucose at 264. Glucose elevated likely due to hydrocortisone. Hydrocortisone will start to be tapered to 25 mg daily today. -HgbA1c: 10.4 -Continue patient on high dose sliding scale insulin. -Obtain and maintain euglycemia. Heme/Onc: -Anemic: 9.9 from 7.9 with MCV of 78.7 -FOBT negative -Continue ferrous gluconate 324 mg BID. -Anemia likely due to chronic kidney disease. -One dose of MARK given 03/05 -Patient was transfused 1 U of PRBCs yesterday. Previous consent from this visit on file. -Continue monitoring H/H -GI was consulted who wanted endoscopy results from 02/2017. Results showed hiatal hernia, nonbleeding erythematous mucosa. No ulcers. ID: -Afebrile, leukopenia resolved -Serum lactic acid: 0.9 from 0.7. -BCx: no growth in 72 hours -UCx: no growth -Procalcitonin: 64.33 from 150 -Continue with doxycycline and merrem day 4 of 7 as emperic therapy. -Monitor for signs and symptoms of infection. -ID consulted for recommendations. Follow recommendations. DVT ppx: SCD GI ppx: protonix Patient case discussed with Dr. Flores. - Date & Time Date: 03/07/18 Time: 10:12 <Marin Flores - Last Filed: 03/07/18 12:21> CCU Objective - Vital Signs / Intake & Output Vital Signs (Last 4 hours): Vital Signs Pulse Resp BP 03/07/18 11:48 107 H 151/86 H 03/07/18 10:00 109 H 03/07/18 08:30 111 H 16 149/92 H Intake and Output (Last 8hrs): Intake & Output 03/06/18 03/07/18 03/07/18 22:59 06:59 14:59 Intake Total 1095 270 Output Total 770 200 Balance 325 70 Weight 115 lb 3 oz Intake: IV 250 150 Right Upper arm 250 150 Oral 500 120 Blood Product 325 Red Blood Cells Cp2d As3 325 Lr Unit [id number] Other 20 Red Blood Cells Cp2d As3 20 Lr Unit [id number] Output: Urine 70 200 Urine, Voided 70 200 Stool 200 0 Emesis 0 Other 500 - Medications Active Medications: Active Medications Generic Name Dose Route Start Last Admin Trade Name Freq PRN Reason Stop Dose Admin Acetaminophen 650 mg 03/03/18 19:21 Tylenol 325mg Tab PO Q6 PRN TEMP>=99.5F Acetaminophen 650 mg 03/03/18 19:21 Tylenol 650 Mg Supp RC Q6H PRN TEMP>=99.5F Acetaminophen 650 mg 03/03/18 19:28 Tylenol 650 Mg Supp RC Q6H PRN Headache Acetaminophen 650 mg 03/03/18 19:29 Tylenol 325mg Tab PO Q6H PRN Headache Atorvastatin Calcium 20 mg 03/03/18 17:00 03/06/18 18:10 Lipitor PO 20 mg DIN TAWANA Administration Benzonatate 200 mg 03/04/18 10:00 03/07/18 10:30 Tessalon Perles PO Not Given TID TA[place]NA Calcitriol 0.5 mcg 03/03/18 15:30 03/07/18 11:48 Rocaltrol PO 0.5 mcg DAILY TA[place]NA Administration Calcium Acetate 667 mg 03/04/18 12:00 03/07/18 11:49 Phoslo PO 667 mg WM TA[place]NA Administration Calcium Carbonate 500 mg 03/04/18 18:00 03/07/18 11:34 Oscal PO Not Given BID TA[place]NA Cinacalcet 30 mg 03/04/18 10:00 Sensipar PO DAILY TA[place]NA Docusate Sodium 100 mg 03/04/18 10:00 03/07/18 10:29 Colace PO Not Given TID TA[place]NA Ezetimibe 10 mg 03/04/18 10:00 03/07/18 11:52 Zetia PO 10 mg DAILY TA[place]NA Administration Ferrous Gluconate 324 mg 03/03/18 18:00 03/07/18 10:30 Fergon PO Not Given BID [facility] Hydrocortisone Sodium Succinate 25 mg 03/07/18 10:15 03/07/18 11:45 Solu-Cortef IVP 25 mg DAILY TA[place]NA Administration Doxycycline Hyclate 100 mg/ 100 mls @ 100 mls/hr 03/03/18 22:00 03/07/18 11:50 Sodium Chloride IVPB 100 mls/hr Q12 TWAANA Administration Protocol Meropenem 500 mg/ Sodium 50 mls @ 100 mls/hr 03/03/18 22:45 03/06/18 23:14 Chloride IVPB 03/10/18 22:46 100 mls/hr Q24H TA[place]NA Administration Protocol Sodium Chloride 1,000 mls @ 10 mls/hr 03/07/18 11:00 03/07/18 11:39 Sodium Chloride 0.45% IV 03/07/18 15:00 10 mls/hr .Q24H TA[place]NA Administration Insulin Human Lispro 0 units 03/04/18 11:30 03/07/18 11:55 Humalog High SC 7 unit ACHS TAWANA Administration Protocol Lactic Acid 0 gm 03/06/18 11:00 03/07/18 10:30 Lac-Hydrin 12% Lotion (225 G) EXT Not Given TID TA[place]NA Levalbuterol HCl 0.63 mg 03/03/18 20:00 03/07/18 07:48 Xopenex IH 0.63 mg [id number] TA[place]NA Administration Metoprolol Tartrate 50 mg 03/07/18 09:00 03/07/18 11:48 Lopressor PO 50 mg BID TA[place]NA Administration Midodrine 5 mg 03/08/18 10:00 Proamatine PO DAILY [place] Ondansetron HCl 4 mg 03/03/18 19:21 Zofran Inj IVP Q4H PRN Nausea/Vomiting Pantoprazole Sodium 40 mg 03/04/18 06:00 03/07/18 05:41 Protonix Ec Tab PO 40 mg 0600 TAWANA Administration Polyethylene Glycol 17 gm 03/04/18 10:00 03/07/18 10:30 Miralax PO Not Given BID TA[place]NA Tacrolimus 1 mg 03/03/18 18:00 03/06/18 18:09 Prograf Cap PO 1 mg QPM TAWANA Administration Tacrolimus 2 mg 03/04/18 10:00 03/07/18 11:53 Prograf Cap PO 2 mg QAM TA[place]NA Administration - Patient Studies Lab Studies: Microbiology Studies 03/03/18 20:18 Blood Culture - Preliminary Blood NO GROWTH AFTER 3 DAYS 03/03/18 20:18 Blood Culture - Preliminary Blood NO GROWTH AFTER 3 DAYS 03/05/18 01:00 Urine Culture - Final Urine,Clean Catch No Growth (<1,000 CFU/ML) 03/03/18 15:25 Blood Culture - Preliminary Blood-Venous NO GROWTH AFTER 3 DAYS 03/03/18 14:27 Blood Culture - Preliminary Blood-Venous NO GROWTH AFTER 3 DAYS Lab Studies 03/07/18 03/07/18 03/07/18 Range/Units 07:58 05:30 05:30 WBC 5.3 (4.5-11.0) 10^3/ul RBC 4.04 (3.5-6.1) 10^6/uL Hgb 9.9 L (14.0-18.0) g/dL Hct 31.8 L (42.0-52.0) % MCV 78.7 L (80.0-105.0) fl MCH 24.5 L (25.0-35.0) pg MCHC 31.1 (31.0-37.0) g/dl RDW 18.4 H (11.5-14.5) % Plt Count 135 (120.0-450.0) 10^3/uL Gran % 88.9 H (50.0-68.0) % Lymph % (Auto) 5.3 L (22.0-35.0) % [place] % (Auto) 5.8 (1.0-6.0) % Eos % (Auto) 0.0 L (1.5-5.0) % Baso % (Auto) 0.0 (0.0-3.0) % Gran # 4.72 (1.4-6.5) Lymph # (Auto) 0.3 L (1.2-3.4) [place] # (Auto) 0.3 (0.1-0.6) Eos # (Auto) 0.0 (0.0-0.7) Baso # (Auto) 0.00 (0.0-2.0) K/mm3 Neutrophils % (Manual) (50.0-70.0) % Band Neutrophils % (0-2) % Lymphocytes % (Manual) (22.0-35.0) % Monocytes % (Manual) (1.0-6.0) % Platelet Evaluation (NORMAL) Hypochromasia Anisocytosis (manual) Helmet Cells Schistocytes Haptoglobin (30.0-200.0) mg/dL Sodium 139 (132-148) mmol/L Potassium 4.3 (3.6-5.0) mmol/L Chloride 99 (98-107) mmol/L Carbon Dioxide 28 (21-33) mmol/L Anion Gap 16 (10-20) BUN 26 H (7-21) mg/dL Creatinine 1.9 H (0.8-1.5) mg/dl Est GFR ( Amer) 43 Est GFR (Non-Af Amer) 36 POC Glucose (mg/dL) 261 H (65-110) mg/dL Random Glucose 264 H (70-110) mg/dL Fructosamine (190-270) umol/L Calcium 8.9 (8.4-10.5) mg/dL Phosphorus 2.8 (2.5-4.5) mg/dL Magnesium 2.0 (1.7-2.2) mg/dL Ferritin ng/mL Total Bilirubin 0.5 (0.2-1.3) mg/dL Direct Bilirubin 0.5 H (0.0-0.4) mg/dL AST 30 (17-59) U/L ALT 27 (7-56) U/L Alkaline Phosphatase 85 (38-126) U/L Total Protein 5.4 L (5.8-8.3) g/dL Albumin 3.1 (3.0-4.8) g/dL Globulin 2.3 gm/dL Albumin/Globulin Ratio 1.3 (1.1-1.8) Vitamin B12 (239-931) pg/mL Folate ng/mL Blood Type Antibody Screen Crossmatch BBK History Checked 03/07/18 03/06/18 03/06/18 Range/Units 00:50 20:58 18:39 WBC 5.6 (4.5-11.0) 10^3/ul RBC 4.01 (3.5-6.1) 10^6/uL Hgb 9.9 L D (14.0-18.0) g/dL Hct 31.4 L (42.0-52.0) % MCV 78.3 L D (80.0-105.0) fl MCH 24.7 L (25.0-35.0) pg MCHC 31.5 (31.0-37.0) g/dl RDW 18.3 H (11.5-14.5) % Plt Count 135 (120.0-450.0) 10^3/uL Gran % 90.6 H (50.0-68.0) % Lymph % (Auto) 4.0 L (22.0-35.0) % [place] % (Auto) 5.4 (1.0-6.0) % Eos % (Auto) 0.0 L (1.5-5.0) % Baso % (Auto) 0.0 (0.0-3.0) % Gran # 5.04 (1.4-6.5) Lymph # (Auto) 0.2 L (1.2-3.4) [place] # (Auto) 0.3 (0.1-0.6) Eos # (Auto) 0.0 (0.0-0.7) Baso # (Auto) 0.00 (0.0-2.0) K/mm3 Neutrophils % (Manual) 91 H (50.0-70.0) % Band Neutrophils % 4 H (0-2) % Lymphocytes % (Manual) 3 L (22.0-35.0) % Monocytes % (Manual) 2 (1.0-6.0) % Platelet Evaluation Normal (NORMAL) Hypochromasia 1+ Anisocytosis (manual) 1+ Helmet Cells 1+ Schistocytes Moderate Haptoglobin (30.0-200.0) mg/dL Sodium 139 (132-148) mmol/L Potassium 4.8 (3.6-5.0) mmol/L Chloride 99 (98-107) mmol/L Carbon Dioxide 33 (21-33) mmol/L Anion Gap 12 (10-20) BUN 19 (7-21) mg/dL Creatinine 1.6 H (0.8-1.5) mg/dl Est GFR ( Amer) 53 Est GFR (Non-Af Amer) 44 POC Glucose (mg/dL) 116 H (65-110) mg/dL Random Glucose 166 H (70-110) mg/dL Fructosamine (190-270) umol/L Calcium 8.4 (8.4-10.5) mg/dL Phosphorus (2.5-4.5) mg/dL Magnesium (1.7-2.2) mg/dL Ferritin ng/mL Total Bilirubin (0.2-1.3) mg/dL Direct Bilirubin (0.0-0.4) mg/dL AST (17-59) U/L ALT (7-56) U/L Alkaline Phosphatase (38-126) U/L Total Protein (5.8-8.3) g/dL Albumin (3.0-4.8) g/dL Globulin gm/dL Albumin/Globulin Ratio (1.1-1.8) Vitamin B12 (239-931) pg/mL Folate ng/mL Blood Type Antibody Screen Crossmatch BBK History Checked 03/06/18 03/06/18 03/06/18 Range/Units 16:47 16:30 16:18 WBC 5.1 (4.5-11.0) 10^3/ul RBC 3.24 L (3.5-6.1) 10^6/uL Hgb 7.6 L (14.0-18.0) g/dL Hct 24.1 L (42.0-52.0) % MCV 74.4 L (80.0-105.0) fl MCH 23.5 L (25.0-35.0) pg MCHC 31.5 (31.0-37.0) g/dl RDW 19.0 H (11.5-14.5) % Plt Count 134 (120.0-450.0) 10^3/uL Gran % (50.0-68.0) % Lymph % (Auto) (22.0-35.0) % [place] % (Auto) (1.0-6.0) % Eos % (Auto) (1.5-5.0) % Baso % (Auto) (0.0-3.0) % Gran # (1.4-6.5) Lymph # (Auto) (1.2-3.4) [place] # (Auto) (0.1-0.6) Eos # (Auto) (0.0-0.7) Baso # (Auto) (0.0-2.0) K/mm3 Neutrophils % (Manual) (50.0-70.0) % Band Neutrophils % (0-2) % Lymphocytes % (Manual) (22.0-35.0) % Monocytes % (Manual) (1.0-6.0) % Platelet Evaluation (NORMAL) Hypochromasia Anisocytosis (manual) Helmet Cells Schistocytes Haptoglobin (30.0-200.0) mg/dL Sodium (132-148) mmol/L Potassium (3.6-5.0) mmol/L Chloride (98-107) mmol/L Carbon Dioxide (21-33) mmol/L Anion Gap (10-20) BUN (7-21) mg/dL Creatinine (0.8-1.5) mg/dl Est GFR ( Amer) Est GFR (Non-Af Amer) POC Glucose (mg/dL) 152 H (65-110) mg/dL Random Glucose (70-110) mg/dL Fructosamine (190-270) umol/L Calcium (8.4-10.5) mg/dL Phosphorus (2.5-4.5) mg/dL Magnesium (1.7-2.2) mg/dL Ferritin ng/mL Total Bilirubin (0.2-1.3) mg/dL Direct Bilirubin (0.0-0.4) mg/dL AST (17-59) U/L ALT (7-56) U/L Alkaline Phosphatase (38-126) U/L Total Protein (5.8-8.3) g/dL Albumin (3.0-4.8) g/dL Globulin gm/dL Albumin/Globulin Ratio (1.1-1.8) Vitamin B12 (239-931) pg/mL Folate ng/mL Blood Type O POSITIVE Antibody Screen Negative Crossmatch See Detail BBK History Checked Patient has bt 03/06/18 03/06/18 03/06/18 Range/Units 11:34 09:50 09:50 WBC (4.5-11.0) 10^3/ul RBC (3.5-6.1) 10^6/uL Hgb (14.0-18.0) g/dL Hct (42.0-52.0) % MCV (80.0-105.0) fl MCH (25.0-35.0) pg MCHC (31.0-37.0) g/dl RDW (11.5-14.5) % Plt Count (120.0-450.0) 10^3/uL Gran % (50.0-68.0) % Lymph % (Auto) (22.0-35.0) % [place] % (Auto) (1.0-6.0) % Eos % (Auto) (1.5-5.0) % Baso % (Auto) (0.0-3.0) % Gran # (1.4-6.5) Lymph # (Auto) (1.2-3.4) [place] # (Auto) (0.1-0.6) Eos # (Auto) (0.0-0.7) Baso # (Auto) (0.0-2.0) K/mm3 Neutrophils % (Manual) (50.0-70.0) % Band Neutrophils % (0-2) % Lymphocytes % (Manual) (22.0-35.0) % Monocytes % (Manual) (1.0-6.0) % Platelet Evaluation (NORMAL) Hypochromasia Anisocytosis (manual) Helmet Cells Schistocytes Haptoglobin 126.6 (30.0-200.0) mg/dL Sodium (132-148) mmol/L Potassium (3.6-5.0) mmol/L Chloride (98-107) mmol/L Carbon Dioxide (21-33) mmol/L Anion Gap (10-20) BUN (7-21) mg/dL Creatinine (0.8-1.5) mg/dl Est GFR ( Amer) Est GFR (Non-Af Amer) POC Glucose (mg/dL) 102 (65-110) mg/dL Random Glucose (70-110) mg/dL Fructosamine (190-270) umol/L Calcium (8.4-10.5) mg/dL Phosphorus (2.5-4.5) mg/dL Magnesium (1.7-2.2) mg/dL Ferritin 133.0 ng/mL Total Bilirubin (0.2-1.3) mg/dL Direct Bilirubin (0.0-0.4) mg/dL AST (17-59) U/L ALT (7-56) U/L Alkaline Phosphatase (38-126) U/L Total Protein (5.8-8.3) g/dL Albumin (3.0-4.8) g/dL Globulin gm/dL Albumin/Globulin Ratio (1.1-1.8) Vitamin B12 > 1000 H (239-931) pg/mL Folate 10.0 ng/mL Blood Type Antibody Screen Crossmatch BBK History Checked 03/06/18 03/03/18 Range/Units 09:50 11:00 WBC (4.5-11.0) 10^3/ul RBC (3.5-6.1) 10^6/uL Hgb (14.0-18.0) g/dL Hct (42.0-52.0) % MCV (80.0-105.0) fl MCH (25.0-35.0) pg MCHC (31.0-37.0) g/dl RDW (11.5-14.5) % Plt Count (120.0-450.0) 10^3/uL Gran % (50.0-68.0) % Lymph % (Auto) (22.0-35.0) % [place] % (Auto) (1.0-6.0) % Eos % (Auto) (1.5-5.0) % Baso % (Auto) (0.0-3.0) % Gran # (1.4-6.5) Lymph # (Auto) (1.2-3.4) [place] # (Auto) (0.1-0.6) Eos # (Auto) (0.0-0.7) Baso # (Auto) (0.0-2.0) K/mm3 Neutrophils % (Manual) (50.0-70.0) % Band Neutrophils % (0-2) % Lymphocytes % (Manual) (22.0-35.0) % Monocytes % (Manual) (1.0-6.0) % Platelet Evaluation (NORMAL) Hypochromasia Anisocytosis (manual) Helmet Cells Schistocytes Haptoglobin (30.0-200.0) mg/dL Sodium (132-148) mmol/L Potassium (3.6-5.0) mmol/L Chloride (98-107) mmol/L Carbon Dioxide (21-33) mmol/L Anion Gap (10-20) BUN (7-21) mg/dL Creatinine (0.8-1.5) mg/dl Est GFR ( Amer) Est GFR (Non-Af Amer) POC Glucose (mg/dL) (65-110) mg/dL Random Glucose (70-110) mg/dL Fructosamine 492 H (190-270) umol/L Calcium (8.4-10.5) mg/dL Phosphorus (2.5-4.5) mg/dL Magnesium (1.7-2.2) mg/dL Ferritin ng/mL Total Bilirubin (0.2-1.3) mg/dL Direct Bilirubin (0.0-0.4) mg/dL AST (17-59) U/L ALT (7-56) U/L Alkaline Phosphatase (38-126) U/L Total Protein (5.8-8.3) g/dL Albumin (3.0-4.8) g/dL Globulin gm/dL Albumin/Globulin Ratio (1.1-1.8) Vitamin B12 (239-931) pg/mL Folate ng/mL Blood Type Antibody Screen Crossmatch See Detail BBK History Checked Laboratory Results - last 24 hr 03/03/18 03/06/18 03/06/18 11:00 09:50 09:50 WBC RBC Hgb Hct MCV MCH MCHC RDW Plt Count Gran % Lymph % (Auto) [place] % (Auto) Eos % (Auto) Baso % (Auto) Gran # Lymph # (Auto) [place] # (Auto) Eos # (Auto) Baso # (Auto) Neutrophils % (Manual) Band Neutrophils % Lymphocytes % (Manual) Monocytes % (Manual) Platelet Evaluation Hypochromasia Anisocytosis (manual) Helmet Cells Schistocytes Haptoglobin 126.6 Sodium Potassium Chloride Carbon Dioxide Anion Gap BUN Creatinine Est GFR ( Amer) Est GFR (Non-Af Amer) POC Glucose (mg/dL) Random Glucose Fructosamine 492 H Calcium Phosphorus Magnesium Ferritin Total Bilirubin Direct Bilirubin AST ALT Alkaline Phosphatase Total Protein Albumin Globulin Albumin/Globulin Ratio Vitamin B12 Folate Blood Type Antibody Screen Crossmatch See Detail BBK History Checked 03/06/18 03/06/18 03/06/18 09:50 11:34 16:18 WBC RBC Hgb Hct MCV MCH MCHC RDW Plt Count Gran % Lymph % (Auto) [place] % (Auto) Eos % (Auto) Baso % (Auto) Gran # Lymph # (Auto) [place] # (Auto) Eos # (Auto) Baso # (Auto) Neutrophils % (Manual) Band Neutrophils % Lymphocytes % (Manual) Monocytes % (Manual) Platelet Evaluation Hypochromasia Anisocytosis (manual) Helmet Cells Schistocytes Haptoglobin Sodium Potassium Chloride Carbon Dioxide Anion Gap BUN Creatinine Est GFR ( Amer) Est GFR (Non-Af Amer) POC Glucose (mg/dL) 102 152 H Random Glucose Fructosamine Calcium Phosphorus Magnesium Ferritin 133.0 Total Bilirubin Direct Bilirubin AST ALT Alkaline Phosphatase Total Protein Albumin Globulin Albumin/Globulin Ratio Vitamin B12 > 1000 H Folate 10.0 Blood Type Antibody Screen Crossmatch BBK History Checked 03/06/18 03/06/18 03/06/18 16:30 16:47 18:39 WBC 5.1 RBC 3.24 L Hgb 7.6 L Hct 24.1 L MCV 74.4 L MCH 23.5 L MCHC 31.5 RDW 19.0 H Plt Count 134 Gran % Lymph % (Auto) [place] % (Auto) Eos % (Auto) Baso % (Auto) Gran # Lymph # (Auto) [place] # (Auto) Eos # (Auto) Baso # (Auto) Neutrophils % (Manual) Band Neutrophils % Lymphocytes % (Manual) Monocytes % (Manual) Platelet Evaluation Hypochromasia Anisocytosis (manual) Helmet Cells Schistocytes Haptoglobin Sodium 139 Potassium 4.8 Chloride 99 Carbon Dioxide 33 Anion Gap 12 BUN 19 Creatinine 1.6 H Est GFR ( Amer) 53 Est GFR (Non-Af Amer) 44 POC Glucose (mg/dL) Random Glucose 166 H Fructosamine Calcium 8.4 Phosphorus Magnesium Ferritin Total Bilirubin Direct Bilirubin AST ALT Alkaline Phosphatase Total Protein Albumin Globulin Albumin/Globulin Ratio Vitamin B12 Folate Blood Type O POSITIVE Antibody Screen Negative Crossmatch See Detail BBK History Checked Patient has bt 03/06/18 03/07/18 03/07/18 20:58 00:50 05:30 WBC 5.6 5.3 RBC 4.01 4.04 Hgb 9.9 L D 9.9 L Hct 31.4 L 31.8 L MCV 78.3 L D 78.7 L MCH 24.7 L 24.5 L MCHC 31.5 31.1 RDW 18.3 H 18.4 H Plt Count 135 135 Gran % 90.6 H 88.9 H Lymph % (Auto) 4.0 L 5.3 L [place] % (Auto) 5.4 5.8 Eos % (Auto) 0.0 L 0.0 L Baso % (Auto) 0.0 0.0 Gran # 5.04 4.72 Lymph # (Auto) 0.2 L 0.3 L [place] # (Auto) 0.3 0.3 Eos # (Auto) 0.0 0.0 Baso # (Auto) 0.00 0.00 Neutrophils % (Manual) 91 H Band Neutrophils % 4 H Lymphocytes % (Manual) 3 L Monocytes % (Manual) 2 Platelet Evaluation Normal Hypochromasia 1+ Anisocytosis (manual) 1+ Helmet Cells 1+ Schistocytes Moderate Haptoglobin Sodium Potassium Chloride Carbon Dioxide Anion Gap BUN Creatinine Est GFR ( Amer) Est GFR (Non-Af Amer) POC Glucose (mg/dL) 116 H Random Glucose Fructosamine Calcium Phosphorus Magnesium Ferritin Total Bilirubin Direct Bilirubin AST ALT Alkaline Phosphatase Total Protein Albumin Globulin Albumin/Globulin Ratio Vitamin B12 Folate Blood Type Antibody Screen Crossmatch BBK History Checked 03/07/18 03/07/18 05:30 07:58 WBC RBC Hgb Hct MCV MCH MCHC RDW Plt Count Gran % Lymph % (Auto) [place] % (Auto) Eos % (Auto) Baso % (Auto) Gran # Lymph # (Auto) [place] # (Auto) Eos # (Auto) Baso # (Auto) Neutrophils % (Manual) Band Neutrophils % Lymphocytes % (Manual) Monocytes % (Manual) Platelet Evaluation Hypochromasia Anisocytosis (manual) Helmet Cells Schistocytes Haptoglobin Sodium 139 Potassium 4.3 Chloride 99 Carbon Dioxide 28 Anion Gap 16 BUN 26 H Creatinine 1.9 H Est GFR ( Amer) 43 Est GFR (Non-Af Amer) 36 POC Glucose (mg/dL) 261 H Random Glucose 264 H Fructosamine Calcium 8.9 Phosphorus 2.8 Magnesium 2.0 Ferritin Total Bilirubin 0.5 Direct Bilirubin 0.5 H AST 30 ALT 27 Alkaline Phosphatase 85 Total Protein 5.4 L Albumin 3.1 Globulin 2.3 Albumin/Globulin Ratio 1.3 Vitamin B12 Folate Blood Type Antibody Screen Crossmatch BBK History Checked Critical Care Progress Note - Nutrition Nutrition: Nutrition Category Date Time Status Diabetic [Consistent Carbohydrate] [DIET] Diets 03/03/18 Dinner Ordered Assessment/Plan - Assessment and Plan (Free Text) Plan: Patient seen and examined on rounds with resident, agree with note with following additions/exceptions: Patient is 67 yo male w/PMHx of aortic valve replacement, anemia, renal tr ansplant in 2006, hyperlipidemia, hypertension, insulin dependent diabetes, secondary hyperparathyroidism, polycystic kidney disease, chronic kidney disease, pulmonary hypertension admitted with metboalic acidosis 2/2 worsening renal failure, severe sepsis, initiated on HD on this admission. Currently afebrile, HD stable, comfortable in NAD Labs, imaging, chart reviewed HH stable today, no overt signs of bleeding Patient to undergo cardiac cath today ESRD n HD Anemia Hx renal transplant HTN IDDM Pulm HTN Recommend: - supp o2 as needed, duonebs PRN, - Broad spectrum abx as per ID, follow up cultures - BP control - HD as per renal - monitor CBC - GI follow up - taper Solucortef 25mg Q24hr - FS control - resume diet - monitor electrolytes - follow up cardio - outpatient follow up for AAA as per discussion with IR - GI ppx - DVT ppx, HSQ - monitor in MICU
[2018-03-07] MEDS: POLYETHYLENE GLYCOL 3350 17 GM/Dose PACKET PO SCH ×2 (10:30→17:03)
[2018-03-07] MEDS: Ammonium Lactate 12% Lotion (225 g) EXT SCH ×3 (10:30→17:05)
[2018-03-07] MEDS ORDERED: Sodium Chloride 0.45% 1,000 ML IV SCH (11:00)
--- NOTE | 2018-03-07 12:47 | CARDCATH ---
PROCEDURE DATE: 03/07/2018 CARDIAC CATHETERIZATION HISTORY: The patient is a 67-year-old gentleman, who presented with hypotension and malaise. His past medical history is complicated, which includes end-stage renal disease after failure of his kidney transplant. He has stenotic prosthetic aortic valve placed in 2002. Echocardiogram revealed a peak gradient of 93 mmHg. In addition, the patient has a large chronic abdominal aortic aneurysm, apparently followed by Dr. Dewitt at [facility]. Because of these symptoms and his stenotic prosthetic aortic valve, the cardiac catheterization was recommended. PROCEDURE: Right and left heart catheterization with coronary arteriography, supra-aortic valvular injection. I performed moderate sedation, which included the presence of an independent trained observer that assisted in monitoring the patient's level of consciousness and physiologic status. After administration of Versed and fentanyl, my intra service time was 30 minutes. The findings on catheterization included right heart pressures, which revealed right mean pressure of 15 mmHg, his PA pressure was 45/20 with a mean of 32 mmHg and mean pulmonary capillary wedge pressure was 20. His supra-aortic valvular injection revealed no aortic insufficiency. His coronary arteries were visualized and found to have no significant coronary blockages. Manual compression was used to close the femoral artery site. The patient tolerated the procedure well. In summary, the procedure revealed unremarkable coronary arteries. Echocardiogram confirmed stenotic prosthetic aortic valve with peak gradient of 93 mmHg. No aortic insufficiency. Mild pulmonary hypertension. Large abdominal aortic aneurysm. End-stage renal disease with failure of a transplanted kidney. Given these findings, we will get the patient transferred to [facility] for possible TAVR through the apical access. Afterwards, his vascular surgeons at [facility] will alk Dr. Dewitt to reevaluate his abdominal aortic aneurysm. Carlos Shane MD
--- NOTE | 2018-03-07 12:59 | PN ---
DATE: 03/07/2018 SUBJECTIVE: The patient is seen in the cleaning laborer. The patient is in the process of being taken for the cardiac cleaning laborer today, which is needed for evaluation of the severe aortic stenosis which was recently diagnosed on the echocardiogram. The patient's overnight nurse's notes were reviewed.. The patient continued on dialysis yesterday. The patient was found to be alert, awake, oriented with episodic confusion. OBJECTIVE: VITAL SIGNS: T-max 99.1. Telemetry shows sinus rhythm, sinus tachycardia, heart rate in low 100s. Blood pressure 149/92, 151/86, 164/96, 179/94; respiration 16-20, O2 saturation 98-99%. HEENT: Head examination: Normocephalic and atraumatic. HEENT examination shows pale conjunctivae. Anicteric sclerae. No oropharyngeal lesion. NECK: No neck rigidity. CHEST: Kyphosis. Positive median sternotomy surgical scar noted. Decreased breath sounds noted at the bases. Occasional rhonchi, upper lung jenkins anteriorly noted. CARDIOVASCULAR: Shows S1, S2, tachycardic rhythm. Positive systolic murmur, left sternal border, left second intercostal space, right second intercostal space. ABDOMEN: Soft. Positive bowel sounds. Protuberant. Positive mid abdominal pulsation noted. GENITALIA: Male. EXTREMITIES: Shows positive swelling of the lower extremity. Positive left upper extremity AV fistula, positive thrill. MUSCULOSKELETAL: Examination shows a body mass index of 17. NEUROLOGIC: The patient is alert, awake, responsive, is able to move upper and lower extremity without assistance. Gait examination is not tested. DIAGNOSTICS: 03/07/2018, WBC 5.3, hemoglobin and hematocrit 9.9 and 32, platelets 135. Granulocytes, 89% segs. Sodium 139, potassium 4.3, chloride 99, CO2 28, anion gap 16, BUN 26, creatinine 1.9. Creatinine has come down to 1.9 from 7.4. BUN has come down to 26 from 115. Glucose 264. Fructosamine is 492, which is elevated. The urine and blood cultures are all negative. The patient received two units of PRBC. The patient had a venous Doppler of upper and lower extremity which was all negative. The patient's chest x-ray from 03/06/2018 was reviewed.. Echocardiogram results were reviewed. IMPRESSION AND PLAN: 1. Systemic inflammatory response syndrome with tachycardia, hypotension, tachypnea and hypoxemia. 2. Severe bioprosthetic aortic valve stenosis with poorly visualized bioprosthetic aortic valve. 3. Left ventricular ejection fraction of 63% with moderate concentric left ventricular hypertrophy and grade I abnormal relaxation pattern. 4. Moderately thickened mitral valve. 5. Mild tricuspid and pulmonic regurgitation. 6. Moderate bilateral pleural effusion. 7. Small pericardial effusion. 8. History of renal transplant with possible renal transplant failure, requiring dialysis. 9. History of end-stage renal disease, hemodialysis dependent, status post renal transplant. 10. Possible left lower lobe pneumonia and elevated right hemidiaphragm. 11. Status post aortic valve replacement. 12. Status post right upper extremity midline placement. 13. Microcytic anemia. 14. Status post packed red blood cell transfusion x2. 15. Granulocytosis. 16. Bandemia. 17. Increased anion gap metabolic acidosis. 18. Hypokalemia. 19. Status post non-hemolyzed hyperkalemia. 20. Uncontrolled diabetes mellitus with hemoglobin A1c of 10.4 and fructosamine of 492. 21. History of transfusion-dependent anemia. 22. Hyperprolactinemia. 23. Secondary hyperparathyroidism with elevated parathyroid hormone of greater than 469. 24. Hypocalcemia. 25. Hyperphosphatemia. 26. Proteinuria. 27. Status post hyponatremia. 28. Questionable and possible iron deficiency. 29. renal failure with intermittent hemodialysis requiring renal failure via the left upper extremity arteriovenous fistula. 30. Sinus tachycardia. 31. Left axis deviation. 32. Hypertensive cardiovascular disease. 33. Hyperparathyroidism. 34. Anemia of chronic kidney disease. 35. Immunosuppressed status. 36. Chronic kidney disease stage IV. 37. Abdominal aortic aneurysm. 38. Critical aortic stenosis of a bioprosthetic aortic valve. 39. Failure of the transplanted kidneys. 40. History of polycystic kidney disease. 41. History of hypertension. 42. History of pulmonary hypertension. 43. History of bilateral lower extremity venous stasis. 1. Systemic inflammatory response syndrome. 2. Low-grade fever. 3. Sinus tachycardia. 4. Hypertension. 5. Tachypnea. 6. Tachycardia. 7. Hypertension. 8. Leukopenia. 9. Microcytic anemia with decreasing hemoglobin and hematocrit. 10. Granulocytosis. 11. Increased anion gap metabolic acidosis and lactic acidosis. 12. Status post non-hemolyzed hyperkalemia, now hypokalemia. 13. Insulin-requiring diabetes mellitus with hemoglobin A1c of 10.4. 14. Questionable iron deficiency. 15. Intermittent hemodialysis-requiring renal failure. 16. Increased anion gap metabolic acidosis. 17. Possible diastolic congestive heart failure with elevated BNP. 18. Hyperprocalcitoninemia. 19. Protein malnutrition. 20. Hypoalbuminemia. 21. Bilateral lower extremity venous stasis. 22. Secondary hyperparathyroidism with elevated PTH level of greater than 469. 23. Status post 1 unit PRBC transfusion. 24. Status post right upper extremity midline placement. 25. Bilateral pleural effusion, right more than the left. 26. Questionable left lower lobe pneumonia with elevated right hemidiaphragm. 27. Status post aortic valve replacement. 28. Pulmonary vascular congestion. 29. Hypoproliferative erythroid response. 30. Anemia of chronic disease. 31. Mycotic elongated toenails, status post debridement. 32. Poor hygienic status. 33. Acute kidney injury with underlying chronic kidney disease, status post renal transplant and history of intermittent history of end-stage renal disease, hemodialysis dependent in the past. 1. Systemic inflammatory response syndrome secondary to uremia and acute renal failure. 2. Hypotension. 3. Tachycardia. 4. Tachypnea. 5. Leukopenia. 6. Anemia. 7. Granulocytosis. 8. Increased anion gap metabolic acidosis and lactic acidosis. 9. Severe metabolic acidosis. 10. Questionable uncontrolled type 1 diabetes mellitus with hemoglobin A1c of 10.4. 11. Secondary hyperparathyroidism with elevated PTH level. 12. Hyperprocalcitoninemia. 13. Non-hemolyzed hyperkalemia. 14. Hyponatremia. 15. Hyperglycemia. 16. Hyperphosphatemia. 17. Proteinuria. 18. Bacteriuria. 19. Questionable left lower lobe pneumonia. 20. Bilateral pleural effusion. 21. Cardiomegaly. 22. Aortic valve replacement. 23. Left axis deviation. 24. History of polycystic kidney disease. 25. Abdominal aortic aneurysm. 26. Mycotic elongated toenails and xerostomia. 27. Status post bilateral feet toenail debridement. 28. Pulmonary hypertension. 29. Possible questionable sepsis versus systemic inflammatory response syndrome. 30. Status post renal transplant, on immunosuppression. 31. Insulin-requiring diabetes mellitus. 32. Deconditioning. 33. Hypocalcemia. 1. Hypotensive shock versus questionable septic shock with hyperprocalcitoninemia. 2. History of polycystic kidney disease, history of renal transplant. 3. Lactic acidosis. 4. Increased anion gap metabolic acidosis. 5. Tachycardia. 6. Tachypnea. 7. Leukopenia, anemia. 8. Granulocytosis. 9. Lactic acidosis. 10. Increased anion gap metabolic acidosis. 11. Severe metabolic acidosis. 12. Hyponatremia. 13. Status post hyperkalemia. 14. Hemodialysis requiring renal failure. 15. Hypocalcemia. 16. Hyperphosphatemia. 17. Hypomagnesemia. 18. Protein malnutrition. 19. Hypoalbuminemia. 20. Secondary hyperparathyroidism with elevated PTH of 469. 21. Hyperprocalcitoninemia. 22. Right upper lobe pneumonia. 23. Bibasilar atelectasis and bilateral pleural effusion. 24. Status post aortic valve replacement. 25. Status post aortic valve replacement with proximal aortic valve graft. 26. Descending aortic aneurysm. 27. Bilateral pleural effusion, left more than the right. 28. Dilated esophagus. 29. Multiple hepatic cyst and masses. 30. Gallbladder distention. 31. Polycystic kidney disease. 32. An 8.3-cm infrarenal abdominal aortic aneurysm. 33. Chronic infrarenal abdominal aortic dissection at and below the level of the renal arteries. 34. Diverticulosis of the colon. 35. Hydronephrosis of the transplanted kidney. 36. Polycystic kidney disease. 37. Left axis deviation. 38. Coronary ischemic changes. 39. 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 40. Acute renal failure with acute kidney injury with underlying chronic kidney disease and possible failing transplanted renal allograft. 41. Questionable and possible septic versus hypovolemic and hypotensive shock. 42. High anion gap metabolic acidosis. 1. Severe symptomatic hypotension. 2. Severe symptomatic anemia with symptoms of fatigue, tiredness, shortness of breath and dyspnea on exertion. 3. Worsening renal failure with worsening chronic kidney disease. 4. Hyponatremia. 5. Hyperkalemia. 6. Anemia of chronic kidney disease with iron-deficiency anemia. 7. Granulocytosis. 8. Lymphocytopenia. 9. Hyponatremia. 10. Non-hemolyzed hyperkalemia. 11. Increased anion gap metabolic acidosis. 12. History of end-stage renal disease, hemodialysis dependent in the past with status post renal transplant. 13. Insulin-requiring diabetes mellitus with hyperglycemia. 14. Hypocalcemia. PLAN: At this time, the patient is proceeding for a cardiac catheterization today to determine the severity of the aortic stenosis of the bioprosthetic aortic valve and depending upon the results of those cardiac catheterizations, the patient's further recommendation from Cardiology will be awaited. The patient has been ordered serial labs. CURRENT CONSULTATIONS: Nephrology, Cardiology, Gastroenterology, Hematology/Oncology, Infectious Disease, Interventional Radiology, Urology, Podiatry. The patient has been ordered Colace 100 three times a day, Vibramycin 100 IV every 12 hours, Fergon 324 twice a day, Humalog high-dose sliding scale coverage, K-Dur 20 mEq was ordered by the ER and ICU phd intern, Lipitor 20 daily, Lopressor increased to 50 mg twice a day, meropenem 500 IV every 24 hours, MiraLax 17 g twice a day, Os-Krystian 500 mg twice a day, PhosLo 67 mg with meals, midodrine was started for the hypotension 5 mg three times a day which will be decreased to once a day.. The patient's blood pressure has improved. The patient is on Lipitor 40 mg daily, meropenem 500 IV every 24 hours, midodrine decreased to 5 mg daily, Prograf 1 mg every evening and 2 mg in the morning, Protonix 40 mg daily, Rocaltrol 0.5 mcg daily, Sensipar 30 mg daily. The patient's Solu-Cortef was decreased to 25 mg IV daily, Tessalon Perles 200 three times a day, Tylenol p.r.n., Xopenex nebulizer 0.63 every 6 hours, Zetia 10 mg daily, Zofran 4 mg IV every 4 hours p.r.n. If the patient's blood pressure stays acceptable, midodrine will be considered to be discontinued. At present, the patient further management will be dependent upon the patient's clinical condition, hemodynamic status and as per the patient response to therapeutic intervention, as per the patient's diagnostic test results and as per recommendation by all the physician involved in the care of the patient. The patient's overall prognosis is guarded to poor, which has been explained to the patient at length on multiple occasions during the multiple office visits and multiple previous hospitalizations and even this hospitalization. Dictated and electronically signed, not read. Mart Knox MD [facility] # [id number]
--- NOTE | 2018-03-07 16:13 | CP.PCM.PN ---
Subjective - Date & Time of Evaluation Date of Evaluation: 03/07/18 Time of Evaluation: 09:40 - Subjective Subjective: No fevers, not in distress, for cardiac cath. Objective - Vital Signs/Intake and Output Vital Signs (last 24 hours): Temp Pulse Resp BP Pulse Ox 99.1 F 103 H 29 H 166/92 H 100 03/06/18 21:24 03/06/18 21:24 03/06/18 21:24 03/06/18 21:24 03/06/18 19:00 Intake and Output: 03/06/18 03/07/18 18:59 06:59 Intake Total 0 1095 Output Total 770 Balance 0 325 - Medications Medications: Current Medications Acetaminophen (Tylenol 325mg Tab) 650 mg PO Q6 PRN PRN Reason: TEMP>=99.5F Acetaminophen (Tylenol 650 Mg Supp) 650 mg RC Q6H PRN PRN Reason: TEMP>=99.5F Acetaminophen (Tylenol 650 Mg Supp) 650 mg RC Q6H PRN PRN Reason: Headache Acetaminophen (Tylenol 325mg Tab) 650 mg PO Q6H PRN PRN Reason: Headache Atorvastatin Calcium (Lipitor) 20 mg PO DIN [facility] Last Admin: 03/06/18 18:10 Dose: 20 mg Benzonatate (Tessalon Perles) 200 mg PO TID [facility] Last Admin: 03/06/18 18:03 Dose: Not Given Calcitriol (Rocaltrol) 0.5 mcg PO DAILY [facility] Last Admin: 03/06/18 14:31 Dose: Not Given Calcium Acetate (Phoslo) 667 mg PO WM [facility] Last Admin: 03/06/18 18:11 Dose: 667 mg Calcium Carbonate (Oscal) 500 mg PO BID [facility] Last Admin: 03/06/18 18:09 Dose: 500 mg Cinacalcet (Sensipar) 30 mg PO DAILY [facility] Docusate Sodium (Colace) 100 mg PO TID [facility] Last Admin: 03/06/18 18:01 Dose: Not Given Ezetimibe (Zetia) 10 mg PO DAILY [facility] Last Admin: 03/06/18 09:43 Dose: Not Given Ferrous Gluconate (Fergon) 324 mg PO BID [facility] Last Admin: 03/06/18 18:10 Dose: 324 mg Hydrocortisone Sodium Succinate (Solu-Cortef) 25 mg IVP Q12 [facility] Last Admin: 03/06/18 14:01 Dose: 25 mg Doxycycline Hyclate 100 mg/ (Sodium Chloride) 100 mls @ 100 mls/hr IVPB Q12 [facility]; Protocol Last Admin: 03/06/18 14:36 Dose: 100 mls/hr Meropenem 500 mg/ Sodium (Chloride) 50 mls @ 100 mls/hr IVPB Q24H [facility]; Protocol Stop: 03/10/18 22:46 Last Admin: 03/05/18 21:59 Dose: 100 mls/hr Insulin Human Lispro (Humalog High) 0 units SC ACHS [facility]; Protocol Last Admin: 03/06/18 19:11 Dose: 2 u Lactic Acid (Lac-Hydrin 12% Lotion (225 G)) 0 gm EXT TID [facility] Last Admin: 03/06/18 18:08 Dose: 1 applic Levalbuterol HCl (Xopenex) 0.63 mg IH [id number] [facility] Last Admin: 03/06/18 20:01 Dose: 0.63 mg Metoprolol Tartrate (Lopressor) 25 mg PO BID [facility] Last Admin: 03/06/18 18:10 Dose: 25 mg Midodrine (Proamatine) 5 mg PO TID [facility] Last Admin: 03/06/18 18:03 Dose: Not Given Ondansetron HCl (Zofran Inj) 4 mg IVP Q4H PRN PRN Reason: Nausea/Vomiting Pantoprazole Sodium (Protonix Ec Tab) 40 mg PO 0600 [facility] Last Admin: 03/06/18 07:39 Dose: 40 mg Polyethylene Glycol (Miralax) 17 gm PO BID [facility] Last Admin: 03/06/18 18:02 Dose: Not Given Tacrolimus (Prograf Cap) 1 mg PO QPM [facility] Last Admin: 03/06/18 18:09 Dose: 1 mg Tacrolimus (Prograf Cap) 2 mg PO QAM [facility] Last Admin: 03/06/18 14:30 Dose: 2 mg - Labs Labs: 03/06/18 16:30 03/06/18 18:39 PT 12.8 SECONDS (9.4-12.5) H 03/03/18 10:20 INR 1.11 03/03/18 10:20 APTT 27.9 Seconds (25.1-36.5) 03/03/18 10:20 - Constitutional Appears: Chronically Ill - Head Exam Head Exam: NORMAL INSPECTION - Respiratory Exam Respiratory Exam: Decreased Breath Sounds - Cardiovascular Exam Cardiovascular Exam: +S1, +S2 - GI/Abdominal Exam GI & Abdominal Exam: Soft. absent: Tenderness Assessment and Plan - Assessment and Plan (Free Text) Plan: Assessment systemic inflammatory response syndrome, consider due to worsening renal failure with uremia, R/O sepsis due to right sided HCAP history of sepsis due to gram negative bacilli bacteremia on top of systemic viral illness with Influenza polycystic kidney disease S/P renal transplant in 2006 HTN abdominal aortic aneurysm with history of aortic dissection S/P aortic valve replacement dyslipidemia S/P bilateral inguinal hernia repair Plan continue Merrem and Doxycycline day 4 to complete 4-7 days; reviewed CT C/A/P showing right sided infiltrate follow up results of the cardiac cath to be dome today will continue to monitor clinically
[2018-03-07 16:27] LABS: CALCIUM 8.8 mg/dL (8.4-10.5)
--- NOTE | 2018-03-07 18:42 | CP.PCM.PN ---
Subjective - Date & Time of Evaluation Date of Evaluation: 03/07/18 Time of Evaluation: 18:37 - Subjective Subjective: Patient s/p cardiac cath earlier today; denies sob; more confused per nursing staff; not eating much; Objective - Vital Signs/Intake and Output Vital Signs (last 24 hours): Temp Pulse Resp BP Pulse Ox 98.1 F 88 34 H 157/97 H 100 03/07/18 16:00 03/07/18 17:39 03/07/18 17:30 03/07/18 17:30 03/07/18 17:00 Intake and Output: 03/07/18 03/07/18 06:59 18:59 Intake Total 1365 360 Output Total 970 300 Balance 395 60 - Medications Medications: Current Medications Acetaminophen (Tylenol 325mg Tab) 650 mg PO Q6 PRN PRN Reason: TEMP>=99.5F Acetaminophen (Tylenol 650 Mg Supp) 650 mg RC Q6H PRN PRN Reason: TEMP>=99.5F Acetaminophen (Tylenol 650 Mg Supp) 650 mg RC Q6H PRN PRN Reason: Headache Acetaminophen (Tylenol 325mg Tab) 650 mg PO Q6H PRN PRN Reason: Headache Atorvastatin Calcium (Lipitor) 20 mg PO DIN [facility] Last Admin: 03/07/18 17:04 Dose: 20 mg Benzonatate (Tessalon Perles) 200 mg PO TID [facility] Last Admin: 03/07/18 17:04 Dose: 200 mg Calcitriol (Rocaltrol) 0.5 mcg PO DAILY [facility] Last Admin: 03/07/18 11:48 Dose: 0.5 mcg Calcium Acetate (Phoslo) 667 mg PO WM [facility] Last Admin: 03/07/18 17:05 Dose: 667 mg Calcium Carbonate (Oscal) 500 mg PO BID [facility] Last Admin: 03/07/18 17:04 Dose: 500 mg Cinacalcet (Sensipar) 30 mg PO DAILY [facility] Docusate Sodium (Colace) 100 mg PO TID [facility] Last Admin: 03/07/18 17:03 Dose: 100 mg Ezetimibe (Zetia) 10 mg PO DAILY [facility] Last Admin: 03/07/18 11:52 Dose: 10 mg Ferrous Gluconate (Fergon) 324 mg PO BID [facility] Last Admin: 03/07/18 17:05 Dose: 324 mg Hydrocortisone Sodium Succinate (Solu-Cortef) 25 mg IVP DAILY [facility] Last Admin: 03/07/18 11:45 Dose: 25 mg Doxycycline Hyclate 100 mg/ (Sodium Chloride) 100 mls @ 100 mls/hr IVPB Q12 [facility]; Protocol Last Admin: 03/07/18 11:50 Dose: 100 mls/hr Meropenem 500 mg/ Sodium (Chloride) 50 mls @ 100 mls/hr IVPB Q24H [facility]; Protocol Stop: 03/10/18 22:46 Last Admin: 03/06/18 23:14 Dose: 100 mls/hr Insulin Human Lispro (Humalog High) 0 units SC ACHS [facility]; Protocol Last Admin: 03/07/18 16:28 Dose: Not Given Lactic Acid (Lac-Hydrin 12% Lotion (225 G)) 0 gm EXT TID [facility] Last Admin: 03/07/18 17:05 Dose: 1 applic Levalbuterol HCl (Xopenex) 0.63 mg IH [id number] [facility] Last Admin: 03/07/18 13:23 Dose: 0.63 mg Metoprolol Tartrate (Lopressor) 50 mg PO BID [facility] Last Admin: 03/07/18 17:04 Dose: 50 mg Midodrine (Proamatine) 5 mg PO DAILY [facility] Mycophenolate Mofetil (Cellcept Cap) 500 mg PO Q12H [facility] Ondansetron HCl (Zofran Inj) 4 mg IVP Q4H PRN PRN Reason: Nausea/Vomiting Pantoprazole Sodium (Protonix Ec Tab) 40 mg PO 0600 [facility] Last Admin: 03/07/18 05:41 Dose: 40 mg Polyethylene Glycol (Miralax) 17 gm PO BID [facility] Last Admin: 03/07/18 17:03 Dose: 17 gm Tacrolimus (Prograf Cap) 1 mg PO QPM [facility] Last Admin: 03/07/18 17:05 Dose: 1 mg Tacrolimus (Prograf Cap) 2 mg PO QAM [facility] Last Admin: 03/07/18 11:53 Dose: 2 mg - Labs Labs: 03/07/18 05:30 03/07/18 16:08 PT 12.8 SECONDS (9.4-12.5) H 03/03/18 10:20 INR 1.11 03/03/18 10:20 APTT 27.9 Seconds (25.1-36.5) 03/03/18 10:20 - Constitutional Appears: Non-toxic, No Acute Distress, Cachectic - Eye Exam Eye Exam: absent: Scleral icterus - Respiratory Exam Respiratory Exam: Clear to Ausculation Bilateral. absent: Respiratory Distress Additional comments: decreased breath sounds at bases; - Cardiovascular Exam Cardiovascular Exam: RRR Additional comments: loud systolic murmur; - GI/Abdominal Exam GI & Abdominal Exam: Soft, Pulsatile Mass. absent: Distended, Tenderness - Extremities Exam Additional comments: mild b/l leg edema; - Neurological Exam Neurological Exam: Alert, Awake Additional comments: somewhat confused; - Psychiatric Exam Psychiatric exam: absent: Agitated - Skin Skin Exam: Warm. absent: Cyanosis - Additional Findings Additional findings: L forearm AVF w/ somewhat sharp bruit; Assessment and Plan (1) Acute kidney injury Assessment & Plan: MYRNA on CKD IV of transplanted kidney; initiated on HD for ATN in the setting of sepsis; borderline oliguria; received IV dye load today from left heart cath; stable electrolyte status; right heart cath findings indicative of volume overload with elevated right and left sided pressures though stable respiratory status; no urgent indication for HD, next session tomorrow (will be communicated to [facility] if patient leaves tonight); -continue to avoid nephrotoxic agents; Status: Acute (2) Severe sepsis Assessment & Plan: Hemodynamically stable; on doxy and meropenem, continue to dose the latter for HD; Status: Acute (3) Anemia of renal disease Assessment & Plan: s/p prbc transfusion yesterday, aranesp also given; monitor; Status: Acute (4) Immunosuppression Assessment & Plan: On immunosuppressants for renal allograft; on tacrolimus 2 mg in am, 1 mg in pm, continue; restarting MMF 500 mg q12h as well as prednisone 5 mg daily; Status: Acute (5) Chronic kidney disease (CKD), stage IV (severe) Assessment & Plan: Will need to monitor if patient recovers renal function enough to come off HD; Status: Chronic (6) AAA (abdominal aortic aneurysm) Status: Chronic (7) Chronic kidney disease-mineral and bone disorder Assessment & Plan: Was on sensipar for tertiary hyperparathryoidism but had hypocalcemia on presentation, improving; -decrease calcitriol to 0.25 mcg daily; d/c calcium carbonate; continue to hold sensipar; Status: Acute (8) Renal transplant, status post Status: Chronic (9) Aortic stenosis Assessment & Plan: Severe stenosis; left heart cath done today to assess for CAD prior to possible TAVR; need to avoid further volume overload; will aim for 2L UF on HD tomorrow; Status: Acute
[2018-03-07] MEDS: Meropenem 500 MG in Sodium Chloride 0.9% 50 ML IVPB SCH (23:00)
--- NOTE | 2018-03-07 23:52 | CP.PCM.PN ---
Subjective - Date & Time of Evaluation Date of Evaluation: 03/06/18 Time of Evaluation: 13:00 - Subjective Subjective: Appears more alert. Objective - Vital Signs/Intake and Output Vital Signs (last 24 hours): Temp Pulse Resp BP Pulse Ox 98.9 F 92 H 20 157/97 H 100 03/07/18 22:00 03/07/18 22:00 03/07/18 22:00 03/07/18 17:30 03/07/18 17:00 Intake and Output: 03/07/18 03/08/18 18:59 06:59 Intake Total 360 Output Total 300 Balance 60 - Medications Medications: Current Medications Acetaminophen (Tylenol 325mg Tab) 650 mg PO Q6 PRN PRN Reason: TEMP>=99.5F Acetaminophen (Tylenol 650 Mg Supp) 650 mg RC Q6H PRN PRN Reason: TEMP>=99.5F Acetaminophen (Tylenol 650 Mg Supp) 650 mg RC Q6H PRN PRN Reason: Headache Acetaminophen (Tylenol 325mg Tab) 650 mg PO Q6H PRN PRN Reason: Headache Atorvastatin Calcium (Lipitor) 20 mg PO DIN [facility] Last Admin: 03/07/18 17:04 Dose: 20 mg Benzonatate (Tessalon Perles) 200 mg PO TID [facility] Last Admin: 03/07/18 17:04 Dose: 200 mg Calcitriol (Rocaltrol) 0.25 mcg PO DAILY [facility] Calcium Acetate (Phoslo) 667 mg PO WM [facility] Last Admin: 03/07/18 17:05 Dose: 667 mg Cinacalcet (Sensipar) 30 mg PO DAILY [facility] Docusate Sodium (Colace) 100 mg PO TID [facility] Last Admin: 03/07/18 17:03 Dose: 100 mg Ezetimibe (Zetia) 10 mg PO DAILY [facility] Last Admin: 03/07/18 11:52 Dose: 10 mg Ferrous Gluconate (Fergon) 324 mg PO BID [facility] Last Admin: 03/07/18 17:05 Dose: 324 mg Hydrocortisone Sodium Succinate (Solu-Cortef) 25 mg IVP DAILY [facility] Last Admin: 03/07/18 11:45 Dose: 25 mg Doxycycline Hyclate 100 mg/ (Sodium Chloride) 100 mls @ 100 mls/hr IVPB Q12 [facility]; Protocol Last Admin: 09/28/18 21:24 Dose: 100 mls/hr Meropenem 500 mg/ Sodium (Chloride) 50 mls @ 100 mls/hr IVPB Q24H [facility]; Protocol Stop: 03/10/18 22:46 Last Admin: 03/06/18 23:14 Dose: 100 mls/hr Insulin Human Lispro (Humalog High) 0 units SC ACHS [facility]; Protocol Last Admin: 03/07/18 22:45 Dose: Not Given Lactic Acid (Lac-Hydrin 12% Lotion (225 G)) 0 gm EXT TID [facility] Last Admin: 03/07/18 17:05 Dose: 1 applic Levalbuterol HCl (Xopenex) 0.63 mg IH [id number] [facility] Last Admin: 03/07/18 20:00 Dose: 0.63 mg Metoprolol Tartrate (Lopressor) 50 mg PO BID [facility] Last Admin: 03/07/18 17:04 Dose: 50 mg Midodrine (Proamatine) 5 mg PO DAILY [facility] Mycophenolate Mofetil (Cellcept Cap) 500 mg PO Q12H [facility] Last Admin: 03/07/18 21:23 Dose: 500 mg Ondansetron HCl (Zofran Inj) 4 mg IVP Q4H PRN PRN Reason: Nausea/Vomiting Pantoprazole Sodium (Protonix Ec Tab) 40 mg PO 0600 [facility] Last Admin: 03/07/18 05:41 Dose: 40 mg Polyethylene Glycol (Miralax) 17 gm PO BID [facility] Last Admin: 03/07/18 17:03 Dose: 17 gm Prednisone (Prednisone Tab) 5 mg PO DAILY [facility] Last Admin: 03/07/18 21:39 Dose: 5 mg Tacrolimus (Prograf Cap) 1 mg PO QPM [facility] Last Admin: 03/07/18 17:05 Dose: 1 mg Tacrolimus (Prograf Cap) 2 mg PO QAM [facility] Last Admin: 03/07/18 11:53 Dose: 2 mg - Labs Labs: 03/07/18 05:30 03/07/18 16:08 PT 12.8 SECONDS (9.4-12.5) H 03/03/18 10:20 INR 1.11 03/03/18 10:20 APTT 27.9 Seconds (25.1-36.5) 03/03/18 10:20 - Head Exam Head Exam: ATRAUMATIC - Eye Exam Eye Exam: Normal appearance - ENT Exam ENT Exam: Mucous Membranes Dry - Respiratory Exam Respiratory Exam: NORMAL BREATHING PATTERN - Cardiovascular Exam Cardiovascular Exam: +S2 - GI/Abdominal Exam GI & Abdominal Exam: Normal Bowel Sounds Assessment and Plan (1) Anemia Assessment & Plan: anemia of CKD - MARK per renal hx of iron deficiency anemia; iron stores replenished anemia of chronic disease transfusion support PRN Status: Acute
--- NOTE | 2018-03-07 23:53 | CP.PCM.PN ---
Subjective - Date & Time of Evaluation Date of Evaluation: 03/07/18 Time of Evaluation: 13:00 - Subjective Subjective: Feeling better, for cardiac cath. Objective - Vital Signs/Intake and Output Vital Signs (last 24 hours): Temp Pulse Resp BP Pulse Ox 98.9 F 92 H 20 157/97 H 100 03/07/18 22:00 03/07/18 22:00 03/07/18 22:00 03/07/18 17:30 03/07/18 17:00 Intake and Output: 03/07/18 03/08/18 18:59 06:59 Intake Total 360 Output Total 300 Balance 60 - Medications Medications: Current Medications Acetaminophen (Tylenol 325mg Tab) 650 mg PO Q6 PRN PRN Reason: TEMP>=99.5F Acetaminophen (Tylenol 650 Mg Supp) 650 mg RC Q6H PRN PRN Reason: TEMP>=99.5F Acetaminophen (Tylenol 650 Mg Supp) 650 mg RC Q6H PRN PRN Reason: Headache Acetaminophen (Tylenol 325mg Tab) 650 mg PO Q6H PRN PRN Reason: Headache Atorvastatin Calcium (Lipitor) 20 mg PO DIN [facility] Last Admin: 03/07/18 17:04 Dose: 20 mg Benzonatate (Tessalon Perles) 200 mg PO TID [facility] Last Admin: 03/07/18 17:04 Dose: 200 mg Calcitriol (Rocaltrol) 0.25 mcg PO DAILY [facility] Calcium Acetate (Phoslo) 667 mg PO WM [facility] Last Admin: 03/07/18 17:05 Dose: 667 mg Cinacalcet (Sensipar) 30 mg PO DAILY [facility] Docusate Sodium (Colace) 100 mg PO TID [facility] Last Admin: 03/07/18 17:03 Dose: 100 mg Ezetimibe (Zetia) 10 mg PO DAILY [facility] Last Admin: 03/07/18 11:52 Dose: 10 mg Ferrous Gluconate (Fergon) 324 mg PO BID [facility] Last Admin: 03/07/18 17:05 Dose: 324 mg Hydrocortisone Sodium Succinate (Solu-Cortef) 25 mg IVP DAILY [facility] Last Admin: 03/07/18 11:45 Dose: 25 mg Doxycycline Hyclate 100 mg/ (Sodium Chloride) 100 mls @ 100 mls/hr IVPB Q12 [facility]; Protocol Last Admin: 03/07/18 21:24 Dose: 100 mls/hr Meropenem 500 mg/ Sodium (Chloride) 50 mls @ 100 mls/hr IVPB Q24H [facility]; Protocol Stop: 03/10/18 22:46 Last Admin: 03/06/18 23:14 Dose: 100 mls/hr Insulin Human Lispro (Humalog High) 0 units SC ACHS [facility]; Protocol Last Admin: 03/07/18 22:45 Dose: Not Given Lactic Acid (Lac-Hydrin 12% Lotion (225 G)) 0 gm EXT TID [facility] Last Admin: 03/07/18 17:05 Dose: 1 applic Levalbuterol HCl (Xopenex) 0.63 mg IH [id number] [facility] Last Admin: 03/07/18 20:00 Dose: 0.63 mg Metoprolol Tartrate (Lopressor) 50 mg PO BID [facility] Last Admin: 03/07/18 17:04 Dose: 50 mg Midodrine (Proamatine) 5 mg PO DAILY [facility] Mycophenolate Mofetil (Cellcept Cap) 500 mg PO Q12H [facility] Last Admin: 03/07/18 21:23 Dose: 500 mg Ondansetron HCl (Zofran Inj) 4 mg IVP Q4H PRN PRN Reason: Nausea/Vomiting Pantoprazole Sodium (Protonix Ec Tab) 40 mg PO 0600 [facility] Last Admin: 03/07/18 05:41 Dose: 40 mg Polyethylene Glycol (Miralax) 17 gm PO BID [facility] Last Admin: 03/07/18 17:03 Dose: 17 gm Prednisone (Prednisone Tab) 5 mg PO DAILY [facility] Last Admin: 03/07/18 21:39 Dose: 5 mg Tacrolimus (Prograf Cap) 1 mg PO QPM [facility] Last Admin: 03/07/18 17:05 Dose: 1 mg Tacrolimus (Prograf Cap) 2 mg PO QAM [facility] Last Admin: 03/07/18 11:53 Dose: 2 mg - Labs Labs: 03/07/18 05:30 03/07/18 16:08 PT 12.8 SECONDS (9.4-12.5) H 03/03/18 10:20 INR 1.11 03/03/18 10:20 APTT 27.9 Seconds (25.1-36.5) 03/03/18 10:20 - Head Exam Head Exam: ATRAUMATIC - Eye Exam Eye Exam: Normal appearance - ENT Exam ENT Exam: Mucous Membranes Dry - Respiratory Exam Respiratory Exam: NORMAL BREATHING PATTERN - Cardiovascular Exam Cardiovascular Exam: +S1, +S2 - GI/Abdominal Exam GI & Abdominal Exam: Normal Bowel Sounds Assessment and Plan (1) Anemia Assessment & Plan: anemia of CKD - MARK per renal hx of iron deficiency anemia; iron stores replenished anemia of chronic disease transfusion support PRN Status: Acute
[2018-03-08] MEDS: Levalbuterol 0.63 MG/3 ML Inhal Soln UD IH SCH ×4 (02:04→20:13)
[2018-03-08] MEDS: Pantoprazole 40 mg EC Tab PO SCH (06:38)
[2018-03-08 08:16] LABS: EOS % 0.6 % (1.5-5.0); GRAN # 4.45 (1.4-6.5); GRAN % 82.2 % (50.0-68.0); HEMOGLOBIN 9.7 g/dL (14.0-18.0); LYMPH # 0.6 (1.2-3.4); LYMPH % 10.4 % (22.0-35.0); MEAN CELL VOLUME 81.2 fl (80.0-105.0); MEAN CORPUSCULAR HEMOGLOBIN 24.6 pg (25.0-35.0); MEAN CORPUSCULAR HGB CONC 30.3 g/dl (31.0-37.0); MONO # 0.4 (0.1-0.6); MONO % 6.8 % (1.0-6.0); PLATELET COUNT 162 10^3/uL (120.0-450.0); RBC 3.94 10^6/uL (3.5-6.1); RED CELL DISTRIBUTION WIDTH 18.9 % (11.5-14.5); WHITE BLOOD COUNT 5.4 10^3/ul (4.5-11.0)
[2018-03-08 08:47] LABS: ALB/GLOB RATIO 1.4 (1.1-1.8); ALBUMIN 2.9 g/dL (3.0-4.8); BILIRUBIN,DIRECT 0.4 mg/dL (0.0-0.4); CALCIUM 9.3 mg/dL (8.4-10.5)
[2018-03-08] MEDS: Insulin Lispro (HUMAlog) HIGH Coverage SC SCH ×4 (08:52→22:19)
[2018-03-08] MEDS: Ammonium Lactate 12% Lotion (225 g) EXT SCH ×3 (09:59→17:01)
--- NOTE | 2018-03-08 10:05 | PN ---
DATE: 03/08/2018 SUBJECTIVE: The patient is seen in CCU bed 2. The patient is lying in the bed. The patient is awake, responsive, comfortable. The patient does not appear to be in any distress. Overnight nurse's notes were reviewed. No adverse events documented. OBJECTIVE: VITAL SIGNS: T-max 98.9. Telemetry shows sinus rhythm, sinus tach in low 100s beats per minute. Blood pressure is 149/91, 151/108, 152/90, 160/93. Respirations 26, 29, 30. O2 sat is 100% to 98%. HEENT: Head examination: Normocephalic, atraumatic. HEENT examination shows pinkish pale conjunctivae. Anicteric sclerae. No oropharyngeal lesion. No neck rigidity. CHEST: Examination showed median sternotomy surgical scar. Positive kyphosis. Decreased breath sound at the base, left more than the right. Occasional rhonchi, upper lung jenkins anteriorly. CARDIOVASCULAR: S1, S2. Regular rhythm. Positive systolic murmur, left sternal border, left second intercostal space, right second intercostal space. ABDOMEN: Soft, slightly protuberant. Positive midline pulsation noted. GENITALIA: Male. EXTREMITIES: Shows positive left upper extremity AV fistula. Lower extremity shows chronic skin changes of the lower extremity with poor free hygiene of the foot. MUSCULOSKELETAL: Examination shows a body mass index of 18. DIAGNOSTICS: 03/08/2018, WBC 5.4, hemoglobin/hematocrit 9.7 and 32, platelet 162. Granulocytes 82. Sodium 139, potassium 4, chloride 99, CO2 30, anion gap 14, BUN 36, creatinine 2.7. GFR 29, glucose 218, calcium 9.3, phosphorus 2.9, magnesium 2, total protein 5, albumin 2.9. The patient received two units of PRBC during this hospitalization. IMPRESSION AND PLAN: 1. Severe symptomatic hypotension with severe symptomatic anemia and symptoms of fatigue, tiredness, shortness of breath and dyspnea on exertion. 2. Possible systemic inflammatory response syndrome. 3. Tachycardia. 4. Hypertension. 5. Tachypnea. 6. Episodic hypoxemia. 7. Microcytic anemia, status post packed red blood cells transfusion. 8. Bandemia. 9. Granulocytosis. 10. Increased anion gap metabolic acidosis and lactic acidosis. 11. History of renal transplant. 12. Uncontrolled insulin-requiring diabetes mellitus with hemoglobin A1c of 10.4. 13. Non-hemolyzed hyperkalemia. 14. Hyponatremia. 15. History of transfusion dependent anemia. 16. Elevated fructosamine level of 492. 17. Questionable diastolic congestive heart failure with elevated brain natriuretic peptide. 18. Hyperprolactinemia. 19. Secondary hyperparathyroidism with elevated parathyroid hormone of 469. 20. Mild protein malnutrition and hypoalbuminemia. 21. 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 22. Status post cardiac catheterization. 23. Elevated pulmonary artery pressure of 45/20. 24. Pulmonary hypertension. 25. Large abdominal aortic aneurysm. 26. Acute renal failure, hemodialysis requiring, with failure of the transplanted kidney. 27. Acute kidney injury with underlying chronic kidney disease stage IV of the transplanted kidney. 28. Acute tubular necrosis. 29. Deconditioning. 30. Gait dysfunction. 31. Constipation. 32. Hyperlipidemia. 33. Secondary hyperparathyroidism. 1. Systemic inflammatory response syndrome with tachycardia, hypotension, tachypnea and hypoxemia. 2. Severe bioprosthetic aortic valve stenosis with poorly visualized bioprosthetic aortic valve. 3. Left ventricular ejection fraction of 63% with moderate concentric left ventricular hypertrophy and grade I abnormal relaxation pattern. 4. Moderately thickened mitral valve. 5. Mild tricuspid and pulmonic regurgitation. 6. Moderate bilateral pleural effusion. 7. Small pericardial effusion. 8. History of renal transplant with possible renal transplant failure, requiring dialysis. 9. History of end-stage renal disease, hemodialysis dependent, status post renal transplant. 10. Possible left lower lobe pneumonia and elevated right hemidiaphragm. 11. Status post aortic valve replacement. 12. Status post right upper extremity midline placement. 13. Microcytic anemia. 14. Status post packed red blood cell transfusion x2. 15. Granulocytosis. 16. Bandemia. 17. Increased anion gap metabolic acidosis. 18. Hypokalemia. 19. Status post non-hemolyzed hyperkalemia. 20. Uncontrolled diabetes mellitus with hemoglobin A1c of 10.4 and fructosamine of 492. 21. History of transfusion-dependent anemia. 22. Hyperprolactinemia. 23. Secondary hyperparathyroidism with elevated parathyroid hormone of greater than 469. 24. Hypocalcemia. 25. Hyperphosphatemia. 26. Proteinuria. 27. Status post hyponatremia. 28. Questionable and possible iron deficiency. 29. renal failure with intermittent hemodialysis requiring renal failure via the left upper extremity arteriovenous fistula. 30. Sinus tachycardia. 31. Left axis deviation. 32. Hypertensive cardiovascular disease. 33. Hyperparathyroidism. 34. Anemia of chronic kidney disease. 35. Immunosuppressed status. 36. Chronic kidney disease stage IV. 37. Abdominal aortic aneurysm. 38. Critical aortic stenosis of a bioprosthetic aortic valve. 39. Failure of the transplanted kidneys. 40. History of polycystic kidney disease. 41. History of hypertension. 42. History of pulmonary hypertension. 43. History of bilateral lower extremity venous stasis. 1. Systemic inflammatory response syndrome. 2. Low-grade fever. 3. Sinus tachycardia. 4. Hypertension. 5. Tachypnea. 6. Tachycardia. 7. Hypertension. 8. Leukopenia. 9. Microcytic anemia with decreasing hemoglobin and hematocrit. 10. Granulocytosis. 11. Increased anion gap metabolic acidosis and lactic acidosis. 12. Status post non-hemolyzed hyperkalemia, now hypokalemia. 13. Insulin-requiring diabetes mellitus with hemoglobin A1c of 10.4. 14. Questionable iron deficiency. 15. Intermittent hemodialysis-requiring renal failure. 16. Increased anion gap metabolic acidosis. 17. Possible diastolic congestive heart failure with elevated BNP. 18. Hyperprocalcitoninemia. 19. Protein malnutrition. 20. Hypoalbuminemia. 21. Bilateral lower extremity venous stasis. 22. Secondary hyperparathyroidism with elevated PTH level of greater than 469. 23. Status post 1 unit PRBC transfusion. 24. Status post right upper extremity midline placement. 25. Bilateral pleural effusion, right more than the left. 26. Questionable left lower lobe pneumonia with elevated right hemidiaphragm. 27. Status post aortic valve replacement. 28. Pulmonary vascular congestion. 29. Hypoproliferative erythroid response. 30. Anemia of chronic disease. 31. Mycotic elongated toenails, status post debridement. 32. Poor hygienic status. 33. Acute kidney injury with underlying chronic kidney disease, status post renal transplant and history of intermittent history of end-stage renal disease, hemodialysis dependent in the past. 1. Systemic inflammatory response syndrome secondary to uremia and acute renal failure. 2. Hypotension. 3. Tachycardia. 4. Tachypnea. 5. Leukopenia. 6. Anemia. 7. Granulocytosis. 8. Increased anion gap metabolic acidosis and lactic acidosis. 9. Severe metabolic acidosis. 10. Questionable uncontrolled type 1 diabetes mellitus with hemoglobin A1c of 10.4. 11. Secondary hyperparathyroidism with elevated PTH level. 12. Hyperprocalcitoninemia. 13. Non-hemolyzed hyperkalemia. 14. Hyponatremia. 15. Hyperglycemia. 16. Hyperphosphatemia. 17. Proteinuria. 18. Bacteriuria. 19. Questionable left lower lobe pneumonia. 20. Bilateral pleural effusion. 21. Cardiomegaly. 22. Aortic valve replacement. 23. Left axis deviation. 24. History of polycystic kidney disease. 25. Abdominal aortic aneurysm. 26. Mycotic elongated toenails and xerostomia. 27. Status post bilateral feet toenail debridement. 28. Pulmonary hypertension. 29. Possible questionable sepsis versus systemic inflammatory response syndrome. 30. Status post renal transplant, on immunosuppression. 31. Insulin-requiring diabetes mellitus. 32. Deconditioning. 33. Hypocalcemia. 1. Hypotensive shock versus questionable septic shock with hyperprocalcitoninemia. 2. History of polycystic kidney disease, history of renal transplant. 3. Lactic acidosis. 4. Increased anion gap metabolic acidosis. 5. Tachycardia. 6. Tachypnea. 7. Leukopenia, anemia. 8. Granulocytosis. 9. Lactic acidosis. 10. Increased anion gap metabolic acidosis. 11. Severe metabolic acidosis. 12. Hyponatremia. 13. Status post hyperkalemia. 14. Hemodialysis requiring renal failure. 15. Hypocalcemia. 16. Hyperphosphatemia. 17. Hypomagnesemia. 18. Protein malnutrition. 19. Hypoalbuminemia. 20. Secondary hyperparathyroidism with elevated PTH of 469. 21. Hyperprocalcitoninemia. 22. Right upper lobe pneumonia. 23. Bibasilar atelectasis and bilateral pleural effusion. 24. Status post aortic valve replacement. 25. Status post aortic valve replacement with proximal aortic valve graft. 26. Descending aortic aneurysm. 27. Bilateral pleural effusion, left more than the right. 28. Dilated esophagus. 29. Multiple hepatic cyst and masses. 30. Gallbladder distention. 31. Polycystic kidney disease. 32. An 8.3-cm infrarenal abdominal aortic aneurysm. 33. Chronic infrarenal abdominal aortic dissection at and below the level of the renal arteries. 34. Diverticulosis of the colon. 35. Hydronephrosis of the transplanted kidney. 36. Polycystic kidney disease. 37. Left axis deviation. 38. Coronary ischemic changes. 39. 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 40. Acute renal failure with acute kidney injury with underlying chronic kidney disease and possible failing transplanted renal allograft. 41. Questionable and possible septic versus hypovolemic and hypotensive shock. 42. High anion gap metabolic acidosis. 1. Severe symptomatic hypotension. 2. Severe symptomatic anemia with symptoms of fatigue, tiredness, shortness of breath and dyspnea on exertion. 3. Worsening renal failure with worsening chronic kidney disease. 4. Hyponatremia. 5. Hyperkalemia. 6. Anemia of chronic kidney disease with iron-deficiency anemia. 7. Granulocytosis. 8. Lymphocytopenia. 9. Hyponatremia. 10. Non-hemolyzed hyperkalemia. 11. Increased anion gap metabolic acidosis. 12. History of end-stage renal disease, hemodialysis dependent in the past with status post renal transplant. 13. Insulin-requiring diabetes mellitus with hyperglycemia. 14. Hypocalcemia. PLAN: At this time, the patient has been scheduled to be transferred and discharged to [facility] for transcatheter aortic valve replacement through the apical axis with simultaneous referral to the vascular surgeon, Dr. Dewitt, for evaluation of an abdominal aortic aneurysm. The patient's current consultation are Nephrology, Cardiology, Gastroenterology, , Infectious Disease, Interventional Radiology, Nephrology, Podiatry. CURRENT MEDICATIONS: CellCept 500 mg twice a day, Colace 100 mg three times a day, Vibramycin 100 mg IV every 12 hours, Fergon 324 twice a day, insulin high-dose sliding scale coverage, Lac-Hydrin lotion to both feet and legs, Lipitor 20 mg daily, Lopressor 50 mg twice a day, meropenem 500 IV every 24 hours, MiraLax 17 g twice a day, PhosLo 667 mg with meals, prednisone started by Dr. Wheeler 5 mg daily, Prograf 1 mg in the evening, Prograf 2 mg in the morning, Protonix 40 mg daily, Rocaltrol 0.5 mcg p.o. daily, Sensipar 30 mg daily, Tessalon Perles 200 three times a day, Tylenol 650 mg p.o. suppository every 6 hours p.r.n., Xopenex nebulizer 0.63 mg every 6 hours, Zetia 10 mg daily, Zofran 4 IV every 4 hours p.r.n. Chest PT, incentive spirometry, oxygen nasal cannula, out of bed, KRYSTAL stockings, SCDs all ordered. At present, the patient is awaiting for transfer to [facility], which the patient is in agreement to. Dictated and electronically signed, not read. Mart Knox MD [facility]
[2018-03-08] MEDS: POLYETHYLENE GLYCOL 3350 17 GM/Dose PACKET PO SCH ×2 (10:07→16:59)
--- NOTE | 2018-03-08 11:31 | PN ---
DATE: 03/08/2018 NURSING MANAGER NOTE LOCATION: At [facility]. SUBJECTIVE: The patient is resting comfortably in bed. At this time, he is getting dialysis. Hemodynamically stable. No complaints of shortness of breath, cough, wheezing, chest congestion. No chest pain. No abdominal pain. PHYSICAL EXAMINATION: VITAL SIGNS: Physical exam note that his temperature is 98.9, pulse is 102, respirations are 27 and BP is 144/89. SKIN: Warm and dry. HEENT: Head atraumatic, normocephalic. Eyes reactive to light. Ears, nose and throat seemed to be within normal limits. NECK: Supple. No JVD. No thyroid enlargement. No lymph nodes. HEART: Has regular rate and rhythm. Normal S1 and S2 with tachycardic. LUNGS: Reveal decreased breath sounds at the bases. ABDOMEN: Soft. Decreased bowel sounds. GENITALIA AND RECTAL: Deferred. MUSCULOSKELETAL: No joint deformities. EXTREMITIES: Reveal bilateral 1+ swelling in the feet. NEUROLOGICAL: He seemed to be grossly intact. LABORATORY DATA: As far as his laboratories, his white count is 5.4, hemoglobin is 9.7, hematocrit is 32 with platelets of 162,000. His sodium is 139, potassium 4, chloride 99, CO2 of 30 with a BUN of 36, creatinine of 2.7 and a glucose of 218. IMPRESSION: As far as my impression, this patient has renal failure requiring hemodialysis. The patient also has aortic stenosis with history of aortic valve repair. He is scheduled for transfer to [facility] for transcatheter aortic valve replacement. The patient has a history of abdominal aortic aneurysm, which is chronic and at this time is noted to have end-stage renal disease, on hemodialysis and possible sepsis. The patient has anemia, history of hypertension and hyperlipidemia. PLAN: As far as our plan, he continues to wait for a bed over at [facility] so that he can be transferred for the TAVR. The patient is getting CellCept, Colace, doxycycline as well as Lipitor, Lopressor, meropenem, MiraLax, prednisone, Prograf, Protonix, Rocaltrol, Solu-Cortef, Tessalon Perles, Tylenol, Xopenex and Zofran. We will continue to treat aggressively along with the other consultants and the primary care doctor. Alfonso Garcia MD [facility] # [id number]
--- NOTE | 2018-03-08 12:00 | CP.PCM.PN ---
Subjective - Date & Time of Evaluation Date of Evaluation: 03/08/18 Time of Evaluation: 11:00 - Subjective Subjective: Patient currently undergoing dialysis, no fevers, not in distress. Objective - Vital Signs/Intake and Output Vital Signs (last 24 hours): Temp Pulse Resp BP Pulse Ox 99.2 F 96 H 26 H 148/91 H 77 L 03/08/18 00:00 03/08/18 07:00 03/08/18 07:00 03/08/18 07:00 03/08/18 06:00 Intake and Output: 03/08/18 03/08/18 06:59 18:59 Intake Total 250 Output Total 541 Balance -291 - Medications Medications: Current Medications Acetaminophen (Tylenol 325mg Tab) 650 mg PO Q6 PRN PRN Reason: TEMP>=99.5F Acetaminophen (Tylenol 650 Mg Supp) 650 mg RC Q6H PRN PRN Reason: TEMP>=99.5F Acetaminophen (Tylenol 650 Mg Supp) 650 mg RC Q6H PRN PRN Reason: Headache Acetaminophen (Tylenol 325mg Tab) 650 mg PO Q6H PRN PRN Reason: Headache Atorvastatin Calcium (Lipitor) 20 mg PO DIN [facility] Last Admin: 03/07/18 17:04 Dose: 20 mg Benzonatate (Tessalon Perles) 200 mg PO TID [facility] Last Admin: 03/07/18 17:04 Dose: 200 mg Calcitriol (Rocaltrol) 0.25 mcg PO DAILY [facility] Calcium Acetate (Phoslo) 667 mg PO WM [facility] Last Admin: 03/07/18 17:05 Dose: 667 mg Cinacalcet (Sensipar) 30 mg PO DAILY [facility] Docusate Sodium (Colace) 100 mg PO TID [facility] Last Admin: 03/07/18 17:03 Dose: 100 mg Ezetimibe (Zetia) 10 mg PO DAILY [facility] Last Admin: 03/07/18 11:52 Dose: 10 mg Ferrous Gluconate (Fergon) 324 mg PO BID [facility] Last Admin: 03/07/18 17:05 Dose: 324 mg Hydrocortisone Sodium Succinate (Solu-Cortef) 25 mg IVP DAILY [facility] Last Admin: 03/07/18 11:45 Dose: 25 mg Doxycycline Hyclate 100 mg/ (Sodium Chloride) 100 mls @ 100 mls/hr IVPB Q12 [facility]; Protocol Last Admin: 03/07/18 21:24 Dose: 100 mls/hr Meropenem 500 mg/ Sodium (Chloride) 50 mls @ 100 mls/hr IVPB Q24H [facility]; Protocol Stop: 03/10/18 22:46 Last Admin: 03/07/18 23:00 Dose: 100 mls/hr Insulin Human Lispro (Humalog High) 0 units SC ACHS [facility]; Protocol Last Admin: 03/07/18 22:45 Dose: Not Given Lactic Acid (Lac-Hydrin 12% Lotion (225 G)) 0 gm EXT TID [facility] Last Admin: 03/07/18 17:05 Dose: 1 applic Levalbuterol HCl (Xopenex) 0.63 mg IH [id number] [facility] Last Admin: 03/08/18 07:21 Dose: 0.63 mg Metoprolol Tartrate (Lopressor) 50 mg PO BID [facility] Last Admin: 03/07/18 17:04 Dose: 50 mg Midodrine (Proamatine) 5 mg PO DAILY [facility] Mycophenolate Mofetil (Cellcept Cap) 500 mg PO Q12H [facility] Last Admin: 03/07/18 21:23 Dose: 500 mg Ondansetron HCl (Zofran Inj) 4 mg IVP Q4H PRN PRN Reason: Nausea/Vomiting Pantoprazole Sodium (Protonix Ec Tab) 40 mg PO 0600 [facility] Last Admin: 03/08/18 06:38 Dose: 40 mg Polyethylene Glycol (Miralax) 17 gm PO BID [facility] Last Admin: 03/07/18 17:03 Dose: 17 gm Prednisone (Prednisone Tab) 5 mg PO DAILY [facility] Last Admin: 03/07/18 21:39 Dose: 5 mg Tacrolimus (Prograf Cap) 1 mg PO QPM [facility] Last Admin: 03/07/18 17:05 Dose: 1 mg Tacrolimus (Prograf Cap) 2 mg PO QAM [facility] Last Admin: 03/07/18 11:53 Dose: 2 mg - Labs Labs: 03/07/18 05:30 03/07/18 16:08 PT 12.8 SECONDS (9.4-12.5) H 03/03/18 10:20 INR 1.11 03/03/18 10:20 APTT 27.9 Seconds (25.1-36.5) 03/03/18 10:20 - Constitutional Appears: Chronically Ill - Head Exam Head Exam: NORMAL INSPECTION - Respiratory Exam Respiratory Exam: Decreased Breath Sounds - Cardiovascular Exam Cardiovascular Exam: +S1, +S2 - GI/Abdominal Exam GI & Abdominal Exam: Soft. absent: Tenderness Assessment and Plan - Assessment and Plan (Free Text) Plan: Assessment systemic inflammatory response syndrome, consider due to worsening renal failure with uremia, R/O sepsis due to right sided HCAP history of sepsis due to gram negative bacilli bacteremia on top of systemic viral illness with Influenza polycystic kidney disease S/P renal transplant in 2006 HTN abdominal aortic aneurysm with history of aortic dissection S/P aortic valve replacement dyslipidemia S/P bilateral inguinal hernia repair Plan continue Merrem and Doxycycline day 5 to complete 4-7 days; reviewed CT C/A/P showing right sided infiltrate cardiac cath had unremarkable coronary arteries as per report will continue to monitor clinically
[2018-03-08 13:47] LABS: GLYCOMARK(R) 1.6 mcg/mL (7.3-36.6)
--- NOTE | 2018-03-08 15:46 | PN ---
DATE: 03/08/[address] Carlos Shane. SUBJECTIVE: The patient is currently undergoing hemodialysis and he denies chest discomfort. PHYSICAL EXAMINATION: VITAL SIGNS: Blood pressure 105/58, heart rate 105, temperature 99.2. HEENT: Pale conjunctivae. CHEST: Bibasilar rhonchi. HEART: S1 and S2 regular. ABDOMEN: Soft. EXTREMITIES: No edema. DATA: EKG revealed sinus rhythm with enlargement, low voltage in the limb leads, possible inferior wall MS. Cardiac catheterization performed yesterday revealed no coronary artery disease and no aortic insufficiency. ASSESSMENT: 1. Critical prosthetic aortic valve stenosis. 2. End-stage renal disease, on hemodialysis. RECOMMENDATIONS: Continue current medical management including IV doxycycline, Lipitor, Lopressor, IV meropenem and oral prednisone. Plan is to transfer the patient to [facility] today for TAVR. Remington Gerard MD
[2018-03-08] MEDS: Meropenem 500 MG in Sodium Chloride 0.9% 50 ML IVPB SCH (22:00)
--- NOTE | 2018-03-08 23:00 | CP.PCM.PN ---
Subjective - Date & Time of Evaluation Date of Evaluation: 03/08/18 Time of Evaluation: 13:00 - Subjective Subjective: Patient eating more today; not short of breath; still a little confused; Objective - Vital Signs/Intake and Output Vital Signs (last 24 hours): Temp Pulse Resp BP Pulse Ox 99.1 F 91 H 29 H 144/85 89 L 03/08/18 20:00 03/08/18 22:00 03/08/18 22:00 03/08/18 22:00 03/08/18 22:00 Intake and Output: 03/08/18 03/09/18 18:59 06:59 Intake Total 240 Output Total 150 Balance 90 - Medications Medications: Current Medications Acetaminophen (Tylenol 325mg Tab) 650 mg PO Q6 PRN PRN Reason: TEMP>=99.5F Acetaminophen (Tylenol 650 Mg Supp) 650 mg RC Q6H PRN PRN Reason: TEMP>=99.5F Acetaminophen (Tylenol 650 Mg Supp) 650 mg RC Q6H PRN PRN Reason: Headache Acetaminophen (Tylenol 325mg Tab) 650 mg PO Q6H PRN PRN Reason: Headache Atorvastatin Calcium (Lipitor) 20 mg PO DIN [facility] Last Admin: 03/08/18 17:00 Dose: 20 mg Benzonatate (Tessalon Perles) 200 mg PO TID [facility] Last Admin: 03/08/18 16:59 Dose: 200 mg Calcitriol (Rocaltrol) 0.25 mcg PO DAILY [facility] Last Admin: 03/08/18 10:08 Dose: 0.25 mcg Calcium Acetate (Phoslo) 667 mg PO WM [facility] Last Admin: 03/08/18 17:00 Dose: 667 mg Cinacalcet (Sensipar) 30 mg PO DAILY [facility] Docusate Sodium (Colace) 100 mg PO TID [facility] Last Admin: 03/08/18 17:00 Dose: 100 mg Ezetimibe (Zetia) 10 mg PO DAILY [facility] Last Admin: 03/08/18 10:05 Dose: 10 mg Ferrous Gluconate (Fergon) 324 mg PO BID [facility] Last Admin: 03/08/18 16:59 Dose: 324 mg Hydrocortisone Sodium Succinate (Solu-Cortef) 25 mg IVP DAILY [facility] Last Admin: 03/08/18 10:12 Dose: 25 mg Doxycycline Hyclate 100 mg/ (Sodium Chloride) 100 mls @ 100 mls/hr IVPB Q12 [facility]; Protocol Last Admin: 03/08/18 10:12 Dose: 100 mls/hr Meropenem 500 mg/ Sodium (Chloride) 50 mls @ 100 mls/hr IVPB Q24H [facility]; Protocol Stop: 03/10/18 22:46 Last Admin: 03/08/18 22:00 Dose: 100 mls/hr Insulin Human Lispro (Humalog High) 0 units SC ACHS [facility]; Protocol Last Admin: 03/08/18 22:19 Dose: Not Given Lactic Acid (Lac-Hydrin 12% Lotion (225 G)) 0 gm EXT TID [facility] Last Admin: 03/08/18 17:01 Dose: 1 applic Levalbuterol HCl (Xopenex) 0.63 mg IH [id number] [facility] Last Admin: 03/08/18 20:13 Dose: 0.63 mg Metoprolol Tartrate (Lopressor) 50 mg PO BID [facility] Last Admin: 03/08/18 16:59 Dose: 50 mg Mycophenolate Mofetil (Cellcept Cap) 500 mg PO Q12H [facility] Last Admin: 03/08/18 22:08 Dose: 500 mg Ondansetron HCl (Zofran Inj) 4 mg IVP Q4H PRN PRN Reason: Nausea/Vomiting Pantoprazole Sodium (Protonix Ec Tab) 40 mg PO 0600 [facility] Last Admin: 03/08/18 06:38 Dose: 40 mg Polyethylene Glycol (Miralax) 17 gm PO BID [facility] Last Admin: 03/08/18 16:59 Dose: 17 gm Prednisone (Prednisone Tab) 5 mg PO DAILY [facility] Last Admin: 03/08/18 10:07 Dose: 5 mg Tacrolimus (Prograf Cap) 1 mg PO QPM [facility] Last Admin: 03/08/18 17:03 Dose: 1 mg Tacrolimus (Prograf Cap) 2 mg PO QAM [facility] Last Admin: 03/08/18 10:07 Dose: 2 mg - Labs Labs: 03/08/18 08:00 03/08/18 08:00 PT 12.8 SECONDS (9.4-12.5) H 03/03/18 10:20 INR 1.11 03/03/18 10:20 APTT 27.9 Seconds (25.1-36.5) 03/03/18 10:20 - Constitutional Appears: Non-toxic, No Acute Distress, Cachectic - Eye Exam Eye Exam: Normal appearance - Respiratory Exam Respiratory Exam: Clear to Ausculation Bilateral. absent: Respiratory Distress - Cardiovascular Exam Cardiovascular Exam: absent: Gallop, Rubs Additional comments: systolic murmur; - GI/Abdominal Exam GI & Abdominal Exam: Soft, Pulsatile Mass. absent: Distended, Tenderness - Extremities Exam Additional comments: mild leg edema; - Neurological Exam Neurological Exam: Alert, Awake - Psychiatric Exam Psychiatric exam: absent: Agitated - Skin Skin Exam: Warm. absent: Cyanosis Assessment and Plan (1) Acute kidney injury Assessment & Plan: MYRNA on CKD IV; oliguric renal failure; ATN in the setting of severe sepsis; dialyzed today for clearance and UF; stable volume and electrolyte status; tolerated 2L UF; next HD for Saturday, will monitor labs/urine output for signs of renal recovery; -avoid nephrotoxic agents; Status: Acute (2) Severe sepsis Assessment & Plan: On meropenem (dosed for HD) and doxy; continue per ID; Status: Acute (3) Anemia of renal disease Assessment & Plan: Hgb stable s/p prbc transfusion, monitor; should dose EPO weekly and adjust to keep hgb 10-11g; Status: Acute (4) Immunosuppression Assessment & Plan: On tacrolimus 2 mg in am, 1 mg in pm, MMF 500 mg bid and prednisone 5 mg daily, continue same; tacrolimus level was high but unclear if this was a trough level; will repeat trough level; Status: Acute (5) Chronic kidney disease (CKD), stage IV (severe) Assessment & Plan: Failing renal allograft; should give a few weeks before deeming him to need chronic HD (can still setup outpatient HD as MYRNA once discharged); Status: Chronic (6) AAA (abdominal aortic aneurysm) Status: Chronic (7) Chronic kidney disease-mineral and bone disorder Assessment & Plan: Ca and phos controlled; will hold phoslo for now; continue calcitriol 0.25 mcg daily; holding sensipar until repeat PTH available; Status: Acute (8) Renal transplant, status post Status: Chronic (9) Aortic stenosis Assessment & Plan: Severe; awaiting transfer to [facility] for TAVR; need to keep patient euvolemic with UF on HD; Status: Acute
[2018-03-09] MEDS: Levalbuterol 0.63 MG/3 ML Inhal Soln UD IH SCH ×4 (03:44→19:50)
[2018-03-09] MEDS: Pantoprazole 40 mg EC Tab PO SCH (06:51)
[2018-03-09 08:09] LABS: EOS % 0.8 % (1.5-5.0); GRAN # 3.09 (1.4-6.5); GRAN % 80.7 % (50.0-68.0); HEMOGLOBIN 9.4 g/dL (14.0-18.0); LYMPH # 0.4 (1.2-3.4); LYMPH % 9.4 % (22.0-35.0); MEAN CELL VOLUME 80.1 fl (80.0-105.0); MEAN CORPUSCULAR HEMOGLOBIN 24.4 pg (25.0-35.0); MEAN CORPUSCULAR HGB CONC 30.4 g/dl (31.0-37.0); MONO # 0.4 (0.1-0.6); MONO % 9.1 % (1.0-6.0); PLATELET COUNT 195 10^3/uL (120.0-450.0); RBC 3.86 10^6/uL (3.5-6.1); RED CELL DISTRIBUTION WIDTH 18.7 % (11.5-14.5); WHITE BLOOD COUNT 3.8 10^3/ul (4.5-11.0)
[2018-03-09 08:17] LABS: ALB/GLOB RATIO 1.3 (1.1-1.8); ALBUMIN 2.7 g/dL (3.0-4.8); BILIRUBIN,DIRECT 0.3 mg/dL (0.0-0.4); CALCIUM 8.7 mg/dL (8.4-10.5)
[2018-03-09] MEDS: Insulin Lispro (HUMAlog) HIGH Coverage SC SCH ×4 (08:59→22:56)
[2018-03-09] MEDS: Ammonium Lactate 12% Lotion (225 g) EXT SCH ×3 (09:00→17:12)
[2018-03-09] MEDS: POLYETHYLENE GLYCOL 3350 17 GM/Dose PACKET PO SCH ×2 (09:12→17:11)
--- NOTE | 2018-03-09 10:33 | CP.PCM.PN ---
Subjective - Date & Time of Evaluation Date of Evaluation: 03/09/18 Time of Evaluation: 08:55 - Subjective Subjective: Comfortable, no fevers, not in distress. Objective - Vital Signs/Intake and Output Vital Signs (last 24 hours): Temp Pulse Resp BP Pulse Ox 99.4 F 92 H 23 134/86 97 03/09/18 00:00 03/09/18 02:00 03/09/18 01:00 03/09/18 02:00 03/09/18 02:00 Intake and Output: 03/08/18 03/09/18 18:59 06:59 Intake Total 240 Output Total 150 Balance 90 - Medications Medications: Current Medications Acetaminophen (Tylenol 325mg Tab) 650 mg PO Q6 PRN PRN Reason: TEMP>=99.5F Acetaminophen (Tylenol 650 Mg Supp) 650 mg RC Q6H PRN PRN Reason: TEMP>=99.5F Acetaminophen (Tylenol 650 Mg Supp) 650 mg RC Q6H PRN PRN Reason: Headache Acetaminophen (Tylenol 325mg Tab) 650 mg PO Q6H PRN PRN Reason: Headache Atorvastatin Calcium (Lipitor) 20 mg PO DIN [facility] Last Admin: 03/08/18 17:00 Dose: 20 mg Benzonatate (Tessalon Perles) 200 mg PO TID [facility] Last Admin: 03/08/18 16:59 Dose: 200 mg Calcitriol (Rocaltrol) 0.25 mcg PO DAILY [facility] Last Admin: 03/08/18 10:08 Dose: 0.25 mcg Calcium Acetate (Phoslo) 667 mg PO WM [facility] Last Admin: 03/08/18 17:00 Dose: 667 mg Cinacalcet (Sensipar) 30 mg PO DAILY [facility] Docusate Sodium (Colace) 100 mg PO TID [facility] Last Admin: 03/08/18 17:00 Dose: 100 mg Ezetimibe (Zetia) 10 mg PO DAILY [facility] Last Admin: 03/08/18 10:05 Dose: 10 mg Ferrous Gluconate (Fergon) 324 mg PO BID [facility] Last Admin: 03/08/18 16:59 Dose: 324 mg Hydrocortisone Sodium Succinate (Solu-Cortef) 25 mg IVP DAILY [facility] Last Admin: 03/08/18 10:12 Dose: 25 mg Doxycycline Hyclate 100 mg/ (Sodium Chloride) 100 mls @ 100 mls/hr IVPB Q12 [facility]; Protocol Last Admin: 03/08/18 23:20 Dose: 100 mls/hr Meropenem 500 mg/ Sodium (Chloride) 50 mls @ 100 mls/hr IVPB Q24H [facility]; Protocol Stop: 03/10/18 22:46 Last Admin: 03/08/18 22:00 Dose: 100 mls/hr Insulin Human Lispro (Humalog High) 0 units SC ACHS [facility]; Protocol Last Admin: 03/08/18 22:19 Dose: Not Given Lactic Acid (Lac-Hydrin 12% Lotion (225 G)) 0 gm EXT TID [facility] Last Admin: 03/08/18 17:01 Dose: 1 applic Levalbuterol HCl (Xopenex) 0.63 mg IH [id number] [facility] Last Admin: 03/09/18 03:44 Dose: Not Given Metoprolol Tartrate (Lopressor) 50 mg PO BID [facility] Last Admin: 03/08/18 16:59 Dose: 50 mg Mycophenolate Mofetil (Cellcept Cap) 500 mg PO Q12H [facility] Last Admin: 03/08/18 22:08 Dose: 500 mg Ondansetron HCl (Zofran Inj) 4 mg IVP Q4H PRN PRN Reason: Nausea/Vomiting Pantoprazole Sodium (Protonix Ec Tab) 40 mg PO 0600 [facility] Last Admin: 03/09/18 06:51 Dose: 40 mg Polyethylene Glycol (Miralax) 17 gm PO BID [facility] Last Admin: 03/08/18 16:59 Dose: 17 gm Prednisone (Prednisone Tab) 5 mg PO DAILY [facility] Last Admin: 03/08/18 10:07 Dose: 5 mg Tacrolimus (Prograf Cap) 1 mg PO QPM [facility] Last Admin: 03/08/18 17:03 Dose: 1 mg Tacrolimus (Prograf Cap) 2 mg PO QAM [facility] Last Admin: 03/08/18 10:07 Dose: 2 mg - Labs Labs: 03/08/18 08:00 03/08/18 08:00 PT 12.8 SECONDS (9.4-12.5) H 03/03/18 10:20 INR 1.11 03/03/18 10:20 APTT 27.9 Seconds (25.1-36.5) 03/03/18 10:20 - Constitutional Appears: Chronically Ill - Head Exam Head Exam: NORMAL INSPECTION - Respiratory Exam Respiratory Exam: Decreased Breath Sounds - Cardiovascular Exam Cardiovascular Exam: +S1, +S2 - GI/Abdominal Exam GI & Abdominal Exam: Soft. absent: Tenderness Assessment and Plan - Assessment and Plan (Free Text) Plan: Assessment systemic inflammatory response syndrome, consider due to worsening renal failure with uremia, R/O sepsis due to right sided HCAP history of sepsis due to gram negative bacilli bacteremia on top of systemic viral illness with Influenza polycystic kidney disease S/P renal transplant in 2006 HTN abdominal aortic aneurysm with history of aortic dissection S/P aortic valve replacement dyslipidemia S/P bilateral inguinal hernia repair Plan continue Merrem and Doxycycline day 6 to complete 4-7 days; reviewed CT C/A/P showing right sided infiltrate cardiac cath had unremarkable coronary arteries as per report will continue to monitor clinically
--- NOTE | 2018-03-09 20:09 | PN ---
DATE: 03/09/2018 SUBJECTIVE: The patient denies any chest pain. He is mildly short of breath. PHYSICAL EXAMINATION: VITAL SIGNS: Blood pressure 152/93, heart rate 95, temperature 99.4, respirations 33. HEENT: Pale conjunctivae. CHEST: Bibasilar rhonchi. HEART: S1, S2 regular. ABDOMEN: Soft. EXTREMITIES: No edema. LABORATORY DATA: Today's hemoglobin and hematocrit 9.4 and 38.9, white count 3.8, platelet count is 195,000. Today's BUN and creatinine are 25 and 2.2 respectively. Glucose 197. Rest of SMA-7 is within normal limits. Phosphorus is below normal at 2.1. ASSESSMENT: 1. Critical bioprosthetic aortic valve stenosis. 2. End-stage renal disease, on hemodialysis. 3. Anemia. 4. Uncontrolled diabetes mellitus. RECOMMENDATIONS: Continue current Zetia 10 mg once a day, Solu-Cortef 25 mg intravenously daily, Rocaltrol 0.25 mg orally daily, Prograf 2 mg p.o. daily, prednisone 5 mg daily, Lopressor 50 mg twice a day, Lipitor 20 mg once a day, CellCept 500 mg p.o. twice a day. The plan is to transfer the patient to [facility] tomorrow. Remington Gerard MD
--- NOTE | 2018-03-09 21:25 | CP.PCM.PN ---
Subjective - Date & Time of Evaluation Date of Evaluation: 03/09/18 Time of Evaluation: 14:00 - Subjective Subjective: Patient not eating much; no sob; reports urinating little; Objective - Vital Signs/Intake and Output Vital Signs (last 24 hours): Temp Pulse Resp BP Pulse Ox 98.9 F 79 21 151/92 H 97 03/09/18 16:30 03/09/18 17:15 03/09/18 15:00 03/09/18 17:15 03/09/18 15:00 Intake and Output: 03/09/18 03/10/18 18:59 06:59 Intake Total 700 Output Total 230 Balance 470 - Medications Medications: Current Medications Acetaminophen (Tylenol 325mg Tab) 650 mg PO Q6 PRN PRN Reason: TEMP>=99.5F Acetaminophen (Tylenol 650 Mg Supp) 650 mg RC Q6H PRN PRN Reason: TEMP>=99.5F Acetaminophen (Tylenol 650 Mg Supp) 650 mg RC Q6H PRN PRN Reason: Headache Acetaminophen (Tylenol 325mg Tab) 650 mg PO Q6H PRN PRN Reason: Headache Atorvastatin Calcium (Lipitor) 20 mg PO DIN [facility] Last Admin: 03/09/18 17:16 Dose: 20 mg Benzonatate (Tessalon Perles) 200 mg PO TID [facility] Last Admin: 03/09/18 17:17 Dose: 200 mg Calcitriol (Rocaltrol) 0.25 mcg PO DAILY [facility] Last Admin: 03/09/18 09:26 Dose: 0.25 mcg Calcium Acetate (Phoslo) 667 mg PO WM [facility] Cinacalcet (Sensipar) 30 mg PO DAILY [facility] Docusate Sodium (Colace) 100 mg PO TID [facility] Last Admin: 03/09/18 18:12 Dose: 100 mg Ezetimibe (Zetia) 10 mg PO DAILY [facility] Last Admin: 03/09/18 09:27 Dose: 10 mg Ferrous Gluconate (Fergon) 324 mg PO BID [facility] Last Admin: 03/09/18 17:16 Dose: 324 mg Hydrocortisone Sodium Succinate (Solu-Cortef) 25 mg IVP DAILY [facility] Last Admin: 03/09/18 09:24 Dose: 25 mg Doxycycline Hyclate 100 mg/ (Sodium Chloride) 100 mls @ 100 mls/hr IVPB Q12 [facility]; Protocol Last Admin: 03/09/18 21:09 Dose: 100 mls/hr Meropenem 500 mg/ Sodium (Chloride) 50 mls @ 100 mls/hr IVPB Q24H [facility]; Protocol Stop: 03/10/18 22:46 Last Admin: 03/08/18 22:00 Dose: 100 mls/hr Insulin Human Lispro (Humalog High) 0 units SC ACHS [facility]; Protocol Last Admin: 03/09/18 17:08 Dose: Not Given Lactic Acid (Lac-Hydrin 12% Lotion (225 G)) 0 gm EXT TID [facility] Last Admin: 03/09/18 17:12 Dose: 1 applic Levalbuterol HCl (Xopenex) 0.63 mg IH [id number] [facility] Last Admin: 03/09/18 13:50 Dose: 0.63 mg Metoprolol Tartrate (Lopressor) 50 mg PO BID [facility] Last Admin: 03/09/18 17:15 Dose: 50 mg Mycophenolate Mofetil (Cellcept Cap) 500 mg PO Q12H [facility] Last Admin: 03/09/18 21:08 Dose: 500 mg Ondansetron HCl (Zofran Inj) 4 mg IVP Q4H PRN PRN Reason: Nausea/Vomiting Pantoprazole Sodium (Protonix Ec Tab) 40 mg PO 0600 [facility] Last Admin: 03/09/18 06:51 Dose: 40 mg Polyethylene Glycol (Miralax) 17 gm PO BID [facility] Last Admin: 03/09/18 17:11 Dose: Not Given Prednisone (Prednisone Tab) 5 mg PO DAILY [facility] Last Admin: 03/09/18 09:26 Dose: 5 mg Tacrolimus (Prograf Cap) 2 mg PO QAM [facility] Last Admin: 03/08/18 10:07 Dose: 2 mg Tacrolimus (Prograf Cap) 1 mg PO DAILY@2200 [facility] Last Admin: 03/09/18 21:09 Dose: 1 mg - Labs Labs: 03/09/18 07:00 03/09/18 07:00 PT 12.8 SECONDS (9.4-12.5) H 03/03/18 10:20 INR 1.11 03/03/18 10:20 APTT 27.9 Seconds (25.1-36.5) 03/03/18 10:20 - Constitutional Appears: Non-toxic, No Acute Distress, Cachectic - Eye Exam Eye Exam: Normal appearance - Respiratory Exam Respiratory Exam: Clear to Ausculation Bilateral. absent: Respiratory Distress - Cardiovascular Exam Cardiovascular Exam: absent: Gallop, Rubs Additional comments: systolic murmur - GI/Abdominal Exam GI & Abdominal Exam: Soft, Pulsatile Mass. absent: Distended, Tenderness - Exam Exam: absent: Bladder Distension - Extremities Exam Additional comments: mild lower leg edema; - Neurological Exam Neurological Exam: Alert, Awake - Psychiatric Exam Psychiatric exam: absent: Agitated - Skin Skin Exam: Warm. absent: Cyanosis Assessment and Plan (1) Acute kidney injury Assessment & Plan: MYRNA on CKD IV of transplanted kidney; oliguric renal failure after ATN insult from severe sepsis as well as IV contrast; stable electrolyte and volume status; no need for HD today, will dialyze tomorrow to keep euvolemic; -avoid nephrotoxic agents; -monitor closely for signs of renal recovery (labs, urine output); Status: Acute (2) Severe sepsis Assessment & Plan: On meropenem (dosed for HD) and doxy, continue per ID; Status: Acute (3) Anemia of renal disease Assessment & Plan: Hgb relatively stable s/p prbc transfusion, will re-dose aranesp weekly; Status: Acute (4) Immunosuppression Assessment & Plan: On tacrolimus 2 mg in am, 1 mg in pm, MMF 500 mg bid and prednisone 5 mg daily, continue same; tacrolimus trough level drawn today; Status: Acute (5) Chronic kidney disease (CKD), stage IV (severe) Status: Chronic (6) AAA (abdominal aortic aneurysm) Status: Chronic (7) Chronic kidney disease-mineral and bone disorder Assessment & Plan: Low phos and hypoalbuminemia indicative of decreased PO intake; continue nutritional supplements; holding phoslo; continue calcitriol, awaiting repeat PTH; Status: Acute (8) Renal transplant, status post Status: Chronic (9) Aortic stenosis Assessment & Plan: Severe stenosis with right heart cath consistent with volume overload; will aim to keep euvolemic with UF on HD; Status: Acute
[2018-03-09] MEDS: Meropenem 500 MG in Sodium Chloride 0.9% 50 ML IVPB SCH (22:19)
--- NOTE | 2018-03-10 00:51 | PN ---
DATE: 03/09/2018 SUBJECTIVE: The patient is seen lying in the bed in CCU bed 2. The patient is comfortable, alert, awake, responsive. Overnight nurse's notes were reviewed. The patient refused oxygen according to the nurses' notes. The patient's appetite was reported to be good. The patient was found to be alert, awake, oriented to person, place. The patient was noted to have swelling of the lower extremity. The patient was reported to have normal bowel movement. PHYSICAL EXAMINATION: VITAL SIGNS: T-max in the last 24 hours is 99.7. Telemetry shows heart rate in normal sinus rhythm in 80s and 90s beats per minute. Blood pressure in the last 24 hours is averaging 140 systolic, 150 systolic, 130 systolic, 150 systolic. Diastolic in 80s and 90s mmHg. Respirations averaging mid 20 per minute to low 30 respiratory rate per minute. O2 sat has been in mid to high 90s and 100%. Intake/output not documented. HEENT: Head examination normocephalic, atraumatic. HEENT examination shows pinkish pale conjunctivae. Anicteric sclerae. No oropharyngeal lesion. No neck rigidity. CHEST: Shows median sternotomy surgical scar. LUNGS: Shows decreased breath sound at the bases, left more than the right. Questionable upper lung field, anterior lung field rhonchi. CARDIOVASCULAR: S1, S2. Positive systolic murmur, left sternal border, right second intercostal space, left second intercostal space. ABDOMEN: Soft. Positive midline pulsation noted. GENITALIA: Male. RECTAL: Deferred. EXTREMITY: Shows positive swelling of the lower extremity and positive swelling of the feet, but missing KRYSTAL stockings. Positive SCDs. Positive left upper extremity AV fistula, positive thrill. MUSCULOSKELETAL: Shows a body mass index of 16. Gait examination is not tested. DIAGNOSTICS: On 03/09/2018, WBC 3.8, hemoglobin and hematocrit 9.4 and 31, platelets 195. Granulocytes 81% segs. Sodium 137, potassium 3.6, chloride 98, CO2 of 29, anion gap 13, BUN 25, creatinine 2.2, which has gone up from the lowest creatinine 1.6 on 03/06/2018 and the highest creatinine of 7.4. GFR is 37. Fingerstick blood sugar 136, 218, 197, 192. Calcium 8.7, phosphorus 2.1, magnesium 1.8, total protein 4.8, albumin 4.7. Stool occult blood positive. Urine, blood MRSA cultures negative. The patient received 2 units of PRBC. IMPRESSION AND PLAN: 1. Systemic inflammatory response syndrome with tachycardia, hypotension and worsening renal failure and uremia. 2. Hypertension. 3. Tachycardia. 4. Low-grade fever. 5. Status post hypotension. 6. Tachypnea. 7. Hypoxemia. 8. Leukopenia, anemia, granulocytosis, bandemia. 9. Status post packed red blood cell transfusion. 10. Increased anion gap metabolic acidosis and lactic acidosis. 11. Acute renal failure, hemodialysis requiring. 12. 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 13. Uncontrolled insulin-requiring diabetes mellitus with elevated hemoglobin A1c of 10.4 and fructosamine of 492. 14. Mild protein malnutrition and hypoalbuminemia. 15. Possible diastolic congestive heart failure with elevated BNP. 16. Hyperprocalcitoninemia. 17. Secondary hyperparathyroidism with elevated PTH of almost 460. 18. Proteinuria, bacteriuria. 19. Stool occult blood positive, etiology undetermined. 20. Indeterminate hepatitis B surface antibody. 21. Status post packed red blood cell transfusion x2. 22. Acute kidney injury with underlying chronic kidney disease stage 4 and oliguric renal failure secondary to acute tubular necrosis, status post hemodialysis. 23. Anemia of chronic kidney disease and renal disease. 24. Immunosuppressed status secondary to renal transplant. 25. Failing renal allograft transplant. 26. History of abdominal aortic aneurysm. 27. 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 28. Severe aortic stenosis. 29. 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 30. Deconditioning. 31. Gait dysfunction. 32. Bilateral lower extremity venous stasis. 33. Constipation. 34. Episodic confusion versus ICU psychosis. 35. Hyperlipidemia. 1. Severe symptomatic hypotension with severe symptomatic anemia and symptoms of fatigue, tiredness, shortness of breath and dyspnea on exertion. 2. Possible systemic inflammatory response syndrome. 3. Tachycardia. 4. Hypertension. 5. Tachypnea. 6. Episodic hypoxemia. 7. Microcytic anemia, status post packed red blood cells transfusion. 8. Bandemia. 9. Granulocytosis. 10. Increased anion gap metabolic acidosis and lactic acidosis. 11. History of renal transplant. 12. Uncontrolled insulin-requiring diabetes mellitus with hemoglobin A1c of 10.4. 13. Non-hemolyzed hyperkalemia. 14. Hyponatremia. 15. History of transfusion dependent anemia. 16. Elevated fructosamine level of 492. 17. Questionable diastolic congestive heart failure with elevated brain natriuretic peptide. 18. Hyperprolactinemia. 19. Secondary hyperparathyroidism with elevated parathyroid hormone of 469. 20. Mild protein malnutrition and hypoalbuminemia. 21. 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 22. Status post cardiac catheterization. 23. Elevated pulmonary artery pressure of 45/20. 24. Pulmonary hypertension. 25. Large abdominal aortic aneurysm. 26. Acute renal failure, hemodialysis requiring, with failure of the transplanted kidney. 27. Acute kidney injury with underlying chronic kidney disease stage IV of the transplanted kidney. 28. Acute tubular necrosis. 29. Deconditioning. 30. Gait dysfunction. 31. Constipation. 32. Hyperlipidemia. 33. Secondary hyperparathyroidism. 1. Systemic inflammatory response syndrome with tachycardia, hypotension, tachypnea and hypoxemia. 2. Severe bioprosthetic aortic valve stenosis with poorly visualized bioprosthetic aortic valve. 3. Left ventricular ejection fraction of 63% with moderate concentric left ventricular hypertrophy and grade I abnormal relaxation pattern. 4. Moderately thickened mitral valve. 5. Mild tricuspid and pulmonic regurgitation. 6. Moderate bilateral pleural effusion. 7. Small pericardial effusion. 8. History of renal transplant with possible renal transplant failure, requiring dialysis. 9. History of end-stage renal disease, hemodialysis dependent, status post renal transplant. 10. Possible left lower lobe pneumonia and elevated right hemidiaphragm. 11. Status post aortic valve replacement. 12. Status post right upper extremity midline placement. 13. Microcytic anemia. 14. Status post packed red blood cell transfusion x2. 15. Granulocytosis. 16. Bandemia. 17. Increased anion gap metabolic acidosis. 18. Hypokalemia. 19. Status post non-hemolyzed hyperkalemia. 20. Uncontrolled diabetes mellitus with hemoglobin A1c of 10.4 and fructosamine of 492. 21. History of transfusion-dependent anemia. 22. Hyperprolactinemia. 23. Secondary hyperparathyroidism with elevated parathyroid hormone of greater than 469. 24. Hypocalcemia. 25. Hyperphosphatemia. 26. Proteinuria. 27. Status post hyponatremia. 28. Questionable and possible iron deficiency. 29. renal failure with intermittent hemodialysis requiring renal failure via the left upper extremity arteriovenous fistula. 30. Sinus tachycardia. 31. Left axis deviation. 32. Hypertensive cardiovascular disease. 33. Hyperparathyroidism. 34. Anemia of chronic kidney disease. 35. Immunosuppressed status. 36. Chronic kidney disease stage IV. 37. Abdominal aortic aneurysm. 38. Critical aortic stenosis of a bioprosthetic aortic valve. 39. Failure of the transplanted kidneys. 40. History of polycystic kidney disease. 41. History of hypertension. 42. History of pulmonary hypertension. 43. History of bilateral lower extremity venous stasis. 1. Systemic inflammatory response syndrome. 2. Low-grade fever. 3. Sinus tachycardia. 4. Hypertension. 5. Tachypnea. 6. Tachycardia. 7. Hypertension. 8. Leukopenia. 9. Microcytic anemia with decreasing hemoglobin and hematocrit. 10. Granulocytosis. 11. Increased anion gap metabolic acidosis and lactic acidosis. 12. Status post non-hemolyzed hyperkalemia, now hypokalemia. 13. Insulin-requiring diabetes mellitus with hemoglobin A1c of 10.4. 14. Questionable iron deficiency. 15. Intermittent hemodialysis-requiring renal failure. 16. Increased anion gap metabolic acidosis. 17. Possible diastolic congestive heart failure with elevated BNP. 18. Hyperprocalcitoninemia. 19. Protein malnutrition. 20. Hypoalbuminemia. 21. Bilateral lower extremity venous stasis. 22. Secondary hyperparathyroidism with elevated PTH level of greater than 469. 23. Status post 1 unit PRBC transfusion. 24. Status post right upper extremity midline placement. 25. Bilateral pleural effusion, right more than the left. 26. Questionable left lower lobe pneumonia with elevated right hemidiaphragm. 27. Status post aortic valve replacement. 28. Pulmonary vascular congestion. 29. Hypoproliferative erythroid response. 30. Anemia of chronic disease. 31. Mycotic elongated toenails, status post debridement. 32. Poor hygienic status. 33. Acute kidney injury with underlying chronic kidney disease, status post renal transplant and history of intermittent history of end-stage renal disease, hemodialysis dependent in the past. 1. Systemic inflammatory response syndrome secondary to uremia and acute renal failure. 2. Hypotension. 3. Tachycardia. 4. Tachypnea. 5. Leukopenia. 6. Anemia. 7. Granulocytosis. 8. Increased anion gap metabolic acidosis and lactic acidosis. 9. Severe metabolic acidosis. 10. Questionable uncontrolled type 1 diabetes mellitus with hemoglobin A1c of 10.4. 11. Secondary hyperparathyroidism with elevated PTH level. 12. Hyperprocalcitoninemia. 13. Non-hemolyzed hyperkalemia. 14. Hyponatremia. 15. Hyperglycemia. 16. Hyperphosphatemia. 17. Proteinuria. 18. Bacteriuria. 19. Questionable left lower lobe pneumonia. 20. Bilateral pleural effusion. 21. Cardiomegaly. 22. Aortic valve replacement. 23. Left axis deviation. 24. History of polycystic kidney disease. 25. Abdominal aortic aneurysm. 26. Mycotic elongated toenails and xerostomia. 27. Status post bilateral feet toenail debridement. 28. Pulmonary hypertension. 29. Possible questionable sepsis versus systemic inflammatory response syndrome. 30. Status post renal transplant, on immunosuppression. 31. Insulin-requiring diabetes mellitus. 32. Deconditioning. 33. Hypocalcemia. 1. Hypotensive shock versus questionable septic shock with hyperprocalcitoninemia. 2. History of polycystic kidney disease, history of renal transplant. 3. Lactic acidosis. 4. Increased anion gap metabolic acidosis. 5. Tachycardia. 6. Tachypnea. 7. Leukopenia, anemia. 8. Granulocytosis. 9. Lactic acidosis. 10. Increased anion gap metabolic acidosis. 11. Severe metabolic acidosis. 12. Hyponatremia. 13. Status post hyperkalemia. 14. Hemodialysis requiring renal failure. 15. Hypocalcemia. 16. Hyperphosphatemia. 17. Hypomagnesemia. 18. Protein malnutrition. 19. Hypoalbuminemia. 20. Secondary hyperparathyroidism with elevated PTH of 469. 21. Hyperprocalcitoninemia. 22. Right upper lobe pneumonia. 23. Bibasilar atelectasis and bilateral pleural effusion. 24. Status post aortic valve replacement. 25. Status post aortic valve replacement with proximal aortic valve graft. 26. Descending aortic aneurysm. 27. Bilateral pleural effusion, left more than the right. 28. Dilated esophagus. 29. Multiple hepatic cyst and masses. 30. Gallbladder distention. 31. Polycystic kidney disease. 32. An 8.3-cm infrarenal abdominal aortic aneurysm. 33. Chronic infrarenal abdominal aortic dissection at and below the level of the renal arteries. 34. Diverticulosis of the colon. 35. Hydronephrosis of the transplanted kidney. 36. Polycystic kidney disease. 37. Left axis deviation. 38. Coronary ischemic changes. 39. 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 40. Acute renal failure with acute kidney injury with underlying chronic kidney disease and possible failing transplanted renal allograft. 41. Questionable and possible septic versus hypovolemic and hypotensive shock. 42. High anion gap metabolic acidosis. 1. Severe symptomatic hypotension. 2. Severe symptomatic anemia with symptoms of fatigue, tiredness, shortness of breath and dyspnea on exertion. 3. Worsening renal failure with worsening chronic kidney disease. 4. Hyponatremia. 5. Hyperkalemia. 6. Anemia of chronic kidney disease with iron-deficiency anemia. 7. Granulocytosis. 8. Lymphocytopenia. 9. Hyponatremia. 10. Non-hemolyzed hyperkalemia. 11. Increased anion gap metabolic acidosis. 12. History of end-stage renal disease, hemodialysis dependent in the past with status post renal transplant. 13. Insulin-requiring diabetes mellitus with hyperglycemia. 14. Hypocalcemia. Plan at this time, the patient has been ordered repeat labs for the morning. The patient has been ordered repeat procalcitonin level. The patient has been ordered repeat CBC. CURRENT CONSULTATION: Nephrology, Cardiology, gastroenterology, Hematology/Oncology, Infectious Disease, Interventional Radiology, Urology, Podiatry. CURRENT MEDICATIONS: CellCept or mycophenolate 500 mg every 12, Colace 100 mg three times a day, Vibramycin 100 mg IV every 12, Fergon 324 twice a day, Humalog high-dose sliding scale coverage, Lac-Hydrin lotion to both extremities three times a day, Lipitor 20 mg daily, Lopressor 50 mg twice a day, meropenem 500 IV every 24, MiraLax 17 g twice a day, PhosLo 667 mg with meals, prednisone 5 mg daily, tacrolimus or Prograf 2 mg one dose stat was given, then the patient is on Prograf or tacrolimus 2 mg a.m. and 1 mg p.m., Protonix 40 mg daily, Rocaltrol 0.25 mcg p.o. daily, Sensipar 30 mg daily. The patient is still on Solu-Cortef 25 mg IV daily by the ICU team. Tessalon Perles 200 three times a day, Tylenol 650 p.o. suppository every 6 hours p.r.n., Xopenex nebulizer 0.63 mg every 6 hours, Zetia 10 mg daily, Zofran 4 mg IV every 4 p.r.n. Chest PT, incentive spirometry ordered. JOHN Frenchs ordered. Plan at this time, the patient is still awaiting transfer to [facility] for TAVR. We are still waiting for the transfer. The patient's overall prognosis is guarded. Dictated and electronically signed, not read. Mart Knox MD MTDJeet
[2018-03-10] MEDS: Levalbuterol 0.63 MG/3 ML Inhal Soln UD IH SCH ×3 (02:25→13:04)
[2018-03-10] MEDS: Pantoprazole 40 mg EC Tab PO SCH (05:39)
[2018-03-10 07:16] LABS: EOS # 0.1 (0.0-0.7); EOS % 2.7 % (1.5-5.0); GRAN # 2.75 (1.4-6.5); GRAN % 75.4 % (50.0-68.0); HEMOGLOBIN 9.2 g/dL (14.0-18.0); LYMPH # 0.4 (1.2-3.4); LYMPH % 10.7 % (22.0-35.0); MEAN CELL VOLUME 80.5 fl (80.0-105.0); MEAN CORPUSCULAR HEMOGLOBIN 24.3 pg (25.0-35.0); MEAN CORPUSCULAR HGB CONC 30.2 g/dl (31.0-37.0); MONO # 0.4 (0.1-0.6); MONO % 11.2 % (1.0-6.0); RBC 3.79 10^6/uL (3.5-6.1); RED CELL DISTRIBUTION WIDTH 18.8 % (11.5-14.5); WHITE BLOOD COUNT 3.7 10^3/ul (4.5-11.0)
[2018-03-10 07:49] LABS: ALB/GLOB RATIO 1.2 (1.1-1.8); ALBUMIN 2.5 g/dL (3.0-4.8); BILIRUBIN,DIRECT 0.4 mg/dL (0.0-0.4); CALCIUM 8.6 mg/dL (8.4-10.5)
[2018-03-10 08:20] LABS: PLATELET COUNT 205 10^3/uL (120.0-450.0)
--- NOTE | 2018-03-10 08:56 | PN ---
DATE: 03/09/2018 CHILD CARE NURSE NOTE SUBJECTIVE: The patient is resting in bed, awake and alert. No obvious complaints. No increased shortness of breath, cough, wheezing, chest congestion. No chest pain. No abdominal pain. No diarrhea. The patient is still waiting to be transferred to [facility] for TAVR procedure. PHYSICAL EXAMINATION: VITAL SIGNS: Note that his temperature is 99.4, pulse is 103, respirations are 24 and BP is 124/91. SKIN: Warm and dry. HEENT: Head atraumatic, normocephalic. Eyes reactive to light. Ears, nose and throat seemed to be within normal limits. NECK: Supple. No JVD. No thyroid enlargement. No lymph nodes. HEART: Has regular rate and rhythm. Normal S1, S2. Mildly tachycardic. LUNGS: Reveal fairly good breath sounds bilaterally. ABDOMEN: Soft. Decreased bowel sounds. GENITALIA: Deferred. RECTAL: Deferred. MUSCULOSKELETAL: No joint deformities. EXTREMITIES: Reveal 1+ to 2+ lower extremity edema. NEUROLOGIC: He seemed to be grossly intact. DATA: As far as his laboratories are concerned, his white count is 3.8, hemoglobin is 9.4, hematocrit 30.9 with platelet count of 195,000. Sodium is 137, potassium 3.6, chloride 98, CO2 of 29 with a BUN of 25, creatinine of 2.2 and glucose of 218. IMPRESSION: As far as impression, this patient has renal failure, requiring hemodialysis. He also has aortic stenosis with a history of aortic valve repair. The patient is scheduled for transfer to [facility] for transcatheter aortic valve replacement procedure. The patient has a history of abdominal aortic aneurysm, which is chronic. He has end-stage renal disease, on dialysis. The patient has a history of anemia, hypertension and hyperlipidemia. PLAN: As far as our plan, we will continue to treat aggressively but the patient is awaiting transport to [facility] for TAVR procedure. He will continue with his CellCept, Colace, doxycycline, Lipitor, Lopressor, meropenem, MiraLax, prednisone, Prograf, Protonix, Rocaltrol and Solu-Cortef as well as Tessalon Perles, Tylenol, Xopenex and Zofran. Alfonso Garcia MD [facility] # [id number]
[2018-03-10] MEDS: Insulin Lispro (HUMAlog) HIGH Coverage SC SCH ×2 (09:21→11:47)
--- NOTE | 2018-03-10 09:28 | CP.CCUPN ---
<Yamilka Lowery - Last Filed: 03/10/18 12:08> CCU Subjective - Physician Review Subjective (Free Text): Yamilka Lowery, PGY-1, CCU Progress Note for Dr. Murray Patient seen and examined at bedside. No overnight events reported. Patient reports improved weakness. Patient denies headache, dizziness, fever, chest pain, shortness of breath, back pain, heart palpitations, wheezing, cough, nausea, vomiting, constipation, diarrhea, dysuria, hematuria, numbness, and tingling. Critical Care Time Spent (in minutes): 60 CCU Objective - Vital Signs / Intake & Output Vital Signs (Last 4 hours): Vital Signs Pulse Resp BP Pulse Ox 03/10/18 06:00 88 30 H 145/77 98 Intake and Output (Last 8hrs): Intake & Output 03/09/18 03/10/18 03/10/18 22:59 06:59 14:59 Intake Total 700 350 Output Total 230 Balance 470 350 Weight 106 lb 2 oz Intake: IV 100 150 Right Upper arm 100 150 Oral 600 200 Output: Urine 150 Urine, Voided 150 Stool 80 Other: # Bowel Movements 2 - Physical Exam Head: Positive for: Atraumatic, Normocephalic Pupils: Positive for: PERRL Extroacular Muscles: Positive for: EOMI Conjunctiva: Positive for: Normal Mouth: Positive for: Moist Mucous Membranes Neck: Positive for: Normal Range of Motion Respiratory/Chest: Positive for: Clear to Auscultation, Good Air Exchange, Decreased Breath Sounds (at the bases). Negative for: Accessory Muscle Use, Wheezes, Rales, Retracting, Rhonchi Cardiovascular: Positive for: Regular Rate and Rhythm, Murmurs (3/5 systolic ejection murmur in RUSB), Normal S1, S2 Abdomen: Positive for: Distention (firm). 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 Pt states is not used. He is currently not on dialysis. Right arm swelling). Negative for: Cyanosis, Edema Lower Extremity: Positive for: Normal Inspection, Other (+2 pitting edema). Negative for: Edema Neurological: Positive for: GCS=15, CN II-XII Intact, Speech Normal, Motor Func Grossly Intact, Other (MSK +4/5 throughout) Skin: Positive for: Warm, Dry, Normal Color. Negative for: Rashes Psychiatric: Positive for: Alert, Oriented x 3, Normal Insight, Normal Concentration - Medications Active Medications: Active Medications Generic Name Dose Route Start Last Admin Trade Name Freq PRN Reason Stop Dose Admin Acetaminophen 650 mg 03/03/18 19:21 Tylenol 325mg Tab PO Q6 PRN TEMP>=99.5F Acetaminophen 650 mg 03/03/18 19:21 Tylenol 650 Mg Supp RC Q6H PRN TEMP>=99.5F Acetaminophen 650 mg 03/03/18 19:28 Tylenol 650 Mg Supp RC Q6H PRN Headache Acetaminophen 650 mg 03/03/18 19:29 Tylenol 325mg Tab PO Q6H PRN Headache Atorvastatin Calcium 20 mg 03/03/18 17:00 03/09/18 17:16 Lipitor PO 20 mg DIN TAWANA Administration Benzonatate 200 mg 03/04/18 10:00 03/09/18 17:17 Tessalon Perles PO 200 mg TID TAWANA Administration Calcitriol 0.25 mcg 03/07/18 18:49 03/09/18 09:26 Rocaltrol PO 0.25 mcg DAILY TAWANA Administration Calcium Acetate 667 mg 03/09/18 17:00 Phoslo PO WM TA[place]NA Cinacalcet 30 mg 03/04/18 10:00 Sensipar PO DAILY TA[place]NA Ezetimibe 10 mg 03/04/18 10:00 03/09/18 09:27 Zetia PO 10 mg DAILY TA[place]NA Administration Ferrous Gluconate 324 mg 03/03/18 18:00 03/09/18 17:16 Fergon PO 324 mg BID TA[place]NA Administration Hydrocortisone Sodium Succinate 25 mg 03/07/18 10:15 03/09/18 09:24 Solu-Cortef IVP 25 mg DAILY TA[place]NA Administration Doxycycline Hyclate 100 mg/ 100 mls @ 100 mls/hr 03/03/18 22:00 03/09/18 21:09 Sodium Chloride IVPB 100 mls/hr Q12 TAWANA Administration Protocol Meropenem 500 mg/ Sodium 50 mls @ 100 mls/hr 03/03/18 22:45 03/09/18 22:19 Chloride IVPB 03/10/18 22:46 100 mls/hr Q24H TA[place]NA Administration Protocol Insulin Human Lispro 0 units 03/04/18 11:30 03/09/18 22:56 Humalog High SC Not Given ACHS TAWANA Protocol Lactic Acid 0 gm 03/06/18 11:00 03/09/18 17:12 Lac-Hydrin 12% Lotion (225 G) EXT 1 applic TID TAWANA Administration Levalbuterol HCl 0.63 mg 03/03/18 20:00 03/10/18 07:34 Xopenex IH 0.63 mg [id number] TA[place]NA Administration Metoprolol Tartrate 50 mg 03/07/18 09:00 03/09/18 17:15 Lopressor PO 50 mg BID TA[place]NA Administration Mycophenolate Mofetil 500 mg 03/07/18 22:00 03/09/18 21:08 Cellcept Cap PO 500 mg Q12H TA[place]NA Administration Ondansetron HCl 4 mg 03/03/18 19:21 Zofran Inj IVP Q4H PRN Nausea/Vomiting Pantoprazole Sodium 40 mg 03/04/18 06:00 03/10/18 05:39 Protonix Ec Tab PO 40 mg 0600 TAWANA Administration Polyethylene Glycol 17 gm 03/04/18 10:00 03/09/18 17:11 Miralax PO Not Given BID TA[place]NA Prednisone 5 mg 03/07/18 18:45 03/09/18 09:26 Prednisone Tab PO 5 mg DAILY TA[place]NA Administration Tacrolimus 2 mg 03/04/18 10:00 03/08/18 10:07 Prograf Cap PO 2 mg QAM TA[place]NA Administration Tacrolimus 1 mg 03/09/18 22:00 03/09/18 21:09 Prograf Cap PO 1 mg DAILY@2200 TA[place]NA Administration - Patient Studies Lab Studies: Lab Studies 03/10/18 03/10/18 03/09/18 Range/Units 06:50 06:50 20:17 WBC 3.7 L (4.5-11.0) 10^3/ul RBC 3.79 (3.5-6.1) 10^6/uL Hgb 9.2 L (14.0-18.0) g/dL Hct 30.5 L (42.0-52.0) % MCV 80.5 (80.0-105.0) fl MCH 24.3 L (25.0-35.0) pg MCHC 30.2 L (31.0-37.0) g/dl RDW 18.8 H (11.5-14.5) % Plt Count 205 (120.0-450.0) 10^3/uL Gran % 75.4 H (50.0-68.0) % Lymph % (Auto) 10.7 L (22.0-35.0) % [place] % (Auto) 11.2 H (1.0-6.0) % Eos % (Auto) 2.7 (1.5-5.0) % Baso % (Auto) 0.0 (0.0-3.0) % Gran # 2.75 (1.4-6.5) Lymph # (Auto) 0.4 L (1.2-3.4) [place] # (Auto) 0.4 (0.1-0.6) Eos # (Auto) 0.1 (0.0-0.7) Baso # (Auto) 0.00 (0.0-2.0) K/mm3 Sodium 138 (132-148) mmol/L Potassium 3.5 L (3.6-5.0) mmol/L Chloride 102 (98-107) mmol/L Carbon Dioxide 29 (21-33) mmol/L Anion Gap 10 (10-20) BUN 35 H (7-21) mg/dL Creatinine 2.8 H (0.8-1.5) mg/dl Est GFR ( Amer) 28 Est GFR (Non-Af Amer) 23 POC Glucose (mg/dL) 194 H (65-110) mg/dL Random Glucose 184 H (70-110) mg/dL Calcium 8.6 (8.4-10.5) mg/dL Phosphorus 2.4 L (2.5-4.5) mg/dL Magnesium 1.8 (1.7-2.2) mg/dL Total Bilirubin 0.4 (0.2-1.3) mg/dL Direct Bilirubin 0.4 (0.0-0.4) mg/dL AST 26 (17-59) U/L ALT 27 (7-56) U/L Alkaline Phosphatase 64 (38-126) U/L Total Protein 4.7 L (5.8-8.3) g/dL Albumin 2.5 L (3.0-4.8) g/dL Globulin 2.1 gm/dL Albumin/Globulin Ratio 1.2 (1.1-1.8) Stool Occult Blood (NEGATIVE) Crossmatch 03/09/18 03/09/18 03/09/18 Range/Units 16:23 11:47 08:30 WBC (4.5-11.0) 10^3/ul RBC (3.5-6.1) 10^6/uL Hgb (14.0-18.0) g/dL Hct (42.0-52.0) % MCV (80.0-105.0) fl MCH (25.0-35.0) pg MCHC (31.0-37.0) g/dl RDW (11.5-14.5) % Plt Count (120.0-450.0) 10^3/uL Gran % (50.0-68.0) % Lymph % (Auto) (22.0-35.0) % [place] % (Auto) (1.0-6.0) % Eos % (Auto) (1.5-5.0) % Baso % (Auto) (0.0-3.0) % Gran # (1.4-6.5) Lymph # (Auto) (1.2-3.4) [place] # (Auto) (0.1-0.6) Eos # (Auto) (0.0-0.7) Baso # (Auto) (0.0-2.0) K/mm3 Sodium (132-148) mmol/L Potassium (3.6-5.0) mmol/L Chloride (98-107) mmol/L Carbon Dioxide (21-33) mmol/L Anion Gap (10-20) BUN (7-21) mg/dL Creatinine (0.8-1.5) mg/dl Est GFR ( Amer) Est GFR (Non-Af Amer) POC Glucose (mg/dL) 60 L 136 H (65-110) mg/dL Random Glucose (70-110) mg/dL Calcium (8.4-10.5) mg/dL Phosphorus (2.5-4.5) mg/dL Magnesium (1.7-2.2) mg/dL Total Bilirubin (0.2-1.3) mg/dL Direct Bilirubin (0.0-0.4) mg/dL AST (17-59) U/L ALT (7-56) U/L Alkaline Phosphatase (38-126) U/L Total Protein (5.8-8.3) g/dL Albumin (3.0-4.8) g/dL Globulin gm/dL Albumin/Globulin Ratio (1.1-1.8) Stool Occult Blood Positive H (NEGATIVE) Crossmatch 03/06/18 Range/Units 16:47 WBC (4.5-11.0) 10^3/ul RBC (3.5-6.1) 10^6/uL Hgb (14.0-18.0) g/dL Hct (42.0-52.0) % MCV (80.0-105.0) fl MCH (25.0-35.0) pg MCHC (31.0-37.0) g/dl RDW (11.5-14.5) % Plt Count (120.0-450.0) 10^3/uL Gran % (50.0-68.0) % Lymph % (Auto) (22.0-35.0) % [place] % (Auto) (1.0-6.0) % Eos % (Auto) (1.5-5.0) % Baso % (Auto) (0.0-3.0) % Gran # (1.4-6.5) Lymph # (Auto) (1.2-3.4) [place] # (Auto) (0.1-0.6) Eos # (Auto) (0.0-0.7) Baso # (Auto) (0.0-2.0) K/mm3 Sodium (132-148) mmol/L Potassium (3.6-5.0) mmol/L Chloride (98-107) mmol/L Carbon Dioxide (21-33) mmol/L Anion Gap (10-20) BUN (7-21) mg/dL Creatinine (0.8-1.5) mg/dl Est GFR ( Amer) Est GFR (Non-Af Amer) POC Glucose (mg/dL) (65-110) mg/dL Random Glucose (70-110) mg/dL Calcium (8.4-10.5) mg/dL Phosphorus (2.5-4.5) mg/dL Magnesium (1.7-2.2) mg/dL Total Bilirubin (0.2-1.3) mg/dL Direct Bilirubin (0.0-0.4) mg/dL AST (17-59) U/L ALT (7-56) U/L Alkaline Phosphatase (38-126) U/L Total Protein (5.8-8.3) g/dL Albumin (3.0-4.8) g/dL Globulin gm/dL Albumin/Globulin Ratio (1.1-1.8) Stool Occult Blood (NEGATIVE) Crossmatch See Detail Laboratory Results - last 24 hr 03/06/18 03/09/18 03/09/18 16:47 08:30 11:47 WBC RBC Hgb Hct MCV MCH MCHC RDW Plt Count Gran % Lymph % (Auto) [place] % (Auto) Eos % (Auto) Baso % (Auto) Gran # Lymph # (Auto) [place] # (Auto) Eos # (Auto) Baso # (Auto) Sodium Potassium Chloride Carbon Dioxide Anion Gap BUN Creatinine Est GFR ( Amer) Est GFR (Non-Af Amer) POC Glucose (mg/dL) 136 H Random Glucose Calcium Phosphorus Magnesium Total Bilirubin Direct Bilirubin AST ALT Alkaline Phosphatase Total Protein Albumin Globulin Albumin/Globulin Ratio Stool Occult Blood Positive H Crossmatch See Detail 03/09/18 03/09/18 03/10/18 16:23 20:17 06:50 WBC RBC Hgb Hct MCV MCH MCHC RDW Plt Count Gran % Lymph % (Auto) [place] % (Auto) Eos % (Auto) Baso % (Auto) Gran # Lymph # (Auto) [place] # (Auto) Eos # (Auto) Baso # (Auto) Sodium 138 Potassium 3.5 L Chloride 102 Carbon Dioxide 29 Anion Gap 10 BUN 35 H Creatinine 2.8 H Est GFR ( Amer) 28 Est GFR (Non-Af Amer) 23 POC Glucose (mg/dL) 60 L 194 H Random Glucose 184 H Calcium 8.6 Phosphorus 2.4 L Magnesium 1.8 Total Bilirubin 0.4 Direct Bilirubin 0.4 AST 26 ALT 27 Alkaline Phosphatase 64 Total Protein 4.7 L Albumin 2.5 L Globulin 2.1 Albumin/Globulin Ratio 1.2 Stool Occult Blood Crossmatch 03/10/18 06:50 WBC 3.7 L RBC 3.79 Hgb 9.2 L Hct 30.5 L MCV 80.5 MCH 24.3 L MCHC 30.2 L RDW 18.8 H Plt Count 205 Gran % 75.4 H Lymph % (Auto) 10.7 L [place] % (Auto) 11.2 H Eos % (Auto) 2.7 Baso % (Auto) 0.0 Gran # 2.75 Lymph # (Auto) 0.4 L [place] # (Auto) 0.4 Eos # (Auto) 0.1 Baso # (Auto) 0.00 Sodium Potassium Chloride Carbon Dioxide Anion Gap BUN Creatinine Est GFR ( Amer) Est GFR (Non-Af Amer) POC Glucose (mg/dL) Random Glucose Calcium Phosphorus Magnesium Total Bilirubin Direct Bilirubin AST ALT Alkaline Phosphatase Total Protein Albumin Globulin Albumin/Globulin Ratio Stool Occult Blood Crossmatch Fingerstick Blood Sugar Results: 194 Review of Systems - Constitutional Constitutional: absent: Fever, Chills, Sweats - EENT Eyes: absent: Blurred Vision Ears: absent: Decreased Hearing Nose/Mouth/Throat: absent: Sore Throat - Cardiovascular Cardiovascular: absent: Chest Pain, Chest Pain at Rest, Chest Pain with Activity, Diaphoresis, Dyspnea - Respiratory Respiratory: absent: Cough, Dyspnea, Wheezing - Gastrointestinal Gastrointestinal: absent: Abdominal Pain, Constipation, Diarrhea, Nausea, Vomiting - Genitourinary Genitourinary: absent: Change in Urinary Stream, Dysuria, Flank Pain, Hematuria - Musculoskeletal Musculoskeletal: absent: Arthralgias, Joint Swelling - Neurological Neurological: absent: Dizziness, Headaches, Tingling, Tremor, Weakness Critical Care Progress Note - Ventilator Checklist Head of Bed 30 Degrees: Yes PUD Prophalyxis: Yes DVT Prophylaxis: Yes - Extremities/Vascular Does the Patient have a Central Venous Catheter?: No Does the Patient need a Central Venous Catheter?: No Does the Patient have a Aquino Catheter?: No Does the Patient need a Aquino Catheter?: No - Nutrition Nutrition: Nutrition Category Date Time Status Diabetic [Consistent Carbohydrate] [DIET] Diets 03/03/18 Dinner Ordered Assessment/Plan - Assessment and Plan (Free Text) Assessment: 67 year old male with past medical history of aortic valve replacement, anemia, renal transplant in 2006, hyperlipidemia, hypertension, insulin dependent diabetes, secondary hyperparathyroidism, polycystic kidney disease, chronic kidney disease, pulmonary hypertension, diastolic congestive heart failure with last EF of 62.9%, cachexia, and aortic dissection is a poor historian and presents with weakness and shortness of the breath for 3 weeks. Plan: Neuro: -AAOx3, no FND, moving extremities past midline. -Monitor neuro status. Patient mild disorientation at nighttime. -Reorient patient as necessary. Cardio: -RRR, hypotension resolved, tachycardia, systolic ejection murmur, tachypneic, firm and distended abdomen, +2 pitting edema in bilateral lower extremities -Patient's hypotension likely due to hypovolemia but cannot rule out cardiogenic or septic causes. -MAP: 106 -Due to patient's distended abdomen and bilateral lower [place] [address], echocardiogram was ordered. -Echocardiogram showed LVEF of 60-65%, right atrium mildly dilated, aortic valve calcification with adequate opening, mild to moderate tricuspid and mitral regurgitation, severe pulmonary hypertension, aortic root dilatation. -Patient has stable infrarenal AAA at 8 cm and history of aortic dissection. Dr. Murray and I had a discussion with Dr. Carlos Fulton regarding this case, who recommended that patient be evaluated outpatient by Dr. Dewitt, Vascular surgery, who was supposed to perform intervention for the infrarenal AAA but patient had electrolyte abnormalities and intervention was held off. Dr. Dewitt will be contacted to arrange for AAA follow up. -Continue doxycycline and merrem day 7 of 7. Antibiotics can be stopped after today's dose. -Metoprolol tartrate 50 mg BID started today for control of heart rate and blood pressure. -Dr. Shane, Cardiology, was consulted for this case. Patient had cardiac catherization on 03/07. No active coronary artery disease appreciated. Patient will be transferred to [facility] for TAVR once a bed is available. -Maintain MAP>65. -Monitor for S/S, HD compromise. Pulm: -Patient tachypnea improved. RR is 20 today. CTA B/L -Patient is stating well on room air -ABG from 03/04: pH: 7.29, pCO2: 19, pO2: 120, lactate: 1.3. -Tachypnea was likely due to compensation for metabolic acidosis from severe uremia. -Xopenex treatments given Q6 as needed -Improved bilateral pleural effusions on repeat chest x ray. -Bilateral upper and lower extremity duplex ultrasounds show no evidence of DVT. -Maintain O2 saturation>95%. GI: -Tolerating diabetic diet. -Protonix 40 mg daily -GI recommends no endoscopy during this visit due to risk from 8 cm AAA. Results from 2017 EGD procedure shows hiatal hernia, nonbleeding erythematous mucosa. No ulcers. Patient for possible CT enterography. -GI, Dr. Cordova was consulted for possible GI bleed. /Nephro: -MYRNA on CKD stage 4. -Patient has been oliguric with 150 mL of urine the past 2 days. Patient for dialysis today as per nephrology. -BUN/Cr: 35/2.8. Creatinine improved from 2.9 yesterday following dialysis. BUN improved from 48 yesterday following dialysis. -UA: negative leukocyte esterase and nitrates. 0-2 RBC, 0-2 WBC, small bacteria -K: 3.5. Continue to monitor. -Calcium stable with calcitriol, and calcium carbonate to 8.9 from 8.4 yesterday. -Phosphate is 2.4 today. Hypophosphatemia likely due to poor feeding. Calcium acetate held. -PTH elevated at 469 likely 2/2 to chronic kidney disease. -Continue doxycycline and merrem day 7 of 7. Antibiotics can be stopped after today's dose. -Patient currently on immunosuppresion with tacrolimus, hydrocortisone for renal transplant. Cellcept restarted. -Maintain euvolemia. Patient currently oliguric. -Strict I and Os. Check daily weights -Dr. Wheeler, nephrology consulted for further recommendations. Endocrinology: -Random glucose at 185. Glucose elevated likely due to hydrocortisone. Hydrocortisone stopped and patient restarted on home prednisone 5 mg daily. -HgbA1c: 10.4 -Continue patient on high dose sliding scale insulin. -Obtain and maintain euglycemia. Heme/Onc: -Anemic: 9.2 from 9.4 -FOBT negative -Continue ferrous gluconate 324 mg BID. -Anemia likely due to chronic kidney disease. -One dose of MARK given 03/05. MARK will be given weekly and redosed weekly. -Patient has had 2 U of PRBCs transfused during this admissoin. Previous consent from this visit on file. -Continue monitoring H/H -GI was consulted who wanted endoscopy results from 02/2017. Results showed hiatal hernia, nonbleeding erythematous mucosa. No ulcers. ID: -Afebrile, leukopenia -Serum lactic acid: 0.9 from 0.7. -BCx: no growth in 5 days -UCx: no growth -Procalcitonin: 64.33 from 150 -Continue with doxycycline and merrem day 7 of 7 as emperic therapy. Antibiotics can be stopped after today's dose. -Monitor for signs and symptoms of infection. -ID consulted for recommendations. Follow recommendations. DVT ppx: SCD GI ppx: protonix Disposition: Patient likely does not have infection due to negative cultures. Patient's antibiotics will be stopped after today. Patient for TAVR at [facility] once available bed at facility. Patient case discussed with Dr. Murray. - Date & Time Date: 03/10/18 Time: 09:29 <Serenity Murray - Last Filed: 03/10/18 17:20> CCU Objective - Vital Signs / Intake & Output Vital Signs (Last 4 hours): Vital Signs Pulse Resp BP Pulse Ox 03/10/18 16:00 81 32 H 120/72 92 L 03/10/18 15:00 84 38 H 139/80 98 03/10/18 14:00 85 33 H 120/68 98 Intake and Output (Last 8hrs): Intake & Output 03/10/18 03/10/18 03/10/18 06:59 14:59 22:59 Intake Total 350 300 Output Total 100 Balance 350 200 Weight 48.137 kg Intake: IV 150 100 Right Upper arm 150 100 Oral 200 200 Output: Urine 100 Urine, Voided 100 Other: # Bowel Movements 2 - Patient Studies Lab Studies: Lab Studies 03/10/18 03/10/18 03/10/18 Range/Units 11:10 07:30 06:50 WBC (4.5-11.0) 10^3/ul RBC (3.5-6.1) 10^6/uL Hgb (14.0-18.0) g/dL Hct (42.0-52.0) % MCV (80.0-105.0) fl MCH (25.0-35.0) pg MCHC (31.0-37.0) g/dl RDW (11.5-14.5) % Plt Count (120.0-450.0) 10^3/uL Gran % (50.0-68.0) % Lymph % (Auto) (22.0-35.0) % [place] % (Auto) (1.0-6.0) % Eos % (Auto) (1.5-5.0) % Baso % (Auto) (0.0-3.0) % Gran # (1.4-6.5) Lymph # (Auto) (1.2-3.4) [place] # (Auto) (0.1-0.6) Eos # (Auto) (0.0-0.7) Baso # (Auto) (0.0-2.0) K/mm3 Sodium (132-148) mmol/L Potassium (3.6-5.0) mmol/L Chloride (98-107) mmol/L Carbon Dioxide (21-33) mmol/L Anion Gap (10-20) BUN (7-21) mg/dL Creatinine (0.8-1.5) mg/dl Est GFR ( Amer) Est GFR (Non-Af Amer) POC Glucose (mg/dL) 250 H 203 H (65-110) mg/dL Random Glucose (70-110) mg/dL Calcium (8.4-10.5) mg/dL Phosphorus (2.5-4.5) mg/dL Magnesium (1.7-2.2) mg/dL Total Bilirubin (0.2-1.3) mg/dL Direct Bilirubin (0.0-0.4) mg/dL AST (17-59) U/L ALT (7-56) U/L Alkaline Phosphatase (38-126) U/L Total Protein (5.8-8.3) g/dL Albumin (3.0-4.8) g/dL Globulin gm/dL Albumin/Globulin Ratio (1.1-1.8) Procalcitonin 8.44 H (0.19-0.49) NG/ML Tacrolimus (LC/MS/MS) (5.0-20.0) mcg/L Crossmatch 03/10/18 03/10/18 03/09/18 Range/Units 06:50 06:50 20:17 WBC 3.7 L (4.5-11.0) 10^3/ul RBC 3.79 (3.5-6.1) 10^6/uL Hgb 9.2 L (14.0-18.0) g/dL Hct 30.5 L (42.0-52.0) % MCV 80.5 (80.0-105.0) fl MCH 24.3 L (25.0-35.0) pg MCHC 30.2 L (31.0-37.0) g/dl RDW 18.8 H (11.5-14.5) % Plt Count 205 (120.0-450.0) 10^3/uL Gran % 75.4 H (50.0-68.0) % Lymph % (Auto) 10.7 L (22.0-35.0) % [place] % (Auto) 11.2 H (1.0-6.0) % Eos % (Auto) 2.7 (1.5-5.0) % Baso % (Auto) 0.0 (0.0-3.0) % Gran # 2.75 (1.4-6.5) Lymph # (Auto) 0.4 L (1.2-3.4) [place] # (Auto) 0.4 (0.1-0.6) Eos # (Auto) 0.1 (0.0-0.7) Baso # (Auto) 0.00 (0.0-2.0) K/mm3 Sodium 138 (132-148) mmol/L Potassium 3.5 L (3.6-5.0) mmol/L Chloride 102 (98-107) mmol/L Carbon Dioxide 29 (21-33) mmol/L Anion Gap 10 (10-20) BUN 35 H (7-21) mg/dL Creatinine 2.8 H (0.8-1.5) mg/dl Est GFR ( Amer) 28 Est GFR (Non-Af Amer) 23 POC Glucose (mg/dL) 194 H (65-110) mg/dL Random Glucose 184 H (70-110) mg/dL Calcium 8.6 (8.4-10.5) mg/dL Phosphorus 2.4 L (2.5-4.5) mg/dL Magnesium 1.8 (1.7-2.2) mg/dL Total Bilirubin 0.4 (0.2-1.3) mg/dL Direct Bilirubin 0.4 (0.0-0.4) mg/dL AST 26 (17-59) U/L ALT 27 (7-56) U/L Alkaline Phosphatase 64 (38-126) U/L Total Protein 4.7 L (5.8-8.3) g/dL Albumin 2.5 L (3.0-4.8) g/dL Globulin 2.1 gm/dL Albumin/Globulin Ratio 1.2 (1.1-1.8) Procalcitonin (0.19-0.49) NG/ML Tacrolimus (LC/MS/MS) (5.0-20.0) mcg/L Crossmatch 03/09/18 03/09/18 03/09/18 Range/Units 16:23 12:30 11:47 WBC (4.5-11.0) 10^3/ul RBC (3.5-6.1) 10^6/uL Hgb (14.0-18.0) g/dL Hct (42.0-52.0) % MCV (80.0-105.0) fl MCH (25.0-35.0) pg MCHC (31.0-37.0) g/dl RDW (11.5-14.5) % Plt Count (120.0-450.0) 10^3/uL Gran % (50.0-68.0) % Lymph % (Auto) (22.0-35.0) % [place] % (Auto) (1.0-6.0) % Eos % (Auto) (1.5-5.0) % Baso % (Auto) (0.0-3.0) % Gran # (1.4-6.5) Lymph # (Auto) (1.2-3.4) [place] # (Auto) (0.1-0.6) Eos # (Auto) (0.0-0.7) Baso # (Auto) (0.0-2.0) K/mm3 Sodium (132-148) mmol/L Potassium (3.6-5.0) mmol/L Chloride (98-107) mmol/L Carbon Dioxide (21-33) mmol/L Anion Gap (10-20) BUN (7-21) mg/dL Creatinine (0.8-1.5) mg/dl Est GFR ( Amer) Est GFR (Non-Af Amer) POC Glucose (mg/dL) 60 L 136 H (65-110) mg/dL Random Glucose (70-110) mg/dL Calcium (8.4-10.5) mg/dL Phosphorus (2.5-4.5) mg/dL Magnesium (1.7-2.2) mg/dL Total Bilirubin (0.2-1.3) mg/dL Direct Bilirubin (0.0-0.4) mg/dL AST (17-59) U/L ALT (7-56) U/L Alkaline Phosphatase (38-126) U/L Total Protein (5.8-8.3) g/dL Albumin (3.0-4.8) g/dL Globulin gm/dL Albumin/Globulin Ratio (1.1-1.8) Procalcitonin (0.19-0.49) NG/ML Tacrolimus (LC/MS/MS) 5.5 (5.0-20.0) mcg/L Crossmatch 03/06/18 Range/Units 16:47 WBC (4.5-11.0) 10^3/ul RBC (3.5-6.1) 10^6/uL Hgb (14.0-18.0) g/dL Hct (42.0-52.0) % MCV (80.0-105.0) fl MCH (25.0-35.0) pg MCHC (31.0-37.0) g/dl RDW (11.5-14.5) % Plt Count (120.0-450.0) 10^3/uL Gran % (50.0-68.0) % Lymph % (Auto) (22.0-35.0) % [place] % (Auto) (1.0-6.0) % Eos % (Auto) (1.5-5.0) % Baso % (Auto) (0.0-3.0) % Gran # (1.4-6.5) Lymph # (Auto) (1.2-3.4) [place] # (Auto) (0.1-0.6) Eos # (Auto) (0.0-0.7) Baso # (Auto) (0.0-2.0) K/mm3 Sodium (132-148) mmol/L Potassium (3.6-5.0) mmol/L Chloride (98-107) mmol/L Carbon Dioxide (21-33) mmol/L Anion Gap (10-20) BUN (7-21) mg/dL Creatinine (0.8-1.5) mg/dl Est GFR ( Amer) Est GFR (Non-Af Amer) POC Glucose (mg/dL) (65-110) mg/dL Random Glucose (70-110) mg/dL Calcium (8.4-10.5) mg/dL Phosphorus (2.5-4.5) mg/dL Magnesium (1.7-2.2) mg/dL Total Bilirubin (0.2-1.3) mg/dL Direct Bilirubin (0.0-0.4) mg/dL AST (17-59) U/L ALT (7-56) U/L Alkaline Phosphatase (38-126) U/L Total Protein (5.8-8.3) g/dL Albumin (3.0-4.8) g/dL Globulin gm/dL Albumin/Globulin Ratio (1.1-1.8) Procalcitonin (0.19-0.49) NG/ML Tacrolimus (LC/MS/MS) (5.0-20.0) mcg/L Crossmatch See Detail Laboratory Results - last 24 hr 03/06/18 03/09/18 03/09/18 16:47 11:47 12:30 WBC RBC Hgb Hct MCV MCH MCHC RDW Plt Count Gran % Lymph % (Auto) [place] % (Auto) Eos % (Auto) Baso % (Auto) Gran # Lymph # (Auto) [place] # (Auto) Eos # (Auto) Baso # (Auto) Sodium Potassium Chloride Carbon Dioxide Anion Gap BUN Creatinine Est GFR ( Amer) Est GFR (Non-Af Amer) POC Glucose (mg/dL) 136 H Random Glucose Calcium Phosphorus Magnesium Total Bilirubin Direct Bilirubin AST ALT Alkaline Phosphatase Total Protein Albumin Globulin Albumin/Globulin Ratio Procalcitonin Tacrolimus (LC/MS/MS) 5.5 Crossmatch See Detail 03/09/18 03/09/18 03/10/18 16:23 20:17 06:50 WBC RBC Hgb Hct MCV MCH MCHC RDW Plt Count Gran % Lymph % (Auto) [place] % (Auto) Eos % (Auto) Baso % (Auto) Gran # Lymph # (Auto) [place] # (Auto) Eos # (Auto) Baso # (Auto) Sodium 138 Potassium 3.5 L Chloride 102 Carbon Dioxide 29 Anion Gap 10 BUN 35 H Creatinine 2.8 H Est GFR ( Amer) 28 Est GFR (Non-Af Amer) 23 POC Glucose (mg/dL) 60 L 194 H Random Glucose 184 H Calcium 8.6 Phosphorus 2.4 L Magnesium 1.8 Total Bilirubin 0.4 Direct Bilirubin 0.4 AST 26 ALT 27 Alkaline Phosphatase 64 Total Protein 4.7 L Albumin 2.5 L Globulin 2.1 Albumin/Globulin Ratio 1.2 Procalcitonin Tacrolimus (LC/MS/MS) Crossmatch 03/10/18 03/10/18 03/10/18 06:50 06:50 07:30 WBC 3.7 L RBC 3.79 Hgb 9.2 L Hct 30.5 L MCV 80.5 MCH 24.3 L MCHC 30.2 L RDW 18.8 H Plt Count 205 Gran % 75.4 H Lymph % (Auto) 10.7 L [place] % (Auto) 11.2 H Eos % (Auto) 2.7 Baso % (Auto) 0.0 Gran # 2.75 Lymph # (Auto) 0.4 L [place] # (Auto) 0.4 Eos # (Auto) 0.1 Baso # (Auto) 0.00 Sodium Potassium Chloride Carbon Dioxide Anion Gap BUN Creatinine Est GFR ( Amer) Est GFR (Non-Af Amer) POC Glucose (mg/dL) 203 H Random Glucose Calcium Phosphorus Magnesium Total Bilirubin Direct Bilirubin AST ALT Alkaline Phosphatase Total Protein Albumin Globulin Albumin/Globulin Ratio Procalcitonin 8.44 H Tacrolimus (LC/MS/MS) Crossmatch 03/10/18 11:10 WBC RBC Hgb Hct MCV MCH MCHC RDW Plt Count Gran % Lymph % (Auto) [place] % (Auto) Eos % (Auto) Baso % (Auto) Gran # Lymph # (Auto) [place] # (Auto) Eos # (Auto) Baso # (Auto) Sodium Potassium Chloride Carbon Dioxide Anion Gap BUN Creatinine Est GFR ( Amer) Est GFR (Non-Af Amer) POC Glucose (mg/dL) 250 H Random Glucose Calcium Phosphorus Magnesium Total Bilirubin Direct Bilirubin AST ALT Alkaline Phosphatase Total Protein Albumin Globulin Albumin/Globulin Ratio Procalcitonin Tacrolimus (LC/MS/MS) Crossmatch Critical Care Progress Note - Nutrition Nutrition: Nutrition Category Date Time Status Diabetic [Consistent Carbohydrate] [DIET] Diets 03/03/18 Dinner Ordered Addendum Addendum: 03/10/18 17:20 ICU Attending Addendum: Patient seen and examined. Case reviewed on round with housestaff. Agree with resident note above with the following additions/exceptions: 67 M CKD, PCKD s/p renal transplant 2006, aortic valve replacement, anemia, insulin dependent diabetes, pulmonary hypertension, diastolic congestive heart failure intially admitted with hypotension / dehydratoin vs sepsis. Worsening acute on chronic renal failure started on HD this admission. Cardiac cath demonstrated aortic stenosis of porsthetic valve. patient is being transferred to [facility] for TAVR. nephro on board managing HD, last HD was thursday 03/08 taper back to home steroids Pred 5mg daily Abx as per ID on merrem and doxy CT shows large 8.3 infrarenal AAA which is chronic. He also has hx of aortic dissection. F/u at [facility] with vasc surg who is familiar with the patient. rest of care above Serenity Murray MD Shell Sieve Operator
[2018-03-10] MEDS: Ammonium Lactate 12% Lotion (225 g) EXT SCH ×2 (10:00→14:51)
--- NOTE | 2018-03-10 11:12 | RAD ---
Date of service: 03/10/2018 HISTORY: CHF? COMPARISON: 03/06/2018 FINDINGS: LUNGS: No active pulmonary disease. PLEURA: Small bilateral effusions slightly decreased CARDIOVASCULAR: Minimal vascular congestion. OSSEOUS STRUCTURES: No significant abnormalities. VISUALIZED UPPER ABDOMEN: Normal. OTHER FINDINGS: None. IMPRESSION: Minimal vascular congestion. Slight decrease in small effusions
--- NOTE | 2018-03-10 11:32 | PN ---
DATE: 03/10/2018 SUBJECTIVE: The patient is asymptomatic. No shortness of breath. No chest pain at rest. PHYSICAL EXAMINATION: VITAL SIGNS: Blood pressure is 141/91, heart rates in the 90s. NECK: Negative JVD. LUNGS: Without rales. HEART: Reveals a 2/6 systolic ejection murmur. EXTREMITIES: Without edema. LABORATORY DATA: Hemoglobin is 9.2, BUN and creatinine is 35 and 2.8, the glucose is 184. IMPRESSION: 1. Aortic stenosis of prosthetic aortic valve. 2. Large abdominal aortic aneurysm of the abdomen. 3. Diabetes mellitus. 4. End-stage renal disease. 5. Anemia. Given these findings, the patient is scheduled for transfer to [facility] or [facility] for transcatheter aortic valve replacement and then evaluation for repair of the abdominal aortic aneurysm. Carlos Shane MD
[2018-03-10] MEDS: POLYETHYLENE GLYCOL 3350 17 GM/Dose PACKET PO SCH (11:42)
[2018-03-10 12:27] VITALS: TEMP 98.9
--- NOTE | 2018-03-10 13:06 | CP.PCM.PN ---
Subjective - Date & Time of Evaluation Date of Evaluation: 03/10/18 Time of Evaluation: 09:40 - Subjective Subjective: Patient is comfortable in bed, no fevers, not in distress. Objective - Vital Signs/Intake and Output Vital Signs (last 24 hours): Temp Pulse Resp BP Pulse Ox 98.8 F 88 30 H 145/77 98 03/10/18 04:00 03/10/18 06:00 03/10/18 06:00 03/10/18 06:00 03/10/18 06:00 Intake and Output: 03/09/18 03/10/18 18:59 06:59 Intake Total 700 350 Output Total 230 Balance 470 350 - Medications Medications: Current Medications Acetaminophen (Tylenol 325mg Tab) 650 mg PO Q6 PRN PRN Reason: TEMP>=99.5F Acetaminophen (Tylenol 650 Mg Supp) 650 mg RC Q6H PRN PRN Reason: TEMP>=99.5F Acetaminophen (Tylenol 650 Mg Supp) 650 mg RC Q6H PRN PRN Reason: Headache Acetaminophen (Tylenol 325mg Tab) 650 mg PO Q6H PRN PRN Reason: Headache Atorvastatin Calcium (Lipitor) 20 mg PO DIN [facility] Last Admin: 03/09/18 17:16 Dose: 20 mg Benzonatate (Tessalon Perles) 200 mg PO TID [facility] Last Admin: 03/09/18 17:17 Dose: 200 mg Calcitriol (Rocaltrol) 0.25 mcg PO DAILY [facility] Last Admin: 03/09/18 09:26 Dose: 0.25 mcg Calcium Acetate (Phoslo) [address] [facility] Cinacalcet (Sensipar) 30 mg PO DAILY [facility] Ezetimibe (Zetia) 10 mg PO DAILY [facility] Last Admin: 03/09/18 09:27 Dose: 10 mg Ferrous Gluconate (Fergon) 324 mg PO BID [facility] Last Admin: 03/09/18 17:16 Dose: 324 mg Hydrocortisone Sodium Succinate (Solu-Cortef) 25 mg IVP DAILY [facility] Last Admin: 03/09/18 09:24 Dose: 25 mg Doxycycline Hyclate 100 mg/ (Sodium Chloride) 100 mls @ 100 mls/hr IVPB Q12 [facility]; Protocol Last Admin: 03/09/18 21:09 Dose: 100 mls/hr Meropenem 500 mg/ Sodium (Chloride) 50 mls @ 100 mls/hr IVPB Q24H [facility]; Protocol Stop: 03/10/18 22:46 Last Admin: 03/09/18 22:19 Dose: 100 mls/hr Insulin Human Lispro (Humalog High) 0 units SC ACHS [facility]; Protocol Last Admin: 03/09/18 22:56 Dose: Not Given Lactic Acid (Lac-Hydrin 12% Lotion (225 G)) 0 gm EXT TID [facility] Last Admin: 03/09/18 17:12 Dose: 1 applic Levalbuterol HCl (Xopenex) 0.63 mg IH [id number] [facility] Last Admin: 03/10/18 02:25 Dose: Not Given Metoprolol Tartrate (Lopressor) 50 mg PO BID [facility] Last Admin: 03/09/18 17:15 Dose: 50 mg Mycophenolate Mofetil (Cellcept Cap) 500 mg PO Q12H [facility] Last Admin: 03/09/18 21:08 Dose: 500 mg Ondansetron HCl (Zofran Inj) 4 mg IVP Q4H PRN PRN Reason: Nausea/Vomiting Pantoprazole Sodium (Protonix Ec Tab) 40 mg PO 0600 [facility] Last Admin: 03/10/18 05:39 Dose: 40 mg Polyethylene Glycol (Miralax) 17 gm PO BID [facility] Last Admin: 03/09/18 17:11 Dose: Not Given Prednisone (Prednisone Tab) 5 mg PO DAILY [facility] Last Admin: 03/09/18 09:26 Dose: 5 mg Tacrolimus (Prograf Cap) 2 mg PO QAM [facility] Last Admin: 03/08/18 10:07 Dose: 2 mg Tacrolimus (Prograf Cap) 1 mg PO DAILY@2200 [facility] Last Admin: 03/09/18 21:09 Dose: 1 mg - Labs Labs: 03/09/18 07:00 03/09/18 07:00 PT 12.8 SECONDS (9.4-12.5) H 03/03/18 10:20 INR 1.11 03/03/18 10:20 APTT 27.9 Seconds (25.1-36.5) 03/03/18 10:20 - Constitutional Appears: Non-toxic, Chronically Ill - Head Exam Head Exam: NORMAL INSPECTION - Respiratory Exam Respiratory Exam: Decreased Breath Sounds - Cardiovascular Exam Cardiovascular Exam: +S1, +S2 - GI/Abdominal Exam GI & Abdominal Exam: Soft. absent: Tenderness Assessment and Plan - Assessment and Plan (Free Text) Plan: Assessment systemic inflammatory response syndrome, consider due to worsening renal failure with uremia, R/O sepsis due to right sided HCAP, clinically improved history of sepsis due to gram negative bacilli bacteremia on top of systemic viral illness with Influenza polycystic kidney disease S/P renal transplant in 2006 HTN abdominal aortic aneurysm with history of aortic dissection S/P aortic valve replacement dyslipidemia S/P bilateral inguinal hernia repair Plan completed 6 days of Merrem and Doxycycline - will d/c antibiotics and observe reviewed CT C/A/P showing right sided infiltrate cardiac cath had unremarkable coronary arteries as per report will continue to monitor clinically
[2018-03-10 16:18] VITALS: BP 120/72; PULSE 81; RESP 32; O2SAT 92
--- NOTE | 2018-03-10 17:07 | DS ---
FINAL PROGRESS NOTE AND DISCHARGE SUMMARY DATE: 03/10/2018 SUBJECTIVE: The patient was seen lying in the bed in the CCU, bed 2. Patient is comfortable. Overnight nurse's notes were reviewed. According to the nurse's note, the patient was found to be episodically alert, awake, and oriented x2. PHYSICAL EXAMINATION: VITAL SIGNS: T-max is 99.2. Telemetry shows sinus rhythm; heart rate 88, 93; blood pressure 145/77, 141/91; respiration 22; O2 sat 94% to 98%. HEENT: Head: Normocephalic, atraumatic. Pinkish pale conjunctivae. Anicteric sclerae. No oropharyngeal lesion. NECK: No neck rigidity. CHEST: Kyphosis. Positive median sternotomy surgical scar. Decreased breath sound at the bases. Occasional rhonchi in the upper lung jenkins anteriorly. CARDIOVASCULAR: Shows S1, S2. Positive systolic murmur in the left second intercostal space, left sternal border, right second intercostal space. ABDOMEN: Soft. Positive bowel sounds, positive midline pulsation. GENITALIA: Male. EXTREMITIES: Lower extremity shows trace swelling of the ankle and feet. No pitting edema. Positive SCDs, KRYSTAL stockings are missing. Positive left upper extremity AV fistula, positive thrill noted. MUSCULOSKELETAL: Shows a body mass index of 16. DIAGNOSTICS: 03/10/2018: WBC 3.7, hemoglobin and hematocrit 9.2 and 30.5, platelet 205, granulocytes 75%. Chemistry: Potassium 3.5. BUN 35, creatinine 2.8. Glucose 184. Phosphorus 2.4. Total protein 4.7, albumin 2.5. Microbiology cultures negative. The patient received 2 units of PRBC. Chest x-ray was done, ordered by the porcelain enamel repairer, which shows decreased bilateral pleural effusion, minimal vascular congestion. FINAL IMPRESSION & PLAN AND DISCHARGE DIAGNOSES: 1. Systemic inflammatory response syndrome. 2. 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 3. Acute renal failure, intermittent hemodialysis requiring. 4. Status post allograft renal transplant, probably failing renal transplant. 5. Anemia. 6. Deconditioning. 7. Hypertension. 8. Leukopenia, anemia, granulocytosis. 9. Bandemia 10. Uncontrolled insulin-requiring diabetes mellitus with hemoglobin A1c of 10.4 and fructosamine level of 492. 11. Mild protein malnutrition and hypoalbuminemia. 12. Resolving bilateral pleural effusion with persistent pulmonary vascular congestion. 13. Acute kidney injury with chronic kidney disease stage IV of the transplanted kidney with oliguric renal failure secondary to acute tubular necrosis. 14. Abdominal aortic aneurysm. 15. Transfusion-dependent anemia. 16. Secondary hyperparathyroidism. 1. Systemic inflammatory response syndrome with tachycardia, hypotension and worsening renal failure and uremia. 2. Hypertension. 3. Tachycardia. 4. Low-grade fever. 5. Status post hypotension. 6. Tachypnea. 7. Hypoxemia. 8. Leukopenia, anemia, granulocytosis, bandemia. 9. Status post packed red blood cell transfusion. 10. Increased anion gap metabolic acidosis and lactic acidosis. 11. Acute renal failure, hemodialysis requiring. 12. 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 13. Uncontrolled insulin-requiring diabetes mellitus with elevated hemoglobin A1c of 10.4 and fructosamine of 492. 14. Mild protein malnutrition and hypoalbuminemia. 15. Possible diastolic congestive heart failure with elevated BNP. 16. Hyperprocalcitoninemia. 17. Secondary hyperparathyroidism with elevated PTH of almost 460. 18. Proteinuria, bacteriuria. 19. Stool occult blood positive, etiology undetermined. 20. Indeterminate hepatitis B surface antibody. 21. Status post packed red blood cell transfusion x2. 22. Acute kidney injury with underlying chronic kidney disease stage 4 and oliguric renal failure secondary to acute tubular necrosis, status post hemodialysis. 23. Anemia of chronic kidney disease and renal disease. 24. Immunosuppressed status secondary to renal transplant. 25. Failing renal allograft transplant. 26. History of abdominal aortic aneurysm. 27. 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 28. Severe aortic stenosis. 29. 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 30. Deconditioning. 31. Gait dysfunction. 32. Bilateral lower extremity venous stasis. 33. Constipation. 34. Episodic confusion versus ICU psychosis. 35. Hyperlipidemia. 1. Severe symptomatic hypotension with severe symptomatic anemia and symptoms of fatigue, tiredness, shortness of breath and dyspnea on exertion. 2. Possible systemic inflammatory response syndrome. 3. Tachycardia. 4. Hypertension. 5. Tachypnea. 6. Episodic hypoxemia. 7. Microcytic anemia, status post packed red blood cells transfusion. 8. Bandemia. 9. Granulocytosis. 10. Increased anion gap metabolic acidosis and lactic acidosis. 11. History of renal transplant. 12. Uncontrolled insulin-requiring diabetes mellitus with hemoglobin A1c of 10.4. 13. Non-hemolyzed hyperkalemia. 14. Hyponatremia. 15. History of transfusion dependent anemia. 16. Elevated fructosamine level of 492. 17. Questionable diastolic congestive heart failure with elevated brain natriuretic peptide. 18. Hyperprolactinemia. 19. Secondary hyperparathyroidism with elevated parathyroid hormone of 469. 20. Mild protein malnutrition and hypoalbuminemia. 21. 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 22. Status post cardiac catheterization. 23. Elevated pulmonary artery pressure of 45/20. 24. Pulmonary hypertension. 25. Large abdominal aortic aneurysm. 26. Acute renal failure, hemodialysis requiring, with failure of the transplanted kidney. 27. Acute kidney injury with underlying chronic kidney disease stage IV of the transplanted kidney. 28. Acute tubular necrosis. 29. Deconditioning. 30. Gait dysfunction. 31. Constipation. 32. Hyperlipidemia. 33. Secondary hyperparathyroidism. 1. Systemic inflammatory response syndrome with tachycardia, hypotension, tachypnea and hypoxemia. 2. Severe bioprosthetic aortic valve stenosis with poorly visualized bioprosthetic aortic valve. 3. Left ventricular ejection fraction of 63% with moderate concentric left ventricular hypertrophy and grade I abnormal relaxation pattern. 4. Moderately thickened mitral valve. 5. Mild tricuspid and pulmonic regurgitation. 6. Moderate bilateral pleural effusion. 7. Small pericardial effusion. 8. History of renal transplant with possible renal transplant failure, requiring dialysis. 9. History of end-stage renal disease, hemodialysis dependent, status post renal transplant. 10. Possible left lower lobe pneumonia and elevated right hemidiaphragm. 11. Status post aortic valve replacement. 12. Status post right upper extremity midline placement. 13. Microcytic anemia. 14. Status post packed red blood cell transfusion x2. 15. Granulocytosis. 16. Bandemia. 17. Increased anion gap metabolic acidosis. 18. Hypokalemia. 19. Status post non-hemolyzed hyperkalemia. 20. Uncontrolled diabetes mellitus with hemoglobin A1c of 10.4 and fructosamine of 492. 21. History of transfusion-dependent anemia. 22. Hyperprolactinemia. 23. Secondary hyperparathyroidism with elevated parathyroid hormone of greater than 469. 24. Hypocalcemia. 25. Hyperphosphatemia. 26. Proteinuria. 27. Status post hyponatremia. 28. Questionable and possible iron deficiency. 29. renal failure with intermittent hemodialysis requiring renal failure via the left upper extremity arteriovenous fistula. 30. Sinus tachycardia. 31. Left axis deviation. 32. Hypertensive cardiovascular disease. 33. Hyperparathyroidism. 34. Anemia of chronic kidney disease. 35. Immunosuppressed status. 36. Chronic kidney disease stage IV. 37. Abdominal aortic aneurysm. 38. Critical aortic stenosis of a bioprosthetic aortic valve. 39. Failure of the transplanted kidneys. 40. History of polycystic kidney disease. 41. History of hypertension. 42. History of pulmonary hypertension. 43. History of bilateral lower extremity venous stasis. 1. Systemic inflammatory response syndrome. 2. Low-grade fever. 3. Sinus tachycardia. 4. Hypertension. 5. Tachypnea. 6. Tachycardia. 7. Hypertension. 8. Leukopenia. 9. Microcytic anemia with decreasing hemoglobin and hematocrit. 10. Granulocytosis. 11. Increased anion gap metabolic acidosis and lactic acidosis. 12. Status post non-hemolyzed hyperkalemia, now hypokalemia. 13. Insulin-requiring diabetes mellitus with hemoglobin A1c of 10.4. 14. Questionable iron deficiency. 15. Intermittent hemodialysis-requiring renal failure. 16. Increased anion gap metabolic acidosis. 17. Possible diastolic congestive heart failure with elevated BNP. 18. Hyperprocalcitoninemia. 19. Protein malnutrition. 20. Hypoalbuminemia. 21. Bilateral lower extremity venous stasis. 22. Secondary hyperparathyroidism with elevated PTH level of greater than 469. 23. Status post 1 unit PRBC transfusion. 24. Status post right upper extremity midline placement. 25. Bilateral pleural effusion, right more than the left. 26. Questionable left lower lobe pneumonia with elevated right hemidiaphragm. 27. Status post aortic valve replacement. 28. Pulmonary vascular congestion. 29. Hypoproliferative erythroid response. 30. Anemia of chronic disease. 31. Mycotic elongated toenails, status post debridement. 32. Poor hygienic status. 33. Acute kidney injury with underlying chronic kidney disease, status post renal transplant and history of intermittent history of end-stage renal disease, hemodialysis dependent in the past. 1. Systemic inflammatory response syndrome secondary to uremia and acute renal failure. 2. Hypotension. 3. Tachycardia. 4. Tachypnea. 5. Leukopenia. 6. Anemia. 7. Granulocytosis. 8. Increased anion gap metabolic acidosis and lactic acidosis. 9. Severe metabolic acidosis. 10. Questionable uncontrolled type 1 diabetes mellitus with hemoglobin A1c of 10.4. 11. Secondary hyperparathyroidism with elevated PTH level. 12. Hyperprocalcitoninemia. 13. Non-hemolyzed hyperkalemia. 14. Hyponatremia. 15. Hyperglycemia. 16. Hyperphosphatemia. 17. Proteinuria. 18. Bacteriuria. 19. Questionable left lower lobe pneumonia. 20. Bilateral pleural effusion. 21. Cardiomegaly. 22. Aortic valve replacement. 23. Left axis deviation. 24. History of polycystic kidney disease. 25. Abdominal aortic aneurysm. 26. Mycotic elongated toenails and xerostomia. 27. Status post bilateral feet toenail debridement. 28. Pulmonary hypertension. 29. Possible questionable sepsis versus systemic inflammatory response syndrome. 30. Status post renal transplant, on immunosuppression. 31. Insulin-requiring diabetes mellitus. 32. Deconditioning. 33. Hypocalcemia. 1. Hypotensive shock versus questionable septic shock with hyperprocalcitoninemia. 2. History of polycystic kidney disease, history of renal transplant. 3. Lactic acidosis. 4. Increased anion gap metabolic acidosis. 5. Tachycardia. 6. Tachypnea. 7. Leukopenia, anemia. 8. Granulocytosis. 9. Lactic acidosis. 10. Increased anion gap metabolic acidosis. 11. Severe metabolic acidosis. 12. Hyponatremia. 13. Status post hyperkalemia. 14. Hemodialysis requiring renal failure. 15. Hypocalcemia. 16. Hyperphosphatemia. 17. Hypomagnesemia. 18. Protein malnutrition. 19. Hypoalbuminemia. 20. Secondary hyperparathyroidism with elevated PTH of 469. 21. Hyperprocalcitoninemia. 22. Right upper lobe pneumonia. 23. Bibasilar atelectasis and bilateral pleural effusion. 24. Status post aortic valve replacement. 25. Status post aortic valve replacement with proximal aortic valve graft. 26. Descending aortic aneurysm. 27. Bilateral pleural effusion, left more than the right. 28. Dilated esophagus. 29. Multiple hepatic cyst and masses. 30. Gallbladder distention. 31. Polycystic kidney disease. 32. An 8.3-cm infrarenal abdominal aortic aneurysm. 33. Chronic infrarenal abdominal aortic dissection at and below the level of the renal arteries. 34. Diverticulosis of the colon. 35. Hydronephrosis of the transplanted kidney. 36. Polycystic kidney disease. 37. Left axis deviation. 38. Coronary ischemic changes. 39. 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 40. Acute renal failure with acute kidney injury with underlying chronic kidney disease and possible failing transplanted renal allograft. 41. Questionable and possible septic versus hypovolemic and hypotensive shock. 42. High anion gap metabolic acidosis. 1. Severe symptomatic hypotension. 2. Severe symptomatic anemia with symptoms of fatigue, tiredness, shortness of breath and dyspnea on exertion. 3. Worsening renal failure with worsening chronic kidney disease. 4. Hyponatremia. 5. Hyperkalemia. 6. Anemia of chronic kidney disease with iron-deficiency anemia. 7. Granulocytosis. 8. Lymphocytopenia. 9. Hyponatremia. 10. Non-hemolyzed hyperkalemia. 11. Increased anion gap metabolic acidosis. 12. History of end-stage renal disease, hemodialysis dependent in the past with status post renal transplant. 13. Insulin-requiring diabetes mellitus with hyperglycemia. 14. Hypocalcemia. PLAN: At this time, the patient is still awaiting for a transfer to [facility] or [facility] for transcatheter aortic valve replacement and repair of abdominal aortic aneurysm. The patient was evaluated by Cardiology today. Repeat labs ordered. The patient's hypokalemia and hypophosphatemia will be deferred to the porcelain enamel repairer evaluation and recommendation. CURRENT MEDICATIONS: CellCept 500 p.o. every 12 hours, doxycycline 100 mg IV every 12 hours, Fergon 325 twice a day, Humalog high-dose sliding scale coverage, Lac-Hydrin lotion to both legs and feet, Lipitor 20 mg daily, Lopressor 50 mg twice a day, meropenem 500 IV every 24 hours, MiraLax 17 g twice a day, PhosLo 667 mg with meals, prednisone 5 mg daily, Prograf 2 mg in the a.m., Prograf 1 mg in the p.m., Protonix 40 mg daily, Rocaltrol 0.25 mcg daily. The patient is still on hydrocortisone which has been ordered by the ICU team 25 mg IV daily, Tessalon Perles 200 three times a day, Tylenol 650 every 6 hours p.r.n., Xopenex 0.63 mg every 6 hours, Zetia 10 mg daily, Zofran 4 mg IV every 4 hours p.r.n. SCDs, KRYSTAL stockings, out of bed, physical therapy, occupational therapy ordered. Overall prognosis guarded to poor. PATIENT ACCEPTED TO [facility] BED AVAILABLE PATIENT TRANSFERRED TO [facility] FOR TAVR, PLUS VASCULAR SURGERY EVALUATION. Dictated and electronically signed, not read. Mart Knox MD [facility] # [id number] [place]
--- NOTE | 2018-03-11 08:23 | CP.PCM.PN ---
Subjective - Date & Time of Evaluation Date of Evaluation: 03/10/18 Time of Evaluation: 10:00 - Subjective Subjective: Patient tolerating diet; denies sob; awaiting transfer to [facility] for TAVR; Objective - Vital Signs/Intake and Output Vital Signs (last 24 hours): Temp Pulse Resp BP Pulse Ox 98.9 F 81 32 H 120/72 92 L 03/10/18 08:00 03/10/18 16:00 03/10/18 16:00 03/10/18 16:00 03/10/18 16:00 - Labs Labs: 03/10/18 06:50 03/10/18 06:50 PT 12.8 SECONDS (9.4-12.5) H 03/03/18 10:20 INR 1.11 03/03/18 10:20 APTT 27.9 Seconds (25.1-36.5) 03/03/18 10:20 - Constitutional Appears: Non-toxic, No Acute Distress - Respiratory Exam Respiratory Exam: Clear to Ausculation Bilateral. absent: Respiratory Distress - Cardiovascular Exam Cardiovascular Exam: RRR Additional comments: loud systolic murmur; - GI/Abdominal Exam GI & Abdominal Exam: Soft, Pulsatile Mass. absent: Tenderness - Extremities Exam Additional comments: mild lower leg edema (improved); - Neurological Exam Neurological Exam: Alert, Awake - Psychiatric Exam Psychiatric exam: Normal Mood. absent: Agitated - Skin Skin Exam: Warm. absent: Cyanosis Assessment and Plan (1) Acute kidney injury Assessment & Plan: MYRNA on CKD IV; likely ATN in the setting of severe sepsis; initiated on HD, last treatment 2 days ago; stable volume and electrolyte status; UO possibly in creased but patient incontinent at times; holding off on HD today, will monitor rate in rise of serum creatinine and plan for HD tomorrow if patient still here; Status: Acute (2) Severe sepsis Assessment & Plan: On meropenem, continue to dose for HD; Status: Acute (3) Anemia of renal disease Assessment & Plan: Hgb stable, s/p prbc transfusion and aranesp, monitor; re-dose aranesp weekly; Status: Acute (4) Immunosuppression Assessment & Plan: On tac 2/, MMF 500 bid and pred 5 daily, continue; Status: Acute (5) Chronic kidney disease (CKD), stage IV (severe) Status: Chronic (6) AAA (abdominal aortic aneurysm) Status: Chronic (7) Chronic kidney disease-mineral and bone disorder Assessment & Plan: Low phos, holding binder; continue calcitriol 0.25 mcg daily, awaiting repeat PTH; Status: Acute (8) Renal transplant, status post Status: Chronic (9) Aortic stenosis Status: Acute
== END 2018-03-10 16:27 | disposition short-term general hospital (02) | DRG 871 ==
LOC: ED 08:48 → ERH 11:19 → CCU 18:18
PROVIDERS: ADMIT Internal Medicine; ATTEND Internal Medicine
PROC: 5A1D70Z Performance of Urinary Filtration, Intermittent, Less than 6 Hours Per Day (ICD-10-PCS; 2018-03-04)
PROC: 05HY33Z Insertion of Infusion Device into Upper Vein, Percutaneous Approach (ICD-10-PCS; 2018-03-04)
PROC: B54MZZA Ultrasonography of Right Upper Extremity Veins, Guidance (ICD-10-PCS; 2018-03-04)
PROC: 5A1D70Z Performance of Urinary Filtration, Intermittent, Less than 6 Hours Per Day (ICD-10-PCS; 2018-03-05)
PROC: 30233N1 Transfusion of Nonautologous Red Blood Cells into Peripheral Vein, Percutaneous Approach (ICD-10-PCS; 2018-03-05)
PROC: 5A1D70Z Performance of Urinary Filtration, Intermittent, Less than 6 Hours Per Day (ICD-10-PCS; 2018-03-06)
PROC: 4A023N8 Measurement of Cardiac Sampling and Pressure, Bilateral, Percutaneous Approach (ICD-10-PCS; principal; 2018-03-07)
PROC: B2151ZZ Fluoroscopy of Left Heart using Low Osmolar Contrast (ICD-10-PCS; 2018-03-07)
PROC: B3101ZZ Fluoroscopy of Thoracic Aorta using Low Osmolar Contrast (ICD-10-PCS; 2018-03-07)
PROC: B2111ZZ Fluoroscopy of Multiple Coronary Arteries using Low Osmolar Contrast (ICD-10-PCS; 2018-03-07)
PROC: 5A1D70Z Performance of Urinary Filtration, Intermittent, Less than 6 Hours Per Day (ICD-10-PCS; 2018-03-08)
DX: A41.9 Sepsis, unspecified organism (principal); J18.9 Pneumonia, unspecified organism; N18.6 End stage renal disease; I13.2 Hypertensive heart and chronic kidney disease with heart failure and with stage 5 chronic kidney disease, or end stage renal disease; I50.30 Unspecified diastolic (congestive) heart failure; R64 Cachexia; E87.1 Hypo-osmolality and hyponatremia; N25.81 Secondary hyperparathyroidism of renal origin; E87.2 Acidosis; N13.30 Unspecified hydronephrosis; J98.11 Atelectasis; I31.3 Pericardial effusion (noninflammatory); E44.1 Mild protein-calorie malnutrition; Z68.1 Body mass index [BMI] 19.9 or less, adult; Z94.0 Kidney transplant status; Q61.3 Polycystic kidney, unspecified; R65.20 Severe sepsis without septic shock; E87.5 Hyperkalemia; D50.9 Iron deficiency anemia, unspecified; I71.4 Abdominal aortic aneurysm, without rupture; D63.1 Anemia in chronic kidney disease; E78.5 Hyperlipidemia, unspecified; I95.9 Hypotension, unspecified; E86.0 Dehydration; I35.2 Nonrheumatic aortic (valve) stenosis with insufficiency; E11.65 Type 2 diabetes mellitus with hyperglycemia; E11.22 Type 2 diabetes mellitus with diabetic chronic kidney disease; I27.20 Pulmonary hypertension, unspecified; I35.0 Nonrheumatic aortic (valve) stenosis; E83.51 Hypocalcemia; E83.42 Hypomagnesemia; E78.00 Pure hypercholesterolemia, unspecified; D72.810 Lymphocytopenia; I87.8 Other specified disorders of veins; E87.6 Hypokalemia; K57.30 Diverticulosis of large intestine without perforation or abscess without bleeding; Z79.899 Other long term (current) drug therapy; Z99.2 Dependence on renal dialysis; Z79.4 Long term (current) use of insulin; Z95.2 Presence of prosthetic heart valve; Z87.891 Personal history of nicotine dependence; Z82.71 Family history of polycystic kidney

== ENCOUNTER 2018-04-07 18:57 | Emergency (ER) | payer MEDICARE, OTHER ==
[2018-04-07 19:43] VITALS: TEMP 98.1; BMI 16.7
[2018-04-07 21:10] LABS: BASO # 0.01 K/mm3 (0.0-2.0); BASO % 0.3 % (0.0-3.0); EOS % 0.3 % (1.5-5.0); GRAN # 2.14 (1.4-6.5); GRAN % 62.5 % (50.0-68.0); HEMOGLOBIN 8.9 g/dL (14.0-18.0); LYMPH # 0.8 (1.2-3.4); LYMPH % 23.4 % (22.0-35.0); MEAN CELL VOLUME 88.6 fl (80.0-105.0); MEAN CORPUSCULAR HEMOGLOBIN 25.4 pg (25.0-35.0); MEAN CORPUSCULAR HGB CONC 28.6 g/dl (31.0-37.0); MONO # 0.5 (0.1-0.6); MONO % 13.5 % (1.0-6.0); PLATELET COUNT 101 10^3/uL (120.0-450.0); RBC 3.51 10^6/uL (3.5-6.1); RED CELL DISTRIBUTION WIDTH 19.1 % (11.5-14.5); WHITE BLOOD COUNT 3.4 10^3/uL (4.5-11.0)
[2018-04-07 21:17] LABS: INR 1.11; PARTIAL THROMBOPLASTIN TIME 29.3 Seconds (25.1-36.5); PROTHROMBIN TIME 12.7 SECONDS (9.4-12.5)
--- NOTE | 2018-04-07 21:49 | ED PDOC ---
Arrival/HPI - General Chief Complaint: Abnormal Labs Time Seen by Provider: 04/07/18 19:10 Historian: Patient - History of Present Illness Narrative History of Present Illness (Text): 04/08/18 01:21 67yo male with pmhx of anemia, hypertension, ESRD on dialysis (MWF) referred to ED for lab and possible transfusion from dialysis. Patient states he was referred to ED for labs and transfusion after dialysis. He denies melena, judit temesis, chest pain, SOB, diaphoresis, dizziness, nausea, vomiting, any other complaint. Past Medical History - Provider Review Nursing Documentation Reviewed: Yes - Infectious Disease Hx of Infectious Diseases: None - Cardiac Hx Cardiac Disorders: Yes (CAD) Hx Hypertension: Yes Hx Peripheral Edema: Yes (+1 pitting ble) Other/Comment: Aortic Valve Replacement at [facility], aortic abdominal aneurysm unable to do sx at present time - Pulmonary Hx Respiratory Disorders: No - Neurological Hx Neurological Disorder: No - HEENT Hx HEENT Disorder: Yes (wears glasses) - Renal Hx Renal Disorder: Yes (stage iv) Hx Dialysis: Yes (left arm fistula) Other/Comment: Kidney transplant at [facility], last dialysis oct 08 2006, hypertensive chronic kidney disease - Endocrine/Metabolic Hx Endocrine Disorders: Yes Hx Diabetes Mellitus Type 2: Yes - Hematological/Oncological Hx Blood Disorders: Yes (blood transfusions most recent 3 wks ago) Hx Anemia: Yes (iron deficiency) Other/Comment: dx with anemia 2 yrs ago unable to get a colonoscopy due to aaa, may try new procedure in [place] as per pt, receives iron infusions from pt's dr yordy pope in [place] - Integumentary Hx Dermatological Disorder: Yes Other/Comment: multiple skin discolorations ble, pt refusing for me to removd his anti embolism stockings/shoes and socks to assess feet, pt stated "I'm embarrassed. I plan to see foot dr within a few weeks but I have had other health problems." pt stated. - Musculoskeletal/Rheumatological Hx Musculoskeletal Disorders: Yes Hx Unsteady Gait: Yes - Gastrointestinal Hx Gastrointestinal Disorders: Yes (poor appetite weight loss) Other/Comment: AAA, chronic hiccups - Genitourinary/Gynecological Hx Genitourinary Disorders: Yes Other/Comment: bilateral inguinal hernias (repaired) - Psychiatric Hx Psychophysiologic Disorder: No Hx Substance Use: No - Surgical History Hx Kidney Transplant: Yes (last hd oct 08 2006) Other/Comment: Aortic valve replacement, left forearm fistula not is use since october 08, 2006 - Anesthesia Hx Anesthesia: Yes Hx Anesthesia Reactions: No Hx Malignant Hyperthermia: No Family/Social History - Physician Review Nursing Documentation Reviewed: Yes Family/Social History: Unknown Family HX Smoking Status: Former Smoker Hx Alcohol Use: No Hx Substance Use: No Allergies/Home Meds Allergies/Adverse Reactions: Allergies No Known Allergies Allergy (Verified 04/07/18 19:37) Home Medications: Home Meds Medication Instructions Recorded Confirmed Cyproheptadine [Periactin] 4 mg PO BID 03/03/18 03/03/18 RX: amLODIPine [Norvasc] 10 mg PO BID 03/03/18 03/03/18 Review of Systems - Physician Review All systems were reviewed & negative as marked: Yes - Review of Systems Constitutional: Other (Evaluation for anemia) Eyes: Normal ENT: Normal Respiratory: Normal Cardiovascular: Normal Gastrointestinal: Normal Genitourinary Male: Normal Musculoskeletal: Normal Skin: Normal Neurological: Normal Endocrine: Normal Hemo/Lymphatic: Normal Psychiatric: Normal Physical Exam Vital Signs Reviewed: Yes Vital Signs Temp Pulse Resp BP Pulse Ox 04/07/18 19:37 98.1 F 111 H 22 109/73 95 Temperature: Afebrile Blood Pressure: Normal Pulse: Tachycardic Respiratory Rate: Normal Appearance: Positive for: Non-Toxic, Comfortable, Cachectic Pain Distress: None Mental Status: Positive for: Alert and Oriented X 3 - Systems Exam Head: Present: Atraumatic, Normocephalic Pupils: Present: PERRL Extroacular Muscles: Present: EOMI Conjunctiva: Present: Normal Mouth: Present: Moist Mucous Membranes Neck: Present: Normal Range of Motion Respiratory/Chest: Present: Clear to Auscultation, Good Air Exchange. No: Respiratory Distress, Accessory Muscle Use Cardiovascular: Present: Regular Rate and Rhythm, Normal S1, S2. No: Murmurs Abdomen: No: Tenderness, Distention, Peritoneal Signs Back: Present: Normal Inspection Upper Extremity: Present: Normal Inspection. No: Cyanosis, Edema Lower Extremity: Present: Normal Inspection. No: Edema Neurological: Present: GCS=15, CN II-XII Intact, Speech Normal Skin: Present: Warm, Dry, Normal Color. No: Rashes Psychiatric: Present: Alert, Oriented x 3, Normal Insight, Normal Concentration Medical Decision Making ED Course and Treatment: 04/08/18 01:25 PT presented to ED for stqted history. He appeared cachectic in ED and tachy, but this is his baseline. He was placed on 3L of NC in ED. Case was DW Dr. Knox who clarified that he sent a transfusion order to pt's NH for him to be transfuse if needed while getting dialyzed. He recommend that pt should be DC back to the NH if his h/h is at his baseline Lab was done and reviewed and h/h of 8.9 was noted. Pt was DC back to the NH - Lab Interpretations Lab Results: 04/07/18 21:00 Lab Results 04/07/18 21:00: PT 12.7 H, INR 1.11, APTT 29.3 04/07/18 21:00: WBC 3.4 L, RBC 3.51, Hgb 8.9 L, Hct 31.1 L, MCV 88.6 D, MCH 25.4, MCHC 28.6 L, RDW 19.1 H, Plt Count 101 L, Gran % 62.5, Lymph % (Auto) 23.4, [place] % (Auto) 13.5 H, Eos % (Auto) 0.3 L, Baso % (Auto) 0.3, Gran # 2.14, Lymph # (Auto) 0.8 L, [place] # (Auto) 0.5, Eos # (Auto) 0.0, Baso # (Auto) 0.01 Disposition/Present on Arrival - Present on Arrival Any Indicators Present on Arrival: No History of DVT/PE: No History of Uncontrolled Diabetes: No Urinary Catheter: No History of Decub. Ulcer: No History Surgical Site Infection Following: None - Disposition Have Diagnosis and Disposition been Completed?: Yes Diagnosis: Anemia Disposition: HOME/ ROUTINE Disposition Time: 21:30 Patient Plan: Discharge Condition: STABLE Referrals: Mart Knox MD [Primary Care Provider] - Follow up with primary Forms: [employer] (Dominican)
[2018-04-07 21:58] LABS: ALB/GLOB RATIO 0.9 (1.1-1.8); ALBUMIN 2.5 g/dL (3.0-4.8); CALCIUM 7.7 mg/dL (8.4-10.5)
[2018-04-08 00:08] VITALS: BP 108/70; PULSE 100; O2SAT 98
[2018-04-08 00:10] VITALS: RESP 100
--- NOTE | 2018-04-08 13:09 | CON ---
DATE: 04/07/2018 HISTORY OF PRESENT ILLNESS: The patient is a 67-year-old male who has been in [facility], was sent through the emergency room for evaluation of the decreasing hemoglobin of 7.7. The patient has been complaining of weakness and shortness of breath. The patient is undergoing dialysis, last dialysis was today. The patient came to the emergency room by the ambulance. REVIEW OF SYSTEMS: A 13-system review was done, pertinent positive and negative dictated above. CODE STATUS: Full code. LIVING WILL ADVANCE DIRECTIVE: None. ALLERGIES: NONE. Height is 5 feet 9 inches. Weight is 113 pounds. BMI is 17. MEDICATIONS: The patient's medications are as per the [facility] list of medication. SOCIAL HISTORY: Positive for former smoking, negative for alcohol and substance abuse. The patient is seen in stretcher #10 in the emergency room. 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; history of anemia, transfusion-dependent anemia; history of ; history of leukopenia and anemia; history of bandemia; history of uncontrolled insulin-requiring diabetes mellitus with hemoglobin A1c of 10.4; history of pancytopenia; history of protein malnutrition and hypoalbuminemia; history of bilateral pleural effusion and congestive heart failure and pulmonary vascular congestion; history of chronic kidney disease stage IV of the transplanted kidney with oliguric renal failure secondary to acute tubular necrosis; history of abdominal aortic aneurysm; history of tachypnea and hypoxemia; history of increased anion gap metabolic acidosis and lactic acidosis; history of possible diastolic congestive heart failure with elevated BNP; history of secondary hyperparathyroidism with elevated PTH level of greater than 460; history of immunosuppressed status secondary to renal transplant treatment; 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; history of [id number] prosthetic aortic valve stenosis; history of deconditioning; history of bilateral lower extremity venous stasis; history of constipation; history of severe symptomatic hypotension and severe symptomatic anemia with symptoms of fatigue, tiredness, shortness of breath and dyspnea on exertion; history of severe bioprosthetic aortic valve stenosis with poorly visualized bioprosthetic aortic valve; history of grade 1 abnormal relaxation pattern; history of moderately thickened mitral valve; history of moderate bilateral pleural effusion; history of left lower lobe pneumonia with elevated right hemidiaphragm; history of gait dysfunction; history of mycotic elongated toenails status post debridement; history of polycystic kidney disease; right upper lobe pneumonia; hyponatremia; lactic acidosis; history of aortic valve replacement with proximal aortic valve graft; history of descending aortic aneurysm; history of dilated esophagus; history of multiple hepatic cysts and masses; history of 8.3-cm infrarenal abdominal aortic aneurysm and history of chronic infrarenal abdominal aortic dissection at and below the level of the renal artery; history of diverticulosis of the colon; history of hydronephrosis of the transplanted kidney; history of coronary ischemic changes; history of old inferior wall myocardial infarction; history of hypovolemic hypotensive shock; history of severe symptomatic hypotension and severe symptomatic anemia; history of non-hemolyzed hyperkalemia. The patient's past medical history is significant for history of cardiac catheterization done on 03/07/2018; history of severe stenotic aortic valve prosthesis; history of peak aortic valve gradient of 93 mmHg; history of transplanted aortic valve stenosis of the prosthetic aortic valve with peak gradient of 93 mmHg, history of mild pulmonary hypertension, history of large abdominal aortic aneurysm, history of end-stage renal disease with failure of the transplanted kidney, history of the patient being transferred to [facility] for possible transcatheter aortic valve replacement, which was not done. The patient's past medical history is significant for diastolic congestive heart failure, history of cachexia, history of weight loss, history of bilateral inguinal hernia, history of former smoking, family history of positive polycystic kidney disease. Past medical history is significant for chronic kidney disease stage V, history of severe anemia, history of renal transplant, history of hydronephrotic transplanted kidney, history of right lower lobe pneumonia, history of metabolic acidosis. The patient's past medical history is significant for history of thoracic abdominal aortic aneurysm, history of chronic gastrointestinal bleeding secondary to arteriovenous malformation, history of iron-deficiency anemia, history of questionable poor compliance, history of hypocalcemia. The patient's [facility] medications were noted. The patient is seen in stretcher #10 in the emergency room. PHYSICAL EXAMINATION: GENERAL: The patient is lying in the bed. The patient is chronically ill appearing, cachectic-appearing male in no apparent distress. VITAL SIGNS: T-max 98.1, heart rate 91, blood pressure 109/73, respiration 22, O2 sat 95% on 2 liters. The patient is seen lying in the stretcher. HEAD: Normocephalic and atraumatic. HEENT: Shows pinkish pale conjunctivae. Anicteric sclerae. Positive facial muscle wasting noted. Positive cachexia noted. NECK: No neck rigidity. Soft carotid bruit. CHEST: Kyphosis. Questionable decreased breath sound at the bases. Occasional rhonchi, upper lung field anteriorly. CARDIOVASCULAR: S1, S2, regular rhythm. Positive systolic murmur, left sternal border, right second intercostal space, left second intercostal space. ABDOMEN: Soft. Positive bowel sound, positive midline abdominal pulsation noted. Positive median sternotomy surgical scar noted. EXTREMITIES: Positive left upper extremity AV fistula noted. Lower extremity shows positive trace swelling of the lower extremity and positive swelling of the ankle noted. MUSCULOSKELETAL: Examination shows a body mass index of 16.7. NEUROLOGICAL: The patient is alert, awake, responsive, is able to move upper and lower extremity without assistance. Gait examination is not tested. MUSCULOSKELETAL: Shows decreased muscle mass. DIAGNOSTICS AND LABORATORY DATA: WBC 3.4, hemoglobin/hematocrit 8.9 and 31.1, platelets 101. Granulocytes are within normal limits. PT/PTT 12.7 and 29.3. Sodium 136, potassium 3.6, chloride 98, CO2 of 30, anion gap 12, glucose 241, calcium 7.7, AST 61, alk phos 164, total protein 5.4, albumin 2.5. The patient was seen and evaluated in the emergency room by the physician psychology assistant Happiness since the patient's repeat lab work appears to be stable and the patient's hemoglobin is much better than what was done in the emergency room. IMPRESSION: 1. Anemia with decreasing hemoglobin/hematocrit. 2. Anemia of chronic disease. 3. End-stage renal disease, hemodialysis dependent of the transplanted allograft renal failure. 4. Leukopenia. 5. Thrombocytopenia. 6. Pancytopenia. 7. Hyperglycemia. 8. Mild protein malnutrition and hypoalbuminemia. 9. Hypocalcemia. 10. History of former smoking. 11. History of bilateral lower extremity venous stasis. 12. History of [id number] prosthetic aortic valve stenosis and history of aortic valve replacement. 13. History of abdominal aortic aneurysm. 14. History of left upper extremity arteriovenous fistula. 15. Transfusion-dependent anemia. 16. Insulin-requiring diabetes mellitus. 17. Gait dysfunction. 18. Anorexia. 19. Bilateral inguinal hernia surgery. 20. Cachexia. PLAN: At this time since the patient's repeat lab data shows improvement of the patient's hemoglobin/hematocrit to 8.9/and 31.1, the patient will be considered for discharge back to the [facility] for continuation of the patient's [facility] stay and continuation of the hemodialysis 3 times a week with continuation of the Aranesp support on hemodialysis. At present, the patient will be considered to transfer back to the [facility] under Dr. Knox's service with continuation of the hemodialysis 3 times a week and continuation of the Aranesp support during dialysis. Dictated and electronically signed, not read. Mart Knox MD
--- NOTE | 2018-04-08 16:11 | CARD ---
APPROVED REPORT Date of service: 04/07/2018 EKG Measurement Heart [id number] <Conclusion> Sinus tachycardia Possible Right ventricular hypertrophy Possible Inferior infarct, age undetermined Abnormal ECG
== END 2018-04-08 00:09 | disposition home or self-care (01) ==
LOC: ED 18:57
DX: D64.9 Anemia, unspecified (principal); I12.0 Hypertensive chronic kidney disease with stage 5 chronic kidney disease or end stage renal disease; E11.22 Type 2 diabetes mellitus with diabetic chronic kidney disease; N18.6 End stage renal disease; Z99.2 Dependence on renal dialysis; Z94.0 Kidney transplant status; Z87.891 Personal history of nicotine dependence

== ENCOUNTER 2018-09-03 14:53 | Inpatient (IN) | payer MEDICARE, OTHER ==
[2018-09-03 15:25] VITALS: BMI 13.6
[2018-09-03] MEDS ORDERED: Sodium Chloride 0.9% 250 ML IV SCH ×2 (15:45→20:30)
--- NOTE | 2018-09-03 15:52 | ED PDOC ---
Arrival/HPI - General Time Seen by Provider: 09/03/18 14:55 Historian: Patient - History of Present Illness Narrative History of Present Illness (Text): 09/03/18 15:39 67 year old male, whose past medical history includes anemia, hypertension, ESRD on dialysis (MWF), aortic aneurysm 7cm (last evaluated vascularly 2 weeks ago), and on tacrolimus due to kidney transplant, who presents to the emergency department complaining of diarrhea for the past 5 days. Patient notes dark urine, which he was worried was blood, since yesterday which prompted his visit to the emergency department. He reports secondary decreased PO intake and gener alized weakness. Of note, patient missed dialysis on Saturday because he was afraid of having a bowel accident. However he went to dialysis today and they noticed he was hypotensive so they sent him to ED. He denies any antibiotic use, recent travel, chest pain, abdominal pain, flank pain, dysuria, fever, vomiting, or any other complaint. 09/03/18 19:38 Time/Duration: < week (5 days) Symptom Onset: Gradual Symptom Course: Unchanged Activities at Onset: Light Context: Home Past Medical History - Provider Review Nursing Documentation Reviewed: Yes - Infectious Disease Hx of Infectious Diseases: None - Cardiac Hx Cardiac Disorders: Yes (CAD) Hx Hypertension: Yes Hx Peripheral Edema: Yes (+1 pitting ble) Other/Comment: Aortic Valve Replacement at [facility], aortic abdominal aneurysm unable to do sx at present time - Pulmonary Hx Respiratory Disorders: No - Neurological Hx Neurological Disorder: No - HEENT Hx HEENT Disorder: Yes (wears glasses) - Renal Hx Renal Disorder: Yes (stage iv) Hx Dialysis: Yes (left arm fistula) Other/Comment: Kidney transplant at [facility] in [facility], [place], last dialysis oct 08 2006, hypertensive chronic kidney disease - Endocrine/Metabolic Hx Endocrine Disorders: Yes Hx Diabetes Mellitus Type 2: Yes - Hematological/Oncological Hx Blood Disorders: Yes (blood transfusions most recent 3 wks ago) Hx Anemia: Yes (iron deficiency) Other/Comment: dx with anemia 2 yrs ago unable to get a colonoscopy due to aaa, may try new procedure in [place] as per pt, receives iron infusions from pt's dr yordy pope in [place] - Integumentary Hx Dermatological Disorder: Yes Other/Comment: multiple skin discolorations ble, pt refusing for me to removd his anti embolism stockings/shoes and socks to assess feet, pt stated "I'm embarrassed. I plan to see foot dr within a few weeks but I have had other health problems." pt stated. - Musculoskeletal/Rheumatological Hx Musculoskeletal Disorders: Yes Hx Unsteady Gait: Yes - Gastrointestinal Hx Gastrointestinal Disorders: Yes (poor appetite weight loss) Other/Comment: AAA, chronic hiccups - Genitourinary/Gynecological Hx Genitourinary Disorders: Yes Other/Comment: bilateral inguinal hernias (repaired) - Psychiatric Hx Psychophysiologic Disorder: No Hx Substance Use: No - Surgical History Hx Kidney Transplant: Yes (last hd oct 08 2006) Other/Comment: Aortic valve replacement, left forearm fistula not is use since october 08, 2006 - Anesthesia Hx Anesthesia: Yes Hx Anesthesia Reactions: No Hx Malignant Hyperthermia: No Family/Social History - Physician Review Nursing Documentation Reviewed: Yes Family/Social History: No Known Family HX Smoking Status: Former Smoker Hx Alcohol Use: No Hx Substance Use: No Allergies/Home Meds Allergies/Adverse Reactions: Allergies No Known Allergies Allergy (Verified 04/07/18 19:37) Home Medications: Home Meds Medication Instructions Recorded Confirmed Cyproheptadine [Periactin] 4 mg PO BID 03/03/18 03/03/18 amLODIPine [Norvasc] 10 mg PO BID 03/03/18 03/03/18 Review of Systems - Review of Systems Constitutional: Other (generalized fatigue). absent: Fevers Respiratory: absent: SOB, Cough, Sputum, Wheezing Cardiovascular: absent: Chest Pain Gastrointestinal: Diarrhea. absent: Abdominal Pain, Constipation, Nausea, Vomiting Genitourinary Male: Hematuria. absent: Dysuria, Frequency, Urinary Output Changes Musculoskeletal: absent: Back Pain, Neck Pain Neurological: absent: Headache, Dizziness, Focal Weakness, Gait Changes Physical Exam Vital Signs Reviewed: Yes Vital Signs Pulse Resp BP Pulse Ox 09/03/18 15:16 68 18 96/58 L 100 Temperature: Afebrile Blood Pressure: Hypotensive Pulse: Regular Respiratory Rate: Normal Appearance: Positive for: Non-Toxic, Comfortable, Cachectic Pain Distress: None Mental Status: Positive for: Alert and Oriented X 3 - Systems Exam Head: Present: Atraumatic, Normocephalic Pupils: Present: PERRL Extroacular Muscles: Present: EOMI Conjunctiva: Present: Injected (to the left eye (patient reports he was rubbing eye)) Mouth: Present: Moist Mucous Membranes Neck: Present: Normal Range of Motion Respiratory/Chest: Present: Clear to Auscultation, Good Air Exchange. No: Respiratory Distress, Accessory Muscle Use Cardiovascular: Present: Regular Rate and Rhythm, Normal S1, S2. No: Murmurs Abdomen: No: Tenderness, Distention, Peritoneal Signs Back: Present: Normal Inspection Upper Extremity: Present: Other (left AV fistula ). No: Cyanosis, Edema Lower Extremity: Present: Normal Inspection. No: Edema Neurological: Present: GCS=15, CN II-XII Intact, Speech Normal Skin: Present: Warm, Dry, Normal Color. No: Rashes Psychiatric: Present: Alert, Oriented x 3, Normal Insight, Normal Concentration Medical Decision Making ED Course and Treatment: 09/03/18 15:56 Impression: 67 year old male who presents to the ed complaining of diarrhea and "darkened urine" Plan: -- Abdomen and Pelvis CT -- LAbs -- IV fluids -- Cdiff toxin and antigen -- Ova and parasite -- Urine culture -- Reassess and disposition Prior Visits: Notes and results from previous visits were reviewed. Progress Notes: 09/03/18 18:42 Radiologist called and reports that preliminary read shows hydronephorsi and thick walled bladder, uti vs neoplasm on preliminary read and stable AAA. Concerned about bandemia and that patient missed dialysis. BP improved after IVF. Accepted by Dr. Rader for Dr. Knox for dialysis tomorrow and antibiotics and further evaluation of hematuria 09/03/18 18:[address] reviewed by radiology, shows: Noncontrast CT examination of the abdomen and pelvis is obtained. Images reconstructed in the coronal and sagittal planes. Study was technically limited due to paucity of body fat as well as absence of intravenous contrast. There is no gross consolidation or atelectasis at the lung bases. Small left pleural effusion. Sternotomy wires present. Cardiac valve replacement noted. In the abdomen and pelvis there is a moderate to large amount of ascites. Liver and spleen appear grossly within normal limits in size and attenuation. Gallbladder is not well visualized. Pancreas is not well visualized. There is extensive polycystic kidney disease. Right renal transplant is seen at the right iliac fossa. There is advanced atherosclerotic changes with a large aneurysm involving the abdominal aorta primarily at the distal abdominal aorta where the diameter is approximately 9 x 8 cm in diameter. There is displacement of the intima and a dissecting aneurysm of the distal abdominal aorta is suspected. The aneurysm appears to extend to the region of the common iliac arteries which appeared tortuous and atherosclerotic. Bladder is incompletely distended and there is bladder wall thickening. There is hypertrophic and degenerative changes lower lumbar spine with disc space narrowing L4-L5 level. Impression: Technically limited study. Small left pleural effusion. Sternotomy wires. Cardiac valve replacement present. Large amount of ascites abdomen and pelvis. Severe polycystic kidney disease. Right renal transplant. Advanced atherosclerotic changes with extremely large aneurysm with dissection suspected at the distal abdominal aorta. Maximum diameter of the aneurysm is approximately 9 x 8 cm. Incompletely distended b ladder with bladder wall thickening. Close clinical correlation is advised. Electronically signed on Sep 03, 2018 6:29:16 PM EDT by: Patric Cherry M.D., Certified by [facility], Diagnostic Radiology 09/03/18 19:40 - Lab Interpretations I have reviewed the lab results: Yes - RAD Interpretation [place] Person: Radiologist - Medication Orders Current Medication Orders: Sodium Chloride (Sodium Chloride 0.9%) 250 mls @ 50 mls/hr IV .Q5H [facility] - Scribe Statement The provider has reviewed the documentation as recorded by the Scribe Pina Nicole All medical record entries made by the Scribe were at my direction and personally dictated by me. I have reviewed the chart and agree that the record accurately reflects my personal performance of the history, physical exam, medical decision making, and the department course for this patient. I have also personally directed, reviewed, and agree with the discharge instructions and disposition. Disposition/Present on Arrival - Present on Arrival Any Indicators Present on Arrival: No History of DVT/PE: No History of Uncontrolled Diabetes: No Urinary Catheter: No History of Decub. Ulcer: No History Surgical Site Infection Following: None - Disposition Have Diagnosis and Disposition been Completed?: Yes Diagnosis: UTI (urinary tract infection), ESRD (end stage renal disease) Disposition: HOSPITALIZED Disposition Time: 18:48 Patient Plan: Observation Patient Problems: Current Active Problems Problem Status Onset ESRD (end stage renal disease) Acute UTI (urinary tract infection) Acute Condition: FAIR
[2018-09-03 16:47] LABS: BASO # 0.01 K/mm3 (0.0-2.0); BASO % 0.1 % (0.0-3.0); HEMOGLOBIN 9.7 g/dL (14.0-18.0); LYMPH # 0.6 (1.2-3.4); LYMPH % 5.8 % (22.0-35.0); MEAN CELL VOLUME 73.6 fl (80.0-105.0); MEAN CORPUSCULAR HEMOGLOBIN 21.9 pg (25.0-35.0); MEAN CORPUSCULAR HGB CONC 29.8 g/dl (31.0-37.0); MONO # 0.2 (0.1-0.6); PLATELET COUNT 87 10^3/uL (120.0-450.0); RBC 4.43 10^6/uL (3.5-6.1); RED CELL DISTRIBUTION WIDTH 18.9 % (11.5-14.5)
[2018-09-03 16:59] LABS: ALB/GLOB RATIO 0.6 (1.1-1.8); ALBUMIN 2.3 g/dL (3.0-4.8); AST/SGOT 20 U/L (17-59); BLOOD UREA NITROGEN 52 mg/dL (7-21); CALCIUM 8.2 mg/dL (8.4-10.5); GFR NON-AFRICAN AMERICAN 9; LIPASE 10 U/L (23-300)
[2018-09-03 17:04] LABS: ALT/SGPT < 6 U/L (7-56)
[2018-09-03 17:51] LABS: BAND 1 % (0-2); HYPOCHROMIA 1+; LYMPHOCYTE 2 % (22.0-35.0); MONOCYTE 2 % (1.0-6.0); NEUTROPHIL 95 % (50.0-70.0); PLATELET ESTIMATE LOW (NORMAL)
[2018-09-03 17:52] LABS: ANISOCYTOSIS SLIGHT; MICROCYTOSIS 2+; OVALOCYTES SLIGHT; POIKILOCYTOSIS 1+
[2018-09-03 18:36] LABS: URINE BILIRUBIN NEGATIVE (NEGATIVE); URINE BLOOD LARGE (NEGATIVE); URINE GLUCOSE (UA) NEGATIVE (NEGATIVE); URINE LEUKOCYTE ESTERASE TRACE Leu/uL (NEGATIVE); URINE PROTEIN 100 mg/dL (<30 mg/dL); URINE UROBILINOGEN 0.2 E.U./dL (<1 E.U./dL)
[2018-09-03 18:37] LABS: URINE APPEARANCE TURBID (CLEAR); URINE COLOR YELLOW (YELLOW)
[2018-09-03] MEDS ORDERED: cefTRIAXone 1 gm 1 GM/100 ML BAG IVPB STA (18:41)
--- NOTE | 2018-09-03 18:43 | CARD ---
APPROVED REPORT Date of service: 09/03/2018 EKG Measurement Heart [id number] ID [id number] <Conclusion> Normal sinus rhythm Possible Left atrial enlargement Rightward axis Inferior infarct, age undetermined ST & T wave abnormality, consider anterior ischemia Prolonged QT Abnormal ECG
[2018-09-03 18:46] LABS: URINE BACTERIA MANY /hpf; URINE RBC TNTC /hpf (0-2); URINE WBC TNTC /hpf (0-6)
--- NOTE | 2018-09-03 20:49 | CP.PCM.HP ---
History of Present Illness - History of Present Illness History of Present Illness: 67 year old male with history of hypertension, ESRD on HD, AAA, and right kidney transplant was sent to the Emergency Room from dialysis center for hypotension. He also complains of diarrhea for 5 days. He states that his urine has been dark. He denies fever, chills, abdominal pain or flank pain. Present on Admission - Present on Admission Any Indicators Present on Admission: No History of DVT/PE: No History of Uncontrolled Diabetes: No Urinary Catheter: No Decubitus Ulcer Present: No Review of Systems - Constitutional Constitutional: absent: Chills, Fever - Cardiovascular Cardiovascular: absent: Chest Pain, Diaphoresis, Dyspnea - Respiratory Respiratory: absent: Cough, Dyspnea - Gastrointestinal Gastrointestinal: As Per HPI - Genitourinary Genitourinary: As Per HPI Past Patient History - Infectious Disease Hx of Infectious Diseases: None - Past Medical History & Family History Past Medical History?: Yes - Past Social History Smoking Status: Former Smoker - CARDIAC Hx Cardiac Disorders: Yes (CAD) Hx Hypertension: Yes Hx Peripheral Edema: Yes (+1 pitting ble) Other/Comment: Aortic Valve Replacement at [facility], aortic abdominal aneurysm unable to do sx at present time - PULMONARY Hx Respiratory Disorders: No - NEUROLOGICAL Hx Neurological Disorder: No - HEENT Hx HEENT Problems: Yes (wears glasses) - RENAL Hx Chronic Kidney Disease: Yes (stage iv) Hx Dialysis: Yes (left arm fistula) Other/Comment: Kidney transplant at [facility] in [facility], last dialysis oct 08 2006, hypertensive chronic kidney disease - ENDOCRINE/METABOLIC Hx Endocrine Disorders: Yes Hx Diabetes Mellitus Type 2: Yes - HEMATOLOGICAL/ONCOLOGICAL Hx Blood Disorders: Yes Hx Anemia: Yes (iron deficiency) Other/Comment: dx with anemia 2 yrs ago unable to get a colonoscopy due to aaa, may try new procedure in [place] as per pt, receives iron infusions from pt's dr yordy pope in [place] - INTEGUMENTARY Hx Dermatological Problems: Yes Other/Comment: multiple skin discolorations ble - MUSCULOSKELETAL/RHEUMATOLOGICAL Hx Musculoskeletal Disorders: Yes Hx Unsteady Gait: Yes - GASTROINTESTINAL Hx Gastrointestinal Disorders: Yes (poor appetite weight loss) Other/Comment: AAA, chronic hiccups - GENITOURINARY/GYNECOLOGICAL Hx Genitourinary Disorders: Yes Other/Comment: bilateral inguinal hernias (repaired) - PSYCHIATRIC Hx Psychophysiologic Disorder: No Hx Substance Use: No - SURGICAL HISTORY Hx Kidney Transplant: Yes Other/Comment: Aortic valve replacement - ANESTHESIA Hx Anesthesia: Yes Hx Anesthesia Reactions: No Hx Malignant Hyperthermia: No Meds Allergies/Adverse Reactions: Allergies Allergy/AdvReac Type Severity Reaction Status Date / Time No Known Allergies Allergy Verified 04/07/18 19:37 Physical Exam - Constitutional Appears: No Acute Distress - Respiratory Exam Respiratory Exam: Clear to Auscultation Bilateral, NORMAL BREATHING PATTERN - Cardiovascular Exam Cardiovascular Exam: +S1, +S2 - GI/Abdominal Exam GI & Abdominal Exam: Soft. absent: Tenderness Results - Vital Signs Recent Vital Signs: Last Vital Signs Temp 98.1 F 09/03/18 16:50 Pulse 71 09/03/18 20:00 Resp 18 09/03/18 20:00 BP 110/60 09/03/18 20:00 Pulse Ox 100 09/03/18 20:00 - Labs Result Diagrams: 09/07/18 09:10 09/07/18 09:10 Labs: Laboratory Results - last 24 hr 09/03/18 09/03/18 09/03/18 16:30 16:30 18:24 WBC 10.0 RBC 4.43 Hgb 9.7 L Hct 32.6 L MCV 73.6 L D MCH 21.9 L MCHC 29.8 L RDW 18.9 H Plt Count 87 L Neut % (Auto) 92.1 H Lymph % (Auto) 5.8 L [place] % (Auto) 2.0 Eos % (Auto) 0.0 L Baso % (Auto) 0.1 Lymph # (Auto) 0.6 L [place] # (Auto) 0.2 Eos # (Auto) 0.0 Baso # (Auto) 0.01 Absolute Neuts (auto) 9.22 H Neutrophils % (Manual) 95 H Band Neutrophils % 1 Lymphocytes % (Manual) 2 L Monocytes % (Manual) 2 Platelet Evaluation Low Hypochromasia 1+ Poikilocytosis (manual 1+ Anisocytosis (manual) Slight Microcytosis (manual) 2+ Ovalocytes Slight Sodium 135 Potassium 3.4 L Chloride 99 Carbon Dioxide 24 Anion Gap 16 BUN 52 H Creatinine 6.4 H Est GFR ( Amer) 11 Est GFR (Non-Af Amer) 9 Random Glucose 253 H Calcium 8.2 L Phosphorus 4.4 Magnesium 2.0 Total Bilirubin 0.7 AST 20 ALT < 6 L Alkaline Phosphatase 141 H Total Protein 5.9 Albumin 2.3 L Globulin 3.6 Albumin/Globulin Ratio 0.6 L Lipase 10 L Urine Color Yellow Urine Appearance Turbid Urine pH 7.0 Ur Specific [place] 1.020 Urine Protein 100 H Urine Glucose (UA) Negative Urine Ketones Negative Urine Blood Large H Urine Nitrate Negative Urine Bilirubin Negative Urine Urobilinogen 0.2 Ur Leukocyte Esterase Trace H Urine RBC Tntc H Urine WBC Tntc H Ur Epithelial Cells 10 - 12 H Urine Bacteria Many Assessment & Plan - Assessment and Plan (Free Text) Assessment: Diarrhea UTI/Hematuria HTN ESRD on HD Anemia DM Plan: Patient with urinary tract infection and hematuria. Will consult infectious disease. One dose of IV Rocephin given in the ER. Will also consult urology for hematuria. Consult nephrology for end stage renal disease. continue anti-hypertensives with holding parameters. Stool studies ordered for diarrhea. Discussed with ER doctor, Dr. Mosley, she spoke with radiologist and AAA is stable despite preliminary report of dissection.
[2018-09-03] MEDS ORDERED: Sodium Chloride 0.9% 1,000 ML IV SCH (21:59)
[2018-09-03] MEDS: Sodium Chloride 0.9% 1,000 ML IV SCH (22:48)
[2018-09-03] MEDS ORDERED: Cefepime 1gm in NS 100ml 1 GM/100 ML BAG IVPB SCH (23:15)
--- NOTE | 2018-09-03 23:50 | CP.PCM.CON ---
History of Present Illness - History of Present Illness History of Present Illness: 67 yo M w/ pmh of htn, ADPKD, s/p renal allograft (2006), post-transplant DM, s/p aortic valve replacement, severe , unrepaired larged AAA, and ESRD on HD (MWF, at [facility], under our outpatient service), sent from HD unit to ED wi th lethargy and hypotension, nephrology being consulted for ESRD care; Patient reports having profuse diarrhea since past few days; denies any associated nausea, vomiting or abd pain; has had decreased appetite/PO intake during this period; has been having increased lethargy as well; denies any fev ers/chills or night sweats; patient has been urinating and reports brown colored urine, denies any dysuria; of note, patient missed HD session on Saturday due to diarrhea; patient came for HD today but was sent to ED when he was noted to be hypotensive and lethargic; PMH: as above; s/p renal allograft in 2006; restarted on HD in Feb 2018 after presenting with ATN sepsis; deemed ESRD in June 2018 with CrCl consistently < 10 ml/min; was transferred from [facility] to [facility] (02/2018) for evaluation of severe but no TAVR procedure was done; large AAA being followed by vascular surgery (Dr. Wilkinson) but no plans made for repair; Review of Systems - Constitutional Constitutional: As Per HPI - EENT Nose/Mouth/Throat: absent: Dysphagia - Cardiovascular Cardiovascular: absent: Chest Pain, Palpitations - Respiratory Respiratory: absent: Dyspnea - Gastrointestinal Gastrointestinal: As Per HPI - Genitourinary Genitourinary: As Per HPI - Musculoskeletal Musculoskeletal: absent: Arthralgias, Back Pain - Neurological Additional comments: has been feeling off-balance - Psychiatric Additional comments: sleeping excessively - Hematologic/Lymphatic Additional comments: profound anemia, improved Past Patient History - Infectious Disease Hx of Infectious Diseases: None - Past Medical History & Family History Past Medical History?: Yes - Past Social History Smoking Status: Former Smoker - CARDIAC Hx Cardiac Disorders: Yes (CAD) Hx Hypertension: Yes Hx Peripheral Edema: Yes (+1 pitting ble) Other/Comment: Aortic Valve Replacement at [facility], aortic abdominal aneurysm unable to do sx at present time - PULMONARY Hx Respiratory Disorders: No - NEUROLOGICAL Hx Neurological Disorder: No - HEENT Hx HEENT Problems: Yes (wears glasses) - RENAL Hx Chronic Kidney Disease: Yes (stage iv) Hx Dialysis: Yes (left arm fistula) Other/Comment: Kidney transplant at [facility] in [facility] last dialysis oct 08 2006, hypertensive chronic kidney disease - ENDOCRINE/METABOLIC Hx Endocrine Disorders: Yes Hx Diabetes Mellitus Type 2: Yes - HEMATOLOGICAL/ONCOLOGICAL Hx Blood Disorders: Yes Hx Anemia: Yes (iron deficiency) Other/Comment: dx with anemia 2 yrs ago unable to get a colonoscopy due to aaa, may try new procedure in [place] as per pt, receives iron infusions from pt's , dr scales in [place] - INTEGUMENTARY Hx Dermatological Problems: Yes Other/Comment: multiple skin discolorations ble, pt refusing for me to removd his anti embolism stockings/shoes and socks to assess feet, pt stated "I'm embarrassed. I plan to see foot dr within a few weeks but I have had other health problems." pt stated. - MUSCULOSKELETAL/RHEUMATOLOGICAL Hx Musculoskeletal Disorders: Yes Hx Unsteady Gait: Yes - GASTROINTESTINAL Hx Gastrointestinal Disorders: Yes (poor appetite weight loss) Other/Comment: AAA, chronic hiccups - GENITOURINARY/GYNECOLOGICAL Hx Genitourinary Disorders: Yes Other/Comment: bilateral inguinal hernias (repaired) - PSYCHIATRIC Hx Psychophysiologic Disorder: No Hx Substance Use: No - SURGICAL HISTORY Hx Kidney Transplant: Yes Other/Comment: Aortic valve replacement - ANESTHESIA Hx Anesthesia: Yes Hx Anesthesia Reactions: No Hx Malignant Hyperthermia: No Meds Allergies/Adverse Reactions: Allergies Allergy/AdvReac Type Severity Reaction Status Date / Time No Known Allergies Allergy Verified 04/07/18 19:37 - Medications Medications: Current Medications Amlodipine Besylate (Norvasc) 10 mg PO BID [facility] Atorvastatin Calcium (Lipitor) 10 mg PO DAILY [facility] Clonidine HCl (Catapres) 0.1 mg PO BID [facility] Cyproheptadine HCl (Periactin) 4 mg PO BID [facility] Ezetimibe (Zetia) 10 mg PO DAILY [facility] Sodium Chloride (Sodium Chloride 0.9%) 1,000 mls @ 75 mls/hr IV .[id number] [facility] Last Admin: 09/03/18 22:48 Dose: 75 mls/hr Cefepime HCl (Maxipime 1gm) 1 gm in 100 mls @ 100 mls/hr IVPB Q24H [facility]; Protocol Metoprolol Tartrate (Lopressor) 25 mg PO BID [facility] Pantoprazole Sodium (Protonix Ec Tab) 40 mg PO DAILY [facility] Prednisone (Prednisone Tab) 5 mg PO DAILY [facility] Tacrolimus (Prograf Cap) 1 mg PO QPM [facility] Tacrolimus (Prograf Cap) 1 mg PO QAM [facility] Physical Exam - Constitutional Appears: Non-toxic, No Acute Distress, Cachectic - Eye Exam Eye Exam: Periorbital swelling. absent: Scleral icterus - ENT Exam Additional comments: dry tongue - Neck Exam Neck exam: Negative for: Lymphadenopathy - Respiratory Exam Respiratory Exam: Clear to Auscultation Bilateral. absent: Respiratory Distress - Cardiovascular Exam Cardiovascular Exam: RRR, Systolic Murmur. absent: Gallop, JVD, Rubs - GI/Abdominal Exam GI & Abdominal Exam: Hyperactive Bowel Sounds, Pulsatile Mass, Soft. absent: Distended, Tenderness - Exam Exam: absent: Bladder Distension Additional comments: no CVA tenderness - Extremities Exam Additional comments: 1-2+ b/l ankle edema; - Back Exam Back exam: NORMAL INSPECTION. absent: CVA tenderness (L), CVA tenderness (R) - Neurological Exam Neurological exam: Alert, Oriented x3 - Psychiatric Exam Psychiatric exam: Normal Affect, Normal Mood - Skin Skin Exam: Warm Additional comments: no cyanosis Results - Vital Signs Recent Vital Signs: Last Vital Signs Temp 98.2 F 09/03/18 21:22 Pulse 71 09/03/18 20:00 Resp 18 09/03/18 20:00 BP 110/60 09/03/18 20:00 Pulse Ox 100 09/03/18 20:00 - Labs Result Diagrams: 09/04/18 06:30 09/04/18 06:30 Labs: Laboratory Results - last 24 hr 09/03/18 09/03/18 09/03/18 16:30 16:30 18:24 WBC 10.0 RBC 4.43 Hgb 9.7 L Hct 32.6 L MCV 73.6 L D MCH 21.9 L MCHC 29.8 L RDW 18.9 H Plt Count 87 L Neut % (Auto) 92.1 H Lymph % (Auto) 5.8 L [place] % (Auto) 2.0 Eos % (Auto) 0.0 L Baso % (Auto) 0.1 Lymph # (Auto) 0.6 L [place] # (Auto) 0.2 Eos # (Auto) 0.0 Baso # (Auto) 0.01 Absolute Neuts (auto) 9.22 H Neutrophils % (Manual) 95 H Band Neutrophils % 1 Lymphocytes % (Manual) 2 L Monocytes % (Manual) 2 Platelet Evaluation Low Hypochromasia 1+ Poikilocytosis (manual 1+ Anisocytosis (manual) Slight Microcytosis (manual) 2+ Ovalocytes Slight Sodium 135 Potassium 3.4 L Chloride 99 Carbon Dioxide 24 Anion Gap 16 BUN 52 H Creatinine 6.4 H Est GFR ( Amer) 11 Est GFR (Non-Af Amer) 9 Random Glucose 253 H Calcium 8.2 L Phosphorus 4.4 Magnesium 2.0 Total Bilirubin 0.7 AST 20 ALT < 6 L Alkaline Phosphatase 141 H Total Protein 5.9 Albumin 2.3 L Globulin 3.6 Albumin/Globulin Ratio 0.6 L Lipase 10 L Urine Color Yellow Urine Appearance Turbid Urine pH 7.0 Ur Specific [place] 1.020 Urine Protein 100 H Urine Glucose (UA) Negative Urine Ketones Negative Urine Blood Large H Urine Nitrate Negative Urine Bilirubin Negative Urine Urobilinogen 0.2 Ur Leukocyte Esterase Trace H Urine RBC Tntc H Urine WBC Tntc H Ur Epithelial Cells 10 - 12 H Urine Bacteria Many - Imaging and Cardiology Chest x-ray Status: Image reviewed by me Additional comment: lungs clear Assessment & Plan (1) ESRD (end stage renal disease) Assessment and Plan: Mild hypokalemia in the setting of diarrhea; no evidence of volume overload, a ctually volume depleted; has significant residual renal function at baseline and current serum creatinine higher than baseline; no urgency to dialyze this evening despite having missed last 2 HD sessions; -Next HD for tomorrow mainly for clearance; Status: Chronic (2) Diarrhea Assessment and Plan: Recurrent issue; currently with volume depletion and BP much lower than usual; -needs GI followup; -keeping on IVF w/ NS at 75 cc/hr; Status: Acute (3) Failure to thrive Assessment and Plan: Worsening hypoalbuinemia noted over past 1+ month on outpatient labs; suspicion for underlying malignancy; colonosocopy was being considered previously in the setting of persistent anemia, but not done due to high risk from AAA; -recommend pursuing malignancy workup (GI and ); Status: Acute (4) HTN (hypertension) Assessment and Plan: Actually hypotensive on presentation; BP meds had already been cut down significantly (only on clonidine 0.1 mg bid and metoprolol 25 mg bid); will hold clonidine for now, giving IVF as above; Status: Acute (5) UTI (urinary tract infection) Assessment and Plan: No overt symptoms but UA is suggestive; given dose of ceftriaxone, recommend to continue pending culture; no renal dose adjustment needed; Status: Acute (6) Anemia Assessment and Plan: Actually much improved after starting very high doses of erythropoietin stimulating agent as outpatient; hgb again dropping after lowering dose, will continue per protocol; Status: Chronic (7) Immunosuppression Assessment and Plan: Has been cut down after deeming patient ESRD; MMF stopped completely; tacrolimus in process of being tapered down (now at 1 mg q12h), especially with concern for underlying malignancy, will continue the same along with prednisone 5 mg daily; Status: Acute (8) AAA (abdominal aortic aneurysm) Assessment and Plan: Last saw vasc surgery for f/u earlier this month; no new plans per patient; previous note from last fall indicated need for open procedure but there was concern with patient's frailty and inability to tolerate any such procedure; Status: Chronic (9) Renal transplant, status post Assessment and Plan: Still with significant residual renal function of allograft recently; plan was to keep on some degree of immunosuppression to preserve this residual function; however, now tapering off all immunosuppression gradually due to concern for some underlying malignancy; continue tacrolimus as above; Status: Chronic
[2018-09-04 07:24] LABS: BASO # 0.01 K/mm3 (0.0-2.0); BASO % 0.1 % (0.0-3.0); HEMOGLOBIN 10.9 g/dL (14.0-18.0); LYMPH # 0.9 (1.2-3.4); LYMPH % 8.5 % (22.0-35.0); MEAN CORPUSCULAR HEMOGLOBIN 21.9 pg (25.0-35.0); MEAN CORPUSCULAR HGB CONC 32.5 g/dl (31.0-37.0); MONO # 0.4 (0.1-0.6); MONO % 3.4 % (1.0-6.0); PLATELET COUNT 86 10^3/uL (120.0-450.0); RBC 4.98 10^6/uL (3.5-6.1); RED CELL DISTRIBUTION WIDTH 19.6 % (11.5-14.5); WHITE BLOOD COUNT 10.4 10^3/uL (4.5-11.0)
[2018-09-04 08:00] LABS: CALCIUM 7.3 mg/dL (8.4-10.5)
--- NOTE | 2018-09-04 08:17 | RAD ---
Date of service: 09/03/2018 HISTORY: missed dialysis COMPARISON: 03/10/2018 TECHNIQUE: 1 view obtained. FINDINGS: LUNGS: No active pulmonary disease. PLEURA: No significant pleural effusion identified, no pneumothorax apparent. CARDIOVASCULAR: No aortic atherosclerotic calcification present. Normal cardiac size. No pulmonary vascular congestion. OSSEOUS STRUCTURES: Sternal wires VISUALIZED UPPER ABDOMEN: Normal. OTHER FINDINGS: None. IMPRESSION: No active disease.
--- NOTE | 2018-09-04 08:30 | CT ---
Date of service: 09/03/2018 PROCEDURE: CT Abdomen and Pelvis without intravenous contrast HISTORY: hematuria, flank pain, hx AAA, esrd on hd COMPARISON: 03/03/2018 TECHNIQUE: Technique. Technically limited exam. Contrast dose: Radiation dose: Total exam DLP = 214.72 mGy-cm. This CT exam was performed using one or more of the following dose reduction techniques: Automated exposure control, adjustment of the mA and/or kV according to patient size, and/or use of iterative reconstruction technique. FINDINGS: LOWER THORAX: Small left pleural effusion. Sternotomy wires. LIVER: Unremarkable. No gross lesion or ductal dilatation. GALLBLADDER AND BILE DUCTS: Unremarkable. PANCREAS: Unremarkable. No gross lesion or ductal dilatation. SPLEEN: Unremarkable. ADRENALS: Unremarkable. No mass. KIDNEYS AND URETERS: Severe bilateral polycystic kidney disease. Evidence of right lower quadrant renal transplant. VASCULATURE: Extensive atherosclerosis with severe aneurysmal dilatation of the distal abdominal aorta measuring 9 x 8 centimeters with a dissection suspected distally. BOWEL: Unremarkable. No obstruction. No gross mural thickening. APPENDIX: Unremarkable. Normal appendix. PERITONEUM: Unremarkable. No free fluid. No free air. LYMPH NODES: Unremarkable. No enlarged lymph nodes. BLADDER: Unremarkable. REPRODUCTIVE: Unremarkable. BONES: No acute fracture. OTHER FINDINGS: None. IMPRESSION: Extensive atherosclerosis with severe aneurysmal dilatation of the distal abdominal aorta measuring 9 x 8 centimeters with a dissection suspected distally. Severe bilateral polycystic kidney disease. Evidence of right lower quadrant renal transplant.
--- NOTE | 2018-09-04 08:35 | CP.PCM.PN ---
Subjective - Date & Time of Evaluation Date of Evaluation: 09/04/18 Time of Evaluation: 08:00 - Subjective Subjective: (covering for Dr. Knox) Patient is seen this morning. His left eye is swollen. He says that he rubbed it with a paper towel. Patient's blood sugar is also elevated this morning. Objective - Vital Signs/Intake and Output Vital Signs (last 24 hours): Temp Pulse Resp BP Pulse Ox 97.4 F L 77 18 101/68 97 09/04/18 06:00 09/04/18 06:00 09/04/18 06:00 09/04/18 06:00 09/04/18 06:00 Intake and Output: 09/04/18 09/04/18 06:59 18:59 Intake Total 360 Output Total 0 Balance 360 - Medications Medications: Current Medications Amlodipine Besylate (Norvasc) 10 mg PO BID [facility] Atorvastatin Calcium (Lipitor) 10 mg PO DAILY [facility] Clonidine HCl (Catapres) 0.1 mg PO BID [facility] Cyproheptadine HCl (Periactin) 4 mg PO BID [facility] Ezetimibe (Zetia) 10 mg PO DAILY [facility] Sodium Chloride (Sodium Chloride 0.9%) 1,000 mls @ 75 mls/hr IV .[id number] [facility] Last Admin: 09/03/18 22:48 Dose: 75 mls/hr Cefepime HCl (Maxipime 1gm) 1 gm in 100 mls @ 100 mls/hr IVPB Q24H [facility]; Protocol Last Admin: 09/04/18 00:54 Dose: 100 mls/hr Insulin Human Regular (Humulin R Low) 0 units SC ACHS [facility]; Protocol Metoprolol Tartrate (Lopressor) 25 mg PO BID [facility] Pantoprazole Sodium (Protonix Ec Tab) 40 mg PO DAILY [facility] Prednisone (Prednisone Tab) 5 mg PO DAILY [facility] Tacrolimus (Prograf Cap) 1 mg PO QPM [facility] Tacrolimus (Prograf Cap) 1 mg PO QAM [facility] - Labs Labs: 09/04/18 06:30 09/04/18 06:30 - Constitutional Appears: No Acute Distress - Head Exam Head Exam: ATRAUMATIC, NORMOCEPHALIC - Respiratory Exam Respiratory Exam: Clear to Ausculation Bilateral, NORMAL BREATHING PATTERN - Cardiovascular Exam Cardiovascular Exam: REGULAR RHYTHM, +S1, +S2 - GI/Abdominal Exam GI & Abdominal Exam: Soft, Normal Bowel Sounds. absent: Tenderness - Extremities Exam Extremities Exam: Normal Inspection - Neurological Exam Neurological Exam: Alert, Awake, Oriented x3 Assessment and Plan - Assessment and Plan (Free Text) Assessment: Diarrhea Hematuria/UTI Hypotension Anemia ESRD on HD AAA Right kidney transplant Plan: Patient says diarrhea is improving. We will consult Dr. Bryan for gastroenterology for the diarrhea. Nephrology consult appreciated. Patient's medications have been adjusted as doses of antihypertensives were reduced as outpatient due to hypotension. Awaiting results of stool studies. Urology consulted for hematuria. Infectious disease consulted for urinary tract infection. Patient has swelling of left eye due to rubbing with paper towel. We will order Tobradex for the eye. Patient's blood sugar is also elevated this morning. Patient has history of diabetes but says he was taken off medication as outpatient. We will put an order for accuchecks with insulin sliding scale coverage.
[2018-09-04] MEDS ORDERED: Insulin Regular 1 UNITS/0.01 ML ML SC ONE (08:50)
[2018-09-04 09:01] LABS: MEAN CELL VOLUME 73.5 fl (80.0-105.0)
[2018-09-04] MEDS: Pantoprazole 40 mg EC Tab PO SCH (09:02)
--- NOTE | 2018-09-04 11:44 | CP.PCM.APN ---
Subjective - Date & Time of Evaluation Date of Evaluation: 09/04/18 Time of Evaluation: 10:20 - Subjective Subjective: pt seenand examined at bedside, asked by rb o consent patietn for HD therapy a pt missed HD treatment . pt reoprts he is feeling better but weak, stats last diarrhea was yesterday, none overnight , tolerating diet with no n/v or diarrhea per pt. Review of Systems - Review of Systems All systems: reviewed and no additional remarkable complaints except - Gastrointestinal Gastrointestinal: absent: As Per HPI, Abdominal Pain, Belching, Bloating, Change in Bowel Habits, Change in Stool Character, Coffee Ground Emesis, Constipation, Cramping, Diarrhea, Dyspepsia, Dysphagia, Early Satiety, Excessive Flatus, Fecal Incontinence, Heartburn, Hematemesis, Hematochezia, Loose Stools, Melena, Nausea, Odynophagia, Temesmus, Vomiting, Other Objective - Vital Signs/Intake and Output Vital Signs (last 24 hours): Temp Pulse Resp BP Pulse Ox 97.4 F L 81 18 135/95 H 97 09/04/18 06:00 09/04/18 09:07 09/04/18 06:00 09/04/18 09:07 09/04/18 06:00 Intake and Output: 09/04/18 09/04/18 06:59 18:59 Intake Total 360 Output Total 0 Balance 360 - Medications Medications: Current Medications Amlodipine Besylate (Norvasc) 10 mg PO BID [facility] Last Admin: 09/04/18 09:07 Dose: 10 mg Atorvastatin Calcium (Lipitor) 10 mg PO DAILY [facility] Last Admin: 09/04/18 09:16 Dose: 10 mg Clonidine HCl (Catapres) 0.1 mg PO BID [facility] Cyproheptadine HCl (Periactin) 4 mg PO BID [facility] Last Admin: 09/04/18 09:01 Dose: 4 mg Ezetimibe (Zetia) 10 mg PO DAILY [facility] Last Admin: 09/04/18 09:02 Dose: 10 mg Sodium Chloride (Sodium Chloride 0.9%) 1,000 mls @ 75 mls/hr IV .[id number] [facility] Last Admin: 09/03/18 22:48 Dose: 75 mls/hr Cefepime HCl (Maxipime 1gm) 1 gm in 100 mls @ 100 mls/hr IVPB Q24H [facility]; Protocol Last Admin: 09/04/18 00:54 Dose: 100 mls/hr Insulin Human Regular (Humulin R Low) 0 units SC ACHS [facility]; Protocol Metoprolol Tartrate (Lopressor) 25 mg PO BID [facility] Last Admin: 09/04/18 09:07 Dose: 25 mg Pantoprazole Sodium (Protonix Ec Tab) 40 mg PO DAILY [facility] Last Admin: 09/04/18 09:02 Dose: 40 mg Prednisone (Prednisone Tab) 5 mg PO DAILY [facility] Last Admin: 09/04/18 09:01 Dose: 5 mg Tacrolimus (Prograf Cap) 1 mg PO QPM [facility] Tacrolimus (Prograf Cap) 1 mg PO QAM [facility] Last Admin: 09/04/18 09:02 Dose: 1 mg Tobramycin Sulfate (Tobrex 0.3% Ophth Oint) 0 appl OS BID [facility] - Labs Labs: 09/04/18 06:30 09/04/18 06:30 Assessment and Plan - Assessment and Plan (Free Text) Plan: ITS Impressions Abdomen/Pelvis CT 09/03/18 15:49 IMPRESSION: Extensive atherosclerosis with severe aneurysmal dilatation of the distal abdominal aorta measuring 9 x 8 centimeters with a dissection suspected distally. Severe bilateral polycystic kidney disease. Evidence of right lower quadrant renal transplant. Chest X-Ray 09/03/18 19:57 IMPRESSION: No active disease. 67 year old Aa male with pmh sif or AA, htn, ESRD on HD m,w,f, right kidney transplant admitted with complaint of diarrhea x 5 days and dark urine now being evaluated by nephrology and GI. spoke to Dr Wheeler : re plan of care, awaiting GI eval as well as vasc eval for large AA 9x8cm. pt awiting eval for hematuria and hydronephrosis and ID eval for UTI- pt currently on IV maxipine with pancultures pending ( BC, UC, Stool culture) pt consented for Hd and will be receiving treatment today. will continue to follow clinical course. Spoke to Dr Rader and will discuss with IDT in rounds. BPCI/TIC - BPCIA/TIC Educated pt/family on BPCIA/CIR/Med to Bed Programs: N/A Flyers given, including [facility] Beneficiary letter: N/A Pt/family verbalized understanding & agreed to program: N/A
[2018-09-04] MEDS: Insulin Reg-LOW-Coverage SC SCH ×3 (12:23→22:33)
--- NOTE | 2018-09-04 13:24 | CP.PCM.CON ---
<Elbert Obrien - Last Filed: 09/04/18 13:18> History of Present Illness - History of Present Illness History of Present Illness: Elbert Obrien D.O. PGY-3, Internal Medicine Resident, Infectious Disease Consultation Note 67-year-old -[place] male with a past medical history of polycystic kidney disease status post renal transplant in 2006, posttransplant diabetes mellitus, status post aortic valve replacement for severe aortic stenosis, large unrepaired AAA, end-stage renal disease on hemodialysis Saturday/ Saturday/Saturday who presents to the emergency department for lethargy and hypotension. Infectious disease consultation was requested for concerns of urinary tract infection. Patient was seen and examined at bedside. Patient relates the above, commenting how he was not feeling right for a couple of days and was having multiple episodes of diarrhea. [place] 6-7 sometimes as much as 5 or 6 times a day. Unsure how he could have got it. Denies any out of the ordinary food intake. States that he has concentrated urine but denies any dysuria or urinary frequency. Review of chart shows that patient had to be restarted on chemo dialysis in February 2018 as he had sepsis with ATN. Review of chart also reveals that patient's diarrhea has been a recurrent issue in the past. Review of Systems - Review of Systems All systems: reviewed and no additional remarkable complaints except (as per HPI) Past Patient History - Infectious Disease Hx of Infectious Diseases: None - Past Medical History & Family History Past Medical History?: Yes - Past Social History Smoking Status: Former Smoker - CARDIAC Hx Cardiac Disorders: Yes (CAD) Hx Hypertension: Yes Hx Peripheral Edema: Yes (+1 pitting ble) Other/Comment: Aortic Valve Replacement at [facility], aortic abdominal aneurysm unable to do sx at present time - PULMONARY Hx Respiratory Disorders: No - NEUROLOGICAL Hx Neurological Disorder: No - HEENT Hx HEENT Problems: Yes (wears glasses) - RENAL Hx Chronic Kidney Disease: Yes (stage iv) Hx Dialysis: Yes (left arm fistula) Other/Comment: Kidney transplant at [facility], last dialysis oct 08 2006, hypertensive chronic kidney disease - ENDOCRINE/METABOLIC Hx Endocrine Disorders: Yes Hx Diabetes Mellitus Type 2: Yes - HEMATOLOGICAL/ONCOLOGICAL Hx Blood Disorders: Yes Hx Anemia: Yes (iron deficiency) Other/Comment: dx with anemia 2 yrs ago unable to get a colonoscopy due to aaa, may try new procedure in [place] as per pt, receives iron infusions from pt's dr yordy pope in [place] - INTEGUMENTARY Hx Dermatological Problems: Yes Other/Comment: multiple skin discolorations ble, pt refusing for me to removd his anti embolism stockings/shoes and socks to assess feet, pt stated "I'm embarrassed. I plan to see foot dr within a few weeks but I have had other health problems." pt stated. - MUSCULOSKELETAL/RHEUMATOLOGICAL Hx Musculoskeletal Disorders: Yes Hx Unsteady Gait: Yes - GASTROINTESTINAL Hx Gastrointestinal Disorders: Yes (poor appetite weight loss) Other/Comment: AAA, chronic hiccups - GENITOURINARY/GYNECOLOGICAL Hx Genitourinary Disorders: Yes Other/Comment: bilateral inguinal hernias (repaired) - PSYCHIATRIC Hx Psychophysiologic Disorder: No Hx Substance Use: No - SURGICAL HISTORY Hx Kidney Transplant: Yes Other/Comment: Aortic valve replacement - ANESTHESIA Hx Anesthesia: Yes Hx Anesthesia Reactions: No Hx Malignant Hyperthermia: No Meds Allergies/Adverse Reactions: Allergies Allergy/AdvReac Type Severity Reaction Status Date / Time No Known Allergies Allergy Verified 04/07/18 19:37 - Medications Medications: Current Medications Amlodipine Besylate (Norvasc) 10 mg PO BID [facility] Last Admin: 09/04/18 09:07 Dose: 10 mg Atorvastatin Calcium (Lipitor) 10 mg PO DAILY [facility] Last Admin: 09/04/18 09:16 Dose: 10 mg Clonidine HCl (Catapres) 0.1 mg PO BID [facility] Cyproheptadine HCl (Periactin) 4 mg PO BID [facility] Last Admin: 09/04/18 09:01 Dose: 4 mg Ezetimibe (Zetia) 10 mg PO DAILY [facility] Last Admin: 09/04/18 09:02 Dose: 10 mg Sodium Chloride (Sodium Chloride 0.9%) 1,000 mls @ 75 mls/hr IV .[id number] [facility] Last Admin: 09/03/18 22:48 Dose: 75 mls/hr Cefepime HCl (Maxipime 1gm) 1 gm in 100 mls @ 100 mls/hr IVPB Q24H [facility]; Protocol Last Admin: 09/04/18 00:54 Dose: 100 mls/hr Insulin Human Regular (Humulin R Low) 0 units SC ACHS [facility]; Protocol Last Admin: 09/04/18 12:23 Dose: Not Given Metoprolol Tartrate (Lopressor) 25 mg PO BID [facility] Last Admin: 09/04/18 09:07 Dose: 25 mg Pantoprazole Sodium (Protonix Ec Tab) 40 mg PO DAILY [facility] Last Admin: 09/04/18 09:02 Dose: 40 mg Prednisone (Prednisone Tab) 5 mg PO DAILY [facility] Last Admin: 09/04/18 09:01 Dose: 5 mg Tacrolimus (Prograf Cap) 1 mg PO QPM [facility] Tacrolimus (Prograf Cap) 1 mg PO QAM [facility] Last Admin: 09/04/18 09:02 Dose: 1 mg Tobramycin Sulfate (Tobrex 0.3% Ophth Oint) 0 appl OS BID [facility] Physical Exam - Constitutional Appears: Cachectic, Chronically Ill - Head Exam Head Exam: ATRAUMATIC, NORMOCEPHALIC Additional comments: temporal wasting - Eye Exam Eye Exam: EOMI. absent: Scleral icterus - ENT Exam ENT Exam: Mucous Membranes Dry - Neck Exam Neck exam: Positive for: Normal Inspection - Respiratory Exam Respiratory Exam: absent: Rales, Rhonchi, Wheezes - Cardiovascular Exam Cardiovascular Exam: +S1, +S2. absent: Rubs - GI/Abdominal Exam GI & Abdominal Exam: Normal Bowel Sounds, Soft. absent: Tenderness Additional comments: palpable abdominal aneurysm - Extremities Exam Additional comments: AVF left upper extremity - Psychiatric Exam Psychiatric exam: Normal Affect, Normal Mood - Skin Skin Exam: Dry, Warm Results - Vital Signs Recent Vital Signs: Last Vital Signs Temp 97.6 F 09/04/18 08:00 Pulse 81 09/04/18 09:07 Resp 12 09/04/18 08:00 BP 135/95 H 09/04/18 09:07 Pulse Ox 98 09/04/18 08:00 - Labs Result Diagrams: 09/04/18 06:30 09/04/18 06:30 Labs: Laboratory Results - last 24 hr 09/03/18 09/03/18 09/03/18 16:30 16:30 18:24 WBC 10.0 RBC 4.43 Hgb 9.7 L Hct 32.6 L MCV 73.6 L D MCH 21.9 L MCHC 29.8 L RDW 18.9 H Plt Count 87 L Neut % (Auto) 92.1 H Lymph % (Auto) 5.8 L [place] % (Auto) 2.0 Eos % (Auto) 0.0 L Baso % (Auto) 0.1 Lymph # (Auto) 0.6 L [place] # (Auto) 0.2 Eos # (Auto) 0.0 Baso # (Auto) 0.01 Absolute Neuts (auto) 9.22 H Neutrophils % (Manual) 95 H Band Neutrophils % 1 Lymphocytes % (Manual) 2 L Monocytes % (Manual) 2 Platelet Evaluation Low Hypochromasia 1+ Poikilocytosis (manual 1+ Anisocytosis (manual) Slight Microcytosis (manual) 2+ Ovalocytes Slight Sodium 135 Potassium 3.4 L Chloride 99 Carbon Dioxide 24 Anion Gap 16 BUN 52 H Creatinine 6.4 H Est GFR ( Amer) 11 Est GFR (Non-Af Amer) 9 POC Glucose (mg/dL) Random Glucose 253 H Calcium 8.2 L Phosphorus 4.4 Magnesium 2.0 Total Bilirubin 0.7 AST 20 ALT < 6 L Alkaline Phosphatase 141 H Total Protein 5.9 Albumin 2.3 L Globulin 3.6 Albumin/Globulin Ratio 0.6 L Lipase 10 L Urine Color Yellow Urine Appearance Turbid Urine pH 7.0 Ur Specific [place] 1.020 Urine Protein 100 H Urine Glucose (UA) Negative Urine Ketones Negative Urine Blood Large H Urine Nitrate Negative Urine Bilirubin Negative Urine Urobilinogen 0.2 Ur Leukocyte Esterase Trace H Urine RBC Tntc H Urine WBC Tntc H Ur Epithelial Cells 10 - 12 H Urine Bacteria Many 09/04/18 09/04/18 09/04/18 06:30 06:30 08:10 WBC 10.4 RBC 4.98 Hgb 10.9 L Hct 33.5 L MCV 73.5 L MCH 21.9 L MCHC 32.5 RDW 19.6 H Plt Count 86 L Neut % (Auto) 88.0 H Lymph % (Auto) 8.5 L [place] % (Auto) 3.4 Eos % (Auto) 0.0 L Baso % (Auto) 0.1 Lymph # (Auto) 0.9 L [place] # (Auto) 0.4 Eos # (Auto) 0.0 Baso # (Auto) 0.01 Absolute Neuts (auto) 9.12 H Neutrophils % (Manual) Band Neutrophils % Lymphocytes % (Manual) Monocytes % (Manual) Platelet Evaluation Hypochromasia Poikilocytosis (manual Anisocytosis (manual) Microcytosis (manual) Ovalocytes Sodium 134 Potassium 4.2 Chloride 100 Carbon Dioxide 21 Anion Gap 18 BUN 61 H Creatinine 6.8 H Est GFR ( Amer) 10 Est GFR (Non-Af Amer) 8 POC Glucose (mg/dL) 406 H* Random Glucose 368 H* D Calcium 7.3 L Phosphorus Magnesium Total Bilirubin AST ALT Alkaline Phosphatase Total Protein Albumin Globulin Albumin/Globulin Ratio Lipase Urine Color Urine Appearance Urine pH Ur Specific [place] Urine Protein Urine Glucose (UA) Urine Ketones Urine Blood Urine Nitrate Urine Bilirubin Urine Urobilinogen Ur Leukocyte Esterase Urine RBC Urine WBC Ur Epithelial Cells Urine Bacteria Assessment & Plan - Assessment and Plan (Free Text) Assessment: 67-year-old -[place] male with a past medical history of polycystic kidney disease status post renal transplant in 2006, posttransplant diabetes mellitus, status post aortic valve replacement for severe aortic stenosis, large unrepaired AAA, end-stage renal disease on hemodialysis Saturday/ Saturday/Saturday who presents to the emergency department for lethargy and hypotension. Infectious disease consultation was requested for concerns of urinary tract infection. Plan: Diarrhea Suspected urinary tract infection Polycystic kidney disease status post renal transplant status post sepsis with ATN status post reinitiation of hemodialysis Saturday/Saturday/Saturday Aortic stenosis Posttransplantation diabetes mellitus Patient currently on tacrolimus for renal transplant immunosuppression which predisposes him for multiple infections GI consulted by primary team, looking forward to recommendations Nephro following patient, Lopez appreciated Chest x-ray revealed no active disease Abdominal and pelvis CT also did not show any possible infectious etiology but does have other findings including the abdominal aneurysm for which IR has been consulted Urine sample is very 30 with 10-12 epithelial cells but only trace amount of leuk esterase and no nitrate Afebrile No leukocytosis Blood cultures ordered Urine cultures ordered C. difficile ordered Open stool parasites ordered Stool culture ordered Empirically on cefepime We will follow with you Patient was seen and examined and case to be discussed at length with attending physician Thank you for the pleasure participating in the care of this interesting patient - Date & Time Date: 09/04/18 Time: 09:25 <John Suero - Last Filed: 09/04/18 23:22> Meds - Medications Medications: Current Medications Atorvastatin Calcium (Lipitor) 10 mg PO DAILY [facility] Last Admin: 09/04/18 09:16 Dose: 10 mg Clonidine HCl (Catapres) 0.1 mg PO BID [facility] Cyproheptadine HCl (Periactin) 4 mg PO BID [facility] Last Admin: 09/04/18 17:11 Dose: 4 mg Ezetimibe (Zetia) 10 mg PO DAILY [facility] Last Admin: 09/04/18 09:02 Dose: 10 mg Sodium Chloride (Sodium Chloride 0.9%) 1,000 mls @ 75 mls/hr IV .[id number] [facility] Last Admin: 09/04/18 17:12 Dose: 75 mls/hr Meropenem/Sodium Chloride (Merrem Iv 500 Mg/Ns 50 Ml) 500 mg in 50 mls @ 100 mls/hr IVPB Q12 [facility]; Protocol Stop: 09/18/18 22:01 Last Admin: 09/04/18 22:33 Dose: 100 mls/hr Insulin Human Regular (Humulin R Low) 0 units SC ACHS [facility]; Protocol Last Admin: 09/04/18 22:33 Dose: Not Given Metoprolol Tartrate (Lopressor) 25 mg PO BID [facility] Last Admin: 09/04/18 17:19 Dose: Not Given Pantoprazole Sodium (Protonix Ec Tab) 40 mg PO DAILY [facility] Last Admin: 09/04/18 09:02 Dose: 40 mg Prednisone (Prednisone Tab) 5 mg PO DAILY [facility] Last Admin: 09/04/18 09:01 Dose: 5 mg Tacrolimus (Prograf Cap) 1 mg PO QPM [facility] Last Admin: 09/04/18 17:11 Dose: 1 mg Tacrolimus (Prograf Cap) 1 mg PO QAM [facility] Last Admin: 09/04/18 09:02 Dose: 1 mg Tobramycin Sulfate (Tobrex 0.3% Ophth Oint) 0 appl OS BID [facility] Last Admin: 09/04/18 17:13 Dose: 2 unit Results - Vital Signs Recent Vital Signs: Last Vital Signs Temp 97.4 F L 09/04/18 17:42 Pulse 73 09/04/18 17:42 Resp 20 09/04/18 17:42 BP 93/60 L 09/04/18 17:42 Pulse Ox 98 09/04/18 08:00 - Labs Result Diagrams: 09/04/18 06:30 09/04/18 06:30 Labs: Laboratory Results - last 24 hr 09/04/18 09/04/18 09/04/18 06:30 06:30 08:10 WBC 10.4 RBC 4.98 Hgb 10.9 L Hct 33.5 L MCV 73.5 L MCH 21.9 L MCHC 32.5 RDW 19.6 H Plt Count 86 L Neut % (Auto) 88.0 H Lymph % (Auto) 8.5 L [place] % (Auto) 3.4 Eos % (Auto) 0.0 L Baso % (Auto) 0.1 Lymph # (Auto) 0.9 L [place] # (Auto) 0.4 Eos # (Auto) 0.0 Baso # (Auto) 0.01 Absolute Neuts (auto) 9.12 H Sodium 134 Potassium 4.2 Chloride 100 Carbon Dioxide 21 Anion Gap 18 BUN 61 H Creatinine 6.8 H Est GFR ( Amer) 10 Est GFR (Non-Af Amer) 8 POC Glucose (mg/dL) 406 H* Random Glucose 368 H* D Calcium 7.3 L Assessment & Plan - Assessment and Plan (Free Text) Plan: Infectious Diseases Attending Physician Attestation Patient seen and examined at bedside, discussed with medical coding technician. I have reviewed the HPI, ROS, personal, social, family histories, physical examination findings. I have also reviewed the pertinent labs and diagnostic imaging. I have fully participiated in the care of this patient. I agree with the above findings, assessment, plan. In addition, we have switched antibiotics to Merrem for patient with gram negative bacilli bacteremia, source not clear in this patient with ESRD on HD from polycystic kidney disease. Follow up identification and sensitivities.
[2018-09-04] MEDS: Tobramycin 0.3% OPH OINT OS SCH ×2 (15:27→17:13)
--- NOTE | 2018-09-04 17:02 | CP.PCM.PN ---
Subjective - Date & Time of Evaluation Date of Evaluation: 09/04/18 Time of Evaluation: 10:00 - Subjective Subjective: 67 yo M w/ pmh of htn, ADPKD, s/p renal allograft (2006), post-transplant DM, s/p aortic valve replacement, severe aortic stenosis, unrepaired larged AAA, and ESRD on HD (MWF, at [facility], under our outpatient service), admitted with lethargy and hypotension after having persistent diarrhea, nephrology being consulted for ESRD care; Patient seen on HD; has not had any diarrhea since presentation; not eating much; is urinating; Objective - Vital Signs/Intake and Output Vital Signs (last 24 hours): Temp Pulse Resp BP Pulse Ox 97.6 F 76 12 135/95 H 98 09/04/18 08:00 09/04/18 14:00 09/04/18 08:00 09/04/18 09:07 09/04/18 08:00 Intake and Output: 09/04/18 09/04/18 06:59 18:59 Intake Total 360 Output Total 0 Balance 360 - Medications Medications: Current Medications Atorvastatin Calcium (Lipitor) 10 mg PO DAILY [facility] Last Admin: 09/04/18 09:16 Dose: 10 mg Clonidine HCl (Catapres) 0.1 mg PO BID [facility] Cyproheptadine HCl (Periactin) 4 mg PO BID [facility] Last Admin: 09/04/18 09:01 Dose: 4 mg Ezetimibe (Zetia) 10 mg PO DAILY [facility] Last Admin: 09/04/18 09:02 Dose: 10 mg Sodium Chloride (Sodium Chloride 0.9%) 1,000 mls @ 75 mls/hr IV .[id number] [facility] Last Admin: 09/03/18 22:48 Dose: 75 mls/hr Cefepime HCl (Maxipime 1gm) 1 gm in 100 mls @ 100 mls/hr IVPB Q24H [facility]; Protocol Last Admin: 09/04/18 00:54 Dose: 100 mls/hr Insulin Human Regular (Humulin R Low) 0 units SC ACHS [facility]; Protocol Last Admin: 09/04/18 16:20 Dose: 1 unit Metoprolol Tartrate (Lopressor) 25 mg PO BID [facility] Last Admin: 09/04/18 09:07 Dose: 25 mg Pantoprazole Sodium (Protonix Ec Tab) 40 mg PO DAILY [facility] Last Admin: 09/04/18 09:02 Dose: 40 mg Prednisone (Prednisone Tab) 5 mg PO DAILY [facility] Last Admin: 09/04/18 09:01 Dose: 5 mg Tacrolimus (Prograf Cap) 1 mg PO QPM [facility] Tacrolimus (Prograf Cap) 1 mg PO QAM [facility] Last Admin: 09/04/18 09:02 Dose: 1 mg Tobramycin Sulfate (Tobrex 0.3% Ophth Oint) 0 appl OS BID [facility] Last Admin: 09/04/18 15:27 Dose: Not Given - Labs Labs: 09/04/18 06:30 09/04/18 06:30 - Constitutional Appears: Non-toxic, No Acute Distress, Cachectic - Eye Exam Eye Exam: Periorbital swelling - Respiratory Exam Respiratory Exam: Clear to Ausculation Bilateral. absent: Respiratory Distress - Cardiovascular Exam Cardiovascular Exam: RRR. absent: Gallop, Rubs - GI/Abdominal Exam GI & Abdominal Exam: Soft, Pulsatile Mass. absent: Distended, Tenderness - Extremities Exam Additional comments: b/l ankle edema - Neurological Exam Neurological Exam: Alert, Awake - Psychiatric Exam Psychiatric exam: Normal Mood. absent: Agitated - Skin Skin Exam: Warm. absent: Cyanosis Assessment and Plan (1) ESRD (end stage renal disease) Assessment & Plan: Stable electrolyte status; mildly hypotensive on HD despite net zero UF goal; dialyzing today for clearance after patient missed HD on Sat and Sat; next HD likely for Saturday (off schedule); Status: Chronic (2) Diarrhea Assessment & Plan: Resolved but etiology unclear and has been recurrent; there has long been anival picion for underlying malignancy especially with patient's failure to thrive; GI last year was considering colonoscopy due to severe anemia but deferred due to high risk associated with presence of large AAA; furthermore, during cardiac workup, patient was found to have severe aortic stenosis and was sent by cardiology (Dr. Shane) to [facility] for TAVR which apparently was never done for unclear reasons; -recommend to consult cardiology again to assess the complicated situation with presence of very large AAA and severe ; otherwise, doubtful that GI will be willing to do any needed endoscopy with such high risks; Status: Acute (3) Failure to thrive Status: Acute (4) HTN (hypertension) Assessment & Plan: Borderline hypotension; will continue to hold clonidine, continue metoprolol; will d/c further IVF for now; Status: Acute (5) UTI (urinary tract infection) Status: Acute (6) Anemia Assessment & Plan: Hgb at goal on long acting EPO, monitor; Status: Chronic (7) Immunosuppression Assessment & Plan: s/p now failed renal allograft; tacrolimus being tapered down slowly as outpatient; continue prednisone 5 mg daily for now to avoid any adrenal insufficiency; Status: Acute (8) AAA (abdominal aortic aneurysm) Status: Chronic (9) Renal transplant, status post Status: Chronic
[2018-09-04] MEDS: Sodium Chloride 0.9% 1,000 ML IV SCH (17:12)
[2018-09-04] MEDS: MEROPENEM 500 MG in NS 500 MG/50 ML BAG IVPB SCH (22:33)
--- NOTE | 2018-09-05 00:22 | CON ---
DATE: 09/04/2018 GASTROENTEROLOGY CONSULTATION REQUESTING PHYSICIAN: Dr. Rader. REASON FOR CONSULTATION: I have been asked to see this 67-year-old male with history of end-stage renal disease with known history of polycystic kidney disease, status post renal transplant back in 2006, with known valvular heart disease with severe aortic stenosis, currently on hemodialysis for end-stage renal disease as well as a large infrarenal abdominal aortic aneurysm, which has not been repaired with chronic dissection, whom I have been asked to see for diarrhea. The patient was sent to the emergency room with hypotension and lethargy after his last dialysis. The patient apparently has been having diarrhea for the last 5 days. He also states that he has been incontinent of stool. He attributes his diarrhea to nutritional supplements, which he takes for malnutrition. He denies any recent travel or antibiotic use. He denies the ingestion of any unusual foods. The patient has not had any diarrhea since his hospitalization. CT scan of the abdomen and pelvis reveal normal-appearing colon with polycystic kidney disease and a large infrarenal aortic aneurysm with dissection, which is apparently chronic as well as severe atherosclerotic disease of his intra-abdominal arteries. PAST MEDICAL HISTORY: Is notable for end-stage renal disease, status post renal transplant back in 2006, end-stage renal disease on hemodialysis; large infrarenal abdominal aortic aneurysm with chronic dissection; severe aortic stenosis; diabetes mellitus. PAST SURGICAL HISTORY: Notable for aortic valve replacement, renal transplant, chronic anemia. SOCIAL HISTORY: He is a former cigarette smoker. He denies alcohol use. FAMILY HISTORY: Noncontributory. REVIEW OF SYSTEMS: A 14-point review of systems is notable for generalized weakness and diarrhea, which has resolved. MEDICATIONS: Medications at home include Norvasc, Lipitor, clonidine, Periactin, Zetia, metoprolol, prednisone, and Prograf. PHYSICAL EXAMINATION: GENERAL: Chronically ill-appearing, emaciated, -[place]anese male, appearing much older than stated age, in no distress. VITAL SIGNS: Reveal temperature of 97.4, blood pressure 93/60, heart rate of 73. HEENT: Reveals bitemporal wasting. Conjunctivae pale. Sclerae white. Oral mucosa is moist. NECK: Supple. CHEST: Reveal regular rate and rhythm. There is a 2/6 systolic murmur. ABDOMEN: Soft. There is a pulsatile mass in his left lower quadrant. It is nontender. EXTREMITIES: Show muscle wasting of the extremities. He has an AV shunt in his left arm. LABORATORY DATA: Reveal white blood cell count of 10.4, hemoglobin 10.9, platelet count of 86,000. Chemistries reveal blood sugar of 368, BUN 61, creatinine 6.8, AST 20, ALT 6, total bilirubin 0.7, albumin 2.3. IMPRESSION: A 67-year-old male with several days' of diarrhea, admitted to the hospital with hypotension, weakness. His blood cultures in the hospital are positive for gram-negative rods. Etiology of the diarrhea is unclear, but it appears to have resolved as he has not had any diarrhea today, as per his nurse. He does attribute some of his diarrhea to nutritional supplements. CT scan of the abdomen and pelvis did not show any evidence of mural thickening of the colon or obvious mass. RECOMMENDATIONS: Given poor overall health including severe aortic stenosis and a large infrarenal aortic aneurysm with chronic dissection, I would treat this patient conservatively. I have no plans of doing a colonoscopy on this patient. The patient and his daughter, who is at the bedside, are agreeable with this. We would check stool for C and S, O and P, and C. diff and again can treat the patient conservatively and symptomatically. Laureano Bryan MD
[2018-09-05] MEDS: Sodium Chloride 0.9% 1,000 ML IV SCH (02:00)
[2018-09-05 06:45] LABS: BASO # 0.01 K/mm3 (0.0-2.0); BASO % 0.1 % (0.0-3.0); EOS % 0.1 % (1.5-5.0); HEMOGLOBIN 10.5 g/dL (14.0-18.0); LYMPH # 0.8 (1.2-3.4); LYMPH % 10.8 % (22.0-35.0); MEAN CELL VOLUME 75.4 fl (80.0-105.0); MEAN CORPUSCULAR HEMOGLOBIN 21.7 pg (25.0-35.0); MEAN CORPUSCULAR HGB CONC 28.8 g/dl (31.0-37.0); MONO # 0.4 (0.1-0.6); MONO % 5.9 % (1.0-6.0); PLATELET COUNT 73 10^3/uL (120.0-450.0); RBC 4.84 10^6/uL (3.5-6.1); RED CELL DISTRIBUTION WIDTH 19.5 % (11.5-14.5); WHITE BLOOD COUNT 7.1 10^3/uL (4.5-11.0)
[2018-09-05 07:09] LABS: CALCIUM 7.3 mg/dL (8.4-10.5)
[2018-09-05] MEDS: Insulin Reg-LOW-Coverage SC SCH ×4 (08:18→21:31)
--- NOTE | 2018-09-05 08:25 | CP.PCM.PN ---
Subjective - Date & Time of Evaluation Date of Evaluation: 09/05/18 Time of Evaluation: 07:45 - Subjective Subjective: (covering for Dr. Knox) Patient is seen this morning. He is feeling very weak and lethargic. Objective - Vital Signs/Intake and Output Vital Signs (last 24 hours): Temp Pulse Resp BP Pulse Ox 97.9 F 93 H 18 106/70 96 09/04/18 23:45 09/05/18 05:43 09/04/18 23:45 09/04/18 23:45 09/04/18 23:45 Intake and Output: 09/05/18 09/05/18 06:59 18:59 Intake Total 540 Balance 540 - Medications Medications: Current Medications Atorvastatin Calcium (Lipitor) 10 mg PO DAILY [facility] Last Admin: 09/04/18 09:16 Dose: 10 mg Clonidine HCl (Catapres) 0.1 mg PO BID [facility] Cyproheptadine HCl (Periactin) 4 mg PO BID [facility] Last Admin: 09/04/18 17:11 Dose: 4 mg Ezetimibe (Zetia) 10 mg PO DAILY [facility] Last Admin: 09/04/18 09:02 Dose: 10 mg Meropenem/Sodium Chloride (Merrem Iv 500 Mg/Ns 50 Ml) 500 mg in 50 mls @ 100 mls/hr IVPB Q12 [facility]; Protocol Stop: 09/18/18 22:01 Last Admin: 09/04/18 22:33 Dose: 100 mls/hr Insulin Human Regular (Humulin R Low) 0 units SC ACHS [facility]; Protocol Last Admin: 09/04/18 22:33 Dose: Not Given Metoprolol Tartrate (Lopressor) 25 mg PO BID [facility] Last Admin: 09/04/18 17:19 Dose: Not Given Pantoprazole Sodium (Protonix Ec Tab) 40 mg PO DAILY [facility] Last Admin: 09/04/18 09:02 Dose: 40 mg Prednisone (Prednisone Tab) 5 mg PO DAILY [facility] Last Admin: 09/04/18 09:01 Dose: 5 mg Tacrolimus (Prograf Cap) 1 mg PO QPM [facility] Last Admin: 09/04/18 17:11 Dose: 1 mg Tacrolimus (Prograf Cap) 1 mg PO QAM [facility] Last Admin: 09/04/18 09:02 Dose: 1 mg Tobramycin Sulfate (Tobrex 0.3% Ophth Oint) 0 appl OS BID [facility] Last Admin: 09/04/18 17:13 Dose: 2 unit - Labs Labs: 09/05/18 06:30 09/05/18 06:30 - Constitutional Appears: No Acute Distress - Respiratory Exam Respiratory Exam: Clear to Ausculation Bilateral, NORMAL BREATHING PATTERN - Cardiovascular Exam Cardiovascular Exam: +S1, +S2 - GI/Abdominal Exam GI & Abdominal Exam: Soft, Normal Bowel Sounds. absent: Tenderness - Neurological Exam Neurological Exam: Alert, Awake Assessment and Plan - Assessment and Plan (Free Text) Assessment: Blood culture positive for GNR UTI Hypotension s/p right kidney transplant ESRD on HD Anemia Plan: Patient is seen this morning. He denies any diarrhea since he has been in the hospital. He says he had one bowel movement yesterday and one this morning. Awaiting stool studies. Patient was seen by gastroenterology, Dr. Bryan. Conservative management is recommended as patient is high risk due to his multiple comorbidities. One blood culture is growing gram negative rods. Awaiting results of urine culture. Infectious disease is on consult and patient is currently on IV Meropenem.
[2018-09-05] MEDS: Pantoprazole 40 mg EC Tab PO SCH (09:33)
[2018-09-05] MEDS: Tobramycin 0.3% OPH OINT OS SCH ×2 (09:34→17:44)
[2018-09-05] MEDS: MEROPENEM 500 MG in NS 500 MG/50 ML BAG IVPB SCH ×2 (09:35→21:35)
--- NOTE | 2018-09-05 10:21 | CP.PCM.PCO ---
Physician Communication Note - Physician Communication Note Physician Communication Note: pt with +bc and +uc awaiting ID and sens, pt on iv antibiotics
--- NOTE | 2018-09-05 10:53 | CP.PCM.PN ---
<Elbert Obrien - Last Filed: 09/05/18 10:47> Subjective - Date & Time of Evaluation Date of Evaluation: 09/05/18 Time of Evaluation: 07:15 - Subjective Subjective: Elbert Obrien D.O. PGY-3, Internal Medicine Resident, Infectious Disease Progress Note 67-year-old -[place] male with a past medical history of polycystic kidney disease status post renal transplant in 2006, posttransplant diabetes me llitus, status post aortic valve replacement for severe aortic stenosis, large unrepaired AAA, end-stage renal disease on hemodialysis Saturday/ Saturday/Saturday who presents to the emergency department for lethargy and hypotension. Infectious disease consultation was requested for concerns of urinary tract infection. Patient was seen and examined at bedside. States that his diarrhea has ceased. Feeling weak and tired. States urine had some blood before presentation but not now. Objective - Vital Signs/Intake and Output Vital Signs (last 24 hours): Temp Pulse Resp BP Pulse Ox 97.9 F 93 H 18 92/62 L 96 09/04/18 23:45 09/05/18 05:43 09/04/18 23:45 09/05/18 10:20 09/04/18 23:45 Intake and Output: 09/05/18 09/05/18 06:59 18:59 Intake Total 540 Balance 540 - Medications Medications: Current Medications Atorvastatin Calcium (Lipitor) 10 mg PO DAILY [facility] Last Admin: 09/05/18 09:33 Dose: 10 mg Cyproheptadine HCl (Periactin) 4 mg PO BID [facility] Last Admin: 09/05/18 09:34 Dose: 4 mg Ezetimibe (Zetia) 10 mg PO DAILY [facility] Last Admin: 09/05/18 09:33 Dose: 10 mg Meropenem/Sodium Chloride (Merrem Iv 500 Mg/Ns 50 Ml) 500 mg in 50 mls @ 100 mls/hr IVPB Q12 [facility]; Protocol Stop: 09/18/18 22:01 Last Admin: 09/05/18 09:35 Dose: 100 mls/hr Insulin Human Regular (Humulin R Low) 0 units SC ACHS [facility]; Protocol Last Admin: 09/05/18 08:18 Dose: 2 unit Metoprolol Tartrate (Lopressor) 25 mg PO BID [facility] Last Admin: 09/05/18 10:20 Dose: Not Given Pantoprazole Sodium (Protonix Ec Tab) 40 mg PO DAILY [facility] Last Admin: 09/05/18 09:33 Dose: 40 mg Prednisone (Prednisone Tab) 5 mg PO DAILY [facility] Last Admin: 09/05/18 09:33 Dose: 5 mg Tacrolimus (Prograf Cap) 1 mg PO QPM [facility] Last Admin: 09/04/18 17:11 Dose: 1 mg Tacrolimus (Prograf Cap) 1 mg PO QAM [facility] Last Admin: 09/05/18 09:33 Dose: 1 mg Tobramycin Sulfate (Tobrex 0.3% Ophth Oint) 0 appl OS BID [facility] Last Admin: 09/05/18 09:34 Dose: 1 unit - Labs Labs: 09/05/18 06:30 09/05/18 06:30 - Constitutional Appears: Cachectic, Chronically Ill male - Head Exam Head Exam: ATRAUMATIC, NORMOCEPHALIC, temporal wasting - Eye Exam Eye Exam: left eye irritation and eyelid somewhat swollen (patient scratched before coming in) - ENT Exam ENT Exam: Mucous Membranes Dry - Neck Exam Neck exam: Positive for: Normal Inspection - Respiratory Exam Respiratory Exam: absent: Rales, Rhonchi, Wheezes - Cardiovascular Exam Cardiovascular Exam: +S1, +S2. absent: Rubs - GI/Abdominal Exam GI & Abdominal Exam: palpable abdominal aneurysm, otherwise soft, cachectic - Extremities Exam Additional comments: AVF left upper extremity with palpable thrill - Psychiatric Exam Psychiatric exam: Normal Affect, Normal Mood - Skin Skin Exam: Dry, Warm Assessment and Plan - Assessment and Plan (Free Text) Assessment: 67-year-old -[place]ian male with a past medical history of polycystic kidney disease status post renal transplant in 2006, posttransplant diabetes mellitus, status post aortic valve replacement for severe aortic stenosis, large unrepaired AAA, end-stage renal disease on hemodialysis Saturday/ Saturday/Saturday who presents to the emergency department for lethargy and hypotension. Infectious disease consultation was requested for concerns of urinary tract infe ction. Plan: Complicated urinary tract infection and bacteremia Polycystic kidney disease status post renal transplant status post sepsis with ATN status post reinitiation of hemodialysis Saturday/Saturday/Saturday Left eye redness Aortic stenosis Posttransplantation diabetes mellitus Continues to be afebrile with no leukocytosis BCx 1/2 + for GNR UCx + for GNR Diarrhea appears to be a chronic issues for patient GI note reviewed, recs appreciated, no plan for interventions Nephro following patient, recs appreciated Switched from cefepime to meropenem renal dosing We will follow with you Patient was seen and examined and case to be discussed at length with attending physician Thank you for the pleasure participating in the care of this interesting patient <Bishop Squires - Last Filed: 09/05/18 11:23> Objective - Vital Signs/Intake and Output Vital Signs (last 24 hours): Temp Pulse Resp BP Pulse Ox 97.9 F 93 H 18 92/62 L 96 09/04/18 23:45 09/05/18 05:43 09/04/18 23:45 09/05/18 10:20 09/04/18 23:45 Intake and Output: 09/05/18 09/05/18 06:59 18:59 Intake Total 540 Balance 540 - Medications Medications: Current Medications Atorvastatin Calcium (Lipitor) 10 mg PO DAILY [facility] Last Admin: 09/05/18 09:33 Dose: 10 mg Cyproheptadine HCl (Periactin) 4 mg PO BID [facility] Last Admin: 09/05/18 09:34 Dose: 4 mg Ezetimibe (Zetia) 10 mg PO DAILY [facility] Last Admin: 09/05/18 09:33 Dose: 10 mg Meropenem/Sodium Chloride (Merrem Iv 500 Mg/Ns 50 Ml) 500 mg in 50 mls @ 100 mls/hr IVPB Q12 [facility]; Protocol Stop: 09/18/18 22:01 Last Admin: 09/05/18 09:35 Dose: 100 mls/hr Insulin Human Regular (Humulin R Low) 0 units SC ACHS [facility]; Protocol Last Admin: 09/05/18 08:18 Dose: 2 unit Metoprolol Tartrate (Lopressor) 25 mg PO BID [facility] Last Admin: 09/05/18 10:20 Dose: Not Given Pantoprazole Sodium (Protonix Ec Tab) 40 mg PO DAILY [facility] Last Admin: 09/05/18 09:33 Dose: 40 mg Prednisone (Prednisone Tab) 5 mg PO DAILY [facility] Last Admin: 09/05/18 09:33 Dose: 5 mg Tacrolimus (Prograf Cap) 1 mg PO QPM [facility] Last Admin: 09/04/18 17:11 Dose: 1 mg Tacrolimus (Prograf Cap) 1 mg PO QAM [facility] Last Admin: 09/05/18 09:33 Dose: 1 mg Tobramycin Sulfate (Tobrex 0.3% Ophth Oint) 0 appl OS BID [facility] Last Admin: 09/05/18 09:34 Dose: 1 unit - Labs Labs: 09/05/18 06:30 09/05/18 06:30 Attending/Attestation - Attestation I have personally seen and examined this patient.: Yes I have fully participated in the care of the patient.: Yes I have reviewed all pertinent clinical information, including history, physical exam and plan: Yes Notes (Text): 09/05/18 11:21 GRAM NEGATIVE KASHIF BACTEREMIA WITH GRAM NEGATIVE IN URINE CULTURE
--- NOTE | 2018-09-05 11:16 | CON ---
DATE OF CONSULTATION: 09/05/2018 CARDIOLOGY CONSULTATION I was asked to see the patient for his aortic stenosis as well as his AAA. HISTORY OF PRESENT ILLNESS: The patient is a 67-year-old male, who has end-stage renal disease, who is status post transplantation in 2006 for polycystic kidney disease, which has failed. He has documented aortic stenosis as well as a large abdominal aneurysm. He was sent to [facility] several months ago for evaluation of TAVR for a valve in valve aortic replacement as well as for follow up with his AAA. He presented this time with hypotension and diarrhea. He denies chest pain, denies shortness of breath. REVIEW OF SYSTEMS: As above. PHYSICAL EXAMINATION: VITAL SIGNS: Blood pressure 95 systolic, heart rate is in the 90s. NECK: Negative JVD. LUNGS: Without rales. HEART: Reveals a 2/6 systolic ejection murmur. EXTREMITIES: Without edema. Overall, the patient is very cachectic. EKG shows normal sinus rhythm with nonspecific ST-T changes. LABORATORY DATA: Hemoglobin is 10.5. Chemistries, BUN and creatinine are 38 and 4.1 with a glucose of 209. IMPRESSION: 1. Diarrhea. 2. Muscle wasting. 3. End-stage renal disease. 4. Failed kidney transplant 5. Critical aortic stenosis. 6. History of a 7 cm abdominal aortic aneurysm. PLAN: 1. The patient was seen at [facility] for TAVR and was turned down because of his multiple comorbidities for possible valve in valve. 2. He is evaluated by Vascular Surgery where there were no plans for immediate repair of his abdominal aneurysm. Currently, his blood pressure is low. We will discontinue his clonidine. In addition, we will hold his Lopressor for now until his pressure is better. The patient's overall prognosis is poor. Carlos Shane MD
--- NOTE | 2018-09-05 11:58 | PN ---
DATE: 09/05/2018 SUBJECTIVE: The patient is lying in bed. He remains weak. He denies any diarrhea. PHYSICAL EXAMINATION: VITAL SIGNS: Temperature of 97.9, blood pressure 92/62, heart rate 93. HEENT: Reveal sclerae to be white. Conjunctivae pale. NECK: Supple. CHEST: Reveal lungs to be clear. HEART: Exam reveals an irregular rate with a 2/6 systolic murmur. ABDOMEN: Soft. He has a palpable pulsatile mass in his left lower quadrant. EXTREMITIES: Show no edema. He has an AV shunt in his left arm. LABORATORY DATA: Reveal white blood cell count 7.1, hemoglobin 10.5. Chemistries reveal BUN 38, creatinine 4.1. IMPRESSION: A 67-year-old male with end-stage renal disease, on hemodialysis, status post failed renal transplant, admitted to the hospital with weakness and hypotension. He has gram-negative rods in his blood. He has not had any further diarrhea since his hospitalization. He has chronic anemia. RECOMMENDATIONS: Continue supportive care, long-term prognosis is poor. Laureano Bryan MD
--- NOTE | 2018-09-05 12:39 | CP.PCM.PN ---
<Papi Dunlap - Last Filed: 09/05/18 13:31> Subjective - Date & Time of Evaluation Date of Evaluation: 09/05/18 Time of Evaluation: 12:34 - Subjective Subjective: Nephrology Progress Note (Dr. Bennett covering Dr. Wheeler's Service): Patient seen and assessed at bedside. No acute events overnight. Patient reports that he has had no episodes of diarrhea since admission and only complains of residual mild fatigue after walking to the bathroom that is noted to be improved. Further 12 point ROS reviewed and unremarkable at this time. Objective - Vital Signs/Intake and Output Vital Signs (last 24 hours): Temp Pulse Resp BP Pulse Ox 97.9 F 93 H 18 103/70 96 09/05/18 12:00 09/05/18 12:00 09/05/18 12:00 09/05/18 12:00 09/04/18 23:45 Intake and Output: 09/05/18 09/05/18 06:59 18:59 Intake Total 540 Balance 540 - Medications Medications: Current Medications Atorvastatin Calcium (Lipitor) 10 mg PO DAILY [facility] Last Admin: 09/05/18 09:33 Dose: 10 mg Cyproheptadine HCl (Periactin) 4 mg PO BID [facility] Last Admin: 09/05/18 09:34 Dose: 4 mg Ezetimibe (Zetia) 10 mg PO DAILY [facility] Last Admin: 09/05/18 09:33 Dose: 10 mg Meropenem/Sodium Chloride (Merrem Iv 500 Mg/Ns 50 Ml) 500 mg in 50 mls @ 100 mls/hr IVPB Q12 [facility]; Protocol Stop: 09/18/18 22:01 Last Admin: 09/05/18 09:35 Dose: 100 mls/hr Insulin Human Regular (Humulin R Low) 0 units SC ACHS [facility]; Protocol Last Admin: 09/05/18 08:18 Dose: 2 unit Metoprolol Tartrate (Lopressor) 25 mg PO BID [facility] Last Admin: 09/05/18 10:20 Dose: Not Given Pantoprazole Sodium (Protonix Ec Tab) 40 mg PO DAILY [facility] Last Admin: 09/05/18 09:33 Dose: 40 mg Prednisone (Prednisone Tab) 5 mg PO DAILY [facility] Last Admin: 09/05/18 09:33 Dose: 5 mg Tacrolimus (Prograf Cap) 1 mg PO QPM [facility] Last Admin: 09/04/18 17:11 Dose: 1 mg Tacrolimus (Prograf Cap) 1 mg PO QAM [facility] Last Admin: 09/05/18 09:33 Dose: 1 mg Tobramycin Sulfate (Tobrex 0.3% Ophth Oint) 0 appl OS BID [facility] Last Admin: 09/05/18 09:34 Dose: 1 unit - Labs Labs: 09/05/18 06:30 09/05/18 06:30 - Constitutional Appears: No Acute Distress, Cachectic - Head Exam Additional comments: Mild ecchymosis over left eye - Eye Exam Eye Exam: Conjunctival injection (Left), EOMI. absent: Nystagmus, Periorbital swelling, Periorbital tenderness, Scleral icterus Pupil Exam: NORMAL ACCOMODATION, PERRL - ENT Exam ENT Exam: Mucous Membranes Dry - Neck Exam Neck Exam: Full ROM - Respiratory Exam Respiratory Exam: Clear to Ausculation Bilateral, NORMAL BREATHING PATTERN. absent: Accessory Muscle Use, Chest Wall Tenderness, Decreased Breath Sounds, Prolonged Expiratory Phase, Rales, Rhonchi, Wheezes, Respiratory Distress, Stridor - Cardiovascular Exam Cardiovascular Exam: RRR, +S1, +S2 - GI/Abdominal Exam GI & Abdominal Exam: Soft, Normal Bowel Sounds. absent: Tenderness - Extremities Exam Extremities Exam: absent: Calf Tenderness, Pedal Edema - Neurological Exam Neurological Exam: Alert, Awake, Oriented x3 - Psychiatric Exam Psychiatric exam: Normal Affect, Normal Mood - Skin Skin Exam: Dry, Intact Assessment and Plan - Assessment and Plan (Free Text) Assessment: 67 year old male with a past medical history significant for ADPKD s/p renal allograft (2006), ESRD on HD MWF, post-transplant DM2, HTN, unrepaired severe , and unrepaired infrarenal AAA who was admitted for lethargy and persistent diarrhea. Nephrology was consulted for ESRD care. Plan: 1. ESRD on HD -s/p HD yesterday with 0 net UF (Clearance only); Noted to be mildly hypotensive during -Next HD tomorrow (09/06; off schedule) -Relatively stable electrolyte and volume status currently -Continue to monitor I/O's -Avoid nephrotoxic agents -Renally dose medications as indicated 2. Diarrhea -Resolved -Stool cultures and further infectious diarrhea workup pending -No need for further IVF at this time -GI team recommending conservative care at this time with no plans for endos copic procedures -Continue to monitor volume status and BP 3. HTN -Further IVF discontinued -Continue home Metoprolol -Holding home Clonidine in setting of hypotension 4. Gram Negative Sepsis secondary to UTI -Continue Merrem as ordered for empiric coverage -Further management as per ID 5. Immunosuppression -Continue Tacrolimus as ordered (will taper slowly as outpatient) -Continue Prednisone 5mg daily to avoid adrenal insufficiency 6. AAA -IR consulted, all recommendations appreciated 7. Thrombocytopenia -Hematology consulted, all recommendations appreciated 8. Anemia in ESRD -Continues to be at goal -Will continue long acting EPO as outpatient Patient seen and case discussed with attending, Dr. Bennett covering Dr. Wheeler. Papi Dunlap PGY2 <Jaxon Bennett S - Last Filed: 09/05/18 19:15> Objective - Vital Signs/Intake and Output Vital Signs (last 24 hours): Temp Pulse Resp BP Pulse Ox 98.7 F 94 H 18 109/74 96 09/05/18 18:00 09/05/18 18:00 09/05/18 18:00 09/05/18 18:00 09/04/18 23:45 - Medications Medications: Current Medications Atorvastatin Calcium (Lipitor) 10 mg PO DAILY [facility] Last Admin: 09/05/18 09:33 Dose: 10 mg Cyproheptadine HCl (Periactin) 4 mg PO BID [facility] Last Admin: 09/05/18 17:40 Dose: 4 mg Ezetimibe (Zetia) 10 mg PO DAILY [facility] Last Admin: 09/05/18 09:33 Dose: 10 mg Meropenem/Sodium Chloride (Merrem Iv 500 Mg/Ns 50 Ml) 500 mg in 50 mls @ 100 mls/hr IVPB Q12 [facility]; Protocol Stop: 09/18/18 22:01 Last Admin: 09/05/18 09:35 Dose: 100 mls/hr Insulin Human Regular (Humulin R Low) 0 units SC ACHS [facility]; Protocol Last Admin: 09/05/18 17:38 Dose: 2 unit Metoprolol Tartrate (Lopressor) 25 mg PO BID [facility] Last Admin: 09/05/18 17:42 Dose: 25 mg Pantoprazole Sodium (Protonix Ec Tab) 40 mg PO DAILY [facility] Last Admin: 09/05/18 09:33 Dose: 40 mg Prednisone (Prednisone Tab) 5 mg PO DAILY [facility] Last Admin: 09/05/18 09:33 Dose: 5 mg Tacrolimus (Prograf Cap) 1 mg PO QPM [facility] Last Admin: 09/05/18 17:39 Dose: 1 mg Tacrolimus (Prograf Cap) 1 mg PO QAM [facility] Last Admin: 09/05/18 09:33 Dose: 1 mg Tobramycin Sulfate (Tobrex 0.3% Ophth Oint) 0 appl OS BID [facility] Last Admin: 09/05/18 17:44 Dose: 1 unit - Labs Labs: 09/05/18 06:30 09/05/18 06:30 Assessment and Plan - Assessment and Plan (Free Text) Plan: Pt seen and examined by me. I have reviewed the note of the medical sociologist and I agree with it. I have discussed the assessment and plan with the resident. I have reviewed the medications and the last labs.
--- NOTE | 2018-09-05 23:04 | PN ---
DATE: 09/05/2018 The patient was seen and examined. I do agree with the note of the medical service representative. I was involved in the plan of care. This is coverage for Dr. Wheeler for renal followup. The patient says he feels well. He does not have any diarrhea. The patient had end-stage renal disease. He is on hemodialysis. His next dialysis is tomorrow. The patient has hypertension. His IV has been discontinued. He continues on metoprolol. 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 The patient has diabetes and hypertension that is being controlled. He has gram-negative sepsis secondary to UTI. He has immunosuppression that is going to be continued with prednisone and tacrolimus. The patient has thrombocytopenia. He has anemia. He is on erythropoietin. The patient has a left fistula that has a good thrill and bruit. He is going to continue with the dialysis through the fistula. His dialysis is due for tomorrow morning. Jaxon Bennett MD
--- NOTE | 2018-09-06 02:35 | CP.PCM.PN ---
Subjective - Date & Time of Evaluation Date of Evaluation: 09/06/18 Time of Evaluation: 02:35 - Subjective Subjective: Earlier patient was given tylenol for back pain. States that he has no complaints now. Had lower back pain earlier. Denied any other any other symptoms. This 67 year old white male was admitted from dialysis center for hypotension,hypokalemia,UTI. Has PMH of DM, ESRD, hypertension, on hemodialysis,AAA, right renal transplant. Objective - Vital Signs/Intake and Output Vital Signs (last 24 hours): Temp Pulse Resp BP Pulse Ox 98 F 118 H 20 147/95 H 97 09/06/18 01:09 09/06/18 00:01 09/06/18 00:01 09/06/18 00:01 09/06/18 00:01 - Medications Medications: Current Medications Atorvastatin Calcium (Lipitor) 10 mg PO DAILY [facility] Last Admin: 09/05/18 09:33 Dose: 10 mg Cyproheptadine HCl (Periactin) 4 mg PO BID [facility] Last Admin: 09/05/18 17:40 Dose: 4 mg Ezetimibe (Zetia) 10 mg PO DAILY [facility] Last Admin: 09/05/18 09:33 Dose: 10 mg Meropenem/Sodium Chloride (Merrem Iv 500 Mg/Ns 50 Ml) 500 mg in 50 mls @ 100 mls/hr IVPB Q12 [facility]; Protocol Stop: 09/18/18 22:01 Last Admin: 09/05/18 21:35 Dose: 100 mls/hr Insulin Human Regular (Humulin R Low) 0 units SC ACHS [facility]; Protocol Last Admin: 09/05/18 21:31 Dose: Not Given Metoprolol Tartrate (Lopressor) 25 mg PO BID [facility] Last Admin: 09/05/18 17:42 Dose: 25 mg Pantoprazole Sodium (Protonix Ec Tab) 40 mg PO DAILY [facility] Last Admin: 09/05/18 09:33 Dose: 40 mg Prednisone (Prednisone Tab) 5 mg PO DAILY [facility] Last Admin: 09/05/18 09:33 Dose: 5 mg Tacrolimus (Prograf Cap) 1 mg PO QPM [facility] Last Admin: 09/05/18 17:39 Dose: 1 mg Tacrolimus (Prograf Cap) 1 mg PO QAM [facility] Last Admin: 09/05/18 09:33 Dose: 1 mg Tobramycin Sulfate (Tobrex 0.3% Ophth Oint) 0 appl OS BID [facility] Last Admin: 09/05/18 17:44 Dose: 1 unit - Labs Labs: 09/05/18 06:30 09/05/18 06:30 - Constitutional Appears: Well, No Acute Distress - Head Exam Head Exam: ATRAUMATIC, NORMAL INSPECTION, NORMOCEPHALIC - Eye Exam Eye Exam: Normal appearance - ENT Exam ENT Exam: Normal External Ear Exam - Neck Exam Neck Exam: Normal Inspection - Respiratory Exam Respiratory Exam: NORMAL BREATHING PATTERN - Cardiovascular Exam Cardiovascular Exam: absent: JVD - GI/Abdominal Exam GI & Abdominal Exam: absent: Distended - Rectal Exam Rectal Exam: Deferred - Exam Additional comments: Deferred. - Extremities Exam Extremities Exam: Normal Inspection - Back Exam Back Exam: NORMAL INSPECTION - Neurological Exam Neurological Exam: Alert, Awake, Oriented x3 - Psychiatric Exam Psychiatric exam: Normal Affect, Normal Mood - Skin Skin Exam: Normal Color Assessment and Plan - Assessment and Plan (Free Text) Assessment: Low back pain. DM. HTN. ESRD. AAA history. Plan: Tylenol 650 mg PO x 1
--- NOTE | 2018-09-06 08:18 | CP.PCM.PN ---
Subjective - Date & Time of Evaluation Date of Evaluation: 09/06/18 Time of Evaluation: 08:00 - Subjective Subjective: (covering for Dr. Knox) Patient is seen this morning. He is resting in the bed. No overnight events. Objective - Vital Signs/Intake and Output Vital Signs (last 24 hours): Temp Pulse Resp BP Pulse Ox 98 F 85 18 102/65 95 09/06/18 06:00 09/06/18 06:00 09/06/18 06:00 09/06/18 06:00 09/06/18 06:00 Intake and Output: 09/06/18 09/06/18 06:59 18:59 Intake Total 1480 Balance 1480 - Medications Medications: Current Medications Atorvastatin Calcium (Lipitor) 10 mg PO DAILY [facility] Last Admin: 09/05/18 09:33 Dose: 10 mg Cyproheptadine HCl (Periactin) 4 mg PO BID [facility] Last Admin: 09/05/18 17:40 Dose: 4 mg Ezetimibe (Zetia) 10 mg PO DAILY [facility] Last Admin: 09/05/18 09:33 Dose: 10 mg Meropenem/Sodium Chloride (Merrem Iv 500 Mg/Ns 50 Ml) 500 mg in 50 mls @ 100 mls/hr IVPB Q12 [facility]; Protocol Stop: 09/18/18 22:01 Last Admin: 09/05/18 21:35 Dose: 100 mls/hr Insulin Human Regular (Humulin R Low) 0 units SC ACHS [facility]; Protocol Last Admin: 09/05/18 21:31 Dose: Not Given Metoprolol Tartrate (Lopressor) 25 mg PO BID [facility] Last Admin: 09/05/18 17:42 Dose: 25 mg Pantoprazole Sodium (Protonix Ec Tab) 40 mg PO DAILY [facility] Last Admin: 09/05/18 09:33 Dose: 40 mg Prednisone (Prednisone Tab) 5 mg PO DAILY [facility] Last Admin: 09/05/18 09:33 Dose: 5 mg Tacrolimus (Prograf Cap) 1 mg PO QPM [facility] Last Admin: 09/05/18 17:39 Dose: 1 mg Tacrolimus (Prograf Cap) 1 mg PO QAM [facility] Last Admin: 09/05/18 09:33 Dose: 1 mg Tobramycin Sulfate (Tobrex 0.3% Ophth Oint) 0 appl OS BID [facility] Last Admin: 09/05/18 17:44 Dose: 1 unit - Labs Labs: 09/05/18 06:30 09/05/18 06:30 - Constitutional Appears: No Acute Distress - Head Exam Head Exam: ATRAUMATIC, NORMOCEPHALIC - Respiratory Exam Respiratory Exam: Clear to Ausculation Bilateral, NORMAL BREATHING PATTERN - Cardiovascular Exam Cardiovascular Exam: REGULAR RHYTHM, +S1, +S2 - GI/Abdominal Exam GI & Abdominal Exam: Soft. absent: Tenderness - Extremities Exam Extremities Exam: absent: Pedal Edema - Neurological Exam Neurological Exam: Alert, Awake, Oriented x3 Assessment and Plan - Assessment and Plan (Free Text) Assessment: Gram negative bacteremia and UTI H/O right kidney transplant on tacrolimus ESRD on HD Chronic anemia Diabetes AAA Plan: Urine culture and one of 2 blood cultures are growing gram negative rods. Patient is on IV Meropenem as per infectious disease. It appears that the diarrhea has subsided since patient was admitted. Possibly due to nutritional supplement patient was taking at home. Conservative manage ment as per GI. No plans for colonoscopy. Patient is on Tacrolimus and prednisone for immunosuppression for kidney transplant. He will have dialysis as per nephrology. Patient has large abdominal aortic aneurysm for which he is being followed by Dr. Dewitt as outpatient. continue insulin coverage for diabetes.
[2018-09-06] MEDS: Insulin Reg-LOW-Coverage SC SCH ×5 (08:25→22:00)
[2018-09-06 09:18] LABS: MEAN CELL VOLUME 74.3 fl (80.0-105.0); MEAN CORPUSCULAR HEMOGLOBIN 21.8 pg (25.0-35.0); MEAN CORPUSCULAR HGB CONC 29.3 g/dl (31.0-37.0); PLATELET COUNT 67 10^3/uL (120.0-450.0); RBC 4.59 10^6/uL (3.5-6.1); RED CELL DISTRIBUTION WIDTH 19.2 % (11.5-14.5); WHITE BLOOD COUNT 20.6 10^3/uL (4.5-11.0)
--- NOTE | 2018-09-06 09:40 | PN ---
DATE: 09/06/2018 SUBJECTIVE: The patient is sitting in a chair, eating breakfast without symptoms. OBJECTIVE: VITAL SIGNS: Blood pressure 127/80, prior to dialysis, heart rate is in the 80s. NECK: Negative JVD. LUNGS: Without rales. HEART: S1, S2. EXTREMITIES: Without edema. LABORATORY DATA: Hemoglobin is 10.5. Chemistries; potassium is 4.6, glucose is 209. IMPRESSION: 1. End-stage renal disease. 2. Aortic stenosis. 3. Abdominal aortic aneurysm. 4. History of renal transplant which is failed. 5. Muscle wasting. 6. Sepsis. Given these findings, the patient's blood pressure is stable for dialysis today. Carlos Shane MD
[2018-09-06] MEDS: Tobramycin 0.3% OPH OINT OS SCH ×2 (10:00→18:05)
--- NOTE | 2018-09-06 10:00 | PN ---
DATE: 09/06/2018 SUBJECTIVE: The patient has no complains of any chest pain, no shortness of breath, no headaches. PHYSICAL EXAMINATION VITAL SIGNS: Temperature is 98, pulse of 85, blood pressure is 102/65, respirations are 18. GENERAL: The patient is lying in bed, flat, comfortable. HEENT: No oral lesion. Anicteric sclerae. Moist mucosa. NECK: No JVD, adenopathy, or thyromegaly. CARDIOVASCULAR: S1 and S2, regular. No murmurs, rubs, or gallops. LUNGS: Clear to auscultation bilaterally. No wheeze, rales, or rhonchi. ABDOMEN: Bowel sounds are positive, soft, nontender and nondistended. EXTREMITIES: In the left arm there is a AV fistula with good thrill and bruits. No cyanosis, clubbing or edema. LABORATORY DATA: White count is 7.1, hemoglobin is 10.5, creatinine is 4.1. ASSESSMENT: 1. End-stage renal disease, on hemodialysis. 2. Aortic aneurysm of the abdomen. 3. Polycystic kidney disease. 4. Left arteriovenous fistula. 5. Hypertension. 6. Sepsis secondary to gram-negative rods. 7. Thrombocytopenia. 8. Anemia of chronic. 9. Status post kidney transplant. PLAN: The patient is currently comfortable. He is due for dialysis today, I did speak to the dialysis unit. The patient is going to be on Lipitor for dyslipidemia. He is going to be on meropenem for his antibiotics, it is renally dosed. The patient is on tacrolimus for his kidney transplant. The patient is going to continue with Zetia for his dyslipidemia. She is on a heart-healthy diet. Jaxon Bennett MD
[2018-09-06] MEDS: MEROPENEM 500 MG in NS 500 MG/50 ML BAG IVPB SCH (12:41)
[2018-09-06] MEDS: Pantoprazole 40 mg EC Tab PO SCH (12:41)
--- NOTE | 2018-09-06 17:53 | CP.PCM.CON ---
History of Present Illness - History of Present Illness History of Present Illness: 67 year old male with a history of of polycystic kidney disease complicated by ESRD s/p renal transplant, currently on HD, AAA awaiting repair, chronic anemia, admitted with urosepsis, with anemia and thrombocytopenia. The patient is well known to me and had been on intermittent iron and Procrit prior to restarting dialysis. He admits to diarrhea and weightloss. He feels his mobility is becoming a problem due to his weightloss. He reports to poor appetite. He denies abnormal bleeding and bruising. Past medical history: polycystic kidney disease, renal transplant, CKD, AAA, anemia Past surgical history: Renal transplant, Aortic valve replacement Family history: Denies hematologic and oncologic problems Social history: Denies tobacco, alcohol, and illicit drug use. Allergies: NKA Review of systems: All remaining review of systems including HEENT, cardiovascular, respiratory, gastrointestinal, genitourinary, musculoskeletal, dermatologic, neurologic, and psychiatric are negative unless mentioned in the HPI. Past Patient History - Infectious Disease Hx of Infectious Diseases: None - Past Medical History & Family History Past Medical History?: Yes - Past Social History Smoking Status: Former Smoker - CARDIAC Hx Cardiac Disorders: Yes (CAD) Hx Hypertension: Yes Hx Peripheral Edema: Yes (+1 pitting ble) Other/Comment: Aortic Valve Replacement at [facility], aortic abdominal aneurysm unable to do sx at present time - PULMONARY Hx Respiratory Disorders: No - NEUROLOGICAL Hx Neurological Disorder: No - HEENT Hx HEENT Problems: Yes (wears glasses) - RENAL Hx Chronic Kidney Disease: Yes (stage iv) Hx Dialysis: Yes (left arm fistula) Other/Comment: Kidney transplant at [facility] in [facility], last dialysis oct 08 2006, hypertensive chronic kidney disease - ENDOCRINE/METABOLIC Hx Endocrine Disorders: Yes Hx Diabetes Mellitus Type 2: Yes - HEMATOLOGICAL/ONCOLOGICAL Hx Blood Disorders: Yes Hx Anemia: Yes (iron deficiency) Other/Comment: dx with anemia 2 yrs ago unable to get a colonoscopy due to aaa, may try new procedure in [place] as per pt, receives iron infusions from pt's , dr scales in [place] - INTEGUMENTARY Hx Dermatological Problems: Yes Other/Comment: multiple skin discolorations ble, pt refusing for me to removd his anti embolism stockings/shoes and socks to assess feet, pt stated "I'm embarrassed. I plan to see foot dr within a few weeks but I have had other health problems." pt stated. - MUSCULOSKELETAL/RHEUMATOLOGICAL Hx Musculoskeletal Disorders: Yes Hx Unsteady Gait: Yes - GASTROINTESTINAL Hx Gastrointestinal Disorders: Yes (poor appetite weight loss) Other/Comment: AAA, chronic hiccups - GENITOURINARY/GYNECOLOGICAL Hx Genitourinary Disorders: Yes Other/Comment: bilateral inguinal hernias (repaired) - PSYCHIATRIC Hx Psychophysiologic Disorder: No Hx Substance Use: No - SURGICAL HISTORY Hx Kidney Transplant: Yes Other/Comment: Aortic valve replacement - ANESTHESIA Hx Anesthesia: Yes Hx Anesthesia Reactions: No Hx Malignant Hyperthermia: No Meds Allergies/Adverse Reactions: Allergies Allergy/AdvReac Type Severity Reaction Status Date / Time No Known Allergies Allergy Verified 04/07/18 19:37 - Medications Medications: Current Medications Atorvastatin Calcium (Lipitor) 10 mg PO DAILY [facility] Last Admin: 09/05/18 09:33 Dose: 10 mg Cyproheptadine HCl (Periactin) 4 mg PO BID [facility] Last Admin: 09/05/18 17:40 Dose: 4 mg Ezetimibe (Zetia) 10 mg PO DAILY [facility] Last Admin: 09/05/18 09:33 Dose: 10 mg Meropenem/Sodium Chloride (Merrem Iv 500 Mg/Ns 50 Ml) 500 mg in 50 mls @ 100 mls/hr IVPB Q12 [facility]; Protocol Stop: 09/18/18 22:01 Last Admin: 09/05/18 09:35 Dose: 100 mls/hr Insulin Human Regular (Humulin R Low) 0 units SC ACHS [facility]; Protocol Last Admin: 09/05/18 17:38 Dose: 2 unit Metoprolol Tartrate (Lopressor) 25 mg PO BID [facility] Last Admin: 09/05/18 17:42 Dose: 25 mg Pantoprazole Sodium (Protonix Ec Tab) 40 mg PO DAILY [facility] Last Admin: 09/05/18 09:33 Dose: 40 mg Prednisone (Prednisone Tab) 5 mg PO DAILY [facility] Last Admin: 09/05/18 09:33 Dose: 5 mg Tacrolimus (Prograf Cap) 1 mg PO QPM [facility] Last Admin: 09/05/18 17:39 Dose: 1 mg Tacrolimus (Prograf Cap) 1 mg PO QAM [facility] Last Admin: 09/05/18 09:33 Dose: 1 mg Tobramycin Sulfate (Tobrex 0.3% Ophth Oint) 0 appl OS BID [facility] Last Admin: 09/05/18 17:44 Dose: 1 unit Physical Exam - Constitutional Appears: Cachectic - Head Exam Head Exam: ATRAUMATIC - Eye Exam Eye Exam: Normal appearance - ENT Exam ENT Exam: Mucous Membranes Dry Results - Vital Signs Recent Vital Signs: Last Vital Signs Temp 98.7 F 09/05/18 18:00 Pulse 94 H 09/05/18 18:00 Resp 18 09/05/18 18:00 BP 109/74 09/05/18 18:00 Pulse Ox 96 09/04/18 23:45 - Labs Result Diagrams: 09/06/18 09:00 09/06/18 09:00 Labs: Laboratory Results - last 24 hr 09/03/18 09/05/18 09/05/18 18:00 06:30 06:30 WBC 7.1 D RBC 4.84 Hgb 10.5 L Hct 36.5 L MCV 75.4 L MCH 21.7 L MCHC 28.8 L RDW 19.5 H Plt Count 73 L Neut % (Auto) 83.1 H Lymph % (Auto) 10.8 L [place] % (Auto) 5.9 Eos % (Auto) 0.1 L Baso % (Auto) 0.1 Lymph # (Auto) 0.8 L [place] # (Auto) 0.4 Eos # (Auto) 0.0 Baso # (Auto) 0.01 Absolute Neuts (auto) 5.89 Sodium 135 Potassium 4.6 Chloride 104 Carbon Dioxide 21 Anion Gap 15 BUN 38 H Creatinine 4.1 H Est GFR ( Amer) 18 Est GFR (Non-Af Amer) 15 Random Glucose 209 H Calcium 7.3 L Tacrolimus (LC/MS/MS) 42.6 H Assessment & Plan (1) Thrombocytopenia Assessment and Plan: multifactorial sepsis, immunosuppression will check heparin AB (low suspicion for HIT) and fibrinogen to rule out DIC Status: Acute (2) Anemia Assessment and Plan: retic count, b12, folate, ferritin, FOBT to further characterize anemia of CKD on MARK per renal Status: Chronic (3) Leukocytosis Assessment and Plan: on antibiotics Thank you for this interesting consult. Status: Acute
[2018-09-06] MEDS: Potassium Chloride 20 mEq ER Tab PO SCH (21:15)
--- NOTE | 2018-09-06 23:58 | PN ---
DATE: 09/06/2018 SUBJECTIVE: The patient is in bed, no acute distress, was seen earlier today in 269, bed 2. PHYSICAL EXAMINATION: VITAL SIGNS: Temperature is 98, Blood pressure is 104/60, respiratory rate of 18, heart rate of 95. HEENT: Unremarkable. NECK: Supple. LUNGS: Have decreased breath sounds. HEART: Normal S1, S2. ABDOMEN: Soft. LABORATORY DATA: Reveals a white count of 20,000, BUN of 53, creatinine is 4.7. Microbiology is noted with Klebsiella in the blood, sensitive to cefazolin, ceftriaxone sensitivity with the exception of ampicillin, is also positive for Klebsiella in the urine. ASSESSMENT AND PLAN: A 67-year-old male who was seen earlier today with history of polycystic kidney disease, status post renal transplant, diabetes, status post aortic valve replacement for aortic stenosis, large unrepaired abdominal aortic aneurysm, end-stage renal disease, on hemodialysis. The patient had a temperature of 100.7 yesterday, heart rate of 95 with a leukocytosis of 20,000 with Klebsiella in the blood. 1. Sepsis with Klebsiella bacteremia secondary to Klebsiella urinary tract infection, severe sepsis with acute renal failure. The patient's last creatinine of 1.5 on 04/2018, admitted with creatinine over 6.4. We will treat the patient with ceftriaxone 1 gram daily. The patient is on prednisone. Discontinue the meropenem. The patient did have a CAT scan of the abdomen and pelvis. We will also order an echocardiogram because of the aortic valve involvement. We will also order repeat blood cultures and see if it would clear the bacteremia and we will follow closely with you. Bishop Squires MD
--- NOTE | 2018-09-07 02:06 | CP.PCM.PN ---
Subjective - Date & Time of Evaluation Date of Evaluation: 09/07/18 Time of Evaluation: 02:02 - Subjective Subjective: Patient was at bedside. He was given tylenol for Diffuse abdominal pain,states that he felt sore all over belly from laying in bed, thinks that it is because of position. Had no other complaints. Feels better now. This 67 year old white male was admitted from dialysis center for hypotension,hypokalemia,UTI. Has PMH of ESRD, hypertension, on hemodialysis,AAA, right renal transplant,DM. Objective - Vital Signs/Intake and Output Vital Signs (last 24 hours): Temp Pulse Resp BP Pulse Ox 98.6 F 93 H 20 117/73 98 09/07/18 00:01 09/07/18 00:01 09/07/18 00:01 09/07/18 00:01 09/07/18 00:01 Intake and Output: 09/06/18 09/07/18 18:59 06:59 Intake Total 480 Balance 480 - Medications Medications: Current Medications Atorvastatin Calcium (Lipitor) 10 mg PO DAILY [facility] Last Admin: 09/06/18 12:41 Dose: 10 mg Cyproheptadine HCl (Periactin) 4 mg PO BID [facility] Last Admin: 09/06/18 18:04 Dose: 4 mg Ezetimibe (Zetia) 10 mg PO DAILY [facility] Last Admin: 09/06/18 12:41 Dose: 10 mg Ceftriaxone Sodium (Rocephin 1 Gram Ivpb) 1 gm in 100 mls @ 100 mls/hr IVPB DAILY [facility]; Protocol Stop: 09/14/18 10:01 Insulin Human Regular (Humulin R Low) 0 units SC [facility]; Protocol Last Admin: 09/06/18 21:14 Dose: 2 units Metoprolol Tartrate (Lopressor) 25 mg PO BID [facility] Last Admin: 09/06/18 18:05 Dose: 25 mg Pantoprazole Sodium (Protonix Ec Tab) 40 mg PO 0600 [facility] Potassium Chloride (K-Dur 20 Meq Er Tab) 20 meq PO DAILY [facility] Last Admin: 09/06/18 21:15 Dose: 20 meq Prednisone (Prednisone Tab) 5 mg PO DAILY [facility] Last Admin: 09/06/18 12:41 Dose: 5 mg Tacrolimus (Prograf Cap) 1 mg PO QPM [facility] Last Admin: 09/06/18 18:05 Dose: 1 mg Tacrolimus (Prograf Cap) 1 mg PO QAM [facility] Last Admin: 09/06/18 12:41 Dose: 1 mg Tobramycin Sulfate (Tobrex 0.3% Ophth Oint) 0 appl OS BID [facility] Last Admin: 09/06/18 18:05 Dose: 1 unit - Labs Labs: 09/06/18 09:00 09/06/18 09:00 - Constitutional Appears: Well, No Acute Distress - Head Exam Head Exam: ATRAUMATIC, NORMAL INSPECTION, NORMOCEPHALIC - Eye Exam Eye Exam: Normal appearance - ENT Exam ENT Exam: Normal External Ear Exam - Neck Exam Neck Exam: Normal Inspection - Respiratory Exam Respiratory Exam: NORMAL BREATHING PATTERN - Cardiovascular Exam Cardiovascular Exam: absent: JVD - GI/Abdominal Exam GI & Abdominal Exam: absent: Distended - Rectal Exam Rectal Exam: Deferred - Exam Additional comments: Deferred. - Extremities Exam Extremities Exam: Normal Inspection - Back Exam Back Exam: NORMAL INSPECTION - Neurological Exam Neurological Exam: Alert, Awake, Oriented x3 - Skin Skin Exam: Normal Color Assessment and Plan - Assessment and Plan (Free Text) Assessment: Abdominal pain-wall pain. ESRD. HTN. Anemia. CAD. Plan: Tylenol 650 mg PO x1.
[2018-09-07] MEDS: Pantoprazole 40 mg EC Tab PO SCH (05:35)
--- NOTE | 2018-09-07 08:11 | CP.PCM.PN ---
Subjective - Date & Time of Evaluation Date of Evaluation: 09/07/18 Time of Evaluation: 07:30 - Subjective Subjective: (covering for Dr. Knox) Patient is seen this morning. He was seen by data warehouse specialist for abdominal wall pain. He says that he has had this pain before. Objective - Vital Signs/Intake and Output Vital Signs (last 24 hours): Temp Pulse Resp BP Pulse Ox 98 F 86 18 110/70 96 09/07/18 05:59 09/07/18 05:59 09/07/18 05:59 09/07/18 05:59 09/07/18 05:59 Intake and Output: 09/07/18 09/07/18 06:59 18:59 Intake Total 600 Balance 600 - Medications Medications: Current Medications Atorvastatin Calcium (Lipitor) 10 mg PO DAILY [facility] Last Admin: 09/06/18 12:41 Dose: 10 mg Cyproheptadine HCl (Periactin) 4 mg PO BID [facility] Last Admin: 09/06/18 18:04 Dose: 4 mg Ezetimibe (Zetia) 10 mg PO DAILY [facility] Last Admin: 09/06/18 12:41 Dose: 10 mg Ceftriaxone Sodium (Rocephin 1 Gram Ivpb) 1 gm in 100 mls @ 100 mls/hr IVPB DAILY [facility]; Protocol Stop: 09/14/18 10:01 Insulin Human Regular (Humulin R Low) 0 units SC ACHS [facility]; Protocol Last Admin: 09/06/18 21:14 Dose: 2 units Metoprolol Tartrate (Lopressor) 25 mg PO BID [facility] Last Admin: 09/06/18 18:05 Dose: 25 mg Pantoprazole Sodium (Protonix Ec Tab) 40 mg PO 0600 [facility] Last Admin: 09/07/18 05:35 Dose: 40 mg Potassium Chloride (K-Dur 20 Meq Er Tab) 20 meq PO DAILY [facility] Last Admin: 09/06/18 21:15 Dose: 20 meq Prednisone (Prednisone Tab) 5 mg PO DAILY [facility] Last Admin: 09/06/18 12:41 Dose: 5 mg Tacrolimus (Prograf Cap) 1 mg PO QPM [facility] Last Admin: 09/06/18 18:05 Dose: 1 mg Tacrolimus (Prograf Cap) 1 mg PO QAM [facility] Last Admin: 09/06/18 12:41 Dose: 1 mg Tobramycin Sulfate (Tobrex 0.3% Ophth Oint) 0 appl OS BID [facility] Last Admin: 09/06/18 18:05 Dose: 1 unit - Labs Labs: 09/06/18 09:00 09/06/18 09:00 - Constitutional Appears: No Acute Distress - Head Exam Head Exam: ATRAUMATIC, NORMOCEPHALIC - Respiratory Exam Respiratory Exam: NORMAL BREATHING PATTERN - Cardiovascular Exam Cardiovascular Exam: +S1, +S2 - GI/Abdominal Exam GI & Abdominal Exam: Soft. absent: Distended - Extremities Exam Extremities Exam: absent: Pedal Edema - Neurological Exam Neurological Exam: Alert, Awake Assessment and Plan - Assessment and Plan (Free Text) Assessment: Sepsis secondary to K. pneumoniae UTI K. Pneumoniae bacteremia ESRD on HD s/p Right kidney transplant AAA Chronic anemia Plan: Patient is complaining of some pain in the abdominal wall. He says that he has had this pain before from sleeping in weird position. Patient had 1 bowel movement yesterday. No episodes of diarrhea. Gastroenterology on consultation. Patient is on IV antibiotics for sepsis secondary to K. pneumoniae urinary tract infection and bacteremia. Echocardiogram has been ordered. WBC count increased from 7 to 20 yesterday. Repeat CBC and chemistry. Will order CT abd/pelvis. Consultation for hematology for thrombocytopenia and urology for hematuria are pending.
[2018-09-07] MEDS: Insulin Reg-LOW-Coverage SC SCH ×3 (08:23→16:35)
[2018-09-07] MEDS ORDERED: Morphine 2 mg/ml ISec IVP ONE (08:48)
[2018-09-07] MEDS: Potassium Chloride 20 mEq ER Tab PO SCH (09:25)
[2018-09-07] MEDS: Tobramycin 0.3% OPH OINT OS SCH ×3 (09:25→18:04)
[2018-09-07] MEDS: cefTRIAXone 1 gm 1 GM/100 ML BAG IVPB SCH (09:26)
[2018-09-07 09:30] LABS: BASO # 0.01 K/mm3 (0.0-2.0); BASO % 0.1 % (0.0-3.0); HEMOGLOBIN 11.4 g/dL (14.0-18.0); LYMPH # 1.2 (1.2-3.4); LYMPH % 7.1 % (22.0-35.0); MEAN CELL VOLUME 74.6 fl (80.0-105.0); MEAN CORPUSCULAR HEMOGLOBIN 21.9 pg (25.0-35.0); MEAN CORPUSCULAR HGB CONC 29.4 g/dl (31.0-37.0); MONO # 0.5 (0.1-0.6); PLATELET COUNT 59 10^3/uL (120.0-450.0); RED CELL DISTRIBUTION WIDTH 19.6 % (11.5-14.5); WHITE BLOOD COUNT 16.5 10^3/uL (4.5-11.0)
[2018-09-07 09:51] LABS: ALB/GLOB RATIO 0.7 (1.1-1.8); ALBUMIN 2.3 g/dL (3.0-4.8); CALCIUM 8.3 mg/dL (8.4-10.5)
--- NOTE | 2018-09-07 12:20 | CT ---
Date of service: 09/07/2018 PROCEDURE: CT Abdomen and Pelvis without intravenous contrast HISTORY: abdominal pain COMPARISON: 09/03/2018 TECHNIQUE: Without contrast.. Contrast dose: Radiation dose: Total exam DLP = 234.89 mGy-cm. This CT exam was performed using one or more of the following dose reduction techniques: Automated exposure control, adjustment of the mA and/or kV according to patient size, and/or use of iterative reconstruction technique. The study is limited by lack of abdominal fat and lack of IV contrast. FINDINGS: LOWER THORAX: Small pleural effusions. There is a new small focal area of consolidation in the periphery of the right lower lobe. LIVER: Unremarkable. No gross lesion or ductal dilatation. GALLBLADDER AND BILE DUCTS: Not visible PANCREAS: Difficult to visualize SPLEEN: Unremarkable. ADRENALS: Unremarkable. No mass. KIDNEYS AND URETERS: Large polycystic kidneys. Right lower quadrant renal transplant VASCULATURE: Unremarkable. No aortic aneurysm. There is a large infrarenal abdominal aortic aneurysm measuring 13 cm in length and 9 cm in diameter BOWEL: Unremarkable. No obstruction. No gross mural thickening. APPENDIX: Unremarkable. Normal appendix. PERITONEUM: Unremarkable. No free fluid. No free air. LYMPH NODES: Unremarkable. No enlarged lymph nodes. BLADDER: Unremarkable. REPRODUCTIVE: Unremarkable. BONES: No acute fracture. OTHER FINDINGS: None. IMPRESSION: There is a large infrarenal abdominal aortic aneurysm measuring 13 cm in length and 9 cm in diameter No acute intra-abdominal findings
--- NOTE | 2018-09-07 12:34 | PN ---
DATE: 09/07/2018 SUBJECTIVE: The patient is in bed, in no acute distress, nontoxic; however, chronically ill and weak and cachectic. PHYSICAL EXAMINATION VITAL SIGNS: Temperature is 98, blood pressure is 110/70, respiratory rate of 20 and heart rate of 93. HEENT: Unremarkable. NECK: Supple. LABORATORY DATA: Reveals the patient's white of 16,500, hemoglobin of 11, and platelets of 59. Chemistry reveals the BUN of 38, and creatinine of 3.4. Urinalysis is noted. Tacrolimus level of 42 is noted, which is high. Microbiology reveals the blood cultures and Klebsiella pneumonia relatively pansensitive and urine culture is also Klebsiella pneumonia. 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 The patient has CAT scan of the abdomen and pelvis, overall doing better. This patient who is chronically ill, cachectic with body mass index of more than 14 and end-stage renal disease on hemodialysis, history of right kidney transplant, abdominal aortic aneurysm, chronic anemia, and we will repeat the blood cultures and check on the echo. Continue the ceftriaxone. Urology evaluation should be considered. The patient's renal function is improving at 3.4. We will order a prostate-specific antigen, rule out underlying prostate disease. The patient who has mild elevation of alk phos and liver function tests. CAT scan of the abdomen and pelvis on the 09/03/2018, does not describe any gallbladder disease. Gall bladder and bile ducts were unremarkable. The patient does have severe bilateral polycystic kidney disease, evidence of right lower quadrant renal transplant is noted and extensive arthrosclerosis and severe aneurysmal dilatation of distal abdominal aorta. The patient had human immunodeficiency virus test that is negative and RPR that is negative in the past. Prognosis is poor. Bishop Squires MD
--- NOTE | 2018-09-07 14:49 | PN ---
DATE: 09/07/2018 This is a Nephrology coverage for Dr. Wheeler. SUBJECTIVE: The patient has no complaints of any chest pain, no shortness of breath, no headaches. PHYSICAL EXAMINATION: VITAL SIGNS: Temperature is 98, pulse of 88, blood pressure is 135/87, and respirations 18. GENERAL: The patient is lying in bed, flat, comfortable. HEENT: No oral lesion. Anicteric sclerae. Moist mucosa. NECK: No JVD, adenopathy, or thyromegaly. CARDIOVASCULAR: S1 and S2, regular. No murmurs, rubs, or gallops. LUNGS: Clear to auscultation bilaterally. No wheeze, rales, or rhonchi. ABDOMEN: Bowel sounds are positive, soft, nontender and nondistended. EXTREMITIES: no cyanosis, clubbing or edema. LABS: White count of 16.5, hemoglobin 11.4, platelet count of 69, creatinine 3.4. CT of the abdomen and pelvis shows a large infrarenal AAA that is 13 cm. ASSESSMENT: 1. End-stage renal disease, on hemodialysis. 2. Abdominal aortic aneurysm, 13 cm x 9 cm. 3. Sepsis, secondary to Klebsiella. 4. Polycystic kidney disease. 5. Status post kidney transplant. 6. Sepsis. 7. Anemia, chronic. 8. Secondary hyperparathyroidism. 9. Left arteriovenous fistula. 10. Hypertension. 11. Thrombocytopenia. PLAN: The patient is currently comfortable. He does have an elevated white cell count, most likely from his sepsis. The patient's platelet count is low, which is fairly new. The patient is on prednisone and tacrolimus for his transplant. He is on Zetia for his dyslipidemia. He is due for dialysis tomorrow. He did fairly well on dialysis yesterday. His normal day for dialysis is Saturday, Saturday, Saturday. Jaxon Bennett MD
--- NOTE | 2018-09-07 15:49 | PN ---
DATE: 09/07/2018 CARDIOLOGY FOLLOWUP SUBJECTIVE: His abdominal wall pain is noted. There is no angina noted. PHYSICAL EXAMINATION: VITAL SIGNS: Blood pressure 110 to 135 systolic, heart rates in the 80s. NECK: Negative JVD. LUNGS: Without rales. HEART: S1 and S2. EXTREMITIES: Without change. LABORATORY DATA: Hemoglobin is 11.4, potassium is 4. IMPRESSION: 1. End-stage renal disease. 2. Status post renal transplant. 3. Aortic stenosis. 4. Abdominal aneurysm. 5. Sepsis. PLAN: Given these findings, the patient is hemodynamically stable. Carlos Shane MD
--- NOTE | 2018-09-07 20:54 | CP.PCM.PN ---
Subjective - Date & Time of Evaluation Date of Evaluation: 09/06/18 Time of Evaluation: 19:00 - Subjective Subjective: Has abdominal pain. Objective - Vital Signs/Intake and Output Vital Signs (last 24 hours): Temp Pulse Resp BP Pulse Ox 97.9 F 81 18 131/80 97 09/07/18 18:00 09/07/18 18:00 09/07/18 18:00 09/07/18 18:00 09/07/18 18:00 Intake and Output: 09/07/18 09/08/18 18:59 06:59 Intake Total 100 580 Output Total 0 Balance 100 580 - Medications Medications: Current Medications Atorvastatin Calcium (Lipitor) 10 mg PO DAILY [facility] Last Admin: 09/07/18 09:26 Dose: 10 mg Cyproheptadine HCl (Periactin) 4 mg PO BID [facility] Last Admin: 09/07/18 17:53 Dose: 4 mg Ezetimibe (Zetia) 10 mg PO DAILY [facility] Last Admin: 09/07/18 09:25 Dose: 10 mg Ceftriaxone Sodium (Rocephin 1 Gram Ivpb) 1 gm in 100 mls @ 100 mls/hr IVPB DAILY [facility]; Protocol Stop: 09/14/18 10:01 Last Admin: 09/07/18 09:26 Dose: 100 mls/hr Insulin Human Regular (Humulin R Low) 0 units SC ACHS [facility]; Protocol Last Admin: 09/07/18 16:35 Dose: Not Given Metoprolol Tartrate (Lopressor) 25 mg PO BID [facility] Last Admin: 09/07/18 17:53 Dose: 25 mg Morphine Sulfate (Morphine) 1 mg IVP Q4H PRN PRN Reason: Pain, severe (8-10) Pantoprazole Sodium (Protonix Ec Tab) 40 mg PO 0600 [facility] Last Admin: 09/07/18 05:35 Dose: 40 mg Potassium Chloride (K-Dur 20 Meq Er Tab) 20 meq PO DAILY [facility] Last Admin: 09/07/18 09:25 Dose: 20 meq Prednisone (Prednisone Tab) 5 mg PO DAILY [facility] Last Admin: 09/07/18 09:28 Dose: 5 mg Tacrolimus (Prograf Cap) 1 mg PO QPM [facility] Last Admin: 09/07/18 17:53 Dose: 1 mg Tacrolimus (Prograf Cap) 1 mg PO QAM [facility] Last Admin: 09/07/18 09:26 Dose: 1 mg Tobramycin Sulfate (Tobrex 0.3% Ophth Oint) 0 appl OS BID [facility] Last Admin: 09/07/18 18:04 Dose: Not Given - Labs Labs: 09/07/18 09:10 09/07/18 09:10 - Constitutional Appears: Cachectic - Head Exam Head Exam: ATRAUMATIC - Eye Exam Eye Exam: Normal appearance - ENT Exam ENT Exam: Mucous Membranes Dry - Respiratory Exam Respiratory Exam: NORMAL BREATHING PATTERN - Cardiovascular Exam Cardiovascular Exam: +S1, +S2 - GI/Abdominal Exam GI & Abdominal Exam: Normal Bowel Sounds Assessment and Plan (1) Thrombocytopenia Assessment & Plan: multifactorial sepsis, immunosuppression consider holding tacrolimus if plt < 50,000 Status: Acute (2) Anemia Assessment & Plan: chronic disease, immunosuppresion anemia of CKD - MARK per renal transfusion support PRN Status: Chronic (3) Leukocytosis Assessment & Plan: on antibiotics Status: Acute
--- NOTE | 2018-09-07 20:57 | CP.PCM.PN ---
Subjective - Date & Time of Evaluation Date of Evaluation: 09/07/18 Time of Evaluation: 17:00 - Subjective Subjective: Has abdominal pain. Objective - Vital Signs/Intake and Output Vital Signs (last 24 hours): Temp Pulse Resp BP Pulse Ox 97.9 F 81 18 131/80 97 09/07/18 18:00 09/07/18 18:00 09/07/18 18:00 09/07/18 18:00 09/07/18 18:00 Intake and Output: 09/07/18 09/08/18 18:59 06:59 Intake Total 100 580 Output Total 0 Balance 100 580 - Medications Medications: Current Medications Atorvastatin Calcium (Lipitor) 10 mg PO DAILY [facility] Last Admin: 09/07/18 09:26 Dose: 10 mg Cyproheptadine HCl (Periactin) 4 mg PO BID [facility] Last Admin: 09/07/18 17:53 Dose: 4 mg Ezetimibe (Zetia) 10 mg PO DAILY [facility] Last Admin: 09/07/18 09:25 Dose: 10 mg Ceftriaxone Sodium (Rocephin 1 Gram Ivpb) 1 gm in 100 mls @ 100 mls/hr IVPB DAILY [facility]; Protocol Stop: 09/14/18 10:01 Last Admin: 09/07/18 09:26 Dose: 100 mls/hr Insulin Human Regular (Humulin R Low) 0 units SC ACHS [facility]; Protocol Last Admin: 09/07/18 16:35 Dose: Not Given Metoprolol Tartrate (Lopressor) 25 mg PO BID [facility] Last Admin: 09/07/18 17:53 Dose: 25 mg Morphine Sulfate (Morphine) 1 mg IVP Q4H PRN PRN Reason: Pain, severe (8-10) Pantoprazole Sodium (Protonix Ec Tab) 40 mg PO 0600 [facility] Last Admin: 09/07/18 05:35 Dose: 40 mg Potassium Chloride (K-Dur 20 Meq Er Tab) 20 meq PO DAILY [facility] Last Admin: 09/07/18 09:25 Dose: 20 meq Prednisone (Prednisone Tab) 5 mg PO DAILY [facility] Last Admin: 09/07/18 09:28 Dose: 5 mg Tacrolimus (Prograf Cap) 1 mg PO QPM [facility] Last Admin: 09/07/18 17:53 Dose: 1 mg Tacrolimus (Prograf Cap) 1 mg PO QAM [facility] Last Admin: 09/07/18 09:26 Dose: 1 mg Tobramycin Sulfate (Tobrex 0.3% Ophth Oint) 0 appl OS BID [facility] Last Admin: 09/07/18 18:04 Dose: Not Given - Labs Labs: 09/07/18 09:10 09/07/18 09:10 - Head Exam Head Exam: ATRAUMATIC - Eye Exam Eye Exam: Normal appearance - ENT Exam ENT Exam: Mucous Membranes Dry - Respiratory Exam Respiratory Exam: NORMAL BREATHING PATTERN - Cardiovascular Exam Cardiovascular Exam: +S1, +S2 - GI/Abdominal Exam GI & Abdominal Exam: Normal Bowel Sounds Assessment and Plan (1) Thrombocytopenia Assessment & Plan: multifactorial sepsis, immunosuppression consider holding tacrolimus if plt < 50,000 Status: Acute (2) Anemia Assessment & Plan: chronic disease Status: Chronic (3) Leukocytosis Assessment & Plan: on antibiotics Status: Acute
[2018-09-08] MEDS: Morphine 2 mg/ml ISec IVP PRN ×2 (04:58→09:24)
[2018-09-08 08:41] LABS: BASO # 0.01 K/mm3 (0.0-2.0); BASO % 0.1 % (0.0-3.0); LYMPH # 1.5 (1.2-3.4); LYMPH % 9.7 % (22.0-35.0); MEAN CELL VOLUME 74.9 fl (80.0-105.0); MEAN CORPUSCULAR HEMOGLOBIN 21.9 pg (25.0-35.0); MEAN CORPUSCULAR HGB CONC 29.3 g/dl (31.0-37.0); MONO # 0.7 (0.1-0.6); MONO % 4.8 % (1.0-6.0); PLATELET COUNT 71 10^3/uL (120.0-450.0); RBC 5.02 10^6/uL (3.5-6.1); WHITE BLOOD COUNT 15.2 10^3/uL (4.5-11.0)
[2018-09-08 08:53] LABS: ALB/GLOB RATIO 0.6 (1.1-1.8); ALBUMIN 2.3 g/dL (3.0-4.8); ALT/SGPT 19 U/L (7-56); AST/SGOT 24 U/L (17-59); BLOOD UREA NITROGEN 47 mg/dL (7-21); CALCIUM 8.5 mg/dL (8.4-10.5); GFR NON-AFRICAN AMERICAN 17
[2018-09-08] MEDS: Insulin Reg-LOW-Coverage SC SCH ×4 (09:17→22:17)
[2018-09-08] MEDS: Tobramycin 0.3% OPH OINT OS SCH (10:13)
--- NOTE | 2018-09-08 13:23 | CP.PCM.PN ---
<Papi Dunlap - Last Filed: 09/08/18 13:20> Subjective - Date & Time of Evaluation Date of Evaluation: 09/08/18 Time of Evaluation: 13:20 - Subjective Subjective: Nephrology Progress Note (Dr. Wheeler's Service) Patient seen and assessed bedside in HD. No acute events overnight. Patient endorses moderate abdominal pain but denies any N/V/C/D. Further 12 point ROS was reviewed and unremarkable at this time. Objective - Vital Signs/Intake and Output Vital Signs (last 24 hours): Temp Pulse Resp BP Pulse Ox 97.5 F L 77 18 159/113 H 97 09/08/18 05:37 09/08/18 05:37 09/08/18 05:37 09/08/18 05:37 09/08/18 05:37 Intake and Output: 09/08/18 09/08/18 06:59 18:59 Intake Total 1820 Output Total 0 Balance 1820 - Medications Medications: Current Medications Atorvastatin Calcium (Lipitor) 10 mg PO DAILY [facility] Last Admin: 09/07/18 09:26 Dose: 10 mg Cyproheptadine HCl (Periactin) 4 mg PO BID [facility] Last Admin: 09/08/18 10:13 Dose: Not Given Ezetimibe (Zetia) 10 mg PO DAILY [facility] Last Admin: 09/07/18 09:25 Dose: 10 mg Ceftriaxone Sodium (Rocephin 1 Gram Ivpb) 1 gm in 100 mls @ 100 mls/hr IVPB DAILY [facility]; Protocol Stop: 09/14/18 10:01 Last Admin: 09/07/18 09:26 Dose: 100 mls/hr Insulin Human Regular (Humulin R Low) 0 units SC ACHS [facility]; Protocol Last Admin: 09/08/18 11:30 Dose: Not Given Metoprolol Tartrate (Lopressor) 25 mg PO BID [facility] Last Admin: 09/08/18 10:12 Dose: Not Given Morphine Sulfate (Morphine) 1 mg IVP Q4H PRN PRN Reason: Pain, severe (8-10) Last Admin: 09/08/18 09:24 Dose: 1 mg Pantoprazole Sodium (Protonix Ec Tab) 40 mg PO 0600 [facility] Last Admin: 09/07/18 05:35 Dose: 40 mg Potassium Chloride (K-Dur 20 Meq Er Tab) 20 meq PO DAILY [facility] Last Admin: 09/07/18 09:25 Dose: 20 meq Prednisone (Prednisone Tab) 5 mg PO DAILY [facility] Last Admin: 09/07/18 09:28 Dose: 5 mg Tacrolimus (Prograf Cap) 1 mg PO QAM [facility] Last Admin: 09/07/18 09:26 Dose: 1 mg Tobramycin Sulfate (Tobrex 0.3% Ophth Oint) 0 appl OS BID [facility] Last Admin: 09/08/18 10:13 Dose: Not Given - Labs Labs: 09/08/18 08:20 09/08/18 08:20 - Constitutional Appears: No Acute Distress, Chronically Ill - Head Exam Head Exam: ATRAUMATIC - Eye Exam Eye Exam: EOMI - ENT Exam ENT Exam: Mucous Membranes Moist - Neck Exam Neck Exam: Full ROM - Respiratory Exam Respiratory Exam: Clear to Ausculation Bilateral, NORMAL BREATHING PATTERN - Cardiovascular Exam Cardiovascular Exam: REGULAR RHYTHM, +S1, +S2 - GI/Abdominal Exam GI & Abdominal Exam: Soft, Normal Bowel Sounds, Pulsatile Mass (Hypogastric/RLQ area). absent: Tenderness - Extremities Exam Extremities Exam: absent: Calf Tenderness, Pedal Edema Additional comments: HD access of left arm with positive bruit and negative for signs of any clinical infection of the surrounding soft tissues - Neurological Exam Neurological Exam: Alert, Awake, Oriented x3 - Psychiatric Exam Psychiatric exam: Normal Affect, Normal Mood - Skin Skin Exam: Dry, Warm Assessment and Plan - Assessment and Plan (Free Text) Assessment: 67 year old male with a past medical history significant for ADPKD s/p renal allograft (2006), ESRD on HD MWF, post-transplant DM2, HTN, unrepaired severe , and unrepaired infrarenal AAA who was admitted for lethargy and persistent diarrhea. Nephrology was consulted for ESRD care. Plan: 1. ESRD on HD -HD today per routine -Relatively stable electrolyte and volume status currently -Continue to monitor I/O's -Avoid nephrotoxic agents -Renally dose medications as indicated -Will restart Calcitriol with HD 2. Diarrhea -Resolved 3. HTN -Continue home Metoprolol -Holding home Clonidine in setting of hypotension -Currently with adequate control 4. Klebsiella Bacteremia secondary to Klebsiella UTI -Continue Rocephin as ordered -Further management as per ID 5. Immunosuppression -Continue AM Tacrolimus as ordered -Discontinue PM Tacrolimus -Continue Prednisone 5mg daily to avoid adrenal insufficiency 6. AAA -Can use IV contrast for further evaluation, should this be indicated -IR consulted, all recommendations appreciated 7. Thrombocytopenia -Hematology consulted, all recommendations appreciated 8. Anemia in ESRD -Continues to be at goal -Will continue long acting EPO as outpatient Patient seen and case discussed with attending, Dr. Wheeler. Papi Dunlap PGY2 <Dandy Wheeler - Last Filed: 09/09/18 08:13> Objective - Vital Signs/Intake and Output Vital Signs (last 24 hours): Temp Pulse Resp BP Pulse Ox 98.2 F 65 18 120/84 98 09/09/18 06:00 09/09/18 06:00 09/09/18 06:00 09/09/18 06:00 09/09/18 06:00 Intake and Output: 09/09/18 09/09/18 06:59 18:59 Intake Total 60 Balance 60 - Medications Medications: Current Medications Acetaminophen (Tylenol 325mg Tab) 650 mg PO Q6 PRN PRN Reason: TEMP>=99.5F Acetaminophen (Tylenol 650 Mg Supp) 650 mg RC Q6H PRN PRN Reason: TEMP>=99.5F Atorvastatin Calcium (Lipitor) 10 mg PO DAILY [facility] Last Admin: 09/08/18 15:19 Dose: 10 mg Calcitriol (Rocaltrol) 0.75 mcg PO MWF [facility] Last Admin: 09/08/18 15:19 Dose: 0.75 mcg Cyproheptadine HCl (Periactin) 4 mg PO BID [facility] Last Admin: 09/08/18 18:08 Dose: Not Given Ezetimibe (Zetia) 10 mg PO DAILY [facility] Last Admin: 09/08/18 15:20 Dose: 10 mg Ceftriaxone Sodium (Rocephin 1 Gram Ivpb) 1 gm in 100 mls @ 100 mls/hr IVPB DAILY [facility]; Protocol Stop: 09/14/18 10:01 Last Admin: 09/08/18 15:30 Dose: Not Given Insulin Human Regular (Humulin R Low) 0 units SC [facility]; Protocol Last Admin: 09/08/18 22:17 Dose: Not Given Levalbuterol HCl (Xopenex) 0.63 mg IH [id number] [facility] Last Admin: 09/09/18 07:38 Dose: 0.63 mg Metoprolol Tartrate (Lopressor) 25 mg PO BID [facility] Last Admin: 09/08/18 18:08 Dose: Not Given Morphine Sulfate (Morphine) 1 mg IVP Q4H PRN PRN Reason: Pain, severe (8-10) Last Admin: 09/09/18 05:28 Dose: 1 mg Ondansetron HCl (Zofran Inj) 4 mg IVP Q4H PRN PRN Reason: Nausea/Vomiting Pantoprazole Sodium (Protonix Ec Tab) 40 mg PO 0600 [facility] Last Admin: 09/09/18 05:28 Dose: 40 mg Prednisone (Prednisone Tab) 5 mg PO DAILY [facility] Last Admin: 09/08/18 15:20 Dose: 5 mg Tacrolimus (Prograf Cap) 1 mg PO QAM [facility] Last Admin: 09/08/18 15:22 Dose: 1 mg Tobramycin Sulfate (Tobrex 0.3% Ophth Oint) 0 appl OS BID [facility] Last Admin: 09/08/18 10:13 Dose: Not Given - Labs Labs: 09/09/18 07:15 09/09/18 07:15 Assessment and Plan (1) ESRD (end stage renal disease) Status: Chronic (2) Diarrhea Status: Acute (3) Failure to thrive Status: Acute (4) HTN (hypertension) Status: Acute (5) UTI (urinary tract infection) Status: Acute (6) Anemia Status: Chronic (7) Immunosuppression Status: Acute (8) AAA (abdominal aortic aneurysm) Status: Chronic (9) Renal transplant, status post Status: Chronic Attending/Attestation - Attestation I have personally seen and examined this patient.: Yes I have fully participated in the care of the patient.: Yes I have reviewed all pertinent clinical information, including history, physical exam and plan: Yes Notes (Text): Patient seen and examined; I agree with the resident's note as above with the following additions/edits: 67 yo M w/ htn, post-transplant DM, s/p renal allograft (2006, now failed), unrepaired large AAA, severe , and ESRD on HD, admitted with severe sepsis; Patient seen on HD; not eating much per nursing staff; no longer with abd pain; no issues breathing; Relatively stable electrolyte status; mild hypokalemia noted over the weekend, no need for aggressive supplementation unless patient again having GI losses; will correct with higher K bath on HD; otherwise, no evidence of volume excess on exam despite not getting UF on HD; again not removing fluid on HD today as BP is borderline hypotensive; On ceftriaxone for Kleb pneumo in blood and urine; no renal dose adjustment needed; will likely need prolonged antibiotic course given his renal transplant status; As mentioned previously, patient has again been deemed ESRD since the past few months but has still had significant residual renal function which we were trying to preserve by keeeping on immunosuppression; however, given overall failure to thrive, suspicion for malignancy, also now with sepsis and thrombocytopenia, we are tapering down tacrolimus slowly; will decrease dose to 1 mg daily, continue prednisone 5 mg daily for now; -Continue metoprolol 25 mg bid; -Monitor CBC (on long acting MARK as outpatient, no need to dose currently); -Continue to hold phos binders;
[2018-09-08 14:17] LABS: FOLATE 10.8 ng/mL
[2018-09-08] MEDS: Potassium Chloride 20 mEq ER Tab PO SCH (15:19)
[2018-09-08] MEDS: cefTRIAXone 1 gm 1 GM/100 ML BAG IVPB SCH ×2 (15:20→15:30)
--- NOTE | 2018-09-08 15:21 | CP.PCM.PN ---
<Elbert Obrien - Last Filed: 09/08/18 15:46> Subjective - Date & Time of Evaluation Date of Evaluation: 09/08/18 Time of Evaluation: 09:50 - Subjective Subjective: Elbert Obrien D.O. PGY-3, Internal Medicine Resident, Infectious Disease Progress Note 67-year-old -[place] male with a past medical history of polycystic kidney disease status post renal transplant in 2006, posttransplant diabetes me llitus, status post aortic valve replacement for severe aortic stenosis, large unrepaired AAA, end-stage renal disease on hemodialysis Saturday/ Saturday/Saturday who presents to the emergency department for lethargy and hypotension. Infectious disease consultation was requested for concerns of urinary tract infection. Patient was seen and examined at bedside. States feeling marginally better. Eye less red. Objective - Vital Signs/Intake and Output Vital Signs (last 24 hours): Temp Pulse Resp BP Pulse Ox 97.5 F L 77 18 159/113 H 97 09/08/18 05:37 09/08/18 05:37 09/08/18 05:37 09/08/18 05:37 09/08/18 05:37 Intake and Output: 09/08/18 09/08/18 06:59 18:59 Intake Total 1820 Output Total 0 Balance 1820 - Medications Medications: Current Medications Atorvastatin Calcium (Lipitor) 10 mg PO DAILY [facility] Last Admin: 09/07/18 09:26 Dose: 10 mg Calcitriol (Rocaltrol) 0.75 mcg PO F [facility] Cyproheptadine HCl (Periactin) 4 mg PO BID [facility] Last Admin: 09/08/18 10:13 Dose: Not Given Ezetimibe (Zetia) 10 mg PO DAILY [facility] Last Admin: 09/07/18 09:25 Dose: 10 mg Ceftriaxone Sodium (Rocephin 1 Gram Ivpb) 1 gm in 100 mls @ 100 mls/hr IVPB DAILY [facility]; Protocol Stop: 09/14/18 10:01 Last Admin: 09/07/18 09:26 Dose: 100 mls/hr Insulin Human Regular (Humulin R Low) 0 units SC ACHS [facility]; Protocol Last Admin: 09/08/18 11:30 Dose: Not Given Metoprolol Tartrate (Lopressor) 25 mg PO BID [facility] Last Admin: 09/08/18 10:12 Dose: Not Given Morphine Sulfate (Morphine) 1 mg IVP Q4H PRN PRN Reason: Pain, severe (8-10) Last Admin: 09/08/18 09:24 Dose: 1 mg Pantoprazole Sodium (Protonix Ec Tab) 40 mg PO 0600 [facility] Last Admin: 09/07/18 05:35 Dose: 40 mg Potassium Chloride (K-Dur 20 Meq Er Tab) 20 meq PO DAILY [facility] Last Admin: 09/07/18 09:25 Dose: 20 meq Prednisone (Prednisone Tab) 5 mg PO DAILY [facility] Last Admin: 09/07/18 09:28 Dose: 5 mg Tacrolimus (Prograf Cap) 1 mg PO QAM [facility] Last Admin: 09/07/18 09:26 Dose: 1 mg Tobramycin Sulfate (Tobrex 0.3% Ophth Oint) 0 appl OS BID [facility] Last Admin: 09/08/18 10:13 Dose: Not Given - Labs Labs: 09/08/18 08:20 09/08/18 08:20 - Constitutional Appears: Cachectic, Chronically Ill male - Head Exam Head Exam: ATRAUMATIC, NORMOCEPHALIC, temporal wasting noted - Eye Exam Eye Exam: left eye irritation improving - ENT Exam ENT Exam: Mucous Membranes Moist - Neck Exam Neck exam: Positive for: Normal Inspection - Respiratory Exam Respiratory Exam: absent: Rales, Rhonchi, Wheezes - Cardiovascular Exam Cardiovascular Exam: +S1, +S2. absent: Rubs - GI/Abdominal Exam GI & Abdominal Exam: palpable abdominal aneurysm, otherwise soft, cachectic - Extremities Exam Additional comments: AVF left upper extremity with palpable thrill - Neuro Exam Neuro exam: awake, alert - Psychiatric Exam Psychiatric exam: Normal Affect, Normal Mood - Skin Skin Exam: Dry, Warm Assessment and Plan - Assessment and Plan (Free Text) Assessment: 67-year-old -[place] male with a past medical history of polycystic kidney disease status post renal transplant in 2006, posttransplant diabetes mellitus, status post aortic valve replacement for severe aortic stenosis, large unrepaired AAA, end-stage renal disease on hemodialysis Saturday/ Saturday/Saturday who presents to the emergency department for lethargy and hypotension. Infectious disease consultation was requested for concerns of urinary tract infection. Plan: Klebsiella bacteremia 2/2 klebsiella urine Polycystic kidney disease status post renal transplant status post sepsis with ATN status post reinitiation of hemodialysis Saturday/Saturday/Saturday Left eye redness Aortic stenosis Posttransplantation diabetes mellitus Afebrile Leukocytosis downtrending On ceftriaxone Echo to be done today Repeat BCx negative / day 1 PSA within normal limits so prostatitis unlikely GI note reviewed, recs appreciated, no plan for interventions Nephro following patient, recs appreciated We will follow with you Patient was seen and examined and case to be discussed at length with attending physician Thank you for the pleasure participating in the care of this interesting patient <Bishop Squires - Last Filed: 09/08/18 20:27> Objective - Vital Signs/Intake and Output Vital Signs (last 24 hours): Temp Pulse Resp BP Pulse Ox 97.5 F L 74 18 159/113 H 97 09/08/18 05:37 09/08/18 19:52 09/08/18 05:37 09/08/18 05:37 09/08/18 05:37 - Medications Medications: Current Medications Acetaminophen (Tylenol 325mg Tab) 650 mg PO Q6 PRN PRN Reason: TEMP>=99.5F Acetaminophen (Tylenol 650 Mg Supp) 650 mg RC Q6H PRN PRN Reason: TEMP>=99.5F Atorvastatin Calcium (Lipitor) 10 mg PO DAILY [facility] Last Admin: 09/08/18 15:19 Dose: 10 mg Calcitriol (Rocaltrol) 0.75 mcg PO MWF [facility] Last Admin: 09/08/18 15:19 Dose: 0.75 mcg Cyproheptadine HCl (Periactin) 4 mg PO BID [facility] Last Admin: 09/08/18 18:08 Dose: Not Given Ezetimibe (Zetia) 10 mg PO DAILY [facility] Last Admin: 09/08/18 15:20 Dose: 10 mg Ceftriaxone Sodium (Rocephin 1 Gram Ivpb) 1 gm in 100 mls @ 100 mls/hr IVPB DAILY [facility]; Protocol Stop: 09/14/18 10:01 Last Admin: 09/08/18 15:30 Dose: Not Given Insulin Human Regular (Humulin R Low) 0 units SC [facility]; Protocol Last Admin: 09/08/18 16:16 Dose: Not Given Levalbuterol HCl (Xopenex) 0.63 mg IH [id number] [facility] Last Admin: 09/08/18 19:51 Dose: 0.63 mg Metoprolol Tartrate (Lopressor) 25 mg PO BID [facility] Last Admin: 09/08/18 18:08 Dose: Not Given Morphine Sulfate (Morphine) 1 mg IVP Q4H PRN PRN Reason: Pain, severe (8-10) Last Admin: 09/08/18 09:24 Dose: 1 mg Ondansetron HCl (Zofran Inj) 4 mg IVP Q4H PRN PRN Reason: Nausea/Vomiting Pantoprazole Sodium (Protonix Ec Tab) 40 mg PO 0600 [facility] Last Admin: 09/07/18 05:35 Dose: 40 mg Prednisone (Prednisone Tab) 5 mg PO DAILY [facility] Last Admin: 09/08/18 15:20 Dose: 5 mg Tacrolimus (Prograf Cap) 1 mg PO QAM [facility] Last Admin: 09/08/18 15:22 Dose: 1 mg Tobramycin Sulfate (Tobrex 0.3% Ophth Oint) 0 appl OS BID [facility] Last Admin: 09/08/18 10:13 Dose: Not Given - Labs Labs: 09/08/18 08:20 09/08/18 08:20 Attending/Attestation - Attestation I have personally seen and examined this patient.: Yes I have fully participated in the care of the patient.: Yes I have reviewed all pertinent clinical information, including history, physical exam and plan: Yes
--- NOTE | 2018-09-08 15:48 | PN ---
DATE: 09/08/2018 SUBJECTIVE: The patient is without distress. No shortness of breath noted. PHYSICAL EXAMINATION: VITAL SIGNS: Blood pressure is 150/110, which maybe inaccurate. NECK: Negative JVD. LUNGS: Without rales. HEART: S1 and S2. EXTREMITIES: Without edema. LABORATORY DATA: Hemoglobin is 11 and white count 15. Potassium is 4.2. IMPRESSION: 1. End-stage renal disease. 2. History of aortic stenosis. 3. Abdominal aortic aneurysm. 4. Sepsis. Given these findings, the patient is hemodynamically stable. We will discontinue telemetry today. We will review echocardiogram. Carlos Shane MD
--- NOTE | 2018-09-08 17:05 | CP.PCM.PN ---
Subjective - Date & Time of Evaluation Date of Evaluation: 09/08/18 Time of Evaluation: 16:56 - Subjective Subjective: Medicine progress note - Dora PGY - 2 Patient seen and examined at bedside. no acute overnight events. Patient is refusing to eat today, and is being non-complaint with IV antibiotics. Does not have any acute complaints. Objective - Vital Signs/Intake and Output Vital Signs (last 24 hours): Temp Pulse Resp BP Pulse Ox 97.5 F L 103 H 18 159/113 H 97 09/08/18 05:37 09/08/18 10:00 09/08/18 05:37 09/08/18 05:37 09/08/18 05:37 Intake and Output: 09/08/18 09/08/18 06:59 18:59 Intake Total 1820 Output Total 0 Balance 1820 - Medications Medications: Current Medications Acetaminophen (Tylenol 325mg Tab) 650 mg PO Q6 PRN PRN Reason: TEMP>=99.5F Acetaminophen (Tylenol 650 Mg Supp) 650 mg RC Q6H PRN PRN Reason: TEMP>=99.5F Atorvastatin Calcium (Lipitor) 10 mg PO DAILY [facility] Last Admin: 09/08/18 15:19 Dose: 10 mg Calcitriol (Rocaltrol) 0.75 mcg PO MWF [facility] Last Admin: 09/08/18 15:19 Dose: 0.75 mcg Cyproheptadine HCl (Periactin) 4 mg PO BID [facility] Last Admin: 09/08/18 10:13 Dose: Not Given Ezetimibe (Zetia) 10 mg PO DAILY [facility] Last Admin: 09/08/18 15:20 Dose: 10 mg Ceftriaxone Sodium (Rocephin 1 Gram Ivpb) 1 gm in 100 mls @ 100 mls/hr IVPB DAILY [facility]; Protocol Stop: 09/14/18 10:01 Last Admin: 09/08/18 15:30 Dose: Not Given Insulin Human Regular (Humulin R Low) [address] [facility]; Protocol Last Admin: 09/08/18 16:16 Dose: Not Given Levalbuterol HCl (Xopenex) 0.63 mg IH [id number] [facility] Metoprolol Tartrate (Lopressor) 25 mg PO BID [facility] Last Admin: 09/08/18 10:12 Dose: Not Given Morphine Sulfate (Morphine) 1 mg IVP Q4H PRN PRN Reason: Pain, severe (8-10) Last Admin: 09/08/18 09:24 Dose: 1 mg Ondansetron HCl (Zofran Inj) 4 mg IVP Q4H PRN PRN Reason: Nausea/Vomiting Pantoprazole Sodium (Protonix Ec Tab) 40 mg PO 0600 [facility] Last Admin: 09/07/18 05:35 Dose: 40 mg Prednisone (Prednisone Tab) 5 mg PO DAILY [facility] Last Admin: 09/08/18 15:20 Dose: 5 mg Tacrolimus (Prograf Cap) 1 mg PO QAM [facility] Last Admin: 09/08/18 15:22 Dose: 1 mg Tobramycin Sulfate (Tobrex 0.3% Ophth Oint) 0 appl OS BID [facility] Last Admin: 09/08/18 10:13 Dose: Not Given - Labs Labs: 09/08/18 08:20 09/08/18 08:20 - Constitutional Appears: Well - Head Exam Head Exam: ATRAUMATIC, NORMAL INSPECTION, NORMOCEPHALIC - Eye Exam Eye Exam: EOMI, Normal appearance, PERRL Pupil Exam: NORMAL ACCOMODATION, PERRL - ENT Exam ENT Exam: Mucous Membranes Moist, Normal Exam - Neck Exam Neck Exam: Full ROM, Normal Inspection. absent: Lymphadenopathy - Respiratory Exam Respiratory Exam: Clear to Ausculation Bilateral, NORMAL BREATHING PATTERN - Cardiovascular Exam Cardiovascular Exam: REGULAR RHYTHM, +S1, +S2. absent: Murmur - GI/Abdominal Exam GI & Abdominal Exam: Soft, Normal Bowel Sounds. absent: Tenderness - Extremities Exam Extremities Exam: Full ROM, Normal Capillary Refill, Normal Inspection. absent: Joint Swelling, Pedal Edema - Back Exam Back Exam: NORMAL INSPECTION - Neurological Exam Neurological Exam: Alert, Awake, CN II-XII Intact, Normal Gait, Oriented x3 - Psychiatric Exam Psychiatric exam: Normal Affect, Normal Mood - Skin Skin Exam: Dry, Intact, Normal Color, Warm Assessment and Plan - Assessment and Plan (Free Text) Assessment: 67 M presenting with K. Pneumonia UTI Plan Sepsis secondary to K. pneumoniae UTI - Continue Rocephin - ACEP for fever - ID on consult: Dr. Squires - ECHO today K. Pneumoniae bacteremia - As above Thrombocytopenia, likely 2/2 Sepsis vs Tacrolimus - Dr. Leigh on consult - recommends holding Tacrolimus if plts < 50K AAA - Stable, no acute intervention ESRD on HD MWF - Dr. Wheeler on consult - HD Today - Calcitriol on HD starting today - s/p Right kidney transplant Diarrhea - Resolved - GI on consult - No acute intervention HTN - Continue metoprolol; hold home Clonidine S/p R Kidney Transplant - Continue Tacrolimus Chronic anemia, CKD - Continue EPO on HD per nephro
--- NOTE | 2018-09-08 18:51 | CARD ---
APPROVED REPORT Date of service: 09/08/2018 EXAM: Two-dimensional and M-mode echocardiogram with Doppler and color Doppler. INDICATION Infection:Rule out subacute bacterial endocarditis 2D DIMENSIONS IVSd2.1 (0.7-1.1cm)LVDd2.6 (3.9-5.9cm) PWd1.6 (0.7-1.1cm)LVDs1.7 (2.5-4.0cm) FS (%) 35.6 %LVEF (%)67.2 (>50%) M-Mode DIMENSIONS Aortic Root2.20 (2.2-3.7cm)Aortic Cusp Exc.0.80 (1.5-2.0cm) Aortic Valve AoV Peak Fyxbvnme695.0cm/Graham Peak GR.18mmHg Mitral Valve E/A ratio0.0 TDI E/Lateral E'0.0E/Medial E'0.0 LEFT VENTRICLE The left ventricle cavity is small. There is severe concentric left ventricular hypertrophy. The echo findings are consistent with hypertrophic cardiomyopathy. The left ventricular function is normal. The left ventricular ejection fraction is within the normal range. There is normal LV segmental wall motion. Transmitral Doppler flow pattern is Grade I-abnormal relaxation pattern. RIGHT VENTRICLE The right ventricle is normal size. The right ventricle is moderately hypertrophied. The right ventricular systolic function is normal. ATRIA The left atrium size is normal. The right atrium size is normal. AORTIC VALVE The aortic and Mitral Valves are severely thickened. No aortic regurgitation is present. There is no aortic valvular stenosis. Cannot exclude a vegetation. <Conclusion> The left ventricle cavity is small. There is severe concentric left ventricular hypertrophy. The echo findings are consistent with hypertrophic cardiomyopathy. The left ventricular ejection fraction is within the normal range. Transmitral Doppler flow pattern is Grade I-abnormal relaxation pattern. The aortic and Mitral Valves are severely thickened. Cannot exclude a vegetation.
[2018-09-08] MEDS: Levalbuterol 0.63 MG/3 ML Inhal Soln UD IH SCH (19:51)
--- NOTE | 2018-09-08 21:28 | PN ---
DATE: 09/08/2018 SUBJECTIVE: The patient was seen in room 269, bed 2. The patient is lying in the bed. The patient is comfortable and in no distress. The patient does not offer any specific complaints. A 14-system review was done, pertinent positives and negatives dictated above. PHYSICAL EXAMINATION GENERAL: The patient is comfortable. VITAL SIGNS: T-max in the last 24 hours is 98.5. Telemetry shows sinus rhythm, heart rate 81, respiration 18 to 20, O2 sat 97%, blood pressure is 159/113, 131/80, 135/94. HEENT: The patient's head examination normocephalic, atraumatic. HEENT examination shows pinkish pale conjunctivae. Anicteric sclerae. No oropharyngeal lesion. NECK: No neck rigidity. CHEST: Kyphosis. CARDIOVASCULAR: S1, S2, regular rhythm. Positive systolic murmur left sternal border, right second intercostal space, left second intercostal space. LUNGS: Shows positive median sternotomy surgical scar. ABDOMEN: Soft. Positive bowel sound. Positive abdominal pannus pulsation noted. MUSCULOSKELETAL: Shows a body mass index of 14.3. NEUROLOGIC: The patient is alert, awake, responsive, is able to follow commands. Moves upper and lower extremities without assistance. Gait examination is not tested. VASCULAR: Palpable pulses. LABORATORY DATA: On 09/08/2018; WBC 15.2, down from highest WBC of 20.6, hemoglobin/hematocrit 11 and 37.6, MCV 75, platelets 71,000, 72,000. Granulocytes is 85%, fibrinogen level is 91 which is low. Sodium 138, potassium 4.2, chloride 104, CO2 of 22, anion gap 16, BUN 47, creatinine 3.7, glucose 161, calcium 8.5, phosphorus 4.3, magnesium 1.9, ferritin 695, alkaline phosphatase 133, total protein 5.9, albumin 2.3, urine protein 100, large blood, leukocyte esterase trace, rbc too numerous to count, wbc too numerous to count, bacteria many. Tacrolimus level is high as 42.6. Blood cultures are growing Klebsiella pneumoniae from 09/03/2018 and urine is growing Klebsiella pneumoniae from 09/03/2018, which is ESBL negative. The patient's CT scan of the abdomen and pelvis, chest x-ray. EKG, echocardiogram was reviewed. CURRENT MEDICATIONS: The patient is on a sliding scale coverage, Lipitor 10 mg daily, Lopressor 25 mg twice a day, morphine 1 mg IV every 4 hours, p.r.n., Periactin 4 mg twice a day, prednisone 5 mg daily, tacrolimus Prograf is actually dose adjusted to 1 mg p.o. daily because of elevated tacrolimus level, Protonix 40 mg daily, Rocaltrol 0.75 mcg Saturday, Saturday and Saturday, Rocephin 1 g IV daily, tobramycin eye drop to OS b.i.d., Tylenol p.o. suppository every 6 hours, p.r.n., Xopenex nebulizer 0.63 mg every 6 hours [id number], Zetia 10 mg daily Zofran IV every 4 hours,. Chest PT, incentive spirometry, oxygen. IMPRESSION 1. Klebsiella pneumoniae bacteremia and severe sepsis. 2. Klebsiella pneumoniae urinary tract infection. 3. Status post hypotension. 4. Leukocytosis with granulocytosis. 5. Thrombocytopenia. 6. Microcytic anemia. 7. Hypofibrinogenemia. 8. End-stage renal disease, hemodialysis dependent. 9. Insulin-requiring diabetes mellitus with hyperglycemia. 10. Hypokalemia. 11. Mild protein malnutrition and hypoalbuminemia. 12. Klebsiella pneumoniae urinary tract infection with micro proteinuria, glycosuria hematuria, pyuria, bacteriuria. 13. Elevated tacrolimus level. 14. Klebsiella pneumoniae bacteremia, sepsis and Klebsiella pneumoniae urinary tract infection. 15. A right axis deviation. 16. Anterior coronary ischemia with age indeterminate inferior infarct. 17. Small bilateral pleural effusion. 18. Right lower lobe consolidation versus pneumonia. 19. Polycystic kidney disease with right lower quadrant renal transplant. 20. Large infrarenal abdominal aortic aneurysm 13 x 9 cm. 21. Severe bilateral polycystic kidney disease with right lower quadrant renal transplant. 22. Left ventricular ejection fraction of 65% to 70%. 23. End-stage renal disease, hemodialysis dependent. 24. Cachexia. 25. Anorexia. 26. Hyperlipidemia. 27. Secondary hyperparathyroidism. 28. Gait dysfunction. PLAN: The patient has been ordered repeat labs for the morning. The patient's current consultation is Nephrology, Interventional Radiology, Gastroenterology, Hematology/Oncology, Infectious Disease, TCU evaluation ordered. The patient has been ordered SCDs, KRYSTAL stockings, out of bed, physical therapy, occupational therapy all ordered. The patient's further management will be dependent upon the patient's clinical condition, hemodynamic status and as per the patient response to therapeutic intervention as per the patient's diagnostic test results and as per recommendation by all the physicians involved in the care of the patient. Dictated and electronically signed, not read. Mart Knox MD
--- NOTE | 2018-09-08 21:41 | CP.PCM.PN ---
Subjective - Date & Time of Evaluation Date of Evaluation: 09/08/18 Time of Evaluation: 20:00 - Subjective Subjective: Has abdominal pain. Objective - Vital Signs/Intake and Output Vital Signs (last 24 hours): Temp Pulse Resp BP Pulse Ox 97.5 F L 74 18 159/113 H 97 09/08/18 05:37 09/08/18 19:52 09/08/18 05:37 09/08/18 05:37 09/08/18 05:37 Intake and Output: 09/08/18 09/09/18 18:59 06:59 Intake Total 60 Balance 60 - Medications Medications: Current Medications Acetaminophen (Tylenol 325mg Tab) 650 mg PO Q6 PRN PRN Reason: TEMP>=99.5F Acetaminophen (Tylenol 650 Mg Supp) 650 mg RC Q6H PRN PRN Reason: TEMP>=99.5F Atorvastatin Calcium (Lipitor) 10 mg PO DAILY [facility] Last Admin: 09/08/18 15:19 Dose: 10 mg Calcitriol (Rocaltrol) 0.75 mcg PO MWF [facility] Last Admin: 09/08/18 15:19 Dose: 0.75 mcg Cyproheptadine HCl (Periactin) 4 mg PO BID [facility] Last Admin: 09/08/18 18:08 Dose: Not Given Ezetimibe (Zetia) 10 mg PO DAILY [facility] Last Admin: 09/08/18 15:20 Dose: 10 mg Ceftriaxone Sodium (Rocephin 1 Gram Ivpb) 1 gm in 100 mls @ 100 mls/hr IVPB DAILY [facility]; Protocol Stop: 09/14/18 10:01 Last Admin: 09/08/18 15:30 Dose: Not Given Insulin Human Regular (Humulin R Low) 0 [facility]; Protocol Last Admin: 09/08/18 16:16 Dose: Not Given Levalbuterol HCl (Xopenex) 0.63 mg IH [id number] [facility] Last Admin: 09/08/18 19:51 Dose: 0.63 mg Metoprolol Tartrate (Lopressor) 25 mg PO BID [facility] Last Admin: 09/08/18 18:08 Dose: Not Given Morphine Sulfate (Morphine) 1 mg IVP Q4H PRN PRN Reason: Pain, severe (8-10) Last Admin: 09/08/18 09:24 Dose: 1 mg Ondansetron HCl (Zofran Inj) 4 mg IVP Q4H PRN PRN Reason: Nausea/Vomiting Pantoprazole Sodium (Protonix Ec Tab) 40 mg PO 0600 [facility] Last Admin: 09/07/18 05:35 Dose: 40 mg Prednisone (Prednisone Tab) 5 mg PO DAILY [facility] Last Admin: 09/08/18 15:20 Dose: 5 mg Tacrolimus (Prograf Cap) 1 mg PO QAM [facility] Last Admin: 09/08/18 15:22 Dose: 1 mg Tobramycin Sulfate (Tobrex 0.3% Ophth Oint) 0 appl OS BID [facility] Last Admin: 09/08/18 10:13 Dose: Not Given - Labs Labs: 09/08/18 08:20 09/08/18 08:20 - Head Exam Head Exam: ATRAUMATIC - Eye Exam Eye Exam: Normal appearance - ENT Exam ENT Exam: Mucous Membranes Dry - Respiratory Exam Respiratory Exam: NORMAL BREATHING PATTERN - Cardiovascular Exam Cardiovascular Exam: +S1, +S2 - GI/Abdominal Exam GI & Abdominal Exam: Normal Bowel Sounds Assessment and Plan (1) Thrombocytopenia Assessment & Plan: low fibrinogen consistent with DIC trend fibrinogen plt improved today hold tacrolimus if plt < 50,000 Status: Acute (2) Anemia Assessment & Plan: anemia of chronic disease and renal disease MARK per renal Status: Chronic (3) Leukocytosis Assessment & Plan: improved on antibiotics Status: Acute
[2018-09-09] MEDS: Levalbuterol 0.63 MG/3 ML Inhal Soln UD IH SCH ×4 (02:53→19:32)
[2018-09-09] MEDS: Morphine 2 mg/ml ISec IVP PRN ×2 (05:28→20:30)
[2018-09-09] MEDS: Pantoprazole 40 mg EC Tab PO SCH (05:28)
[2018-09-09] MEDS ORDERED: Pantoprazole 40 mg EC Tab PO SCH (06:00)
[2018-09-09 07:45] LABS: HEMOGLOBIN 10.8 g/dL (14.0-18.0); LYMPH # 1.3 (1.2-3.4); LYMPH % 9.9 % (22.0-35.0); MEAN CELL VOLUME 76.3 fl (80.0-105.0); MEAN CORPUSCULAR HEMOGLOBIN 21.7 pg (25.0-35.0); MEAN CORPUSCULAR HGB CONC 28.4 g/dl (31.0-37.0); MONO # 0.4 (0.1-0.6); MONO % 3.1 % (1.0-6.0); PLATELET COUNT 95 10^3/uL (120.0-450.0); RBC 4.98 10^6/uL (3.5-6.1); RED CELL DISTRIBUTION WIDTH 20.4 % (11.5-14.5); WHITE BLOOD COUNT 13.1 10^3/uL (4.5-11.0)
[2018-09-09 08:00] LABS: ALB/GLOB RATIO 0.6 (1.1-1.8); ALBUMIN 2.1 g/dL (3.0-4.8); BILIRUBIN,DIRECT 0.5 mg/dL (0.0-0.4); CALCIUM 8.2 mg/dL (8.4-10.5)
[2018-09-09 08:13] LABS: FREE T4 0.9 ng/dL (0.78-2.19)
[2018-09-09 09:24] LABS: PLATELET COUNT MANUAL 89 K/mm3 (120-450)
[2018-09-09] MEDS: Tobramycin 0.3% OPH OINT OS SCH ×2 (10:00→18:41)
[2018-09-09] MEDS: Insulin Reg-LOW-Coverage SC SCH ×4 (10:02→22:05)
[2018-09-09] MEDS: cefTRIAXone 1 gm 1 GM/100 ML BAG IVPB SCH (10:02)
[2018-09-09 10:17] LABS: INR 1.3; PARTIAL THROMBOPLASTIN TIME 31.8 Seconds (26.9-38.3); PROTHROMBIN TIME 14.7 SECONDS (9.4-12.5)
--- NOTE | 2018-09-09 10:51 | CP.PCM.PN ---
<Papi Dunlap - Last Filed: 09/09/18 10:46> Subjective - Date & Time of Evaluation Date of Evaluation: 09/09/18 Time of Evaluation: 10:46 - Subjective Subjective: Nephrology Progress Note (Dr. Wheeler's Service): Patient seen and assessed at bedside. Patient was transferred from telemetry floor last night and is now on med/surg. No acute events noted overnight. Patient continues to endorse mild to moderate abdominal pain and decreased appetite despite encouragement and continued efforts to increase PO intake. He denies any other complaints, however. Further 12 point ROS reviewed and unremarkable at this time. Objective - Vital Signs/Intake and Output Vital Signs (last 24 hours): Temp Pulse Resp BP Pulse Ox 98.2 F 65 18 116/78 98 09/09/18 06:00 09/09/18 06:00 09/09/18 06:00 09/09/18 10:01 09/09/18 06:00 Intake and Output: 09/09/18 09/09/18 06:59 18:59 Intake Total 60 Balance 60 - Medications Medications: Current Medications Acetaminophen (Tylenol 325mg Tab) 650 mg PO Q6 PRN PRN Reason: TEMP>=99.5F Acetaminophen (Tylenol 650 Mg Supp) 650 mg RC Q6H PRN PRN Reason: TEMP>=99.5F Atorvastatin Calcium (Lipitor) 10 mg PO DAILY [facility] Last Admin: 09/09/18 10:01 Dose: 10 mg Calcitriol (Rocaltrol) 0.75 mcg PO MWF [facility] Last Admin: 09/08/18 15:19 Dose: 0.75 mcg Cyproheptadine HCl (Periactin) 4 mg PO BID [facility] Last Admin: 09/09/18 10:02 Dose: 4 mg Ezetimibe (Zetia) 10 mg PO DAILY [facility] Last Admin: 09/09/18 10:02 Dose: 10 mg Ceftriaxone Sodium (Rocephin 1 Gram Ivpb) 1 gm in 100 mls @ 100 mls/hr IVPB DAILY [facility]; Protocol Stop: 09/14/18 10:01 Last Admin: 09/09/18 10:02 Dose: 100 mls/hr Insulin Human Regular (Humulin R Low) 0 units SC [facility]; Protocol Last Admin: 09/09/18 10:02 Dose: 1 units Levalbuterol HCl (Xopenex) 0.63 mg IH [id number] [facility] Last Admin: 09/09/18 07:38 Dose: 0.63 mg Metoprolol Tartrate (Lopressor) 25 mg PO BID [facility] Last Admin: 09/09/18 10:01 Dose: 25 mg Morphine Sulfate (Morphine) 1 mg IVP Q4H PRN PRN Reason: Pain, severe (8-10) Last Admin: 09/09/18 05:28 Dose: 1 mg Ondansetron HCl (Zofran Inj) 4 mg IVP Q4H PRN PRN Reason: Nausea/Vomiting Pantoprazole Sodium (Protonix Ec Tab) 40 mg PO 0600 [facility] Last Admin: 09/09/18 05:28 Dose: 40 mg Prednisone (Prednisone Tab) 5 mg PO DAILY [facility] Last Admin: 09/09/18 10:02 Dose: 5 mg Tacrolimus (Prograf Cap) 1 mg PO QAM [facility] Last Admin: 09/08/18 15:22 Dose: 1 mg Tobramycin Sulfate (Tobrex 0.3% Ophth Oint) 0 appl OS BID [facility] Last Admin: 09/08/18 10:13 Dose: Not Given - Labs Labs: 09/09/18 07:15 09/09/18 07:15 PT 14.7 SECONDS (9.4-12.5) H 09/09/18 10:00 INR 1.30 09/09/18 10:00 APTT 31.8 Seconds (26.9-38.3) 09/09/18 10:00 - Additional Findings Additional findings: - Constitutional Appears: No Acute Distress, Chronically Ill - Head Exam Head Exam: ATRAUMATIC - Eye Exam Eye Exam: EOMI - ENT Exam ENT Exam: Mucous Membranes Moist - Neck Exam Neck Exam: Full ROM - Respiratory Exam Respiratory Exam: Clear to Ausculation Bilateral, NORMAL BREATHING PATTERN - Cardiovascular Exam Cardiovascular Exam: REGULAR RHYTHM, +S1, +S2 - GI/Abdominal Exam GI & Abdominal Exam: Soft, Normal Bowel Sounds, Pulsatile Mass (Hypogastric/RLQ area). absent: Tenderness - Extremities Exam Extremities Exam: absent: Calf Tenderness, Pedal Edema Additional comments: HD access of left arm with positive bruit and negative for signs of any clinical infection of the surrounding soft tissues - Neurological Exam Neurological Exam: Alert, Awake, Oriented x3 - Psychiatric Exam Psychiatric exam: Normal Affect, Normal Mood - Skin Skin Exam: Dry, Warm Assessment and Plan - Assessment and Plan (Free Text) Assessment: 67 year old male with a past medical history significant for ADPKD s/p renal allograft (2006), ESRD on HD MWF, post-transplant DM2, HTN, unrepaired severe , and unrepaired infrarenal AAA who was admitted for lethargy and persistent diarrhea. Nephrology was consulted for ESRD care. Plan: 1. ESRD on HD -s/p HD yesterday (09/08) without UF -Next HD scheduled for tomorrow (09/10) per routine -Continue Calcitriol 0.75mcg with HD -Relatively stable electrolyte and volume status currently -Continue to monitor I/O's -Avoid nephrotoxic agents -Renally dose medications as indicated 2. Diarrhea -Resolved -Stool studies pending 3. HTN -Continue home Metoprolol -Holding home Clonidine in setting of hypotension -Currently with adequate control 4. Klebsiella Bacteremia secondary to Klebsiella UTI -Continue Rocephin as ordered -Cardiology consulted for possible SUHAIL, per primary team -Will likely need prolonged course of antibiotics as patient has renal transplant -Further management as per ID and Cardiology 5. Immunosuppression -Continue AM Tacrolimus as ordered -Continue Prednisone 5mg daily to avoid adrenal insufficiency -Will continue to taper this as an outpatient upon discharge 6. AAA -Can use IV contrast for further evaluation, should this be indicated -IR consulted, all recommendations appreciated 7. Thrombocytopenia -Hematology consulted, all recommendations appreciated 8. Anemia in ESRD -Continues to be at goal -Will continue long acting EPO as outpatient Disposition: Will obtain chest x-ray to r/o any pulmonary edema as patient has had multiple HD sessions without any UF being taken off. Patient seen and case discussed with attending, Dr. Wheeler. Papi Dunlap PGY2 <Dandy Wheeler - Last Filed: 09/10/18 08:02> Objective - Vital Signs/Intake and Output Vital Signs (last 24 hours): Temp Pulse Resp BP Pulse Ox 97.6 F 71 18 129/83 98 09/09/18 22:11 09/09/18 22:11 09/09/18 22:11 09/09/18 22:11 09/09/18 22:11 Intake and Output: 09/10/18 09/10/18 06:59 18:59 Intake Total 240 Output Total 50 Balance 190 - Medications Medications: Current Medications Acetaminophen (Tylenol 325mg Tab) 650 mg PO Q6 PRN PRN Reason: TEMP>=99.5F Acetaminophen (Tylenol 650 Mg Supp) 650 mg RC Q6H PRN PRN Reason: TEMP>=99.5F Atorvastatin Calcium (Lipitor) 10 mg PO DAILY [facility] Last Admin: 09/09/18 10:01 Dose: 10 mg Calcitriol (Rocaltrol) 0.75 mcg PO MWF [facility] Last Admin: 09/08/18 15:19 Dose: 0.75 mcg Cyproheptadine HCl (Periactin) 4 mg PO BID [facility] Last Admin: 09/09/18 18:44 Dose: 4 mg Ezetimibe (Zetia) 10 mg PO DAILY [facility] Last Admin: 09/09/18 10:02 Dose: 10 mg Ceftriaxone Sodium (Rocephin 1 Gram Ivpb) 1 gm in 100 mls @ 100 mls/hr IVPB DAILY [facility]; Protocol Stop: 09/14/18 10:01 Last Admin: 09/09/18 10:02 Dose: 100 mls/hr Insulin Human Regular (Humulin R Low) 0 units SC ACHS [facility]; Protocol Last Admin: 09/09/18 22:05 Dose: Not Given Levalbuterol HCl (Xopenex) 0.63 mg IH [id number] [facility] Last Admin: 09/10/18 07:44 Dose: Not Given Metoprolol Tartrate (Lopressor) 25 mg PO BID [facility] Last Admin: 09/09/18 18:40 Dose: 25 mg Morphine Sulfate (Morphine) 1 mg IVP Q4H PRN PRN Reason: Pain, severe (8-10) Last Admin: 09/09/18 20:30 Dose: 1 mg Ondansetron HCl (Zofran Inj) 4 mg IVP Q4H PRN PRN Reason: Nausea/Vomiting Pantoprazole Sodium (Protonix Ec Tab) 40 mg PO 0600 [facility] Last Admin: 09/10/18 07:43 Dose: 40 mg Prednisone (Prednisone Tab) 5 mg PO DAILY [facility] Last Admin: 09/09/18 10:02 Dose: 5 mg Tacrolimus (Prograf Cap) 1 mg PO QAM [facility] Last Admin: 09/09/18 18:40 Dose: 1 mg Tobramycin Sulfate (Tobrex 0.3% Ophth Oint) 0 appl OS BID [facility] Last Admin: 09/09/18 18:41 Dose: Not Given - Labs Labs: 09/10/18 06:35 09/10/18 06:35 PT 14.7 SECONDS (9.4-12.5) H 09/09/18 10:00 INR 1.30 09/09/18 10:00 APTT 31.8 Seconds (26.9-38.3) 09/09/18 10:00 Assessment and Plan (1) ESRD (end stage renal disease) Status: Chronic (2) Diarrhea Status: Acute (3) Failure to thrive Status: Acute (4) HTN (hypertension) Status: Acute (5) UTI (urinary tract infection) Status: Acute (6) Anemia Status: Chronic (7) Immunosuppression Status: Acute (8) AAA (abdominal aortic aneurysm) Status: Chronic (9) Renal transplant, status post Status: Chronic Attending/Attestation - Attestation I have personally seen and examined this patient.: Yes I have fully participated in the care of the patient.: Yes I have reviewed all pertinent clinical information, including history, physical exam and plan: Yes Notes (Text): Patient seen and examined; I agree with the resident's note as above with the following additions/edits: 67 yo M w/ htn, post-transplant DM, s/p renal allograft (2006, now failed), unrepaired large AAA, severe , and ESRD on HD, admitted with severe sepsis; Patient continues to have failure to thrive with minimal PO intake; still very weak, requiring assistance to get to bathroom; appears somewhat confused at times and slow to answer questions; Severe sepsis, on ceftriaxone for Kleb pneumo bacteremia/UTI, repeat blood cultures negative; Relatively stable electrolyte status; no evidence of volume excess by exam and CXR despite not getting any UF on last HD treatment; next HD tomorrow, likely with minimal UF goal; HTN of ESRD, BP controlled on metoprolol only, continue the same; need to ensure patient doesn't become hypertensive, especially given large AAA that for now will be managed conservatively; On tacrolimus 1 mg daily and prednisone 5 g daily for transplant immunosuppression; tacrolimus dose being tapered down, will continue current dose for now; Anemia of CKD, hgb above goal, no need to re-dose MARK for now; concern for DIC noted, f/u with hematology.
--- NOTE | 2018-09-09 15:44 | CP.PCM.PN ---
Subjective - Date & Time of Evaluation Date of Evaluation: 09/09/18 Time of Evaluation: 15:39 - Subjective Subjective: Medicine progress note (Dr. Knox) - Dora, PGY -2 Patient seen and examined at bedside. Abdominal pain overnight, Morphine given. Patient still complaining of mild abdominal pain, but denies any other acute complaints including chest pain radiating to the back, shortness of breath. Objective - Vital Signs/Intake and Output Vital Signs (last 24 hours): Temp Pulse Resp BP Pulse Ox 98.8 F 68 18 137/99 H 98 09/09/18 14:00 09/09/18 14:00 09/09/18 14:00 09/09/18 14:00 09/09/18 14:00 Intake and Output: 09/09/18 09/09/18 06:59 18:59 Intake Total 60 240 Balance 60 240 - Medications Medications: Current Medications Acetaminophen (Tylenol 325mg Tab) 650 mg PO Q6 PRN PRN Reason: TEMP>=99.5F Acetaminophen (Tylenol 650 Mg Supp) 650 mg RC Q6H PRN PRN Reason: TEMP>=99.5F Atorvastatin Calcium (Lipitor) 10 mg PO DAILY [facility] [place] Last Admin: 09/09/18 10:01 Dose: 10 mg Calcitriol (Rocaltrol) 0.75 mcg PO MWF [facility] [place] Last Admin: 09/08/18 15:19 Dose: 0.75 mcg Cyproheptadine HCl (Periactin) 4 mg PO BID [facility] [place] Last Admin: 09/09/18 10:02 Dose: 4 mg Ezetimibe (Zetia) 10 mg PO DAILY [facility] [place] Last Admin: 09/09/18 10:02 Dose: 10 mg Ceftriaxone Sodium (Rocephin 1 Gram Ivpb) 1 gm in 100 mls @ 100 mls/hr IVPB DAILY [facility] [place]; Protocol Stop: 09/14/18 10:01 Last Admin: 09/09/18 10:02 Dose: 100 mls/hr Insulin Human Regular (Humulin R Low) 0 units SC ACHS [facility] [place]; Protocol Last Admin: 09/09/18 12:55 Dose: 2 units Levalbuterol HCl (Xopenex) 0.63 mg IH [id number] [facility] [place] Last Admin: 09/09/18 14:08 Dose: 0.63 mg Metoprolol Tartrate (Lopressor) 25 mg PO BID [facility] [place] Last Admin: 09/09/18 10:01 Dose: 25 mg Morphine Sulfate (Morphine) 1 mg IVP Q4H PRN PRN Reason: Pain, severe (8-10) Last Admin: 09/09/18 05:28 Dose: 1 mg Ondansetron HCl (Zofran Inj) 4 mg IVP Q4H PRN PRN Reason: Nausea/Vomiting Pantoprazole Sodium (Protonix Ec Tab) 40 mg PO 0600 [facility] [place] Last Admin: 09/09/18 05:28 Dose: 40 mg Prednisone (Prednisone Tab) 5 mg PO DAILY [facility] [place] Last Admin: 09/09/18 10:02 Dose: 5 mg Tacrolimus (Prograf Cap) 1 mg PO QAM [facility] [place] Last Admin: 09/08/18 15:22 Dose: 1 mg Tobramycin Sulfate (Tobrex 0.3% Ophth Oint) 0 appl OS BID [facility] [place] Last Admin: 09/09/18 10:00 Dose: Not Given - Labs Labs: 09/09/18 07:15 09/09/18 07:15 PT 14.7 SECONDS (9.4-12.5) H 09/09/18 10:00 INR 1.30 09/09/18 10:00 APTT 31.8 Seconds (26.9-38.3) 09/09/18 10:00 - Constitutional Appears: Non-toxic, Chronically Ill - Head Exam Head Exam: ATRAUMATIC, NORMAL INSPECTION, NORMOCEPHALIC - Eye Exam Eye Exam: EOMI, Normal appearance, PERRL Pupil Exam: NORMAL ACCOMODATION, PERRL - ENT Exam ENT Exam: Mucous Membranes Moist, Normal Exam - Neck Exam Neck Exam: Full ROM, Normal Inspection. absent: Lymphadenopathy - Respiratory Exam Respiratory Exam: Clear to Ausculation Bilateral, NORMAL BREATHING PATTERN - Cardiovascular Exam Cardiovascular Exam: REGULAR RHYTHM, +S1, +S2. absent: Murmur - GI/Abdominal Exam GI & Abdominal Exam: Soft, Normal Bowel Sounds. absent: Tenderness - Extremities Exam Extremities Exam: Full ROM, Normal Capillary Refill, Normal Inspection. absent: Joint Swelling, Pedal Edema - Back Exam Back Exam: NORMAL INSPECTION - Neurological Exam Neurological Exam: Alert, Awake, CN II-XII Intact, Normal Gait, Oriented x3 - Psychiatric Exam Psychiatric exam: Normal Affect, Normal Mood - Skin Skin Exam: Dry, Intact, Normal Color, Warm Assessment and Plan - Assessment and Plan (Free Text) Assessment: 67 M presenting with K. Pneumonia UTI ECHO was read as not being able to rule out vegetations. Plan Sepsis secondary to K. pneumoniae UTI - Continue Rocephin - ACEP for fever - ID on consult: Dr. Squires - Cardio consult - Dr. Shane Possible SUHAIL, will await cardio recommendations K. Pneumoniae bacteremia - As above Thrombocytopenia, likely 2/2 Sepsis vs Tacrolimus vs DIC - Dr. Leigh on consult - recommends holding Tacrolimus if plts < 50K Agrees that fibrin and fibrinogen consistent with DIC; states that fibrinogen improved today, wants to trend fibrinogen AAA - Stable, no acute intervention ESRD on HD MWF - Dr. Wheeler on consult - HD yesterday, next on Saturday. 3.5L taken off - Calcitriol on HD starting yesterday - s/p Right kidney transplant Diarrhea - Resolved - GI on consult - No acute intervention HTN - Continue metoprolol; hold home Clonidine S/p R Kidney Transplant - Continue Tacrolimus Chronic anemia, CKD - Continue EPO on HD per nephro
--- NOTE | 2018-09-09 16:18 | CP.PCM.PN ---
<Elbert Obrien - Last Filed: 09/09/18 16:36> Subjective - Date & Time of Evaluation Date of Evaluation: 09/09/18 Time of Evaluation: 10:10 - Subjective Subjective: Elbert Orbien D.O. PGY-3, Internal Medicine Resident, Infectious Disease Progress Note 67-year-old -[place] Citizen male with a past medical history of polycystic kidney disease status post renal transplant in 2006, posttransplant diabetes me llitus, status post aortic valve replacement for severe aortic stenosis, large unrepaired AAA, end-stage renal disease on hemodialysis Saturday/ Saturday/Saturday who presents to the emergency department for lethargy and hypotension. Infectious disease consultation was requested for concerns of urinary tract infection. Patient was seen and examined at bedside. Resting comfortably. No acute complaints. Objective - Vital Signs/Intake and Output Vital Signs (last 24 hours): Temp Pulse Resp BP Pulse Ox 98.8 F 68 18 137/99 H 98 09/09/18 14:00 09/09/18 14:00 09/09/18 14:00 09/09/18 14:00 09/09/18 14:00 Intake and Output: 09/09/18 09/09/18 06:59 18:59 Intake Total 60 240 Balance 60 240 - Medications Medications: Current Medications Acetaminophen (Tylenol 325mg Tab) 650 mg PO Q6 PRN PRN Reason: TEMP>=99.5F Acetaminophen (Tylenol 650 Mg Supp) 650 mg RC Q6H PRN PRN Reason: TEMP>=99.5F Atorvastatin Calcium (Lipitor) 10 mg PO DAILY [facility] Last Admin: 09/09/18 10:01 Dose: 10 mg Calcitriol (Rocaltrol) 0.75 mcg PO MWF [facility] Last Admin: 09/08/18 15:19 Dose: 0.75 mcg Cyproheptadine HCl (Periactin) 4 mg PO BID [facility] Last Admin: 09/09/18 10:02 Dose: 4 mg Ezetimibe (Zetia) 10 mg PO DAILY [facility] Last Admin: 09/09/18 10:02 Dose: 10 mg Ceftriaxone Sodium (Rocephin 1 Gram Ivpb) 1 gm in 100 mls @ 100 mls/hr IVPB DAILY [facility]; Protocol Stop: 09/14/18 10:01 Last Admin: 09/09/18 10:02 Dose: 100 mls/hr Insulin Human Regular (Humulin R Low) 0 units SC ACHS [facility]; Protocol Last Admin: 09/09/18 12:55 Dose: 2 units Levalbuterol HCl (Xopenex) 0.63 mg IH [id number] [facility] Last Admin: 09/09/18 14:08 Dose: 0.63 mg Metoprolol Tartrate (Lopressor) 25 mg PO BID [facility] Last Admin: 09/09/18 10:01 Dose: 25 mg Morphine Sulfate (Morphine) 1 mg IVP Q4H PRN PRN Reason: Pain, severe (8-10) Last Admin: 09/09/18 05:28 Dose: 1 mg Ondansetron HCl (Zofran Inj) 4 mg IVP Q4H PRN PRN Reason: Nausea/Vomiting Pantoprazole Sodium (Protonix Ec Tab) 40 mg PO 0600 [facility] Last Admin: 09/09/18 05:28 Dose: 40 mg Prednisone (Prednisone Tab) 5 mg PO DAILY [facility] Last Admin: 09/09/18 10:02 Dose: 5 mg Tacrolimus (Prograf Cap) 1 mg PO QAM [facility] Last Admin: 09/08/18 15:22 Dose: 1 mg Tobramycin Sulfate (Tobrex 0.3% Ophth Oint) 0 appl OS BID [facility] Last Admin: 09/09/18 10:00 Dose: Not Given - Labs Labs: 09/09/18 07:15 09/09/18 07:15 PT 14.7 SECONDS (9.4-12.5) H 09/09/18 10:00 INR 1.30 09/09/18 10:00 APTT 31.8 Seconds (26.9-38.3) 09/09/18 10:00 - Constitutional Appears: Cachectic, Chronically Ill male - Head Exam Head Exam: ATRAUMATIC, NORMOCEPHALIC, temporal wasting noted - Eye Exam Eye Exam: left eye irritation improving - ENT Exam ENT Exam: Mucous Membranes Moist - Neck Exam Neck exam: Positive for: Normal Inspection - Respiratory Exam Respiratory Exam: absent: Rales, Rhonchi, Wheezes - Cardiovascular Exam Cardiovascular Exam: +S1, +S2. absent: Rubs - GI/Abdominal Exam GI & Abdominal Exam: palpable abdominal aneurysm, otherwise soft, cachectic - Extremities Exam Additional comments: AVF left upper extremity with palpable thrill - Neuro Exam Neuro exam: awake, alert - Psychiatric Exam Psychiatric exam: Normal Affect, Normal Mood - Skin Skin Exam: Dry, Warm Assessment and Plan - Assessment and Plan (Free Text) Assessment: 67-year-old -[place] Citizen male with a past medical history of polycystic kidney disease status post renal transplant in 2006, posttransplant diabetes mellitus, status post aortic valve replacement for severe aortic stenosis, large unrepaired AAA, end-stage renal disease on hemodialysis Saturday/ Saturday/Saturday who presents to the emergency department for lethargy and hypotension. Infectious disease consultation was requested for concerns of urinary tract infection. Plan: Klebsiella bacteremia 2/2 klebsiella urine Polycystic kidney disease status post renal transplant status post sepsis with ATN status post reinitiation of hemodialysis Saturday/Saturday/Saturday Left eye redness Aortic stenosis Posttransplantation diabetes mellitus Afebrile Leukocytosis continues downtrending On ceftriaxone day 3 Echo could not rule out vegetation Repeat blood cultures negative / day 2 Cardio following, recs appreciated GI note reviewed, recs appreciated Nephro following patient, recs appreciated We will follow with you Patient was seen and examined and case to be discussed at length with attending physician Thank you for the pleasure participating in the care of this interesting patient <Bishop Squires - Last Filed: 09/09/18 18:43> Objective - Vital Signs/Intake and Output Vital Signs (last 24 hours): Temp Pulse Resp BP Pulse Ox 98.8 F 68 18 137/99 H 98 09/09/18 14:00 09/09/18 14:00 09/09/18 14:00 09/09/18 14:00 09/09/18 14:00 Intake and Output: 09/09/18 09/09/18 06:59 18:59 Intake Total 60 240 Balance 60 240 - Medications Medications: Current Medications Acetaminophen (Tylenol 325mg Tab) 650 mg PO Q6 PRN PRN Reason: TEMP>=99.5F Acetaminophen (Tylenol 650 Mg Supp) 650 mg RC Q6H PRN PRN Reason: TEMP>=99.5F Atorvastatin Calcium (Lipitor) 10 mg PO DAILY [facility] Last Admin: 09/09/18 10:01 Dose: 10 mg Calcitriol (Rocaltrol) 0.75 mcg PO MWF [facility] Last Admin: 09/08/18 15:19 Dose: 0.75 mcg Cyproheptadine HCl (Periactin) 4 mg PO BID [facility] Last Admin: 09/09/18 10:02 Dose: 4 mg Ezetimibe (Zetia) 10 mg PO DAILY [facility] Last Admin: 09/09/18 10:02 Dose: 10 mg Ceftriaxone Sodium (Rocephin 1 Gram Ivpb) 1 gm in 100 mls @ 100 mls/hr IVPB DAILY [facility]; Protocol Stop: 09/14/18 10:01 Last Admin: 09/09/18 10:02 Dose: 100 mls/hr Insulin Human Regular (Humulin R Low) 0 units SC ACHS [facility]; Protocol Last Admin: 09/09/18 12:55 Dose: 2 units Levalbuterol HCl (Xopenex) 0.63 mg IH [id number] [facility] Last Admin: 09/09/18 14:08 Dose: 0.63 mg Metoprolol Tartrate (Lopressor) 25 mg PO BID [facility] Last Admin: 09/09/18 10:01 Dose: 25 mg Morphine Sulfate (Morphine) 1 mg IVP Q4H PRN PRN Reason: Pain, severe (8-10) Last Admin: 09/09/18 05:28 Dose: 1 mg Ondansetron HCl (Zofran Inj) 4 mg IVP Q4H PRN PRN Reason: Nausea/Vomiting Pantoprazole Sodium (Protonix Ec Tab) 40 mg PO 0600 [facility] Last Admin: 09/09/18 05:28 Dose: 40 mg Prednisone (Prednisone Tab) 5 mg PO DAILY [facility] Last Admin: 09/09/18 10:02 Dose: 5 mg Tacrolimus (Prograf Cap) 1 mg PO QAM [facility] Last Admin: 09/08/18 15:22 Dose: 1 mg Tobramycin Sulfate (Tobrex 0.3% Ophth Oint) 0 appl OS BID [facility] Last Admin: 09/09/18 10:00 Dose: Not Given - Labs Labs: 09/09/18 07:15 09/09/18 07:15 PT 14.7 SECONDS (9.4-12.5) H 09/09/18 10:00 INR 1.30 09/09/18 10:00 APTT 31.8 Seconds (26.9-38.3) 09/09/18 10:00 Attending/Attestation - Attestation I have personally seen and examined this patient.: Yes I have fully participated in the care of the patient.: Yes I have reviewed all pertinent clinical information, including history, physical exam and plan: Yes
--- NOTE | 2018-09-10 00:04 | CP.PCM.PN ---
Subjective - Date & Time of Evaluation Date of Evaluation: 09/09/18 Time of Evaluation: 19:00 - Subjective Subjective: Has abdominal pain. Objective - Vital Signs/Intake and Output Vital Signs (last 24 hours): Temp Pulse Resp BP Pulse Ox 97.6 F 71 18 129/83 98 09/09/18 22:11 09/09/18 22:11 09/09/18 22:11 09/09/18 22:11 09/09/18 22:11 Intake and Output: 09/09/18 09/10/18 18:59 06:59 Intake Total 240 120 Output Total 50 Balance 240 70 - Medications Medications: Current Medications Acetaminophen (Tylenol 325mg Tab) 650 mg PO Q6 PRN PRN Reason: TEMP>=99.5F Acetaminophen (Tylenol 650 Mg Supp) 650 mg RC Q6H PRN PRN Reason: TEMP>=99.5F Atorvastatin Calcium (Lipitor) 10 mg PO DAILY [facility] Last Admin: 09/09/18 10:01 Dose: 10 mg Calcitriol (Rocaltrol) 0.75 mcg PO MWF [facility] Last Admin: 09/08/18 15:19 Dose: 0.75 mcg Cyproheptadine HCl (Periactin) 4 mg PO BID [facility] Last Admin: 09/09/18 18:44 Dose: 4 mg Ezetimibe (Zetia) 10 mg PO DAILY [facility] Last Admin: 09/09/18 10:02 Dose: 10 mg Ceftriaxone Sodium (Rocephin 1 Gram Ivpb) 1 gm in 100 mls @ 100 mls/hr IVPB DAILY [facility]; Protocol Stop: 09/14/18 10:01 Last Admin: 09/09/18 10:02 Dose: 100 mls/hr Insulin Human Regular (Humulin R Low) 0 units SC ACHS [facility]; Protocol Last Admin: 09/09/18 16:30 Dose: Not Given Levalbuterol HCl (Xopenex) 0.63 mg IH [id number] [facility] Last Admin: 09/09/18 19:32 Dose: 0.63 mg Metoprolol Tartrate (Lopressor) 25 mg PO BID [facility] Last Admin: 09/09/18 18:40 Dose: 25 mg Morphine Sulfate (Morphine) 1 mg IVP Q4H PRN PRN Reason: Pain, severe (8-10) Last Admin: 04/02/19 20:30 Dose: 1 mg Ondansetron HCl (Zofran Inj) 4 mg IVP Q4H PRN PRN Reason: Nausea/Vomiting Pantoprazole Sodium (Protonix Ec Tab) 40 mg PO 0600 [facility] Last Admin: 09/09/18 05:28 Dose: 40 mg Prednisone (Prednisone Tab) 5 mg PO DAILY [facility] Last Admin: 09/09/18 10:02 Dose: 5 mg Tacrolimus (Prograf Cap) 1 mg PO QAM [facility] Last Admin: 09/09/18 18:40 Dose: 1 mg Tobramycin Sulfate (Tobrex 0.3% Ophth Oint) 0 appl OS BID [facility] Last Admin: 09/09/18 18:41 Dose: Not Given - Labs Labs: 09/09/18 07:15 09/09/18 07:15 PT 14.7 SECONDS (9.4-12.5) H 09/09/18 10:00 INR 1.30 09/09/18 10:00 APTT 31.8 Seconds (26.9-38.3) 09/09/18 10:00 - Constitutional Appears: Cachectic - Head Exam Head Exam: ATRAUMATIC - Eye Exam Eye Exam: Normal appearance - ENT Exam ENT Exam: Mucous Membranes Dry - Respiratory Exam Respiratory Exam: NORMAL BREATHING PATTERN - GI/Abdominal Exam GI & Abdominal Exam: Normal Bowel Sounds - Extremities Exam Extremities Exam: Normal Inspection Assessment and Plan (1) Thrombocytopenia Assessment & Plan: multifactorial DIC - improving fibrinogen sepsis, immunosuppression Status: Acute (2) Anemia Assessment & Plan: chronic disease, renal disease immunosuppression MARK per renal transfusion support PRN Status: Chronic (3) Leukocytosis Assessment & Plan: improving with antibiotics Status: Acute
[2018-09-10] MEDS: Levalbuterol 0.63 MG/3 ML Inhal Soln UD IH SCH ×4 (01:30→20:40)
[2018-09-10 07:09] LABS: EOS % 0.1 % (1.5-5.0); HEMOGLOBIN 11.7 g/dL (14.0-18.0); LYMPH # 1.7 (1.2-3.4); LYMPH % 13.1 % (22.0-35.0); MEAN CELL VOLUME 76.7 fl (80.0-105.0); MEAN CORPUSCULAR HEMOGLOBIN 22.2 pg (25.0-35.0); MONO # 0.6 (0.1-0.6); MONO % 4.4 % (1.0-6.0); PLATELET COUNT 80 10^3/uL (120.0-450.0); RBC 5.27 10^6/uL (3.5-6.1); RED CELL DISTRIBUTION WIDTH 20.6 % (11.5-14.5); WHITE BLOOD COUNT 12.9 10^3/uL (4.5-11.0)
[2018-09-10 07:23] LABS: ALB/GLOB RATIO 0.6 (1.1-1.8); ALBUMIN 2.2 g/dL (3.0-4.8); CALCIUM 8.4 mg/dL (8.4-10.5)
[2018-09-10] MEDS: Pantoprazole 40 mg EC Tab PO SCH ×2 (07:42→07:43)
[2018-09-10] MEDS: Insulin Reg-LOW-Coverage SC SCH ×3 (08:53→17:47)
--- NOTE | 2018-09-10 09:27 | RAD ---
Date of service: 09/09/2018 HISTORY: r/o pulmonary edema COMPARISON: 09/03/2018 FINDINGS: LUNGS: There is low lung volume on the right. There is subsegmental atelectasis in the right lower lobe. The left lung is well inflated and clear. PLEURA: No pleural effusions or pneumothorax. CARDIOVASCULAR: The heart is normal in size. Status post median sternotomy. No aortic atherosclerotic calcifications present. OSSEOUS STRUCTURES: Within normal limits for the patient's age. VISUALIZED UPPER ABDOMEN: Normal. OTHER FINDINGS: There is chronic elevation of the right hemidiaphragm. IMPRESSION: No acute findings. Specifically no evidence for pulmonary edema.
[2018-09-10 10:01] LABS: PLATELET COUNT MANUAL 84 K/mm3 (120-450)
[2018-09-10] MEDS: Morphine 2 mg/ml ISec IVP PRN (10:21)
--- NOTE | 2018-09-10 10:55 | PN ---
DATE: 09/10/2018 SUBJECTIVE: The patient is in no distress. OBJECTIVE: VITAL SIGNS: Blood pressure 137/87, heart rates in the 90s. Physical exam is unchanged. Echocardiogram reveals heavily calcified valves where vegetations cannot be ruled out. IMPRESSION: 1. Sepsis. 2. Heavily calcified aortic and mitral valves. 3. History of abdominal aneurysm. 4. End-stage renal disease. Given these findings, we will discuss with the patient about a possible SUHAIL to rule out a vegetation. Carlos Shane MD
--- NOTE | 2018-09-10 13:11 | CP.PCM.PN ---
<Elbert Obrien - Last Filed: 09/10/18 13:08> Subjective - Date & Time of Evaluation Date of Evaluation: 09/10/18 Time of Evaluation: 08:20 - Subjective Subjective: Elbert Obrien D.O. PGY-3, Internal Medicine Resident, Infectious Disease Progress Note 67-year-old -[place] Citizen male with a past medical history of polycystic kidney disease status post renal transplant in 2006, posttransplant diabetes me llitus, status post aortic valve replacement for severe aortic stenosis, large unrepaired AAA, end-stage renal disease on hemodialysis Saturday/ Saturday/Saturday who presents to the emergency department for lethargy and hypotension. Infectious disease consultation was requested for concerns of urinary tract infection. Patient was seen and examined at bedside. Had some trouble sleeping last night. Otherwise no acute complaints. Objective - Vital Signs/Intake and Output Vital Signs (last 24 hours): Temp Pulse Resp BP Pulse Ox 97.5 F L 92 H 18 137/87 94 L 09/10/18 06:00 09/10/18 06:00 09/10/18 06:00 09/10/18 06:00 09/10/18 06:00 Intake and Output: 09/10/18 09/10/18 06:59 18:59 Intake Total 240 Output Total 50 Balance 190 - Medications Medications: Current Medications Acetaminophen (Tylenol 325mg Tab) 650 mg PO Q6 PRN PRN Reason: TEMP>=99.5F Acetaminophen (Tylenol 650 Mg Supp) 650 mg RC Q6H PRN PRN Reason: TEMP>=99.5F Atorvastatin Calcium (Lipitor) 10 mg PO DAILY REPLACED BY [facility] Last Admin: 09/09/18 10:01 Dose: 10 mg Calcitriol (Rocaltrol) 0.75 mcg PO MWF REPLACED BY [facility] Last Admin: 09/08/18 15:19 Dose: 0.75 mcg Cyproheptadine HCl (Periactin) 4 mg PO BID REPLACED BY [facility] Last Admin: 09/09/18 18:44 Dose: 4 mg Ezetimibe (Zetia) 10 mg PO DAILY REPLACED BY [facility] Last Admin: 09/09/18 10:02 Dose: 10 mg Ceftriaxone Sodium (Rocephin 1 Gram Ivpb) 1 gm in 100 mls @ 100 mls/hr IVPB DAILY REPLACED BY [facility]; Protocol Stop: 09/14/18 10:01 Last Admin: 09/09/18 10:02 Dose: 100 mls/hr Insulin Human Regular (Humulin R Low) 0 units SC ACHS REPLACED BY [facility]; Protocol Last Admin: 09/10/18 08:53 Dose: Not Given Levalbuterol HCl (Xopenex) 0.63 mg IH [id number] REPLACED BY [facility] Last Admin: 09/10/18 07:44 Dose: Not Given Metoprolol Tartrate (Lopressor) 25 mg PO BID REPLACED BY [facility] Last Admin: 09/09/18 18:40 Dose: 25 mg Morphine Sulfate (Morphine) 1 mg IVP Q4H PRN PRN Reason: Pain, severe (8-10) Last Admin: 09/10/18 10:21 Dose: 1 mg Ondansetron HCl (Zofran Inj) 4 mg IVP Q4H PRN PRN Reason: Nausea/Vomiting Pantoprazole Sodium (Protonix Ec Tab) 40 mg PO 0600 REPLACED BY [facility] Last Admin: 09/10/18 07:43 Dose: 40 mg Prednisone (Prednisone Tab) 5 mg PO DAILY REPLACED BY [facility] Last Admin: 09/09/18 10:02 Dose: 5 mg Tacrolimus (Prograf Cap) 1 mg PO QAM REPLACED BY [facility] Last Admin: 09/09/18 18:40 Dose: 1 mg Tobramycin Sulfate (Tobrex 0.3% Ophth Oint) 0 appl OS BID REPLACED BY [facility] Last Admin: 09/09/18 18:41 Dose: Not Given - Labs Labs: 09/10/18 06:35 09/10/18 06:35 PT 14.7 SECONDS (9.4-12.5) H 09/09/18 10:00 INR 1.30 09/09/18 10:00 APTT 31.8 Seconds (26.9-38.3) 09/09/18 10:00 - Constitutional Appears: Cachectic, Pleasant, Chronically Ill male - Head Exam Head Exam: ATRAUMATIC, NORMOCEPHALIC, temporal wasting noted - Eye Exam Eye Exam: left eye irritation - ENT Exam ENT Exam: Mucous Membranes Moist - Neck Exam Neck exam: Positive for: Normal Inspection - Respiratory Exam Respiratory Exam: absent: Rales, Rhonchi, Wheezes - Cardiovascular Exam Cardiovascular Exam: +S1, +S2. absent: Rubs - GI/Abdominal Exam GI & Abdominal Exam: palpable abdominal aneurysm, otherwise soft, cachectic - Extremities Exam Additional comments: AVF left upper extremity with palpable thrill - Neuro Exam Neuro exam: awake, alert - Psychiatric Exam Psychiatric exam: Normal Affect, Normal Mood - Skin Skin Exam: Dry, Warm Assessment and Plan - Assessment and Plan (Free Text) Assessment: 67-year-old -[place] Citizen male with a past medical history of polycystic kidney disease status post renal transplant in 2006, posttransplant diabetes mellitus, status post aortic valve replacement for severe aortic stenosis, large unrepaired AAA, end-stage renal disease on hemodialysis Saturday/ Saturday/Saturday who presents to the emergency department for lethargy and hypotension. Infectious disease consultation was requested for concerns of urinary tract infection. Plan: Klebsiella bacteremia 2/2 klebsiella urine Polycystic kidney disease status post renal transplant status post sepsis with ATN status post reinitiation of hemodialysis M/W/F Left eye redness - resolving Aortic stenosis Large abdominal aneurysm Posttransplantation diabetes mellitus Continues to be afebrile Leukocytosis downtrending On ceftriaxone day 4 Echo could not rule out vegetation, cardio following and may do a SUHAIL Repeat blood cultures negative 2/ day 3 Nephro following patient, note reviewed and appreciated Hem/Onc following, note reviewed and appreciated We will follow with you Patient was seen and examined and case to be discussed at length with attending physician Thank you for the pleasure participating in the care of this interesting patient <Bishop Squires - Last Filed: 09/10/18 18:29> Objective - Vital Signs/Intake and Output Vital Signs (last 24 hours): Temp Pulse Resp BP Pulse Ox 98 F 98 H 20 128/78 94 L 09/10/18 14:00 09/10/18 14:00 09/10/18 14:00 09/10/18 14:00 09/10/18 14:00 Intake and Output: 09/10/18 09/10/18 06:59 18:59 Intake Total 240 Output Total 50 Balance 190 - Medications Medications: Current Medications Acetaminophen (Tylenol 325mg Tab) 650 mg PO Q6 PRN PRN Reason: TEMP>=99.5F Acetaminophen (Tylenol 650 Mg Supp) 650 mg RC Q6H PRN PRN Reason: TEMP>=99.5F Atorvastatin Calcium (Lipitor) 10 mg PO DAILY REPLACED BY [facility] Last Admin: 09/10/18 17:19 Dose: 10 mg Calcitriol (Rocaltrol) 0.75 mcg PO MWF REPLACED BY [facility] Last Admin: 09/10/18 17:18 Dose: 0.75 mcg Cyproheptadine HCl (Periactin) 4 mg PO BID REPLACED BY [facility] Last Admin: 09/10/18 17:19 Dose: 4 mg Ezetimibe (Zetia) 10 mg PO DAILY REPLACED BY [facility] Last Admin: 09/10/18 17:19 Dose: 10 mg Famotidine (Pepcid) 40 mg PO HS REPLACED BY [facility] Ceftriaxone Sodium (Rocephin 1 Gram Ivpb) 1 gm in 100 mls @ 100 mls/hr IVPB DAILY REPLACED BY [facility]; Protocol Stop: 09/14/18 10:01 Last Admin: 09/10/18 17:06 Dose: 100 mls/hr Ibuprofen (Motrin Tab) 400 mg PO Q6H PRN PRN Reason: pain severe Insulin Human Regular (Humulin R Low) 0 units SC ACHS REPLACED BY [facility]; Protocol Last Admin: 09/10/18 17:47 Dose: 1 units Levalbuterol HCl (Xopenex) 0.63 mg IH [id number] REPLACED BY [facility] Last Admin: 09/10/18 13:25 Dose: Not Given Lidocaine (Lidoderm) 1 ea TD DAILY REPLACED BY [facility] Last Admin: 09/10/18 17:48 Dose: 1 ea Metoprolol Tartrate (Lopressor) 25 mg PO BID REPLACED BY [facility] Last Admin: 09/10/18 17:19 Dose: 25 mg Morphine Sulfate (Morphine) 1 mg IVP Q8H PRN PRN Reason: Pain, severe (8-10) Last Admin: 09/10/18 17:07 Dose: 1 mg Ondansetron HCl (Zofran Inj) 4 mg IVP Q4H PRN PRN Reason: Nausea/Vomiting Prednisone (Prednisone Tab) 5 mg PO DAILY REPLACED BY [facility] Last Admin: 09/10/18 17:19 Dose: 5 mg Tacrolimus (Prograf Cap) 1 mg PO QAM REPLACED BY [facility] Last Admin: 09/10/18 17:19 Dose: 1 mg Tobramycin Sulfate (Tobrex 0.3% Ophth Oint) 0 appl OS BID REPLACED BY [facility] Last Admin: 09/10/18 17:48 Dose: Not Given - Labs Labs: 09/10/18 06:35 09/10/18 06:35 PT 14.7 SECONDS (9.4-12.5) H 09/09/18 10:00 INR 1.30 09/09/18 10:00 APTT 31.8 Seconds (26.9-38.3) 09/09/18 10:00 Attending/Attestation - Attestation I have personally seen and examined this patient.: Yes I have fully participated in the care of the patient.: Yes I have reviewed all pertinent clinical information, including history, physical exam and plan: Yes
--- NOTE | 2018-09-10 13:36 | CP.PCM.PN ---
<Papi Dunlap - Last Filed: 09/10/18 13:37> Subjective - Date & Time of Evaluation Date of Evaluation: 09/10/18 Time of Evaluation: 13:35 - Subjective Subjective: Nephrology Progress Note (Dr. Wheeler's Service) Patient seen and assessed bedside in HD. No acute events overnight. Patient endorses moderate abdominal pain but denies any N/V/C/D. Patient also reports that he has had very little appetite for the food that he has been available here but that he would like to try further nutritional supplementation. Further 12 point ROS was reviewed and unremarkable at this time. Objective - Vital Signs/Intake and Output Vital Signs (last 24 hours): Temp Pulse Resp BP Pulse Ox 97.5 F L 92 H 18 137/87 94 L 09/10/18 06:00 09/10/18 06:00 09/10/18 06:00 09/10/18 06:00 09/10/18 06:00 Intake and Output: 09/10/18 09/10/18 06:59 18:59 Intake Total 240 Output Total 50 Balance 190 - Medications Medications: Current Medications Acetaminophen (Tylenol 325mg Tab) 650 mg PO Q6 PRN PRN Reason: TEMP>=99.5F Acetaminophen (Tylenol 650 Mg Supp) 650 mg RC Q6H PRN PRN Reason: TEMP>=99.5F Atorvastatin Calcium (Lipitor) 10 mg PO DAILY [facility] Last Admin: 09/09/18 10:01 Dose: 10 mg Calcitriol (Rocaltrol) 0.75 mcg PO MWF [facility] Last Admin: 09/08/18 15:19 Dose: 0.75 mcg Cyproheptadine HCl (Periactin) 4 mg PO BID [facility] Last Admin: 09/09/18 18:44 Dose: 4 mg Ezetimibe (Zetia) 10 mg PO DAILY [facility] Last Admin: 09/09/18 10:02 Dose: 10 mg Ceftriaxone Sodium (Rocephin 1 Gram Ivpb) 1 gm in 100 mls @ 100 mls/hr IVPB DAILY [facility]; Protocol Stop: 09/14/18 10:01 Last Admin: 09/09/18 10:02 Dose: 100 mls/hr Insulin Human Regular (Humulin R Low) 0 units SC ACHS [facility]; Protocol Last Admin: 09/10/18 08:53 Dose: Not Given Levalbuterol HCl (Xopenex) 0.63 mg IH [id number] [facility] Last Admin: 09/10/18 13:25 Dose: Not Given Metoprolol Tartrate (Lopressor) 25 mg PO BID [facility] Last Admin: 09/09/18 18:40 Dose: 25 mg Morphine Sulfate (Morphine) 1 mg IVP Q4H PRN PRN Reason: Pain, severe (8-10) Last Admin: 09/10/18 10:21 Dose: 1 mg Ondansetron HCl (Zofran Inj) 4 mg IVP Q4H PRN PRN Reason: Nausea/Vomiting Pantoprazole Sodium (Protonix Ec Tab) 40 mg PO 0600 [facility] Last Admin: 09/10/18 07:43 Dose: 40 mg Prednisone (Prednisone Tab) 5 mg PO DAILY [facility] Last Admin: 09/09/18 10:02 Dose: 5 mg Tacrolimus (Prograf Cap) 1 mg PO QAM [facility] Last Admin: 09/09/18 18:40 Dose: 1 mg Tobramycin Sulfate (Tobrex 0.3% Ophth Oint) 0 appl OS BID [facility] Last Admin: 09/09/18 18:41 Dose: Not Given - Labs Labs: 09/10/18 06:35 09/10/18 06:35 PT 14.7 SECONDS (9.4-12.5) H 09/09/18 10:00 INR 1.30 09/09/18 10:00 APTT 31.8 Seconds (26.9-38.3) 09/09/18 10:00 - Additional Findings Additional findings: - Constitutional Appears: No Acute Distress, Chronically Ill - Head Exam Head Exam: ATRAUMATIC - Eye Exam Eye Exam: EOMI - ENT Exam ENT Exam: Mucous Membranes Moist - Neck Exam Neck Exam: Full ROM - Respiratory Exam Respiratory Exam: Clear to Ausculation Bilateral, NORMAL BREATHING PATTERN - Cardiovascular Exam Cardiovascular Exam: REGULAR RHYTHM, +S1, +S2 - GI/Abdominal Exam GI & Abdominal Exam: Soft, Normal Bowel Sounds, Pulsatile Mass (Hypogastric/RLQ area). absent: Tenderness - Extremities Exam Extremities Exam: absent: Calf Tenderness, Pedal Edema Additional comments: HD access of left arm with positive bruit and negative for signs of any clinical infection of the surrounding soft tissues - Neurological Exam Neurological Exam: Alert, Awake, Oriented x3 - Psychiatric Exam Psychiatric exam: Normal Affect, Normal Mood - Skin Skin Exam: Dry, Warm Assessment and Plan - Assessment and Plan (Free Text) Assessment: 67 year old male with a past medical history significant for ADPKD s/p renal allograft (2006), ESRD on HD MWF, post-transplant DM2, HTN, unrepaired severe , and unrepaired infrarenal AAA who was admitted for lethargy and persistent diarrhea. Nephrology was consulted for ESRD care. Plan: 1. ESRD on HD -HD today (09/10) with 500mls UF -Continue Calcitriol 0.75mcg with HD -Relatively stable electrolyte and volume status currently; Mild hyperkalemia noted -Continue to monitor I/O's -Avoid nephrotoxic agents -Renally dose medications as indicated 2. Diarrhea -Resolved -Stool studies pending 3. HTN -Continue home Metoprolol -Holding home Clonidine in setting of hypotension -Currently with adequate control 4. Klebsiella Bacteremia secondary to Klebsiella UTI -Continue Rocephin as ordered -Repeat blood cultures negative -Cardiology consulted for possible SUHAIL, per primary team -Will likely need prolonged course of antibiotics as patient has renal transplant -Further management as per ID and Cardiology 5. Immunosuppression -Continue AM Tacrolimus as ordered -Continue Prednisone 5mg daily to avoid adrenal insufficiency -Will continue to taper this as an outpatient upon discharge 6. AAA -Can use IV contrast for further evaluation, should this be indicated -IR consulted, all recommendations appreciated 7. Thrombocytopenia -Concern for DIC noted but no transfusions indicated at this time, as per Hematology -Hematology consulted, all recommendations appreciated 8. Anemia in ESRD -Continues to be at goal -Will continue long acting EPO as outpatient 9. Failure to Thrive -Continue nutritional supplementation as ordered Patient seen and case discussed with attending, Dr. Wheeler. Papi Dunlap PGY2 <Dandy Wheeler - Last Filed: 09/11/18 06:14> Objective - Vital Signs/Intake and Output Vital Signs (last 24 hours): Temp Pulse Resp BP Pulse Ox 98 F 98 H 20 128/78 94 L 09/10/18 14:00 09/10/18 14:00 09/10/18 14:00 09/10/18 14:00 09/10/18 14:00 Intake and Output: 09/10/18 09/11/18 18:59 06:59 Intake Total 300 Balance 300 - Medications Medications: Current Medications Acetaminophen (Tylenol 325mg Tab) 650 mg PO Q6 PRN PRN Reason: TEMP>=99.5F Acetaminophen (Tylenol 650 Mg Supp) 650 mg RC Q6H PRN PRN Reason: TEMP>=99.5F Atorvastatin Calcium (Lipitor) 10 mg PO DAILY [facility] Last Admin: 09/10/18 17:19 Dose: 10 mg Calcitriol (Rocaltrol) 0.75 mcg PO MWF [facility] Last Admin: 09/10/18 17:18 Dose: 0.75 mcg Cyproheptadine HCl (Periactin) 4 mg PO BID [facility] Last Admin: 09/10/18 17:19 Dose: 4 mg Ezetimibe (Zetia) 10 mg PO DAILY [facility] Last Admin: 09/10/18 17:19 Dose: 10 mg Famotidine (Pepcid) 40 mg PO HS [facility] Last Admin: 09/10/18 21:31 Dose: 40 mg Ceftriaxone Sodium (Rocephin 1 Gram Ivpb) 1 gm in 100 mls @ 100 mls/hr IVPB DAILY [facility]; Protocol Stop: 09/14/18 10:01 Last Admin: 09/10/18 17:06 Dose: 100 mls/hr Ibuprofen (Motrin Tab) 400 mg PO Q6H PRN PRN Reason: pain severe Insulin Human Regular (Humulin R Low) 0 units SC ACHS [facility]; Protocol Last Admin: 09/10/18 17:47 Dose: 1 units Levalbuterol HCl (Xopenex) 0.63 mg IH [id number] [facility] Last Admin: 09/11/18 04:20 Dose: 0.63 mg Lidocaine (Lidoderm) 1 ea TD DAILY [facility] Last Admin: 09/10/18 17:48 Dose: 1 ea Metoprolol Tartrate (Lopressor) 25 mg PO BID [facility] Last Admin: 09/10/18 17:19 Dose: 25 mg Morphine Sulfate (Morphine) 1 mg IVP Q8H PRN PRN Reason: Pain, severe (8-10) Last Admin: 09/10/18 17:07 Dose: 1 mg Ondansetron HCl (Zofran Inj) 4 mg IVP Q4H PRN PRN Reason: Nausea/Vomiting Prednisone (Prednisone Tab) 5 mg PO DAILY [facility] Last Admin: 09/10/18 17:19 Dose: 5 mg Tacrolimus (Prograf Cap) 1 mg PO QAM [facility] Last Admin: 09/10/18 17:19 Dose: 1 mg Tobramycin Sulfate (Tobrex 0.3% Ophth Oint) 0 appl OS BID [facility] Last Admin: 09/10/18 17:48 Dose: Not Given - Labs Labs: 09/10/18 06:35 09/10/18 06:35 PT 14.7 SECONDS (9.4-12.5) H 09/09/18 10:00 INR 1.30 09/09/18 10:00 APTT 31.8 Seconds (26.9-38.3) 09/09/18 10:00 Assessment and Plan (1) ESRD (end stage renal disease) Status: Chronic (2) Diarrhea Status: Acute (3) Failure to thrive Status: Acute (4) HTN (hypertension) Status: Acute (5) UTI (urinary tract infection) Status: Acute (6) Anemia Status: Chronic (7) Immunosuppression Status: Acute (8) AAA (abdominal aortic aneurysm) Status: Chronic (9) Renal transplant, status post Status: Chronic Attending/Attestation - Attestation I have personally seen and examined this patient.: Yes I have fully participated in the care of the patient.: Yes I have reviewed all pertinent clinical information, including history, physical exam and plan: Yes Notes (Text): Patient seen and examined; I agree with the resident's note as above with the following additions/edits: 67 yo M w/ htn, post-transplant DM, s/p renal allograft (2006, now failed), unrepaired large AAA, severe , and ESRD on HD, admitted with severe sepsis; Patient seen on HD; continues to have failure to thrive with minimal PO intake; exam doesn't show any increased edema and lungs clear despite not getting any UF on HD lately; trying for 500 cc net UF if BP tolerates; BP currently controlled on metoprolol only, will continue the same; Severe sepsis, on ceftriaxone for Kleb pneumo bacteremia/UTI, repeat blood cultures negative; On tacrolimus 1 mg daily and prednisone 5 g daily for transplant immunosuppression; tacrolimus dose being tapered down, will continue current dose for now; Anemia of CKD, hgb above goal, no need to re-dose MARK for now; discussed with hematology regarding concern for DIC, no plans for transfusing blood products at this time; if blood products needed, will recommend to transfuse on HD.
[2018-09-10] MEDS ORDERED: Morphine 2 mg/ml ISec IVP PRN (14:08)
--- NOTE | 2018-09-10 14:11 | CP.PCM.PN ---
<Kelby John - Last Filed: 09/10/18 14:03> Subjective - Date & Time of Evaluation Date of Evaluation: 09/10/18 Time of Evaluation: 14:03 - Subjective Subjective: Medicine progress note (Dr. Knox) - Dora, PGY -2 Patient seen and examined at bedside. Complains of no pain right now, got morphine at 8:30P last night; No diarrhea overnight; did not eat breakfast this am. Objective - Vital Signs/Intake and Output Vital Signs (last 24 hours): Temp Pulse Resp BP Pulse Ox 97.5 F L 92 H 18 137/87 94 L 09/10/18 06:00 09/10/18 06:00 09/10/18 06:00 09/10/18 06:00 09/10/18 06:00 Intake and Output: 09/10/18 09/10/18 06:59 18:59 Intake Total 240 Output Total 50 Balance 190 - Medications Medications: Current Medications Acetaminophen (Tylenol 325mg Tab) 650 mg PO Q6 PRN PRN Reason: TEMP>=99.5F Acetaminophen (Tylenol 650 Mg Supp) 650 mg RC Q6H PRN PRN Reason: TEMP>=99.5F Atorvastatin Calcium (Lipitor) 10 mg PO DAILY [facility] Last Admin: 09/09/18 10:01 Dose: 10 mg Calcitriol (Rocaltrol) 0.75 mcg PO MWF [facility] Last Admin: 09/08/18 15:19 Dose: 0.75 mcg Cyproheptadine HCl (Periactin) 4 mg PO BID [facility] Last Admin: 09/09/18 18:44 Dose: 4 mg Ezetimibe (Zetia) 10 mg PO DAILY [facility] Last Admin: 09/09/18 10:02 Dose: 10 mg Ceftriaxone Sodium (Rocephin 1 Gram Ivpb) 1 gm in 100 mls @ 100 mls/hr IVPB DAILY [facility]; Protocol Stop: 09/14/18 10:01 Last Admin: 09/09/18 10:02 Dose: 100 mls/hr Insulin Human Regular (Humulin R Low) 0 units SC ACHS [facility]; Protocol Last Admin: 09/10/18 08:53 Dose: Not Given Levalbuterol HCl (Xopenex) 0.63 mg IH [id number] [facility] Last Admin: 09/10/18 13:25 Dose: Not Given Metoprolol Tartrate (Lopressor) 25 mg PO BID [facility] Last Admin: 09/09/18 18:40 Dose: 25 mg Morphine Sulfate (Morphine) 1 mg IVP Q4H PRN PRN Reason: Pain, severe (8-10) Last Admin: 09/10/18 10:21 Dose: 1 mg Ondansetron HCl (Zofran Inj) 4 mg IVP Q4H PRN PRN Reason: Nausea/Vomiting Pantoprazole Sodium (Protonix Ec Tab) 40 mg PO 0600 [facility] Last Admin: 09/10/18 07:43 Dose: 40 mg Prednisone (Prednisone Tab) 5 mg PO DAILY [facility] Last Admin: 09/09/18 10:02 Dose: 5 mg Tacrolimus (Prograf Cap) 1 mg PO QAM [facility] Last Admin: 09/09/18 18:40 Dose: 1 mg Tobramycin Sulfate (Tobrex 0.3% Ophth Oint) 0 appl OS BID [facility] Last Admin: 09/09/18 18:41 Dose: Not Given - Labs Labs: 09/10/18 06:35 09/10/18 06:35 PT 14.7 SECONDS (9.4-12.5) H 09/09/18 10:00 INR 1.30 09/09/18 10:00 APTT 31.8 Seconds (26.9-38.3) 09/09/18 10:00 - Constitutional Appears: Well - Head Exam Head Exam: ATRAUMATIC, NORMAL INSPECTION, NORMOCEPHALIC - Eye Exam Eye Exam: EOMI, Normal appearance, PERRL Pupil Exam: NORMAL ACCOMODATION, PERRL - ENT Exam ENT Exam: Mucous Membranes Moist, Normal Exam - Neck Exam Neck Exam: Full ROM, Normal Inspection. absent: Lymphadenopathy - Respiratory Exam Respiratory Exam: Clear to Ausculation Bilateral, NORMAL BREATHING PATTERN - Cardiovascular Exam Cardiovascular Exam: REGULAR RHYTHM, +S1, +S2. absent: Murmur - GI/Abdominal Exam GI & Abdominal Exam: Soft, Normal Bowel Sounds. absent: Tenderness - Extremities Exam Extremities Exam: Full ROM, Normal Capillary Refill, Normal Inspection. absent: Joint Swelling, Pedal Edema - Back Exam Back Exam: NORMAL INSPECTION - Neurological Exam Neurological Exam: Alert, Awake, CN II-XII Intact, Normal Gait, Oriented x3 - Psychiatric Exam Psychiatric exam: Normal Affect, Normal Mood - Skin Skin Exam: Dry, Intact, Normal Color, Warm Assessment and Plan - Assessment and Plan (Free Text) Assessment: 67 M presenting with K. Pneumonia UTI ECHO was read as not being able to rule out vegetations. Plan Sepsis secondary to K. pneumoniae UTI - Continue Rocephin - ACEP for fever - ID on consult: Dr. Squires - Cardio consult - Dr. Shane K. Pneumoniae bacteremia - As above Thrombocytopenia, likely 2/2 Sepsis vs Tacrolimus vs DIC - Dr. Leigh on consult - recommends holding Tacrolimus if plts < 50K Wants to trend fibrinogen AAA - Stable, no acute intervention ESRD on HD MW - Dr. Wheeler on consult - HD Today - Calcitriol on HD starting 09/08 - s/p Right kidney transplant Abdominal pain - GI on consult - Lidoderm patch, change Morphine to q8; NSAIDs and change protonix to pepcid HTN - Continue metoprolol; hold home Clonidine S/p R Kidney Transplant - Continue Tacrolimus Chronic anemia, CKD - Continue EPO on HD per nephro <Dandy Wheeler - Last Filed: 09/11/18 06:13> Objective - Vital Signs/Intake and Output Vital Signs (last 24 hours): Temp Pulse Resp BP Pulse Ox 98 F 98 H 20 128/78 94 L 09/10/18 14:00 09/10/18 14:00 09/10/18 14:00 09/10/18 14:00 09/10/18 14:00 Intake and Output: 09/10/18 09/11/18 18:59 06:59 Intake Total 300 Balance 300 - Medications Medications: Current Medications Acetaminophen (Tylenol 325mg Tab) 650 mg PO Q6 PRN PRN Reason: TEMP>=99.5F Acetaminophen (Tylenol 650 Mg Supp) 650 mg RC Q6H PRN PRN Reason: TEMP>=99.5F Atorvastatin Calcium (Lipitor) 10 mg PO DAILY [facility] Last Admin: 09/10/18 17:19 Dose: 10 mg Calcitriol (Rocaltrol) 0.75 mcg PO F [facility] Last Admin: 09/10/18 17:18 Dose: 0.75 mcg Cyproheptadine HCl (Periactin) 4 mg PO BID [facility] Last Admin: 09/10/18 17:19 Dose: 4 mg Ezetimibe (Zetia) 10 mg PO DAILY [facility] Last Admin: 09/10/18 17:19 Dose: 10 mg Famotidine (Pepcid) 40 mg PO HS [facility] Last Admin: 09/10/18 21:31 Dose: 40 mg Ceftriaxone Sodium (Rocephin 1 Gram Ivpb) 1 gm in 100 mls @ 100 mls/hr IVPB DAILY [facility]; Protocol Stop: 09/14/18 10:01 Last Admin: 09/10/18 17:06 Dose: 100 mls/hr Ibuprofen (Motrin Tab) 400 mg PO Q6H PRN PRN Reason: pain severe Insulin Human Regular (Humulin R Low) 0 units SC ACHS [facility]; Protocol Last Admin: 09/10/18 17:47 Dose: 1 units Levalbuterol HCl (Xopenex) 0.63 mg IH [id number] [facility] Last Admin: 09/11/18 04:20 Dose: 0.63 mg Lidocaine (Lidoderm) 1 ea TD DAILY [facility] Last Admin: 09/10/18 17:48 Dose: 1 ea Metoprolol Tartrate (Lopressor) 25 mg PO BID [facility] Last Admin: 09/10/18 17:19 Dose: 25 mg Morphine Sulfate (Morphine) 1 mg IVP Q8H PRN PRN Reason: Pain, severe (8-10) Last Admin: 09/10/18 17:07 Dose: 1 mg Ondansetron HCl (Zofran Inj) 4 mg IVP Q4H PRN PRN Reason: Nausea/Vomiting Prednisone (Prednisone Tab) 5 mg PO DAILY [facility] Last Admin: 09/10/18 17:19 Dose: 5 mg Tacrolimus (Prograf Cap) 1 mg PO QAM [facility] Last Admin: 09/10/18 17:19 Dose: 1 mg Tobramycin Sulfate (Tobrex 0.3% Ophth Oint) 0 appl OS BID [facility] Last Admin: 09/10/18 17:48 Dose: Not Given - Labs Labs: 09/10/18 06:35 09/10/18 06:35 PT 14.7 SECONDS (9.4-12.5) H 09/09/18 10:00 INR 1.30 09/09/18 10:00 APTT 31.8 Seconds (26.9-38.3) 09/09/18 10:00 Assessment and Plan (1) ESRD (end stage renal disease) Status: Chronic (2) Diarrhea Status: Acute (3) Failure to thrive Status: Acute (4) HTN (hypertension) Status: Acute (5) UTI (urinary tract infection) Status: Acute (6) Anemia Status: Chronic (7) Immunosuppression Status: Acute (8) AAA (abdominal aortic aneurysm) Status: Chronic (9) Renal transplant, status post Status: Chronic Attending/Attestation - Attestation I have personally seen and examined this patient.: Yes I have fully participated in the care of the patient.: Yes I have reviewed all pertinent clinical information, including history, physical exam and plan: Yes Notes (Text): Patient seen and examined; I agree with the resident's note as above with the following additions/edits: 67 yo M w/ htn, post-transplant DM, s/p renal allograft (2006, now failed), unrepaired large AAA, severe , and ESRD on HD, admitted with severe sepsis; Patient seen on HD; continues to have failure to thrive with minimal PO intake; exam doesn't show any increased edema and lungs clear despite not getting any UF on HD lately; trying for 500 cc net UF if BP tolerates; BP currently controlled on metoprolol only, will continue the same; Severe sepsis, on ceftriaxone for Kleb pneumo bacteremia/UTI, repeat blood cultures negative; On tacrolimus 1 mg daily and prednisone 5 g daily for transplant immunosuppression; tacrolimus dose being tapered down, will continue current dose for now; Anemia of CKD, hgb above goal, no need to re-dose MARK for now; discussed with hematology regarding concern for DIC, no plans for transfusing blood products at this time; if blood products needed, will recommend to transfuse on HD.
--- NOTE | 2018-09-10 14:51 | PN ---
DATE: 09/10/2018 SUBJECTIVE: The patient was seen in hemodialysis. The patient's original room was 577, bed 1. The patient was seen lying in the bed. The patient is comfortable, alert, in no distress. Overnight nurse's notes were reviewed. According to the nurse's note, the patient was complaining of abdominal pain. No other complaints were documented by the nurses in the last 12-24 hours. PHYSICAL EXAMINATION: VITAL SIGNS: T-max is 97.8, heart rate 92, 71, 68, blood pressure 137/87, 129/83, 130/86, respirations 18, and O2 sat 94%-98%. GENERAL: The patient was seen lying in the bed. HEENT: Head examination normocephalic, atraumatic. HEENT examination shows positive facial muscle wasting. Positive cachexia. The patient does not appear to be in any distress. HEENT examination shows pinkish pale conjunctivae. Anicteric sclerae. No oropharyngeal lesion. NECK: No neck rigidity. CHEST: Kyphosis. Positive median sternotomy surgical scar. CARDIOVASCULAR: Shows S1 and S2, irregular rhythm. Positive systolic murmur left sternal border, right second intercostal space, left second intercostal space. ABDOMEN: Soft. Positive bowel sounds. Positive mid abdominal pulsation. GENITALIA: Male. RECTAL: Deferred. LOWER EXTREMITIES: Shows pitting edema. Left upper extremity showed positive AV fistula, positive dialysis catheter. MUSCULOSKELETAL: Examination shows body mass index of 14.3. NEUROLOGIC: Without any gross deficit. Gait examination is not tested. DIAGNOSTICS DATA: 09/10/2018, WBC is down to 12.9 from peak WBC of 20,000, hemoglobin and hematocrit 11.7 and 40.4, MCV 76, platelet 84,000, granulocytes and 82% segs. PT and PTT from 09/09/2018 is 14.7 and 31.8. fibrinogen degradation product greater than 40. We did not give any treatment for hyperkalemia. Sodium 139, potassium 5.4, chloride 103, CO2 of 27, anion gap 16, BUN 36, creatinine 3.3, GFR 23, glucose 162, calcium 8.4, phosphorus 2.7, alk phos 136, and albumin 2.2. Chest x-ray report was noted. IMPRESSION: 1. Abdominal pain, etiology indeterminate. 2. Klebsiella pneumoniae urinary tract infection and Klebsiella pneumoniae bacteremia and sepsis. 3. Febrile illness. 4. Leukocytosis with granulocytosis. 5. Disseminated intravascular coagulation with hypofibrinogenemia and elevated fibrinogen degradation product. 6. Non-hemolyzed hyperkalemia. 7. End-stage renal disease, hemodialysis dependent. 8. Uncontrolled insulin-requiring diabetes mellitus with and hemoglobin A1c of 12.4. 9. Mild protein malnutrition and hypoalbuminemia. 10. Klebsiella pneumoniae urinary tract infection with proteinuria, bacteruria, pyuria, and microscopic hematuria. 11. Right lower lobe subsegmental atelectasis with right low lung volume. 12. Chronic right maral-diaphragm elevation. 13. Small bilateral pleural effusion. 14. Right lower lobe consolidation versus pneumonia. 15. Polycystic kidneys with right lower quadrant renal transplant. 16. Large infrarenal abdominal aortic aneurysm 13 x 9 cm. 17. Cachexia. 18. Bilateral polycystic kidney. 19. Hypertensive cardiovascular disease. 20. Small left ventricular cavity and severe concentric left ventricular hypertrophy with hypertrophic cardiomyopathy with grade 1 abnormal relaxation pattern. 21. Right ventricular hypertrophy. 22. Severely thickened aortic and mitral valve with inability to exclude vegetation. 23. Thrombocytopenia. 24. Right axis deviation with age indeterminate inferior infarct and anterolateral coronary ischemic changes. 25. Thrombocytopenia with disseminated intravascular coagulation. 26. Immunosuppressed status. 27. Uncontrolled insulin-requiring diabetes mellitus with hemoglobin A1c of 12.4 and fructosamine of 454. PLAN: At this time, the patient is presently getting hemodialysis. The patient has been ordered repeat labs. Repeat blood cultures from 09/07/2018 are negative. CONSULTATIONS: Nephrology, Cardiology for transesophageal echo, Intervention Radiology, Gastroenterology, Hematology, Infectious Disease, and TCU evaluation ordered. CURRENT MEDICATIONS: Humulin low-dose sliding scale coverage, Lipitor 10 mg daily, Lopressor 25 mg twice a day, Periactin 4 mg twice a day, prednisone 5 mg daily, Prograf 1 mg p.o. daily. Protonix 40 mg daily, Rocaltrol 0.75 mcg Saturday, Saturday and Saturday, Rocephin 1 g IV daily, Tobradex eye ointment, Tylenol p.r.n., Xopenex nebulizer every 6 hours, Zetia 10 mg, and Zofran IV every 4 hours. Chest PT, incentive spirometry, oxygen p.r.n. Nonpharmacological DVT prophylaxis, out of bed, physical therapy, occupational therapy. The patient is seen by physical therapist. Recommendation by Physical Therapy. The patient seen by Physical Therapy on 09/09/2018. Recommendation has now been changed to continue PT, subacute rehab. Initial physical therapy evaluation from 09/06/2018 was home with surmises, but as of yesterday physical therapy recommendations have been revised and updated. We will await further recommendations from Infectious Disease regarding the duration of the IV antibiotic. TCU evaluation and transfer would be considered. If the patient needs short-term IV antibiotic, the patient's IV antibiotic duration will be dependent upon transesophageal echo. If the transesophageal echo shows endocarditis, the patient will most likely need long-term IV antibiotic. The patient has been updated about his condition, diagnostic test results. We will await further recommendations. Dictated and electronically signed, not read. Mart Knox MD
[2018-09-10] MEDS: cefTRIAXone 1 gm 1 GM/100 ML BAG IVPB SCH (17:06)
[2018-09-10] MEDS: Lidocaine 5% Patch TD SCH (17:48)
[2018-09-10] MEDS: Tobramycin 0.3% OPH OINT OS SCH (17:48)
--- NOTE | 2018-09-10 23:14 | CP.PCM.PN ---
Subjective - Date & Time of Evaluation Date of Evaluation: 09/10/18 Time of Evaluation: 18:00 - Subjective Subjective: Has abdominal pain. Objective - Vital Signs/Intake and Output Vital Signs (last 24 hours): Temp Pulse Resp BP Pulse Ox 98 F 98 H 20 128/78 94 L 09/10/18 14:00 09/10/18 14:00 09/10/18 14:00 09/10/18 14:00 09/10/18 14:00 Intake and Output: 09/10/18 09/11/18 18:59 06:59 Intake Total 120 Balance 120 - Medications Medications: Current Medications Acetaminophen (Tylenol 325mg Tab) 650 mg PO Q6 PRN PRN Reason: TEMP>=99.5F Acetaminophen (Tylenol 650 Mg Supp) 650 mg RC Q6H PRN PRN Reason: TEMP>=99.5F Atorvastatin Calcium (Lipitor) 10 mg PO DAILY [facility] Last Admin: 09/10/18 17:19 Dose: 10 mg Calcitriol (Rocaltrol) 0.75 mcg PO MWF [facility] Last Admin: 09/10/18 17:18 Dose: 0.75 mcg Cyproheptadine HCl (Periactin) 4 mg PO BID [facility] Last Admin: 09/10/18 17:19 Dose: 4 mg Ezetimibe (Zetia) 10 mg PO DAILY [facility] Last Admin: 09/10/18 17:19 Dose: 10 mg Famotidine (Pepcid) 40 mg PO HS [facility] Last Admin: 09/10/18 21:31 Dose: 40 mg Ceftriaxone Sodium (Rocephin 1 Gram Ivpb) 1 gm in 100 mls @ 100 mls/hr IVPB DAILY [facility]; Protocol Stop: 09/14/18 10:01 Last Admin: 09/10/18 17:06 Dose: 100 mls/hr Ibuprofen (Motrin Tab) 400 mg PO Q6H PRN PRN Reason: pain severe Insulin Human Regular (Humulin R Low) 0 units SC ACHS [facility]; Protocol Last Admin: 09/10/18 17:47 Dose: 1 units Levalbuterol HCl (Xopenex) 0.63 mg IH [id number] [facility] Last Admin: 09/10/18 20:40 Dose: 0.63 mg Lidocaine (Lidoderm) 1 ea TD DAILY [facility] Last Admin: 09/10/18 17:48 Dose: 1 ea Metoprolol Tartrate (Lopressor) 25 mg PO BID [facility] Last Admin: 09/10/18 17:19 Dose: 25 mg Morphine Sulfate (Morphine) 1 mg IVP Q8H PRN PRN Reason: Pain, severe (8-10) Last Admin: 09/10/18 17:07 Dose: 1 mg Ondansetron HCl (Zofran Inj) 4 mg IVP Q4H PRN PRN Reason: Nausea/Vomiting Prednisone (Prednisone Tab) 5 mg PO DAILY [facility] Last Admin: 09/10/18 17:19 Dose: 5 mg Tacrolimus (Prograf Cap) 1 mg PO QAM [facility] Last Admin: 09/10/18 17:19 Dose: 1 mg Tobramycin Sulfate (Tobrex 0.3% Ophth Oint) 0 appl OS BID [facility] Last Admin: 09/10/18 17:48 Dose: Not Given - Labs Labs: 09/10/18 06:35 09/10/18 06:35 PT 14.7 SECONDS (9.4-12.5) H 09/09/18 10:00 INR 1.30 09/09/18 10:00 APTT 31.8 Seconds (26.9-38.3) 09/09/18 10:00 - Constitutional Appears: Cachectic - Head Exam Head Exam: ATRAUMATIC - Eye Exam Eye Exam: Normal appearance - ENT Exam ENT Exam: Mucous Membranes Dry - Respiratory Exam Respiratory Exam: NORMAL BREATHING PATTERN - Cardiovascular Exam Cardiovascular Exam: +S1, +S2 - GI/Abdominal Exam GI & Abdominal Exam: Normal Bowel Sounds Assessment and Plan (1) Thrombocytopenia Assessment & Plan: multifactorial DIC - fibrinogen dipped today sepsis, immunosuppression Status: Acute (2) Anemia Assessment & Plan: chronic disease, renal disease immunosuppression MARK per renal transfusion support PRN Status: Chronic (3) Leukocytosis Assessment & Plan: improving with antibiotics Status: Acute
[2018-09-11] MEDS: Levalbuterol 0.63 MG/3 ML Inhal Soln UD IH SCH ×4 (04:20→21:00)
[2018-09-11 07:44] LABS: HEMOGLOBIN 11.3 g/dL (14.0-18.0); LYMPH # 1.2 (1.2-3.4); MEAN CELL VOLUME 76.1 fl (80.0-105.0); MEAN CORPUSCULAR HEMOGLOBIN 21.9 pg (25.0-35.0); MEAN CORPUSCULAR HGB CONC 28.8 g/dl (31.0-37.0); MONO # 0.3 (0.1-0.6); MONO % 3.1 % (1.0-6.0); PLATELET COUNT 79 10^3/uL (120.0-450.0); RBC 5.15 10^6/uL (3.5-6.1); RED CELL DISTRIBUTION WIDTH 20.3 % (11.5-14.5); WHITE BLOOD COUNT 10.5 10^3/uL (4.5-11.0)
[2018-09-11 08:06] LABS: ALB/GLOB RATIO 0.7 (1.1-1.8); ALBUMIN 2.3 g/dL (3.0-4.8); CALCIUM 8.2 mg/dL (8.4-10.5)
[2018-09-11 09:02] LABS: PLATELET COUNT MANUAL 67 K/mm3 (120-450)
[2018-09-11] MEDS: cefTRIAXone 1 gm 1 GM/100 ML BAG IVPB SCH (09:28)
[2018-09-11] MEDS: Insulin Reg-LOW-Coverage SC SCH ×3 (09:29→17:27)
[2018-09-11] MEDS: Lidocaine 5% Patch TD SCH (09:30)
--- NOTE | 2018-09-11 09:57 | PN ---
DATE: 09/11/2018 SUBJECTIVE: The patient is comfortable. No shortness of breath noted. PHYSICAL EXAMINATION: VITAL SIGNS: Blood pressure 118/94, heart rates in the 80s. NECK: Negative JVD. LUNGS: Without rales. HEART: S1, S2. EXTREMITIES: Without edema. LABORATORY DATA: Hemoglobin is 11.3, potassium is 4.5. IMPRESSION: 1. End-stage renal disease. 2. Bacteremia. 3. Heavily calcified aortic and mitral valves. 4. History of abdominal aneurysm. PLAN: Given these findings, the patient is to get SUHAIL today to rule out valvular endocarditis. Carlos Shane MD
--- NOTE | 2018-09-11 10:25 | CP.PCM.PN ---
Subjective - Date & Time of Evaluation Date of Evaluation: 09/11/18 Time of Evaluation: 10:21 - Subjective Subjective: Nephrology Progress Note (Dr. Wheeler's Service): Patient seen and assessed at bedside. Patient noted to have needed NS bolus after HD yesterday with 500ml UF. Patient's BP responded adequately to this intervention. Patient noted to be more awake and alert during this examination. He reports that he even had the appetite for a small breakfast this AM. He is scheduled for SUHAIL this afternoon and has good insight into what this procedure is. He denies any complaints and further 12 point ROS unremarkable at this time. Objective - Vital Signs/Intake and Output Vital Signs (last 24 hours): Temp Pulse Resp BP Pulse Ox 98 F 88 18 118/94 H 100 09/11/18 06:00 09/11/18 09:29 09/11/18 06:00 09/11/18 09:29 09/11/18 06:00 Intake and Output: 09/11/18 09/11/18 06:59 18:59 Intake Total 300 Balance 300 - Medications Medications: Current Medications Acetaminophen (Tylenol 325mg Tab) 650 mg PO Q6 PRN PRN Reason: TEMP>=99.5F Acetaminophen (Tylenol 650 Mg Supp) 650 mg RC Q6H PRN PRN Reason: TEMP>=99.5F Atorvastatin Calcium (Lipitor) 10 mg PO DAILY [facility] Last Admin: 09/10/18 17:19 Dose: 10 mg Calcitriol (Rocaltrol) 0.75 mcg PO MWF [facility] Last Admin: 09/10/18 17:18 Dose: 0.75 mcg Cyproheptadine HCl (Periactin) 4 mg PO BID [facility] Last Admin: 09/10/18 17:19 Dose: 4 mg Ezetimibe (Zetia) 10 mg PO DAILY [facility] Last Admin: 09/10/18 17:19 Dose: 10 mg Famotidine (Pepcid) 40 mg PO HS [facility] Last Admin: 09/10/18 21:31 Dose: 40 mg Ceftriaxone Sodium (Rocephin 1 Gram Ivpb) 1 gm in 100 mls @ 100 mls/hr IVPB DAILY [facility]; Protocol Stop: 09/14/18 10:01 Last Admin: 09/11/18 09:28 Dose: 100 mls/hr Insulin Human Regular (Humulin R Low) 0 units SC [facility]; Protocol Last Admin: 09/11/18 09:29 Dose: Not Given Levalbuterol HCl (Xopenex) 0.63 mg IH [id number] [facility] Last Admin: 09/11/18 07:47 Dose: 0.63 mg Lidocaine (Lidoderm) 1 ea TD DAILY [facility] Last Admin: 09/11/18 09:30 Dose: 1 ea Metoprolol Tartrate (Lopressor) 25 mg PO BID [facility] Last Admin: 09/11/18 09:29 Dose: 25 mg Morphine Sulfate (Morphine) 1 mg IVP Q8H PRN PRN Reason: Pain, severe (8-10) Last Admin: 09/10/18 17:07 Dose: 1 mg Ondansetron HCl (Zofran Inj) 4 mg IVP Q4H PRN PRN Reason: Nausea/Vomiting Prednisone (Prednisone Tab) 5 mg PO DAILY [facility] Last Admin: 09/10/18 17:19 Dose: 5 mg Tacrolimus (Prograf Cap) 1 mg PO QAM [facility] Last Admin: 09/10/18 17:19 Dose: 1 mg Tobramycin Sulfate (Tobrex 0.3% Ophth Oint) 0 appl OS BID [facility] Last Admin: 09/10/18 17:48 Dose: Not Given - Labs Labs: 09/11/18 07:00 09/11/18 07:00 PT 14.7 SECONDS (9.4-12.5) H 09/09/18 10:00 INR 1.30 09/09/18 10:00 APTT 31.8 Seconds (26.9-38.3) 09/09/18 10:00 - Additional Findings Additional findings: - Constitutional Appears: No Acute Distress, Chronically Ill - Head Exam Head Exam: ATRAUMATIC - Eye Exam Eye Exam: EOMI - ENT Exam ENT Exam: Mucous Membranes Moist - Neck Exam Neck Exam: Full ROM - Respiratory Exam Respiratory Exam: Clear to Ausculation Bilateral, NORMAL BREATHING PATTERN - Cardiovascular Exam Cardiovascular Exam: REGULAR RHYTHM, +S1, +S2 - GI/Abdominal Exam GI & Abdominal Exam: Soft, Normal Bowel Sounds, Pulsatile Mass (Hypogastric/RLQ area). absent: Tenderness - Extremities Exam Extremities Exam: absent: Calf Tenderness, Pedal Edema Additional comments: HD access of left arm with positive bruit and negative for signs of any clinical infection of the surrounding soft tissues - Neurological Exam Neurological Exam: Alert, Awake, Oriented x3 - Psychiatric Exam Psychiatric exam: Normal Affect, Normal Mood - Skin Skin Exam: Dry, Warm Assessment and Plan - Assessment and Plan (Free Text) Assessment: 67 year old male with a past medical history significant for ADPKD s/p renal allograft (2006), ESRD on HD MWF, post-transplant DM2, HTN, unrepaired severe , and unrepaired infrarenal AAA who was admitted for lethargy and persistent diarrhea. Nephrology was consulted for ESRD care. Plan: 1. ESRD on HD -s/p HD yesterday (09/10) with 500mls UF -Relatively stable electrolyte and volume status currently; Mild hyperkalemia resolved -Continue Calcitriol 0.75mcg with HD -Continue to monitor I/O's -Avoid nephrotoxic agents -Renally dose medications as indicated 2. Diarrhea -Resolved -Stool studies pending 3. HTN -Continue home Metoprolol -Currently with adequate control 4. Klebsiella Bacteremia secondary to Klebsiella UTI -Patient for SUHAIL today (09/11) with cardiology -Continue Rocephin as ordered -Repeat blood cultures negative -Will likely need prolonged course of antibiotics as patient has renal transplant -Further management as per ID and Cardiology 5. Immunosuppression -Continue AM Tacrolimus as ordered -Continue Prednisone 5mg daily to avoid adrenal insufficiency -Will continue to taper this as an outpatient upon discharge 6. AAA -Can use IV contrast for further evaluation, should this be indicated -IR consulted, all recommendations appreciated 7. Thrombocytopenia -Concern for DIC noted but no transfusions indicated at this time, as per Hematology -Hematology consulted, all recommendations appreciated 8. Anemia in ESRD -Hemoglobin stable -Will continue long acting EPO as outpatient 9. Failure to Thrive -Continue nutritional supplementation as ordered Patient seen and case discussed with attending, Dr. Wheleer. Papi Dunlap PGY2
--- NOTE | 2018-09-11 10:30 | PN ---
DATE: 09/11/2018 SUBJECTIVE: The patient is seen in room 577, 1. The patient is again seen lying in the bed. The patient appears to be frail, weak. The patient does not offer any specific complaint, but according to the nurses' notes and other physician, the patient has some intermittent abdominal pain for which the patient already underwent two CT scans during this hospitalization without significant acute pathology. The patient was seen by Gastroenterology. The patient has been seen by multiple consultants. Overnight nurse's notes were reviewed. No adverse events were documented, notified or called for. PHYSICAL EXAMINATION: VITAL SIGNS: T-max 98 degrees, heart rate 98, blood pressure 128/78, respirations 18 to 20, O2 sat in mid to high 90%. HEENT: Head: Normocephalic, atraumatic. HEENT examination shows pinkish pale conjunctivae. Positive facial muscle wasting, cachectic-appearing -Malian male. NECK: No neck rigidity. CHEST: Kyphosis. Positive median sternotomy surgical scar. LUNGS: No audible crackle, rales or wheezing. Questionable decreased breath sound at the left base. CARDIOVASCULAR: S1, S2. Positive systolic murmur left sternal border, right second intercostal space, left second intercostal space. ABDOMEN: Soft. Positive bowel sound, positive midline abdominal pulsation noted, abdominal aortic aneurysm. GENITALIA: Male. RECTAL: Deferred. EXTREMITIES: Positive left upper extremity AV fistula, positive thrill. Lower extremity shows no pitting edema, no calf tenderness, no Homans sign. NEUROLOGIC: The patient is alert, awake, oriented x3. Cranial nerves II through XII limited. Gait examination is not tested. MUSCULOSKELETAL: Examination showed a decreased muscle mass. DIAGNOSTICS: In the last 24 hours, WBC 12.9, hemoglobin and hematocrit 11.7 and 40.4, platelet 84,000. Granulocytes 83% segs. Fingerstick blood sugar 176, 99 and 52, hemoglobin A1c 12.4, fructosamine 454, PTH 240. Blood and urine cultures shows Klebsiella pneumoniae. IMPRESSION: 1. Klebsiella pneumoniae sepsis and bacteremia. 2. Klebsiella pneumoniae urinary tract infection. 3. Leukocytosis. 4. Normocytic anemia. 5. Granulocytosis. 6. Thrombocytopenia. 7. Disseminated intravascular coagulation. 8. Immunosuppressed status. 9. End-stage renal disease, hemodialysis dependent, three times a week via the left upper extremity arteriovenous fistula. 10. Failure to thrive. 11. , status post renal transplant. 12. Bilateral polycystic kidney disease. 13. Uncontrolled insulin-requiring diabetes mellitus with A1c of 12.4 and fructosamine of 454. 14. Secondary hyperparathyroidism with hyperphosphatemia and PTH level of 240. 15. Klebsiella pneumoniae sepsis bacteremia and Klebsiella pneumoniae urinary tract infection. 16. Cachexia. 17. Thrombocytopenia. 18. Leukocytosis. PLAN: At this time, the patient has been ordered serial labs. The patient has been ordered physical therapy, occupational therapy, ambulation therapy, out of bed to chair. Current consultation, Nephrology, Infectious Disease, Cardiology, Gastroenterology. All subspecialty recommendations were reviewed. The patient's current medications will be as per the MAR of today including broad-spectrum IV antibiotics. The patient has also been ordered bronchodilators. Chest PT. The patient has been ordered pharmacological, non-pharmacological GI, DVT prophylaxis. The patient has been encouraged to be more active. The patient at present will be continued on IV antibiotics as per the Infectious Disease recommendation. The patient's case has been referred to TCU evaluation. staff educator evaluation. The patient's case is referred to physical therapy, occupational therapy, ambulation therapy. Dictated and electronically signed, not read. Mart Knox MD
--- NOTE | 2018-09-11 12:02 | PCM.FALL ---
Post Fall Progress Note - Post Fall Fall Date: 09/11/18 Fall Time: 11:57 Description of Fall: Code star called approximately 8702 - 577-1 Upon arrival patient was found down near door jam with nursing staff surrounding laying on his right side. Patient was awake, alert, oriented; when asked about fall he said he was cleaning the room and mis judged he distance of the wall and subsequently slipped. No LOC reported; fall was observed by nursing staff No complaints of focal weakness, pain, or lightheadedness during evaluation. Patient keeps responding I feel fine when attempting to evaluate him. - Post Fall Exam Vital Sign: Temp Pulse Resp BP Pulse Ox 98 F 88 18 118/94 H 100 09/11/18 06:00 09/11/18 09:29 09/11/18 06:00 09/11/18 09:29 09/11/18 06:00 Skull Exam: Negative for: Scalp wound, Scalp hematoma Eye Exam: Positive for: Pupils equal, Pupils reactive Ear Exam: Negative for: Bleeding Nose Exam: Negative for: Bleeding Skin Exam: Negative for: Lacerations, Bruising Neck Exam: Negative for: Tenderness, Tingling, Weakness Spinal Exam: Negative for: Tenderness, Tingling, Weakness Chest Exam: Negative for: Difficulty breathing Abdomen Exam: Negative for: Tenderness Pelvic Exam: Negative for: Tenderness Arm Exam: Negative for: Deformity, Alteration in range of movement Leg Exam: Negative for: Deformity, Alteration in range of movement Impression/Plan: pt-re-eval - safety evaluation high fall risk h/h in 2 hours will continue to follow and monitor/ reevlaute for bleeding/ hemarthrosis ct head R hip xr BL hand and wrist vitals Q2 x 8 hours
--- NOTE | 2018-09-11 13:02 | CT ---
Date of service: 09/11/2018 PROCEDURE: CT HEAD WITHOUT CONTRAST. HISTORY: Post fall COMPARISON: 02/27/2017 TECHNIQUE: Axial computed tomography images were obtained through the head/brain without intravenous contrast. Radiation dose: Total exam DLP = 1031.79 mGy-cm. This CT exam was performed using one or more of the following dose reduction techniques: Automated exposure control, adjustment of the mA and/or kV according to patient size, and/or use of iterative reconstruction technique. FINDINGS: HEMORRHAGE: No intracranial hemorrhage. BRAIN: No mass effect or edema. Mild atrophy. VENTRICLES: Unremarkable. No hydrocephalus. CALVARIUM: Unremarkable. PARANASAL SINUSES: Unremarkable as visualized. No significant inflammatory changes. MASTOID AIR CELLS: Unremarkable as visualized. No inflammatory changes. OTHER FINDINGS: None. IMPRESSION: No acute intracranial findings
--- NOTE | 2018-09-11 13:18 | CT ---
Date of service: 09/11/2018 PROCEDURE: CT of the pelvis without contrast HISTORY: Code star COMPARISON: CT of the abdomen and pelvis 09/07/2018 TECHNIQUE: Radiation dose: Total exam DLP = 142 mGy-cm. This CT exam was performed using one or more of the following dose reduction techniques: Automated exposure control, adjustment of the mA and/or kV according to patient size, and/or use of iterative reconstruction technique. FINDINGS: There is no significant change from the prior study. There is a large abdominal aortic aneurysm measuring 7.8 x 9 cm. There is no evidence of acute hemorrhage. There is moderate ascites and mesenteric edema. There is constipation with dilatation of the cecum. There is a right lower quadrant renal transplant. There is no evidence of fracture IMPRESSION: No acute findings
--- NOTE | 2018-09-11 13:31 | CT ---
Date of service: 09/11/2018 PROCEDURE: CT of the left hip without contrast HISTORY: caught falll on hand COMPARISON: TECHNIQUE: Radiation dose: Total exam DLP = 140 mGy-cm. This CT exam was performed using one or more of the following dose reduction techniques: Automated exposure control, adjustment of the mA and/or kV according to patient size, and/or use of iterative reconstruction technique. FINDINGS: There is no evidence of fracture. There is no joint space narrowing. There is no soft tissue hematoma. IMPRESSION: Negative study
--- NOTE | 2018-09-11 13:44 | RAD ---
PROCEDURE: Left Hand Radiographs. HISTORY: Post fall COMPARISON: None. TECHNIQUE: 3 views obtained. FINDINGS: BONES: Normal. No fracture. JOINTS: Normal. No osteoarthritic changes. SOFT TISSUES: Normal. OTHER FINDINGS: None. IMPRESSION: Normal left hand radiographs.
--- NOTE | 2018-09-11 13:44 | RAD ---
Date of service: 09/11/2018 PROCEDURE: Left Wrist Radiographs. HISTORY: Post fall COMPARISON: None. TECHNIQUE: Three views obtained. FINDINGS: BONES: Normal. No fracture. JOINTS: Normal. No dislocation. SOFT TISSUES: Normal. OTHER FINDINGS: None. IMPRESSION: Normal left wrist radiographs.
--- NOTE | 2018-09-11 13:45 | RAD ---
PROCEDURE: Right Hand Radiographs. HISTORY: Post fall COMPARISON: None. TECHNIQUE: 3 views obtained. FINDINGS: BONES: Normal. No fracture. JOINTS: Normal. No osteoarthritic changes. SOFT TISSUES: Normal. OTHER FINDINGS: None. IMPRESSION: Normal right hand radiographs.
--- NOTE | 2018-09-11 13:46 | RAD ---
Date of service: 09/11/2018 PROCEDURE: Right Wrist Radiographs. HISTORY: Post fall COMPARISON: None. TECHNIQUE: 4 views obtained. FINDINGS: BONES: Normal. No fracture. JOINTS: Normal. No dislocation. SOFT TISSUES: Normal. OTHER FINDINGS: None. IMPRESSION: Normal right wrist radiographs.
--- NOTE | 2018-09-11 13:54 | CT ---
Date of service: 09/11/2018 PROCEDURE: CT of the right hip HISTORY: caught fall on hand COMPARISON: TECHNIQUE: Radiation dose: Total exam DLP = 129 mGy-cm. This CT exam was performed using one or more of the following dose reduction techniques: Automated exposure control, adjustment of the mA and/or kV according to patient size, and/or use of iterative reconstruction technique. FINDINGS: There is no evidence of joint space narrowing. There is no fracture. There is no soft tissue hematoma IMPRESSION: Negative study
[2018-09-11] MEDS ORDERED: Flumazenil 0.1 mg/ml Inj (5ml) IVP ONE (14:27)
[2018-09-11] MEDS ORDERED: Midazolam 2 MG/2 ML VIAL ONE (14:27)
[2018-09-11] MEDS ORDERED: Naloxone 0.4 mg/ml Inj (Adult) ONE (14:27)
[2018-09-11] MEDS ORDERED: Midazolam 2 MG/2 ML VIAL IV ONE ×2 (14:30→14:35)
[2018-09-11] MEDS ORDERED: Sodium Chloride 0.9% 1,000 ML IV SCH (15:00)
--- NOTE | 2018-09-11 15:22 | CP.PCM.PN ---
<Elbert Obrien - Last Filed: 09/11/18 15:21> Subjective - Date & Time of Evaluation Date of Evaluation: 09/11/18 Time of Evaluation: 09:30 - Subjective Subjective: Elbert Obrien D.O. PGY-3, Internal Medicine Resident, Infectious Disease Progress Note 67-year-old -Sy[place] male with a past medical history of polycystic kidney disease status post renal transplant in 2006, posttransplant diabetes me llitus, status post aortic valve replacement for severe aortic stenosis, large unrepaired AAA, end-stage renal disease on hemodialysis Saturday/ Saturday/Saturday who presents to the emergency department for lethargy and hypotension. Infectious disease consultation was requested for concerns of urinary tract infection. Patient was seen and examined at bedside. States feeling better everyday. No acute complaints. Objective - Vital Signs/Intake and Output Vital Signs (last 24 hours): Temp Pulse Resp BP Pulse Ox 98 F 88 18 118/94 H 100 09/11/18 06:00 09/11/18 09:29 09/11/18 06:00 09/11/18 09:29 09/11/18 06:00 Intake and Output: 09/11/18 09/11/18 06:59 18:59 Intake Total 300 240 Output Total 100 Balance 300 140 - Medications Medications: Current Medications Acetaminophen (Tylenol 325mg Tab) 650 mg PO Q6 PRN PRN Reason: TEMP>=99.5F Acetaminophen (Tylenol 650 Mg Supp) 650 mg RC Q6H PRN PRN Reason: TEMP>=99.5F Atorvastatin Calcium (Lipitor) 10 mg PO DAILY [facility] Last Admin: 09/10/18 17:19 Dose: 10 mg Calcitriol (Rocaltrol) 0.75 mcg PO MWF [facility] Last Admin: 09/10/18 17:18 Dose: 0.75 mcg Cyproheptadine HCl (Periactin) 4 mg PO BID [facility] Last Admin: 09/10/18 17:19 Dose: 4 mg Ezetimibe (Zetia) 10 mg PO DAILY [facility] Last Admin: 09/10/18 17:19 Dose: 10 mg Famotidine (Pepcid) 40 mg PO HS [facility] Last Admin: 09/10/18 21:31 Dose: 40 mg Ceftriaxone Sodium (Rocephin 1 Gram Ivpb) 1 gm in 100 mls @ 100 mls/hr IVPB DAILY [facility]; Protocol Stop: 09/14/18 10:01 Last Admin: 09/11/18 09:28 Dose: 100 mls/hr Sodium Chloride (Sodium Chloride 0.9%) 1,000 mls @ 10 mls/hr IV .Q24H [facility] Stop: 09/11/18 16:00 Insulin Human Regular (Humulin R Low) 0 units SC ACHS [facility]; Protocol Last Admin: 09/11/18 09:29 Dose: Not Given Levalbuterol HCl (Xopenex) 0.63 mg IH [id number] [facility] Last Admin: 09/11/18 13:11 Dose: Not Given Lidocaine (Lidoderm) 1 ea TD DAILY [facility] Last Admin: 09/11/18 09:30 Dose: 1 ea Metoprolol Tartrate (Lopressor) 25 mg PO BID [facility] Last Admin: 09/11/18 09:29 Dose: 25 mg Morphine Sulfate (Morphine) 1 mg IVP Q8H PRN PRN Reason: Pain, severe (8-10) Last Admin: 09/10/18 17:07 Dose: 1 mg Ondansetron HCl (Zofran Inj) 4 mg IVP Q4H PRN PRN Reason: Nausea/Vomiting Prednisone (Prednisone Tab) 5 mg PO DAILY [facility] Last Admin: 09/10/18 17:19 Dose: 5 mg Tacrolimus (Prograf Cap) 1 mg PO QAM [facility] Last Admin: 09/10/18 17:19 Dose: 1 mg Tobramycin Sulfate (Tobrex 0.3% Ophth Oint) 0 appl OS BID [facility] Last Admin: 09/10/18 17:48 Dose: Not Given - Labs Labs: 09/11/18 07:00 09/11/18 07:00 PT 14.7 SECONDS (9.4-12.5) H 09/09/18 10:00 INR 1.30 09/09/18 10:00 APTT 31.8 Seconds (26.9-38.3) 09/09/18 10:00 - Constitutional Appears: Cachectic, Pleasant, Chronically Ill male - Head Exam Head Exam: ATRAUMATIC, NORMOCEPHALIC, temporal wasting noted - Eye Exam Eye Exam: left eye irritation - ENT Exam ENT Exam: Mucous Membranes Moist - Neck Exam Neck exam: Positive for: Normal Inspection - Respiratory Exam Respiratory Exam: absent: Rales, Rhonchi, Wheezes - Cardiovascular Exam Cardiovascular Exam: +S1, +S2. absent: Rubs - GI/Abdominal Exam GI & Abdominal Exam: palpable abdominal aneurysm, otherwise soft, cachectic - Extremities Exam Additional comments: AVF left upper extremity with palpable thrill - Neuro Exam Neuro exam: awake, alert - Psychiatric Exam Psychiatric exam: Normal Affect, Normal Mood - Skin Skin Exam: Dry, Warm Assessment and Plan - Assessment and Plan (Free Text) Assessment: 67-year-old -Syrian male with a past medical history of polycystic kidney disease status post renal transplant in 2006, posttransplant diabetes mellitus, status post aortic valve replacement for severe aortic stenosis, large unrepaired AAA, end-stage renal disease on hemodialysis Saturday/ Saturday/Saturday who presents to the emergency department for lethargy and hypotension. Infectious disease consultation was requested for concerns of urinary tract infection. Plan: Klebsiella bacteremia 2/2 klebsiella urine Polycystic kidney disease status post renal transplant status post sepsis with ATN status post reinitiation of hemodialysis M/W/F Left eye redness - resolving Aortic stenosis Large abdominal aneurysm Posttransplantation diabetes mellitus Continues to be afebrile Leukocytosis resolved On ceftriaxone day 5 Repeat blood cultures negative 2/2 day 4 Cardio following, note reviewed and appreciated, plan for SUHAIL today Nephro following patient, note reviewed and appreciated Hem/Onc following, note reviewed and appreciated We will follow with you Patient was seen and examined and case to be discussed at length with attending physician Thank you for the pleasure participating in the care of this interesting patient <Bishop Squires - Last Filed: 09/11/18 17:07> Objective - Vital Signs/Intake and Output Vital Signs (last 24 hours): Temp Pulse Resp BP Pulse Ox 97.8 F 89 12 160/90 H 95 09/11/18 15:25 09/11/18 15:25 09/11/18 15:25 09/11/18 15:25 09/11/18 15:25 Intake and Output: 09/11/18 09/11/18 06:59 18:59 Intake Total 300 240 Output Total 100 Balance 300 140 - Medications Medications: Current Medications Acetaminophen (Tylenol 325mg Tab) 650 mg PO Q6 PRN PRN Reason: TEMP>=99.5F Acetaminophen (Tylenol 650 Mg Supp) 650 mg RC Q6H PRN PRN Reason: TEMP>=99.5F Atorvastatin Calcium (Lipitor) 10 mg PO DAILY [facility] Last Admin: 09/10/18 17:19 Dose: 10 mg Calcitriol (Rocaltrol) 0.75 mcg PO MWF [facility] Last Admin: 09/10/18 17:18 Dose: 0.75 mcg Cyproheptadine HCl (Periactin) 4 mg PO BID [facility] Last Admin: 09/10/18 17:19 Dose: 4 mg Ezetimibe (Zetia) 10 mg PO DAILY [facility] Last Admin: 09/10/18 17:19 Dose: 10 mg Famotidine (Pepcid) 40 mg PO HS [facility] Last Admin: 09/10/18 21:31 Dose: 40 mg Ceftriaxone Sodium (Rocephin 1 Gram Ivpb) 1 gm in 100 mls @ 100 mls/hr IVPB DAILY [facility]; Protocol Stop: 09/14/18 10:01 Last Admin: 09/11/18 09:28 Dose: 100 mls/hr Insulin Human Regular (Humulin R Low) 0 units SC ACHS [facility]; Protocol Last Admin: 09/11/18 09:29 Dose: Not Given Levalbuterol HCl (Xopenex) 0.63 mg IH [id number] [facility] Last Admin: 09/11/18 13:11 Dose: Not Given Lidocaine (Lidoderm) 1 ea TD DAILY [facility] Last Admin: 09/11/18 09:30 Dose: 1 ea Metoprolol Tartrate (Lopressor) 25 mg PO BID [facility] Last Admin: 09/11/18 09:29 Dose: 25 mg Morphine Sulfate (Morphine) 1 mg IVP Q8H PRN PRN Reason: Pain, severe (8-10) Last Admin: 09/10/18 17:07 Dose: 1 mg Ondansetron HCl (Zofran Inj) 4 mg IVP Q4H PRN PRN Reason: Nausea/Vomiting Prednisone (Prednisone Tab) 5 mg PO DAILY [facility] Last Admin: 09/10/18 17:19 Dose: 5 mg Tacrolimus (Prograf Cap) 1 mg PO QAM [facility] Last Admin: 09/10/18 17:19 Dose: 1 mg Tobramycin Sulfate (Tobrex 0.3% Ophth Oint) 0 appl OS BID [facility] Last Admin: 09/10/18 17:48 Dose: Not Given - Labs Labs: 09/11/18 07:00 09/11/18 07:00 PT 14.7 SECONDS (9.4-12.5) H 09/09/18 10:00 INR 1.30 09/09/18 10:00 APTT 31.8 Seconds (26.9-38.3) 09/09/18 10:00 Attending/Attestation - Attestation I have personally seen and examined this patient.: Yes I have fully participated in the care of the patient.: Yes I have reviewed all pertinent clinical information, including history, physical exam and plan: Yes
[2018-09-11 15:24] VITALS: RESP 12; TEMP 97.8
[2018-09-11 15:25] VITALS: O2SAT 95
[2018-09-11 17:15] LABS: BASO # 0.01 K/mm3 (0.0-2.0); BASO % 0.1 % (0.0-3.0); EOS % 0.1 % (1.5-5.0); HEMOGLOBIN 11.3 g/dL (14.0-18.0); LYMPH # 0.9 (1.2-3.4); LYMPH % 8.5 % (22.0-35.0); MEAN CELL VOLUME 76.6 fl (80.0-105.0); MEAN CORPUSCULAR HEMOGLOBIN 22.2 pg (25.0-35.0); MONO # 0.4 (0.1-0.6); MONO % 3.5 % (1.0-6.0); PLATELET COUNT 113 10^3/uL (120.0-450.0); RBC 5.09 10^6/uL (3.5-6.1); RED CELL DISTRIBUTION WIDTH 20.9 % (11.5-14.5); WHITE BLOOD COUNT 10.7 10^3/uL (4.5-11.0)
[2018-09-11] MEDS: Tobramycin 0.3% OPH OINT OS SCH (17:28)
[2018-09-11 17:29] LABS: ALB/GLOB RATIO 0.6 (1.1-1.8); ALBUMIN 2.3 g/dL (3.0-4.8); CALCIUM 8.5 mg/dL (8.4-10.5)
[2018-09-11 17:58] VITALS: BP 128/92; PULSE 92
--- NOTE | 2018-09-11 19:34 | CARD ---
APPROVED REPORT Date of service: 09/11/2018 EXAM: Transesophageal echocardiogram with color flow Doppler. INDICATION Infection : Rule out subacute bacterial endocarditis Reason For Test : Rule out endocarditis. PROCEDURE After obtaining informed consent, patient underwent transesophageal echo in the Echo Lab. Type of Sedation : Conscious Sedation Sedation was administered by Dr. vernon. Sedation was achieved with Versed and , Fentanyl 1.5 mg and 50 mcg intravenously. Transesophageal probe was inserted and advanced into esophagus without difficulty. The SUHAIL was performed without complications. Throughout the procedure, the blood pressure, pulse oximetry, cardiac rhythm, and rate were monitored. The patient tolerated the procedure without adverse effects. Recovery from conscious sedation was uneventful and vital signs were stable. LEFT VENTRICLE The left ventricle is normal size. There is moderate to severe concentric left ventricular hypertrophy. The left ventricular function is normal.EF-55-60% There is normal LV segmental wall motion. No left ventricle thrombus noted on this study. There is no ventricular septal defect visualized. There is no left ventricular aneurysm. There is no mass noted in the left ventricle. RIGHT VENTRICLE The right ventricle is normal size. There is normal right ventricular wall thickness. The right ventricular systolic function is normal. ATRIA The left atrium is mildly dilated. The right atrium size is normal. The interatrial septum is intact with no evidence for an atrial septal defect. AORTIC VALVE No aortic regurgitation is present. There is no aortic valvular stenosis. There are no vegetations present on this prosthetic aortic valve. There is a bioprosthetic aortic valve prosthesis. The prosthetic aortic valve appears normal. Bioprosthesis leaflets are thickened, but move well. MITRAL VALVE The mitral valve is thickened but opens well. There is no evidence of mitral valve prolapse. There is no mitral valve stenosis. Mitral regurgitation is mild. TRICUSPID VALVE The tricuspid valve leaflets display thickening. There is trace tricuspid regurgitation. There is no tricuspid valve prolapse or vegetation. There is no tricuspid valve stenosis. PULMONIC VALVE The pulmonic valve is mildly thickened. There is trace pulmonic valvular regurgitation. There is no pulmonic valvular stenosis. GREAT VESSELS The aortic root is normal in size. The ascending aorta is normal in size. The pulmonary artery is normal. The IVC is normal in size and collapses >50% with inspiration. <Conclusion> The left ventricular function is normal.EF-55-60% There are no vegetations present on this prosthetic aortic valve. There is a bioprosthetic aortic valve prosthesis, which is normal functioning. Mitral regurgitation is mild. Trace TR Moderate to severe Flat plaque noted in arch and descending aorta. No evidence of endocarditis noted. CC; Dr. Shane / Lisette.
[2018-09-12 12:06] LABS: GLYCOMARK(R) 1.4 mcg/mL (7.3-36.6)
== END 2018-09-11 21:28 | DRG 871 ==
LOC: ED 14:53 → ERH 19:02 → 2RNO 21:14 → OBSVTOIN 09-04 08:35 → 5RSO 09-08 16:26
PROVIDERS: ADMIT Internal Medicine; ATTEND Internal Medicine
PROC: 5A1D70Z Performance of Urinary Filtration, Intermittent, Less than 6 Hours Per Day (ICD-10-PCS; 2018-09-04)
PROC: 5A1D70Z Performance of Urinary Filtration, Intermittent, Less than 6 Hours Per Day (ICD-10-PCS; 2018-09-06)
PROC: 5A1D70Z Performance of Urinary Filtration, Intermittent, Less than 6 Hours Per Day (ICD-10-PCS; 2018-09-08)
PROC: 5A1D70Z Performance of Urinary Filtration, Intermittent, Less than 6 Hours Per Day (ICD-10-PCS; 2018-09-10)
PROC: B246ZZ4 Ultrasonography of Right and Left Heart, Transesophageal (ICD-10-PCS; principal; 2018-09-11 14:30)
DX: A41.59 Other Gram-negative sepsis (principal); N18.6 End stage renal disease; D65 Disseminated intravascular coagulation [defibrination syndrome]; N39.0 Urinary tract infection, site not specified; N17.9 Acute kidney failure, unspecified; T86.12 Kidney transplant failure; R18.8 Other ascites; E44.1 Mild protein-calorie malnutrition; I13.11 Hypertensive heart and chronic kidney disease without heart failure, with stage 5 chronic kidney disease, or end stage renal disease; N25.81 Secondary hyperparathyroidism of renal origin; R64 Cachexia; I42.2 Other hypertrophic cardiomyopathy; J98.11 Atelectasis; Q61.2 Polycystic kidney, adult type; Z68.1 Body mass index [BMI] 19.9 or less, adult; E87.6 Hypokalemia; E86.9 Volume depletion, unspecified; E11.22 Type 2 diabetes mellitus with diabetic chronic kidney disease; I95.3 Hypotension of hemodialysis; I71.4 Abdominal aortic aneurysm, without rupture; E11.65 Type 2 diabetes mellitus with hyperglycemia; R62.7 Adult failure to thrive; R31.29 Other microscopic hematuria; R65.20 Severe sepsis without septic shock; I25.10 Atherosclerotic heart disease of native coronary artery without angina pectoris; D50.9 Iron deficiency anemia, unspecified; D63.1 Anemia in chronic kidney disease; E87.5 Hyperkalemia; R19.7 Diarrhea, unspecified; E78.5 Hyperlipidemia, unspecified; J98.6 Disorders of diaphragm; M54.5 Low back pain; I35.0 Nonrheumatic aortic (valve) stenosis; Z95.2 Presence of prosthetic heart valve; Z99.2 Dependence on renal dialysis; Z87.891 Personal history of nicotine dependence; Z79.4 Long term (current) use of insulin

== ENCOUNTER 2018-09-11 21:28 | Inpatient (IN) | payer OTHER ==
[2018-09-11 22:07] VITALS: BMI 13.8
[2018-09-11] MEDS ORDERED: Morphine 2 mg/ml ISec IVP PRN (22:09)
[2018-09-12] MEDS ORDERED: Pneumococcal 23-Valent Vaccine IM ONE (00:30)
[2018-09-12] MEDS ORDERED: Influenza Vaccine 60 mcg/0.5 mL SYR (4YR UP) IM ONE (00:30)
[2018-09-12] MEDS: Levalbuterol 0.63 MG/3 ML Inhal Soln UD IH SCH ×4 (01:11→20:30)
[2018-09-12] MEDS: cefTRIAXone 1 gm 1 GM/100 ML BAG IVPB SCH (05:08)
[2018-09-12] MEDS: Insulin Reg-LOW-Coverage SC SCH ×6 (06:47→22:14)
[2018-09-12 08:00] LABS: BASO # 0.01 K/mm3 (0.0-2.0); BASO % 0.1 % (0.0-3.0); HEMOGLOBIN 9.9 g/dL (14.0-18.0); LYMPH # 0.9 (1.2-3.4); LYMPH % 8.5 % (22.0-35.0); MEAN CELL VOLUME 77.3 fl (80.0-105.0); MEAN CORPUSCULAR HEMOGLOBIN 21.6 pg (25.0-35.0); MEAN CORPUSCULAR HGB CONC 27.9 g/dl (31.0-37.0); MONO # 0.3 (0.1-0.6); MONO % 3.1 % (1.0-6.0); PLATELET COUNT 59 10^3/uL (120.0-450.0); RBC 4.59 10^6/uL (3.5-6.1); RED CELL DISTRIBUTION WIDTH 20.6 % (11.5-14.5); WHITE BLOOD COUNT 10.6 10^3/uL (4.5-11.0)
[2018-09-12 08:25] LABS: ALB/GLOB RATIO 0.6 (1.1-1.8); ALBUMIN 1.9 g/dL (3.0-4.8)
[2018-09-12 09:08] LABS: BILIRUBIN,DIRECT 0.3 mg/dL (0.0-0.4)
[2018-09-12] MEDS: Lidocaine 5% Patch TD SCH (10:07)
--- NOTE | 2018-09-12 10:08 | CP.PCM.CON ---
History of Present Illness - History of Present Illness History of Present Illness: Nephrology Consultation (Dr. Wheeler's Service) CC: Diarrhea/ESRD on HD HPI: Mr. Goodwin is a 67 year old male with a past medical history significant for ADPKD s/p renal allograft (2006), ESRD on HD MWF, post-transplant DM2, HTN, severe , and unrepaired infrarenal AAA who was admitted for lethargy and persistent diarrhea. Patient was deemed medically optimized for transfer to TCU for continued management of his presenting complaints as well as further physical rehabilitation. Nephrology was consulted for ESRD care. No acute events were noted overnight. Patient is currently resting comfortably, with no supplemental oxygen, and denies any complaints. He reports that his appetite has increased and that he consumed a larger portion of his breakfast today. Further 12 point ROS was reviewed with patient and is unremarkable at this time. PMH: As stated above PSH: AVR, renal transplant (2006) Family History: Non-contributory at this time Social History: Former smoker; Denies any current tobacco, alcohol or illicit drug use Allergies: NKDA Home Medications: As per MAR Review of Systems - Review of Systems Review of Systems: As stated in HPI, otherwise negative Past Patient History - Infectious Disease Hx of Infectious Diseases: None - Past Medical History & Family History Past Medical History?: Yes - Past Social History Smoking Status: Former Smoker - CARDIAC Hx Cardiac Disorders: Yes Hx Circulatory Problems: Yes Hx Hypercholesterolemia: Yes Hx Hypertension: Yes - PULMONARY Hx Respiratory Disorders: No - NEUROLOGICAL Hx Neurological Disorder: No - HEENT Hx HEENT Problems: Yes (wears glasses) - RENAL Hx Chronic Kidney Disease: Yes (stg IV) Hx Dialysis: Yes - ENDOCRINE/METABOLIC Hx Diabetes Mellitus Type 2: Yes - HEMATOLOGICAL/ONCOLOGICAL Hx Anemia: Yes - INTEGUMENTARY Hx Dermatological Problems: Yes Other/Comment: multiple skin discolorations ble - MUSCULOSKELETAL/RHEUMATOLOGICAL Hx Falls: Yes Hx Unsteady Gait: Yes - GASTROINTESTINAL Hx Gastrointestinal Disorders: Yes Hx Gastroesophageal Reflux: Yes - GENITOURINARY/GYNECOLOGICAL Hx Genitourinary Disorders: Yes Hx Hematuria: Yes Hx Reproductive Disorders: No Hx Urinary Tract Infection: Yes - PSYCHIATRIC Hx Psychophysiologic Disorder: No Hx Substance Use: No - SURGICAL HISTORY Hx Surgeries: Yes Hx Kidney Transplant: Yes Hx Valve Replacement: Yes - ANESTHESIA Hx Anesthesia: Yes Hx Anesthesia Reactions: No Hx Malignant Hyperthermia: No Meds Allergies/Adverse Reactions: Allergies Allergy/AdvReac Type Severity Reaction Status Date / Time No Known Allergies Allergy Verified 09/11/18 22:07 - Medications Medications: Current Medications Acetaminophen (Tylenol 325mg Tab) 650 mg PO Q6 PRN; Protocol PRN Reason: TEMP>=99.5F Acetaminophen (Tylenol 650 Mg Supp) 650 mg RC Q6H PRN; Protocol PRN Reason: TEMP>=99.5F Atorvastatin Calcium (Lipitor) 10 mg PO DIN [facility]; Protocol Calcitriol (Rocaltrol) 0.75 mcg PO MWF [facility]; Protocol Cyproheptadine HCl (Periactin) 4 mg PO BID [facility]; Protocol Ezetimibe (Zetia) 10 mg PO DAILY [facility]; Protocol Famotidine (Pepcid) 40 mg PO HS [facility]; Protocol Ceftriaxone Sodium (Rocephin 1 Gram Ivpb) 1 gm in 100 mls @ 100 mls/hr IVPB 0600 [facility]; Protocol Last Admin: 09/12/18 05:08 Dose: 100 mls/hr Insulin Human Regular (Humulin R Low) 0 units SC ACHS [facility]; Protocol Last Admin: 09/12/18 08:05 Dose: 3 units Levalbuterol HCl (Xopenex) 0.63 mg IH [id number] [facility]; Protocol Last Admin: 09/12/18 07:20 Dose: 0.63 mg Lidocaine (Lidoderm) 1 ea TD DAILY [facility]; Protocol Morphine Sulfate (Morphine) 1 mg IVP Q8H PRN; Protocol PRN Reason: Pain, severe (8-10) Ondansetron HCl (Zofran Inj) 4 mg IVP Q4H PRN; Protocol PRN Reason: Nausea/Vomiting Prednisone (Prednisone Tab) 5 mg PO DAILY [facility] Last Admin: 09/12/18 08:04 Dose: 5 mg Tacrolimus (Prograf Cap) 1 mg PO QAM [facility]; Protocol Tobramycin Sulfate (Tobrex 0.3% Ophth Oint) 0 appl OS BID [facility] Physical Exam - Constitutional Additional comments: Appears: No Acute Distress, Chronically Ill - Head Exam Head Exam: ATRAUMATIC - Eye Exam Eye Exam: EOMI - ENT Exam ENT Exam: Mucous Membranes Moist - Neck Exam Neck Exam: Full ROM - Respiratory Exam Respiratory Exam: Clear to Ausculation Bilateral, NORMAL BREATHING PATTERN - Cardiovascular Exam Cardiovascular Exam: REGULAR RHYTHM, +S1, +S2 - GI/Abdominal Exam GI & Abdominal Exam: Soft, Normal Bowel Sounds, Pulsatile Mass (Hypogastric/RLQ area). absent: Tenderness - Extremities Exam Extremities Exam: absent: Calf Tenderness, Pedal Edema Additional comments: HD access of left arm with positive bruit and negative for signs of any clinical infection of the surrounding soft tissues - Neurological Exam Neurological Exam: Alert, Awake, Oriented x3 - Psychiatric Exam Psychiatric exam: Normal Affect, Normal Mood - Skin Skin Exam: Dry, Warm Results - Vital Signs Recent Vital Signs: Last Vital Signs Temp 98.3 F 09/12/18 00:15 Pulse 63 09/12/18 07:23 Resp 18 09/12/18 00:15 BP 116/77 09/12/18 00:15 Pulse Ox - Labs Result Diagrams: 09/12/18 07:15 09/12/18 07:15 Labs: Laboratory Results - last 24 hr 09/12/18 09/12/18 09/12/18 05:11 07:15 07:15 WBC 10.6 RBC 4.59 Hgb 9.9 L Hct 35.5 L MCV 77.3 L MCH 21.6 L MCHC 27.9 L RDW 20.6 H Plt Count 59 L Neut % (Auto) 88.3 H Lymph % (Auto) 8.5 L [place] % (Auto) 3.1 Eos % (Auto) 0.0 L Baso % (Auto) 0.1 Lymph # (Auto) 0.9 L [place] # (Auto) 0.3 Eos # (Auto) 0.0 Baso # (Auto) 0.01 Absolute Neuts (auto) 9.40 H Sodium 136 Potassium 4.3 Chloride 103 Carbon Dioxide 23 Anion Gap 15 BUN 41 H Creatinine 3.0 H Est GFR ( Amer) 26 Est GFR (Non-Af Amer) 21 POC Glucose (mg/dL) 269 H Random Glucose 264 H Calcium 8.0 L Phosphorus 5.1 H Magnesium 1.9 Total Bilirubin 0.3 Direct Bilirubin 0.3 AST 20 ALT 12 Alkaline Phosphatase 156 H D Total Protein 5.2 L Albumin 1.9 L Globulin 3.3 Albumin/Globulin Ratio 0.6 L Assessment & Plan - Assessment and Plan (Free Text) Assessment: 67 year old male with a past medical history significant for ADPKD s/p renal allograft (2006), ESRD on HD MWF, post-transplant DM2, HTN, severe , and unrepaired infrarenal AAA who was admitted for lethargy and persistent diarrhea. Patient is now in TCU for continued management of his presented complaints and further physical rehabilitation. Nephrology was consulted for ESRD care. Plan: 1. ESRD on HD -HD scheduled for today (09/12) at 1400 per routine -Relatively stable electrolyte and volume status -Can discontinue Calcitriol 0.75mcg as patient will get this medication with outpatient HD -Continue to monitor I/O's -Avoid nephrotoxic agents -Renally dose medications as indicated 2. Diarrhea -Resolved -Stool studies pending 3. HTN -Noted positive orthostatic hypotension -Holding home Lopressor and Clonidine -Currently with adequate control 4. Klebsiella Bacteremia secondary to Klebsiella UTI -SUHAIL showed no signs of endocarditis or valvular vegetation -Repeat blood cultures negative -Continue Rocephin as ordered -Will likely need prolonged course of antibiotics as patient has renal transplant -Further management as per ID and Cardiology 5. Immunosuppression -Continue AM Tacrolimus as ordered -Continue Prednisone 5mg daily to avoid adrenal insufficiency -Will continue to taper this as an outpatient upon discharge 6. AAA -Can use IV contrast for further evaluation, should this be indicated -IR consulted, all recommendations appreciated 7. Thrombocytopenia -Concern for DIC noted but no transfusions indicated at this time, as per Hematology -Hematology consulted, all recommendations appreciated 8. Anemia in ESRD -Hemoglobin stable -Will continue long acting EPO as outpatient 9. Failure to Thrive -Continue physical therapy in TCU -Continue nutritional supplementation as ordered Patient seen and case discussed with attending, Dr. Wheeler. Papi Dunlap PGY2 - Date & Time Date: 09/12/18 Time: 10:08
[2018-09-12] MEDS: Tobramycin 0.3% OPH OINT OS SCH ×2 (10:12→17:35)
--- NOTE | 2018-09-13 00:48 | CON ---
DATE: 09/12/2018 LOCATION: The patient was seen earlier today in room 321, bed 1. CHIEF COMPLAINT: Weakness since several days. HISTORY OF PRESENT ILLNESS: This is a 67-year-old male with past medical history significant for polycystic kidney disease, history of renal transplant in 2006, diabetes mellitus, aortic valve replacement for aortic stenosis, large unrepaired AAA, end-stage renal disease on hemodialysis. The patient from acute care was transferred to Transitional Care for further therapy. REVIEW OF SYSTEMS: A 12-point review of systems is performed. PAST MEDICAL HISTORY: Significant for polycystic kidney disease and renal transplant, diabetes mellitus, aortic valve replacement, aortic stenosis, end-stage renal disease on hemodialysis. PAST SURGICAL HISTORY: As stated. ALLERGIES: THE PATIENT HAS NO KNOWN ALLERGIES. MEDICATIONS: Medications are reviewed. PHYSICAL EXAMINATION VITAL SIGNS: Temperature is 98, blood pressure is 120/70, respiratory rate is 16. HEENT: Unremarkable. NECK: Supple. LUNGS: Have decreased breath sounds. HEART: Normal S1 and S2. ABDOMEN: Soft and nontender. LABORATORY DATA: Reveals a white count that was 13,100 now down to 10,000. Chemistry reveals the creatinine is 3.0. Microbiology is noted. The patient had Klebsiella in the blood and pansensitive and Klebsiella in the urine also pansensitive with the exception for ampicillin. ASSESSMENT AND PLAN: A 67-year-old male with Klebsiella bacteremia with Klebsiella in the urine in a patient with polycystic kidney disease, kidney transplant on ceftriaxone, day #6. We will continue the present course. We will follow with you. Review of orders infers the patient to be on ceftriaxone. Bishop Squires MD
[2018-09-13] MEDS: Levalbuterol 0.63 MG/3 ML Inhal Soln UD IH SCH ×4 (01:00→19:42)
[2018-09-13] MEDS: cefTRIAXone 1 gm 1 GM/100 ML BAG IVPB SCH (05:32)
[2018-09-13] MEDS: Insulin Reg-LOW-Coverage SC SCH ×4 (06:58→21:35)
--- NOTE | 2018-09-13 09:45 | RAD ---
HISTORY: r/o pleural effusion COMPARISON: Chest x-ray performed 09/09/18 TECHNIQUE: Chest, one view. FINDINGS: LUNGS: Right basilar consolidation or effusion. No definite pneumothorax. Please note that chest x-ray has limited sensitivity for the detection of pulmonary masses. CARDIOVASCULAR: Heart size appears within normal limits. Prosthetic cardiac valve. Median sternotomy wires. Atherosclerotic calcifications of an ectatic aorta. OSSEOUS STRUCTURES: Degenerative changes. VISUALIZED UPPER ABDOMEN: Elevation of the right hemidiaphragm. OTHER FINDINGS: None. IMPRESSION: Right basilar consolidation or effusion.
[2018-09-13] MEDS: Lidocaine 5% Patch TD SCH (10:43)
--- NOTE | 2018-09-13 12:08 | CP.PCM.PN ---
Subjective - Date & Time of Evaluation Date of Evaluation: 09/13/18 Time of Evaluation: 10:30 - Subjective Subjective: Comfortable in bed, not in distress. Objective - Vital Signs/Intake and Output Vital Signs (last 24 hours): Temp Pulse Resp BP Pulse Ox 98.3 F 63 18 116/77 09/12/18 00:15 09/12/18 07:23 09/12/18 00:15 09/12/18 00:15 - Medications Medications: Current Medications Acetaminophen (Tylenol 325mg Tab) 650 mg PO Q6 PRN; Protocol PRN Reason: TEMP>=99.5F Acetaminophen (Tylenol 650 Mg Supp) 650 mg RC Q6H PRN; Protocol PRN Reason: TEMP>=99.5F Atorvastatin Calcium (Lipitor) 10 mg PO DIN [facility]; Protocol Last Admin: 09/12/18 17:42 Dose: 10 mg Cyproheptadine HCl (Periactin) 4 mg PO BID [facility]; Protocol Last Admin: 09/12/18 17:34 Dose: 4 mg Ezetimibe (Zetia) 10 mg PO DAILY [facility]; Protocol Last Admin: 09/12/18 10:13 Dose: 10 mg Famotidine (Pepcid) 40 mg PO HS [facility]; Protocol Last Admin: 09/12/18 22:15 Dose: 40 mg Ceftriaxone Sodium (Rocephin 1 Gram Ivpb) 1 gm in 100 mls @ 100 mls/hr IVPB 0600 [facility]; Protocol Last Admin: 09/13/18 05:32 Dose: 100 mls/hr Insulin Human Regular (Humulin R Low) 0 units SC ACHS [facility]; Protocol Last Admin: 09/13/18 06:58 Dose: 2 units Levalbuterol HCl (Xopenex) 0.63 mg IH [id number] [facility]; Protocol Last Admin: 09/13/18 07:51 Dose: 0.63 mg Lidocaine (Lidoderm) 1 ea TD DAILY [facility]; Protocol Last Admin: 09/12/18 10:07 Dose: 1 ea Morphine Sulfate (Morphine) 1 mg IVP Q8H PRN; Protocol PRN Reason: Pain, severe (8-10) Ondansetron HCl (Zofran Inj) 4 mg IVP Q4H PRN; Protocol PRN Reason: Nausea/Vomiting Prednisone (Prednisone Tab) 5 mg PO DAILY [facility] Last Admin: 09/12/18 10:10 Dose: Not Given Tacrolimus (Prograf Cap) 1 mg PO QAM [facility]; Protocol Last Admin: 09/12/18 10:12 Dose: 1 mg Tobramycin Sulfate (Tobrex 0.3% Ophth Oint) 0 appl OS BID [facility] Last Admin: 09/12/18 17:35 Dose: 1 applic - Labs Labs: 09/12/18 07:15 09/12/18 07:15 - Constitutional Appears: Non-toxic, Chronically Ill - Head Exam Head Exam: NORMAL INSPECTION - Respiratory Exam Respiratory Exam: Decreased Breath Sounds - Cardiovascular Exam Cardiovascular Exam: +S1, +S2 - GI/Abdominal Exam GI & Abdominal Exam: Soft. absent: Tenderness Assessment and Plan - Assessment and Plan (Free Text) Plan: Assessment Klebsiella bacteremia probably due to UTI, SUHAIL negative for valvular vegetations history of systemic inflammatory response syndrome, consider due to worsening renal failure with uremia, R/O sepsis due to right sided HCAP history of sepsis due to gram negative bacilli bacteremia on top of systemic viral illness with Influenza polycystic kidney disease S/P renal transplant in 2006 HTN abdominal aortic aneurysm with history of aortic dissection S/P aortic valve replacement dyslipidemia S/P bilateral inguinal hernia repair Plan continue Rocephin day 6 for 10-14 days SUHAIL noted from 09/11/2018 which is negative will continue to monitor clinically
[2018-09-13] MEDS: Tobramycin 0.3% OPH OINT OS SCH ×2 (14:03→18:02)
--- NOTE | 2018-09-13 20:08 | CP.PCM.PN ---
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), large unrepaired AAA, s/p AVF, and ESRD on HD, initially admitted with severe sepsis, now in TCU with deconditioning; Patient apparently very tired after PT session eariler today; had been tolerating diet well yesterday; no issues breathing; not urinating much; Objective - Vital Signs/Intake and Output Vital Signs (last 24 hours): Temp Pulse Resp BP Pulse Ox 97.8 F 98 H 20 118/66 99 09/13/18 16:00 09/13/18 16:00 09/13/18 16:00 09/13/18 16:00 09/13/18 16:00 - Medications Medications: Current Medications Acetaminophen (Tylenol 325mg Tab) 650 mg PO Q6 PRN; Protocol PRN Reason: TEMP>=99.5F Acetaminophen (Tylenol 650 Mg Supp) 650 mg RC Q6H PRN; Protocol PRN Reason: TEMP>=99.5F Atorvastatin Calcium (Lipitor) 10 mg PO DIN [facility]; Protocol Last Admin: 09/13/18 18:01 Dose: 10 mg Cyproheptadine HCl (Periactin) 4 mg PO BID [facility]; Protocol Last Admin: 09/13/18 18:02 Dose: 4 mg Ezetimibe (Zetia) 10 mg PO DAILY [facility]; Protocol Last Admin: 09/13/18 10:44 Dose: 10 mg Famotidine (Pepcid) 40 mg PO HS [facility]; Protocol Last Admin: 09/12/18 22:15 Dose: 40 mg Ceftriaxone Sodium (Rocephin 1 Gram Ivpb) 1 gm in 100 mls @ 100 mls/hr IVPB 0600 [facility]; Protocol Last Admin: 09/13/18 05:32 Dose: 100 mls/hr Insulin Human Regular (Humulin R Low) 0 units SC ACHS [facility]; Protocol Last Admin: 09/13/18 18:00 Dose: 4 units Levalbuterol HCl (Xopenex) 0.63 mg IH [id number] [facility]; Protocol Last Admin: 09/13/18 19:42 Dose: 0.63 mg Lidocaine (Lidoderm) 1 ea TD DAILY [facility]; Protocol Last Admin: 09/13/18 10:43 Dose: 1 ea Morphine Sulfate (Morphine) 1 mg IVP Q8H PRN; Protocol PRN Reason: Pain, severe (8-10) Last Admin: 09/13/18 18:29 Dose: 1 mg Ondansetron HCl (Zofran Inj) 4 mg IVP Q4H PRN; Protocol PRN Reason: Nausea/Vomiting Prednisone (Prednisone Tab) 5 mg PO DAILY [facility] Last Admin: 09/13/18 10:44 Dose: 5 mg Tacrolimus (Prograf Cap) 1 mg PO QAM [facility]; Protocol Last Admin: 09/13/18 10:44 Dose: 1 mg Tobramycin Sulfate (Tobrex 0.3% Ophth Oint) 0 appl OS BID [facility] Last Admin: 09/13/18 18:02 Dose: 1 applic - Labs Labs: 09/12/18 07:15 09/12/18 07:15 - Constitutional Appears: Non-toxic, No Acute Distress - Eye Exam Eye Exam: absent: Scleral icterus - Respiratory Exam Respiratory Exam: Clear to Ausculation Bilateral. absent: Respiratory Distress - Cardiovascular Exam Cardiovascular Exam: RRR, +S1, +S2. absent: Gallop, Rubs - GI/Abdominal Exam GI & Abdominal Exam: Soft, Pulsatile Mass. absent: Distended, Tenderness - Extremities Exam Additional comments: 2+ bilateral ankle edema (stable); - Neurological Exam Neurological Exam: Alert, Awake - Psychiatric Exam Psychiatric exam: Normal Mood. absent: Agitated - Skin Skin Exam: Warm. absent: Cyanosis Assessment and Plan (1) ESRD (end stage renal disease) Assessment & Plan: Stable electrolyte and volume status; did not tolerate even low UF goal yesterday in HD (set for 500 cc) with BP dropping; no significant weight gain; -Next HD session for Saturday per routine; Status: Chronic (2) Hypertensive CKD, ESRD on dialysis Assessment & Plan: BP controlled but off all anti-htn meds including B-blockers, had been on clonidine prior to admission; recent orthostatic changes noted; should restart low dose B-blockers soon given large AAA; Status: Chronic (3) Anemia of renal disease Assessment & Plan: Hgb dropped slightly; will monitor and continue long acting EPO on HD; Status: Acute (4) Chronic kidney disease-mineral and bone disorder Assessment & Plan: Secondary hyperparathyroidism of CKD; will continue calcitriol on outpatient HD; no need for phos binders for now; Status: Chronic (5) Failure to thrive Assessment & Plan: Ongoing issue with severe protein calorie malnutrition; patient encouraged to take supplements (at bedside); Status: Acute (6) Renal transplant, status post Assessment & Plan: Immunosuppression being tapered down given concern for possible malignancy; continue tacrolimus 1 mg daily; Status: Chronic
[2018-09-14] MEDS: Levalbuterol 0.63 MG/3 ML Inhal Soln UD IH SCH ×3 (01:32→13:27)
[2018-09-14] MEDS: cefTRIAXone 1 gm 1 GM/100 ML BAG IVPB SCH (05:18)
[2018-09-14] MEDS: Insulin Reg-LOW-Coverage SC SCH ×2 (06:36→12:30)
[2018-09-14] MEDS: Lidocaine 5% Patch TD SCH (10:01)
[2018-09-14] MEDS: Tobramycin 0.3% OPH OINT OS SCH (10:04)
--- NOTE | 2018-09-14 10:51 | CP.PCM.PN ---
Subjective - Date & Time of Evaluation Date of Evaluation: 09/14/18 Time of Evaluation: 08:00 - Subjective Subjective: Afebrile. Objective - Vital Signs/Intake and Output Vital Signs (last 24 hours): Temp Pulse Resp BP Pulse Ox 98.3 F 63 18 116/77 09/12/18 00:15 09/12/18 07:23 09/12/18 00:15 09/12/18 00:15 - Medications Medications: Current Medications Acetaminophen (Tylenol 325mg Tab) 650 mg PO Q6 PRN; Protocol PRN Reason: TEMP>=99.5F Acetaminophen (Tylenol 650 Mg Supp) 650 mg RC Q6H PRN; Protocol PRN Reason: TEMP>=99.5F Atorvastatin Calcium (Lipitor) 10 mg PO DIN [facility]; Protocol Last Admin: 09/12/18 17:42 Dose: 10 mg Cyproheptadine HCl (Periactin) 4 mg PO BID [facility]; Protocol Last Admin: 09/13/18 10:43 Dose: 4 mg Ezetimibe (Zetia) 10 mg PO DAILY [facility]; Protocol Last Admin: 09/13/18 10:44 Dose: 10 mg Famotidine (Pepcid) 40 mg PO HS [facility]; Protocol Last Admin: 09/12/18 22:15 Dose: 40 mg Ceftriaxone Sodium (Rocephin 1 Gram Ivpb) 1 gm in 100 mls @ 100 mls/hr IVPB 0600 [facility]; Protocol Last Admin: 09/13/18 05:32 Dose: 100 mls/hr Insulin Human Regular (Humulin R Low) 0 units SC ACHS [facility]; Protocol Last Admin: 09/13/18 06:58 Dose: 2 units Levalbuterol HCl (Xopenex) 0.63 mg IH [id number] [facility]; Protocol Last Admin: 09/13/18 07:51 Dose: 0.63 mg Lidocaine (Lidoderm) 1 ea TD DAILY [facility]; Protocol Last Admin: 09/13/18 10:43 Dose: 1 ea Morphine Sulfate (Morphine) 1 mg IVP Q8H PRN; Protocol PRN Reason: Pain, severe (8-10) Ondansetron HCl (Zofran Inj) 4 mg IVP Q4H PRN; Protocol PRN Reason: Nausea/Vomiting Prednisone (Prednisone Tab) 5 mg PO DAILY [facility] Last Admin: 09/13/18 10:44 Dose: 5 mg Tacrolimus (Prograf Cap) 1 mg PO QAM [facility]; Protocol Last Admin: 09/13/18 10:44 Dose: 1 mg Tobramycin Sulfate (Tobrex 0.3% Ophth Oint) 0 appl OS BID [facility] Last Admin: 09/12/18 17:35 Dose: 1 applic - Labs Labs: 09/12/18 07:15 09/12/18 07:15 - Constitutional Appears: Non-toxic - Head Exam Head Exam: NORMAL INSPECTION Assessment and Plan - Assessment and Plan (Free Text) Plan: Assessment Klebsiella bacteremia probably due to UTI, SUHAIL negative for valvular vegetations history of systemic inflammatory response syndrome, consider due to worsening renal failure with uremia, R/O sepsis due to right sided HCAP history of sepsis due to gram negative bacilli bacteremia on top of systemic viral illness with Influenza polycystic kidney disease S/P renal transplant in 2006 HTN abdominal aortic aneurysm with history of aortic dissection S/P aortic valve replacement dyslipidemia S/P bilateral inguinal hernia repair Plan continue Rocephin day 7 for 10-14 days SUHAIL noted from 09/11/2018 which is negative will continue to monitor clinically
--- NOTE | 2018-09-14 15:40 | PCM.RRT ---
FACILITIES ASSISTANT Nurse Assessment - Situation Date: 09/14/18 I.Reason for FACILITIES ASSISTANT - A) Acute Change in Patient: Subjective: FACILITIES ASSISTANT Note for Bloody Bowel Movement with Clots This is a 67 year old male with a past medical history significant for ADPKD s/p renal allograft (2006), ESRD on HD MWF, post-transplant DM2, HTN, severe , and unrepaired infrarenal AAA who was admitted for lethargy and persistent diarrhea and transferred to TCU for physical rehabilitation. FACILITIES ASSISTANT called this afternoon after nurse found patient to have large bloody movement with clots. Initial vitals included BP of 89/67, pulse of 118, O2 sat of 98% and temperature of 97.9F with glucose of 260. Upon arrival, patient noted to be resting comfortably in no acute distress and denied CP, SOB, fevers, nausea, vomiting, back pain, abdominal pain, numbness, tingling, swelling, chills and dizziness. Patient denies any history of bloody bowel movement and states his BM have been regular. Repeat vitals taken a few minutes later revealed BP of 110/79, pulse of 118, O2 of 98 and temp of 97.9F. - Neurological Status (Select all that apply): Alert, Responsive, Follows Commands - Constitutional Appears: No Acute Distress, Cachectic, Chronically Ill - Head Head Exam: ATRAUMATIC, NORMAL INSPECTION - Eyes Eye Exam: EOMI - Respiratory Exam Respiratory Exam: Clear to Ausculation Bilateral. absent: Accessory Muscle Use, Respiratory Distress - Cardiovascular Exam Cardiovascular Exam: REGULAR RHYTHM, +S1, +S2 - GI/Abdominal Exam GI & Abdominal Exam: Soft. absent: Guarding, Rigid, Tenderness - Neurological Exam Neurological Exam: Awake, CN II-XII Intact, Oriented x3 Additional exam: Moving all extremities spontaneously, no motor/sensory deficits appreciated - Extremities Exam Extremities Exam: Normal Inspection. absent: Calf Tenderness, Tenderness Additional comments: cachectic lower extremities noted Plan - Assessment of Findings&Treatment Plan This is a 67 year old male with a past medical history significant for ADPKD s/p renal allograft (2006), ESRD on HD MWF, post-transplant DM2, HTN, severe , and unrepaired infrarenal AAA who was admitted for lethargy and persistent diarrhea and transferred to TCU for physical rehabilitation. FACILITIES ASSISTANT called this afternoon after nurse found patient to have large bloody movement with clots. Plan: -will transfer to ED for further workup to include: -CBC, CMP -EKG -possible CTAP -serial H/H
[2018-09-14 16:56] VITALS: BP 105/80; PULSE 123; RESP 16; TEMP 98; O2SAT 96
--- NOTE | 2018-09-14 17:28 | DS ---
DATE: 09/14/2018 SUBJECTIVE: The patient is seen again lying in the bed trying to have lunch. According to the patient's nurses, the patient has been refusing to be out of bed to chair, and gets angry if the patient has been advised to be out of bed to chair, even though today when I tried to convince the patient, the patient got very angry and refuses to be out of bed to chair. Last 24 hours nurses' notes were reviewed. The patient slept well overnight. PHYSICAL EXAMINATION: VITAL SIGNS: T-max 98.8, pulse 78-98, blood pressure 118/66, respirations 20, O2 sat 99%. GENERAL: The patient is seen sitting up in the bed. HEENT: Head examination normocephalic, atraumatic. HEENT examination shows pinkish pale conjunctivae. Anicteric sclerae. No oropharyngeal lesion. No neck rigidity. Positive facial muscle wasting. Positive cachexia noted. CHEST: Kyphosis. Positive median sternotomy surgical scar inside. CARDIOVASCULAR: Positive S1, S2. Positive systolic murmur left sternal border, right second intercostal space left second intercostal space. ABDOMEN: Soft, positive bowel sounds. Positive midabdominal pulsation noted. GENITALIA: Male. EXTREMITY: Positive left upper extremity AV fistula, positive thrill noted. Lower extremity shows no pitting edema, no calf tenderness, no Homans' sign. NEUROLOGIC: The patient is alert, awake, oriented x3. Is able to move upper and lower extremities without assistance. MUSCULOSKELETAL: Shows a body mass index of 14. The patient appears to be cachectic for his age and height. NEUROLOGIC: The patient is awake, responsive, is able to move upper and lower extremity without assistance. LABORATORY DATA: From 09/12/2018, WBC 10.6, hemoglobin/hematocrit 9.9/35.5, platelets 59,000, granulocytes 88%. Sodium 136, potassium 4.3, chloride 103, CO2 of 23, anion gap 15, BUN 41, creatinine 3, GFR 26, glucose 264, calcium 8, phosphorus 5.1, alk phos 156, total protein 5.2, albumin 1.1. IMPRESSION AND PLAN: 1. Deconditioning. 2. Gait dysfunction. 3. Cachexia. 4. Failure to thrive. 5. Decreased body mass index. 6. Anemia, thrombocytopenia and granulocytosis. 7. End-stage renal disease, hemodialysis dependent, status post renal transplant. 8. Uncontrolled insulin-requiring diabetes mellitus with hyperglycemia and elevated hemoglobin A1c. 9. Hyperphosphatemia. 10. Protein malnutrition and severe hypoalbuminemia. 11. Right lower lobe pneumonia. 12. Median sternotomy surgical scar. 13. Ectatic atherosclerotic aorta. 14. Degenerative joint disease of the spine. 15. Right hemidiaphragm elevation. 16. Klebsiella pneumoniae bacteremia and Klebsiella pneumoniae urinary tract infection. 17. Right lower lobe pneumonia with elevated right hemidiaphragm. 18. History of polycystic kidney disease. 19. History of hypertension. 20. Abdominal aortic aneurysm. 21. History of aortic valve replacement. 22. Status post renal allograft transplant in 2006, failed in 03/2019. 23. End-stage renal disease hemodialysis dependent three times a week. 24. Hypertensive chronic kidney disease. 25. Anemia of renal disease. 26. Secondary hyperparathyroidism. 27. Leukocytosis with granulocytosis. 28. Thrombocytopenia. 29. Hypofibrinogenemia 30. Disseminated intravascular coagulation. 31. Secondary hyperparathyroidism with elevated PTH. 32. Klebsiella pneumoniae urinary tract infection and bacteremia and sepsis with proteinuria, microscopic hematuria, pyuria, bacteriuria. 33. Status post fall. 34. 7.8 x 9 cm abdominal aortic aneurysm. 35. Moderate ascites and mesenteric edema. 36. Constipation with cecal dilatation. 37. Right lower quadrant renal transplant status. 38. Cerebral cortical atrophy of the brain. 39. Chronic elevation of the right hemidiaphragm. 40. Small bilateral pleural effusion with right lower lobe consolidation pneumonia. 41. Polycystic kidney disease with right lower quadrant renal transplant. 42. Bioprosthetic aortic valve prosthesis. 43. Thickened bioprosthetic aortic valve leaflet. 44. Mild mitral regurgitation. 45. Trace tricuspid regurgitation. 46. Moderate to severe flat plaque noted in the arch and descending aorta. 47. Severe concentric left ventricular hypertrophy. 48. Status post transthoracic and transesophageal echo. 49. Hyperlipidemia. 50. Anorexia with failure to thrive. PLAN: At this time the patient has been advised out of bed to chair. The patient has been ordered repeat labs. Current consultation Nephrology, Cardiology, Hematology, Infectious Disease. CURRENT MEDICATIONS: Humalog, Humulin low-dose sliding scale coverage, Lidoderm patch to the affected area of pain, Lipitor 10 mg daily, morphine 1 mg IV every 8 hours p.r.n. for pain, Pepcid 40 mg h.s., Periactin 4 mg twice a day, prednisone 5 mg daily, Prograf 1 mg daily, Rocephin 1 g IV daily, TobraDex eye ointment twice a day, Tylenol 650 mg p.o. suppository every 6 hours p.r.n., Xopenex 0.63 mg every 6 hours, Zetia 10 mg daily, Zofran 4 mg IV every 4 hours p.r.n. The patient was seen by Infectious Disease today. Their recommendation is to continue Rocephin, day #7 of the 10-14 days. The patient was seen by Nephrology yesterday. Their recommendation is to continue present treatment. The patient will be continued on physical therapy, occupational therapy, out of bed to chair. Dictated and electronically signed, not read. Mart Knox MD
--- NOTE | 2018-09-14 20:30 | CARD ---
APPROVED REPORT Date of service: 09/14/2018 EKG Measurement Heart [id number] <Conclusion> Sinus tachycardia Possible Left atrial enlargement Low voltage QRS Diffuse NDSTT abnormalities Prolonged QTc CCR Abnormal ECG
== END 2018-09-14 15:30 | disposition short-term general hospital (02) | DRG 871 ==
LOC: TRCU 21:28
PROVIDERS: ADMIT Internal Medicine; ATTEND Internal Medicine
PROC: F07Z9FZ Gait Training/Functional Ambulation Treatment using Assistive, Adaptive, Supportive or Protective Equipment (ICD-10-PCS; principal; 2018-09-12)
PROC: F07M6ZZ Therapeutic Exercise Treatment of Musculoskeletal System - Whole Body (ICD-10-PCS; 2018-09-12)
PROC: F08Z1ZZ Dressing Techniques Treatment (ICD-10-PCS; 2018-09-12)
PROC: F08Z2ZZ Grooming/Personal Hygiene Treatment (ICD-10-PCS; 2018-09-12)
PROC: F08Z0ZZ Bathing/Showering Techniques Treatment (ICD-10-PCS; 2018-09-12)
DX: A41.59 Other Gram-negative sepsis (principal); D65 Disseminated intravascular coagulation [defibrination syndrome]; E43 Unspecified severe protein-calorie malnutrition; J18.1 Lobar pneumonia, unspecified organism; N18.6 End stage renal disease; D68.8 Other specified coagulation defects; I12.0 Hypertensive chronic kidney disease with stage 5 chronic kidney disease or end stage renal disease; N25.81 Secondary hyperparathyroidism of renal origin; N39.0 Urinary tract infection, site not specified; Q61.2 Polycystic kidney, adult type; R18.8 Other ascites; R64 Cachexia; Z94.0 Kidney transplant status; D64.9 Anemia, unspecified; E11.22 Type 2 diabetes mellitus with diabetic chronic kidney disease; E11.65 Type 2 diabetes mellitus with hyperglycemia; E78.00 Pure hypercholesterolemia, unspecified; E78.5 Hyperlipidemia, unspecified; E83.39 Other disorders of phosphorus metabolism; I35.0 Nonrheumatic aortic (valve) stenosis; I70.0 Atherosclerosis of aorta; I71.4 Abdominal aortic aneurysm, without rupture; K21.9 Gastro-esophageal reflux disease without esophagitis; K59.00 Constipation, unspecified; M47.9 Spondylosis, unspecified; M89.9 Disorder of bone, unspecified; R31.29 Other microscopic hematuria; R62.7 Adult failure to thrive; R65.20 Severe sepsis without septic shock; Z79.4 Long term (current) use of insulin; Z87.440 Personal history of urinary (tract) infections; Z87.891 Personal history of nicotine dependence; Z95.3 Presence of xenogenic heart valve; Z99.2 Dependence on renal dialysis

== ENCOUNTER 2018-09-14 15:43 | Inpatient (IN) | payer MEDICARE, OTHER ==
[2018-09-14 15:48] VITALS: BMI 15.3
[2018-09-14] MEDS ORDERED: Sodium Chloride 0.9% 500 ML IV SCH (16:15)
--- NOTE | 2018-09-14 16:16 | ED PDOC ---
Arrival/HPI - General Chief Complaint: GI Problem Time Seen by Provider: 09/14/18 15:46 Historian: Patient - Critical Care Critical Care Minutes: 30 minutes - History of Present Illness Narrative History of Present Illness (Text): 09/14/18 16:15 67 M with pmh of anemia, HTN, ESRD on dialysis (MWF), AAA without repair, Kidney transplant on tacrolimus, AVR (bioprosthetic) presents with large bloody movement with clots approx 1 hour prior. Patient was initially admitted on 09/04 for lethargy and persistent diarrhea found to have Klebsiella UTI/PNA, Stable AAA, had a fall on 09/11 w/ negtaive Xrays, improved and then was transferred to TCU for physical rehabilitation. Rapid response was called after nurse found patient to have large bloody movement with clots. Pt denies any fall since the . He denies being on any blood thinners. 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 He notes his last dialysis was on saturday. He denies any shortness of breath or chest pain currently. He notes mild abdominal pain when he had a BM but otherwise denies any current complaints. No other complaints. Time/Duration: 24 hours Symptom Onset: Sudden Symptom Course: Unchanged Activities at Onset: Light Context: Home Past Medical History - Provider Review Nursing Documentation Reviewed: Yes - Infectious Disease Hx of Infectious Diseases: None - Cardiac Hx Cardiac Disorders: Yes (CAD, Aortic valve replacement.) Other/Comment: triple A - Pulmonary Hx Respiratory Disorders: No - Neurological Hx Neurological Disorder: No - HEENT Hx HEENT Disorder: Yes (wears glasses) - Renal Hx Renal Disorder: Yes (stage iv) Hx Dialysis: Yes (left arm fistula) - Endocrine/Metabolic Hx Diabetes Mellitus Type 2: Yes - Hematological/Oncological Hx Anemia: Yes (iron deficiency) - Integumentary Hx Dermatological Disorder: Yes Other/Comment: multiple skin discolorations ble - Musculoskeletal/Rheumatological Hx Falls: Yes Hx Unsteady Gait: Yes - Gastrointestinal Hx Gastrointestinal Disorders: Yes (poor appetite weight loss) - Genitourinary/Gynecological Hx Genitourinary Disorders: Yes - Psychiatric Hx Psychophysiologic Disorder: No Hx Substance Use: No - Surgical History Hx Kidney Transplant: Yes (R kidney) - Anesthesia Hx Anesthesia: Yes Hx Anesthesia Reactions: No Hx Malignant Hyperthermia: No Family/Social History - Physician Review Nursing Documentation Reviewed: Yes Family/Social History: Unknown Family HX Smoking Status: Former Smoker Hx Alcohol Use: No Hx Substance Use: No Allergies/Home Meds Allergies/Adverse Reactions: Allergies No Known Allergies Allergy (Verified 09/11/18 22:07) Review of Systems - Physician Review All systems were reviewed & negative as marked: Yes - Review of Systems Constitutional: Fatigue Eyes: absent: Vision Changes, Photophobia ENT: absent: Hearing Changes, TMJ Pain, Sore Throat Respiratory: absent: SOB, Cough Cardiovascular: absent: Chest Pain, Palpitations, BURNS Gastrointestinal: Stool Changes, Diarrhea (x1 with bloody stool), Hematochezia. absent: Abdominal Pain, Nausea, Vomiting Genitourinary Male: absent: Hematuria Musculoskeletal: absent: Arthralgias, Back Pain Skin: absent: Rash, Pruritis Neurological: absent: Headache Psychiatric: absent: Depression Physical Exam Vital Signs Reviewed: Yes Vital Signs Temp Pulse Resp BP Pulse Ox 09/14/18 15:44 98.2 F 115 H 18 86/56 L 91 L Temperature: Afebrile Blood Pressure: Hypotensive Pulse: Tachycardic Respiratory Rate: Normal Appearance: Positive for: Well-Appearing, Non-Toxic, Comfortable Pain Distress: Mild Mental Status: Positive for: Alert and Oriented X 3 - Systems Exam Head: Present: Atraumatic, Normocephalic Pupils: Present: PERRL Extroacular Muscles: Present: EOMI Conjunctiva: Present: Normal Mouth: Present: Moist Mucous Membranes Neck: Present: Normal Range of Motion. No: Meningeal Signs, MIDLINE TENDERNESS Respiratory/Chest: Present: Clear to Auscultation, Good Air Exchange. No: Respiratory Distress, Accessory Muscle Use Cardiovascular: Present: Regular Rate and Rhythm, Normal S1, S2. No: Murmurs Abdomen: No: Tenderness, Distention, Peritoneal Signs Rectal: Present: Normal Rectal Tone, Other (Guaiac positive. Maroon Stool). No: Rectal Tenderness, Hemorrhoids, Fissures, Nodule/Mass/Lesions Back: Present: Normal Inspection. No: CVA Tenderness, Midline Tenderness Upper Extremity: Present: Normal Inspection, NORMAL PULSES, Neurovascularly Intact, Capillary Refill < 2s, Other (LUE fistula w/ good bruit and good thrill, no erythema or crepitus noted overlaying). No: Cyanosis, Edema, Tenderness, Erythema Lower Extremity: Present: Normal Inspection, NORMAL PULSES, Neurovascularly Intact. No: Edema Neurological: Present: GCS=15, CN II-XII Intact, Speech Normal, Motor Func Grossly Intact Skin: Present: Warm, Dry, Normal Color. No: Rashes Psychiatric: Present: Alert, Oriented x 3, Normal Insight, Normal Concentration Medical Decision Making ED Course and Treatment: 09/14/18 16:13 Impression: 67 M with pmh of anemia, hypertension, ESRD on dialysis (MWF), AAA, and on tacrolimus due to kidney transplant presents with hematochezia and large bloody movement with clots. Pt in NAD at this time, tachy in the 110s w/ BP ~90/60s. Was given report that pt normally has low pressures. He denies any pain besides abdominal pain when he had a BM. On exam, no tenderness or signs of trauma. Rectal Exam done bedside w/ melanotic stool, protonix ordered. Gentle hydration ordered given on IV drip and hx of low BP as well as good mentation. No indication of sepsis at this time. Likely GI bleed. No blood thinners. 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 Plan: -- Labs -- EKG -- Protonix IV -- UA Prior Visits: Notes and results from previous visits were reviewed. Progress Notes: 09/14/18 17:23 EK, sinus tachy, no stemi 09/14/18 17:55 Hemoglobin 10, improved from prior. lactic 3.8, but no elevated WBC or febrile pt in NAD. no indication of sepsis at this time 09/14/18 18:05 CT w/ known PNA and UTI, stable AAA largely unchanged from previous rocephin given earlier at 0600, given elevated lactic + tachy + PNA however will add zosyn. 09/14/18 19:42 appreciate consult w/ Dr. Buckner: to admit to ICU Pt in NAD - RAD Interpretation Radiology Orders: 09/14/18 16:01 ABDOMEN & PELVIS [ABD & PELVIS W/O PO OR IV CONT] [CT] Stat - Medication Orders Current Medication Orders: Pantoprazole Sodium (Protonix 40mg Ivpb) 40 mg in 100 mls @ 20 mls/hr IVPB .Q5H TA[place] Sodium Chloride (Sodium Chloride 0.9%) 500 mls @ 30 mls/hr IV .[id number] TA[place]NA Discontinued Medications Pantoprazole Sodium (Protonix Inj) 80 mg IVP STAT STA Stop: 09/14/18 15:54 - Scribe Statement The provider has reviewed the documentation as recorded by the Lisa Preston Provider [place] Attestation: All medical record entries made by the Scribe were at my direction and personally dictated by me. I have reviewed the chart and agree that the record accurately reflects my personal performance of the history, physical exam, medical decision making, and the department course for this patient. I have also personally directed, reviewed, and agree with the discharge instructions and disposition. Disposition/Present on Arrival - Present on Arrival Any Indicators Present on Arrival: No History of DVT/PE: No History of Uncontrolled Diabetes: No Urinary Catheter: No History of Decub. Ulcer: No History Surgical Site Infection Following: None - Disposition Have Diagnosis and Disposition been Completed?: Yes Diagnosis: Melena, GI bleed Disposition Time: 17:30 Patient Problems: Current Active Problems Problem Status Onset Hypertensive CKD, ESRD on dialysis Chronic Melena Acute GI bleed Acute Condition: STABLE Referrals: PCP,NO [Primary Care Provider] - Follow up with primary Forms: [employer] (Ukrainian)
[2018-09-14] MEDS: Pantoprazole 40mg/100mL NS 40 MG/100 ML BAG IVPB SCH ×2 (16:45→21:58)
[2018-09-14 16:58] LABS: VENOUS BLOOD GAS BASE EXCESS 1.2 mmol/L (0.0-2.0); VENOUS BLOOD GAS PO2 25 mm/Hg (30-55)
[2018-09-14] MEDS: Sodium Chloride 0.9% 500 ML IV SCH (17:18)
[2018-09-14 17:23] LABS: HEMOGLOBIN 10.9 g/dL (14.0-18.0); LYMPH # 0.5 (1.2-3.4); MEAN CELL VOLUME 77.9 fl (80.0-105.0); MEAN CORPUSCULAR HEMOGLOBIN 22.3 pg (25.0-35.0); MEAN CORPUSCULAR HGB CONC 28.7 g/dl (31.0-37.0); MONO # 0.2 (0.1-0.6); MONO % 2.2 % (1.0-6.0); PLATELET COUNT 67 10^3/uL (120.0-450.0); RBC 4.88 10^6/uL (3.5-6.1); RED CELL DISTRIBUTION WIDTH 20.6 % (11.5-14.5)
[2018-09-14 17:25] LABS: ALB/GLOB RATIO 0.7 (1.1-1.8); ALBUMIN 2.6 g/dL (3.0-4.8); CALCIUM 8.1 mg/dL (8.4-10.5)
[2018-09-14 17:32] LABS: INR 1.32; PARTIAL THROMBOPLASTIN TIME 37.8 Seconds (26.9-38.3); PROTHROMBIN TIME 14.7 SECONDS (9.4-12.5)
--- NOTE | 2018-09-14 17:55 | CT ---
PROCEDURE: CT Abdomen and Pelvis without Oral or IV contrast. HISTORY: AAA, blood stool COMPARISON: Numerous prior cross-sectional studies including CT abdomen and pelvis without contrast performed 09/07/18 TECHNIQUE: Contiguous axial images of the abdomen and pelvis. No oral or IV contrast administered. Coronal and Sagittal reformats generated and reviewed. Radiation dose: Total exam DLP = 278.07 mGy-cm. This CT exam was performed using one or more of the following dose reduction techniques: Automated exposure control, adjustment of the mA and/or kV according to patient size, and/or use of iterative reconstruction technique. FINDINGS: Examination is severely limited due to by paucity of intra-abdominal intrapelvic fat as well as lack of oral or IV contrast. LOWER THORAX: Bilateral pleural effusions and associated consolidations. Patchy consolidation in the right middle and lower lobes. Dense atherosclerotic calcifications of an ectatic aorta. Median sternotomy wires. LIVER: Heterogeneous appearance of the liver with innumerable hypodensities, possibly tiny cysts or hemangiomas. Ill-defined hypodense region within the hepatic dome spanning approximately 16 x 10 mm (image 16, series 3) indeterminate. GALLBLADDER AND BILE DUCTS: Not visualized. PANCREAS: Not visualized. SPLEEN: Grossly unremarkable. ADRENALS: Unremarkable. KIDNEYS AND URETERS: Hydronephrosis of the transplanted right lower quadrant kidney. Innumerable bilateral renal cysts of the mcgrath kidneys consistent with polycystic kidney disease. BLADDER: Thick-walled urinary bladder REPRODUCTIVE: Grossly unremarkable. APPENDIX: Not visualized. BOWEL: The stomach is nondistended. Lack of oral contrast limits evaluation for bowel pathology. Suboptimal visualization of bowel loops. Extensive diverticulosis. PERITONEUM: Abdominal/pelvic ascites. No definite free air. LYMPH NODES: Not well assessed due to patient emaciated state, ascites, absence of oral and IV contrast. VASCULATURE: Extensive atherosclerotic calcifications of a severely aneurysmal abdominal aorta measuring approximately 7.7 x 8.6 x 12.9 cm (AP by transverse by cc dimension). 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 BONES: Degenerative changes. Osseous sclerosis likely related to renal osteodystrophy. OTHER FINDINGS: None. IMPRESSION: Severely limited study as above. Bilateral pleural effusions and associated consolidations as well as patchy consolidation involving the right middle and lower lobes. Extensive atherosclerotic calcifications of severely aneurysmal abdominal aorta. 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 Suboptimal visualization of bowel loops. Extensive diverticulosis. Abdominal and pelvic ascites. Innumerable bilateral renal cysts of the mcgrath kidneys consistent with polycystic kidney disease. Hydronephrosis of the transplanted right lower quadrant kidney. Heterogeneous appearance of the liver with innumerable hypodensities, possibly tiny cysts or hemangiomas. Ill-defined hypodense region within the hepatic dome spanning approximately 16 x 10 mm, indeterminate. Urinary bladder appears thick walled; correlate with urinalysis. Additional findings as above.
[2018-09-14] MEDS ORDERED: Piperacillin/Tazobact 3.375 gm 100 ML IVPB STA (18:55)
[2018-09-14 19:01] LABS: LYMPHOCYTE 6 % (22.0-35.0); MONOCYTE 5 % (1.0-6.0); NEUTROPHIL 89 % (50.0-70.0); PLATELET ESTIMATE LOW (NORMAL)
[2018-09-14 19:02] LABS: HYPOCHROMIA 1+; ROULEAU 2+; TOXIC GRANULATION 1+
--- NOTE | 2018-09-14 19:11 | CP.PCM.HP ---
History of Present Illness - History of Present Illness History of Present Illness: Tamiko Richards, PGY1 H&P for Dr. Knox's Service This is a 67 year old male with a past medical history significant for ADPKD s/p renal allograft (2006), ESRD on HD MWF, post-transplant DM2, HTN, severe , and unrepaired infrarenal AAA who was admitted for lethargy and persistent diarrhea and transferred to TCU for physical rehabilitation. 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 Initial vitals included BP of 89/67, pulse of 118, O2 sat of 98% and temperature of 97.9F with glucose of 260. Upon arrival, patient noted to be resting comfortably in no acute distress and denied CP, SOB, fevers, nausea, vomiting, back pain, abdominal pain, numbness, tingling, swelling, chills and dizziness. Patient denies any history of bloody bowel movement and states his BM have been regular. Repeat vitals taken a few minutes later revealed BP of 110/79, pulse of 118, O2 of 98 and temp of 97.9F. Patient subsequently taken to the ED. PMH: ADPKD s/p renal allograft (2006), ESRD on HD MWF, post-transplant DM2, HTN, severe , and unrepaired infrarenal AAA PSH: AVR, renal transplant (2006) Family History: Non-contributory at this time Social History: Former smoker; Denies any current tobacco, alcohol or illicit drug use Allergies: NKDA Present on Admission - Present on Admission Any Indicators Present on Admission: No Past Patient History - Infectious Disease Hx of Infectious Diseases: None - Past Medical History & Family History Past Medical History?: Yes - Past Social History Smoking Status: Former Smoker - CARDIAC Hx Cardiac Disorders: Yes (CAD, Aortic valve replacement.) Other/Comment: triple A - PULMONARY Hx Respiratory Disorders: No - NEUROLOGICAL Hx Neurological Disorder: No - HEENT Hx HEENT Problems: Yes (wears glasses) - RENAL Hx Chronic Kidney Disease: Yes (stage iv) Hx Dialysis: Yes (left arm fistula) - ENDOCRINE/METABOLIC Hx Diabetes Mellitus Type 2: Yes - HEMATOLOGICAL/ONCOLOGICAL Hx Anemia: Yes (iron deficiency) - INTEGUMENTARY Hx Dermatological Problems: Yes Other/Comment: multiple skin discolorations ble - MUSCULOSKELETAL/RHEUMATOLOGICAL Hx Falls: Yes Hx Unsteady Gait: Yes - GASTROINTESTINAL Hx Gastrointestinal Disorders: Yes (poor appetite weight loss) - GENITOURINARY/GYNECOLOGICAL Hx Genitourinary Disorders: Yes - PSYCHIATRIC Hx Psychophysiologic Disorder: No Hx Substance Use: No - SURGICAL HISTORY Hx Kidney Transplant: Yes (R kidney) - ANESTHESIA Hx Anesthesia: Yes Hx Anesthesia Reactions: No Hx Malignant Hyperthermia: No Meds Allergies/Adverse Reactions: Allergies Allergy/AdvReac Type Severity Reaction Status Date / Time No Known Allergies Allergy Verified 09/11/18 22:07 Results - Vital Signs Recent Vital Signs: Last Vital Signs Temp 98.2 F 09/14/18 15:44 Pulse 113 H 09/14/18 17:18 Resp 18 09/14/18 17:18 BP 114/82 09/14/18 17:18 Pulse Ox 95 09/14/18 17:18 - Constitutional Appears: No Acute Distress, Cachectic, Chronically Ill - Head Head Exam: ATRAUMATIC, NORMAL INSPECTION - Eyes Eye Exam: EOMI - Respiratory Exam Respiratory Exam: Clear to Ausculation Bilateral. absent: Accessory Muscle Use, Respiratory Distress - Cardiovascular Exam Cardiovascular Exam: REGULAR RHYTHM, +S1, +S2 - GI/Abdominal Exam GI & Abdominal Exam: Soft. absent: Guarding, Rigid, Tenderness - Neurological Exam Neurological Exam: Awake, CN II-XII Intact, Oriented x3 Additional exam: Moving all extremities spontaneously, no motor/sensory deficits appreciated - Extremities Exam Extremities Exam: Normal Inspection. absent: Calf Tenderness, Tenderness Additional comments: cachectic lower extremities noted - Labs Result Diagrams: 09/14/18 16:30 09/14/18 16:30 Labs: Laboratory Results - last 24 hr 09/14/18 09/14/18 09/14/18 16:30 16:30 16:30 WBC 9.0 RBC 4.88 Hgb 10.9 L Hct 38.0 L MCV 77.9 L MCH 22.3 L MCHC 28.7 L RDW 20.6 H Plt Count 67 L Neut % (Auto) 92.8 H Lymph % (Auto) 5.0 L [place] % (Auto) 2.2 Eos % (Auto) 0.0 L Baso % (Auto) 0.0 Lymph # (Auto) 0.5 L [place] # (Auto) 0.2 Eos # (Auto) 0.0 Baso # (Auto) 0.00 Absolute Neuts (auto) 8.37 H Neutrophils % (Manual) 89 H Lymphocytes % (Manual) 6 L Monocytes % (Manual) 5 Toxic Granulation 1+ Platelet Evaluation Low Hypochromasia 1+ Rouleaux 2+ PT 14.7 H INR 1.32 APTT 37.8 pO2 VBG pH VBG pCO2 VBG HCO3 VBG Total CO2 VBG O2 Sat (Calc) VBG Base Excess VBG Potassium Glucose Lactate FiO2 Crit Value Called To Crit Value Called By Blood Gas Notified Time Sodium 139 Potassium 4.0 Chloride 99 Carbon Dioxide 28 Anion Gap 16 BUN 48 H Creatinine 2.9 H Est GFR ( Amer) 27 Est GFR (Non-Af Amer) 22 Random Glucose 261 H Calcium 8.1 L Total Bilirubin 0.5 AST 45 ALT 13 Alkaline Phosphatase 172 H Total Protein 6.3 Albumin 2.6 L Globulin 3.7 Albumin/Globulin Ratio 0.7 L Venous Blood Potassium Blood Type Antibody Screen BBK History Checked 09/14/18 09/14/18 16:32 16:44 WBC RBC Hgb Hct MCV MCH MCHC RDW Plt Count Neut % (Auto) Lymph % (Auto) [place] % (Auto) Eos % (Auto) Baso % (Auto) Lymph # (Auto) [place] # (Auto) Eos # (Auto) Baso # (Auto) Absolute Neuts (auto) Neutrophils % (Manual) Lymphocytes % (Manual) Monocytes % (Manual) Toxic Granulation Platelet Evaluation Hypochromasia Rouleaux PT INR APTT pO2 25 L VBG pH 7.30 L VBG pCO2 59.0 VBG HCO3 29.0 H VBG Total CO2 30.8 H VBG O2 Sat (Calc) 37.8 L VBG Base Excess 1.2 VBG Potassium 4.1 Glucose 265 H Lactate 3.8 H FiO2 21.0 Crit Value Called To leilani Huggins md Crit Value Called By Barbara dill director of ancillary services Blood Gas Notified Time 1658 Sodium 138.0 Potassium Chloride 100.0 Carbon Dioxide Anion Gap BUN Creatinine Est GFR ( Amer) Est GFR (Non-Af Amer) Random Glucose Calcium Total Bilirubin AST ALT Alkaline Phosphatase Total Protein Albumin Globulin Albumin/Globulin Ratio Venous Blood Potassium 4.1 Blood Type O POSITIVE Antibody Screen Negative BBK History Checked Patient has bt Assessment & Plan - Assessment and Plan (Free Text) Assessment: This is a 67 year old male with a past medical history significant for ADPKD s/p renal allograft (2006), ESRD on HD MWF, post-transplant DM2, HTN, severe , and unrepaired infrarenal AAA who is being admitted for bloody BM while undergoing rehab in the TCU on 09/14/18. Plan: Lower GI bleeding -GI on consult, Dr. Cordova -bleeding scan pending -H/H q6 -1 unit FFP pending -1 unit platelets pending UTI bacteremia -klebsiella in the blood -SUHAIL negative for valvulvar vegetations -ID on consult -Cardio on consult -continue rocephin day 7 for 10-14 days ESRD -next scheduled for Saturday -Nephro on consult, Dr. Wheeler Thrombocytopenia -hematology consulted, Dr. Leigh PPX -DVT ppx Patient reviewed and discussed with attending, Dr. Knox
[2018-09-14] MEDS ORDERED: Morphine 2 mg/ml ISec IVP PRN (19:43)
[2018-09-14] MEDS: Levalbuterol 0.63 MG/3 ML Inhal Soln UD IH SCH (21:00)
--- NOTE | 2018-09-14 21:15 | CP.PCM.CON ---
<YunierRafael R - Last Filed: 09/14/18 21:33> History of Present Illness - History of Present Illness History of Present Illness: PGY-2 ICU consult note for Dr Buckner This is a 67 year old male with a past medical history significant for ADPKD s/p renal allograft (2006), ESRD on HD MWF, post-transplant DM2, HTN, severe , and unrepaired infrarenal AAA who was admitted for lethargy, persistent diarrhea, treated for klebsiella bacteremia 2/2 to UTI, and transferred to TCU for physical rehabilitation. CARE ASSISTANT called this afternoon after nurse found patient to have large bloody movement with clots. Initial vitals included BP of 89/67, pulse of 118, O2 sat of 98% and temperature of 97.9F with glucose of 260. Upon arrival, patient noted to be resting comfortably in no acute distress and denied CP, SOB, fevers, nausea, vomiting, back pain, abdominal pain, numbness, tingling, swelling, chills and dizziness. Patient denies any history of bloody bowel movement and states his BM have been regular. Repeat vitals taken a few minutes later revealed BP of 110/79, pulse of 118, O2 of 98 and temp of 97.9F. Patient subsequently taken to the ED and now in ICU for further monitoring. PMH: ADPKD s/p renal allograft (2006), ESRD on HD MWF, post-transplant DM2, HTN, severe , and unrepaired infrarenal AAA PSH: AVR, renal transplant (2006) Family History: Non-contributory at this time Social History: Former smoker; Denies any current tobacco, alcohol or illicit drug use Allergies: NKDA Home Meds: as EMR Past Patient History - Infectious Disease Hx of Infectious Diseases: None - Past Medical History & Family History Past Medical History?: Yes - Past Social History Smoking Status: Former Smoker - CARDIAC Hx Cardiac Disorders: Yes (CAD, Aortic valve replacement.) Other/Comment: triple A - PULMONARY Hx Respiratory Disorders: No - NEUROLOGICAL Hx Neurological Disorder: No - HEENT Hx HEENT Problems: Yes (wears glasses) - RENAL Hx Chronic Kidney Disease: Yes (stage iv) Hx Dialysis: Yes (left arm fistula) - ENDOCRINE/METABOLIC Hx Diabetes Mellitus Type 2: Yes - HEMATOLOGICAL/ONCOLOGICAL Hx Anemia: Yes (iron deficiency) - INTEGUMENTARY Hx Dermatological Problems: Yes Other/Comment: multiple skin discolorations ble - MUSCULOSKELETAL/RHEUMATOLOGICAL Hx Falls: Yes Hx Unsteady Gait: Yes - GASTROINTESTINAL Hx Gastrointestinal Disorders: Yes (poor appetite weight loss) - GENITOURINARY/GYNECOLOGICAL Hx Genitourinary Disorders: Yes - PSYCHIATRIC Hx Psychophysiologic Disorder: No Hx Substance Use: No - SURGICAL HISTORY Hx Kidney Transplant: Yes (R kidney) - ANESTHESIA Hx Anesthesia: Yes Hx Anesthesia Reactions: No Hx Malignant Hyperthermia: No Meds Allergies/Adverse Reactions: Allergies Allergy/AdvReac Type Severity Reaction Status Date / Time No Known Allergies Allergy Verified 09/11/18 22:07 - Medications Medications: Current Medications Acetaminophen (Tylenol 325mg Tab) 650 mg PO Q4H PRN PRN Reason: temp > 99.5F Atorvastatin Calcium (Lipitor) 10 mg PO DIN [place] Cyproheptadine HCl (Periactin) 4 mg PO BID [place] Ezetimibe (Zetia) 10 mg PO DAILY [place] Famotidine (Pepcid) 40 mg PO HS [place] Pantoprazole Sodium (Protonix 40mg Ivpb) 40 mg in 100 mls @ 20 mls/hr IVPB .Q5H [facility] Last Admin: 09/14/18 16:45 Dose: 20 mls/hr Sodium Chloride (Sodium Chloride 0.9%) 500 mls @ 10 mls/hr IV .Q24H [facility] Last Admin: 09/14/18 17:18 Dose: 10 mls/hr Ceftriaxone Sodium (Rocephin 1 Gram Ivpb) 1 gm in 100 mls @ 100 mls/hr IVPB DAILY [place]; Protocol Insulin Human Regular (Humulin R Low) 0 units SC ACHS [place]; Protocol Levalbuterol HCl (Xopenex) 0.63 mg IH TIDRESP [place] Lidocaine (Lidoderm) 1 ea TD DAILY [place] Morphine Sulfate (Morphine) 1 mg IVP Q8H PRN PRN Reason: Pain, severe (8-10) Prednisone (Prednisone Tab) 5 mg PO BRK [place] Tacrolimus (Prograf Cap) 1 mg PO QAM [place] Results - Vital Signs Recent Vital Signs: Last Vital Signs Temp 98.2 F 09/14/18 15:44 Pulse 114 H 09/14/18 19:47 Resp 21 09/14/18 19:47 BP 116/88 09/14/18 19:47 Pulse Ox 97 09/14/18 19:47 - Labs Result Diagrams: 09/14/18 16:30 09/14/18 16:30 Labs: Laboratory Results - last 24 hr 09/14/18 09/14/18 09/14/18 16:30 16:30 16:30 WBC 9.0 RBC 4.88 Hgb 10.9 L Hct 38.0 L MCV 77.9 L MCH 22.3 L MCHC 28.7 L RDW 20.6 H Plt Count 67 L Neut % (Auto) 92.8 H Lymph % (Auto) 5.0 L [place] % (Auto) 2.2 Eos % (Auto) 0.0 L Baso % (Auto) 0.0 Lymph # (Auto) 0.5 L [place] # (Auto) 0.2 Eos # (Auto) 0.0 Baso # (Auto) 0.00 Absolute Neuts (auto) 8.37 H Neutrophils % (Manual) 89 H Lymphocytes % (Manual) 6 L Monocytes % (Manual) 5 Toxic Granulation 1+ Platelet Evaluation Low Hypochromasia 1+ Rouleaux 2+ PT 14.7 H INR 1.32 APTT 37.8 pO2 VBG pH VBG pCO2 VBG HCO3 VBG Total CO2 VBG O2 Sat (Calc) VBG Base Excess VBG Potassium Glucose Lactate FiO2 Crit Value Called To Crit Value Called By Blood Gas Notified Time Sodium 139 Potassium 4.0 Chloride 99 Carbon Dioxide 28 Anion Gap 16 BUN 48 H Creatinine 2.9 H Est GFR ( Amer) 27 Est GFR (Non-Af Amer) 22 Random Glucose 261 H Calcium 8.1 L Total Bilirubin 0.5 AST 45 ALT 13 Alkaline Phosphatase 172 H Total Protein 6.3 Albumin 2.6 L Globulin 3.7 Albumin/Globulin Ratio 0.7 L Venous Blood Potassium Blood Type Antibody Screen BBK History Checked 09/14/18 09/14/18 16:32 16:44 WBC RBC Hgb Hct MCV MCH MCHC RDW Plt Count Neut % (Auto) Lymph % (Auto) [place] % (Auto) Eos % (Auto) Baso % (Auto) Lymph # (Auto) [place] # (Auto) Eos # (Auto) Baso # (Auto) Absolute Neuts (auto) Neutrophils % (Manual) Lymphocytes % (Manual) Monocytes % (Manual) Toxic Granulation Platelet Evaluation Hypochromasia Rouleaux PT INR APTT pO2 25 L VBG pH 7.30 L VBG pCO2 59.0 VBG HCO3 29.0 H VBG Total CO2 30.8 H VBG O2 Sat (Calc) 37.8 L VBG Base Excess 1.2 VBG Potassium 4.1 Glucose 265 H Lactate 3.8 H FiO2 21.0 Crit Value Called To leilani Huggins md Crit Value Called By Barbara dill pole shaver helper Blood Gas Notified Time 1658 Sodium 138.0 Potassium Chloride 100.0 Carbon Dioxide Anion Gap BUN Creatinine Est GFR ( Amer) Est GFR (Non-Af Amer) Random Glucose Calcium Total Bilirubin AST ALT Alkaline Phosphatase Total Protein Albumin Globulin Albumin/Globulin Ratio Venous Blood Potassium 4.1 Blood Type O POSITIVE Antibody Screen Negative BBK History Checked Patient has bt Assessment & Plan - Assessment and Plan (Free Text) Plan: This is a 67 year old male with a past medical history significant for ADPKD s/p renal allograft (2006), ESRD on HD MWF, post-transplant DM2, HTN, severe , and unrepaired infrarenal AAA who was admitted for lethargy, persistent diarrhea, treated for klebsiella bacteremia 2/2 to UTI, and transferred to TCU for physical rehabilitation where he had 1 episode of large bloody bowel movement with clots: Gastrointestinal -1 episode of large bloody bowel movement with clots -hemoglobin stable compared to hemoglobin level 2 days ago -CT abd/pelvis w/o contrast: Extensive diverticulosis. Abdominal and pelvic ascites. Heterogeneous appearance of the liver with innumerable hypodensities, possibly tiny cysts or hemangiomas. Ill-defined hypodense region within the hepatic dome spanning approximately 16 x 10 mm, indeterminate. -transfuse 1 bag FFP and 1 bag platelets -h/h draws q6h - tranfuse pRBCs if hg < 8 -protonix drip -pepcid 40mg po hs -f/u bleeding scan -f/u fibrinogen level and fibrin split products -NPO except meds -GI consulted, Dr Cordova Pulmonary -saturating well on room air -CT abd/pelvis w/o contrast: Bilateral pleural effusions and associated consolidations as well as patchy consolidation involving the right middle and l ower lobes. -c/w xopenex 0.63mg IH TID Cardiovascular -HTN, severe , and unrepaired infrarenal AAA -CT abd/pelvis w/o contrast: Extensive atherosclerotic calcifications of severely aneurysmal abdominal aorta. 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 Hydronephrosis of the transplanted right lower quadrant kidney. -nephro consulted, Dr Wheeler Infectious -afebrile, no white count -recently with klebsiella bacteremia 2/2 UTI - recent SUHAIL negative for valvular vegetations -CT abd/pelvis w/o contrast: Bilateral pleural effusions and associated consolidations as well as patchy consolidation involving the right middle and lower lobes. Urinary bladder appears thick walled; correlate with urinalysis. -was receiving rocephin total 10-14 days -c/w rocephin 1g ivpb qd -1 dose zosyn given in ED -f/u UA, blood cx -ID consulted, Dr Squires Neuro -patient confused at times -f/u ammonia level -c/w tacrolimus 1mg po qam, prednisone 5mg po brk Hematology -thrombocytopenic - multifactorial, believed to have been due to DIC from sepsis/immunosupression -anemia 2/2 renal dz receiving MARK per renal -heme/onc consulted, Dr Leigh Endocrine -hx of DM2 -RISS low dose protocol Seen and discussed with Dr Buckner <Bandar Buckner - Last Filed: 09/15/18 02:15> Meds - Medications Medications: Current Medications Acetaminophen (Tylenol 325mg Tab) 650 mg PO Q4H PRN PRN Reason: temp > 99.5F Atorvastatin Calcium (Lipitor) 10 mg PO DIN [place] Cyproheptadine HCl (Periactin) 4 mg PO BID [place] Ezetimibe (Zetia) 10 mg PO DAILY [place] Famotidine (Pepcid) 40 mg PO HS [place] Last Admin: 09/14/18 21:58 Dose: 40 mg Pantoprazole Sodium (Protonix 40mg Ivpb) 40 mg in 100 mls @ 20 mls/hr IVPB .Q5H [place] Last Admin: 09/14/18 21:58 Dose: 20 mls/hr Sodium Chloride (Sodium Chloride 0.9%) 500 mls @ 10 mls/hr IV .Q24H [facility] Last Admin: 09/14/18 17:18 Dose: 10 mls/hr Ceftriaxone Sodium (Rocephin 1 Gram Ivpb) 1 gm in 100 mls @ 100 mls/hr IVPB DAILY [place]; Protocol Insulin Human Regular (Humulin R Low) 0 units SC ACHS [place]; Protocol Last Admin: 09/14/18 21:59 Dose: Not Given Levalbuterol HCl (Xopenex) 0.63 mg IH TIDRESP [place] Last Admin: 09/14/18 21:00 Dose: 0.63 mg Lidocaine (Lidoderm) 1 ea TD DAILY [facility] Morphine Sulfate (Morphine) 1 mg IVP Q8H PRN PRN Reason: Pain, severe (8-10) Prednisone (Prednisone Tab) 5 mg PO BRK [place] Tacrolimus (Prograf Cap) 1 mg PO QAM [facility] Results - Vital Signs Recent Vital Signs: Last Vital Signs Temp 98.2 F 09/14/18 15:44 Pulse 114 H 09/14/18 21:26 Resp 21 09/14/18 21:26 BP 116/88 09/14/18 21:26 Pulse Ox 97 09/14/18 21:26 - Labs Result Diagrams: 09/15/18 00:10 09/14/18 16:30 Labs: Laboratory Results - last 24 hr 09/14/18 09/14/18 09/14/18 16:30 16:30 16:30 WBC 9.0 RBC 4.88 Hgb 10.9 L Hct 38.0 L MCV 77.9 L MCH 22.3 L MCHC 28.7 L RDW 20.6 H Plt Count 67 L Neut % (Auto) 92.8 H Lymph % (Auto) 5.0 L [place] % (Auto) 2.2 Eos % (Auto) 0.0 L Baso % (Auto) 0.0 Lymph # (Auto) 0.5 L [place] # (Auto) 0.2 Eos # (Auto) 0.0 Baso # (Auto) 0.00 Absolute Neuts (auto) 8.37 H Neutrophils % (Manual) 89 H Lymphocytes % (Manual) 6 L Monocytes % (Manual) 5 Toxic Granulation 1+ Platelet Evaluation Low Hypochromasia 1+ Rouleaux 2+ PT 14.7 H INR 1.32 APTT 37.8 pO2 VBG pH VBG pCO2 VBG HCO3 VBG Total CO2 VBG O2 Sat (Calc) VBG Base Excess VBG Potassium Glucose Lactate FiO2 Crit Value Called To Crit Value Called By Blood Gas Notified Time Sodium 139 Potassium 4.0 Chloride 99 Carbon Dioxide 28 Anion Gap 16 BUN 48 H Creatinine 2.9 H Est GFR ( Amer) 27 Est GFR (Non-Af Amer) 22 Random Glucose 261 H Calcium 8.1 L Total Bilirubin 0.5 AST 45 ALT 13 Alkaline Phosphatase 172 H Ammonia Total Protein 6.3 Albumin 2.6 L Globulin 3.7 Albumin/Globulin Ratio 0.7 L Venous Blood Potassium Blood Type Antibody Screen BBK History Checked 09/14/18 09/14/18 09/15/18 16:32 16:44 00:10 WBC RBC Hgb Hct MCV MCH MCHC RDW Plt Count Neut % (Auto) Lymph % (Auto) [place] % (Auto) Eos % (Auto) Baso % (Auto) Lymph # (Auto) [place] # (Auto) Eos # (Auto) Baso # (Auto) Absolute Neuts (auto) Neutrophils % (Manual) Lymphocytes % (Manual) Monocytes % (Manual) Toxic Granulation Platelet Evaluation Hypochromasia Rouleaux PT INR APTT pO2 25 L 49 VBG pH 7.30 L 7.34 VBG pCO2 59.0 55.0 VBG HCO3 29.0 H 29.7 H VBG Total CO2 30.8 H 31.4 H VBG O2 Sat (Calc) 37.8 L 82.2 H VBG Base Excess 1.2 2.6 H VBG Potassium 4.1 4.1 Glucose 265 H 281 H Lactate 3.8 H 2.9 H FiO2 21.0 21.0 Crit Value Called To leilani Huggins md pharmacy grad intern Crit Value Called By Barbara dill pole shaver helper [employer] Blood Gas Notified Time 1658 33 Sodium 138.0 142.0 Potassium Chloride 100.0 104.0 Carbon Dioxide Anion Gap BUN Creatinine Est GFR ( Amer) Est GFR (Non-Af Amer) Random Glucose Calcium Total Bilirubin AST ALT Alkaline Phosphatase Ammonia Total Protein Albumin Globulin Albumin/Globulin Ratio Venous Blood Potassium 4.1 4.1 Blood Type O POSITIVE Antibody Screen Negative BBK History Checked Patient has bt 09/15/18 09/15/18 00:10 00:10 WBC RBC Hgb 9.9 L Hct 34.9 L MCV MCH MCHC RDW Plt Count Neut % (Auto) Lymph % (Auto) [place] % (Auto) Eos % (Auto) Baso % (Auto) Lymph # (Auto) [place] # (Auto) Eos # (Auto) Baso # (Auto) Absolute Neuts (auto) Neutrophils % (Manual) Lymphocytes % (Manual) Monocytes % (Manual) Toxic Granulation Platelet Evaluation Hypochromasia Rouleaux PT INR APTT pO2 VBG pH VBG pCO2 VBG HCO3 VBG Total CO2 VBG O2 Sat (Calc) VBG Base Excess VBG Potassium Glucose Lactate FiO2 Crit Value Called To Crit Value Called By Blood Gas Notified Time Sodium Potassium Chloride Carbon Dioxide Anion Gap BUN Creatinine Est GFR ( Amer) Est GFR (Non-Af Amer) Random Glucose Calcium Total Bilirubin AST ALT Alkaline Phosphatase Ammonia < 9 L Total Protein Albumin Globulin Albumin/Globulin Ratio Venous Blood Potassium Blood Type Antibody Screen BBK History Checked Attending/Attestation - Attestation I have personally seen and examined this patient.: Yes I have fully participated in the care of the patient.: Yes I have reviewed all pertinent clinical information: Yes Notes (Text): 09/15/18 02:13 Seen and examined. Discussed with resident. A&P as above. Report large melanotic BM. Given tachycardia and hypotension, will observe in ICU. H&H Q 4, NPO, Protonix gtt and GI consult.
[2018-09-14] MEDS: Insulin Reg-LOW-Coverage SC SCH (21:59)
[2018-09-15 00:28] LABS: HEMOGLOBIN 9.9 g/dL (14.0-18.0)
[2018-09-15 00:33] LABS: VENOUS BLOOD GAS BASE EXCESS 2.6 mmol/L (0.0-2.0); VENOUS BLOOD GAS PO2 49 mm/Hg (30-55); VENOUS BLOOD PH 7.34 (7.32-7.43)
[2018-09-15] MEDS: Pantoprazole 40mg/100mL NS 40 MG/100 ML BAG IVPB SCH ×3 (06:00→23:01)
--- NOTE | 2018-09-15 06:41 | CP.PCM.CON ---
<Ginger Daniel - Last Filed: 09/15/18 18:11> History of Present Illness - History of Present Illness History of Present Illness: Ginger Daniel, PGY2, GI Consult Note for Dr Cordova: Reason for consult: bloody BM This is a 67 year old male, poor historian, with extensive PMH, including ADPKD s/p right renal allograft (transplanted in 2006, failed Jun 2018), ESRD on HD MWF, post-transplant DM2, HTN, severe with hx of prior AV replacement (not candidate for TAVR as of 2018), and unrepaired infrarenal AAA, was initially admitted [place] [facility] [place] to [facility] for lethargy/persistent diarrhea and treated for klebsiella bacteremia 07/12 to UTI. While in the TCU undergoing rehab, he was found to have a large bloody BM with clots, with hypotension, tachycardia (BP 89/67, HR 118), admitted to ICU for GI bleed. On blood work, plts were 67, given 1 unit FFP and 1 unit platelets overnight. Patient reports possible previous EGD/colonoscopy 10 years ago. Daughter at bedside also reports that his primary doctors were trying to do an EGD/colonoscopy recently, however it was delayed as patient is too high risk. This AM, patient reports no further bloody BMs, reports fatigue and weakness, HR 100s, BP 132/101, denies abdominal pain, nausea, vomiting. Hgb 8.3 (from 9.9 yesterday), plt 42. On protonix drip. 12-system ROS reviewed and negative, except as above. PMH: ADPKD s/p right renal allograft (transplanted in 2006, failed Jun 2018), ESRD on HD MWF, post-transplant DM2, HTN, severe with hx of prior AV replacement (not candidate for TAVR as of 2018), and unrepaired infrarenal AAA PSH: AVR, renal transplant (2006) Family History: Non-contributory at this time Social History: Former smoker; Denies any current tobacco, alcohol or illicit drug use PMD: Dr. Knox Review of Systems - Review of Systems All systems: reviewed and no additional remarkable complaints except Review of Systems: as per HPI Past Patient History - Infectious Disease Hx of Infectious Diseases: None - Past Medical History & Family History Past Medical History?: Yes - Past Social History Smoking Status: Former Smoker - CARDIAC Hx Cardiac Disorders: Yes (CAD, Aortic valve replacement.) Other/Comment: triple A - PULMONARY Hx Respiratory Disorders: No - NEUROLOGICAL Hx Neurological Disorder: No - HEENT Hx HEENT Problems: Yes (wears glasses) - RENAL Hx Chronic Kidney Disease: Yes (stage iv) Hx Dialysis: Yes (left arm fistula) - ENDOCRINE/METABOLIC Hx Diabetes Mellitus Type 2: Yes - HEMATOLOGICAL/ONCOLOGICAL Hx Anemia: Yes (iron deficiency) - INTEGUMENTARY Hx Dermatological Problems: Yes Other/Comment: multiple skin discolorations ble - MUSCULOSKELETAL/RHEUMATOLOGICAL Hx Falls: Yes Hx Unsteady Gait: Yes - GASTROINTESTINAL Hx Gastrointestinal Disorders: Yes (poor appetite weight loss) - GENITOURINARY/GYNECOLOGICAL Hx Genitourinary Disorders: Yes - PSYCHIATRIC Hx Psychophysiologic Disorder: No Hx Substance Use: No - SURGICAL HISTORY Hx Kidney Transplant: Yes (R kidney) - ANESTHESIA Hx Anesthesia: Yes Hx Anesthesia Reactions: No Hx Malignant Hyperthermia: No Meds Allergies/Adverse Reactions: Allergies Allergy/AdvReac Type Severity Reaction Status Date / Time No Known Allergies Allergy Verified 09/11/18 22:07 - Medications Medications: Current Medications Acetaminophen (Tylenol 325mg Tab) 650 mg PO Q4H PRN PRN Reason: temp > 99.5F Atorvastatin Calcium (Lipitor) 10 mg PO DIN [facility] Cyproheptadine HCl (Periactin) 4 mg PO BID [facility] Ezetimibe (Zetia) 10 mg PO DAILY [facility] Famotidine (Pepcid) 40 mg PO HS [facility] Last Admin: 09/14/18 21:58 Dose: 40 mg Pantoprazole Sodium (Protonix 40mg Ivpb) 40 mg in 100 mls @ 20 mls/hr IVPB .Q5H [facility] Last Admin: 09/15/18 06:00 Dose: 20 mls/hr Sodium Chloride (Sodium Chloride 0.9%) 500 mls @ 10 mls/hr IV .Q24H [facility] Last Admin: 09/14/18 17:18 Dose: 10 mls/hr Ceftriaxone Sodium (Rocephin 1 Gram Ivpb) 1 gm in 100 mls @ 100 mls/hr IVPB DAILY [facility]; Protocol Insulin Human Regular (Humulin R Low) 0 units SC ACHS [facility]; Protocol Last Admin: 09/14/18 21:59 Dose: Not Given Levalbuterol HCl (Xopenex) 0.63 mg IH TIDRESP [facility] Last Admin: 09/14/18 21:00 Dose: 0.63 mg Lidocaine (Lidoderm) 1 ea TD DAILY [facility] Morphine Sulfate (Morphine) 1 mg IVP Q8H PRN PRN Reason: Pain, severe (8-10) Prednisone (Prednisone Tab) 5 mg PO BRK [facility] Tacrolimus (Prograf Cap) 1 mg PO QAM [facility] Physical Exam - Constitutional Appears: Non-toxic, Cachectic, Chronically Ill - Head Exam Head Exam: ATRAUMATIC, NORMOCEPHALIC - Eye Exam Eye Exam: EOMI, PERRL. absent: Conjunctival injection, Nystagmus, Scleral icterus Pupil Exam: NORMAL ACCOMODATION, PERRL. absent: Irregular, Miosis, Unequal - ENT Exam ENT Exam: Mucous Membranes Dry - Neck Exam Neck exam: Positive for: Full Rom - Respiratory Exam Respiratory Exam: Clear to Auscultation Bilateral, NORMAL BREATHING PATTERN. absent: Accessory Muscle Use, Rhonchi, Wheezes - Cardiovascular Exam Cardiovascular Exam: RRR, +S1, +S2, Systolic Murmur - GI/Abdominal Exam GI & Abdominal Exam: Normal Bowel Sounds, Soft, Tenderness (mild). absent: Distended, Firm, Rebound, Rigid - Rectal Exam Rectal Exam: Black Stool. absent: Hemorrhoids, Fecal Impaction Additional comments: + black stool with mild bright red blood mixed. No hemorrhoids. Stool occult testing positive. - Extremities Exam Extremities exam: Positive for: normal inspection. Negative for: calf tenderness, pedal edema - Back Exam Back exam: NORMAL INSPECTION - Neurological Exam Neurological exam: Alert, Oriented x3 - Psychiatric Exam Psychiatric exam: Normal Affect, Normal Mood - Skin Skin Exam: Normal Color, Warm Results - Vital Signs Recent Vital Signs: Last Vital Signs Temp 98.2 F 09/14/18 15:44 Pulse 114 H 09/14/18 21:26 Resp 21 09/14/18 21:26 BP 116/88 09/14/18 21:26 Pulse Ox 97 09/14/18 21:26 - Labs Result Diagrams: 09/15/18 07:00 09/15/18 07:00 Labs: Laboratory Results - last 24 hr 09/14/18 09/14/18 09/14/18 16:30 16:30 16:30 WBC 9.0 RBC 4.88 Hgb 10.9 L Hct 38.0 L MCV 77.9 L MCH 22.3 L MCHC 28.7 L RDW 20.6 H Plt Count 67 L Neut % (Auto) 92.8 H Lymph % (Auto) 5.0 L [place] % (Auto) 2.2 Eos % (Auto) 0.0 L Baso % (Auto) 0.0 Lymph # (Auto) 0.5 L [place] # (Auto) 0.2 Eos # (Auto) 0.0 Baso # (Auto) 0.00 Absolute Neuts (auto) 8.37 H Neutrophils % (Manual) 89 H Lymphocytes % (Manual) 6 L Monocytes % (Manual) 5 Toxic Granulation 1+ Platelet Evaluation Low Hypochromasia 1+ Rouleaux 2+ PT 14.7 H INR 1.32 APTT 37.8 pO2 VBG pH VBG pCO2 VBG HCO3 VBG Total CO2 VBG O2 Sat (Calc) VBG Base Excess VBG Potassium Glucose Lactate FiO2 Crit Value Called To Crit Value Called By Blood Gas Notified Time Sodium 139 Potassium 4.0 Chloride 99 Carbon Dioxide 28 Anion Gap 16 BUN 48 H Creatinine 2.9 H Est GFR ( Amer) 27 Est GFR (Non-Af Amer) 22 Random Glucose 261 H Calcium 8.1 L Total Bilirubin 0.5 AST 45 ALT 13 Alkaline Phosphatase 172 H Ammonia Total Protein 6.3 Albumin 2.6 L Globulin 3.7 Albumin/Globulin Ratio 0.7 L Venous Blood Potassium Blood Type Antibody Screen BBK History Checked 09/14/18 09/14/18 09/15/18 16:32 16:44 00:10 WBC RBC Hgb Hct MCV MCH MCHC RDW Plt Count Neut % (Auto) Lymph % (Auto) [place] % (Auto) Eos % (Auto) Baso % (Auto) Lymph # (Auto) [place] # (Auto) Eos # (Auto) Baso # (Auto) Absolute Neuts (auto) Neutrophils % (Manual) Lymphocytes % (Manual) Monocytes % (Manual) Toxic Granulation Platelet Evaluation Hypochromasia Rouleaux PT INR APTT pO2 25 L 49 VBG pH 7.30 L 7.34 VBG pCO2 59.0 55.0 VBG HCO3 29.0 H 29.7 H VBG Total CO2 30.8 H 31.4 H VBG O2 Sat (Calc) 37.8 L 82.2 H VBG Base Excess 1.2 2.6 H VBG Potassium 4.1 4.1 Glucose 265 H 281 H Lactate 3.8 H 2.9 H FiO2 21.0 21.0 Crit Value Called To leilani Huggins md government sales manager Crit Value Called By Barbara dill cadd instructor Parminderm Blood Gas Notified Time [id number] 33 Sodium 138.0 142.0 Potassium Chloride 100.0 104.0 Carbon Dioxide Anion Gap BUN Creatinine Est GFR ( Amer) Est GFR (Non-Af Amer) Random Glucose Calcium Total Bilirubin AST ALT Alkaline Phosphatase Ammonia Total Protein Albumin Globulin Albumin/Globulin Ratio Venous Blood Potassium 4.1 4.1 Blood Type O POSITIVE Antibody Screen Negative BBK History Checked Patient has bt 09/15/18 09/15/18 00:10 00:10 WBC RBC Hgb 9.9 L Hct 34.9 L MCV MCH MCHC RDW Plt Count Neut % (Auto) Lymph % (Auto) [place] % (Auto) Eos % (Auto) Baso % (Auto) Lymph # (Auto) [place] # (Auto) Eos # (Auto) Baso # (Auto) Absolute Neuts (auto) Neutrophils % (Manual) Lymphocytes % (Manual) Monocytes % (Manual) Toxic Granulation Platelet Evaluation Hypochromasia Rouleaux PT INR APTT pO2 VBG pH VBG pCO2 VBG HCO3 VBG Total CO2 VBG O2 Sat (Calc) VBG Base Excess VBG Potassium Glucose Lactate FiO2 Crit Value Called To Crit Value Called By Blood Gas Notified Time Sodium Potassium Chloride Carbon Dioxide Anion Gap BUN Creatinine Est GFR ( Amer) Est GFR (Non-Af Amer) Random Glucose Calcium Total Bilirubin AST ALT Alkaline Phosphatase Ammonia < 9 L Total Protein Albumin Globulin Albumin/Globulin Ratio Venous Blood Potassium Blood Type Antibody Screen BBK History Checked Assessment & Plan - Assessment and Plan (Free Text) Assessment: # GI bleed, likely upper, r/o aorto-GI fistula # Microcytic anemia # Thrombocytopenia # Klebsiella Bacteremia 2/2 UTI # Polycystic Kidney disease s/p right renal allograft # ESRD on HD MWF # HTN # Severe Aortic Stenosis with hx of prior AV replacement (not candidate for TAVR as of 2018) # unrepaired infrarenal AAA - Recommend EGD in setting of melena (seen on rectal exam). However, patient is a high risk candidate due to underlying cardiac conditions. Would benefit from Cardiology evaluation, communicated to primary team, regarding clearance. Spoke with daughter, Mariangel Goodwin, who is the POA, and patient. Risks and benefits of procedures were explained to the patient. - CT abd pelvis w/o contrast: extensive diverticulosis. abdominal/pelvic ascites. No free air. Heterogenous appearance of liver with innumerable hypodensities, possibly tiny cysts or hemangiomas. Ill denied hypodense region within hepatic dome spanning 16 x 10 mm. - continue with protonix drip, IVF - s/p 1 unit FFP, platelets yesterday - Plts 42 this AM, will give 1 unit platelets - Hgb 8.3 this AM, agree with transfusion of 1 unit prbcs. Will keep 2 units prbcs on hold for possible EGD today, communicated with blood bank. - bleeding scan negative - angio of abd with contrast negative for any aortic fistula - c/w abx for bacteremia - further recs per Dr Cordova. Case seen and discussed with Dr Cordova. <Mac Cordova V - Last Filed: 09/15/18 23:39> Meds - Medications Medications: Current Medications Acetaminophen (Tylenol 325mg Tab) 650 mg PO Q4H PRN PRN Reason: temp > 99.5F Acetaminophen (Tylenol 325mg Tab) 650 mg PO Q6 PRN PRN Reason: TEMP>=99.5F Acetaminophen (Tylenol 650 Mg Supp) 650 mg RC Q6H PRN PRN Reason: TEMP>=99.5F Atorvastatin Calcium (Lipitor) 10 mg PO DIN [facility] Cyproheptadine HCl (Periactin) 4 mg PO BID [facility] Ezetimibe (Zetia) 10 mg PO DAILY [facility] Famotidine (Pepcid) 40 mg PO HS [facility] Last Admin: 09/15/18 22:54 Dose: 40 mg Pantoprazole Sodium (Protonix 40mg Ivpb) 40 mg in 100 mls @ 20 mls/hr IVPB .Q5H [facility] Last Admin: 09/15/18 23:01 Dose: 20 mls/hr Sodium Chloride (Sodium Chloride 0.9%) 500 mls @ 10 mls/hr IV .Q24H [facility] Last Admin: 09/14/18 17:18 Dose: 10 mls/hr Ceftriaxone Sodium (Rocephin 1 Gram Ivpb) 1 gm in 100 mls @ 100 mls/hr IVPB DAILY [facility]; Protocol Insulin Human Regular (Humulin R Low) 0 units SC ACHS [facility]; Protocol Last Admin: 09/15/18 22:57 Dose: Not Given Levalbuterol HCl (Xopenex) 0.63 mg IH K2CPLIA [facility] Last Admin: 09/15/18 19:31 Dose: 0.63 mg Lidocaine (Lidoderm) 1 ea TD DAILY [facility] Morphine Sulfate (Morphine) 1 mg IVP Q8H PRN PRN Reason: Pain, severe (8-10) Ondansetron HCl (Zofran Inj) 4 mg IVP Q4H PRN PRN Reason: Nausea/Vomiting Prednisone (Prednisone Tab) 5 mg PO BRK [facility] Last Admin: 09/15/18 08:05 Dose: Not Given Results - Vital Signs Recent Vital Signs: Last Vital Signs Temp 98.3 F 09/15/18 12:00 Pulse 82 09/15/18 20:09 Resp 22 09/15/18 20:09 BP 126/89 09/15/18 22:59 Pulse Ox 97 09/14/18 21:26 - Labs Result Diagrams: 09/15/18 07:00 09/15/18 07:00 Labs: Laboratory Results - last 24 hr 09/14/18 09/15/18 09/15/18 16:32 00:10 00:10 WBC RBC Hgb Hct MCV MCH MCHC RDW Plt Count Neut % (Auto) Lymph % (Auto) [place] % (Auto) Eos % (Auto) Baso % (Auto) Lymph # (Auto) [place] # (Auto) Eos # (Auto) Baso # (Auto) Absolute Neuts (auto) Platelet Evaluation pO2 49 VBG pH 7.34 VBG pCO2 55.0 VBG HCO3 29.7 H VBG Total CO2 31.4 H VBG O2 Sat (Calc) 82.2 H VBG Base Excess 2.6 H VBG Potassium 4.1 Sodium 142.0 Chloride 104.0 Glucose 281 H Lactate 2.9 H FiO2 21.0 Crit Value Called To Gary craig government sales manager Crit Value Called By Soraida Blood Gas Notified Time 33 Potassium Carbon Dioxide Anion Gap BUN Creatinine Est GFR ( Amer) Est GFR (Non-Af Amer) POC Glucose (mg/dL) Random Glucose Calcium Phosphorus Magnesium Total Bilirubin AST ALT Alkaline Phosphatase Ammonia < 9 L Total Protein Albumin Globulin Albumin/Globulin Ratio Venous Blood Potassium 4.1 Urine Color Urine Appearance Urine pH Ur Specific [place] Urine Protein Urine Glucose (UA) Urine Ketones Urine Blood Urine Nitrate Urine Bilirubin Urine Urobilinogen Ur Leukocyte Esterase Urine RBC Urine WBC Ur Epithelial Cells Blood Type O POSITIVE Antibody Screen Negative Crossmatch See Detail BBK History Checked Patient has bt 09/15/18 09/15/18 09/15/18 00:10 07:00 07:00 WBC 8.5 RBC 3.74 Hgb 9.9 L 8.3 L Hct 34.9 L 28.9 L MCV 77.3 L MCH 22.2 L MCHC 28.7 L RDW 20.7 H Plt Count 42 L* Neut % (Auto) 85.6 H Lymph % (Auto) 9.7 L [place] % (Auto) 4.6 Eos % (Auto) 0.1 L Baso % (Auto) 0.0 Lymph # (Auto) 0.8 L [place] # (Auto) 0.4 Eos # (Auto) 0.0 Baso # (Auto) 0.00 Absolute Neuts (auto) 7.25 H Platelet Evaluation Low pO2 VBG pH VBG pCO2 VBG HCO3 VBG Total CO2 VBG O2 Sat (Calc) VBG Base Excess VBG Potassium Sodium 140 Chloride 101 Glucose Lactate FiO2 Crit Value Called To Crit Value Called By Blood Gas Notified Time Potassium 3.8 Carbon Dioxide 27 Anion Gap 16 BUN 53 H Creatinine 2.9 H Est GFR ( Amer) 27 Est GFR (Non-Af Amer) 22 POC Glucose (mg/dL) Random Glucose 222 H Calcium 7.9 L Phosphorus 4.2 Magnesium 2.0 Total Bilirubin 0.4 AST 25 ALT 21 Alkaline Phosphatase 123 Ammonia Total Protein 5.4 L Albumin 2.3 L Globulin 3.1 Albumin/Globulin Ratio 0.8 L Venous Blood Potassium Urine Color Urine Appearance Urine pH Ur Specific [place] Urine Protein Urine Glucose (UA) Urine Ketones Urine Blood Urine Nitrate Urine Bilirubin Urine Urobilinogen Ur Leukocyte Esterase Urine RBC Urine WBC Ur Epithelial Cells Blood Type Antibody Screen Crossmatch BBK History Checked 09/15/18 09/15/18 13:20 17:15 WBC RBC Hgb Hct MCV MCH MCHC RDW Plt Count Neut % (Auto) Lymph % (Auto) [place] % (Auto) Eos % (Auto) Baso % (Auto) Lymph # (Auto) [place] # (Auto) Eos # (Auto) Baso # (Auto) Absolute Neuts (auto) Platelet Evaluation pO2 VBG pH VBG pCO2 VBG HCO3 VBG Total CO2 VBG O2 Sat (Calc) VBG Base Excess VBG Potassium Sodium Chloride Glucose Lactate FiO2 Crit Value Called To Crit Value Called By Blood Gas Notified Time Potassium Carbon Dioxide Anion Gap BUN Creatinine Est GFR ( Amer) Est GFR (Non-Af Amer) POC Glucose (mg/dL) 232 H Random Glucose Calcium Phosphorus Magnesium Total Bilirubin AST ALT Alkaline Phosphatase Ammonia Total Protein Albumin Globulin Albumin/Globulin Ratio Venous Blood Potassium Urine Color Yellow Urine Appearance Clear Urine pH 6.5 Ur Specific [place] 1.020 Urine Protein 100 H Urine Glucose (UA) 250 H Urine Ketones Negative Urine Blood Negative Urine Nitrate Negative Urine Bilirubin Negative Urine Urobilinogen 0.2 Ur Leukocyte Esterase Trace H Urine RBC TEST NOT PERFORMED Urine WBC 2 - 5 Ur Epithelial Cells 6 - 8 H Blood Type Antibody Screen Crossmatch BBK History Checked Attending/Attestation - Attestation I have personally seen and examined this patient.: Yes I have fully participated in the care of the patient.: Yes I have reviewed all pertinent clinical information: Yes Notes (Text): This patient was seen and evaluated along with the resident team earlier. This is an addendum to the GI consultation report dictated by the resident.. Thrombocytopenia give 1 unit of single donor platelets patient did not receive FFP. Patient does have a large abdominal aortic aneurysm had endoscopy done before at the [facility]. Follow-up of the hemoglobin hematocrit wE will defer colonoscopy in view of the very large abdominal aortic aneurysm The patient had poor IV access PICC line could not be inserted. Patient has poor IV access plan. PICC line could not be inserted Patient is awaiting for the triple lumen central line catheter placement patient will evaluated again im am reg EGD 09/15/18 23:25
[2018-09-15 07:25] LABS: EOS % 0.1 % (1.5-5.0); HEMOGLOBIN 8.3 g/dL (14.0-18.0); LYMPH # 0.8 (1.2-3.4); LYMPH % 9.7 % (22.0-35.0); MEAN CELL VOLUME 77.3 fl (80.0-105.0); MEAN CORPUSCULAR HEMOGLOBIN 22.2 pg (25.0-35.0); MEAN CORPUSCULAR HGB CONC 28.7 g/dl (31.0-37.0); MONO # 0.4 (0.1-0.6); MONO % 4.6 % (1.0-6.0); RBC 3.74 10^6/uL (3.5-6.1); RED CELL DISTRIBUTION WIDTH 20.7 % (11.5-14.5); WHITE BLOOD COUNT 8.5 10^3/uL (4.5-11.0)
[2018-09-15 07:38] LABS: PLATELET COUNT 42 10^3/uL (120.0-450.0)
[2018-09-15 07:39] LABS: ALB/GLOB RATIO 0.8 (1.1-1.8); ALBUMIN 2.3 g/dL (3.0-4.8); CALCIUM 7.9 mg/dL (8.4-10.5)
--- NOTE | 2018-09-15 07:39 | CP.PCM.CON ---
<Bradley Davalos - Last Filed: 09/15/18 12:57> History of Present Illness - History of Present Illness History of Present Illness: Nephro Consult Note for Dr. Wheeler's Service Bradley Davalos DO, PGY-3 Consulted for: ESRD on HD MWF This is a 67 yo M with extensive PMH, including ADPKD s/p right renal allograft (transplanted in 2006, failed Jun 2018), ESRD on HD MWF, post-transplant DM2, HTN, severe with hx of prior AV replacement (not candidate for TAVR as of 2018), and unrepaired infrarenal AAA who was initially admitted for lethargy/persistent diarrhea and treated for klebsiella bacteremia 2/ to UTI. While in the TCU undergoing rehab, he was found to have a large bloody BM with clots with concurrent hypotension/tachycardia (BP 89/67, HR 118), so he was transferred back to the ED, and was admitted to the ICU for close monitoring and further management of suspected acute GI bleed. BP did improve to 110/79 while in the ED, but patient remained tachycardic. Hgb remained at baseline, but pt was transfused 1 unit of platelets and 1 unit FFP as per overnight team. This AM, patient is resting in bed comfortably in the ICU. Knows who he is and where he is, oriented to month, but confused on day of week. Denies any acute complaints at time of exam, including chest pain, shortness of breath, palpitations, nausea, emesis, fevers, or chills. Denies any new bloody BMs, but also admits he didn't notice the initial bloody BM until nursing told him. Denies any dizziness, lightheadedness, room-spinning sensation, or syncope/near- syncope. Pending HD today. Remains on rocephin for UTI tx and protonix drip for suspected GI bleed. 12-system ROS reviewed and negative, except as above. PMH: as above PSH: AVR, renal transplant (2006) Family History: Non-contributory at this time Social History: Former smoker; Denies any current tobacco, alcohol or illicit drug use PMD: Dr. Knox Review of Systems - Review of Systems All systems: reviewed and no additional remarkable complaints except (as per HPI) Past Patient History - Infectious Disease Hx of Infectious Diseases: None - Past Medical History & Family History Past Medical History?: Yes - Past Social History Smoking Status: Former Smoker - CARDIAC Hx Cardiac Disorders: Yes (CAD, Aortic valve replacement.) Other/Comment: triple A - PULMONARY Hx Respiratory Disorders: No - NEUROLOGICAL Hx Neurological Disorder: No - HEENT Hx HEENT Problems: Yes (wears glasses) - RENAL Hx Chronic Kidney Disease: Yes (stage iv) Hx Dialysis: Yes (left arm fistula) - ENDOCRINE/METABOLIC Hx Diabetes Mellitus Type 2: Yes - HEMATOLOGICAL/ONCOLOGICAL Hx Anemia: Yes (iron deficiency) - INTEGUMENTARY Hx Dermatological Problems: Yes Other/Comment: multiple skin discolorations ble - MUSCULOSKELETAL/RHEUMATOLOGICAL Hx Falls: Yes Hx Unsteady Gait: Yes - GASTROINTESTINAL Hx Gastrointestinal Disorders: Yes (poor appetite weight loss) - GENITOURINARY/GYNECOLOGICAL Hx Genitourinary Disorders: Yes - PSYCHIATRIC Hx Psychophysiologic Disorder: No Hx Substance Use: No - SURGICAL HISTORY Hx Kidney Transplant: Yes (R kidney) - ANESTHESIA Hx Anesthesia: Yes Hx Anesthesia Reactions: No Hx Malignant Hyperthermia: No Meds Allergies/Adverse Reactions: Allergies Allergy/AdvReac Type Severity Reaction Status Date / Time No Known Allergies Allergy Verified 09/11/18 22:07 - Medications Medications: Current Medications Acetaminophen (Tylenol 325mg Tab) 650 mg PO Q4H PRN PRN Reason: temp > 99.5F Atorvastatin Calcium (Lipitor) 10 mg PO DIN [facility] Cyproheptadine HCl (Periactin) 4 mg PO BID [facility] Ezetimibe (Zetia) 10 mg PO DAILY [facility] Famotidine (Pepcid) 40 mg PO HS [facility] Last Admin: 09/14/18 21:58 Dose: 40 mg Pantoprazole Sodium (Protonix 40mg Ivpb) 40 mg in 100 mls @ 20 mls/hr IVPB .Q5H [facility] Last Admin: 09/15/18 06:00 Dose: 20 mls/hr Sodium Chloride (Sodium Chloride 0.9%) 500 mls @ 10 mls/hr IV .Q24H [facility] Last Admin: 09/14/18 17:18 Dose: 10 mls/hr Ceftriaxone Sodium (Rocephin 1 Gram Ivpb) 1 gm in 100 mls @ 100 mls/hr IVPB DAILY [facility]; Protocol Insulin Human Regular (Humulin R Low) 0 units SC ACHS [facility]; Protocol Last Admin: 09/14/18 21:59 Dose: Not Given Levalbuterol HCl (Xopenex) 0.63 mg IH TIDRESP [facility] Last Admin: 09/14/18 21:00 Dose: 0.63 mg Lidocaine (Lidoderm) 1 ea TD DAILY [facility] Morphine Sulfate (Morphine) 1 mg IVP Q8H PRN PRN Reason: Pain, severe (8-10) Prednisone (Prednisone Tab) 5 mg PO BRK [facility] Tacrolimus (Prograf Cap) 1 mg PO QAM [facility] Physical Exam - Constitutional Appears: No Acute Distress, Cachectic, Chronically Ill - Head Exam Head Exam: ATRAUMATIC, NORMAL INSPECTION, NORMOCEPHALIC - Eye Exam Eye Exam: EOMI, Normal appearance. absent: Conjunctival injection, Scleral icterus - ENT Exam ENT Exam: Mucous Membranes Moist - Neck Exam Neck exam: Positive for: Full Rom. Negative for: Tenderness - Respiratory Exam Respiratory Exam: Clear to Auscultation Bilateral, NORMAL BREATHING PATTERN. absent: Accessory Muscle Use, Chest Wall Tenderness, Decreased Breath Sounds, Rales, Rhonchi, Wheezes - Cardiovascular Exam Cardiovascular Exam: Tachycardia, REGULAR RHYTHM, +S1, +S2. absent: JVD - GI/Abdominal Exam GI & Abdominal Exam: Normal Bowel Sounds, Pulsatile Mass (midline lower abdomen and left-lateral of midline), Soft. absent: Distended, Firm, Guarding, Rigid, Tenderness - Extremities Exam Additional comments: cachetic extremities, some bruising along RUE due to multiple attempts to gain access/draw blood No gross deformities appreciated - Back Exam Back exam: absent: CVA tenderness (L), CVA tenderness (R) - Neurological Exam Additional comments: awake and alert, oriented grossly to time (knows month, confused about day of the week), self, and location follows commands appropriately moving all extremities spontaneously and on command - Psychiatric Exam Psychiatric exam: Normal Affect, Normal Mood - Skin Skin Exam: Dry, Normal Color, Warm Results - Vital Signs Recent Vital Signs: Last Vital Signs Temp 98.2 F 09/14/18 15:44 Pulse 100 H 09/15/18 06:48 Resp 20 09/15/18 06:48 BP 132/101 H 09/15/18 06:00 Pulse Ox 97 09/14/18 21:26 - Labs Result Diagrams: 09/15/18 07:00 09/15/18 07:00 Labs: Laboratory Results - last 24 hr 09/14/18 09/14/18 09/14/18 16:30 16:30 16:30 WBC 9.0 RBC 4.88 Hgb 10.9 L Hct 38.0 L MCV 77.9 L MCH 22.3 L MCHC 28.7 L RDW 20.6 H Plt Count 67 L Neut % (Auto) 92.8 H Lymph % (Auto) 5.0 L [place] % (Auto) 2.2 Eos % (Auto) 0.0 L Baso % (Auto) 0.0 Lymph # (Auto) 0.5 L [place] # (Auto) 0.2 Eos # (Auto) 0.0 Baso # (Auto) 0.00 Absolute Neuts (auto) 8.37 H Neutrophils % (Manual) 89 H Lymphocytes % (Manual) 6 L Monocytes % (Manual) 5 Toxic Granulation 1+ Platelet Evaluation Low Hypochromasia 1+ Rouleaux 2+ PT 14.7 H INR 1.32 APTT 37.8 pO2 VBG pH VBG pCO2 VBG HCO3 VBG Total CO2 VBG O2 Sat (Calc) VBG Base Excess VBG Potassium Glucose Lactate FiO2 Crit Value Called To Crit Value Called By Blood Gas Notified Time Sodium 139 Potassium 4.0 Chloride 99 Carbon Dioxide 28 Anion Gap 16 BUN 48 H Creatinine 2.9 H Est GFR ( Amer) 27 Est GFR (Non-Af Amer) 22 Random Glucose 261 H Calcium 8.1 L Total Bilirubin 0.5 AST 45 ALT 13 Alkaline Phosphatase 172 H Ammonia Total Protein 6.3 Albumin 2.6 L Globulin 3.7 Albumin/Globulin Ratio 0.7 L Venous Blood Potassium Blood Type Antibody Screen BBK History Checked 09/14/18 09/14/18 09/15/18 16:32 16:44 00:10 WBC RBC Hgb Hct MCV MCH MCHC RDW Plt Count Neut % (Auto) Lymph % (Auto) [place] % (Auto) Eos % (Auto) Baso % (Auto) Lymph # (Auto) [place] # (Auto) Eos # (Auto) Baso # (Auto) Absolute Neuts (auto) Neutrophils % (Manual) Lymphocytes % (Manual) Monocytes % (Manual) Toxic Granulation Platelet Evaluation Hypochromasia Rouleaux PT INR APTT pO2 25 L 49 VBG pH 7.30 L 7.34 VBG pCO2 59.0 55.0 VBG HCO3 29.0 H 29.7 H VBG Total CO2 30.8 H 31.4 H VBG O2 Sat (Calc) 37.8 L 82.2 H VBG Base Excess 1.2 2.6 H VBG Potassium 4.1 4.1 Glucose 265 H 281 H Lactate 3.8 H 2.9 H FiO2 21.0 21.0 Crit Value Called To leilani Huggins md learning analyst Crit Value Called By Barbara dill data integrity specialist Jsm Blood Gas Notified Time [id number] 33 Sodium 138.0 142.0 Potassium Chloride 100.0 104.0 Carbon Dioxide Anion Gap BUN Creatinine Est GFR ( Amer) Est GFR (Non-Af Amer) Random Glucose Calcium Total Bilirubin AST ALT Alkaline Phosphatase Ammonia Total Protein Albumin Globulin Albumin/Globulin Ratio Venous Blood Potassium 4.1 4.1 Blood Type O POSITIVE Antibody Screen Negative BBK History Checked Patient has bt 09/15/18 09/15/18 00:10 00:10 WBC RBC Hgb 9.9 L Hct 34.9 L MCV MCH MCHC RDW Plt Count Neut % (Auto) Lymph % (Auto) [place] % (Auto) Eos % (Auto) Baso % (Auto) Lymph # (Auto) [place] # (Auto) Eos # (Auto) Baso # (Auto) Absolute Neuts (auto) Neutrophils % (Manual) Lymphocytes % (Manual) Monocytes % (Manual) Toxic Granulation Platelet Evaluation Hypochromasia Rouleaux PT INR APTT pO2 VBG pH VBG pCO2 VBG HCO3 VBG Total CO2 VBG O2 Sat (Calc) VBG Base Excess VBG Potassium Glucose Lactate FiO2 Crit Value Called To Crit Value Called By Blood Gas Notified Time Sodium Potassium Chloride Carbon Dioxide Anion Gap BUN Creatinine Est GFR ( Amer) Est GFR (Non-Af Amer) Random Glucose Calcium Total Bilirubin AST ALT Alkaline Phosphatase Ammonia < 9 L Total Protein Albumin Globulin Albumin/Globulin Ratio Venous Blood Potassium Blood Type Antibody Screen BBK History Checked Assessment & Plan - Assessment and Plan (Free Text) Assessment: his is a 67 yo M with extensive PMH, including ADPKD s/p right renal allograft (transplanted in 2006, failed Jun 2018), ESRD on HD MWF, post-transplant DM2, HTN, severe with hx of prior AV replacement (not candidate for TAVR as of 2018), and unrepaired infrarenal AAA who was initially admitted for klebsiella bacteremia 2/2 UTI, now re-admitted and transferred to ICU due to acute GI bleed. Nephro consulted for ESRD on HD MWF, and for management of failed renal allograft on immunosuppresant tx. Plan: 1) ESRD on HD (MWF) 2) 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, failed 2018), remains on immunosuppresion 3) Acute GI bleed 4) Thrombocytopenia, concern for DIC 5) Unrepaired Infra-renal AAA 6) Anemia 2/2 ESRD 7) Klebsiella bacteremia 8) Failure to thrive -HD schedule MWF, pending HD today -Further episodes of bloody BMs since this AM, Hgb decreased to 8.3. Hemodynamically stable and Hgb > 7, but prefer to have transfusions with HD due to difficulty removing fluid in this patient, so will transfuse 1 unit with HD today preemptively Received 1 unit FFP and 1 unit platelets overnight Pending bleeding scan and abd angiogram (r/o aorto-GI fisutla) -Plt worsening, 42 this AM (67 yesterday), despite 1 unit transfusion overnight May be 2/2 immunosuppresion vs protonix vs sepsis, appreciate Heme-onc's input -Was on Tacrolimus 1mg daily and Prednisone 5mg daily for immunosuppresive regimen, but tacrolimus currently on hold -Failure to thrive likely 2/2 multiple comorbid conditions, pending PT/OT eval -Pending GI, Cardio, and Surgery recs As per GI, pending possible colonoscopy today Seen, reviewed, and discussed with attending, Dr. Wheeler <Dandy Wheeler - Last Filed: 09/16/18 06:55> Meds - Medications Medications: Current Medications Acetaminophen (Tylenol 325mg Tab) 650 mg PO Q4H PRN PRN Reason: temp > 99.5F Acetaminophen (Tylenol 325mg Tab) 650 mg PO Q6 PRN PRN Reason: TEMP>=99.5F Acetaminophen (Tylenol 650 Mg Supp) 650 mg RC Q6H PRN PRN Reason: TEMP>=99.5F Atorvastatin Calcium (Lipitor) 10 mg PO DIN [facility] Cyproheptadine HCl (Periactin) 4 mg PO BID [facility] Ezetimibe (Zetia) 10 mg PO DAILY [facility] Famotidine (Pepcid) 40 mg PO HS [facility] Last Admin: 09/15/18 22:54 Dose: 40 mg Pantoprazole Sodium (Protonix 40mg Ivpb) 40 mg in 100 mls @ 20 mls/hr IVPB .Q5H [facility] Last Admin: 09/16/18 04:50 Dose: Not Given Sodium Chloride (Sodium Chloride 0.9%) 500 mls @ 10 mls/hr IV .Q24H [facility] Last Admin: 09/14/18 17:18 Dose: 10 mls/hr Ceftriaxone Sodium (Rocephin 1 Gram Ivpb) 1 gm in 100 mls @ 100 mls/hr IVPB DAILY [facility]; Protocol Insulin Human Regular (Humulin R Low) 0 units SC ACHS [facility]; Protocol Last Admin: 09/15/18 22:57 Dose: Not Given Levalbuterol HCl (Xopenex) 0.63 mg IH [id number] [facility] Last Admin: 09/16/18 02:51 Dose: 0.63 mg Lidocaine (Lidoderm) 1 ea TD DAILY [facility] Morphine Sulfate (Morphine) 1 mg IVP Q8H PRN PRN Reason: Pain, severe (8-10) Ondansetron HCl (Zofran Inj) 4 mg IVP Q4H PRN PRN Reason: Nausea/Vomiting Prednisone (Prednisone Tab) 5 mg PO BRK [facility] Last Admin: 09/15/18 08:05 Dose: Not Given Results - Vital Signs Recent Vital Signs: Last Vital Signs Temp 97.8 F 09/16/18 04:32 Pulse 108 H 09/16/18 04:32 Resp 23 09/16/18 04:32 BP 148/91 H 09/16/18 04:32 Pulse Ox 97 09/14/18 21:26 - Labs Result Diagrams: 09/15/18 07:00 09/15/18 07:00 Labs: Laboratory Results - last 24 hr 09/14/18 09/15/18 09/15/18 16:32 07:00 07:00 WBC 8.5 RBC 3.74 Hgb 8.3 L Hct 28.9 L MCV 77.3 L MCH 22.2 L MCHC 28.7 L RDW 20.7 H Plt Count 42 L* Neut % (Auto) 85.6 H Lymph % (Auto) 9.7 L [place] % (Auto) 4.6 Eos % (Auto) 0.1 L Baso % (Auto) 0.0 Lymph # (Auto) 0.8 L [place] # (Auto) 0.4 Eos # (Auto) 0.0 Baso # (Auto) 0.00 Absolute Neuts (auto) 7.25 H Platelet Evaluation Low PT INR APTT Sodium 140 Potassium 3.8 Chloride 101 Carbon Dioxide 27 Anion Gap 16 BUN 53 H Creatinine 2.9 H Est GFR ( Amer) 27 Est GFR (Non-Af Amer) 22 POC Glucose (mg/dL) Random Glucose 222 H Calcium 7.9 L Phosphorus 4.2 Magnesium 2.0 Total Bilirubin 0.4 AST 25 ALT 21 Alkaline Phosphatase 123 Troponin I Total Protein 5.4 L Albumin 2.3 L Globulin 3.1 Albumin/Globulin Ratio 0.8 L Urine Color Urine Appearance Urine pH Ur Specific [place] Urine Protein Urine Glucose (UA) Urine Ketones Urine Blood Urine Nitrate Urine Bilirubin Urine Urobilinogen Ur Leukocyte Esterase Urine RBC Urine WBC Ur Epithelial Cells Blood Type O POSITIVE Antibody Screen Negative Crossmatch See Detail BBK History Checked Patient has bt 09/15/18 09/15/18 09/15/18 07:00 13:20 17:15 WBC RBC Hgb Hct MCV MCH MCHC RDW Plt Count Neut % (Auto) Lymph % (Auto) [place] % (Auto) Eos % (Auto) Baso % (Auto) Lymph # (Auto) [place] # (Auto) Eos # (Auto) Baso # (Auto) Absolute Neuts (auto) Platelet Evaluation PT INR APTT Sodium Potassium Chloride Carbon Dioxide Anion Gap BUN Creatinine Est GFR ( Amer) Est GFR (Non-Af Amer) POC Glucose (mg/dL) 232 H Random Glucose Calcium Phosphorus Magnesium Total Bilirubin AST ALT Alkaline Phosphatase Troponin I 0.02 D Total Protein Albumin Globulin Albumin/Globulin Ratio Urine Color Yellow Urine Appearance Clear Urine pH 6.5 Ur Specific [place] 1.020 Urine Protein 100 H Urine Glucose (UA) 250 H Urine Ketones Negative Urine Blood Negative Urine Nitrate Negative Urine Bilirubin Negative Urine Urobilinogen 0.2 Ur Leukocyte Esterase Trace H Urine RBC TEST NOT PERFORMED Urine WBC 2 - 5 Ur Epithelial Cells 6 - 8 H Blood Type Antibody Screen Crossmatch BBK History Checked 09/16/18 05:50 WBC RBC Hgb Hct MCV MCH MCHC RDW Plt Count Neut % (Auto) Lymph % (Auto) [place] % (Auto) Eos % (Auto) Baso % (Auto) Lymph # (Auto) [place] # (Auto) Eos # (Auto) Baso # (Auto) Absolute Neuts (auto) Platelet Evaluation PT 15.1 H INR 1.34 APTT 34.2 Sodium Potassium Chloride Carbon Dioxide Anion Gap BUN Creatinine Est GFR ( Amer) Est GFR (Non-Af Amer) POC Glucose (mg/dL) Random Glucose Calcium Phosphorus Magnesium Total Bilirubin AST ALT Alkaline Phosphatase Troponin I Total Protein Albumin Globulin Albumin/Globulin Ratio Urine Color Urine Appearance Urine pH Ur Specific [place] Urine Protein Urine Glucose (UA) Urine Ketones Urine Blood Urine Nitrate Urine Bilirubin Urine Urobilinogen Ur Leukocyte Esterase Urine RBC Urine WBC Ur Epithelial Cells Blood Type Antibody Screen Crossmatch BBK History Checked Attending/Attestation - Attestation I have personally seen and examined this patient.: Yes I have fully participated in the care of the patient.: Yes I have reviewed all pertinent clinical information: Yes Notes (Text): Patient seen and examined; I agree with the residents note as above with the following additions/edits: 67 yo M w/ pmh of htn, post-transplant DM, ADPKD s/p renal allograft (2006, failed in Feb 2018), unrepaired large AAA, s/p bioprosthetic AVR, and ESRD on HD ([facility], at [facility] under our outpatient service), sent to ED from TCU after bloody BM, subsequently admitted to ICU, nephrology being consulted for ESRD care; Patient initially admitted late last month for severe sepsis secondary to Kleb pneumo UTI; noted also to have failure to thrive which has been ongoing for many months with hypoalbuminemia worsened lately; patient treated with ceftriaxone with overall clinical improvement and transferred to TCU; however, continued to have low/normal BP and with orthostatic changes seen; BP meds had already been reduced to just low dose metoprolol which was also subsequently discontinued (on clonidine prior to admission); In light of severe sepsis and thrombocytopenia/possible DIC, decision was made to taper off remaining immunosuppression med tacrolimus (was initially maintained in order to preserve residual renal function which was significant); given worsening thrombocytopenia and now GI bleed, we will stop tacrolimus altogether; Anemia of CKD, was being maintained on high doses of long acting EPO with hgb recently at goal (10-11g); hgb now trending downward; agree with primary team to give 1 u of prbc (preferably on HD so that we can remove the added volume at the same time); HD had been continued throughout recent admission and TCU stay, however, patient unable to tolerate any significant UF (only about 250 cc removed on Saturday, which was patients last HD treatment); due for HD today but having to put off till tomorrow due to logistical issues (was having multiple tests throughout the day); currently with stable volume and electrolyte status; no urgent indication for HD for now; night team instructed to inform us if any signs of volume overload; Thank you for this referral, we will be following closely; Critical care time spent > 35 minutes.
--- NOTE | 2018-09-15 07:43 | CP.PCM.PN ---
Subjective - Date & Time of Evaluation Date of Evaluation: 09/15/18 Time of Evaluation: 07:43 - Subjective Subjective: Patric Hartley IM Progress Note for Dr. Knox Patient was seen and examined at bedside in ICU. Per nursing staff, overnight the patient had another maroon colored BM. H/H and platelets are trending down in this patient as noted on this morning labs, Heme/Onc is following. GI is evaluating today for the GI bleed, and bleeding scan is pending. Objective - Vital Signs/Intake and Output Vital Signs (last 24 hours): Temp Pulse Resp BP Pulse Ox 98.2 F 100 H 20 132/101 H 97 09/14/18 15:44 09/15/18 06:48 09/15/18 06:48 09/15/18 06:00 09/14/18 21:26 - Medications Medications: Current Medications Acetaminophen (Tylenol 325mg Tab) 650 mg PO Q4H PRN PRN Reason: temp > 99.5F Atorvastatin Calcium (Lipitor) 10 mg PO DIN [facility] Cyproheptadine HCl (Periactin) 4 mg PO BID [facility] Ezetimibe (Zetia) 10 mg PO DAILY [facility] Famotidine (Pepcid) 40 mg PO HS [facility] Last Admin: 09/14/18 21:58 Dose: 40 mg Pantoprazole Sodium (Protonix 40mg Ivpb) 40 mg in 100 mls @ 20 mls/hr IVPB .Q5H [facility] Last Admin: 09/15/18 06:00 Dose: 20 mls/hr Sodium Chloride (Sodium Chloride 0.9%) 500 mls @ 10 mls/hr IV .Q24H [facility] Last Admin: 09/14/18 17:18 Dose: 10 mls/hr Ceftriaxone Sodium (Rocephin 1 Gram Ivpb) 1 gm in 100 mls @ 100 mls/hr IVPB DAILY [facility]; Protocol Insulin Human Regular (Humulin R Low) 0 units SC ACHS [facility]; Protocol Last Admin: 09/14/18 21:59 Dose: Not Given Levalbuterol HCl (Xopenex) 0.63 mg IH TIDRESP [facility] Last Admin: 09/14/18 21:00 Dose: 0.63 mg Lidocaine (Lidoderm) 1 ea TD DAILY [facility] Morphine Sulfate (Morphine) 1 mg IVP Q8H PRN PRN Reason: Pain, severe (8-10) Prednisone (Prednisone Tab) 5 mg PO BRK [facility] Tacrolimus (Prograf Cap) 1 mg PO QAM [facility] - Labs Labs: 09/15/18 07:00 09/15/18 07:00 PT 14.7 SECONDS (9.4-12.5) H 09/14/18 16:30 INR 1.32 09/14/18 16:30 APTT 37.8 Seconds (26.9-38.3) 09/14/18 16:30 - Constitutional Appears: Non-toxic, No Acute Distress, Cachectic, Chronically Ill - Head Exam Head Exam: ATRAUMATIC, NORMAL INSPECTION - Eye Exam Eye Exam: Normal appearance, PERRL - ENT Exam ENT Exam: Mucous Membranes Dry, Normal Exam - Neck Exam Neck Exam: Full ROM, Normal Inspection - Respiratory Exam Respiratory Exam: NORMAL BREATHING PATTERN. absent: Respiratory Distress - Cardiovascular Exam Cardiovascular Exam: RRR, +S1, +S2, Murmur - GI/Abdominal Exam GI & Abdominal Exam: Soft, Normal Bowel Sounds. absent: Distended, Guarding, Tenderness - Extremities Exam Extremities Exam: Full ROM. absent: Pedal Edema - Neurological Exam Neurological Exam: Alert, Awake - Skin Skin Exam: Normal Color, Warm Assessment and Plan - Assessment and Plan (Free Text) Assessment: 67 year old male with a PMH of ADPKD s/p renal allograft (2006), ESRD on HD MWF, DM2, HTN, severe , and unrepaired infrarenal AAA who is being admitted for hematochezia while in the TCU. Plan: 1. GI bleeding, likely 2/2 diverticulosis - currently on protonix gtt - bleeding scan pending - H/H q6 - GI is consulted, recs appreciated - transfused 1u FFP and 1u platelets - transfuse to keep Hgb > 10 2. ESRD - MWF HD - Nephrology consulted 3. Anemia - likely multifactorial due to active bleeding and chronic anemia due to ESRD/iron deficiency and chronic inflammation - Heme/Onc consulted, recs appreciated 4. Thrombocytopenia - Multifactorial due to immunosuppresion and likely bleed - Heme/Onc consulted - s/p 1u FFP And 1u platelets 5. ADPKD - cont Prograft - Heme/Onc consulted, recs appreciated - Nephrology consulted, recs appreciated 6. UTI bactermia 2/2 klebsiella - SUHAIL was negative - cont Rocephin - Abx per ID, recs appreciated 7. PPX - on protonix Case was reviewed and discussed with Dr. Knox
[2018-09-15] MEDS: Levalbuterol 0.63 MG/3 ML Inhal Soln UD IH SCH ×3 (07:49→19:31)
[2018-09-15] MEDS: Insulin Reg-LOW-Coverage SC SCH ×3 (08:05→22:57)
[2018-09-15 08:44] LABS: PLATELET ESTIMATE LOW (NORMAL)
--- NOTE | 2018-09-15 10:38 | CP.PCM.CON ---
History of Present Illness - History of Present Illness History of Present Illness: General Surgery Consult Note for Dr. 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 Vitals revealed at this time revealed hypotension with tachycardia and patient subsequently taken to the ED for further care. Overnight, patient had another melanotic episode and given one unit FFP and one unit platelets. This morning, patient resting comfortably in bed and denies fevers, chills, nausea, vomiting, numbness, tingling, abdominal pain, hematemesis, hematochezia, and urinary complaints. 12 point ROS noted here, otherwise unremarkable. Patient not on anticoagulants and denies any recent history of GI bleeding. Patient seen by GI during hospital stay in 02/2018 and colonoscopy was deferred at that time until AAA was addressed. PMH: ADPKD s/p renal allograft (2006), ESRD on HD MWF, post-transplant DM2, HTN, severe , and unrepaired infrarenal AAA PSH: AVR, renal transplant (2006), bilateral inguinal hernia repair Family History: Non-contributory at this time Social History: Former smoker; Denies any current tobacco, alcohol or illicit drug use Allergies: NKDA Past Patient History - Infectious Disease Hx of Infectious Diseases: None - Past Medical History & Family History Past Medical History?: Yes - Past Social History Smoking Status: Former Smoker - CARDIAC Hx Cardiac Disorders: Yes (CAD, Aortic valve replacement.) Other/Comment: triple A - PULMONARY Hx Respiratory Disorders: No - NEUROLOGICAL Hx Neurological Disorder: No - HEENT Hx HEENT Problems: Yes (wears glasses) - RENAL Hx Chronic Kidney Disease: Yes (stage iv) Hx Dialysis: Yes (left arm fistula) - ENDOCRINE/METABOLIC Hx Diabetes Mellitus Type 2: Yes - HEMATOLOGICAL/ONCOLOGICAL Hx Anemia: Yes (iron deficiency) - INTEGUMENTARY Hx Dermatological Problems: Yes Other/Comment: multiple skin discolorations ble - MUSCULOSKELETAL/RHEUMATOLOGICAL Hx Falls: Yes Hx Unsteady Gait: Yes - GASTROINTESTINAL Hx Gastrointestinal Disorders: Yes (poor appetite weight loss) - GENITOURINARY/GYNECOLOGICAL Hx Genitourinary Disorders: Yes - PSYCHIATRIC Hx Psychophysiologic Disorder: No Hx Substance Use: No - SURGICAL HISTORY Hx Kidney Transplant: Yes (R kidney) - ANESTHESIA Hx Anesthesia: Yes Hx Anesthesia Reactions: No Hx Malignant Hyperthermia: No Meds Allergies/Adverse Reactions: Allergies Allergy/AdvReac Type Severity Reaction Status Date / Time No Known Allergies Allergy Verified 09/11/18 22:07 - Medications Medications: Current Medications Acetaminophen (Tylenol 325mg Tab) 650 mg PO Q4H PRN PRN Reason: temp > 99.5F Acetaminophen (Tylenol 325mg Tab) 650 mg PO Q6 PRN PRN Reason: TEMP>=99.5F Acetaminophen (Tylenol 650 Mg Supp) 650 mg RC Q6H PRN PRN Reason: TEMP>=99.5F Atorvastatin Calcium (Lipitor) 10 mg PO DIN [facility] Cyproheptadine HCl (Periactin) 4 mg PO BID [facility] Ezetimibe (Zetia) 10 mg PO DAILY [facility] Famotidine (Pepcid) 40 mg PO HS [facility] Last Admin: 09/14/18 21:58 Dose: 40 mg Pantoprazole Sodium (Protonix 40mg Ivpb) 40 mg in 100 mls @ 20 mls/hr IVPB .Q5H [facility] Last Admin: 09/15/18 08:14 Dose: 20 mls/hr Sodium Chloride (Sodium Chloride 0.9%) 500 mls @ 10 mls/hr IV .Q24H [facility] Last Admin: 09/14/18 17:18 Dose: 10 mls/hr Ceftriaxone Sodium (Rocephin 1 Gram Ivpb) 1 gm in 100 mls @ 100 mls/hr IVPB DAILY [facility]; Protocol Insulin Human Regular (Humulin R Low) 0 units SC ACHS [facility]; Protocol Last Admin: 09/15/18 08:05 Dose: Not Given Levalbuterol HCl (Xopenex) 0.63 mg IH [id number] [facility] Lidocaine (Lidoderm) 1 ea TD DAILY [facility] Morphine Sulfate (Morphine) 1 mg IVP Q8H PRN PRN Reason: Pain, severe (8-10) Ondansetron HCl (Zofran Inj) 4 mg IVP Q4H PRN PRN Reason: Nausea/Vomiting Prednisone (Prednisone Tab) 5 mg PO BRK [facility] Last Admin: 09/15/18 08:05 Dose: Not Given Results - Vital Signs Recent Vital Signs: Last Vital Signs Temp 98.2 F 09/15/18 05:56 Pulse 100 H 09/15/18 06:48 Resp 20 09/15/18 06:48 BP 132/101 H 09/15/18 06:00 Pulse Ox 97 09/14/18 21:26 - Constitutional Appears: No Acute Distress, Cachectic, Chronically Ill - Head Head Exam: ATRAUMATIC, NORMAL INSPECTION - Eyes Eye Exam: EOMI - Respiratory Exam Respiratory Exam: Clear to Ausculation Bilateral. absent: Accessory Muscle Use, Respiratory Distress - Cardiovascular Exam Cardiovascular Exam: REGULAR RHYTHM, +S1, +S2 - GI/Abdominal Exam GI & Abdominal Exam: Soft. Nontender. Bowel sounds appreciated in all 4 quadrants. Pulsatile mass appreciated on right side of abdomen. absent: Guarding, Rigid - Neurological Exam Neurological Exam: Awake, CN II-XII Intact, Oriented x3 Additional exam: Moving all extremities spontaneously, no motor/sensory deficits appreciated - Extremities Exam Extremities Exam: Normal Inspection. absent: Calf Tenderness, Tenderness Additional comments: cachectic lower extremities noted - Labs Result Diagrams: 09/15/18 07:00 09/15/18 07:00 Labs: Laboratory Results - last 24 hr 09/14/18 09/14/18 09/14/18 16:30 16:30 16:30 WBC 9.0 RBC 4.88 Hgb 10.9 L Hct 38.0 L MCV 77.9 L MCH 22.3 L MCHC 28.7 L RDW 20.6 H Plt Count 67 L Neut % (Auto) 92.8 H Lymph % (Auto) 5.0 L [place] % (Auto) 2.2 Eos % (Auto) 0.0 L Baso % (Auto) 0.0 Lymph # (Auto) 0.5 L [place] # (Auto) 0.2 Eos # (Auto) 0.0 Baso # (Auto) 0.00 Absolute Neuts (auto) 8.37 H Neutrophils % (Manual) 89 H Lymphocytes % (Manual) 6 L Monocytes % (Manual) 5 Toxic Granulation 1+ Platelet Evaluation Low Hypochromasia 1+ Rouleaux 2+ PT 14.7 H INR 1.32 APTT 37.8 pO2 VBG pH VBG pCO2 VBG HCO3 VBG Total CO2 VBG O2 Sat (Calc) VBG Base Excess VBG Potassium Glucose Lactate FiO2 Crit Value Called To Crit Value Called By Blood Gas Notified Time Sodium 139 Potassium 4.0 Chloride 99 Carbon Dioxide 28 Anion Gap 16 BUN 48 H Creatinine 2.9 H Est GFR ( Amer) 27 Est GFR (Non-Af Amer) 22 Random Glucose 261 H Calcium 8.1 L Phosphorus Magnesium Total Bilirubin 0.5 AST 45 ALT 13 Alkaline Phosphatase 172 H Ammonia Total Protein 6.3 Albumin 2.6 L Globulin 3.7 Albumin/Globulin Ratio 0.7 L Venous Blood Potassium Blood Type Antibody Screen Crossmatch BBK History Checked 09/14/18 09/14/18 09/15/18 16:32 16:44 00:10 WBC RBC Hgb Hct MCV MCH MCHC RDW Plt Count Neut % (Auto) Lymph % (Auto) [place] % (Auto) Eos % (Auto) Baso % (Auto) Lymph # (Auto) [place] # (Auto) Eos # (Auto) Baso # (Auto) Absolute Neuts (auto) Neutrophils % (Manual) Lymphocytes % (Manual) Monocytes % (Manual) Toxic Granulation Platelet Evaluation Hypochromasia Rouleaux PT INR APTT pO2 25 L 49 VBG pH 7.30 L 7.34 VBG pCO2 59.0 55.0 VBG HCO3 29.0 H 29.7 H VBG Total CO2 30.8 H 31.4 H VBG O2 Sat (Calc) 37.8 L 82.2 H VBG Base Excess 1.2 2.6 H VBG Potassium 4.1 4.1 Glucose 265 H 281 H Lactate 3.8 H 2.9 H FiO2 21.0 21.0 Crit Value Called To leilani Huggins md new grad rn Crit Value Called By Barbara dill operating room manager [employer] Blood Gas Notified Time 1658 33 Sodium 138.0 142.0 Potassium Chloride 100.0 104.0 Carbon Dioxide Anion Gap BUN Creatinine Est GFR ( Amer) Est GFR (Non-Af Amer) Random Glucose Calcium Phosphorus Magnesium Total Bilirubin AST ALT Alkaline Phosphatase Ammonia Total Protein Albumin Globulin Albumin/Globulin Ratio Venous Blood Potassium 4.1 4.1 Blood Type O POSITIVE Antibody Screen Negative Crossmatch See Detail BBK History Checked Patient has bt 09/15/18 09/15/18 09/15/18 00:10 00:10 07:00 WBC 8.5 RBC 3.74 Hgb 9.9 L 8.3 L Hct 34.9 L 28.9 L MCV 77.3 L MCH 22.2 L MCHC 28.7 L RDW 20.7 H Plt Count 42 L* Neut % (Auto) 85.6 H Lymph % (Auto) 9.7 L [place] % (Auto) 4.6 Eos % (Auto) 0.1 L Baso % (Auto) 0.0 Lymph # (Auto) 0.8 L [place] # (Auto) 0.4 Eos # (Auto) 0.0 Baso # (Auto) 0.00 Absolute Neuts (auto) 7.25 H Neutrophils % (Manual) Lymphocytes % (Manual) Monocytes % (Manual) Toxic Granulation Platelet Evaluation Low Hypochromasia Rouleaux PT INR APTT pO2 VBG pH VBG pCO2 VBG HCO3 VBG Total CO2 VBG O2 Sat (Calc) VBG Base Excess VBG Potassium Glucose Lactate FiO2 Crit Value Called To Crit Value Called By Blood Gas Notified Time Sodium Potassium Chloride Carbon Dioxide Anion Gap BUN Creatinine Est GFR ( Amer) Est GFR (Non-Af Amer) Random Glucose Calcium Phosphorus Magnesium Total Bilirubin AST ALT Alkaline Phosphatase Ammonia < 9 L Total Protein Albumin Globulin Albumin/Globulin Ratio Venous Blood Potassium Blood Type Antibody Screen Crossmatch BBK History Checked 09/15/18 07:00 WBC RBC Hgb Hct MCV MCH MCHC RDW Plt Count Neut % (Auto) Lymph % (Auto) [place] % (Auto) Eos % (Auto) Baso % (Auto) Lymph # (Auto) [place] # (Auto) Eos # (Auto) Baso # (Auto) Absolute Neuts (auto) Neutrophils % (Manual) Lymphocytes % (Manual) Monocytes % (Manual) Toxic Granulation Platelet Evaluation Hypochromasia Rouleaux PT INR APTT pO2 VBG pH VBG pCO2 VBG HCO3 VBG Total CO2 VBG O2 Sat (Calc) VBG Base Excess VBG Potassium Glucose Lactate FiO2 Crit Value Called To Crit Value Called By Blood Gas Notified Time Sodium 140 Potassium 3.8 Chloride 101 Carbon Dioxide 27 Anion Gap 16 BUN 53 H Creatinine 2.9 H Est GFR ( Amer) 27 Est GFR (Non-Af Amer) 22 Random Glucose 222 H Calcium 7.9 L Phosphorus 4.2 Magnesium 2.0 Total Bilirubin 0.4 AST 25 ALT 21 Alkaline Phosphatase 123 Ammonia Total Protein 5.4 L Albumin 2.3 L Globulin 3.1 Albumin/Globulin Ratio 0.8 L Venous Blood Potassium Blood Type Antibody Screen Crossmatch BBK History Checked Assessment & Plan - Assessment and Plan (Free Text) Assessment: This is a 67 year old male with extensive past medical history presenting to the hospital for lower GI bleeding. Lower GI Bleeding - consider diverticular disease vs infrarenal/duodenal fistula vs ischemic colitis ESRD on HD Infrarenal AAA Anemia Thrombocytopenia ADPKD UTI Bactermia 2/2 klebsiella Plan: -CTAP reviewed - severely aneurysmal abdominal aorta, chronic dissection of infrarenal abdominal aorta, extensive diverticulosis -GI bleeding scan pending -CT angio abdomen with contrast ordered -H/H q6 -s/p 1 unit platelets, 1 unit FFP -patient is high risk for AAA repair -will monitor Patient seen and case discussed with attending, Dr. Al Richards, PGY1
[2018-09-15] MEDS ORDERED: Iodixanol 320 mg/ml 150 ml Bottle IV ONE (10:51)
--- NOTE | 2018-09-15 11:23 | CP.CCUPN ---
<Georgi Gross - Last Filed: 09/15/18 13:50> CCU Subjective - Physician Review Events Since Last Encounter (Free Text): 09/15/18 11:20 Pt transferred to ICU from TCU Subjective (Free Text): 09/15/18 11:22 Pt seen and examined, no new complaints at this time CCU Objective - Vital Signs / Intake & Output Intake and Output (Last 8hrs): Intake & Output 09/14/18 09/15/18 09/15/18 22:59 06:59 14:59 Weight 104 lb 104 lb Other: Voiding Method Urinal - Physical Exam Head: Positive for: Atraumatic, Normocephalic Pupils: Positive for: PERRL Extroacular Muscles: Positive for: EOMI Conjunctiva: Positive for: Normal Mouth: Positive for: Moist Mucous Membranes Neck: Positive for: Normal Range of Motion. Negative for: Meningeal Signs, MIDLINE TENDERNESS Respiratory/Chest: Positive for: Clear to Auscultation, Good Air Exchange. Negative for: Respiratory Distress, Accessory Muscle Use Cardiovascular: Positive for: Regular Rate and Rhythm, Normal S1, S2. Negative for: Murmurs Abdomen: Negative for: Tenderness, Distention, Peritoneal Signs Rectal: Positive for: Normal Rectal Tone, Other (Guaiac positive. Maroon Stool). Negative for: Rectal Tenderness, Hemorrhoids, Fissures, Nodule/Mass/Lesions Back: Positive for: Normal Inspection. Negative for: CVA Tenderness, Midline Tenderness Upper Extremity: Positive for: Normal Inspection, NORMAL PULSES, Neurovascularly Intact, Capillary Refill < 2s, Other (LUE fistula w/ good bruit and good thrill, no erythema or crepitus noted overlaying). Negative for: Cyanosis, Edema, Tenderness, Erythema Lower Extremity: Positive for: Normal Inspection, NORMAL PULSES, Neurovascularly Intact. Negative for: Edema Neurological: Positive for: GCS=15, CN II-XII Intact, Speech Normal, Motor Func Grossly Intact Skin: Positive for: Warm, Dry, Normal Color. Negative for: Rashes Psychiatric: Positive for: Alert, Oriented x 3, Normal Insight, Normal Concentration - Medications Active Medications: Active Medications Generic Name Dose Route Start Last Admin Trade Name Freq PRN Reason Stop Dose Admin Acetaminophen 650 mg 09/14/18 19:20 Tylenol 325mg Tab PO Q4H PRN temp > 99.5F Acetaminophen 650 mg 09/15/18 08:40 Tylenol 325mg Tab PO Q6 PRN TEMP>=99.5F Acetaminophen 650 mg 09/15/18 08:40 Tylenol 650 Mg Supp RC Q6H PRN TEMP>=99.5F Atorvastatin Calcium 10 mg 09/15/18 17:00 Lipitor PO DIN [facility] Cyproheptadine HCl 4 mg 09/15/18 10:00 Periactin PO BID [place] Ezetimibe 10 mg 09/15/18 10:00 Zetia PO DAILY [place] Famotidine 40 mg 09/14/18 22:00 09/14/18 21:58 Pepcid PO 40 mg HS [place] Administration Pantoprazole Sodium 40 mg in 100 mls @ 20 mls/hr 09/14/18 16:00 09/15/18 08:14 Protonix 40mg Ivpb IVPB 20 mls/hr .Q5H [place] Administration Sodium Chloride 500 mls @ 10 mls/hr 09/14/18 16:58 09/14/18 17:18 Sodium Chloride 0.9% IV 10 mls/hr .Q24H [place] Administration Ceftriaxone Sodium 1 gm in 100 mls @ 100 mls/hr 09/15/18 10:00 Rocephin 1 Gram Ivpb IVPB DAILY [facility] Protocol Insulin Human Regular 0 units 09/14/18 22:00 09/15/18 08:05 Humulin R Low SC Not Given ACHS [facility] Protocol Levalbuterol HCl 0.63 mg 09/15/18 14:00 Xopenex IH [id number] [place] Lidocaine 1 ea 09/15/18 10:00 Lidoderm TD DAILY [facility] Morphine Sulfate 1 mg 09/14/18 19:43 Morphine IVP Q8H PRN Pain, severe (8-10) Ondansetron HCl 4 mg 09/15/18 08:40 Zofran Inj IVP Q4H PRN Nausea/Vomiting Prednisone 5 mg 09/15/18 08:00 09/15/18 08:05 Prednisone Tab PO Not Given [facility] - Patient Studies Lab Studies: Lab Studies 09/15/18 09/15/18 09/15/18 Range/Units 07:00 07:00 00:10 WBC 8.5 (4.5-11.0) 10^3/uL RBC 3.74 (3.5-6.1) 10^6/uL Hgb 8.3 L 9.9 L (14.0-18.0) g/dL Hct 28.9 L 34.9 L (42.0-52.0) % MCV 77.3 L (80.0-105.0) fl MCH 22.2 L (25.0-35.0) pg MCHC 28.7 L (31.0-37.0) g/dl RDW 20.7 H (11.5-14.5) % Plt Count 42 L* (120.0-450.0) 10^3/uL Neut % (Auto) 85.6 H (50.0-68.0) % Lymph % (Auto) 9.7 L (22.0-35.0) % [place] % (Auto) 4.6 (1.0-6.0) % Eos % (Auto) 0.1 L (1.5-5.0) % Baso % (Auto) 0.0 (0.0-3.0) % Lymph # (Auto) 0.8 L (1.2-3.4) [place] # (Auto) 0.4 (0.1-0.6) Eos # (Auto) 0.0 (0.0-0.7) Baso # (Auto) 0.00 (0.0-2.0) K/mm3 Absolute Neuts (auto) 7.25 H (1.4-6.5) Neutrophils % (Manual) (50.0-70.0) % Lymphocytes % (Manual) (22.0-35.0) % Monocytes % (Manual) (1.0-6.0) % Toxic Granulation Platelet Evaluation Low (NORMAL) Hypochromasia Rouleaux PT (9.4-12.5) SECONDS INR APTT (26.9-38.3) Seconds pO2 (30-55) mm/Hg VBG pH (7.32-7.43) VBG pCO2 (40-60) VBG HCO3 (21-28) mmol/l VBG Total CO2 (22-28) mmol.L VBG O2 Sat (Calc) (40-65) % VBG Base Excess (0.0-2.0) mmol/L VBG Potassium (3.6-5.2) mmol/L Glucose (75-110) mg/dl Lactate (0.7-2.1) mmol/L FiO2 % Crit Value Called To Crit Value Called By Blood Gas Notified Time Sodium 140 (132-148) mmol/L Potassium 3.8 (3.6-5.0) mmol/L Chloride 101 (98-107) mmol/L Carbon Dioxide 27 (21-33) mmol/L Anion Gap 16 (10-20) BUN 53 H (7-21) mg/dL Creatinine 2.9 H (0.8-1.5) mg/dl Est GFR ( Amer) 27 Est GFR (Non-Af Amer) 22 Random Glucose 222 H (70-110) mg/dL Calcium 7.9 L (8.4-10.5) mg/dL Phosphorus 4.2 (2.5-4.5) mg/dL Magnesium 2.0 (1.7-2.2) mg/dL Total Bilirubin 0.4 (0.2-1.3) mg/dL AST 25 (17-59) U/L ALT 21 (7-56) U/L Alkaline Phosphatase 123 (38-126) U/L Ammonia (9-33) umol/L Total Protein 5.4 L (5.8-8.3) g/dL Albumin 2.3 L (3.0-4.8) g/dL Globulin 3.1 gm/dL Albumin/Globulin Ratio 0.8 L (1.1-1.8) Venous Blood Potassium (3.6-5.2) mmol/L Blood Type Antibody Screen Crossmatch BBK History Checked 09/15/18 09/15/18 09/14/18 Range/Units 00:10 00:10 16:44 WBC (4.5-11.0) 10^3/uL RBC (3.5-6.1) 10^6/uL Hgb (14.0-18.0) g/dL Hct (42.0-52.0) % MCV (80.0-105.0) fl MCH (25.0-35.0) pg MCHC (31.0-37.0) g/dl RDW (11.5-14.5) % Plt Count (120.0-450.0) 10^3/uL Neut % (Auto) (50.0-68.0) % Lymph % (Auto) (22.0-35.0) % [place] % (Auto) (1.0-6.0) % Eos % (Auto) (1.5-5.0) % Baso % (Auto) (0.0-3.0) % Lymph # (Auto) (1.2-3.4) [place] # (Auto) (0.1-0.6) Eos # (Auto) (0.0-0.7) Baso # (Auto) (0.0-2.0) K/mm3 Absolute Neuts (auto) (1.4-6.5) Neutrophils % (Manual) (50.0-70.0) % Lymphocytes % (Manual) (22.0-35.0) % Monocytes % (Manual) (1.0-6.0) % Toxic Granulation Platelet Evaluation (NORMAL) Hypochromasia Rouleaux PT (9.4-12.5) SECONDS INR APTT (26.9-38.3) Seconds pO2 49 25 L (30-55) mm/Hg VBG pH 7.34 7.30 L (7.32-7.43) VBG pCO2 55.0 59.0 (40-60) VBG HCO3 29.7 H 29.0 H (21-28) mmol/l VBG Total CO2 31.4 H 30.8 H (22-28) mmol.L VBG O2 Sat (Calc) 82.2 H 37.8 L (40-65) % VBG Base Excess 2.6 H 1.2 (0.0-2.0) mmol/L VBG Potassium 4.1 4.1 (3.6-5.2) mmol/L Glucose 281 H 265 H (75-110) mg/dl Lactate 2.9 H 3.8 H (0.7-2.1) mmol/L FiO2 21.0 21.0 % Crit Value Called To Gary craig rn ccu leilani Huggins md Crit Value Called By Soraida dill breast puller Blood Gas Notified Time 33 [id number] Sodium 142.0 138.0 (132-148) mmol/L Potassium (3.6-5.0) mmol/L Chloride 104.0 100.0 (98-107) mmol/L Carbon Dioxide (21-33) mmol/L Anion Gap (10-20) BUN (7-21) mg/dL Creatinine (0.8-1.5) mg/dl Est GFR ( Amer) Est GFR (Non-Af Amer) Random Glucose (70-110) mg/dL Calcium (8.4-10.5) mg/dL Phosphorus (2.5-4.5) mg/dL Magnesium (1.7-2.2) mg/dL Total Bilirubin (0.2-1.3) mg/dL AST (17-59) U/L ALT (7-56) U/L Alkaline Phosphatase (38-126) U/L Ammonia < 9 L (9-33) umol/L Total Protein (5.8-8.3) g/dL Albumin (3.0-4.8) g/dL Globulin gm/dL Albumin/Globulin Ratio (1.1-1.8) Venous Blood Potassium 4.1 4.1 (3.6-5.2) mmol/L Blood Type Antibody Screen Crossmatch BBK History Checked 09/14/18 09/14/18 09/14/18 Range/Units 16:32 16:30 16:30 WBC (4.5-11.0) 10^3/uL RBC (3.5-6.1) 10^6/uL Hgb (14.0-18.0) g/dL Hct (42.0-52.0) % MCV (80.0-105.0) fl MCH (25.0-35.0) pg MCHC (31.0-37.0) g/dl RDW (11.5-14.5) % Plt Count (120.0-450.0) 10^3/uL Neut % (Auto) (50.0-68.0) % Lymph % (Auto) (22.0-35.0) % [place] % (Auto) (1.0-6.0) % Eos % (Auto) (1.5-5.0) % Baso % (Auto) (0.0-3.0) % Lymph # (Auto) (1.2-3.4) [place] # (Auto) (0.1-0.6) Eos # (Auto) (0.0-0.7) Baso # (Auto) (0.0-2.0) K/mm3 Absolute Neuts (auto) (1.4-6.5) Neutrophils % (Manual) (50.0-70.0) % Lymphocytes % (Manual) (22.0-35.0) % Monocytes % (Manual) (1.0-6.0) % Toxic Granulation Platelet Evaluation (NORMAL) Hypochromasia Rouleaux PT 14.7 H (9.4-12.5) SECONDS INR 1.32 APTT 37.8 (26.9-38.3) Seconds pO2 (30-55) mm/Hg VBG pH (7.32-7.43) VBG pCO2 (40-60) VBG HCO3 (21-28) mmol/l VBG Total CO2 (22-28) mmol.L VBG O2 Sat (Calc) (40-65) % VBG Base Excess (0.0-2.0) mmol/L VBG Potassium (3.6-5.2) mmol/L Glucose (75-110) mg/dl Lactate (0.7-2.1) mmol/L FiO2 % Crit Value Called To Crit Value Called By Blood Gas Notified Time Sodium 139 (132-148) mmol/L Potassium 4.0 (3.6-5.0) mmol/L Chloride 99 (98-107) mmol/L Carbon Dioxide 28 (21-33) mmol/L Anion Gap 16 (10-20) BUN 48 H (7-21) mg/dL Creatinine 2.9 H (0.8-1.5) mg/dl Est GFR ( Amer) 27 Est GFR (Non-Af Amer) 22 Random Glucose 261 H (70-110) mg/dL Calcium 8.1 L (8.4-10.5) mg/dL Phosphorus (2.5-4.5) mg/dL Magnesium (1.7-2.2) mg/dL Total Bilirubin 0.5 (0.2-1.3) mg/dL AST 45 (17-59) U/L ALT 13 (7-56) U/L Alkaline Phosphatase 172 H (38-126) U/L Ammonia (9-33) umol/L Total Protein 6.3 (5.8-8.3) g/dL Albumin 2.6 L (3.0-4.8) g/dL Globulin 3.7 gm/dL Albumin/Globulin Ratio 0.7 L (1.1-1.8) Venous Blood Potassium (3.6-5.2) mmol/L Blood Type O POSITIVE Antibody Screen Negative Crossmatch See Detail BBK History Checked Patient has bt 09/14/18 Range/Units 16:30 WBC 9.0 (4.5-11.0) 10^3/uL RBC 4.88 (3.5-6.1) 10^6/uL Hgb 10.9 L (14.0-18.0) g/dL Hct 38.0 L (42.0-52.0) % MCV 77.9 L (80.0-105.0) fl MCH 22.3 L (25.0-35.0) pg MCHC 28.7 L (31.0-37.0) g/dl RDW 20.6 H (11.5-14.5) % Plt Count 67 L (120.0-450.0) 10^3/uL Neut % (Auto) 92.8 H (50.0-68.0) % Lymph % (Auto) 5.0 L (22.0-35.0) % [place] % (Auto) 2.2 (1.0-6.0) % Eos % (Auto) 0.0 L (1.5-5.0) % Baso % (Auto) 0.0 (0.0-3.0) % Lymph # (Auto) 0.5 L (1.2-3.4) [place] # (Auto) 0.2 (0.1-0.6) Eos # (Auto) 0.0 (0.0-0.7) Baso # (Auto) 0.00 (0.0-2.0) K/mm3 Absolute Neuts (auto) 8.37 H (1.4-6.5) Neutrophils % (Manual) 89 H (50.0-70.0) % Lymphocytes % (Manual) 6 L (22.0-35.0) % Monocytes % (Manual) 5 (1.0-6.0) % Toxic Granulation 1+ Platelet Evaluation Low (NORMAL) Hypochromasia 1+ Rouleaux 2+ PT (9.4-12.5) SECONDS INR APTT (26.9-38.3) Seconds pO2 (30-55) mm/Hg VBG pH (7.32-7.43) VBG pCO2 (40-60) VBG HCO3 (21-28) mmol/l VBG Total CO2 (22-28) mmol.L VBG O2 Sat (Calc) (40-65) % VBG Base Excess (0.0-2.0) mmol/L VBG Potassium (3.6-5.2) mmol/L Glucose (75-110) mg/dl Lactate (0.7-2.1) mmol/L FiO2 % Crit Value Called To Crit Value Called By Blood Gas Notified Time Sodium (132-148) mmol/L Potassium (3.6-5.0) mmol/L Chloride (98-107) mmol/L Carbon Dioxide (21-33) mmol/L Anion Gap (10-20) BUN (7-21) mg/dL Creatinine (0.8-1.5) mg/dl Est GFR ( Amer) Est GFR (Non-Af Amer) Random Glucose (70-110) mg/dL Calcium (8.4-10.5) mg/dL Phosphorus (2.5-4.5) mg/dL Magnesium (1.7-2.2) mg/dL Total Bilirubin (0.2-1.3) mg/dL AST (17-59) U/L ALT (7-56) U/L Alkaline Phosphatase (38-126) U/L Ammonia (9-33) umol/L Total Protein (5.8-8.3) g/dL Albumin (3.0-4.8) g/dL Globulin gm/dL Albumin/Globulin Ratio (1.1-1.8) Venous Blood Potassium (3.6-5.2) mmol/L Blood Type Antibody Screen Crossmatch BBK History Checked Laboratory Results - last 24 hr 09/14/18 09/14/18 09/14/18 16:30 16:30 16:30 WBC 9.0 RBC 4.88 Hgb 10.9 L Hct 38.0 L MCV 77.9 L MCH 22.3 L MCHC 28.7 L RDW 20.6 H Plt Count 67 L Neut % (Auto) 92.8 H Lymph % (Auto) 5.0 L [place] % (Auto) 2.2 Eos % (Auto) 0.0 L Baso % (Auto) 0.0 Lymph # (Auto) 0.5 L [place] # (Auto) 0.2 Eos # (Auto) 0.0 Baso # (Auto) 0.00 Absolute Neuts (auto) 8.37 H Neutrophils % (Manual) 89 H Lymphocytes % (Manual) 6 L Monocytes % (Manual) 5 Toxic Granulation 1+ Platelet Evaluation Low Hypochromasia 1+ Rouleaux 2+ PT 14.7 H INR 1.32 APTT 37.8 pO2 VBG pH VBG pCO2 VBG HCO3 VBG Total CO2 VBG O2 Sat (Calc) VBG Base Excess VBG Potassium Glucose Lactate FiO2 Crit Value Called To Crit Value Called By Blood Gas Notified Time Sodium 139 Potassium 4.0 Chloride 99 Carbon Dioxide 28 Anion Gap 16 BUN 48 H Creatinine 2.9 H Est GFR ( Amer) 27 Est GFR (Non-Af Amer) 22 Random Glucose 261 H Calcium 8.1 L Phosphorus Magnesium Total Bilirubin 0.5 AST 45 ALT 13 Alkaline Phosphatase 172 H Ammonia Total Protein 6.3 Albumin 2.6 L Globulin 3.7 Albumin/Globulin Ratio 0.7 L Venous Blood Potassium Blood Type Antibody Screen Crossmatch BBK History Checked 09/14/18 09/14/18 09/15/18 16:32 16:44 00:10 WBC RBC Hgb Hct MCV MCH MCHC RDW Plt Count Neut % (Auto) Lymph % (Auto) [place] % (Auto) Eos % (Auto) Baso % (Auto) Lymph # (Auto) [place] # (Auto) Eos # (Auto) Baso # (Auto) Absolute Neuts (auto) Neutrophils % (Manual) Lymphocytes % (Manual) Monocytes % (Manual) Toxic Granulation Platelet Evaluation Hypochromasia Rouleaux PT INR APTT pO2 25 L 49 VBG pH 7.30 L 7.34 VBG pCO2 59.0 55.0 VBG HCO3 29.0 H 29.7 H VBG Total CO2 30.8 H 31.4 H VBG O2 Sat (Calc) 37.8 L 82.2 H VBG Base Excess 1.2 2.6 H VBG Potassium 4.1 4.1 Glucose 265 H 281 H Lactate 3.8 H 2.9 H FiO2 21.0 21.0 Crit Value Called To leilani Huggins md furnace door tender Crit Value Called By Barbara dill breast puller [facility] Blood Gas Notified Time 1658 33 Sodium 138.0 142.0 Potassium Chloride 100.0 104.0 Carbon Dioxide Anion Gap BUN Creatinine Est GFR ( Amer) Est GFR (Non-Af Amer) Random Glucose Calcium Phosphorus Magnesium Total Bilirubin AST ALT Alkaline Phosphatase Ammonia Total Protein Albumin Globulin Albumin/Globulin Ratio Venous Blood Potassium 4.1 4.1 Blood Type O POSITIVE Antibody Screen Negative Crossmatch See Detail BBK History Checked Patient has bt 09/15/18 09/15/18 09/15/18 00:10 00:10 07:00 WBC 8.5 RBC 3.74 Hgb 9.9 L 8.3 L Hct 34.9 L 28.9 L MCV 77.3 L MCH 22.2 L MCHC 28.7 L RDW 20.7 H Plt Count 42 L* Neut % (Auto) 85.6 H Lymph % (Auto) 9.7 L [place] % (Auto) 4.6 Eos % (Auto) 0.1 L Baso % (Auto) 0.0 Lymph # (Auto) 0.8 L [place] # (Auto) 0.4 Eos # (Auto) 0.0 Baso # (Auto) 0.00 Absolute Neuts (auto) 7.25 H Neutrophils % (Manual) Lymphocytes % (Manual) Monocytes % (Manual) Toxic Granulation Platelet Evaluation Low Hypochromasia Rouleaux PT INR APTT pO2 VBG pH VBG pCO2 VBG HCO3 VBG Total CO2 VBG O2 Sat (Calc) VBG Base Excess VBG Potassium Glucose Lactate FiO2 Crit Value Called To Crit Value Called By Blood Gas Notified Time Sodium Potassium Chloride Carbon Dioxide Anion Gap BUN Creatinine Est GFR ( Amer) Est GFR (Non-Af Amer) Random Glucose Calcium Phosphorus Magnesium Total Bilirubin AST ALT Alkaline Phosphatase Ammonia < 9 L Total Protein Albumin Globulin Albumin/Globulin Ratio Venous Blood Potassium Blood Type Antibody Screen Crossmatch BBK History Checked 09/15/18 07:00 WBC RBC Hgb Hct MCV MCH MCHC RDW Plt Count Neut % (Auto) Lymph % (Auto) [place] % (Auto) Eos % (Auto) Baso % (Auto) Lymph # (Auto) [place] # (Auto) Eos # (Auto) Baso # (Auto) Absolute Neuts (auto) Neutrophils % (Manual) Lymphocytes % (Manual) Monocytes % (Manual) Toxic Granulation Platelet Evaluation Hypochromasia Rouleaux PT INR APTT pO2 VBG pH VBG pCO2 VBG HCO3 VBG Total CO2 VBG O2 Sat (Calc) VBG Base Excess VBG Potassium Glucose Lactate FiO2 Crit Value Called To Crit Value Called By Blood Gas Notified Time Sodium 140 Potassium 3.8 Chloride 101 Carbon Dioxide 27 Anion Gap 16 BUN 53 H Creatinine 2.9 H Est GFR ( Amer) 27 Est GFR (Non-Af Amer) 22 Random Glucose 222 H Calcium 7.9 L Phosphorus 4.2 Magnesium 2.0 Total Bilirubin 0.4 AST 25 ALT 21 Alkaline Phosphatase 123 Ammonia Total Protein 5.4 L Albumin 2.3 L Globulin 3.1 Albumin/Globulin Ratio 0.8 L Venous Blood Potassium Blood Type Antibody Screen Crossmatch BBK History Checked Radiology Impressions: Radiology Impressions Abdomen/Pelvis CT 09/14/18 16:01 IMPRESSION: Severely limited study as above. Bilateral pleural effusions and associated consolidations as well as patchy consolidation involving the right middle and lower lobes. Extensive atherosclerotic calcifications of severely aneurysmal abdominal aorta. 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 Suboptimal visualization of bowel loops. Extensive diverticulosis. Abdominal and pelvic ascites. Innumerable bilateral renal cysts of the nikolski kidneys consistent with polycystic kidney disease. Hydronephrosis of the transplanted right lower quadrant kidney. Heterogeneous appearance of the liver with innumerable hypodensities, possibly tiny cysts or hemangiomas. Ill-defined hypodense region within the hepatic dome spanning approximately 16 x 10 mm, indeterminate. Urinary bladder appears thick walled; correlate with urinalysis. Additional findings as above. EKG/Cardiology Studies: Cardiology / EKG Studies 09/14/18 15:53 ELECTROCARDIOGRAM Stat Comment: Reason For Exam: rr Fingerstick Blood Sugar Results: 222 Critical Care Progress Note - Nutrition Nutrition: Nutrition Category Date Time Status NPO Diet [DIET] Diets 09/14/18 Breakfast Ordered Assessment/Plan - Assessment and Plan (Free Text) Assessment: Pt is a 67 yo male with a PMH of ADPKD s/p renal transplant, ESRD on HD, severe , DM2, HTN, and AAA who was admitted for lethargy and diarrhea, treated for UTI, who was then transferred to TCU where he had a bloody bowel movement and was transferred to ICU. Plan: Neuro - continue to monitor neuro status Cardio - HTN, severe , and unrepaired infrarenal AAA - lipitor - zetia - follow up trops - Maintain MAP above 65 - will start beta fe for AAA in the future - follow up angiogram for possible fistula - CT abd/pelvis w/o contrast: Extensive atherosclerotic calcifications of severely aneurysmal abdominal aorta. 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 - cardio consulted, Dr Acosta Marcelino - stable on room air - maintain GI -1 episode of bloody BM - monitor H/H - continue pantoprazole drip - follow up bleeding scan - CT abd/pelvis w/o contrast: Extensive diverticulosis. Abdominal and pelvic ascites. Heterogeneous appearance of the liver with innumerable hypodensities, possibly tiny cysts or hemangiomas. Ill-defined hypodense region within the hepatic dome spanning approximately 16 x 10 mm, indeterminate. - NPO except meds - GI consulted, Dr Cordova - Surgery consulted Nephro/ - ADPKD s/p renal allograft, ESRD on HD, Chronic kidney disease - CT abd/pelvis w/o contrast: Innumerable bilateral renal cysts of the nikolski kidneys consistent with polycystic kidney disease. Hydronephrosis of the transplanted right lower quadrant kidney. - Nephro consulted, Dr Wheeler ID - afebrile, no leukocytosis - ceftriaxone - blood cultures: pending - CT abd/pelvis w/o contrast: Bilateral pleural effusions and associated consolidations as well as patchy consolidation involving the right middle and lower lobes. Urinary bladder appears thick walled; correlate with urinalysis. - ID consulted, Dr Squires Heme /Onc - anemia 2/2 renal disease receiving MARK per renal - Heme/onc consulted, Dr Leigh Endocrine - DM - ISS low dose protocol Pt seen, examined, assessment and plan discussed with Dr Kath Gross PGY1 - Date & Time Date: 09/15/18 Time: 08:00 <Darren Stockton - Last Filed: 09/15/18 14:18> CCU Objective - Vital Signs / Intake & Output Intake and Output (Last 8hrs): Intake & Output 09/14/18 09/15/18 09/15/18 22:59 06:59 14:59 Weight 104 lb 104 lb Other: Voiding Method Urinal - Medications Active Medications: Active Medications Generic Name Dose Route Start Last Admin Trade Name Freq PRN Reason Stop Dose Admin Acetaminophen 650 mg 09/14/18 19:20 Tylenol 325mg Tab PO Q4H PRN temp > 99.5F Acetaminophen 650 mg 09/15/18 08:40 Tylenol 325mg Tab PO Q6 PRN TEMP>=99.5F Acetaminophen 650 mg 09/15/18 08:40 Tylenol 650 Mg Supp RC Q6H PRN TEMP>=99.5F Atorvastatin Calcium 10 mg 09/15/18 17:00 Lipitor PO DIN [facility] Cyproheptadine HCl 4 mg 09/15/18 10:00 Periactin PO BID [place] Ezetimibe 10 mg 09/15/18 10:00 Zetia PO DAILY [place] Famotidine 40 mg 09/14/18 22:00 09/14/18 21:58 Pepcid PO 40 mg HS [place] Administration Pantoprazole Sodium 40 mg in 100 mls @ 20 mls/hr 09/14/18 16:00 09/15/18 08:14 Protonix 40mg Ivpb IVPB 20 mls/hr .Q5H [place] Administration Sodium Chloride 500 mls @ 10 mls/hr 09/14/18 16:58 09/14/18 17:18 Sodium Chloride 0.9% IV 10 mls/hr .Q24H [place] Administration Ceftriaxone Sodium 1 gm in 100 mls @ 100 mls/hr 09/15/18 10:00 Rocephin 1 Gram Ivpb IVPB DAILY [facility] Protocol Insulin Human Regular 0 units 09/14/18 22:00 09/15/18 08:05 Humulin R Low SC Not Given ACHS [facility] Protocol Levalbuterol HCl 0.63 mg 09/15/18 14:00 09/15/18 13:28 Xopenex IH 0.63 mg [id number] [place] Administration Lidocaine 1 ea 09/15/18 10:00 Lidoderm TD DAILY [place] Morphine Sulfate 1 mg 09/14/18 19:43 Morphine IVP Q8H PRN Pain, severe (8-10) Ondansetron HCl 4 mg 09/15/18 08:40 Zofran Inj IVP Q4H PRN Nausea/Vomiting Prednisone 5 mg 09/15/18 08:00 09/15/18 08:05 Prednisone Tab PO Not Given BRK [place] - Patient Studies Lab Studies: Lab Studies 09/15/18 09/15/18 09/15/18 Range/Units 13:20 07:00 07:00 WBC 8.5 (4.5-11.0) 10^3/uL RBC 3.74 (3.5-6.1) 10^6/uL Hgb 8.3 L (14.0-18.0) g/dL Hct 28.9 L (42.0-52.0) % MCV 77.3 L (80.0-105.0) fl MCH 22.2 L (25.0-35.0) pg MCHC 28.7 L (31.0-37.0) g/dl RDW 20.7 H (11.5-14.5) % Plt Count 42 L* (120.0-450.0) 10^3/uL Neut % (Auto) 85.6 H (50.0-68.0) % Lymph % (Auto) 9.7 L (22.0-35.0) % [place] % (Auto) 4.6 (1.0-6.0) % Eos % (Auto) 0.1 L (1.5-5.0) % Baso % (Auto) 0.0 (0.0-3.0) % Lymph # (Auto) 0.8 L (1.2-3.4) [place] # (Auto) 0.4 (0.1-0.6) Eos # (Auto) 0.0 (0.0-0.7) Baso # (Auto) 0.00 (0.0-2.0) K/mm3 Absolute Neuts (auto) 7.25 H (1.4-6.5) Neutrophils % (Manual) (50.0-70.0) % Lymphocytes % (Manual) (22.0-35.0) % Monocytes % (Manual) (1.0-6.0) % Toxic Granulation Platelet Evaluation Low (NORMAL) Hypochromasia Rouleaux PT (9.4-12.5) SECONDS INR APTT (26.9-38.3) Seconds pO2 (30-55) mm/Hg VBG pH (7.32-7.43) VBG pCO2 (40-60) VBG HCO3 (21-28) mmol/l VBG Total CO2 (22-28) mmol.L VBG O2 Sat (Calc) (40-65) % VBG Base Excess (0.0-2.0) mmol/L VBG Potassium (3.6-5.2) mmol/L Glucose (75-110) mg/dl Lactate (0.7-2.1) mmol/L FiO2 % Crit Value Called To Crit Value Called By Blood Gas Notified Time Sodium 140 (132-148) mmol/L Potassium 3.8 (3.6-5.0) mmol/L Chloride 101 (98-107) mmol/L Carbon Dioxide 27 (21-33) mmol/L Anion Gap 16 (10-20) BUN 53 H (7-21) mg/dL Creatinine 2.9 H (0.8-1.5) mg/dl Est GFR ( Amer) 27 Est GFR (Non-Af Amer) 22 POC Glucose (mg/dL) 232 H (65-110) mg/dL Random Glucose 222 H (70-110) mg/dL Calcium 7.9 L (8.4-10.5) mg/dL Phosphorus 4.2 (2.5-4.5) mg/dL Magnesium 2.0 (1.7-2.2) mg/dL Total Bilirubin 0.4 (0.2-1.3) mg/dL AST 25 (17-59) U/L ALT 21 (7-56) U/L Alkaline Phosphatase 123 (38-126) U/L Ammonia (9-33) umol/L Total Protein 5.4 L (5.8-8.3) g/dL Albumin 2.3 L (3.0-4.8) g/dL Globulin 3.1 gm/dL Albumin/Globulin Ratio 0.8 L (1.1-1.8) Venous Blood Potassium (3.6-5.2) mmol/L Blood Type Antibody Screen Crossmatch BBK History Checked 09/15/18 09/15/18 09/15/18 Range/Units 00:10 00:10 00:10 WBC (4.5-11.0) 10^3/uL RBC (3.5-6.1) 10^6/uL Hgb 9.9 L (14.0-18.0) g/dL Hct 34.9 L (42.0-52.0) % MCV (80.0-105.0) fl MCH (25.0-35.0) pg MCHC (31.0-37.0) g/dl RDW (11.5-14.5) % Plt Count (120.0-450.0) 10^3/uL Neut % (Auto) (50.0-68.0) % Lymph % (Auto) (22.0-35.0) % [place] % (Auto) (1.0-6.0) % Eos % (Auto) (1.5-5.0) % Baso % (Auto) (0.0-3.0) % Lymph # (Auto) (1.2-3.4) [place] # (Auto) (0.1-0.6) Eos # (Auto) (0.0-0.7) Baso # (Auto) (0.0-2.0) K/mm3 Absolute Neuts (auto) (1.4-6.5) Neutrophils % (Manual) (50.0-70.0) % Lymphocytes % (Manual) (22.0-35.0) % Monocytes % (Manual) (1.0-6.0) % Toxic Granulation Platelet Evaluation (NORMAL) Hypochromasia Rouleaux PT (9.4-12.5) SECONDS INR APTT (26.9-38.3) Seconds pO2 49 (30-55) mm/Hg VBG pH 7.34 (7.32-7.43) VBG pCO2 55.0 (40-60) VBG HCO3 29.7 H (21-28) mmol/l VBG Total CO2 31.4 H (22-28) mmol.L VBG O2 Sat (Calc) 82.2 H (40-65) % VBG Base Excess 2.6 H (0.0-2.0) mmol/L VBG Potassium 4.1 (3.6-5.2) mmol/L Glucose 281 H (75-110) mg/dl Lactate 2.9 H (0.7-2.1) mmol/L FiO2 21.0 % Crit Value 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 Crit Value Called By [facility] Blood Gas Notified Time 33 Sodium 142.0 (132-148) mmol/L Potassium (3.6-5.0) mmol/L Chloride 104.0 (98-107) mmol/L Carbon Dioxide (21-33) mmol/L Anion Gap (10-20) BUN (7-21) mg/dL Creatinine (0.8-1.5) mg/dl Est GFR ( Amer) Est GFR (Non-Af Amer) POC Glucose (mg/dL) (65-110) mg/dL Random Glucose (70-110) mg/dL Calcium (8.4-10.5) mg/dL Phosphorus (2.5-4.5) mg/dL Magnesium (1.7-2.2) mg/dL Total Bilirubin (0.2-1.3) mg/dL AST (17-59) U/L ALT (7-56) U/L Alkaline Phosphatase (38-126) U/L Ammonia < 9 L (9-33) umol/L Total Protein (5.8-8.3) g/dL Albumin (3.0-4.8) g/dL Globulin gm/dL Albumin/Globulin Ratio (1.1-1.8) Venous Blood Potassium 4.1 (3.6-5.2) mmol/L Blood Type Antibody Screen Crossmatch BBK History Checked 09/14/18 09/14/18 09/14/18 Range/Units 16:44 16:32 16:30 WBC (4.5-11.0) 10^3/uL RBC (3.5-6.1) 10^6/uL Hgb (14.0-18.0) g/dL Hct (42.0-52.0) % MCV (80.0-105.0) fl MCH (25.0-35.0) pg MCHC (31.0-37.0) g/dl RDW (11.5-14.5) % Plt Count (120.0-450.0) 10^3/uL Neut % (Auto) (50.0-68.0) % Lymph % (Auto) (22.0-35.0) % [place] % (Auto) (1.0-6.0) % Eos % (Auto) (1.5-5.0) % Baso % (Auto) (0.0-3.0) % Lymph # (Auto) (1.2-3.4) [place] # (Auto) (0.1-0.6) Eos # (Auto) (0.0-0.7) Baso # (Auto) (0.0-2.0) K/mm3 Absolute Neuts (auto) (1.4-6.5) Neutrophils % (Manual) (50.0-70.0) % Lymphocytes % (Manual) (22.0-35.0) % Monocytes % (Manual) (1.0-6.0) % Toxic Granulation Platelet Evaluation (NORMAL) Hypochromasia Rouleaux PT (9.4-12.5) SECONDS INR APTT (26.9-38.3) Seconds pO2 25 L (30-55) mm/Hg VBG pH 7.30 L (7.32-7.43) VBG pCO2 59.0 (40-60) VBG HCO3 29.0 H (21-28) mmol/l VBG Total CO2 30.8 H (22-28) mmol.L VBG O2 Sat (Calc) 37.8 L (40-65) % VBG Base Excess 1.2 (0.0-2.0) mmol/L VBG Potassium 4.1 (3.6-5.2) mmol/L Glucose 265 H (75-110) mg/dl Lactate 3.8 H (0.7-2.1) mmol/L FiO2 21.0 % Crit Value Called To leilani Huggins md Crit Value Called By Barbara dill breast puller Blood Gas Notified Time 1658 Sodium 138.0 139 (132-148) mmol/L Potassium 4.0 (3.6-5.0) mmol/L Chloride 100.0 99 (98-107) mmol/L Carbon Dioxide 28 (21-33) mmol/L Anion Gap 16 (10-20) BUN 48 H (7-21) mg/dL Creatinine 2.9 H (0.8-1.5) mg/dl Est GFR ( Amer) 27 Est GFR (Non-Af Amer) 22 POC Glucose (mg/dL) (65-110) mg/dL Random Glucose 261 H (70-110) mg/dL Calcium 8.1 L (8.4-10.5) mg/dL Phosphorus (2.5-4.5) mg/dL Magnesium (1.7-2.2) mg/dL Total Bilirubin 0.5 (0.2-1.3) mg/dL AST 45 (17-59) U/L ALT 13 (7-56) U/L Alkaline Phosphatase 172 H (38-126) U/L Ammonia (9-33) umol/L Total Protein 6.3 (5.8-8.3) g/dL Albumin 2.6 L (3.0-4.8) g/dL Globulin 3.7 gm/dL Albumin/Globulin Ratio 0.7 L (1.1-1.8) Venous Blood Potassium 4.1 (3.6-5.2) mmol/L Blood Type O POSITIVE Antibody Screen Negative Crossmatch See Detail BBK History Checked Patient has bt 09/14/18 09/14/18 Range/Units 16:30 16:30 WBC 9.0 (4.5-11.0) 10^3/uL RBC 4.88 (3.5-6.1) 10^6/uL Hgb 10.9 L (14.0-18.0) g/dL Hct 38.0 L (42.0-52.0) % MCV 77.9 L (80.0-105.0) fl MCH 22.3 L (25.0-35.0) pg MCHC 28.7 L (31.0-37.0) g/dl RDW 20.6 H (11.5-14.5) % Plt Count 67 L (120.0-450.0) 10^3/uL Neut % (Auto) 92.8 H (50.0-68.0) % Lymph % (Auto) 5.0 L (22.0-35.0) % [place] % (Auto) 2.2 (1.0-6.0) % Eos % (Auto) 0.0 L (1.5-5.0) % Baso % (Auto) 0.0 (0.0-3.0) % Lymph # (Auto) 0.5 L (1.2-3.4) [place] # (Auto) 0.2 (0.1-0.6) Eos # (Auto) 0.0 (0.0-0.7) Baso # (Auto) 0.00 (0.0-2.0) K/mm3 Absolute Neuts (auto) 8.37 H (1.4-6.5) Neutrophils % (Manual) 89 H (50.0-70.0) % Lymphocytes % (Manual) 6 L (22.0-35.0) % Monocytes % (Manual) 5 (1.0-6.0) % Toxic Granulation 1+ Platelet Evaluation Low (NORMAL) Hypochromasia 1+ Rouleaux 2+ PT 14.7 H (9.4-12.5) SECONDS INR 1.32 APTT 37.8 (26.9-38.3) Seconds pO2 (30-55) mm/Hg VBG pH (7.32-7.43) VBG pCO2 (40-60) VBG HCO3 (21-28) mmol/l VBG Total CO2 (22-28) mmol.L VBG O2 Sat (Calc) (40-65) % VBG Base Excess (0.0-2.0) mmol/L VBG Potassium (3.6-5.2) mmol/L Glucose (75-110) mg/dl Lactate (0.7-2.1) mmol/L FiO2 % Crit Value Called To Crit Value Called By Blood Gas Notified Time Sodium (132-148) mmol/L Potassium (3.6-5.0) mmol/L Chloride (98-107) mmol/L Carbon Dioxide (21-33) mmol/L Anion Gap (10-20) BUN (7-21) mg/dL Creatinine (0.8-1.5) mg/dl Est GFR ( Amer) Est GFR (Non-Af Amer) POC Glucose (mg/dL) (65-110) mg/dL Random Glucose (70-110) mg/dL Calcium (8.4-10.5) mg/dL Phosphorus (2.5-4.5) mg/dL Magnesium (1.7-2.2) mg/dL Total Bilirubin (0.2-1.3) mg/dL AST (17-59) U/L ALT (7-56) U/L Alkaline Phosphatase (38-126) U/L Ammonia (9-33) umol/L Total Protein (5.8-8.3) g/dL Albumin (3.0-4.8) g/dL Globulin gm/dL Albumin/Globulin Ratio (1.1-1.8) Venous Blood Potassium (3.6-5.2) mmol/L Blood Type Antibody Screen Crossmatch BBK History Checked Laboratory Results - last 24 hr 09/14/18 09/14/18 09/14/18 16:30 16:30 16:30 WBC 9.0 RBC 4.88 Hgb 10.9 L Hct 38.0 L MCV 77.9 L MCH 22.3 L MCHC 28.7 L RDW 20.6 H Plt Count 67 L Neut % (Auto) 92.8 H Lymph % (Auto) 5.0 L [place] % (Auto) 2.2 Eos % (Auto) 0.0 L Baso % (Auto) 0.0 Lymph # (Auto) 0.5 L [place] # (Auto) 0.2 Eos # (Auto) 0.0 Baso # (Auto) 0.00 Absolute Neuts (auto) 8.37 H Neutrophils % (Manual) 89 H Lymphocytes % (Manual) 6 L Monocytes % (Manual) 5 Toxic Granulation 1+ Platelet Evaluation Low Hypochromasia 1+ Rouleaux 2+ PT 14.7 H INR 1.32 APTT 37.8 pO2 VBG pH VBG pCO2 VBG HCO3 VBG Total CO2 VBG O2 Sat (Calc) VBG Base Excess VBG Potassium Glucose Lactate FiO2 Crit Value Called To Crit Value Called By Blood Gas Notified Time Sodium 139 Potassium 4.0 Chloride 99 Carbon Dioxide 28 Anion Gap 16 BUN 48 H Creatinine 2.9 H Est GFR ( Amer) 27 Est GFR (Non-Af Amer) 22 POC Glucose (mg/dL) Random Glucose 261 H Calcium 8.1 L Phosphorus Magnesium Total Bilirubin 0.5 AST 45 ALT 13 Alkaline Phosphatase 172 H Ammonia Total Protein 6.3 Albumin 2.6 L Globulin 3.7 Albumin/Globulin Ratio 0.7 L Venous Blood Potassium Blood Type Antibody Screen Crossmatch BBK History Checked 09/14/18 09/14/18 09/15/18 16:32 16:44 00:10 WBC RBC Hgb Hct MCV MCH MCHC RDW Plt Count Neut % (Auto) Lymph % (Auto) [place] % (Auto) Eos % (Auto) Baso % (Auto) Lymph # (Auto) [place] # (Auto) Eos # (Auto) Baso # (Auto) Absolute Neuts (auto) Neutrophils % (Manual) Lymphocytes % (Manual) Monocytes % (Manual) Toxic Granulation Platelet Evaluation Hypochromasia Rouleaux PT INR APTT pO2 25 L 49 VBG pH 7.30 L 7.34 VBG pCO2 59.0 55.0 VBG HCO3 29.0 H 29.7 H VBG Total CO2 30.8 H 31.4 H VBG O2 Sat (Calc) 37.8 L 82.2 H VBG Base Excess 1.2 2.6 H VBG Potassium 4.1 4.1 Glucose 265 H 281 H Lactate 3.8 H 2.9 H FiO2 21.0 21.0 Crit Value Called To leilani Huggins md furnace door tender Crit Value Called By Barbara dill breast puller [facility] Blood Gas Notified Time 1658 33 Sodium 138.0 142.0 Potassium Chloride 100.0 104.0 Carbon Dioxide Anion Gap BUN Creatinine Est GFR ( Amer) Est GFR (Non-Af Amer) POC Glucose (mg/dL) Random Glucose Calcium Phosphorus Magnesium Total Bilirubin AST ALT Alkaline Phosphatase Ammonia Total Protein Albumin Globulin Albumin/Globulin Ratio Venous Blood Potassium 4.1 4.1 Blood Type O POSITIVE Antibody Screen Negative Crossmatch See Detail BBK History Checked Patient has bt 09/15/18 09/15/18 09/15/18 00:10 00:10 07:00 WBC 8.5 RBC 3.74 Hgb 9.9 L 8.3 L Hct 34.9 L 28.9 L MCV 77.3 L MCH 22.2 L MCHC 28.7 L RDW 20.7 H Plt Count 42 L* Neut % (Auto) 85.6 H Lymph % (Auto) 9.7 L [place] % (Auto) 4.6 Eos % (Auto) 0.1 L Baso % (Auto) 0.0 Lymph # (Auto) 0.8 L [place] # (Auto) 0.4 Eos # (Auto) 0.0 Baso # (Auto) 0.00 Absolute Neuts (auto) 7.25 H Neutrophils % (Manual) Lymphocytes % (Manual) Monocytes % (Manual) Toxic Granulation Platelet Evaluation Low Hypochromasia Rouleaux PT INR APTT pO2 VBG pH VBG pCO2 VBG HCO3 VBG Total CO2 VBG O2 Sat (Calc) VBG Base Excess VBG Potassium Glucose Lactate FiO2 Crit Value Called To Crit Value Called By Blood Gas Notified Time Sodium Potassium Chloride Carbon Dioxide Anion Gap BUN Creatinine Est GFR ( Amer) Est GFR (Non-Af Amer) POC Glucose (mg/dL) Random Glucose Calcium Phosphorus Magnesium Total Bilirubin AST ALT Alkaline Phosphatase Ammonia < 9 L Total Protein Albumin Globulin Albumin/Globulin Ratio Venous Blood Potassium Blood Type Antibody Screen Crossmatch BBK History Checked 09/15/18 09/15/18 07:00 13:20 WBC RBC Hgb Hct MCV MCH MCHC RDW Plt Count Neut % (Auto) Lymph % (Auto) [place] % (Auto) Eos % (Auto) Baso % (Auto) Lymph # (Auto) [place] # (Auto) Eos # (Auto) Baso # (Auto) Absolute Neuts (auto) Neutrophils % (Manual) Lymphocytes % (Manual) Monocytes % (Manual) Toxic Granulation Platelet Evaluation Hypochromasia Rouleaux PT INR APTT pO2 VBG pH VBG pCO2 VBG HCO3 VBG Total CO2 VBG O2 Sat (Calc) VBG Base Excess VBG Potassium Glucose Lactate FiO2 Crit Value Called To Crit Value Called By Blood Gas Notified Time Sodium 140 Potassium 3.8 Chloride 101 Carbon Dioxide 27 Anion Gap 16 BUN 53 H Creatinine 2.9 H Est GFR ( Amer) 27 Est GFR (Non-Af Amer) 22 POC Glucose (mg/dL) 232 H Random Glucose 222 H Calcium 7.9 L Phosphorus 4.2 Magnesium 2.0 Total Bilirubin 0.4 AST 25 ALT 21 Alkaline Phosphatase 123 Ammonia Total Protein 5.4 L Albumin 2.3 L Globulin 3.1 Albumin/Globulin Ratio 0.8 L Venous Blood Potassium Blood Type Antibody Screen Crossmatch BBK History Checked Radiology Impressions: Radiology Impressions Abdomen/Pelvis CT 09/14/18 16:01 IMPRESSION: Severely limited study as above. Bilateral pleural effusions and associated consolidations as well as patchy consolidation involving the right middle and lower lobes. Extensive atherosclerotic calcifications of severely aneurysmal abdominal aorta. 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 Suboptimal visualization of bowel loops. Extensive diverticulosis. Abdominal and pelvic ascites. Innumerable bilateral renal cysts of the nikolski kidneys consistent with polycystic kidney disease. Hydronephrosis of the transplanted right lower quadrant kidney. Heterogeneous appearance of the liver with innumerable hypodensities, possibly tiny cysts or hemangiomas. Ill-defined hypodense region within the hepatic dome spanning approximately 16 x 10 mm, indeterminate. Urinary bladder appears thick walled; correlate with urinalysis. Additional findings as above. Angiography CT 09/15/18 07:54 IMPRESSION: GI Bleed Scan Nuclear Medicine 09/15/18 09:00 IMPRESSION: No evidence of active gastrointestinal bleeding. EKG/Cardiology Studies: Cardiology / EKG Studies 09/14/18 15:53 ELECTROCARDIOGRAM Stat Comment: Reason For Exam: rr Critical Care Progress Note - Nutrition Nutrition: Nutrition Category Date Time Status NPO Diet [DIET] Diets 09/14/18 Breakfast Ordered Attending/Attestation - Attestation I have personally seen and examined this patient.: Yes I have fully participated in the care of the patient.: Yes I have reviewed all pertinent clinical information: Yes Notes (Text): 09/15/18 14:[address] Stockton note
--- NOTE | 2018-09-15 13:07 | CT ---
PROCEDURE: CT Angiography Chest, Abdomen and Pelvis with and without intravenous contrast HISTORY: aorto-GI fistula COMPARISON: Doppler ultrasound 02/27/2017 TECHNIQUE: Contiguous axial images of the chest, abdomen and pelvis were obtained in the phase of aortic enhancement. A noncontrast enhanced CT of the chest was also obtained to evaluate for possible intramural thrombus. Coronal and sagittal reformats were generated. IV dose administered: 150 cc of Visipaque Radiation dose: Total exam DLP = 479.47 mGy-cm. This CT exam was performed using one or more of the following dose reduction techniques: Automated exposure control, adjustment of the mA and/or kV according to patient size, and/or use of iterative reconstruction technique. FINDINGS: CT ANGIOGRAPHY OF THE CHEST WITH & WITHOUT CONTRAST: AORTA (CHEST AND ABDOMEN): There is a chronic dissection of the abdominal aorta. This was identified on a previous ultrasound from 2016. There are no prior contrast-enhanced CT studies for comparison. The celiac and SMA are patent There is a large aneurysm extending into the pelvis measuring 7.8 x 9.2 cm. There is no evidence of an aortic fistula. CT ANGIOGRAPHY OF THE ABDOMEN AND PELVIS WITH CONTRAST: LIVER: Unremarkable. No gross lesion or ductal dilatation. GALLBLADDER AND BILE DUCTS: Unremarkable. PANCREAS: Unremarkable. No gross lesion or ductal dilatation. SPLEEN: Unremarkable. ADRENALS: Unremarkable. No mass. KIDNEYS AND URETERS: Large polycystic kidneys. Transplant kidney in the right lower quadrant VASCULATURE: Unremarkable. No aortic aneurysm. Aortic calcification STOMACH AND BOWEL: Unremarkable. No obstruction. No gross mural thickening. No evidence of fistula APPENDIX: Normal appendix. PERITONEUM: Unremarkable. No free fluid. No free air. LYMPH NODES: Unremarkable. No enlarged lymph nodes. BLADDER: Unremarkable. REPRODUCTIVE: Unremarkable. BONES: No acute fracture. OTHER FINDINGS: None. IMPRESSION: There is a chronic dissection of the abdominal aorta. This was identified on a previous ultrasound from 2016. There are no prior contrast-enhanced CT studies for comparison. The celiac and SMA are patent There is a large aneurysm extending into the pelvis measuring 7.8 x 9.2 cm. There is no evidence of an aortic fistula.
--- NOTE | 2018-09-15 13:15 | NM ---
Date of service: 09/15/2018 PROCEDURE: Nuclear medicine gastrointestinal bleeding scan. HISTORY: bloody bowel movement -bright red blood COMPARISON: CT scan same day TECHNIQUE: 4ccof patient blood was withdrawn and mixed with 20.3mCi of technetium ultra tagged. Images of the abdomen and pelvis were obtained in the anterior and posterior projection at 1 min intervals over a period of 45 min. FINDINGS: No abnormal extravasation of tracer was observed throughout the exam to indicate active bleeding within or outside the gastrointestinal tract. Physiologic activity was seen in the heart, liver, spleen and blood vessels. There was motion artifact on the study. The aortic dissection seen on CT is also demonstrated. IMPRESSION: No evidence of active gastrointestinal bleeding.
--- NOTE | 2018-09-15 15:16 | PN ---
DATE: 09/15/2018 HISTORY: The patient is a 67-year-old male who had a GI bleed well in the TCU. He was transferred to the ICU for continued followup. His past medical history includes end-stage renal disease. He is status post kidney transplant which has failed in the past. In addition is sepsis, had his aortic and mitral valves ruled out for vegetations with a SUHAIL. His bacteremia was treated with antibiotics. In addition, he has a triple A which had been followed up with no need for surgery at this time. Currently, the patient is in no acute distress. PHYSICAL EXAMINATION: VITAL SIGNS: Stable. Heart rate is approximately 100. NECK: Negative JVD. LUNGS: Decreased breath sounds. HEART: Reveals a 2/6 systolic ejection murmur. EXTREMITIES: Without edema. LABORATORY DATA: Hemoglobin is 8.3. White count is normal. BUN and creatinine is 53 and 2.9. IMPRESSION: 1. End-stage renal disease. 2. Diabetes mellitus. 3. Aortic valve sclerosis. 4. History of septicemia. 5. Gastrointestinal bleed. 6. Anemia. PLAN: Given these findings, the patient is hemodynamically stable for his planned GI workup today. Carlos Shane MD
--- NOTE | 2018-09-15 15:22 | CARD ---
APPROVED REPORT Date of service: 09/14/2018 EKG Measurement Heart [id number] <Conclusion> Sinus tachycardia Possible Left atrial enlargement Low voltage complexes Abnormal ECG
--- NOTE | 2018-09-15 15:38 | CP.PCM.APN ---
Subjective - Date & Time of Evaluation Date of Evaluation: 09/15/18 Time of Evaluation: 12:05 - Subjective Subjective: pt seen and examined at bedside, pt with family ,pt returning from testing in [facility] Review of Systems - Constitutional Constitutional: Fatigue, Malaise Objective - Vital Signs/Intake and Output Vital Signs (last 24 hours): Temp Pulse Resp BP Pulse Ox 98.2 F 100 H 20 132/101 H 97 09/15/18 05:56 09/15/18 06:48 09/15/18 06:48 09/15/18 06:00 09/14/18 21:26 - Medications Medications: Current Medications Acetaminophen (Tylenol 325mg Tab) 650 mg PO Q4H PRN PRN Reason: temp > 99.5F Acetaminophen (Tylenol 325mg Tab) 650 mg PO Q6 PRN PRN Reason: TEMP>=99.5F Acetaminophen (Tylenol 650 Mg Supp) 650 mg RC Q6H PRN PRN Reason: TEMP>=99.5F Atorvastatin Calcium (Lipitor) 10 mg PO DIN [facility] Cyproheptadine HCl (Periactin) 4 mg PO BID [place] Ezetimibe (Zetia) 10 mg PO DAILY [place] Famotidine (Pepcid) 40 mg PO HS [facility] Last Admin: 09/14/18 21:58 Dose: 40 mg Pantoprazole Sodium (Protonix 40mg Ivpb) 40 mg in 100 mls @ 20 mls/hr IVPB .Q5H [facility] Last Admin: 09/15/18 08:14 Dose: 20 mls/hr Sodium Chloride (Sodium Chloride 0.9%) 500 mls @ 10 mls/hr IV .Q24H [facility] Last Admin: 09/14/18 17:18 Dose: 10 mls/hr Ceftriaxone Sodium (Rocephin 1 Gram Ivpb) 1 gm in 100 mls @ 100 mls/hr IVPB DAILY [facility]; Protocol Insulin Human Regular (Humulin R Low) 0 units SC ACHS [facility]; Protocol Last Admin: 09/15/18 14:58 Dose: Not Given Levalbuterol HCl (Xopenex) 0.63 mg IH [id number] [place] Last Admin: 09/15/18 13:28 Dose: 0.63 mg Lidocaine (Lidoderm) 1 ea TD DAILY [facility] Morphine Sulfate (Morphine) 1 mg IVP Q8H PRN PRN Reason: Pain, severe (8-10) Ondansetron HCl (Zofran Inj) 4 mg IVP Q4H PRN PRN Reason: Nausea/Vomiting Prednisone (Prednisone Tab) 5 mg PO BRK [facility] Last Admin: 09/15/18 08:05 Dose: Not Given - Labs Labs: 09/15/18 07:00 09/15/18 07:00 PT 14.7 SECONDS (9.4-12.5) H 09/14/18 16:30 INR 1.32 09/14/18 16:30 APTT 37.8 Seconds (26.9-38.3) 09/14/18 16:30 - Constitutional Appears: Non-toxic, Cachectic, Chronically Ill - Head Exam Head Exam: NORMOCEPHALIC - Respiratory Exam Respiratory Exam: Decreased Breath Sounds, NORMAL BREATHING PATTERN - Cardiovascular Exam Cardiovascular Exam: +S1, +S2 - Neurological Exam Neurological Exam: Awake Additional comments: [place] - Psychiatric Exam Psychiatric exam: Normal Mood - Skin Skin Exam: Dry, Intact Assessment and Plan - Assessment and Plan (Free Text) Plan: 67 yr olf AA male with pmh sig for infrarenal AAA, ESRD on HD, DM, extensice diverticulosis admitted from TCU where he was dc to on last now admitted with large bloody bm now undergoing GI eval and cardiology eval Pt with ct abd and bleeding scan ordered. pt for platelet transfusion today pt continues of IV Protonix drip will continue to monitor clinical course. BPCI/TIC - BPCIA/TIC Educated pt/family on BPCIA/CIR/Med to Bed Programs: N/A Flyers given, including [facility] Beneficiary letter: N/A Pt/family verbalized understanding & agreed to program: N/A
[2018-09-15 17:26] LABS: PH,URINE 6.5 (4.7-8.0); URINE BILIRUBIN NEGATIVE (NEGATIVE); URINE BLOOD NEGATIVE (NEGATIVE); URINE GLUCOSE (UA) 250 mg/dL (NEGATIVE); URINE LEUKOCYTE ESTERASE TRACE Leu/uL (NEGATIVE); URINE PROTEIN 100 mg/dL (<30 mg/dL); URINE UROBILINOGEN 0.2 E.U./dL (<1 E.U./dL)
[2018-09-15 17:27] LABS: URINE APPEARANCE CLEAR (CLEAR); URINE COLOR YELLOW (YELLOW)
--- NOTE | 2018-09-15 20:43 | CP.PCM.CON ---
History of Present Illness - History of Present Illness History of Present Illness: 67 year old male with a history of of polycystic kidney disease complicated by ESRD s/p renal transplant, currently on HD, AAA awaiting repair, chronic anemia, recently treated for urosepsis, DIC, thrombocytopenia and anemia, admitted from TCU with GI bleeding and hypotension. The patient is well known to me and had been on intermittent iron and Procrit prior to restarting dialysis. He was noted to have a blood bowel movement in TCU with hypotension and transferred to ICU. He is s/p platelet and FFP transfusion. Past medical history: polycystic kidney disease, renal transplant, CKD, AAA, anemia Past surgical history: Renal transplant, Aortic valve replacement Family history: Denies hematologic and oncologic problems Social history: Denies tobacco, alcohol, and illicit drug use. Allergies: NKA Review of systems: All remaining review of systems including HEENT, cardiovascular, respiratory, gastrointestinal, genitourinary, musculoskeletal, dermatologic, neurologic, and psychiatric are negative unless mentioned in the HPI. Past Patient History - Infectious Disease Hx of Infectious Diseases: None - Past Medical History & Family History Past Medical History?: Yes - Past Social History Smoking Status: Former Smoker - CARDIAC Hx Cardiac Disorders: Yes (CAD, Aortic valve replacement.) Other/Comment: triple A - PULMONARY Hx Respiratory Disorders: No - NEUROLOGICAL Hx Neurological Disorder: No - HEENT Hx HEENT Problems: Yes (wears glasses) - RENAL Hx Chronic Kidney Disease: Yes (stage iv) Hx Dialysis: Yes (left arm fistula) - ENDOCRINE/METABOLIC Hx Diabetes Mellitus Type 2: Yes - HEMATOLOGICAL/ONCOLOGICAL Hx Anemia: Yes (iron deficiency) - INTEGUMENTARY Hx Dermatological Problems: Yes Other/Comment: multiple skin discolorations ble - MUSCULOSKELETAL/RHEUMATOLOGICAL Hx Falls: Yes Hx Unsteady Gait: Yes - GASTROINTESTINAL Hx Gastrointestinal Disorders: Yes (poor appetite weight loss) - GENITOURINARY/GYNECOLOGICAL Hx Genitourinary Disorders: Yes - PSYCHIATRIC Hx Psychophysiologic Disorder: No Hx Substance Use: No - SURGICAL HISTORY Hx Kidney Transplant: Yes (R kidney) - ANESTHESIA Hx Anesthesia: Yes Hx Anesthesia Reactions: No Hx Malignant Hyperthermia: No Meds Allergies/Adverse Reactions: Allergies Allergy/AdvReac Type Severity Reaction Status Date / Time No Known Allergies Allergy Verified 09/11/18 22:07 - Medications Medications: Current Medications Acetaminophen (Tylenol 325mg Tab) 650 mg PO Q4H PRN PRN Reason: temp > 99.5F Acetaminophen (Tylenol 325mg Tab) 650 mg PO Q6 PRN PRN Reason: TEMP>=99.5F Acetaminophen (Tylenol 650 Mg Supp) 650 mg RC Q6H PRN PRN Reason: TEMP>=99.5F Atorvastatin Calcium (Lipitor) 10 mg PO DIN [facility] Cyproheptadine HCl (Periactin) 4 mg PO BID [facility] Ezetimibe (Zetia) 10 mg PO DAILY [facility] Famotidine (Pepcid) 40 mg PO HS [facility] Last Admin: 09/14/18 21:58 Dose: 40 mg Pantoprazole Sodium (Protonix 40mg Ivpb) 40 mg in 100 mls @ 20 mls/hr IVPB .Q5H [facility] Last Admin: 09/15/18 08:14 Dose: 20 mls/hr Sodium Chloride (Sodium Chloride 0.9%) 500 mls @ 10 mls/hr IV .Q24H [facility] Last Admin: 09/14/18 17:18 Dose: 10 mls/hr Ceftriaxone Sodium (Rocephin 1 Gram Ivpb) 1 gm in 100 mls @ 100 mls/hr IVPB DAILY [facility]; Protocol Insulin Human Regular (Humulin R Low) 0 units SC ACHS [facility]; Protocol Last Admin: 09/15/18 14:58 Dose: Not Given Levalbuterol HCl (Xopenex) 0.63 mg IH [id number] [facility] Last Admin: 09/15/18 19:31 Dose: 0.63 mg Lidocaine (Lidoderm) 1 ea TD DAILY [facility] Morphine Sulfate (Morphine) 1 mg IVP Q8H PRN PRN Reason: Pain, severe (8-10) Ondansetron HCl (Zofran Inj) 4 mg IVP Q4H PRN PRN Reason: Nausea/Vomiting Prednisone (Prednisone Tab) 5 mg PO BRK [facility] Last Admin: 09/15/18 08:05 Dose: Not Given Physical Exam - Constitutional Appears: Cachectic - Head Exam Head Exam: ATRAUMATIC - Eye Exam Eye Exam: Normal appearance - ENT Exam ENT Exam: Mucous Membranes Dry - Respiratory Exam Respiratory Exam: NORMAL BREATHING PATTERN - Cardiovascular Exam Cardiovascular Exam: +S1, +S2 - GI/Abdominal Exam GI & Abdominal Exam: Normal Bowel Sounds - Extremities Exam Extremities exam: Positive for: normal inspection - Neurological Exam Neurological exam: Altered - Psychiatric Exam Psychiatric exam: Flat Affect - Skin Skin Exam: Warm Results - Vital Signs Recent Vital Signs: Last Vital Signs Temp 98.2 F 09/15/18 05:56 Pulse 125 H 09/15/18 20:08 Resp 25 H 09/15/18 20:08 BP 173/88 H 09/15/18 20:00 Pulse Ox 97 09/14/18 21:26 - Labs Result Diagrams: 09/15/18 07:00 09/15/18 07:00 Labs: Laboratory Results - last 24 hr 09/14/18 09/15/18 09/15/18 16:32 00:10 00:10 WBC RBC Hgb Hct MCV MCH MCHC RDW Plt Count Neut % (Auto) Lymph % (Auto) Cannon % (Auto) Eos % (Auto) Baso % (Auto) Lymph # (Auto) Cannon # (Auto) Eos # (Auto) Baso # (Auto) Absolute Neuts (auto) Platelet Evaluation pO2 49 VBG pH 7.34 VBG pCO2 55.0 VBG HCO3 29.7 H VBG Total CO2 31.4 H VBG O2 Sat (Calc) 82.2 H VBG Base Excess 2.6 H VBG Potassium 4.1 Sodium 142.0 Chloride 104.0 Glucose 281 H Lactate 2.9 H FiO2 21.0 Crit Value Called To Gary craig rn ccu Crit Value Called By Soraida Blood Gas Notified Time 33 Potassium Carbon Dioxide Anion Gap BUN Creatinine Est GFR ( Amer) Est GFR (Non-Af Amer) POC Glucose (mg/dL) Random Glucose Calcium Phosphorus Magnesium Total Bilirubin AST ALT Alkaline Phosphatase Ammonia < 9 L Total Protein Albumin Globulin Albumin/Globulin Ratio Venous Blood Potassium 4.1 Urine Color Urine Appearance Urine pH Ur Specific [place] Urine Protein Urine Glucose (UA) Urine Ketones Urine Blood Urine Nitrate Urine Bilirubin Urine Urobilinogen Ur Leukocyte Esterase Urine RBC Urine WBC Ur Epithelial Cells Blood Type O POSITIVE Antibody Screen Negative Crossmatch See Detail BBK History Checked Patient has bt 09/15/18 09/15/18 09/15/18 00:10 07:00 07:00 WBC 8.5 RBC 3.74 Hgb 9.9 L 8.3 L Hct 34.9 L 28.9 L MCV 77.3 L MCH 22.2 L MCHC 28.7 L RDW 20.7 H Plt Count 42 L* Neut % (Auto) 85.6 H Lymph % (Auto) 9.7 L Cannon % (Auto) 4.6 Eos % (Auto) 0.1 L Baso % (Auto) 0.0 Lymph # (Auto) 0.8 L Cannon # (Auto) 0.4 Eos # (Auto) 0.0 Baso # (Auto) 0.00 Absolute Neuts (auto) 7.25 H Platelet Evaluation Low pO2 VBG pH VBG pCO2 VBG HCO3 VBG Total CO2 VBG O2 Sat (Calc) VBG Base Excess VBG Potassium Sodium 140 Chloride 101 Glucose Lactate FiO2 Crit Value Called To Crit Value Called By Blood Gas Notified Time Potassium 3.8 Carbon Dioxide 27 Anion Gap 16 BUN 53 H Creatinine 2.9 H Est GFR ( Amer) 27 Est GFR (Non-Af Amer) 22 POC Glucose (mg/dL) Random Glucose 222 H Calcium 7.9 L Phosphorus 4.2 Magnesium 2.0 Total Bilirubin 0.4 AST 25 ALT 21 Alkaline Phosphatase 123 Ammonia Total Protein 5.4 L Albumin 2.3 L Globulin 3.1 Albumin/Globulin Ratio 0.8 L Venous Blood Potassium Urine Color Urine Appearance Urine pH Ur Specific [place] Urine Protein Urine Glucose (UA) Urine Ketones Urine Blood Urine Nitrate Urine Bilirubin Urine Urobilinogen Ur Leukocyte Esterase Urine RBC Urine WBC Ur Epithelial Cells Blood Type Antibody Screen Crossmatch BBK History Checked 09/15/18 09/15/18 13:20 17:15 WBC RBC Hgb Hct MCV MCH MCHC RDW Plt Count Neut % (Auto) Lymph % (Auto) Cannon % (Auto) Eos % (Auto) Baso % (Auto) Lymph # (Auto) Cannon # (Auto) Eos # (Auto) Baso # (Auto) Absolute Neuts (auto) Platelet Evaluation pO2 VBG pH VBG pCO2 VBG HCO3 VBG Total CO2 VBG O2 Sat (Calc) VBG Base Excess VBG Potassium Sodium Chloride Glucose Lactate FiO2 Crit Value Called To Crit Value Called By Blood Gas Notified Time Potassium Carbon Dioxide Anion Gap BUN Creatinine Est GFR ( Amer) Est GFR (Non-Af Amer) POC Glucose (mg/dL) 232 H Random Glucose Calcium Phosphorus Magnesium Total Bilirubin AST ALT Alkaline Phosphatase Ammonia Total Protein Albumin Globulin Albumin/Globulin Ratio Venous Blood Potassium Urine Color Yellow Urine Appearance Clear Urine pH 6.5 Ur Specific [place] 1.020 Urine Protein 100 H Urine Glucose (UA) 250 H Urine Ketones Negative Urine Blood Negative Urine Nitrate Negative Urine Bilirubin Negative Urine Urobilinogen 0.2 Ur Leukocyte Esterase Trace H Urine RBC TEST NOT PERFORMED Urine WBC 2 - 5 Ur Epithelial Cells 6 - 8 H Blood Type Antibody Screen Crossmatch BBK History Checked Assessment & Plan (1) Thrombocytopenia Assessment and Plan: rule out DIC; check fibrinogen prior immunosuppression ? infection s/p 1 bag platelets Status: Acute (2) Anemia Assessment and Plan: GI blood loss anemia of CKD on MARK transfusion support PRN Status: Chronic (3) Coagulopathy Assessment and Plan: mild rule out DIC nutritional component s/p FFP consider vit K Thank you for this interesting consult. Status: Acute
--- NOTE | 2018-09-15 21:34 | CP.PCM.PN ---
Subjective - Date & Time of Evaluation Date of Evaluation: 09/15/18 Time of Evaluation: 21:13 - Subjective Subjective: Patient was seen as he pulled out TLC and needs intravenous access for platelet/blood transfusion. CXR following insertion of TLC was followed up, no pneumothorax noted. He has been confused. It was also requested to apply restraint order to avoid IV access dusrupted. Patient offers no complaints. Medical record was reviewed. This 67 year old AA male was admitted with lethargy , diarrhoea, GI bleeding. Has PMH of DM II,HTN, ESRD on HD, renal transplant, aortic stenosis, infra renal AAA,former smoker. Objective - Vital Signs/Intake and Output Vital Signs (last 24 hours): Temp Pulse Resp BP Pulse Ox 98.3 F 82 22 173/88 H 97 09/15/18 12:00 09/15/18 20:09 09/15/18 20:09 09/15/18 20:00 09/14/18 21:26 Intake and Output: 09/15/18 09/16/18 18:59 06:59 Intake Total 100 Output Total 200 Balance -100 - Medications Medications: Current Medications Acetaminophen (Tylenol 325mg Tab) 650 mg PO Q4H PRN PRN Reason: temp > 99.5F Acetaminophen (Tylenol 325mg Tab) 650 mg PO Q6 PRN PRN Reason: TEMP>=99.5F Acetaminophen (Tylenol 650 Mg Supp) 650 mg RC Q6H PRN PRN Reason: TEMP>=99.5F Atorvastatin Calcium (Lipitor) 10 mg PO DIN [facility] Cyproheptadine HCl (Periactin) 4 mg PO BID [facility] Ezetimibe (Zetia) 10 mg PO DAILY [facility] Famotidine (Pepcid) 40 mg PO HS [facility] Last Admin: 09/14/18 21:58 Dose: 40 mg Pantoprazole Sodium (Protonix 40mg Ivpb) 40 mg in 100 mls @ 20 mls/hr IVPB .Q5H [facility] Last Admin: 09/15/18 08:14 Dose: 20 mls/hr Sodium Chloride (Sodium Chloride 0.9%) 500 mls @ 10 mls/hr IV .Q24H [facility] Last Admin: 09/14/18 17:18 Dose: 10 mls/hr Ceftriaxone Sodium (Rocephin 1 Gram Ivpb) 1 gm in 100 mls @ 100 mls/hr IVPB DAILY [facility]; Protocol Insulin Human Regular (Humulin R Low) 0 units SC ACHS [facility]; Protocol Last Admin: 09/15/18 14:58 Dose: Not Given Levalbuterol HCl (Xopenex) 0.63 mg IH [id number] [facility] Last Admin: 09/15/18 19:31 Dose: 0.63 mg Lidocaine (Lidoderm) 1 ea TD DAILY [facility] Morphine Sulfate (Morphine) 1 mg IVP Q8H PRN PRN Reason: Pain, severe (8-10) Ondansetron HCl (Zofran Inj) 4 mg IVP Q4H PRN PRN Reason: Nausea/Vomiting Prednisone (Prednisone Tab) 5 mg PO BRK [facility] Last Admin: 09/15/18 08:05 Dose: Not Given - Labs Labs: 09/15/18 07:00 09/15/18 07:00 PT 14.7 SECONDS (9.4-12.5) H 09/14/18 16:30 INR 1.32 09/14/18 16:30 APTT 37.8 Seconds (26.9-38.3) 09/14/18 16:30 - Constitutional Appears: Well, No Acute Distress - Head Exam Head Exam: ATRAUMATIC, NORMAL INSPECTION, NORMOCEPHALIC Additional comments: Cachexic - Eye Exam Eye Exam: Normal appearance - ENT Exam ENT Exam: Normal External Ear Exam - Neck Exam Neck Exam: Normal Inspection Additional comments: Dressing at TLC insertion site is dry and clean. - Respiratory Exam Respiratory Exam: NORMAL BREATHING PATTERN - Cardiovascular Exam Cardiovascular Exam: absent: JVD - GI/Abdominal Exam GI & Abdominal Exam: absent: Distended - Rectal Exam Rectal Exam: Deferred - Exam Additional comments: Deferred. - Extremities Exam Extremities Exam: Normal Inspection - Back Exam Back Exam: NORMAL INSPECTION - Neurological Exam Neurological Exam: Altered, Motor Sensory Deficit - Psychiatric Exam Psychiatric exam: Normal Affect, Normal Mood - Skin Skin Exam: Normal Color Assessment and Plan - Assessment and Plan (Free Text) Assessment: Altered mental status. Agitation. Lower GI bleeding. Anemia. ESRD. HTN. DM II. Cachexia. Poor venous access. Plan: # 20 angiocath was inserted in a superficial vein in left frontal scalp. Will apply bilateral wrist restraint Continue present management.
--- NOTE | 2018-09-16 00:16 | CON ---
DATE: 09/15/2018 HISTORY OF PRESENT ILLNESS: This is a 67-year-old gentleman with history of severe atherosclerotic disease, large AAA which was conservatively followed up as an outpatient, status post renal allograft transplant in 2006 which, however, later failed and the patient was put back on dialysis for end-stage renal disease, the patient is on prednisone and tacrolimus, diabetes mellitus type 2 and hypertension, severe aortic stenosis, status post TAVR, who was admitted this time with change in mental status, persistent diarrhea with bright red blood per rectum. The patient was found to be hypotensive, and in light of constellation of above symptoms, Rapid Response was called and the patient was transferred to ICU. He was found to have blood pressure 89/67 and heart rate 118. He not was fluid resuscitated with catholic of his hemodynamics and drop in lactic acid level from about 3.8 to 2.9. His hemoglobin dropped to 8.3 from 9.9 over a 7-hour period. The patient denies chest pain, shortness of breath, fever, nausea, vomiting, abdominal pain, tingling, swelling, chills, or dizziness. PAST MEDICAL HISTORY: Status post failed renal allograft in 2006; end-stage renal disease, on dialysis Saturday, Saturday, Saturday; diabetes mellitus type 2; hypertension; unrepaired infrarenal AAA; severe aortic stenosis, status post TAVR. FAMILY HISTORY: Noncontributory. SOCIAL HISTORY: The patient is an ex-smoker. No alcohol or illicit drug abuse currently. ALLERGIES: NKDA. REVIEW OF SYSTEMS: Review of 12-organ system other than mentioned in history of present illness is negative. CURRENT MEDICATIONS: Lipitor, Tylenol p.r.n., Periactin, Zetia, Pepcid, regular insulin sliding scale per protocol, Xopenex, morphine p.r.n., prednisone, Protonix, ceftriaxone, tacrolimus, Zosyn received yesterday. PHYSICAL EXAMINATION: VITAL SIGNS: Heart rate 100, blood pressure 123/90, respiratory rate 20, temperature 98.2. HEENT AND NECK: Head and neck atraumatic. LUNGS: Clear to auscultation bilaterally. HEART: Regular rate and rhythm. S1, S2 normal. ABDOMEN: Soft with substantially reduced adipose layer. There is some hard mass palpated in the left mesogastrium. There is old scar from renal transplant on the right side. Abdomen soft, nontender, without any peritoneal signs. MUSCULOSKELETAL: Some muscle wasting. No C/C/E. NEUROLOGIC: The patient moves all extremities spontaneously. SKIN: Moist. PSYCHIATRIC: The patient is alert, awake, and oriented x3. LABORATORY DATA: WBC 8.5; hemoglobin 8.3, down from 9.9; platelet count 42. Sodium 140, potassium 3.8, chloride 101, carbon dioxide 27, BUN 53, creatinine 2.9, glucose 222. AST 25, ALT 21, total bilirubin 0.4. Ammonia level less than 9. VBG showed pH 7.34. Lactic acid 2.9, down from 3.8. INR 1.32. Abdominal and pelvic CAT scan without any contrast showed bilateral pleural effusion and associated consolidation as well as patchy consolidation involving the right middle and lower lobes, extensive atherosclerotic calcification of severe aneurysmal abdominal aorta, chronic appearing dissection of the infrarenal abdominal aorta, suboptimal visualization of bowel loops, extensive diverticulosis, abdominal and pelvic ascites, innumerable bilateral renal cysts of the [place] kidney consistent with polycystic kidney disease, hydronephrosis of the transplanted right lower quadrant kidney, heterogenous appearance of the liver with innumerable hypodensities, possibly tiny cyst or hemangiomas, ill-defined hypodense region within the hepatic dome, spanning approximately 16 x 10 mm, indeterminate, urinary bladder appears thick-walled, correlates with urinalysis. ASSESSMENT AND PLAN: This is a 67-year-old gentleman who presented with hemorrhagic shock secondary to what appears to be lower gastrointestinal bleed versus upper gastrointestinal bleed with rapid transit. The patient is scheduled to get GI bleeding scan. If not upper GI bleed with rapid transit, we need to rule out potential aortocolonic fistula, and CAT scan with IV contrast will be ordered with subsequent dialysis to remove the dye. Surgical service was also called for insight. Extensive diverticulosis visible on the CAT scan without IV contrast, also may be a source of bleeding. GI consult is on board. Presently, the patient is hemodynamically stable. We will continue with serial CBCs, two large bore peripheral IVs, IV fluids, n.p.o., and Protonix. GI consult, Nephrology consult, Surgical consult were also requested. I will continue to trend lactic acid level. I will check troponin level (myocardial ischemia whether due to primary cardiac event or secondary to mismatch ischemia, may require lower threshold for PRBC transfusion). We will maintain hemoglobin above 8. As the patient does not have leukocytosis or fever, I have low suspicion for ongoing sepsis as an etiology of his transient drop in blood pressure. We will get echocardiogram and EKG. We will continue to maintain euvolemia, euglycemia, normothermia, and oxygen saturation more than 90%. We will continue with DVT and GI prophylaxis. Addendum: CTA abdo/pelvis--no fistula. GI bleeding scan--negative ccm time 40 min Darren Stockton MD [facility]
[2018-09-16] MEDS: Levalbuterol 0.63 MG/3 ML Inhal Soln UD IH SCH ×4 (02:51→21:20)
[2018-09-16] MEDS: Pantoprazole 40mg/100mL NS 40 MG/100 ML BAG IVPB SCH ×3 (04:50→21:36)
--- NOTE | 2018-09-16 05:17 | CON ---
DATE: 09/15/2018 LOCATION: The patient is seen earlier today in room 129, bed 7. CHIEF COMPLAINT: Weakness times several days. HISTORY OF PRESENT ILLNESS: This is a 67-year-old male with a history of polycystic kidney disease, renal transplant in 2006, diabetes mellitus, aortic valve replacement for aortic stenosis, large unrepaired AAA, and end-stage renal disease, on hemodialysis who was being treated in acute care, was transferred to Transitional Care and the patient was discovered to have Klebsiella bacteremia secondary to Klebsiella urine and was being treated with ceftriaxone and the patient was in the Transitional Care and the patient did have a SUHAIL, which was negative for any vegetations. The patient was transferred to Coronary Care Unit. The patient was transferred from the Transitional Care. He had diarrhea and found to have large bloody movements with clots. Admitted to the Intensive Care Unit because of large bloody bowel movements and clots. Dr. Stockton's note is reviewed. PAST MEDICAL HISTORY: Significant for polycystic kidney disease and renal transplant, diabetes, aortic valve replacement, aortic stenosis, large unrepaired AAA, and end-stage renal disease, on hemodialysis. PAST SURGICAL HISTORY: Significant for renal transplant. ALLERGIES: THE PATIENT HAS NO KNOWN ALLERGIES. MEDICATIONS: REVIEWED. REVIEW OF SYSTEMS: A 12-point review of systems performed. PHYSICAL EXAMINATION: VITAL SIGNS: The patient's temperature is 98, blood pressure is 160/100, respiratory rate of 25, and heart rate of 111. HEENT: Unremarkable. NECK: Supple. LUNGS: Decreased breath sounds. HEART: Normal S1 and S2. ABDOMEN: Soft and nontender. LABORATORY DATA: Reveals a white count of 9, hemoglobin of 10, and platelets 67,000. Chemistry reveals BUN of 48, creatinine 2.8, and alk phos is 172. Urinalysis is noted. Microbiology reveals blood cultures are negative. Review of microbiology; blood cultures from 09/03/2018 were positive for Klebsiella. REVIEW OF ORDERS: Reveals the patient is on ceftriaxone. ASSESSMENT AND PLAN: He is a 67-year-old male with Klebsiella bacteremia secondary to Klebsiella urinary tract infection and now with gastrointestinal bleed. We will continue with ceftriaxone and we will check on repeat final culture results in this patient with polycystic kidney disease, end-stage renal disease, on hemodialysis, renal transplant in 2006, diabetes mellitus, aortic stenosis with aortic valve replacement and large unrepaired abdominal aortic aneurysm. Bishop Squires MD
[2018-09-16 06:25] LABS: INR 1.34; PARTIAL THROMBOPLASTIN TIME 34.2 Seconds (26.9-38.3); PROTHROMBIN TIME 15.1 SECONDS (9.4-12.5)
--- NOTE | 2018-09-16 07:04 | CP.CCUPN ---
<Georgi Gross - Last Filed: 09/16/18 11:01> CCU Subjective - Physician Review Events Since Last Encounter (Free Text): 09/16/18 07:00 Pt had midline placed which failed, central line was placed, pt pulled it out, an IV was placed for access Subjective (Free Text): 09/15/18 11:22 Pt seen and examined, no new complaints at this time 09/16/18 07:00 Pt seen adn examined, confused, denies chest pain or SOB CCU Objective - Vital Signs / Intake & Output Vital Signs (Last 4 hours): Vital Signs Temp Pulse Resp BP 09/16/18 04:32 97.8 F 108 H 23 148/91 H 09/16/18 04:00 101 H 09/16/18 03:12 105 H 09/16/18 03:11 109 H 36 H 09/16/18 03:10 103 H 20 09/16/18 03:09 104 H 15 09/16/18 03:08 109 H 16 09/16/18 03:07 105 H 18 09/16/18 03:06 106 H 20 09/16/18 03:05 104 H 21 09/16/18 03:04 105 H 29 H 09/16/18 03:03 105 H 22 09/16/18 03:02 104 H 20 09/16/18 03:01 107 H 22 Intake and Output (Last 8hrs): Intake & Output 09/15/18 09/16/18 09/16/18 22:59 06:59 14:59 Intake Total 100 1420 Output Total 200 Balance -100 1420 Weight 93 lb Intake: IV 100 810 Right Forearm 100 Scalp 810 Oral 0 0 Blood Product 610 Apheresis Platelets Acda 610 Lr Unit [id number] Output: Urine 200 Urine, Voided 200 Other: # Bowel Movements 0 0 - Physical Exam Head: Positive for: Atraumatic, Normocephalic Pupils: Positive for: PERRL Extroacular Muscles: Positive for: EOMI Conjunctiva: Positive for: Normal Mouth: Positive for: Moist Mucous Membranes Neck: Positive for: Normal Range of Motion. Negative for: Meningeal Signs, MIDLINE TENDERNESS Respiratory/Chest: Positive for: Clear to Auscultation, Good Air Exchange. Negative for: Respiratory Distress, Accessory Muscle Use Cardiovascular: Positive for: Regular Rate and Rhythm, Normal S1, S2. Negative for: Murmurs Abdomen: Negative for: Tenderness, Distention, Peritoneal Signs Rectal: Positive for: Normal Rectal Tone, Other (Guaiac positive. Maroon Stool). Negative for: Rectal Tenderness, Hemorrhoids, Fissures, Nodule/Mass/Lesions Back: Positive for: Normal Inspection. Negative for: CVA Tenderness, Midline Tenderness Upper Extremity: Positive for: Normal Inspection, NORMAL PULSES, Neurovascularly Intact, Capillary Refill < 2s, Other (LUE fistula w/ good bruit and good thrill, no erythema or crepitus noted overlaying). Negative for: Cyanosis, Edema, Tenderness, Erythema Lower Extremity: Positive for: Normal Inspection, NORMAL PULSES, Neurovascularly Intact. Negative for: Edema Neurological: Positive for: GCS=15, CN II-XII Intact, Speech Normal, Motor Func Grossly Intact Skin: Positive for: Warm, Dry, Normal Color. Negative for: Rashes Psychiatric: Positive for: Alert, Oriented x 3, Normal Insight, Normal Concentration - Medications Active Medications: Active Medications Generic Name Dose Route Start Last Admin Trade Name Freq PRN Reason Stop Dose Admin Acetaminophen 650 mg 09/14/18 19:20 Tylenol 325mg Tab PO Q4H PRN temp > 99.5F Acetaminophen 650 mg 09/15/18 08:40 Tylenol 325mg Tab PO Q6 PRN TEMP>=99.5F Acetaminophen 650 mg 09/15/18 08:40 Tylenol 650 Mg Supp RC Q6H PRN TEMP>=99.5F Atorvastatin Calcium 10 mg 09/15/18 17:00 Lipitor PO DIN [place] Cyproheptadine HCl 4 mg 09/15/18 10:00 Periactin PO BID [place] Ezetimibe 10 mg 09/15/18 10:00 Zetia PO DAILY [place] Famotidine 40 mg 09/14/18 22:00 09/15/18 22:54 Pepcid PO 40 mg HS [place] Administration Pantoprazole Sodium 40 mg in 100 mls @ 20 mls/hr 09/14/18 16:00 09/16/18 0 4:50 Protonix 40mg Ivpb IVPB Not Given .Q5H [place] Sodium Chloride 500 mls @ 10 mls/hr 09/14/18 16:58 09/14/18 17:18 Sodium Chloride 0.9% IV 10 mls/hr .Q24H [place] Administration Ceftriaxone Sodium 1 gm in 100 mls @ 100 mls/hr 09/15/18 10:00 Rocephin 1 Gram Ivpb IVPB DAILY [facility] Protocol Insulin Human Regular 0 units 09/14/18 22:00 09/15/18 22:57 Humulin R Low SC Not Given ACHS [place] Protocol Levalbuterol HCl 0.63 mg 09/15/18 14:00 09/16/18 02:51 Xopenex IH 0.63 mg [id number] [place] Administration Lidocaine 1 ea 09/15/18 10:00 Lidoderm TD DAILY [place] Morphine Sulfate 1 mg 09/14/18 19:43 Morphine IVP Q8H PRN Pain, severe (8-10) Ondansetron HCl 4 mg 09/15/18 08:40 Zofran Inj IVP Q4H PRN Nausea/Vomiting Prednisone 5 mg 09/15/18 08:00 09/15/18 08:05 Prednisone Tab PO Not Given BRK [place]NA - Patient Studies Lab Studies: Microbiology Studies 09/14/18 17:07 Blood Culture - Preliminary Blood NO GROWTH AFTER 24 HOURS 09/14/18 16:37 Blood Culture - Preliminary Blood NO GROWTH AFTER 24 HOURS Lab Studies 09/16/18 09/15/18 09/15/18 Range/Units 05:50 17:15 13:20 WBC (4.5-11.0) 10^3/uL RBC (3.5-6.1) 10^6/uL Hgb (14.0-18.0) g/dL Hct (42.0-52.0) % MCV (80.0-105.0) fl MCH (25.0-35.0) pg MCHC (31.0-37.0) g/dl RDW (11.5-14.5) % Plt Count (120.0-450.0) 10^3/uL Neut % (Auto) (50.0-68.0) % Lymph % (Auto) (22.0-35.0) % [place] % (Auto) (1.0-6.0) % Eos % (Auto) (1.5-5.0) % Baso % (Auto) (0.0-3.0) % Lymph # (Auto) (1.2-3.4) [place] # (Auto) (0.1-0.6) Eos # (Auto) (0.0-0.7) Baso # (Auto) (0.0-2.0) K/mm3 Absolute Neuts (auto) (1.4-6.5) Platelet Evaluation (NORMAL) PT 15.1 H (9.4-12.5) SECONDS INR 1.34 APTT 34.2 (26.9-38.3) Seconds Sodium (132-148) mmol/L Potassium (3.6-5.0) mmol/L Chloride (98-107) mmol/L Carbon Dioxide (21-33) mmol/L Anion Gap (10-20) BUN (7-21) mg/dL Creatinine (0.8-1.5) mg/dl Est GFR ( Amer) Est GFR (Non-Af Amer) POC Glucose (mg/dL) 232 H (65-110) mg/dL Random Glucose (70-110) mg/dL Calcium (8.4-10.5) mg/dL Phosphorus (2.5-4.5) mg/dL Magnesium (1.7-2.2) mg/dL Total Bilirubin (0.2-1.3) mg/dL AST (17-59) U/L ALT (7-56) U/L Alkaline Phosphatase (38-126) U/L Troponin I ng/mL Total Protein (5.8-8.3) g/dL Albumin (3.0-4.8) g/dL Globulin gm/dL Albumin/Globulin Ratio (1.1-1.8) Urine Color Yellow (YELLOW) Urine Appearance Clear (CLEAR) Urine pH 6.5 (4.7-8.0) Ur Specific [place] 1.020 (1.005-1.035) Urine Protein 100 H (<30 mg/dL) mg/dL Urine Glucose (UA) 250 H (NEGATIVE) mg/dL Urine Ketones Negative (NEGATIVE) mg/dL Urine Blood Negative (NEGATIVE) Urine Nitrate Negative (NEGATIVE) Urine Bilirubin Negative (NEGATIVE) Urine Urobilinogen 0.2 (<1 E.U./dL) E.U./dL Ur Leukocyte Esterase Trace H (NEGATIVE) Jackie/uL Urine RBC TEST NOT PERFORMED Urine WBC 2 - 5 (0-6) /hpf Ur Epithelial Cells 6 - 8 H (0-5) /hpf Blood Type Antibody Screen Crossmatch BBK History Checked 09/15/18 09/15/18 09/15/18 Range/Units 07:00 07:00 07:00 WBC 8.5 (4.5-11.0) 10^3/uL RBC 3.74 (3.5-6.1) 10^6/uL Hgb 8.3 L (14.0-18.0) g/dL Hct 28.9 L (42.0-52.0) % MCV 77.3 L (80.0-105.0) fl MCH 22.2 L (25.0-35.0) pg MCHC 28.7 L (31.0-37.0) g/dl RDW 20.7 H (11.5-14.5) % Plt Count 42 L* (120.0-450.0) 10^3/uL Neut % (Auto) 85.6 H (50.0-68.0) % Lymph % (Auto) 9.7 L (22.0-35.0) % [place] % (Auto) 4.6 (1.0-6.0) % Eos % (Auto) 0.1 L (1.5-5.0) % Baso % (Auto) 0.0 (0.0-3.0) % Lymph # (Auto) 0.8 L (1.2-3.4) [place] # (Auto) 0.4 (0.1-0.6) Eos # (Auto) 0.0 (0.0-0.7) Baso # (Auto) 0.00 (0.0-2.0) K/mm3 Absolute Neuts (auto) 7.25 H (1.4-6.5) Platelet Evaluation Low (NORMAL) PT (9.4-12.5) SECONDS INR APTT (26.9-38.3) Seconds Sodium 140 (132-148) mmol/L Potassium 3.8 (3.6-5.0) mmol/L Chloride 101 (98-107) mmol/L Carbon Dioxide 27 (21-33) mmol/L Anion Gap 16 (10-20) BUN 53 H (7-21) mg/dL Creatinine 2.9 H (0.8-1.5) mg/dl Est GFR ( Amer) 27 Est GFR (Non-Af Amer) 22 POC Glucose (mg/dL) (65-110) mg/dL Random Glucose 222 H (70-110) mg/dL Calcium 7.9 L (8.4-10.5) mg/dL Phosphorus 4.2 (2.5-4.5) mg/dL Magnesium 2.0 (1.7-2.2) mg/dL Total Bilirubin 0.4 (0.2-1.3) mg/dL AST 25 (17-59) U/L ALT 21 (7-56) U/L Alkaline Phosphatase 123 (38-126) U/L Troponin I 0.02 D ng/mL Total Protein 5.4 L (5.8-8.3) g/dL Albumin 2.3 L (3.0-4.8) g/dL Globulin 3.1 gm/dL Albumin/Globulin Ratio 0.8 L (1.1-1.8) Urine Color (YELLOW) Urine Appearance (CLEAR) Urine pH (4.7-8.0) Ur Specific [place] (1.005-1.035) Urine Protein (<30 mg/dL) mg/dL Urine Glucose (UA) (NEGATIVE) mg/dL Urine Ketones (NEGATIVE) mg/dL Urine Blood (NEGATIVE) Urine Nitrate (NEGATIVE) Urine Bilirubin (NEGATIVE) Urine Urobilinogen (<1 E.U./dL) E.U./dL Ur Leukocyte Esterase (NEGATIVE) Jackie/uL Urine RBC Urine WBC (0-6) /hpf Ur Epithelial Cells (0-5) /hpf Blood Type Antibody Screen Crossmatch BBK History Checked 09/14/18 Range/Units 16:32 WBC (4.5-11.0) 10^3/uL RBC (3.5-6.1) 10^6/uL Hgb (14.0-18.0) g/dL Hct (42.0-52.0) % MCV (80.0-105.0) fl MCH (25.0-35.0) pg MCHC (31.0-37.0) g/dl RDW (11.5-14.5) % Plt Count (120.0-450.0) 10^3/uL Neut % (Auto) (50.0-68.0) % Lymph % (Auto) (22.0-35.0) % [place] % (Auto) (1.0-6.0) % Eos % (Auto) (1.5-5.0) % Baso % (Auto) (0.0-3.0) % Lymph # (Auto) (1.2-3.4) [place] # (Auto) (0.1-0.6) Eos # (Auto) (0.0-0.7) Baso # (Auto) (0.0-2.0) K/mm3 Absolute Neuts (auto) (1.4-6.5) Platelet Evaluation (NORMAL) PT (9.4-12.5) SECONDS INR APTT (26.9-38.3) Seconds Sodium (132-148) mmol/L Potassium (3.6-5.0) mmol/L Chloride (98-107) mmol/L Carbon Dioxide (21-33) mmol/L Anion Gap (10-20) BUN (7-21) mg/dL Creatinine (0.8-1.5) mg/dl Est GFR ( Amer) Est GFR (Non-Af Amer) POC Glucose (mg/dL) (65-110) mg/dL Random Glucose (70-110) mg/dL Calcium (8.4-10.5) mg/dL Phosphorus (2.5-4.5) mg/dL Magnesium (1.7-2.2) mg/dL Total Bilirubin (0.2-1.3) mg/dL AST (17-59) U/L ALT (7-56) U/L Alkaline Phosphatase (38-126) U/L Troponin I ng/mL Total Protein (5.8-8.3) g/dL Albumin (3.0-4.8) g/dL Globulin gm/dL Albumin/Globulin Ratio (1.1-1.8) Urine Color (YELLOW) Urine Appearance (CLEAR) Urine pH (4.7-8.0) Ur Specific [place] (1.005-1.035) Urine Protein (<30 mg/dL) mg/dL Urine Glucose (UA) (NEGATIVE) mg/dL Urine Ketones (NEGATIVE) mg/dL Urine Blood (NEGATIVE) Urine Nitrate (NEGATIVE) Urine Bilirubin (NEGATIVE) Urine Urobilinogen (<1 E.U./dL) E.U./dL Ur Leukocyte Esterase (NEGATIVE) Jackie/uL Urine RBC Urine WBC (0-6) /hpf Ur Epithelial Cells (0-5) /hpf Blood Type O POSITIVE Antibody Screen Negative Crossmatch See Detail BBK History Checked Patient has bt Laboratory Results - last 24 hr 09/14/18 09/15/18 09/15/18 16:32 07:00 07:00 WBC 8.5 RBC 3.74 Hgb 8.3 L Hct 28.9 L MCV 77.3 L MCH 22.2 L MCHC 28.7 L RDW 20.7 H Plt Count 42 L* Neut % (Auto) 85.6 H Lymph % (Auto) 9.7 L [place] % (Auto) 4.6 Eos % (Auto) 0.1 L Baso % (Auto) 0.0 Lymph # (Auto) 0.8 L [place] # (Auto) 0.4 Eos # (Auto) 0.0 Baso # (Auto) 0.00 Absolute Neuts (auto) 7.25 H Platelet Evaluation Low PT INR APTT Sodium 140 Potassium 3.8 Chloride 101 Carbon Dioxide 27 Anion Gap 16 BUN 53 H Creatinine 2.9 H Est GFR ( Amer) 27 Est GFR (Non-Af Amer) 22 POC Glucose (mg/dL) Random Glucose 222 H Calcium 7.9 L Phosphorus 4.2 Magnesium 2.0 Total Bilirubin 0.4 AST 25 ALT 21 Alkaline Phosphatase 123 Troponin I Total Protein 5.4 L Albumin 2.3 L Globulin 3.1 Albumin/Globulin Ratio 0.8 L Urine Color Urine Appearance Urine pH Ur Specific [place] Urine Protein Urine Glucose (UA) Urine Ketones Urine Blood Urine Nitrate Urine Bilirubin Urine Urobilinogen Ur Leukocyte Esterase Urine RBC Urine WBC Ur Epithelial Cells Blood Type O POSITIVE Antibody Screen Negative Crossmatch See Detail BBK History Checked Patient has bt 09/15/18 09/15/18 09/15/18 07:00 13:20 17:15 WBC RBC Hgb Hct MCV MCH MCHC RDW Plt Count Neut % (Auto) Lymph % (Auto) [place] % (Auto) Eos % (Auto) Baso % (Auto) Lymph # (Auto) [place] # (Auto) Eos # (Auto) Baso # (Auto) Absolute Neuts (auto) Platelet Evaluation PT INR APTT Sodium Potassium Chloride Carbon Dioxide Anion Gap BUN Creatinine Est GFR ( Amer) Est GFR (Non-Af Amer) POC Glucose (mg/dL) 232 H Random Glucose Calcium Phosphorus Magnesium Total Bilirubin AST ALT Alkaline Phosphatase Troponin I 0.02 D Total Protein Albumin Globulin Albumin/Globulin Ratio Urine Color Yellow Urine Appearance Clear Urine pH 6.5 Ur Specific [place] 1.020 Urine Protein 100 H Urine Glucose (UA) 250 H Urine Ketones Negative Urine Blood Negative Urine Nitrate Negative Urine Bilirubin Negative Urine Urobilinogen 0.2 Ur Leukocyte Esterase Trace H Urine RBC TEST NOT PERFORMED Urine WBC 2 - 5 Ur Epithelial Cells 6 - 8 H Blood Type Antibody Screen Crossmatch BBK History Checked 09/16/18 05:50 WBC RBC Hgb Hct MCV MCH MCHC RDW Plt Count Neut % (Auto) Lymph % (Auto) [place] % (Auto) Eos % (Auto) Baso % (Auto) Lymph # (Auto) [place] # (Auto) Eos # (Auto) Baso # (Auto) Absolute Neuts (auto) Platelet Evaluation PT 15.1 H INR 1.34 APTT 34.2 Sodium Potassium Chloride Carbon Dioxide Anion Gap BUN Creatinine Est GFR ( Amer) Est GFR (Non-Af Amer) POC Glucose (mg/dL) Random Glucose Calcium Phosphorus Magnesium Total Bilirubin AST ALT Alkaline Phosphatase Troponin I Total Protein Albumin Globulin Albumin/Globulin Ratio Urine Color Urine Appearance Urine pH Ur Specific [place] Urine Protein Urine Glucose (UA) Urine Ketones Urine Blood Urine Nitrate Urine Bilirubin Urine Urobilinogen Ur Leukocyte Esterase Urine RBC Urine WBC Ur Epithelial Cells Blood Type Antibody Screen Crossmatch BBK History Checked Radiology Impressions: Radiology Impressions Angiography CT 09/15/18 07:54 IMPRESSION: GI Bleed Scan Nuclear Medicine 09/15/18 09:00 IMPRESSION: No evidence of active gastrointestinal bleeding. Fingerstick Blood Sugar Results: 187 Critical Care Progress Note - Nutrition Nutrition: Nutrition Category Date Time Status NPO Diet [DIET] Diets 09/14/18 Breakfast Ordered Assessment/Plan - Assessment and Plan (Free Text) Assessment: Pt is a 67 yo male with a PMH of ADPKD s/p renal transplant, ESRD on HD, severe , DM2, HTN, and AAA who was admitted for lethargy and diarrhea, treated for UTI, who was then transferred to TCU where he had a bloody bowel movement and was transferred to ICU. Plan: Neuro - pt confused - continue to monitor neuro status Cardio - HTN, severe , and unrepaired infrarenal AAA - lipitor, zetia - trop negative - Maintain MAP >65 - will start beta fe for AAA in the future - angiogram negative for fistula - CT abd/pelvis w/o contrast: Extensive atherosclerotic calcifications of severely aneurysmal abdominal aorta. 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 - right femoral central line placed, midline has failed, pt pulled out previous central line - Cardio consulted, Dr Shane hemodynamically stable for his planned GI workup Pulm - stable on room air - maintain O2 sat >92% GI - 1 episode of bloody BM - monitor H/H - NPO except meds - continue pantoprazole drip - bleeding scan negative - CT abd/pelvis w/o contrast: Extensive diverticulosis. Heterogeneous liver with hypodensities, tiny cysts or hemangiomas - GI consulted, Dr Cordova EGD today - Surgery consulted Nephro/ - ADPKD s/p renal allograft, ESRD on HD, Chronic kidney disease - CT abd/pelvis w/o contrast: Innumerable bilateral renal cysts of the [place] kidneys consistent with PKD. Hydronephrosis of the transplanted kidney. 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 - Heme/onc consulted, Dr Leigh Endocrine - DM - ISS Pt seen, examined, assessment and plan discussed with Dr Sreenity Gross PGY1 - Date & Time Date: 09/16/18 Time: 07:02 <Serenity Murray - Last Filed: 09/16/18 17:59> CCU Objective - Vital Signs / Intake & Output Vital Signs (Last 4 hours): Vital Signs Pulse Ox 09/16/18 17:36 97 Intake and Output (Last 8hrs): Intake & Output 09/16/18 09/16/18 09/16/18 06:59 14:59 22:59 Intake Total 1420 Balance 1420 Weight 42.184 kg Intake: IV 810 Scalp 810 Oral 0 Blood Product 610 Apheresis Platelets Acda 610 Lr Unit [id number] Other: # Bowel Movements 0 - Medications Active Medications: Active Medications Generic Name Dose Route Start Last Admin Trade Name Freq PRN Reason Stop Dose Admin Acetaminophen 650 mg 09/14/18 19:20 Tylenol 325mg Tab PO Q4H PRN temp > 99.5F Acetaminophen 650 mg 09/15/18 08:40 Tylenol 325mg Tab PO Q6 PRN TEMP>=99.5F Acetaminophen 650 mg 09/15/18 08:40 Tylenol 650 Mg Supp RC Q6H PRN TEMP>=99.5F Atorvastatin Calcium 10 mg 09/15/18 17:00 Lipitor PO DIN [place] Cyproheptadine HCl 4 mg 09/15/18 10:00 09/16/18 09:53 Periactin PO 4 mg BID [place] Administration Ezetimibe 10 mg 09/15/18 10:00 09/16/18 10:09 Zetia PO 10 mg DAILY [place] Administration Famotidine 40 mg 09/14/18 22:00 09/15/18 22:54 Pepcid PO 40 mg HS [place] Administration Pantoprazole Sodium 40 mg in 100 mls @ 20 mls/hr 09/14/18 16:00 09/16/18 09:49 Protonix 40mg Ivpb IVPB 20 mls/hr .Q5H [place] Administration Sodium Chloride 500 mls @ 10 mls/hr 09/14/18 16:58 09/14/18 17:18 Sodium Chloride 0.9% IV 10 mls/hr .Q24H [place] Administration Ceftriaxone Sodium 1 gm in 100 mls @ 100 mls/hr 09/15/18 10:00 09/16/18 09:54 Rocephin 1 Gram Ivpb IVPB 100 mls/hr DAILY [place] Administration Protocol Insulin Human Regular 0 units 09/14/18 22:00 09/16/18 15:57 Humulin R Low SC Not Given ACHS [place] Protocol Levalbuterol HCl 0.63 mg 09/15/18 14:00 09/16/18 13:19 Xopenex IH 0.63 mg [id number] [place]NA Administration Lidocaine 1 ea 09/15/18 10:00 09/16/18 10:09 Lidoderm TD 1 ea DAILY [place] Administration Ondansetron HCl 4 mg 09/15/18 08:40 Zofran Inj IVP Q4H PRN Nausea/Vomiting Prednisone 5 mg 09/15/18 08:00 09/16/18 09:54 Prednisone Tab PO 5 mg BRK [place] Administration - Patient Studies Lab Studies: Microbiology Studies 09/14/18 22:00 MRSA Culture (Admit) - Final Naris MRSA NOT DETECTED 09/14/18 17:07 Blood Culture - Preliminary Blood NO GROWTH AFTER 48 HOURS 09/14/18 16:37 Blood Culture - Preliminary Blood NO GROWTH AFTER 48 HOURS Lab Studies 09/16/18 09/16/18 09/16/18 Range/Units 17:17 12:56 12:30 WBC (4.5-11.0) 10^3/uL RBC (3.5-6.1) 10^6/uL Hgb 11.9 L D (14.0-18.0) g/dL Hct 37.9 L (42.0-52.0) % MCV (80.0-105.0) fl MCH (25.0-35.0) pg MCHC (31.0-37.0) g/dl RDW (11.5-14.5) % Plt Count (120.0-450.0) 10^3/uL Neut % (Auto) (50.0-68.0) % Lymph % (Auto) (22.0-35.0) % [place] % (Auto) (1.0-6.0) % Eos % (Auto) (1.5-5.0) % Baso % (Auto) (0.0-3.0) % Lymph # (Auto) (1.2-3.4) [place] # (Auto) (0.1-0.6) Eos # (Auto) (0.0-0.7) Baso # (Auto) (0.0-2.0) K/mm3 Absolute Neuts (auto) (1.4-6.5) PT (9.4-12.5) SECONDS INR APTT (26.9-38.3) Seconds Fibrinogen (200-400) mg/dl Fibrin Degrad Products (< 10 ug/mL) D-Dimer, Quantitative (0-243) ng/mlDDU Sodium (132-148) mmol/L Potassium (3.6-5.0) mmol/L Chloride (98-107) mmol/L Carbon Dioxide (21-33) mmol/L Anion Gap (10-20) BUN (7-21) mg/dL Creatinine (0.8-1.5) mg/dl Est GFR ( Amer) Est GFR (Non-Af Amer) POC Glucose (mg/dL) 65 88 (65-110) mg/dL Random Glucose (70-110) mg/dL Calcium (8.4-10.5) mg/dL Phosphorus (2.5-4.5) mg/dL Magnesium (1.7-2.2) mg/dL Total Bilirubin (0.2-1.3) mg/dL Direct Bilirubin (0.0-0.4) mg/dL AST (17-59) U/L ALT (7-56) U/L Alkaline Phosphatase (38-126) U/L Troponin I ng/mL Total Protein (5.8-8.3) g/dL Albumin (3.0-4.8) g/dL Globulin gm/dL Albumin/Globulin Ratio (1.1-1.8) Blood Type Antibody Screen Crossmatch BBK History Checked 09/16/18 09/16/18 09/16/18 Range/Units 07:35 07:05 07:05 WBC 14.1 H D (4.5-11.0) 10^3/uL RBC 3.01 L (3.5-6.1) 10^6/uL Hgb 6.7 L* (14.0-18.0) g/dL Hct 23.2 L (42.0-52.0) % MCV 77.1 L (80.0-105.0) fl MCH 22.3 L (25.0-35.0) pg MCHC 28.9 L (31.0-37.0) g/dl RDW 21.2 H (11.5-14.5) % Plt Count 122 (120.0-450.0) 10^3/uL Neut % (Auto) 90.5 H (50.0-68.0) % Lymph % (Auto) 5.7 L (22.0-35.0) % [place] % (Auto) 3.6 (1.0-6.0) % Eos % (Auto) 0.1 L (1.5-5.0) % Baso % (Auto) 0.1 (0.0-3.0) % Lymph # (Auto) 0.8 L (1.2-3.4) [place] # (Auto) 0.5 (0.1-0.6) Eos # (Auto) 0.0 (0.0-0.7) Baso # (Auto) 0.01 (0.0-2.0) K/mm3 Absolute Neuts (auto) 12.74 H (1.4-6.5) PT (9.4-12.5) SECONDS INR APTT (26.9-38.3) Seconds Fibrinogen 122 L (200-400) mg/dl Fibrin Degrad Products (< 10 ug/mL) D-Dimer, Quantitative 4489 H (0-243) ng/mlDDU Sodium (132-148) mmol/L Potassium (3.6-5.0) mmol/L Chloride (98-107) mmol/L Carbon Dioxide (21-33) mmol/L Anion Gap (10-20) BUN (7-21) mg/dL Creatinine (0.8-1.5) mg/dl Est GFR ( Amer) Est GFR (Non-Af Amer) POC Glucose (mg/dL) 160 H (65-110) mg/dL Random Glucose (70-110) mg/dL Calcium (8.4-10.5) mg/dL Phosphorus (2.5-4.5) mg/dL Magnesium (1.7-2.2) mg/dL Total Bilirubin (0.2-1.3) mg/dL Direct Bilirubin (0.0-0.4) mg/dL AST (17-59) U/L ALT (7-56) U/L Alkaline Phosphatase (38-126) U/L Troponin I ng/mL Total Protein (5.8-8.3) g/dL Albumin (3.0-4.8) g/dL Globulin gm/dL Albumin/Globulin Ratio (1.1-1.8) Blood Type Antibody Screen Crossmatch BBK History Checked 09/16/18 09/16/18 09/16/18 Range/Units 06:30 05:50 05:50 WBC (4.5-11.0) 10^3/uL RBC (3.5-6.1) 10^6/uL Hgb (14.0-18.0) g/dL Hct (42.0-52.0) % MCV (80.0-105.0) fl MCH (25.0-35.0) pg MCHC (31.0-37.0) g/dl RDW (11.5-14.5) % Plt Count (120.0-450.0) 10^3/uL Neut % (Auto) (50.0-68.0) % Lymph % (Auto) (22.0-35.0) % [place] % (Auto) (1.0-6.0) % Eos % (Auto) (1.5-5.0) % Baso % (Auto) (0.0-3.0) % Lymph # (Auto) (1.2-3.4) [place] # (Auto) (0.1-0.6) Eos # (Auto) (0.0-0.7) Baso # (Auto) (0.0-2.0) K/mm3 Absolute Neuts (auto) (1.4-6.5) PT (9.4-12.5) SECONDS INR APTT (26.9-38.3) Seconds Fibrinogen (200-400) mg/dl Fibrin Degrad Products >40 ug/ml (< 10 ug/mL) D-Dimer, Quantitative (0-243) ng/mlDDU Sodium 141 (132-148) mmol/L Potassium 3.7 (3.6-5.0) mmol/L Chloride 104 (98-107) mmol/L Carbon Dioxide 26 (21-33) mmol/L Anion Gap 14 (10-20) BUN 59 H (7-21) mg/dL Creatinine 3.4 H (0.8-1.5) mg/dl Est GFR ( Amer) 22 Est GFR (Non-Af Amer) 18 POC Glucose (mg/dL) (65-110) mg/dL Random Glucose 167 H (70-110) mg/dL Calcium 8.2 L (8.4-10.5) mg/dL Phosphorus 4.4 (2.5-4.5) mg/dL Magnesium 1.9 (1.7-2.2) mg/dL Total Bilirubin 0.6 0.4 (0.2-1.3) mg/dL Direct Bilirubin 0.4 (0.0-0.4) mg/dL AST 20 19 (17-59) U/L ALT 18 17 (7-56) U/L Alkaline Phosphatase 100 100 (38-126) U/L Troponin I ng/mL Total Protein 5.2 L 5.2 L (5.8-8.3) g/dL Albumin 2.3 L 2.3 L (3.0-4.8) g/dL Globulin 2.9 2.9 gm/dL Albumin/Globulin Ratio 0.8 L 0.8 L (1.1-1.8) Blood Type Antibody Screen Crossmatch BBK History Checked 09/16/18 09/15/18 09/15/18 Range/Units 05:50 22:56 07:00 WBC (4.5-11.0) 10^3/uL RBC (3.5-6.1) 10^6/uL Hgb (14.0-18.0) g/dL Hct (42.0-52.0) % MCV (80.0-105.0) fl MCH (25.0-35.0) pg MCHC (31.0-37.0) g/dl RDW (11.5-14.5) % Plt Count (120.0-450.0) 10^3/uL Neut % (Auto) (50.0-68.0) % Lymph % (Auto) (22.0-35.0) % [place] % (Auto) (1.0-6.0) % Eos % (Auto) (1.5-5.0) % Baso % (Auto) (0.0-3.0) % Lymph # (Auto) (1.2-3.4) [place] # (Auto) (0.1-0.6) Eos # (Auto) (0.0-0.7) Baso # (Auto) (0.0-2.0) K/mm3 Absolute Neuts (auto) (1.4-6.5) PT 15.1 H (9.4-12.5) SECONDS INR 1.34 APTT 34.2 (26.9-38.3) Seconds Fibrinogen (200-400) mg/dl Fibrin Degrad Products (< 10 ug/mL) D-Dimer, Quantitative (0-243) ng/mlDDU Sodium (132-148) mmol/L Potassium (3.6-5.0) mmol/L Chloride (98-107) mmol/L Carbon Dioxide (21-33) mmol/L Anion Gap (10-20) BUN (7-21) mg/dL Creatinine (0.8-1.5) mg/dl Est GFR ( Amer) Est GFR (Non-Af Amer) POC Glucose (mg/dL) 187 H (65-110) mg/dL Random Glucose (70-110) mg/dL Calcium (8.4-10.5) mg/dL Phosphorus (2.5-4.5) mg/dL Magnesium (1.7-2.2) mg/dL Total Bilirubin (0.2-1.3) mg/dL Direct Bilirubin (0.0-0.4) mg/dL AST (17-59) U/L ALT (7-56) U/L Alkaline Phosphatase (38-126) U/L Troponin I 0.02 D ng/mL Total Protein (5.8-8.3) g/dL Albumin (3.0-4.8) g/dL Globulin gm/dL Albumin/Globulin Ratio (1.1-1.8) Blood Type Antibody Screen Crossmatch BBK History Checked 09/14/18 Range/Units 16:32 WBC (4.5-11.0) 10^3/uL RBC (3.5-6.1) 10^6/uL Hgb (14.0-18.0) g/dL Hct (42.0-52.0) % MCV (80.0-105.0) fl MCH (25.0-35.0) pg MCHC (31.0-37.0) g/dl RDW (11.5-14.5) % Plt Count (120.0-450.0) 10^3/uL Neut % (Auto) (50.0-68.0) % Lymph % (Auto) (22.0-35.0) % [place] % (Auto) (1.0-6.0) % Eos % (Auto) (1.5-5.0) % Baso % (Auto) (0.0-3.0) % Lymph # (Auto) (1.2-3.4) [place] # (Auto) (0.1-0.6) Eos # (Auto) (0.0-0.7) Baso # (Auto) (0.0-2.0) K/mm3 Absolute Neuts (auto) (1.4-6.5) PT (9.4-12.5) SECONDS INR APTT (26.9-38.3) Seconds Fibrinogen (200-400) mg/dl Fibrin Degrad Products (< 10 ug/mL) D-Dimer, Quantitative (0-243) ng/mlDDU Sodium (132-148) mmol/L Potassium (3.6-5.0) mmol/L Chloride (98-107) mmol/L Carbon Dioxide (21-33) mmol/L Anion Gap (10-20) BUN (7-21) mg/dL Creatinine (0.8-1.5) mg/dl Est GFR ( Amer) Est GFR (Non-Af Amer) POC Glucose (mg/dL) (65-110) mg/dL Random Glucose (70-110) mg/dL Calcium (8.4-10.5) mg/dL Phosphorus (2.5-4.5) mg/dL Magnesium (1.7-2.2) mg/dL Total Bilirubin (0.2-1.3) mg/dL Direct Bilirubin (0.0-0.4) mg/dL AST (17-59) U/L ALT (7-56) U/L Alkaline Phosphatase (38-126) U/L Troponin I ng/mL Total Protein (5.8-8.3) g/dL Albumin (3.0-4.8) g/dL Globulin gm/dL Albumin/Globulin Ratio (1.1-1.8) Blood Type O POSITIVE Antibody Screen Negative Crossmatch See Detail BBK History Checked Patient has bt Laboratory Results - last 24 hr 09/14/18 09/15/18 09/15/18 16:32 07:00 22:56 WBC RBC Hgb Hct MCV MCH MCHC RDW Plt Count Neut % (Auto) Lymph % (Auto) [place] % (Auto) Eos % (Auto) Baso % (Auto) Lymph # (Auto) [place] # (Auto) Eos # (Auto) Baso # (Auto) Absolute Neuts (auto) PT INR APTT Fibrinogen Fibrin Degrad Products D-Dimer, Quantitative Sodium Potassium Chloride Carbon Dioxide Anion Gap BUN Creatinine Est GFR ( Amer) Est GFR (Non-Af Amer) POC Glucose (mg/dL) 187 H Random Glucose Calcium Phosphorus Magnesium Total Bilirubin Direct Bilirubin AST ALT Alkaline Phosphatase Troponin I 0.02 D Total Protein Albumin Globulin Albumin/Globulin Ratio Blood Type O POSITIVE Antibody Screen Negative Crossmatch See Detail BBK History Checked Patient has bt 09/16/18 09/16/18 09/16/18 05:50 05:50 05:50 WBC RBC Hgb Hct MCV MCH MCHC RDW Plt Count Neut % (Auto) Lymph % (Auto) [place] % (Auto) Eos % (Auto) Baso % (Auto) Lymph # (Auto) [place] # (Auto) Eos # (Auto) Baso # (Auto) Absolute Neuts (auto) PT 15.1 H INR 1.34 APTT 34.2 Fibrinogen Fibrin Degrad Products D-Dimer, Quantitative Sodium 141 Potassium 3.7 Chloride 104 Carbon Dioxide 26 Anion Gap 14 BUN 59 H Creatinine 3.4 H Est GFR ( Amer) 22 Est GFR (Non-Af Amer) 18 POC Glucose (mg/dL) Random Glucose 167 H Calcium 8.2 L Phosphorus 4.4 Magnesium 1.9 Total Bilirubin 0.4 0.6 Direct Bilirubin 0.4 AST 19 20 ALT 17 18 Alkaline Phosphatase 100 100 Troponin I Total Protein 5.2 L 5.2 L Albumin 2.3 L 2.3 L Globulin 2.9 2.9 Albumin/Globulin Ratio 0.8 L 0.8 L Blood Type Antibody Screen Crossmatch BBK History Checked 09/16/18 09/16/18 09/16/18 06:30 07:05 07:05 WBC 14.1 H D RBC 3.01 L Hgb 6.7 L* Hct 23.2 L MCV 77.1 L MCH 22.3 L MCHC 28.9 L RDW 21.2 H Plt Count 122 Neut % (Auto) 90.5 H Lymph % (Auto) 5.7 L [place] % (Auto) 3.6 Eos % (Auto) 0.1 L Baso % (Auto) 0.1 Lymph # (Auto) 0.8 L [place] # (Auto) 0.5 Eos # (Auto) 0.0 Baso # (Auto) 0.01 Absolute Neuts (auto) 12.74 H PT INR APTT Fibrinogen 122 L Fibrin Degrad Products >40 ug/ml D-Dimer, Quantitative 4489 H Sodium Potassium Chloride Carbon Dioxide Anion Gap BUN Creatinine Est GFR ( Amer) Est GFR (Non-Af Amer) POC Glucose (mg/dL) Random Glucose Calcium Phosphorus Magnesium Total Bilirubin Direct Bilirubin AST ALT Alkaline Phosphatase Troponin I Total Protein Albumin Globulin Albumin/Globulin Ratio Blood Type Antibody Screen Crossmatch BBK History Checked 09/16/18 09/16/18 09/16/18 07:35 12:30 12:56 WBC RBC Hgb 11.9 L D Hct 37.9 L MCV MCH MCHC RDW Plt Count Neut % (Auto) Lymph % (Auto) [place] % (Auto) Eos % (Auto) Baso % (Auto) Lymph # (Auto) [place] # (Auto) Eos # (Auto) Baso # (Auto) Absolute Neuts (auto) PT INR APTT Fibrinogen Fibrin Degrad Products D-Dimer, Quantitative Sodium Potassium Chloride Carbon Dioxide Anion Gap BUN Creatinine Est GFR ( Amer) Est GFR (Non-Af Amer) POC Glucose (mg/dL) 160 H 88 Random Glucose Calcium Phosphorus Magnesium Total Bilirubin Direct Bilirubin AST ALT Alkaline Phosphatase Troponin I Total Protein Albumin Globulin Albumin/Globulin Ratio Blood Type Antibody Screen Crossmatch BBK History Checked 09/16/18 17:17 WBC RBC Hgb Hct MCV MCH MCHC RDW Plt Count Neut % (Auto) Lymph % (Auto) [place] % (Auto) Eos % (Auto) Baso % (Auto) Lymph # (Auto) [place] # (Auto) Eos # (Auto) Baso # (Auto) Absolute Neuts (auto) PT INR APTT Fibrinogen Fibrin Degrad Products D-Dimer, Quantitative Sodium Potassium Chloride Carbon Dioxide Anion Gap BUN Creatinine Est GFR ( Amer) Est GFR (Non-Af Amer) POC Glucose (mg/dL) 65 Random Glucose Calcium Phosphorus Magnesium Total Bilirubin Direct Bilirubin AST ALT Alkaline Phosphatase Troponin I Total Protein Albumin Globulin Albumin/Globulin Ratio Blood Type Antibody Screen Crossmatch BBK History Checked Radiology Impressions: Radiology Impressions Chest X-Ray 09/15/18 18:39 IMPRESSION: Right IJ line terminates in the right atrium with no pneumothorax Head CT 09/16/18 09:57 IMPRESSION: No acute intracranial findings Critical Care Progress Note - Nutrition Nutrition: Nutrition Category Date Time Status NPO Diet [DIET] Diets 09/14/18 Breakfast Ordered Addendum Addendum: 09/16/18 17:59 MICU Attending Addendum: Patient seen and examined with housestaff, case discussed on rounds. I agree with resident note above with the following additions/exceptions: 67 M with PMH of ADPKD s/p renal transplant, ESRD on HD, severe , DM2, HTN, and AAA who we are managing for acute GI bleeding Has bloody BM this am as well, dasha gna dgi following plan for Endoscopy this afternoon HD prior to endoscopy transfusion ordered for 3 more units as HB dramatically dropping overlnight patient pulled out TLC, i placed another one today in the right groin scd for dvt ppx ppi for gi ppx Rest of care as per resident note above Serenity Murray MD Attending Pulmonary Critical Care Sleep Medicine
[2018-09-16 07:05] LABS: ALB/GLOB RATIO 0.8 (1.1-1.8); ALBUMIN 2.3 g/dL (3.0-4.8); BILIRUBIN,DIRECT 0.4 mg/dL (0.0-0.4)
[2018-09-16 07:30] LABS: BASO # 0.01 K/mm3 (0.0-2.0); BASO % 0.1 % (0.0-3.0); EOS % 0.1 % (1.5-5.0); LYMPH # 0.8 (1.2-3.4); LYMPH % 5.7 % (22.0-35.0); MEAN CELL VOLUME 77.1 fl (80.0-105.0); MEAN CORPUSCULAR HEMOGLOBIN 22.3 pg (25.0-35.0); MEAN CORPUSCULAR HGB CONC 28.9 g/dl (31.0-37.0); MONO # 0.5 (0.1-0.6); MONO % 3.6 % (1.0-6.0); PLATELET COUNT 122 10^3/uL (120.0-450.0); RBC 3.01 10^6/uL (3.5-6.1); RED CELL DISTRIBUTION WIDTH 21.2 % (11.5-14.5); WHITE BLOOD COUNT 14.1 10^3/uL (4.5-11.0)
[2018-09-16 07:37] LABS: HEMOGLOBIN 6.7 g/dL (14.0-18.0)
--- NOTE | 2018-09-16 08:17 | HP ---
DATE OF EXAM: 09/15/2018 The patient is now admitted to ICU. The patient was transferred from TCU to the emergency room yesterday evening after rapid response. The patient had bright red blood per rectum. The patient was found to be hypotensive with blood pressure around 70 systolic, tachycardic, rapid response was called at TCU, the patient was then transferred to the emergency room where the patient was evaluated and had complete diagnostic intervention done and therapeutic intervention done and after evaluation, the patient is now admitted to intensive care unit. The patient is admitted to CCU bed 7. The patient is seen and examined in CCU, bed 7. The patient's vital signs, diagnostic data, lab data, and imaging studies were reviewed. The patient's history and physical examination, for detailed history and physical examination, please referred to the patient's medical office representative's H and P. The patient was seen and evaluated and examined. IMPRESSION AND PLAN: 1. Status post rapid response. 2. Lower gastrointestinal bleeding with bright red blood per rectum. 3. Hypovolemic hypotensive, and hemorrhagic shock. 4. Tachycardia. 5. Hypotension. 6. Massive lower gastrointestinal bleed with acute blood loss anemia. 7. Thrombocytopenia. 8. Mild coagulopathy with possible uremic coagulopathy. 9. Granulocytosis. 10. Lactic acidosis. 11. End-stage renal disease, hemodialysis dependent. 12. Uncontrolled insulin-requiring diabetes mellitus with hyperglycemia. 13. Status post 1 unit of platelets and 1 unit of fresh frozen plasma transfusion. 14. Hypovolemia. 15. Right bilateral pleural effusion. 16. Right middle lobe, right lower lobe pneumonia consolidation. 17. Ectatic aortic calcification. 18. Multiple hepatic cysts. 19.. Right transplanted kidney hydronephrosis. 20. Polycystic kidney disease. 21. Thickened urinary bladder. 22. Diverticulosis of the colon. 23. Chronic infrarenal abdominal aortic aneurysm dissection. 24. Renal osteodystrophy. 25. Abdominopelvic ascites. 26. Cachexia. 27. Status post aortic valve replacement. 28. Median sternotomy. 29. End-stage renal disease, hemodialysis dependent via the left upper extremity arteriovenous fistula. 30. History of arteriovenous malformation, gastrointestinal bleeding. 31. Klebsiella pneumoniae urinary tract infection and bacteremia and sepsis. Plan at this time, the patient is to be maintained in intensive care unit. The patient will be ordered 1 unit of PRBC today. The patient has been already received 1 unit of platelets and FFP. The patient has been ordered serial labs. CONSULTATIONS: Hematology/Oncology, Cardiology, Gastroenterology, Nephrology, and Infectious Disease. The patient has been started on proton pump inhibitor. The patient will be continued on the antibiotics as per the Infectious Disease recommendation. The patient will continue on hemodialysis as per Nephrology recommendation. The patient needs further excessive Gastroenterology intervention regarding evaluation for the source of the gastrointestinal bleeding. The patient will continue on nonpharmacological, pharmacological, GI and DVT prophylaxis. The patient will continue on all the medications as per the MAR of today. The patient may need transfusion of the blood products as indicated depending upon the patient's subjective and objective hemodynamic status. The patient's prognosis guarded to poor. Condition critical. Time spent in the entire management more than 1 hour 55 minutes. Dictated and electronically signed, not read. Mart Knox MD
--- NOTE | 2018-09-16 08:39 | RAD ---
Date of service: 09/15/2018 HISTORY: TLC placement COMPARISON: 09/12/2018 TECHNIQUE: 1 view obtained. FINDINGS: LUNGS: No active pulmonary disease. PLEURA: Small right pleural effusion CARDIOVASCULAR: No aortic atherosclerotic calcification present. Normal cardiac size. No pulmonary vascular congestion. OSSEOUS STRUCTURES: No significant abnormalities. VISUALIZED UPPER ABDOMEN: Normal. OTHER FINDINGS: None. IMPRESSION: Right IJ line terminates in the right atrium with no pneumothorax
--- NOTE | 2018-09-16 08:44 | CP.PCM.PN ---
Subjective - Date & Time of Evaluation Date of Evaluation: 09/16/18 Time of Evaluation: 07:45 - Subjective Subjective: General Surgery Progress Note for Dr. Al Richards, PGY1 Patient seen and examined at bedside this morning. Patient pulled out central line overnight; ICU team placing midline today. Patient had bloody bowel movement this morning. 12 point ROS unobtainable at this time due to clinical status. Possible EGD today. Objective - Vital Signs/Intake and Output Vital Signs (last 24 hours): Temp Pulse Resp BP Pulse Ox 97.8 F 108 H 23 148/91 H 97 09/16/18 04:32 09/16/18 04:32 09/16/18 04:32 09/16/18 04:32 09/14/18 21:26 Intake and Output: 09/16/18 09/16/18 06:59 18:59 Intake Total 1420 Balance 1420 - Medications Medications: Current Medications Acetaminophen (Tylenol 325mg Tab) 650 mg PO Q4H PRN PRN Reason: temp > 99.5F Acetaminophen (Tylenol 325mg Tab) 650 mg PO Q6 PRN PRN Reason: TEMP>=99.5F Acetaminophen (Tylenol 650 Mg Supp) 650 mg RC Q6H PRN PRN Reason: TEMP>=99.5F Atorvastatin Calcium (Lipitor) 10 mg PO DIN [facility] Cyproheptadine HCl (Periactin) 4 mg PO BID [facility] Ezetimibe (Zetia) 10 mg PO DAILY [facility] Famotidine (Pepcid) 40 mg PO HS [facility] Last Admin: 09/15/18 22:54 Dose: 40 mg Pantoprazole Sodium (Protonix 40mg Ivpb) 40 mg in 100 mls @ 20 mls/hr IVPB .Q5H [place] Last Admin: 09/16/18 04:50 Dose: Not Given Sodium Chloride (Sodium Chloride 0.9%) 500 mls @ 10 mls/hr IV .Q24H [facility] Last Admin: 09/14/18 17:18 Dose: 10 mls/hr Ceftriaxone Sodium (Rocephin 1 Gram Ivpb) 1 gm in 100 mls @ 100 mls/hr IVPB DAILY [place]; Protocol Insulin Human Regular (Humulin R Low) 0 units SC ACHS [place]; Protocol Last Admin: 09/15/18 22:57 Dose: Not Given Levalbuterol HCl (Xopenex) 0.63 mg IH [id number] [facility] Last Admin: 09/16/18 07:27 Dose: 0.63 mg Lidocaine (Lidoderm) 1 ea TD DAILY [facility] Morphine Sulfate (Morphine) 1 mg IVP Q8H PRN PRN Reason: Pain, severe (8-10) Ondansetron HCl (Zofran Inj) 4 mg IVP Q4H PRN PRN Reason: Nausea/Vomiting Prednisone (Prednisone Tab) 5 mg PO BRK [facility] Last Admin: 09/15/18 08:05 Dose: Not Given - Labs Labs: 09/16/18 07:05 09/15/18 07:00 PT 15.1 SECONDS (9.4-12.5) H 09/16/18 05:50 INR 1.34 09/16/18 05:50 APTT 34.2 Seconds (26.9-38.3) 09/16/18 05:50 - Constitutional Appears: No Acute Distress, Cachectic, Chronically Ill - Head Head Exam: right sided facial swelling noted - Eyes Eye Exam: EOMI - Respiratory Exam Respiratory Exam: Clear to Ausculation Bilateral. absent: Accessory Muscle Use, Respiratory Distress - Cardiovascular Exam Cardiovascular Exam: REGULAR RHYTHM, +S1, +S2 - GI/Abdominal Exam GI & Abdominal Exam: Soft. Nontender. Bowel sounds appreciated in all 4 quadrants. Pulsatile mass appreciated on right side of abdomen. absent: Guarding, Rigid - Neurological Exam Neurological Exam: Awake, CN II-XII Intact, Oriented x3 Additional exam: Moving all extremities spontaneously, no motor/sensory deficits appreciated - Extremities Exam Extremities Exam: Normal Inspection. absent: Calf Tenderness, Tenderness Additional comments: cachectic lower extremities noted Assessment and Plan - Assessment and Plan (Free Text) Assessment: This is a 67 year old male with extensive past medical history presenting to the hospital for lower GI bleeding. Lower GI Bleeding - consider diverticular disease. Less likely aortic fistula Anemia ESRD on HD Infrarenal AAA Thrombocytopenia ADPKD UTI Bactermia 2/2 klebsiella Plan: -transfuse 2 units PRBC pending -plan for EGD today -s/p 1 unit platelets, 1 unit FFP on 09/14 -CTAP reviewed - severely aneurysmal abdominal aorta, chronic dissection of infrarenal abdominal aorta, extensive diverticulosis -GI bleeding scan shows no active GI bleeding -CT angio abdomen shows chronic dissection of the abdomenal aorta. Celiac SMA are patent. 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 No evidence of aortic fistula -H/H q6 -further recommendations per Dr. Al Richards, PGY1
[2018-09-16 08:55] LABS: D DIMER 4489 ng/mlDDU (0-243); FIBRINOGEN 122 mg/dl (200-400)
--- NOTE | 2018-09-16 09:12 | CP.PCM.PN ---
Subjective - Date & Time of Evaluation Date of Evaluation: 09/16/18 Time of Evaluation: 07:11 - Subjective Subjective: Patric Hartley IM Progress Note for Dr. Knox Patient was seen and examined at bedside in ICU. Yesterday, the patient had a TLC placed and he pulled it. Overnight, the patient had peripheral IV placed and plts transfused. This morning, he had a bloody BM and appears more confused. Morning labs show Hgb 6.7 and plan for transfusing 2u pRBCs during HD today. Objective - Vital Signs/Intake and Output Vital Signs (last 24 hours): Temp Pulse Resp BP Pulse Ox 97.8 F 108 H 23 148/91 H 97 09/16/18 04:32 09/16/18 04:32 09/16/18 04:32 09/16/18 04:32 09/14/18 21:26 Intake and Output: 09/16/18 09/16/18 06:59 18:59 Intake Total 1420 Balance 1420 - Medications Medications: Current Medications Acetaminophen (Tylenol 325mg Tab) 650 mg PO Q4H PRN PRN Reason: temp > 99.5F Acetaminophen (Tylenol 325mg Tab) 650 mg PO Q6 PRN PRN Reason: TEMP>=99.5F Acetaminophen (Tylenol 650 Mg Supp) 650 mg RC Q6H PRN PRN Reason: TEMP>=99.5F Atorvastatin Calcium (Lipitor) 10 mg PO DIN [facility] Cyproheptadine HCl (Periactin) 4 mg PO BID [facility] Ezetimibe (Zetia) 10 mg PO DAILY [place] Famotidine (Pepcid) 40 mg PO HS [facility] Last Admin: 09/15/18 22:54 Dose: 40 mg Pantoprazole Sodium (Protonix 40mg Ivpb) 40 mg in 100 mls @ 20 mls/hr IVPB .Q5H [place] Last Admin: 09/16/18 04:50 Dose: Not Given Sodium Chloride (Sodium Chloride 0.9%) 500 mls @ 10 mls/hr IV .Q24H [place] Last Admin: 09/14/18 17:18 Dose: 10 mls/hr Ceftriaxone Sodium (Rocephin 1 Gram Ivpb) 1 gm in 100 mls @ 100 mls/hr IVPB DAILY [place]; Protocol Insulin Human Regular (Humulin R Low) 0 units SC ACHS [place]; Protocol Last Admin: 09/15/18 22:57 Dose: Not Given Levalbuterol HCl (Xopenex) 0.63 mg IH [id number] [facility] Last Admin: 09/16/18 07:27 Dose: 0.63 mg Lidocaine (Lidoderm) 1 ea TD DAILY [facility] Morphine Sulfate (Morphine) 1 mg IVP Q8H PRN PRN Reason: Pain, severe (8-10) Ondansetron HCl (Zofran Inj) 4 mg IVP Q4H PRN PRN Reason: Nausea/Vomiting Prednisone (Prednisone Tab) 5 mg PO BRK [facility] Last Admin: 09/15/18 08:05 Dose: Not Given - Labs Labs: 09/16/18 07:05 09/15/18 07:00 PT 15.1 SECONDS (9.4-12.5) H 09/16/18 05:50 INR 1.34 09/16/18 05:50 APTT 34.2 Seconds (26.9-38.3) 09/16/18 05:50 - Constitutional Appears: Non-toxic, No Acute Distress, Cachectic, Chronically Ill, Confused - Head Exam Head Exam: ATRAUMATIC, NORMAL INSPECTION - Eye Exam Eye Exam: Normal appearance, PERRL - ENT Exam ENT Exam: Mucous Membranes Dry, Normal Exam - Neck Exam Neck Exam: Full ROM, Normal Inspection - Respiratory Exam Respiratory Exam: NORMAL BREATHING PATTERN. absent: Respiratory Distress - Cardiovascular Exam Cardiovascular Exam: Tachycardia, +S1, +S2, Murmur - GI/Abdominal Exam GI & Abdominal Exam: Soft, Normal Bowel Sounds. absent: Distended, Guarding, Tenderness - Extremities Exam Extremities Exam: Full ROM. absent: Pedal Edema Additional Comments: LUE AVF +thrill +bruit - Neurological Exam Neurological Exam: Alert, Awake - Skin Skin Exam: Normal Color, Warm Assessment and Plan - Assessment and Plan (Free Text) Assessment: 67 year old male with a PMH of ADPKD s/p renal allograft (2006), ESRD on HD MWF, DM2, HTN, severe , and unrepaired infrarenal AAA who is being admitted for hematochezia while in the TCU. Bleeding scan showed no active bleeding, and CTA abd/pelvis showed chronic dissection of abdominal aorta, patent celiac and SMA, large aneurysm extending into pelvis (7.8x9.2 cm) and no evidence of aortic fist sam. Plan: 1. GI bleeding, likely 2/2 diverticulosis - currently on protonix gtt - H/H q6 - GI is consulted, recs appreciated; possible endoscopy today to evaluate site o f bleeding - transfused 1u FFP and 3u platelets - transfuse to keep Hgb > 7; will transfuse 2u pRBCs during HD today 2. ESRD - MWF HD; was skipped yesterday due to multiple complications, will have session today - Nephrology consulted, recs appeciated 3. Anemia - likely multifactorial due to active bleeding and chronic anemia due to ESRD/iron deficiency and chronic inflammation - Heme/Onc consulted, recs appreciated - will continue transfusing to keep Hgb > 7 4. Thrombocytopenia - Multifactorial due to immunosuppresion and likely bleed, prior infection - Heme/Onc consulted - s/p 1u FFP And 3u platelets - fibrinogen ordered to r/o DIC 5. ADPKD - Prograft at home; currently held - Heme/Onc consulted, recs appreciated - Nephrology consulted, recs appreciated 6. UTI bactermia 2/2 klebsiella - SUHAIL was negative - cont Rocephin - Abx per ID, recs appreciated 7. PPX - on protonix - SCDs for DVT ppx Further recs per Dr. Knox Case was reviewed and discussed with Dr. Knox
--- NOTE | 2018-09-16 09:37 | CP.PCM.PN ---
<Bradley Davalos - Last Filed: 09/16/18 11:32> Subjective - Date & Time of Evaluation Date of Evaluation: 09/16/18 Time of Evaluation: 07:15 - Subjective Subjective: Nephro Progress Note for Dr. Wheeler Service Bradley Davalos DO, PGY-3 Patient seen and examined at bedside. Overnight, patient became confused and pulled out his Right IJ TLC. Only access obtainable by night team was a 22 angiocath in the forehead. Pt did receive platelets, but no pRBCs overnight. This AM, had another bloody BM. AM Hgb 6.7, plt 122. Will transfuse 2u pRBCs with AM HD (did not get yesterday, will get instead this AM). Remains confused this AM, wrist restraints and dressing on head in place to prevent further line pulling. Still pending colonoscopy by GI. Objective - Vital Signs/Intake and Output Vital Signs (last 24 hours): Temp Pulse Resp BP Pulse Ox 97.8 F 108 H 23 148/91 H 97 09/16/18 04:32 09/16/18 04:32 09/16/18 04:32 09/16/18 04:32 09/14/18 21:26 Intake and Output: 09/16/18 09/16/18 06:59 18:59 Intake Total 1420 Balance 1420 - Medications Medications: Current Medications Acetaminophen (Tylenol 325mg Tab) 650 mg PO Q4H PRN PRN Reason: temp > 99.5F Acetaminophen (Tylenol 325mg Tab) 650 mg PO Q6 PRN PRN Reason: TEMP>=99.5F Acetaminophen (Tylenol 650 Mg Supp) 650 mg RC Q6H PRN PRN Reason: TEMP>=99.5F Atorvastatin Calcium (Lipitor) 10 mg PO DIN [facility] Cyproheptadine HCl (Periactin) 4 mg PO BID [facility] Ezetimibe (Zetia) 10 mg PO DAILY [facility] Famotidine (Pepcid) 40 mg PO HS [facility] Last Admin: 09/15/18 22:54 Dose: 40 mg Pantoprazole Sodium (Protonix 40mg Ivpb) 40 mg in 100 mls @ 20 mls/hr IVPB .Q5H [facility] Last Admin: 09/16/18 04:50 Dose: Not Given Sodium Chloride (Sodium Chloride 0.9%) 500 mls @ 10 mls/hr IV .Q24H [facility] Last Admin: 09/14/18 17:18 Dose: 10 mls/hr Ceftriaxone Sodium (Rocephin 1 Gram Ivpb) 1 gm in 100 mls @ 100 mls/hr IVPB D AILY [facility]; Protocol Insulin Human Regular (Humulin R Low) 0 units SC ACHS [facility]; Protocol Last Admin: 09/15/18 22:57 Dose: Not Given Levalbuterol HCl (Xopenex) 0.63 mg IH [id number] [facility] Last Admin: 09/16/18 07:27 Dose: 0.63 mg Lidocaine (Lidoderm) 1 ea TD DAILY [facility] Morphine Sulfate (Morphine) 1 mg IVP Q8H PRN PRN Reason: Pain, severe (8-10) Ondansetron HCl (Zofran Inj) 4 mg IVP Q4H PRN PRN Reason: Nausea/Vomiting Prednisone (Prednisone Tab) 5 mg PO BRK [facility] Last Admin: 09/15/18 08:05 Dose: Not Given - Labs Labs: 09/16/18 07:05 09/15/18 07:00 PT 15.1 SECONDS (9.4-12.5) H 09/16/18 05:50 INR 1.34 09/16/18 05:50 APTT 34.2 Seconds (26.9-38.3) 09/16/18 05:50 - Additional Findings Additional findings: - Constitutional Appears: Confused, Cachectic, Chronically Ill - Head Exam Head Exam: ATRAUMATIC, NORMAL INSPECTION, NORMOCEPHALIC - Eye Exam Eye Exam: Normal appearance. absent: Conjunctival injection, Scleral icterus - ENT Exam ENT Exam: Mucous Membranes Dry - Neck Exam Neck exam: Positive for: Full Rom. Negative for: Tenderness - Respiratory Exam Respiratory Exam: Clear to Auscultation Bilateral, NORMAL BREATHING PATTERN. absent: Accessory Muscle Use, Chest Wall Tenderness, Decreased Breath Sounds, Rales, Rhonchi, Wheezes - Cardiovascular Exam Cardiovascular Exam: Tachycardia, REGULAR RHYTHM, +S1, +S2. absent: JVD - GI/Abdominal Exam GI & Abdominal Exam: Hyperactive Bowel Sounds, Pulsatile Mass (midline lower abdomen and left-lateral of midline), Soft, Witnessed bloody BM at time of exam. absent: Distended, Firm, Guarding, Rigid, Tenderness - Extremities Exam cachetic extremities, some bruising along RUE due to multiple attempts to gain access/draw blood No gross deformities appreciated - Neurological Exam awake and alert, but confused follows some commands appropriately moving all extremities spontaneously - Psychiatric Exam Psychiatric exam: Confused, Disoriented - Skin Skin Exam: Dry, Normal Color, Warm Assessment and Plan - Assessment and Plan (Free Text) Assessment: This is a 67 yo M with extensive PMH, including ADPKD s/p right renal allograft (transplanted in 2006, failed Jun 2018), ESRD on HD MWF, post-transplant DM2, HTN, severe with hx of prior AV replacement (not candidate for TAVR as of 2018), and unrepaired infrarenal AAA who was initially admitted for klebsiella bacteremia 2/2 UTI, now re-admitted and transferred to ICU due to acute GI bleed. Nephro consulted for ESRD on HD MWF, and for management of failed renal allograft on immunosuppresant tx. Plan: 1) ESRD on HD (MWF) 2) 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, failed 2018), remains on immunosuppresion 3) Acute GI bleed 4) Thrombocytopenia, concern for DIC 5) Unrepaired Infra-renal AAA 6) Anemia 2/2 ESRD 7) Klebsiella bacteremia 8) Failure to thrive 9) Confusion; possible ICU delirium -HD schedule [facility]; was not able to undergo HD yesterday, so is undergoing today -Further episodes of bloody BMs since this AM, Hgb decreased to 6.7 (was 10.9 on admission to ICU) Received 1 unit platelets overnight, but never received any pRBCs; will transfuse 3 units pRBCs during HD today Platelets improved to 122 this AM -GI bleed scan unable to identify bleeding site, CT aortogram negative for aort ic fistula -Holding tacrolimus, continue Prednisone 5mg daily -Failure to thrive likely 2/2 multiple comorbid conditions, pending PT/OT eval -Appreciate GI, Cardio, and Surgery recs As per GI, pending colonoscopy today at 1pm Seen, reviewed, and discussed with attending, Dr. Wheeler <Dandy Wheeler - Last Filed: 09/17/18 08:25> Objective - Vital Signs/Intake and Output Vital Signs (last 24 hours): Temp Pulse Resp BP Pulse Ox 98.2 F 95 H 13 143/87 100 09/16/18 18:06 09/17/18 04:00 09/16/18 22:30 09/16/18 22:30 09/16/18 22:30 - Medications Medications: Current Medications Acetaminophen (Tylenol 325mg Tab) 650 mg PO Q4H PRN PRN Reason: temp > 99.5F Acetaminophen (Tylenol 325mg Tab) 650 mg PO Q6 PRN PRN Reason: TEMP>=99.5F Acetaminophen (Tylenol 650 Mg Supp) 650 mg RC Q6H PRN PRN Reason: TEMP>=99.5F Atorvastatin Calcium (Lipitor) 10 mg PO DIN [facility] Last Admin: 09/16/18 17:45 Dose: 10 mg Cyproheptadine HCl (Periactin) 4 mg PO BID [facility] Last Admin: 09/16/18 17:45 Dose: Not Given Ezetimibe (Zetia) 10 mg PO DAILY [facility] Last Admin: 09/16/18 10:09 Dose: 10 mg Famotidine (Pepcid) 40 mg PO HS [facility] Last Admin: 09/16/18 22:37 Dose: 40 mg Sodium Chloride (Sodium Chloride 0.9%) 500 mls @ 10 mls/hr IV .Q24H [facility] Last Admin: 09/14/18 17:18 Dose: 10 mls/hr Ceftriaxone Sodium (Rocephin 1 Gram Ivpb) 1 gm in 100 mls @ 100 mls/hr IVPB DAILY [facility]; Protocol Last Admin: 09/16/18 09:54 Dose: 100 mls/hr Insulin Human Regular (Humulin R Low) 0 units SC ACHS [facility]; Protocol Last Admin: 09/17/18 07:47 Dose: Not Given Levalbuterol HCl (Xopenex) 0.63 mg IH [id number] [facility] Last Admin: 09/17/18 07:59 Dose: 0.63 mg Lidocaine (Lidoderm) 1 ea TD DAILY [facility] Last Admin: 09/16/18 10:09 Dose: 1 ea Ondansetron HCl (Zofran Inj) 4 mg IVP Q4H PRN PRN Reason: Nausea/Vomiting Pantoprazole Sodium (Protonix Inj) 40 mg IVP DAILY [facility] Polyethylene Glycol (Miralax) 17 gm PO BID [facility] Prednisone (Prednisone Tab) 5 mg PO BRK [facility] Last Admin: 09/17/18 07:48 Dose: 5 mg - Labs Labs: 09/17/18 06:30 09/17/18 06:30 PT 15.1 SECONDS (9.4-12.5) H 09/17/18 06:30 INR 1.34 09/17/18 06:30 APTT 35.4 Seconds (26.9-38.3) 09/17/18 06:30 Attending/Attestation - Attestation I have personally seen and examined this patient.: Yes I have fully participated in the care of the patient.: Yes I have reviewed all pertinent clinical information, including history, physical exam and plan: Yes Notes (Text): Patient seen and examined; I agree with the resident's note as above with the following addition/edits: Patient seen on HD about 1 hour into treatment; became hypotensive with SBP in 70's despite already getting 1 u prbc and getting minimal UF; 250 cc NS bolus given; total of 3 u prbc being given on HD due to another episode of bloody BM this morning and hgb down to 6.7 in the setting of hypotension; Additionally, AVF at site of chronic aneurysmal dilation noted to have a ~1.5 cm area of fluctuance with thin overlying skin, concerning for possible abcess; duplex of AVF ordered; may need surgical consult if there is indeed an abcess. We will continue to follow closely.
[2018-09-16] MEDS: Insulin Reg-LOW-Coverage SC SCH ×4 (09:51→22:27)
[2018-09-16] MEDS: cefTRIAXone 1 gm 1 GM/100 ML BAG IVPB SCH (09:54)
[2018-09-16 10:02] LABS: ALB/GLOB RATIO 0.8 (1.1-1.8); ALBUMIN 2.3 g/dL (3.0-4.8); CALCIUM 8.2 mg/dL (8.4-10.5)
[2018-09-16] MEDS: Lidocaine 5% Patch TD SCH (10:09)
--- NOTE | 2018-09-16 11:01 | PN ---
DATE: 09/16/2018 CARDIOLOGY FOLLOWUP SUBJECTIVE: The patient is undergoing dialysis without symptoms. PHYSICAL EXAMINATION VITAL SIGNS: Blood pressure is 148/91, heart rate is 100. NECK: Negative JVD. LUNGS: No rales noted. HEART: Reveals S1 and S2. EXTREMITIES: Without change. LABORATORY DATA: Hemoglobin is 6.7. Chemistries, BUN and creatinine are 59 and 34. IMPRESSION 1. Gastrointestinal bleed. 2. Marked anemia. 3. End-stage renal disease. 4. History of abdominal aortic aneurysm. 5. Diabetes mellitus. 6. Aortic valve sclerosis. 7. History of kidney transplant which has failed. PLAN: Given these findings, the patient is hemodynamically tolerating his low hemoglobin, will need transfusion today. The patient is scheduled for GI workup today. Carlos Shane MD
--- NOTE | 2018-09-16 15:12 | PN ---
DATE: 09/16/2018 SUBJECTIVE: The patient is still in ICU bed 7. Overnight nurse's notes and events were noted. The patient has been episodically confused. The patient has been having intermittent bloody bowel movement yesterday and today. The patient had a poor IV access yesterday, midline was attempted which was not functional. PICC line could not be inserted. The patient eventually had a right internal jugular triple-lumen catheter placement which the patient pulled out overnight. The patient now placed with a right femoral vein triple-lumen catheter. REVIEW OF SYSTEM: Fourteen system review is positive for confusion and an bloody bowel movement. OBJECTIVE: VITAL SIGNS: T-max 97.8. Telemetry sinus rhythm, sinus tachycardia, heart rate 108, blood pressure 148/91, 116/88, respirations 16-23, O2 sat 97%. HEENT: Head examination normocephalic, atraumatic. HEENT examination shows pinkish pale conjunctivae. Positive facial muscle wasting, cachectic-appearing the patient no. NECK: No neck rigidity. CHEST: Examination median sternotomy surgical scar. CARDIOVASCULAR: Shows S1 and S2, regular rhythm. Positive systolic murmur left sternal border, right second intercostal space, left second intercostal space. LUNG: Examination shows decreased breath sound at the bases. No audible crackle, rales or wheezing. ABDOMEN: Soft, positive bowel sounds, positive midline pulsations noted. GENITALIA: Male. RECTAL: Examination is deferred. EXTREMITIES: Shows positive left upper extremity AV fistula, positive right femoral triple-lumen catheter. Lower extremity shows no pitting edema, , no Homans' sign. NEUROLOGIC: The patient is alert, awake, responsive, confused, disoriented. DIAGNOSTIC DATA: From September 16, WBC 14.1, hemoglobin/hematocrit has dropped to 6.7/23.2, platelets 122, granulocytes 90% segs, fibrinogen 122 which is low, D-dimer is 4489. Lactic acid 3.8 and 2.9. Sodium 141, potassium 3.7, chloride 104, CO2 of 26, BUN 59, creatinine 3.4, glucose 167, calcium 8.2, total protein 5.2, albumin 2.3. The patient had a CTA of the chest and abdomen. The patient was seen by cardiology. The patient was seen by Hematology/Oncology. The patient was seen by Infectious Disease. The patient was seen by the gastroenterology. IMPRESSION AND PLAN: 1. Acute blood loss anemia secondary to gastrointestinal bleeding with intermittent recurrent bloody bowel movement. 2 Altered mental status versus toxic metabolic encephalopathy with episodic confusion versus delirium. 3. Tachycardia. 4. Leukocytosis. 5. Acute blood loss anemia with decreasing hemoglobin/hematocrit with hemoglobin dropping to 6.7. 6. Status post thrombocytopenia. 7. Status post platelets and fresh frozen plasma transfusion. 8. Hypofibrinogenemia. 9. Coagulopathy. 10. Questionable disseminated intravascular coagulation. 11. Lactic acidosis. 12. Protein malnutrition and hypoalbuminemia. 13. Chronic abdominal aortic aneurysm dissection with infrarenal large abdominal aortic aneurysm. 14. Polycystic kidney disease. 15. Right lower quadrant transplanted kidney. 16. End-stage renal disease, hemodialysis dependent. 17. Status post right internal jugular triple-lumen catheter placement and dislodgement. 18. Altered mental status, toxic metabolic encephalopathy. 19. Thrombocytopenia. 20. bacteremia and urinary tract infection. 21. Possible arteriovenous malformation bleeding. 22. Cachexia. 23. Failure to thrive. 24. Anorexia. 25. Gait dysfunction. 26. Deconditioning. 27. Right lower lobe pneumonia consolidation. 28. End-stage renal disease hemodialysis dependent via the left upper extremity AV fistula. PLAN: At this time the patient has been ordered 2 units of PRBC on dialysis, which has been given today. The patient has been ordered 2 units of PRBC over the hemodialysis. The patient is awaiting for a GI endoscopy, colonoscopy. The patient was seen by Cardiology. The patient was cleared by Cardiology for GI testing. The patient was seen by Hematology/Oncology. Their recommendations were reviewed. The patient was seen by Infectious Disease, their recommendations were reviewed. The patient was seen by Critical Care. The patient has been requested to be seen by Neurology for toxic metabolic encephalopathy, altered mental status and confusion. CT of the head has been ordered for evaluation of confusion and encephalopathy. The patient's family, the daughter who is the power of blueprint developer has been notified about the patient's condition, diagnosis, overall guarded to poor prognosis by the medical team, GI team. The patient's current medications will be as per the MAR, which was reviewed. The patient will be continued on non-pharmacological DVT prophylaxis and pharmacological GI prophylaxis. The patient's overall prognosis is guarded to poor condition critical Time spent more than 35 minutes. Mart Knox MD
[2018-09-16 15:42] LABS: HEMOGLOBIN 11.9 g/dL (14.0-18.0)
--- NOTE | 2018-09-16 16:00 | CP.PCM.PN ---
Subjective - Date & Time of Evaluation Date of Evaluation: 09/16/18 Time of Evaluation: 12:00 - Subjective Subjective: Confused, had blood bowel movement today. Pulled TLC out last night Objective - Vital Signs/Intake and Output Vital Signs (last 24 hours): Temp Pulse Resp BP Pulse Ox 97.8 F 108 H 23 148/91 H 97 09/16/18 04:32 09/16/18 04:32 09/16/18 04:32 09/16/18 04:32 09/14/18 21:26 Intake and Output: 09/16/18 09/16/18 06:59 18:59 Intake Total 1420 Balance 1420 - Medications Medications: Current Medications Acetaminophen (Tylenol 325mg Tab) 650 mg PO Q4H PRN PRN Reason: temp > 99.5F Acetaminophen (Tylenol 325mg Tab) 650 mg PO Q6 PRN PRN Reason: TEMP>=99.5F Acetaminophen (Tylenol 650 Mg Supp) 650 mg RC Q6H PRN PRN Reason: TEMP>=99.5F Atorvastatin Calcium (Lipitor) 10 mg PO DIN [facility] Cyproheptadine HCl (Periactin) 4 mg PO BID [facility] Last Admin: 09/16/18 09:53 Dose: 4 mg Ezetimibe (Zetia) 10 mg PO DAILY [facility] Last Admin: 09/16/18 10:09 Dose: 10 mg Famotidine (Pepcid) 40 mg PO HS [facility] Last Admin: 09/15/18 22:54 Dose: 40 mg Pantoprazole Sodium (Protonix 40mg Ivpb) 40 mg in 100 mls @ 20 mls/hr IVPB .Q5H [facility] Last Admin: 09/16/18 09:49 Dose: 20 mls/hr Sodium Chloride (Sodium Chloride 0.9%) 500 mls @ 10 mls/hr IV .Q24H [facility] Last Admin: 09/14/18 17:18 Dose: 10 mls/hr Ceftriaxone Sodium (Rocephin 1 Gram Ivpb) 1 gm in 100 mls @ 100 mls/hr IVPB DAILY [facility]; Protocol Last Admin: 09/16/18 09:54 Dose: 100 mls/hr Insulin Human Regular (Humulin R Low) 0 units SC ACHS [facility]; Protocol Last Admin: 09/16/18 09:51 Dose: 1 u Levalbuterol HCl (Xopenex) 0.63 mg IH [id number] [facility] Last Admin: 09/16/18 13:19 Dose: 0.63 mg Lidocaine (Lidoderm) 1 ea TD DAILY [facility] Last Admin: 09/16/18 10:09 Dose: 1 ea Ondansetron HCl (Zofran Inj) 4 mg IVP Q4H PRN PRN Reason: Nausea/Vomiting Prednisone (Prednisone Tab) 5 mg PO BRK [facility] Last Admin: 09/16/18 09:54 Dose: 5 mg - Labs Labs: 09/16/18 12:30 09/16/18 05:50 PT 15.1 SECONDS (9.4-12.5) H 09/16/18 05:50 INR 1.34 09/16/18 05:50 APTT 34.2 Seconds (26.9-38.3) 09/16/18 05:50 - Constitutional Appears: Cachectic - Head Exam Head Exam: ATRAUMATIC - ENT Exam ENT Exam: Mucous Membranes Dry - Respiratory Exam Respiratory Exam: Decreased Breath Sounds - Cardiovascular Exam Cardiovascular Exam: +S1, +S2 - GI/Abdominal Exam GI & Abdominal Exam: Normal Bowel Sounds Assessment and Plan (1) Thrombocytopenia Assessment & Plan: improved s/p plt transfusion fibrinogen low - ?DIC vs synthetic function of liver declining Status: Acute (2) Anemia Assessment & Plan: GI blood loss; GI f/u anemia of CKD - MARK per renal transfusion support Status: Chronic (3) Coagulopathy Assessment & Plan: nutritional low fibrinogen ? DIC vs declining synthetic function of liver Status: Acute
--- NOTE | 2018-09-16 16:01 | CT ---
Date of service: 09/16/2018 PROCEDURE: CT HEAD WITHOUT CONTRAST. HISTORY: AMS/COAGULOPATHY COMPARISON: 09/11/2018 TECHNIQUE: Axial computed tomography images were obtained through the head/brain without intravenous contrast. Radiation dose: Total exam DLP = 959.95 mGy-cm. This CT exam was performed using one or more of the following dose reduction techniques: Automated exposure control, adjustment of the mA and/or kV according to patient size, and/or use of iterative reconstruction technique. FINDINGS: HEMORRHAGE: No intracranial hemorrhage. BRAIN: No mass effect or edema. No atrophy or chronic microvascular ischemic changes. VENTRICLES: Unremarkable. No hydrocephalus. CALVARIUM: Unremarkable. PARANASAL SINUSES: Dense opacification of the left side of the sphenoid sinus MASTOID AIR CELLS: Unremarkable as visualized. No inflammatory changes. OTHER FINDINGS: None. IMPRESSION: No acute intracranial findings
[2018-09-16] MEDS ORDERED: Etomidate 20 mg/10ml Inj IV ONE (17:17)
[2018-09-16] MEDS ORDERED: Dextrose 50% SYRINGE Inj (50 ml) ONE (17:44)
--- NOTE | 2018-09-16 18:04 | PCM.PROC ---
Addendum Addendum: 09/15/18 18:02 Central Venous Catheter (CVC, Central Line) Placement Date: 09/15/18 Indication: Hemodynamic monitoring/Intravenous access/ active gi bleed A time-out was completed verifying correct patient, procedure, site, positioning. The patient was placed in a dependent position appropriate for central line placement based on the vein to be cannulated. The patients right neck groin was prepped and draped in sterile fashion. 1% Lidocaine was used to anesthetize the surrounding skin area. A triple lumen catheter was introduced into the the internal jugular vein using the Seldinger technique and under ultrasound guidance. The catheter was threaded smoothly over the guide wire and appropriate blood return was obtained. Each lumen of the catheter was evacuated of air and flushed with sterile saline. The catheter was then sutured in place to the skin and a sterile dressing applied. Perfusion to the extremity distal to the point of catheter insertion was checked and found to be adequate. Estimated Blood Loss: minimal The patient tolerated the procedure well and there were no complications.
--- NOTE | 2018-09-16 18:05 | PCM.PROC ---
Addendum Addendum: 09/16/18 08:02 Central Venous Catheter (CVC, Central Line) Placement Date: 09/16/18 Indication: Hemodynamic monitoring/Intravenous access/ active gi bleed *patient pulled out TLC that was placed yesterday and to prevent this from happening again I placed a femoral TLC A time-out was completed verifying correct patient, procedure, site, positioning. The patient was placed in a dependent position appropriate for central line placement based on the vein to be cannulated. The patients right groin was prepped and draped in sterile fashion. 1% Lidocaine was used to anesthetize the surrounding skin area. A triple lumen catheter was introduced into the the icommon femoral vein using the Seldinger technique and under ultra sound guidance. The catheter was threaded smoothly over the guide wire and appropriate blood return was obtained. Each lumen of the catheter was evacuated of air and flushed with sterile saline. The catheter was then sutured in place to the skin and a sterile dressing applied. Perfusion to the extremity distal to the point of catheter insertion was checked and found to be adequate. Estimated Blood Loss: minimal The patient tolerated the procedure well and there were no complications.
[2018-09-16] MEDS ORDERED: Propofol 10 mg/ml Inj (20 ML) ONE (18:13)
[2018-09-16] MEDS ORDERED: Midazolam 2 MG/2 ML VIAL ONE (18:13)
[2018-09-16] MEDS ORDERED: Benzocaine/Butamben/Tetracai 14-2-2% TOP Spray TOP ONE (18:21)
[2018-09-16 18:32] LABS: HEMOGLOBIN 11.5 g/dL (14.0-18.0)
--- NOTE | 2018-09-16 19:12 | CON ---
DATE: 09/16/2018 NEUROLOGY CONSULT CHIEF COMPLAINT: Confusion, . HISTORY OF PRESENT ILLNESS: This is a 67-year-old male with extensive past medical history with history of autosomal dominant poly kidney disease, status post right renal transplant/renal allograft in 2006, failed in 06/2018; end-stage renal disease, on hemodialysis Saturday, Saturday and Saturday post transplant; type 2 diabetes mellitus; hypertension; severe aortic stenosis; history of prior aortic valve replacement; and unrepaired infrarenal abdominal aortic aneurysm, who is admitted for Klebsiella bacteremia secondary to UTI, now readmitted to the ICU for acute GI bleed who was found to have hemoglobin of 6.7 and platelet count of 42 and repeat platelet count today is 122. He is going to go for endoscopy for underlying GI bleed, who was consulted for confusion. It looks like he was in a state of delirium. Currently, he is alert and oriented to person, place, and year. Recall after 5 minutes is 0/3. Poor attention span. Slow thought process. He knows his date of . He knows that his daughter is at bedside with him. He is very deconditioned and cachectic looking. PAST MEDICAL HISTORY: As above. SOCIAL HISTORY: No illicit drug use, smoking, or EtOH abuse. ALLERGIES: NO KNOWN DRUG ALLERGIES. MEDICATIONS: Reviewed by nurse's reconciliation sheet. REVIEW OF SYSTEMS: A 14-point review of systems is negative except as per the HPI. PHYSICAL EXAMINATION: GENERAL: The patient is seen up in bed, in no acute distress, cachectic looking. VITAL SIGNS: Temperature 97.8, pulse rate of 108, blood pressure 148/91, and respiratory rate 23. HEENT: Atraumatic and normocephalic. PERRLA. Extraocular muscles intact. NECK: Supple. No JVD. No adenopathy noted. LUNGS: Clear to auscultation. No adventitious sounds. HEART: Tachycardia. Regular rate and rhythm. No murmurs, rubs, or gallops. S1 and S2 present. ABDOMEN: Soft, nontender, and nondistended. Bowel sounds present. He has hyperactive sounds, pulsatile mass in the mid lower abdomen and the left lateral midline. EXTREMITIES: No clubbing. No cyanosis. He is very cachectic upper and lower extremities. NEUROLOGIC: The patient is alert and oriented to person, place, and year. Recall after 5 minutes is 0/3. Poor attention span. Slow thought process. Cranial nerves II through XII are intact. Speech is found fluent but no aphasia noted. Motor exam; very atrophic in the both upper and lower extremity muscles from underlying decondition state. Sensory exam; light touch, pinprick, proprioception is decreased up to the calves bilaterally. Decreased vibration of the toes. DTRs are 2+ throughout and 1 at both knees and ankles. Coordination; [id number] is intact. No dysmetria noted. Gait is deferred for now. Toes are downgoing bilaterally. LABORATORY DATA: Sodium is 141, potassium 3.7, chloride 104, carbon dioxide 26, BUN of 59, creatinine 3.4, and random glucose 167. ASSESSMENT AND PLAN: A 67-year-old man with extensive past medical history of autosomal dominant polycystic kidney disease, status post right renal transplant/renal allograft in 2006 and 06/2018, end-stage renal disease on hemodialysis on Saturday, Saturday, and Saturday; post transplant type 2 diabetes mellitus, hypertension, severe aortic stenosis with history of aortic valve replacement, and unrepaired infrarenal abdominal aortic aneurysm, who is initially admitted for Klebsiella bacteremia secondary to urinary tract infection, now readmitted to Intensive Care Unit for gastrointestinal bleed with a hemoglobin 6.7, currently status post transfusion, going for endoscopy as per Gastroenterology, consulted for confusion, confusion secondary to underlying toxic metabolic encephalopathy, and superimposed underlying delirium. At this time, recommend: 1. Monitor hemoglobin and hematocrit and transfuse as needed. 2. Monitor electrolytes and correct accordingly. 3. Delirium precautions. 4. CAT scan of the head showed no acute intracranial abnormality. No need for any further imaging. 5. Continue with antibiotics because of his Klebsiella bacteremia and recommend thiamine 100 mg p.o. daily. Once again, thank you for this consult. Kenny Segura MD
--- NOTE | 2018-09-16 22:14 | CP.PCM.PN ---
Subjective - Date & Time of Evaluation Date of Evaluation: 09/16/18 Time of Evaluation: 18:45 - Subjective Subjective: Status post EGD and flex sig. Patient comfortable not in distress Objective - Vital Signs/Intake and Output Vital Signs (last 24 hours): Temp Pulse Resp BP Pulse Ox 98.2 F 94 H 18 154/112 H 92 L 09/16/18 18:06 09/16/18 20:26 09/16/18 20:26 09/16/18 20:26 09/16/18 20:26 Intake and Output: 09/16/18 09/17/18 18:59 06:59 Intake Total 280 Output Total 950 Balance -670 - Medications Medications: Current Medications Acetaminophen (Tylenol 325mg Tab) 650 mg PO Q4H PRN PRN Reason: temp > 99.5F Acetaminophen (Tylenol 325mg Tab) 650 mg PO Q6 PRN PRN Reason: TEMP>=99.5F Acetaminophen (Tylenol 650 Mg Supp) 650 mg RC Q6H PRN PRN Reason: TEMP>=99.5F Atorvastatin Calcium (Lipitor) 10 mg PO DIN [facility] Last Admin: 09/16/18 17:45 Dose: 10 mg Cyproheptadine HCl (Periactin) 4 mg PO BID [facility] Last Admin: 09/16/18 17:45 Dose: Not Given Ezetimibe (Zetia) 10 mg PO DAILY [facility] Last Admin: 09/16/18 10:09 Dose: 10 mg Famotidine (Pepcid) 40 mg PO HS [facility] Last Admin: 09/15/18 22:54 Dose: 40 mg Pantoprazole Sodium (Protonix 40mg Ivpb) 40 mg in 100 mls @ 20 mls/hr IVPB .Q5H [facility] Last Admin: 09/16/18 21:36 Dose: 20 mls/hr Sodium Chloride (Sodium Chloride 0.9%) 500 mls @ 10 mls/hr IV .Q24H [facility] Last Admin: 09/14/18 17:18 Dose: 10 mls/hr Ceftriaxone Sodium (Rocephin 1 Gram Ivpb) 1 gm in 100 mls @ 100 mls/hr IVPB DAILY [facility]; Protocol Last Admin: 09/16/18 09:54 Dose: 100 mls/hr Insulin Human Regular (Humulin R Low) 0 units SC ACHS [facility]; Protocol Last Admin: 09/16/18 16:35 Dose: Not Given Levalbuterol HCl (Xopenex) 0.63 mg IH [id number] [facility] Last Admin: 09/16/18 21:20 Dose: 0.63 mg Lidocaine (Lidoderm) 1 ea TD DAILY [facility] Last Admin: 09/16/18 10:09 Dose: 1 ea Ondansetron HCl (Zofran Inj) 4 mg IVP Q4H PRN PRN Reason: Nausea/Vomiting Prednisone (Prednisone Tab) 5 mg PO BRK [facility] Last Admin: 09/16/18 09:54 Dose: 5 mg - Labs Labs: 09/16/18 18:28 09/16/18 05:50 PT 15.1 SECONDS (9.4-12.5) H 09/16/18 05:50 INR 1.34 09/16/18 05:50 APTT 34.2 Seconds (26.9-38.3) 09/16/18 05:50 - Head Exam Head Exam: ATRAUMATIC, NORMOCEPHALIC - Eye Exam Eye Exam: EOMI, Scleral icterus - Respiratory Exam Respiratory Exam: NORMAL BREATHING PATTERN - Cardiovascular Exam Cardiovascular Exam: +S1, +S2 - GI/Abdominal Exam GI & Abdominal Exam: Soft. absent: Tenderness Assessment and Plan - Assessment and Plan (Free Text) Assessment: Status post EGD and flex sig EGD no upper GI source of blood loss no blood noticed in the stomach and duodenum Flexible sigmoidoscopy revealed a multiple ulcers in the rectum suggestive of subcortical ulcerations but there blood in the rectum. The endoscope was advanced all the way up to 30 cm no blood was noticed in the sigmoid. Brown stool noticed. Clinically the picture is most suggestive of the bleeding from the rectum with some corneal ulcerations Would recommend follow-up of the hemoglobin hematocrit and transfuse Other problems include large infrarenal abdominal aortic aneurysm not repaired, polycystic kidney disease status post right renal allograft, end-stage renal disease on hemodialysis History of UTI, hypertension Severe aortic stenosis status post valve replacement Large AAA not repaired
[2018-09-17] MEDS: Levalbuterol 0.63 MG/3 ML Inhal Soln UD IH SCH ×4 (02:50→20:38)
[2018-09-17] MEDS: Pantoprazole 40mg/100mL NS 40 MG/100 ML BAG IVPB SCH (03:02)
--- NOTE | 2018-09-17 06:52 | CP.PCM.PN ---
Subjective - Date & Time of Evaluation Date of Evaluation: 09/17/18 Time of Evaluation: 07:40 - Subjective Subjective: Patric Hartley Progress Note for Dr. Knox Patient was seen and examined at bedside in ICU. Yesterday, the patient underwent EGD and flex sigmoidoscopy which revealed stercoral ulcers which are most likely the cause of his bleeding; EGD did not show any signs of bleeding. Overnight, the patient had 1 was bloody. Patient is hemodynamically stable. He is still requiring restraints because he is at risk of pulling his TLC out and we would then lose IV access. Objective - Vital Signs/Intake and Output Vital Signs (last 24 hours): Temp Pulse Resp BP Pulse Ox 98.2 F 95 H 13 143/87 100 09/16/18 18:06 09/17/18 04:00 09/16/18 22:30 09/16/18 22:30 09/16/18 22:30 Intake and Output: 09/16/18 09/17/18 18:59 06:59 Intake Total 280 Output Total 950 Balance -670 - Medications Medications: Current Medications Acetaminophen (Tylenol 325mg Tab) 650 mg PO Q4H PRN PRN Reason: temp > 99.5F Acetaminophen (Tylenol 325mg Tab) 650 mg PO Q6 PRN PRN Reason: TEMP>=99.5F Acetaminophen (Tylenol 650 Mg Supp) 650 mg RC Q6H PRN PRN Reason: TEMP>=99.5F Atorvastatin Calcium (Lipitor) 10 mg PO DIN [facility] Last Admin: 09/16/18 17:45 Dose: 10 mg Cyproheptadine HCl (Periactin) 4 mg PO BID [facility] Last Admin: 09/16/18 17:45 Dose: Not Given Ezetimibe (Zetia) 10 mg PO DAILY [facility] Last Admin: 09/16/18 10:09 Dose: 10 mg Famotidine (Pepcid) 40 mg PO HS [facility] Last Admin: 09/15/18 22:54 Dose: 40 mg Sodium Chloride (Sodium Chloride 0.9%) 500 mls @ 10 mls/hr IV .Q24H [facility] Last Admin: 09/14/18 17:18 Dose: 10 mls/hr Ceftriaxone Sodium (Rocephin 1 Gram Ivpb) 1 gm in 100 mls @ 100 mls/hr IVPB DAILY [facility]; Protocol Last Admin: 09/16/18 09:54 Dose: 100 mls/hr Insulin Human Regular (Humulin R Low) 0 units SC ACHS [facility]; Protocol Last Admin: 09/16/18 22:27 Dose: Not Given Levalbuterol HCl (Xopenex) 0.63 mg IH [id number] [facility] Last Admin: 09/17/18 02:50 Dose: 0.63 mg Lidocaine (Lidoderm) 1 ea TD DAILY [facility] Last Admin: 09/16/18 10:09 Dose: 1 ea Ondansetron HCl (Zofran Inj) 4 mg IVP Q4H PRN PRN Reason: Nausea/Vomiting Pantoprazole Sodium (Protonix Inj) 40 mg IVP DAILY [facility] Polyethylene Glycol (Miralax) 17 gm PO BID [facility] Prednisone (Prednisone Tab) 5 mg PO BRK [facility] Last Admin: 09/16/18 09:54 Dose: 5 mg - Labs Labs: 09/16/18 18:28 09/16/18 05:50 PT 15.1 SECONDS (9.4-12.5) H 09/16/18 05:50 INR 1.34 09/16/18 05:50 APTT 34.2 Seconds (26.9-38.3) 09/16/18 05:50 - Constitutional Appears: Non-toxic, No Acute Distress, Cachectic, Chronically Ill - Head Exam Head Exam: ATRAUMATIC, NORMAL INSPECTION - Eye Exam Eye Exam: Normal appearance, PERRL - ENT Exam ENT Exam: Mucous Membranes Dry, Normal Exam - Neck Exam Neck Exam: Full ROM, Normal Inspection - Respiratory Exam Respiratory Exam: NORMAL BREATHING PATTERN. absent: Respiratory Distress - Cardiovascular Exam Cardiovascular Exam: Tachycardia, +S1, +S2, Murmur - GI/Abdominal Exam GI & Abdominal Exam: Soft, Normal Bowel Sounds. absent: Distended, Guarding, Tenderness - Extremities Exam Extremities Exam: Full ROM. absent: Pedal Edema Additional Comments: LUE AVF +thrill +bruit - Neurological Exam Neurological Exam: Alert, Awake, Oriented x3 - Skin Skin Exam: Normal Color, Warm Assessment and Plan - Assessment and Plan (Free Text) Assessment: 67 year old male with a PMH of ADPKD s/p renal allograft (2006), ESRD on HD MWF, DM2, HTN, severe , and unrepaired infrarenal AAA who is being admitted for hematochezia while in the TCU. Bleeding scan showed no active bleeding, and CTA abd/pelvis showed chronic dissection of abdominal aorta, patent celiac and SMA, large aneurysm extending into pelvis (7.8x9.2 cm) and no evidence of aortic fistula. Post EGD and flex-sig that showed no esophageal/gastric cause of bleeding but was positive for brown stools with stercoral ulcerations. Plan: 1. GI bleeding, likely 2/2 stercoral ulcerations - started on miralax bid - d/c protonix gtt - will start protonix daily for GI ppx - GI is consulted, recs appreciated - transfused 3u pRBC, 1u FFP and 3u platelets in total - advance diet per GI recs 2. ESRD - MWF HD; short HD session yesterday due to hypotension - Nephrology consulted, recs appreciated - US reviewed showing chronic aneurysm w/ no signs of abscess 3. Anemia - likely multifactorial due to active bleeding and chronic anemia due to ESRD/iron deficiency and chronic inflammation - Heme/Onc consulted, recs appreciated - will continue transfusing to keep Hgb > 7 4. Thrombocytopenia - Multifactorial due to DIC vs declining synthetic function of liver - Heme/Onc consulted - s/p 3u pRBCs, 1u FFP and 3u platelets - DIC heme studies reviewed 5. ADPKD - Prograft at home; currently held - Heme/Onc consulted, recs appreciated - Nephrology consulted, recs appreciated - cont HD per Nephro 6. UTI bactermia 2/2 klebsiella - SUHAIL was negative - cont Rocephin - Abx per ID, recs appreciated 7. PPX - Protonix for GI ppx - SCDs for DVT ppx Further recs per Dr. Knox Case was reviewed and discussed with Dr. Knox
[2018-09-17 06:53] LABS: INR 1.34; PARTIAL THROMBOPLASTIN TIME 35.4 Seconds (26.9-38.3); PROTHROMBIN TIME 15.1 SECONDS (9.4-12.5)
[2018-09-17 07:01] LABS: BASO # 0.01 K/mm3 (0.0-2.0); BASO % 0.1 % (0.0-3.0); EOS % 0.2 % (1.5-5.0); HEMOGLOBIN 11.8 g/dL (14.0-18.0); LYMPH # 0.9 (1.2-3.4); LYMPH % 7.2 % (22.0-35.0); MEAN CELL VOLUME 78.7 fl (80.0-105.0); MEAN CORPUSCULAR HEMOGLOBIN 24.6 pg (25.0-35.0); MEAN CORPUSCULAR HGB CONC 31.3 g/dl (31.0-37.0); MONO # 0.5 (0.1-0.6); MONO % 3.7 % (1.0-6.0); PLATELET COUNT 76 10^3/uL (120.0-450.0); RBC 4.79 10^6/uL (3.5-6.1); RED CELL DISTRIBUTION WIDTH 19.2 % (11.5-14.5)
--- NOTE | 2018-09-17 07:23 | CP.PCM.PN ---
<Ginger Daniel - Last Filed: 09/17/18 16:31> Subjective - Date & Time of Evaluation Date of Evaluation: 09/17/18 Time of Evaluation: 07:22 - Subjective Subjective: Ginger Daniel, PGY2, GI Progress Note for Dr Cordova: Patient seen and examined at bedside. Overnight at 1 AM, patient had medium bloody (maroon) BM. Patient denies nausea, vomiting, abdominal pain, dizziness. States that he is hungry and tolerating CLD well. Objective - Vital Signs/Intake and Output Vital Signs (last 24 hours): Temp Pulse Resp BP Pulse Ox 98.2 F 95 H 13 143/87 100 09/16/18 18:06 09/17/18 04:00 09/16/18 22:30 09/16/18 22:30 09/16/18 22:30 - Medications Medications: Current Medications Acetaminophen (Tylenol 325mg Tab) 650 mg PO Q4H PRN PRN Reason: temp > 99.5F Acetaminophen (Tylenol 325mg Tab) 650 mg PO Q6 PRN PRN Reason: TEMP>=99.5F Acetaminophen (Tylenol 650 Mg Supp) 650 mg RC Q6H PRN PRN Reason: TEMP>=99.5F Atorvastatin Calcium (Lipitor) 10 mg PO DIN [facility] Last Admin: 09/16/18 17:45 Dose: 10 mg Cyproheptadine HCl (Periactin) 4 mg PO BID [facility] Last Admin: 09/16/18 17:45 Dose: Not Given Ezetimibe (Zetia) 10 mg PO DAILY [facility] Last Admin: 09/16/18 10:09 Dose: 10 mg Famotidine (Pepcid) 40 mg PO HS [facility] Last Admin: 09/15/18 22:54 Dose: 40 mg Sodium Chloride (Sodium Chloride 0.9%) 500 mls @ 10 mls/hr IV .Q24H [facility] Last Admin: 09/14/18 17:18 Dose: 10 mls/hr Ceftriaxone Sodium (Rocephin 1 Gram Ivpb) 1 gm in 100 mls @ 100 mls/hr IVPB DAILY [facility]; Protocol Last Admin: 09/16/18 09:54 Dose: 100 mls/hr Insulin Human Regular (Humulin R Low) 0 units SC ACHS [facility]; Protocol Last Admin: 09/16/18 22:27 Dose: Not Given Levalbuterol HCl (Xopenex) 0.63 mg IH [id number] [facility] Last Admin: 09/17/18 02:50 Dose: 0.63 mg Lidocaine (Lidoderm) 1 ea TD DAILY [facility] Last Admin: 09/16/18 10:09 Dose: 1 ea Ondansetron HCl (Zofran Inj) 4 mg IVP Q4H PRN PRN Reason: Nausea/Vomiting Pantoprazole Sodium (Protonix Inj) 40 mg IVP DAILY [facility] Polyethylene Glycol (Miralax) 17 gm PO BID [facility] Prednisone (Prednisone Tab) 5 mg PO BRK [facility] Last Admin: 09/16/18 09:54 Dose: 5 mg - Labs Labs: 09/16/18 18:28 09/17/18 06:30 PT 15.1 SECONDS (9.4-12.5) H 09/17/18 06:30 INR 1.34 09/17/18 06:30 APTT 35.4 Seconds (26.9-38.3) 09/17/18 06:30 - Additional Findings Additional findings: - Constitutional Appears: Non-toxic, Cachectic, Chronically Ill - Head Exam Head Exam: ATRAUMATIC, NORMOCEPHALIC - Eye Exam Eye Exam: EOMI, PERRL. absent: Conjunctival injection, Nystagmus, Scleral icterus Pupil Exam: NORMAL ACCOMODATION, PERRL. absent: Irregular, Miosis, Unequal - ENT Exam ENT Exam: Mucous Membranes Dry - Neck Exam Neck exam: Positive for: Full Rom - Respiratory Exam Respiratory Exam: Clear to Auscultation Bilateral, NORMAL BREATHING PATTERN. absent: Accessory Muscle Use, Rhonchi, Wheezes - Cardiovascular Exam Cardiovascular Exam: RRR, +S1, +S2, Systolic Murmur - GI/Abdominal Exam GI & Abdominal Exam: Normal Bowel Sounds, Soft. absent: Distended, Firm, Rebound, Rigid - Extremities Exam Extremities exam: Positive for: normal inspection. Negative for: calf tenderness, pedal edema - Back Exam Back exam: NORMAL INSPECTION - Neurological Exam Neurological exam: Alert, Oriented x3 - Psychiatric Exam Psychiatric exam: Normal Affect, Normal Mood - Skin Skin Exam: Normal Color, Warm Assessment and Plan - Assessment and Plan (Free Text) Assessment: # GI bleed, 2/2 stercoral ulcerations 2/2 chronic constipation # Microcytic anemia # Thrombocytopenia # Klebsiella Bacteremia 2/2 UTI # Polycystic Kidney disease s/p right renal allograft # ESRD on HD MWF # HTN # Severe Aortic Stenosis with hx of prior AV replacement (not candidate for TAVR as of 2018) # unrepaired infrarenal AAA - CT abd pelvis w/o contrast: extensive diverticulosis. abdominal/pelvic ascites. No free air. Heterogenous appearance of liver with innumerable hypodensities, possibly tiny cysts or hemangiomas. Ill denied hypodense region within hepatic dome spanning 16 x 10 mm. - s/p 1 unit FFP, platelets, 3 units prbcs - Hgb stable this AM, 11.8. Will continue to monitor closely. - EGD 09/16 showed no bleeding source. Flex sigmoidoscopy showed multiple ulcers in rectum, likely stercoral ulcerations. The endoscope was advanced all the way up to 30 cm, no blood was noticed in the sigmoid. Brown stool noticed. - Started on miralax and protonix 40 IV. Will give lactulose 20 gm x1. Recommend clearing out solid stool with bowel regimen. Will prevent constipation. - Advanced to renal, low carb consistent soft diet - bleeding scan negative - angio of abd with contrast negative for any aortic fistula - c/w abx for bacteremia - further recs per Dr Cordova. Case seen and discussed with Dr Cordova. <Mac Cordova V - Last Filed: 09/17/18 20:47> Objective - Vital Signs/Intake and Output Vital Signs (last 24 hours): Temp Pulse Resp BP Pulse Ox 98.1 F 95 H 30 H 156/93 H 96 09/17/18 16:30 09/17/18 19:44 09/17/18 19:44 09/17/18 19:00 09/17/18 16:30 Intake and Output: 09/17/18 09/18/18 18:59 06:59 Intake Total 600 Output Total 200 Balance 400 - Medications Medications: Current Medications Acetaminophen (Tylenol 325mg Tab) 650 mg PO Q4H PRN PRN Reason: temp > 99.5F Acetaminophen (Tylenol 325mg Tab) 650 mg PO Q6 PRN PRN Reason: TEMP>=99.5F Acetaminophen (Tylenol 650 Mg Supp) 650 mg RC Q6H PRN PRN Reason: TEMP>=99.5F Atorvastatin Calcium (Lipitor) 10 mg PO DIN [facility] Last Admin: 09/17/18 17:24 Dose: 10 mg Cyproheptadine HCl (Periactin) 4 mg PO BID [facility] Last Admin: 09/17/18 17:24 Dose: 4 mg Ezetimibe (Zetia) 10 mg PO DAILY [facility] Last Admin: 09/17/18 09:41 Dose: 10 mg Famotidine (Pepcid) 40 mg PO HS [facility] Last Admin: 09/16/18 22:37 Dose: 40 mg Sodium Chloride (Sodium Chloride 0.9%) 500 mls @ 10 mls/hr IV .Q24H [facility] Last Admin: 09/17/18 17:26 Dose: Not Given Ceftriaxone Sodium (Rocephin 1 Gram Ivpb) 1 gm in 100 mls @ 100 mls/hr IVPB DAILY [facility]; Protocol Last Admin: 09/17/18 09:42 Dose: 100 mls/hr Insulin Human Regular (Humulin R Low) 0 units SC ACHS [facility]; Protocol Last Admin: 09/17/18 17:33 Dose: Not Given Levalbuterol HCl (Xopenex) 0.63 mg IH [id number] [facility] Last Admin: 09/17/18 20:38 Dose: 0.63 mg Lidocaine (Lidoderm) 1 ea TD DAILY [facility] Last Admin: 09/17/18 09:43 Dose: 1 ea Metoprolol Tartrate (Lopressor) 25 mg PO BID [facility] Last Admin: 09/17/18 17:37 Dose: 25 mg Ondansetron HCl (Zofran Inj) 4 mg IVP Q4H PRN PRN Reason: Nausea/Vomiting Pantoprazole Sodium (Protonix Inj) 40 mg IVP DAILY [facility] Last Admin: 09/17/18 10:00 Dose: 40 mg Polyethylene Glycol (Miralax) 17 gm PO BID [facility] Last Admin: 09/17/18 17:28 Dose: Not Given Prednisone (Prednisone Tab) 5 mg PO BRK [facility] Last Admin: 09/17/18 07:48 Dose: 5 mg Thiamine HCl (Vitamin B1 Tab) 100 mg PO DAILY [facility] Last Admin: 09/17/18 11:00 Dose: 100 mg - Labs Labs: 09/17/18 16:01 09/17/18 06:30 PT 15.1 SECONDS (9.4-12.5) H 09/17/18 06:30 INR 1.34 09/17/18 06:30 APTT 35.4 Seconds (26.9-38.3) 09/17/18 06:30 Attending/Attestation - Attestation I have personally seen and examined this patient.: Yes I have fully participated in the care of the patient.: Yes I have reviewed all pertinent clinical information, including history, physical exam and plan: Yes Notes (Text): This is an addendum to the B GI progress report dictated by the resident. The patient was seen and evaluated along with the resident earlier today. No further episodes of significant bleeding per rectum small amount of blood noticed. Hemoglobin stable. Patient on full liquid diet tolerating 1 solid food Flexible sigmoidoscopy done yesterday revealed multiple deep stuck oral ulcerations. The blood was present only in the rectum no blood noticed in the sigmoid colon suggestive of possible bleeding mainly from the stercoral ulcerations. Upper GI endoscopy done same time did not reveal any upper GI source of blood loss. Would recommend this patient to continue lactulose for bowel regimen and avoid constipation. Will increase the diet to soft renal diet. 09/17/18 20:44
[2018-09-17 07:26] LABS: ALB/GLOB RATIO 0.7 (1.1-1.8); ALBUMIN 2.1 g/dL (3.0-4.8); BILIRUBIN,DIRECT 0.5 mg/dL (0.0-0.4); CALCIUM 7.8 mg/dL (8.4-10.5)
--- NOTE | 2018-09-17 07:40 | CP.CCUPN ---
<RenatoGeorgi Killian - Last Filed: 09/17/18 13:02> CCU Subjective - Physician Review Events Since Last Encounter (Free Text): 09/17/18 12:35 pt had a bloody bowel movement overnight Subjective (Free Text): 09/15/18 11:22 Pt seen and examined, no new complaints at this time 09/16/18 07:00 Pt seen adn examined, confused, denies chest pain or SOB 09/17/18 12:36 pt seen and examined, no new complaints CCU Objective - Vital Signs / Intake & Output Vital Signs (Last 4 hours): Vital Signs Pulse 09/17/18 04:00 95 H Intake and Output (Last 8hrs): Intake & Output 09/16/18 09/17/18 09/17/18 22:59 06:59 14:59 Intake Total 280 Output Total 950 Balance -670 Intake: Oral 180 Other 100 Output: Urine 450 Urine, Voided 450 Other 500 Other: # Bowel Movements 2 - Physical Exam Head: Positive for: Atraumatic, Normocephalic Pupils: Positive for: PERRL Extroacular Muscles: Positive for: EOMI Conjunctiva: Positive for: Normal Mouth: Positive for: Moist Mucous Membranes Neck: Positive for: Normal Range of Motion. Negative for: Meningeal Signs, MIDLINE TENDERNESS Respiratory/Chest: Positive for: Clear to Auscultation, Good Air Exchange. Negative for: Respiratory Distress, Accessory Muscle Use Cardiovascular: Positive for: Regular Rate and Rhythm, Normal S1, S2. Negative for: Murmurs Abdomen: Negative for: Tenderness, Distention, Peritoneal Signs Rectal: Positive for: Normal Rectal Tone, Other (Guaiac positive. Maroon Stool). Negative for: Rectal Tenderness, Hemorrhoids, Fissures, Nodule/Mass/Lesions Back: Positive for: Normal Inspection. Negative for: CVA Tenderness, Midline Tenderness Upper Extremity: Positive for: Normal Inspection, NORMAL PULSES, Neurovascularly Intact, Capillary Refill < 2s, Other (LUE fistula w/ good bruit and good thrill, no erythema or crepitus noted overlaying). Negative for: Cyanosis, Edema, Tenderness, Erythema Lower Extremity: Positive for: Normal Inspection, NORMAL PULSES, Neurovascularly Intact. Negative for: Edema Neurological: Positive for: GCS=15, CN II-XII Intact, Speech Normal, Motor Func Grossly Intact Skin: Positive for: Warm, Dry, Normal Color. Negative for: Rashes Psychiatric: Positive for: Alert, Oriented x 3, Normal Insight, Normal Concentration - Medications Active Medications: Active Medications Generic Name Dose Route Start Last Admin Trade Name Freq PRN Reason Stop Dose Admin Acetaminophen 650 mg 09/14/18 19:20 Tylenol 325mg Tab PO Q4H PRN temp > 99.5F Acetaminophen 650 mg 09/15/18 08:40 Tylenol 325mg Tab PO Q6 PRN TEMP>=99.5F Acetaminophen 650 mg 09/15/18 08:40 Tylenol 650 Mg Supp RC Q6H PRN TEMP>=99.5F Atorvastatin Calcium 10 mg 09/15/18 17:00 09/16/18 17:45 Lipitor PO 10 mg DIN TAWANA Administration Cyproheptadine HCl 4 mg 09/15/18 10:00 09/16/18 17:45 Periactin PO Not Given BID TAWANA Ezetimibe 10 mg 09/15/18 10:00 09/16/18 10:09 Zetia PO 10 mg DAILY TAWANA Administration Famotidine 40 mg 09/14/18 22:00 09/15/18 22:54 Pepcid PO 40 mg HS TAWANA Administration Sodium Chloride 500 mls @ 10 mls/hr 09/14/18 16:58 09/14/18 17:18 Sodium Chloride 0.9% IV 10 mls/hr .Q24H TAWANA Administration Ceftriaxone Sodium 1 gm in 100 mls @ 100 mls/hr 09/15/18 10:00 09/16/18 09:54 Rocephin 1 Gram Ivpb IVPB 100 mls/hr DAILY TAWANA Administration Protocol Insulin Human Regular 0 units 09/14/18 22:00 09/16/18 22:27 Humulin R Low SC Not Given ACHS TAWANA Protocol Levalbuterol HCl 0.63 mg 09/15/18 14:00 09/17/18 02:50 Xopenex IH 0.63 mg [id number] TAWANA Administration Lidocaine 1 ea 09/15/18 10:00 09/16/18 10:09 Lidoderm TD 1 ea DAILY TAWANA Administration Ondansetron HCl 4 mg 09/15/18 08:40 Zofran Inj IVP Q4H PRN Nausea/Vomiting Pantoprazole Sodium 40 mg 09/17/18 10:00 Protonix Inj IVP DAILY TAWANA Polyethylene Glycol 17 gm 09/17/18 10:00 Miralax PO BID TAWANA Prednisone 5 mg 09/15/18 08:00 09/16/18 09:54 Prednisone Tab PO 5 mg BRK TAWANA Administration - Patient Studies Lab Studies: Microbiology Studies 09/14/18 22:00 MRSA Culture (Admit) - Final Naris MRSA NOT DETECTED 09/14/18 17:07 Blood Culture - Preliminary Blood NO GROWTH AFTER 48 HOURS 09/14/18 16:37 Blood Culture - Preliminary Blood NO GROWTH AFTER 48 HOURS Lab Studies 09/17/18 09/17/18 09/17/18 Range/Units 07:15 06:30 06:30 WBC (4.5-11.0) 10^3/uL RBC (3.5-6.1) 10^6/uL Hgb (14.0-18.0) g/dL Hct (42.0-52.0) % MCV (80.0-105.0) fl MCH (25.0-35.0) pg MCHC (31.0-37.0) g/dl RDW (11.5-14.5) % Plt Count (120.0-450.0) 10^3/uL Neut % (Auto) (50.0-68.0) % Lymph % (Auto) (22.0-35.0) % Brooks % (Auto) (1.0-6.0) % Eos % (Auto) (1.5-5.0) % Baso % (Auto) (0.0-3.0) % Lymph # (Auto) (1.2-3.4) Brooks # (Auto) (0.1-0.6) Eos # (Auto) (0.0-0.7) Baso # (Auto) (0.0-2.0) K/mm3 Absolute Neuts (auto) (1.4-6.5) PT 15.1 H (9.4-12.5) SECONDS INR 1.34 APTT 35.4 (26.9-38.3) Seconds Fibrinogen (200-400) mg/dl Fibrin Degrad Products (< 10 ug/mL) D-Dimer, Quantitative (0-243) ng/mlDDU Sodium 138 (132-148) mmol/L Potassium 3.4 L (3.6-5.0) mmol/L Chloride 104 (98-107) mmol/L Carbon Dioxide 24 (21-33) mmol/L Anion Gap 13 (10-20) BUN 28 H (7-21) mg/dL Creatinine 2.1 H (0.8-1.5) mg/dl Est GFR ( Amer) 39 Est GFR (Non-Af Amer) 32 POC Glucose (mg/dL) 65 (65-110) mg/dL Random Glucose 73 (70-110) mg/dL Calcium 7.8 L (8.4-10.5) mg/dL Phosphorus 4.0 (2.5-4.5) mg/dL Magnesium 1.9 (1.7-2.2) mg/dL Total Bilirubin 0.5 (0.2-1.3) mg/dL Direct Bilirubin 0.5 H (0.0-0.4) mg/dL AST 24 (17-59) U/L ALT 19 (7-56) U/L Alkaline Phosphatase 101 (38-126) U/L Total Protein 5.3 L (5.8-8.3) g/dL Albumin 2.1 L (3.0-4.8) g/dL Globulin 3.1 gm/dL Albumin/Globulin Ratio 0.7 L (1.1-1.8) Blood Type Antibody Screen Crossmatch BBK History Checked 09/17/18 09/16/18 09/16/18 Range/Units 06:30 22:11 20:02 WBC 13.0 H (4.5-11.0) 10^3/uL RBC 4.79 (3.5-6.1) 10^6/uL Hgb 11.8 L (14.0-18.0) g/dL Hct 37.7 L (42.0-52.0) % MCV 78.7 L (80.0-105.0) fl MCH 24.6 L (25.0-35.0) pg MCHC 31.3 (31.0-37.0) g/dl RDW 19.2 H (11.5-14.5) % Plt Count 76 L (120.0-450.0) 10^3/uL Neut % (Auto) 88.8 H (50.0-68.0) % Lymph % (Auto) 7.2 L (22.0-35.0) % Brooks % (Auto) 3.7 (1.0-6.0) % Eos % (Auto) 0.2 L (1.5-5.0) % Baso % (Auto) 0.1 (0.0-3.0) % Lymph # (Auto) 0.9 L (1.2-3.4) Brooks # (Auto) 0.5 (0.1-0.6) Eos # (Auto) 0.0 (0.0-0.7) Baso # (Auto) 0.01 (0.0-2.0) K/mm3 Absolute Neuts (auto) 11.52 H (1.4-6.5) PT (9.4-12.5) SECONDS INR APTT (26.9-38.3) Seconds Fibrinogen (200-400) mg/dl Fibrin Degrad Products (< 10 ug/mL) D-Dimer, Quantitative (0-243) ng/mlDDU Sodium (132-148) mmol/L Potassium (3.6-5.0) mmol/L Chloride (98-107) mmol/L Carbon Dioxide (21-33) mmol/L Anion Gap (10-20) BUN (7-21) mg/dL Creatinine (0.8-1.5) mg/dl Est GFR ( Amer) Est GFR (Non-Af Amer) POC Glucose (mg/dL) 103 104 (65-110) mg/dL Random Glucose (70-110) mg/dL Calcium (8.4-10.5) mg/dL Phosphorus (2.5-4.5) mg/dL Magnesium (1.7-2.2) mg/dL Total Bilirubin (0.2-1.3) mg/dL Direct Bilirubin (0.0-0.4) mg/dL AST (17-59) U/L ALT (7-56) U/L Alkaline Phosphatase (38-126) U/L Total Protein (5.8-8.3) g/dL Albumin (3.0-4.8) g/dL Globulin gm/dL Albumin/Globulin Ratio (1.1-1.8) Blood Type Antibody Screen Crossmatch BBK History Checked 09/16/18 09/16/18 09/16/18 Range/Units 18:28 17:17 12:56 WBC (4.5-11.0) 10^3/uL RBC (3.5-6.1) 10^6/uL Hgb 11.5 L (14.0-18.0) g/dL Hct 36.0 L (42.0-52.0) % MCV (80.0-105.0) fl MCH (25.0-35.0) pg MCHC (31.0-37.0) g/dl RDW (11.5-14.5) % Plt Count (120.0-450.0) 10^3/uL Neut % (Auto) (50.0-68.0) % Lymph % (Auto) (22.0-35.0) % Brooks % (Auto) (1.0-6.0) % Eos % (Auto) (1.5-5.0) % Baso % (Auto) (0.0-3.0) % Lymph # (Auto) (1.2-3.4) Brooks # (Auto) (0.1-0.6) Eos # (Auto) (0.0-0.7) Baso # (Auto) (0.0-2.0) K/mm3 Absolute Neuts (auto) (1.4-6.5) PT (9.4-12.5) SECONDS INR APTT (26.9-38.3) Seconds Fibrinogen (200-400) mg/dl Fibrin Degrad Products (< 10 ug/mL) D-Dimer, Quantitative (0-243) ng/mlDDU Sodium (132-148) mmol/L Potassium (3.6-5.0) mmol/L Chloride (98-107) mmol/L Carbon Dioxide (21-33) mmol/L Anion Gap (10-20) BUN (7-21) mg/dL Creatinine (0.8-1.5) mg/dl Est GFR ( Amer) Est GFR (Non-Af Amer) POC Glucose (mg/dL) 65 88 (65-110) mg/dL Random Glucose (70-110) mg/dL Calcium (8.4-10.5) mg/dL Phosphorus (2.5-4.5) mg/dL Magnesium (1.7-2.2) mg/dL Total Bilirubin (0.2-1.3) mg/dL Direct Bilirubin (0.0-0.4) mg/dL AST (17-59) U/L ALT (7-56) U/L Alkaline Phosphatase (38-126) U/L Total Protein (5.8-8.3) g/dL Albumin (3.0-4.8) g/dL Globulin gm/dL Albumin/Globulin Ratio (1.1-1.8) Blood Type Antibody Screen Crossmatch BBK History Checked 09/16/18 09/16/18 09/16/18 Range/Units 12:30 07:35 07:05 WBC 14.1 H D (4.5-11.0) 10^3/uL RBC 3.01 L (3.5-6.1) 10^6/uL Hgb 11.9 L D 6.7 L* (14.0-18.0) g/dL Hct 37.9 L 23.2 L (42.0-52.0) % MCV 77.1 L (80.0-105.0) fl MCH 22.3 L (25.0-35.0) pg MCHC 28.9 L (31.0-37.0) g/dl RDW 21.2 H (11.5-14.5) % Plt Count 122 (120.0-450.0) 10^3/uL Neut % (Auto) 90.5 H (50.0-68.0) % Lymph % (Auto) 5.7 L (22.0-35.0) % Brooks % (Auto) 3.6 (1.0-6.0) % Eos % (Auto) 0.1 L (1.5-5.0) % Baso % (Auto) 0.1 (0.0-3.0) % Lymph # (Auto) 0.8 L (1.2-3.4) Brooks # (Auto) 0.5 (0.1-0.6) Eos # (Auto) 0.0 (0.0-0.7) Baso # (Auto) 0.01 (0.0-2.0) K/mm3 Absolute Neuts (auto) 12.74 H (1.4-6.5) PT (9.4-12.5) SECONDS INR APTT (26.9-38.3) Seconds Fibrinogen (200-400) mg/dl Fibrin Degrad Products (< 10 ug/mL) D-Dimer, Quantitative (0-243) ng/mlDDU Sodium (132-148) mmol/L Potassium (3.6-5.0) mmol/L Chloride (98-107) mmol/L Carbon Dioxide (21-33) mmol/L Anion Gap (10-20) BUN (7-21) mg/dL Creatinine (0.8-1.5) mg/dl Est GFR ( Amer) Est GFR (Non-Af Amer) POC Glucose (mg/dL) 160 H (65-110) mg/dL Random Glucose (70-110) mg/dL Calcium (8.4-10.5) mg/dL Phosphorus (2.5-4.5) mg/dL Magnesium (1.7-2.2) mg/dL Total Bilirubin (0.2-1.3) mg/dL Direct Bilirubin (0.0-0.4) mg/dL AST (17-59) U/L ALT (7-56) U/L Alkaline Phosphatase (38-126) U/L Total Protein (5.8-8.3) g/dL Albumin (3.0-4.8) g/dL Globulin gm/dL Albumin/Globulin Ratio (1.1-1.8) Blood Type Antibody Screen Crossmatch BBK History Checked 09/16/18 09/16/18 09/16/18 Range/Units 07:05 06:30 05:50 WBC (4.5-11.0) 10^3/uL RBC (3.5-6.1) 10^6/uL Hgb (14.0-18.0) g/dL Hct (42.0-52.0) % MCV (80.0-105.0) fl MCH (25.0-35.0) pg MCHC (31.0-37.0) g/dl RDW (11.5-14.5) % Plt Count (120.0-450.0) 10^3/uL Neut % (Auto) (50.0-68.0) % Lymph % (Auto) (22.0-35.0) % Brooks % (Auto) (1.0-6.0) % Eos % (Auto) (1.5-5.0) % Baso % (Auto) (0.0-3.0) % Lymph # (Auto) (1.2-3.4) Brooks # (Auto) (0.1-0.6) Eos # (Auto) (0.0-0.7) Baso # (Auto) (0.0-2.0) K/mm3 Absolute Neuts (auto) (1.4-6.5) PT (9.4-12.5) SECONDS INR APTT (26.9-38.3) Seconds Fibrinogen 122 L (200-400) mg/dl Fibrin Degrad Products >40 ug/ml (< 10 ug/mL) D-Dimer, Quantitative 4489 H (0-243) ng/mlDDU Sodium 141 (132-148) mmol/L Potassium 3.7 (3.6-5.0) mmol/L Chloride 104 (98-107) mmol/L Carbon Dioxide 26 (21-33) mmol/L Anion Gap 14 (10-20) BUN 59 H (7-21) mg/dL Creatinine 3.4 H (0.8-1.5) mg/dl Est GFR ( Amer) 22 Est GFR (Non-Af Amer) 18 POC Glucose (mg/dL) (65-110) mg/dL Random Glucose 167 H (70-110) mg/dL Calcium 8.2 L (8.4-10.5) mg/dL Phosphorus (2.5-4.5) mg/dL Magnesium (1.7-2.2) mg/dL Total Bilirubin 0.6 (0.2-1.3) mg/dL Direct Bilirubin (0.0-0.4) mg/dL AST 20 (17-59) U/L ALT 18 (7-56) U/L Alkaline Phosphatase 100 (38-126) U/L Total Protein 5.2 L (5.8-8.3) g/dL Albumin 2.3 L (3.0-4.8) g/dL Globulin 2.9 gm/dL Albumin/Globulin Ratio 0.8 L (1.1-1.8) Blood Type Antibody Screen Crossmatch BBK History Checked 09/14/18 Range/Units 16:32 WBC (4.5-11.0) 10^3/uL RBC (3.5-6.1) 10^6/uL Hgb (14.0-18.0) g/dL Hct (42.0-52.0) % MCV (80.0-105.0) fl MCH (25.0-35.0) pg MCHC (31.0-37.0) g/dl RDW (11.5-14.5) % Plt Count (120.0-450.0) 10^3/uL Neut % (Auto) (50.0-68.0) % Lymph % (Auto) (22.0-35.0) % Brooks % (Auto) (1.0-6.0) % Eos % (Auto) (1.5-5.0) % Baso % (Auto) (0.0-3.0) % Lymph # (Auto) (1.2-3.4) Brooks # (Auto) (0.1-0.6) Eos # (Auto) (0.0-0.7) Baso # (Auto) (0.0-2.0) K/mm3 Absolute Neuts (auto) (1.4-6.5) PT (9.4-12.5) SECONDS INR APTT (26.9-38.3) Seconds Fibrinogen (200-400) mg/dl Fibrin Degrad Products (< 10 ug/mL) D-Dimer, Quantitative (0-243) ng/mlDDU Sodium (132-148) mmol/L Potassium (3.6-5.0) mmol/L Chloride (98-107) mmol/L Carbon Dioxide (21-33) mmol/L Anion Gap (10-20) BUN (7-21) mg/dL Creatinine (0.8-1.5) mg/dl Est GFR ( Amer) Est GFR (Non-Af Amer) POC Glucose (mg/dL) (65-110) mg/dL Random Glucose (70-110) mg/dL Calcium (8.4-10.5) mg/dL Phosphorus (2.5-4.5) mg/dL Magnesium (1.7-2.2) mg/dL Total Bilirubin (0.2-1.3) mg/dL Direct Bilirubin (0.0-0.4) mg/dL AST (17-59) U/L ALT (7-56) U/L Alkaline Phosphatase (38-126) U/L Total Protein (5.8-8.3) g/dL Albumin (3.0-4.8) g/dL Globulin gm/dL Albumin/Globulin Ratio (1.1-1.8) Blood Type O POSITIVE Antibody Screen Negative Crossmatch See Detail BBK History Checked Patient has bt Laboratory Results - last 24 hr 09/14/18 09/16/18 09/16/18 16:32 05:50 06:30 WBC RBC Hgb Hct MCV MCH MCHC RDW Plt Count Neut % (Auto) Lymph % (Auto) Brooks % (Auto) Eos % (Auto) Baso % (Auto) Lymph # (Auto) Brooks # (Auto) Eos # (Auto) Baso # (Auto) Absolute Neuts (auto) PT INR APTT Fibrinogen Fibrin Degrad Products >40 ug/ml D-Dimer, Quantitative Sodium 141 Potassium 3.7 Chloride 104 Carbon Dioxide 26 Anion Gap 14 BUN 59 H Creatinine 3.4 H Est GFR ( Amer) 22 Est GFR (Non-Af Amer) 18 POC Glucose (mg/dL) Random Glucose 167 H Calcium 8.2 L Phosphorus Magnesium Total Bilirubin 0.6 Direct Bilirubin AST 20 ALT 18 Alkaline Phosphatase 100 Total Protein 5.2 L Albumin 2.3 L Globulin 2.9 Albumin/Globulin Ratio 0.8 L Blood Type O POSITIVE Antibody Screen Negative Crossmatch See Detail BBK History Checked Patient has bt 09/16/18 09/16/18 09/16/18 07:05 07:05 07:35 WBC 14.1 H D RBC 3.01 L Hgb 6.7 L* Hct 23.2 L MCV 77.1 L MCH 22.3 L MCHC 28.9 L RDW 21.2 H Plt Count 122 Neut % (Auto) 90.5 H Lymph % (Auto) 5.7 L Brooks % (Auto) 3.6 Eos % (Auto) 0.1 L Baso % (Auto) 0.1 Lymph # (Auto) 0.8 L Brooks # (Auto) 0.5 Eos # (Auto) 0.0 Baso # (Auto) 0.01 Absolute Neuts (auto) 12.74 H PT INR APTT Fibrinogen 122 L Fibrin Degrad Products D-Dimer, Quantitative 4489 H Sodium Potassium Chloride Carbon Dioxide Anion Gap BUN Creatinine Est GFR ( Amer) Est GFR (Non-Af Amer) POC Glucose (mg/dL) 160 H Random Glucose Calcium Phosphorus Magnesium Total Bilirubin Direct Bilirubin AST ALT Alkaline Phosphatase Total Protein Albumin Globulin Albumin/Globulin Ratio Blood Type Antibody Screen Crossmatch BBK History Checked 09/16/18 09/16/18 09/16/18 12:30 12:56 17:17 WBC RBC Hgb 11.9 L D Hct 37.9 L MCV MCH MCHC RDW Plt Count Neut % (Auto) Lymph % (Auto) Brooks % (Auto) Eos % (Auto) Baso % (Auto) Lymph # (Auto) Brooks # (Auto) Eos # (Auto) Baso # (Auto) Absolute Neuts (auto) PT INR APTT Fibrinogen Fibrin Degrad Products D-Dimer, Quantitative Sodium Potassium Chloride Carbon Dioxide Anion Gap BUN Creatinine Est GFR ( Amer) Est GFR (Non-Af Amer) POC Glucose (mg/dL) 88 65 Random Glucose Calcium Phosphorus Magnesium Total Bilirubin Direct Bilirubin AST ALT Alkaline Phosphatase Total Protein Albumin Globulin Albumin/Globulin Ratio Blood Type Antibody Screen Crossmatch BBK History Checked 09/16/18 09/16/18 09/16/18 18:28 20:02 22:11 WBC RBC Hgb 11.5 L Hct 36.0 L MCV MCH MCHC RDW Plt Count Neut % (Auto) Lymph % (Auto) Brooks % (Auto) Eos % (Auto) Baso % (Auto) Lymph # (Auto) Brooks # (Auto) Eos # (Auto) Baso # (Auto) Absolute Neuts (auto) PT INR APTT Fibrinogen Fibrin Degrad Products D-Dimer, Quantitative Sodium Potassium Chloride Carbon Dioxide Anion Gap BUN Creatinine Est GFR ( Amer) Est GFR (Non-Af Amer) POC Glucose (mg/dL) 104 103 Random Glucose Calcium Phosphorus Magnesium Total Bilirubin Direct Bilirubin AST ALT Alkaline Phosphatase Total Protein Albumin Globulin Albumin/Globulin Ratio Blood Type Antibody Screen Crossmatch BBK History Checked 09/17/18 09/17/18 09/17/18 06:30 06:30 06:30 WBC 13.0 H RBC 4.79 Hgb 11.8 L Hct 37.7 L MCV 78.7 L MCH 24.6 L MCHC 31.3 RDW 19.2 H Plt Count 76 L Neut % (Auto) 88.8 H Lymph % (Auto) 7.2 L Brooks % (Auto) 3.7 Eos % (Auto) 0.2 L Baso % (Auto) 0.1 Lymph # (Auto) 0.9 L Brooks # (Auto) 0.5 Eos # (Auto) 0.0 Baso # (Auto) 0.01 Absolute Neuts (auto) 11.52 H PT 15.1 H INR 1.34 APTT 35.4 Fibrinogen Fibrin Degrad Products D-Dimer, Quantitative Sodium 138 Potassium 3.4 L Chloride 104 Carbon Dioxide 24 Anion Gap 13 BUN 28 H Creatinine 2.1 H Est GFR ( Amer) 39 Est GFR (Non-Af Amer) 32 POC Glucose (mg/dL) Random Glucose 73 Calcium 7.8 L Phosphorus 4.0 Magnesium 1.9 Total Bilirubin 0.5 Direct Bilirubin 0.5 H AST 24 ALT 19 Alkaline Phosphatase 101 Total Protein 5.3 L Albumin 2.1 L Globulin 3.1 Albumin/Globulin Ratio 0.7 L Blood Type Antibody Screen Crossmatch BBK History Checked 09/17/18 07:15 WBC RBC Hgb Hct MCV MCH MCHC RDW Plt Count Neut % (Auto) Lymph % (Auto) Brooks % (Auto) Eos % (Auto) Baso % (Auto) Lymph # (Auto) Brooks # (Auto) Eos # (Auto) Baso # (Auto) Absolute Neuts (auto) PT INR APTT Fibrinogen Fibrin Degrad Products D-Dimer, Quantitative Sodium Potassium Chloride Carbon Dioxide Anion Gap BUN Creatinine Est GFR ( Amer) Est GFR (Non-Af Amer) POC Glucose (mg/dL) 65 Random Glucose Calcium Phosphorus Magnesium Total Bilirubin Direct Bilirubin AST ALT Alkaline Phosphatase Total Protein Albumin Globulin Albumin/Globulin Ratio Blood Type Antibody Screen Crossmatch BBK History Checked Radiology Impressions: Radiology Impressions Chest X-Ray 09/15/18 18:39 IMPRESSION: Right IJ line terminates in the right atrium with no pneumothorax Head CT 09/16/18 09:57 IMPRESSION: No acute intracranial findings Fingerstick Blood Sugar Results: 103 Critical Care Progress Note - Nutrition Nutrition: Nutrition Category Date Time Status Liquid Diet [DIET] Diets 09/17/18 Breakfast Ordered Assessment/Plan - Assessment and Plan (Free Text) Assessment: Pt is a 67 yo male with a PMH of ADPKD s/p renal transplant, ESRD on HD, severe , DM2, HTN, and AAA who was admitted for lethargy and diarrhea, treated for UTI, who was then transferred to TCU where he had a bloody bowel movement and was transferred to ICU. Plan: Neuro - pt confused - continue to monitor neuro status Cardio - HTN, severe , and unrepaired infrarenal AAA - lipitor, zetia - trop negative - Maintain MAP >65 - will start beta fe for AAA in the future - angiogram negative for fistula - CT abd/pelvis w/o contrast: Extensive atherosclerotic calcifications of severely aneurysmal abdominal aorta. 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 - right femoral central line placed, midline has failed, pt pulled out previous central line - Cardio consulted, Dr Shane hemodynamically stable for his planned GI workup Pulm - stable on room air - maintain O2 sat >92% GI - 1 episode of bloody BM this morning - Hgb 11.8, continue to monitor - liquid diet, ADAT - bleeding scan negative - CT abd/pelvis w/o contrast: Extensive diverticulosis. Heterogeneous liver with hypodensities, tiny cysts or hemangiomas - GI consulted, Dr Cordova EGD showed no signs of upper GI bleeding. Sigmoidoscopy showed ulcers, no plan for colonoscopy today - Surgery consulted Nephro/ - ADPKD s/p renal allograft, ESRD on HD, Chronic kidney disease - CT abd/pelvis w/o contrast: Innumerable bilateral renal cysts of the [place] kidneys consistent with PKD. Hydronephrosis of the transplanted kidney. 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 - Heme/onc consulted, Dr Leigh Endocrine - DM - ISS Pt seen, examined, assessment and plan discussed with Dr Serenity Gross PGY1 - Date & Time Date: 09/17/18 Time: 07:00 <Serenity Murray - Last Filed: 09/17/18 17:55> CCU Objective - Vital Signs / Intake & Output Vital Signs (Last 4 hours): Vital Signs Pulse Resp BP 09/17/18 17:37 114 H 134/81 09/17/18 15:43 105 H 14 09/17/18 15:42 106 H 14 09/17/18 15:41 108 H 24 09/17/18 15:40 106 H 24 09/17/18 15:39 105 H 13 09/17/18 15:38 107 H 17 09/17/18 15:37 107 H 15 09/17/18 15:36 105 H 14 09/17/18 15:35 105 H 13 09/17/18 15:34 105 H 16 09/17/18 15:33 104 H 14 09/17/18 15:32 103 H 13 09/17/18 15:31 104 H 14 09/17/18 15:30 105 H 13 09/17/18 15:29 104 H 18 09/17/18 15:28 105 H 15 09/17/18 15:27 105 H 14 09/17/18 15:26 104 H 14 09/17/18 15:25 106 H 18 09/17/18 15:24 107 H 24 09/17/18 15:23 106 H 24 09/17/18 15:22 109 H 21 09/17/18 15:21 112 H 32 H 09/17/18 15:20 113 H 29 H 09/17/18 15:19 111 H 22 09/17/18 15:18 116 H 38 H 09/17/18 15:17 114 H 25 H 09/17/18 15:16 107 H 20 09/17/18 15:15 105 H 15 09/17/18 15:14 105 H 14 09/17/18 15:13 107 H 16 09/17/18 15:12 105 H 14 09/17/18 15:11 104 H 12 09/17/18 15:10 107 H 24 09/17/18 15:09 107 H 16 09/17/18 15:08 104 H 14 09/17/18 15:07 105 H 15 09/17/18 15:06 106 H 16 09/17/18 15:05 108 H 09/17/18 15:04 112 H 18 09/17/18 15:03 107 H 24 09/17/18 15:02 107 H 23 09/17/18 15:01 109 H 20 09/17/18 15:00 164/96 H 09/17/18 14:59 105 H 15 09/17/18 14:58 105 H 17 09/17/18 14:57 105 H 16 09/17/18 14:56 108 H 17 09/17/18 14:55 108 H 20 09/17/18 14:31 105 H 23 09/17/18 14:30 162/109 H 09/17/18 14:29 107 H 23 09/17/18 14:28 109 H 16 09/17/18 14:27 107 H 35 H 09/17/18 14:26 108 H 26 H 09/17/18 14:25 109 H 20 09/17/18 14:24 108 H 15 09/17/18 14:23 108 H 24 09/17/18 14:22 109 H 29 H 09/17/18 14:21 113 H 30 H 09/17/18 14:20 108 H 29 H 09/17/18 14:19 110 H 23 09/17/18 14:18 111 H 26 H 09/17/18 14:17 112 H 47 H 09/17/18 14:16 113 H 22 09/17/18 14:15 166/113 H 09/17/18 14:14 111 H 22 09/17/18 14:13 111 H 23 09/17/18 14:12 110 H 09/17/18 14:11 109 H 24 09/17/18 14:10 111 H 22 09/17/18 14:09 111 H 26 H 09/17/18 14:08 111 H 20 09/17/18 14:07 109 H 17 09/17/18 14:06 110 H 22 09/17/18 14:05 107 H 30 H 09/17/18 14:04 111 H 22 09/17/18 14:03 113 H 28 H 09/17/18 14:02 112 H 30 H 09/17/18 14:01 111 H 10 L 09/17/18 14:00 165/98 H 09/17/18 13:59 110 H 22 09/17/18 13:58 112 H 23 09/17/18 13:57 110 H 24 09/17/18 13:56 111 H 22 09/17/18 13:55 115 H 25 H 09/17/18 13:54 111 H 17 - Medications Active Medications: Active Medications Generic Name Dose Route Start Last Admin Trade Name Freq PRN Reason Stop Dose Admin Acetaminophen 650 mg 09/14/18 19:20 Tylenol 325mg Tab PO Q4H PRN temp > 99.5F Acetaminophen 650 mg 09/15/18 08:40 Tylenol 325mg Tab PO Q6 PRN TEMP>=99.5F Acetaminophen 650 mg 09/15/18 08:40 Tylenol 650 Mg Supp RC Q6H PRN TEMP>=99.5F Atorvastatin Calcium 10 mg 09/15/18 17:00 09/17/18 17:24 Lipitor PO 10 mg DIN TAWANA Administration Cyproheptadine HCl 4 mg 09/15/18 10:00 09/17/18 17:24 Periactin PO 4 mg BID TA[place]NA Administration Ezetimibe 10 mg 09/15/18 10:00 09/17/18 09:41 Zetia PO 10 mg DAILY TA[place]NA Administration Famotidine 40 mg 09/14/18 22:00 09/16/18 22:37 Pepcid PO 40 mg HS TAWANA Administration Sodium Chloride 500 mls @ 10 mls/hr 09/14/18 16:58 09/17/18 17:26 Sodium Chloride 0.9% IV Not Given .Q24H [place]NA Ceftriaxone Sodium 1 gm in 100 mls @ 100 mls/hr 09/15/18 10:00 09/17/18 09:42 Rocephin 1 Gram Ivpb IVPB 100 mls/hr DAILY TA[place]NA Administration Protocol Insulin Human Regular 0 units 09/14/18 22:00 09/17/18 17:33 Humulin R Low SC Not Given ACHS TA[place]NA Protocol Levalbuterol HCl 0.63 mg 09/15/18 14:00 09/17/18 13:09 Xopenex IH 0.63 mg [id number] TAWANA Administration Lidocaine 1 ea 09/15/18 10:00 09/17/18 09:43 Lidoderm TD 1 ea DAILY TA[place]NA Administration Metoprolol Tartrate 25 mg 09/17/18 18:00 09/17/18 17:37 Lopressor PO 25 mg BID [place] Administration Ondansetron HCl 4 mg 09/15/18 08:40 Zofran Inj IVP Q4H PRN Nausea/Vomiting Pantoprazole Sodium 40 mg 09/17/18 10:00 09/17/18 10:00 Protonix Inj IVP 40 mg DAILY TA[place] Administration Polyethylene Glycol 17 gm 09/17/18 10:00 09/17/18 17:28 Miralax PO Not Given BID TAWANA Prednisone 5 mg 09/15/18 08:00 09/17/18 07:48 Prednisone Tab PO 5 mg BRK [place] Administration Thiamine HCl 100 mg 09/17/18 10:00 09/17/18 11:00 Vitamin B1 Tab PO 100 mg DAILY TA[place]NA Administration - Patient Studies Lab Studies: Microbiology Studies 09/14/18 17:07 Blood Culture - Preliminary Blood NO GROWTH AFTER 3 DAYS 09/14/18 16:37 Blood Culture - Preliminary Blood NO GROWTH AFTER 3 DAYS 09/14/18 22:00 MRSA Culture (Admit) - Final Naris MRSA NOT DETECTED Lab Studies 09/17/18 09/17/18 09/17/18 Range/Units 16:01 07:15 06:30 WBC 14.0 H (4.5-11.0) 10^3/uL RBC 4.68 (3.5-6.1) 10^6/uL Hgb 11.4 L (14.0-18.0) g/dL Hct 36.9 L (42.0-52.0) % MCV 78.8 L (80.0-105.0) fl MCH 24.4 L (25.0-35.0) pg MCHC 30.9 L (31.0-37.0) g/dl RDW 19.7 H (11.5-14.5) % Plt Count 93 L (120.0-450.0) 10^3/uL Neut % (Auto) 95.8 H (50.0-68.0) % Lymph % (Auto) 2.6 L (22.0-35.0) % Brooks % (Auto) 1.6 (1.0-6.0) % Eos % (Auto) 0.0 L (1.5-5.0) % Baso % (Auto) 0.0 (0.0-3.0) % Lymph # (Auto) 0.4 L (1.2-3.4) Brooks # (Auto) 0.2 (0.1-0.6) Eos # (Auto) 0.0 (0.0-0.7) Baso # (Auto) 0.00 (0.0-2.0) K/mm3 Absolute Neuts (auto) 13.44 H (1.4-6.5) PT (9.4-12.5) SECONDS INR APTT (26.9-38.3) Seconds Sodium 138 (132-148) mmol/L Potassium 3.4 L (3.6-5.0) mmol/L Chloride 104 (98-107) mmol/L Carbon Dioxide 24 (21-33) mmol/L Anion Gap 13 (10-20) BUN 28 H (7-21) mg/dL Creatinine 2.1 H (0.8-1.5) mg/dl Est GFR ( Amer) 39 Est GFR (Non-Af Amer) 32 POC Glucose (mg/dL) 65 (65-110) mg/dL Random Glucose 73 (70-110) mg/dL Calcium 7.8 L (8.4-10.5) mg/dL Phosphorus 4.0 (2.5-4.5) mg/dL Magnesium 1.9 (1.7-2.2) mg/dL Total Bilirubin 0.5 (0.2-1.3) mg/dL Direct Bilirubin 0.5 H (0.0-0.4) mg/dL AST 24 (17-59) U/L ALT 19 (7-56) U/L Alkaline Phosphatase 101 (38-126) U/L Total Protein 5.3 L (5.8-8.3) g/dL Albumin 2.1 L (3.0-4.8) g/dL Globulin 3.1 gm/dL Albumin/Globulin Ratio 0.7 L (1.1-1.8) 09/17/18 09/17/18 09/16/18 Range/Units 06:30 06:30 22:11 WBC 13.0 H (4.5-11.0) 10^3/uL RBC 4.79 (3.5-6.1) 10^6/uL Hgb 11.8 L (14.0-18.0) g/dL Hct 37.7 L (42.0-52.0) % MCV 78.7 L (80.0-105.0) fl MCH 24.6 L (25.0-35.0) pg MCHC 31.3 (31.0-37.0) g/dl RDW 19.2 H (11.5-14.5) % Plt Count 76 L (120.0-450.0) 10^3/uL Neut % (Auto) 88.8 H (50.0-68.0) % Lymph % (Auto) 7.2 L (22.0-35.0) % Brooks % (Auto) 3.7 (1.0-6.0) % Eos % (Auto) 0.2 L (1.5-5.0) % Baso % (Auto) 0.1 (0.0-3.0) % Lymph # (Auto) 0.9 L (1.2-3.4) Brooks # (Auto) 0.5 (0.1-0.6) Eos # (Auto) 0.0 (0.0-0.7) Baso # (Auto) 0.01 (0.0-2.0) K/mm3 Absolute Neuts (auto) 11.52 H (1.4-6.5) PT 15.1 H (9.4-12.5) SECONDS INR 1.34 APTT 35.4 (26.9-38.3) Seconds Sodium (132-148) mmol/L Potassium (3.6-5.0) mmol/L Chloride (98-107) mmol/L Carbon Dioxide (21-33) mmol/L Anion Gap (10-20) BUN (7-21) mg/dL Creatinine (0.8-1.5) mg/dl Est GFR ( Amer) Est GFR (Non-Af Amer) POC Glucose (mg/dL) 103 (65-110) mg/dL Random Glucose (70-110) mg/dL Calcium (8.4-10.5) mg/dL Phosphorus (2.5-4.5) mg/dL Magnesium (1.7-2.2) mg/dL Total Bilirubin (0.2-1.3) mg/dL Direct Bilirubin (0.0-0.4) mg/dL AST (17-59) U/L ALT (7-56) U/L Alkaline Phosphatase (38-126) U/L Total Protein (5.8-8.3) g/dL Albumin (3.0-4.8) g/dL Globulin gm/dL Albumin/Globulin Ratio (1.1-1.8) 09/16/18 09/16/18 Range/Units 20:02 18:28 WBC (4.5-11.0) 10^3/uL RBC (3.5-6.1) 10^6/uL Hgb 11.5 L (14.0-18.0) g/dL Hct 36.0 L (42.0-52.0) % MCV (80.0-105.0) fl MCH (25.0-35.0) pg MCHC (31.0-37.0) g/dl RDW (11.5-14.5) % Plt Count (120.0-450.0) 10^3/uL Neut % (Auto) (50.0-68.0) % Lymph % (Auto) (22.0-35.0) % Brooks % (Auto) (1.0-6.0) % Eos % (Auto) (1.5-5.0) % Baso % (Auto) (0.0-3.0) % Lymph # (Auto) (1.2-3.4) Brooks # (Auto) (0.1-0.6) Eos # (Auto) (0.0-0.7) Baso # (Auto) (0.0-2.0) K/mm3 Absolute Neuts (auto) (1.4-6.5) PT (9.4-12.5) SECONDS INR APTT (26.9-38.3) Seconds Sodium (132-148) mmol/L Potassium (3.6-5.0) mmol/L Chloride (98-107) mmol/L Carbon Dioxide (21-33) mmol/L Anion Gap (10-20) BUN (7-21) mg/dL Creatinine (0.8-1.5) mg/dl Est GFR ( Amer) Est GFR (Non-Af Amer) POC Glucose (mg/dL) 104 (65-110) mg/dL Random Glucose (70-110) mg/dL Calcium (8.4-10.5) mg/dL Phosphorus (2.5-4.5) mg/dL Magnesium (1.7-2.2) mg/dL Total Bilirubin (0.2-1.3) mg/dL Direct Bilirubin (0.0-0.4) mg/dL AST (17-59) U/L ALT (7-56) U/L Alkaline Phosphatase (38-126) U/L Total Protein (5.8-8.3) g/dL Albumin (3.0-4.8) g/dL Globulin gm/dL Albumin/Globulin Ratio (1.1-1.8) Laboratory Results - last 24 hr 09/16/18 09/16/18 09/16/18 18:28 20:02 22:11 WBC RBC Hgb 11.5 L Hct 36.0 L MCV MCH MCHC RDW Plt Count Neut % (Auto) Lymph % (Auto) Brooks % (Auto) Eos % (Auto) Baso % (Auto) Lymph # (Auto) Brooks # (Auto) Eos # (Auto) Baso # (Auto) Absolute Neuts (auto) PT INR APTT Sodium Potassium Chloride Carbon Dioxide Anion Gap BUN Creatinine Est GFR ( Amer) Est GFR (Non-Af Amer) POC Glucose (mg/dL) 104 103 Random Glucose Calcium Phosphorus Magnesium Total Bilirubin Direct Bilirubin AST ALT Alkaline Phosphatase Total Protein Albumin Globulin Albumin/Globulin Ratio 09/17/18 09/17/18 09/17/18 06:30 06:30 06:30 WBC 13.0 H RBC 4.79 Hgb 11.8 L Hct 37.7 L MCV 78.7 L MCH 24.6 L MCHC 31.3 RDW 19.2 H Plt Count 76 L Neut % (Auto) 88.8 H Lymph % (Auto) 7.2 L Brooks % (Auto) 3.7 Eos % (Auto) 0.2 L Baso % (Auto) 0.1 Lymph # (Auto) 0.9 L Brooks # (Auto) 0.5 Eos # (Auto) 0.0 Baso # (Auto) 0.01 Absolute Neuts (auto) 11.52 H PT 15.1 H INR 1.34 APTT 35.4 Sodium 138 Potassium 3.4 L Chloride 104 Carbon Dioxide 24 Anion Gap 13 BUN 28 H Creatinine 2.1 H Est GFR ( Amer) 39 Est GFR (Non-Af Amer) 32 POC Glucose (mg/dL) Random Glucose 73 Calcium 7.8 L Phosphorus 4.0 Magnesium 1.9 Total Bilirubin 0.5 Direct Bilirubin 0.5 H AST 24 ALT 19 Alkaline Phosphatase 101 Total Protein 5.3 L Albumin 2.1 L Globulin 3.1 Albumin/Globulin Ratio 0.7 L 09/17/18 09/17/18 07:15 16:01 WBC 14.0 H RBC 4.68 Hgb 11.4 L Hct 36.9 L MCV 78.8 L MCH 24.4 L MCHC 30.9 L RDW 19.7 H Plt Count 93 L Neut % (Auto) 95.8 H Lymph % (Auto) 2.6 L Brooks % (Auto) 1.6 Eos % (Auto) 0.0 L Baso % (Auto) 0.0 Lymph # (Auto) 0.4 L Brooks # (Auto) 0.2 Eos # (Auto) 0.0 Baso # (Auto) 0.00 Absolute Neuts (auto) 13.44 H PT INR APTT Sodium Potassium Chloride Carbon Dioxide Anion Gap BUN Creatinine Est GFR ( Amer) Est GFR (Non-Af Amer) POC Glucose (mg/dL) 65 Random Glucose Calcium Phosphorus Magnesium Total Bilirubin Direct Bilirubin AST ALT Alkaline Phosphatase Total Protein Albumin Globulin Albumin/Globulin Ratio Radiology Impressions: Radiology Impressions Chest X-Ray 09/16/18 10:27 IMPRESSION: No active disease. Chest X-Ray 09/17/18 06:00 IMPRESSION: Small right-sided effusion. No evidence of CHF Hemodialysis Access Duplex US 09/17/18 10:34 IMPRESSION: No sonographic evidence of subcutaneous abscess. Patent left upper extremity AVF with focal aneurysmal dilatation. Critical Care Progress Note - Nutrition Nutrition: Nutrition Category Date Time Status Renal Diet [DIET] Diets 09/17/18 Dinner Ordered Addendum Addendum: 09/17/18 17:53 MICU Attending Addendum: Patient seen and examined with housestaff, case discussed on rounds. I agree with resident note above with the following additions/exceptions: 67 M with PMH of ADPKD s/p renal transplant, ESRD on HD, severe , DM2, HTN, and AAA who we are managing for acute GI bleeding continues nto have episodes of bloody BM s/p EGD which was clean s/p flex sig d/w Dr Cordova who states on flex sig rectal ulcers seen and no blood seen above rectum likely source is rectal ulcer feel patient is too high risk for colnscopy given lasre AAA recommmends cleaning out bowel with prep and allowing only clear liq diet f/u gi recs HD as per nephro scd for dvt ppx ppi for gi ppx Rest of care as per resident note above Serenity Murray MD Attending Pulmonary Critical Care Sleep Medicine
[2018-09-17] MEDS: Insulin Reg-LOW-Coverage SC SCH ×4 (07:47→22:12)
--- NOTE | 2018-09-17 08:24 | PN ---
DATE: 09/16/2018 SUBJECTIVE: The patient is in bed in no acute distress. Was seen earlier today in 129, bed 7. PHYSICAL EXAMINATION: VITAL SIGNS: Temperature is 98, blood pressure is 140/90, respiratory rate 18, heart rate of 109. HEENT: Unremarkable. NECK: Supple. LUNGS: Decreased breath sounds. LABORATORY DATA: Reveals the patient's white count of 14,000, hemoglobin of 6, BUN 59, creatinine of 3.4. Urinalysis is noted. Blood cultures are negative. ASSESSMENT AN PLAN: This is a 67-year-old male history of polycystic kidney disease, renal transplant 2006, diabetes mellitus, aortic valve replacement for aortic stenosis. The patient also has a large unrepaired AAA with end-stage renal disease, on hemodialysis and has been treated for with Klebsiella bacteremia secondary to Klebsiella urinary tract infection, on ceftriaxone. The patient with a large bloody bowel movements. GI workup in progress. Currently on ceftriaxone. The patient's repeat cultures are negative. Initial cultures from 09/03/2018 were positive.. #13 of therapy. We will discontinue ceftriaxone after tomorrow's last dose. Bishop Squires MD
--- NOTE | 2018-09-17 08:43 | PN ---
DATE: 09/17/2018 SUBJECTIVE: The patient is in bed in no acute distress, nontoxic. PHYSICAL EXAMINATION: VITAL SIGNS: Temperature is 98, blood pressure is 140/80, respiratory rate of 18. HEENT: Unremarkable. NECK: Supple. LUNGS: Have decreased breath sounds. HEART: Normal S1 and S2. ABDOMEN: Soft. LABORATORY DATA: Reveals a white count of 13,000, BUN of 28, creatinine of 2.1. Blood cultures are negative. MRSA is not detected. MEDICATIONS: Review of orders reveals the patient is on prednisone and ceftriaxone. ASSESSMENT AND PLAN: This is a 67-year-old male with Klebsiella bacteremia secondary to Klebsiella urinary tract infection, now admitted with gastrointestinal bleeding and will complete the ceftriaxone therapy. The patient with polycystic kidney disease; end-stage renal disease, on hemodialysis; renal transplant 2007 with diabetes mellitus; aortic stenosis; aortic valve replacement ;and a large unrepaired abdominal aortic aneurysm. Overall prognosis is quite poor. The patient's repeat blood cultures are negative, the initial culture is from 09/03/2018. Today is day #14 of antibiotics. Bishop Squires MD
[2018-09-17] MEDS ORDERED: Potassium Chloride 20 mEq/15 ml LIQ UD PO ONE (09:14)
--- NOTE | 2018-09-17 09:15 | PN ---
DATE: 09/17/2018 CARDIOLOGY FOLLOWUP SUBJECTIVE: The patient is resting comfortably. PHYSICAL EXAMINATION VITAL SIGNS: Blood pressure 143/87, heart rate in the 90s. NECK: Negative JVD. LUNGS: Without rales. HEART: Reveals S1, S2. EXTREMITIES: Without edema. LABORATORY DATA: Hemoglobin is 11.8 today and stable. BUN and creatinine 28 and 2.1. IMPRESSION: 1. Gastrointestinal bleed. 2. Anemia. 3. End-stage renal disease. 4. Aortic valve sclerosis. 5. Diabetes mellitus. 6. History of abdominal aortic aneurysm. PLAN: Given these findings, the patient is hemodynamically stable. Will need to follow up his hemoglobin and continue on his present medications. Carlos Shane MD
--- NOTE | 2018-09-17 09:20 | US ---
Date of service: 09/17/2018 PROCEDURE: Left upper extremity AV fistula duplex ultrasound HISTORY: fluctuant area overlying aneurysmal AVF, r/o absce COMPARISON: TECHNIQUE: FINDINGS: The anastomosis is well visualized and patent on the be scale images. There is turbulent flow without significantly elevated velocities. The visualized deep venous outflow is well developed and tortuous. 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 No obvious fluid or abscess is appreciated. IMPRESSION: No sonographic evidence of subcutaneous abscess. Patent left upper extremity AVF with focal aneurysmal dilatation.
[2018-09-17] MEDS: cefTRIAXone 1 gm 1 GM/100 ML BAG IVPB SCH (09:42)
[2018-09-17] MEDS: Lidocaine 5% Patch TD SCH (09:43)
[2018-09-17] MEDS: POLYETHYLENE GLYCOL 3350 17 GM/Dose PACKET PO SCH ×2 (09:45→17:28)
--- NOTE | 2018-09-17 10:40 | RAD ---
Date of service: 09/16/2018 HISTORY: reassess, prior pleural effusions COMPARISON: 09/15/2018 TECHNIQUE: 1 view obtained. FINDINGS: LUNGS: No active pulmonary disease. PLEURA: Small right pleural effusion CARDIOVASCULAR: No aortic atherosclerotic calcification present. Aortic tortuosity Normal cardiac size. No pulmonary vascular congestion. OSSEOUS STRUCTURES: Sternal wires VISUALIZED UPPER ABDOMEN: Normal. OTHER FINDINGS: None. IMPRESSION: No active disease.
--- NOTE | 2018-09-17 10:50 | RAD ---
Date of service: 09/17/2018 HISTORY: r/o CHF COMPARISON: 09/16/2018 TECHNIQUE: 1 view obtained. FINDINGS: LUNGS: No active pulmonary disease. PLEURA: Small right effusion CARDIOVASCULAR: No aortic atherosclerotic calcification present. Aortic tortuosity Normal cardiac size. No pulmonary vascular congestion. OSSEOUS STRUCTURES: Sternal wires VISUALIZED UPPER ABDOMEN: Normal. OTHER FINDINGS: None. IMPRESSION: Small right-sided effusion. No evidence of CHF
--- NOTE | 2018-09-17 11:29 | CP.PCM.PN ---
Subjective - Date & Time of Evaluation Date of Evaluation: 09/17/18 Time of Evaluation: 09:20 - Subjective Subjective: General Surgery Progress Note for Dr. Al Richards, PGY1 Patient seen and examined at bedside this morning. Patient had bloody BM last night and BM this morning with red spotting. Patient is AO x3 today and is requesting diet. S/p EGD and flex sig on 09/16. Denies CP, SOB, abdominal pain, fevers, nausea, vomiting and dizziness. Objective - Vital Signs/Intake and Output Vital Signs (last 24 hours): Temp Pulse Resp BP Pulse Ox 98.2 F 96 H 13 143/87 100 09/16/18 18:06 09/17/18 08:00 09/16/18 22:30 09/16/18 22:30 09/16/18 22:30 - Medications Medications: Current Medications Acetaminophen (Tylenol 325mg Tab) 650 mg PO Q4H PRN PRN Reason: temp > 99.5F Acetaminophen (Tylenol 325mg Tab) 650 mg PO Q6 PRN PRN Reason: TEMP>=99.5F Acetaminophen (Tylenol 650 Mg Supp) 650 mg RC Q6H PRN PRN Reason: TEMP>=99.5F Atorvastatin Calcium (Lipitor) 10 mg PO DIN [facility] Last Admin: 09/16/18 17:45 Dose: 10 mg Cyproheptadine HCl (Periactin) 4 mg PO BID [facility] Last Admin: 09/17/18 09:42 Dose: 4 mg Ezetimibe (Zetia) 10 mg PO DAILY [facility] Last Admin: 09/17/18 09:41 Dose: 10 mg Famotidine (Pepcid) 40 mg PO HS [facility] Last Admin: 09/16/18 22:37 Dose: 40 mg Sodium Chloride (Sodium Chloride 0.9%) 500 mls @ 10 mls/hr IV .Q24H [facility] Last Admin: 09/14/18 17:18 Dose: 10 mls/hr Ceftriaxone Sodium (Rocephin 1 Gram Ivpb) 1 gm in 100 mls @ 100 mls/hr IVPB DAILY [facility]; Protocol Last Admin: 09/17/18 09:42 Dose: 100 mls/hr Insulin Human Regular (Humulin R Low) 0 units SC ACHS [facility]; Protocol Last Admin: 09/17/18 07:47 Dose: Not Given Levalbuterol HCl (Xopenex) 0.63 mg IH [id number] [facility] Last Admin: 09/17/18 07:59 Dose: 0.63 mg Lidocaine (Lidoderm) 1 ea TD DAILY [facility] Last Admin: 09/17/18 09:43 Dose: 1 ea Ondansetron HCl (Zofran Inj) 4 mg IVP Q4H PRN PRN Reason: Nausea/Vomiting Pantoprazole Sodium (Protonix Inj) 40 mg IVP DAILY [facility] Polyethylene Glycol (Miralax) 17 gm PO BID [facility] Last Admin: 09/17/18 09:45 Dose: Not Given Prednisone (Prednisone Tab) 5 mg PO BRK [facility] Last Admin: 09/17/18 07:48 Dose: 5 mg Thiamine HCl (Vitamin B1 Tab) 100 mg PO DAILY [facility] - Labs Labs: 09/17/18 06:30 09/17/18 06:30 PT 15.1 SECONDS (9.4-12.5) H 09/17/18 06:30 INR 1.34 09/17/18 06:30 APTT 35.4 Seconds (26.9-38.3) 09/17/18 06:30 - Constitutional Appears: No Acute Distress, Cachectic, Chronically Ill - Head Head Exam: right sided facial swelling noted, improved - Eyes Eye Exam: EOMI - Respiratory Exam Respiratory Exam: Clear to Ausculation Bilateral. absent: Accessory Muscle Use, Respiratory Distress - Cardiovascular Exam Cardiovascular Exam: REGULAR RHYTHM, +S1, +S2 - GI/Abdominal Exam GI & Abdominal Exam: Soft. Nontender. Bowel sounds appreciated in all 4 quadrants. Pulsatile mass appreciated on right side of abdomen. absent: Guarding, Rigid - Neurological Exam Neurological Exam: CN II-XII Intact, Oriented x3, Alert Additional exam: Moving all extremities spontaneously, no motor/sensory deficits appreciated - Extremities Exam Extremities Exam: Normal Inspection. absent: Calf Tenderness, Tenderness Additional comments: cachectic lower extremities noted Assessment and Plan - Assessment and Plan (Free Text) Assessment: This is a 67 year old male with extensive past medical history presenting to the hospital for lower GI bleeding. Lower GI Bleeding - consider diverticular disease vs corneal ulcerations in rectum Anemia ESRD on HD Infrarenal AAA Thrombocytopenia ADPKD UTI Bactermia 2/2 klebsiella Plan: -s/p 3 units PRBC, 3 units platelets, 1 unit FFP -Hg is 11.8 from 6.8 yesterday -EGD on 09/16 showed no upper GI source of bleeding -flex sig on 09/16 showed multiple ulcers in rectum suggesting subcortical ulceration. No blood in the sigmoid. Brown stool. -CTAP reviewed - severely aneurysmal abdominal aorta, chronic dissection of infrarenal abdominal aorta, extensive diverticulosis -GI bleeding scan shows no active GI bleeding -CT angio abdomen shows chronic dissection of the abdomenal aorta. Celiac SMA are patent. 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 No evidence of aortic fistula -high risk patient for AAA repair -further recommendations per Dr. Melendez
--- NOTE | 2018-09-17 13:47 | PN ---
DATE: 09/17/2018 LOCATION: CCU, bed 7. SUBJECTIVE: Overnight nurse's notes were reviewed. The patient underwent EGD and flexible sigmoidoscopy yesterday which he tolerated for a broad period. The patient has received tap water enema yesterday pre-flexible sigmoidoscopy. PHYSICAL EXAMINATION: VITAL SIGNS: T-max 98.2. Telemetry shows sinus rhythm, heart rate 95, blood pressure 143/84, O2 sat 100%. HEENT: Head examination normocephalic, atraumatic. Positive facial muscle wasting and cachexia noted. Pinkish pale conjunctivae. Anicteric sclerae. No oropharyngeal lesion. No neck rigidity. CHEST: Kyphosis. Positive median sternotomy surgical scar. CARDIOVASCULAR: S1, S2, regular rhythm. Positive systolic murmur left sternal border, right second intercostal space, left second intercostal space. LUNGS: Questionable decreased breath sound at the bases. ABDOMEN: Soft, positive bowel sounds, positive midline palpable pulsation noted. GENITALIA: Male. RECTAL: Deferred. EXTREMITIES: No pitting edema. No calf tenderness. No Homans' sign. NEUROLOGIC: The patient is alert, awake, responsive; is able to move upper and lower extremity without assistance. Positive left upper extremity AV fistula, positive thrill noted. Gait examination is not tested. MUSCULOSKELETAL: Examination shows decreased muscle mass. DIAGNOSTIC DATA: CT head result is officially not read. The patient's flexible sigmoidoscopy shows rectal stercoral ulcers. EGD shows duodenal diverticulum gastritis. CT head result is pending. LABORATORY DATA: Today's labs shows from 09/17/2018, WBC 13, hemoglobin/hematocrit 11.8/38, platelets 76,000, granulocytes 89% segs. Sodium 138, potassium 3.4, chloride 104, CO2 of 24, BUN 23, creatinine 2.1, glucose 73, calcium 7.8, phosphorus 4, magnesium 1.9, total protein 5.3, albumin 2.1. PT/PTT last 15.1/35.4. The patient has received PRBC x3, FFP x1 and platelets x3. IMPRESSION: 1. Acute blood loss anemia secondary to gastrointestinal bleeding with acute blood loss anemia. 2. Lower gastrointestinal bleeding. 3. Status post renal replacement therapy. 4. Status post hypovolemia, hypotension and possible hemorrhagic hypovolemic hypotensive shock. 5. Leukocytosis with granulocytosis. 6. Thrombocytopenia. 7. Possible disseminated intravascular coagulation with hypofibrinogenemia. 8. Granulocytosis 9. End-stage renal disease, hemodialysis dependent via the left upper extremity AV fistula. 10. Hypokalemia. 11. Secondary hyperparathyroidism. 12. Mild protein malnutrition. 13. Hypoalbuminemia. 14. Insulin-requiring diabetes mellitus. 15. Status post packed red blood cell transfusion x3, fresh frozen plasma x1 and platelet transfusion x3. 16. Status post flexible sigmoidoscopy. 17. Rectal stercoral ulcers. 18. Gastritis. 19. Duodenal diverticulum. 20. Right lower lobe pneumonia consolidation, atelectasis with elevated right hemidiaphragm. 21. Status post aortic valve replacement. 22. Median sternotomy. 23. Large infrarenal abdominal aortic aneurysm with chronic abdominal aortic aneurysm dissection. 24. Klebsiella pneumoniae urinary tract infection and Klebsiella pneumoniae bacteremia and sepsis. 25. Deconditioning. 26. Cachexia. 27. Failure to thrive. 28. Episodic confusion and disorientation, possible toxic metabolic encephalopathy versus delirium. 29. Severe deconditioning and gait dysfunction. PLAN: At this time the patient is currently in intensive care unit. The patient has been ordered serial labs. The patient's current consultation Hematology/Oncology, Infectious Disease, Cardiology, Gastroenterology, Surgery. The patient will be continued on all of the medications as per the MAR of today, which is reviewed. The patient has been ordered out of bed to chair. At present the patient will be continued on above therapeutic intervention. Patient subjective, objective data will be monitored. If the patient stays subjectively and objectively stable with stable lab data and without any further drop in hemoglobin, hematocrit and without any compromise of the blood pressure. The patient may be considered for transfer out of the ICU after cleared by Gastroenterology, Cardiology and all other subspecialty. PROGNOSIS: Guarded to poor. CONDITION: Critical. Time spent in the entire management more than 35 minutes. Mart Knox MD
[2018-09-17 16:05] LABS: HEMOGLOBIN 11.4 g/dL (14.0-18.0); LYMPH # 0.4 (1.2-3.4); LYMPH % 2.6 % (22.0-35.0); MEAN CELL VOLUME 78.8 fl (80.0-105.0); MEAN CORPUSCULAR HEMOGLOBIN 24.4 pg (25.0-35.0); MEAN CORPUSCULAR HGB CONC 30.9 g/dl (31.0-37.0); MONO # 0.2 (0.1-0.6); MONO % 1.6 % (1.0-6.0); PLATELET COUNT 93 10^3/uL (120.0-450.0); RBC 4.68 10^6/uL (3.5-6.1); RED CELL DISTRIBUTION WIDTH 19.7 % (11.5-14.5)
[2018-09-17] MEDS: Sodium Chloride 0.9% 500 ML IV SCH (17:26)
--- NOTE | 2018-09-17 20:11 | CP.PCM.PN ---
Subjective - Date & Time of Evaluation Date of Evaluation: 09/16/18 Time of Evaluation: 00:30 - Subjective Subjective: It was requested to cosign restraint order yesterday. Patient was seen at 2200 hrs. on September 16, 2018. Had no complaints offered. Medical record was reviewed. This 67-year-old male was transferred from TCU after rapid response which was called because patient had bright red blood per rectum. Has past medical history of GI bleeding, Thrombocytopenia, coagulopathy, end- stage renal disease on hemodialysis, uncontrolled insulin-dependent diabetes mellitus, bilateral pleural effusion, right middle lobe and right lower lobe pneumonia, multiple hepatic cysts, right-sided renal transplant, polycystic kidney disease, diverticulosis of colon, infrarenal AAA dissection, history of AV malformation, Objective - Vital Signs/Intake and Output Vital Signs (last 24 hours): Temp Pulse Resp BP Pulse Ox 98.1 F 95 H 30 H 156/93 H 96 09/17/18 16:30 09/17/18 19:44 09/17/18 19:44 09/17/18 19:00 09/17/18 16:30 Intake and Output: 09/17/18 09/18/18 18:59 06:59 Intake Total 600 Output Total 200 Balance 400 - Medications Medications: Current Medications Acetaminophen (Tylenol 325mg Tab) 650 mg PO Q4H PRN PRN Reason: temp > 99.5F Acetaminophen (Tylenol 325mg Tab) 650 mg PO Q6 PRN PRN Reason: TEMP>=99.5F Acetaminophen (Tylenol 650 Mg Supp) 650 mg RC Q6H PRN PRN Reason: TEMP>=99.5F Atorvastatin Calcium (Lipitor) 10 mg PO DIN [facility] Last Admin: 09/17/18 17:24 Dose: 10 mg Cyproheptadine HCl (Periactin) 4 mg PO BID [facility] Last Admin: 09/17/18 17:24 Dose: 4 mg Ezetimibe (Zetia) 10 mg PO DAILY [facility] Last Admin: 09/17/18 09:41 Dose: 10 mg Famotidine (Pepcid) 40 mg PO HS [facility] Last Admin: 09/16/18 22:37 Dose: 40 mg Sodium Chloride (Sodium Chloride 0.9%) 500 mls @ 10 mls/hr IV .Q24H [facility] Last Admin: 09/17/18 17:26 Dose: Not Given Ceftriaxone Sodium (Rocephin 1 Gram Ivpb) 1 gm in 100 mls @ 100 mls/hr IVPB DAILY [facility]; Protocol Last Admin: 09/17/18 09:42 Dose: 100 mls/hr Insulin Human Regular (Humulin R Low) 0 units SC ACHS [facility]; Protocol Last Admin: 09/17/18 17:33 Dose: Not Given Levalbuterol HCl (Xopenex) 0.63 mg IH [id number] [facility] Last Admin: 09/17/18 13:09 Dose: 0.63 mg Lidocaine (Lidoderm) 1 ea TD DAILY [facility] Last Admin: 09/17/18 09:43 Dose: 1 ea Metoprolol Tartrate (Lopressor) 25 mg PO BID [facility] Last Admin: 09/17/18 17:37 Dose: 25 mg Ondansetron HCl (Zofran Inj) 4 mg IVP Q4H PRN PRN Reason: Nausea/Vomiting Pantoprazole Sodium (Protonix Inj) 40 mg IVP DAILY [facility] Last Admin: 09/17/18 10:00 Dose: 40 mg Polyethylene Glycol (Miralax) 17 gm PO BID [facility] Last Admin: 09/17/18 17:28 Dose: Not Given Prednisone (Prednisone Tab) 5 mg PO BRK [facility] Last Admin: 09/17/18 07:48 Dose: 5 mg Thiamine HCl (Vitamin B1 Tab) 100 mg PO DAILY [facility] Last Admin: 09/17/18 11:00 Dose: 100 mg - Labs Labs: 09/17/18 16:01 09/17/18 06:30 PT 15.1 SECONDS (9.4-12.5) H 09/17/18 06:30 INR 1.34 09/17/18 06:30 APTT 35.4 Seconds (26.9-38.3) 09/17/18 06:30 - Constitutional Appears: Well, No Acute Distress - Head Exam Head Exam: ATRAUMATIC, NORMAL INSPECTION, NORMOCEPHALIC - Eye Exam Eye Exam: Normal appearance - ENT Exam ENT Exam: Normal External Ear Exam - Neck Exam Neck Exam: Normal Inspection - Respiratory Exam Respiratory Exam: NORMAL BREATHING PATTERN - Cardiovascular Exam Cardiovascular Exam: absent: JVD - GI/Abdominal Exam GI & Abdominal Exam: absent: Distended - Rectal Exam Rectal Exam: Deferred - Exam Additional comments: Deferred. - Extremities Exam Extremities Exam: Normal Inspection - Back Exam Back Exam: NORMAL INSPECTION - Neurological Exam Neurological Exam: Altered - Psychiatric Exam Psychiatric exam: Agitated - Skin Skin Exam: Normal Color Assessment and Plan - Assessment and Plan (Free Text) Assessment: Agitation. End-stage renal disease. Lower GI bleeding. On hemodialysis. Insulin-dependent diabetes mellitus. Bilateral pleural effusion. History renal transplant. History polycystic kidney disease. History of diverticulosis of colon. History of infrarenal aortic aneurysm dissection. Cachexia. Plan: Wrist pain order was renewed. Continue present management.
[2018-09-18 02:03] LABS: EOS % 0.2 % (1.5-5.0); HEMOGLOBIN 10.8 g/dL (14.0-18.0); LYMPH # 1.1 (1.2-3.4); LYMPH % 8.4 % (22.0-35.0); MEAN CELL VOLUME 79.2 fl (80.0-105.0); MEAN CORPUSCULAR HEMOGLOBIN 24.7 pg (25.0-35.0); MEAN CORPUSCULAR HGB CONC 31.2 g/dl (31.0-37.0); MONO # 0.6 (0.1-0.6); PLATELET COUNT 82 10^3/uL (120.0-450.0); RBC 4.37 10^6/uL (3.5-6.1); RED CELL DISTRIBUTION WIDTH 19.7 % (11.5-14.5); WHITE BLOOD COUNT 12.7 10^3/uL (4.5-11.0)
[2018-09-18] MEDS: Levalbuterol 0.63 MG/3 ML Inhal Soln UD IH SCH ×4 (02:31→20:28)
--- NOTE | 2018-09-18 07:17 | CP.PCM.PN ---
Subjective - Date & Time of Evaluation Date of Evaluation: 09/18/18 Time of Evaluation: 07:06 - Subjective Subjective: Patric Hartley IM Progress Note for Dr. Knox Patient was seen and examined at bedside in ICU. Overnight the patient had 5 BM's that were bloody. In general, he feels well today and denies any abdominal pain, chest pain, shortness of breath, fevers/chills. BP is stable. Patient is looking forward to real food, and it was explained to him that he needs soft stools to not aggravate the rectal ulcers. Objective - Vital Signs/Intake and Output Vital Signs (last 24 hours): Temp Pulse Resp BP Pulse Ox 98.1 F 95 H 30 H 156/93 H 96 09/17/18 16:30 09/17/18 19:44 09/17/18 19:44 09/17/18 19:00 09/17/18 16:30 - Medications Medications: Current Medications Acetaminophen (Tylenol 325mg Tab) 650 mg PO Q4H PRN PRN Reason: temp > 99.5F Acetaminophen (Tylenol 325mg Tab) 650 mg PO Q6 PRN PRN Reason: TEMP>=99.5F Acetaminophen (Tylenol 650 Mg Supp) 650 mg RC Q6H PRN PRN Reason: TEMP>=99.5F Atorvastatin Calcium (Lipitor) 10 mg PO DIN [facility] Last Admin: 09/17/18 17:24 Dose: 10 mg Cyproheptadine HCl (Periactin) 4 mg PO BID [facility] Last Admin: 09/17/18 17:24 Dose: 4 mg Ezetimibe (Zetia) 10 mg PO DAILY [facility] Last Admin: 09/17/18 09:41 Dose: 10 mg Famotidine (Pepcid) 40 mg PO HS [facility] Last Admin: 09/17/18 22:13 Dose: 40 mg Sodium Chloride (Sodium Chloride 0.9%) 500 mls @ 10 mls/hr IV .Q24H [facility] Last Admin: 09/17/18 17:26 Dose: Not Given Ceftriaxone Sodium (Rocephin 1 Gram Ivpb) 1 gm in 100 mls @ 100 mls/hr IVPB DAILY [facility]; Protocol Last Admin: 09/17/18 09:42 Dose: 100 mls/hr Insulin Human Regular (Humulin R Low) 0 units SC ACHS [facility]; Protocol Last Admin: 09/17/18 22:12 Dose: Not Given Levalbuterol HCl (Xopenex) 0.63 mg IH [id number] [facility] Last Admin: 09/18/18 02:31 Dose: 0.63 mg Lidocaine (Lidoderm) 1 ea TD DAILY [facility] Last Admin: 09/17/18 09:43 Dose: 1 ea Metoprolol Tartrate (Lopressor) 25 mg PO Q8H [facility] Ondansetron HCl (Zofran Inj) 4 mg IVP Q4H PRN PRN Reason: Nausea/Vomiting Pantoprazole Sodium (Protonix Inj) 40 mg IVP DAILY [facility] Last Admin: 09/17/18 10:00 Dose: 40 mg Polyethylene Glycol (Miralax) 17 gm PO BID [facility] Last Admin: 09/17/18 17:28 Dose: Not Given Prednisone (Prednisone Tab) 5 mg PO BRK [facility] Last Admin: 09/17/18 07:48 Dose: 5 mg Thiamine HCl (Vitamin B1 Tab) 100 mg PO DAILY [facility] Last Admin: 09/17/18 11:00 Dose: 100 mg - Labs Labs: 09/18/18 01:50 09/17/18 06:30 PT 15.1 SECONDS (9.4-12.5) H 09/17/18 06:30 INR 1.34 09/17/18 06:30 APTT 35.4 Seconds (26.9-38.3) 09/17/18 06:30 - Constitutional Appears: Non-toxic, No Acute Distress, Cachectic, Chronically Ill - Head Exam Head Exam: ATRAUMATIC, NORMAL INSPECTION - Eye Exam Eye Exam: Normal appearance, PERRL - ENT Exam ENT Exam: Mucous Membranes Dry, Normal Exam - Neck Exam Neck Exam: Full ROM, Normal Inspection - Respiratory Exam Respiratory Exam: NORMAL BREATHING PATTERN. absent: Respiratory Distress - Cardiovascular Exam Cardiovascular Exam: RRR, +S1, +S2, Murmur. absent: Tachycardia - GI/Abdominal Exam GI & Abdominal Exam: Soft, Normal Bowel Sounds. absent: Distended, Guarding, Tenderness - Extremities Exam Extremities Exam: Full ROM. absent: Pedal Edema Additional Comments: LUE AVF +thrill +bruit - Neurological Exam Neurological Exam: Alert, Awake, Oriented x3 - Skin Skin Exam: Normal Color, Warm Assessment and Plan - Assessment and Plan (Free Text) Assessment: 67 year old male with a PMH of ADPKD s/p renal allograft (2006), ESRD on HD MWF, DM2, HTN, severe , and unrepaired infrarenal AAA who is being admitted for hematochezia while in the TCU. Bleeding scan showed no active bleeding, and CTA abd/pelvis showed chronic dissection of abdominal aorta, patent celiac and SMA, large aneurysm extending into pelvis (7.8x9.2 cm) and no evidence of aortic fistula. Post EGD and flex-sig that showed no esophageal/gastric cause of bleeding but was positive for brown stools with stercoral ulcerations. Plan: 1. GI bleeding, likely 2/2 stercoral ulcerations - miralax d.c, and was refused yesterday due to diarrhea - start lactulose daily per GI recs - cont protonix daily for GI ppx - GI is consulted, recs appreciated - transfused 3u pRBC, 1u FFP and 3u platelets in total - advance diet per GI recs; currently advanced to soft renal diet 2. ESRD - MWF HD at home; last HD session Saturday - Nephrology consulted, recs appreciated - US reviewed showing chronic aneurysm w/ no signs of abscess 3. Anemia - likely multifactorial due to active bleeding and chronic anemia due to ESRD/iron deficiency and chronic inflammation - Heme/Onc consulted, recs appreciated - will continue transfusing to keep Hgb > 7 4. Thrombocytopenia - Multifactorial due to ?DIC vs declining synthetic function of liver - Heme/Onc consulted - peripheral smear reviewed by pathologist: decreased platelets with no clumping - s/p 3u pRBCs, 1u FFP and 3u platelets - DIC heme studies reviewed 5. ADPKD - Prograft at home; currently held - Heme/Onc consulted, recs appreciated - Nephrology consulted, recs appreciated - cont HD per Nephro 6. UTI bactermia 2/2 klebsiella - SUHAIL was negative - cont Rocephin - Abx per ID, recs appreciated 7. PPX - Protonix for GI ppx - SCDs for DVT ppx Further recs per Dr. Knox Case was reviewed and discussed with Dr. Knox
[2018-09-18 07:20] LABS: BASO # 0.01 K/mm3 (0.0-2.0); BASO % 0.1 % (0.0-3.0); EOS % 0.3 % (1.5-5.0); HEMOGLOBIN 10.6 g/dL (14.0-18.0); LYMPH % 7.7 % (22.0-35.0); MEAN CELL VOLUME 79.7 fl (80.0-105.0); MEAN CORPUSCULAR HEMOGLOBIN 24.5 pg (25.0-35.0); MEAN CORPUSCULAR HGB CONC 30.7 g/dl (31.0-37.0); MONO # 0.6 (0.1-0.6); PLATELET COUNT 84 10^3/uL (120.0-450.0); RBC 4.33 10^6/uL (3.5-6.1); RED CELL DISTRIBUTION WIDTH 19.9 % (11.5-14.5); WHITE BLOOD COUNT 12.8 10^3/uL (4.5-11.0)
[2018-09-18 07:28] LABS: INR 1.27; PARTIAL THROMBOPLASTIN TIME 36.1 Seconds (26.9-38.3); PROTHROMBIN TIME 14.4 SECONDS (9.4-12.5)
--- NOTE | 2018-09-18 07:43 | CP.CCUPN ---
<RenatoGeorgi - Last Filed: 09/18/18 11:22> CCU Subjective - Physician Review Events Since Last Encounter (Free Text): 09/18/18 07:24 nursing staff reports pt had approx 5 bloody BM overnight Subjective (Free Text): 09/15/18 11:22 Pt seen and examined, no new complaints at this time 09/16/18 07:00 Pt seen adn examined, confused, denies chest pain or SOB 09/17/18 12:36 pt seen and examined, no new complaints CCU Objective - Vital Signs / Intake & Output Intake and Output (Last 8hrs): Intake & Output 09/17/18 09/18/18 09/18/18 22:59 06:59 14:59 Intake Total 600 Output Total 200 Balance 400 Intake: IV 150 Right Femoral 150 Oral 450 Output: Urine 200 Urine, Voided 200 Other: # Voids Urine, Voided 1 # Bowel Movements 1 - Physical Exam Head: Positive for: Atraumatic, Normocephalic Pupils: Positive for: PERRL Extroacular Muscles: Positive for: EOMI Conjunctiva: Positive for: Normal Mouth: Positive for: Moist Mucous Membranes Neck: Positive for: Normal Range of Motion. Negative for: Meningeal Signs, MIDLINE TENDERNESS Respiratory/Chest: Positive for: Clear to Auscultation, Good Air Exchange. Negative for: Respiratory Distress, Accessory Muscle Use Cardiovascular: Positive for: Regular Rate and Rhythm, Normal S1, S2. Negative for: Murmurs Abdomen: Negative for: Tenderness, Distention, Peritoneal Signs Rectal: Positive for: Normal Rectal Tone, Other (Guaiac positive. Maroon Stool). Negative for: Rectal Tenderness, Hemorrhoids, Fissures, Nodule/Mass/Lesions Back: Positive for: Normal Inspection. Negative for: CVA Tenderness, Midline Tenderness Upper Extremity: Positive for: Normal Inspection, NORMAL PULSES, Neurovascularly Intact, Capillary Refill < 2s, Other (LUE fistula w/ good bruit and good thrill, no erythema or crepitus noted overlaying). Negative for: Cyanosis, Edema, Tenderness, Erythema Lower Extremity: Positive for: Normal Inspection, NORMAL PULSES, Neurovascularly Intact. Negative for: Edema Neurological: Positive for: GCS=15, CN II-XII Intact, Speech Normal, Motor Func Grossly Intact Skin: Positive for: Warm, Dry, Normal Color. Negative for: Rashes Psychiatric: Positive for: Alert, Oriented x 3, Normal Insight, Normal Concentration - Medications Active Medications: Active Medications Generic Name Dose Route Start Last Admin Trade Name Freq PRN Reason Stop Dose Admin Acetaminophen 650 mg 09/14/18 19:20 Tylenol 325mg Tab PO Q4H PRN temp > 99.5F Acetaminophen 650 mg 09/15/18 08:40 Tylenol 325mg Tab PO Q6 PRN TEMP>=99.5F Acetaminophen 650 mg 09/15/18 08:40 Tylenol 650 Mg Supp RC Q6H PRN TEMP>=99.5F Atorvastatin Calcium 10 mg 09/15/18 17:00 09/17/18 17:24 Lipitor PO 10 mg DIN TAWANA Administration Cyproheptadine HCl 4 mg 09/15/18 10:00 09/17/18 17:24 Periactin PO 4 mg BID TAWANA Administration Ezetimibe 10 mg 09/15/18 10:00 09/17/18 09:41 Zetia PO 10 mg DAILY TAWANA Administration Famotidine 40 mg 09/14/18 22:00 09/17/18 22:13 Pepcid PO 40 mg HS TAWANA Administration Sodium Chloride 500 mls @ 10 mls/hr 09/14/18 16:58 09/17/18 17:26 Sodium Chloride 0.9% IV Not Given .Q24H TAWANA Ceftriaxone Sodium 1 gm in 100 mls @ 100 mls/hr 09/15/18 10:00 09/17/18 09:42 Rocephin 1 Gram Ivpb IVPB 100 mls/hr DAILY TAWANA Administration Protocol Insulin Human Regular 0 units 09/14/18 22:00 09/17/18 22:12 Humulin R Low SC Not Given ACHS TAWANA Protocol Levalbuterol HCl 0.63 mg 09/15/18 14:00 09/18/18 02:31 Xopenex IH 0.63 mg [id number] TAWANA Administration Lidocaine 1 ea 09/15/18 10:00 09/17/18 09:43 Lidoderm TD 1 ea DAILY TAWANA Administration Metoprolol Tartrate 25 mg 09/18/18 07:00 Lopressor PO Q8H TAWANA Ondansetron HCl 4 mg 09/15/18 08:40 Zofran Inj IVP Q4H PRN Nausea/Vomiting Pantoprazole Sodium 40 mg 09/17/18 10:00 09/17/18 10:00 Protonix Inj IVP 40 mg DAILY TAWANA Administration Polyethylene Glycol 17 gm 09/18/18 10:00 Miralax PO DAILY TAWANA Prednisone 5 mg 09/15/18 08:00 09/17/18 07:48 Prednisone Tab PO 5 mg BRK TAWANA Administration Thiamine HCl 100 mg 09/17/18 10:00 09/17/18 11:00 Vitamin B1 Tab PO 100 mg DAILY TAWANA Administration - Patient Studies Lab Studies: Microbiology Studies 09/14/18 17:07 Blood Culture - Preliminary Blood NO GROWTH AFTER 3 DAYS 09/14/18 16:37 Blood Culture - Preliminary Blood NO GROWTH AFTER 3 DAYS Lab Studies 09/18/18 09/17/18 09/17/18 Range/Units 01:50 22:11 16:17 WBC 12.7 H (4.5-11.0) 10^3/uL RBC 4.37 (3.5-6.1) 10^6/uL Hgb 10.8 L (14.0-18.0) g/dL Hct 34.6 L (42.0-52.0) % MCV 79.2 L (80.0-105.0) fl MCH 24.7 L (25.0-35.0) pg MCHC 31.2 (31.0-37.0) g/dl RDW 19.7 H (11.5-14.5) % Plt Count 82 L (120.0-450.0) 10^3/uL Neut % (Auto) 86.4 H (50.0-68.0) % Lymph % (Auto) 8.4 L (22.0-35.0) % [place] % (Auto) 5.0 (1.0-6.0) % Eos % (Auto) 0.2 L (1.5-5.0) % Baso % (Auto) 0.0 (0.0-3.0) % Lymph # (Auto) 1.1 L (1.2-3.4) [place] # (Auto) 0.6 (0.1-0.6) Eos # (Auto) 0.0 (0.0-0.7) Baso # (Auto) 0.00 (0.0-2.0) K/mm3 Absolute Neuts (auto) 10.94 H (1.4-6.5) Sodium (132-148) mmol/L Chloride (98-107) mmol/L Carbon Dioxide (21-33) mmol/L Anion Gap (10-20) BUN (7-21) mg/dL Creatinine (0.8-1.5) mg/dl Est GFR ( Amer) Est GFR (Non-Af Amer) POC Glucose (mg/dL) 278 H 223 H (65-110) mg/dL Random Glucose (70-110) mg/dL Calcium (8.4-10.5) mg/dL Phosphorus (2.5-4.5) mg/dL Magnesium (1.7-2.2) mg/dL Total Bilirubin (0.2-1.3) mg/dL Direct Bilirubin (0.0-0.4) mg/dL AST (17-59) U/L ALT (7-56) U/L Alkaline Phosphatase (38-126) U/L Total Protein (5.8-8.3) g/dL Albumin (3.0-4.8) g/dL Globulin gm/dL Albumin/Globulin Ratio (1.1-1.8) 09/17/18 09/17/18 09/17/18 Range/Units 16:01 11:17 07:15 WBC 14.0 H (4.5-11.0) 10^3/uL RBC 4.68 (3.5-6.1) 10^6/uL Hgb 11.4 L (14.0-18.0) g/dL Hct 36.9 L (42.0-52.0) % MCV 78.8 L (80.0-105.0) fl MCH 24.4 L (25.0-35.0) pg MCHC 30.9 L (31.0-37.0) g/dl RDW 19.7 H (11.5-14.5) % Plt Count 93 L (120.0-450.0) 10^3/uL Neut % (Auto) 95.8 H (50.0-68.0) % Lymph % (Auto) 2.6 L (22.0-35.0) % [place] % (Auto) 1.6 (1.0-6.0) % Eos % (Auto) 0.0 L (1.5-5.0) % Baso % (Auto) 0.0 (0.0-3.0) % Lymph # (Auto) 0.4 L (1.2-3.4) [place] # (Auto) 0.2 (0.1-0.6) Eos # (Auto) 0.0 (0.0-0.7) Baso # (Auto) 0.00 (0.0-2.0) K/mm3 Absolute Neuts (auto) 13.44 H (1.4-6.5) Sodium (132-148) mmol/L Chloride (98-107) mmol/L Carbon Dioxide (21-33) mmol/L Anion Gap (10-20) BUN (7-21) mg/dL Creatinine (0.8-1.5) mg/dl Est GFR ( Amer) Est GFR (Non-Af Amer) POC Glucose (mg/dL) 136 H 65 (65-110) mg/dL Random Glucose (70-110) mg/dL Calcium (8.4-10.5) mg/dL Phosphorus (2.5-4.5) mg/dL Magnesium (1.7-2.2) mg/dL Total Bilirubin (0.2-1.3) mg/dL Direct Bilirubin (0.0-0.4) mg/dL AST (17-59) U/L ALT (7-56) U/L Alkaline Phosphatase (38-126) U/L Total Protein (5.8-8.3) g/dL Albumin (3.0-4.8) g/dL Globulin gm/dL Albumin/Globulin Ratio (1.1-1.8) 09/17/18 09/17/18 Range/Units 06:30 06:30 WBC 13.0 H (4.5-11.0) 10^3/uL RBC 4.79 (3.5-6.1) 10^6/uL Hgb 11.8 L (14.0-18.0) g/dL Hct 37.7 L (42.0-52.0) % MCV 78.7 L (80.0-105.0) fl MCH 24.6 L (25.0-35.0) pg MCHC 31.3 (31.0-37.0) g/dl RDW 19.2 H (11.5-14.5) % Plt Count 76 L (120.0-450.0) 10^3/uL Neut % (Auto) 88.8 H (50.0-68.0) % Lymph % (Auto) 7.2 L (22.0-35.0) % [place] % (Auto) 3.7 (1.0-6.0) % Eos % (Auto) 0.2 L (1.5-5.0) % Baso % (Auto) 0.1 (0.0-3.0) % Lymph # (Auto) 0.9 L (1.2-3.4) [place] # (Auto) 0.5 (0.1-0.6) Eos # (Auto) 0.0 (0.0-0.7) Baso # (Auto) 0.01 (0.0-2.0) K/mm3 Absolute Neuts (auto) 11.52 H (1.4-6.5) Sodium 138 (132-148) mmol/L Chloride 104 (98-107) mmol/L Carbon Dioxide 24 (21-33) mmol/L Anion Gap 13 (10-20) BUN 28 H (7-21) mg/dL Creatinine 2.1 H (0.8-1.5) mg/dl Est GFR ( Amer) 39 Est GFR (Non-Af Amer) 32 POC Glucose (mg/dL) (65-110) mg/dL Random Glucose 73 (70-110) mg/dL Calcium 7.8 L (8.4-10.5) mg/dL Phosphorus 4.0 (2.5-4.5) mg/dL Magnesium 1.9 (1.7-2.2) mg/dL Total Bilirubin 0.5 (0.2-1.3) mg/dL Direct Bilirubin 0.5 H (0.0-0.4) mg/dL AST 24 (17-59) U/L ALT 19 (7-56) U/L Alkaline Phosphatase 101 (38-126) U/L Total Protein 5.3 L (5.8-8.3) g/dL Albumin 2.1 L (3.0-4.8) g/dL Globulin 3.1 gm/dL Albumin/Globulin Ratio 0.7 L (1.1-1.8) Laboratory Results - last 24 hr 09/17/18 09/17/18 09/17/18 06:30 06:30 07:15 WBC 13.0 H RBC 4.79 Hgb 11.8 L Hct 37.7 L MCV 78.7 L MCH 24.6 L MCHC 31.3 RDW 19.2 H Plt Count 76 L Neut % (Auto) 88.8 H Lymph % (Auto) 7.2 L [place] % (Auto) 3.7 Eos % (Auto) 0.2 L Baso % (Auto) 0.1 Lymph # (Auto) 0.9 L [place] # (Auto) 0.5 Eos # (Auto) 0.0 Baso # (Auto) 0.01 Absolute Neuts (auto) 11.52 H Sodium 138 Chloride 104 Carbon Dioxide 24 Anion Gap 13 BUN 28 H Creatinine 2.1 H Est GFR ( Amer) 39 Est GFR (Non-Af Amer) 32 POC Glucose (mg/dL) 65 Random Glucose 73 Calcium 7.8 L Phosphorus 4.0 Magnesium 1.9 Total Bilirubin 0.5 Direct Bilirubin 0.5 H AST 24 ALT 19 Alkaline Phosphatase 101 Total Protein 5.3 L Albumin 2.1 L Globulin 3.1 Albumin/Globulin Ratio 0.7 L 09/17/18 09/17/18 09/17/18 11:17 16:01 16:17 WBC 14.0 H RBC 4.68 Hgb 11.4 L Hct 36.9 L MCV 78.8 L MCH 24.4 L MCHC 30.9 L RDW 19.7 H Plt Count 93 L Neut % (Auto) 95.8 H Lymph % (Auto) 2.6 L [place] % (Auto) 1.6 Eos % (Auto) 0.0 L Baso % (Auto) 0.0 Lymph # (Auto) 0.4 L [place] # (Auto) 0.2 Eos # (Auto) 0.0 Baso # (Auto) 0.00 Absolute Neuts (auto) 13.44 H Sodium Chloride Carbon Dioxide Anion Gap BUN Creatinine Est GFR ( Amer) Est GFR (Non-Af Amer) POC Glucose (mg/dL) 136 H 223 H Random Glucose Calcium Phosphorus Magnesium Total Bilirubin Direct Bilirubin AST ALT Alkaline Phosphatase Total Protein Albumin Globulin Albumin/Globulin Ratio 09/17/18 09/18/18 22:11 01:50 WBC 12.7 H RBC 4.37 Hgb 10.8 L Hct 34.6 L MCV 79.2 L MCH 24.7 L MCHC 31.2 RDW 19.7 H Plt Count 82 L Neut % (Auto) 86.4 H Lymph % (Auto) 8.4 L [place] % (Auto) 5.0 Eos % (Auto) 0.2 L Baso % (Auto) 0.0 Lymph # (Auto) 1.1 L [place] # (Auto) 0.6 Eos # (Auto) 0.0 Baso # (Auto) 0.00 Absolute Neuts (auto) 10.94 H Sodium Chloride Carbon Dioxide Anion Gap BUN Creatinine Est GFR ( Amer) Est GFR (Non-Af Amer) POC Glucose (mg/dL) 278 H Random Glucose Calcium Phosphorus Magnesium Total Bilirubin Direct Bilirubin AST ALT Alkaline Phosphatase Total Protein Albumin Globulin Albumin/Globulin Ratio Radiology Impressions: Radiology Impressions Chest X-Ray 09/16/18 10:27 IMPRESSION: No active disease. Chest X-Ray 09/17/18 06:00 IMPRESSION: Small right-sided effusion. No evidence of CHF Hemodialysis Access Duplex US 09/17/18 10:34 IMPRESSION: No sonographic evidence of subcutaneous abscess. Patent left upper extremity AVF with focal aneurysmal dilatation. Fingerstick Blood Sugar Results: 278 Critical Care Progress Note - Nutrition Nutrition: Nutrition Category Date Time Status Renal Diet [DIET] Diets 09/17/18 Dinner Ordered Assessment/Plan - Assessment and Plan (Free Text) Assessment: Pt is a 67 yo male with a PMH of ADPKD s/p renal transplant, ESRD on HD, severe , DM2, HTN, and AAA who was admitted for lethargy and diarrhea, treated for UTI, who was then transferred to TCU where he had a bloody bowel movement and was transferred to ICU. Plan: Neuro - pt confused - continue to monitor neuro status Cardio - HTN, severe , and unrepaired infrarenal AAA - lipitor, zetia - trop negative - Maintain MAP >65 - beta fe for AAA in the future - angiogram negative for fistula - CT abd/pelvis w/o contrast: Extensive atherosclerotic calcifications of severely aneurysmal abdominal aorta. 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 Heterogeneous liver with hypodensities, tiny cysts or hemangiomas - GI consulted, Dr Cordova EGD showed no signs of upper GI bleeding. Sigmoidoscopy showed ulcers, no plan for colonoscopy today - Surgery consulted Nephro/ - ADPKD s/p renal allograft, ESRD on HD, Chronic kidney disease - CT abd/pelvis w/o contrast: Innumerable bilateral renal cysts of the [place] kidneys consistent with PKD. Hydronephrosis of the transplanted kidney. 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 - Heme/onc consulted, Dr Leigh Endocrine - DM - ISS Pt seen, examined, assessment and plan discussed with Dr Kath Gross PGY1 - Date & Time Date: 09/18/18 Time: 07:26 <Darren Stockton - Last Filed: 09/18/18 11:31> CCU Objective - Vital Signs / Intake & Output Vital Signs (Last 4 hours): Vital Signs Pulse BP 09/18/18 10:11 95 H 142/96 H Intake and Output (Last 8hrs): Intake & Output 09/17/18 09/18/18 09/18/18 22:59 06:59 14:59 Intake Total 600 Output Total 200 Balance 400 Intake: IV 150 Right Femoral 150 Oral 450 Output: Urine 200 Urine, Voided 200 Other: # Voids Urine, Voided 1 # Bowel Movements 1 - Medications Active Medications: Active Medications Generic Name Dose Route Start Last Admin Trade Name Freq PRN Reason Stop Dose Admin Acetaminophen 650 mg 09/14/18 19:20 Tylenol 325mg Tab PO Q4H PRN temp > 99.5F Acetaminophen 650 mg 09/15/18 08:40 Tylenol 325mg Tab PO Q6 PRN TEMP>=99.5F Acetaminophen 650 mg 09/15/18 08:40 Tylenol 650 Mg Supp RC Q6H PRN TEMP>=99.5F Atorvastatin Calcium 10 mg 09/15/18 17:00 09/17/18 17:24 Lipitor PO 10 mg DIN TAWANA Administration Calcitriol 0.75 mcg 09/18/18 10:00 09/18/18 10:11 Rocaltrol PO 0.75 mcg TTS TAWANA Administration Cyproheptadine HCl 4 mg 09/15/18 10:00 09/18/18 10:11 Periactin PO 4 mg BID TAWANA Administration Ezetimibe 10 mg 09/15/18 10:00 09/18/18 10:10 Zetia PO 10 mg DAILY TAWANA Administration Famotidine 40 mg 09/14/18 22:00 09/17/18 22:13 Pepcid PO 40 mg HS TAWANA Administration Sodium Chloride 500 mls @ 10 mls/hr 09/14/18 16:58 09/17/18 17:26 Sodium Chloride 0.9% IV Not Given .Q24H TAWANA Insulin Human Regular 0 units 09/14/18 22:00 09/18/18 09:57 Humulin R Low SC Not Given ACHS [facility] Protocol Lactulose 15 gm 09/18/18 10:00 09/18/18 10:10 Enulose PO 15 gm DAILY TAWANA Administration Levalbuterol HCl 0.63 mg 09/15/18 14:00 09/18/18 08:27 Xopenex IH 0.63 mg [id number] TAWANA Administration Lidocaine 1 ea 09/15/18 10:00 09/18/18 10:09 Lidoderm TD 1 ea DAILY TAWANA Administration Metoprolol Tartrate 25 mg 09/18/18 07:00 09/18/18 10:11 Lopressor PO 25 mg Q8H TAWANA Administration Ondansetron HCl 4 mg 09/15/18 08:40 Zofran Inj IVP Q4H PRN Nausea/Vomiting Pantoprazole Sodium 40 mg 09/17/18 10:00 09/18/18 10:09 Protonix Inj IVP 40 mg DAILY TAWANA Administration Prednisone 5 mg 09/15/18 08:00 09/18/18 10:12 Prednisone Tab PO 5 mg BRK TAWANA Administration Thiamine HCl 100 mg 09/17/18 10:00 09/18/18 10:11 Vitamin B1 Tab PO 100 mg DAILY TAWANA Administration - Patient Studies Lab Studies: Microbiology Studies 09/14/18 17:07 Blood Culture - Preliminary Blood NO GROWTH AFTER 3 DAYS 09/14/18 16:37 Blood Culture - Preliminary Blood NO GROWTH AFTER 3 DAYS Lab Studies 09/18/18 09/18/18 09/18/18 Range/Units 07:19 07:00 06:43 WBC (4.5-11.0) 10^3/uL RBC (3.5-6.1) 10^6/uL Hgb (14.0-18.0) g/dL Hct (42.0-52.0) % MCV (80.0-105.0) fl MCH (25.0-35.0) pg MCHC (31.0-37.0) g/dl RDW (11.5-14.5) % Plt Count (120.0-450.0) 10^3/uL Manual Plt Count 96 L (120-450) K/mm3 Neut % (Auto) (50.0-68.0) % Lymph % (Auto) (22.0-35.0) % [place] % (Auto) (1.0-6.0) % Eos % (Auto) (1.5-5.0) % Baso % (Auto) (0.0-3.0) % Lymph # (Auto) (1.2-3.4) [place] # (Auto) (0.1-0.6) Eos # (Auto) (0.0-0.7) Baso # (Auto) (0.0-2.0) K/mm3 Absolute Neuts (auto) (1.4-6.5) PT (9.4-12.5) SECONDS INR APTT (26.9-38.3) Seconds Sodium (132-148) mmol/L Potassium (3.6-5.0) mmol/L Chloride (98-107) mmol/L Carbon Dioxide (21-33) mmol/L Anion Gap (10-20) BUN (7-21) mg/dL Creatinine (0.8-1.5) mg/dl Est GFR ( Amer) Est GFR (Non-Af Amer) POC Glucose (mg/dL) 210 H (65-110) mg/dL Random Glucose (70-110) mg/dL Calcium (8.4-10.5) mg/dL Phosphorus 4.4 (2.5-4.5) mg/dL Magnesium 1.9 (1.7-2.2) mg/dL Total Bilirubin 0.4 (0.2-1.3) mg/dL Direct Bilirubin 0.4 (0.0-0.4) mg/dL AST 21 (17-59) U/L ALT 25 (7-56) U/L Alkaline Phosphatase 108 (38-126) U/L Total Protein 5.2 L (5.8-8.3) g/dL Albumin 2.1 L (3.0-4.8) g/dL Globulin 3.1 gm/dL Albumin/Globulin Ratio 0.7 L (1.1-1.8) 09/18/18 09/18/18 09/18/18 Range/Units 06:43 06:43 06:43 WBC 12.8 H (4.5-11.0) 10^3/uL RBC 4.33 (3.5-6.1) 10^6/uL Hgb 10.6 L (14.0-18.0) g/dL Hct 34.5 L (42.0-52.0) % MCV 79.7 L (80.0-105.0) fl MCH 24.5 L (25.0-35.0) pg MCHC 30.7 L (31.0-37.0) g/dl RDW 19.9 H (11.5-14.5) % Plt Count 84 L (120.0-450.0) 10^3/uL Manual Plt Count (120-450) K/mm3 Neut % (Auto) 86.9 H (50.0-68.0) % Lymph % (Auto) 7.7 L (22.0-35.0) % [place] % (Auto) 5.0 (1.0-6.0) % Eos % (Auto) 0.3 L (1.5-5.0) % Baso % (Auto) 0.1 (0.0-3.0) % Lymph # (Auto) 1.0 L (1.2-3.4) [place] # (Auto) 0.6 (0.1-0.6) Eos # (Auto) 0.0 (0.0-0.7) Baso # (Auto) 0.01 (0.0-2.0) K/mm3 Absolute Neuts (auto) 11.08 H (1.4-6.5) PT 14.4 H (9.4-12.5) SECONDS INR 1.27 APTT 36.1 (26.9-38.3) Seconds Sodium 141 (132-148) mmol/L Potassium 3.3 L (3.6-5.0) mmol/L Chloride 107 (98-107) mmol/L Carbon Dioxide 26 (21-33) mmol/L Anion Gap 12 (10-20) BUN 36 H (7-21) mg/dL Creatinine 2.5 H (0.8-1.5) mg/dl Est GFR ( Amer) 32 Est GFR (Non-Af Amer) 26 POC Glucose (mg/dL) (65-110) mg/dL Random Glucose 149 H (70-110) mg/dL Calcium 8.0 L (8.4-10.5) mg/dL Phosphorus (2.5-4.5) mg/dL Magnesium (1.7-2.2) mg/dL Total Bilirubin 0.4 (0.2-1.3) mg/dL Direct Bilirubin (0.0-0.4) mg/dL AST 22 (17-59) U/L ALT 25 (7-56) U/L Alkaline Phosphatase 110 (38-126) U/L Total Protein 5.2 L (5.8-8.3) g/dL Albumin 2.1 L (3.0-4.8) g/dL Globulin 3.1 gm/dL Albumin/Globulin Ratio 0.7 L (1.1-1.8) 09/18/18 09/17/18 09/17/18 Range/Units 01:50 22:11 16:17 WBC 12.7 H (4.5-11.0) 10^3/uL RBC 4.37 (3.5-6.1) 10^6/uL Hgb 10.8 L (14.0-18.0) g/dL Hct 34.6 L (42.0-52.0) % MCV 79.2 L (80.0-105.0) fl MCH 24.7 L (25.0-35.0) pg MCHC 31.2 (31.0-37.0) g/dl RDW 19.7 H (11.5-14.5) % Plt Count 82 L (120.0-450.0) 10^3/uL Manual Plt Count (120-450) K/mm3 Neut % (Auto) 86.4 H (50.0-68.0) % Lymph % (Auto) 8.4 L (22.0-35.0) % [place] % (Auto) 5.0 (1.0-6.0) % Eos % (Auto) 0.2 L (1.5-5.0) % Baso % (Auto) 0.0 (0.0-3.0) % Lymph # (Auto) 1.1 L (1.2-3.4) [place] # (Auto) 0.6 (0.1-0.6) Eos # (Auto) 0.0 (0.0-0.7) Baso # (Auto) 0.00 (0.0-2.0) K/mm3 Absolute Neuts (auto) 10.94 H (1.4-6.5) PT (9.4-12.5) SECONDS INR APTT (26.9-38.3) Seconds Sodium (132-148) mmol/L Potassium (3.6-5.0) mmol/L Chloride (98-107) mmol/L Carbon Dioxide (21-33) mmol/L Anion Gap (10-20) BUN (7-21) mg/dL Creatinine (0.8-1.5) mg/dl Est GFR ( Amer) Est GFR (Non-Af Amer) POC Glucose (mg/dL) 278 H 223 H (65-110) mg/dL Random Glucose (70-110) mg/dL Calcium (8.4-10.5) mg/dL Phosphorus (2.5-4.5) mg/dL Magnesium (1.7-2.2) mg/dL Total Bilirubin (0.2-1.3) mg/dL Direct Bilirubin (0.0-0.4) mg/dL AST (17-59) U/L ALT (7-56) U/L Alkaline Phosphatase (38-126) U/L Total Protein (5.8-8.3) g/dL Albumin (3.0-4.8) g/dL Globulin gm/dL Albumin/Globulin Ratio (1.1-1.8) 09/17/18 09/17/18 Range/Units 16:01 11:17 WBC 14.0 H (4.5-11.0) 10^3/uL RBC 4.68 (3.5-6.1) 10^6/uL Hgb 11.4 L (14.0-18.0) g/dL Hct 36.9 L (42.0-52.0) % MCV 78.8 L (80.0-105.0) fl MCH 24.4 L (25.0-35.0) pg MCHC 30.9 L (31.0-37.0) g/dl RDW 19.7 H (11.5-14.5) % Plt Count 93 L (120.0-450.0) 10^3/uL Manual Plt Count (120-450) K/mm3 Neut % (Auto) 95.8 H (50.0-68.0) % Lymph % (Auto) 2.6 L (22.0-35.0) % [place] % (Auto) 1.6 (1.0-6.0) % Eos % (Auto) 0.0 L (1.5-5.0) % Baso % (Auto) 0.0 (0.0-3.0) % Lymph # (Auto) 0.4 L (1.2-3.4) [place] # (Auto) 0.2 (0.1-0.6) Eos # (Auto) 0.0 (0.0-0.7) Baso # (Auto) 0.00 (0.0-2.0) K/mm3 Absolute Neuts (auto) 13.44 H (1.4-6.5) PT (9.4-12.5) SECONDS INR APTT (26.9-38.3) Seconds Sodium (132-148) mmol/L Potassium (3.6-5.0) mmol/L Chloride (98-107) mmol/L Carbon Dioxide (21-33) mmol/L Anion Gap (10-20) BUN (7-21) mg/dL Creatinine (0.8-1.5) mg/dl Est GFR ( Amer) Est GFR (Non-Af Amer) POC Glucose (mg/dL) 136 H (65-110) mg/dL Random Glucose (70-110) mg/dL Calcium (8.4-10.5) mg/dL Phosphorus (2.5-4.5) mg/dL Magnesium (1.7-2.2) mg/dL Total Bilirubin (0.2-1.3) mg/dL Direct Bilirubin (0.0-0.4) mg/dL AST (17-59) U/L ALT (7-56) U/L Alkaline Phosphatase (38-126) U/L Total Protein (5.8-8.3) g/dL Albumin (3.0-4.8) g/dL Globulin gm/dL Albumin/Globulin Ratio (1.1-1.8) Laboratory Results - last 24 hr 09/17/18 09/17/18 09/17/18 11:17 16:01 16:17 WBC 14.0 H RBC 4.68 Hgb 11.4 L Hct 36.9 L MCV 78.8 L MCH 24.4 L MCHC 30.9 L RDW 19.7 H Plt Count 93 L Manual Plt Count Neut % (Auto) 95.8 H Lymph % (Auto) 2.6 L [place] % (Auto) 1.6 Eos % (Auto) 0.0 L Baso % (Auto) 0.0 Lymph # (Auto) 0.4 L [place] # (Auto) 0.2 Eos # (Auto) 0.0 Baso # (Auto) 0.00 Absolute Neuts (auto) 13.44 H PT INR APTT Sodium Potassium Chloride Carbon Dioxide Anion Gap BUN Creatinine Est GFR ( Amer) Est GFR (Non-Af Amer) POC Glucose (mg/dL) 136 H 223 H Random Glucose Calcium Phosphorus Magnesium Total Bilirubin Direct Bilirubin AST ALT Alkaline Phosphatase Total Protein Albumin Globulin Albumin/Globulin Ratio 09/17/18 09/18/18 09/18/18 22:11 01:50 06:43 WBC 12.7 H 12.8 H RBC 4.37 4.33 Hgb 10.8 L 10.6 L Hct 34.6 L 34.5 L MCV 79.2 L 79.7 L MCH 24.7 L 24.5 L MCHC 31.2 30.7 L RDW 19.7 H 19.9 H Plt Count 82 L 84 L Manual Plt Count Neut % (Auto) 86.4 H 86.9 H Lymph % (Auto) 8.4 L 7.7 L [place] % (Auto) 5.0 5.0 Eos % (Auto) 0.2 L 0.3 L Baso % (Auto) 0.0 0.1 Lymph # (Auto) 1.1 L 1.0 L [place] # (Auto) 0.6 0.6 Eos # (Auto) 0.0 0.0 Baso # (Auto) 0.00 0.01 Absolute Neuts (auto) 10.94 H 11.08 H PT INR APTT Sodium Potassium Chloride Carbon Dioxide Anion Gap BUN Creatinine Est GFR ( Amer) Est GFR (Non-Af Amer) POC Glucose (mg/dL) 278 H Random Glucose Calcium Phosphorus Magnesium Total Bilirubin Direct Bilirubin AST ALT Alkaline Phosphatase Total Protein Albumin Globulin Albumin/Globulin Ratio 09/18/18 09/18/18 09/18/18 06:43 06:43 06:43 WBC RBC Hgb Hct MCV MCH MCHC RDW Plt Count Manual Plt Count 96 L Neut % (Auto) Lymph % (Auto) [place] % (Auto) Eos % (Auto) Baso % (Auto) Lymph # (Auto) [place] # (Auto) Eos # (Auto) Baso # (Auto) Absolute Neuts (auto) PT 14.4 H INR 1.27 APTT 36.1 Sodium 141 Potassium 3.3 L Chloride 107 Carbon Dioxide 26 Anion Gap 12 BUN 36 H Creatinine 2.5 H Est GFR ( Amer) 32 Est GFR (Non-Af Amer) 26 POC Glucose (mg/dL) Random Glucose 149 H Calcium 8.0 L Phosphorus Magnesium Total Bilirubin 0.4 Direct Bilirubin AST 22 ALT 25 Alkaline Phosphatase 110 Total Protein 5.2 L Albumin 2.1 L Globulin 3.1 Albumin/Globulin Ratio 0.7 L 09/18/18 09/18/18 07:00 07:19 WBC RBC Hgb Hct MCV MCH MCHC RDW Plt Count Manual Plt Count Neut % (Auto) Lymph % (Auto) [place] % (Auto) Eos % (Auto) Baso % (Auto) Lymph # (Auto) [place] # (Auto) Eos # (Auto) Baso # (Auto) Absolute Neuts (auto) PT INR APTT Sodium Potassium Chloride Carbon Dioxide Anion Gap BUN Creatinine Est GFR ( Amer) Est GFR (Non-Af Amer) POC Glucose (mg/dL) 210 H Random Glucose Calcium Phosphorus 4.4 Magnesium 1.9 Total Bilirubin 0.4 Direct Bilirubin 0.4 AST 21 ALT 25 Alkaline Phosphatase 108 Total Protein 5.2 L Albumin 2.1 L Globulin 3.1 Albumin/Globulin Ratio 0.7 L Critical Care Progress Note - Nutrition Nutrition: Nutrition Category Date Time Status Renal Diet [DIET] Diets 09/17/18 Dinner Ordered Attending/Attestation - Attestation I have personally seen and examined this patient.: Yes I have fully participated in the care of the patient.: Yes I have reviewed all pertinent clinical information: Yes Notes (Text): 09/18/18 11:24 67 yo male with lower GI bleed due to bleeding rectal ulcers. EGD, CTA abdo/pelvis, GI bleeding scan--all negative, thus upper GI bleed, aorto-colonic fistula are much less likely. mentating at baseline, no chest pain, ESRD/HD. BP/HR stable. Hb relatively stable--spoke with surgical svc: no surgical intervention, GI- cleared for advancing diet and reccs to avoid constipation. Ok to downgrade to tele. if clinical situation changed, deteriorates, including but not limited: hypotension, respiratory distress, shock--please reconsult ICU ccm time 40 min
[2018-09-18 07:54] LABS: ALB/GLOB RATIO 0.7 (1.1-1.8); ALBUMIN 2.1 g/dL (3.0-4.8)
--- NOTE | 2018-09-18 08:02 | CP.PCM.PN ---
Subjective - Date & Time of Evaluation Date of Evaluation: 09/17/18 Time of Evaluation: 10:00 - Subjective Subjective: Patient NPO, would like to eat; otherwise, no sob; reported to have another bloody BM late this evening; Objective - Vital Signs/Intake and Output Vital Signs (last 24 hours): Temp Pulse Resp BP Pulse Ox 98.1 F 86 16 147/85 96 09/17/18 16:30 09/18/18 07:23 09/18/18 07:23 09/18/18 07:00 09/17/18 16:30 - Medications Medications: Current Medications Acetaminophen (Tylenol 325mg Tab) 650 mg PO Q4H PRN PRN Reason: temp > 99.5F Acetaminophen (Tylenol 325mg Tab) 650 mg PO Q6 PRN PRN Reason: TEMP>=99.5F Acetaminophen (Tylenol 650 Mg Supp) 650 mg RC Q6H PRN PRN Reason: TEMP>=99.5F Atorvastatin Calcium (Lipitor) 10 mg PO DIN [facility] Last Admin: 09/17/18 17:24 Dose: 10 mg Cyproheptadine HCl (Periactin) 4 mg PO BID [facility] Last Admin: 09/17/18 17:24 Dose: 4 mg Ezetimibe (Zetia) 10 mg PO DAILY [facility] Last Admin: 09/17/18 09:41 Dose: 10 mg Famotidine (Pepcid) 40 mg PO HS [facility] Last Admin: 09/17/18 22:13 Dose: 40 mg Sodium Chloride (Sodium Chloride 0.9%) 500 mls @ 10 mls/hr IV .Q24H [facility] Last Admin: 09/17/18 17:26 Dose: Not Given Ceftriaxone Sodium (Rocephin 1 Gram Ivpb) 1 gm in 100 mls @ 100 mls/hr IVPB DAILY [facility]; Protocol Last Admin: 09/17/18 09:42 Dose: 100 mls/hr Insulin Human Regular (Humulin R Low) 0 units SC ACHS [facility]; Protocol Last Admin: 09/17/18 22:12 Dose: Not Given Lactulose (Enulose) 15 gm PO DAILY [facility] Levalbuterol HCl (Xopenex) 0.63 mg IH [id number] [facility] Last Admin: 09/18/18 02:31 Dose: 0.63 mg Lidocaine (Lidoderm) 1 ea TD DAILY [facility] Last Admin: 09/17/18 09:43 Dose: 1 ea Metoprolol Tartrate (Lopressor) 25 mg PO Q8H [facility] Ondansetron HCl (Zofran Inj) 4 mg IVP Q4H PRN PRN Reason: Nausea/Vomiting Pantoprazole Sodium (Protonix Inj) 40 mg IVP DAILY [facility] Last Admin: 09/17/18 10:00 Dose: 40 mg Prednisone (Prednisone Tab) 5 mg PO BRK [facility] Last Admin: 09/17/18 07:48 Dose: 5 mg Thiamine HCl (Vitamin B1 Tab) 100 mg PO DAILY [facility] Last Admin: 09/17/18 11:00 Dose: 100 mg - Labs Labs: 09/18/18 06:43 09/18/18 06:43 PT 14.4 SECONDS (9.4-12.5) H 09/18/18 06:43 INR 1.27 09/18/18 06:43 APTT 36.1 Seconds (26.9-38.3) 09/18/18 06:43 - Constitutional Appears: Non-toxic, No Acute Distress - Eye Exam Eye Exam: Normal appearance - Respiratory Exam Respiratory Exam: Clear to Ausculation Bilateral. absent: Rales, Respiratory Distress Additional comments: decreased breath sounds at bases; - Cardiovascular Exam Cardiovascular Exam: Tachycardia. absent: Gallop, JVD, Rubs - GI/Abdominal Exam GI & Abdominal Exam: Soft, Pulsatile Mass. absent: Tenderness - Extremities Exam Additional comments: mild ankle edema; - Neurological Exam Neurological Exam: Alert, Awake - Psychiatric Exam Psychiatric exam: Normal Mood. absent: Agitated - Skin Skin Exam: Warm. absent: Cyanosis Assessment and Plan (1) ESRD (end stage renal disease) Assessment & Plan: Relatively stable electrolyte status; BP elevated s/p 3 u prbc transfusion but doesn't appear volume overloaded on exam; stable resp status, not requiring additional FIO2 despite likely small pleural effusions; no urgent indication for HD today, next HD for tomorrow (, off schedule); Status: Chronic (2) Hypertensive CKD, ESRD on dialysis Assessment & Plan: BP elevated; has been off all anti-htn meds since past ~1 week as he was previously hypotensive/had orthostatic changes; will restart metorpolol 25 mg bid (especially in light of large AAA with chronic dissection); Status: Acute (3) GI bleed Assessment & Plan: Continues to have some mild blood loss; will keep on EPO on HD, transfuse prn; Status: Acute (4) Immunosuppression Assessment & Plan: Currently on prednisone 5 mg daily, continue same for now; Status: Acute (5) Chronic kidney disease-mineral and bone disorder Assessment & Plan: Had been on calcitriol 0.75 mcg qMWF, will continue same; Status: Chronic
[2018-09-18 08:04] LABS: ALB/GLOB RATIO 0.7 (1.1-1.8); ALBUMIN 2.1 g/dL (3.0-4.8); BILIRUBIN,DIRECT 0.4 mg/dL (0.0-0.4)
--- NOTE | 2018-09-18 09:13 | CP.PCM.PN ---
Subjective - Date & Time of Evaluation Date of Evaluation: 09/18/18 Time of Evaluation: 07:30 - Subjective Subjective: General Surgery Progress Note for Dr. Al Richards, PGY1 Patient seen and examined at bedside this morning. Patient had bloody BM overnight but denies any BM this morning. Patient is tolerating renal diet. Denies any complaints at this time including nausea, vomiting, abdominal pain, diarrhea, constipation, numbness, tingling, dizziness and fevers. Objective - Vital Signs/Intake and Output Vital Signs (last 24 hours): Temp Pulse Resp BP Pulse Ox 98.1 F 86 16 147/85 96 09/17/18 16:30 09/18/18 07:23 09/18/18 07:23 09/18/18 07:00 09/17/18 16:30 - Medications Medications: Current Medications Acetaminophen (Tylenol 325mg Tab) 650 mg PO Q4H PRN PRN Reason: temp > 99.5F Acetaminophen (Tylenol 325mg Tab) 650 mg PO Q6 PRN PRN Reason: TEMP>=99.5F Acetaminophen (Tylenol 650 Mg Supp) 650 mg RC Q6H PRN PRN Reason: TEMP>=99.5F Atorvastatin Calcium (Lipitor) 10 mg PO DIN [facility] Last Admin: 09/17/18 17:24 Dose: 10 mg Calcitriol (Rocaltrol) 0.75 mcg PO TTS [facility] Cyproheptadine HCl (Periactin) 4 mg PO BID [facility] Last Admin: 09/17/18 17:24 Dose: 4 mg Ezetimibe (Zetia) 10 mg PO DAILY [facility] Last Admin: 09/17/18 09:41 Dose: 10 mg Famotidine (Pepcid) 40 mg PO HS [facility] Last Admin: 09/17/18 22:13 Dose: 40 mg Sodium Chloride (Sodium Chloride 0.9%) 500 mls @ 10 mls/hr IV .Q24H [facility] Last Admin: 09/17/18 17:26 Dose: Not Given Ceftriaxone Sodium (Rocephin 1 Gram Ivpb) 1 gm in 100 mls @ 100 mls/hr IVPB DAILY [facility]; Protocol Last Admin: 09/17/18 09:42 Dose: 100 mls/hr Insulin Human Regular (Humulin R Low) 0 units SC ACHS [facility]; Protocol Last Admin: 09/17/18 22:12 Dose: Not Given Lactulose (Enulose) 15 gm PO DAILY [facility] Levalbuterol HCl (Xopenex) 0.63 mg IH [id number] [facility] Last Admin: 09/18/18 08:27 Dose: 0.63 mg Lidocaine (Lidoderm) 1 ea TD DAILY [facility] Last Admin: 09/17/18 09:43 Dose: 1 ea Metoprolol Tartrate (Lopressor) 25 mg PO Q8H [facility] Ondansetron HCl (Zofran Inj) 4 mg IVP Q4H PRN PRN Reason: Nausea/Vomiting Pantoprazole Sodium (Protonix Inj) 40 mg IVP DAILY [facility] Last Admin: 09/17/18 10:00 Dose: 40 mg Prednisone (Prednisone Tab) 5 mg PO BRK [facility] Last Admin: 09/17/18 07:48 Dose: 5 mg Thiamine HCl (Vitamin B1 Tab) 100 mg PO DAILY [facility] Last Admin: 09/17/18 11:00 Dose: 100 mg - Labs Labs: 09/18/18 06:43 09/18/18 06:43 PT 14.4 SECONDS (9.4-12.5) H 09/18/18 06:43 INR 1.27 09/18/18 06:43 APTT 36.1 Seconds (26.9-38.3) 09/18/18 06:43 - Constitutional Appears: No Acute Distress, Cachectic, Chronically Ill - Head Head Exam: right sided facial swelling noted, improved - Eyes Eye Exam: EOMI - Respiratory Exam Respiratory Exam: Clear to Ausculation Bilateral. absent: Accessory Muscle Use, Respiratory Distress - Cardiovascular Exam Cardiovascular Exam: REGULAR RHYTHM, +S1, +S2 - GI/Abdominal Exam GI & Abdominal Exam: Soft. Nontender. Bowel sounds appreciated in all 4 quadrants. Pulsatile mass appreciated on right side of abdomen. absent: Guarding, Rigid - Neurological Exam Neurological Exam: CN II-XII Intact, Oriented x3, Alert Additional exam: Moving all extremities spontaneously, no motor/sensory deficits appreciated - Extremities Exam Extremities Exam: Normal Inspection. absent: Calf Tenderness, Tenderness Additional comments: cachectic lower extremities noted. No tenderness noted. DP +2 B/L Assessment and Plan - Assessment and Plan (Free Text) Assessment: This is a 67 year old male with extensive past medical history presenting to the hospital for lower GI bleeding. Lower GI Bleeding - consider 2/2 stercoral ulcerations, chronic constipation Anemia ESRD on HD Infrarenal AAA Thrombocytopenia ADPKD UTI Bactermia 2/2 klebsiella Plan: -no surgical intervention at this time, follow up outpatient with CT surgeon upon discharge -hemodialysis duplex US 09/17 shows no sonographic evidence of subcutaneous abscess, patent left upper extremity AVF with focal aneurysmal dilation -s/p 3 units PRBC, 3 units platelets, 1 unit FFP. Most recently on 09/16/18 -Hg is 10.6 from 10.8 -EGD on 09/16 showed no upper GI source of bleeding -flex sig on 09/16 showed multiple ulcers in rectum suggesting subcortical ulceration. No blood in the sigmoid. Brown stool. -CTAP reviewed - severely aneurysmal abdominal aorta, chronic dissection of infrarenal abdominal aorta, extensive diverticulosis -GI bleeding scan shows no active GI bleeding -CT angio abdomen shows chronic dissection of the abdomenal aorta. Celiac SMA are patent. 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 No evidence of aortic fistula -high risk patient for AAA repair -further recommendations per Dr. Melendez
[2018-09-18] MEDS: Insulin Reg-LOW-Coverage SC SCH ×4 (09:57→21:58)
[2018-09-18] MEDS ORDERED: POLYETHYLENE GLYCOL 3350 17 GM/Dose PACKET PO SCH (10:00)
[2018-09-18] MEDS: cefTRIAXone 1 gm 1 GM/100 ML BAG IVPB SCH (10:09)
[2018-09-18] MEDS: Lidocaine 5% Patch TD SCH (10:09)
--- NOTE | 2018-09-18 11:17 | PN ---
DATE: 09/18/2018 LOCATION: The patient is seen in CCU, bed 7. SUBJECTIVE: The patient is lying in the bed. The patient is alert, awake, responsive. Overnight nurse's notes were reviewed. The patient had burgundy bowel movement last night. The patient was found mostly to be alert, awake, oriented times two to three. PHYSICAL EXAMINATION: GENERAL: The patient appears to be chronically ill, cachectic-appearing male. VITAL SIGNS: T-max 98.2. The patient's telemetry monitoring showed a heart rate 95, 97 102, 103, 111. Respirations are 23-26, O2 sat 95-96%. Blood pressure systolic in the last 24 hours 150s to 160s, diastolic blood pressure 90s to 100. HEENT: Head examination normocephalic, atraumatic. HEENT examination shows positive facial muscle wasting. Positive cachexia, pinkish pale conjunctivae. Anicteric sclerae. No oropharyngeal lesion, questionable soft carotid bruit. CHEST: Positive median sternotomy surgical scar. Positive kyphosis. LUNGS: Shows questionable decreased breath sound at the bases. CARDIOVASCULAR: Shows S1, S2, regular rhythm. Positive systolic murmur left sternal border, right second intercostal space, left second intercostal space. ABDOMEN: Soft, positive bowel sounds, midabdominal pulsation of the abdominal aortic aneurysm. EXTREMITIES: Positive left upper extremity AV fistula, positive thrill. Lower extremity shows no pitting edema, no calf tenderness, no Homans' sign. Positive right femoral triple-lumen catheter noted. MUSCULOSKELETAL: Shows a decreased muscle mass and cachexia. Gait examination is not tested. PSYCHIATRIC: Negative for anxiety, depression. Negative for auditory and visual hallucination. Negative for suicidal and homicidal ideation. DIAGNOSTIC DATA: 09/18/2018, WBC 12.7, hemoglobin/hematocrit 10.8 and 34.6, platelet 82,000, granulocytes 86% segs. Chemistry is pending. Fingerstick blood sugar 278, 223, 136. CMP, LFTs are pending. In the last 24 hours, the patient was seen by Cardiology and Nephrology. IMPRESSION AND PLAN: 1. Status post hypotension and hypotensive hypovolemic hemorrhagic shock. 2. Acute blood loss anemia. 3. Lower gastrointestinal bleeding with acute blood loss anemia. 4. Status post packed red blood cell transfusion x3, fresh frozen plasma x1, and platelet transfusion x3. 5. Small right pleural effusion. 6. Bright red blood per rectum and lower gastrointestinal bleeding. 7. Leukocytosis. 8. Normocytic anemia. 9. Thrombocytopenia. 10. Granulocytosis. 11. End-stage renal disease, hemodialysis dependent. 12. Hypokalemia and end-stage renal disease, hemodialysis dependent. 13. Cachexia. 14. Right lower lobe pneumonia consolidation, atelectasis, and elevated right hemidiaphragm. 15. Tachycardia. 16. Hypertension. 17. Status post renal transplant and rejection. 18. Immunosuppressed status. 19. Possible disseminated intravascular coagulation. 20. Klebsiella pneumoniae urinary tract infection. 21. Klebsiella pneumoniae bacteremia and sepsis. 22. Aortic valve replacement. 23. Hypertensive cardiovascular disease. 24. Recurrent gastrointestinal bleeding. 25. Rectal stercoral ulceration. 26. Duodenal diverticulum. 27. Gastritis. 28. Transfusion dependent and transfusion requiring anemia. 29. Insulin-requiring diabetes mellitus. 30. Secondary hyperparathyroidism with elevated PTH level. 31. Protein malnutrition. 32. Hypoalbuminemia. 33. Gait dysfunction. 34. Deconditioning. 35. Recurrent gastrointestinal bleeding. PLAN: At this time, the patient is currently in intensive care unit. The patient was started on metoprolol by Nephrology, the dose has been titrated to Lopressor 25 mg every 8 hours. The patient is on IV antibiotics as per Infectious Disease recommendations. The patient is on PPI. The patient is currently being consulted with Infectious Disease, Nephrology, Cardiology, Gastroenterology, Hematology/Oncology, and Neurology. The patient will be continued on the medications as per the MAR of today, which was reviewed. The patient will be continued on all therapeutic intervention as per the MAR. The patient will be monitored subjectively and objectively. The patient's CBC and hemoglobin/hematocrit will be monitored very closely for any downward trend in the hemoglobin/hematocrit which may require transfusion of blood products, and the patient will be monitored for any gastrointestinal bleeding. The patient's overall prognosis is guarded to poor. The patient will be considered for transferred out of the ICU if the patient stays stable and if the patient's subjective and objective data stays stable and after the patient was cleared by all subspecialty. Time spent 35 minutes. The patient's chemistry still is pending, which will be reviewed when available. Mart Knox MD [facility] # [id number]
--- NOTE | 2018-09-18 11:48 | CP.PCM.PN ---
<Ginger Daniel - Last Filed: 09/18/18 11:44> Subjective - Date & Time of Evaluation Date of Evaluation: 09/18/18 Time of Evaluation: 11:44 - Subjective Subjective: Ginger Daniel, PGY2, GI Progress Note for Dr Cordova: Patient seen and examined at bedside. Patient had 1 large maroon colored BM after lactulose dose overnight. Patient also had 1 bloody BM yesterday afternoon. Patient denies abdominal pain, nausea, vomiting, fevers. Tolerating PO diet well, reports good appetite. Objective - Vital Signs/Intake and Output Vital Signs (last 24 hours): Temp Pulse Resp BP Pulse Ox 97.8 F 76 14 147/86 93 L 09/18/18 08:00 09/18/18 11:30 09/18/18 11:30 09/18/18 11:00 09/18/18 11:30 - Medications Medications: Current Medications Acetaminophen (Tylenol 325mg Tab) 650 mg PO Q4H PRN PRN Reason: temp > 99.5F Acetaminophen (Tylenol 325mg Tab) 650 mg PO Q6 PRN PRN Reason: TEMP>=99.5F Acetaminophen (Tylenol 650 Mg Supp) 650 mg RC Q6H PRN PRN Reason: TEMP>=99.5F Atorvastatin Calcium (Lipitor) 10 mg PO DIN [facility] Last Admin: 09/17/18 17:24 Dose: 10 mg Calcitriol (Rocaltrol) 0.75 mcg PO TTS [facility] Last Admin: 09/18/18 10:11 Dose: 0.75 mcg Cyproheptadine HCl (Periactin) 4 mg PO BID [facility] Last Admin: 09/18/18 10:11 Dose: 4 mg Ezetimibe (Zetia) 10 mg PO DAILY [facility] Last Admin: 09/18/18 10:10 Dose: 10 mg Famotidine (Pepcid) 40 mg PO HS [facility] Last Admin: 09/17/18 22:13 Dose: 40 mg Sodium Chloride (Sodium Chloride 0.9%) 500 mls @ 10 mls/hr IV .Q24H [facility] Last Admin: 09/17/18 17:26 Dose: Not Given Insulin Human Regular (Humulin R Low) 0 units SC ACHS [facility]; Protocol Last Admin: 09/18/18 09:57 Dose: Not Given Lactulose (Enulose) 15 gm PO DAILY [facility] Last Admin: 09/18/18 10:10 Dose: 15 gm Levalbuterol HCl (Xopenex) 0.63 mg IH [id number] [facility] Last Admin: 09/18/18 08:27 Dose: 0.63 mg Lidocaine (Lidoderm) 1 ea TD DAILY [facility] Last Admin: 09/18/18 10:09 Dose: 1 ea Metoprolol Tartrate (Lopressor) 25 mg PO Q8H [facility] Last Admin: 09/18/18 10:11 Dose: 25 mg Ondansetron HCl (Zofran Inj) 4 mg IVP Q4H PRN PRN Reason: Nausea/Vomiting Pantoprazole Sodium (Protonix Inj) 40 mg IVP DAILY [facility] Last Admin: 09/18/18 10:09 Dose: 40 mg Prednisone (Prednisone Tab) 5 mg PO BRK [facility] Last Admin: 09/18/18 10:12 Dose: 5 mg Thiamine HCl (Vitamin B1 Tab) 100 mg PO DAILY [facility] Last Admin: 09/18/18 10:11 Dose: 100 mg - Labs Labs: 09/18/18 06:43 09/18/18 06:43 PT 14.4 SECONDS (9.4-12.5) H 09/18/18 06:43 INR 1.27 09/18/18 06:43 APTT 36.1 Seconds (26.9-38.3) 09/18/18 06:43 - Additional Findings Additional findings: - Constitutional Appears: Non-toxic, Cachectic, Chronically Ill - Head Exam Head Exam: ATRAUMATIC, NORMOCEPHALIC - Eye Exam Eye Exam: EOMI, PERRL. absent: Conjunctival injection, Nystagmus, Scleral icterus Pupil Exam: NORMAL ACCOMODATION, PERRL. absent: Irregular, Miosis, Unequal - ENT Exam ENT Exam: Mucous Membranes Dry - Neck Exam Neck exam: Positive for: Full Rom - Respiratory Exam Respiratory Exam: Clear to Auscultation Bilateral, NORMAL BREATHING PATTERN. absent: Accessory Muscle Use, Rhonchi, Wheezes - Cardiovascular Exam Cardiovascular Exam: RRR, +S1, +S2, Systolic Murmur - GI/Abdominal Exam GI & Abdominal Exam: Normal Bowel Sounds, Soft. absent: Distended, Firm, Rebound, Rigid - Extremities Exam Extremities exam: Positive for: normal inspection. Negative for: calf tenderness, pedal edema - Back Exam Back exam: NORMAL INSPECTION - Neurological Exam Neurological exam: Alert, Oriented x3 - Psychiatric Exam Psychiatric exam: Normal Affect, Normal Mood - Skin Skin Exam: Normal Color, Warm Assessment and Plan - Assessment and Plan (Free Text) Assessment: # GI bleed, 2/2 stercoral ulcerations 2/2 chronic constipation # Microcytic anemia # Thrombocytopenia # Klebsiella Bacteremia 2/2 UTI # Polycystic Kidney disease s/p right renal allograft # ESRD on HD MWF # HTN # Severe Aortic Stenosis with hx of prior AV replacement (not candidate for TAVR as of 2018) # unrepaired infrarenal AAA - CT abd pelvis w/o contrast: extensive diverticulosis. abdominal/pelvic ascites. No free air. Heterogenous appearance of liver with innumerable hypodensities, possibly tiny cysts or hemangiomas. Ill denied hypodense region within hepatic dome spanning 16 x 10 mm. - bleeding scan negative - angio of abd with contrast negative for any aortic fistula - s/p 1 unit FFP, platelets, 3 units prbcs - Hgb stable this AM, 10.6. Will continue to monitor closely. - EGD 09/16 showed no bleeding source. Flex sigmoidoscopy showed multiple ulcers in rectum, likely stercoral ulcerations. The endoscope was advanced all the way up to 30 cm, no blood was noticed in the sigmoid. Brown stool noticed. - Continue with bowel regimen, miralax. Prevent constipation. - continue with renal, low carb consistent soft diet - c/w abx for bacteremia - further recs per Dr Cordova. Case seen and discussed with Dr Cordova. <Mac Cordova V - Last Filed: 09/19/18 00:23> Objective - Vital Signs/Intake and Output Vital Signs (last 24 hours): Temp Pulse Resp BP Pulse Ox 98.8 F 74 17 127/65 96 09/19/18 00:00 09/19/18 00:00 09/19/18 00:00 09/19/18 00:00 09/18/18 22:00 Intake and Output: 09/18/18 09/19/18 18:59 06:59 Intake Total 350 Output Total 1077 Balance -727 - Medications Medications: Current Medications Acetaminophen (Tylenol 325mg Tab) 650 mg PO Q4H PRN PRN Reason: temp > 99.5F Acetaminophen (Tylenol 325mg Tab) 650 mg PO Q6 PRN PRN Reason: TEMP>=99.5F Acetaminophen (Tylenol 650 Mg Supp) 650 mg RC Q6H PRN PRN Reason: TEMP>=99.5F Atorvastatin Calcium (Lipitor) 10 mg PO DIN [facility] Last Admin: 09/18/18 18:10 Dose: 10 mg Calcitriol (Rocaltrol) 0.75 mcg PO TTS [facility] Last Admin: 09/18/18 10:11 Dose: 0.75 mcg Cyproheptadine HCl (Periactin) 4 mg PO BID [facility] Last Admin: 09/18/18 18:10 Dose: 4 mg Ezetimibe (Zetia) 10 mg PO DAILY [facility] Last Admin: 09/18/18 10:10 Dose: 10 mg Famotidine (Pepcid) 40 mg PO HS [facility] Last Admin: 09/18/18 21:58 Dose: 40 mg Sodium Chloride (Sodium Chloride 0.9%) 500 mls @ 10 mls/hr IV .Q24H [facility] Last Admin: 09/18/18 18:10 Dose: Not Given Insulin Human Regular (Humulin R Low) 0 units SC ACHS [facility]; Protocol Last Admin: 09/18/18 21:58 Dose: Not Given Lactulose (Enulose) 15 gm PO DAILY [facility] Last Admin: 09/18/18 10:10 Dose: 15 gm Levalbuterol HCl (Xopenex) 0.63 mg IH [id number] [facility] Last Admin: 09/18/18 20:28 Dose: Not Given Lidocaine (Lidoderm) 1 ea TD DAILY [facility] Last Admin: 09/18/18 10:09 Dose: 1 ea Metoprolol Tartrate (Lopressor) 25 mg PO Q8 [facility] Ondansetron HCl (Zofran Inj) 4 mg IVP Q4H PRN PRN Reason: Nausea/Vomiting Pantoprazole Sodium (Protonix Inj) 40 mg IVP DAILY [facility] Last Admin: 09/18/18 10:09 Dose: 40 mg Prednisone (Prednisone Tab) 5 mg PO BRK [facility] Last Admin: 09/18/18 10:12 Dose: 5 mg Thiamine HCl (Vitamin B1 Tab) 100 mg PO DAILY [facility] Last Admin: 09/18/18 10:11 Dose: 100 mg - Labs Labs: 09/18/18 06:43 09/18/18 06:43 PT 14.4 SECONDS (9.4-12.5) H 09/18/18 06:43 INR 1.27 09/18/18 06:43 APTT 36.1 Seconds (26.9-38.3) 09/18/18 06:43 Attending/Attestation - Attestation I have personally seen and examined this patient.: Yes I have fully participated in the care of the patient.: Yes I have reviewed all pertinent clinical information, including history, physical exam and plan: Yes Notes (Text): This patient seen and evaluated earlier along with the medical psychotherapist. This is an addendum to the GI progress report dictated by the resident. Ventilator remained stable. Patient did have large struck oral ulcerations in the flexible sigmoidoscopy Continue lactulose follow-up of the hemoglobin hematocrit 09/19/18 00:21
--- NOTE | 2018-09-18 11:51 | PN ---
DATE: 09/18/2018 SUBJECTIVE: The patient is sitting in bed, eating. No shortness of breath. No chest pain. PHYSICAL EXAMINATION: VITAL SIGNS: Blood pressure is 147/85, heart rate is in the 80s. NECK: Negative JVD. LUNGS: Without rales. HEART: S1, S2. EXTREMITIES: Without change. LABORATORY DATA: Hemoglobin is stable at 10.6. Chemistries, BUN and creatinine 36 and 2.5. IMPRESSION: 1. Recurrent gastrointestinal bleed. 2. Renal insufficiency. 3. Marked anemia. 4. Aortic valve sclerosis. 5. History of abdominal aortic aneurysm. 6. Diabetes mellitus. PLAN: Given these findings, despite his bloody bowel movements, the patient's hemoglobin is stable. Awaiting GI input. Carlos Shane MD
[2018-09-18] MEDS: Sodium Chloride 0.9% 500 ML IV SCH (18:10)
--- NOTE | 2018-09-18 20:13 | CP.PCM.PN ---
Subjective - Date & Time of Evaluation Date of Evaluation: 09/17/18 Time of Evaluation: 20:00 - Subjective Subjective: Being cleaned and noted large maroon BM Objective - Vital Signs/Intake and Output Vital Signs (last 24 hours): Temp Pulse Resp BP Pulse Ox 98.6 F 84 20 166/104 H 93 L 09/18/18 14:00 09/18/18 18:19 09/18/18 18:19 09/18/18 18:15 09/18/18 11:30 Intake and Output: 09/18/18 09/19/18 18:59 06:59 Intake Total 350 Output Total 1077 Balance -727 - Medications Medications: Current Medications Acetaminophen (Tylenol 325mg Tab) 650 mg PO Q4H PRN PRN Reason: temp > 99.5F Acetaminophen (Tylenol 325mg Tab) 650 mg PO Q6 PRN PRN Reason: TEMP>=99.5F Acetaminophen (Tylenol 650 Mg Supp) 650 mg RC Q6H PRN PRN Reason: TEMP>=99.5F Atorvastatin Calcium (Lipitor) 10 mg PO DIN [facility] Last Admin: 09/18/18 18:10 Dose: 10 mg Calcitriol (Rocaltrol) 0.75 mcg PO TTS [facility] Last Admin: 09/18/18 10:11 Dose: 0.75 mcg Cyproheptadine HCl (Periactin) 4 mg PO BID [facility] Last Admin: 09/18/18 18:10 Dose: 4 mg Ezetimibe (Zetia) 10 mg PO DAILY [facility] Last Admin: 09/18/18 10:10 Dose: 10 mg Famotidine (Pepcid) 40 mg PO HS [facility] Last Admin: 09/17/18 22:13 Dose: 40 mg Sodium Chloride (Sodium Chloride 0.9%) 500 mls @ 10 mls/hr IV .Q24H [facility] Last Admin: 09/18/18 18:10 Dose: Not Given Insulin Human Regular (Humulin R Low) 0 units SC ACHS [facility]; Protocol Last Admin: 09/18/18 18:08 Dose: Not Given Lactulose (Enulose) 15 gm PO DAILY [facility] Last Admin: 09/18/18 10:10 Dose: 15 gm Levalbuterol HCl (Xopenex) 0.63 mg IH [id number] [facility] Last Admin: 09/18/18 13:25 Dose: Not Given Lidocaine (Lidoderm) 1 ea TD DAILY [facility] Last Admin: 09/18/18 10:09 Dose: 1 ea Metoprolol Tartrate (Lopressor) 25 mg PO Q8H [facility] Last Admin: 09/18/18 16:04 Dose: Not Given Ondansetron HCl (Zofran Inj) 4 mg IVP Q4H PRN PRN Reason: Nausea/Vomiting Pantoprazole Sodium (Protonix Inj) 40 mg IVP DAILY [facility] Last Admin: 09/18/18 10:09 Dose: 40 mg Prednisone (Prednisone Tab) 5 mg PO BRK [facility] Last Admin: 09/18/18 10:12 Dose: 5 mg Thiamine HCl (Vitamin B1 Tab) 100 mg PO DAILY [facility] Last Admin: 09/18/18 10:11 Dose: 100 mg - Labs Labs: 09/18/18 06:43 09/18/18 06:43 PT 14.4 SECONDS (9.4-12.5) H 09/18/18 06:43 INR 1.27 09/18/18 06:43 APTT 36.1 Seconds (26.9-38.3) 09/18/18 06:43 - Constitutional Appears: Cachectic - Eye Exam Eye Exam: Normal appearance - ENT Exam ENT Exam: Mucous Membranes Dry - Respiratory Exam Respiratory Exam: NORMAL BREATHING PATTERN - Cardiovascular Exam Cardiovascular Exam: +S1, +S2 - GI/Abdominal Exam GI & Abdominal Exam: Normal Bowel Sounds Assessment and Plan (1) Thrombocytopenia Assessment & Plan: improving low fibrinogen ?DIC vs declining synthetic function of the liver Status: Acute (2) Anemia Assessment & Plan: GI bleeding anemia of CKD on MARK Status: Chronic (3) Coagulopathy Assessment & Plan: nutritional ?DIC Status: Acute
--- NOTE | 2018-09-18 20:16 | CP.PCM.PN ---
Subjective - Date & Time of Evaluation Date of Evaluation: 09/18/18 Time of Evaluation: 18:00 - Subjective Subjective: Appears comfortable Objective - Vital Signs/Intake and Output Vital Signs (last 24 hours): Temp Pulse Resp BP Pulse Ox 98.6 F 84 20 166/104 H 93 L 09/18/18 14:00 09/18/18 18:19 09/18/18 18:19 09/18/18 18:15 09/18/18 11:30 Intake and Output: 09/18/18 09/19/18 18:59 06:59 Intake Total 350 Output Total 1077 Balance -727 - Medications Medications: Current Medications Acetaminophen (Tylenol 325mg Tab) 650 mg PO Q4H PRN PRN Reason: temp > 99.5F Acetaminophen (Tylenol 325mg Tab) 650 mg PO Q6 PRN PRN Reason: TEMP>=99.5F Acetaminophen (Tylenol 650 Mg Supp) 650 mg RC Q6H PRN PRN Reason: TEMP>=99.5F Atorvastatin Calcium (Lipitor) 10 mg PO DIN [facility] Last Admin: 09/18/18 18:10 Dose: 10 mg Calcitriol (Rocaltrol) 0.75 mcg PO TTS [facility] Last Admin: 09/18/18 10:11 Dose: 0.75 mcg Cyproheptadine HCl (Periactin) 4 mg PO BID [facility] Last Admin: 09/18/18 18:10 Dose: 4 mg Ezetimibe (Zetia) 10 mg PO DAILY [facility] Last Admin: 09/18/18 10:10 Dose: 10 mg Famotidine (Pepcid) 40 mg PO HS [facility] Last Admin: 09/17/18 22:13 Dose: 40 mg Sodium Chloride (Sodium Chloride 0.9%) 500 mls @ 10 mls/hr IV .Q24H [facility] Last Admin: 09/18/18 18:10 Dose: Not Given Insulin Human Regular (Humulin R Low) 0 units SC ACHS [facility]; Protocol Last Admin: 09/18/18 18:08 Dose: Not Given Lactulose (Enulose) 15 gm PO DAILY [facility] Last Admin: 09/18/18 10:10 Dose: 15 gm Levalbuterol HCl (Xopenex) 0.63 mg IH [id number] [facility] Last Admin: 09/18/18 13:25 Dose: Not Given Lidocaine (Lidoderm) 1 ea TD DAILY [facility] Last Admin: 09/18/18 10:09 Dose: 1 ea Metoprolol Tartrate (Lopressor) 25 mg PO Q8H [facility] Last Admin: 09/18/18 16:04 Dose: Not Given Ondansetron HCl (Zofran Inj) 4 mg IVP Q4H PRN PRN Reason: Nausea/Vomiting Pantoprazole Sodium (Protonix Inj) 40 mg IVP DAILY [facility] Last Admin: 09/18/18 10:09 Dose: 40 mg Prednisone (Prednisone Tab) 5 mg PO BRK [facility] Last Admin: 09/18/18 10:12 Dose: 5 mg Thiamine HCl (Vitamin B1 Tab) 100 mg PO DAILY [facility] Last Admin: 09/18/18 10:11 Dose: 100 mg - Labs Labs: 09/18/18 06:43 09/18/18 06:43 PT 14.4 SECONDS (9.4-12.5) H 09/18/18 06:43 INR 1.27 09/18/18 06:43 APTT 36.1 Seconds (26.9-38.3) 09/18/18 06:43 - Constitutional Appears: Cachectic - Head Exam Head Exam: ATRAUMATIC - Eye Exam Eye Exam: Normal appearance - ENT Exam ENT Exam: Mucous Membranes Dry - Respiratory Exam Respiratory Exam: NORMAL BREATHING PATTERN - Cardiovascular Exam Cardiovascular Exam: +S1, +S2 - GI/Abdominal Exam GI & Abdominal Exam: Normal Bowel Sounds Assessment and Plan (1) DIC (disseminated intravascular coagulation) Assessment & Plan: low fibrinogen cont. to treat underlying conditions repeat fibrinogen in AM Status: Acute (2) Thrombocytopenia Assessment & Plan: secondary to DIC Status: Acute (3) Anemia Assessment & Plan: GI bleeding GI w/u noted; rectal ulcerations transfusion support PRN anemia of CKD on MARK Status: Chronic (4) Coagulopathy Assessment & Plan: DIC likely nutritional component; vit k and FFP PRN Status: Acute
--- NOTE | 2018-09-18 20:35 | PN ---
DATE: 09/18/2018 SUBJECTIVE: The patient was seen earlier this morning in room 129, bed 7. No fevers and no chills. PHYSICAL EXAMINATION: VITAL SIGNS: Temperature is 98, blood pressure is 147/80, respiratory rate of 18. HEENT: Unremarkable. NECK: Supple. LUNGS: Decreased breath sounds. HEART: Normal S1 and S2. ABDOMEN: Soft. LABORATORY DATA: Laboratory examination reveals a white count of 12,800, hemoglobin of 10, platelets of 96. Chemistry reveals a BUN of 36, creatinine of 2.5. Urinalysis is noted. Microbiology reveals the blood cultures are negative. Urine culture is . MRSA screen is negative. Review of orders reveals the patient is off of antibiotics. ASSESSMENT AND PLAN: This is a 67-year-old male, seen earlier this morning, was admitted with Klebsiella bacteremia and last admission with Klebsiella urinary tract infection and completed ceftriaxone therapy for bacteremia. He was admitted to the intensive care unit with gastrointestinal bleeding. The patient is with a renal transplant in 2006, diabetes mellitus, aortic stenosis, aortic valve replacement, large unrepaired abdominal aortic aneurysm. Off of antibiotics. We will follow with you. Bishop Squires MD
--- NOTE | 2018-09-18 22:47 | CP.PCM.PN ---
Subjective - Date & Time of Evaluation Date of Evaluation: 09/18/18 Time of Evaluation: 12:00 - Subjective Subjective: Patient seen before HD today; reports tolerating diet well no dyspnea on RA; awaiting bed on tele; Objective - Vital Signs/Intake and Output Vital Signs (last 24 hours): Temp Pulse Resp BP Pulse Ox 98.7 F 88 17 140/84 99 09/18/18 20:00 09/18/18 22:01 09/18/18 20:45 09/18/18 22:01 09/18/18 20:45 Intake and Output: 09/18/18 09/19/18 18:59 06:59 Intake Total 350 Output Total 1077 Balance -727 - Medications Medications: Current Medications Acetaminophen (Tylenol 325mg Tab) 650 mg PO Q4H PRN PRN Reason: temp > 99.5F Acetaminophen (Tylenol 325mg Tab) 650 mg PO Q6 PRN PRN Reason: TEMP>=99.5F Acetaminophen (Tylenol 650 Mg Supp) 650 mg RC Q6H PRN PRN Reason: TEMP>=99.5F Atorvastatin Calcium (Lipitor) 10 mg PO DIN [facility] Last Admin: 09/18/18 18:10 Dose: 10 mg Calcitriol (Rocaltrol) 0.75 mcg PO TTS [facility] Last Admin: 09/18/18 10:11 Dose: 0.75 mcg Cyproheptadine HCl (Periactin) 4 mg PO BID [facility] Last Admin: 09/18/18 18:10 Dose: 4 mg Ezetimibe (Zetia) 10 mg PO DAILY [facility] Last Admin: 09/18/18 10:10 Dose: 10 mg Famotidine (Pepcid) 40 mg PO HS [facility] Last Admin: 09/18/18 21:58 Dose: 40 mg Sodium Chloride (Sodium Chloride 0.9%) 500 mls @ 10 mls/hr IV .Q24H [facility] Last Admin: 09/18/18 18:10 Dose: Not Given Insulin Human Regular (Humulin R Low) 0 units SC ACHS [facility]; Protocol Last Admin: 09/18/18 21:58 Dose: Not Given Lactulose (Enulose) 15 gm PO DAILY [facility] Last Admin: 09/18/18 10:10 Dose: 15 gm Levalbuterol HCl (Xopenex) 0.63 mg IH [id number] [facility] Last Admin: 09/18/18 20:28 Dose: Not Given Lidocaine (Lidoderm) 1 ea TD DAILY [facility] Last Admin: 09/18/18 10:09 Dose: 1 ea Metoprolol Tartrate (Lopressor) 25 mg PO Q8 [facility] Ondansetron HCl (Zofran Inj) 4 mg IVP Q4H PRN PRN Reason: Nausea/Vomiting Pantoprazole Sodium (Protonix Inj) 40 mg IVP DAILY [facility] Last Admin: 09/18/18 10:09 Dose: 40 mg Prednisone (Prednisone Tab) 5 mg PO BRK [facility] Last Admin: 09/18/18 10:12 Dose: 5 mg Thiamine HCl (Vitamin B1 Tab) 100 mg PO DAILY [facility] Last Admin: 09/18/18 10:11 Dose: 100 mg - Labs Labs: 09/18/18 06:43 09/18/18 06:43 PT 14.4 SECONDS (9.4-12.5) H 09/18/18 06:43 INR 1.27 09/18/18 06:43 APTT 36.1 Seconds (26.9-38.3) 09/18/18 06:43 - Constitutional Appears: Non-toxic, No Acute Distress, Cachectic - Eye Exam Eye Exam: Normal appearance - Cardiovascular Exam Cardiovascular Exam: RRR, +S1, +S2. absent: Gallop, Rubs - GI/Abdominal Exam GI & Abdominal Exam: Pulsatile Mass. absent: Distended, Tenderness - Extremities Exam Additional comments: minimal leg edema; - Neurological Exam Neurological Exam: Alert, Awake - Psychiatric Exam Psychiatric exam: Normal Mood. absent: Agitated - Skin Skin Exam: Warm. absent: Cyanosis Assessment and Plan (1) ESRD (end stage renal disease) Assessment & Plan: Relatively stable electrolyte status (mild hypokalemia noted); no evidence of volume overload but has been hypertensive lately; HD today with 1L net UF goal, next HD for Saturday; Status: Chronic (2) Hypertensive CKD, ESRD on dialysis Assessment & Plan: BP elevated, metorprolol 25 increased to q8h, continue same; will monitor for need to add another agent (was on clonidine previously); Status: Acute (3) GI bleed Assessment & Plan: Still with intermittent bloody BM; hgb slightly lower today, will monitor, continuing with aranesp on HD; Status: Acute (4) Immunosuppression Assessment & Plan: On just prednisone 5 mg, continue for now, will taper off; Status: Acute (5) Chronic kidney disease-mineral and bone disorder Status: Chronic
[2018-09-19] MEDS: Levalbuterol 0.63 MG/3 ML Inhal Soln UD IH SCH ×4 (01:03→20:19)
[2018-09-19 06:54] LABS: BASO # 0.01 K/mm3 (0.0-2.0); BASO % 0.1 % (0.0-3.0); EOS # 0.1 (0.0-0.7); EOS % 0.8 % (1.5-5.0); HEMOGLOBIN 9.6 g/dL (14.0-18.0); LYMPH # 1.3 (1.2-3.4); LYMPH % 14.9 % (22.0-35.0); MEAN CELL VOLUME 80.8 fl (80.0-105.0); MEAN CORPUSCULAR HEMOGLOBIN 24.3 pg (25.0-35.0); MEAN CORPUSCULAR HGB CONC 30.1 g/dl (31.0-37.0); MONO # 0.5 (0.1-0.6); MONO % 6.1 % (1.0-6.0); PLATELET COUNT 66 10^3/uL (120.0-450.0); RBC 3.95 10^6/uL (3.5-6.1); RED CELL DISTRIBUTION WIDTH 20.1 % (11.5-14.5); WHITE BLOOD COUNT 8.7 10^3/uL (4.5-11.0)
[2018-09-19 07:00] LABS: INR 1.33; PARTIAL THROMBOPLASTIN TIME 34.6 Seconds (26.9-38.3)
[2018-09-19 07:18] LABS: ALB/GLOB RATIO 0.7 (1.1-1.8); ALBUMIN 1.9 g/dL (3.0-4.8); CALCIUM 7.4 mg/dL (8.4-10.5)
[2018-09-19 07:29] LABS: ALB/GLOB RATIO 0.7 (1.1-1.8); ALBUMIN 1.9 g/dL (3.0-4.8); BILIRUBIN,DIRECT 0.3 mg/dL (0.0-0.4)
[2018-09-19] MEDS ORDERED: Potassium Chloride 40 mEq/30 ml LIQ UD PO ONE (08:45)
[2018-09-19] MEDS ORDERED: Albumin Human 25% (12.5 gm/50 ml) IV SCH (09:00)
--- NOTE | 2018-09-19 09:05 | CP.PCM.PN ---
Subjective - Date & Time of Evaluation Date of Evaluation: 09/19/18 Time of Evaluation: 07:25 - Subjective Subjective: Patric FERMIN Progress Note for Dr. Knox Patient was seen and examined at bedside in ICU. The patient's BM have decreased in frequency. He is tolerating his diet well, and had HD yesterday which he also tolerated well. Otherwise, the patient denies any abdominal pain, shortness of breath or chest pain. Objective - Vital Signs/Intake and Output Vital Signs (last 24 hours): Temp Pulse Resp BP Pulse Ox 98.5 F 77 18 140/82 95 09/19/18 04:00 09/19/18 05:50 09/19/18 05:50 09/19/18 05:45 09/19/18 05:50 Intake and Output: 09/19/18 09/19/18 06:59 18:59 Intake Total 300 Balance 300 - Medications Medications: Current Medications Acetaminophen (Tylenol 325mg Tab) 650 mg PO Q4H PRN PRN Reason: temp > 99.5F Acetaminophen (Tylenol 325mg Tab) 650 mg PO Q6 PRN PRN Reason: TEMP>=99.5F Acetaminophen (Tylenol 650 Mg Supp) 650 mg RC Q6H PRN PRN Reason: TEMP>=99.5F Albumin Human (Albumin Human 25% (12.5 Gm/50 Ml)) 25 gm IV Q8H [facility] [place] Stop: 09/20/18 01:01 Atorvastatin Calcium (Lipitor) 10 mg PO DIN [facility] Last Admin: 09/18/18 18:10 Dose: 10 mg Calcitriol (Rocaltrol) 0.75 mcg PO TTS [facility] [place] Last Admin: 09/18/18 10:11 Dose: 0.75 mcg Cyproheptadine HCl (Periactin) 4 mg PO BID [facility] [place] Last Admin: 09/18/18 18:10 Dose: 4 mg Ezetimibe (Zetia) 10 mg PO DAILY [facility] [place] Last Admin: 09/18/18 10:10 Dose: 10 mg Famotidine (Pepcid) 40 mg PO HS [facility] Last Admin: 09/18/18 21:58 Dose: 40 mg Sodium Chloride (Sodium Chloride 0.9%) 500 mls @ 10 mls/hr IV .Q24H [facility] [place] Last Admin: 09/18/18 18:10 Dose: Not Given Insulin Human Regular (Humulin R Low) 0 units SC ACHS [facility] [place]; Protocol Last Admin: 09/18/18 21:58 Dose: Not Given Lactulose (Enulose) 15 gm PO DAILY [facility] [place] Last Admin: 09/18/18 10:10 Dose: 15 gm Levalbuterol HCl (Xopenex) 0.63 mg IH [id number] [facility] Last Admin: 09/19/18 07:47 Dose: 0.63 mg Lidocaine (Lidoderm) 1 ea TD DAILY [facility] Last Admin: 09/18/18 10:09 Dose: 1 ea Metoprolol Tartrate (Lopressor) 25 mg PO Q8 [facility] [place] Last Admin: 09/19/18 05:45 Dose: 25 mg Ondansetron HCl (Zofran Inj) 4 mg IVP Q4H PRN PRN Reason: Nausea/Vomiting Pantoprazole Sodium (Protonix Inj) 40 mg IVP DAILY [facility] [place] Last Admin: 09/18/18 10:09 Dose: 40 mg Prednisone (Prednisone Tab) 5 mg PO BRK [facility] [place] Last Admin: 09/18/18 10:12 Dose: 5 mg Thiamine HCl (Vitamin B1 Tab) 100 mg PO DAILY [facility] Last Admin: 09/18/18 10:11 Dose: 100 mg - Labs Labs: 09/19/18 06:10 09/19/18 06:10 PT 15.0 SECONDS (9.4-12.5) H 09/19/18 06:10 INR 1.33 09/19/18 06:10 APTT 34.6 Seconds (26.9-38.3) 09/19/18 06:10 - Constitutional Appears: Non-toxic, No Acute Distress, Cachectic, Chronically Ill - Head Exam Head Exam: ATRAUMATIC, NORMAL INSPECTION - Eye Exam Eye Exam: Normal appearance, PERRL - ENT Exam ENT Exam: Mucous Membranes Dry, Normal Exam - Neck Exam Neck Exam: Full ROM, Normal Inspection - Respiratory Exam Respiratory Exam: NORMAL BREATHING PATTERN. absent: Respiratory Distress - Cardiovascular Exam Cardiovascular Exam: RRR, +S1, +S2, Murmur. absent: Tachycardia - GI/Abdominal Exam GI & Abdominal Exam: Soft, Normal Bowel Sounds. absent: Distended, Guarding, Tenderness - Extremities Exam Extremities Exam: Full ROM. absent: Pedal Edema Additional Comments: LUE AVF +thrill +bruit - Neurological Exam Neurological Exam: Alert, Awake, Oriented x3 - Skin Skin Exam: Normal Color, Warm Assessment and Plan - Assessment and Plan (Free Text) Assessment: 67 year old male with a PMH of ADPKD s/p renal allograft (2006), ESRD on HD MWF, DM2, HTN, severe , and unrepaired infrarenal AAA who is being admitted for hematochezia while in the TCU. Bleeding scan showed no active bleeding, and CTA abd/pelvis showed chronic dissection of abdominal aorta, patent celiac and SMA, large aneurysm extending into pelvis (7.8x9.2 cm) and no evidence of aortic fistula. Post EGD and flex-sig that showed no esophageal/gastric cause of bleeding but was positive for brown stools with stercoral ulcerations. Plan: 1. GI bleeding, likely 2/2 stercoral ulcerations - cont lactulose daily per GI recs - cont protonix daily for GI ppx - GI is consulted, recs appreciated - transfused 3u pRBC, 1u FFP and 3u platelets in total - advance diet per GI recs; currently advanced to soft renal diet 2. ESRD - MWF HD at home; last HD session , next planned on is tom, Saturday - Nephrology consulted, recs appreciated - US reviewed showing chronic aneurysm w/ no signs of abscess 3. Anemia - likely multifactorial due to active bleeding and chronic anemia due to ESRD/iron deficiency and chronic inflammation - Heme/Onc consulted, recs appreciated - will continue transfusing to keep Hgb > 7 4. Thrombocytopenia - Multifactorial due to DIC - Heme/Onc consulted - peripheral smear reviewed by pathologist: decreased platelets with no clumping - s/p 3u pRBCs, 1u FFP and 3u platelets - DIC heme studies reviewed 5. ADPKD - Prograft at home; currently held - Heme/Onc consulted, recs appreciated - Nephrology consulted, recs appreciated - cont HD per Nephro 6. UTI bactermia 2/2 klebsiella - SUHAIL was negative - cont Rocephin - Abx per ID, recs appreciated 7. PPX - Protonix for GI ppx - SCDs for DVT ppx Further recs per Dr. Knox Case was reviewed and discussed with Dr. Knox
[2018-09-19] MEDS: Insulin Reg-LOW-Coverage SC SCH ×4 (09:27→23:43)
[2018-09-19] MEDS: Albumin Human 25% (12.5 gm/50 ml) IV SCH ×2 (09:40→16:52)
[2018-09-19] MEDS: Lidocaine 5% Patch TD SCH (09:44)
--- NOTE | 2018-09-19 09:56 | CP.PCM.PN ---
Subjective - Date & Time of Evaluation Date of Evaluation: 09/19/18 Time of Evaluation: 07:45 - Subjective Subjective: General Surgery Progress Note for Dr. Al Richards, PGY1 Patient seen and examined at bedside this morning. Patient had two bloody BM overnight that are described as dark brown but denies any BM this morning. Patient is tolerating diet without complaints and states he is dissatisfied with food. Denies any complaints at this time including abdominal pain, nausea, vomiting, diarrhea, constipation, numbness, tingling, dizziness and fevers. S/p HD yesterday. Objective - Vital Signs/Intake and Output Vital Signs (last 24 hours): Temp Pulse Resp BP Pulse Ox 98.5 F 77 18 140/82 95 09/19/18 04:00 09/19/18 05:50 09/19/18 05:50 09/19/18 05:45 09/19/18 05:50 Intake and Output: 09/19/18 09/19/18 06:59 18:59 Intake Total 300 Balance 300 - Medications Medications: Current Medications Acetaminophen (Tylenol 325mg Tab) 650 mg PO Q4H PRN PRN Reason: temp > 99.5F Acetaminophen (Tylenol 325mg Tab) 650 mg PO Q6 PRN PRN Reason: TEMP>=99.5F Acetaminophen (Tylenol 650 Mg Supp) 650 mg RC Q6H PRN PRN Reason: TEMP>=99.5F Albumin Human (Albumin Human 25% (12.5 Gm/50 Ml)) 25 gm IV Q8H [facility] Stop: 09/20/18 01:01 Last Admin: 09/19/18 09:40 Dose: 25 gm Atorvastatin Calcium (Lipitor) 10 mg PO DIN [facility] Last Admin: 09/18/18 18:10 Dose: 10 mg Calcitriol (Rocaltrol) 0.75 mcg PO TTS [facility] Last Admin: 09/18/18 10:11 Dose: 0.75 mcg Cyproheptadine HCl (Periactin) 4 mg PO BID [facility] Last Admin: 09/19/18 09:32 Dose: 4 mg Ezetimibe (Zetia) 10 mg PO DAILY [facility] Last Admin: 09/19/18 09:32 Dose: 10 mg Famotidine (Pepcid) 40 mg PO HS [facility] Last Admin: 09/18/18 21:58 Dose: 40 mg Sodium Chloride (Sodium Chloride 0.9%) 500 mls @ 10 mls/hr IV .Q24H [facility] Last Admin: 09/18/18 18:10 Dose: Not Given Insulin Human Regular (Humulin R Low) 0 units SC ACHS [facility]; Protocol Last Admin: 09/19/18 09:27 Dose: Not Given Lactulose (Enulose) 15 gm PO DAILY [facility] Last Admin: 09/19/18 09:32 Dose: Not Given Levalbuterol HCl (Xopenex) 0.63 mg IH [id number] [facility] Last Admin: 09/19/18 07:47 Dose: 0.63 mg Lidocaine (Lidoderm) 1 ea TD DAILY [facility] Last Admin: 09/19/18 09:44 Dose: 1 ea Metoprolol Tartrate (Lopressor) 25 mg PO Q8 [facility] Last Admin: 09/19/18 05:45 Dose: 25 mg Ondansetron HCl (Zofran Inj) 4 mg IVP Q4H PRN PRN Reason: Nausea/Vomiting Pantoprazole Sodium (Protonix Inj) 40 mg IVP DAILY [facility] Last Admin: 09/19/18 09:33 Dose: 40 mg Prednisone (Prednisone Tab) 5 mg PO BRK [facility] Last Admin: 09/19/18 09:32 Dose: 5 mg Thiamine HCl (Vitamin B1 Tab) 100 mg PO DAILY [facility] Last Admin: 09/19/18 09:32 Dose: 100 mg - Labs Labs: 09/19/18 06:10 09/19/18 06:10 PT 15.0 SECONDS (9.4-12.5) H 09/19/18 06:10 INR 1.33 09/19/18 06:10 APTT 34.6 Seconds (26.9-38.3) 09/19/18 06:10 - Constitutional Appears: No Acute Distress, Cachectic, Chronically Ill - Head Head Exam: atraumatic - Eyes Eye Exam: EOMI - Respiratory Exam Respiratory Exam: Clear to Ausculation Bilateral. absent: Accessory Muscle Use, Respiratory Distress - Cardiovascular Exam Cardiovascular Exam: REGULAR RHYTHM, +S1, +S2 - GI/Abdominal Exam GI & Abdominal Exam: Soft. Nontender. Bowel sounds appreciated in all 4 quadrant s. Pulsatile mass appreciated on right side of abdomen. absent: Guarding, Rigid - Neurological Exam Neurological Exam: CN II-XII Intact, Oriented x3, Alert Additional exam: Moving all extremities spontaneously, no motor/sensory deficits noted - Extremities Exam Extremities Exam: Normal Inspection. absent: Calf Tenderness, Tenderness Additional comments: cachectic lower extremities noted. No tenderness appreciated. DP +2 B/L Assessment and Plan - Assessment and Plan (Free Text) Assessment: This is a 67 year old male with extensive past medical history presenting to the hospital for lower GI bleeding. Lower GI Bleeding - consider 2/2 stercoral ulcerations, chronic constipation Anemia ESRD on HD Infrarenal AAA Thrombocytopenia ADPKD UTI Bactermia 2/2 klebsiella Plan: -high risk patient for AAA repair -no surgical intervention at this time, follow up outpatient with CT surgeon upon discharge -continue with lactulose for constipation/rectal ulcerations -s/p 3 units PRBC, 3 units platelets, 1 unit FFP. Most recently on 09/16/18 -Hg is 9.6 from 10.6. -EGD on 09/16 showed no upper GI source of bleeding -flex sig on 09/16 showed multiple ulcers in rectum suggesting subcortical ulceration. No blood in the sigmoid. Brown stool. -CTAP reviewed - severely aneurysmal abdominal aorta, chronic dissection of infrarenal abdominal aorta, extensive diverticulosis -GI bleeding scan shows no active GI bleeding -CT angio abdomen shows chronic dissection of the abdomenal aorta. Celiac SMA are patent. 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 No evidence of aortic fistula -hemodialysis duplex US 09/17 shows no sonographic evidence of subcutaneous abscess, patent left upper extremity AVF with focal aneurysmal dilation -further recommendations per Dr. Melendez
[2018-09-19 09:58] LABS: PLATELET COUNT MANUAL 73 K/mm3 (120-450)
--- NOTE | 2018-09-19 11:27 | CP.PCM.PN ---
<Gingre Daniel - Last Filed: 09/19/18 16:28> Subjective - Date & Time of Evaluation Date of Evaluation: 09/19/18 Time of Evaluation: 11:24 - Subjective Subjective: Ginger Daniel, PGY2, GI Progress Note for Dr Cordova: Patient seen and examined at bedside. Patient had 4 BMs within past 24 hrs: first 2 ( maroon colored) and last 2 BMs today were soft and brown. Patient denies abdominal pain, nausea, vomiting, fevers. Tolerating PO diet well, reports good appetite. Objective - Vital Signs/Intake and Output Vital Signs (last 24 hours): Temp Pulse Resp BP Pulse Ox 99 F 72 18 153/87 H 95 09/19/18 07:30 09/19/18 10:25 09/19/18 10:25 09/19/18 10:00 09/19/18 05:50 Intake and Output: 09/19/18 09/19/18 06:59 18:59 Intake Total 300 Balance 300 - Medications Medications: Current Medications Acetaminophen (Tylenol 325mg Tab) 650 mg PO Q4H PRN PRN Reason: temp > 99.5F Acetaminophen (Tylenol 325mg Tab) 650 mg PO Q6 PRN PRN Reason: TEMP>=99.5F Acetaminophen (Tylenol 650 Mg Supp) 650 mg RC Q6H PRN PRN Reason: TEMP>=99.5F Albumin Human (Albumin Human 25% (12.5 Gm/50 Ml)) 25 gm IV Q8H [facility] Stop: 09/20/18 01:01 Last Admin: 09/19/18 09:40 Dose: 25 gm Atorvastatin Calcium (Lipitor) 10 mg PO DIN [facility] Last Admin: 09/18/18 18:10 Dose: 10 mg Calcitriol (Rocaltrol) 0.75 mcg PO TTS [facility] Last Admin: 09/18/18 10:11 Dose: 0.75 mcg Cyproheptadine HCl (Periactin) 4 mg PO BID [facility] Last Admin: 09/19/18 09:32 Dose: 4 mg Ezetimibe (Zetia) 10 mg PO DAILY [facility] Last Admin: 09/19/18 09:32 Dose: 10 mg Famotidine (Pepcid) 40 mg PO HS [facility] Last Admin: 09/18/18 21:58 Dose: 40 mg Sodium Chloride (Sodium Chloride 0.9%) 500 mls @ 10 mls/hr IV .Q24H [facility] Last Admin: 09/18/18 18:10 Dose: Not Given Insulin Human Regular (Humulin R Low) 0 units SC ACHS [facility]; Protocol Last Admin: 09/19/18 09:27 Dose: Not Given Lactulose (Enulose) 15 gm PO DAILY [facility] Last Admin: 09/19/18 09:32 Dose: Not Given Levalbuterol HCl (Xopenex) 0.63 mg IH [id number] [facility] Last Admin: 09/19/18 07:47 Dose: 0.63 mg Lidocaine (Lidoderm) 1 ea TD DAILY [facility] Last Admin: 09/19/18 09:44 Dose: 1 ea Metoprolol Tartrate (Lopressor) 25 mg PO Q8 [facility] Last Admin: 09/19/18 05:45 Dose: 25 mg Ondansetron HCl (Zofran Inj) 4 mg IVP Q4H PRN PRN Reason: Nausea/Vomiting Pantoprazole Sodium (Protonix Inj) 40 mg IVP DAILY [facility] Last Admin: 09/19/18 09:33 Dose: 40 mg Prednisone (Prednisone Tab) 5 mg PO BRK [facility] Last Admin: 09/19/18 09:32 Dose: 5 mg Thiamine HCl (Vitamin B1 Tab) 100 mg PO DAILY [facility] Last Admin: 09/19/18 09:32 Dose: 100 mg - Labs Labs: 09/19/18 06:10 09/19/18 06:10 PT 15.0 SECONDS (9.4-12.5) H 09/19/18 06:10 INR 1.33 09/19/18 06:10 APTT 34.6 Seconds (26.9-38.3) 09/19/18 06:10 - Additional Findings Additional findings: - Constitutional Appears: Non-toxic, Cachectic, Chronically Ill - Head Exam Head Exam: ATRAUMATIC, NORMOCEPHALIC - Eye Exam Eye Exam: EOMI, PERRL. absent: Conjunctival injection, Nystagmus, Scleral icterus Pupil Exam: NORMAL ACCOMODATION, PERRL. absent: Irregular, Miosis, Unequal - ENT Exam ENT Exam: Mucous Membranes Moist - Neck Exam Neck exam: Positive for: Full Rom - Respiratory Exam Respiratory Exam: Clear to Auscultation Bilateral, NORMAL BREATHING PATTERN. absent: Accessory Muscle Use, Rhonchi, Wheezes - Cardiovascular Exam Cardiovascular Exam: RRR, +S1, +S2, Systolic Murmur - GI/Abdominal Exam GI & Abdominal Exam: Normal Bowel Sounds, Soft. absent: Distended, Firm, Rebound, Rigid - Extremities Exam Extremities exam: Positive for: normal inspection. Negative for: calf tenderness, pedal edema - Back Exam Back exam: NORMAL INSPECTION - Neurological Exam Neurological exam: Alert, Oriented x3 - Psychiatric Exam Psychiatric exam: Normal Affect, Normal Mood - Skin Skin Exam: Normal Color, Warm Assessment and Plan - Assessment and Plan (Free Text) Assessment: # GI bleed, 2/2 stercoral ulcerations 2/2 chronic constipation # Microcytic anemia # Thrombocytopenia # Klebsiella Bacteremia 2/2 UTI # Polycystic Kidney disease s/p right renal allograft # ESRD on HD MWF # HTN # Severe Aortic Stenosis with hx of prior AV replacement (not candidate for TAVR as of 2017) # unrepaired infrarenal AAA - CT abd pelvis w/o contrast: extensive diverticulosis. abdominal/pelvic ascites. No free air. Heterogenous appearance of liver with innumerable hypodensities, possibly tiny cysts or hemangiomas. Ill denied hypodense region within hepatic dome spanning 16 x 10 mm. - bleeding scan negative - angio of abd with contrast negative for any aortic fistula - s/p 1 unit FFP, platelets, 3 units prbcs - Hgb remains stable. Will continue to monitor closely. - EGD 09/16 showed no bleeding source. Flex sigmoidoscopy showed multiple ulcers in rectum, likely stercoral ulcerations. The endoscope was advanced all the way up to 30 cm, no blood was noticed in the sigmoid. Brown stool noticed. - Continue with bowel regimen. Prevent constipation. - continue with renal, low carb consistent soft diet - further recs per Dr Cordova. Case seen and discussed with Dr Cordova. <Mac Cordova V - Last Filed: 09/28/18 21:26> Objective - Vital Signs/Intake and Output Vital Signs (last 24 hours): Temp Pulse Resp BP Pulse Ox 98.4 F 91 H 30 H 132/81 52 L 09/19/18 14:00 09/19/18 17:40 09/19/18 17:40 09/19/18 17:00 09/19/18 17:40 Intake and Output: 09/19/18 09/20/18 18:59 06:59 Intake Total 450 Balance 450 - Medications Medications: Current Medications Acetaminophen (Tylenol 325mg Tab) 650 mg PO Q4H PRN PRN Reason: temp > 99.5F Acetaminophen (Tylenol 325mg Tab) 650 mg PO Q6 PRN PRN Reason: TEMP>=99.5F Acetaminophen (Tylenol 650 Mg Supp) 650 mg RC Q6H PRN PRN Reason: TEMP>=99.5F Albumin Human (Albumin Human 25% (12.5 Gm/50 Ml)) 25 gm IV Q8H [facility] Stop: 09/20/18 01:01 Last Admin: 09/19/18 16:52 Dose: 25 gm Atorvastatin Calcium (Lipitor) 10 mg PO DIN [facility] Last Admin: 09/19/18 17:06 Dose: 10 mg Calcitriol (Rocaltrol) 0.75 mcg PO TTS [facility] Last Admin: 09/18/18 10:11 Dose: 0.75 mcg Cyproheptadine HCl (Periactin) 4 mg PO BID [facility] Last Admin: 09/19/18 17:06 Dose: 4 mg Ezetimibe (Zetia) 10 mg PO DAILY [facility] Last Admin: 09/19/18 09:32 Dose: 10 mg Famotidine (Pepcid) 40 mg PO HS [facility] Last Admin: 09/18/18 21:58 Dose: 40 mg Sodium Chloride (Sodium Chloride 0.9%) 500 mls @ 10 mls/hr IV .Q24H [facility] Last Admin: 09/19/18 17:07 Dose: Not Given Insulin Human Regular (Humulin R Low) 0 units SC ACHS [facility]; Protocol Last Admin: 09/19/18 17:06 Dose: 3 u Lactulose (Enulose) 15 gm PO DAILY [facility] Last Admin: 09/19/18 09:32 Dose: Not Given Levalbuterol HCl (Xopenex) 0.63 mg IH [id number] [facility] Last Admin: 09/19/18 20:19 Dose: 0.63 mg Lidocaine (Lidoderm) 1 ea TD DAILY [facility] Last Admin: 09/19/18 09:44 Dose: 1 ea Metoprolol Tartrate (Lopressor) 25 mg PO Q8 [facility] Last Admin: 09/19/18 15:18 Dose: 25 mg Ondansetron HCl (Zofran Inj) 4 mg IVP Q4H PRN PRN Reason: Nausea/Vomiting Pantoprazole Sodium (Protonix Inj) 40 mg IVP DAILY [facility] Last Admin: 09/19/18 09:33 Dose: 40 mg Prednisone (Prednisone Tab) 5 mg PO BRK [facility] Last Admin: 09/19/18 09:32 Dose: 5 mg Thiamine HCl (Vitamin B1 Tab) 100 mg PO DAILY [facility] Last Admin: 09/19/18 09:32 Dose: 100 mg - Labs Labs: 09/19/18 06:10 09/19/18 06:10 PT 15.0 SECONDS (9.4-12.5) H 09/19/18 06:10 INR 1.33 09/19/18 06:10 APTT 34.6 Seconds (26.9-38.3) 09/19/18 06:10 Attending/Attestation - Attestation I have personally seen and examined this patient.: Yes I have fully participated in the care of the patient.: Yes I have reviewed all pertinent clinical information, including history, physical exam and plan: Yes Notes (Text): Hemoglobin remained stable. Patient need to be on a laxative regimen to avoid a fecal impaction. Patient did have significant amount of ulcerations in the rectum. This could be most likely the source of the bleeding. Patient has a large critical abdominal aortic aneurysm the risk is too high to have any further colonoscopy evaluation. The scope could not be advanced beyond a 30 cm in view of these poor preparation and the patient had no blood higherup. The bleeding was noticed only in the rectal area. 09/19/18 23:30 09/28/18 21:24
--- NOTE | 2018-09-19 14:21 | PN ---
DATE: 09/19/2018 SUBJECTIVE: The patient is in bed, in no acute distress, and nontoxic. PHYSICAL EXAMINATION: VITAL SIGNS: Temperature is 98, blood pressure 132/80, and respiratory rate of 18. HEENT: Unremarkable. NECK: Supple. LUNGS: Decreased breath sounds. HEART: Normal S1 and S2. ABDOMEN: Soft and nontender. LABORATORY DATA: Reveals a white count to be 8.7, hemoglobin of 9. Microbiology is noted. REVIEW OF ORDERS: Reveals the patient is off of antibiotics. ASSESSMENT AND PLAN: A 67-year-old male who was seen earlier this morning, who was admitted with Klebsiella bacteremia on last admission, Klebsiella urine as the source of the bacteremia completed ceftriaxone therapy, admitted with intensive care unit. Now with gastrointestinal bleeding and the patient with a renal transplant in 2006, diabetes, aortic stenosis, aortic valve replacement, and large unrepaired abdominal aortic aneurysm. Currently off of antibiotics. Afebrile. The patient is at risk for developing nosocomial infections and we will follow with you. Bishop Squires MD
--- NOTE | 2018-09-19 14:29 | PN ---
DATE: 09/19/2018 SUBJECTIVE: The patient is seen in ICU bed 7. The patient is comfortable, awake, responsive. Overnight nurse's notes were reviewed. The patient had some loose soft bowel movement. No bleeding was documented. Fourteen-system review was done. Pertinent positive and negative dictated above. PHYSICAL EXAMINATION: VITAL SIGNS: T-max 98.8, pulse 77 to 82, blood pressure 140/82, respirations 18, O2 sat 95%. HEENT: Head examination normocephalic, atraumatic. HEENT examination shows pinkish pale conjunctivae. Anicteric sclerae. Positive facial muscle wasting. Positive cachexia. Questionable soft carotid bruit. CHEST: Examination shows median sternotomy surgical scar. LUNGS: Examination shows questionable decreased breath sound at the bases, left more than the right, occasional rhonchi, right lung field. CARDIOVASCULAR: Shows S1, S2, regular rhythm. Positive systolic murmur, left sternal border, right second intercostal space, left second intercostal space. ABDOMEN: Soft, positive bowel sounds, positive midabdominal pulsation noted. GENITALIA: Male, positive right groin triple lumen catheter noted. EXTREMITY: Lower extremity shows no pitting edema. Upper extremity shows positive left upper extremity AV fistula. MUSCULOSKELETAL: Examination shows decreased muscle mass and cachexia. NEUROLOGIC: The patient is alert, awake, responsive, is able to move upper and lower extremity without assistance. Gait examination is not tested. DIAGNOSTICS: 09/19/2018, WBC 8.7, hemoglobin and hematocrit 9.6 and 32, platelet 66,000, granulocyte 78% segs, PT 15, INR 1.3, PTT 34, fibrinogen 91. Sodium 139, potassium 3, chloride 107, CO2 of 27, BUN 24, creatinine 1.7, glucose 110, calcium 7.4, phosphorus 2.8, magnesium 1.8, total protein 4.8, albumin 1.9. IMPRESSION: 1. Status post hypotensive hypovolemic hemorrhagic shock. 2. Acute blood loss anemia, secondary to lower gastrointestinal bleeding with acute blood loss anemia. 3. Status post packed red blood cell transfusion x3, status post fresh frozen plasma transfusion x1, status post platelet transfusion x3. 4. Persistent refractory recurrent anemia. 5. Thrombocytopenia. 6. Granulocytosis. 7. Leukocytosis. 8. Mild coagulopathy. 9. Disseminated intravascular coagulation. 10. Hypofibrinogenemia. 11. End-stage renal disease, hemodialysis dependent three times a week via the left upper extremity arteriovenous fistula. 12. Hypokalemia. 13. Zjgujvvo-kw-gjeoii protein malnutrition and hypoalbuminemia. 14. Left sphenoid opacification. 15. Toxic metabolic encephalopathy and delirium. 16. Bilateral pleural effusions consolidation with right middle lobe, right lower lobe pneumonia and infiltrate. 17. Possible hepatic cyst and hepatic hemangioma. 18. Transplanted kidney hydronephrosis. 19. Polycystic kidney disease. 20. Abdominopelvic ascites. 21. Chronic infrarenal abdominal aortic aneurysm dissection. 22. Degenerative joint disease of the spine. 23. Renal osteodystrophy. 24. Cachexia. 25. Failure to thrive. 26. Status post aortic valve replacement. 27. Transfusion-dependent and transfusion-requiring anemia. 28. Rectal stercoral ulceration. 29. Gastritis. 30. Duodenal diverticulum. 31. Insulin-requiring diabetes mellitus with hyperglycemia. 32. Uncontrolled insulin-requiring diabetes mellitus with elevated hemoglobin A1c. 33. Deconditioning. 34. Gait dysfunction. PLAN: At this time, the patient has been ordered to be transferred out of the ICU to telemetry in front of nursing station. The patient has been ordered serial labs. The patient will be continued on all the therapeutic intervention as per the MAR of today, which was reviewed. The patient will be continued on pharmacological and nonpharmacological GI and DVT prophylaxis. The patient will be continued on proton pump inhibitor. The patient will be continued on dialysis three times a week as per Nephrology. CURRENT CONSULTATION: Cardiology, Infectious Disease, Neurology, Nephrology, Gastroenterology. PROGNOSIS: Guarded to poor. Time spent in the entire management 35 minutes and more. Dictated and electronically signed, not read. Mart Knox MD
--- NOTE | 2018-09-19 16:46 | PN ---
DATE: 09/19/2018 CARDIOLOGY FOLLOWUP SUBJECTIVE: The patient is without new complaints. PHYSICAL EXAMINATION VITAL SIGNS: Blood pressure is 153/87, heart rates in the 70s. NECK: Negative JVD. LUNGS: Without rales. HEART: S1, S2. EXTREMITIES: Without edema. LABORATORY MYA: Hemoglobin is 9.6. BUN and creatinine are 24 and 1.7. IMPRESSION 1. Recurrent gastrointestinal bleed. 2. Anemia. 3. Renal insufficiency. 4. History of renal transplant which has failed. 5. Aortic valve sclerosis. 6. History of abdominal aortic aneurysm. 7. Diabetes mellitus. PLAN: Given these findings, the patient can be transferred to Med/Surg floor. We will follow her hemoglobin in the hospital. Carlos Shane MD
[2018-09-19] MEDS: Sodium Chloride 0.9% 500 ML IV SCH (17:07)
--- NOTE | 2018-09-19 20:13 | CP.PCM.PN ---
Subjective - Date & Time of Evaluation Date of Evaluation: 09/19/18 Time of Evaluation: 12:00 - Subjective Subjective: Feels hungry. Objective - Vital Signs/Intake and Output Vital Signs (last 24 hours): Temp Pulse Resp BP Pulse Ox 98.4 F 91 H 30 H 132/81 52 L 09/19/18 14:00 09/19/18 17:40 09/19/18 17:40 09/19/18 17:00 09/19/18 17:40 Intake and Output: 09/19/18 09/20/18 18:59 06:59 Intake Total 450 Balance 450 - Medications Medications: Current Medications Acetaminophen (Tylenol 325mg Tab) 650 mg PO Q4H PRN PRN Reason: temp > 99.5F Acetaminophen (Tylenol 325mg Tab) 650 mg PO Q6 PRN PRN Reason: TEMP>=99.5F Acetaminophen (Tylenol 650 Mg Supp) 650 mg RC Q6H PRN PRN Reason: TEMP>=99.5F Albumin Human (Albumin Human 25% (12.5 Gm/50 Ml)) 25 gm IV Q8H [facility] Stop: 09/20/18 01:01 Last Admin: 09/19/18 16:52 Dose: 25 gm Atorvastatin Calcium (Lipitor) 10 mg PO DIN [facility] Last Admin: 09/19/18 17:06 Dose: 10 mg Calcitriol (Rocaltrol) 0.75 mcg PO TTS [facility] Last Admin: 09/18/18 10:11 Dose: 0.75 mcg Cyproheptadine HCl (Periactin) 4 mg PO BID [facility] Last Admin: 09/19/18 17:06 Dose: 4 mg Ezetimibe (Zetia) 10 mg PO DAILY [facility] Last Admin: 09/19/18 09:32 Dose: 10 mg Famotidine (Pepcid) 40 mg PO HS [facility] Last Admin: 09/18/18 21:58 Dose: 40 mg Sodium Chloride (Sodium Chloride 0.9%) 500 mls @ 10 mls/hr IV .Q24H [facility] Last Admin: 09/19/18 17:07 Dose: Not Given Insulin Human Regular (Humulin R Low) 0 units SC ACHS [facility]; Protocol Last Admin: 09/19/18 17:06 Dose: 3 u Lactulose (Enulose) 15 gm PO DAILY [facility] Last Admin: 09/19/18 09:32 Dose: Not Given Levalbuterol HCl (Xopenex) 0.63 mg IH [id number] [facility] Last Admin: 09/19/18 14:18 Dose: 0.63 mg Lidocaine (Lidoderm) 1 ea TD DAILY [facility] Last Admin: 09/19/18 09:44 Dose: 1 ea Metoprolol Tartrate (Lopressor) 25 mg PO Q8 [facility] Last Admin: 09/19/18 15:18 Dose: 25 mg Ondansetron HCl (Zofran Inj) 4 mg IVP Q4H PRN PRN Reason: Nausea/Vomiting Pantoprazole Sodium (Protonix Inj) 40 mg IVP DAILY [facility] Last Admin: 09/19/18 09:33 Dose: 40 mg Prednisone (Prednisone Tab) 5 mg PO BRK [facility] Last Admin: 09/19/18 09:32 Dose: 5 mg Thiamine HCl (Vitamin B1 Tab) 100 mg PO DAILY [facility] Last Admin: 09/19/18 09:32 Dose: 100 mg - Labs Labs: 09/19/18 06:10 09/19/18 06:10 PT 15.0 SECONDS (9.4-12.5) H 09/19/18 06:10 INR 1.33 09/19/18 06:10 APTT 34.6 Seconds (26.9-38.3) 09/19/18 06:10 - Constitutional Appears: Cachectic - Head Exam Head Exam: ATRAUMATIC - ENT Exam ENT Exam: Mucous Membranes Dry - Respiratory Exam Respiratory Exam: NORMAL BREATHING PATTERN - Cardiovascular Exam Cardiovascular Exam: +S1, +S2 - GI/Abdominal Exam GI & Abdominal Exam: Normal Bowel Sounds Assessment and Plan (1) DIC (disseminated intravascular coagulation) Assessment & Plan: fibrinogen and platelets downtrending cont. treatment of acute illness cryopercipitate if fibrinogen < 50 Status: Acute (2) Thrombocytopenia Assessment & Plan: secondary to DIC Status: Acute (3) Anemia Assessment & Plan: GI blood loss chronic disease, DIC anemia of CKD on MARK transfusion support PRN Status: Chronic (4) Coagulopathy Assessment & Plan: DIC nutritional component Status: Acute
--- NOTE | 2018-09-19 23:39 | CP.PCM.PN ---
Subjective - Date & Time of Evaluation Date of Evaluation: 09/19/18 Time of Evaluation: 10:30 - Subjective Subjective: Patient reports tolerating diet well; no shortness of breath; BM this morning brown; not urinating much; Objective - Vital Signs/Intake and Output Vital Signs (last 24 hours): Temp Pulse Resp BP Pulse Ox 98.4 F 91 H 30 H 132/81 52 L 09/19/18 14:00 09/19/18 17:40 09/19/18 17:40 09/19/18 17:00 09/19/18 17:40 Intake and Output: 09/19/18 09/20/18 18:59 06:59 Intake Total 450 Balance 450 - Medications Medications: Current Medications Acetaminophen (Tylenol 325mg Tab) 650 mg PO Q4H PRN PRN Reason: temp > 99.5F Acetaminophen (Tylenol 325mg Tab) 650 mg PO Q6 PRN PRN Reason: TEMP>=99.5F Acetaminophen (Tylenol 650 Mg Supp) 650 mg RC Q6H PRN PRN Reason: TEMP>=99.5F Albumin Human (Albumin Human 25% (12.5 Gm/50 Ml)) 25 gm IV Q8H [facility] Stop: 09/20/18 01:01 Last Admin: 09/19/18 16:52 Dose: 25 gm Atorvastatin Calcium (Lipitor) 10 mg PO DIN [facility] Last Admin: 09/19/18 17:06 Dose: 10 mg Calcitriol (Rocaltrol) 0.75 mcg PO TTS [facility] Last Admin: 09/18/18 10:11 Dose: 0.75 mcg Cyproheptadine HCl (Periactin) 4 mg PO BID [facility] Last Admin: 09/19/18 17:06 Dose: 4 mg Ezetimibe (Zetia) 10 mg PO DAILY [facility] Last Admin: 09/19/18 09:32 Dose: 10 mg Famotidine (Pepcid) 40 mg PO HS [facility] Last Admin: 09/18/18 21:58 Dose: 40 mg Sodium Chloride (Sodium Chloride 0.9%) 500 mls @ 10 mls/hr IV .Q24H [facility] Last Admin: 09/19/18 17:07 Dose: Not Given Insulin Human Regular (Humulin R Low) 0 units SC ACHS [facility]; Protocol Last Admin: 09/19/18 17:06 Dose: 3 u Lactulose (Enulose) 15 gm PO DAILY [facility] Last Admin: 09/19/18 09:32 Dose: Not Given Levalbuterol HCl (Xopenex) 0.63 mg IH [id number] [facility] Last Admin: 09/19/18 20:19 Dose: 0.63 mg Lidocaine (Lidoderm) 1 ea TD DAILY [facility] Last Admin: 09/19/18 09:44 Dose: 1 ea Metoprolol Tartrate (Lopressor) 25 mg PO Q8 [facility] Last Admin: 09/19/18 15:18 Dose: 25 mg Ondansetron HCl (Zofran Inj) 4 mg IVP Q4H PRN PRN Reason: Nausea/Vomiting Pantoprazole Sodium (Protonix Inj) 40 mg IVP DAILY [facility] Last Admin: 09/19/18 09:33 Dose: 40 mg Prednisone (Prednisone Tab) 5 mg PO BRK [facility] Last Admin: 09/19/18 09:32 Dose: 5 mg Thiamine HCl (Vitamin B1 Tab) 100 mg PO DAILY [facility] Last Admin: 09/19/18 09:32 Dose: 100 mg - Labs Labs: 09/19/18 06:10 09/19/18 06:10 PT 15.0 SECONDS (9.4-12.5) H 09/19/18 06:10 INR 1.33 09/19/18 06:10 APTT 34.6 Seconds (26.9-38.3) 09/19/18 06:10 - Constitutional Appears: Non-toxic, No Acute Distress - Eye Exam Eye Exam: Normal appearance - Respiratory Exam Respiratory Exam: absent: Respiratory Distress Additional comments: Decreased breath sounds at R base; - Cardiovascular Exam Cardiovascular Exam: RRR. absent: Gallop, Rubs - GI/Abdominal Exam GI & Abdominal Exam: Soft, Pulsatile Mass. absent: Distended - Extremities Exam Additional comments: minimal leg edema; - Neurological Exam Neurological Exam: Alert, Awake - Psychiatric Exam Psychiatric exam: Normal Mood. absent: Agitated - Skin Skin Exam: Warm. absent: Cyanosis Assessment and Plan (1) ESRD (end stage renal disease) Assessment & Plan: Hypokalemia noted in the setting of being of being on lactulose (only 1 dose given yesterday); otherwise, stable volume status though pleural effusion may be increasing on R in the setting of severe hypoalbuminemia; -Next HD for tomorrow, will again aim for 1L net UF; will dialyze on higher K bath (40 meq given PO today); Status: Chronic (2) Hypertensive CKD, ESRD on dialysis Assessment & Plan: BP better controlled on metoprolol, continue same; Status: Acute (3) GI bleed Assessment & Plan: Hgb again trickling downward slowly; will monitor; giving aranesp 100 mcg on HD weekly; Status: Acute (4) Immunosuppression Assessment & Plan: continue prednisone 5 mg daily; Status: Chronic (5) Chronic kidney disease-mineral and bone disorder Assessment & Plan: Still no need for phos binders; continue calcitriol 0.75 three times per week; Status: Chronic
[2018-09-20] MEDS: Levalbuterol 0.63 MG/3 ML Inhal Soln UD IH SCH ×4 (01:22→21:00)
[2018-09-20] MEDS: Albumin Human 25% (12.5 gm/50 ml) IV SCH (06:40)
[2018-09-20 07:30] LABS: BASO # 0.01 K/mm3 (0.0-2.0); BASO % 0.1 % (0.0-3.0); EOS % 0.4 % (1.5-5.0); HEMOGLOBIN 9.7 g/dL (14.0-18.0); LYMPH # 0.9 (1.2-3.4); LYMPH % 9.2 % (22.0-35.0); MEAN CORPUSCULAR HEMOGLOBIN 24.3 pg (25.0-35.0); MEAN CORPUSCULAR HGB CONC 29.7 g/dl (31.0-37.0); MONO # 0.6 (0.1-0.6); MONO % 6.1 % (1.0-6.0); PLATELET COUNT 77 10^3/uL (120.0-450.0); RBC 3.99 10^6/uL (3.5-6.1); RED CELL DISTRIBUTION WIDTH 19.9 % (11.5-14.5); WHITE BLOOD COUNT 10.1 10^3/uL (4.5-11.0)
[2018-09-20] MEDS: Insulin Reg-LOW-Coverage SC SCH ×4 (07:50→23:07)
[2018-09-20 07:55] LABS: INR 1.25; PARTIAL THROMBOPLASTIN TIME 35.3 Seconds (26.9-38.3); PROTHROMBIN TIME 14.1 SECONDS (9.4-12.5)
[2018-09-20 08:53] LABS: ALB/GLOB RATIO 0.8 (1.1-1.8); ALBUMIN 2.3 g/dL (3.0-4.8); BILIRUBIN,DIRECT 0.2 mg/dL (0.0-0.4); CALCIUM 7.9 mg/dL (8.4-10.5)
[2018-09-20] MEDS ORDERED: Darbepoetin Alfa 100 mcg/ml Inj IVP ONE (09:00)
--- NOTE | 2018-09-20 09:44 | CP.PCM.PN ---
Subjective - Date & Time of Evaluation Date of Evaluation: 09/20/18 Time of Evaluation: 08:00 - Subjective Subjective: Carlo Goodwin SUBJECTIVE: The patient was seen and examined at bedside on the telemetry gutiérrez. No acute events overnight. He remains afebrile and hemodynamically stable. He reports continued loose BM's albeit improving and otherwise offers no complaints. OBJECTIVE: VS: T 98.3, P 81, BP 144/98, RR 18, O2 96% RA General: NAD HEENT: PERRL, EOMI, no scleral icterus, (+) conjunctival pallor Neck: No JVD Lungs: Decreased BS to the bases Cardiovascular: RRR, Grade III/ CRISTINE to RUSB Abdomen: NABS, soft, NT, ND Ext: trace pedal edema b/l Neurologic: AAO x 2 (person, place), no focal motor deficits. LABORATORY DATA: Morning labs are pending. ASSESSMENT: The patient is a 67 year old man with multiple medical comorbidities who was initially admitted for management of UTI with sepsis and whose TCU course was complicated by massive lower GI bleed with hemorrhagic shock necessitating ICU admission who is now s/p transfer out of the ICU and demonstrating gradual clinical improvement. PLAN: 1. Hemorrhagic shock secondary to lower GI bleed, resolved. The patient is demonstrating slow clinical improvement and remains hemodynamically stable off vasopressor support. Input from Dr. Cordova noted. Continue to monitor H/H and transfuse as needed. 2. Lower GI bleed. Input from Dr. Cordova noted and findings of EGD and flex sig reviewed. Continue with care as per GI. 3. HTN. BP controlled. Continue with current medications. 4. ESRD on HD (M/W/F). Continue with HD as per Nephrology team. 5. ADPKD s/p renal transplant. 6. Severe . 7. T2DM. Continue with ISS and FS monitoring. 8. AAA. 9. Prophylaxis. Continue Protonix for GI prophylaxis and SCDs for DVT prophylaxis. Objective - Vital Signs/Intake and Output Vital Signs (last 24 hours): Temp Pulse Resp BP Pulse Ox 98.3 F 81 18 144/98 H 96 09/20/18 06:00 09/20/18 06:02 09/20/18 06:00 09/20/18 06:02 09/20/18 06:00 Intake and Output: 09/20/18 09/20/18 06:59 18:59 Intake Total 1120 Output Total 300 Balance 820 - Medications Medications: Current Medications Acetaminophen (Tylenol 325mg Tab) 650 mg PO Q4H PRN PRN Reason: temp > 99.5F Acetaminophen (Tylenol 325mg Tab) 650 mg PO Q6 PRN PRN Reason: TEMP>=99.5F Acetaminophen (Tylenol 650 Mg Supp) 650 mg RC Q6H PRN PRN Reason: TEMP>=99.5F Atorvastatin Calcium (Lipitor) 10 mg PO DIN [facility] Last Admin: 09/19/18 17:06 Dose: 10 mg Calcitriol (Rocaltrol) 0.75 mcg PO TTS [facility] Last Admin: 09/18/18 10:11 Dose: 0.75 mcg Cyproheptadine HCl (Periactin) 4 mg PO BID [facility] Last Admin: 09/19/18 17:06 Dose: 4 mg Ezetimibe (Zetia) 10 mg PO DAILY [facility] Last Admin: 09/19/18 09:32 Dose: 10 mg Famotidine (Pepcid) 40 mg PO HS [facility] Last Admin: 09/19/18 23:39 Dose: 40 mg Sodium Chloride (Sodium Chloride 0.9%) 500 mls @ 10 mls/hr IV .Q24H [facility] Last Admin: 09/19/18 17:07 Dose: Not Given Insulin Human Regular (Humulin R Low) 0 units SC ACHS [facility]; Protocol Last Admin: 09/20/18 07:50 Dose: Not Given Lactulose (Enulose) 15 gm PO DAILY [facility] Last Admin: 09/19/18 09:32 Dose: Not Given Levalbuterol HCl (Xopenex) 0.63 mg IH [id number] [facility] Last Admin: 09/20/18 01:22 Dose: Not Given Lidocaine (Lidoderm) 1 ea TD DAILY [facility] Last Admin: 09/19/18 09:44 Dose: 1 ea Metoprolol Tartrate (Lopressor) 25 mg PO Q8 [facility] Last Admin: 09/20/18 06:02 Dose: 25 mg Ondansetron HCl (Zofran Inj) 4 mg IVP Q4H PRN PRN Reason: Nausea/Vomiting Pantoprazole Sodium (Protonix Inj) 40 mg IVP DAILY [facility] Last Admin: 09/19/18 09:33 Dose: 40 mg Prednisone (Prednisone Tab) 5 mg PO BRK [facility] Last Admin: 09/19/18 09:32 Dose: 5 mg Thiamine HCl (Vitamin B1 Tab) 100 mg PO DAILY [facility] Last Admin: 09/19/18 09:32 Dose: 100 mg - Labs Labs: 09/20/18 07:00 09/20/18 07:00 PT 14.1 SECONDS (9.4-12.5) H 09/20/18 07:00 INR 1.25 09/20/18 07:00 APTT 35.3 Seconds (26.9-38.3) 09/20/18 07:00
[2018-09-20 10:16] LABS: PLATELET COUNT MANUAL 90 K/mm3 (120-450)
[2018-09-20] MEDS: Lidocaine 5% Patch TD SCH (12:56)
--- NOTE | 2018-09-20 12:59 | PN ---
DATE: 09/20/2018 SUBJECTIVE: The patient is in bed in no acute distress, nontoxic, was seen earlier today. PHYSICAL EXAMINATION: VITAL SIGNS: Temperature is 98, blood pressure is 140/90, respiratory rate 16. HEENT: Unremarkable. NECK: Supple. LUNGS: Have decreased breath sounds. HEART: Normal S1 and S2. ABDOMEN: Soft. LABORATORY DATA: Reveals a white count of 10,000, hemoglobin of 9. Chemistries reveals a creatinine of 2.7. Microbiology reveals the patient's nares are negative. Blood cultures are negative. MEDICATIONS: Review of orders reveals the patient to be on prednisone. The patient is at this time off of antibiotics. ASSESSMENT AND PLAN: This is a 67-year-old male who was seen earlier today, he had Klebsiella bacteremia on earlier admission with Klebsiella in urine, has completed antibiotic therapy on this admission, admitted with gastrointestinal bleeding in a patient who had a renal transplant in 2006, diabetic, aortic stenosis, aortic valve replacement, and a large unrepaired abdominal aortic aneurysm. Currently, the patient is at risk for developing nosocomial infections in a patient who has recurrent gastrointestinal bleeding, anemia, renal insufficiency and off of antibiotics at this point. We will follow with you. Bishop Squires MD
--- NOTE | 2018-09-20 13:52 | CP.PCM.PN ---
<Porsche Musa - Last Filed: 09/20/18 13:52> Subjective - Date & Time of Evaluation Date of Evaluation: 09/20/18 Time of Evaluation: 07:40 - Subjective Subjective: PGY5 GI Follow-up Pt seen and examined bedside Denies any rectal bleeding denies any constipation daily BM soft ROS: 12 point ROS conducted, neg other than above Objective - Vital Signs/Intake and Output Vital Signs (last 24 hours): Temp Pulse Resp BP Pulse Ox 98.3 F 81 18 144/98 H 96 09/20/18 06:00 09/20/18 06:02 09/20/18 06:00 09/20/18 06:02 09/20/18 06:00 Intake and Output: 09/20/18 09/20/18 06:59 18:59 Intake Total 1120 Output Total 300 Balance 820 - Medications Medications: Current Medications Acetaminophen (Tylenol 325mg Tab) 650 mg PO Q4H PRN PRN Reason: temp > 99.5F Acetaminophen (Tylenol 325mg Tab) 650 mg PO Q6 PRN PRN Reason: TEMP>=99.5F Acetaminophen (Tylenol 650 Mg Supp) 650 mg RC Q6H PRN PRN Reason: TEMP>=99.5F Atorvastatin Calcium (Lipitor) 10 mg PO DIN [facility] Last Admin: 09/19/18 17:06 Dose: 10 mg Calcitriol (Rocaltrol) 0.75 mcg PO TTS [facility] Last Admin: 09/20/18 12:54 Dose: 0.75 mcg Cyproheptadine HCl (Periactin) 4 mg PO BID [facility] Last Admin: 09/20/18 12:57 Dose: 4 mg Ezetimibe (Zetia) 10 mg PO DAILY [facility] Last Admin: 09/20/18 12:55 Dose: 10 mg Famotidine (Pepcid) 40 mg PO HS [facility] Last Admin: 09/19/18 23:39 Dose: 40 mg Sodium Chloride (Sodium Chloride 0.9%) 500 mls @ 10 mls/hr IV .Q24H [facility] Last Admin: 09/19/18 17:07 Dose: Not Given Insulin Human Regular (Humulin R Low) 0 units SC ACHS [facility]; Protocol Last Admin: 09/20/18 07:50 Dose: Not Given Lactulose (Enulose) 15 gm PO DAILY [facility] Last Admin: 09/20/18 12:55 Dose: Not Given Levalbuterol HCl (Xopenex) 0.63 mg IH [id number] [facility] Last Admin: 09/20/18 01:22 Dose: Not Given Lidocaine (Lidoderm) 1 ea TD DAILY [facility] Last Admin: 09/20/18 12:56 Dose: 1 ea Metoprolol Tartrate (Lopressor) 25 mg PO Q8 [facility] Last Admin: 09/20/18 06:02 Dose: 25 mg Ondansetron HCl (Zofran Inj) 4 mg IVP Q4H PRN PRN Reason: Nausea/Vomiting Pantoprazole Sodium (Protonix Inj) 40 mg IVP DAILY [facility] Last Admin: 09/20/18 12:57 Dose: 40 mg Prednisone (Prednisone Tab) 5 mg PO BRK [facility] Last Admin: 09/20/18 12:57 Dose: 5 mg Thiamine HCl (Vitamin B1 Tab) 100 mg PO DAILY [facility] Last Admin: 09/20/18 12:55 Dose: 100 mg - Labs Labs: 09/20/18 07:00 09/20/18 07:00 PT 14.1 SECONDS (9.4-12.5) H 09/20/18 07:00 INR 1.25 09/20/18 07:00 APTT 35.3 Seconds (26.9-38.3) 09/20/18 07:00 - Constitutional Appears: No Acute Distress, Cachectic - Head Exam Head Exam: ATRAUMATIC, NORMOCEPHALIC - Eye Exam Eye Exam: Normal appearance - ENT Exam ENT Exam: Mucous Membranes Moist - Neck Exam Neck Exam: Normal Inspection - Respiratory Exam Respiratory Exam: Clear to Ausculation Bilateral, NORMAL BREATHING PATTERN. absent: Rales, Rhonchi, Wheezes, Respiratory Distress - Cardiovascular Exam Cardiovascular Exam: REGULAR RHYTHM, +S1, +S2 - GI/Abdominal Exam GI & Abdominal Exam: Soft, Normal Bowel Sounds. absent: Distended, Firm, Rigid, Tenderness, Mass, Organomegaly - Extremities Exam Extremities Exam: absent: Joint Swelling, Pedal Edema - Neurological Exam Neurological Exam: Alert, Awake, Oriented x3 - Psychiatric Exam Psychiatric exam: Normal Affect, Normal Mood - Skin Skin Exam: Dry, Intact, Normal Color, Warm Assessment and Plan - Assessment and Plan (Free Text) Assessment: # GI bleed, 2/2 stercoral ulcerations 2/2 chronic constipation # Microcytic anemia # Thrombocytopenia # Klebsiella Bacteremia 2/2 UTI # Polycystic Kidney disease s/p right renal allograft # ESRD on HD MWF # HTN # Severe Aortic Stenosis with hx of prior AV replacement (not candidate for TAVR as of 2017) # unrepaired infrarenal AAA - CT abd pelvis w/o contrast: extensive diverticulosis. abdominal/pelvic ascites. No free air. Heterogenous appearance of liver with innumerable hypodensities, possibly tiny cysts or hemangiomas. Ill denied hypodense region within hepatic dome spanning 16 x 10 mm. - bleeding scan negative - s/p 1 unit FFP, platelets, 3 units prbcs - Hgb remains stable. Will continue to monitor closely. - EGD 09/16 showed no bleeding source. Flex sigmoidoscopy showed multiple ulcers in rectum, likely stercoral ulcerations. T - Continue with bowel regimen. Prevent constipation. - continue with renal, low carb consistent soft diet -no further procedures planned at this time - further recs per Dr Cordova. Case seen and discussed with Dr Cordova. <Mac Cordova V - Last Filed: 09/20/18 23:58> Objective - Vital Signs/Intake and Output Vital Signs (last 24 hours): Temp Pulse Resp BP Pulse Ox 98.4 F 76 20 134/80 96 09/20/18 17:59 09/20/18 18:00 09/20/18 17:59 09/20/18 17:59 09/20/18 06:00 - Medications Medications: Current Medications Acetaminophen (Tylenol 325mg Tab) 650 mg PO Q4H PRN PRN Reason: temp > 99.5F Last Admin: 09/20/18 22:57 Dose: 650 mg Acetaminophen (Tylenol 325mg Tab) 650 mg PO Q6 PRN PRN Reason: TEMP>=99.5F Acetaminophen (Tylenol 650 Mg Supp) 650 mg RC Q6H PRN PRN Reason: TEMP>=99.5F Atorvastatin Calcium (Lipitor) 10 mg PO DIN [facility] Last Admin: 09/20/18 18:15 Dose: 10 mg Calcitriol (Rocaltrol) 0.75 mcg PO TTS [facility] Last Admin: 09/20/18 12:54 Dose: 0.75 mcg Cyproheptadine HCl (Periactin) 4 mg PO BID [facility] Last Admin: 09/20/18 18:15 Dose: 4 mg Ezetimibe (Zetia) 10 mg PO DAILY [facility] Last Admin: 09/20/18 12:55 Dose: 10 mg Famotidine (Pepcid) 40 mg PO HS [facility] Last Admin: 09/20/18 22:57 Dose: 40 mg Insulin Human Regular (Humulin R Low) 0 units SC ACHS [facility]; Protocol Last Admin: 09/20/18 23:07 Dose: Not Given Lactulose (Enulose) 15 gm PO DAILY [facility] Last Admin: 09/20/18 12:55 Dose: Not Given Levalbuterol HCl (Xopenex) 0.63 mg IH [id number] [facility] Last Admin: 09/20/18 21:00 Dose: 0.63 mg Lidocaine (Lidoderm) 1 ea TD DAILY [facility] Last Admin: 09/20/18 12:56 Dose: 1 ea Metoprolol Tartrate (Lopressor) 25 mg PO Q8 [facility] Last Admin: 09/20/18 15:25 Dose: 25 mg Ondansetron HCl (Zofran Inj) 4 mg IVP Q4H PRN PRN Reason: Nausea/Vomiting Pantoprazole Sodium (Protonix Inj) 40 mg IVP DAILY [facility] Last Admin: 09/20/18 12:57 Dose: 40 mg Prednisone (Prednisone Tab) 5 mg PO BRK [facility] Last Admin: 09/20/18 12:57 Dose: 5 mg Thiamine HCl (Vitamin B1 Tab) 100 mg PO DAILY [facility] Last Admin: 09/20/18 12:55 Dose: 100 mg - Labs Labs: 09/20/18 07:00 09/20/18 07:00 PT 14.1 SECONDS (9.4-12.5) H 09/20/18 07:00 INR 1.25 09/20/18 07:00 APTT 35.3 Seconds (26.9-38.3) 09/20/18 07:00 Attending/Attestation - Attestation I have personally seen and examined this patient.: Yes I have fully participated in the care of the patient.: Yes I have reviewed all pertinent clinical information, including history, physical exam and plan: Yes Notes (Text): p 09/20/18 23:58
--- NOTE | 2018-09-20 15:20 | RAD ---
Date of service: 09/20/2018 HISTORY: Assess pleural effusions COMPARISON: Comparison chest 09/17/2018. Comparison also made with CTA of the abdomen and pelvis dated 09/15/2018 TECHNIQUE: 1 view obtained. FINDINGS: LUNGS: Persistent slight elevation right hemidiaphragm with bilateral effusions right larger than left. PLEURA: No significant pleural effusion identified, no pneumothorax apparent. CARDIOVASCULAR: Heart is mildly enlarged. Sternotomy wires and prostatic aortic valve again noted. aortic atherosclerotic calcification present. OSSEOUS STRUCTURES: No significant abnormalities. VISUALIZED UPPER ABDOMEN: Normal. OTHER FINDINGS: None. IMPRESSION: Persistent slight elevation right hemidiaphragm with bilateral effusions right larger than left.
[2018-09-20] MEDS: Sodium Chloride 0.9% 500 ML IV SCH (20:58)
--- NOTE | 2018-09-20 21:59 | CP.PCM.PN ---
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), unrepaired large AAA, s/p bioprosthetic AVR, and ESRD on HD, admitted with GI bleed; No bloody BM noted today; patient tolerating diet; no issues breathing; Objective - Vital Signs/Intake and Output Vital Signs (last 24 hours): Temp Pulse Resp BP Pulse Ox 98.4 F 76 20 134/80 96 09/20/18 17:59 09/20/18 18:00 09/20/18 17:59 09/20/18 17:59 09/20/18 06:00 - Medications Medications: Current Medications Acetaminophen (Tylenol 325mg Tab) 650 mg PO Q4H PRN PRN Reason: temp > 99.5F Acetaminophen (Tylenol 325mg Tab) 650 mg PO Q6 PRN PRN Reason: TEMP>=99.5F Acetaminophen (Tylenol 650 Mg Supp) 650 mg RC Q6H PRN PRN Reason: TEMP>=99.5F Atorvastatin Calcium (Lipitor) 10 mg PO DIN [facility] Last Admin: 09/20/18 18:15 Dose: 10 mg Calcitriol (Rocaltrol) 0.75 mcg PO TTS [facility] Last Admin: 09/20/18 12:54 Dose: 0.75 mcg Cyproheptadine HCl (Periactin) 4 mg PO BID [facility] Last Admin: 09/20/18 18:15 Dose: 4 mg Ezetimibe (Zetia) 10 mg PO DAILY [facility] Last Admin: 09/20/18 12:55 Dose: 10 mg Famotidine (Pepcid) 40 mg PO HS [facility] Last Admin: 09/19/18 23:39 Dose: 40 mg Insulin Human Regular (Humulin R Low) 0 units SC ACHS [facility]; Protocol Last Admin: 09/20/18 18:15 Dose: 1 u Lactulose (Enulose) 15 gm PO DAILY [facility] Last Admin: 09/20/18 12:55 Dose: Not Given Levalbuterol HCl (Xopenex) 0.63 mg IH [id number] [facility] Last Admin: 09/20/18 21:00 Dose: 0.63 mg Lidocaine (Lidoderm) 1 ea TD DAILY [facility] Last Admin: 09/20/18 12:56 Dose: 1 ea Metoprolol Tartrate (Lopressor) 25 mg PO Q8 [facility] Last Admin: 09/20/18 15:25 Dose: 25 mg Ondansetron HCl (Zofran Inj) 4 mg IVP Q4H PRN PRN Reason: Nausea/Vomiting Pantoprazole Sodium (Protonix Inj) 40 mg IVP DAILY [facility] Last Admin: 09/20/18 12:57 Dose: 40 mg Prednisone (Prednisone Tab) 5 mg PO BRK [facility] Last Admin: 09/20/18 12:57 Dose: 5 mg Thiamine HCl (Vitamin B1 Tab) 100 mg PO DAILY [facility] Last Admin: 09/20/18 12:55 Dose: 100 mg - Labs Labs: 09/20/18 07:00 09/20/18 07:00 PT 14.1 SECONDS (9.4-12.5) H 09/20/18 07:00 INR 1.25 09/20/18 07:00 APTT 35.3 Seconds (26.9-38.3) 09/20/18 07:00 - Constitutional Appears: Non-toxic, No Acute Distress, Cachectic - Eye Exam Eye Exam: Normal appearance - Respiratory Exam Respiratory Exam: Clear to Ausculation Bilateral. absent: Respiratory Distress - Cardiovascular Exam Cardiovascular Exam: RRR, +S1, +S2. absent: Gallop, Rubs - GI/Abdominal Exam GI & Abdominal Exam: Soft, Pulsatile Mass. absent: Tenderness - Extremities Exam Additional comments: minimal leg edema; - Neurological Exam Neurological Exam: Alert, Awake - Psychiatric Exam Psychiatric exam: absent: Agitated - Skin Skin Exam: Warm. absent: Cyanosis Assessment and Plan (1) ESRD (end stage renal disease) Assessment & Plan: Stable electrolyte and volume status; tolerated HD well today with 1L UF goal; next HD for Saturday to put him back on schedule, 1 net UF goal; Status: Chronic (2) Hypertensive CKD, ESRD on dialysis Assessment & Plan: BP better controlled after restarting metoprolol, continue same; Status: Acute (3) GI bleed Assessment & Plan: Hgb relatively stable lately, will dose aranesp on HD weekly (100 mcg); Status: Acute (4) Immunosuppression Assessment & Plan: s/p failed renal transplant, now off tacrolimus; will taper prednisone once patient discharged; Status: Chronic (5) Chronic kidney disease-mineral and bone disorder Assessment & Plan: Phos controlled off binders; continue calcitriol 0.75 mcg three times per week; Status: Chronic
--- NOTE | 2018-09-20 23:46 | CP.PCM.PCO ---
Physician Communication Note - Physician Communication Note Physician Communication Note: Patient with bloody BM. CBC ordered.
[2018-09-21 00:30] LABS: BASO # 0.01 K/mm3 (0.0-2.0); BASO % 0.1 % (0.0-3.0); EOS % 0.3 % (1.5-5.0); HEMOGLOBIN 9.8 g/dL (14.0-18.0); LYMPH % 10.4 % (22.0-35.0); MEAN CELL VOLUME 82.4 fl (80.0-105.0); MEAN CORPUSCULAR HEMOGLOBIN 24.9 pg (25.0-35.0); MEAN CORPUSCULAR HGB CONC 30.2 g/dl (31.0-37.0); MONO # 0.6 (0.1-0.6); MONO % 6.2 % (1.0-6.0); PLATELET COUNT 84 10^3/uL (120.0-450.0); RBC 3.93 10^6/uL (3.5-6.1); RED CELL DISTRIBUTION WIDTH 19.7 % (11.5-14.5); WHITE BLOOD COUNT 9.4 10^3/uL (4.5-11.0)
[2018-09-21 00:40] LABS: INR 1.3; PARTIAL THROMBOPLASTIN TIME 36.3 Seconds (26.9-38.3); PROTHROMBIN TIME 14.4 SECONDS (9.4-12.5)
[2018-09-21] MEDS: Levalbuterol 0.63 MG/3 ML Inhal Soln UD IH SCH ×4 (03:20→20:51)
--- NOTE | 2018-09-21 03:27 | CP.PCM.PCO ---
<Mone Garcia - Last Filed: 09/21/18 03:22> Addendum Addendum: 09/21/18 03:22 House Doctor: Called Dr. Knox with findings of CBC, PT/PTT findings; Requested to notify GI regarding patient's status. Called Dr. Cordova's service to notify regarding bloody bm. Mone Garcia PGY1 <Jyoti Alexis - Last Filed: 09/29/18 05:46> Attending/Attestation - Attestation I have personally seen and examined this patient.: Yes I have fully participated in the care of the patient.: Yes I have reviewed all pertinent clinical information: Yes Notes (Text): 09/29/18 05:46 Patient was seen at bedside. He has no acute symptoms. Vital signs are stable. medical resident notified Dr. Knox.
[2018-09-21 06:35] LABS: BASO # 0.01 K/mm3 (0.0-2.0); BASO % 0.1 % (0.0-3.0); EOS # 0.1 (0.0-0.7); EOS % 0.6 % (1.5-5.0); LYMPH # 1.3 (1.2-3.4); LYMPH % 14.1 % (22.0-35.0); MEAN CELL VOLUME 82.5 fl (80.0-105.0); MEAN CORPUSCULAR HEMOGLOBIN 24.3 pg (25.0-35.0); MEAN CORPUSCULAR HGB CONC 29.4 g/dl (31.0-37.0); MONO # 0.5 (0.1-0.6); MONO % 5.7 % (1.0-6.0); PLATELET COUNT 73 10^3/uL (120.0-450.0); RBC 3.71 10^6/uL (3.5-6.1); RED CELL DISTRIBUTION WIDTH 19.7 % (11.5-14.5); WHITE BLOOD COUNT 8.9 10^3/uL (4.5-11.0)
[2018-09-21 06:46] LABS: ALB/GLOB RATIO 0.8 (1.1-1.8); ALBUMIN 2.3 g/dL (3.0-4.8); BILIRUBIN,DIRECT 0.3 mg/dL (0.0-0.4)
[2018-09-21 07:23] LABS: INR 1.28; PARTIAL THROMBOPLASTIN TIME 33.1 Seconds (26.9-38.3); PROTHROMBIN TIME 14.5 SECONDS (9.4-12.5)
--- NOTE | 2018-09-21 10:11 | CP.PCM.PN ---
Subjective - Date & Time of Evaluation Date of Evaluation: 09/21/18 Time of Evaluation: 01:00 - Subjective Subjective: See my note with medical residents cosigned the note. Objective - Vital Signs/Intake and Output Vital Signs (last 24 hours): Temp Pulse Resp BP Pulse Ox 97 F L 74 18 144/84 97 09/21/18 05:59 09/21/18 05:44 09/21/18 05:59 09/21/18 05:59 09/21/18 05:59 Intake and Output: 09/21/18 09/21/18 06:59 18:59 Intake Total 480 Output Total 100 Balance 380 - Medications Medications: Current Medications Acetaminophen (Tylenol 325mg Tab) 650 mg PO Q4H PRN PRN Reason: temp > 99.5F Last Admin: 09/20/18 22:57 Dose: 650 mg Acetaminophen (Tylenol 325mg Tab) 650 mg PO Q6 PRN PRN Reason: TEMP>=99.5F Acetaminophen (Tylenol 650 Mg Supp) 650 mg RC Q6H PRN PRN Reason: TEMP>=99.5F Atorvastatin Calcium (Lipitor) 10 mg PO DIN [facility] Last Admin: 09/20/18 18:15 Dose: 10 mg Calcitriol (Rocaltrol) 0.75 mcg PO TTS [facility] Last Admin: 09/20/18 12:54 Dose: 0.75 mcg Cyproheptadine HCl (Periactin) 4 mg PO BID [facility] Last Admin: 09/20/18 18:15 Dose: 4 mg Ezetimibe (Zetia) 10 mg PO DAILY [facility] Last Admin: 09/20/18 12:55 Dose: 10 mg Famotidine (Pepcid) 40 mg PO HS [facility] Last Admin: 09/20/18 22:57 Dose: 40 mg Insulin Human Regular (Humulin R Low) 0 units SC ACHS [facility]; Protocol Last Admin: 09/20/18 23:07 Dose: Not Given Lactulose (Enulose) 15 gm PO DAILY [facility] Last Admin: 09/20/18 12:55 Dose: Not Given Levalbuterol HCl (Xopenex) 0.63 mg IH [id number] [facility] Last Admin: 09/21/18 09:45 Dose: 0.63 mg Lidocaine (Lidoderm) 1 ea TD DAILY [facility] Last Admin: 09/20/18 12:56 Dose: 1 ea Metoprolol Tartrate (Lopressor) 25 mg PO Q8 [facility] Last Admin: 09/21/18 05:44 Dose: 25 mg Ondansetron HCl (Zofran Inj) 4 mg IVP Q4H PRN PRN Reason: Nausea/Vomiting Pantoprazole Sodium (Protonix Inj) 40 mg IVP DAILY [facility] Last Admin: 09/20/18 12:57 Dose: 40 mg Prednisone (Prednisone Tab) 5 mg PO BRK [facility] Last Admin: 09/20/18 12:57 Dose: 5 mg Thiamine HCl (Vitamin B1 Tab) 100 mg PO DAILY [facility] Last Admin: 09/20/18 12:55 Dose: 100 mg - Labs Labs: 09/21/18 06:00 09/21/18 06:00 PT 14.5 SECONDS (9.4-12.5) H 09/21/18 06:00 INR 1.28 09/21/18 06:00 APTT 33.1 Seconds (26.9-38.3) 09/21/18 06:00
[2018-09-21] MEDS: Insulin Reg-LOW-Coverage SC SCH ×5 (10:41→22:04)
[2018-09-21] MEDS: Lidocaine 5% Patch TD SCH (10:41)
[2018-09-21 10:44] LABS: PLATELET COUNT MANUAL 89 K/mm3 (120-450)
--- NOTE | 2018-09-21 14:20 | CP.PCM.PN ---
<Porsche Musa - Last Filed: 09/21/18 14:21> Subjective - Date & Time of Evaluation Date of Evaluation: 09/21/18 Time of Evaluation: 07:00 - Subjective Subjective: PGY5 GI Follow-up Pt seen and examined bedside had bloody BM overnight as per RN tolerated diet Denies any further bloody BM h/h stable ROS: 12 point ROS conducted, neg other than above Objective - Vital Signs/Intake and Output Vital Signs (last 24 hours): Temp Pulse Resp BP Pulse Ox 98.5 F 72 18 118/82 95 09/21/18 12:00 09/21/18 12:00 09/21/18 12:00 09/21/18 12:00 09/21/18 10:00 Intake and Output: 09/21/18 09/21/18 06:59 18:59 Intake Total 480 Output Total 100 Balance 380 - Medications Medications: Current Medications Acetaminophen (Tylenol 325mg Tab) 650 mg PO Q4H PRN PRN Reason: temp > 99.5F Last Admin: 09/20/18 22:57 Dose: 650 mg Acetaminophen (Tylenol 325mg Tab) 650 mg PO Q6 PRN PRN Reason: TEMP>=99.5F Acetaminophen (Tylenol 650 Mg Supp) 650 mg RC Q6H PRN PRN Reason: TEMP>=99.5F Atorvastatin Calcium (Lipitor) 10 mg PO DIN [facility] Last Admin: 09/20/18 18:15 Dose: 10 mg Calcitriol (Rocaltrol) 0.75 mcg PO TTS [facility] Last Admin: 09/20/18 12:54 Dose: 0.75 mcg Cyproheptadine HCl (Periactin) 4 mg PO BID [facility] Last Admin: 09/21/18 10:41 Dose: 4 mg Darbepoetin Wilmar (Aranesp) 100 mcg IVP ONCE ONE Stop: 09/22/18 10:01 Ezetimibe (Zetia) 10 mg PO DAILY [facility] Last Admin: 09/21/18 11:15 Dose: 10 mg Famotidine (Pepcid) 40 mg PO HS [facility] Last Admin: 09/20/18 22:57 Dose: 40 mg Insulin Human Regular (Humulin R Low) 0 units SC [facility]; Protocol Last Admin: 09/21/18 10:41 Dose: Not Given Lactulose (Enulose) 15 gm PO DAILY [facility] Last Admin: 04/14/19 10:41 Dose: 15 gm Levalbuterol HCl (Xopenex) 0.63 mg IH [id number] [facility] Last Admin: 09/21/18 09:45 Dose: 0.63 mg Lidocaine (Lidoderm) 1 ea TD DAILY [facility] Last Admin: 09/21/18 10:41 Dose: 1 ea Metoprolol Tartrate (Lopressor) 25 mg PO Q8 [facility] Last Admin: 09/21/18 05:44 Dose: 25 mg Ondansetron HCl (Zofran Inj) 4 mg IVP Q4H PRN PRN Reason: Nausea/Vomiting Pantoprazole Sodium (Protonix Inj) 40 mg IVP DAILY [facility] Last Admin: 09/21/18 10:40 Dose: 40 mg Prednisone (Prednisone Tab) 5 mg PO BRK [facility] Last Admin: 09/21/18 10:41 Dose: 5 mg Thiamine HCl (Vitamin B1 Tab) 100 mg PO DAILY [facility] Last Admin: 09/21/18 10:40 Dose: 100 mg - Labs Labs: 09/21/18 06:00 09/21/18 06:00 PT 14.5 SECONDS (9.4-12.5) H 09/21/18 06:00 INR 1.28 09/21/18 06:00 APTT 33.1 Seconds (26.9-38.3) 09/21/18 06:00 - Constitutional Appears: No Acute Distress, Chronically Ill - Head Exam Head Exam: ATRAUMATIC, NORMOCEPHALIC - Eye Exam Eye Exam: Normal appearance - ENT Exam ENT Exam: Mucous Membranes Moist, Normal Exam - Neck Exam Neck Exam: Normal Inspection - Respiratory Exam Respiratory Exam: Clear to Ausculation Bilateral, NORMAL BREATHING PATTERN. absent: Wheezes, Respiratory Distress - Cardiovascular Exam Cardiovascular Exam: REGULAR RHYTHM, +S1, +S2 - GI/Abdominal Exam GI & Abdominal Exam: Soft, Normal Bowel Sounds. absent: Distended, Firm, Guarding, Rigid, Tenderness, Rebound - Extremities Exam Extremities Exam: absent: Joint Swelling, Pedal Edema - Neurological Exam Neurological Exam: Alert, Awake, Oriented x3 - Psychiatric Exam Psychiatric exam: Normal Affect, Normal Mood - Skin Skin Exam: Dry, Intact, Normal Color, Warm Assessment and Plan - Assessment and Plan (Free Text) Assessment: # GI bleed, 2/2 stercoral ulcerations 2/2 chronic constipation # Microcytic anemia # Thrombocytopenia # Klebsiella Bacteremia 2/2 UTI # Polycystic Kidney disease s/p right renal allograft # ESRD on HD MWF # HTN # Severe Aortic Stenosis with hx of prior AV replacement (not candidate for TAVR as of 2018) # unrepaired infrarenal AAA - CT abd pelvis w/o contrast: extensive diverticulosis. abdominal/pelvic ascites. No free air. Heterogenous appearance of liver with innumerable hypodensities, possibly tiny cysts or hemangiomas. Ill denied hypodense region within hepatic dome spanning 16 x 10 mm. - bleeding scan negative - Hgb remains stable. Will continue to monitor closely. - EGD 09/16 showed no bleeding source. Flex sigmoidoscopy showed multiple ulcers in rectum, likely stercoral ulcerations. T - Continue with bowel regimen. Prevent constipation. - continue with renal, low carb consistent soft diet - no further procedures planned at this time - further recs per Dr Cordova. - continue to monitor H/H Case seen and discussed with Dr Cordova. <Mac Cordova V - Last Filed: 09/22/18 00:01> Objective - Vital Signs/Intake and Output Vital Signs (last 24 hours): Temp Pulse Resp BP Pulse Ox 98.9 F 86 20 98/64 L 95 09/21/18 18:00 09/21/18 22:05 09/21/18 18:00 09/21/18 22:05 09/21/18 18:00 Intake and Output: 09/21/18 09/22/18 18:59 06:59 Intake Total 1140 Output Total 100 Balance 1040 - Medications Medications: Current Medications Acetaminophen (Tylenol 325mg Tab) 650 mg PO Q4H PRN PRN Reason: temp > 99.5F Last Admin: 09/20/18 22:57 Dose: 650 mg Acetaminophen (Tylenol 325mg Tab) 650 mg PO Q6 PRN PRN Reason: TEMP>=99.5F Last Admin: 09/21/18 22:10 Dose: 650 mg Acetaminophen (Tylenol 650 Mg Supp) 650 mg RC Q6H PRN PRN Reason: TEMP>=99.5F Atorvastatin Calcium (Lipitor) 10 mg PO DIN [place] Last Admin: 09/21/18 17:22 Dose: 10 mg Calcitriol (Rocaltrol) 0.75 mcg PO TTS [facility] Last Admin: 09/20/18 12:54 Dose: 0.75 mcg Cyproheptadine HCl (Periactin) 4 mg PO BID [facility] Last Admin: 09/21/18 17:20 Dose: 4 mg Darbepoetin Wilmar (Aranesp) 100 mcg IVP ONCE ONE Stop: 09/22/18 10:01 Ezetimibe (Zetia) 10 mg PO DAILY [facility] Last Admin: 09/21/18 11:15 Dose: 10 mg Famotidine (Pepcid) 40 mg PO HS [facility] Last Admin: 09/21/18 22:09 Dose: 40 mg Insulin Human Regular (Humulin R Low) 0 units SC ACHS [facility]; Protocol Last Admin: 09/21/18 22:04 Dose: Not Given Lactulose (Enulose) 15 gm PO DAILY [facility] Last Admin: 09/21/18 10:41 Dose: 15 gm Levalbuterol HCl (Xopenex) 0.63 mg IH [id number] [facility] Last Admin: 09/21/18 20:51 Dose: 0.63 mg Lidocaine (Lidoderm) 1 ea TD DAILY [facility] Last Admin: 09/21/18 10:41 Dose: 1 ea Metoprolol Tartrate (Lopressor) 25 mg PO Q8 [facility] Last Admin: 09/21/18 22:05 Dose: Not Given Ondansetron HCl (Zofran Inj) 4 mg IVP Q4H PRN PRN Reason: Nausea/Vomiting Pantoprazole Sodium (Protonix Inj) 40 mg IVP DAILY [facility] Last Admin: 09/21/18 10:40 Dose: 40 mg Prednisone (Prednisone Tab) 5 mg PO BRK [facility] Last Admin: 09/21/18 10:41 Dose: 5 mg Thiamine HCl (Vitamin B1 Tab) 100 mg PO DAILY [facility] Last Admin: 09/21/18 10:40 Dose: 100 mg - Labs Labs: 09/21/18 17:00 09/21/18 06:00 PT 14.5 SECONDS (9.4-12.5) H 09/21/18 06:00 INR 1.28 09/21/18 06:00 APTT 33.1 Seconds (26.9-38.3) 09/21/18 06:00 Attending/Attestation - Attestation I have personally seen and examined this patient.: Yes I have fully participated in the care of the patient.: Yes I have reviewed all pertinent clinical information, including history, physical exam and plan: Yes Notes (Text): celsa 09/22/18 00:01
--- NOTE | 2018-09-21 15:26 | PN ---
DATE: 09/21/2018 SUBJECTIVE: The patient is in Room 277, Bed 2. No fevers, no chills, no nausea. PHYSICAL EXAMINATION: VITAL SIGNS: Temperature is 97, blood pressure is 140/80, respiratory rate of 18. HEENT: Unremarkable. NECK: Supple. LUNGS: Decreased breath sounds. HEART: Normal S1 and S2. ABDOMEN: Soft, nontender. LABORATORY DATA: Reveals white count of 8.9, hemoglobin of 9, platelets of 73. Chemistries reveal BUN of 30, creatinine of 2. Blood cultures are negative. MRSA is not detected. Chest x-ray from yesterday is noted. ASSESSMENT AND PLAN: A 67-year-old male with Klebsiella bacteremia; Klebsiella urine as a source. Completed the antibiotics. Admitted this admission with gastrointestinal bleeding. The patient with a history of renal transplant in 2006, diabetes mellitus, aortic stenosis, aortic valve replacement, and a large unrepaired abdominal aortic aneurysm, currently now off antibiotics. The patient has renal insufficiency. The patient is in risk for developing nosocomial infection. The patient is on prednisone. Bishop Squires MD
[2018-09-21 17:19] LABS: BASO # 0.01 K/mm3 (0.0-2.0); BASO % 0.1 % (0.0-3.0); EOS % 0.2 % (1.5-5.0); HEMOGLOBIN 9.5 g/dL (14.0-18.0); LYMPH # 0.9 (1.2-3.4); LYMPH % 9.1 % (22.0-35.0); MEAN CELL VOLUME 82.7 fl (80.0-105.0); MEAN CORPUSCULAR HEMOGLOBIN 24.5 pg (25.0-35.0); MEAN CORPUSCULAR HGB CONC 29.6 g/dl (31.0-37.0); MEAN PLATELET VOLUME 10.8 fl (7.0-11.0); MONO # 0.5 (0.1-0.6); MONO % 5.2 % (1.0-6.0); RBC 3.88 10^6/uL (3.5-6.1); RED CELL DISTRIBUTION WIDTH 19.9 % (11.5-14.5); WHITE BLOOD COUNT 9.8 10^3/uL (4.5-11.0)
--- NOTE | 2018-09-21 20:23 | CP.PCM.PN ---
Subjective - Date & Time of Evaluation Date of Evaluation: 09/21/18 Time of Evaluation: 15:00 - Subjective Subjective: SUBJECTIVE: The patient was seen and examined at bedside on the telemetry gutiérrez. No acute events overnight. This afternoon he was noted to have a large bloody BM and repeat labs are pending to reassess his Hb. The patient appears to be confused and denies having a bloody BM. Overall he reports feeling ok and offers no complaints. OBJECTIVE: VS: T 98.9, P 82, BP 111/78, RR 18, O2 96% RA General: Cachectic, chronically-ill appeaing man, lying in bed, in NAD HEENT: PERRL, EOMI, no scleral icterus, (+) conjunctival pallor Neck: No JVD Lungs: Decreased BS to the bases Cardiovascular: RRR, Grade III/ CRISTINE to RUSB Abdomen: NABS, soft, NT, ND Ext: trace pedal edema b/l Neurologic: AAO x 3, no focal motor deficits. LABORATORY DATA: WBC 9.8, Hb 9.5, Hct 32, Plt 97 Chemistry reviewed and BUN 30, Cr 2. ASSESSMENT: The patient is a 67 year old man with multiple medical comorbidities who was initially admitted for management of UTI with sepsis and whose TCU course was complicated by massive lower GI bleed with hemorrhagic shock necessitating ICU admission who is now s/p transfer out of the ICU. PLAN: 1. Hemorrhagic shock secondary to lower GI bleed, resolved. He remains hemodynamically stable. Input from Dr. Cordova noted. Continue to monitor H/H and transfuse as needed. 2. Lower GI bleed. The patient reportedly had another large bloody BM. Repeat H/H stable. Continue with care as per Dr. Cordova. 3. HTN. BP controlled. Continue with current medications. 4. ESRD on HD (M/W/F). Continue with HD as per Nephrology team. 5. ADPKD s/p renal transplant. 6. Severe . 7. T2DM. Continue with ISS and FS monitoring. 8. AAA. 9. Prophylaxis. Continue Protonix for GI prophylaxis and SCDs for DVT p rophylaxis. Objective - Vital Signs/Intake and Output Vital Signs (last 24 hours): Temp Pulse Resp BP Pulse Ox 98.9 F 89 20 111/78 95 09/21/18 18:00 09/21/18 18:00 09/21/18 18:00 09/21/18 18:00 09/21/18 18:00 Intake and Output: 09/21/18 09/22/18 18:59 06:59 Intake Total 1140 Output Total 100 Balance 1040 - Medications Medications: Current Medications Acetaminophen (Tylenol 325mg Tab) 650 mg PO Q4H PRN PRN Reason: temp > 99.5F Last Admin: 09/20/18 22:57 Dose: 650 mg Acetaminophen (Tylenol 325mg Tab) 650 mg PO Q6 PRN PRN Reason: TEMP>=99.5F Acetaminophen (Tylenol 650 Mg Supp) 650 mg RC Q6H PRN PRN Reason: TEMP>=99.5F Atorvastatin Calcium (Lipitor) 10 mg PO DIN [facility] Last Admin: 09/21/18 17:22 Dose: 10 mg Calcitriol (Rocaltrol) 0.75 mcg PO TTS [facility] Last Admin: 09/20/18 12:54 Dose: 0.75 mcg Cyproheptadine HCl (Periactin) 4 mg PO BID [facility] Last Admin: 09/21/18 17:20 Dose: 4 mg Darbepoetin Wil[place] (Aranesp) 100 mcg IVP ONCE ONE Stop: 09/22/18 10:01 Ezetimibe (Zetia) 10 mg PO DAILY [facility] Last Admin: 09/21/18 11:15 Dose: 10 mg Famotidine (Pepcid) 40 mg PO HS [facility] Last Admin: 09/20/18 22:57 Dose: 40 mg Insulin Human Regular (Humulin R Low) 0 units SC [facility]; Protocol Last Admin: 09/21/18 17:23 Dose: 2 u Lactulose (Enulose) 15 gm PO DAILY [facility] Last Admin: 09/21/18 10:41 Dose: 15 gm Levalbuterol HCl (Xopenex) 0.63 mg IH [id number] [facility] Last Admin: 09/21/18 14:38 Dose: Not Given Lidocaine (Lidoderm) 1 ea TD DAILY [facility] Last Admin: 09/21/18 10:41 Dose: 1 ea Metoprolol Tartrate (Lopressor) 25 mg PO Q8 [facility] Last Admin: 09/21/18 17:20 Dose: 25 mg Ondansetron HCl (Zofran Inj) 4 mg IVP Q4H PRN PRN Reason: Nausea/Vomiting Pantoprazole Sodium (Protonix Inj) 40 mg IVP DAILY [facility] Last Admin: 09/21/18 10:40 Dose: 40 mg Prednisone (Prednisone Tab) 5 mg PO BRK [facility] Last Admin: 09/21/18 10:41 Dose: 5 mg Thiamine HCl (Vitamin B1 Tab) 100 mg PO DAILY [facility] Last Admin: 09/21/18 10:40 Dose: 100 mg - Labs Labs: 09/21/18 17:00 09/21/18 06:00 PT 14.5 SECONDS (9.4-12.5) H 09/21/18 06:00 INR 1.28 09/21/18 06:00 APTT 33.1 Seconds (26.9-38.3) 09/21/18 06:00
--- NOTE | 2018-09-21 21:29 | CP.PCM.PN ---
Subjective - Date & Time of Evaluation Date of Evaluation: 09/20/18 Time of Evaluation: 18:00 - Subjective Subjective: No complaints. Objective - Vital Signs/Intake and Output Vital Signs (last 24 hours): Temp Pulse Resp BP Pulse Ox 98.9 F 89 20 111/78 95 09/21/18 18:00 09/21/18 18:00 09/21/18 18:00 09/21/18 18:00 09/21/18 18:00 Intake and Output: 09/21/18 09/22/18 18:59 06:59 Intake Total 1140 Output Total 100 Balance 1040 - Medications Medications: Current Medications Acetaminophen (Tylenol 325mg Tab) 650 mg PO Q4H PRN PRN Reason: temp > 99.5F Last Admin: 09/20/18 22:57 Dose: 650 mg Acetaminophen (Tylenol 325mg Tab) 650 mg PO Q6 PRN PRN Reason: TEMP>=99.5F Acetaminophen (Tylenol 650 Mg Supp) 650 mg RC Q6H PRN PRN Reason: TEMP>=99.5F Atorvastatin Calcium (Lipitor) 10 mg PO DIN [facility] Last Admin: 09/21/18 17:22 Dose: 10 mg Calcitriol (Rocaltrol) 0.75 mcg PO TTS [facility] Last Admin: 09/20/18 12:54 Dose: 0.75 mcg Cyproheptadine HCl (Periactin) 4 mg PO BID [facility] Last Admin: 09/21/18 17:20 Dose: 4 mg Darbepoetin Wil[place] (Aranesp) 100 mcg IVP ONCE ONE Stop: 09/22/18 10:01 Ezetimibe (Zetia) 10 mg PO DAILY [facility] Last Admin: 09/21/18 11:15 Dose: 10 mg Famotidine (Pepcid) 40 mg PO HS [facility] Last Admin: 09/20/18 22:57 Dose: 40 mg Insulin Human Regular (Humulin R Low) 0 units SC ACHS [facility]; Protocol Last Admin: 09/21/18 17:23 Dose: 2 u Lactulose (Enulose) 15 gm PO DAILY [facility] Last Admin: 09/21/18 10:41 Dose: 15 gm Levalbuterol HCl (Xopenex) 0.63 mg IH [id number] [facility] Last Admin: 09/21/18 20:51 Dose: 0.63 mg Lidocaine (Lidoderm) 1 ea TD DAILY [facility] Last Admin: 09/21/18 10:41 Dose: 1 ea Metoprolol Tartrate (Lopressor) 25 mg PO Q8 [facility] Last Admin: 09/21/18 17:20 Dose: 25 mg Ondansetron HCl (Zofran Inj) 4 mg IVP Q4H PRN PRN Reason: Nausea/Vomiting Pantoprazole Sodium (Protonix Inj) 40 mg IVP DAILY [facility] Last Admin: 09/21/18 10:40 Dose: 40 mg Prednisone (Prednisone Tab) 5 mg PO BRK [facility] Last Admin: 09/21/18 10:41 Dose: 5 mg Thiamine HCl (Vitamin B1 Tab) 100 mg PO DAILY [facility] Last Admin: 09/21/18 10:40 Dose: 100 mg - Labs Labs: 09/21/18 17:00 09/21/18 06:00 PT 14.5 SECONDS (9.4-12.5) H 09/21/18 06:00 INR 1.28 09/21/18 06:00 APTT 33.1 Seconds (26.9-38.3) 09/21/18 06:00 - Constitutional Appears: Cachectic - Head Exam Head Exam: ATRAUMATIC - Eye Exam Eye Exam: Normal appearance - ENT Exam ENT Exam: Mucous Membranes Dry - Respiratory Exam Respiratory Exam: NORMAL BREATHING PATTERN - Cardiovascular Exam Cardiovascular Exam: +S1, +S2 - GI/Abdominal Exam GI & Abdominal Exam: Normal Bowel Sounds - Extremities Exam Extremities Exam: Normal Inspection Assessment and Plan (1) DIC (disseminated intravascular coagulation) Assessment & Plan: fibrinogen plateaud cont. treatment of acute illness cryopercipitate if fibrinogen < 50 Status: Acute (2) Thrombocytopenia Assessment & Plan: secondary to DIC improved Status: Acute (3) Anemia Assessment & Plan: fGI blood loss chronic disease, DIC anemia of CKD on MARK transfusion support PRN Status: Chronic (4) Coagulopathy Assessment & Plan: DIC nutritional component Status: Acute
--- NOTE | 2018-09-21 21:30 | CP.PCM.PN ---
Subjective - Date & Time of Evaluation Date of Evaluation: 09/21/18 Time of Evaluation: 18:00 - Subjective Subjective: Bloody bowel movement noted by nursing today. Objective - Vital Signs/Intake and Output Vital Signs (last 24 hours): Temp Pulse Resp BP Pulse Ox 98.9 F 89 20 111/78 95 09/21/18 18:00 09/21/18 18:00 09/21/18 18:00 09/21/18 18:00 09/21/18 18:00 Intake and Output: 09/21/18 09/22/18 18:59 06:59 Intake Total 1140 Output Total 100 Balance 1040 - Medications Medications: Current Medications Acetaminophen (Tylenol 325mg Tab) 650 mg PO Q4H PRN PRN Reason: temp > 99.5F Last Admin: 09/20/18 22:57 Dose: 650 mg Acetaminophen (Tylenol 325mg Tab) 650 mg PO Q6 PRN PRN Reason: TEMP>=99.5F Acetaminophen (Tylenol 650 Mg Supp) 650 mg RC Q6H PRN PRN Reason: TEMP>=99.5F Atorvastatin Calcium (Lipitor) 10 mg PO DIN [facility] Last Admin: 09/21/18 17:22 Dose: 10 mg Calcitriol (Rocaltrol) 0.75 mcg PO TTS [facility] Last Admin: 09/20/18 12:54 Dose: 0.75 mcg Cyproheptadine HCl (Periactin) 4 mg PO BID [facility] Last Admin: 09/21/18 17:20 Dose: 4 mg Darbepoetin [place] (Aranesp) 100 mcg IVP ONCE ONE Stop: 09/22/18 10:01 Ezetimibe (Zetia) 10 mg PO DAILY [facility] Last Admin: 09/21/18 11:15 Dose: 10 mg Famotidine (Pepcid) 40 mg PO HS [facility] Last Admin: 09/20/18 22:57 Dose: 40 mg Insulin Human Regular (Humulin R Low) 0 units SC ACHS [facility]; Protocol Last Admin: 09/21/18 17:23 Dose: 2 u Lactulose (Enulose) 15 gm PO DAILY [facility] Last Admin: 09/21/18 10:41 Dose: 15 gm Levalbuterol HCl (Xopenex) 0.63 mg IH [id number] [facility] Last Admin: 09/21/18 20:51 Dose: 0.63 mg Lidocaine (Lidoderm) 1 ea TD DAILY [facility] Last Admin: 09/21/18 10:41 Dose: 1 ea Metoprolol Tartrate (Lopressor) 25 mg PO Q8 [facility] Last Admin: 09/21/18 17:20 Dose: 25 mg Ondansetron HCl (Zofran Inj) 4 mg IVP Q4H PRN PRN Reason: Nausea/Vomiting Pantoprazole Sodium (Protonix Inj) 40 mg IVP DAILY [facility] Last Admin: 09/21/18 10:40 Dose: 40 mg Prednisone (Prednisone Tab) 5 mg PO BRK [facility] Last Admin: 09/21/18 10:41 Dose: 5 mg Thiamine HCl (Vitamin B1 Tab) 100 mg PO DAILY [facility] Last Admin: 09/21/18 10:40 Dose: 100 mg - Labs Labs: 09/21/18 17:00 09/21/18 06:00 PT 14.5 SECONDS (9.4-12.5) H 09/21/18 06:00 INR 1.28 09/21/18 06:00 APTT 33.1 Seconds (26.9-38.3) 09/21/18 06:00 - Constitutional Appears: Cachectic - Head Exam Head Exam: ATRAUMATIC - Eye Exam Eye Exam: Normal appearance - ENT Exam ENT Exam: Mucous Membranes Dry - Respiratory Exam Respiratory Exam: NORMAL BREATHING PATTERN - Cardiovascular Exam Cardiovascular Exam: +S1, +S2 - GI/Abdominal Exam GI & Abdominal Exam: Normal Bowel Sounds Assessment and Plan (1) DIC (disseminated intravascular coagulation) Assessment & Plan: fibrinogen plateued cont. treatment of acute illness cryopercipitate if fibrinogen < 50 Status: Acute (2) Thrombocytopenia Assessment & Plan: platelet count improved Status: Acute (3) Anemia Assessment & Plan: GI blood loss chronic disease, DIC anemia of CKD on MARK transfusion support PRN Status: Chronic (4) Coagulopathy Assessment & Plan: DIC nutritional component Status: Acute
[2018-09-22] MEDS: Levalbuterol 0.63 MG/3 ML Inhal Soln UD IH SCH ×4 (02:09→20:02)
[2018-09-22 06:36] LABS: BASO # 0.01 K/mm3 (0.0-2.0); BASO % 0.1 % (0.0-3.0); EOS % 0.4 % (1.5-5.0); HEMOGLOBIN 9.4 g/dL (14.0-18.0); LYMPH # 1.3 (1.2-3.4); LYMPH % 13.2 % (22.0-35.0); MEAN CELL VOLUME 82.7 fl (80.0-105.0); MEAN CORPUSCULAR HEMOGLOBIN 24.7 pg (25.0-35.0); MEAN CORPUSCULAR HGB CONC 29.8 g/dl (31.0-37.0); MONO # 0.6 (0.1-0.6); MONO % 6.1 % (1.0-6.0); PLATELET COUNT 96 10^3/uL (120.0-450.0); RBC 3.81 10^6/uL (3.5-6.1); RED CELL DISTRIBUTION WIDTH 19.8 % (11.5-14.5); WHITE BLOOD COUNT 9.9 10^3/uL (4.5-11.0)
[2018-09-22 06:46] LABS: INR 1.3; PROTHROMBIN TIME 14.7 SECONDS (9.4-12.5)
[2018-09-22 07:13] LABS: ALB/GLOB RATIO 0.8 (1.1-1.8); ALBUMIN 2.3 g/dL (3.0-4.8); BILIRUBIN,DIRECT 0.4 mg/dL (0.0-0.4); CALCIUM 8.3 mg/dL (8.4-10.5)
[2018-09-22] MEDS: Insulin Reg-LOW-Coverage SC SCH ×4 (07:58→23:20)
[2018-09-22] MEDS ORDERED: Potassium Phosphate 30 MMOLE in Dextrose 5% In Water 250 ML IVPB ONE (08:25)
[2018-09-22 08:52] LABS: PLATELET COUNT MANUAL 125 K/mm3 (120-450)
[2018-09-22] MEDS ORDERED: Darbepoetin Alfa 100 mcg/ml Inj IVP ONE (10:00)
--- NOTE | 2018-09-22 10:30 | CP.PCM.PN ---
<Bradley Davalos - Last Filed: 09/22/18 10:25> Subjective - Date & Time of Evaluation Date of Evaluation: 09/22/18 Time of Evaluation: 07:00 - Subjective Subjective: Nephro Progress Note for Dr. Wheeler Service Bradley Davalos DO, IM PGY-3 Patient seen and examined at bedside. Overnight, 2 reported episodes of bloody stool, but Hgb remains stable and pt hemodynamically stable. Remains confused this AM, refusing to answer questions and refusing exam because he is waiting on pills. Will attempt again later. Objective - Vital Signs/Intake and Output Vital Signs (last 24 hours): Temp Pulse Resp BP Pulse Ox 98.5 F 87 18 119/83 96 09/22/18 06:00 09/22/18 06:07 09/22/18 06:00 09/22/18 06:07 09/22/18 06:00 Intake and Output: 09/22/18 09/22/18 06:59 18:59 Intake Total 980 Output Total 50 Balance 930 - Medications Medications: Current Medications Acetaminophen (Tylenol 325mg Tab) 650 mg PO Q4H PRN PRN Reason: temp > 99.5F Last Admin: 09/20/18 22:57 Dose: 650 mg Acetaminophen (Tylenol 325mg Tab) 650 mg PO Q6 PRN PRN Reason: TEMP>=99.5F Last Admin: 09/21/18 22:10 Dose: 650 mg Acetaminophen (Tylenol 650 Mg Supp) 650 mg RC Q6H PRN PRN Reason: TEMP>=99.5F Atorvastatin Calcium (Lipitor) 10 mg PO DIN [facility] Last Admin: 09/21/18 17:22 Dose: 10 mg Calcitriol (Rocaltrol) 0.75 mcg PO TTS [facility] Last Admin: 09/20/18 12:54 Dose: 0.75 mcg Cyproheptadine HCl (Periactin) 4 mg PO BID [facility] Last Admin: 09/21/18 17:20 Dose: 4 mg Ezetimibe (Zetia) 10 mg PO DAILY [facility] Last Admin: 09/21/18 11:15 Dose: 10 mg Famotidine (Pepcid) 40 mg PO HS [facility] Last Admin: 09/21/18 22:09 Dose: 40 mg Potassium Phosphate 30 mmole/ (Dextrose) 260 mls @ 42.5 mls/hr IVPB ONCE ONE Stop: 09/22/18 14:32 Insulin Human Regular (Humulin R Low) 0 units SC ACHS [facility]; Protocol Last Admin: 09/22/18 07:58 Dose: 4 u Lactulose (Enulose) 15 gm PO Q48H [facility] Levalbuterol HCl (Xopenex) 0.63 mg IH [id number] [facility] Last Admin: 09/22/18 07:32 Dose: 0.63 mg Lidocaine (Lidoderm) 1 ea TD DAILY [facility] Last Admin: 09/21/18 10:41 Dose: 1 ea Metoprolol Tartrate (Lopressor) 25 mg PO Q8 [facility] Last Admin: 09/22/18 06:07 Dose: 25 mg Ondansetron HCl (Zofran Inj) 4 mg IVP Q4H PRN PRN Reason: Nausea/Vomiting Pantoprazole Sodium (Protonix Inj) 40 mg IVP DAILY [facility] Last Admin: 09/21/18 10:40 Dose: 40 mg Prednisone (Prednisone Tab) 5 mg PO BRK [facility] Last Admin: 09/22/18 07:59 Dose: Not Given Thiamine HCl (Vitamin B1 Tab) 100 mg PO DAILY [facility] Last Admin: 09/21/18 10:40 Dose: 100 mg - Labs Labs: 09/22/18 06:00 09/22/18 06:00 PT 14.7 SECONDS (9.4-12.5) H 09/22/18 06:00 INR 1.30 09/22/18 06:00 APTT 34.0 Seconds (26.9-38.3) 09/22/18 06:00 Assessment and Plan - Assessment and Plan (Free Text) Assessment: 1) ESRD on HD ([facility]) 2) 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, failed 2018), remains on immunosuppresion 3) Acute GI bleed requiring transfusions 4) Thrombocytopenia, concern for DIC - improved 5) Unrepaired Infra-renal AAA 6) Microcytic anemia 7) Klebsiella bacteremia 8) Failure to thrive 9) Delirium/Sundowning 10) Hx Aortic valve replacement Plan: -ESRD on HD (MWF), pending HD again today with goal of 1L UF removed, if BP tolerates If further transfusion required, recommend doing with HD given persistent R pleural effusion/difficulty removing volume in this pt -Remains off tacrolimus, but remains on prednisone; will taper off after discharge -As per GI, likely stercoral rectal ulcers 2/2 constipation, continue with bowel regimen as per GI CT abd/pelvis notable for extensive diverticulosis, bleeding scan negative, EGD negative for bleed source -Hgb 9.4 this AM, last was 9.5, remains hemodynamically stable, no indication for transfusion at this time Chronic AAA visualized on CT abd/pelvis and Aortogram, no acute intervention currently as per Surgery -Plts improved to 96, Fibrinogen 127; as per Heme-onc, administer Cryo if Fibrinogen < 50 -Intermittently confused/agitated behavior, likely sundowning vs delirium, recommend strict day-night cycle Patient seen and reviewed with attending, Dr. Bennett <Jaxon Bennett S - Last Filed: 09/22/18 15:14> Objective - Vital Signs/Intake and Output Vital Signs (last 24 hours): Temp Pulse Resp BP Pulse Ox 97.7 F 70 18 102/80 96 09/22/18 12:00 09/22/18 13:44 09/22/18 12:00 09/22/18 13:44 09/22/18 06:00 Intake and Output: 09/22/18 09/22/18 06:59 18:59 Intake Total 980 Output Total 50 Balance 930 - Medications Medications: Current Medications Acetaminophen (Tylenol 325mg Tab) 650 mg PO Q4H PRN PRN Reason: temp > 99.5F Last Admin: 09/22/18 13:42 Dose: 650 mg Acetaminophen (Tylenol 325mg Tab) 650 mg PO Q6 PRN PRN Reason: TEMP>=99.5F Last Admin: 09/21/18 22:10 Dose: 650 mg Acetaminophen (Tylenol 650 Mg Supp) 650 mg RC Q6H PRN PRN Reason: TEMP>=99.5F Atorvastatin Calcium (Lipitor) 10 mg PO DIN [facility] Last Admin: 09/21/18 17:22 Dose: 10 mg Calcitriol (Rocaltrol) 0.75 mcg PO TTS [facility] Last Admin: 09/20/18 12:54 Dose: 0.75 mcg Cyproheptadine HCl (Periactin) 4 mg PO BID [facility] Last Admin: 09/22/18 13:46 Dose: 4 mg Ezetimibe (Zetia) 10 mg PO DAILY [facility] Last Admin: 04/15/19 13:44 Dose: 10 mg Famotidine (Pepcid) 40 mg PO HS [facility] Last Admin: 09/21/18 22:09 Dose: 40 mg Insulin Human Regular (Humulin R Low) 0 units SC ACHS [facility]; Protocol Last Admin: 09/22/18 13:46 Dose: Not Given Lactulose (Enulose) 15 gm PO Q48H [place] Levalbuterol HCl (Xopenex) 0.63 mg IH [id number] [facility] Last Admin: 09/22/18 13:27 Dose: Not Given Lidocaine (Lidoderm) 1 ea TD DAILY [facility] Last Admin: 09/22/18 13:46 Dose: 1 ea Metoprolol Tartrate (Lopressor) 25 mg PO Q8 [facility] Last Admin: 09/22/18 13:44 Dose: 25 mg Ondansetron HCl (Zofran Inj) 4 mg IVP Q4H PRN PRN Reason: Nausea/Vomiting Pantoprazole Sodium (Protonix Inj) 40 mg IVP DAILY [facility] Last Admin: 09/22/18 13:42 Dose: 40 mg Prednisone (Prednisone Tab) 5 mg PO BRK [facility] Last Admin: 09/22/18 13:43 Dose: 5 mg Thiamine HCl (Vitamin B1 Tab) 100 mg PO DAILY [facility] Last Admin: 09/22/18 13:44 Dose: 100 mg - Labs Labs: 09/22/18 06:00 09/22/18 06:00 PT 14.7 SECONDS (9.4-12.5) H 09/22/18 06:00 INR 1.30 09/22/18 06:00 APTT 34.0 Seconds (26.9-38.3) 09/22/18 06:00 Assessment and Plan - Assessment and Plan (Free Text) Plan: Pt seen and examined by me. I have reviewed the note of the emergency medical service coordinator and I agree with it. I have discussed the assessment and plan with the resident. I have reviewed the medications and the last labs.
--- NOTE | 2018-09-22 10:43 | CP.PCM.PN ---
Subjective - Date & Time of Evaluation Date of Evaluation: 09/22/18 Time of Evaluation: 10:43 - Subjective Subjective: Patric Hartley PGY2 IM Progress Note for Dr. Knox Patient was seen and examined at bedside. Dr. Knox discussed poor prognosis with son. Patient continues to have bloody BM's. H/H remains stable. Discussed plan with GI resident. Objective - Vital Signs/Intake and Output Vital Signs (last 24 hours): Temp Pulse Resp BP Pulse Ox 98.5 F 87 18 119/83 96 09/22/18 06:00 09/22/18 06:07 09/22/18 06:00 09/22/18 06:07 09/22/18 06:00 Intake and Output: 09/22/18 09/22/18 06:59 18:59 Intake Total 980 Output Total 50 Balance 930 - Medications Medications: Current Medications Acetaminophen (Tylenol 325mg Tab) 650 mg PO Q4H PRN PRN Reason: temp > 99.5F Last Admin: 09/20/18 22:57 Dose: 650 mg Acetaminophen (Tylenol 325mg Tab) 650 mg PO Q6 PRN PRN Reason: TEMP>=99.5F Last Admin: 09/21/18 22:10 Dose: 650 mg Acetaminophen (Tylenol 650 Mg Supp) 650 mg RC Q6H PRN PRN Reason: TEMP>=99.5F Atorvastatin Calcium (Lipitor) 10 mg PO DIN [facility] Last Admin: 09/21/18 17:22 Dose: 10 mg Calcitriol (Rocaltrol) 0.75 mcg PO TTS [facility] Last Admin: 09/20/18 12:54 Dose: 0.75 mcg Cyproheptadine HCl (Periactin) 4 mg PO BID [facility] Last Admin: 09/21/18 17:20 Dose: 4 mg Ezetimibe (Zetia) 10 mg PO DAILY [facility] Last Admin: 09/21/18 11:15 Dose: 10 mg Famotidine (Pepcid) 40 mg PO HS [facility] Last Admin: 09/21/18 22:09 Dose: 40 mg Potassium Phosphate 30 mmole/ (Dextrose) 260 mls @ 42.5 mls/hr IVPB ONCE ONE Stop: 09/22/18 14:32 Insulin Human Regular (Humulin R Low) 0 units SC ACHS [facility]; Protocol Last Admin: 09/22/18 07:58 Dose: 4 u Lactulose (Enulose) 15 gm PO Q48H [facility] Levalbuterol HCl (Xopenex) 0.63 mg IH [id number] [facility] Last Admin: 09/22/18 07:32 Dose: 0.63 mg Lidocaine (Lidoderm) 1 ea TD DAILY [facility] Last Admin: 09/21/18 10:41 Dose: 1 ea Metoprolol Tartrate (Lopressor) 25 mg PO Q8 [facility] Last Admin: 09/22/18 06:07 Dose: 25 mg Ondansetron HCl (Zofran Inj) 4 mg IVP Q4H PRN PRN Reason: Nausea/Vomiting Pantoprazole Sodium (Protonix Inj) 40 mg IVP DAILY [facility] Last Admin: 09/21/18 10:40 Dose: 40 mg Prednisone (Prednisone Tab) 5 mg PO BRK [facility] Last Admin: 09/22/18 07:59 Dose: Not Given Thiamine HCl (Vitamin B1 Tab) 100 mg PO DAILY [facility] Last Admin: 09/21/18 10:40 Dose: 100 mg - Labs Labs: 09/22/18 06:00 09/22/18 06:00 PT 14.7 SECONDS (9.4-12.5) H 09/22/18 06:00 INR 1.30 09/22/18 06:00 APTT 34.0 Seconds (26.9-38.3) 09/22/18 06:00 - Constitutional Appears: Non-toxic, No Acute Distress, Cachectic, Chronically Ill - Head Exam Head Exam: ATRAUMATIC, NORMAL INSPECTION - Eye Exam Eye Exam: Normal appearance, PERRL - ENT Exam ENT Exam: Mucous Membranes Dry, Normal Exam - Neck Exam Neck Exam: Full ROM, Normal Inspection - Respiratory Exam Respiratory Exam: NORMAL BREATHING PATTERN. absent: Respiratory Distress - Cardiovascular Exam Cardiovascular Exam: RRR, +S1, +S2, Murmur. absent: Tachycardia - GI/Abdominal Exam GI & Abdominal Exam: Soft, Normal Bowel Sounds. absent: Distended, Guarding, Tenderness - Extremities Exam Extremities Exam: Full ROM. absent: Pedal Edema Additional Comments: LUE AVF +thrill +bruit - Neurological Exam Neurological Exam: Alert, Awake, Oriented x3 - Skin Skin Exam: Normal Color, Warm Assessment and Plan - Assessment and Plan (Free Text) Assessment: 67 year old male with a PMH of ADPKD s/p renal allograft (2006), ESRD on HD MWF, DM2, HTN, severe , and unrepaired infrarenal AAA who is being admitted for hematochezia while in the TCU. Bleeding scan showed no active bleeding, and CTA abd/pelvis showed chronic dissection of abdominal aorta, patent celiac and SMA, large aneurysm extending into pelvis (7.8x9.2 cm) and no evidence of aortic fistula. Post EGD and flex-sig that showed no esophageal/gastric cause of blee ding but was positive for brown stools with stercoral ulcerations. Plan: 1. GI bleeding, likely 2/2 stercoral ulcerations - cont lactulose daily per GI recs; decreased dose due to ongoing diarrhea - cont protonix daily for GI ppx - GI is consulted, recs appreciated - transfused 3u pRBC, 1u FFP and 3u platelets in total - advance diet per GI recs; currently advanced to soft renal diet - will obtain CT abd/pelvis per GI recs; will time w/ HD session 2. ESRD - MWF HD at home; plan for HD today - Nephrology consulted, recs appreciated - US reviewed showing chronic aneurysm w/ no signs of abscess 3. Anemia - likely multifactorial due to active bleeding and chronic anemia due to ESRD/iron deficiency and chronic inflammation - Heme/Onc consulted, recs appreciated - will continue transfusing to keep Hgb > 7 4. Thrombocytopenia - likely due to DIC - Heme/Onc consulted - peripheral smear reviewed by pathologist: decreased platelets with no clumping - s/p 3u pRBCs, 1u FFP and 3u platelets - DIC heme studies reviewed 5. ADPKD - Prograft at home; currently held - Heme/Onc consulted, recs appreciated - Nephrology consulted, recs appreciated - cont HD per Nephro 6. UTI bactermia 2/2 klebsiella - SUHAIL was negative - cont Rocephin - Abx per ID, recs appreciated 7. PPX - Protonix for GI ppx - SCDs for DVT ppx Further recs per Dr. Knox Case was reviewed and discussed with Dr. Knox
--- NOTE | 2018-09-22 13:44 | PN ---
DATE: 09/22/2018 CARDIOLOGY FOLLOWUP SUBJECTIVE: The patient is in no acute distress. Blood pressure is 119/83, the heart rates in the 80s. Physical exam is unchanged. LABORATORY DATA: Hemoglobin is 9.4, BUN and creatinine are 44 and 2.4 with a glucose of 238. IMPRESSION 1. End-stage renal disease. 2. Status post gastrointestinal bleed. 3. Aortic valve sclerosis. 4. History of abdominal aortic aneurysm. 5. Diabetes mellitus. 6. Anemia. PLAN: Given these findings, we the patient for dialysis today. Carlos Shane MD
[2018-09-22] MEDS: Lidocaine 5% Patch TD SCH (13:46)
--- NOTE | 2018-09-22 16:37 | PN ---
DATE: 09/22/2018 SUBJECTIVE: The patient is still in room 277, bed 2. Overnight nurse's notes over the weekend, the events were noted. The patient was seen by Dr. Marlon Joaquin over the weekend both Saturday and Saturday. Last 24 hours' events were noted. The patient had recurrent episodes of bloody bowel movement, though hemoglobin seems to be around 9 g. Overnight nurse's notes were reviewed. PHYSICAL EXAMINATION VITAL SIGNS: T-max 98.5. Telemetry normal sinus rhythm, heart rate 87, blood pressure 119/83, respirations 18, O2 sat 96%. HEENT: Head: Normocephalic, atraumatic. HEENT examination shows positive facial muscle wasting and cachexia, pale conjunctivae. Anicteric sclerae. No oropharyngeal lesion. NECK: No neck rigidity. CHEST: Kyphosis. Positive median sternotomy surgical scar, questionable decreased breath sounds at the bases. CARDIOVASCULAR: S1, S2, regular rhythm. Positive systolic murmur left sternal border, right second intercostal space, left second intercostal space. ABDOMEN: Soft, positive bowel sounds, positive midline pulsation of the aortic aneurysm. GENITALIA: Male, positive right femoral triple-lumen catheter noted. Lower extremity shows no pitting edema, no calf tenderness, no Homans' sign. NEUROLOGIC: The patient is alert, awake, responsive. MUSCULOSKELETAL: Shows cachexia and decreased muscle mass. Gait examination is not tested. DIAGNOSTICS: 09/22/2018; WBC 9.9, hemoglobin and hematocrit 31.5, platelets 96,000, 80% segs. PT 14.7, PTT 34, fibrinogen 127. Sodium 136, potassium 3.7, chloride 105, CO2 of 26, BUN 44, creatinine 2.4, glucose 236, calcium 8.3, phosphorus 1.7, magnesium 1.8, alk phos 150, total protein 5.3, albumin 2.3. The patient's chest x-ray, pleural effusion, elevated right hemidiaphragm, cardiomegaly. The patient has received packed red blood cell x3, FFP x1, and platelet infusion x3. IMPRESSION 1. Recurrent lower gastrointestinal bleeding with bloody bowel movement, still awaiting further GI recommendations. 2. Acute blood loss anemia with decreasing hemoglobin and hematocrit and thrombocytopenia and granulocytosis. 3. Status post packed red blood cell transfusion x3 and fresh frozen plasma transfusion x1, and platelet transfusion x3. 4. Coagulopathy. 5. Hypofibrinogenemia. 6. Uncontrolled insulin-requiring diabetes mellitus with hyperglycemia and elevated hemoglobin A1c. 7. End-stage renal disease, hemodialysis dependent 3 times a week. 8. Left upper extremity arteriovenous fistula. 9. Hypophosphatemia. 10. Mild protein malnutrition. 11. Hypoalbuminemia. 12. Bilateral pleural effusion. 13. Elevated right hemidiaphragm. 14. Cardiomegaly. 15. Recurrent gastrointestinal bleeding. 16. Disseminated intravascular coagulation. 17. Thrombocytopenia. 18. Klebsiella pneumoniae urinary tract infection and bacteremia. 19. Status post flexible sigmoidoscopy and esophagogastroduodenoscopy. 20. Rectal stercoral ulcer. 21. Gastritis. 22. Duodenal diverticulum. 23. Questionable and possible right lower lobe pneumonia consolidation, atelectasis. 24. Severe cachexia. 25. Deconditioning. 26. Gait dysfunction. 27. Status post renal transplant and end-stage renal disease, hemodialysis dependent at present. 28. Transplanted kidney hydronephrosis. 29. Episodic confusion. 30. Delirium. 31. Toxic metabolic encephalopathy. PLAN: At this time, the patient has been ordered serial labs. We are still awaiting definite treatment recommendation from the Gastroenterology. The patient has been on consult with the Nephrology, Cardiology, Infectious Disease. The patient is to be continued on the therapeutic intervention as per the MAR of today. The patient has been ordered serial labs. The patient will be continued on hemodialysis 3 times a week as per Nephrology recommendation. The patient has been ordered out of bed to chair, physical therapy, occupational therapy, ambulation therapy, gait training. Overall the patient's prognosis is guarded to poor, which the patient and the family is aware of. Dictated and electronically signed, not read. Mart Knox MD
--- NOTE | 2018-09-22 18:24 | CP.PCM.PN ---
<Ginger Daniel - Last Filed: 09/22/18 18:20> Subjective - Date & Time of Evaluation Date of Evaluation: 09/22/18 Time of Evaluation: 18:20 - Subjective Subjective: Ginger Daniel, PGY2, GI Progress Note for Dr Cordova: Patient seen and examined at bedside. Patient had 3 liquidy pasty jaiden colored BMs within past 24 hrs. Patient denies abdominal pain, nausea, vomiting, fevers. Tolerating soft diet. Reports good appetite. Objective - Vital Signs/Intake and Output Vital Signs (last 24 hours): Temp Pulse Resp BP Pulse Ox 98.8 F 83 18 107/70 96 09/22/18 18:00 09/22/18 18:00 09/22/18 18:00 09/22/18 18:00 09/22/18 06:00 Intake and Output: 09/22/18 09/22/18 06:59 18:59 Intake Total 980 Output Total 50 Balance 930 - Medications Medications: Current Medications Acetaminophen (Tylenol 325mg Tab) 650 mg PO Q4H PRN PRN Reason: temp > 99.5F Last Admin: 09/22/18 13:42 Dose: 650 mg Acetaminophen (Tylenol 325mg Tab) 650 mg PO Q6 PRN PRN Reason: TEMP>=99.5F Last Admin: 09/21/18 22:10 Dose: 650 mg Acetaminophen (Tylenol 650 Mg Supp) 650 mg RC Q6H PRN PRN Reason: TEMP>=99.5F Atorvastatin Calcium (Lipitor) 10 mg PO DIN [facility] Last Admin: 09/21/18 17:22 Dose: 10 mg Calcitriol (Rocaltrol) 0.75 mcg PO TTS [facility] Last Admin: 09/20/18 12:54 Dose: 0.75 mcg Cyproheptadine HCl (Periactin) 4 mg PO BID [facility] Last Admin: 09/22/18 13:46 Dose: 4 mg Ezetimibe (Zetia) 10 mg PO DAILY [facility] Last Admin: 09/22/18 13:44 Dose: 10 mg Famotidine (Pepcid) 40 mg PO HS [facility] Last Admin: 09/21/18 22:09 Dose: 40 mg Insulin Human Regular (Humulin R Low) 0 units SC ACHS [facility]; Protocol Last Admin: 09/22/18 13:46 Dose: Not Given Lactulose (Enulose) 15 gm PO Q48H [facility] Levalbuterol HCl (Xopenex) 0.63 mg IH [id number] [facility] Last Admin: 09/22/18 13:27 Dose: Not Given Lidocaine (Lidoderm) 1 ea TD DAILY [facility] Last Admin: 09/22/18 13:46 Dose: 1 ea Metoprolol Tartrate (Lopressor) 25 mg PO Q8 [facility] Last Admin: 09/22/18 13:44 Dose: 25 mg Ondansetron HCl (Zofran Inj) 4 mg IVP Q4H PRN PRN Reason: Nausea/Vomiting Pantoprazole Sodium (Protonix Inj) 40 mg IVP DAILY [facility] Last Admin: 09/22/18 13:42 Dose: 40 mg Prednisone (Prednisone Tab) 5 mg PO BRK [facility] Last Admin: 09/22/18 13:43 Dose: 5 mg Thiamine HCl (Vitamin B1 Tab) 100 mg PO DAILY [facility] Last Admin: 09/22/18 13:44 Dose: 100 mg - Labs Labs: 09/22/18 06:00 09/22/18 06:00 PT 14.7 SECONDS (9.4-12.5) H 09/22/18 06:00 INR 1.30 09/22/18 06:00 APTT 34.0 Seconds (26.9-38.3) 09/22/18 06:00 - Additional Findings Additional findings: - Constitutional Appears: Non-toxic, Cachectic, Chronically Ill - Head Exam Head Exam: ATRAUMATIC, NORMOCEPHALIC - Eye Exam Eye Exam: EOMI, PERRL. absent: Conjunctival injection, Nystagmus, Scleral icterus Pupil Exam: NORMAL ACCOMODATION, PERRL. absent: Irregular, Miosis, Unequal - ENT Exam ENT Exam: Mucous Membranes Moist - Neck Exam Neck exam: Positive for: Full Rom - Respiratory Exam Respiratory Exam: Clear to Auscultation Bilateral, NORMAL BREATHING PATTERN. absent: Accessory Muscle Use, Rhonchi, Wheezes - Cardiovascular Exam Cardiovascular Exam: RRR, +S1, +S2, Systolic Murmur - GI/Abdominal Exam GI & Abdominal Exam: Normal Bowel Sounds, Soft. absent: Distended, Firm, Rebound, Rigid - Extremities Exam Extremities exam: Positive for: normal inspection. Negative for: calf tenderness, pedal edema - Back Exam Back exam: NORMAL INSPECTION - Neurological Exam Neurological exam: Alert, Oriented x3 - Psychiatric Exam Psychiatric exam: Normal Affect, Normal Mood - Skin Skin Exam: Normal Color, Warm Assessment and Plan - Assessment and Plan (Free Text) Assessment: # GI bleed, 2/2 stercoral ulcerations 2/2 chronic constipation # Microcytic anemia # Thrombocytopenia # Klebsiella Bacteremia 2/2 UTI # Polycystic Kidney disease s/p right renal allograft # ESRD on HD MWF # HTN # Severe Aortic Stenosis with hx of prior AV replacement (not candidate for TAVR as of 2018) # unrepaired large infrarenal AAA - CT abd pelvis w/o contrast: extensive diverticulosis. abdominal/pelvic ascites. No free air. Heterogenous appearance of liver with innumerable hypodensities, possibly tiny cysts or hemangiomas. Ill denied hypodense region within hepatic dome spanning 16 x 10 mm. - bleeding scan negative - angio of abd with contrast negative for any aortic fistula - s/p 1 unit FFP, platelets, 3 units prbcs - Hgb remains stable. Will continue to monitor closely. - EGD 09/16 showed no bleeding source. Flex sigmoidoscopy showed multiple ulcers in rectum, likely stercoral ulcerations. The endoscope was advanced all the way up to 30 cm, no blood was noticed in the sigmoid. Brown stool noticed. - Recommend CAT abd pelvis with PO contrast, will discuss with nephrology if okay to give, likely time it with dialysis - Continue with bowel regimen. Prevent constipation. - continue with renal, low carb consistent soft diet - further recs per Dr Cordova. Case seen and discussed with Dr Cordova. <Mac Cordova V - Last Filed: 09/22/18 23:52> Objective - Vital Signs/Intake and Output Vital Signs (last 24 hours): Temp Pulse Resp BP Pulse Ox 98.8 F 92 H 18 100/60 96 09/22/18 18:00 09/22/18 23:22 09/22/18 18:00 09/22/18 23:22 09/22/18 06:00 Intake and Output: 09/22/18 09/23/18 18:59 06:59 Intake Total 480 Output Total 2 Balance 478 - Medications Medications: Current Medications Acetaminophen (Tylenol 325mg Tab) 650 mg PO Q4H PRN PRN Reason: temp > 99.5F Last Admin: 09/22/18 13:42 Dose: 650 mg Acetaminophen (Tylenol 325mg Tab) 650 mg PO Q6 PRN PRN Reason: TEMP>=99.5F Last Admin: 09/21/18 22:10 Dose: 650 mg Acetaminophen (Tylenol 650 Mg Supp) 650 mg RC Q6H PRN PRN Reason: TEMP>=99.5F Atorvastatin Calcium (Lipitor) 10 mg PO DIN [facility] Last Admin: 09/22/18 18:33 Dose: 10 mg Calcitriol (Rocaltrol) 0.75 mcg PO TTS [facility] Last Admin: 09/20/18 12:54 Dose: 0.75 mcg Cyproheptadine HCl (Periactin) 4 mg PO BID [facility] Last Admin: 09/22/18 18:33 Dose: 4 mg Ezetimibe (Zetia) 10 mg PO DAILY [facility] Last Admin: 09/22/18 13:44 Dose: 10 mg Famotidine (Pepcid) 40 mg PO HS [facility] Last Admin: 09/22/18 23:23 Dose: 40 mg Insulin Human Regular (Humulin R Low) 0 units SC ACHS [facility]; Protocol Last Admin: 09/22/18 23:20 Dose: 2 u Lactulose (Enulose) 15 gm PO Q48H [facility] Levalbuterol HCl (Xopenex) 0.63 mg IH [id number] [facility] Last Admin: 09/22/18 20:02 Dose: Not Given Lidocaine (Lidoderm) 1 ea TD DAILY [facility] Last Admin: 09/22/18 13:46 Dose: 1 ea Metoprolol Tartrate (Lopressor) 25 mg PO Q8 [facility] Last Admin: 09/22/18 23:22 Dose: Not Given Ondansetron HCl (Zofran Inj) 4 mg IVP Q4H PRN PRN Reason: Nausea/Vomiting Pantoprazole Sodium (Protonix Inj) 40 mg IVP DAILY [facility] Last Admin: 09/22/18 13:42 Dose: 40 mg Prednisone (Prednisone Tab) 5 mg PO BRK [facility] Last Admin: 09/22/18 13:43 Dose: 5 mg Thiamine HCl (Vitamin B1 Tab) 100 mg PO DAILY [facility] Last Admin: 09/22/18 13:44 Dose: 100 mg - Labs Labs: 09/22/18 06:00 09/22/18 06:00 PT 14.7 SECONDS (9.4-12.5) H 09/22/18 06:00 INR 1.30 09/22/18 06:00 APTT 34.0 Seconds (26.9-38.3) 09/22/18 06:00 Attending/Attestation - Attestation I have personally seen and examined this patient.: Yes I have fully participated in the care of the patient.: Yes I have reviewed all pertinent clinical information, including history, physical exam and plan: Yes Notes (Text): p 09/22/18 23:52
--- NOTE | 2018-09-22 19:58 | CP.PCM.PN ---
Subjective - Date & Time of Evaluation Date of Evaluation: 09/22/18 Time of Evaluation: 08:35 - Subjective Subjective: No fevers, not in distress. Objective - Vital Signs/Intake and Output Vital Signs (last 24 hours): Temp Pulse Resp BP Pulse Ox 98.9 F 86 20 98/64 L 95 09/21/18 18:00 09/21/18 22:05 09/21/18 18:00 09/21/18 22:05 09/21/18 18:00 Intake and Output: 09/21/18 09/22/18 18:59 06:59 Intake Total 1140 Output Total 100 Balance 1040 - Medications Medications: Current Medications Acetaminophen (Tylenol 325mg Tab) 650 mg PO Q4H PRN PRN Reason: temp > 99.5F Last Admin: 09/20/18 22:57 Dose: 650 mg Acetaminophen (Tylenol 325mg Tab) 650 mg PO Q6 PRN PRN Reason: TEMP>=99.5F Last Admin: 09/21/18 22:10 Dose: 650 mg Acetaminophen (Tylenol 650 Mg Supp) 650 mg RC Q6H PRN PRN Reason: TEMP>=99.5F Atorvastatin Calcium (Lipitor) 10 mg PO DIN [facility] Last Admin: 09/21/18 17:22 Dose: 10 mg Calcitriol (Rocaltrol) 0.75 mcg PO TTS [facility] Last Admin: 09/20/18 12:54 Dose: 0.75 mcg Cyproheptadine HCl (Periactin) 4 mg PO BID [facility] Last Admin: 09/21/18 17:20 Dose: 4 mg Darbepoetin Wilmar (Aranesp) 100 mcg IVP ONCE ONE Stop: 09/22/18 10:01 Ezetimibe (Zetia) 10 mg PO DAILY [facility] Last Admin: 09/21/18 11:15 Dose: 10 mg Famotidine (Pepcid) 40 mg PO HS [facility] Last Admin: 09/21/18 22:09 Dose: 40 mg Insulin Human Regular (Humulin R Low) 0 units SC ACHS [facility]; Protocol Last Admin: 09/21/18 22:04 Dose: Not Given Lactulose (Enulose) 15 gm PO DAILY [facility] Last Admin: 09/21/18 10:41 Dose: 15 gm Levalbuterol HCl (Xopenex) 0.63 mg IH [id number] [facility] Last Admin: 09/21/18 20:51 Dose: 0.63 mg Lidocaine (Lidoderm) 1 ea TD DAILY [facility] Last Admin: 09/21/18 10:41 Dose: 1 ea Metoprolol Tartrate (Lopressor) 25 mg PO Q8 [facility] Last Admin: 09/21/18 22:05 Dose: Not Given Ondansetron HCl (Zofran Inj) 4 mg IVP Q4H PRN PRN Reason: Nausea/Vomiting Pantoprazole Sodium (Protonix Inj) 40 mg IVP DAILY [facility] Last Admin: 09/21/18 10:40 Dose: 40 mg Prednisone (Prednisone Tab) 5 mg PO BRK [facility] Last Admin: 09/21/18 10:41 Dose: 5 mg Thiamine HCl (Vitamin B1 Tab) 100 mg PO DAILY [facility] Last Admin: 09/21/18 10:40 Dose: 100 mg - Labs Labs: 09/21/18 17:00 09/21/18 06:00 PT 14.5 SECONDS (9.4-12.5) H 09/21/18 06:00 INR 1.28 09/21/18 06:00 APTT 33.1 Seconds (26.9-38.3) 09/21/18 06:00 - Constitutional Appears: Chronically Ill - Head Exam Head Exam: NORMAL INSPECTION - Respiratory Exam Respiratory Exam: Decreased Breath Sounds - Cardiovascular Exam Cardiovascular Exam: +S1, +S2 - GI/Abdominal Exam GI & Abdominal Exam: Soft. absent: Tenderness Assessment and Plan - Assessment and Plan (Free Text) Plan: Assessment S/P treatment for Klebsiella bacteremia probably due to UTI, SUHAIL negative for valvular vegetations history of systemic inflammatory response syndrome, consider due to worsening renal failure with uremia, R/O sepsis due to right sided HCAP history of sepsis due to gram negative bacilli bacteremia on top of systemic viral illness with Influenza polycystic kidney disease S/P renal transplant in 2006 HTN abdominal aortic aneurysm with history of aortic dissection S/P aortic valve replacement dyslipidemia S/P bilateral inguinal hernia repair Plan S/P course of Rocephin will continue to monitor clinically off antibiotics since he is at risk for nosocomial infections
--- NOTE | 2018-09-22 20:57 | PN ---
DATE: 09/22/2018 The patient was seen and examined. I do agree with the note of the medical technologist chief. I was involved with the plan of care. This is coverage for Dr. Wheeler. The patient has end-stage renal disease, on hemodialysis. He is going for hemodialysis today. The patient is off his tacrolimus. He is continuing on his steroids. He has thrombocytopenia. We will continue to follow his CBC. He has malnutrition with a BMI of 14. He has a history of polycystic kidney disease. The patient is on Aranesp for his anemia. He is receiving Lipitor for dyslipidemia. The patient is on calcitriol for secondary hyperparathyroidism. Jaxon Bennett MD
[2018-09-23] MEDS: Levalbuterol 0.63 MG/3 ML Inhal Soln UD IH SCH ×4 (01:20→19:36)
[2018-09-23 06:50] LABS: BASO # 0.02 K/mm3 (0.0-2.0); BASO % 0.2 % (0.0-3.0); EOS % 0.3 % (1.5-5.0); HEMOGLOBIN 9.2 g/dL (14.0-18.0); LYMPH # 1.1 (1.2-3.4); LYMPH % 11.7 % (22.0-35.0); MEAN CELL VOLUME 83.6 fl (80.0-105.0); MEAN CORPUSCULAR HEMOGLOBIN 25.2 pg (25.0-35.0); MEAN CORPUSCULAR HGB CONC 30.2 g/dl (31.0-37.0); MEAN PLATELET VOLUME 10.5 fl (7.0-11.0); MONO # 0.6 (0.1-0.6); MONO % 6.4 % (1.0-6.0); RBC 3.65 10^6/uL (3.5-6.1); RED CELL DISTRIBUTION WIDTH 20.3 % (11.5-14.5)
[2018-09-23 07:00] LABS: INR 1.27; PARTIAL THROMBOPLASTIN TIME 36.4 Seconds (26.9-38.3); PROTHROMBIN TIME 14.4 SECONDS (9.4-12.5)
[2018-09-23 07:20] LABS: ALB/GLOB RATIO 0.7 (1.1-1.8); ALBUMIN 2.3 g/dL (3.0-4.8); BILIRUBIN,DIRECT 0.4 mg/dL (0.0-0.4)
[2018-09-23] MEDS: Insulin Reg-LOW-Coverage SC SCH ×4 (08:05→22:19)
--- NOTE | 2018-09-23 11:01 | CP.PCM.PN ---
<Rosemary Melton - Last Filed: 09/23/18 11:01> Subjective - Date & Time of Evaluation Date of Evaluation: 09/23/18 Time of Evaluation: 10:58 - Subjective Subjective: Gastroenterology Fellow/PGY6 Progress Note Patient easily arousable. Denies abdominal or rectal pain. No bowel movement yesterday Tolerating diet. A 12-point review of systems negative except for as above. Objective - Vital Signs/Intake and Output Vital Signs (last 24 hours): Temp Pulse Resp BP Pulse Ox 97.0 F L 100 H 20 121/86 96 09/23/18 06:00 09/23/18 06:00 09/23/18 06:00 09/23/18 06:00 09/22/18 06:00 Intake and Output: 09/23/18 09/23/18 06:59 18:59 Intake Total 420 Balance 420 - Medications Medications: Current Medications Acetaminophen (Tylenol 325mg Tab) 650 mg PO Q4H PRN PRN Reason: temp > 99.5F Last Admin: 09/22/18 13:42 Dose: 650 mg Acetaminophen (Tylenol 325mg Tab) 650 mg PO Q6 PRN PRN Reason: TEMP>=99.5F Last Admin: 09/21/18 22:10 Dose: 650 mg Acetaminophen (Tylenol 650 Mg Supp) 650 mg RC Q6H PRN PRN Reason: TEMP>=99.5F Atorvastatin Calcium (Lipitor) 10 mg PO DIN [facility] Last Admin: 09/22/18 18:33 Dose: 10 mg Calcitriol (Rocaltrol) 0.75 mcg PO TTS [facility] Last Admin: 09/20/18 12:54 Dose: 0.75 mcg Cyproheptadine HCl (Periactin) 4 mg PO BID [facility] Last Admin: 09/22/18 18:33 Dose: 4 mg Ezetimibe (Zetia) 10 mg PO DAILY [facility] Last Admin: 09/22/18 13:44 Dose: 10 mg Famotidine (Pepcid) 40 mg PO HS [facility] Last Admin: 09/22/18 23:23 Dose: 40 mg Insulin Human Regular (Humulin R Low) 0 units SC ACHS [facility]; Protocol Last Admin: 09/22/18 23:20 Dose: 2 u Lactulose (Enulose) 15 gm PO Q48H [facility] Levalbuterol HCl (Xopenex) 0.63 mg IH [id number] [facility] Last Admin: 09/23/18 08:38 Dose: 0.63 mg Lidocaine (Lidoderm) 1 ea TD DAILY [facility] Last Admin: 09/22/18 13:46 Dose: 1 ea Metoprolol Tartrate (Lopressor) 25 mg PO Q8 [facility] Last Admin: 09/22/18 23:22 Dose: Not Given Ondansetron HCl (Zofran Inj) 4 mg IVP Q4H PRN PRN Reason: Nausea/Vomiting Pantoprazole Sodium (Protonix Inj) 40 mg IVP DAILY [facility] Last Admin: 09/22/18 13:42 Dose: 40 mg Prednisone (Prednisone Tab) 5 mg PO BRK [facility] Last Admin: 09/22/18 13:43 Dose: 5 mg Thiamine HCl (Vitamin B1 Tab) 100 mg PO DAILY [facility] Last Admin: 09/22/18 13:44 Dose: 100 mg - Labs Labs: 09/23/18 06:30 09/23/18 06:30 PT 14.4 SECONDS (9.4-12.5) H 09/23/18 06:30 INR 1.27 09/23/18 06:30 APTT 36.4 Seconds (26.9-38.3) 09/23/18 06:30 - Constitutional Appears: Non-toxic, No Acute Distress, Cachectic, Chronically Ill - Head Exam Head Exam: ATRAUMATIC, NORMOCEPHALIC - Eye Exam Eye Exam: EOMI, PERRL. absent: Scleral icterus Pupil Exam: PERRL. absent: Miosis, Mydriatic - ENT Exam ENT Exam: Mucous Membranes Moist, Normal Oropharynx - Neck Exam Neck Exam: Full ROM, Normal Inspection - Respiratory Exam Respiratory Exam: Clear to Ausculation Bilateral. absent: Rales, Rhonchi, Wheezes - Cardiovascular Exam Cardiovascular Exam: RRR, +S1, +S2. absent: Gallop, Rubs - GI/Abdominal Exam GI & Abdominal Exam: Soft, Normal Bowel Sounds. absent: Distended, Firm, Guarding, Rigid, Tenderness, Organomegaly, Rebound - Extremities Exam Extremities Exam: absent: Pedal Edema - Neurological Exam Neurological Exam: Alert, Awake - Psychiatric Exam Psychiatric exam: Normal Affect, Normal Mood - Skin Skin Exam: Dry, Intact, Normal Color, Warm Assessment and Plan - Assessment and Plan (Free Text) Assessment: 67 year old male with PMH of unrepaired large infrarenal AAA, Polycystic Kidney disease s/p right renal allograft 2006, ESRD on HD MWF, severe s/p AVR, HTN, and HLD presenting with maroon stools. Active treatment of H/H monitoring in setting GI bleed due to rectal stercoral ulcers 2/2 constipation and status post antibiotic course for Klebsiella bacteremia 2/2 UTI/ HCAP. Plan: -H/H stable -no bowel movement yesterday -continue Lactulose Q48H -will consider repeat CT A/P PO contrast if rectal bleeding reoccurs -tolerating renal diet -will follow clinical course <Mac Cordova V - Last Filed: 09/23/18 23:54> Objective - Vital Signs/Intake and Output Vital Signs (last 24 hours): Temp Pulse Resp BP Pulse Ox 97.8 F 64 19 124/80 96 09/23/18 18:00 09/23/18 22:20 09/23/18 18:00 09/23/18 22:20 09/22/18 06:00 Intake and Output: 09/23/18 09/24/18 18:59 06:59 Intake Total 720 Output Total 420 Balance 300 - Medications Medications: Current Medications Acetaminophen (Tylenol 325mg Tab) 650 mg PO Q4H PRN PRN Reason: temp > 99.5F Last Admin: 09/22/18 13:42 Dose: 650 mg Acetaminophen (Tylenol 325mg Tab) 650 mg PO Q6 PRN PRN Reason: TEMP>=99.5F Last Admin: 09/21/18 22:10 Dose: 650 mg Acetaminophen (Tylenol 650 Mg Supp) 650 mg RC Q6H PRN PRN Reason: TEMP>=99.5F Atorvastatin Calcium (Lipitor) 10 mg PO DIN [facility] Last Admin: 09/23/18 18:15 Dose: 10 mg Calcitriol (Rocaltrol) 0.75 mcg PO TTS [facility] Last Admin: 09/23/18 11:24 Dose: 0.75 mcg Cyproheptadine HCl (Periactin) 4 mg PO BID [facility] Last Admin: 09/23/18 18:15 Dose: 4 mg Ezetimibe (Zetia) 10 mg PO DAILY [facility] Last Admin: 09/23/18 11:24 Dose: 10 mg Famotidine (Pepcid) 40 mg PO HS [facility] Last Admin: 09/23/18 22:20 Dose: 40 mg Insulin Human Regular (Humulin R Low) 0 units SC ACHS [facility]; Protocol Last Admin: 09/23/18 22:19 Dose: 2 u Lactulose (Enulose) 15 gm PO Q48H [facility] Last Admin: 09/23/18 08:30 Dose: Not Given Levalbuterol HCl (Xopenex) 0.63 mg IH [id number] [facility] Last Admin: 09/23/18 19:36 Dose: 0.63 mg Lidocaine (Lidoderm) 1 ea TD DAILY [facility] Last Admin: 09/23/18 11:30 Dose: Not Given Metoprolol Tartrate (Lopressor) 25 mg PO Q8 [facility] Last Admin: 09/23/18 22:20 Dose: 25 mg Ondansetron HCl (Zofran Inj) 4 mg IVP Q4H PRN PRN Reason: Nausea/Vomiting Pantoprazole Sodium (Protonix Inj) 40 mg IVP DAILY [facility] Last Admin: 09/23/18 11:25 Dose: 40 mg Prednisone (Prednisone Tab) 5 mg PO BRK [facility] Last Admin: 09/23/18 11:24 Dose: 5 mg Thiamine HCl (Vitamin B1 Tab) 100 mg PO DAILY [facility] Last Admin: 09/23/18 11:32 Dose: 100 mg - Labs Labs: 09/23/18 06:30 09/23/18 06:30 PT 14.4 SECONDS (9.4-12.5) H 09/23/18 06:30 INR 1.27 09/23/18 06:30 APTT 36.4 Seconds (26.9-38.3) 09/23/18 06:30 Attending/Attestation - Attestation I have personally seen and examined this patient.: Yes I have fully participated in the care of the patient.: Yes I have reviewed all pertinent clinical information, including history, physical exam and plan: Yes Notes (Text): This patient was seen and evaluated along with the GI fellow earlier this is an addendum to the progress note dictated by the fellow. Patient is scheduled for dialysis tomorrow. No further episodes of significant bleeding. We will consider would order the CT with the Po contrast only to be done in the a.m. Patient has a very large a AAA Flexible sigmoidoscopy done earlier showed charcoal ulcerations in the rectum Continue laxatives to keep the bowel movements 1-2/day Overall prognosis for this patient for long-term remains poor 09/23/18 23:50
[2018-09-23] MEDS: Lidocaine 5% Patch TD SCH (11:30)
[2018-09-23] MEDS ORDERED: Lidocaine PF 2% (5 ml) Inj (For Cardiac Arrhy) ONE (14:38)
--- NOTE | 2018-09-23 15:11 | PN ---
DATE: 09/23/2018 SUBJECTIVE: The patient is seen in room 277, bed 2. The patient is lying in the bed. The patient is alert, awake, responsive. Overnight nurse's notes were reviewed. The patient had periodic episodic confusion. The patient was attempted to have multiple attempts for lab nurse PICC line attempt which was unsuccessful yesterday. Yesterday, the patient had a large bowel movement with scant amount of blood according to the nurse's notes. PHYSICAL EXAMINATION: VITAL SIGNS: T-max 98.4. Telemetry shows sinus rhythm, heart rate 96 and 92, blood pressure 120/79, respiration 19, O2 sat is 96% to 98%. HEENT: Head examination normocephalic, atraumatic. HEENT examination shows positive facial muscle wasting. Positive cachexia, pinkish pale conjunctivae. Anicteric sclerae. No oropharyngeal lesion. No neck rigidity. CHEST: Examination shows median sternotomy surgical scar. LUNGS: Examination shows questionable decreased breath sound at the bases. CARDIOVASCULAR: Shows S1, S2, regular rhythm. Questionable soft systolic murmur at left sternal border, right second intercostal space, left second intercostal space. ABDOMEN: Soft, positive midline pulsation of abdominal aortic aneurysm. GENITALIA: Male, positive right femoral triple-lumen catheter. EXTREMITIES: Lower extremity shows no pitting edema. Left upper extremity AV fistula, positive thrill. MUSCULOSKELETAL: Examination shows a body mass index of 14.3. NEUROLOGIC: The patient is alert, awake, responsive, follows simple commands. Gait examination not tested. DIAGNOSTICS: 09/23/2018, WBC 9, hemoglobin and hematocrit 9.2 and 30.5, platelet 131, manual platelet count. PT 14.4, INR 1.27, PTT 36, fibrinogen level yesterday 127. Sodium 143, potassium 3.9, chloride 110, CO2 of 28, anion gap 8, BUN 29, creatinine 1.6, GFR 53. Fingerstick blood sugar 142, 136, 303, 236, 329, random glucose 90, calcium 8, phosphorus 2.3, magnesium 1.7, alk phos 155, total protein 5.5, albumin 2.3. Microbiology, MRSA blood cultures negative. IMPRESSION: 1. Tachycardia. 2. Hypertension. 3. Leukocytosis. 4. Normocytic anemia. 5. Thrombocytopenia. 6. Granulocytosis. 7. Status post packed red blood cell transfusion x3, fresh frozen plasma transfusion x1, and platelet transfusion x3. 8. Mild coagulopathy with hypofibrinogenemia and disseminated intravascular coagulation. 9. Lactic acidosis. 10. Insulin-requiring diabetes mellitus with hyperglycemia. 11. End-stage renal disease, hemodialysis dependent three times a week via the left upper extremity arteriovenous fistula. 12. Mild protein malnutrition and hypoalbuminemia. 13. Cachexia. 14. Proteinuria, glycosuria, pyuria. 15. Klebsiella pneumoniae bacteremia, sepsis, and Klebsiella pneumoniae urinary tract infection. 16. Status post esophagogastroduodenoscopy and flexible sigmoidoscopy. 17. Duodenal diverticulum. 18. Rectal ulceration. 19. Right lower lobe pneumonia, infiltrate, atelectasis and elevated right hemidiaphragm. 20. Cardiomegaly. 21. Status post aortic valve replacement. 22. Large infrarenal abdominal aortic aneurysm. 23. Left upper extremity arteriovenous fistula with focal aneurysmal dilatation. 24. Left sphenoid sinus dense opacification. 25. Chronic dissection of the abdominal aorta with large infrarenal abdominal aortic aneurysm. 26. Polycystic kidney disease with right lower quadrant transplanted kidney. 27. Bilateral pleural effusion and consolidation with right middle lobe, right lower lobe consolidation. 28. Multiple hepatic cysts. 29. Right transplanted kidney hydronephrosis with bilateral renal cyst and polycystic kidney disease. 30. Abdominopelvic ascites. 31. Possible left atrial enlargement. 32. Recurrent lower gastrointestinal bleeding with acute blood loss anemia. 33. Questionable anorexia. 34. Hyperlipidemia. 35. Immune suppression state. 36. Aortic valve sclerosis. 37. Disseminated intravascular coagulation. 38. Thrombocytopenia. 39. Coagulopathy. PLAN: At this time, the patient needs clearance from Gastroenterology regarding discharge clearance. Apparently, the patient has been accepted to [facility] for subacute rehab. The patient is waiting for a CAT scan of the abdomen and pelvis and further GI clearance. The patient has been ordered repeat labs. Repeat CBC, platelet count, PT/PTT, CMP. CURRENT CONSULTATION: Cardiology, Gastroenterology, Hematology/Oncology, Nephrology, Surgery, Neurology. CURRENT MEDICATIONS: Lactate was 15 g every 48 hours, Humulin low-dose sliding scale coverage before meals and h.s., Lidoderm 5% patch to the affected area, Lipitor 10 mg daily, Lopressor 25 mg every 8 hours, Pepcid 40 mg h.s., Periactin 4 mg b.i.d., K-Phos rider was given yesterday, prednisone 5 mg daily, Protonix 40 mg daily, Rocaltrol 0.75 mcg Saturday, and Saturday, Tylenol p.r.n., thiamine 100 mg p.o. daily, Xopenex nebulizer 0.63 mg every 6 hours, Zetia 10 mg daily, Zofran 4 mg IV every 4 hours p.r.n. The patient has been ordered incentive spirometry, oxygen nasal cannula, out of bed to chair, KRYSTAL dhillon, SCDs, physical therapy, occupational therapy ordered. At this time, the patient needs Gastroenterology clearance prior to discharge to [facility] rehab. Dictated and electronically signed, not read. Mart Knox MD
--- NOTE | 2018-09-23 16:15 | PN ---
DATE: 09/23/2018 CARDIOLOGY FOLLOWUP SUBJECTIVE: The patient is comfortable. PHYSICAL EXAMINATION: VITAL SIGNS: Blood pressure 120/79, heart rate in the 90s. NECK: Negative JVD. LUNGS: Without rales. HEART: Reveals S1 and S2. EXTREMITIES: Without edema. LABORATORY DATA: Hemoglobin is 9.2. Chemistries, BUN and creatinine is unchanged. IMPRESSION: 1. No evidence for continued gastrointestinal bleed. 2. End-stage renal disease. 3. Aortic valve sclerosis. 4. History of abdominal aortic aneurysm. 5. Diabetes mellitus. Given these findings, the patient is hemodynamically stable. We will discontinue telemetry today. Carlos Shane MD
[2018-09-23 17:12] LABS: HEPATITIS B SURFACE AG Negative (NEGATIVE)
[2018-09-23 17:17] LABS: HEPATITIS B CORE AB NEGATIVE (NEGATIVE)
--- NOTE | 2018-09-23 19:48 | VASCULAR ---
PROCEDURE: Ultrasound and fluoroscopically placed right upper extremity PICC line. HISTORY: End-stage renal disease. GI bleed and sepsis. Limited IV access. Needs PICC line PHYSICIAN(S): Carlos Fulton MD. TECHNIQUE: The relative risks and indications of the procedure were explained to the patient and consent obtained. The patient was placed supine on the arteriogram table and the right arm prepped and draped in the usual sterile fashion. A tourniquet was applied to the right axilla. 1% Xylocaine was used to anesthetize the skin and soft tissues at the puncture site above the elbow. The right brachial vein was punctured under direct ultrasound guidance with a micropuncture set. A 0.018 guidewire was advanced centrally and used to measure the length to the SVC/RA junction. A 5 [place] single-lumen PICC line 42 cm long was advanced to the SVC/RA junction. The catheter was flushed and secured. The patient tolerated the procedure well. IMPRESSION: 1. Ultrasound and fluoroscopically placed right upper extremity PICC line. A 5 [place] single-lumen PICC line 42 cm long was advanced to the SVC/RA junction.
--- NOTE | 2018-09-23 21:21 | CP.PCM.PN ---
Subjective - Date & Time of Evaluation Date of Evaluation: 09/23/18 Time of Evaluation: 07:00 - Subjective Subjective: No abdominal pain, no fevers. Objective - Vital Signs/Intake and Output Vital Signs (last 24 hours): Temp Pulse Resp BP Pulse Ox 98.8 F 83 18 107/70 96 09/22/18 18:00 09/22/18 18:00 09/22/18 18:00 09/22/18 18:00 09/22/18 06:00 Intake and Output: 09/22/18 09/23/18 18:59 06:59 Intake Total 480 Output Total 2 Balance 478 - Medications Medications: Current Medications Acetaminophen (Tylenol 325mg Tab) 650 mg PO Q4H PRN PRN Reason: temp > 99.5F Last Admin: 09/22/18 13:42 Dose: 650 mg Acetaminophen (Tylenol 325mg Tab) 650 mg PO Q6 PRN PRN Reason: TEMP>=99.5F Last Admin: 09/21/18 22:10 Dose: 650 mg Acetaminophen (Tylenol 650 Mg Supp) 650 mg RC Q6H PRN PRN Reason: TEMP>=99.5F Atorvastatin Calcium (Lipitor) 10 mg PO DIN [facility] Last Admin: 09/22/18 18:33 Dose: 10 mg Calcitriol (Rocaltrol) 0.75 mcg PO TTS [facility] Last Admin: 09/20/18 12:54 Dose: 0.75 mcg Cyproheptadine HCl (Periactin) 4 mg PO BID [facility] Last Admin: 09/22/18 18:33 Dose: 4 mg Ezetimibe (Zetia) 10 mg PO DAILY [facility] Last Admin: 09/22/18 13:44 Dose: 10 mg Famotidine (Pepcid) 40 mg PO HS [facility] Last Admin: 09/21/18 22:09 Dose: 40 mg Insulin Human Regular (Humulin R Low) 0 units SC ACHS [facility]; Protocol Last Admin: 09/22/18 18:33 Dose: 2 u Lactulose (Enulose) 15 gm PO Q48H [facility] Levalbuterol HCl (Xopenex) 0.63 mg IH [id number] [facility] Last Admin: 09/22/18 13:27 Dose: Not Given Lidocaine (Lidoderm) 1 ea TD DAILY [facility] Last Admin: 09/22/18 13:46 Dose: 1 ea Metoprolol Tartrate (Lopressor) 25 mg PO Q8 [facility] Last Admin: 09/22/18 13:44 Dose: 25 mg Ondansetron HCl (Zofran Inj) 4 mg IVP Q4H PRN PRN Reason: Nausea/Vomiting Pantoprazole Sodium (Protonix Inj) 40 mg IVP DAILY [facility] Last Admin: 09/22/18 13:42 Dose: 40 mg Prednisone (Prednisone Tab) 5 mg PO BRK [facility] Last Admin: 09/22/18 13:43 Dose: 5 mg Thiamine HCl (Vitamin B1 Tab) 100 mg PO DAILY [facility] Last Admin: 09/22/18 13:44 Dose: 100 mg - Labs Labs: 09/22/18 06:00 09/22/18 06:00 PT 14.7 SECONDS (9.4-12.5) H 09/22/18 06:00 INR 1.30 09/22/18 06:00 APTT 34.0 Seconds (26.9-38.3) 09/22/18 06:00 - Constitutional Appears: Chronically Ill - Respiratory Exam Respiratory Exam: Decreased Breath Sounds - Cardiovascular Exam Cardiovascular Exam: +S1, +S2 - GI/Abdominal Exam GI & Abdominal Exam: Soft. absent: Tenderness Assessment and Plan - Assessment and Plan (Free Text) Plan: Assessment S/P treatment for Klebsiella bacteremia probably due to UTI, SUHAIL negative for valvular vegetations history of systemic inflammatory response syndrome, consider due to worsening renal failure with uremia, R/O sepsis due to right sided HCAP history of sepsis due to gram negative bacilli bacteremia on top of systemic viral illness with Influenza polycystic kidney disease S/P renal transplant in 2006 HTN abdominal aortic aneurysm with history of aortic dissection S/P aortic valve replacement dyslipidemia S/P bilateral inguinal hernia repair Plan S/P course of Rocephin will continue to monitor clinically off antibiotics since he is at risk for hospital-acquired infections
--- NOTE | 2018-09-23 21:51 | CP.PCM.PN ---
Subjective - Date & Time of Evaluation Date of Evaluation: 09/22/18 Time of Evaluation: 19:00 - Subjective Subjective: No complaints. Objective - Vital Signs/Intake and Output Vital Signs (last 24 hours): Temp Pulse Resp BP Pulse Ox 97.8 F 97 H 19 110/75 96 09/23/18 18:00 09/23/18 18:00 09/23/18 18:00 09/23/18 18:00 09/22/18 06:00 Intake and Output: 09/23/18 09/24/18 18:59 06:59 Intake Total 720 Output Total 420 Balance 300 - Medications Medications: Current Medications Acetaminophen (Tylenol 325mg Tab) 650 mg PO Q4H PRN PRN Reason: temp > 99.5F Last Admin: 09/22/18 13:42 Dose: 650 mg Acetaminophen (Tylenol 325mg Tab) 650 mg PO Q6 PRN PRN Reason: TEMP>=99.5F Last Admin: 09/21/18 22:10 Dose: 650 mg Acetaminophen (Tylenol 650 Mg Supp) 650 mg RC Q6H PRN PRN Reason: TEMP>=99.5F Atorvastatin Calcium (Lipitor) 10 mg PO DIN [facility] Last Admin: 09/23/18 18:15 Dose: 10 mg Calcitriol (Rocaltrol) 0.75 mcg PO TTS [facility] Last Admin: 09/23/18 11:24 Dose: 0.75 mcg Cyproheptadine HCl (Periactin) 4 mg PO BID [facility] Last Admin: 09/23/18 18:15 Dose: 4 mg Ezetimibe (Zetia) 10 mg PO DAILY [facility] Last Admin: 09/23/18 11:24 Dose: 10 mg Famotidine (Pepcid) 40 mg PO HS [facility] Last Admin: 09/22/18 23:23 Dose: 40 mg Insulin Human Regular (Humulin R Low) 0 units SC ACHS [facility]; Protocol Last Admin: 09/23/18 18:15 Dose: 2 u Lactulose (Enulose) 15 gm PO Q48H [facility] Last Admin: 09/23/18 08:30 Dose: Not Given Levalbuterol HCl (Xopenex) 0.63 mg IH [id number] [facility] Last Admin: 09/23/18 19:36 Dose: 0.63 mg Lidocaine (Lidoderm) 1 ea TD DAILY [facility] Last Admin: 09/23/18 11:30 Dose: Not Given Metoprolol Tartrate (Lopressor) 25 mg PO Q8 [facility] Last Admin: 09/23/18 14:10 Dose: 25 mg Ondansetron HCl (Zofran Inj) 4 mg IVP Q4H PRN PRN Reason: Nausea/Vomiting Pantoprazole Sodium (Protonix Inj) 40 mg IVP DAILY [facility] Last Admin: 09/23/18 11:25 Dose: 40 mg Prednisone (Prednisone Tab) 5 mg PO BRK [facility] Last Admin: 09/23/18 11:24 Dose: 5 mg Thiamine HCl (Vitamin B1 Tab) 100 mg PO DAILY [facility] Last Admin: 09/23/18 11:32 Dose: 100 mg - Labs Labs: 09/23/18 06:30 09/23/18 06:30 PT 14.4 SECONDS (9.4-12.5) H 09/23/18 06:30 INR 1.27 09/23/18 06:30 APTT 36.4 Seconds (26.9-38.3) 09/23/18 06:30 - Head Exam Head Exam: ATRAUMATIC - Eye Exam Eye Exam: Normal appearance - ENT Exam ENT Exam: Mucous Membranes Dry - Respiratory Exam Respiratory Exam: NORMAL BREATHING PATTERN - Cardiovascular Exam Cardiovascular Exam: +S1, +S2 - GI/Abdominal Exam GI & Abdominal Exam: Normal Bowel Sounds Assessment and Plan (1) DIC (disseminated intravascular coagulation) Assessment & Plan: fibrinogen plateued cont. treatment of acute illness cryopercipitate if fibrinogen < 50 Status: Acute (2) Thrombocytopenia Assessment & Plan: platelet count improved Status: Acute (3) Anemia Assessment & Plan: GI blood loss chronic disease, DIC anemia of CKD on MARK transfusion support PRN Status: Chronic (4) Coagulopathy Assessment & Plan: DIC nutritional component Status: Acute
--- NOTE | 2018-09-23 21:52 | CP.PCM.PN ---
Subjective - Date & Time of Evaluation Date of Evaluation: 09/23/18 Time of Evaluation: 19:00 - Subjective Subjective: No complaints. Objective - Vital Signs/Intake and Output Vital Signs (last 24 hours): Temp Pulse Resp BP Pulse Ox 97.8 F 97 H 19 110/75 96 09/23/18 18:00 09/23/18 18:00 09/23/18 18:00 09/23/18 18:00 09/22/18 06:00 Intake and Output: 09/23/18 09/24/18 18:59 06:59 Intake Total 720 Output Total 420 Balance 300 - Medications Medications: Current Medications Acetaminophen (Tylenol 325mg Tab) 650 mg PO Q4H PRN PRN Reason: temp > 99.5F Last Admin: 09/22/18 13:42 Dose: 650 mg Acetaminophen (Tylenol 325mg Tab) 650 mg PO Q6 PRN PRN Reason: TEMP>=99.5F Last Admin: 09/21/18 22:10 Dose: 650 mg Acetaminophen (Tylenol 650 Mg Supp) 650 mg RC Q6H PRN PRN Reason: TEMP>=99.5F Atorvastatin Calcium (Lipitor) 10 mg PO DIN [facility] Last Admin: 09/23/18 18:15 Dose: 10 mg Calcitriol (Rocaltrol) 0.75 mcg PO TTS [facility] Last Admin: 09/23/18 11:24 Dose: 0.75 mcg Cyproheptadine HCl (Periactin) 4 mg PO BID [facility] Last Admin: 09/23/18 18:15 Dose: 4 mg Ezetimibe (Zetia) 10 mg PO DAILY [facility] Last Admin: 09/23/18 11:24 Dose: 10 mg Famotidine (Pepcid) 40 mg PO HS [facility] Last Admin: 09/22/18 23:23 Dose: 40 mg Insulin Human Regular (Humulin R Low) 0 units SC ACHS [facility]; Protocol Last Admin: 09/23/18 18:15 Dose: 2 u Lactulose (Enulose) 15 gm PO Q48H [facility] Last Admin: 09/23/18 08:30 Dose: Not Given Levalbuterol HCl (Xopenex) 0.63 mg IH [id number] [facility] Last Admin: 09/23/18 19:36 Dose: 0.63 mg Lidocaine (Lidoderm) 1 ea TD DAILY [facility] Last Admin: 09/23/18 11:30 Dose: Not Given Metoprolol Tartrate (Lopressor) 25 mg PO Q8 [facility] Last Admin: 09/23/18 14:10 Dose: 25 mg Ondansetron HCl (Zofran Inj) 4 mg IVP Q4H PRN PRN Reason: Nausea/Vomiting Pantoprazole Sodium (Protonix Inj) 40 mg IVP DAILY [facility] Last Admin: 09/23/18 11:25 Dose: 40 mg Prednisone (Prednisone Tab) 5 mg PO BRK [facility] Last Admin: 09/23/18 11:24 Dose: 5 mg Thiamine HCl (Vitamin B1 Tab) 100 mg PO DAILY [facility] Last Admin: 09/23/18 11:32 Dose: 100 mg - Labs Labs: 09/23/18 06:30 09/23/18 06:30 PT 14.4 SECONDS (9.4-12.5) H 09/23/18 06:30 INR 1.27 09/23/18 06:30 APTT 36.4 Seconds (26.9-38.3) 09/23/18 06:30 - Head Exam Head Exam: ATRAUMATIC - Eye Exam Eye Exam: Normal appearance - ENT Exam ENT Exam: Mucous Membranes Dry - Respiratory Exam Respiratory Exam: NORMAL BREATHING PATTERN - Cardiovascular Exam Cardiovascular Exam: +S1, +S2 - GI/Abdominal Exam GI & Abdominal Exam: Normal Bowel Sounds Assessment and Plan (1) DIC (disseminated intravascular coagulation) Assessment & Plan: fibrinogen improved cont. treatment of acute illness cryopercipitate if fibrinogen < 50 Status: Acute (2) Thrombocytopenia Assessment & Plan: plt count improving Status: Acute (3) Anemia Assessment & Plan: GI blood loss chronic disease, DIC anemia of CKD on MARK transfusion support PRN Status: Chronic (4) Coagulopathy Assessment & Plan: DIC nutritional component Status: Acute
--- NOTE | 2018-09-24 00:24 | CP.PCM.PN ---
Subjective - Date & Time of Evaluation Date of Evaluation: 09/23/18 Time of Evaluation: 10:30 - Subjective Subjective: 67 yo M w/ pmh of htn, post renal transplant DM, s/p AVR, unrepaired large AAA, and ESRD on HD, admitted for GI bleed; Patient with BM overnight, non-bloody per nursing staff; denies any difficulty breathing; has been tolerating diet well; says he's urinating normal amount; Objective - Vital Signs/Intake and Output Vital Signs (last 24 hours): Temp Pulse Resp BP Pulse Ox 97.8 F 64 19 124/80 96 09/23/18 18:00 09/23/18 22:20 09/23/18 18:00 09/23/18 22:20 09/22/18 06:00 Intake and Output: 09/23/18 09/24/18 18:59 06:59 Intake Total 720 Output Total 420 Balance 300 - Medications Medications: Current Medications Acetaminophen (Tylenol 325mg Tab) 650 mg PO Q4H PRN PRN Reason: temp > 99.5F Last Admin: 09/22/18 13:42 Dose: 650 mg Acetaminophen (Tylenol 325mg Tab) 650 mg PO Q6 PRN PRN Reason: TEMP>=99.5F Last Admin: 09/21/18 22:10 Dose: 650 mg Acetaminophen (Tylenol 650 Mg Supp) 650 mg RC Q6H PRN PRN Reason: TEMP>=99.5F Atorvastatin Calcium (Lipitor) 10 mg PO DIN [facility] Last Admin: 09/23/18 18:15 Dose: 10 mg Calcitriol (Rocaltrol) 0.75 mcg PO TTS [facility] Last Admin: 09/23/18 11:24 Dose: 0.75 mcg Cyproheptadine HCl (Periactin) 4 mg PO BID [facility] Last Admin: 09/23/18 18:15 Dose: 4 mg Ezetimibe (Zetia) 10 mg PO DAILY [facility] Last Admin: 09/23/18 11:24 Dose: 10 mg Famotidine (Pepcid) 40 mg PO HS [facility] Last Admin: 09/23/18 22:20 Dose: 40 mg Insulin Human Regular (Humulin R Low) 0 units SC ACHS [facility]; Protocol Last Admin: 09/23/18 22:19 Dose: 2 u Lactulose (Enulose) 15 gm PO Q48H [facility] Last Admin: 09/23/18 08:30 Dose: Not Given Levalbuterol HCl (Xopenex) 0.63 mg IH [id number] [facility] Last Admin: 09/23/18 19:36 Dose: 0.63 mg Lidocaine (Lidoderm) 1 ea TD DAILY [facility] Last Admin: 09/23/18 11:30 Dose: Not Given Metoprolol Tartrate (Lopressor) 25 mg PO Q8 [facility] Last Admin: 09/23/18 22:20 Dose: 25 mg Ondansetron HCl (Zofran Inj) 4 mg IVP Q4H PRN PRN Reason: Nausea/Vomiting Pantoprazole Sodium (Protonix Inj) 40 mg IVP DAILY [facility] Last Admin: 09/23/18 11:25 Dose: 40 mg Prednisone (Prednisone Tab) 5 mg PO BRK [facility] Last Admin: 09/23/18 11:24 Dose: 5 mg Thiamine HCl (Vitamin B1 Tab) 100 mg PO DAILY [facility] Last Admin: 09/23/18 11:32 Dose: 100 mg - Labs Labs: 09/23/18 06:30 09/23/18 06:30 PT 14.4 SECONDS (9.4-12.5) H 09/23/18 06:30 INR 1.27 09/23/18 06:30 APTT 36.4 Seconds (26.9-38.3) 09/23/18 06:30 - Constitutional Appears: Non-toxic, No Acute Distress - Eye Exam Eye Exam: Normal appearance - ENT Exam ENT Exam: Mucous Membranes Moist - Respiratory Exam Respiratory Exam: Clear to Ausculation Bilateral. absent: Respiratory Distress - Cardiovascular Exam Cardiovascular Exam: RRR, +S1, +S2 - GI/Abdominal Exam GI & Abdominal Exam: Soft, Pulsatile Mass. absent: Distended - Extremities Exam Additional comments: no significant leg edema; - Neurological Exam Neurological Exam: Alert, Awake Additional comments: somewhat confused - Psychiatric Exam Psychiatric exam: Normal Mood. absent: Agitated - Skin Skin Exam: Warm. absent: Cyanosis Assessment and Plan (1) ESRD (end stage renal disease) Assessment & Plan: Stable electrolyte and volume status; will continue HD on MWF schedule per routine; Status: Chronic (2) Hypertensive CKD, ESRD on dialysis Assessment & Plan: BP controlled on metoprolol 25 mg q8h, continue same; Status: Chronic (3) GI bleed Assessment & Plan: Hgb relatively stable; s/p dose of aranesp yesterday; f/u with GI regarding further imaging; Status: Acute (4) Immunosuppression Assessment & Plan: Off tacrolimus; on prednisone 5 mg daily, will continue for now; Status: Chronic (5) Chronic kidney disease-mineral and bone disorder Assessment & Plan: Phos low, s/p IV replenishment yesterday; will continue calcitriol 0.75 mcg three times per week; Status: Chronic
[2018-09-24] MEDS ORDERED: Iohexol 240 (50 ml) ONE (01:14)
[2018-09-24] MEDS: Levalbuterol 0.63 MG/3 ML Inhal Soln UD IH SCH ×4 (01:31→19:39)
[2018-09-24 05:49] VITALS: O2SAT 94
[2018-09-24 07:28] LABS: BASO # 0.01 K/mm3 (0.0-2.0); BASO % 0.1 % (0.0-3.0); EOS % 0.5 % (1.5-5.0); LYMPH # 1.2 (1.2-3.4); LYMPH % 13.5 % (22.0-35.0); MEAN CELL VOLUME 84.7 fl (80.0-105.0); MEAN CORPUSCULAR HGB CONC 29.5 g/dl (31.0-37.0); MONO # 0.7 (0.1-0.6); MONO % 7.9 % (1.0-6.0); PLATELET COUNT 105 10^3/uL (120.0-450.0); RED CELL DISTRIBUTION WIDTH 20.8 % (11.5-14.5); WHITE BLOOD COUNT 8.7 10^3/uL (4.5-11.0)
[2018-09-24 07:34] LABS: INR 1.16; PARTIAL THROMBOPLASTIN TIME 32.3 Seconds (26.9-38.3); PROTHROMBIN TIME 13.1 SECONDS (9.4-12.5)
[2018-09-24 08:08] LABS: ALB/GLOB RATIO 0.8 (1.1-1.8); ALBUMIN 2.3 g/dL (3.0-4.8); BILIRUBIN,DIRECT 0.3 mg/dL (0.0-0.4); CALCIUM 8.3 mg/dL (8.4-10.5)
[2018-09-24 08:43] LABS: PLATELET COUNT MANUAL 130 K/mm3 (120-450)
[2018-09-24] MEDS: Insulin Reg-LOW-Coverage SC SCH ×3 (08:47→18:09)
--- NOTE | 2018-09-24 10:11 | CT ---
Date of service: 09/24/2018 PROCEDURE: CT Abdomen and Pelvis without intravenous contrast HISTORY: GI Bleed, large AAA, evaluate sigmoid colon COMPARISON: 09/15/2018 TECHNIQUE: Without contrast.. Contrast dose: Radiation dose: Total exam DLP = 281.21 mGy-cm. This CT exam was performed using one or more of the following dose reduction techniques: Automated exposure control, adjustment of the mA and/or kV according to patient size, and/or use of iterative reconstruction technique. FINDINGS: LOWER THORAX: Small pleural effusions LIVER: Unremarkable. No gross lesion or ductal dilatation. GALLBLADDER AND BILE DUCTS: Unremarkable. PANCREAS: Unremarkable. No gross lesion or ductal dilatation. SPLEEN: Unremarkable. ADRENALS: Unremarkable. No mass. KIDNEYS AND URETERS: Polycystic kidneys. Right lower quadrant transplant. VASCULATURE: There is a large infra-abdominal aortic aneurysm. This measures 7.8 x 9.2 cm.. Aortic calcifications large aneurysm left lower quadrant BOWEL: Moderate constipation ascending colon APPENDIX: Unremarkable. Normal appendix. PERITONEUM: Mesenteric edema and ascites. LYMPH NODES: Unremarkable. No enlarged lymph nodes. BLADDER: Unremarkable. REPRODUCTIVE: Unremarkable. BONES: No acute fracture. OTHER FINDINGS: None. IMPRESSION: No change from prior exam. No acute findings
--- NOTE | 2018-09-24 11:28 | PN ---
DATE: 09/24/2018 SUBJECTIVE: The patient is without complaints, resting comfortably. PHYSICAL EXAMINATION: VITAL SIGNS: Blood pressure 141/80, heart rate is stable. NECK: Negative JVD. LUNGS: No rales noted. HEART: Reveals S1, S2. EXTREMITIES: Without change. LABORATORY DATA: BUN and creatinine 42 and 2.1. Glucose is 161, hemoglobin is 9. IMPRESSION: 1. Gastrointestinal bleed which is stable. 2. Anemia. 3. End-stage renal disease. 4. History of aortic valve sclerosis. 5. History of abdominal aortic aneurysm. 6. Diabetes mellitus. PLAN: The patient is hemodynamically stable. Hemoglobin remained stable. Carlos Shane MD
--- NOTE | 2018-09-24 12:03 | CP.PCM.PN ---
Subjective - Date & Time of Evaluation Date of Evaluation: 09/24/18 Time of Evaluation: 12:01 - Subjective Subjective: Ginger Daniel, PGY2, GI progress note for Dr Cordova: Patient seen and examined at bedside. No acute events overnight. Patient reports 3 BMs within past 24 hrs, soft and brown, denies blood. Denies nausea, vomiting, abdominal pain. Patient went for CAT abd pelvis this AM, patient is due for dialysis in the afternoon. Objective - Vital Signs/Intake and Output Vital Signs (last 24 hours): Temp Pulse Resp BP Pulse Ox 98.9 F 80 20 141/88 94 L 09/24/18 05:48 09/24/18 06:43 09/24/18 05:48 09/24/18 06:43 09/24/18 05:48 Intake and Output: 09/24/18 09/24/18 06:59 18:59 Intake Total 1020 Output Total 421 Balance 599 - Medications Medications: Current Medications Acetaminophen (Tylenol 325mg Tab) 650 mg PO Q4H PRN PRN Reason: temp > 99.5F Last Admin: 09/22/18 13:42 Dose: 650 mg Acetaminophen (Tylenol 325mg Tab) 650 mg PO Q6 PRN PRN Reason: TEMP>=99.5F Last Admin: 09/21/18 22:10 Dose: 650 mg Acetaminophen (Tylenol 650 Mg Supp) 650 mg RC Q6H PRN PRN Reason: TEMP>=99.5F Atorvastatin Calcium (Lipitor) 10 mg PO DIN [facility] Last Admin: 09/23/18 18:15 Dose: 10 mg Calcitriol (Rocaltrol) 0.75 mcg PO TTS [facility] Last Admin: 09/23/18 11:24 Dose: 0.75 mcg Cyproheptadine HCl (Periactin) 4 mg PO BID [facility] Last Admin: 09/23/18 18:15 Dose: 4 mg Ezetimibe (Zetia) 10 mg PO DAILY [facility] Last Admin: 09/23/18 11:24 Dose: 10 mg Famotidine (Pepcid) 40 mg PO HS [facility] Last Admin: 09/23/18 22:20 Dose: 40 mg Insulin Human Regular (Humulin R Low) 0 units SC ACHS [facility]; Protocol Last Admin: 09/24/18 08:47 Dose: 1 u Lactulose (Enulose) 15 gm PO Q48H [facility] Last Admin: 09/23/18 08:30 Dose: Not Given Levalbuterol HCl (Xopenex) 0.63 mg IH [id number] [facility] Last Admin: 09/24/18 08:26 Dose: Not Given Lidocaine (Lidoderm) 1 ea TD DAILY [facility] Last Admin: 09/23/18 11:30 Dose: Not Given Metoprolol Tartrate (Lopressor) 25 mg PO Q8 [facility] Last Admin: 09/24/18 06:43 Dose: 25 mg Ondansetron HCl (Zofran Inj) 4 mg IVP Q4H PRN PRN Reason: Nausea/Vomiting Pantoprazole Sodium (Protonix Inj) 40 mg IVP DAILY [facility] Last Admin: 09/23/18 11:25 Dose: 40 mg Prednisone (Prednisone Tab) 5 mg PO BRK [facility] Last Admin: 09/24/18 08:47 Dose: 5 mg Thiamine HCl (Vitamin B1 Tab) 100 mg PO DAILY [facility] Last Admin: 09/23/18 11:32 Dose: 100 mg - Labs Labs: 09/24/18 06:45 09/24/18 06:45 PT 13.1 SECONDS (9.4-12.5) H 09/24/18 06:45 INR 1.16 09/24/18 06:45 APTT 32.3 Seconds (26.9-38.3) 09/24/18 06:45 - Additional Findings Additional findings: - Constitutional Appears: Non-toxic, Cachectic, Chronically Ill - Head Exam Head Exam: ATRAUMATIC, NORMOCEPHALIC - Eye Exam Eye Exam: EOMI, PERRL. absent: Conjunctival injection, Nystagmus, Scleral icterus Pupil Exam: NORMAL ACCOMODATION, PERRL. absent: Irregular, Miosis, Unequal - ENT Exam ENT Exam: Mucous Membranes Moist - Neck Exam Neck exam: Positive for: Full Rom - Respiratory Exam Respiratory Exam: Clear to Auscultation Bilateral, NORMAL BREATHING PATTERN. absent: Accessory Muscle Use, Rhonchi, Wheezes - Cardiovascular Exam Cardiovascular Exam: RRR, +S1, +S2, Systolic Murmur - GI/Abdominal Exam GI & Abdominal Exam: Normal Bowel Sounds, Soft. absent: Distended, Firm, Rebound, Rigid - Extremities Exam Extremities exam: Positive for: normal inspection. Negative for: calf tenderness, pedal edema - Back Exam Back exam: NORMAL INSPECTION - Neurological Exam Neurological exam: Alert, Oriented x3 - Psychiatric Exam Psychiatric exam: Normal Affect, Normal Mood - Skin Skin Exam: Normal Color, Warm Assessment and Plan - Assessment and Plan (Free Text) Assessment: # GI bleed, 2/2 stercoral ulcerations 2/2 chronic constipation # Microcytic anemia # Thrombocytopenia # Klebsiella Bacteremia 2/2 UTI # Polycystic Kidney disease s/p right renal allograft # ESRD on HD MWF # HTN # Severe Aortic Stenosis with hx of prior AV replacement (not candidate for TAVR as of 2018) # unrepaired large infrarenal AAA - CT abd pelvis with PO contrast today showed no bleed. Moderate constipation in ascending colon. Will continue with bowel regimen and prevent constipation. - Hgb remains stable. Will continue to monitor closely. - EGD 09/16 showed no bleeding source. Flex sigmoidoscopy showed multiple ulcers in rectum, likely stercoral ulcerations. The endoscope was advanced all the way up to 30 cm, no blood was noticed in the sigmoid. Brown stool noticed. - continue with renal, low carb consistent soft diet - Cleared from GI standpoint for discharge. - further recs per Dr Cordova. Case seen and discussed with Dr Cordova.
[2018-09-24 12:56] VITALS: BP 124/84; PULSE 86; RESP 18; TEMP 99.4
--- NOTE | 2018-09-24 15:42 | CP.PCM.DIS ---
Provider - Provider Date of Admission: 09/14/18 19:38 Attending physician: Mart Knox MD Primary care physician: NO PRIMARY CARE PROVIDER Consults: 09/14/18 19:00 Cardiology Consult Stat Comment: Consulting Provider: Carlos Shane Consulting Physician: Carlos Shane Reason for Consult: r/o vegetations Gastroenterology Consult Stat Comment: Consulting Provider: Mac Cordova V Consulting Physician: Mac Cordova V Reason for Consult: Bright red blood per rectum, bloody BM Infectious Disease Consult Stat Comment: Consulting Provider: Bishop Squires Consulting Physician: Bishop Squires Reason for Consult: uti Nephrology Consult Stat Comment: Consulting Provider: Dandy Wheeler Consulting Physician: Dandy Wheeler Reason for Consult: renal dialysis 09/14/18 19:18 Hematology Oncology Consult Stat Comment: Consulting Provider: Mike Leigh Consulting Physician: Mike Leigh Reason for Consult: thrombocytopenia 09/15/18 06:39 Nursing Referral for Palliative Care Routine Comment: Physician Instructions: Reason For Exam: Please evaluate pt as per dx and PMHx. Social Work Referral Routine Comment: Pt lives at home with family; frail/ debilitated. Physician Instructions: Reason For Exam: Please evaluate pt. 09/15/18 07:00 Case Management Referral Routine Comment: Physician Instructions: Reason For Exam: Please evaluate pt. Reason for Referral: Discharge Planning 09/15/18 07:52 General Surgery Consult Routine Comment: Consulting Provider: Jay Melendez Consulting Physician: Jay Melendez Reason for Consult: GI bleeding, severe chronic AAA 09/16/18 09:57 Neurology Consult Routine Comment: Consulting Provider: Kenny Segura Consulting Physician: Kenny Segura Reason for Consult: AMS 09/22/18 08:45 TCU [Evaluation for TRCU] DAILY Comment: TCU Physician Instructions: TCU Reason For Exam: TCU 09/23/18 08:45 TCU [Evaluation for TRCU] DAILY Comment: TCU Physician Instructions: TCU Reason For Exam: TCU 09/24/18 08:45 TCU [Evaluation for TRCU] DAILY Comment: TCU Physician Instructions: TCU Reason For Exam: TCU 09/25/18 08:45 TCU [Evaluation for TRCU] DAILY Comment: TCU Physician Instructions: TCU Reason For Exam: TCU 09/26/18 08:45 TCU [Evaluation for TRCU] DAILY Comment: TCU Physician Instructions: TCU Reason For Exam: TCU 09/27/18 08:45 TCU [Evaluation for TRCU] DAILY Comment: TCU Physician Instructions: TCU Reason For Exam: TCU 09/28/18 08:45 TCU [Evaluation for TRCU] DAILY Comment: TCU Physician Instructions: TCU Reason For Exam: TCU 09/29/18 08:45 TCU [Evaluation for TRCU] DAILY Comment: TCU Physician Instructions: TCU Reason For Exam: TCU 09/30/18 08:45 TCU [Evaluation for TRCU] DAILY Comment: TCU Physician Instructions: TCU Reason For Exam: TCU 10/01/18 08:45 TCU [Evaluation for TRCU] DAILY Comment: TCU Physician Instructions: TCU Reason For Exam: TCU 10/02/18 08:45 TCU [Evaluation for TRCU] DAILY Comment: TCU Physician Instructions: TCU Reason For Exam: TCU Time Spent in preparation of Discharge (in minutes): 40 Diagnosis - Discharge Diagnosis (1) Stercoral ulcer of rectum Status: Acute Hospital Course - Lab Results Lab Results: Micro Results 09/14/18 17:07 Blood Blood Culture - Final NO GROWTH AFTER 5 DAYS 09/14/18 17:07 Blood Gram Stain - Final TEST NOT PERFORMED 09/14/18 16:37 Blood Blood Culture - Final NO GROWTH AFTER 5 DAYS 09/14/18 16:37 Blood Gram Stain - Final TEST NOT PERFORMED 09/14/18 22:00 Naris MRSA Culture (Admit) - Final MRSA NOT DETECTED Most Recent Lab Values WBC 8.7 10^3/uL (4.5-11.0) 09/24/18 06:45 RBC 3.60 10^6/uL (3.5-6.1) 09/24/18 06:45 Hgb 9.0 g/dL (14.0-18.0) L 09/24/18 06:45 Hct 30.5 % (42.0-52.0) L 09/24/18 06:45 MCV 84.7 fl (80.0-105.0) 09/24/18 06:45 MCH 25.0 pg (25.0-35.0) 09/24/18 06:45 MCHC 29.5 g/dl (31.0-37.0) L 09/24/18 06:45 RDW 20.8 % (11.5-14.5) H 09/24/18 06:45 Plt Count 105 10^3/uL (120.0-450.0) L 09/24/18 06:45 Manual Plt Count 130 K/mm3 (120-450) 09/24/18 06:45 MPV 10.5 fl (7.0-11.0) 09/23/18 06:30 Neut % (Auto) 78.0 % (50.0-68.0) H 09/24/18 06:45 Lymph % (Auto) 13.5 % (22.0-35.0) L 09/24/18 06:45 [place] % (Auto) 7.9 % (1.0-6.0) H 09/24/18 06:45 Eos % (Auto) 0.5 % (1.5-5.0) L 09/24/18 06:45 Baso % (Auto) 0.1 % (0.0-3.0) 09/24/18 06:45 Lymph # (Auto) 1.2 (1.2-3.4) 09/24/18 06:45 [place] # (Auto) 0.7 (0.1-0.6) H 09/24/18 06:45 Eos # (Auto) 0.0 (0.0-0.7) 09/24/18 06:45 Baso # (Auto) 0.01 K/mm3 (0.0-2.0) 09/24/18 06:45 Absolute Neuts (auto) 6.82 (1.4-6.5) H 09/24/18 06:45 Neutrophils % (Manual) 89 % (50.0-70.0) H 09/14/18 16:30 Lymphocytes % (Manual) 6 % (22.0-35.0) L 09/14/18 16:30 Monocytes % (Manual) 5 % (1.0-6.0) 09/14/18 16:30 Toxic Granulation 1+ 09/14/18 16:30 Platelet Evaluation Low (NORMAL) 09/15/18 07:00 Hypochromasia 1+ 09/14/18 16:30 Rouleaux 2+ 09/14/18 16:30 PT 13.1 SECONDS (9.4-12.5) H 09/24/18 06:45 INR 1.16 09/24/18 06:45 APTT 32.3 Seconds (26.9-38.3) 09/24/18 06:45 Fibrinogen 133 mg/dl (200-400) L 09/24/18 06:45 Fibrin Degrad Products >40 ug/ml (< 10 ug/mL) 09/16/18 06:30 D-Dimer, Quantitative 4489 ng/mlDDU (0-243) H 09/16/18 07:05 pO2 49 mm/Hg (30-55) 09/15/18 00:10 VBG pH 7.34 (7.32-7.43) 09/15/18 00:10 VBG pCO2 55.0 (40-60) 09/15/18 00:10 VBG HCO3 29.7 mmol/l (21-28) H 09/15/18 00:10 VBG Total CO2 31.4 mmol.L (22-28) H 09/15/18 00:10 VBG O2 Sat (Calc) 82.2 % (40-65) H 09/15/18 00:10 VBG Base Excess 2.6 mmol/L (0.0-2.0) H 09/15/18 00:10 VBG Potassium 4.1 mmol/L (3.6-5.2) 09/15/18 00:10 Sodium 142.0 mmol/L (132-148) 09/15/18 00:10 Chloride 104.0 mmol/L (98-107) 09/15/18 00:10 Glucose 281 mg/dl (75-110) H 09/15/18 00:10 Lactate 2.9 mmol/L (0.7-2.1) H 09/15/18 00:10 FiO2 21.0 % 09/15/18 00:10 Crit Value Called To Gary craig advisory intern 09/15/18 00:10 Crit Value Called By Soraida 09/15/18 00:10 Blood Gas Notified Time 33 09/15/18 00:10 Sodium 142 mmol/L (132-148) 09/24/18 06:45 Potassium 4.0 mmol/L (3.6-5.0) 09/24/18 06:45 Chloride 110 mmol/L (98-107) H 09/24/18 06:45 Carbon Dioxide 26 mmol/L (21-33) 09/24/18 06:45 Anion Gap 10 (10-20) 09/24/18 06:45 BUN 42 mg/dL (7-21) H 09/24/18 06:45 Creatinine 2.1 mg/dl (0.8-1.5) H 09/24/18 06:45 Est GFR ( Amer) 39 09/24/18 06:45 Est GFR (Non-Af Amer) 32 09/24/18 06:45 POC Glucose (mg/dL) 184 mg/dL (65-110) H 09/24/18 11:42 Random Glucose 161 mg/dL (70-110) H 09/24/18 06:45 Calcium 8.3 mg/dL (8.4-10.5) L 09/24/18 06:45 Phosphorus 2.3 mg/dL (2.5-4.5) L 09/24/18 06:45 Magnesium 1.8 mg/dL (1.7-2.2) 09/24/18 06:45 Total Bilirubin 0.4 mg/dL (0.2-1.3) 09/24/18 06:45 Direct Bilirubin 0.3 mg/dL (0.0-0.4) 09/24/18 06:45 AST 56 U/L (17-59) 09/24/18 06:45 ALT 54 U/L (7-56) 09/24/18 06:45 Alkaline Phosphatase 171 U/L (38-126) H 09/24/18 06:45 Ammonia < 9 umol/L (9-33) L 09/15/18 00:10 Troponin I 0.02 ng/mL D 09/15/18 07:00 Total Protein 5.3 g/dL (5.8-8.3) L 09/24/18 06:45 Albumin 2.3 g/dL (3.0-4.8) L 09/24/18 06:45 Globulin 3.0 gm/dL 09/24/18 06:45 Albumin/Globulin Ratio 0.8 (1.1-1.8) L 09/24/18 06:45 Venous Blood Potassium 4.1 mmol/L (3.6-5.2) 09/15/18 00:10 Urine Color Yellow (YELLOW) 09/15/18 17:15 Urine Appearance Clear (CLEAR) 09/15/18 17:15 Urine pH 6.5 (4.7-8.0) 09/15/18 17:15 Ur Specific [place] 1.020 (1.005-1.035) 09/15/18 17:15 Urine Protein 100 mg/dL (<30 mg/dL) H 09/15/18 17:15 Urine Glucose (UA) 250 mg/dL (NEGATIVE) H 09/15/18 17:15 Urine Ketones Negative mg/dL (NEGATIVE) 09/15/18 17:15 Urine Blood Negative (NEGATIVE) 09/15/18 17:15 Urine Nitrate Negative (NEGATIVE) 09/15/18 17:15 Urine Bilirubin Negative (NEGATIVE) 09/15/18 17:15 Urine Urobilinogen 0.2 E.U./dL (<1 E.U./dL) 09/15/18 17:15 Ur Leukocyte Esterase Trace Jackie/uL (NEGATIVE) H 09/15/18 17:15 Urine RBC TEST NOT PERFORMED 09/15/18 17:15 Urine WBC 2 - 5 /hpf (0-6) 09/15/18 17:15 Ur Epithelial Cells 6 - 8 /hpf (0-5) H 09/15/18 17:15 Hep Bs Antigen Negative (NEGATIVE) 09/23/18 13:08 Hep Bs Antibody Positive (NEGATIVE) 09/23/18 13:08 Hep Bs Antibody, Quant 97 mIU/mL (>or=10) 09/23/18 13:08 Hep B Core Total Ab Non reactive (Non Reactive) 09/23/18 13:08 Hep B Core IgM Ab Negative (NEGATIVE) 09/23/18 13:08 Blood Type O POSITIVE 09/21/18 00:15 Antibody Screen Negative 09/21/18 00:15 Crossmatch See Detail 09/21/18 00:15 BBK History Checked Patient has bt 09/21/18 00:15 - Hospital Course Hospital Course: 67 year old male with a past medical history significant for ADPKD s/p renal allograft (2006), ESRD on HD MWF, post-transplant DM2, HTN, severe , and unrepaired infrarenal AAA who was admitted for lethargy and persistent diarrhea and transferred to TCU for physical rehabilitation. [employer] ATTENDANT was called after nurse found patient to have large amounts of hematochezia, and patient was transferred to medical floors for management. Bleeding scan showed no active bleeding, and CTA abd/pelvis showed chronic dissection of abdominal aorta, patent celiac and SMA, large aneurysm extending into pelvis (7.8x9.2 cm) and no evidence of aortic fistula. Patient underwent EGD and flex-sig with Dr. Cordova that showed no esophageal/gastric cause of bleeding but was positive for brown stools with stercoral ulcerations. hospital course was complicated by DIC, which resolved during hospital course. In total, 3u pRBCs, 1u FFP and 3u plts were transfused during hospital stay. A PICC line was placed in E due to difficulty w/ IV access. Patient's bowel movements improved and became less bloody. GI was following the patient and cleared him for discharge. He is being discharged to [facility]. Discharge Exam - Head Exam Head Exam: ATRAUMATIC, NORMAL INSPECTION - Eye Exam Eye Exam: EOMI, Normal appearance - ENT Exam ENT Exam: Mucous Membranes Moist, Normal Exam - Neck Exam Neck exam: Full Rom, Normal Inspection - Respiratory Exam Respiratory Exam: NORMAL BREATHING PATTERN. absent: Respiratory Distress - Cardiovascular Exam Cardiovascular Exam: RRR, +S1, +S2, Systolic Murmur - GI/Abdominal Exam GI & Abdominal Exam: Normal Bowel Sounds, Soft. absent: Tenderness - Neurological Exam Neurological exam: Alert, Oriented x3 - Skin Skin Exam: Intact, Warm Discharge Plan - Discharge Medications Prescriptions: Insulin Human NPH [Humulin N] 5 unit SQ ACBD #10 ml - Follow Up Plan Condition: STABLE Disposition: REHAB FACILITY/REHAB UNIT Instructions: Gastrointestinal Bleeding, Pneumonia, Adult (DC) Additional Instructions: MAY DISCHARGE TO [facility] UNDER SERVICE, AFTER CLEARED BY GASTROENTEROLOGY DISCHARGE MEDS PER AUG OF TODAY FOLLOW -NEPHROLOGY FOR DIALYSIS Referrals: Mart Knox MD [Staff Provider] -
[2018-09-24] MEDS: Lidocaine 5% Patch TD SCH (18:22)
--- NOTE | 2018-09-24 20:42 | CP.PCM.PN ---
Objective - Vital Signs/Intake and Output Vital Signs (last 24 hours): Temp Pulse Resp BP Pulse Ox 99.4 F 86 18 124/84 94 L 09/24/18 12:00 09/24/18 12:00 09/24/18 12:00 09/24/18 12:00 09/24/18 05:48 Intake and Output: 09/24/18 09/25/18 18:59 06:59 Intake Total 960 Output Total 300 Balance 660 - Medications Medications: Current Medications Acetaminophen (Tylenol 325mg Tab) 650 mg PO Q4H PRN PRN Reason: temp > 99.5F Last Admin: 09/22/18 13:42 Dose: 650 mg Acetaminophen (Tylenol 325mg Tab) 650 mg PO Q6 PRN PRN Reason: TEMP>=99.5F Last Admin: 09/21/18 22:10 Dose: 650 mg Acetaminophen (Tylenol 650 Mg Supp) 650 mg RC Q6H PRN PRN Reason: TEMP>=99.5F Atorvastatin Calcium (Lipitor) 10 mg PO DIN [facility] Last Admin: 09/24/18 18:20 Dose: 10 mg Calcitriol (Rocaltrol) 0.75 mcg PO TTS [facility] Last Admin: 09/23/18 11:24 Dose: 0.75 mcg Cyproheptadine HCl (Periactin) 4 mg PO BID [facility] Last Admin: 09/24/18 18:20 Dose: 4 mg Ezetimibe (Zetia) 10 mg PO DAILY [facility] Last Admin: 09/24/18 18:21 Dose: 10 mg Famotidine (Pepcid) 40 mg PO HS [facility] Last Admin: 09/23/18 22:20 Dose: 40 mg Insulin Human Regular (Humulin R Low) 0 units SC ACHS [facility]; Protocol Last Admin: 09/24/18 18:09 Dose: Not Given Lactulose (Enulose) 15 gm PO Q48H [facility] Last Admin: 09/23/18 08:30 Dose: Not Given Levalbuterol HCl (Xopenex) 0.63 mg IH [id number] [facility] Last Admin: 09/24/18 19:39 Dose: Not Given Lidocaine (Lidoderm) 1 ea TD DAILY [facility] Last Admin: 09/24/18 18:22 Dose: 1 ea Metoprolol Tartrate (Lopressor) 25 mg PO Q8 [facility] Last Admin: 09/24/18 18:17 Dose: Not Given Ondansetron HCl (Zofran Inj) 4 mg IVP Q4H PRN PRN Reason: Nausea/Vomiting Pantoprazole Sodium (Protonix Ec Tab) 40 mg PO ACB [place] Prednisone (Prednisone Tab) 5 mg PO BRK [facility] Last Admin: 09/24/18 08:47 Dose: 5 mg Thiamine HCl (Vitamin B1 Tab) 100 mg PO DAILY [facility] Last Admin: 09/24/18 18:21 Dose: 100 mg - Labs Labs: 09/24/18 06:45 09/24/18 06:45 PT 13.1 SECONDS (9.4-12.5) H 09/24/18 06:45 INR 1.16 09/24/18 06:45 APTT 32.3 Seconds (26.9-38.3) 09/24/18 06:45 Assessment and Plan (1) ESRD (end stage renal disease) Status: Chronic (2) Hypertensive CKD, ESRD on dialysis Status: Chronic (3) GI bleed Status: Acute (4) Immunosuppression Status: Chronic (5) Chronic kidney disease-mineral and bone disorder Status: Chronic
[2018-09-25] MEDS ORDERED: Pantoprazole 40 mg EC Tab PO SCH (07:30)
--- NOTE | 2018-09-25 08:14 | DS ---
FINAL PROGRESS NOTE AND DISCHARGE SUMMARY HISTORY OF PRESENT ILLNESS: The patient is seen in room 277, bed 2. The patient is lying in the bed comfortable in no distress. PHYSICAL EXAMINATION: VITAL SIGNS: Telemetry shows sinus rhythm. T-max 98.9, heart rate 80, blood pressure 141/88, respirations 20, and O2 sat 94%-96%. The patient's vital signs as dictated above. HEENT: The patient's head; normocephalic and atraumatic. HEENT examination shows pinkish pale conjunctivae. Anicteric sclerae. No oropharyngeal lesion. NECK: No neck rigidity. Soft carotid bruit. CHEST: Shows median sternotomy surgical scar. LUNGS: Show questionable occasional rhonchi, right more than the left. CARDIOVASCULAR: S1 and S2, regular rhythm. Positive systolic murmur left sternal border, right second intercostal space, left second intercostal space. Positive median sternotomy surgical scar. ABDOMEN: Soft. Positive bowel sounds. Positive midabdominal pulsation of the abdominal aortic aneurysm. GENITALIA: Male. RECTAL: Deferred. EXTREMITIES: Positive right upper extremity PICC line noted, which was placed yesterday, positive left upper extremity AV fistula. MUSCULOSKELETAL: Shows a body mass index of 14.8. NEUROLOGIC: Gait examination is not tested. The patient is alert, awake, responsive, is able to move upper and lower extremity without assistance. DIAGNOSTIC DATA: On 09/24/2018; WBC 8.7, hemoglobin and hematocrit 9 and 30.5, platelet 130, and granulocytes 78% segs. PT and PTT 13.1 and 32.3 and fibrinogen 133. Sodium 142, potassium 4, chloride 110, CO2 of 26, anion gap 10, BUN 42, creatinine 2.1, GFR 32, glucose 169 and 161, calcium 8.3, phosphorus 2.3, magnesium 1.8, alk phos 171, total protein 5.3, and albumin 2.3. MRSA nondetected. Blood cultures no growth. The patient received 3 units of PRBC, 1 unit of FFP, and 3 units of platelets. FINAL IMPRESSION, PLAN, AND DISCHARGE DIAGNOSES: 1. Recurrent lower gastrointestinal bleeding with bright red blood per rectum. 2. Hypovolemic hypotensive hemorrhagic shock. 3. Status post packed red blood cell transfusion x3, status post fresh frozen plasma transfusion x1 and platelet transfusion x3. 4. Tachycardia. 5. Status post hypotension. 6. History of hypertension. 7. Leukocytosis. 8. Granulocytosis. 9. Acute blood loss anemia secondary to lower gastrointestinal bleeding. 10. Thrombocytopenia. 11. Disseminated intravascular coagulation with coagulopathy and hypofibrinogenemia. 12. Lactic acidosis. 13. Hypokalemia. 14. Hypophosphatemia. 15. Mild protein malnutrition and hypoalbuminemia. 16. End-stage renal disease hemodialysis dependent via the left upper extremity arteriovenous fistula. 17. Poor IV access, status post right upper extremity peripherally inserted central catheter line placement. 18. Proteinuria. 19. Glycosuria. 20. Pyuria. 21. Klebsiella pneumoniae bacteremia sepsis and Klebsiella pneumoniae urinary tract infection. 22. Bilateral pleural effusion, small. 23. Polycystic kidney with right lower quadrant transplanted kidney. 24. Enlarged infrarenal abdominal aortic aneurysm 7.8 x 9.2 cm with aortic calcification and the left lower quadrant. 25. Ascending colon constipation. 26. Mesenteric edema and ascites. 27. Elevated right hemidiaphragm. 28. Bilateral pleural effusion. 29. Cardiomegaly. 30. Prosthetic aortic valve replacement. 31. Left upper extremity arteriovenous fistula focal aneurysmal dilatation. 32. Status post right upper extremity peripherally inserted central catheter line placement secondary to poor intravenous access. 33. Disseminated intravascular coagulation. 34. Anemia. 35. Coagulopathy. 36. Gait dysfunction. 37. Deconditioning. 38. Uncontrolled insulin-requiring diabetes mellitus with hyperglycemia and elevated hemoglobin A1c. 39. Hyperlipidemia. 40. Anorexia. 41. Cachexia. Plan at this time, the patient will be considered for discharge to subacute rehab once cleared by all subspecialty especially Gastroenterology. The patient needs GI clearance for discharge to subacute rehab. CURRENT CONSULTATIONS: 1. Cardiology. 2. Gastroenterology. 3. Hematology/Oncology. 4. Infectious Disease. 5. Nephrology. 6. Surgery. Mart Knox MD
--- NOTE | 2018-09-25 20:35 | CP.PCM.PN ---
Subjective - Date & Time of Evaluation Date of Evaluation: 09/24/18 Time of Evaluation: 13:00 - Subjective Subjective: No complaints. Objective - Vital Signs/Intake and Output Vital Signs (last 24 hours): Temp Pulse Resp BP Pulse Ox 99.4 F 86 18 124/84 94 L 09/24/18 12:00 09/24/18 12:00 09/24/18 12:00 09/24/18 12:00 09/24/18 05:48 - Labs Labs: 09/24/18 06:45 09/24/18 06:45 PT 13.1 SECONDS (9.4-12.5) H 09/24/18 06:45 INR 1.16 09/24/18 06:45 APTT 32.3 Seconds (26.9-38.3) 09/24/18 06:45 - Head Exam Head Exam: ATRAUMATIC - Eye Exam Eye Exam: Normal appearance - ENT Exam ENT Exam: Mucous Membranes Dry - Respiratory Exam Respiratory Exam: Decreased Breath Sounds - Cardiovascular Exam Cardiovascular Exam: +S1, +S2 - GI/Abdominal Exam GI & Abdominal Exam: Normal Bowel Sounds Assessment and Plan (1) DIC (disseminated intravascular coagulation) Assessment & Plan: resolved Status: Acute (2) Thrombocytopenia Assessment & Plan: improving Status: Acute (3) Anemia Assessment & Plan: anemia of chronic disease and renal disease MARK per renal Status: Chronic (4) Coagulopathy Assessment & Plan: nutritional resolved DIC Status: Acute
--- NOTE | 2018-09-29 10:10 | DS ---
The patient's current discharge medications are lactulose 15 g every 48 hours, Humulin low-dose sliding scale coverage a.c. and at bedtime, Lidoderm 5% patch to the affected area, Lipitor 10 mg daily, Lopressor 25 mg p.o. every 8 hours, Pepcid 40 mg at bedtime, Periactin 4 mg twice a day, prednisone 5 mg daily, Protonix 40 mg IV p.o. daily, Rocaltrol 0.75 mcg Saturday, , and Saturday, Tylenol suppository p.o. p.r.n., thiamine 100 mg daily, Xopenex nebulizer 0.63 mg every 6 hours, Zetia 10 mg daily, and Zofran 4 mg IV every 4 hours p.r.n. As mentioned, the patient is awaiting clearance by Gastroenterology for discharge to subacute rehab. During this hospitalization, the patient and the patient's son has been extensively explained about the patient's condition, overall guarded to poor prognosis, complicated medical history with the patient and the patient's son understand and acknowledges and all questions concerned have been answered. Time spent in the discharge process more than 45 minutes. Dictated and electronically signed, not read. Mart Knox MD
== END 2018-09-24 22:33 | DRG 393 ==
LOC: ED 15:43 → ERH 19:38 → CCU 22:04 → 2RSO 09-19 19:27
PROVIDERS: ADMIT Internal Medicine; ATTEND Internal Medicine
PROC: 05HM33Z Insertion of Infusion Device into Right Internal Jugular Vein, Percutaneous Approach (ICD-10-PCS; 2018-09-15)
PROC: B543ZZA Ultrasonography of Right Jugular Veins, Guidance (ICD-10-PCS; 2018-09-15)
PROC: 30233K1 Transfusion of Nonautologous Frozen Plasma into Peripheral Vein, Percutaneous Approach (ICD-10-PCS; 2018-09-15)
PROC: 30233R1 Transfusion of Nonautologous Platelets into Peripheral Vein, Percutaneous Approach (ICD-10-PCS; 2018-09-15)
PROC: 06HM33Z Insertion of Infusion Device into Right Femoral Vein, Percutaneous Approach (ICD-10-PCS; 2018-09-16)
PROC: B54BZZA Ultrasonography of Right Lower Extremity Veins, Guidance (ICD-10-PCS; 2018-09-16)
PROC: 30233N1 Transfusion of Nonautologous Red Blood Cells into Peripheral Vein, Percutaneous Approach (ICD-10-PCS; 2018-09-16)
PROC: 5A1D70Z Performance of Urinary Filtration, Intermittent, Less than 6 Hours Per Day (ICD-10-PCS; 2018-09-16)
PROC: 0DJD8ZZ Inspection of Lower Intestinal Tract, Via Natural or Artificial Opening Endoscopic (ICD-10-PCS; principal; 2018-09-16 17:18)
PROC: 0DJ08ZZ Inspection of Upper Intestinal Tract, Via Natural or Artificial Opening Endoscopic (ICD-10-PCS; 2018-09-16 17:18)
PROC: 5A1D70Z Performance of Urinary Filtration, Intermittent, Less than 6 Hours Per Day (ICD-10-PCS; 2018-09-18)
PROC: 5A1D70Z Performance of Urinary Filtration, Intermittent, Less than 6 Hours Per Day (ICD-10-PCS; 2018-09-20)
PROC: 5A1D70Z Performance of Urinary Filtration, Intermittent, Less than 6 Hours Per Day (ICD-10-PCS; 2018-09-22)
PROC: 02HV33Z Insertion of Infusion Device into Superior Vena Cava, Percutaneous Approach (ICD-10-PCS; 2018-09-23)
PROC: B54MZZA Ultrasonography of Right Upper Extremity Veins, Guidance (ICD-10-PCS; 2018-09-23)
DX: K62.6 Ulcer of anus and rectum (principal); N18.6 End stage renal disease; R57.8 Other shock; G92 Toxic encephalopathy; I71.02 Dissection of abdominal aorta; D65 Disseminated intravascular coagulation [defibrination syndrome]; J18.1 Lobar pneumonia, unspecified organism; E43 Unspecified severe protein-calorie malnutrition; K62.5 Hemorrhage of anus and rectum; N39.0 Urinary tract infection, site not specified; D62 Acute posthemorrhagic anemia; I13.2 Hypertensive heart and chronic kidney disease with heart failure and with stage 5 chronic kidney disease, or end stage renal disease; I50.32 Chronic diastolic (congestive) heart failure; E87.2 Acidosis; J98.11 Atelectasis; N25.81 Secondary hyperparathyroidism of renal origin; I12.0 Hypertensive chronic kidney disease with stage 5 chronic kidney disease or end stage renal disease; R78.81 Bacteremia; Q61.2 Polycystic kidney, adult type; Z94.0 Kidney transplant status; R64 Cachexia; Z68.1 Body mass index [BMI] 19.9 or less, adult; E11.22 Type 2 diabetes mellitus with diabetic chronic kidney disease; D63.1 Anemia in chronic kidney disease; E86.1 Hypovolemia; R62.7 Adult failure to thrive; E11.65 Type 2 diabetes mellitus with hyperglycemia; K29.70 Gastritis, unspecified, without bleeding; K57.50 Diverticulosis of both small and large intestine without perforation or abscess without bleeding; E83.39 Other disorders of phosphorus metabolism; E87.6 Hypokalemia; E78.5 Hyperlipidemia, unspecified; N25.0 Renal osteodystrophy; I25.10 Atherosclerotic heart disease of native coronary artery without angina pectoris; I27.20 Pulmonary hypertension, unspecified; K59.09 Other constipation; B96.1 Klebsiella pneumoniae [K. pneumoniae] as the cause of diseases classified elsewhere; K76.89 Other specified diseases of liver; I35.0 Nonrheumatic aortic (valve) stenosis; Z95.3 Presence of xenogenic heart valve; Z99.2 Dependence on renal dialysis; Z87.891 Personal history of nicotine dependence; Z79.4 Long term (current) use of insulin; Z78.1 Physical restraint status